=== PATIENT | female | born 1980 | race Caucasian/White ===

== ENCOUNTER 2016-02-28 21:41 | Emergency (ER) | payer OTHER ==
--- NOTE | 2016-02-28 22:07 | UC ---
Dizzy HPI HPI Summary: The patient comes in today for: 1. Dizziness (vertigo and near syncope): Onset:2 hours ago. Palliative/provocative: Head movements makes it worse. Quality: Vertigo and near-syncope (x 3). 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 Severity: Present at this time 5/10 Time: Comes and goes. Associated symptoms: Chest pain: None. Dyspnea: None. Nausea: Present. Numbness: She had this run down her left arm for about 10 seconds. Fevers: None. CAD risk: Just out of ICU due to infection in her heart and lungs. 2 cardiac arrests and 3 blocked arteries. HTN: (+), DM: (+), smoker: (+). 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 Malignant melanoma. Endocrine History Of: Reports: Diabetes - TYPE 2 WITH INSULIN CONTROL, Thyroid Disease - THYROID NODULE, Dyslipidemia Denies: Hyperthyroidism, Hypothyroidism Cardiovascular History Of: Reports: Cardiac Disorders - 3 BLOCKED ARTERIES, Cardiac arrest x 2., Hypertension - CONTROL WITH MED, Myocardial Infarction Denies: Pacemaker/ICD, Congestive Heart Failure, Atrial Fibrillation, Deep Vein Thrombosis, Bleeding Disorders Respiratory History Of: Reports: COPD - smoker, Asthma - NO INHALER BUT HAS A NEBULIZER Denies: Bronchitis, Pneumonia, Pulmonary Embolism GI/ History Of: Reports: Gastroesophageal Reflux, Renal Disease - ESRD on home peritoneal dialysis Denies: Ulcer, Gastrointestinal Bleed Neurological History Of: Denies: TIA Psychological History Of: Reports: Anxiety - ON MEDICATION FOR, Depression - ON MEDICATION FOR, Bipolar Disorder Cancer History Of: Denies: Lung Cancer, Colorectal Cancer, Breast Cancer, Prostate Cancer, Cervical Cancer Other History Of: Anticoagulant Therapy - Aspirin. Negative For: HIV, Hepatitis B, Hepatitis C - Surgical History Surgical History: Yes Surgery Procedure, Year, and Place: LT EYE REMOVED 2011-HAS PROSTHETIC EYE( ORBITS DONE 06/[address] STRONG);. CARDIAC CATH 2013-NO STENTS; [facility]. 2013 LT WRIST FISTULA PLACEMENT; [facility]. 2013 HEMODIALYSIS CATH RT CHEST WALL;. PERITONEAL DIALYSIS CATH 03/2014; REMOVED 08/2015 AT [facility] [place]. 2012 MELANOMA REMOVED FROM VULVA, X4, 2 AT [facility] AND 2 AT [facility]. 05/2015 RT GREAT TOE AMPUTATION, [facility] [place] 10/22/2015 PLACEMENT RIGHT JUGULAR TESIO HEMODIALYSIS CATHETER, [facility] [place] - Family History Known Family History: Positive: Cardiac Disease - father [place] at 42 y/o, Hypertension - Social History Occupation: Unemployed Alcohol Use: None Substance Use Type: None Substance Use Comment - Amount & Last Used: prescriptions Smoking Status (MU): Current Every Day Smoker Type: Cigarettes Amount Used/How Often: 1/2 PPD Length of Time of Smoking/Using Tobacco: 17 YEARS Have You Smoked in the Last Year: Yes Household Exposure Type: Cigarettes - Immunization History Most Recent Influenza Vaccination: Fall 2015 Most Recent Tetanus Shot: 2013 Most Recent Pneumonia Vaccination: Fall 2015 Review of Systems Constitutional: Negative Skin: Negative Eyes: Negative ENT: Negative Respiratory: Negative Cardiovascular: Negative Gastrointestinal: Negative Genitourinary: Negative Motor: Negative All Other Systems Reviewed And Are Negative: Yes Physical Exam Triage Information Reviewed: Yes Appearance: Well-Appearing, No Pain Distress, Obese Vital Signs: Initial Vital Signs Temp 97.9 F 02/28/16 21:49 Pulse 106 02/28/16 21:49 Resp 16 02/28/16 21:49 BP 90/59 02/28/16 21:49 Pulse Ox 93 02/28/16 21:49 Vital Signs Reviewed: Yes Eyes: Positive: Conjunctiva Clear. Negative: Discharge ENT: Positive: Hearing grossly normal. Negative: Pharyngeal erythema, Nasal congestion, Nasal drainage, TM bulging, TM dull, TM red, Tonsillar swelling, Tonsillar exudate Dental: Negative: Gross Decay/Caries @, Dental Fracture @ Neck: Positive: Supple, Nontender, No Lymphadenopathy. Negative: Nuchal Rigidity Respiratory: Positive: Lungs clear, No respiratory distress, No accessory muscle use. Negative: Rhonchi, Wheezing Cardiovascular: Positive: RRR, No Murmur Abdomen Description: Positive: Nontender, No Organomegaly, Soft. Negative: Distended, Guarding Musculoskeletal: Negative: Strength Intact, ROM Intact Neurological: Positive: Alert. Negative: Muscle Tone Normal Psychological: Negative: Normal Response To Family, Age Appropriate Behavior Skin: Negative: rashes, breakdown Dizzy Course/Dx - Course Course Of Treatment: The patient was told that with her medical history and her having three near-syncopal episodes, that my recommendation was for her to go to the ER. She agreed, but would not take an ambulance. - Differential Dx/Diagnosis Provider Diagnoses: Near syncope. Vertigo. Hx of DM, smoker, CAD (2 cardiac arrests), Discharge - Discharge Plan Condition: Stable Disposition: AGAINST MEDICAL ADVICE Additional Instructions: Go directly to the ER. Patient was advised to go to ER via ambulance, but declined.
[2016-02-28 22:23] VITALS: BP 88/59
== END 2016-02-28 22:25 | disposition left against medical advice (07) ==
LOC: UCEAST 21:41
DX: R55 Syncope and collapse (principal); R42 Dizziness and giddiness; E11.9 Type 2 diabetes mellitus without complications; F17.210 Nicotine dependence, cigarettes, uncomplicated; E78.5 Hyperlipidemia, unspecified; I25.2 Old myocardial infarction; Z79.4 Long term (current) use of insulin; J44.9 Chronic obstructive pulmonary disease, unspecified; J45.909 Unspecified asthma, uncomplicated
CPT/HCPCS: 93005

== ENCOUNTER 2016-02-28 22:41 | Emergency (ER) | payer OTHER ==
--- NOTE | 2016-02-29 00:58 | ED ---
Danny Palacio Erika, scribed for Leonard Sanchez MD on 02/29/16 at 0040 . Dizziness - HPI Summary HPI Summary: Patient is a 35-year-old female presenting to the ED with a CC of dizziness. Pt reports that at 20:00 tonight, she became dizzy and lightheaded, and "went cross -eyed." At 21:00, pt became nauseated, and reports multiple near-syncopal episodes. Pt checked her blood sugar, which she found to be 204. She ate food, which did not alleviate her symptoms. Pt was seen at [facility], and states her BP was 80/50 there. Now, pt denies dizziness and nausea, but states she has a frontal headache. - History Of Current Complaint Chief Complaint: EDChestPainROMI Stated Complaint: DIZZY,LOW BLOOD PRESSURE,NAUSEA/CONV CARE Time Seen by Provider: 02/29/16 00:27 Hx Obtained From: Patient Timing: Minutes Severity Initially: Moderate Severity Currently: Mild Character: Lightheaded, Dizzy Associated Signs And Symptoms: Positive: Nausea - Allergies/Home Medications Allergies/Adverse Reactions: Allergies Allergy/AdvReac Type Severity Reaction Status Date / Time Adhesive Tape Allergy Blisters Verified 01/26/16 20:41 Codeine Allergy Hives Verified 01/26/16 20:41 Ropinirole [From Requip] Allergy Hives Verified 01/26/16 20:41 Erythromycin AdvReac "DOESN'T Verified 01/26/16 20:41 WORK" Niacin AdvReac Flushing Verified 01/26/16 20:41 PMH/Surg Hx/FS Hx/Imm Hx Endocrine/Hematology History: Reports: Hx Anticoagulant Therapy - Aspirin., Hx Blood Transfusions, Hx Diabetes - TYPE 2 WITH INSULIN CONTROL, Hx Thyroid Disease - THYROID NODULE, Hx Anemia - HISTORY OF -NO PROBLEMS CURRENTLY- BLOOD TRANSFUSION IN 2013 Cardiovascular History: Reports: Hx Angina, Hx Cardiac Arrest - in 2013 with CPR, Hx Coronary Artery Disease - STATES HAS 3 BLOCKED ARTERIES, Hx Hypercholesterolemia, Hx Hypertension - CONTROL WITH MED, Hx Myocardial Infarction, Other Cardiovascular Problems/Disorders - [facility]- CARDIOLOGY AT [place]/CARDIAC ARREST 2013-DURING HEMODIALYSIS Denies: Hx Congestive Heart Failure, Hx Deep Vein Thrombosis, Hx Pacemaker/ ICD, Hx Valvular Heart Disease Respiratory History: Reports: Hx Asthma - NO INHALER BUT HAS A NEBULIZER, Hx Chronic Obstructive Pulmonary Disease (COPD) - smoker Denies: Hx Lung Cancer, Hx Pneumonia, Hx Pulmonary Embolism, Hx Sleep Apnea - NOT TESTED GI History: Reports: Hx Gastroesophageal Reflux Disease, Other GI Disorders - GASTROPARESIS - TAKING OMEPRAZOLE Denies: Hx Gastrointestinal Bleed, Hx Ulcer History: Reports: Hx Chronic Renal Failure, Hx Dialysis - PERITONEAL BUT DOES HAVE FISTULA ON LEFT ARM, Hx Renal Disease - ESRD on home peritoneal dialysis , Other Problems/Disorders - ESRD- URINATES A SMALL AMOUNT Musculoskeletal History: Reports: Hx Arthritis - BACK, HIPS, Hx Back Problems - Sciatica and Herniated L3 disk Sensory History: Reports: Hx Eye Prosthesis - Left eye, Hx Legally Blind - Left eye; 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, Hx Vision Problem Denies: Hx Contacts or Glasses, Hx Hearing Aid Opthamlomology History: Reports: Hx Eye Prosthesis - Left eye, Hx Legally Blind - Left eye; 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 CARDIAC CATH 2013-NO STENTS; [facility]. 2013 LT WRIST FISTULA PLACEMENT; [facility]. 2013 HEMODIALYSIS CATH RT CHEST WALL;. PERITONEAL DIALYSIS CATH 03/2014; REMOVED 08/2015 AT [facility] [place]. 2013 MELANOMA REMOVED FROM VULVA, X4, 2 AT [facility] AND 2 AT [facility]. 05/2015 RT GREAT TOE AMPUTATION, [facility] [place]. 10/22/2015 PLACEMENT RIGHT JUGULAR TESIO HEMODIALYSIS CATHETER, [facility] Anesthesia Reactions: Yes - Nausea, WAKES UP VOMITING - Immunization History Date of Tetanus Vaccine: UTD Date of Influenza Vaccine: 10/10/15 Infectious Disease History: Yes Infectious Disease History: Denies: Hx Hepatitis, Hx Human Immunodeficiency Virus (HIV), Hx Shingles, Hx Tuberculosis, History Other Infectious Disease, Traveled Outside the [place] in Last 30 Days - Family History Known Family History: Positive: Cardiac Disease - father [place] at 42 y/o, Hypertension - Social History Alcohol Use: None Hx Substance Use: No Substance Use Type: Reports: None Substance Use Comment - Amount & Last Used: prescriptions Hx Tobacco Use: Yes Smoking Status (MU): Current Every Day Smoker Type: Cigarettes Amount Used/How Often: 1/2 PPD Length of Time of Smoking/Using Tobacco: 17 YEARS Have You Smoked in the Last Year: Yes Review of Systems Constitutional: Other - Low BP Positive: Nausea Neurological: Other - Dizzy, lightheaded, near-syncope Positive: Headache All Other Systems Reviewed And Are Negative: Yes Physical Exam Triage Information Reviewed: Yes Vital Signs On Initial Exam: Initial Vitals Temp Pulse Resp BP Pulse Ox 97.9 F 96 20 97/53 92 02/28/16 22:55 02/28/16 22:55 02/28/16 22:55 02/28/16 22:55 02/28/16 22:55 Vital Signs Reviewed: Yes Appearance: Positive: Well-Appearing, No Pain Distress, Obese Skin: Positive: Warm Eyes: Positive: EOMI, HILLARY ENT: Positive: Hearing grossly normal Neck: Positive: Supple Respiratory/Lung Sounds: Positive: Clear to Auscultation, Breath Sounds Present Cardiovascular: Positive: Normal Abdomen Description: Positive: Nontender, Soft Bowel Sounds: Positive: Present Neurological: Positive: Sensory/Motor Intact, Alert, Oriented to Person Place, Time, Normal Gait Psychiatric: Positive: Normal Diagnostics - Vital Signs Vital Signs Temp Pulse Resp BP Pulse Ox 02/28/16 22:55 97.9 F 96 20 97/53 92 - Laboratory Lab Statement: Any lab studies that have been ordered have been reviewed, and results considered in the medical decision making process. - EKG 23:00 Cardiac Rate: NL - at 99 bpm EKG Rhythm: Sinus Rhythm ST Segment: Normal, Non-Specific EKG Interpretation: Non-specific T abnormalities Re-Evaluation - Re-Evaluation First Eval Re-Evaluation Time: 01:05 Change: Improved Comment: Pt requests discharge, declines bloodwork symptoms resolved Dizzy Course/Dx - Course Assessment/Plan: A 35 y/o F presents to the ED with a CC of dizziness. EKG shows NSR with non-specific T changes. Pt declines bloodwork in the ED. Pt reports she feels improved and requests discharge, so will be discharged with follow up from her PCP. - Diagnoses Provider Diagnoses: dizziness, resolved Discharge - Discharge Plan Condition: Improved Disposition: HOME Patient Education Materials: Dizziness (ED) Referrals: Aishwarya Solis MD [Primary Care Provider] - The documentation as recorded by the Danny sexton Erika accurately reflects the service I personally performed and the decisions made by me, Leonard Sanchez MD.
[2016-02-29] MEDS ORDERED: NS 0.9% 500 ML* 500 ML IV SCH (01:00)
[2016-02-29 01:01] VITALS: BP 103/69
== END 2016-02-29 01:09 | disposition home or self-care (01) ==
LOC: ED 22:41
DX: R42 Dizziness and giddiness (principal); F17.210 Nicotine dependence, cigarettes, uncomplicated; R11.0 Nausea; R51 Headache; R55 Syncope and collapse; E11.9 Type 2 diabetes mellitus without complications; E78.5 Hyperlipidemia, unspecified; I25.2 Old myocardial infarction; Z79.4 Long term (current) use of insulin; J44.9 Chronic obstructive pulmonary disease, unspecified; J45.909 Unspecified asthma, uncomplicated
CPT/HCPCS: 93005; 99282

== ENCOUNTER 2016-05-17 16:11 | Inpatient (IN) | payer OTHER ==
[2016-05-17 17:09] LABS: Hematocrit 43 % (35-47); Hemoglobin 13.9 g/dl (12.0-16.0); Mean Corpuscular HGB Conc 33 g/dl (31-36); Mean Corpuscular Hemoglobin 30 pg (27-31); Mean Corpuscular Volume 92 fL (80-97); Mean Platelet Volume 10 um3 (7.4-10.4); Red Blood Count 4.64 10^6/ul (4.0-5.4); Red Cell Distribution Width 15 % (10.5-15); White Blood Count 14.9 10^3/ul (3.5-10.8)
[2016-05-17 17:22] LABS: BUN/Creatinine Ratio 7.8 (8-20); C Reactive Protein 36.53 mg/L (< 5.00); Calcium 9.4 mg/dL (8.6-10.3); EGFR African American 16.3 (>60); EGFR Non-African American 12.7 (>60); Potassium 3.6 mmol/L (3.5-5.0)
[2016-05-17] MEDS ORDERED: Ondansetron INJ* 2 MG/ML VIAL IV ONE (17:28)
[2016-05-17] MEDS ORDERED: Vancomycin(*) 2,000 MG in NS 0.9% 250 ML* 250 ML IVPB ONE (17:28)
[2016-05-17] MEDS ORDERED: Piperac/Tazob 3.375 gm in NS* 3.375 GM/100 ML BAG IVPB ONE (17:28)
[2016-05-17] MEDS ORDERED: Morphine INJ* 4 MG/ML 1 ML CARPUJECT IV ONE (17:28)
[2016-05-17] MEDS ORDERED: Insulin REGULAR(*) 1 UNITS UNIT IV PUSH ONE (17:29)
[2016-05-17] MEDS ORDERED: Insulin GLARGINE(*) 1 UNITS UNIT SUBCUT ONE (17:29)
--- NOTE | 2016-05-17 17:41 | ED ---
Lower Extremity - HPI Summary HPI Summary: The patient is a 35 year old female presenting to the ED for complaint of right 2nd toe pain x1 mo worse in past 3 days. Started as black spot on toe increasing in size. Admits to redness of right foot. Describes constant burning with intermittent sharp pain worse with touch, movement, or weight bearing. Admits to associated chills, nausea, vomiting, cough with intermittent clear sputum, wheezing. Denies fever, nasal symptoms, sore throat, shortness of breath , chest pain, abdominal pain. 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 FH father HTN, DM, CAD; mother and all siblings with DM. PCP Will. Rn Cardiology Dr. Marrufo. Ortho Dr. Garcia. Gen Surg Dr. Salinas. SH: Current smoker. No recreational drug use. - History of Current Complaint Chief Complaint: EDExtremityLower Stated Complaint: BLACK TOE/FOOT PAIN Time Seen by Provider: 05/17/16 16:37 Hx Last Menstrual Period: 01/25/16 Pain Intensity: 8 - Allergies/Home Medications Allergies/Adverse Reactions: Allergies Allergy/AdvReac Type Severity Reaction Status Date / Time Adhesive Tape Allergy Blisters Verified 01/26/16 20:41 Codeine Allergy Hives Verified 01/26/16 20:41 Ropinirole [From Requip] Allergy Hives Verified 01/26/16 20:41 Erythromycin AdvReac "DOESN'T Verified 01/26/16 20:41 WORK" Niacin AdvReac Flushing Verified 01/26/16 20:41 PMH/Surg Hx/FS Hx/Imm Hx Endocrine/Hematology History: Reports: Hx Anticoagulant Therapy - Aspirin., Hx Blood Transfusions, Hx Diabetes - TYPE 2 WITH INSULIN CONTROL, Hx Thyroid Disease - THYROID NODULE, Hx Anemia - HISTORY OF -NO PROBLEMS CURRENTLY- BLOOD TRANSFUSION IN 2013 Cardiovascular History: Reports: Hx Angina, Hx Cardiac Arrest - in 2013 with CPR, Hx Coronary Artery Disease - STATES HAS 3 BLOCKED ARTERIES, Hx Hypercholesterolemia, Hx Hypertension - CONTROL WITH MED, Hx Myocardial Infarction, Other Cardiovascular Problems/Disorders - [facility]- CARDIOLOGY AT [place]/CARDIAC ARREST 2013-DURING HEMODIALYSIS Denies: Hx Congestive Heart Failure, Hx Deep Vein Thrombosis, Hx Pacemaker/ ICD, Hx Valvular Heart Disease Respiratory History: Reports: Hx Asthma - NO INHALER BUT HAS A NEBULIZER, Hx Chronic Obstructive Pulmonary Disease (COPD) - smoker Denies: Hx Lung Cancer, Hx Pneumonia, Hx Pulmonary Embolism, Hx Sleep Apnea - NOT TESTED GI History: Reports: Hx Gastroesophageal Reflux Disease, Other GI Disorders - GASTROPARESIS - TAKING OMEPRAZOLE Denies: Hx Gastrointestinal Bleed, Hx Ulcer History: Reports: Hx Chronic Renal Failure, Hx Dialysis - PERITONEAL BUT DOES HAVE FISTULA ON LEFT ARM, Hx Renal Disease - ESRD on home peritoneal dialysis , Other Problems/Disorders - ESRD- URINATES A SMALL AMOUNT Musculoskeletal History: Reports: Hx Arthritis - BACK, HIPS, Hx Back Problems - Sciatica and Herniated L3 disk Sensory History: Reports: Hx Eye Prosthesis - Left eye, Hx Legally Blind - Left eye; 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, Hx Vision Problem Denies: Hx Contacts or Glasses Opthamlomology History: Reports: Hx Eye Prosthesis - Left eye, Hx Legally Blind - Left eye; 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 CARDIAC CATH 2013-NO STENTS; [facility]. 2013 LT WRIST FISTULA PLACEMENT; [facility]. 2013 HEMODIALYSIS CATH RT CHEST WALL;. PERITONEAL DIALYSIS CATH 03/2014; REMOVED 08/2015 AT [facility] [place]. 2013 MELANOMA REMOVED FROM VULVA, X4, 2 AT [facility] AND 2 AT [place]. 05/2015 RT GREAT TOE AMPUTATION, [facility] [place]. 10/22/2015 PLACEMENT RIGHT JUGULAR TESIO HEMODIALYSIS CATHETER, [facility] [place] Hx Anesthesia Reactions: Yes - Nausea, WAKES UP VOMITING - Immunization History Date of Tetanus Vaccine: UTD Date of Influenza Vaccine: 10/10/15 Infectious Disease History: Yes Infectious Disease History: Denies: Hx Hepatitis, Hx Human Immunodeficiency Virus (HIV), Hx Shingles, Hx Tuberculosis, History Other Infectious Disease, Traveled Outside the [place] in Last 30 Days - Family History Known Family History: Positive: Cardiac Disease - father [place] at 42 y/o, Hypertension - Social History Alcohol Use: None Hx Substance Use: No Substance Use Type: Reports: None Substance Use Comment - Amount & Last Used: prescriptions Hx Tobacco Use: Yes Smoking Status (MU): Current Every Day Smoker Type: Cigarettes Amount Used/How Often: 1/2 PPD Length of Time of Smoking/Using Tobacco: 17 YEARS Have You Smoked in the Last Year: Yes Review of Systems Positive: Chills. Negative: Fever Cardiovascular: Negative Negative: Palpitations, Chest Pain Positive: Cough. Negative: Shortness Of Breath Positive: Vomiting, Nausea. Negative: Abdominal Pain Positive: Arthralgia, Edema Positive: Rash Positive: Paresthesia, Numbness Psychological: Normal All Other Systems Reviewed And Are Negative: Yes Physical Exam Triage Information Reviewed: Yes Vital Signs On Initial Exam: Initial Vitals Temp Pulse Resp BP Pulse Ox 97.3 F 97 20 131/92 99 05/17/16 16:21 05/17/16 16:21 05/17/16 16:21 05/17/16 16:21 05/17/16 16:21 Vital Signs Reviewed: Yes Appearance: Positive: Well-Appearing, Pain Distress - moderate pain, Obese Skin: Positive: Warm, Skin Color Reflects Adequate Perfusion, Dry, Lymphangitis - right foot, Other - right great toe necrotic ulceration without purulence Head/Face: Positive: Normal Head/Face Inspection ENT: Positive: Hearing grossly normal, Other - oral mucosa moist Neck: Positive: Supple, Nontender, No Lymphadenopathy Respiratory/Lung Sounds: Positive: Breath Sounds Present, Wheezes - mild expiratory bilaterally. Negative: Rales, Rhonchi Cardiovascular: Positive: Normal, RRR, S1, S2. Negative: Murmur, Rub, Tachycardia, Leg Edema Left, Leg Edema Right Abdomen Description: Positive: Nontender, No Organomegaly, Soft. Negative: Distended, Guarding, Peritoneal Signs Bowel Sounds: Positive: Present Musculoskeletal: Positive: Pain @ - right 2nd toe and 1-3rd MT Neurological: Positive: Alert, Oriented to Person Place, Time, Reflexes Intact - achilles 2+, Facial Symmetry, Speech Normal, Other - diminished sensation bilateral toes and feet Psychiatric: Positive: Normal AVPU Assessment: Alert - [place] Coma Scale Coma Scale Total: 15 Diagnostics - Vital Signs Vital Signs Temp Pulse Resp BP Pulse Ox 05/17/16 17:00 90 148/94 94 05/17/16 16:38 95 98 05/17/16 16:35 142/98 05/17/16 16:21 97.3 F 97 20 131/92 99 - Laboratory Lab Results: Lab Results 05/17/16 05/17/16 Range/Units 16:50 16:50 WBC 14.9 H (3.5-10.8) 10^3/ul RBC 4.64 (4.0-5.4) 10^6/ul Hgb 13.9 (12.0-16.0) g/dl Hct 43 (35-47) % MCV 92 (80-97) fL MCH 30 (27-31) pg MCHC 33 (31-36) g/dl RDW 15 (10.5-15) % Plt Count 266 (150-450) 10^3/ul MPV 10 (7.4-10.4) um3 Neut % (Auto) 84.4 H (38-83) % Lymph % (Auto) 9.1 L (25-47) % [place] % (Auto) 3.9 (1-9) % Eos % (Auto) 2.0 (0-6) % Baso % (Auto) 0.6 (0-2) % Absolute Neuts (auto) 12.6 H (1.5-7.7) 10^3/ul Absolute Lymphs (auto) 1.4 (1.0-4.8) 10^3/ul Absolute Monos (auto) 0.6 (0-0.8) 10^3/ul Absolute Eos (auto) 0.3 (0-0.6) 10^3/ul Absolute Basos (auto) 0.1 (0-0.2) 10^3/ul Absolute Nucleated RBC 0.01 10^3/ul Nucleated RBC % 0.1 ESR Pending Sodium 129 L (133-145) mmol/L Potassium 3.6 (3.5-5.0) mmol/L Chloride 92 L (101-111) mmol/L Carbon Dioxide 25 (22-32) mmol/L Anion Gap 12 H (2-11) mmol/L BUN 31 H (6-24) mg/dL Creatinine 3.99 H (0.51-0.95) mg/dL Est GFR ( Amer) 16.3 (>60) Est GFR (Non-Af Amer) 12.7 (>60) BUN/Creatinine Ratio 7.8 L (8-20) Glucose 613 H* (70-100) mg/dL Calcium 9.4 (8.6-10.3) mg/dL C-Reactive Protein 36.53 H (< 5.00) mg/L Result Diagrams: 05/17/16 16:50 05/17/16 16:50 Lab Statement: Any lab studies that have been ordered have been reviewed, and results considered in the medical decision making process. Lower Extremity Course/Dx - Course Assessment/Plan: Patient 35 female presenting for right 2nd toe pain. Afebrile not meeting septic critera therefore no blood cultures obtained. Labs demonstrate WBC 14.9, CRP 36.53, NA 129 (likey due to elevated BG), CL 92, BUN 31, Cr 3.99, glucose 613 AG 12. Compared with prior labs, renal function appears improved. X-ray of right foot pending. Suspicion of right 2nd toe osteomyelitis with lymphangitis, uncontrolled DM II, ESRF on PD. Initiated Vancomycin, Zosyn, Lantus, Regular Insulin. Admission accepted by Dr. Dorsey. - Diagnoses Provider Diagnoses: Lymphangitis, Osteomyelitis of toe of right foot, Hyperglycemia due to type 2 diabetes mellitus, Acidosis, ESRD (end stage renal disease) on dialysis Discharge - Discharge Plan Condition: Fair Disposition: ADMITTED TO [facility]
[2016-05-17 18:02] LABS: Erythrocyte Sed Rate 72 mm/Hr (0-14)
--- NOTE | 2016-05-17 18:40 | RAD ---
Indication: Second toe osteomyelitis. 3 views of the right foot demonstrates amputation of the great toe. No fracture is noted. No evidence of lucency is noted to suggest osteomyelitis. IMPRESSION: Amputation of the first digit. No evidence of endosteal lysis is noted to suggest osteomyelitis.
[2016-05-17] MEDS ORDERED: NS 0.9% 250 ML* 250 ML ONE (18:53)
[2016-05-17] MEDS ORDERED: Vancomycin(*) 2,000 MG in NS 0.9% 500 ML* 500 ML IVPB ONE (18:57)
[2016-05-17] MEDS ORDERED: Dextrose 50% Syringe 50 ML* 25 GM/50 ML SYRINGE IV PUSH PRN (19:08)
[2016-05-17] MEDS ORDERED: Acetaminophen TAB* 325 MG PO PRN (19:08)
[2016-05-17] MEDS ORDERED: Vancomycin(*) 1,000 MG in NS 0.9% 250 ML* 250 ML IVPB SCH (19:09)
[2016-05-17] MEDS ORDERED: Albuterol 2.5 MG/3 ML NEB.SOL* (0.083%) INH PRN (19:13)
[2016-05-17] MEDS ORDERED: Vancomycin per Pharmacy* NOTE FOLLOW UP PRN (19:25)
[2016-05-17] MEDS: HYDROmorphone INJ* 1 MG/ML CARPUJECT SYRINGE IV SLOW PU PRN ×2 (20:10→20:20)
--- NOTE | 2016-05-17 20:22 | RAD ---
Indication: Cough. Single frontal view of the chest performed at 1946 hours was reviewed. Comparison is made with previous exam dated February 09, 2016. No mediastinal shift is noted. Heart is of normal size and configuration. Lung hernandez appear clear. This is improved since previous exam of February 09, 2016. IMPRESSION: NO ACTIVE CARDIOPULMONARY DISEASE IS NOTED.
[2016-05-17] MEDS ORDERED: Cefepime(*) 2 GM in NS 0.9% 50 ML* 50 ML IVPB SCH (21:30)
--- NOTE | 2016-05-17 21:48 | RAD ---
Indication: Gangrenous second toe. Ankle-brachial index on the right is 0.56. Ankle-brachial index of the right dorsalis pedis is 0.27. Ankle-brachial index on the left is 0.56. This is from the dorsalis pedis artery on the left. Waveforms on the right lower extremity in the posterior tibial and dorsalis pedis artery are monophasic. Waveforms in the left posterior tibial and dorsalis pedis are biphasic. IMPRESSION: Bilateral ankle brachial indexes 0.56 although waveforms of the right posterior tibial and dorsalis pedis arteries is monophasic.
--- NOTE | 2016-05-17 22:23 | RAD ---
Indication: Second toe osteomyelitis. Image sequences: Coronal T1, STIR, axial T1, STIR, sagittal T1, STIR images of the foot were obtained. Special attention was paid to the second digit. There is no evidence of bone marrow edema to suggest osteomyelitis. The patient is status post amputation of the first digit. No other bone or joint abnormality is noted. IMPRESSION: No evidence of bone marrow edema is noted to suggest osteomyelitis.
[2016-05-17] MEDS: Insulin GLARGINE(*) 1 UNITS UNIT SUBCUT SCH (22:24)
[2016-05-17] MEDS: Gabapentin CAP(*) 300 MG PO SCH (22:25)
[2016-05-17] MEDS: Heparin VIAL(*) 5000 UNITS/ML VIAL (FIVE THOUSAND) SUBCUT SCH (22:29)
[2016-05-17 22:33] LABS: BUN/Creatinine Ratio 7.5 (8-20); Calcium 9.1 mg/dL (8.6-10.3); EGFR African American 15.7 (>60); EGFR Non-African American 12.2 (>60); Potassium 3.3 mmol/L (3.5-5.0)
[2016-05-17] MEDS: NS 0.9% 1000 ML* 1,000 ML IV SCH (22:35)
[2016-05-17] MEDS ORDERED: Omeprazole CAP* 20 MG ONE (22:46)
[2016-05-17] MEDS: oxyCODONE/Acetamin 5/325 MG* TAB PO PRN (22:48)
[2016-05-17] MEDS: Omeprazole CAP* 20 MG PO SCH (22:49)
--- NOTE | 2016-05-17 23:00 | HP ---
HISTORY AND PHYSICAL: DATE OF ADMISSION: 05/17/16 PRIMARY CARE PROVIDER: Dr. Solis. ATTENDING PHYSICIAN WHILE IN THE HOSPITAL: Dr. Sebastien Garza* (report dictated by Luis Antonio Bell NP). CONSULTING [employer]IO TECHNICIAN: Dr. Marrufo. CONSULTING ORTHOPEDIST: Dr. Driver. CONSULTING ID SPECIALIST: Dr. Benavidez. CHIEF COMPLAINT: Right foot pain. HISTORY OF PRESENT ILLNESS: Ms. Wright is a 35-year-old female patient with multiple medical problems who comes in to the ER today stating that really for the last 4 weeks, she has had progressive worsening pain in her right second toe , much worse over the last 3 days. She has been having chills as well. In addition to this, she noted that the tip of her toe was becoming black and she was worried because the pain was not getting any better. So, she came in to the ED. She states that the toe had a chronic wound since around February; but over the last 4 weeks, has gotten progressively worse and in the last 3 days, it was much worse and then she was having chills and she has noticed that tip of the toe was becoming black and there was some redness streaking up the foot. She was concerned and came in to the hospital and she has noticed that she has been having some bloody discharge off and on from this toe as well. She also states that she has had a cough off and on since January, but it is no worse, but she denies having any shortness of breath. She denies any chest pain. She says actually she had a recent cardiac catheterization a couple of weeks ago over at [place] as well. She tried to get in with her medicaid specialist , Dr. Salinas, today, but unfortunately, this was unable to happen. So, she came to the ER, was evaluated, ultimately found to have a high white count, found to have a high ESR. There was concern for an infection in this toe. Hospitalist service was asked to evaluate for admission. PAST MEDICAL HISTORY: Significant for: 1. Melanoma. 2. End-stage renal disease, on peritoneal dialysis. 3. Diabetes. 4. Neuropathy. 5. CAD. 6. Hypertension. 7. Hyperlipidemia. 8. Peripheral vascular disease. 9. Asthma. 10. GERD. 11. Depression. 12. Anxiety. PAST SURGICAL HISTORY: 1. She had a heart catheterization on the . No intervention according to the patient. 2. She has had a PD catheter placement and removal. 3. She has had skin excisions. 4. She has had a right great toe amputation. 5. She had a left eye prosthesis. HOME MEDICATIONS: 1. Aspirin 81 mg daily. 2. Lantus 80 units subcu b.i.d. 3. Insulin aspart sliding scale. 4. Zebeta 10 mg p.o. daily. 5. Amlodipine 10 mg daily. 6. Ventolin 1 to 2 puffs inhaled every 6 hours as needed. 7. Prilosec 20 mg daily. 8. Imdur 60 mg daily. 9. Ventolin 2.5 mg inhaled every 6 hours as needed. 10. Lipitor 80 mg daily. 11. Cozaar 100 mg p.o. daily. 12. Neurontin 300 mg p.o. b.i.d. ALLERGIES TO MEDICATIONS: Include TAPE, CODEINE, REQUIP, ERYTHROMYCIN, and NIACIN. FAMILY HISTORY: Her mother and father are both diabetics. SOCIAL HISTORY: She is a pack a day smoker for about 20 years. She does not drink alcohol. She has a fiance, who is also surrogate decision maker. REVIEW OF SYSTEMS: There is no documented fever. She denied any significant weight change. There was no double vision. There is no ear discharge. She denies having any rhinorrhea or sore throat. She denied any shortness of breath or any orthopnea. No weight change. She denies having any abdominal pain or any nausea or vomiting. She did have some dry heaves at times over the last couple weeks, but those are now subsided and she denies any abdominal pain and denies having any loss of consciousness, skin ulcerations, or any pruritus. Review of 14 systems completed, all others negative. PHYSICAL EXAMINATION GENERAL: At this time, Ms. Wright is a 35-year-old female patient. She is sitting in the ER stretcher. She does not appear to be in any acute distress. VITAL SIGNS: Blood pressure 151/87, pulse 84, respirations 18, O2 sat 98%, temperature 97.3. HEENT: Head is atraumatic and normocephalic. Eyes: EOMs are intact. Sclerae anicteric and not pale. Throat: Oral mucosa appeared to be dry. No oropharyngeal erythema. NECK: Supple. LUNGS: Clear to auscultation bilaterally. No wheezes, rales, or rhonchi. They were diminished. HEART: Sounds S1, S2. Regular rate and rhythm. No murmurs, rubs, or gallops. ABDOMEN: Soft, flat, and nontender. She did have a peritoneal dialysis catheter which the site appeared to be clean, dry, and intact. No erythema. EXTREMITIES: Pulses were diminished in the lower extremities. She did have sensation intact, but it was decreased. She does have a slight footdrop to the left lower extremity, which is not new for her. Upper extremities, she has 5/5 strength. NEUROLOGIC: She is awake, alert, and oriented x3. Tongue midline. Neuro Ophthalmologist were equal. She had no gross focal deficits. SKIN: Intact with the exception she has got an area on the second right toe that does have what appears to be necrotic tissue just to the tip of it. I do not see any obvious ulcer or discharge from this. LABORATORY DATA AND DIAGNOSTIC STUDIES: Today revealed a WBC of 14.9, RBC of 4.64, hemoglobin 13.9, hematocrit of 43, platelet count of 266. Sodium 129, potassium 3.6, chloride of 92, bicarb of 25, BUN 31, creatinine of 3.99, glucose 613, CRP of 36. She had a foot x-ray, which showed amputation of the first digit, no evidence of osteolysis is noted to suggest osteomyelitis. Old medical records were reviewed. ASSESSMENT AND PLAN: Ms. Wright is a 35-year-old female patient with multiple medical problems coming in to the ER today with complaints of right foot pain and worsening right second toe ulcer. She was evaluated here in the ER. We were asked to evaluate for admission. She will be admitted under inpatient status for: 1. Right second toe wound with necrosis: I suspect this is probably osteomyelitis here. Her last A1c was 17.6. She is a very poorly controlled diabetic and she has multiple complications related to her diabetes. I do think though she deserves an MRI, blood cultures. We will go ahead and put her on vanco and cefepime. I am going to get an EKG and a chest x-ray as she may require amputation of this digit or I and D's and we will hydrate her overnight with normal saline at 100 an hour and we will continue to follow her closely. 2. Diabetes: Multiple complications and hyperglycemia. Her sugar was 613. She received her Lantus today and IV insulin. We will go ahead and check her sugars a.c. and h.s. and we will continue her Lantus and we will titrate the Lantus to effect and her sliding scale to effect. She does not appear to be in diabetic ketoacidosis. I will repeat her BNP later tonight. 3. Hyponatremia: This is probably pseudohyponatremia related to the blood sugar. We will follow. 4. Melanoma: Follow with her primary. 5. End-stage renal disease: I did touch base with Dr. Marrufo, who will be evaluating the patient. We will skip dialysis tonight as she does appear to be on the dry side. 6. Neuropathy: We will continue her current medical regimen. 7. Coronary artery disease: She is on aspirin, statin, and a beta-josse. We will continue. I am going to try to get the cath report from [place]. 8. Hypertension: Continue meds as prescribed. 9. Hyperlipidemia: Continue meds as prescribed. 10. History of peripheral vascular disease: I will go ahead and get WILLIAM and we will continue the aspirin, statin therapy. 11. Asthma: We will continue p.r.n. albuterol. 12. Gastroesophageal reflux disease: Continue PPI therapy. 13. Depression and anxiety: Continue meds as prescribed. 14. DVT prophylaxis: She is high risk. She will be placed on heparin subcu. 15. Code status: Full code. 16. Fluids, electrolytes, and nutrition: She can have a consistent carbohydrate diet. TIME SPENT: Time spent on the admission was approximately 80 minutes; greater than half the time was spent [id number] with the patient obtaining my history and physical, other half the time spent going over the plan of care with the patient and implementing plan of care. I did discuss the plan of care with my attending, Dr. Garza; he is in agreement. LUIS ANTONIO BELL NP CC: Dr. Solis; Dr. Marrufo; Dr. Driver; Dr. Benavidez * [id number]/[facility] #: [id number] [facility]
[2016-05-18] MEDS: HYDROmorphone INJ* 1 MG/ML CARPUJECT SYRINGE IV SLOW PU PRN ×3 (00:32→18:38)
[2016-05-18] MEDS ORDERED: Vancomycin Random Level* NOTE FOLLOW UP ONE (06:00)
[2016-05-18] MEDS: Heparin VIAL(*) 5000 UNITS/ML VIAL (FIVE THOUSAND) SUBCUT SCH ×3 (06:03→20:51)
[2016-05-18 07:00] LABS: Hematocrit 44 % (35-47); Hemoglobin 14.4 g/dl (12.0-16.0); Mean Corpuscular HGB Conc 33 g/dl (31-36); Mean Corpuscular Hemoglobin 31 pg (27-31); Mean Corpuscular Volume 93 fL (80-97); Mean Platelet Volume 9 um3 (7.4-10.4); Red Cell Distribution Width 16 % (10.5-15); White Blood Count 14.2 10^3/ul (3.5-10.8)
[2016-05-18 07:16] LABS: BUN/Creatinine Ratio 7.2 (8-20); Calcium 8.9 mg/dL (8.6-10.3); EGFR Non-African American 11.7 (>60); Potassium 3.7 mmol/L (3.5-5.0)
[2016-05-18 07:18] LABS: Vancomycin Random 28.9 mcg/mL
[2016-05-18] MEDS ORDERED: Dextrose 50% Syringe 50 ML* 25 GM/50 ML SYRINGE IV PUSH PRN (09:22)
[2016-05-18] MEDS: Ondansetron INJ* 2 MG/ML VIAL IV PRN (09:33)
[2016-05-18] MEDS: Insulin GLARGINE(*) 1 UNITS UNIT SUBCUT SCH ×2 (10:42→20:51)
[2016-05-18] MEDS: Insulin LISPRO* 1 UNITS UNIT SUBCUT SCH ×7 (10:43→20:52)
[2016-05-18] MEDS: Gabapentin CAP(*) 300 MG PO SCH ×2 (10:45→20:52)
[2016-05-18] MEDS: amLODIPine TAB* 5 MG PO SCH (10:46)
[2016-05-18] MEDS: Isosorbide Mononitrate ER TAB* 60 MG PO SCH (10:46)
[2016-05-18] MEDS: BISOPROLOL 5 MG PO SCH (10:46)
[2016-05-18] MEDS: Losartan TAB* 25 MG PO SCH (10:46)
[2016-05-18] MEDS: Aspirin Low Dose CHEW TAB* 81 MG PO SCH (10:46)
[2016-05-18] MEDS: NS 0.9% 1000 ML* 1,000 ML IV SCH (11:02)
--- NOTE | 2016-05-18 12:31 | PN ---
Progress Note - Progress Note SOAP: Subjective: [35 y/o female admitted with possible osetomyelitis R 2nd toe, uncontrolled DM II, ESRD 05/17/2016. Patient denies pain, resting comfortably, VSS overnight. ] Objective: [General- Well appearing, NAD, sitting comfortably. MSK- R foot with 1st toe surgically absent, no LAD, lymphatic streaking, erythema noted on foot. + black DIP R 2nd toe with full ROM, minimal erythema surrounding eschar with no spread, no tenderness to touch throughout foot, PT 2+ , DP 1+ R foot, + DF/PF. Vital Signs Temp 98.2 F 05/18/16 12:27 Pulse 91 05/18/16 07:25 Resp 16 05/18/16 10:45 BP 135/69 05/18/16 07:25 Pulse Ox 92 05/18/16 09:37 Intake & Output 05/17/16 05/18/16 05/18/16 18:59 06:59 18:59 Intake Total 100 555 432 Balance 100 555 432 Weight 238 lb 216 lb 12.8 oz Intake: IV Fluids 100 505 432 NS (0.9%) 505 432 IVPB 50 ABX - CEFEPIME 50 Oral 0 Other: # Bowel Movements 0 # Voids 0 Laboratory Results - last 24 hr 05/17/16 05/17/16 05/17/16 16:50 16:50 16:50 WBC 14.9 H RBC 4.64 Hgb 13.9 Hct 43 MCV 92 MCH 30 MCHC 33 RDW 15 Plt Count 266 MPV 10 Neut % (Auto) 84.4 H Lymph % (Auto) 9.1 L Yancey % (Auto) 3.9 Eos % (Auto) 2.0 Baso % (Auto) 0.6 Absolute Neuts (auto) 12.6 H Absolute Lymphs (auto) 1.4 Absolute Monos (auto) 0.6 Absolute Eos (auto) 0.3 Absolute Basos (auto) 0.1 Absolute Nucleated RBC 0.01 Nucleated RBC % 0.1 ESR 72 H INR (Anticoag Therapy) Sodium 129 L Potassium 3.6 Chloride 92 L Carbon Dioxide 25 Anion Gap 12 H BUN 31 H Creatinine 3.99 H Est GFR ( Amer) 16.3 Est GFR (Non-Af Amer) 12.7 BUN/Creatinine Ratio 7.8 L Glucose 613 H* POC Glucose (mg/dL) Hemoglobin A1c 15.5 H Calcium 9.4 C-Reactive Protein 36.53 H Random Vancomycin 05/17/16 05/18/16 05/18/16 22:08 04:07 06:30 WBC 14.2 H RBC 4.70 Hgb 14.4 Hct 44 MCV 93 MCH 31 MCHC 33 RDW 16 H Plt Count 278 MPV 9 Neut % (Auto) 84.8 H Lymph % (Auto) 8.0 L Yancey % (Auto) 3.9 Eos % (Auto) 2.3 Baso % (Auto) 1.0 Absolute Neuts (auto) 12.0 H Absolute Lymphs (auto) 1.1 Absolute Monos (auto) 0.6 Absolute Eos (auto) 0.3 Absolute Basos (auto) 0.1 Absolute Nucleated RBC 0 Nucleated RBC % 0 ESR INR (Anticoag Therapy) Sodium 131 L Potassium 3.3 L Chloride 93 L Carbon Dioxide 26 Anion Gap 12 H BUN 31 H Creatinine 4.14 H Est GFR ( Amer) 15.7 Est GFR (Non-Af Amer) 12.2 BUN/Creatinine Ratio 7.5 L Glucose 522 H* POC Glucose (mg/dL) 292 H Hemoglobin A1c Calcium 9.1 C-Reactive Protein Random Vancomycin 05/18/16 05/18/16 05/18/16 06:30 06:30 08:03 WBC RBC Hgb Hct MCV MCH MCHC RDW Plt Count MPV Neut % (Auto) Lymph % (Auto) Yancey % (Auto) Eos % (Auto) Baso % (Auto) Absolute Neuts (auto) Absolute Lymphs (auto) Absolute Monos (auto) Absolute Eos (auto) Absolute Basos (auto) Absolute Nucleated RBC Nucleated RBC % ESR INR (Anticoag Therapy) 0.90 Sodium 135 Potassium 3.7 Chloride 97 L Carbon Dioxide 28 Anion Gap 10 BUN 31 H Creatinine 4.30 H Est GFR ( Amer) 15.0 Est GFR (Non-Af Amer) 11.7 BUN/Creatinine Ratio 7.2 L Glucose 267 H POC Glucose (mg/dL) 263 H Hemoglobin A1c Calcium 8.9 C-Reactive Protein Random Vancomycin 28.9 ] MRI- negative for osteo Assessment: [- RIGHT 2nd toe chronic wound - Poorly control DM - ESRD ] Plan: [- ID consult- likely non-operative, continue to follow with ABX - cefepime - Follow up with Dr. Garcia as outpatient - DM management - Ortho to contine to follow Active Medications Generic Name Dose Route Start Last Admin Trade Name Freq PRN Reason Stop Dose Admin Acetaminophen 650 mg 05/17/16 19:08 Tylenol Tab* PO Q4H PRN FEVER/PAIN Albuterol 2.5 mg 05/17/16 19:13 Ventolin 2.5 Mg/3 Ml Neb.Kaylynn* INH Q6H PRN SHORTNESS OF BREATH Amlodipine Besylate 10 mg 05/18/16 09:00 05/18/16 10:46 Norvasc Tab* PO 10 mg DAILY NICOLASA Administration Aspirin 81 mg 05/18/16 09:00 05/18/16 10:46 Aspirin Low Dose Tab* PO 81 mg QAM NICOLASA Administration Atorvastatin Calcium 80 mg 05/18/16 17:00 Lipitor* PO 1700 NICOLASA Bisoprolol Fumarate 10 mg 05/18/16 09:00 05/18/16 10:46 Zebeta Tab* PO 10 mg DAILY NICOLASA Administration Dextrose 12.5 gm 05/18/16 09:22 D50w Syringe 50 Ml* IV PUSH .FOR FS < 60 - SS PRN FS < 60 Gabapentin 300 mg 05/17/16 21:00 05/18/16 10:45 Neurontin Cap(*) PO 300 mg BID NICOLASA Administration Heparin Sodium (Porcine) 5,000 units 05/17/16 22:00 05/18/16 06:03 Heparin Vial(*) SUBCUT 5,000 units Q8HR NICOLASA Administration Hydromorphone HCl 1 mg 05/17/16 19:08 05/18/16 00:32 Dilaudid Iv* IV SLOW PU 1 mg Q4H PRN Administration PAIN Cefepime HCl 2 gm/ Sodium 50 mls @ 100 mls/hr 05/17/16 21:30 05/18/16 00:30 Chloride IVPB 100 mls/hr Q48H NICOLASA Administration Sodium Chloride 1,000 mls @ 100 mls/hr 05/17/16 19:15 05/18/16 11:02 Ns 0.9% 1000 Ml* IV 100 mls/hr PER RATE NICOLASA Administration Insulin Glargine 80 units 05/17/16 21:00 05/18/16 10:42 Lantus(*) SUBCUT 80 unit BID NICOLASA Administration Insulin Human Lispro 0 units 05/18/16 07:30 05/18/16 10:43 Humalog* SUBCUT 9 units AC NICOLASA Administration Protocol Insulin Human Lispro 0 units 05/18/16 11:30 05/18/16 10:44 Humalog* SUBCUT 1 units ACHS NICOLASA Administration Protocol Isosorbide Mononitrate 60 mg 05/18/16 09:00 05/18/16 10:46 Imdur Er Tab* PO 60 mg DAILY NICOLASA Administration Losartan Potassium 100 mg 05/18/16 09:00 05/18/16 10:46 Cozaar Tab* PO 100 mg DAILY NICOLASA Administration Mupirocin 1 applic 05/18/16 12:30 Bactroban 2 % Oint* TOPICAL DAILY NICOLASA Omeprazole 20 mg 05/17/16 23:00 05/17/16 22:49 Prilosec Cap* PO 20 mg QPM NICOLASA Administration Ondansetron HCl 4 mg 05/17/16 19:08 05/18/16 09:33 Zofran Inj* IV 4 mg Q6H PRN Administration NAUSEA Oxycodone/Acetaminophen 2 tab 05/17/16 19:36 05/17/16 22:48 Percocet 5/325 Tab* PO 2 tab Q4H PRN Administration PAIN Pharmacy Consult 1 note 05/17/16 19:25 Vancomycin Per Pharmacy* FOLLOW UP . PRN PER PROTOCOL Pharmacy Consult 1 note 05/19/16 06:00 Vancomycin Random Level* FOLLOW UP 05/19/16 06:01 ONCE ONE ] <Leticia Ambrose - Last Filed: 05/18/16 12:25> - Progress Note SOAP: Subjective: No fevers, sweats, chills. Patient denies having noticed any erythema that ED staff and [facility]List noted. Objective: R 2nd toe: necrotic tip distal to DIP joint. No surrounding skin erythema, no discharge No lymphangitic streaking, no tender RLE lymph nodes Imaging- X-ray no bony changes, MRI no bony edema Assessment: 1. Necrotic R 2nd toe. 2. Multiple med probs including poorly controlled DM with neuropathy 3. No current symptom/sign of infection Plan: 1. No current indication of infection, so I am okay with the stoppage of antibiotics. Though I did not examine prior to abx start. 2. ID consult as inpatient or outpatient if [facility]List desires 3. Follow up as outpt with Drs. Garcia and/or Brad regarding necrotic toe. Or patient could be added to schedule next week for partial toe amputation by Dr. Garcia if patient interested and is seen by Dr. Garcia. <Rei Driver - Last Filed: 05/18/16 14:44>
--- NOTE | 2016-05-18 14:47 | PN ---
Subjective Date of Service: 05/18/16 Interval History: Seen and examined. Reports pain in right foot but no so much her toe. Appetite good. Requesting dilaudid Objective Active Medications: Acetaminophen (Tylenol Tab*) 650 mg PO Q4H PRN PRN Reason: FEVER/PAIN Albuterol (Ventolin 2.5 Mg/3 Ml Neb.Kaylynn*) 2.5 mg INH Q6H PRN PRN Reason: SHORTNESS OF BREATH Amlodipine Besylate (Norvasc Tab*) 10 mg PO DAILY [facility] Last Admin: 05/18/16 10:46 Dose: 10 mg Aspirin (Aspirin Low Dose Tab*) 81 mg PO QAM [facility] Last Admin: 05/18/16 10:46 Dose: 81 mg Atorvastatin Calcium (Lipitor*) 80 mg PO 1700 [facility] Bisoprolol Fumarate (Zebeta Tab*) 10 mg PO DAILY [facility] Last Admin: 05/18/16 10:46 Dose: 10 mg Dextrose (D50w Syringe 50 Ml*) 12.5 gm IV PUSH .FOR FS < 60 - SS PRN PRN Reason: FS < 60 Gabapentin (Neurontin Cap(*)) 300 mg PO BID [facility] Last Admin: 05/18/16 10:45 Dose: 300 mg Heparin Sodium (Porcine) (Heparin Vial(*)) 5,000 units SUBCUT Q8HR [facility] Last Admin: 05/18/16 14:07 Dose: 5,000 units Hydromorphone HCl (Dilaudid Iv*) 1 mg IV SLOW PU Q4H PRN PRN Reason: PAIN Last Admin: 05/18/16 14:07 Dose: 1 mg Cefepime HCl 2 gm/ Sodium (Chloride) 50 mls @ 100 mls/hr IVPB Q48H [facility] Last Admin: 05/18/16 00:30 Dose: 100 mls/hr Sodium Chloride (Ns 0.9% 1000 Ml*) 1,000 mls @ 100 mls/hr IV PER RATE [facility] Last Admin: 05/18/16 11:02 Dose: 100 mls/hr Insulin Glargine (Lantus(*)) 80 units SUBCUT BID [facility] Last Admin: 05/18/16 10:42 Dose: 80 unit Insulin Human Lispro (Humalog*) 0 units SUBCUT 0730,1130,1630 [facility] PRN Reason: Protocol Insulin Human Lispro (Humalog*) 0 units SUBCUT 0730,1130,1630,2100 [facility] PRN Reason: Protocol Isosorbide Mononitrate (Imdur Er Tab*) 60 mg PO DAILY [facility] Last Admin: 05/18/16 10:46 Dose: 60 mg Losartan Potassium (Cozaar Tab*) 100 mg PO DAILY [facility] Last Admin: 05/18/16 10:46 Dose: 100 mg Mupirocin (Bactroban 2 % Oint*) 1 applic TOPICAL DAILY [facility] Omeprazole (Prilosec Cap*) 20 mg PO QPM [facility] Last Admin: 05/17/16 22:49 Dose: 20 mg Ondansetron HCl (Zofran Inj*) 4 mg IV Q6H PRN PRN Reason: NAUSEA Last Admin: 05/18/16 09:33 Dose: 4 mg Oxycodone/Acetaminophen (Percocet 5/325 Tab*) 2 tab PO Q4H PRN PRN Reason: PAIN Last Admin: 05/17/16 22:48 Dose: 2 tab Pharmacy Consult (Vancomycin Per Pharmacy*) 1 note FOLLOW UP . PRN PRN Reason: PER PROTOCOL Pharmacy Consult (Vancomycin Random Level*) 1 note FOLLOW UP ONCE ONE Stop: 05/19/16 06:01 Vital Signs 05/17/16 05/17/16 05/17/16 19:48 20:00 20:10 Temperature 97.5 F Pulse Rate 78 Respiratory 16 14 16 Rate Blood Pressure 134/90 (mmHg) O2 Sat by Pulse 98 Oximetry 05/17/16 05/17/16 05/17/16 20:20 21:10 21:20 Temperature Pulse Rate Respiratory 14 16 16 Rate Blood Pressure (mmHg) O2 Sat by Pulse Oximetry 05/17/16 05/17/16 05/17/16 22:02 22:10 22:25 Temperature 97.5 F Pulse Rate 78 Respiratory 16 16 16 Rate Blood Pressure 134/90 (mmHg) O2 Sat by Pulse 98 Oximetry 05/17/16 05/18/16 05/18/16 22:48 00:25 00:32 Temperature Pulse Rate Respiratory 16 16 16 Rate Blood Pressure (mmHg) O2 Sat by Pulse Oximetry 05/18/16 05/18/16 05/18/16 00:48 01:32 03:14 Temperature 97.5 F Pulse Rate 85 Respiratory 16 16 14 Rate Blood Pressure 128/50 (mmHg) O2 Sat by Pulse 88 Oximetry 05/18/16 05/18/16 05/18/16 03:16 07:25 09:37 Temperature 97.4 F Pulse Rate 91 Respiratory 18 Rate Blood Pressure 135/69 (mmHg) O2 Sat by Pulse 96 97 92 Oximetry 05/18/16 05/18/16 05/18/16 10:45 11:15 12:27 Temperature 97.6 F 98.2 F Pulse Rate Respiratory 16 Rate Blood Pressure (mmHg) O2 Sat by Pulse Oximetry 05/18/16 05/18/16 12:45 14:07 Temperature Pulse Rate Respiratory 16 16 Rate Blood Pressure (mmHg) O2 Sat by Pulse Oximetry Oxygen Devices in Use Now: None Appearance: obese, NAD Eyes: No Scleral Icterus, PERRLA Ears/Nose/Mouth/Throat: - - poor dentition Respiratory: Symmetrical Chest Expansion and Respiratory Effort, Clear to Auscultation Cardiovascular: NL Sounds; No Murmurs; No JVD, RRR Abdominal: NL Sounds; No Tenderness; No Distention, No Hepatosplenomegaly, - - PD cath c/d/i Lymphatic: No Cervical Adenopathy Extremities: No Edema Skin: - - end of right second toe with dry ulcer, small area of erythema extending proximal on dorsal surface of foot Neurological: Alert and Oriented x 3 Result Diagrams: 05/18/16 06:30 05/18/16 06:30 Additional Lab and Data: Lab Results 05/17/16 05/17/16 Range/Units 16:50 16:50 WBC 14.9 H (3.5-10.8) 10^3/ul RBC 4.64 (4.0-5.4) 10^6/ul Hgb 13.9 (12.0-16.0) g/dl Hct 43 (35-47) % MCV 92 (80-97) fL MCH 30 (27-31) pg MCHC 33 (31-36) g/dl RDW 15 (10.5-15) % Plt Count 266 (150-450) 10^3/ul MPV 10 (7.4-10.4) um3 Neut % (Auto) 84.4 H (38-83) % Lymph % (Auto) 9.1 L (25-47) % Gonzales % (Auto) 3.9 (1-9) % Eos % (Auto) 2.0 (0-6) % Baso % (Auto) 0.6 (0-2) % Absolute Neuts (auto) 12.6 H (1.5-7.7) 10^3/ul Absolute Lymphs (auto) 1.4 (1.0-4.8) 10^3/ul Absolute Monos (auto) 0.6 (0-0.8) 10^3/ul Absolute Eos (auto) 0.3 (0-0.6) 10^3/ul Absolute Basos (auto) 0.1 (0-0.2) 10^3/ul Absolute Nucleated RBC 0.01 10^3/ul Nucleated RBC % 0.1 ESR Pending Sodium 129 L (133-145) mmol/L Potassium 3.6 (3.5-5.0) mmol/L Chloride 92 L (101-111) mmol/L Carbon Dioxide 25 (22-32) mmol/L Anion Gap 12 H (2-11) mmol/L BUN 31 H (6-24) mg/dL Creatinine 3.99 H (0.51-0.95) mg/dL Est GFR ( Amer) 16.3 (>60) Est GFR (Non-Af Amer) 12.7 (>60) BUN/Creatinine Ratio 7.8 L (8-20) Glucose 613 H* (70-100) mg/dL Calcium 9.4 (8.6-10.3) mg/dL C-Reactive Protein 36.53 H (< 5.00) mg/L Microbiology and Other Data: Microbiology 05/17/16 22:37 Nasal Screen MRSA (PCR)([facility]) - Final Nasal Mrsa Negative Assess/Plan/Problems-Billing Assessment: 35 yo F h/o ESRD on PD, PVD, uncontrolled DM2, HTN p/w right foot pain found with second toe infection - Patient Problems (1) Dry gangrene Comment: Vanco, cefepime although this is more for area of erythema extending up foot May benefit from CTA runoff to eval for interventions in setting of suspected critical ischemia Appreciate surgery consultation in this case (2) Diabetes Comment: HbA1c 15.5% Lantus 80 BID Lispro high dose SS and 1:12 carb counting coverage Pt with large [employer] soda in room Cites budget as contributing to difficulty controlling DM2 with inadequate access to healthy food (3) HTN (hypertension) Comment: norvasc 10 losartan 100 (4) ESRD (end stage renal disease) Comment: peritoneal dialysis (5) DVT prophylaxis Comment: [facility]
[2016-05-18] MEDS: Mupirocin 2% OINT* TUBE TOPICAL SCH (16:17)
[2016-05-18] MEDS ORDERED: Atorvastatin* 80 MG TAB PO SCH (17:00)
[2016-05-18] MEDS ORDERED: Omeprazole CAP* 20 MG PO SCH (18:00)
[2016-05-18] MEDS: Omeprazole CAP* 20 MG PO SCH (18:35)
--- NOTE | 2016-05-18 21:41 | CONS ---
CONSULTATION REPORT: DATE OF CONSULTATION: 05/18/16 REQUESTING PROVIDER: Luis Antonio Bell NP CONSULTING SERVICE: Infectious Disease. REASON FOR CONSULTATION: 1. Right second toe infection and necrosis with dry gangrene. 2. Peripheral vascular disease, WILLIAM here. Monophasic waveform to the right lower extremity arterie s and WILLIAM 0.5. 3. End-stage renal disease, on peritoneal dialysis. 4. Diabetes, uncontrolled. RECOMMENDATIONS: 1. Continue vancomycin. Goal trough 10 to 15. We will stop the gram-negative coverage and if she continues to improve, we will change to doxycycline 100 mg by mouth twice daily. 2. Ongoing vascular evaluation, see about reperfusion of the foot. HISTORY OF PRESENT ILLNESS: A 35-year-old woman with end-stage renal disease and peripheral vascula r disease admitted with right foot infection and pain. The pain has been there about 3 or 4 days th at is worsening, worse with weightbearing. Then, she noticed over the second toe, there is some area of swelling and eschar in the tip with some red streaks. She came to the hospital yesterday. MRI was done, showed no osteomyelitis. White count was 15,000. She was afebrile. She was on vancomyci n and cefepime. The redness has resolved. Pain is a little bit better. She has had no fevers, chil ls, or sweats. PAST MEDICAL HISTORY: 1. End-stage renal disease, on peritoneal dialysis. 2. Peripheral vascular disease. 3. Melanoma. 4. Diabetes. 5. Neuropathy. 6. Coronary artery disease. 7. Hypertension. 8. Hyperlipidemia. 9. Asthma. 10. Gastroesophageal reflux disease. 11. Depression. 12. Anxiety. 13. Status post right great toe amputation. 14. Status post left eye enucleation. ALLERGIES: TAPE, CODEINE, REQUIP, ERYTHROMYCIN, NIACIN. MEDICATIONS: 1. Tylenol. 2. Albuterol. 3. Lipitor. 4. Aspirin. 5. Bisoprolol. 6. Dilaudid. 7. Heparin subcutaneous injection. 8. Insulin glargine. 9. Insulin lispro. 10. Imdur. 11. Losartan. 12. Omeprazole. 13. Vancomycin. SOCIAL HISTORY: Lives outside [place]. No travel. No sick contacts. FAMILY HISTORY: Diabetes. No recurrent infections. REVIEW OF SYSTEMS: All negative to 12-point review of systems except as noted above. PHYSICAL EXAM: Vital Signs: Temperature 37, heart rate is 90, respiratory rate 16, blood pressure 135/69, O2 sat 92% on room air. In general, she is awake not in distress. Neurologically, oriented x3. Follows all commands. HEENT: There is no conjunctival hemorrhage. Oropharynx without lesion s. Neck is supple without nuchal rigidity. Lymph Nodes: There is no cervical, supraclavicular, in guinal, axillary, or epitrochlear lymphadenopathy. Heart has regular rate and rhythm without murmur s, rubs, or gallops. Lungs are clear to auscultation bilaterally. Abdomen: Soft, nontender, nondis tended with bowel sounds present. Skin: There is no rash or splinter hemorrhages. Musculoskeletal : Right second toe, the tip, there is no erythema. There is a scar and a small area of dry gangren e. LABORATORY DATA: White blood cell count 14, hemoglobin 14, platelets 278, creatinine 4, potassium 3 .7. CRP 35. Please see impressions and recommendations as outlined above, which I have discussed wi th Dr. Garza. Thanks for asking me to see Ms. Wright in consultation. [id number]/CPS #: [id number]
[2016-05-19] MEDS: Ondansetron INJ* 2 MG/ML VIAL IV PRN (02:46)
[2016-05-19] MEDS: HYDROmorphone INJ* 1 MG/ML CARPUJECT SYRINGE IV SLOW PU PRN (02:53)
[2016-05-19] MEDS: Heparin VIAL(*) 5000 UNITS/ML VIAL (FIVE THOUSAND) SUBCUT SCH ×2 (05:34→13:25)
[2016-05-19] MEDS ORDERED: Vancomycin Random Level* NOTE FOLLOW UP ONE (06:00)
[2016-05-19] MEDS: Insulin LISPRO* 1 UNITS UNIT SUBCUT SCH ×4 (09:35→13:26)
[2016-05-19 09:59] VITALS: BP 136/60
[2016-05-19] MEDS: Losartan TAB* 25 MG PO SCH (10:03)
[2016-05-19] MEDS: Mupirocin 2% OINT* TUBE TOPICAL SCH (10:03)
[2016-05-19] MEDS: amLODIPine TAB* 5 MG PO SCH (10:04)
[2016-05-19] MEDS: Isosorbide Mononitrate ER TAB* 60 MG PO SCH (10:04)
[2016-05-19] MEDS: BISOPROLOL 5 MG PO SCH (10:04)
[2016-05-19] MEDS: Insulin GLARGINE(*) 1 UNITS UNIT SUBCUT SCH (10:04)
[2016-05-19] MEDS: Gabapentin CAP(*) 300 MG PO SCH (10:04)
[2016-05-19] MEDS: Aspirin Low Dose CHEW TAB* 81 MG PO SCH (10:05)
[2016-05-19] MEDS ORDERED: Iodixanol* (CONTRAST) 320 MG/ML 100 ML SDV IV ONE (12:26)
[2016-05-19] MEDS: oxyCODONE/Acetamin 5/325 MG* TAB PO PRN (13:26)
--- NOTE | 2016-05-19 21:35 | RAD ---
INDICATION: Gangrenous right second toe ulcer on a patient with end-stage renal disease receiving peritoneal dialysis. COMPARISON: WILLIAM dated May 17, 2016 that demonstrates values consistent with rest pain bilaterally and grossly deranged arterial waveforms measured in the right worse than left ankles. TECHNIQUE: A CT angiogram of the abdomen, pelvis and lower extremities was performed before and following arterial phase intravenous contrast enhancement with 125 mL Visipaque 320. Delayed images of the lower legs were acquired as well. Contiguous axial sections were obtained and reconstructed in the sagittal, coronal planes and a maximum intensity projection 3-D was created. FINDINGS: Non-arterial findings: The lung bases appear clear without significant infiltrate. There is mild groundglass opacification at the bilateral lung bases. There are no large pleural effusions. The liver, spleen, pancreas and adrenal glands appear to be within normal limits. The gallbladder is normal. The kidneys are atrophic bilaterally and exhibit little to no arterial phase cortical enhancement. A peritoneal dialysis catheter is noted in the midline lower abdomen. Trace ascites is noted. There are diverticula seen throughout the length of the entire colon but none exhibit acute inflammatory change. Multilevel degenerative changes of the lower thoracic and lumbar spine includes loss of intervertebral disc height.There are no sinister appearing bone lesions. Arterial findings: Abdomen \\T\\ Pelvis: The abdominal aorta exhibits increasingly severe mixed attenuation atherosclerosis inferiorly. The origins of the celiac trunk, superior mesenteric artery and inferior mesenteric artery appear adequately patent. Bilaterally the renal arteries appear to be adequately patent. There is a "beaded" appearance to the bilateral renal arteries that can be seen in the setting of fibromuscular dysplasia. Bilaterally the iliac arteries are patent. Right leg: There is mostly noncalcified eccentric atherosclerosis of the right common femoral artery providing in-line flow into the proximal femoral profundus and superficial femoral artery. The right superficial femoral artery exhibits increasingly severe mixed attenuation atherosclerosis up to its entry point into Bj's canal where there is likely occlusion (image 246) that extends approximately 6-7 cm. The distal SFA fills by reconstituted flow, exhibits another focus of high-grade stenosis before transitioning into the popliteal artery. There appears to be in-line flow into the tibioperoneal trunk and infrapopliteal arteries with diminutive 2 vessel runoff provided by the right POLO and ROD TAPE OPERATOR. Left leg: The left common femoral artery is patent providing in-line flow into the superficial femoral artery. There is a short segment of high-grade stenosis versus out right occlusion of the left femoral profundus before the intramuscular branches fill by reconstituted flow more distally. The left superficial femoral artery exhibits increasingly severe mixed attenuation atherosclerosis. At Bj's canal there is a short segment of high-grade stenosis versus occlusion (image 281). The distal SFA fills by reconstituted flow, narrows briefly in its distal portion providing narrowed but in-line flow into the popliteal artery. The popliteal artery appears patent, but there is coarse calcification the left tibioperoneal trunk causing high-grade stenosis (image 363). Beyond this the proximal portions of the infrapopliteal arteries appear to be adequately patent proximally. There is coarse calcification becoming more severe in the inferior portions of the posterior tibial artery that may occlude the lumen. Only the anterior tibial artery appears to provide arterial flow beyond the level of the left ankle. IMPRESSION: 1. Mixed attenuation atherosclerosis advanced for the patient's age. The more severe and/or clinically relevant findings are as follows: * Bilaterally the renal arteries exhibit a "beaded" appearance that can be seen with fibromuscular dysplasia. * Medium length occlusion of the distal right superficial femoral artery measuring approximately 6 - 7 cm in length. * There appears to be diminutive 2 vessel runoff in the right lower extremity provided by the POLO and ROD TAPE OPERATOR. * Focal occlusion versus high-grade stenosis in the proximal left femoral profundus. * Focal occlusion versus short segment high-grade stenosis in the left superficial femoral artery at its entry point into Bj's canal * Likely calcified occlusion of the distal left posterior tibial artery with only the left POLO providing single-vessel runoff to the left foot. 2. Additional chronic, degenerative and iatrogenic findings described in the body of the report. Vascular findings were discussed with Dr. Garza over the telephone on May 19, 2016.
--- NOTE | 2016-05-20 00:09 | DS ---
LEAVING AGAINST MEDICAL ADVICE DISCHARGE SUMMARY: DATE OF ADMISSION: 05/17/16 DATE OF LEAVING AGAINST MEDICAL ADVICE: 05/19/16 PRIMARY CARE PROVIDER: Dr. Aishwarya Solis. PRIMARY DIAGNOSIS: Dry gangrene of right second toe. SECONDARY DIAGNOSES: Include: 1. Uncontrolled insulin-dependent diabetes; hemoglobin A1c of 15.5. 2. End-stage renal disease, on peritoneal dialysis. 3. Persistent leukocytosis. 4. Severe peripheral vascular disease. 5. Neuropathy. 6. Coronary artery disease. 7. Hypertension. 8. Hyperlipidemia. 9. Depression. 10. Anxiety. HISTORY OF PRESENT ILLNESS AND HOSPITAL COURSE: This is a 35-year-old female, complicated past medical history, last hospital stay left against medical advice , returning with increased pain in her right foot, found with suspected infection in her right second toe, possibly dry gangrene with areas of erythema extending up her foot. She was placed on vancomycin and did not indicate any complaints with her care at [facility]; however, abruptly, this afternoon announced she will be leaving the hospital shortly. I discussed the patient's decision with her and her boyfriend. She indicated she had received vancomycin in the past and did not see the reason for staying any longer. I did indicate that revascularization may help in the healing of her foot and she was losing her toe, possibly foot, potentially her leg without proper therapy to which she responded she had been requesting her entire leg be amputated previously. I believe she is making these reports in responses to the chronic pain she has in her lower extremities from her severe neuropathy. I indicated that further risks in detail with the patient including worsening infection, loss of limb, loss of life, chest pain, myocardial infarction, seizure, loss of consciousness, and . She acknowledges understanding and wishes to __accept ___ the risk. Of note, the patient's CTA with runoff is not formally dictated yet; however, I did discuss with Dr. Serrano that she would benefit from revascularization. However, this conversation occurred after the patient has already left the building as she returned from imaging and left the hospital. The manner which the patient left the hospital including an abrupt change in her demeanor and acceptance of plan of care would indicate some underlying mental illness and/or concern for alcohol and/or drug abuse. Prescriptions for doxycycline were sent to pharmacy of her choosing; otherwise, all home medications have been continued. However, the patient did not receive completed medication reconciliation on discharge. I did inform her that I would be sending doxycycline to the pharmacy of her choosing. TIME SPENT: Greater than 60 minutes was spent on the discharge of the patient, greater than half was spent [id number] with the patient and her boyfriend. CC: Dr. Aishwarya Solis* [id number]/CPS #: [id number]
[2016-05-20] MEDS ORDERED: Vancomycin Random Level* NOTE FOLLOW UP ONE (06:00)
== END 2016-05-19 15:25 | disposition left against medical advice (07) | DRG 197 ==
LOC: ED 16:11 → MED 19:02
PROVIDERS: ADMIT Internal Medicine; ATTEND Internal Medicine
PROC: 3E1M39Z Irrigation of Peritoneal Cavity using Dialysate, Percutaneous Approach (ICD-10-PCS; principal; 2016-05-18)
DX: E11.52 Type 2 diabetes mellitus with diabetic peripheral angiopathy with gangrene (principal); N18.6 End stage renal disease; E11.22 Type 2 diabetes mellitus with diabetic chronic kidney disease; I12.0 Hypertensive chronic kidney disease with stage 5 chronic kidney disease or end stage renal disease; G89.29 Other chronic pain; F10.10 Alcohol abuse, uncomplicated; Y90.9 Presence of alcohol in blood, level not specified; F19.10 Other psychoactive substance abuse, uncomplicated; E11.65 Type 2 diabetes mellitus with hyperglycemia; I25.10 Atherosclerotic heart disease of native coronary artery without angina pectoris; E78.5 Hyperlipidemia, unspecified; F41.9 Anxiety disorder, unspecified; D72.829 Elevated white blood cell count, unspecified; E11.43 Type 2 diabetes mellitus with diabetic autonomic (poly)neuropathy; F17.210 Nicotine dependence, cigarettes, uncomplicated; J44.9 Chronic obstructive pulmonary disease, unspecified; K21.9 Gastro-esophageal reflux disease without esophagitis; M47.9 Spondylosis, unspecified; M16.0 Bilateral primary osteoarthritis of hip; H54.8 Legal blindness, as defined in USA; F31.9 Bipolar disorder, unspecified; L08.9 Local infection of the skin and subcutaneous tissue, unspecified; E66.9 Obesity, unspecified; K31.84 Gastroparesis; Z53.21 Procedure and treatment not carried out due to patient leaving prior to being seen by health care provider; Z89.411 Acquired absence of right great toe; Z83.3 Family history of diabetes mellitus; Z82.49 Family history of ischemic heart disease and other diseases of the circulatory system; Z88.5 Allergy status to narcotic agent; Z88.1 Allergy status to other antibiotic agents; Z88.8 Allergy status to other drugs, medicaments and biological substances; I25.2 Old myocardial infarction; Z99.2 Dependence on renal dialysis; Z85.820 Personal history of malignant melanoma of skin; Z68.35 Body mass index [BMI] 35.0-35.9, adult
CPT/HCPCS: 36415; 71010; 75635; 80048; 80202; 83036; 85025; 85610; 85652; 86140; 87040; 87641; 90945; 93005; 93922; 94760; 99406; A9270-GY; G0257; J0692; J1170; J1644; J2270; J2405; J2543; J3370; Q9967

== ENCOUNTER 2016-06-24 13:40 | Emergency (ER) | payer OTHER ==
[2016-06-24 14:46] VITALS: BP 143/73
[2016-06-24] MEDS ORDERED: HYDROmorphone* 1 MG/ML 1 ML SYR IV SLOW PU ONE (15:28)
[2016-06-24] MEDS ORDERED: NS 0.9% 1000 ML* 1,000 ML IV ONE (17:24)
[2016-06-24 17:39] LABS: Hematocrit 40 % (35-47); Hemoglobin 12.7 g/dl (12.0-16.0); Mean Corpuscular HGB Conc 32 g/dl (31-36); Mean Corpuscular Hemoglobin 30 pg (27-31); Mean Corpuscular Volume 95 fL (80-97); Mean Platelet Volume 9 um3 (7.4-10.4); Red Blood Count 4.26 10^6/ul (4.0-5.4); Red Cell Distribution Width 15 % (10.5-15); White Blood Count 15.9 10^3/ul (3.5-10.8)
[2016-06-24] MEDS: HYDROmorphone* 2 MG/ML 1 ML SYR IV SLOW PU ONE ×2 (17:47→19:36)
[2016-06-24 17:50] LABS: BUN/Creatinine Ratio 8.8 (8-20); Blood Urea Nitrogen 48 mg/dL (6-24); CO2 Carbon Dioxide 21 mmol/L (22-32); Calcium 9.3 mg/dL (8.6-10.3); Chloride 91 mmol/L (101-111); EGFR African American 11.4 (>60); EGFR Non-African American 8.9 (>60); Sodium 127 mmol/L (133-145)
[2016-06-24 17:54] LABS: Glucose 530 mg/dL (70-100)
[2016-06-24] MEDS ORDERED: Insulin REGULAR(*) 1 UNITS UNIT SUBCUT ONE (18:06)
[2016-06-24] MEDS ORDERED: HYDROmorphone* 1 MG/ML 1 ML SYR IV ONE (19:29)
[2016-06-24] MEDS ORDERED: HYDROmorphone* 2 MG/ML 1 ML SYR ONE (19:30)
--- NOTE | 2016-06-27 18:26 | ED ---
Isaias Palacio Claudia, scribed for Nigel Zayas MD on 06/24/16 at 1431 . Lower Extremity - HPI Summary HPI Summary: 35 year old female presents to the ED with right leg pain(from the thigh to the foot). Pt notes PMHx of DM and a stent was placed due to poor circulation on Saturday. Pt notes constant sever pain since the surgery. The pt notes that the pain is 10/10 and she is unable to ambulate due to the significant pain. She states no associated Sx of fever or chills and not alleviating or aggravating factors. Pt describes the pain as an ahce/numbness. - History of Current Complaint Chief Complaint: EDExtremityLower Stated Complaint: PAIN IN RIGHT LEG Time Seen by Provider: 06/24/16 14:23 Hx Obtained From: Patient Hx Last Menstrual Period: 01/25/16 Pain Intensity: 10 Pain Scale Used: 0-10 Numeric Timing: Constant Character Of Pain: Aching Aggravating Factor(s): Standing, Ambulation, Movement Able to Bear Weight: Yes - Allergies/Home Medications Allergies/Adverse Reactions: Allergies Allergy/AdvReac Type Severity Reaction Status Date / Time Adhesive Tape Allergy Blisters Verified 01/26/16 20:41 Codeine Allergy Hives Verified 01/26/16 20:41 Ropinirole [From Requip] Allergy Hives Verified 01/26/16 20:41 Erythromycin AdvReac "DOESN'T Verified 01/26/16 20:41 WORK" Niacin AdvReac Flushing Verified 01/26/16 20:41 PMH/Surg Hx/FS Hx/Imm Hx Previously Healthy: Yes Endocrine/Hematology History: Reports: Hx Anticoagulant Therapy - Aspirin., Hx Blood Transfusions, Hx Diabetes - TYPE 2 WITH INSULIN CONTROL, Hx Thyroid Disease - THYROID NODULE, Hx Anemia - HISTORY OF -NO PROBLEMS CURRENTLY- BLOOD TRANSFUSION IN 2013 Cardiovascular History: Reports: Hx Angina, Hx Cardiac Arrest - in 2013 with CPR, Hx Coronary Artery Disease - STATES HAS 3 BLOCKED ARTERIES, Hx Hypercholesterolemia, Hx Hypertension - CONTROL WITH MED, Hx Myocardial Infarction, Other Cardiovascular Problems/Disorders - [facility]- CARDIOLOGY [facility] [place]/CARDIAC ARREST 2013-DURING HEMODIALYSIS Denies: Hx Congestive Heart Failure, Hx Deep Vein Thrombosis, Hx Pacemaker/ ICD, Hx Valvular Heart Disease Respiratory History: Reports: Hx Asthma - NO INHALER BUT HAS A NEBULIZER, Hx Chronic Obstructive Pulmonary Disease (COPD) - smoker Denies: Hx Lung Cancer, Hx Pneumonia, Hx Pulmonary Embolism, Hx Sleep Apnea - NOT TESTED GI History: Reports: Hx Gastroesophageal Reflux Disease, Other GI Disorders - GASTROPARESIS - TAKING OMEPRAZOLE Denies: Hx Gastrointestinal Bleed, Hx Ulcer History: Reports: Hx Chronic Renal Failure, Hx Dialysis - PERITONEAL BUT DOES HAVE FISTULA ON LEFT ARM, Hx Renal Disease - ESRD on home peritoneal dialysis , Other Problems/Disorders - ESRD- URINATES A SMALL AMOUNT Musculoskeletal History: Reports: Hx Arthritis - BACK, HIPS, Hx Back Problems - Sciatica and Herniated L3 disk Sensory History: Reports: Hx Eye Prosthesis - left, Hx Legally Blind, Hx Vision Problem Denies: Hx Contacts or Glasses, Hx Hearing Aid Opthamlomology History: Reports: Hx Eye Prosthesis - left, Hx Legally Blind, Hx Vision Problem Denies: Hx Contacts or Glasses Neurological History: Reports: Other Neuro Impairments/Disorders - Neuropathy BOTH LEGS Denies: Hx Transient Ischemic Attacks (TIA) Psychiatric History: Reports: Hx Anxiety - ON MEDICATION FOR, Hx Depression - ON MEDICATION FOR, Hx Bipolar Disorder Denies: Hx Panic Disorder - Cancer History Cancer Type, Location and Year: MALIGNANT MELANOMA- [facility] Hx Chemotherapy: No Hx Radiation Therapy: No - Surgical History Surgery Procedure, Year, and Place: LEFT EYE REMOVED 2011 - HAS PROSTETHETIC EYE (ORBITS DONE 06/[address] LIGIA COY TO SCAN IN MRI) ;. MELANOMA REMOVED FROM [facility] 2012 (PROCEDURE DONE 4X);. CARDIAC CATH 2013 - NO STENTS;. KEFT WRIST FISTULA PALCEMENT ([facility]) 2013;. HEMODIALYSIS CATH RIGHT CHEST WALL 2013;. PERITONEAL DIALYSIS CATH 03/2014;. CATH REMOVAL 08/[address] [facility];. RIGHT GREAT TOE AMPUTATION, [facility] 05/2015;. PLACEMENT RIGHT JUGULAR TESIO HEMODIALYSIS CATHETER [facility] 10/22/2015;. CARDIAC CATH - NO STENTS- 2016 ; Hx Anesthesia Reactions: Yes - Nausea, WAKES UP VOMITING - Immunization History Date of Tetanus Vaccine: UTD Date of Influenza Vaccine: 10/10/15 Infectious Disease History: No Infectious Disease History: Reports: Hx of Known/Suspected MRSA - MRSA R 1st toe Denies: Hx Hepatitis, Hx Human Immunodeficiency Virus (HIV), Hx Shingles, Hx Tuberculosis, History Other Infectious Disease, Traveled Outside the [place] in Last 30 Days - Family History Known Family History: Positive: Cardiac Disease - father [place] at 42 y/o, Hypertension - Social History Alcohol Use: None Hx Substance Use: No Substance Use Type: Reports: None Substance Use Comment - Amount & Last Used: prescriptions Hx Tobacco Use: Yes Smoking Status (MU): Current Every Day Smoker Type: Cigarettes Amount Used/How Often: 1/2 PPD Length of Time of Smoking/Using Tobacco: 17 YEARS Have You Smoked in the Last Year: Yes Review of Systems Constitutional: Negative Negative: Fever, Chills Eyes: Negative Negative: Erythema ENT: Negative Negative: Sore Throat Cardiovascular: Negative Negative: Chest Pain Respiratory: Negative Negative: Shortness Of Breath, Cough Gastrointestinal: Negative Negative: Abdominal Pain, Vomiting, Nausea Genitourinary: Negative Negative: dysuria, hematuria Musculoskeletal: Other - RIGHT LEG PAIN (FROM THIGH TO FOOT) Negative: Myalgia Skin: Negative Negative: Rash Neurological: Negative Psychological: Normal All Other Systems Reviewed And Are Negative: Yes Physical Exam - Summary Physical Exam Summary: Constitutional: Well-developed, Well-nourished, Alert. (-) Distressed Skin: Warm, Dry HENT: Normocephalic; Atraumatic Eyes: Conjunctiva normal Neck: Musculoskeletal ROM normal neck. (-) JVD, (-) Stridor, (-) Tracheal deviation Cardio: Rhythm regular, rate normal, Heart sounds normal; Intact distal pulses; The pedal pulses are 2+ and symmetric. Radial pulses are 2+ and symmetric. (-) Murmur Pulmonary/Chest wall: Effort normal. (-) Respiratory distress, (-) Wheezes, (-) Rales Abd: Soft, (-) Tenderness, (-) Distension, (-) Guarding, (-) Rebound Musculoskeletal: (-) Edema RIGHT SECOND TOE IS NECROTIC TIP, NML COLORING AND TEMPERATURE OF THE FOOT, DORSAL PEDAL PULSE AND POSTERIOR TIBIALIS PULSE NOT OBTAINABLE- DOPPLER PULSES PENDING Lymph: (-) Cervical adenopathy Neuro: Alert, Oriented x3 Psych: Mood and affect Normal Triage Information Reviewed: Yes Vital Signs On Initial Exam: Initial Vitals Temp Pulse Resp BP Pulse Ox 97.0 F 130 20 113/68 94 06/24/16 13:50 06/24/16 13:50 06/24/16 13:50 06/24/16 13:50 06/24/16 13:50 Vital Signs Reviewed: Yes Diagnostics - Vital Signs Vital Signs Temp Pulse Resp BP Pulse Ox 06/24/16 13:54 97.4 F 130 20 113/68 94 06/24/16 13:53 97.4 F 130 20 113/68 94 06/24/16 13:50 97.0 F 130 20 113/68 94 - Laboratory Lab Results: Lab Results 06/24/16 06/24/16 06/24/16 Range/Units 14:35 14:35 14:35 WBC 15.9 H (3.5-10.8) 10^3/ul RBC 4.26 (4.0-5.4) 10^6/ul Hgb 12.7 (12.0-16.0) g/dl Hct 40 (35-47) % MCV 95 (80-97) fL MCH 30 (27-31) pg MCHC 32 (31-36) g/dl RDW 15 (10.5-15) % Plt Count 373 (150-450) 10^3/ul MPV 9 (7.4-10.4) um3 INR (Anticoag Therapy) 1.07 (0.89-1.11) Sodium 127 L (133-145) mmol/L Potassium TNP Chloride 91 L (101-111) mmol/L Carbon Dioxide 21 L (22-32) mmol/L Anion Gap TNP BUN 48 H (6-24) mg/dL Creatinine 5.44 H (0.51-0.95) mg/dL Est GFR ( Amer) 11.4 (>60) Est GFR (Non-Af Amer) 8.9 (>60) BUN/Creatinine Ratio 8.8 (8-20) Glucose 530 H* (70-100) mg/dL Calcium 9.3 (8.6-10.3) mg/dL Result Diagrams: 06/24/16 14:35 06/24/16 14:35 Lab Statement: Any lab studies that have been ordered have been reviewed, and results considered in the medical decision making process. - EKG 1401 Cardiac Rate: NL EKG Rhythm: Sinus Tachycardia - 130 beats/min Lower Extremity Course/Dx - Course Assessment/Plan: The pt will be transfered to [facility] to Dr. Aguilar whom will admit her to the floor. I discussed care of pt with Dr. Aguilar at [facility] whom stated that the pt left AMA from the hopsital on saturday after they expressed their plan to hospitalize the pt longer due to heparin induced thrombocytopenia. Pt is transferred stable with no urgent Rx. - Diagnoses Provider Diagnoses: Peripheral vascular disease, Lower extremity pain, Post-operative pain - Physician Notifications Discussed Care of Patient With: Discussed care of pt with Dr. Aguilar at [facility] whom stated that the pt left AMA from the hopsital on saturday after they expressed their plan to hospitalize the pt longer due to heparin induced thrombocytopenia. They recommend tranfer to [facility] where she will be amditted to the floor for further care. Discharge - Discharge Plan Condition: Fair Disposition: TRANS HIGHER LVL OF CARE FAC Referrals: Aishwarya Solis MD [Primary Care Provider] - The documentation as recorded by the Isaias sexton Claudia accurately reflects the service I personally performed and the decisions made by me, Nigel Zayas MD.
== END 2016-06-24 19:38 | disposition short-term general hospital (02) ==
LOC: ED 13:40
DX: I73.9 Peripheral vascular disease, unspecified (principal); M79.604 Pain in right leg; F17.210 Nicotine dependence, cigarettes, uncomplicated; Z98.890 Other specified postprocedural states
CPT/HCPCS: 36415; 80048; 85027; 85610; 93005; 96374; 96376; 99284; J1170

== ENCOUNTER 2016-07-11 14:58 | Emergency (ER) | payer OTHER ==
[2016-07-11 15:19] VITALS: BP 110/55
--- NOTE | 2016-07-11 15:41 | UC ---
Cardiac HPI - HPI Summary HPI Summary: The patient comes in today for: 1. Hypotension, near-syncope, chest tightness: Onset: 3 weeks. Palliative/provocative: Nothing helps her symptoms. Quality: Tightness Region: Chest Severity: 03/06 Time: Comes and goes. Associated symptoms: Event: The patient states that she was seeing Dr. Garcia (orthopedics), today who states that she needed to come here for a work up. Blood sugars: running in the 500's--my blood sugars are all over the place. Kidney failure: She does peritoneal solution. CAD: She had cardiac arrest 3 years ago. She states that she has 3 blocked arteries. Cath done 3 months ago which showed the blocked arteries. No stents were done. * - History of Current Complaint Chief Complaint: UCDizziness Stated Complaint: DIZZY/LIGHT HEADED/LOW BLOOD PRESSURE Time Seen by Provider: 07/11/16 15:35 Hx Obtained From: Patient - Allergy/Home Medications Allergies/Adverse Reactions: Allergies Allergy/AdvReac Type Severity Reaction Status Date / Time Adhesive Tape Allergy Blisters Verified 07/11/16 15:08 Heparin Allergy See Comment Verified 07/11/16 15:08 Ropinirole [From Requip] Allergy Hives Verified 07/11/16 15:08 Erythromycin AdvReac "DOESN'T Verified 07/11/16 15:08 WORK" Niacin AdvReac Flushing Verified 07/11/16 15:08 Home Medications: Home Medications Apixaban* [Eliquis*] 5 mg PO BID 07/11/16 [History Confirmed 07/11/16] Varenicline 0.5 mg Tab(Nf) [Chantix 0.5 MG TAB(NF)] 0.5 mg PO DAILY 07/11/16 [ History Confirmed 07/11/16] PMH/Surg Hx/FS Hx/Imm Hx Previously Healthy: No - PVD--2 stents in legs, Hx "blood clots" all through body--no hx pe, christi ne Endocrine History Of: Reports: Diabetes - TYPE 2 WITH INSULIN CONTROL, Thyroid Disease - THYROID NODULE--biopsy "fine.", Dyslipidemia Denies: Hyperthyroidism, Hypothyroidism Cardiovascular History Of: Reports: Cardiac Disorders - 3 BLOCKED ARTERIES, Cardiac arrest x 1. Cath done 3 months ago--no stents, Hypertension - CONTROL WITH MED, Myocardial Infarction Denies: Pacemaker/ICD, Congestive Heart Failure, Atrial Fibrillation, Deep Vein Thrombosis, Bleeding Disorders Respiratory History Of: Reports: COPD - smoker, Asthma - NO INHALER BUT HAS A NEBULIZER Denies: Bronchitis, Pneumonia, Pulmonary Embolism GI/ History Of: Reports: Gastroesophageal Reflux, Renal Disease - ESRD on home peritoneal dialysis Denies: Ulcer, Gastrointestinal Bleed, Gall Bladder Disease, Kidney Stones, Diverticulitis, Urosepsis Neurological History Of: Denies: TIA Psychological History Of: Reports: Anxiety - ON MEDICATION FOR, Depression - ON MEDICATION FOR, Bipolar Disorder Denies: Schizophrenia, Post Traumatic Stress Disorder Cancer History Of: Denies: Lung Cancer, Colorectal Cancer, Breast Cancer, Prostate Cancer, Cervical Cancer Other History Of: Anticoagulant Therapy - Aspirin. Negative For: HIV, Hepatitis B, Hepatitis C - Surgical History Surgical History: Yes Surgery Procedure, Year, and Place: LEFT EYE REMOVED 2011 - HAS PROSTETHETIC EYE (ORBITS DONE 06/[address] LIGIA COY TO SCAN IN MRI) ;. MELANOMA REMOVED FROM [facility] 2012 (PROCEDURE DONE 4X);. CARDIAC CATH 2013 - NO STENTS;. LEFT WRIST FISTULA PALCEMENT ([facility]) 2013;. HEMODIALYSIS CATH RIGHT CHEST WALL 2013;. PERITONEAL DIALYSIS CATH 03/2014;. [place] [facility] [place]AT [place] [facility] [place]. PLACEMENT RIGHT JUGULAR TESIO HEMODIALYSIS CATHETER [facility] [place]. CARDIAC CATH - stentsx2 right leg - Family History Known Family History: Positive: Cardiac Disease - father [place] at 42 y/o, Hypertension - Social History Occupation: Unemployed Alcohol Use: None Substance Use Type: None Substance Use Comment - Amount & Last Used: prescriptions Smoking Status (MU): Current Every Day Smoker Type: Cigarettes Amount Used/How Often: 5 ciagrettes Length of Time of Smoking/Using Tobacco: 17 YEARS Have You Smoked in the Last Year: Yes Household Exposure Type: Cigarettes - Immunization History Most Recent Influenza Vaccination: Fall 2015 Most Recent Tetanus Shot: 2013 Most Recent Pneumonia Vaccination: per pt: sometime in 2013 Review of Systems Constitutional: Negative Skin: Negative Eyes: Negative ENT: Negative Respiratory: Negative, Cough Cardiovascular: Chest Pain Gastrointestinal: Negative Genitourinary: Negative All Other Systems Reviewed And Are Negative: Yes Physical Exam Triage Information Reviewed: Yes Appearance: Well-Appearing, No Pain Distress, Well-Nourished Vital Signs: Initial Vital Signs Temp 97.4 F 07/11/16 15:11 Pulse 114 07/11/16 15:11 Resp 16 07/11/16 15:11 BP 110/55 07/11/16 15:11 Pulse Ox 99 07/11/16 15:11 Vital Signs Reviewed: Yes Eyes: Positive: Conjunctiva Clear. Negative: Discharge ENT: Positive: Hearing grossly normal. Negative: Pharyngeal erythema, Nasal congestion, Nasal drainage, TM bulging, TM dull, Tonsillar swelling, Tonsillar exudate Dental: Negative: Gross Decay/Caries @, Dental Fracture @ Neck: Positive: Supple, Nontender, No Lymphadenopathy. Negative: Nuchal Rigidity Respiratory: Positive: Lungs clear, No respiratory distress, No accessory muscle use. Negative: Rhonchi, Wheezing Cardiovascular: Positive: RRR, No Murmur Abdomen Description: Positive: Nontender, No Organomegaly, Soft. Negative: Distended, Guarding Musculoskeletal: Positive: Strength Intact, ROM Intact Psychological: Positive: Normal Response To Family, Age Appropriate Behavior, Consolable Skin: Negative: rashes, breakdown Diagnostics - Laboratory Diagnostic Studies Completed/Ordered: EKG: Rate: 107. Rhythm: Sinus tachycardia. Ectopy: None. Acute changes: No ST elevations. - Assessment/Plan Course Of Treatment: Patient was told that I recommend that she go to the hospital ER for further evaluation and treatment. However, she declines going by ambulance. - Clinical Impression Provider Diagnoses: Chest pain. CAD (hx cardiac arrest). Renal failure on peritoneal dialysis. DM. Smoker. HTN - Physician Notifications Discussed Patient Care With: Discussed case with Anuradha Erazo (charge nurse) since no provider was available. Left my cell phone number for them to call me when free. Discharge - Discharge Plan Condition: Stable Disposition: AGAINST MEDICAL ADVICE Additional Instructions: Patient going [place] private [place] [facility] [place] request. She did not take any aspirin today.
[2016-07-11] MEDS ORDERED: Aspirin Low Dose CHEW TAB* 81 MG PO ONE (15:58)
== END 2016-07-11 16:17 | disposition left against medical advice (07) ==
LOC: UCCORT 14:58
DX: I25.10 Atherosclerotic heart disease of native coronary artery without angina pectoris (principal); I12.0 Hypertensive chronic kidney disease with stage 5 chronic kidney disease or end stage renal disease; N18.6 End stage renal disease; Z99.2 Dependence on renal dialysis; E11.8 Type 2 diabetes mellitus with unspecified complications; Z79.4 Long term (current) use of insulin; Z86.718 Personal history of other venous thrombosis and embolism; Z91.048 Other nonmedicinal substance allergy status; Z79.01 Long term (current) use of anticoagulants; F41.8 Other specified anxiety disorders; Z88.8 Allergy status to other drugs, medicaments and biological substances; Z88.1 Allergy status to other antibiotic agents; F17.210 Nicotine dependence, cigarettes, uncomplicated
CPT/HCPCS: 93005; 99212; A9270-GY; G0463

== ENCOUNTER 2016-07-13 14:40 | Inpatient (IN) | payer OTHER ==
[2016-07-13] MEDS ORDERED: traZODone TAB* 50 MG TAB PO PRN (14:58)
[2016-07-13] MEDS ORDERED: oxyCODONE TAB* 5 MG TAB PO PRN (14:58)
[2016-07-13] MEDS ORDERED: diPHENhydraMINE IV* 50 MG/ML 1 ml VIAL (BENADRYL) IV PRN (14:58)
[2016-07-13] MEDS ORDERED: Acetaminophen TAB* 325 MG PO PRN (14:58)
[2016-07-13] MEDS ORDERED: ZOSYN 3.375 GM ONE TIME DOSE-OVER 30 MINUTES IVPB (20:30)
[2016-07-13] MEDS: oxyCODONE TAB* 5 MG TAB PO PRN (22:24)
[2016-07-13] MEDS: Docusate CAP* 100 MG PO SCH (22:25)
--- NOTE | 2016-07-13 22:30 | HP ---
ADMISSION HISTORY AND PHYSICAL: DATE OF ADMISSION: 07/13/16 ADMISSION DIAGNOSES: Right forefoot osteomyelitis, diabetes. REASON FOR ADMISSION: The patient with increasing osteomyelitis, right foot and multisystem disease. Margaux now, age 36, has insulin-dependent diabetes and obesity. She also has peripheral and central vascular disease. She also is on peritoneal dialysis. She previously had a cardiac arrest during dialysis in 2013 and then a year ago , she underwent cardiac catheterization for some chest pain and was noted to have some a constriction of the LAD, no stent was placed. She is currently on Eliquis. A year ago, we amputated her right great toe and this healed well; however, now over the last couple of months, she has been having gangrene and wet cellulitis around the base of her second and partial third toe. She has been seen in the wound clinic and recently in the [facility] by Dr. Garcia. The surgical plan for her at this point is transmetatarsal amputation, but she will need medical clearance prior to the surgery. She is on peritoneal dialysis, which is every 6 hours, home dialysis unit. PAST MEDICAL HISTORY: Margaux has multisystem disease. She has poor dentition. She has some shortness of breath with exertion. She has history of cardiac ischemic disease. She is obese. She has chronic renal failure. She has diabetes and peripheral neuropathy now with some right forefoot osteomyelitis. CURRENT MEDICATIONS: Include: 1. NovoLog. 2. Sertraline 50 mg per day. 3. Omeprazole 20 mg per day. 4. Promethazine 6.25 mg as needed. 5. Lantus 100 units at night. 6. Amlodipine 10 mg per day. 7. Bisoprolol 10 mg per day. 8. Torsemide 20 mg per day. 9. Atorvastatin 80 mg per day. 10. Losartan 100 mg per day. 11. Ciprofloxacin and clindamycin orally. She also takes gabapentin and Percocet as needed for pain. She is also on Eliquis 5 mg twice a day. ALLERGIES: She claims an allergy to MORPHINE, CODEINE, AUGMENTIN, TAPE, and BACTRIM. PHYSICAL EXAMINATION GENERAL: She is 36 years of age, but appears older than her stated age. She has appropriate mood and affect and is in no acute distress. She has poor dentition, missing multiple teeth. VITAL SIGNS: Show her to be afebrile, 97.8, and blood pressure 114/80. NECK: Supple. CHEST: Exam shows clear lung hernandez to auscultation. I do not hear any wheezing or rales. CARDIAC: Exam shows a rapid regular rate. No extra sounds noted. ABDOMEN: Soft, quite doughy, distended, and nontender. EXTREMITY: Exam shows her to have thready dorsal pulse and warm right hindfoot with gross ischemic changes in the forefoot with a necrotic second toe and partial base third toe. Previous first MTP joint disarticulation site well healed. She has full range of motion of the hindfoot. IMPRESSION: The patient with multisystemic diabetes, peripheral vascular disease, and right foot osteomyelitis, also chronic renal failure. PLAN: Plan is to admit to the hospital for some IV antibiotics to control the osteomyelitis, cellulitis of the right forefoot. I have spoken to her renal nurse and the admitting hospitalist for medical optimization over the weekend prior to the surgery. [id number]/CPS #: [id number] VALENTINAD
[2016-07-13] MEDS: NS 0.9% 1000 ML* 1,000 ML IV SCH (22:43)
[2016-07-13] MEDS: Morphine INJ* 2 MG/ML 1 ML SYRINGE IV PRN (22:46)
[2016-07-13 22:53] LABS: Hematocrit 36 % (35-47); Hemoglobin 11.8 g/dl (12.0-16.0); Mean Corpuscular HGB Conc 33 g/dl (31-36); Mean Corpuscular Hemoglobin 30 pg (27-31); Mean Corpuscular Volume 91 fL (80-97); Mean Platelet Volume 9 um3 (7.4-10.4); Red Blood Count 3.99 10^6/ul (4.0-5.4); Red Cell Distribution Width 15 % (10.5-15); White Blood Count 11.9 10^3/ul (3.5-10.8)
[2016-07-13 23:33] LABS: Erythrocyte Sed Rate 92 mm/Hr (0-14)
[2016-07-13] MEDS: Insulin LISPRO* 1 UNITS UNIT SUBCUT SCH (23:44)
[2016-07-13] MEDS: Insulin GLARGINE(*) 1 UNITS UNIT SUBCUT SCH (23:45)
[2016-07-14] MEDS ORDERED: Piperac/Tazob 3.375 gm in NS* 3.375 GM/100 ML BAG IVPB SCH (00:30)
[2016-07-14] MEDS: Morphine INJ* 2 MG/ML 1 ML SYRINGE IV PRN ×10 (00:51→21:27)
[2016-07-14] MEDS: Ondansetron INJ* 2 MG/ML VIAL IV PRN ×3 (00:54→16:59)
[2016-07-14] MEDS: Piperac/Tazob 3.375 gm in NS* 3.375 GM/100 ML BAG IVPB SCH ×2 (03:05→14:32)
[2016-07-14 05:52] LABS: BUN/Creatinine Ratio 6.4 (8-20); Calcium 8.3 mg/dL (8.6-10.3); EGFR African American 11.6 (>60)
[2016-07-14] MEDS ORDERED: PERCOCET PO PRN (09:24)
[2016-07-14] MEDS ORDERED: Metoclopramide TAB* 10 MG PO PRN ×2 (09:24→12:08)
[2016-07-14] MEDS ORDERED: Albuterol 2.5 MG/3 ML NEB.SOL* (0.083%) INH PRN (09:24)
[2016-07-14] MEDS ORDERED: Albuterol HFA INHALER* 8 gm MDI INH PRN (09:24)
--- NOTE | 2016-07-14 09:32 | CONSULT ---
Subjective Date of Service: 07/14/16 Interval History: 36 yo F with hx of HTN, HLD, PVD s/p recent RLE stenting, CAD, ESRD on PD, neuropathy presents as direct admit from Dr. Garcia for amputation due to worsening R foot wound. Patient reports the wound has been increasing and there has been increasing malodorous discharge. She saw Dr. Garcia on 07/12 and came to the hospital on 07/13 as direct admit. She states she had recent RLE stents placed at [place] (R popliteal and R SFA) within the past month, also reports having a cardiac cath done in the past 2-3 months at [place] that showed no significant disease, no stents placed. She denies recent fever, chills. Family History: Findings - F - DM, M - DM Social History: Findings - PPD smoker x 20 years, no EtOH Past Medical History: Findings - HTN, HLD, CAD, ESRD on PD, neuropathy Review of Systems - Measurements Intake and Output: Intake and Output Last 24 Hours 07/12/16 07/13/16 07/14/16 07/15/16 06:59 06:59 06:59 06:59 Intake Total 864 Output Total 0 Balance 864 Weight 94.347 kg Intake: IV Fluids 504 NS (0.9%) 504 Oral 360 Output: Urine 0 - Review of Systems Constitutional Symptoms: Negative: Fever Dermatology: Positive: Normal HEENT: Positive: Normal Eyes: Positive: Normal Thyroid: Positive: Normal Pulmonary: Negative: Normal, Shortness of Breath Cardiology: Negative: Chest Pain, Shortness of Breath Gastroenterology: Positive: Nausea, Vomiting Genital - Urinary: Positive: Normal Endocrinology: Positive: Normal Neurology: Positive: Normal Objective Active Medications: Acetaminophen (Tylenol Tab*) 650 mg PO Q4H PRN Albuterol (Ventolin 2.5 Mg/3 Ml Neb.Kaylynn*) 2.5 mg INH Q6H PRN Albuterol (Ventolin Hfa Inhaler*) 2 puff INH Q6H PRN Amlodipine Besylate (Norvasc Tab*) 10 mg PO QPM [facility] Apixaban (Eliquis*) 5 mg PO BID [facility] Aspirin (Aspirin Low Dose Tab*) 81 mg PO QAM [facility] Atorvastatin Calcium (Lipitor*) 80 mg PO QPM [facility] Diphenhydramine HCl (Benadryl Iv*) 25 mg IV Q6H PRN Docusate Sodium (Colace Cap*) 100 mg PO BID [facility] Gabapentin (Neurontin Cap(*)) 300 mg PO TID [facility] Sodium Chloride (Ns 0.9% 1000 Ml*) 1,000 mls @ 75 mls/hr IV PER RATE [facility] Piperacillin Sod/Tazobactam Sod (Zosyn 3.375 Gm In Ns Premix*) 3.375 gm in 100 mls @ 25 mls/hr IVPB 0300,1500 [facility] Insulin Glargine (Lantus(*)) 40 units SUBCUT Q12H [facility] Insulin Human Lispro (Humalog*) 0 units SUBCUT ACHS [facility] Isosorbide Mononitrate (Imdur Er Tab*) 60 mg PO QPM [facility] Losartan Potassium (Cozaar Tab*) 100 mg PO QPM [facility] Metoclopramide HCl (Reglan Tab*) 10 mg PO Q6H PRN Morphine Sulfate (Morphine Inj (Syringe)*) 2 mg IV Q2H PRN Non-Formulary Medication (Bisoprolol 10(Nf)) 10 mg PO QPM [facility] Omeprazole (Prilosec Cap*) 20 mg PO QPM [facility] Ondansetron HCl (Zofran Inj*) 4 mg IV Q6H PRN Oxycodone HCl (Roxycodone Tab*) 5 mg PO Q4H PRN Oxycodone HCl (Roxycodone Tab*) 10 mg PO Q4H PRN Trazodone HCl (Desyrel Tab*) 25 mg PO BEDTIME PRN Vital Signs 07/13/16 07/13/16 07/13/16 19:40 19:56 22:24 Temperature 98.0 F 98.0 F Pulse Rate 103 103 Respiratory 17 17 18 Rate Blood Pressure 138/81 138/81 (mmHg) O2 Sat by Pulse 97 97 Oximetry 07/14/16 07/14/16 07/14/16 04:13 04:15 05:59 Temperature 97.6 F Pulse Rate 107 Respiratory 18 16 18 Rate Blood Pressure 122/67 (mmHg) O2 Sat by Pulse 97 Oximetry 07/14/16 07/14/16 07/14/16 06:59 07:37 07:48 Temperature 97.7 F Pulse Rate 115 Respiratory 18 18 18 Rate Blood Pressure 148/75 (mmHg) O2 Sat by Pulse 100 Oximetry Oxygen Devices in Use Now: None Appearance: Young, F, laying in bed in NAD Eyes: No Scleral Icterus Ears/Nose/Mouth/Throat: Mucous Membranes Moist Neck: NL Appearance and Movements; NL JVP Respiratory: Symmetrical Chest Expansion and Respiratory Effort, - - Some mild scattered wheezes diffusely, good air movement Cardiovascular: NL Sounds; No Murmurs; No JVD, RRR Abdominal: - - Soft, NTND, RLQ PD cath, c/d/i Lymphatic: No Cervical Adenopathy Extremities: No Edema Skin: - - R foot with dressing in place, did not unwrap Neurological: Alert and Oriented x 3 Result Diagrams: 07/13/16 22:41 07/14/16 04:56 Assessment/Plan - Billing Worsening RLE wound, cellulitis, osteomyelitis admitted for planned TMA by Dr. Garcia in a 36 yo F with hx of HTN, HLD, CAD, PVD s/p recent LE stenting on Eliquis, neuropathy 1) RLE cellulitis, osteomyelitis - continue IV Abx as per Ortho - plan for TMA on 07/16 - get EKG - will obtain recent records from [place] for RLE stenting and cardiac cath, if cath results are as she says she shouldn't need any additional testing prior to surgery - analgesia as per Ortho 2) CAD, HTN - continue ASA, Norvasc, Bisoprolol, Imdur, Losartan, Atorvastatin 3) DM - started on Lantus 40 units BID with HISS, will continue for now, may need additional Lantus - BGs qACHS 4) PVD s/p recent RLE stenting - continue ASA and Eliquis for now, obtaining records 5) ESRD on PD - continue PD while inpatient, monitor lytes 6) Asthma - continue albuterol 7) DVT ppx - Eliquis Thank for you this consult, will continue to follow
--- NOTE | 2016-07-14 09:50 | PN ---
Progress Note - Progress Note SOAP: Subjective: [Pt was seen today laying in bed. Pt states that her right foot is in pain. She states that the pain has been ongoing since she arrived. She states she was able to sleep last night though. ] Objective: [General: Pt is awake, alert and oriented. NAD with appropriate mood and affect RLE: Pts right forefoot is wrapped. Pt is able to df and pf. Pulse is 2+ ] Vital Signs Temp 97.7 F 07/14/16 07:37 Pulse 115 07/14/16 07:37 Resp 18 07/14/16 07:48 BP 148/75 07/14/16 07:37 Pulse Ox 100 07/14/16 07:37 Intake & Output 07/13/16 07/14/16 07/14/16 18:59 06:59 18:59 Intake Total 864 Output Total 0 Balance 864 Weight 208 lb Intake: IV Fluids 504 NS (0.9%) 504 Oral 360 Output: Urine 0 Assessment: [Right forefoot osteomylitis ] Plan: [Continue current care, Pt will have amputation with Dr. Garcia on Saturday. ]
[2016-07-14] MEDS ORDERED: Aspirin EC Low Dose* 81 MG TAB.EC PO SCH (10:00)
[2016-07-14] MEDS: Insulin LISPRO* 1 UNITS UNIT SUBCUT SCH ×4 (10:00→21:40)
[2016-07-14] MEDS: Mupirocin 2% OINT* TUBE TOPICAL SCH (12:46)
[2016-07-14] MEDS: NS 0.9% 1000 ML* 1,000 ML IV SCH (12:49)
[2016-07-14] MEDS: Docusate CAP* 100 MG PO SCH ×2 (12:53→21:27)
[2016-07-14] MEDS: Aspirin Low Dose CHEW TAB* 81 MG PO SCH (12:54)
[2016-07-14] MEDS: Apixaban* 5 MG TAB PO SCH ×2 (12:54→21:27)
[2016-07-14] MEDS: Insulin GLARGINE(*) 1 UNITS UNIT SUBCUT SCH ×2 (14:28→23:50)
[2016-07-14] MEDS: Gabapentin CAP(*) 300 MG PO SCH ×2 (14:30→21:26)
[2016-07-14] MEDS: Omeprazole CAP* 20 MG PO SCH (16:48)
[2016-07-14] MEDS: Losartan TAB* 25 MG PO SCH (17:03)
[2016-07-14] MEDS: Atorvastatin* 80 MG TAB PO SCH (17:03)
[2016-07-14] MEDS: amLODIPine TAB* 5 MG PO SCH (17:04)
[2016-07-14] MEDS: Isosorbide Mononitrate ER TAB* 60 MG PO SCH (17:04)
[2016-07-14] MEDS ORDERED: Bisoprolol TAB* 5 MG PO SCH (18:00)
[2016-07-15] MEDS: NS 0.9% 1000 ML* 1,000 ML IV SCH ×2 (02:39→15:29)
[2016-07-15] MEDS: Piperac/Tazob 3.375 gm in NS* 3.375 GM/100 ML BAG IVPB SCH ×2 (03:12→15:27)
[2016-07-15] MEDS: Morphine INJ* 2 MG/ML 1 ML SYRINGE IV PRN ×10 (03:33→23:53)
[2016-07-15 05:26] LABS: Hematocrit 33 % (35-47); Hemoglobin 10.7 g/dl (12.0-16.0); Mean Corpuscular HGB Conc 32 g/dl (31-36); Mean Corpuscular Hemoglobin 30 pg (27-31); Mean Corpuscular Volume 92 fL (80-97); Mean Platelet Volume 9 um3 (7.4-10.4); Red Blood Count 3.61 10^6/ul (4.0-5.4); Red Cell Distribution Width 14 % (10.5-15); White Blood Count 8.5 10^3/ul (3.5-10.8)
[2016-07-15 05:36] LABS: BUN/Creatinine Ratio 7.3 (8-20); Calcium 7.9 mg/dL (8.6-10.3); EGFR African American 13.1 (>60); EGFR Non-African American 10.2 (>60); Potassium 3.1 mmol/L (3.5-5.0)
[2016-07-15] MEDS: Insulin LISPRO* 1 UNITS UNIT SUBCUT SCH ×6 (07:59→21:26)
[2016-07-15] MEDS: Aspirin Low Dose CHEW TAB* 81 MG PO SCH (09:29)
[2016-07-15] MEDS: Docusate CAP* 100 MG PO SCH ×2 (09:30→21:34)
[2016-07-15] MEDS: Apixaban* 5 MG TAB PO SCH (09:30)
[2016-07-15] MEDS: Bisoprolol TAB* 5 MG PO SCH (09:30)
[2016-07-15] MEDS: Gabapentin CAP(*) 300 MG PO SCH ×3 (09:30→21:34)
[2016-07-15] MEDS: Mupirocin 2% OINT* TUBE TOPICAL SCH (10:42)
[2016-07-15] MEDS ORDERED: Dextrose 50% Syringe 50 ML* 25 GM/50 ML SYRINGE IV PUSH PRN (11:00)
--- NOTE | 2016-07-15 11:02 | PN ---
Subjective Date of Service: 07/15/16 Interval History: Patient seen and examined at bedside. Denies fever/chills, CP, SOB, abd pain, n/ v. Reports persistent pain and some moderate drainage to right foot. Family History: Findings - F - DM, M - DM Social History: Findings - PPD smoker x 20 years, no EtOH Past Medical History: Findings - HTN, HLD, CAD, ESRD on PD, neuropathy Objective Active Medications: Acetaminophen (Tylenol Tab*) 650 mg PO Q4H PRN PRN Reason: PAIN OR TEMPERATURE Albuterol (Ventolin 2.5 Mg/3 Ml Neb.Kaylynn*) 2.5 mg INH Q6H PRN PRN Reason: SHORTNESS OF BREATH Albuterol (Ventolin Hfa Inhaler*) 2 puff INH Q6H PRN PRN Reason: WHEEZING Amlodipine Besylate (Norvasc Tab*) 10 mg PO QPM [facility] Last Admin: 07/14/16 17:04 Dose: 10 mg Apixaban (Eliquis*) 5 mg PO BID [facility] Last Admin: 07/15/16 09:30 Dose: 5 mg Aspirin (Aspirin Low Dose Tab*) 81 mg PO QAM [facility] Last Admin: 07/15/16 09:29 Dose: 81 mg Atorvastatin Calcium (Lipitor*) 80 mg PO QPM [facility] Last Admin: 07/14/16 17:03 Dose: 80 mg Bisoprolol Fumarate (Zebeta Tab*) 10 mg PO QAM [facility] Last Admin: 07/15/16 09:30 Dose: 10 mg Dextrose (D50w Syringe 50 Ml*) 12.5 gm IV PUSH .FOR FS < 60 - SS PRN PRN Reason: FS < 60 Diphenhydramine HCl (Benadryl Iv*) 25 mg IV Q6H PRN PRN Reason: itching Docusate Sodium (Colace Cap*) 100 mg PO BID [facility] Last Admin: 07/15/16 09:30 Dose: 100 mg Gabapentin (Neurontin Cap(*)) 300 mg PO TID [facility] Last Admin: 07/15/16 09:30 Dose: 300 mg Sodium Chloride (Ns 0.9% 1000 Ml*) 1,000 mls @ 75 mls/hr IV PER RATE [facility] Last Admin: 07/15/16 02:39 Dose: 75 mls/hr Piperacillin Sod/Tazobactam Sod (Zosyn 3.375 Gm In Ns Premix*) 3.375 gm in 100 mls @ 25 mls/hr IVPB 0300,1500 [facility] Last Admin: 07/15/16 03:12 Dose: 25 mls/hr Insulin Glargine (Lantus(*)) 60 units SUBCUT Q12H [facility] Insulin Human Lispro (Humalog*) 0 units SUBCUT ACHS [facility] PRN Reason: Protocol Last Admin: 07/15/16 07:59 Dose: 12 units Insulin Human Lispro (Humalog*) 0 units SUBCUT AC [facility] PRN Reason: Protocol Isosorbide Mononitrate (Imdur Er Tab*) 60 mg PO QPM [facility] Last Admin: 07/14/16 17:04 Dose: 60 mg Losartan Potassium (Cozaar Tab*) 100 mg PO QPM [facility] Last Admin: 07/14/16 17:03 Dose: 100 mg Metoclopramide HCl (Reglan Tab*) 5 mg PO Q6H PRN PRN Reason: NAUSEA Last Admin: 07/14/16 18:59 Dose: 5 mg Morphine Sulfate (Morphine Inj (Syringe)*) 2 mg IV Q2H PRN PRN Reason: PAIN Last Admin: 07/15/16 09:58 Dose: 2 mg Mupirocin (Bactroban 2 % Oint*) 1 applic TOPICAL DAILY [facility] Last Admin: 07/15/16 10:42 Dose: Not Given Omeprazole (Prilosec Cap*) 20 mg PO 1630 [facility] Last Admin: 07/14/16 16:48 Dose: 20 mg Ondansetron HCl (Zofran Inj*) 4 mg IV Q6H PRN PRN Reason: nausea Last Admin: 07/14/16 16:59 Dose: 4 mg Oxycodone HCl (Roxycodone Tab*) 5 mg PO Q4H PRN PRN Reason: PAIN Oxycodone HCl (Roxycodone Tab*) 10 mg PO Q4H PRN PRN Reason: PAIN Last Admin: 07/13/16 22:24 Dose: 10 mg Trazodone HCl (Desyrel Tab*) 25 mg PO BEDTIME PRN PRN Reason: insomnia Vital Signs 07/14/16 07/14/16 07/14/16 11:55 12:50 13:50 Temperature 97.8 F Pulse Rate 100 Respiratory 18 16 16 Rate Blood Pressure 150/80 (mmHg) O2 Sat by Pulse 98 Oximetry 07/14/16 07/14/16 07/14/16 14:30 14:35 15:35 Temperature Pulse Rate Respiratory 16 16 16 Rate Blood Pressure (mmHg) O2 Sat by Pulse Oximetry 07/14/16 07/14/16 07/14/16 16:00 16:10 16:20 Temperature 98.6 F Pulse Rate 101 Respiratory 16 Rate Blood Pressure 141/89 (mmHg) O2 Sat by Pulse 98 99 98 Oximetry 07/14/16 07/14/16 07/14/16 16:30 16:49 17:49 Temperature Pulse Rate Respiratory 16 16 16 Rate Blood Pressure (mmHg) O2 Sat by Pulse Oximetry 07/14/16 07/14/16 07/14/16 18:54 19:21 19:53 Temperature 98.1 F Pulse Rate 88 Respiratory 16 18 Rate Blood Pressure 120/70 (mmHg) O2 Sat by Pulse 94 Oximetry 07/14/16 07/14/16 07/14/16 19:54 20:00 21:26 Temperature Pulse Rate Respiratory 18 20 20 Rate Blood Pressure (mmHg) O2 Sat by Pulse Oximetry 07/14/16 07/14/16 07/14/16 21:27 22:27 23:26 Temperature Pulse Rate Respiratory 20 18 18 Rate Blood Pressure (mmHg) O2 Sat by Pulse Oximetry 07/15/16 07/15/16 07/15/16 03:26 03:33 04:33 Temperature 98.0 F Pulse Rate 81 Respiratory 16 20 20 Rate Blood Pressure 114/52 (mmHg) O2 Sat by Pulse 95 Oximetry 07/15/16 07/15/16 07/15/16 05:34 06:34 07:27 Temperature 98.2 F Pulse Rate 83 Respiratory 20 20 11 Rate Blood Pressure 117/56 (mmHg) O2 Sat by Pulse Oximetry 07/15/16 07/15/16 07/15/16 07:41 07:59 08:00 Temperature Pulse Rate Respiratory 18 18 Rate Blood Pressure (mmHg) O2 Sat by Pulse 95 95 Oximetry 07/15/16 07/15/16 07/15/16 08:41 09:30 09:58 Temperature Pulse Rate Respiratory 18 18 18 Rate Blood Pressure (mmHg) O2 Sat by Pulse Oximetry Oxygen Devices in Use Now: None Appearance: Young female, lying in bed, NAD Eyes: PERRLA Ears/Nose/Mouth/Throat: Mucous Membranes Moist Neck: NL Appearance and Movements; NL JVP Respiratory: Symmetrical Chest Expansion and Respiratory Effort, Clear to Auscultation - scattered wheezes Cardiovascular: NL Sounds; No Murmurs; No JVD, RRR Abdominal: NL Sounds; No Tenderness; No Distention, - - RLQ peritoneal dialysis catheter - c/d/i Extremities: - - right foot dressing c/d/i Neurological: Alert and Oriented x 3 Lines/Tubes/Other Access: Clean, Dry and Intact Peripheral IV Nutrition: Taking PO's Result Diagrams: 07/15/16 05:03 07/15/16 05:03 Assess/Plan/Problems-Billing Worsening RLE wound, cellulitis, osteomyelitis admitted for planned TMA by Dr. Garcia in a 36 yo F with hx of HTN, HLD, CAD, PVD s/p recent LE stenting on Eliquis, neuropathy - Patient Problems (1) Cellulitis of right lower extremity Code(s): L03.115 - CELLULITIS OF RIGHT LOWER LIMB Comment: With osteomyelitis Continue Zosyn per Ortho. Plan for transmetatarsal amputation on 07/16 Continue analgesia per Ortho Cardiac catheterization report from [facility] shows small caliber vessel disease of the distal LCA and RCA and no significant LAD disease; no indication for bypass surgery. Continue medical management. EKG shows NSR with no ischemic changes. Ms. Wright has an RCRI score of 2, carrying a 6.6% risk of major cardiac event during surgery. No further cardiac testing is indicated at this time. (2) Diabetes Code(s): E11.9 - TYPE 2 DIABETES MELLITUS WITHOUT COMPLICATIONS Comment: HgbA1c 14.3 Continue Lantus, increase to 60 BID Continue Lispro high dose SS and 1:10 carb counting coverage Consistent carbohydrate diet (3) HTN (hypertension) Code(s): I10 - ESSENTIAL (PRIMARY) HYPERTENSION Comment: Mostly normotensive Continue amlodipine, bisoprolol, losartan. (4) CAD (coronary artery disease) Code(s): I25.10 - ATHSCL HEART DISEASE OF [place] CORONARY ARTERY W/O ANG PCTRS Comment: Continue ASA, isosorbide, atorvastatin. (5) PVD (peripheral vascular disease) Code(s): I73.9 - PERIPHERAL VASCULAR DISEASE, UNSPECIFIED Comment: S/p recent RLE stenting Continue ASA and Eliquis but will hold in anticipation of surgery. Records requested and pending. (6) ESRD (end stage renal disease) Code(s): N18.6 - END STAGE RENAL DISEASE Comment: Continue peritoneal dialysis Monitor electrolytes (7) History of asthma Code(s): Z87.09 - PERSONAL HISTORY OF OTHER DISEASES OF THE RESPIRATORY SYSTEM Comment: Continue albuterol. (8) DVT prophylaxis Code(s): LJP8907 - Comment: Continue Eliquis Hold tonight's dose in anticipation of surgery. Status and Disposition: Inpatient. Dispo per ortho. [facility] medicine following for co-medical management.
[2016-07-15] MEDS: Insulin GLARGINE(*) 1 UNITS UNIT SUBCUT SCH ×2 (11:53→23:55)
[2016-07-15] MEDS: Omeprazole CAP* 20 MG PO SCH (16:24)
[2016-07-15] MEDS: Ondansetron INJ* 2 MG/ML VIAL IV PRN (17:34)
[2016-07-15] MEDS: amLODIPine TAB* 5 MG PO SCH (18:47)
[2016-07-15] MEDS: Isosorbide Mononitrate ER TAB* 60 MG PO SCH (18:47)
[2016-07-15] MEDS: Losartan TAB* 25 MG PO SCH (18:47)
[2016-07-15] MEDS: Atorvastatin* 80 MG TAB PO SCH (18:47)
[2016-07-16] MEDS: Ondansetron INJ* 2 MG/ML VIAL IV PRN (00:19)
[2016-07-16] MEDS: Piperac/Tazob 3.375 gm in NS* 3.375 GM/100 ML BAG IVPB SCH ×3 (03:30→17:53)
[2016-07-16] MEDS: Morphine INJ* 2 MG/ML 1 ML SYRINGE IV PRN ×8 (03:32→22:42)
[2016-07-16] MEDS: NS 0.9% 1000 ML* 1,000 ML IV SCH ×2 (04:51→22:56)
[2016-07-16 06:18] LABS: BUN/Creatinine Ratio 7.6 (8-20); EGFR African American 16.3 (>60); EGFR Non-African American 12.7 (>60); Potassium 3.3 mmol/L (3.5-5.0)
[2016-07-16] MEDS: Docusate CAP* 100 MG PO SCH ×2 (07:16→21:20)
[2016-07-16] MEDS: Gabapentin CAP(*) 300 MG PO SCH ×3 (07:41→21:14)
[2016-07-16] MEDS: Bisoprolol TAB* 5 MG PO SCH (07:41)
[2016-07-16] MEDS: Insulin LISPRO* 1 UNITS UNIT SUBCUT SCH ×7 (07:44→21:39)
[2016-07-16] MEDS: Mupirocin 2% OINT* TUBE TOPICAL SCH (09:21)
[2016-07-16] MEDS: Insulin GLARGINE(*) 1 UNITS UNIT SUBCUT SCH ×2 (11:51→23:25)
--- NOTE | 2016-07-16 12:03 | PN ---
Subjective Date of Service: 07/16/16 Interval History: Patient seen and examined at bedside. No new complaints. Patient continues to endorse right foot pain with drainage. Denies fever/chills, CP, SOB. Family History: Findings - F - DM, M - DM Social History: Findings - PPD smoker x 20 years, no EtOH Past Medical History: Findings - HTN, HLD, CAD, ESRD on PD, neuropathy Objective Active Medications: Acetaminophen (Tylenol Tab*) 650 mg PO Q4H PRN PRN Reason: PAIN OR TEMPERATURE Albuterol (Ventolin 2.5 Mg/3 Ml Neb.Kaylynn*) 2.5 mg INH Q6H PRN PRN Reason: SHORTNESS OF BREATH Albuterol (Ventolin Hfa Inhaler*) 2 puff INH Q6H PRN PRN Reason: WHEEZING Amlodipine Besylate (Norvasc Tab*) 10 mg PO QPM [facility] Last Admin: 07/15/16 18:47 Dose: 10 mg Atorvastatin Calcium (Lipitor*) 80 mg PO QPM [facility] Last Admin: 07/15/16 18:47 Dose: 80 mg Bisoprolol Fumarate (Zebeta Tab*) 10 mg PO QAM [facility] Last Admin: 07/16/16 07:41 Dose: Not Given Dextrose (D50w Syringe 50 Ml*) 12.5 gm IV PUSH .FOR FS < 60 - SS PRN PRN Reason: FS < 60 Diphenhydramine HCl (Benadryl Iv*) 25 mg IV Q6H PRN PRN Reason: itching Docusate Sodium (Colace Cap*) 100 mg PO BID [facility] Last Admin: 07/16/16 07:16 Dose: Not Given Gabapentin (Neurontin Cap(*)) 300 mg PO TID [facility] Last Admin: 07/16/16 07:41 Dose: 300 mg Sodium Chloride (Ns 0.9% 1000 Ml*) 1,000 mls @ 75 mls/hr IV PER RATE [facility] Last Admin: 07/16/16 04:51 Dose: 75 mls/hr Piperacillin Sod/Tazobactam Sod (Zosyn 3.375 Gm In Ns Premix*) 3.375 gm in 100 mls @ 25 mls/hr IVPB 0300,1500 [facility] Last Admin: 07/16/16 03:30 Dose: 25 mls/hr Insulin Glargine (Lantus(*)) 60 units SUBCUT Q12H [facility] Last Admin: 07/16/16 11:51 Dose: 60 units Insulin Human Lispro (Humalog*) 0 units SUBCUT ACHS [facility] PRN Reason: Protocol Last Admin: 07/16/16 09:21 Dose: 3 units Insulin Human Lispro (Humalog*) 0 units SUBCUT AC [facility] PRN Reason: Protocol Last Admin: 07/16/16 11:51 Dose: Not Given Isosorbide Mononitrate (Imdur Er Tab*) 60 mg PO QPM [facility] Last Admin: 07/15/16 18:47 Dose: 60 mg Losartan Potassium (Cozaar Tab*) 100 mg PO QPM [facility] Last Admin: 07/15/16 18:47 Dose: 100 mg Metoclopramide HCl (Reglan Tab*) 5 mg PO Q6H PRN PRN Reason: NAUSEA Last Admin: 07/14/16 18:59 Dose: 5 mg Morphine Sulfate (Morphine Inj (Syringe)*) 2 mg IV Q2H PRN PRN Reason: PAIN Last Admin: 07/16/16 11:46 Dose: 2 mg Mupirocin (Bactroban 2 % Oint*) 1 applic TOPICAL DAILY [facility] Last Admin: 07/16/16 09:21 Dose: 1 applic Omeprazole (Prilosec Cap*) 20 mg PO 1630 [facility] Last Admin: 07/15/16 16:24 Dose: 20 mg Ondansetron HCl (Zofran Inj*) 4 mg IV Q6H PRN PRN Reason: nausea Last Admin: 07/16/16 00:19 Dose: 4 mg Oxycodone HCl (Roxycodone Tab*) 5 mg PO Q4H PRN PRN Reason: PAIN Oxycodone HCl (Roxycodone Tab*) 10 mg PO Q4H PRN PRN Reason: PAIN Last Admin: 07/13/16 22:24 Dose: 10 mg Trazodone HCl (Desyrel Tab*) 25 mg PO BEDTIME PRN PRN Reason: insomnia Vital Signs 07/15/16 07/15/16 07/15/16 12:06 13:06 14:18 Temperature Pulse Rate Respiratory 18 18 18 Rate Blood Pressure (mmHg) O2 Sat by Pulse Oximetry 07/15/16 07/15/16 07/15/16 14:20 15:16 15:20 Temperature 99.1 F Pulse Rate 89 Respiratory 18 16 20 Rate Blood Pressure 131/68 (mmHg) O2 Sat by Pulse 100 Oximetry 07/15/16 07/15/16 07/15/16 16:00 16:18 16:24 Temperature Pulse Rate Respiratory 20 18 Rate Blood Pressure (mmHg) O2 Sat by Pulse 100 Oximetry 07/15/16 07/15/16 07/15/16 16:31 17:24 19:15 Temperature Pulse Rate Respiratory 18 18 Rate Blood Pressure (mmHg) O2 Sat by Pulse 100 Oximetry 07/15/16 07/15/16 07/15/16 19:57 20:15 21:31 Temperature 98.7 F Pulse Rate 85 Respiratory 20 18 18 Rate Blood Pressure 110/53 (mmHg) O2 Sat by Pulse 99 Oximetry 07/15/16 07/15/16 07/15/16 21:34 21:35 22:31 Temperature Pulse Rate Respiratory 18 20 20 Rate Blood Pressure (mmHg) O2 Sat by Pulse Oximetry 07/15/16 07/15/16 07/16/16 23:34 23:53 00:21 Temperature 98.2 F Pulse Rate 89 Respiratory 18 18 16 Rate Blood Pressure 105/57 (mmHg) O2 Sat by Pulse 93 Oximetry 07/16/16 07/16/16 07/16/16 00:53 03:32 03:51 Temperature 98.1 F Pulse Rate 86 Respiratory 18 18 18 Rate Blood Pressure 113/52 (mmHg) O2 Sat by Pulse 99 Oximetry 07/16/16 07/16/16 07/16/16 04:32 05:32 06:32 Temperature Pulse Rate Respiratory 18 18 18 Rate Blood Pressure (mmHg) O2 Sat by Pulse Oximetry 07/16/16 07/16/16 07/16/16 07:30 07:41 08:41 Temperature 98.1 F Pulse Rate 88 Respiratory 16 18 18 Rate Blood Pressure 103/65 (mmHg) O2 Sat by Pulse 98 Oximetry 07/16/16 07/16/16 07/16/16 09:41 09:48 10:37 Temperature Pulse Rate Respiratory 18 18 18 Rate Blood Pressure (mmHg) O2 Sat by Pulse Oximetry 07/16/16 07/16/16 11:38 11:46 Temperature 98.1 F Pulse Rate 84 Respiratory 20 16 Rate Blood Pressure 102/40 (mmHg) O2 Sat by Pulse 96 Oximetry Oxygen Devices in Use Now: None Appearance: Young female, lying in bed, NAD Eyes: PERRLA Ears/Nose/Mouth/Throat: Mucous Membranes Moist Neck: NL Appearance and Movements; NL JVP Respiratory: Symmetrical Chest Expansion and Respiratory Effort, Clear to Auscultation - occasional wheezes Cardiovascular: NL Sounds; No Murmurs; No JVD, RRR Abdominal: NL Sounds; No Tenderness; No Distention, - - RLQ peritoneal dialysis cath c/d/i Extremities: No Edema, - - right foot dressing c/d/i - did not unwrap Neurological: Alert and Oriented x 3 Lines/Tubes/Other Access: Clean, Dry and Intact Peripheral IV Result Diagrams: 07/15/16 05:03 07/16/16 05:31 Assess/Plan/Problems-Billing Worsening RLE wound, cellulitis, osteomyelitis admitted for planned TMA by Dr. Garcia in a 36 yo F with hx of HTN, HLD, CAD, PVD s/p recent LE stenting on Eliquis, neuropathy - Patient Problems (1) Cellulitis of right lower extremity Code(s): L03.115 - CELLULITIS OF RIGHT LOWER LIMB Comment: With osteomyelitis Continue Zosyn per Ortho. Plan for transmetatarsal amputation today Continue analgesia per Ortho Cardiac catheterization report from [facility] shows small caliber vessel disease of the distal LCA and RCA and no significant LAD disease; no indication for bypass surgery. Continue medical management. EKG shows NSR with no ischemic changes. Ms. Wright has an RCRI score of 2, carrying a 6.6% risk of major cardiac event during surgery. No further cardiac testing is indicated at this time. (2) Diabetes Code(s): E11.9 - TYPE 2 DIABETES MELLITUS WITHOUT COMPLICATIONS Comment: HgbA1c 14.3 Patient uncontrolled diabetic, as evidenced by BG values here and persistently high A1c values. Continue Lantus, increase to 80 BID (which is home dosing) Continue Lispro high dose SS and 1:10 carb counting coverage Consistent carbohydrate diet (3) HTN (hypertension) Code(s): I10 - ESSENTIAL (PRIMARY) HYPERTENSION Comment: Normotensive Continue amlodipine, bisoprolol, losartan. (4) CAD (coronary artery disease) Code(s): I25.10 - ATHSCL HEART DISEASE OF [place] CORONARY ARTERY W/O ANG PCTRS Comment: Continue isosorbide, atorvastatin. Resume ASA when okay with ortho. (5) PVD (peripheral vascular disease) Code(s): I73.9 - PERIPHERAL VASCULAR DISEASE, UNSPECIFIED Comment: S/p recent RLE stenting Resume ASA and Eliquis when okay with ortho. Records requested and pending. (6) ESRD (end stage renal disease) Code(s): N18.6 - END STAGE RENAL DISEASE Comment: Continue peritoneal dialysis Monitor electrolytes (7) History of asthma Code(s): Z87.09 - PERSONAL HISTORY OF OTHER DISEASES OF THE RESPIRATORY SYSTEM Comment: Continue albuterol. (8) DVT prophylaxis Code(s): [id number] - Comment: Eliquis on hold. Resume per ortho. Status and Disposition: Inpatient. Dispo per ortho. Hospital medicine following for co-medical management.
[2016-07-16] MEDS ORDERED: PROCHLORPERAZINE INJ 5 MG/ML 2 ML VIAL IV PRN (12:27)
[2016-07-16] MEDS ORDERED: Piperac/Tazob 3.375 gm in NS* 3.375 GM/100 ML BAG IVPB ONE (13:00)
[2016-07-16] MEDS ORDERED: NS 0.45% 1000 ML BAG* 1,000 ML IV SCH (13:00)
[2016-07-16] MEDS ORDERED: fentaNYL* 50 MCG/ML 2 ML VIAL (100 MCG VIAL) ONE (15:13)
[2016-07-16] MEDS: fentaNYL* 50 MCG/ML 2 ML VIAL (100 MCG VIAL) IV PRN ×4 (15:14→15:37)
[2016-07-16] MEDS: Atorvastatin* 80 MG TAB PO SCH (17:51)
[2016-07-16] MEDS: amLODIPine TAB* 5 MG PO SCH (17:51)
[2016-07-16] MEDS: Omeprazole CAP* 20 MG PO SCH (17:51)
[2016-07-16] MEDS: Isosorbide Mononitrate ER TAB* 60 MG PO SCH (17:52)
[2016-07-16] MEDS: Losartan TAB* 25 MG PO SCH (17:52)
[2016-07-16] MEDS: oxyCODONE TAB* 5 MG TAB PO PRN (21:14)
[2016-07-16] MEDS ORDERED: oxyCODONE TAB* 5 MG TAB PO PRN ×2 (23:06)
[2016-07-16] MEDS ORDERED: Acetaminophen TAB* 325 MG PO PRN (23:06)
[2016-07-16] MEDS: HYDROmorphone* 1 MG/ML 1 ML SYR IV PRN (23:19)
[2016-07-17] MEDS: oxyCODONE TAB* 5 MG TAB PO PRN ×3 (00:21→17:08)
[2016-07-17] MEDS: HYDROmorphone* 1 MG/ML 1 ML SYR IV PRN ×9 (01:45→21:31)
[2016-07-17] MEDS: Piperac/Tazob 3.375 gm in NS* 3.375 GM/100 ML BAG IVPB SCH (05:12)
[2016-07-17] MEDS: Docusate CAP* 100 MG PO SCH ×2 (09:19→21:42)
[2016-07-17] MEDS: Gabapentin CAP(*) 300 MG PO SCH ×3 (09:21→21:26)
--- NOTE | 2016-07-17 09:23 | PN ---
Progress Note - Progress Note SOAP: Subjective: []Patient seen sitting up in bed with eyes closed this am. Initially would not answer my questions, reportedly being "difficult" with staff and non-compliant with her weight bearing status with PT. Pain appears to be in adequate control. Objective: [] Vital Signs Temp 98.0 F 07/17/16 07:45 Pulse 104 07/17/16 07:45 Resp 16 07/17/16 09:14 BP 117/73 07/17/16 07:45 Pulse Ox 98 07/17/16 09:14 Intake & Output 07/16/16 07/17/16 07/17/16 18:59 06:59 18:59 Intake Total 1235 2769 Output Total 150 0 Balance 1085 2769 Weight 224 lb 9.6 oz Intake: IV Fluids 350 1029 0.45 NS 150 D5W 200 NS (0.9%) 909 Zosyn 120 IVPB 645 NS (0.9%) 512 Zosyn 133 Oral 240 1740 Output: Urine 150 0 Other: Estimated Void Small Small Date of Last Bowel 07/16/16 Movement # Bowel Movements 1 1 Estimated Stool Amount Small Small # Voids 1 2 Laboratory Results - last 24 hr 07/16/16 07/16/16 07/16/16 05:31 12:20 12:21 POC Glucose (mg/dL) 80 79 Beta HCG, Quant 0.76 07/16/16 07/16/16 07/16/16 15:03 15:38 17:30 POC Glucose (mg/dL) 56 L 78 119 H Beta HCG, Quant 07/16/16 21:18 POC Glucose (mg/dL) 138 H Beta HCG, Quant Microbiology 07/16/16 14:30 Gram Stain - Preliminary Foot Right Right foot splint is dry and intact Assessment: []s/p transmetatarsal amputation for osteo/ cellulitis right foot POD #1 multiple medical co morbildities Plan: []PT/OT NWB right LE- I stressed the importance of remaining NWB to avoid breakdown of splint and the possibility of causing wound dehiscence. Continue IV Zosyn and current pain medications
[2016-07-17] MEDS: Bisoprolol TAB* 5 MG PO SCH (09:30)
[2016-07-17] MEDS: Insulin LISPRO* 1 UNITS UNIT SUBCUT SCH ×7 (09:34→21:30)
[2016-07-17 10:07] LABS: Hematocrit 32 % (35-47)
[2016-07-17 10:23] LABS: BUN/Creatinine Ratio 6.8 (8-20); Calcium 7.8 mg/dL (8.6-10.3); EGFR African American 16.3 (>60); EGFR Non-African American 12.7 (>60); Potassium 3.6 mmol/L (3.5-5.0)
--- NOTE | 2016-07-17 11:48 | OP ---
OPERATIVE REPORT: DATE OF OPERATION: 07/16/16 - SDS DATE OF : 78 SURGEON: Sebastien Garcia MD. VOCAL MUSIC INSTRUCTOR: Gerda Goss PA-C. ANESTHESIOLOGIST: Dr. Leonard Berg. ANESTHESIA: Local MAC. PRE-OP DIAGNOSIS: Necrotic ulcerated and infected right forefoot. POST-OP DIAGNOSIS: Necrotic ulcerated and infected right forefoot. OPERATIVE PROCEDURE: Right transmetatarsal amputation and tendo-Achilles release. DESCRIPTION OF PROCEDURE: The patient was taken to the operating room where an ankle Esmarch was applied. We made a fish-mouth incision over the distal metatarsal arch reflecting proximally to the midmetatarsal dorsally, which were divided one through five metatarsals with a microsagittal saw. We took care to prevent any spurring on the plantar aspect. We then divided the plantar flap and sent the forefoot to pathology. We dropped the tourniquet, took local cultures and irrigated this area thoroughly. We then closed dorsal to plantar with 0 Vicryl sutures, 2-0 subcutaneous and 2-0 Surgipro. At the end of the case, we also through 0.5 cm incision, did a percutaneous release of the Achilles at the distal portion, closing this with a Surgipro as well. Compression dressing and plaster splint applied. [id number]/[facility] #: [id number] MTDD
[2016-07-17] MEDS: Insulin GLARGINE(*) 1 UNITS UNIT SUBCUT SCH ×2 (11:52→22:48)
[2016-07-17] MEDS: Ondansetron INJ* 2 MG/ML VIAL IV PRN (12:24)
--- NOTE | 2016-07-17 12:52 | PN ---
Subjective Date of Service: 07/17/16 Interval History: Patient seen and examined at bedside. She denies any chest pain, SOB, fever/ chills but does endorse right foot pain. She is very agitated over being in the hospital and feels like no one is telling her anything. We discussed her concerns. Patient verbalized understanding and stated thank you. No other acute concerns. Family History: Findings - F - DM, M - DM Social History: Findings - PPD smoker x 20 years, no EtOH Past Medical History: Findings - HTN, HLD, CAD, ESRD on PD, neuropathy Objective Active Medications: Acetaminophen (Tylenol Tab*) 975 mg PO Q8H PRN PRN Reason: PAIN Albuterol (Ventolin 2.5 Mg/3 Ml Neb.Kaylynn*) 2.5 mg INH Q6H PRN PRN Reason: SHORTNESS OF BREATH Albuterol (Ventolin Hfa Inhaler*) 2 puff INH Q6H PRN PRN Reason: WHEEZING Amlodipine Besylate (Norvasc Tab*) 10 mg PO QPM [facility] Last Admin: 07/16/16 17:51 Dose: Not Given Atorvastatin Calcium (Lipitor*) 80 mg PO QPM [facility] Last Admin: 07/16/16 17:51 Dose: 80 mg Bisoprolol Fumarate (Zebeta Tab*) 10 mg PO QAM [facility] Last Admin: 07/17/16 09:30 Dose: 10 mg Dextrose (D50w Syringe 50 Ml*) 12.5 gm IV PUSH .FOR FS < 60 - SS PRN PRN Reason: FS < 60 Diphenhydramine HCl (Benadryl Iv*) 25 mg IV Q6H PRN PRN Reason: itching Docusate Sodium (Colace Cap*) 100 mg PO BID [facility] Last Admin: 07/17/16 09:19 Dose: Not Given Gabapentin (Neurontin Cap(*)) 300 mg PO TID [facility] Last Admin: 07/17/16 09:21 Dose: 300 mg Hydromorphone HCl (Dilaudid Iv*) 0.5 mg IV Q2H PRN PRN Reason: PAIN Last Admin: 07/17/16 11:51 Dose: 0.5 mg Sodium Chloride (Ns 0.9% 1000 Ml*) 1,000 mls @ 75 mls/hr IV PER RATE [facility] Last Admin: 07/16/16 22:56 Dose: 75 mls/hr Piperacillin Sod/Tazobactam Sod (Zosyn 3.375 Gm In Ns Premix*) 3.375 gm in 100 mls @ 25 mls/hr IVPB 0500,1700 [facility] Last Admin: 07/17/16 05:12 Dose: 25 mls/hr Insulin Glargine (Lantus(*)) 60 units SUBCUT Q12H [facility] Last Admin: 07/17/16 11:52 Dose: 60 units Insulin Human Lispro (Humalog*) 0 units SUBCUT ACHS [facility] PRN Reason: Protocol Last Admin: 07/17/16 11:57 Dose: Not Given Insulin Human Lispro (Humalog*) 0 units SUBCUT AC [facility] PRN Reason: Protocol Last Admin: 07/17/16 09:34 Dose: 2 units Isosorbide Mononitrate (Imdur Er Tab*) 60 mg PO QPM [facility] Last Admin: 07/16/16 17:52 Dose: 60 mg Losartan Potassium (Cozaar Tab*) 100 mg PO QPM [facility] Last Admin: 07/16/16 17:52 Dose: Not Given Metoclopramide HCl (Reglan Tab*) 5 mg PO Q6H PRN PRN Reason: NAUSEA Last Admin: 07/14/16 18:59 Dose: 5 mg Mupirocin (Bactroban 2 % Oint*) 1 applic TOPICAL DAILY [facility] Last Admin: 07/16/16 09:21 Dose: 1 applic Omeprazole (Prilosec Cap*) 20 mg PO 1630 [facility] Last Admin: 07/16/16 17:51 Dose: 20 mg Ondansetron HCl (Zofran Inj*) 4 mg IV Q6H PRN PRN Reason: nausea Last Admin: 07/17/16 12:24 Dose: 4 mg Oxycodone HCl (Roxycodone Tab*) 5 mg PO Q3H PRN PRN Reason: PAIN - MILD Oxycodone HCl (Roxycodone Tab*) 10 mg PO Q3H PRN PRN Reason: PAIN - MODERATE Oxycodone HCl (Roxycodone Tab*) 15 mg PO Q3H PRN PRN Reason: PAIN - SEVERE Last Admin: 07/17/16 00:21 Dose: 15 mg Trazodone HCl (Desyrel Tab*) 25 mg PO BEDTIME PRN PRN Reason: insomnia Last Admin: 07/16/16 23:24 Dose: 25 mg Vital Signs 07/16/16 07/16/16 07/16/16 15:02 15:14 15:15 Temperature 98.1 F Pulse Rate 88 79 Respiratory 16 16 16 Rate Blood Pressure 172/98 164/88 (mmHg) O2 Sat by Pulse 99 98 Oximetry 07/16/16 07/16/16 07/16/16 15:23 15:30 15:37 Temperature Pulse Rate 79 Respiratory 16 16 14 Rate Blood Pressure 132/85 (mmHg) O2 Sat by Pulse 96 Oximetry 07/16/16 07/16/16 07/16/16 15:45 16:00 16:05 Temperature 97.9 F Pulse Rate 74 83 Respiratory 16 18 Rate Blood Pressure 126/93 132/63 (mmHg) O2 Sat by Pulse 97 100 99 Oximetry 07/16/16 07/16/16 07/16/16 16:14 16:21 16:22 Temperature 97.9 F Pulse Rate 83 Respiratory 16 16 18 Rate Blood Pressure 132/63 (mmHg) O2 Sat by Pulse 99 Oximetry 07/16/16 07/16/16 07/16/16 16:30 16:37 16:59 Temperature Pulse Rate Respiratory 16 18 18 Rate Blood Pressure (mmHg) O2 Sat by Pulse Oximetry 07/16/16 07/16/16 07/16/16 17:05 17:59 18:20 Temperature 97.9 F 98.0 F Pulse Rate 81 88 Respiratory 16 18 16 Rate Blood Pressure 112/63 133/102 (mmHg) O2 Sat by Pulse 100 100 Oximetry 07/16/16 07/16/16 07/16/16 19:45 19:55 20:31 Temperature 98.1 F Pulse Rate 89 Respiratory 16 16 16 Rate Blood Pressure 109/72 (mmHg) O2 Sat by Pulse 100 Oximetry 07/16/16 07/16/16 07/16/16 21:14 21:31 22:03 Temperature 97.8 F Pulse Rate 87 Respiratory 16 16 16 Rate Blood Pressure 116/43 (mmHg) O2 Sat by Pulse 99 Oximetry 07/16/16 07/16/16 07/16/16 22:42 23:14 23:19 Temperature Pulse Rate Respiratory 20 16 16 Rate Blood Pressure (mmHg) O2 Sat by Pulse Oximetry 07/16/16 07/16/16 07/17/16 23:26 23:42 00:19 Temperature 98.0 F Pulse Rate 91 Respiratory 16 16 16 Rate Blood Pressure 118/61 (mmHg) O2 Sat by Pulse 95 Oximetry 07/17/16 07/17/16 07/17/16 00:21 01:45 02:21 Temperature Pulse Rate Respiratory 16 16 16 Rate Blood Pressure (mmHg) O2 Sat by Pulse Oximetry 07/17/16 07/17/16 07/17/16 02:45 03:51 04:05 Temperature 98.1 F Pulse Rate 92 Respiratory 16 16 16 Rate Blood Pressure 110/51 (mmHg) O2 Sat by Pulse 92 Oximetry 07/17/16 07/17/16 07/17/16 05:05 06:21 07:21 Temperature Pulse Rate Respiratory 16 16 15 Rate Blood Pressure (mmHg) O2 Sat by Pulse Oximetry 07/17/16 07/17/16 07/17/16 07:45 09:14 09:21 Temperature 98.0 F Pulse Rate 104 Respiratory 16 16 16 Rate Blood Pressure 117/73 (mmHg) O2 Sat by Pulse 98 98 Oximetry 07/17/16 07/17/16 07/17/16 09:30 10:30 11:21 Temperature 99.7 F Pulse Rate 96 Respiratory 16 18 16 Rate Blood Pressure 138/31 (mmHg) O2 Sat by Pulse 98 Oximetry 07/17/16 11:51 Temperature Pulse Rate Respiratory 16 Rate Blood Pressure (mmHg) O2 Sat by Pulse Oximetry Oxygen Devices in Use Now: None Appearance: Female patient, lying in bed, in NAD Eyes: PERRLA Ears/Nose/Mouth/Throat: Mucous Membranes Moist Neck: NL Appearance and Movements; NL JVP Respiratory: Symmetrical Chest Expansion and Respiratory Effort, Clear to Auscultation - scattered wheezes Cardiovascular: NL Sounds; No Murmurs; No JVD, RRR Abdominal: NL Sounds; No Tenderness; No Distention, - - RLQ PD cath, c/d/i Extremities: - - right foot cast/dressing - did not take down, is c/d/i Neurological: Alert and Oriented x 3 Lines/Tubes/Other Access: Clean, Dry and Intact Peripheral IV Nutrition: Taking PO's Result Diagrams: 07/17/16 10:00 07/17/16 10:00 Microbiology and Other Data: Microbiology 07/16/16 14:30 Anaerobic Culture - Preliminary Wound - Right No Growth Day 1 07/16/16 14:30 Gram Stain - Final Foot Right Wound Culture - Preliminary No Growth Day 1 Assess/Plan/Problems-Billing Worsening RLE wound, cellulitis, osteomyelitis admitted for planned TMA by Dr. Garcia in a 36 yo F with hx of HTN, HLD, CAD, PVD s/p recent LE stenting on Eliquis, neuropathy - Patient Problems (1) Cellulitis of right lower extremity Code(s): L03.115 - CELLULITIS OF RIGHT LOWER LIMB Comment: With osteomyelitis POD #1 s/p right TMA Continue Zosyn per Ortho. Appreciate ID consult. Continue analgesia per Ortho Cardiac catheterization report from [facility] shows small caliber vessel disease of the distal LCA and RCA and no significant LAD disease; no indication for bypass surgery. Continue medical management. EKG shows NSR with no ischemic changes. Ms. Wright has an RCRI score of 2, carrying a 6.6% risk of major cardiac event during surgery. No further cardiac testing is indicated at this time. (2) Diabetes Code(s): E11.9 - TYPE 2 DIABETES MELLITUS WITHOUT COMPLICATIONS Comment: HgbA1c 14.3 Patient uncontrolled diabetic, as evidenced by BG values here and persistently high A1c values. Continue Lantus. Continue Lispro high dose SS and 1:10 carb counting coverage Consistent carbohydrate diet (3) HTN (hypertension) Code(s): I10 - ESSENTIAL (PRIMARY) HYPERTENSION Comment: Normotensive Continue amlodipine, bisoprolol, losartan. (4) CAD (coronary artery disease) Code(s): I25.10 - ATHSCL HEART DISEASE OF [place] CORONARY ARTERY W/O ANG PCTRS Comment: Continue isosorbide, atorvastatin. Resume ASA when okay with ortho. (5) PVD (peripheral vascular disease) Code(s): I73.9 - PERIPHERAL VASCULAR DISEASE, UNSPECIFIED Comment: S/p recent RLE stenting Resume ASA and Eliquis when okay with ortho. Records requested and pending. (6) ESRD (end stage renal disease) Code(s): N18.6 - END STAGE RENAL DISEASE Comment: Continue peritoneal dialysis Monitor electrolytes (7) History of asthma Code(s): Z87.09 - PERSONAL HISTORY OF OTHER DISEASES OF THE RESPIRATORY SYSTEM Comment: Continue albuterol. (8) DVT prophylaxis Code(s): [id number] - Comment: Eliquis on hold. Resume per ortho. Status and Disposition: Inpatient. Dispo per ortho. Hospital medicine following for co-medical management.
[2016-07-17] MEDS: metroNIDAZOLE TAB* 250 MG PO SCH ×2 (14:58→21:25)
[2016-07-17] MEDS ORDERED: Aspirin Low Dose CHEW TAB* 81 MG PO ONE (16:29)
[2016-07-17] MEDS: Losartan TAB* 25 MG PO SCH (17:07)
[2016-07-17] MEDS: amLODIPine TAB* 5 MG PO SCH (17:07)
[2016-07-17] MEDS: Isosorbide Mononitrate ER TAB* 60 MG PO SCH (17:08)
[2016-07-17] MEDS: Atorvastatin* 80 MG TAB PO SCH (17:08)
[2016-07-17] MEDS: Omeprazole CAP* 20 MG PO SCH (17:14)
[2016-07-17] MEDS: Mupirocin 2% OINT* TUBE TOPICAL SCH (18:45)
[2016-07-17] MEDS ORDERED: Apixaban* 5 MG TAB PO SCH (21:00)
[2016-07-17] MEDS: Apixaban* 2.5 MG TAB PO SCH (21:25)
--- NOTE | 2016-07-17 21:55 | CONS ---
CONSULTATION REPORT: DATE OF CONSULT: 07/17/16 REQUESTING PROVIDER: Melly Grahma NP. CONSULTING SERVICE: Infectious Disease. REASON FOR CONSULTATION: Right foot infection. IMPRESSION: 1. Right foot chronic osteomyelitis complicated by cellulitis and gangrene, now status post transme tatarsal amputation. Surgical margins are pending. A year ago, culture of the right foot grew grou p B strep and staph aureus; however, recent cultures have been negative. I suspect this is polymicr obial including strep, staph, gram negative. She has not grown MRSA before. PCR's have been negati ve. Anaerobes are a consideration as well. 2. Diarrhea since starting Zosyn. I think most likely antibiotic associated. 3. End-stage renal disease, on peritoneal dialysis. 4. Peripheral vascular disease. 5. Peripheral neuropathy. RECOMMENDATION: Stop Zosyn. We will follow her diarrhea symptoms after stopping that. We will shari nge it to cefepime 1 g every 48 hours dose for peritoneal dialysis, as well as Flagyl 500 mg by mout h 3 times a day. We should plan on probably 2 weeks more of IV antibiotics to sterilize remaining b one. She can have a PICC line but because cefepime can be given every other day, maybe we can come up with an outpatient infusion scenario for her. HISTORY OF PRESENT ILLNESS: This is a 36-year-old woman with end-stage renal disease, peritoneal di alysis, and chronic right foot infection including admission in April for gangrene of the right dist al foot and toes, treated with antibiotics, is admitted now with return of cellulitis and had plan f or transmetatarsal amputation which was done yesterday. Gram stain from that procedure showed no or ganisms, no polys. Cultures negative at 24 hours as is an anaerobic culture. She has been on Zosyn since the . Yesterday, she started to have 2 or 3 loose stools a day without abdominal pain, oc casional cramps. No fevers, chills, or sweats. Her appetite has been okay. She does not have sign ificant urgency with the bowel movement. PAST MEDICAL HISTORY: 1. End-stage renal disease, on peritoneal dialysis. 2. Peripheral vascular disease. 3. Obesity. 4. Peripheral neuropathy. 5. History of right great toe amputation. 6. Status post right lower extremity angioplasty and stent. 7. Coronary artery disease. MEDICATIONS: 1. Tylenol. 2. Albuterol. 3. Bisoprolol. 4. Gabapentin. 5. Insulin glargine. 6. Insulin lispro. 7. Losartan. 8. Reglan. 9. Amlodipine. 10. Oxycodone. 11. Trazodone. 12. Zosyn. ALLERGIES: HEPARIN, ROPINIROLE, ERYTHROMYCIN, NIACIN. FAMILY HISTORY: Diabetes, no recurrent infections. SOCIAL HISTORY: She lives with her boyfriend outside of [place]. She is a smoker. No travel or sick contacts. REVIEW OF SYSTEMS: All negative except as noted above. PHYSICAL EXAM: Vital Signs: Temperature is 37, heart rate is 96, respiratory rate 16, blood pressu re 130/31, and O2 sat 98% on room air. General: She is awake, not in distress, appears comfortable . Neurologic: She is oriented x3. Follows all commands. She has no sensation to light touch in t he bilateral lower extremities. HEENT: There is no conjunctival hemorrhage. Oropharynx without les ions. Poor dentition. Neck is supple without nuchal rigidity. Lymph Nodes: There is no cervical, supraclavicular, inguinal, axillary or epitrochlear lymphadenopathy. Heart is regular and tachycard ic without murmurs. Lungs are clear to auscultation bilaterally. Abdomen: Soft, nontender, nondis tended. There is a peritoneal dialysis catheter without surrounding tenderness or erythema. Skin: There is no rash or splinter hemorrhages. Musculoskeletal: The right foot is casted. DIAGNOSTIC STUDIES/LAB DATA: White blood cell count 8 down from 11, hemoglobin 10, platelets 235. Creatinine 4, potassium 3.6, CRP was 26 on admission. Please see impressions and recommendations outlined above. Thank you for asking me to see Ms. Wright in consultation. [id number]/[facility] #: [id number]
[2016-07-18] MEDS: HYDROmorphone* 1 MG/ML 1 ML SYR IV PRN ×2 (00:20→11:08)
[2016-07-18] MEDS: Ondansetron INJ* 2 MG/ML VIAL IV PRN (00:58)
[2016-07-18] MEDS: NS 0.9% 1000 ML* 1,000 ML IV SCH (01:56)
[2016-07-18] MEDS ORDERED: PROCHLORPERAZINE INJ 5 MG/ML 2 ML VIAL IV PRN (03:05)
[2016-07-18] MEDS: Insulin LISPRO* 1 UNITS UNIT SUBCUT SCH ×4 (07:46→11:52)
[2016-07-18] MEDS ORDERED: Aspirin Low Dose CHEW TAB* 81 MG PO SCH (09:00)
[2016-07-18] MEDS: Mupirocin 2% OINT* TUBE TOPICAL SCH (10:05)
[2016-07-18] MEDS: Docusate CAP* 100 MG PO SCH (10:05)
[2016-07-18] MEDS: Apixaban* 2.5 MG TAB PO SCH (10:09)
[2016-07-18] MEDS: Gabapentin CAP(*) 300 MG PO SCH (10:09)
[2016-07-18] MEDS: metroNIDAZOLE TAB* 250 MG PO SCH (10:09)
[2016-07-18] MEDS: Bisoprolol TAB* 5 MG PO SCH (10:10)
--- NOTE | 2016-07-18 11:24 | PN ---
Progress Note - Progress Note SOAP: Subjective: DOS: 07/18/16 CC: osteomyelitis HPI: 36 year old diabetic with right forefoot gangrene and cellulitis s/p TMA. No pain, fever, rash, diarrhea. She is sick of being in hospital and notes she is leaving today. Objective: [] Vital Signs Temp 37.3 C 07/18/16 07:15 Pulse 99 07/18/16 07:15 Resp 18 07/18/16 11:08 BP 145/51 07/18/16 07:15 Pulse Ox 100 07/18/16 07:48 Intake & Output 07/17/16 07/18/16 07/18/16 18:59 06:59 18:59 Intake Total 860 2359 740 Output Total 500 0 Balance 860 1859 740 Intake: IV Fluids 1519 NS (0.9%) 1464 zofran 55 Oral 860 840 740 Output: Urine 0 0 Emesis 500 Other: Estimated Void Medium # Bowel Movements 1 Estimated Stool Amount Medium # Voids 2 Gen:awake, no distress HEENT:PERRL, MMM Neck:Supple Heart:RRR no murmur Abd:non tender non distended Skin: no rash MSK: R foot casted Laboratory Results - last 24 hr 07/17/16 07/17/16 07/17/16 11:54 17:19 21:16 POC Glucose (mg/dL) 111 H 71 L 150 H 07/18/16 07:42 POC Glucose (mg/dL) 119 H Microbiology 07/16/16 14:30 Anaerobic Culture - Preliminary Wound - Right No Growth Day 2 07/16/16 14:30 Gram Stain - Final Foot Right Wound Culture - Final No Growth Day 2 Assessment: 1. right forefoot chronic osteomyelitis, likely polymicrobial s/p TMA 2. diabetes with neuropathy 3. ESRD/PD 4. PAD Plan: 1. I recommended she stay for longer course of IV antibiotics to prevent further loss of limb or life, she understands that concern but is adamant that she will leave today as she is sick of being here. No good outpatient IV options for her as she can't have a PICC due to ESRD, she declines every other day peripheral IV placement at infusion center. I do not feel a central catheter in IJ or SC is safe for outpatient treatment. Will use levaquin 500 mg po every other day and flagyl 500 mg po tid x21 days.
--- NOTE | 2016-07-18 11:40 | PN ---
Progress Note - Progress Note SOAP: Subjective: []Patient seen at bedside, refusing further IV antibiotic therapy today and states she will be going home regardless. She has been non compliant with her non weight bearing status and continues to place full weight on the hindfoot section of her splint despite repeated cues and reminders. Dr. Benavidez has instituted a PO antibiotic regimen as she is refusing every other day IV antibiotic infusion as she is unable to have PICC line placement due to possible need for dialysis fistula in the arm in the future. Failed fistula is noted X1. Objective: [] Vital Signs Temp 99.1 F 07/18/16 07:15 Pulse 99 07/18/16 07:15 Resp 18 07/18/16 11:08 BP 145/51 07/18/16 07:15 Pulse Ox 100 07/18/16 07:48 Intake & Output 07/17/16 07/18/16 07/18/16 18:59 06:59 18:59 Intake Total 860 2359 740 Output Total 500 0 Balance 860 1859 740 Intake: IV Fluids 1519 NS (0.9%) 1464 zofran 55 Oral 860 840 740 Output: Urine 0 0 Emesis 500 Other: Estimated Void Medium # Bowel Movements 1 Estimated Stool Amount Medium # Voids 2 Laboratory Results - last 24 hr 07/17/16 07/17/16 07/17/16 11:54 17:19 21:16 POC Glucose (mg/dL) 111 H 71 L 150 H 07/18/16 07:42 POC Glucose (mg/dL) 119 H Microbiology 07/16/16 14:30 Anaerobic Culture - Preliminary Wound - Right No Growth Day 2 07/16/16 14:30 Gram Stain - Final Foot Right Wound Culture - Final No Growth Day 2 splint remains intact at this point despite her non compliance in weight bearing Assessment: []s/p TMA Right foot for gangrene/osteo POD #2 Plan: []Levaquin 500mg every other day and Flagyl TID for 21 days Follow up with Dr. Garcia next week in office
[2016-07-18] MEDS: Insulin GLARGINE(*) 1 UNITS UNIT SUBCUT SCH (11:55)
[2016-07-18] MEDS ORDERED: Levofloxacin TAB* 500 MG PO SCH (12:00)
[2016-07-18 12:17] VITALS: BP 142/40
--- NOTE | 2016-07-18 12:51 | PN ---
Subjective Date of Service: 07/18/16 Interval History: Patient states she is leaving today. Does not want anyone else examining her but states "I'm fine." Seen earlier by ortho and ID. Patient reportedly non-compliant with weight bearing status. Family History: Findings - F - DM, M - DM Social History: Findings - PPD smoker x 20 years, no EtOH Past Medical History: Findings - HTN, HLD, CAD, ESRD on PD, neuropathy Objective Active Medications: Acetaminophen (Tylenol Tab*) 975 mg PO Q8H PRN PRN Reason: PAIN Albuterol (Ventolin 2.5 Mg/3 Ml Neb.Kaylynn*) 2.5 mg INH Q6H PRN PRN Reason: SHORTNESS OF BREATH Albuterol (Ventolin Hfa Inhaler*) 2 puff INH Q6H PRN PRN Reason: WHEEZING Amlodipine Besylate (Norvasc Tab*) 10 mg PO QPM [facility] Last Admin: 07/17/16 17:07 Dose: Not Given Apixaban (Eliquis) 2.5 mg PO BID [facility] Last Admin: 07/18/16 10:09 Dose: 2.5 mg Aspirin (Aspirin Low Dose Tab*) 81 mg PO DAILY [facility] Last Admin: 07/18/16 10:10 Dose: 81 mg Atorvastatin Calcium (Lipitor*) 80 mg PO QPM [facility] Last Admin: 07/17/16 17:08 Dose: 80 mg Bisoprolol Fumarate (Zebeta Tab*) 10 mg PO QAM [facility] Last Admin: 07/18/16 10:10 Dose: 10 mg Dextrose (D50w Syringe 50 Ml*) 12.5 gm IV PUSH .FOR FS < 60 - SS PRN PRN Reason: FS < 60 Diphenhydramine HCl (Benadryl Iv*) 25 mg IV Q6H PRN PRN Reason: itching Docusate Sodium (Colace Cap*) 100 mg PO BID [facility] Last Admin: 07/18/16 10:05 Dose: Not Given Gabapentin (Neurontin Cap(*)) 300 mg PO TID [facility] Last Admin: 07/18/16 10:09 Dose: 300 mg Hydromorphone HCl (Dilaudid Iv*) 0.5 mg IV Q2H PRN PRN Reason: PAIN Last Admin: 07/18/16 11:08 Dose: 0.5 mg Sodium Chloride (Ns 0.9% 1000 Ml*) 1,000 mls @ 75 mls/hr IV PER RATE [facility] Last Admin: 07/18/16 01:56 Dose: 75 mls/hr Insulin Glargine (Lantus(*)) 60 units SUBCUT Q12H [facility] Last Admin: 07/18/16 11:55 Dose: Not Given Insulin Human Lispro (Humalog*) 0 units SUBCUT ACHS [facility] PRN Reason: Protocol Last Admin: 07/18/16 11:52 Dose: Not Given Insulin Human Lispro (Humalog*) 0 units SUBCUT AC NICOLASA PRN Reason: Protocol Last Admin: 07/18/16 11:52 Dose: Not Given Isosorbide Mononitrate (Imdur Er Tab*) 60 mg PO QPM [facility] Last Admin: 07/17/16 17:08 Dose: 60 mg Levofloxacin (Levaquin Tab*) 500 mg PO Q48H [facility] Last Admin: 07/18/16 11:47 Dose: 500 mg Losartan Potassium (Cozaar Tab*) 100 mg PO QPM [facility] Last Admin: 07/17/16 17:07 Dose: Not Given Metoclopramide HCl (Reglan Tab*) 5 mg PO Q6H PRN PRN Reason: NAUSEA Last Admin: 07/14/16 18:59 Dose: 5 mg Metronidazole (Flagyl Tab*) 500 mg PO TID [facility] Last Admin: 07/18/16 10:09 Dose: 500 mg Mupirocin (Bactroban 2 % Oint*) 1 applic TOPICAL DAILY [facility] Last Admin: 07/18/16 10:05 Dose: Not Given Omeprazole (Prilosec Cap*) 20 mg PO 1630 [facility] Last Admin: 07/17/16 17:14 Dose: 20 mg Ondansetron HCl (Zofran Inj*) 4 mg IV Q6H PRN PRN Reason: nausea Last Admin: 07/18/16 00:58 Dose: 4 mg Oxycodone HCl (Roxycodone Tab*) 5 mg PO Q3H PRN PRN Reason: PAIN - MILD Oxycodone HCl (Roxycodone Tab*) 10 mg PO Q3H PRN PRN Reason: PAIN - MODERATE Oxycodone HCl (Roxycodone Tab*) 15 mg PO Q3H PRN PRN Reason: PAIN - SEVERE Last Admin: 07/17/16 17:08 Dose: 15 mg Prochlorperazine Edisylate (Compazine Inj*) 10 mg IV Q6H PRN PRN Reason: NAUSEA Last Admin: 07/18/16 03:27 Dose: 10 mg Vital Signs 07/17/16 07/17/16 07/17/16 12:51 13:02 14:01 Temperature Pulse Rate Respiratory 16 16 16 Rate Blood Pressure (mmHg) O2 Sat by Pulse Oximetry 07/17/16 07/17/16 07/17/16 15:00 15:01 15:33 Temperature Pulse Rate Respiratory 16 16 Rate Blood Pressure (mmHg) O2 Sat by Pulse 98 Oximetry 07/17/16 07/17/16 07/17/16 15:59 16:01 16:21 Temperature 98.7 F Pulse Rate 103 Respiratory 16 16 16 Rate Blood Pressure 133/64 (mmHg) O2 Sat by Pulse 94 Oximetry 07/17/16 07/17/16 07/17/16 17:08 17:21 18:37 Temperature Pulse Rate Respiratory 18 16 16 Rate Blood Pressure (mmHg) O2 Sat by Pulse Oximetry 07/17/16 07/17/16 07/17/16 19:08 19:34 19:37 Temperature 98.2 F Pulse Rate 97 Respiratory 16 16 16 Rate Blood Pressure 98/42 (mmHg) O2 Sat by Pulse 94 Oximetry 07/17/16 07/17/16 07/17/16 19:40 21:26 21:31 Temperature Pulse Rate Respiratory 16 16 16 Rate Blood Pressure (mmHg) O2 Sat by Pulse Oximetry 07/17/16 07/17/16 07/18/16 22:31 23:26 00:00 Temperature Pulse Rate Respiratory 16 16 Rate Blood Pressure (mmHg) O2 Sat by Pulse 100 Oximetry 07/18/16 07/18/16 07/18/16 00:11 00:20 01:20 Temperature 98.2 F Pulse Rate 110 Respiratory 16 16 16 Rate Blood Pressure 128/83 (mmHg) O2 Sat by Pulse 100 Oximetry 07/18/16 07/18/16 07/18/16 07:15 07:48 10:09 Temperature 99.1 F Pulse Rate 99 Respiratory 17 16 16 Rate Blood Pressure 145/51 (mmHg) O2 Sat by Pulse 94 100 Oximetry 07/18/16 07/18/16 07/18/16 11:08 11:15 12:04 Temperature 98.3 F Pulse Rate 94 Respiratory 18 16 16 Rate Blood Pressure 142/40 (mmHg) O2 Sat by Pulse 94 Oximetry Oxygen Devices in Use Now: None Appearance: Limited assessment, patient ready for discharge, declines full examination Ears/Nose/Mouth/Throat: Mucous Membranes Moist Respiratory: Symmetrical Chest Expansion and Respiratory Effort Extremities: - - RLE splint c/d/i Neurological: Alert and Oriented x 3 Nutrition: Taking PO's Result Diagrams: 07/17/16 10:00 07/17/16 10:00 Microbiology and Other Data: Microbiology 07/16/16 14:30 Anaerobic Culture - Preliminary Wound - Right No Growth Day 1 07/16/16 14:30 Gram Stain - Final Foot Right Wound Culture - Preliminary No Growth Day 1 Assess/Plan/Problems-Billing Worsening RLE wound, cellulitis, osteomyelitis admitted for planned TMA by Dr. Garcia in a 36 yo F with hx of HTN, HLD, CAD, PVD s/p recent LE stenting on Eliquis, neuropathy - Patient Problems (1) Cellulitis of right lower extremity Code(s): L03.115 - CELLULITIS OF RIGHT LOWER LIMB Comment: With osteomyelitis POD #2 s/p right TMA Patient declines any further IV antibiotics and refuses to come as outpatient. Continue Levaquin and Flagyl PO per ID. Appreciate ID consult. Continue analgesia per Ortho Cardiac catheterization report from [facility] shows small caliber vessel disease of the distal LCA and RCA and no significant LAD disease; no indication for bypass surgery. Continue medical management. EKG shows NSR with no ischemic changes. Ms. Wright has an RCRI score of 2, carrying a 6.6% risk of major cardiac event during surgery. No further cardiac testing is indicated at this time. (2) Diabetes Code(s): E11.9 - TYPE 2 DIABETES MELLITUS WITHOUT COMPLICATIONS Comment: HgbA1c 14.3 Patient uncontrolled diabetic, as evidenced by BG values here and persistently high A1c values. Resume home Lantus and Novolog. Referral to [facility] for diabetes and nutritonal counseling. (3) HTN (hypertension) Code(s): I10 - ESSENTIAL (PRIMARY) HYPERTENSION Comment: Normotensive Continue amlodipine, bisoprolol, losartan. (4) CAD (coronary artery disease) Code(s): I25.10 - ATHSCL HEART DISEASE OF [place] CORONARY ARTERY W/O ANG PCTRS Comment: Continue ASA, isosorbide, atorvastatin. (5) PVD (peripheral vascular disease) Code(s): I73.9 - PERIPHERAL VASCULAR DISEASE, UNSPECIFIED Comment: S/p recent RLE stenting Continue ASA and Eliquis Eliquis renally dosed per pharmacy. Continue reduced dose, given ESRD. (6) ESRD (end stage renal disease) Code(s): N18.6 - END STAGE RENAL DISEASE Comment: Continue peritoneal dialysis Monitor electrolytes (7) History of asthma Code(s): Z87.09 - PERSONAL HISTORY OF OTHER DISEASES OF THE RESPIRATORY SYSTEM Comment: Continue albuterol. (8) DVT prophylaxis Code(s): CLH2661 - Comment: Eliquis Status and Disposition: Inpatient. Dispo per ortho. Hospital medicine following for co-medical management.
--- NOTE | 2016-07-19 03:14 | DS ---
DISCHARGE SUMMARY: DATE OF ADMISSION: 07/13/16 DATE OF DISCHARGE: 07/18/16 ATTENDING PHYSICIAN: Dr. Sebastien Garcia. ADMISSION DIAGNOSIS: Right forefoot osteomyelitis. DISCHARGE DIAGNOSIS: Right forefoot osteomyelitis. SURGERY PERFORMED: Transmetatarsal amputation of the right foot. HOSPITAL COURSE: The patient is a 36-year-old female known to Dr. Garcia with a complicated past medical history of hypertension, uncontrolled diabetes mellitus, peripheral vascular disease, end-stage renal disease, asthma, hypertension with previous first MTP joint disarticulation due to infection. The patient was seen by Dr. Garcia in the office on the 11 of July, it was felt that she would need direct admit to the hospital with planning of further amputation at the transmetatarsal level once she was medically optimized for surgery. She was admitted on the 13 of July, and started on Zosyn IV. She was unable to tolerate this medication secondary to diarrhea. She was seen and evaluated by Dr. Benavidez, who changed her IV regimen to cefepime and Flagyl. The patient was fairly non-compliant during her hospital stay with her weightbearing status despite a non-weightbearing order by Dr. Garcia. The patient continued to ambulate on the plantar aspect of her right lower extremity splint despite cues and reminders of the non-weightbearing status. The patient was told that she could jeopardize the operative incision site by breaking down the splint and possibly causing a wound dehiscence. The patient did not heed this warning. She also stated that she would sign out AMA, on , regardless of having antibiotic regimen in place. She was seen by Dr. Benavidez again today, and due to the fact that she is refusing every other day cefepime IV antibiotic therapy and cannot have a PICC line due to her end-stage renal disease and possibility of needing peripheral access on the other arm, IV antibiotics were not an option. Dr. Benavidez felt that p.o. Levaquin 500 mg every other day for 3 weeks and Flagyl 500 mg 3 times daily for 3 weeks could be sufficient, although IV antibiotic therapy is the first recommendation. The patient wants to be discharged on p.o. antibiotic regimen. CONDITION ON DISCHARGE: Her white count came down to 8.5 on . H and H stable. Her vital signs are stable. She is afebrile. Her splint remains in good repair despite her bearing weight through the plantar aspect. There is no noted drainage on her right lower extremity splint. Her pain is satisfactorily controlled. PLAN: Discharge to home, 07/18/16. Recommend to follow up with Dr. Garcia in 7 to 10 days. Again, I reiterated the importance of remaining non- weightbearing on the right lower extremity. Prescriptions of Flagyl 500 mg t.i.d. x21 days, Levaquin 500 mg p.o. every other day x21 days, and Dilaudid 2 mg p.o. q.4 hours p.r.n. 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 GIOVANNI MADRID [id number]/[facility] #: [id number] MTDD
--- NOTE | 2016-07-19 04:05 | DS ---
DISCHARGE SUMMARY: DATE OF ADMISSION: 07/13/16 DATE OF DISCHARGE: 07/18/16 ADMISSION DIAGNOSIS: Right forefoot osteomyelitis. DISCHARGE DIAGNOSIS: Right forefoot osteomyelitis. SURGERY PERFORMED: Right transmetatarsal amputation. HISTORY OF PRESENT ILLNESS: The patient is a 36-year-old female, who has been followed by Dr. Magen marquez. She is an insulin-dependent obese diabetic with significant peripheral and central vascular dise ase, peritoneal dialysis, hypertension, recent right lower extremity stenting, and neuropathy that s aw Dr. Garcia in followup on 07/12/16 and was found to have full-thickness ulceration of the central toes of the right forefoot with mummification and wet gangrene close to the MTP joint. It was felt that she would benefit from a transmetatarsal amputation and was admitted directly to [facility] on . DICTATION ENDS ABRUPTLY HERE GIOVANNI MADRID [id number]/[facility] #: [id number]
[2016-07-19] MEDS ORDERED: Cefepime(*) 1 GM in NS 0.9% 50 ML* 50 ML IVPB SCH (09:00)
== END 2016-07-18 13:30 | disposition home or self-care (01) | DRG 305 ==
LOC: SSU 14:58
PROVIDERS: ADMIT Orthopaedic Surgery; ATTEND Orthopaedic Surgery
PROC: 3E1M39Z Irrigation of Peritoneal Cavity using Dialysate, Percutaneous Approach (ICD-10-PCS; 2016-07-14)
PROC: 0Y6M0Z0 Detachment at Right Foot, Complete, Open Approach (ICD-10-PCS; principal; 2016-07-16 12:15)
DX: E11.69 Type 2 diabetes mellitus with other specified complication (principal); M86.171 Other acute osteomyelitis, right ankle and foot; K52.1 Toxic gastroenteritis and colitis; E11.52 Type 2 diabetes mellitus with diabetic peripheral angiopathy with gangrene; N18.6 End stage renal disease; I13.11 Hypertensive heart and chronic kidney disease without heart failure, with stage 5 chronic kidney disease, or end stage renal disease; L03.115 Cellulitis of right lower limb; E11.65 Type 2 diabetes mellitus with hyperglycemia; E11.22 Type 2 diabetes mellitus with diabetic chronic kidney disease; I25.10 Atherosclerotic heart disease of native coronary artery without angina pectoris; J45.909 Unspecified asthma, uncomplicated; E78.5 Hyperlipidemia, unspecified; E66.9 Obesity, unspecified; Z68.37 Body mass index [BMI] 37.0-37.9, adult; Z99.2 Dependence on renal dialysis; Z79.01 Long term (current) use of anticoagulants; Z79.4 Long term (current) use of insulin; Z79.899 Other long term (current) drug therapy; Z88.5 Allergy status to narcotic agent; Z88.1 Allergy status to other antibiotic agents; Z88.8 Allergy status to other drugs, medicaments and biological substances; Z91.048 Other nonmedicinal substance allergy status; Z91.19 Patient's noncompliance with other medical treatment and regimen; F17.210 Nicotine dependence, cigarettes, uncomplicated; Z83.3 Family history of diabetes mellitus; T36.0X5A Adverse effect of penicillins, initial encounter; Y92.230 Patient room in hospital as the place of occurrence of the external cause; E11.621 Type 2 diabetes mellitus with foot ulcer; L97.514 Non-pressure chronic ulcer of other part of right foot with necrosis of bone
CPT/HCPCS: 36415; 80048; 83036; 84702; 85014; 85018; 85025; 85652; 86140; 87070; 87073; 87205; 90945; 93005; 94760; A9270-GY; G0257; J0692; J0780; J1170; J2270; J2405; J2543; J3010

== ENCOUNTER 2016-07-19 22:51 | Emergency (ER) | payer OTHER ==
[2016-07-20 00:29] LABS: Albumin 2.6 g/dL (3.2-5.2); C Reactive Protein 85.75 mg/L (< 5.00); Calcium 8.6 mg/dL (8.6-10.3); EGFR African American 21.4 (>60); EGFR Non-African American 16.7 (>60); Globulin 3.3 g/dL (2-4); Total Bilirubin 0.2 mg/dL (0.2-1.0); Total Protein 5.9 g/dL (6.4-8.9)
[2016-07-20 00:39] LABS: Hematocrit 34 % (35-47); Mean Corpuscular HGB Conc 32 g/dl (31-36); Mean Corpuscular Hemoglobin 30 pg (27-31); Mean Corpuscular Volume 92 fL (80-97); Mean Platelet Volume 8 um3 (7.4-10.4); Red Blood Count 3.71 10^6/ul (4.0-5.4); Red Cell Distribution Width 15 % (10.5-15); White Blood Count 10.7 10^3/ul (3.5-10.8)
[2016-07-20 02:39] VITALS: BP 144/73
[2016-07-20] MEDS ORDERED: HYDROmorphone TAB* 4 MG PO ONE (02:47)
--- NOTE | 2016-07-20 02:57 | ED ---
Camilo Palacio Benjamin, scribed for Wilfrid Beal MD on 07/19/16 at 2357 . HPI Febrile Illness - HPI Summary HPI Summary: 36yo female with s/p right foot amputation on Saturday. Pt states having fever, chills, cold sweats, increasing swelling and pain in right ankle. Pt also reports cough and congestion. - History of Current Complaint Chief Complaint: EDFever Time Seen by Provider: 07/19/16 23:48 Hx Obtained From: Patient Onset/Duration: Started Days Ago, Still Present Timing: Constant Initial Severity: Mild Current Severity: Moderate Pain Intensity: 7 Pain Scale Used: 0-10 Numeric Aggravating Factors: Nothing Alleviating Factors: Nothing Associated Signs and Symptoms: Chills, Cough, Leg Swelling - right, Night Sweats - Additional Pertinent History Primary Care Physician: FELIX - Allergy/Home Medications Allergies/Adverse Reactions: Allergies Allergy/AdvReac Type Severity Reaction Status Date / Time Heparin Allergy See Comment Verified 07/11/16 15:08 Ropinirole [From Requip] Allergy Hives Verified 07/11/16 15:08 Erythromycin AdvReac "DOESN'T Verified 07/11/16 15:08 WORK" Niacin AdvReac Hives Verified 07/13/16 09:34 plastic tape Allergy Blisters Uncoded 07/13/16 09:34 PMH/Surg Hx/FS Hx/Imm Hx Endocrine/Hematology History: Reports: Hx Anticoagulant Therapy - Aspirin., Hx Blood Transfusions, Hx Diabetes - insulin control, Hx Thyroid Disease - nodule biopsied, normal, Hx Anemia - hx of - reports had tranfusion in 2013 after mi Cardiovascular History: Reports: Hx Angina, Hx Cardiac Arrest - in 2013 with CPR, Hx Coronary Artery Disease, Hx Hypercholesterolemia, Hx Hypertension - on med, Hx Myocardial Infarction, Other Cardiovascular Problems/Disorders - hyperlipidemia Denies: Hx Congestive Heart Failure, Hx Deep Vein Thrombosis, Hx Pacemaker/ ICD, Hx Valvular Heart Disease Respiratory History: Reports: Hx Asthma - inhaler, Hx Chronic Obstructive Pulmonary Disease (COPD) - smoker, Hx Sleep Apnea - pt reports thinks, but no official testing done yet, Other Respiratory Problems/Disorders - acute respipatory failure with hypoxia - jan 2016 Denies: Hx Lung Cancer, Hx Pneumonia, Hx Pulmonary Embolism GI History: Reports: Hx Gastroesophageal Reflux Disease - on med, Other GI Disorders - GASTROPARESIS - TAKING OMEPRAZOLE Denies: Hx Gall Bladder Disease, Hx Gastrointestinal Bleed, Hx Ulcer, Hx Urosepsis History: Reports: Hx Chronic Renal Failure, Hx Dialysis - PERITONEAL BUT DOES HAVE FISTULA ON LEFT ARM, Hx Kidney Stones - in past, Hx Renal Disease - ESRD on home peritoneal dialysis , Other Problems/Disorders - ESRD- URINATES A SMALL AMOUNT Musculoskeletal History: Reports: Hx Arthritis - back, hips, Hx Back Problems - Sciatica and Herniated L3 disk Sensory History: Reports: Hx Eye Prosthesis - left, Hx Legally Blind, Hx Vision Problem Denies: Hx Contacts or Glasses, Hx Hearing Aid Opthamlomology History: Reports: Hx Eye Prosthesis - left, Hx Legally Blind, Hx Vision Problem Denies: Hx Contacts or Glasses Neurological History: Reports: Other Neuro Impairments/Disorders - neuropathy Denies: Hx Transient Ischemic Attacks (TIA) Psychiatric History: Reports: Hx Anxiety - on med, Hx Depression - on med, Hx Bipolar Disorder Denies: Hx Panic Disorder, Hx Schizophrenia - Cancer History Cancer Type, 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 MELANOMA REMOVED FROM [facility] 2012 (PROCEDURE DONE 4X);. CARDIAC CATH 2013 - NO STENTS;. LEFT WRIST FISTULA PLACEMENT ([facility]) 2013;. HEMODIALYSIS CATH RIGHT CHEST WALL 2013;. PERITONEAL DIALYSIS CATH 03/2014;. [place] [facility] [place] [facility] [place]. [place]AC[place] RIGHT JUGULAR [place]IO [place] [facility] [place]. REMOVAL OF JUGULAR CATH - OCT 2015. CARDIAC CATH - stentsx2 right leg Hx Anesthesia Reactions: No - Immunization History Date of Tetanus Vaccine: UTD Date of Influenza Vaccine: 10/10/15 Infectious Disease History: Reports: Hx of Known/Suspected MRSA - MRSA R 1st toe Denies: Hx Hepatitis, Hx Human Immunodeficiency Virus (HIV), Hx Shingles, Hx Tuberculosis, History Other Infectious Disease, Traveled Outside the [place] in Last 30 Days - Family History Known Family History: Positive: Cardiac Disease - father [place] at 42 y/o, Hypertension - Social History Lives: With Family Alcohol Use: None Hx Substance Use: No Substance Use Type: Reports: None Substance Use Comment - Amount & Last Used: using chantix to quit smoking Hx Tobacco Use: Yes Smoking Status (MU): Current Every Day Smoker Type: Cigarettes Amount Used/How Often: 5 ciagrettes/day Length of Time of Smoking/Using Tobacco: 17 YEARS Have You Smoked in the Last Year: Yes Review of Systems Positive: Fever, Chills, Skin Diaphoresis Eyes: Negative ENT: Negative Cardiovascular: Negative Positive: Cough Gastrointestinal: Negative Genitourinary: Negative Positive: Edema - RLE Skin: Negative Neurological: Negative Psychological: Normal All Other Systems Reviewed And Are Negative: Yes Physical Exam Triage Information Reviewed: Yes Vital Signs On Initial Exam: Initial Vitals Temp Pulse Resp BP Pulse Ox 98.1 F 99 16 167/84 99 07/19/16 22:55 07/19/16 22:55 07/19/16 22:55 07/19/16 22:55 07/19/16 22:55 Vital Signs Reviewed: Yes Appearance: Positive: Well-Appearing, Pain Distress - mild Skin: Positive: Warm, Skin Color Reflects Adequate Perfusion, Dry Head/Face: Positive: Normal Head/Face Inspection Eyes: Positive: EOMI, HILL[place] ENT: Positive: Normal ENT inspection Neck: Positive: Supple, Nontender Respiratory/Lung Sounds: Positive: Clear to Auscultation, Breath Sounds Present Cardiovascular: Positive: RRR Abdomen Description: Positive: Nontender, No Organomegaly, Soft Bowel Sounds: Positive: Present Musculoskeletal: Positive: Normal, Strength/ROM Intact, Other - RLE in cast; No tenderness in the popliteal area. Neurological: Positive: Normal, Sensory/Motor Intact, Alert, Oriented to Person Place, Time Psychiatric: Positive: Affect/Mood Appropriate Diagnostics - Vital Signs Vital Signs Temp Pulse Resp BP Pulse Ox 07/19/16 22:55 98.1 F 99 16 167/84 99 - Laboratory Lab Results: Lab Results 07/20/16 07/20/16 07/20/16 Range/Units 00:06 00:06 00:06 WBC 10.7 (3.5-10.8) 10^3/ul RBC 3.71 L (4.0-5.4) 10^6/ul Hgb 11.0 L (12.0-16.0) g/dl Hct 34 L (35-47) % MCV 92 (80-97) fL MCH 30 (27-31) pg MCHC 32 (31-36) g/dl RDW 15 (10.5-15) % Plt Count 342 (150-450) 10^3/ul MPV 8 (7.4-10.4) um3 Neut % (Auto) 77.1 (38-83) % Lymph % (Auto) 13.5 L (25-47) % [place] % (Auto) 6.0 (1-9) % Eos % (Auto) 2.8 (0-6) % Baso % (Auto) 0.6 (0-2) % Absolute Neuts (auto) 8.3 H (1.5-7.7) 10^3/ul Absolute Lymphs (auto) 1.4 (1.0-4.8) 10^3/ul Absolute Monos (auto) 0.6 (0-0.8) 10^3/ul Absolute Eos (auto) 0.3 (0-0.6) 10^3/ul Absolute Basos (auto) 0.1 (0-0.2) 10^3/ul Absolute Nucleated RBC 0.01 10^3/ul Nucleated RBC % 0.1 INR (Anticoag Therapy) 1.21 H (0.89-1.11) APTT 30.5 (26.0-36.3) seconds Sodium 138 (133-145) mmol/L Potassium 3.0 L (3.5-5.0) mmol/L Chloride 104 (101-111) mmol/L Carbon Dioxide 22 (22-32) mmol/L Anion Gap 12 H (2-11) mmol/L BUN 22 (6-24) mg/dL Creatinine 3.14 H (0.51-0.95) mg/dL Est GFR ( Amer) 21.4 (>60) Est GFR (Non-Af Amer) 16.7 (>60) BUN/Creatinine Ratio 7.0 L (8-20) Glucose 311 H (70-100) mg/dL Lactic Acid (0.5-2.0) mmol/L Calcium 8.6 (8.6-10.3) mg/dL Total Bilirubin 0.20 (0.2-1.0) mg/dL AST 7 L (13-39) U/L ALT 5 L (7-52) U/L Alkaline Phosphatase 68 (34-104) U/L C-Reactive Protein 85.75 H (< 5.00) mg/L Total Protein 5.9 L (6.4-8.9) g/dL Albumin 2.6 L (3.2-5.2) g/dL Globulin 3.3 (2-4) g/dL Albumin/Globulin Ratio 0.8 L (1-3) Lipase 24 (11.0-82.0) U/L / Range/Units 00:06 WBC (3.5-10.8) 10^3/ul RBC (4.0-5.4) 10^6/ul Hgb (12.0-16.0) g/dl Hct (35-47) % MCV (80-97) fL MCH (27-31) pg MCHC (31-36) g/dl RDW (10.5-15) % Plt Count (150-450) 10^3/ul MPV (7.4-10.4) um3 Neut % (Auto) (38-83) % Lymph % (Auto) (25-47) % [place] % (Auto) (1-9) % Eos % (Auto) (0-6) % Baso % (Auto) (0-2) % Absolute Neuts (auto) (1.5-7.7) 10^3/ul Absolute Lymphs (auto) (1.0-4.8) 10^3/ul Absolute Monos (auto) (0-0.8) 10^3/ul Absolute Eos (auto) (0-0.6) 10^3/ul Absolute Basos (auto) (0-0.2) 10^3/ul Absolute Nucleated RBC 10^3/ul Nucleated RBC % INR (Anticoag Therapy) (0.89-1.11) APTT (26.0-36.3) seconds Sodium (133-145) mmol/L Potassium (3.5-5.0) mmol/L Chloride (101-111) mmol/L Carbon Dioxide (22-32) mmol/L Anion Gap (2-11) mmol/L BUN (6-24) mg/dL Creatinine (0.51-0.95) mg/dL Est GFR ( Amer) (>60) Est GFR (Non-Af Amer) (>60) BUN/Creatinine Ratio (8-20) Glucose (70-100) mg/dL Lactic Acid 2.1 H* (0.5-2.0) mmol/L Calcium (8.6-10.3) mg/dL Total Bilirubin (0.2-1.0) mg/dL AST (13-39) U/L ALT (7-52) U/L Alkaline Phosphatase (34-104) U/L C-Reactive Protein (< 5.00) mg/L Total Protein (6.4-8.9) g/dL Albumin (3.2-5.2) g/dL Globulin (2-4) g/dL Albumin/Globulin Ratio (1-3) Lipase (11.0-82.0) U/L Result Diagrams: 07/20/16 00:06 07/20/16 00:06 Lab Statement: Any lab studies that have been ordered have been reviewed, and results considered in the medical decision making process. - Radiology CXR Xray Interpretation: No Acute Changes Radiology Interpretation Completed By: ED Physician Foot XR Xray Interpretation: No Acute Changes Radiology Interpretation Completed By: ED Physician Course/Dx - Course Course Of Treatment: NO CRITICAL CARE TIME Assessment/Plan: DISCUSSED RESULTS WITH PATIENT/FAMILY. AT THIS TIME, NO FEVER DOCUMENTED IN ED. WBC WNL. THE PLAN IS TO HAVE PATIENT F/U WITH ORTHOPEDICS TODAY. WE DISCUSSED RETURNING TO THE ED FOR A FEVER, IF SHE FEELS ILL, PAIN OR ANY CONCERNS. DISCHARGE HOME STABLE. - Diagnoses Provider Diagnoses: Foot pain - Provider Notifications Discussed Care Of Patient With: Dr. Gonsalves (Hospitalist) @[id number]. Discharge - Discharge Plan Condition: Stable Disposition: HOME Referrals: Aishwarya Solis MD [Primary Care Provider] - Additional Instructions: FOLLOW UP WITH ORTHOPEDICS TODAY FOR YOUR FOOT PAIN. RETURN TO THE EMERGENCY DEPARTMENT FOR ANY WORSENING OF YOUR CONDITION; FEVER, YOU FEEL ILL, PAIN OR QUESTIONS OR CONCERNS. The documentation as recorded by the Camilo sexton Benjamin accurately reflects the service I personally performed and the decisions made by me, Wilfrid Beal MD.
--- NOTE | 2016-07-20 07:42 | RAD ---
HISTORY: Fever COMPARISONS: February 09, 2016 VIEWS:1: Single frontal portable view of the chest at 12:35 AM FINDINGS: LINES AND TUBES: None. CARDIOMEDIASTINAL SILHOUETTE: The cardiomediastinal silhouette is normal for portable technique. PLEURA: The costophrenic angles are sharp. No pleural abnormalities are noted. LUNG PARENCHYMA: There is minimal patchy alveolar opacification of the right lower lung near the costophrenic angle. ABDOMEN: The upper abdomen is clear. There is no subphrenic gas. BONES AND SOFT TISSUES: No bone or soft tissue abnormalities are noted. IMPRESSION: MINIMAL RIGHT BASILAR ATELECTASIS VERSUS CONSOLIDATION. RECOMMEND FOLLOW-UP UNTIL RESOLUTION TO EXCLUDE UNDERLYING PULMONARY PARENCHYMAL PATHOLOGY
--- NOTE | 2016-07-20 07:43 | RAD ---
HISTORY: Postop fever, pain after foot amputation COMPARISONS: July 13, 2016 VIEWS: 3, Frontal, lateral, and oblique views of the right foot. Evaluation is limited by the presence of a cast sutures fine bone detail. FINDINGS: BONE DENSITY: Normal. BONES: There is been interval amputation of the forefoot at the level of the metatarsal diaphyses. JOINTS: There is no arthropathy. ALIGNMENT: There is no dislocation. SOFT TISSUES: Unremarkable. OTHER FINDINGS: None. IMPRESSION: STATUS POST AMPUTATION OF THE FOREFOOT
== END 2016-07-20 03:15 | disposition home or self-care (01) ==
LOC: ED 22:51
DX: M79.671 Pain in right foot (principal); Z89.431 Acquired absence of right foot; F17.210 Nicotine dependence, cigarettes, uncomplicated; Z79.82 Long term (current) use of aspirin; Z79.4 Long term (current) use of insulin; I25.2 Old myocardial infarction; J44.9 Chronic obstructive pulmonary disease, unspecified; I12.0 Hypertensive chronic kidney disease with stage 5 chronic kidney disease or end stage renal disease; E11.22 Type 2 diabetes mellitus with diabetic chronic kidney disease; N18.6 End stage renal disease; Z99.2 Dependence on renal dialysis; H54.0 Blindness, both eyes
CPT/HCPCS: 36415; 71010; 80053; 83605; 83690; 85025; 85610; 85730; 86140; 87040; 99283; A9270-GY

== ENCOUNTER 2016-07-20 18:34 | Emergency (ER) | payer OTHER ==
[2016-07-20] MEDS ORDERED: Ondansetron ODT TAB* 4 MG PO ONE (21:49)
--- NOTE | 2016-07-20 22:29 | ED ---
Lower Extremity - HPI Summary HPI Summary: 36 female presents with complaints of her cast on her right lower leg being too tight and painful. Patient had a partial amputation of her right toes/foot due to gangrene from uncontrolled diabetes on Saturday07/16/16 [place] [facility] [place]. She was seen here yesterday 07/19/16 for similar complaints of burning, pain, swelling and thought it was infected. She had a full work up, imaging and labs obtained with everything coming back in normal limits. Patient was d/c. Returns today with complaints that the swelling and pain has increased and worsened and she would like the cast off. Denies any fever/chills. Admits to some nausea however relates that to the dilaudid that she is taking for pain. Last dose was at 6pm [employer]. No other complaints at this time. Does have some numbness of her right lower extremity that is her norm. - History of Current Complaint Chief Complaint: EDExtremityLower Stated Complaint: RT FOOT SWOLLEN Time Seen by Provider: 07/20/16 20:20 Hx Obtained From: Patient Hx Last Menstrual Period: 07/06/16 Onset of Pain: Days Onset/Duration: Days Severity Initially: Mild Severity Currently: Moderate Pain Intensity: 7 Pain Scale Used: 0-10 Numeric Timing: Constant Location: Is Discrete @ - lower right leg Character Of Pain: Aching, Throbbing, Burning Associated Signs And Symptoms: Positive: Swelling Aggravating Factor(s): Movement Alleviating Factor(s): Rest, Nothing Able to Bear Weight: No - is restricted to due recent surgery - Allergies/Home Medications Allergies/Adverse Reactions: Allergies Allergy/AdvReac Type Severity Reaction Status Date / Time Heparin Allergy See Comment Verified 07/11/16 15:08 Ropinirole [From Requip] Allergy Hives Verified 07/11/16 15:08 Erythromycin AdvReac "DOESN'T Verified 07/11/16 15:08 WORK" Niacin AdvReac Hives Verified 07/13/16 09:34 plastic tape Allergy Blisters Uncoded 07/13/16 09:34 PMH/Surg Hx/FS Hx/Imm Hx Endocrine/Hematology History: Reports: Hx Anticoagulant Therapy - Aspirin., Hx Blood Transfusions, Hx Diabetes - insulin control, Hx Thyroid Disease - nodule biopsied, normal, Hx Anemia - hx of - reports had tranfusion in 2013 after mi Cardiovascular History: Reports: Hx Angina, Hx Cardiac Arrest - in 2013 with CPR, Hx Coronary Artery Disease, Hx Hypercholesterolemia, Hx Hypertension - on med, Hx Myocardial Infarction, Other Cardiovascular Problems/Disorders - hyperlipidemia Denies: Hx Congestive Heart Failure, Hx Deep Vein Thrombosis, Hx Pacemaker/ ICD, Hx Valvular Heart Disease Respiratory History: Reports: Hx Asthma - inhaler, Hx Chronic Obstructive Pulmonary Disease (COPD) - smoker, Hx Sleep Apnea - pt reports md thinks, but no official testing done yet, Other Respiratory Problems/Disorders - acute respipatory failure with hypoxia - jan 2016 Denies: Hx Lung Cancer, Hx Pneumonia, Hx Pulmonary Embolism GI History: Reports: Hx Gastroesophageal Reflux Disease - on med, Other GI Disorders - GASTROPARESIS - TAKING OMEPRAZOLE Denies: Hx Gall Bladder Disease, Hx Gastrointestinal Bleed, Hx Ulcer, Hx Urosepsis History: Reports: Hx Chronic Renal Failure, Hx Dialysis - PERITONEAL BUT DOES HAVE FISTULA ON LEFT ARM, Hx Kidney Stones - in past, Hx Renal Disease - ESRD on home peritoneal dialysis , Other Problems/Disorders - ESRD- URINATES A SMALL AMOUNT Musculoskeletal History: Reports: Hx Arthritis - back, hips, Hx Back Problems - Sciatica and Herniated L3 disk Sensory History: Reports: Hx Eye Prosthesis - left, Hx Legally Blind, Hx Vision Problem Denies: Hx Contacts or Glasses, Hx Hearing Aid Opthamlomology History: Reports: Hx Eye Prosthesis - left, Hx Legally Blind, Hx Vision Problem Denies: Hx Contacts or Glasses Neurological History: Reports: Other Neuro Impairments/Disorders - neuropathy Denies: Hx Transient Ischemic Attacks (TIA) Psychiatric History: Reports: Hx Anxiety - on med, Hx Depression - on med, Hx Bipolar Disorder Denies: Hx Panic Disorder, Hx Schizophrenia - Cancer History Cancer Type, 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 MELANOMA REMOVED FROM [facility]VA 2012 (PROCEDURE DONE 4X);. CARDIAC CATH 2013 - NO STENTS;. LEFT WRIST FISTULA PLACEMENT ([facility]) 2013;. HEMODIALYSIS CATH RIGHT CHEST WALL 2013;. PERITONEAL DIALYSIS CATH 03/2014;. [place] C[place] [facility] [place]. [place]AT [place] [facility] [place]. PLACEMENT RIGHT JUGULAR TESIO HEMODIALYSIS CATHETER [facility] [place];. REMOVAL OF JUGULAR CATH - OCT 2015. CARDIAC CATH - stentsx2 right leg Hx Anesthesia Reactions: No - Immunization History Date of Tetanus Vaccine: UTD Date of Influenza Vaccine: 10/10/15 Infectious Disease History: No Infectious Disease History: Reports: Hx of Known/Suspected MRSA - MRSA R 1st toe Denies: Hx Hepatitis, Hx Human Immunodeficiency Virus (HIV), Hx Shingles, Hx Tuberculosis, History Other Infectious Disease, Traveled Outside the [place] in Last 30 Days - Family History Known Family History: Positive: Cardiac Disease - father [place] at 42 y/o, Hypertension - Social History Alcohol Use: None Hx Substance Use: No Substance Use Type: Reports: None Substance Use Comment - Amount & Last Used: using chantix to quit smoking Hx Tobacco Use: Yes Smoking Status (MU): Current Every Day Smoker Type: Cigarettes Amount Used/How Often: 5 ciagrettes/day Length of Time of Smoking/Using Tobacco: 17 YEARS Have You Smoked in the Last Year: Yes Review of Systems Constitutional: Negative Cardiovascular: Negative Respiratory: Negative Positive: Arthralgia, Myalgia - right lower extremity Neurological: Negative All Other Systems Reviewed And Are Negative: Yes Physical Exam Triage Information Reviewed: Yes Vital Signs On Initial Exam: Initial Vitals Temp Pulse Resp BP Pulse Ox 97.8 F 98 20 109/95 97 07/20/16 18:41 07/20/16 18:41 07/20/16 18:41 07/20/16 18:41 07/20/16 18:41 afebrile Vital Signs Reviewed: Yes Appearance: Positive: Well-Appearing, Pain Distress - mild tossing and turning in bed, trying to remove post op cast Skin: Positive: Warm, Skin Color Reflects Adequate Perfusion, Dry, Other - unable to view right lower extremity due to cast Head/Face: Positive: Normal Head/Face Inspection Eyes: Positive: Normal, Conjunctiva Clear ENT: Positive: Normal ENT inspection, Hearing grossly normal Neck: Positive: Supple, Nontender Respiratory/Lung Sounds: Positive: Clear to Auscultation. Negative: Rales, Rhonchi, Wheezes Cardiovascular: Positive: Normal, RRR, Pulses are Symmetrical in both Upper and Lower Extremities - 2+ unable to palpate right lower pedal due to cast placement Musculoskeletal: Positive: Normal, Limited @ - right lower extremity, foot, Pain @ - right lower ankle and distal, entire foot, Edema Right Neurological: Positive: Normal, Sensory/Motor Intact - her norm, Alert, Oriented to Person Place, Time, Reflexes Intact Psychiatric: Positive: Normal Procedures - Splinting Location: right lower extremity/foot Hand-Made Type: plaster Splint: posterior walking Pre-Proc Neuro Vasc Exam: normal Post-Proc Neuro Vasc Exam: normal, unchanged from pre-exam Diagnostics - Vital Signs Vital Signs Temp Pulse Resp BP Pulse Ox 07/20/16 18:45 97.8 F 96 20 109/95 97 07/20/16 18:41 97.8 F 98 20 109/95 97 - Laboratory Lab Statement: Any lab studies that have been ordered have been reviewed, and results considered in the medical decision making process. Lower Extremity Course/Dx - Course Course Of Treatment: Given zofran for nausea. Spoke with Dr Garcia who also spoke with Dr Garcia at 9:54pm states no further imaging or work up needed. Remove cast and apply posterior walking splint with lots of padding. New splint was applied. Patient's pain reduced some. No concern of any post-op infection or compartment syndrome at this time. Appears to be experiencing post-op phantom limb and pain due to surgery. Continue pain medication at home. Aware of worsening signs and symptoms. Follow up with Dr Garcia Monday 07/24. - Diagnoses Differential Diagnosis/HQI/PQRI: Positive: Cellulitis, Compartment Syndrome, Infection, Osteomyelitis, Other - post-op complication, infection Provider Diagnoses: Lower extremity pain, right, Post-operative complication - Physician Notifications Discussed Care of Patient With: Dr Garcia Time Discussed With Above Provider: 21:45 Instructed by Provider To: Have Pt Call For Appt. - remove post-op cast and apply posterior walking splint, do not bear weight Discharge - Discharge Plan Condition: Stable Disposition: HOME Patient Education Materials: Leg Pain (ED) Referrals: Sebastien Garcia MD [Medical Doctor] - Aishwarya Solis MD [Primary Care Provider] - Additional Instructions: Follow up with Dr Garcia on Saturday07/24/16. Continue taking pain mediation. Rest and elevate leg. Do not get splint wet. If symptoms worsen or do not improve such as increasing pain or fever/chills please return.
[2016-07-20 22:47] VITALS: BP 163/92
[2016-07-20] MEDS ORDERED: oxyCODONE/Acetamin 5/325 MG* TAB PO ONE (23:00)
== END 2016-07-20 22:45 | disposition home or self-care (01) ==
LOC: ED 18:34
DX: M79.661 Pain in right lower leg (principal); G89.18 Other acute postprocedural pain
CPT/HCPCS: 99282; A9270-GY

== ENCOUNTER 2016-07-30 20:23 | Emergency (ER) | payer OTHER ==
[2016-07-30 20:31] VITALS: BP 146/77
--- NOTE | 2016-07-30 21:31 | UC ---
Lower Extremity/Ankle HPI - HPI Summary HPI Summary: The patient comes in today for: 1. Right leg pain and swelling: Onset: Swelling started today. The pain has been constant since the but it is worse today. Palliative/provocative: Nothing makes her symptoms better or worse. Quality: Ache Region: Right ankle pressure Severity: 7/10 at ankle but 5/10 back of the leg Time: Constant. Associated symptoms: Fevers: None Nausea and vomiting: Present. Dyspnea: None. Blood clotting problems: None. * - History of Current Complaint Chief Complaint: UCLowerExtremity Stated Complaint: LEG PAIN,SWELLING,VOMITING Time Seen by Provider: 07/30/16 21:25 Hx Obtained From: Patient Hx Last Menstrual Period: 07/06/16 - Allergies/Home Medications Allergies/Adverse Reactions: Allergies Allergy/AdvReac Type Severity Reaction Status Date / Time Heparin Allergy See Comment Verified 07/30/16 20:30 Ropinirole [From Requip] Allergy Hives Verified 07/30/16 20:30 Erythromycin AdvReac "DOESN'T Verified 07/30/16 20:30 WORK" Niacin AdvReac Hives Verified 07/30/16 20:30 plastic tape Allergy Blisters Uncoded 07/13/16 09:34 PMH/Surg Hx/FS Hx/Imm Hx Previously Healthy: No - Peripheral vascular disease, peripheral neuropathy. Endocrine History: Diabetes, Dyslipidemia Cardiovascular History: Cardiac Disease, Hypertension, Congestive Heart Failure Respiratory History: Asthma GI/ History: Gastroesophageal Reflux, Renal Disease - She is on peritoneal diaylsis. Other History Of: Anticoagulant Therapy - Aspirin. Negative For: HIV, Hepatitis B, Hepatitis C - Surgical History Surgical History: Yes Surgery Procedure, Year, and Place: LEFT EYE REMOVED 2011 - HAS PROSTHETIC EYE ( ORBITS DONE 06/[address] LIGIA COY TO SCAN IN MRI) ;. MELANOMA REMOVED FROM [facility] 2012 (PROCEDURE DONE 4X);. CARDIAC CATH 2013 - NO STENTS;. LEFT WRIST FISTULA PLACEMENT ([facility]) 2013;. HEMODIALYSIS CATH RIGHT CHEST WALL 2013;. PERITONEAL DIALYSIS CATH 03/2014;. CHEST WALL CATH REMOVAL 08/2015 [facility];. RIGHT GREAT TOE AMPUTATION, [facility] 05/2015;. PLACEMENT RIGHT JUGULAR TESIO HEMODIALYSIS CATHETER [facility] 10/22/2015;. REMOVAL OF JUGULAR CATH - OCT 2015. CARDIAC CATH - stentsx2 right leg - Family History Known Family History: Positive: Cardiac Disease - father ID at 42 y/o, Hypertension - Social History Occupation: Unemployed Alcohol Use: None Substance Use Type: None Substance Use Comment - Amount & Last Used: using chantix to quit smoking Smoking Status (MU): Current Every Day Smoker Type: Cigarettes Amount Used/How Often: 5 ciagrettes/day Length of Time of Smoking/Using Tobacco: 17 YEARS Have You Smoked in the Last Year: Yes Household Exposure Type: Cigarettes - Immunization History Most Recent Influenza Vaccination: Fall 2015 Most Recent Tetanus Shot: 2013 Most Recent Pneumonia Vaccination: per pt: sometime in 2013 Review of Systems Constitutional: Negative Skin: Negative Eyes: Negative ENT: Negative Respiratory: Negative, Cough Cardiovascular: Negative Gastrointestinal: Vomiting Genitourinary: Negative All Other Systems Reviewed And Are Negative: Yes Physical Exam Triage Information Reviewed: Yes Appearance: No Pain Distress, Obese Vital Signs: Initial Vital Signs Temp 98.3 F 07/30/16 20:29 Pulse 119 07/30/16 20:29 Resp 20 07/30/16 20:29 BP 146/77 07/30/16 20:29 Pulse Ox 93 07/30/16 20:29 Vital Signs Reviewed: Yes Eyes: Positive: Conjunctiva Clear. Negative: Discharge ENT: Negative: Pharyngeal erythema, Nasal congestion, Nasal drainage, TM bulging , TM dull, TM red, Tonsillar swelling, Tonsillar exudate Dental: Negative: Gross Decay/Caries @, Dental Fracture @ Neck: Positive: Supple, Nontender, No Lymphadenopathy. Negative: Nuchal Rigidity Respiratory: Positive: Chest non-tender, Lungs clear, No respiratory distress, No accessory muscle use. Negative: Crackles, Wheezing Cardiovascular: Positive: RRR, No Murmur Abdomen Description: Positive: Nontender, No Organomegaly, Soft. Negative: Distended, Guarding Musculoskeletal: Positive: Edema @, Other: - Right lower leg: from below the knee to the distal end of the foot, there is a cast. There is some overhand of the soft Neurological: Positive: Alert Psychological: Positive: Normal Response To Family, Age Appropriate Behavior, Consolable Skin: Positive: Other - The patient's case was cut off. The patient stated that her ankle and forefoot was swollen. There was some discomfort of the calf area. She stated that the case coming off helped the pain, but no ulcers were seen. Color appeared good with no marked erythema or discharge. The incision site was dry. Lower Extremity Course/Dx - Course Course Of Treatment: Dr. Cises was called about the patient who told me that it was OK to cut off the cast. She said to put on a splint, but the patient refused stating that the splint was more painful than the cast. She only agreed to a dressing and AROLDO wrapping. The patient was told to go to the ER to rule out DVT, but she refused. She was told that I want to put on the splint, but she refused. - Differential Dx/Diagnosis Provider Diagnoses: Right lower leg pain (rule out DVT) Discharge - Discharge Plan Condition: Stable Disposition: AGAINST MEDICAL ADVICE Additional Instructions: If you are not going to the ER now, please at least reconsider if you get worse. If you don't go to the ER later tonight, please call DR. Garcia's office in the AM tomorrow for an appointment.
== END 2016-07-30 22:36 | disposition left against medical advice (07) ==
LOC: UCEAST 20:23
DX: M79.661 Pain in right lower leg (principal); F17.210 Nicotine dependence, cigarettes, uncomplicated
CPT/HCPCS: 99213; G0463

== ENCOUNTER 2016-08-01 20:08 | Observation (INO) | payer OTHER ==
[2016-08-01] MEDS ORDERED: HYDROmorphone* 1 MG/ML 1 ML SYR IV ONE (21:11)
[2016-08-01] MEDS ORDERED: Ondansetron INJ* 2 MG/ML VIAL IV ONE (21:11)
[2016-08-01] MEDS ORDERED: NS 0.9% 1000 ML* 2,000 ML IV ONE (21:11)
[2016-08-01] MEDS ORDERED: Azithromycin IV(*) 500 MG in NS 0.9% 250 ML* 250 ML IVPB ONE (21:16)
[2016-08-01] MEDS ORDERED: cefTRIAXone(*) 1 GM in NS 0.9% 50 ML* 50 ML IVPB ONE (21:16)
--- NOTE | 2016-08-01 21:37 | RAD ---
INDICATION: Cough and congestion. COMPARISON: Comparison is made with a prior chest x-ray study from May 17, 2016. TECHNIQUE: A portable view of the chest was obtained. FINDINGS: Cardiac and mediastinal contours appear to be within normal limits. The lungs are clear. No pleural effusion is seen. IMPRESSION: NO EVIDENCE FOR ACUTE DISEASE.
[2016-08-01 22:08] LABS: Hematocrit 37 % (35-47); Mean Corpuscular HGB Conc 32 g/dl (31-36); Mean Corpuscular Hemoglobin 29 pg (27-31); Mean Corpuscular Volume 89 fL (80-97); Mean Platelet Volume 9 um3 (7.4-10.4); Red Blood Count 4.18 10^6/ul (4.0-5.4); Red Cell Distribution Width 15 % (10.5-15); White Blood Count 11.6 10^3/ul (3.5-10.8)
[2016-08-01 22:24] LABS: Albumin 3.3 g/dL (3.2-5.2); BUN/Creatinine Ratio 5.6 (8-20); C Reactive Protein 27.88 mg/L (< 5.00); Calcium 9.5 mg/dL (8.6-10.3); EGFR African American 13.6 (>60); EGFR Non-African American 10.6 (>60); Globulin 3.4 g/dL (2-4); Magnesium 1.4 mg/dL (1.9-2.7); Potassium 3.6 mmol/L (3.5-5.0); Total Bilirubin 0.3 mg/dL (0.2-1.0); Total Protein 6.7 g/dL (6.4-8.9)
[2016-08-01 22:26] LABS: Troponin I 0.03 ng/mL (<0.04)
[2016-08-01 23:01] LABS: TSH (Thyroid Stimulating Horm) 0.68 mcIU/mL (0.34-5.60)
[2016-08-01] MEDS ORDERED: Albuterol/Ipratropium NEB.SOL* Albuterol 2.5 MG/Ipratropium 0.5 MG 3 ML INH ONE (23:07)
[2016-08-02] MEDS ORDERED: Metoclopramide TAB* 10 MG PO PRN (00:50)
[2016-08-02] MEDS ORDERED: Albuterol HFA INHALER* 8 gm MDI INH PRN (00:50)
[2016-08-02] MEDS ORDERED: Dextrose 50% Syringe 50 ML* 25 GM/50 ML SYRINGE IV PUSH PRN (00:54)
[2016-08-02] MEDS ORDERED: NS 0.9% 1000 ML* 1,000 ML IV SCH ×2 (01:00→01:09)
[2016-08-02] MEDS: Ondansetron INJ* 2 MG/ML VIAL IV PRN ×3 (02:28→12:06)
[2016-08-02] MEDS: HYDROmorphone* 1 MG/ML 1 ML SYR IV SLOW PU PRN ×3 (02:29→12:06)
[2016-08-02 03:10] LABS: Budding Yeast Present (Absent); Urine Bacteria 1+ (Absent); Urine Bilirubin Negative (Negative); Urine Glucose 3+(>=500 mg/dL) (Negative); Urine Nitrite Negative (Negative)
--- NOTE | 2016-08-02 03:19 | HP ---
CC: Dr. Solis * HISTORY AND PHYSICAL: DATE OF ADMISSION: 08/02/16 PRIMARY CARE PHYSICIAN: Aishwarya Solis MD CHIEF COMPLAINT: Intractable nausea and vomiting. HISTORY OF PRESENT ILLNESS: The patient is a 36-year-old woman who says for the last couple of days she started having nausea. It came out of nowhere. She started vomiting as well. She could not keep anything down. She then decided to hold her pain meds recently because we thought it might be related to that, but it did not get any better. She notes that a couple of weeks ago, she just had part of right foot amputated and was placed on 2 antibiotics and is almost finished with them. Yesterday she had her foot checked and some sutures removed and there was no evidence of infection at that time. She has had abdominal pain, but she says this is related to the nausea and vomiting. The abdominal pain is diffuse and is a 6/10 in severity. She has had no diarrhea. She had chills, but no fever. PAST MEDICAL HISTORY: Significant for end-stage renal disease requiring peritoneal dialysis, melanoma, diabetes, neuropathy, coronary artery disease, hypertension, hyperlipidemia, peripheral vascular disease, asthma, GERD, depression, and anxiety. PAST SURGICAL HISTORY: Significant for heart catheterization, peritoneal dialysis catheter placement, skin excisions, right great toe amputation, right partial foot amputation, and left eye prosthesis. CURRENT MEDICATIONS: Are as follows: 1. Levaquin 500 mg every other day. 2. mg every 6 hours as needed. 3. Gabapentin 300 mg 3 times a day. 4. Bisoprolol 10 mg in the evening. 5. Lipitor 80 mg in the evening. 6. Aspirin 81 mg daily. 7. Eliquis 5 mg twice daily. 8. Albuterol inhaler 2 puffs every 6 hours as needed. 9. Omeprazole 20 mg in the evening. 10. Metoclopramide 10 mg every 6 hours as needed. 11. Losartan 100 mg in the evening. 12. Levaquin 500 mg every 48 hours. 13. Imdur 60 mg in the evening. 14. Lantus insulin 80 units subcu twice daily. 15. Aspartate insulin as directed. 16. Metronidazole 500 mg 3 times a day. 17. Amlodipine 10 mg in the evening. ALLERGIES: Allergies to medications include TAPE, CODEINE, REQUIP, ERYTHROMYCIN , and NIACIN. FAMILY HISTORY: Mother and father both diabetic. SOCIAL HISTORY: One pack a day smoker for 20 years. No alcohol. She has a fiance, who is also her surrogate decision maker. REVIEW OF SYSTEMS: A 14-point review of systems was completed with the patient. All pertinent positives and negatives are in the history of present illness, otherwise it is negative. PHYSICAL EXAMINATION GENERAL: A pleasant woman lying in bed, in no acute distress. VITAL SIGNS: Temperature 98.1 degrees, heart rate 107 beats per minute, respiratory rate 16 breaths per minute, pulse ox 92%, and blood pressure 168/92. HEENT: Normocephalic and atraumatic. Pupils are equal, round and reactive to light. Dry mucous membranes. NECK: Supple. No JVD, bruits, palpable thyroid, or lymphadenopathy. CHEST: Clear to auscultation and percussion. CARDIOVASCULAR: S1, S2 appreciated. ABDOMEN: Positive bowel sounds in all 4 quadrants. Soft. EXTREMITIES: No cyanosis, clubbing, or edema; +2 peripheral pulses bilaterally. She has got a dressing on her right foot that looks clean. NEUROLOGIC: Alert and oriented x3. Moves all extremities. SKIN: No distinct rashes or abnormalities. DIAGNOSTIC STUDIES/LAB DATA: White count 11.6, hemoglobin 12.0, hematocrit 37 , and platelets 340. Sodium 129, potassium 3.6, chloride 91, CO2 of 26, BUN 26 , creatinine 4.6, and glucose is 566. Lactic acid is 2.6. INR is 1.11. Chest x-ray, no evidence for acute disease. EKG shows sinus tachycardia 106 beats per minute, normal axis, LVH, and no acute ST- T wave changes. ASSESSMENT AND PLAN: 1. Intractable nausea and vomiting: I will carefully rehydrate the patient with 75 cc of normal saline an hour, especially she is on peritoneal dialysis. I will give her Zofran p.r.n. for nausea. I will give her Dilaudid for her pain. I am not quite clear why she has nausea and vomiting, but I suspect it could be from her antibiotics. I held them for now, she has almost finished with her treatment and the wound appears clean, dry, and intact. 2. Diabetes mellitus: Continue Lantus, placed on fingersticks with sliding scale insulin. 3. Deep vein thrombosis: Continue Eliquis. 4. Hypertension. I will hold her losartan with her acute kidney injury and rehydrating her as above. Check basic metabolic profile in the morning. 5. Gastroesophageal reflux disease: Continue PPI. 6. Hyperlipidemia: Stable. Continue Lipitor. 7. FEN: Consistent carb diet. 8. DVT prophylaxis: She is on Eliquis. 9. Code status: The patient is a full code. TIME SPENT: Over 80 minutes was spent on this H and P; more than 45 minutes of which was spent in direct [id number] contact with the patient, evaluation, physical exam, counseling, and coordination of care. [id number]/[facility] #: [id number] MTDD
--- NOTE | 2016-08-02 05:21 | ED ---
Reinier Palacio [place], scribed for Wilfrid Beal MD on 08/01/16 at 2124 . Complex/Multi-Sys Presentation - HPI Summary HPI Summary: Patient is a 36 y/o F who presents to the ED with nausea and vomiting for the last few days. Pt has a hx of DM and states that her blood sugar level has been elevated for the last 2 days (above what her meter can read). She c/o CP, abd pain, chest congestion, cough, and shaking, but denies diarrhea or dysuria. PMHx of asthma. - History Of Current Complaint Chief Complaint: EDNauseaVomitDiarrh Time Seen by Provider: 08/01/16 21:01 Hx Obtained From: Patient Onset/Duration: Gradual Onset, Lasting Days, Still Present Timing: Constant Severity Currently: Moderate Severity Initially: Moderate Location: Pain At: - Abd, chest, and foot. Aggravating Factor(s): Nothing. Alleviating Factor(s): Nothing. Associated Signs And Symptoms: Positive: Nausea, Vomiting, Abdominal Pain. Negative: Diarrhea, Dysuria - Allergies/Home Medications Allergies/Adverse Reactions: Allergies Allergy/AdvReac Type Severity Reaction Status Date / Time Heparin Allergy See Comment Verified 07/30/16 20:30 Ropinirole [From Requip] Allergy Hives Verified 07/30/16 20:30 Erythromycin AdvReac "DOESN'T Verified 07/30/16 20:30 WORK" Niacin AdvReac Hives Verified 07/30/16 20:30 plastic tape Allergy Blisters Uncoded 07/13/16 09:34 PMH/Surg Hx/FS Hx/Imm Hx Endocrine/Hematology History: Reports: Hx Anticoagulant Therapy - Aspirin., Hx Blood Transfusions, Hx Diabetes - insulin control, Hx Thyroid Disease - nodule biopsied, normal, Hx Anemia - hx of - reports had tranfusion in 2013 after mi Cardiovascular History: Reports: Hx Angina, Hx Cardiac Arrest - in 2013 with CPR, Hx Coronary Artery Disease, Hx Hypercholesterolemia, Hx Hypertension - on med, Hx Myocardial Infarction, Other Cardiovascular Problems/Disorders - hyperlipidemia Denies: Hx Congestive Heart Failure, Hx Deep Vein Thrombosis, Hx Pacemaker/ ICD, Hx Valvular Heart Disease Respiratory History: Reports: Hx Asthma - inhaler, Hx Chronic Obstructive Pulmonary Disease (COPD) - smoker, Hx Sleep Apnea - pt reports thinks, but no official testing done yet, Other Respiratory Problems/Disorders - acute respipatory failure with hypoxia - jan 2016 Denies: Hx Lung Cancer, Hx Pneumonia, Hx Pulmonary Embolism GI History: Reports: Hx Gastroesophageal Reflux Disease - on med, Other GI Disorders - GASTROPARESIS - TAKING OMEPRAZOLE Denies: Hx Gall Bladder Disease, Hx Gastrointestinal Bleed, Hx Ulcer, Hx Urosepsis History: Reports: Hx Chronic Renal Failure, Hx Dialysis - PERITONEAL BUT DOES HAVE FISTULA ON LEFT ARM, Hx Kidney Stones - in past, Hx Renal Disease - ESRD on home peritoneal dialysis , Other Problems/Disorders - ESRD- URINATES A SMALL AMOUNT Musculoskeletal History: Reports: Hx Arthritis - back, hips, Hx Back Problems - Sciatica and Herniated L3 disk Sensory History: Reports: Hx Eye Prosthesis - left, Hx Legally Blind, Hx Vision Problem Denies: Hx Contacts or Glasses, Hx Hearing Aid Opthamlomology History: Reports: Hx Eye Prosthesis - left, Hx Legally Blind, Hx Vision Problem Denies: Hx Contacts or Glasses Neurological History: Reports: Other Neuro Impairments/Disorders - neuropathy Denies: Hx Transient Ischemic Attacks (TIA) Psychiatric History: Reports: Hx Anxiety - on med, Hx Depression - on med, Hx Bipolar Disorder Denies: Hx Panic Disorder, Hx Schizophrenia - Cancer History Cancer Type, 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 MELANOMA REMOVED FROM [facility] 2012 (PROCEDURE DONE 4X);. CARDIAC CATH 2013 - NO STENTS;. LEFT WRIST FISTULA PLACEMENT ([facility]) 2013;. HEMODIALYSIS CATH RIGHT CHEST WALL 2013;. PERITONEAL DIALYSIS CATH 03/2014;. [place] [facility] [place] [facility] [place]. [place]ACEMENT RIGHT JUGULAR TESIO HEMODIALYSIS CATHE[place] [facility] [place];. REMOVAL OF JUGULAR CATH - OCT 2015. CARDIAC CATH - stentsx2 right leg Hx Anesthesia Reactions: No - Immunization History Date of Tetanus Vaccine: UTD Date of Influenza Vaccine: 10/10/15 Infectious Disease History: No Infectious Disease History: Reports: Hx of Known/Suspected MRSA - MRSA R 1st toe Denies: Hx Clostridium Difficile, Hx Hepatitis, Hx Human Immunodeficiency Virus (HIV), Hx Shingles, Hx Tuberculosis, History Other Infectious Disease, Traveled Outside the [place] in Last 30 Days - Family History Known Family History: Positive: Cardiac Disease - father [place] at 42 y/o, Hypertension - Social History Alcohol Use: None Hx Substance Use: No Substance Use Type: Reports: None Substance Use Comment - Amount & Last Used: using chantix to quit smoking Hx Tobacco Use: Yes Smoking Status (MU): Current Every Day Smoker Type: Cigarettes Amount Used/How Often: 5 ciagrettes/day Length of Time of Smoking/Using Tobacco: 17 YEARS Have You Smoked in the Last Year: Yes Review of Systems Positive: Other - Shaking. Positive: Chest Pain, Other - Elevated blood sugar. Positive: Cough, Other - Chest congestion. Positive: Abdominal Pain, Vomiting, Nausea. Negative: Diarrhea Negative: dysuria Positive: Other - Foot pain, right - s/p partial amputation. All Other Systems Reviewed And Are Negative: Yes Physical Exam Triage Information Reviewed: Yes Vital Signs On Initial Exam: Initial Vitals Temp Pulse Resp BP Pulse Ox 98.4 F 115 20 149/82 97 08/01/16 20:22 08/01/16 20:22 08/01/16 20:22 08/01/16 20:22 08/01/16 20:22 Vital Signs Reviewed: Yes Appearance: Positive: No Pain Distress, Ill-Appearing - Mild., Obese Skin: Positive: Warm, Skin Color Reflects Adequate Perfusion, Dry Head/Face: Positive: Normal Head/Face Inspection Eyes: Positive: EOMI, HILLARY ENT: Positive: Other - DMM. Neck: Positive: Supple, Nontender Respiratory/Lung Sounds: Positive: Breath Sounds Present, Rhonchi - Bilat., Wheezes - Bilat. Cardiovascular: Positive: RRR Abdomen Description: Positive: Nontender, Soft Bowel Sounds: Positive: Present Musculoskeletal: Positive: Strength/ROM Intact, Other - Partial right foot amputation in dressing. Neurological: Positive: Normal, Sensory/Motor Intact, Alert, Oriented to Person Place, Time Psychiatric: Positive: Affect/Mood Appropriate - Proctor Coma Scale Coma Scale Total: 15 Diagnostics - Vital Signs Vital Signs Temp Pulse Resp BP Pulse Ox 08/01/16 20:51 98.1 F 107 16 168/92 92 08/01/16 20:22 98.4 F 115 20 149/82 97 - Laboratory Lab Results: Lab Results 08/01/16 08/01/16 08/01/16 Range/Units 22:00 22:00 22:00 WBC 11.6 H (3.5-10.8) 10^3/ul RBC 4.18 (4.0-5.4) 10^6/ul Hgb 12.0 (12.0-16.0) g/dl Hct 37 (35-47) % MCV 89 (80-97) fL MCH 29 (27-31) pg MCHC 32 (31-36) g/dl RDW 15 (10.5-15) % Plt Count 340 (150-450) 10^3/ul MPV 9 (7.4-10.4) um3 Neut % (Auto) 80.4 (38-83) % Lymph % (Auto) 12.4 L (25-47) % [place] % (Auto) 4.7 (1-9) % Eos % (Auto) 1.8 (0-6) % Baso % (Auto) 0.7 (0-2) % Absolute Neuts (auto) 9.4 H (1.5-7.7) 10^3/ul Absolute Lymphs (auto) 1.4 (1.0-4.8) 10^3/ul Absolute Monos (auto) 0.5 (0-0.8) 10^3/ul Absolute Eos (auto) 0.2 (0-0.6) 10^3/ul Absolute Basos (auto) 0.1 (0-0.2) 10^3/ul Absolute Nucleated RBC 0 10^3/ul Nucleated RBC % 0 INR (Anticoag Therapy) 1.11 (0.89-1.11) APTT 36.5 H (26.0-36.3) seconds Sodium 129 L (133-145) mmol/L Potassium 3.6 (3.5-5.0) mmol/L Chloride 91 L (101-111) mmol/L Carbon Dioxide 26 (22-32) mmol/L Anion Gap 12 H (2-11) mmol/L BUN 26 H (6-24) mg/dL Creatinine 4.66 H (0.51-0.95) mg/dL Est GFR ( Amer) 13.6 (>60) Est GFR (Non-Af Amer) 10.6 (>60) BUN/Creatinine Ratio 5.6 L (8-20) Glucose 566 H* (70-100) mg/dL Lactic Acid (0.5-2.0) mmol/L Calcium 9.5 (8.6-10.3) mg/dL Magnesium 1.4 L (1.9-2.7) mg/dL Total Bilirubin 0.30 (0.2-1.0) mg/dL AST 7 L (13-39) U/L ALT 9 (7-52) U/L Alkaline Phosphatase 90 (34-104) U/L Total Creatine Kinase 148 (10-223) U/L CK-MB (CK-2) 7.7 H (0.6-6.3) ng/mL Troponin I 0.03 (<0.04) ng/mL C-Reactive Protein 27.88 H (< 5.00) mg/L Total Protein 6.7 (6.4-8.9) g/dL Albumin 3.3 (3.2-5.2) g/dL Globulin 3.4 (2-4) g/dL Albumin/Globulin Ratio 1.0 (1-3) Lipase 38 (11.0-82.0) U/L TSH 0.68 (0.34-5.60) mcIU/mL Beta HCG, Quant 0.77 mIU/mL 08/01/16 Range/Units 22:00 WBC (3.5-10.8) 10^3/ul RBC (4.0-5.4) 10^6/ul Hgb (12.0-16.0) g/dl Hct (35-47) % MCV (80-97) fL MCH (27-31) pg MCHC (31-36) g/dl RDW (10.5-15) % Plt Count (150-450) 10^3/ul MPV (7.4-10.4) um3 Neut % (Auto) (38-83) % Lymph % (Auto) (25-47) % [place] % (Auto) (1-9) % Eos % (Auto) (0-6) % Baso % (Auto) (0-2) % Absolute Neuts (auto) (1.5-7.7) 10^3/ul Absolute Lymphs (auto) (1.0-4.8) 10^3/ul Absolute Monos (auto) (0-0.8) 10^3/ul Absolute Eos (auto) (0-0.6) 10^3/ul Absolute Basos (auto) (0-0.2) 10^3/ul Absolute Nucleated RBC 10^3/ul Nucleated RBC % INR (Anticoag Therapy) (0.89-1.11) APTT (26.0-36.3) seconds Sodium (133-145) mmol/L Potassium (3.5-5.0) mmol/L Chloride (101-111) mmol/L Carbon Dioxide (22-32) mmol/L Anion Gap (2-11) mmol/L BUN (6-24) mg/dL Creatinine (0.51-0.95) mg/dL Est GFR ( Amer) (>60) Est GFR (Non-Af Amer) (>60) BUN/Creatinine Ratio (8-20) Glucose (70-100) mg/dL Lactic Acid 2.6 H* (0.5-2.0) mmol/L Calcium (8.6-10.3) mg/dL Magnesium (1.9-2.7) mg/dL Total Bilirubin (0.2-1.0) mg/dL AST (13-39) U/L ALT (7-52) U/L Alkaline Phosphatase (34-104) U/L Total Creatine Kinase (10-223) U/L CK-MB (CK-2) (0.6-6.3) ng/mL Troponin I (<0.04) ng/mL C-Reactive Protein (< 5.00) mg/L Total Protein (6.4-8.9) g/dL Albumin (3.2-5.2) g/dL Globulin (2-4) g/dL Albumin/Globulin Ratio (1-3) Lipase (11.0-82.0) U/L TSH (0.34-5.60) mcIU/mL Beta HCG, Quant mIU/mL Result Diagrams: 08/01/16 22:00 08/01/16 22:00 Lab Statement: Any lab studies that have been ordered have been reviewed, and results considered in the medical decision making process. - Radiology CXR Radiology Interpretation Completed By: Radiologist - IMPRESSION: NO EVIDENCE FOR ACUTE DISEASE. - EKG 2150 EKG Rhythm: Sinus Tachycardia - @ 106bpm Ectopy: None EKG Interpretation: Early repolarization. No significant changes from EKG on 02/10. - Additional Comments Diagnostic Additional Comments: Glucose: 566 Lactic acid: 2.6 Complex Multi-Symp Course/Dx Course Of Treatment: NO CRITICAL CARE TIME. ADMIT HOSPITALIST STABLE. - Diagnoses Provider Diagnoses: Intractable nausea and vomiting - Physician Notifications Discussed Care Of Patient With: Garrick Sanford Time Discussed With Above Provider: 23:07 Instructed by Provider To: Admit As Inpatient Admit/Transition Orders Completed By ED Provider: Yes Discharge - Discharge Plan Condition: Stable Disposition: ADMITTED TO [facility] documentation as recorded by the Reinier sexton [place] accurately reflects the service I personally performed and the decisions made by me, Wilfrid Beal MD.
[2016-08-02 07:56] LABS: BUN/Creatinine Ratio 5.6 (8-20); Calcium 8.6 mg/dL (8.6-10.3); EGFR African American 15.7 (>60); EGFR Non-African American 12.2 (>60); Potassium 3.3 mmol/L (3.5-5.0)
[2016-08-02] MEDS: Insulin LISPRO* 1 UNITS UNIT SUBCUT SCH ×2 (08:17→12:14)
[2016-08-02] MEDS ORDERED: Insulin GLARGINE(*) 1 UNITS UNIT SUBCUT SCH (09:00)
[2016-08-02] MEDS ORDERED: Aspirin Low Dose CHEW TAB* 81 MG PO SCH (09:00)
[2016-08-02] MEDS ORDERED: Gabapentin CAP(*) 300 MG PO SCH (09:00)
[2016-08-02] MEDS ORDERED: Apixaban* 5 MG TAB PO SCH (09:00)
[2016-08-02] MEDS ORDERED: Levofloxacin TAB* 500 MG PO SCH (09:00)
[2016-08-02] MEDS ORDERED: metroNIDAZOLE TAB* 250 MG PO SCH (09:00)
[2016-08-02] MEDS ORDERED: Potassium Chlor TAB* 20 MEQ TAB.ER PO ONE (11:18)
[2016-08-02 12:59] VITALS: BP 167/99
[2016-08-02] MEDS ORDERED: Atorvastatin* 80 MG TAB PO SCH (18:00)
[2016-08-02] MEDS ORDERED: Isosorbide Mononitrate ER TAB* 60 MG PO SCH (18:00)
[2016-08-02] MEDS ORDERED: Omeprazole CAP* 20 MG PO SCH (18:00)
[2016-08-02] MEDS ORDERED: Losartan TAB* 25 MG PO SCH (18:00)
[2016-08-02] MEDS ORDERED: amLODIPine TAB* 5 MG PO SCH (18:00)
[2016-08-02] MEDS ORDERED: BISOPROLOL 5 MG PO SCH (18:00)
--- NOTE | 2016-08-03 04:09 | DS ---
CC: Aishwarya Solis MD; Dr. Garcia * DISCHARGE SUMMARY: DATE OF ADMISSION: 08/01/16 DATE OF DISCHARGE: 08/02/16 PRIMARY CARE PROVIDER: Aishwarya Solis MD ORTHOPEDIC SURGEON: Dr. Garcia. CONSULTING INFECTIOUS DISEASE SPECIALIST: Dr. Benavidez. DISCHARGING PROVIDER: GIOVANNI Rodriguez SUPERVISING PHYSICIAN: Amari Singh MD * (DICTATED BY GIOVANNI RODRIGUEZ) PRIMARY DISCHARGE DIAGNOSES: 1. Intractable nausea and vomiting likely secondary to Flagyl use. 2. Hyperglycemia in an insulin-dependent diabetic with a hyperosmolar and hypovolemic state, but without acidosis. SECONDARY DISCHARGE DIAGNOSES: 1. Poorly controlled insulin-dependent diabetes. 2. History of deep vein thrombosis, anticoagulated with Eliquis. 3. End-stage renal disease, on peritoneal dialysis. 4. Peripheral neuropathy. 5. Coronary artery disease. 6. Hypertension. 7. Hyperlipidemia. 8. Peripheral vascular disease. 9. Asthma. 10. Gastroesophageal reflux disease. 11. Depression and anxiety. DISCHARGE MEDICATIONS: 1. Dilaudid 2 mg p.o. q.6 hours as needed for pain. 2. Levaquin 500 mg p.o. q.48 hours for 1 additional week with instructions to continue through August 08 as previously prescribed. 3. Eliquis 5 mg p.o. twice daily. 4. Albuterol inhaler 2 puffs inhaled q.6 hours as needed for shortness of breath. 5. Aspirin 81 mg p.o. daily. 6. Atorvastatin 80 mg p.o. at bedtime. 7. Bisoprolol 10 mg p.o. at bedtime. 8. Gabapentin 300 mg p.o. t.i.d. 9. NovoLog on a sliding scale at meal time. 10. Lantus 80 units twice daily. 11. Isosorbide 60 mg p.o. daily. 12. Losartan 100 mg p.o. daily. 13. Reglan 10 mg p.o. q.6 hours before meals. 14. Omeprazole 20 mg p.o. daily. 15. Zofran 4 mg p.o. q.6 hours as needed. 16. Amlodipine 10 mg p.o. at bedtime. MEDICATION CHANGES: 1. Stop Flagyl. 2. Start p.r.n. Zofran. HOSPITAL IMAGIN. Chest x-ray shows no acute process. 2. EKG shows normal sinus rhythm. HOSPITAL COURSE: This is a 36-year-old female with poorly controlled insulin- dependent diabetes and multiple complications as a result of this including end - stage renal disease requiring peritoneal dialysis and recent transmetatarsal amputation by Dr. Garcia. The patient was discharged from the hospital just about 2 weeks ago on the 18 of July following her amputation with instructions to take 21 days of Flagyl and Levaquin. The patient was initially casted and seen by Dr. Garcia on Saturday of this week who took off the cast and thought that the incision sites looked well and applied a dry dressing at that time. The patient is now using a boot for pressure release. The patient has been intermittently nauseated since leaving the hospital, but symptoms have been manageable up until yesterday when she had intractable nausea and vomiting, which required her to be seen in the emergency department and was subsequently admitted for this. When she reached the emergency department, glucose was 566, sodium of 129, lactic acid of 2.6. CRP was moderately elevated at 27. She had a white blood cell count of 11,600. The patient states that she has been weary of taking her NovoLog as she has been feeling too nauseated to eat a significant amount and because of this she has been seeing frequent high glucose numbers. The patient was not acidotic; however, serum bicarb at the time of admission was 26. The patient was subsequently hydrated with normal saline and supportive measures given for her GI complaints. She had no tenderness to palpation on abdominal exam and no associated diarrhea. Her antibiotics were initially held. Discussed the antibiotic use with orthopaedic surgeon, Dr. Garcia as well as infectious disease specialist, Dr. Benavidez. The incision site was examined, which looks clean and free of infection. Dr. Benavidez agreed to discontinue the Flagyl and recommended continuing the Levaquin for an additional week as previously prescribed. The patient was agreeable with this plan. At the time of discharge, she was having some occasional abdominal cramping, but tolerating a full diet well and her nausea and vomiting had subsided. DISPOSITION AND FOLLOWUP PLAN: The patient has been discharged to home. RECOMMENDATIONS: Recommendations from Dr. Garcia are to apply a clean dry dressing on a daily basis. She is to keep her next follow up appointment with Dr. Garcia as previously scheduled. Her diabetes continues to be poorly controlled, recommend that continue to use her NovoLog at meal times and her full dose of Lantus as prescribed and follow up closely with her primary care provider. As mentioned above, Flagyl has been discontinued and Levaquin continued for an additional week. GIOVANNI RODRIGUEZ [id number]/[facility] #: [id number] VIRI
== END 2016-08-02 13:15 | disposition home or self-care (01) ==
LOC: ED 20:08 → INTOOBSV 08-02 00:54 → MED 08-02 00:54
PROVIDERS: ADMIT Internal Medicine; ATTEND Internal Medicine
DX: R11.2 Nausea with vomiting, unspecified (principal); E11.65 Type 2 diabetes mellitus with hyperglycemia; Z79.4 Long term (current) use of insulin; E87.1 Hypo-osmolality and hyponatremia; E86.1 Hypovolemia; I12.0 Hypertensive chronic kidney disease with stage 5 chronic kidney disease or end stage renal disease; N18.6 End stage renal disease; Z99.2 Dependence on renal dialysis; Z86.718 Personal history of other venous thrombosis and embolism; Z79.01 Long term (current) use of anticoagulants; G62.9 Polyneuropathy, unspecified; I25.119 Atherosclerotic heart disease of native coronary artery with unspecified angina pectoris; E78.5 Hyperlipidemia, unspecified; I73.9 Peripheral vascular disease, unspecified; K21.9 Gastro-esophageal reflux disease without esophagitis; J45.909 Unspecified asthma, uncomplicated; F32.9 Major depressive disorder, single episode, unspecified; F41.9 Anxiety disorder, unspecified; Z79.82 Long term (current) use of aspirin; Z79.899 Other long term (current) drug therapy; Z88.1 Allergy status to other antibiotic agents; Z88.8 Allergy status to other drugs, medicaments and biological substances; Z95.5 Presence of coronary angioplasty implant and graft; F17.210 Nicotine dependence, cigarettes, uncomplicated; R00.0 Tachycardia, unspecified
CPT/HCPCS: 36415; 71010; 80048; 80053; 81003; 81015; 82550; 82553; 83605; 83690; 83735; 84443; 84484; 84702; 85025; 85610; 85730; 86140; 87040; 87086; 93005; 96365; 96366; 96375; 96376; 99283; A9270-GY; G0378; J0456; J0696; J1170; J2405

== ENCOUNTER 2016-08-08 21:39 | Emergency (ER) | payer OTHER ==
[2016-08-08 21:43] VITALS: BP 126/84
== END 2016-08-09 00:17 | disposition left against medical advice (07) ==
LOC: ED 21:39
DX: T25.021A Burn of unspecified degree of right foot, initial encounter (principal); X08.8XXA Exposure to other specified smoke, fire and flames, initial encounter; Y93.9 Activity, unspecified; Y92.9 Unspecified place or not applicable; Y99.9 Unspecified external cause status; Z53.21 Procedure and treatment not carried out due to patient leaving prior to being seen by health care provider

== ENCOUNTER 2016-08-30 20:26 | Emergency (ER) | payer OTHER ==
[2016-08-30 20:33] VITALS: BP 162/106
[2016-08-30] MEDS ORDERED: Ketorolac INJ* 60 MG/2 ML VIAL IM ONE (21:59)
[2016-08-30 22:18] LABS: Hematocrit 44 % (35-47); Hemoglobin 14.4 g/dl (12.0-16.0); Mean Corpuscular HGB Conc 33 g/dl (31-36); Mean Corpuscular Hemoglobin 31 pg (27-31); Mean Corpuscular Volume 94 fL (80-97); Mean Platelet Volume 9 um3 (7.4-10.4); Red Cell Distribution Width 16 % (10.5-15); White Blood Count 10.3 10^3/ul (3.5-10.8)
[2016-08-30 22:43] LABS: Albumin 3.2 g/dL (3.2-5.2); BUN/Creatinine Ratio 6.5 (8-20); Calcium 8.9 mg/dL (8.6-10.3); EGFR African American 19.8 (>60); EGFR Non-African American 15.4 (>60); Globulin 3.2 g/dL (2-4); Total Bilirubin 0.3 mg/dL (0.2-1.0); Total Protein 6.4 g/dL (6.4-8.9)
[2016-08-30 22:45] LABS: Potassium 4.8 mmol/L (3.5-5.0)
[2016-08-30] MEDS ORDERED: NS 0.9% 1000 ML* 1,000 ML IV ONE (22:48)
[2016-08-30] MEDS ORDERED: Insulin REGULAR(*) 1 UNITS UNIT SUBCUT ONE (22:48)
--- NOTE | 2016-08-30 23:15 | ED ---
Omid Palacio Rebecca, scribed for Leonard Sanchez MD on 08/30/16 at 2200 . Lower Extremity - HPI Summary HPI Summary: Pt is a 36 y/o F who presents to ED c/o R foot pain. Pain began yesterday s/p Dr. Garcia cleaning wound from partial amputation on 07/16 and has been constant since onset. Pain is currently severe, ranked 9/10 and characterized as burning and stabbing. Sx unchanged by Tramadol and Percocet. PMHx DM. - History of Current Complaint Chief Complaint: EDGeneral Stated Complaint: RIGHT FOOT PAIN/ CHEST CONGESTION Time Seen by Provider: 08/30/16 21:54 Hx Obtained From: Patient Hx Last Menstrual Period: 07/06/16 Onset of Pain: Days - Yesterday Onset/Duration: Still Present Severity Currently: Severe Pain Intensity: 9 Pain Scale Used: 0-10 Numeric Timing: Constant Location: Is Discrete @ - R foot Character Of Pain: Sharp, Burning Associated Signs And Symptoms: Positive: Negative - Allergies/Home Medications Allergies/Adverse Reactions: Allergies Allergy/AdvReac Type Severity Reaction Status Date / Time Heparin Allergy See Comment Verified 08/30/16 20:28 Ropinirole [From Requip] Allergy Hives Verified 08/30/16 20:28 Erythromycin AdvReac "DOESN'T Verified 08/30/16 20:28 WORK" Niacin AdvReac Hives Verified 08/30/16 20:28 plastic tape Allergy Blisters Uncoded 08/30/16 20:28 PMH/Surg Hx/FS Hx/Imm Hx Endocrine/Hematology History: Reports: Hx Anticoagulant Therapy - Aspirin., Hx Blood Transfusions, Hx Diabetes - insulin control, Hx Thyroid Disease - nodule biopsied, normal, Hx Anemia - hx of - reports had tranfusion in 2014 after mi Cardiovascular History: Reports: Hx Angina, Hx Cardiac Arrest - in 2013 with CPR, Hx Cardiomegaly, Hx Coronary Artery Disease, Hx Hypercholesterolemia, Hx Hypertension - on med, Hx Myocardial Infarction, Other Cardiovascular Problems/Disorders - hyperlipidemia Denies: Hx Congestive Heart Failure, Hx Deep Vein Thrombosis, Hx Pacemaker/ ICD, Hx Valvular Heart Disease Respiratory History: Reports: Hx Asthma - inhaler, Hx Chronic Obstructive Pulmonary Disease (COPD) - smoker, Hx Sleep Apnea - pt reports md thinks, but no official testing done yet, Other Respiratory Problems/Disorders - acute respipatory failure with hypoxia - jan 2016 Denies: Hx Lung Cancer, Hx Pneumonia, Hx Pulmonary Embolism GI History: Reports: Hx Gastroesophageal Reflux Disease - on med, Other GI Disorders - GASTROPARESIS - TAKING OMEPRAZOLE Denies: Hx Gall Bladder Disease, Hx Gastrointestinal Bleed, Hx Ulcer, Hx Urosepsis History: Reports: Hx Acute Renal Failure, Hx Chronic Renal Failure, Hx Dialysis - PERITONEAL BUT DOES HAVE FISTULA ON LEFT ARM, Hx Kidney Stones - in past, Hx Renal Disease - ESRD on home peritoneal dialysis , Other Problems/ Disorders - ESRD- URINATES A SMALL AMOUNT Musculoskeletal History: Reports: Hx Arthritis - back, hips, Hx Back Problems - Sciatica and Herniated L3 disk Sensory History: Reports: Hx Eye Prosthesis - left, Hx Legally Blind, Hx Vision Problem Denies: Hx Contacts or Glasses, Hx Hearing Aid Opthamlomology History: Reports: Hx Eye Prosthesis - left, Hx Legally Blind, Hx Vision Problem Denies: Hx Contacts or Glasses Neurological History: Reports: Other Neuro Impairments/Disorders - neuropathy Denies: Hx Transient Ischemic Attacks (TIA) Psychiatric History: Reports: Hx Anxiety - on med, Hx Depression - on med, Hx Bipolar Disorder Denies: Hx Panic Disorder, Hx Schizophrenia - Cancer History Cancer Type, 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 MELANOMA REMOVED FROM [facility] 2012 (PROCEDURE DONE 4X);. CARDIAC CATH 2013 - NO STENTS;. LEFT WRIST FISTULA PLACEMENT ([facility]) 2013;. HEMODIALYSIS CATH RIGHT CHEST WALL 2013;. PERITONEAL DIALYSIS CATH 03/2014;. [place] [facility] [place] [facility] [place] PLACEMENT RIGHT JUGULAR TESIO HEMODIALYSIS [place] [facility] [place];. REMOVAL OF JUGULAR CATH - OCT 2015. CARDIAC CATH - stentsx2 right leg Hx Anesthesia Reactions: No - Immunization History Date of Tetanus Vaccine: UTD Date of Influenza Vaccine: 10/10/15 Infectious Disease History: No Infectious Disease History: Reports: Hx of Known/Suspected MRSA - MRSA R 1st toe Denies: Hx Clostridium Difficile, Hx Hepatitis, Hx Human Immunodeficiency Virus (HIV), Hx Shingles, Hx Tuberculosis, History Other Infectious Disease, Traveled Outside the [place] in Last 30 Days - Family History Known Family History: Positive: Cardiac Disease - father [place] at 42 y/o, Hypertension - Social History Alcohol Use: None Hx Substance Use: No Substance Use Type: Reports: None Substance Use Comment - Amount & Last Used: using chantix to quit smoking Hx Tobacco Use: Yes Smoking Status (MU): Current Every Day Smoker Type: Cigarettes Amount Used/How Often: 5 ciagrettes/day Length of Time of Smoking/Using Tobacco: 17 YEARS Have You Smoked in the Last Year: Yes Review of Systems Negative: Fever Positive: Arthralgia - R foot pain All Other Systems Reviewed And Are Negative: Yes Physical Exam Triage Information Reviewed: Yes Vital Signs On Initial Exam: Initial Vitals Temp Pulse Resp BP Pulse Ox 97.5 F 104 20 162/106 98 08/30/16 20:28 08/30/16 20:28 08/30/16 20:28 08/30/16 20:28 08/30/16 20:28 Vital Signs Reviewed: Yes Appearance: Positive: Well-Appearing, Pain Distress - mild discomfort Skin: Positive: Warm Head/Face: Positive: Normal Head/Face Inspection Eyes: Positive: HILLARY ENT: Positive: Hearing grossly normal Neck: Positive: Supple Respiratory/Lung Sounds: Positive: Breath Sounds Present Cardiovascular: Positive: RRR Psychiatric: Positive: Anxious - Ronald Coma Scale Coma Scale Total: 15 Diagnostics - Vital Signs Vital Signs Temp Pulse Resp BP Pulse Ox 08/30/16 20:28 97.5 F 104 20 162/106 98 - Laboratory Lab Results: Lab Results 08/30/16 08/30/16 Range/Units 22:12 22:12 WBC 10.3 (3.5-10.8) 10^3/ul RBC 4.70 (4.0-5.4) 10^6/ul Hgb 14.4 (12.0-16.0) g/dl Hct 44 (35-47) % MCV 94 (80-97) fL MCH 31 (27-31) pg MCHC 33 (31-36) g/dl RDW 16 H (10.5-15) % Plt Count 282 (150-450) 10^3/ul MPV 9 (7.4-10.4) um3 Neut % (Auto) 79.2 (38-83) % Lymph % (Auto) 13.3 L (25-47) % Swain % (Auto) 4.6 (1-9) % Eos % (Auto) 2.2 (0-6) % Baso % (Auto) 0.7 (0-2) % Absolute Neuts (auto) 8.2 H (1.5-7.7) 10^3/ul Absolute Lymphs (auto) 1.4 (1.0-4.8) 10^3/ul Absolute Monos (auto) 0.5 (0-0.8) 10^3/ul Absolute Eos (auto) 0.2 (0-0.6) 10^3/ul Absolute Basos (auto) 0.1 (0-0.2) 10^3/ul Absolute Nucleated RBC 0.01 10^3/ul Nucleated RBC % 0.1 Sodium 126 L (133-145) mmol/L Potassium 4.8 (3.5-5.0) mmol/L Chloride 92 L (101-111) mmol/L Carbon Dioxide 26 (22-32) mmol/L Anion Gap 8 (2-11) mmol/L BUN 22 (6-24) mg/dL Creatinine 3.36 H (0.51-0.95) mg/dL Est GFR ( Amer) 19.8 (>60) Est GFR (Non-Af Amer) 15.4 (>60) BUN/Creatinine Ratio 6.5 L (8-20) Glucose 631 H* (70-100) mg/dL Calcium 8.9 (8.6-10.3) mg/dL Total Bilirubin 0.30 (0.2-1.0) mg/dL AST 13 (13-39) U/L ALT 7 (7-52) U/L Alkaline Phosphatase 192 H (34-104) U/L Total Protein 6.4 (6.4-8.9) g/dL Albumin 3.2 (3.2-5.2) g/dL Globulin 3.2 (2-4) g/dL Albumin/Globulin Ratio 1.0 (1-3) Result Diagrams: 08/30/16 22:12 08/30/16 22:12 Lab Statement: Any lab studies that have been ordered have been reviewed, and results considered in the medical decision making process. - Radiology R Foot XR Xray Interpretation: No Acute Changes - Status post amputation. No obvious acute abnormalities. Radiology Interpretation Completed By: ED Physician Re-Evaluation - Re-Evaluation First Eval Comment: gown found on bed, pt presumerd to have walked out of ed prior to completion of evaluation Lower Extremity Course/Dx - Course Assessment/Plan: Pt is a 36 y/o F who presents to ED c/o severe burning, stabbing R foot pain since yesterday. Pain began yesterday s/p Dr. Garcia cleaning wound from partial amputation on 07/16. Sx unchanged by Tramadol and Percocet. R foot XR reveals s/p amputation with no acute abnormalities. Pt left AMA. - Diagnoses Provider Diagnoses: Diabetes Discharge - Discharge Plan Condition: Fair Disposition: AGAINST MEDICAL ADVICE Referrals: Aishwarya Solis MD [Primary Care Provider] - The documentation as recorded by the Omid sexton Rebecca accurately reflects the service I personally performed and the decisions made by me, Leonard Sanchez MD.
--- NOTE | 2016-08-31 07:05 | RAD ---
INDICATION: Right foot pain. COMPARISON: Comparison is made with a prior x-ray study of the right foot from July 19, 2016. TECHNIQUE: 2 views of the right foot were obtained. FINDINGS: The patient is status post transmetatarsal amputation at the level of the mid metatarsals. There is diffuse soft tissue swelling which is most prominent adjacent to the amputation site. There is a soft tissue defect also in that region. No erosive change or periosteal reaction is seen. Note is made of vascular calcifications. IMPRESSION: POSTSURGICAL CHANGES, SOFT TISSUE ULCER AND SWELLING, NO SPECIFIC EVIDENCE FOR OSTEOMYELITIS.
== END 2016-08-30 23:13 | disposition left against medical advice (07) ==
LOC: ED 20:26
DX: E11.8 Type 2 diabetes mellitus with unspecified complications (principal); F17.210 Nicotine dependence, cigarettes, uncomplicated
CPT/HCPCS: 36415; 80053; 85025; 96372; 99282; J1885

== ENCOUNTER → 2016-09-03 22:42 | Emergency (ER) | payer OTHER ==
[2016-09-03 22:59] VITALS: BP 139/75
== END | disposition left against medical advice (07) ==
LOC: ED 22:42
DX: M79.671 Pain in right foot (principal); Z53.21 Procedure and treatment not carried out due to patient leaving prior to being seen by health care provider

== ENCOUNTER 2016-09-05 03:07 | Emergency (ER) | payer OTHER ==
[2016-09-05 03:21] VITALS: BP 140/80
[2016-09-05] MEDS ORDERED: Ketorolac INJ* 60 MG/2 ML VIAL IM ONE (03:32)
[2016-09-05 03:53] LABS: Hematocrit 44 % (35-47); Mean Corpuscular HGB Conc 32 g/dl (31-36); Mean Corpuscular Hemoglobin 31 pg (27-31); Mean Corpuscular Volume 96 fL (80-97); Mean Platelet Volume 9 um3 (7.4-10.4); Red Blood Count 4.59 10^6/ul (4.0-5.4); Red Cell Distribution Width 17 % (10.5-15); White Blood Count 10.1 10^3/ul (3.5-10.8)
[2016-09-05 04:06] LABS: BUN/Creatinine Ratio 7.6 (8-20); Calcium 8.6 mg/dL (8.6-10.3); EGFR African American 18.5 (>60); EGFR Non-African American 14.4 (>60)
--- NOTE | 2016-09-05 04:12 | ED ---
amish Palacio Timothy, scribed for Leonard Sanchez MD on 09/05/16 at 0328 . Lower Extremity - HPI Summary HPI Summary: Margaux Wright is a 36 yo female presenting to [facility] with 10/10 RLE foot pain for the past 2 days. She has an appointment with ortho later today which she plans on attending, but is presenting now due to the pain. Her MHx includes left eye prosthesis, CAD, [place], CABG, HLD, HTN, neuropathy, COPD, asthma, cough, sleep apnea, acute respiratoryy failure, anorexia nervosa, GERD, obesity, renal disease and failure, kidney stones, ESRD, arthritis, DM, anemia, bipolar disorder, depression, anxiety, tobacco use. - History of Current Complaint Stated Complaint: RT FOOT PAIN Time Seen by Provider: 09/05/16 03:28 Hx Obtained From: Patient Hx Last Menstrual Period: 07/06/16 Mechanism Of Injury: Unknown Onset/Duration: Hours Severity Initially: Moderate Severity Currently: Moderate Pain Intensity: 10 Pain Scale Used: 0-10 Numeric Timing: Constant Location: Is Discrete @ - RLE foot - Allergies/Home Medications Allergies/Adverse Reactions: Allergies Allergy/AdvReac Type Severity Reaction Status Date / Time Heparin Allergy See Comment Verified 09/03/16 22:56 Ropinirole [From Requip] Allergy Hives Verified 09/03/16 22:56 Erythromycin AdvReac "DOESN'T Verified 09/03/16 22:56 WORK" Niacin AdvReac Hives Verified 09/03/16 22:56 plastic tape Allergy Blisters Uncoded 09/03/16 22:56 PMH/Surg Hx/FS Hx/Imm Hx Endocrine/Hematology History: Reports: Hx Anticoagulant Therapy - Aspirin., Hx Blood Transfusions, Hx Diabetes - insulin control, Hx Thyroid Disease - nodule biopsied, normal, Hx Anemia - hx of - reports had tranfusion in 2013 after mi Cardiovascular History: Reports: Hx Angina, Hx Cardiac Arrest - in 2013 with CPR, Hx Cardiomegaly, Hx Coronary Artery Disease, Hx Hypercholesterolemia, Hx Hypertension - on med, Hx Myocardial Infarction, Other Cardiovascular Problems/Disorders - hyperlipidemia Denies: Hx Congestive Heart Failure, Hx Deep Vein Thrombosis, Hx Pacemaker/ ICD, Hx Valvular Heart Disease Respiratory History: Reports: Hx Asthma - inhaler, Hx Chronic Obstructive Pulmonary Disease (COPD) - smoker, Hx Sleep Apnea - pt reports md thinks, but no official testing done yet, Other Respiratory Problems/Disorders - acute respipatory failure with hypoxia - jan 2016 Denies: Hx Lung Cancer, Hx Pneumonia, Hx Pulmonary Embolism GI History: Reports: Hx Gastroesophageal Reflux Disease - on med, Other GI Disorders - GASTROPARESIS - TAKING OMEPRAZOLE Denies: Hx Gall Bladder Disease, Hx Gastrointestinal Bleed, Hx Ulcer, Hx Urosepsis History: Reports: Hx Acute Renal Failure, Hx Chronic Renal Failure, Hx Dialysis - PERITONEAL BUT DOES HAVE FISTULA ON LEFT ARM, Hx Kidney Stones - in past, Hx Renal Disease - ESRD on home peritoneal dialysis , Other Problems/ Disorders - ESRD- URINATES A SMALL AMOUNT Musculoskeletal History: Reports: Hx Arthritis - back, hips, Hx Back Problems - Sciatica and Herniated L3 disk Sensory History: Reports: Hx Eye Prosthesis - left, Hx Legally Blind, Hx Vision Problem Denies: Hx Contacts or Glasses, Hx Hearing Aid Opthamlomology History: Reports: Hx Eye Prosthesis - left, Hx Legally Blind, Hx Vision Problem Denies: Hx Contacts or Glasses Neurological History: Reports: Other Neuro Impairments/Disorders - neuropathy Denies: Hx Transient Ischemic Attacks (TIA) Psychiatric History: Reports: Hx Anxiety - on med, Hx Depression - on med, Hx Bipolar Disorder Denies: Hx Panic Disorder, Hx Schizophrenia - Cancer History Cancer Type, 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 MELANOMA REMOVED FROM [facility] 2012 (PROCEDURE DONE 4X);. CARDIAC CATH 2013 - NO STENTS;. LEFT WRIST FISTULA PLACEMENT ([facility]) 2013;. HEMODIALYSIS CATH RIGHT CHEST WALL 2013;. PERITONEAL DIALYSIS CATH 03/2014;. [place] [facility] [place]. [place] [facility] [place]. [place]ACEMENT RIGHT JUGULAR [place]ESIO H[place]ODIALYSIS [place] [facility] [place];. REMOVAL OF JUGULAR CATH - OCT 2015. CARDIAC CATH - stentsx2 right leg Hx Anesthesia Reactions: No - Immunization History Date of Tetanus Vaccine: UTD Date of Influenza Vaccine: 10/10/15 Infectious Disease History: Reports: Hx of Known/Suspected MRSA - MRSA R 1st toe Denies: Hx Clostridium Difficile, Hx Hepatitis, Hx Human Immunodeficiency Virus (HIV), Hx Shingles, Hx Tuberculosis, History Other Infectious Disease, Traveled Outside the [place] in Last 30 Days - Family History Known Family History: Positive: Cardiac Disease - father [place] at 42 y/o, Hypertension - Social History Alcohol Use: None Hx Substance Use: No Substance Use Type: Reports: None Substance Use Comment - Amount & Last Used: using chantix to quit smoking Hx Tobacco Use: Yes Smoking Status (MU): Current Every Day Smoker Type: Cigarettes Amount Used/How Often: 5 ciagrettes/day Length of Time of Smoking/Using Tobacco: 17 YEARS Have You Smoked in the Last Year: Yes Review of Systems Constitutional: Negative Eyes: Negative ENT: Negative Cardiovascular: Negative Respiratory: Negative Gastrointestinal: Negative Genitourinary: Negative Musculoskeletal: Other - RLE foot pain Skin: Negative Neurological: Negative Psychological: Normal All Other Systems Reviewed And Are Negative: Yes Physical Exam Triage Information Reviewed: Yes Vital Signs On Initial Exam: Initial Vitals Temp Pulse Resp BP Pulse Ox 97.3 F 110 18 140/80 97 09/05/16 03:20 09/05/16 03:20 09/05/16 03:20 09/05/16 03:20 09/05/16 03:20 Vital Signs Reviewed: Yes Appearance: Positive: Well-Appearing, Pain Distress - mild discomfort Skin: Positive: Warm Head/Face: Positive: Normal Head/Face Inspection Eyes: Positive: HILLARY ENT: Positive: Hearing grossly normal Neck: Positive: Supple Respiratory/Lung Sounds: Positive: Breath Sounds Present Cardiovascular: Positive: RRR Abdomen Description: Positive: Nontender, Soft Bowel Sounds: Positive: Present Musculoskeletal: Positive: Other - s/p transmetatarsal amputation, no purulence noted Diagnostics - Vital Signs Vital Signs Temp Pulse Resp BP Pulse Ox 09/05/16 03:20 97.3 F 110 18 140/80 97 - Laboratory Lab Results: Lab Results 09/05/16 09/05/16 Range/Units 03:40 03:40 WBC 10.1 (3.5-10.8) 10^3/ul RBC 4.59 (4.0-5.4) 10^6/ul Hgb 14.0 (12.0-16.0) g/dl Hct 44 (35-47) % MCV 96 (80-97) fL MCH 31 (27-31) pg MCHC 32 (31-36) g/dl RDW 17 H (10.5-15) % Plt Count 274 (150-450) 10^3/ul MPV 9 (7.4-10.4) um3 Neut % (Auto) 84.0 H (38-83) % Lymph % (Auto) 8.5 L (25-47) % Edmunds % (Auto) 3.1 (1-9) % Eos % (Auto) 2.6 (0-6) % Baso % (Auto) 1.8 (0-2) % Absolute Neuts (auto) 8.5 H (1.5-7.7) 10^3/ul Absolute Lymphs (auto) 0.9 L (1.0-4.8) 10^3/ul Absolute Monos (auto) 0.3 (0-0.8) 10^3/ul Absolute Eos (auto) 0.3 (0-0.6) 10^3/ul Absolute Basos (auto) 0.2 (0-0.2) 10^3/ul Absolute Nucleated RBC 0.02 10^3/ul Nucleated RBC % 0.1 Sodium 128 L (133-145) mmol/L Potassium 4.0 (3.5-5.0) mmol/L Chloride 98 L (101-111) mmol/L Carbon Dioxide 23 (22-32) mmol/L Anion Gap 7 (2-11) mmol/L BUN 27 H (6-24) mg/dL Creatinine 3.56 H (0.51-0.95) mg/dL Est GFR ( Amer) 18.5 (>60) Est GFR (Non-Af Amer) 14.4 (>60) BUN/Creatinine Ratio 7.6 L (8-20) Glucose 612 H* (70-100) mg/dL Calcium 8.6 (8.6-10.3) mg/dL Result Diagrams: 09/05/16 03:40 09/05/16 03:40 Lab Statement: Any lab studies that have been ordered have been reviewed, and results considered in the medical decision making process. Re-Evaluation - Re-Evaluation First Eval Comment: pt not found in room, pt seen walking out of ed prior to completion of evaluation Lower Extremity Course/Dx - Course Assessment/Plan: Margaux Wright is a 36 yo female presenting to [facility] with 10/ 10 pain in her RLE for the past 2 days. Pt medication list reviewed this visit. In the ED course she received toradol for pain management. Pt declined offered toradol. Pt left [facility] without completion of evaluation, lab tests, or signing AMA paperwork. - Diagnoses Provider Diagnoses: Diabetes Discharge - Discharge Plan Condition: Stable Disposition: OTHER Discharge Disposition Comment: Pt left [facility] without signing AMA paperwork Referrals: Aishwarya Solis MD [Primary Care Provider] - The documentation as recorded by the amish sexton Timothy accurately reflects the service I personally performed and the decisions made by me, Leonard Sanchez MD.
== END 2016-09-05 04:00 ==
LOC: ED 03:07
DX: E11.9 Type 2 diabetes mellitus without complications (principal); Z79.01 Long term (current) use of anticoagulants; M79.671 Pain in right foot; F17.210 Nicotine dependence, cigarettes, uncomplicated
CPT/HCPCS: 36415; 80048; 85025; 96372; 99282; J1885

== ENCOUNTER 2016-09-05 22:30 | Emergency (ER) | payer OTHER ==
[2016-09-05 23:07] VITALS: BP 150/85
[2016-09-05] MEDS ORDERED: traMADol TAB* 50 MG PO ONE (23:10)
--- NOTE | 2016-09-05 23:34 | ED ---
Lower Extremity - HPI Summary HPI Summary: Patient presents with request for pain medication. She is s/p surgery to her right foot for osteomyelitis, surgery by Dr. Garcia. This is one of many visits to the ED with requests for pain medication. She is requesting IV dilaudid and wants to be admitted for pain control. She is combative and upset on arrival during triage and stating she wants to "slit their throats" when talking about the providers. She was dispensed lyrica last week and dilauded 3 weeks ago. She has been encouraged many times to return to Dr. Ward office for further evaluation and/or pain control if needed. She stated last evening she had an appt today, and today stated she forgot her appt which is why she is seen in the ED. Family states she is not attempting to go see her doctor and instead will continue to come back to ED in attempt to receive pain control through IV. It was explained to patient she would not be staying in the ED as she seems comfortable and the foot is without erythema, swelling or other signs of complications from the surgery. There is gauze wrapped around the foot and scant amount of white discharge from the area. She states she will see Dr. Garcia tomorrow. Provider has given her 1 dose of Tramadol during this visit. She is upset upon discharge. Denies other complaints but it not cooperative on examination. - History of Current Complaint Chief Complaint: EDExtremityLower Stated Complaint: RIGHT FOOT PAIN Time Seen by Provider: 09/05/16 22:40 Hx Last Menstrual Period: 07/06/16 Pain Intensity: 9 - Risk Factors Gout Risk Factors: Age Over 40, Diabetes, Hypertension, Renal Disease, Hyperlipidemia, Obesity, Peripherial Vascular Disease DVT Risk Factors: Smoking, Recent Surgery Septic Arthritis Risk Factor: Negative - Allergies/Home Medications Allergies/Adverse Reactions: Allergies Allergy/AdvReac Type Severity Reaction Status Date / Time Heparin Allergy See Comment Verified 09/03/16 22:56 Ropinirole [From Requip] Allergy Hives Verified 09/03/16 22:56 Erythromycin AdvReac "DOESN'T Verified 09/03/16 22:56 WORK" Niacin AdvReac Hives Verified 09/03/16 22:56 plastic tape Allergy Blisters Uncoded 09/03/16 22:56 PMH/Surg Hx/FS Hx/Imm Hx Previously Healthy: No - see below Endocrine/Hematology History: Reports: Hx Anticoagulant Therapy - Aspirin., Hx Blood Transfusions, Hx Diabetes - insulin control, Hx Thyroid Disease - nodule biopsied, normal, Hx Anemia - hx of - reports had tranfusion in 2013 after mi Cardiovascular History: Reports: Hx Angina, Hx Cardiac Arrest - in 2013 with CPR, Hx Cardiomegaly, Hx Coronary Artery Disease, Hx Hypercholesterolemia, Hx Hypertension - on med, Hx Myocardial Infarction, Other Cardiovascular Problems/Disorders - hyperlipidemia Denies: Hx Congestive Heart Failure, Hx Deep Vein Thrombosis, Hx Pacemaker/ ICD, Hx Valvular Heart Disease Respiratory History: Reports: Hx Asthma - inhaler, Hx Chronic Obstructive Pulmonary Disease (COPD) - smoker, Hx Sleep Apnea - pt reports md thinks, but no official testing done yet, Other Respiratory Problems/Disorders - acute respipatory failure with hypoxia - jan 2016 Denies: Hx Lung Cancer, Hx Pneumonia, Hx Pulmonary Embolism GI History: Reports: Hx Gastroesophageal Reflux Disease - on med, Other GI Disorders - GASTROPARESIS - TAKING OMEPRAZOLE Denies: Hx Gall Bladder Disease, Hx Gastrointestinal Bleed, Hx Ulcer, Hx Urosepsis History: Reports: Hx Acute Renal Failure, Hx Chronic Renal Failure, Hx Dialysis - PERITONEAL BUT DOES HAVE FISTULA ON LEFT ARM, Hx Kidney Stones - in past, Hx Renal Disease - ESRD on home peritoneal dialysis , Other Problems/ Disorders - ESRD- URINATES A SMALL AMOUNT Musculoskeletal History: Reports: Hx Arthritis - back, hips, Hx Back Problems - Sciatica and Herniated L3 disk Sensory History: Reports: Hx Eye Prosthesis - left, Hx Legally Blind, Hx Vision Problem Denies: Hx Contacts or Glasses, Hx Hearing Aid Opthamlomology History: Reports: Hx Eye Prosthesis - left, Hx Legally Blind, Hx Vision Problem Denies: Hx Contacts or Glasses Neurological History: Reports: Other Neuro Impairments/Disorders - neuropathy Denies: Hx Transient Ischemic Attacks (TIA) Psychiatric History: Reports: Hx Anxiety - on med, Hx Depression - on med, Hx Bipolar Disorder Denies: Hx Panic Disorder, Hx Schizophrenia - Cancer History Cancer Type, 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 MELANOMA REMOVED FROM [facility] 2012 (PROCEDURE DONE 4X);. CARDIAC CATH 2014 - NO STENTS;. LEFT WRIST FISTULA PLACEMENT ([facility]) 2013;. HEMODIALYSIS CATH RIGHT CHEST WALL 2013;. PERITONEAL DIALYSIS CATH 03/2014;. CHEST WALL C[place] REMOV[place] 08/2015 [facility] [place]. RIGHT GREAT TOE AMPUTATION, [facility] [place];. PLACEMENT RIGHT JUGULAR TESIO HEMODIALYSIS CATHETER [facility] [place];. REMOVAL OF JUGULAR CATH - OCT 2015. CARDIAC CATH - stentsx2 right leg Hx Anesthesia Reactions: No - Immunization History Date of Tetanus Vaccine: UTD Date of Influenza Vaccine: 10/10/15 Hx Pertussis Vaccination: No Immunizations Up to Date: Unable to Obtain/Confirm Infectious Disease History: No Infectious Disease History: Reports: Hx of Known/Suspected MRSA - MRSA R 1st toe Denies: Hx Clostridium Difficile, Hx Hepatitis, Hx Human Immunodeficiency Virus (HIV), Hx Shingles, Hx Tuberculosis, History Other Infectious Disease, Traveled Outside the in Last 30 Days - Family History Known Family History: Positive: Cardiac Disease - father [place] at 42 y/o, Hypertension - Social History Occupation: Disabled Lives: With Family Alcohol Use: None Hx Substance Use: No Substance Use Type: Reports: None Substance Use Comment - Amount & Last Used: using chantix to quit smoking Hx Tobacco Use: Yes Smoking Status (MU): Current Every Day Smoker Type: Cigarettes Amount Used/How Often: 5 ciagrettes/day Length of Time of Smoking/Using Tobacco: 17 YEARS Have You Smoked in the Last Year: Yes Review of Systems Constitutional: Negative Positive: Fatigue Eyes: Negative Cardiovascular: Negative Positive: Shortness Of Breath Positive: no symptoms reported, see HPI Positive: Arthralgia, Myalgia Positive: Other Neurological: Negative Psychological: Normal All Other Systems Reviewed And Are Negative: Yes Physical Exam Triage Information Reviewed: Yes Vital Signs On Initial Exam: Initial Vitals Temp Pulse Resp BP Pulse Ox 98.0 F 108 20 128/72 95 09/05/16 22:30 09/05/16 22:30 09/05/16 22:30 09/05/16 22:30 09/05/16 22:30 Vital Signs Reviewed: Yes Appearance: Positive: Well-Appearing, Well-Nourished Skin: Positive: Warm, Skin Color Reflects Adequate Perfusion, Other - open wound with scant amount of white discharge from the area, packed with gauze - without erythema, warmth Head/Face: Positive: Normal Head/Face Inspection Eyes: Positive: HILLARY Neck: Positive: Supple, No Lymphadenopathy Respiratory/Lung Sounds: Positive: Clear to Auscultation, Breath Sounds Present Cardiovascular: Positive: Normal, RRR, Pulses are Symmetrical in both Upper and Lower Extremities Musculoskeletal: Positive: Strength/ROM Intact, Pain @ - right foot Neurological: Positive: Speech Normal Psychiatric: Positive: Normal AVPU Assessment: Alert - [place] Coma Scale Best Eye Response: 4 - Spontaneous Best Motor Response: 6 - Obeys Commands Best Verbal Response: 5 - Oriented Coma Scale Total: 15 Diagnostics - Vital Signs Vital Signs Temp Pulse Resp BP Pulse Ox 09/05/16 23:01 98.2 F 102 18 150/85 94 09/05/16 22:30 98.0 F 108 20 128/72 95 - Laboratory Lab Statement: Any lab studies that have been ordered have been reviewed, and results considered in the medical decision making process. Lower Extremity Course/Dx - Course Course Of Treatment: see HPI. Patient discharged home with Tramadol. Rx cancelled after patient stated the medication did not work for her. This was communicated to her upon discharge. She is to follow up with Dr. Garcia tomorrow. - Diagnoses Differential Diagnosis/HQI/PQRI: Positive: Infection, Osteomyelitis, Septic Arthritis Provider Diagnoses: Post-op pain Discharge - Discharge Plan Condition: Stable Disposition: HOME Prescriptions: traMADol TAB* [Ultram*] 50 mg PO Q12H PRN #6 tab MDD 2 PRN Reason: Pain Referrals: Aishwarya Solis MD [Primary Care Provider] - Additional Instructions: Follow up with Dr. Garcia Call tomorrow for appt Ibuprofen 600mg three times daily for inflammation
== END 2016-09-05 23:30 | disposition home or self-care (01) ==
LOC: ED 22:30
DX: G89.18 Other acute postprocedural pain (principal); R53.83 Other fatigue; R06.02 Shortness of breath; M79.1 Myalgia; F17.210 Nicotine dependence, cigarettes, uncomplicated
CPT/HCPCS: 99282; A9270-GY

== ENCOUNTER 2016-09-06 10:43 | Inpatient (IN) | payer OTHER ==
[2016-09-06] MEDS ORDERED: HYDROmorphone* 2 MG/ML 1 ML SYR IV PRN ×2 (10:46)
[2016-09-06] MEDS ORDERED: Zosyn per Pharmacy* NOTE FOLLOW UP PRN (12:03)
[2016-09-06] MEDS: oxyCODONE TAB* 5 MG TAB PO PRN (12:23)
[2016-09-06] MEDS ORDERED: Zosyn 3.375 gm X 1 dose, then dose per Pharmacy IVPB ONE ×2 (12:30)
[2016-09-06] MEDS ORDERED: Vancomycin 1500 MG IV - x ONCE IVPB ONE ×2 (13:00)
[2016-09-06] MEDS ORDERED: Acetaminophen TAB* 325 MG PO PRN (14:58)
[2016-09-06] MEDS ORDERED: Vancomycin(*) 1,500 MG in NS 0.9% 250 ML* 250 ML IVPB ONE (15:00)
[2016-09-06] MEDS ORDERED: Zosyn per Pharmacy* NOTE FOLLOW UP SCH (15:00)
[2016-09-06] MEDS ORDERED: Albuterol 2.5 MG/3 ML NEB.SOL* (0.083%) INH PRN (15:03)
[2016-09-06] MEDS ORDERED: Dextrose 50% Syringe 50 ML* 25 GM/50 ML SYRINGE IV PUSH PRN ×3 (15:03→23:30)
--- NOTE | 2016-09-06 15:05 | HP ---
HISTORY AND PHYSICAL: DATE OF ADMISSION: 09/06/16 HISTORY OF PRESENT ILLNESS: Margaux is a 36-year-old obese female with diabetes , some peripheral vascular disease who is 7 weeks out from transmetatarsal amputation, right foot, this was performed for chronic osteomyelitis. She has had poor wound healing laterally, failure to stop smoking and with some wound dehiscence currently and increasing pain pattern. She is admitted for IV antibiotics, wound care, possible revision of amputation. CURRENT MEDICATIONS: Include: 1. Gabapentin 300 mg 3 times a day. 2. Albuterol 2.5 mg/3 mL 0.83% 4 times a day as needed. 3. NovoLog 70/30 at 100 units/mL sliding scale. 4. Omeprazole 20 mg per day. 5. Lantus 100 units at night. 6. Amlodipine 10 mg every day. 7. Bisoprolol fumarate 10 mg per day. 8. Torsemide 20 mg twice a day. 9. Atorvastatin 80 mg per day. 10. Losartan 100 mg per day. 11. Baby aspirin per day. 12. Occasional Percocet for pain. ALLERGIES: 1. MORPHINE. 2. CODEINE. 3. AUGMENTIN. 4. BACTRIM. 5. HEPARIN. 6. FLAGYL. PROBLEM LIST: Includes morbid obesity, chronic tobacco abuse, some sleep apnea , some asthma symptoms, insulin dependent diabetes with polyneuropathy and lumbosacral spondylosis. PHYSICAL EXAMINATION GENERAL: Margaux is obese, no acute distress. Appropriate mood and affect. The right foot shows, warm foot with a thready dorsal pulse. She has a transverse fishmouth incision at the transmetatarsal level, lateral 50% of the wound dehisced, tracking deep down to bone, mild serious drainage. No foul smelling. HEENT: Her oropharynx shows poor dentition, edentulous. NECK: Supple. CHEST EXAM: Shows some wheezing in all lung hernandez. CARDIAC EXAM: Shows prominent heart sounds, regular rate. No extra sounds noted. ABDOMEN: Large, distended, soft and nontender. ADMISSION RADIOGRAPHS: Three views of the right foot shows transmetatarsal amputation. No evidence of osteomyelitis. ASSESSMENT AND PLAN: The patient with obesity, chronic smoking, and diabetes with poor wound healing, right transmetatarsal amputation. The patient will be admitted for IV antibiotic, pain control, local wound care, and perfusion evaluation as well. She will need medical consultation. [id number]/CPS #: [id number] VIRI
[2016-09-06] MEDS ORDERED: Vancomycin per Pharmacy* NOTE FOLLOW UP PRN (15:15)
[2016-09-06] MEDS: Ondansetron INJ* 2 MG/ML VIAL IV SCH ×2 (15:43→19:38)
[2016-09-06] MEDS: Nicotine PATCH 21 MG/24 HR* PATCH TRANSDERM SCH (15:43)
[2016-09-06] MEDS ORDERED: Albuterol/Ipratropium NEB.SOL* Albuterol 2.5 MG/Ipratropium 0.5 MG 3 ML INH SCH (16:00)
--- NOTE | 2016-09-06 16:03 | RAD ---
HISTORY: Wheezing COMPARISONS: August 01, 2016 VIEWS:1: Single frontal portable view of the chest at 3:10 PM FINDINGS: LINES AND TUBES: None. CARDIOMEDIASTINAL SILHOUETTE: The cardiomediastinal silhouette is normal for portable technique. PLEURA: The costophrenic angles are sharp. No pleural abnormalities are noted. LUNG PARENCHYMA: The lungs are clear. ABDOMEN: The upper abdomen is clear. There is no subphrenic gas. BONES AND SOFT TISSUES: No bone or soft tissue abnormalities are noted. IMPRESSION: NO ACTIVE CARDIOPULMONARY DISEASE.
[2016-09-06] MEDS ORDERED: Insulin LISPRO* 1 UNITS UNIT SUBCUT SCH (16:30)
[2016-09-06] MEDS ORDERED: Insulin LISPRO* 1 UNITS UNIT SUBCUT ONE ×3 (17:41→23:38)
[2016-09-06] MEDS: amLODIPine TAB* 5 MG PO SCH (17:57)
[2016-09-06] MEDS: Bisoprolol TAB* 5 MG PO SCH (17:58)
[2016-09-06] MEDS: Losartan TAB* 25 MG PO SCH (17:58)
[2016-09-06] MEDS: Atorvastatin* 80 MG TAB PO SCH (17:58)
[2016-09-06] MEDS: Isosorbide Mononitrate ER TAB* 60 MG PO SCH (17:58)
[2016-09-06] MEDS: Omeprazole CAP* 20 MG PO SCH (17:58)
[2016-09-06] MEDS: HYDROmorphone* 2 MG/ML 1 ML SYR IV PRN ×2 (18:08→21:36)
[2016-09-06] MEDS ORDERED: Insulin GLARGINE(*) 1 UNITS UNIT SUBCUT ONE ×2 (18:15→23:30)
[2016-09-06 18:33] LABS: Hematocrit 41 % (35-47); Hemoglobin 12.9 g/dl (12.0-16.0); Mean Corpuscular HGB Conc 32 g/dl (31-36); Mean Corpuscular Hemoglobin 30 pg (27-31); Mean Corpuscular Volume 96 fL (80-97); Mean Platelet Volume 9 um3 (7.4-10.4); Red Blood Count 4.26 10^6/ul (4.0-5.4); Red Cell Distribution Width 16 % (10.5-15); White Blood Count 10.3 10^3/ul (3.5-10.8)
[2016-09-06] MEDS: ZOSYN 3.375 GM Q12H per EXTENDED INFUSION IVPB SCH ×2 (18:33)
[2016-09-06 18:39] LABS: BUN/Creatinine Ratio 8.9 (8-20); C Reactive Protein 8.61 mg/L (< 5.00); Calcium 8.3 mg/dL (8.6-10.3); EGFR African American 17.1 (>60); EGFR Non-African American 13.3 (>60); Potassium 4.9 mmol/L (3.5-5.0)
[2016-09-06] MEDS ORDERED: Insulin REGULAR(*) 1 UNITS UNIT IV PUSH ONE ×2 (19:25→20:43)
[2016-09-06] MEDS ORDERED: Insulin REGULAR(*) 1 UNITS UNIT ONE (19:34)
[2016-09-06] MEDS: Mometasone/Formoter 200/5 MDI INH SCH (19:45)
[2016-09-06] MEDS: Albuterol/Ipratropium NEB.SOL* Albuterol 2.5 MG/Ipratropium 0.5 MG 3 ML INH SCH (19:45)
[2016-09-06 20:17] LABS: Erythrocyte Sed Rate 48 mm/Hr (0-14)
[2016-09-06] MEDS: Gabapentin CAP(*) 300 MG PO SCH (21:00)
--- NOTE | 2016-09-06 21:40 | HP ---
CC: Dr. Solis; Dr. Benavidez; Dr. Garcia * HISTORY AND PHYSICAL: DATE OF ADMISSION: 09/06/16 PRIMARY CARE PROVIDER: Dr. Solis. CONSULTING ID SPECIALIST: Dr. Benavidez. CONSULTING ORTHOPEDIST: Dr. Garcia. ATTENDING PHYSICIAN: Garrick Sanford MD * (DICTATED BY GWENDOLYN CUELLAR NP) CHIEF COMPLAINT: 1. Right lower extremity wound at transmetatarsal site. 2. Not feeling well. HISTORY OF PRESENT ILLNESS: Ms. Wright is a 36-year-old female patient with multiple medical problems. She has a history of melanoma; end-stage renal disease, on peritoneal dialysis; she has diabetic neuropathy; CAD; she has peripheral vascular disease; she is asthmatic; she has history of GERD; hypertension; hyperlipidemia; depression; anxiety, in addition to this, is also still smoking. She comes in today after she was in the ER last night. She says last few she just has not been feeling well. She has been aching all over. She has been feeling chills. She thinks she may have had a fever, she is not sure. She states she has been coughing, not feeling short of breath, and she has noticed that she has been wheezing. She also stated that she noticed that at her transmetatarsal amputation site, she started having a small wound a couple of weeks ago, then in the last few days, it has gotten bigger. There has been some purulent discharge and she said that there is some redness surrounding it. She was concerned, she went to the ER last night. She was then discharged last night from the emergency department and today she had followup already scheduled with Dr. Garcia, who evaluated the wound. There was concern for an underlying infection that might require IV antibiotics, so he sent her to the hospital to be evaluated for IV antibiotics. The patient now says that she is not having any chest pain, no shortness of breath. She denies abdominal pain. She states she has been feeling nauseated at times and she did have an episode of diarrhea, but her biggest complaint is that the wound on her foot is very painful, red. She has also been having significant discharge and some chills off and on. She was evaluated by Dr. Garcia, who has felt she needs IV antibiotics, and because of her medical complexity, we were asked to evaluate for the admission. PAST MEDICAL HISTORY: Significant for: 1. Melanoma. 2. End-stage renal disease, on peritoneal dialysis. 3. Diabetes. 4. Neuropathy. 5. Coronary artery disease. 6. Hypertension. 7. Hyperlipidemia. 8. Peripheral vascular disease. 9. Asthma. 10. GERD. 11. Depression. 12. Anxiety. PAST SURGICAL HISTORY: She has had: 1. Heart catheterization. 2. PD catheter insertion and removal. 3. Skin excision. 4. Right great toe amputation. 5. Right transmetatarsal amputation which was done in June. 6. Right lower extremity stent. 7. Left eye prosthesis. MEDICATIONS: Home meds according to her recall include: 1. Zebeta 10 mg p.o. q.p.m. 2. Aspirin 81 mg daily. 3. Albuterol 2 puffs inhaled every 6 hours as needed. 4. Lantus 80 units subcu b.i.d. 5. Insulin sliding scale. 6. Neurontin 300 mg p.o. t.i.d. 7. Lipitor 80 mg daily. 8. Amlodipine 10 mg daily. 9. Zofran 4 mg every 6 hours as needed. 10. Prilosec 20 mg daily. 11. Reglan 10 mg every 6 hours as needed. 12. Losartan 100 p.o. q.p.m. 13. Levaquin 500 mg p.o. every other day. 14. Imdur 60 mg p.o. q.p.m. ALLERGIES TO MEDICATIONS: Include AUGMENTIN, CODEINE, HEPARIN, FLAGYL, MORPHINE , REQUIP, BACTRIM, ERYTHROMYCIN, NIACIN, and PLASTIC TAPE. FAMILY HISTORY: Both her parents were diabetics. SOCIAL HISTORY: She is a pack-a-day smoker. She has been smoking for about 20 years. She does not drink alcohol. Surrogate decision maker is her fiance. REVIEW OF SYSTEMS: There is no documented fever here, but she does admit to having chills. She denied having any significant weight change. There was no ear discharge. There was no rhinorrhea. No sore throat. No thyroid enlargement. She denied having any chest pain. There was no orthopnea, no nocturnal dyspnea. There was no abdominal pain. There was episode of nausea, but no dysuria, no frequency. No seizure and no loss of consciousness. No pruritus and there is skin ulceration from my HPI. Review of 14 systems completed, all others negative. PHYSICAL EXAMINATION GENERAL: At this time, Ms. Wright is a 36-year-old female patient. She is chronically ill appearing. She is sitting in the hospital bed. She does not appear to be in any acute distress. VITAL SIGNS: Reveal blood pressure 152/84 with a pulse of 105, respirations 18 , O2 sat 95%, temperature 97.7. HEENT: Head atraumatic. Eyes: EOMs are intact. Sclerae anicteric and not pale. Throat: Oral mucosa appears to be dry. No oropharyngeal erythema. NECK: Supple. LUNGS: She had wheezing throughout. No rhonchi or rales. HEART: Sounds S1 and S2. She is tachycardic. Regular rate and rhythm. No murmurs, rubs, or gallops. ABDOMEN: Soft, flat, nontender. Bowel sounds present. EXTREMITIES: She is able to move her extremities with 5/5 strength and pulses were diminished in the lower extremities. They are 2+ in the upper extremities. She has 5/5 strength. NEUROLOGIC: She is awake, alert, and oriented x3. Speech clear. Tongue midline. No gross focal deficits. SKIN: Intact with the exception she does have a wound noted in the right lower extremity to the transmetatarsal amputation site. She is covered with a dressing currently. DIAGNOSTIC STUDIES/LAB DATA: Pending for today. I do have the labs from yesterday which revealed, WBC 10.1, RBC of 4.59, hemoglobin 14.0, hematocrit of 44. Her sodium was 128, potassium of 4.0, chloride 98, bicarb 23, BUN 27, creatinine of 3.56, her glucose was 612, a repeat glucose is pending. She had a foot x-ray done today. She is status post transmetatarsal amputation in position without erosion or periosteal reaction suggestive of osteomyelitis. Old medical records were reviewed. ASSESSMENT AND PLAN: Ms. Wright is a 36-year-old female patient coming from Dr. Garcia's office today for concern of transmetatarsal wound infection. We are asked to evaluate for admission. She will be admitted under inpatient status for: 1. Right transmetatarsal wound infection. At this point, we will go ahead and put her on vanco and Zosyn. I will touch base with Dr. Benavidez and Dr. Garcia. I am going to try to get a culture of that wound base. In addition to this, I am going to ESR and CRP. If those are elevated, we probably will have a low threshold of doing an MRI of her foot to make sure she does not have an osteo and we will again continue to follow and will do localize wound care. 2. Melanoma. Follow with primary. 3. End-stage renal disease, on peritoneal dialysis. I did touch base with the dialysis nurse and we will go ahead and continue with this. 4. Diabetes. Continue lispro sliding scale and Lantus. 5. Neuropathy. Continue gabapentin. 6. Coronary artery disease. She is on aspirin, statin, beta josse. We will continue. 7. Hypertension. Continue meds as prescribed. She is a little tachycardic over 105, but she did tell the nurse that she has not been taking her Zebeta, which I suspect the tachycardia is probably from rebound tachycardia, not because she was not taking the Zebeta. So, we will monitor this. 8. Hyperlipidemia. Continue statin therapy. 9. Peripheral vascular disease. She is on aspirin and statin. We will continue. 10. Asthma. She is wheezing pretty significantly on exam. I am going to put her on standing nebs and Dulera and put her on incentive spirometry and check a chest x- ray and also incentive spirometry as well. 11. Depression and anxiety. Continue supportive care. 12. Gastroesophageal reflux disease. Continue PPI therapy. 13. DVT prophylaxis. She is allergic to HEPARIN and Lovenox is not an option because of her kidney disease. So, we will put her on SCDs. 14. Code status. Full code. 15. Fluids, electrolytes, nutrition. She can have a consistent carb diet. TIME SPENT: On the admission was approximately 60 minutes, greater than half the time was spent [id number] with the patient obtaining my history and physical, other half of the time was spent going over the plan of care with the patient and implementing the plan of care. I did discuss the plan of care with my attending, Dr. Sanford; he is in agreement. GWENDOLYN CUELLAR, VIOLET [id number]/[facility] #: [id number] VIRI
[2016-09-06] MEDS: Nicotine Patch Removal NOTE FOLLOW UP SCH (22:53)
[2016-09-06] MEDS ORDERED: Insulin GLARGINE(*) 1 UNITS UNIT ONE (23:37)
[2016-09-07] MEDS: Ondansetron INJ* 2 MG/ML VIAL IV SCH ×6 (00:05→20:55)
[2016-09-07] MEDS ORDERED: Dextrose 50% Syringe 50 ML* 25 GM/50 ML SYRINGE IV PUSH PRN (01:24)
[2016-09-07] MEDS ORDERED: Insulin GLARGINE(*) 1 UNITS UNIT SUBCUT ONE (01:24)
[2016-09-07] MEDS ORDERED: Insulin LISPRO* 1 UNITS UNIT SUBCUT ONE ×2 (01:24→01:35)
[2016-09-07] MEDS ORDERED: Insulin GLARGINE(*) 1 UNITS UNIT ONE (01:34)
[2016-09-07] MEDS: Albuterol/Ipratropium NEB.SOL* Albuterol 2.5 MG/Ipratropium 0.5 MG 3 ML INH SCH ×5 (02:10→19:32)
[2016-09-07] MEDS: Insulin LISPRO* 1 UNITS UNIT SUBCUT SCH ×8 (03:33→20:54)
[2016-09-07] MEDS: HYDROmorphone* 2 MG/ML 1 ML SYR IV PRN ×5 (05:52→22:36)
[2016-09-07] MEDS: ZOSYN 3.375 GM Q12H per EXTENDED INFUSION IVPB SCH ×4 (05:54→17:22)
[2016-09-07] MEDS ORDERED: Vancomycin Random Level* NOTE FOLLOW UP ONE (06:00)
[2016-09-07 06:18] LABS: Hematocrit 41 % (35-47); Hemoglobin 12.9 g/dl (12.0-16.0); Mean Corpuscular HGB Conc 32 g/dl (31-36); Mean Corpuscular Hemoglobin 30 pg (27-31); Mean Corpuscular Volume 95 fL (80-97); Mean Platelet Volume 9 um3 (7.4-10.4); Red Blood Count 4.28 10^6/ul (4.0-5.4); Red Cell Distribution Width 16 % (10.5-15); White Blood Count 12.3 10^3/ul (3.5-10.8)
[2016-09-07 06:32] LABS: Calcium 8.8 mg/dL (8.6-10.3); EGFR African American 17.2 (>60); EGFR Non-African American 13.4 (>60); Potassium 3.8 mmol/L (3.5-5.0)
[2016-09-07 06:55] LABS: Vancomycin Random 24.2 mcg/mL
[2016-09-07] MEDS: Mometasone/Formoter 200/5 MDI INH SCH ×2 (07:36→19:33)
[2016-09-07] MEDS: Mupirocin 2% OINT* TUBE TOPICAL SCH (08:05)
--- NOTE | 2016-09-07 08:36 | PN ---
Subjective Date of Service: 09/07/16 Interval History: This is a 36 yo female with poorly controlled IDDM, ESRD on PD and h/o multiple amputations due to osteomyelitis who was referred to the hospital for treatment of a wound infection at the site of her rather recent transmetarsal amputation. Hospitalist group was consulted for management of her glucose as she was severely hyperglycemic upon arrival. She was transferred to the ICU for closer monitoring and more frequent glucose checks. Overnight, glucose remained significantly elevated without evidence of acidosis. She received her usual 80U Lantus in the evening, plus an additional 30U given throughout the night. She received 80U of SQ Lispro and an additional 20U IV regular insulin. Despite these large doses there was no improvement in glucose until this am. This timing of glucose improvement corresponds with her completing her PD treatment. Patient has noted a significant decline in her glycemic control since initiating PD. Additionally, patient had at least one episode of liquid stool overnight. No c/ o abd pain, n/v. Her foot feels slightly better, but still sore. Afebrile overnight. She has been started on Zosyn. Objective Active Medications: Acetaminophen (Tylenol Tab*) 650 mg PO Q4H PRN PRN Reason: FEVER/PAIN Albuterol (Ventolin 2.5 Mg/3 Ml Neb.Kaylynn*) 2.5 mg INH Q2H PRN PRN Reason: SOB/WHEEZING Albuterol/Ipratropium (Duoneb (Albuterol 2.5 Mg/Ipratropium 0.5 Mg)) 1 neb INH [id number] AWAKE [facility] Last Admin: 09/07/16 07:36 Dose: 1 neb Amlodipine Besylate (Norvasc Tab*) 10 mg PO QPM [facility] Last Admin: 09/06/16 17:57 Dose: 10 mg Aspirin (Aspirin Low Dose Tab*) 81 mg PO DAILY [facility] Atorvastatin Calcium (Lipitor*) 80 mg PO QPM [facility] Last Admin: 09/06/16 17:58 Dose: 80 mg Bisoprolol Fumarate (Zebeta Tab*) 10 mg PO QPM [facility] Last Admin: 09/06/16 17:58 Dose: 10 mg Dextrose (D50w Syringe 50 Ml*) 12.5 gm IV PUSH .FOR FS < 60 - SS PRN PRN Reason: FS < 60 Gabapentin (Neurontin Cap(*)) 300 mg PO TID [facility] Last Admin: 09/06/16 21:00 Dose: Not Given Hydromorphone HCl (Dilaudid Iv*) 2 mg IV Q4H PRN PRN Reason: PAIN MODERATE Last Admin: 09/07/16 05:52 Dose: 2 mg Piperacillin Sod/Tazobactam (Sod 3.375 gm/ Sodium Chloride) 100 mls @ 25 mls/ hr IVPB Q12H [facility] Last Admin: 09/07/16 05:54 Dose: 25 mls/hr Insulin Glargine (Lantus(*)) 80 units SUBCUT BID [facility] Insulin Human Lispro (Humalog*) 0 units SUBCUT FS Q2 ICU [facility] PRN Reason: Protocol Last Admin: 09/07/16 08:03 Dose: Not Given Isosorbide Mononitrate (Imdur Er Tab*) 60 mg PO QPM [facility] Last Admin: 09/06/16 17:58 Dose: 60 mg Losartan Potassium (Cozaar Tab*) 100 mg PO QPM [facility] Last Admin: 09/06/16 17:58 Dose: 100 mg Mometasone Furoate/Formoterol Fumar (Dulera 200/5 Mdi*) 2 puff INH BID [facility] Last Admin: 09/07/16 07:36 Dose: 2 puff Mupirocin (Bactroban 2 % Oint*) 1 applic TOPICAL DAILY [facility] Last Admin: 09/07/16 08:05 Dose: 1 apply Nicotine (Nicotine Patch 21 Mg/24 Hr*) 1 patch TRANSDERM DAILY [facility] Last Admin: 09/06/16 15:43 Dose: 1 patch Omeprazole (Prilosec Cap*) 20 mg PO QPM [facility] Last Admin: 09/06/16 17:58 Dose: 20 mg Ondansetron HCl (Zofran Inj*) 4 mg IV Q4H [facility] Last Admin: 09/07/16 06:42 Dose: 4 mg Oxycodone HCl (Roxycodone Tab*) 5 mg PO Q4H PRN PRN Reason: PAIN MILD Last Admin: 09/06/16 12:23 Dose: 5 mg Pharmacy Consult (Zosyn Per Pharmacy*) 1 note FOLLOW UP .ZOSYN PER PHARMACY [facility] Pharmacy Consult (Vancomycin Per Pharmacy*) 1 note FOLLOW UP . PRN PRN Reason: PER PROTOCOL Pharmacy Profile Note (Nicotine Patch Removal Note*) 1 note FOLLOW UP 2100 [facility] Last Admin: 09/06/16 22:53 Dose: 1 note Vital Signs: Temp Pulse Resp BP Pulse Ox 98.8 F 86 11 122/54 90 09/07/16 07:32 09/07/16 08:00 09/07/16 08:00 09/07/16 08:00 09/07/16 08:00 Appearance: Obese female who appears younger than stated age in NAD Respiratory: Symmetrical Chest Expansion and Respiratory Effort, Clear to Auscultation Cardiovascular: NL Sounds; No Murmurs; No JVD, RRR Abdominal: NL Sounds; No Tenderness; No Distention Extremities: No Edema, - - limited exam of her R foot shows no erythema or significant edema, wound was not examined. Neurological: Alert and Oriented x 3 Result Diagrams: 09/07/16 06:07 09/07/16 06:07 Additional Lab and Data: Laboratory Tests 09/06/16 09/06/16 18:15 18:15 ESR 48 H C-Reactive Protein 8.61 H Microbiology and Other Data: Microbiology 09/06/16 15:34 Skin and Soft Tissue MRSA/MSSA (PCR - Final Foot Right Mrsa Negative S.aureus Negative Gram Stain - Final Assess/Plan/Problems-Billing Assessment: This is a 36 yo female with poorly controlled IDDM, ESRD on PD followed by Dr Marrufo, CAD, PVD, asthma, GERD, HTN, HLD, depression and anxiety and prior amputations related to osteomyelitis who was admitted for treatment of a wound infection on her R foot by Dr Garcia. Hospitalist group has been asked to consult for glucose management. - Patient Problems (1) Wound infection Comment: Cont Zosyn Improved foot edema and erythema CRP and ESR only minimally elevated Requested wound care consultation Further management per Dr Garcia (2) IDDM (insulin dependent diabetes mellitus) Comment: Poorly controlled, last HgbA1c 14.3% Patient reports compliance with insulin administration and dietary recommendations Glucose monitoring overnight demonstrated severe hyperglycemia, resistant to the nearly ~130 units of additional insulin given until PD was completed, drawing in to question whether her PD solution is contributing to her poor glucose control Contacted her senior network security engineer, Dr Marrufo, to discuss further Will continue close monitoring with home Lantus doses and SS Humalog meal time boluses (3) Diarrhea Comment: Liquid stool overnight No additional GI complaints Screen for Cdiff colitis (4) ESRD (end stage renal disease) Comment: Continue peritoneal dialysis Followed by Dr Marrufo Will follow electrolytes (5) HTN (hypertension) Comment: Normotensive Continue amlodipine, bisoprolol, losartan (6) PVD (peripheral vascular disease) Comment: Relatively recent RLE stenting Cont ASA Consider repeat vascular studies if there is trouble with wound healing (7) Hx of coronary artery disease Comment: Asx Cont med management (8) DVT prophylaxis Comment: SCDs Status and Disposition: Inpatient. Dispo per ortho. Hospitalists will continue to follow along
[2016-09-07] MEDS: Gabapentin CAP(*) 300 MG PO SCH ×3 (09:01→20:54)
[2016-09-07] MEDS: oxyCODONE TAB* 5 MG TAB PO PRN ×2 (09:01→22:20)
[2016-09-07] MEDS: Nicotine PATCH 21 MG/24 HR* PATCH TRANSDERM SCH (09:01)
[2016-09-07] MEDS: Insulin GLARGINE(*) 1 UNITS UNIT SUBCUT SCH ×2 (09:01→20:54)
[2016-09-07] MEDS: Aspirin Low Dose CHEW TAB* 81 MG PO SCH (09:01)
--- NOTE | 2016-09-07 10:50 | PN ---
Progress Note - Progress Note Date of Service: 09/07/16 SOAP: Subjective: 36 y/o female s/p transmeta amuptation 07/18/[address] Garcia, admitted 09/06 for wound dehiscence, poor healing; was found to have increase glucose to >500 , transferred to ICU for tight management. Patient BG levels improving. Patient Objective: General- resting in bed comfortably, NAD MSK- dressing removed, area of dehiscence at lateral aspect of incision, approximately 2cm, bone visible, no drainage noted, + eschar. minimal erythema at incision, no lymphangtic spread. redressed with xeroform gauze, kerlex, luis fernando. PT 1+, foot warm. Vital Signs Temp 98.8 F 09/07/16 07:32 Pulse 83 09/07/16 11:00 Resp 16 09/07/16 11:00 BP 100/45 09/07/16 10:49 Pulse Ox 90 09/07/16 11:00 Intake & Output 09/06/16 09/07/16 09/07/16 18:59 06:59 18:59 Intake Total 720 250 240 Output Total 600 100 Balance 120 150 240 Weight 213 lb 213 lb 13.574 oz Intake: IVPB 100 NS to Maintain IV Patency 100 Oral 720 150 240 Output: Urine 600 100 Other: Date of Last Bowel 09/07/2016 Movement # Bowel Movements 1 Estimated Stool Amount Medium Assessment: Stable 36 y/o female s/p transmeta amuptation 07/18/[address] Garcia, admitted 09/06 for wound dehiscence, poor healing Plan: - vascular consult placed - Ric Fox currently for IV ABX consult placed for lashay C&S pending - Dressing changed- wound care consulted - Current plan to evaluate vasc prior to any surgical intervention Active Medications Generic Name Dose Route Start Last Admin Trade Name Freq PRN Reason Stop Dose Admin Acetaminophen 650 mg 09/06/16 14:58 Tylenol Tab* PO Q4H PRN FEVER/PAIN Albuterol 2.5 mg 09/06/16 15:03 Ventolin 2.5 Mg/3 Ml Neb.Kaylynn* INH Q2H PRN SOB/WHEEZING Albuterol/Ipratropium 1 neb 09/06/16 19:00 09/07/16 07:36 Duoneb (Albuterol 2.5 Mg/Ipratropium 0.5 Mg) INH 1 neb [id number] AWAKE [facility] Administration Amlodipine Besylate 10 mg 09/06/16 18:00 09/06/16 17:57 Norvasc Tab* PO 10 mg QPM [facility] Administration Aspirin 81 mg 09/07/16 09:00 09/07/16 09:01 Aspirin Low Dose Tab* PO 81 mg DAILY [facility] Administration Atorvastatin Calcium 80 mg 09/06/16 18:00 09/06/16 17:58 Lipitor* PO 80 mg QPM [facility] Administration Bisoprolol Fumarate 10 mg 09/06/16 18:00 09/06/16 17:58 Zebeta Tab* PO 10 mg QPM [facility] Administration Dextrose 12.5 gm 09/07/16 01:24 D50w Syringe 50 Ml* IV PUSH .FOR FS < 60 - SS PRN FS < 60 Gabapentin 300 mg 09/06/16 21:00 09/07/16 09:01 Neurontin Cap(*) PO 300 mg TID [facility] Administration Hydromorphone HCl 2 mg 09/06/16 15:13 09/07/16 10:27 Dilaudid Iv* IV 2 mg Q4H PRN Administration PAIN MODERATE Piperacillin Sod/Tazobactam 100 mls @ 25 mls/hr 09/06/16 17:30 09/07/16 05:54 Sod 3.375 gm/ Sodium Chloride IVPB 25 mls/hr Q12H [facility] Administration Insulin Glargine 80 units 09/07/16 09:00 09/07/16 09:01 Lantus(*) SUBCUT 80 units BID [facility] Administration Insulin Human Lispro 0 units 09/07/16 02:00 09/07/16 10:43 Humalog* SUBCUT 3 units FS Q2 ICU [facility] Administration Protocol Isosorbide Mononitrate 60 mg 09/06/16 18:00 09/06/16 17:58 Imdur Er Tab* PO 60 mg QPM [facility] Administration Losartan Potassium 100 mg 09/06/16 18:00 09/06/16 17:58 Cozaar Tab* PO 100 mg QPM [facility] Administration Mometasone Furoate/Formoterol Fumar 2 puff 09/06/16 21:00 09/07/16 07:36 Dulera 200/5 Mdi* INH 2 puff BID [facility] Administration Mupirocin 1 applic 07/14/17 09:00 09/07/16 08:05 Bactroban 2 % Oint* TOPICAL 1 apply DAILY [facility] Administration Nicotine 1 patch 09/06/16 16:00 09/07/16 09:01 Nicotine Patch 21 Mg/24 Hr* TRANSDERM 1 patch DAILY [facility] Administration Omeprazole 20 mg 09/06/16 18:00 09/06/16 17:58 Prilosec Cap* PO 20 mg QPM [facility] Administration Ondansetron HCl 4 mg 09/06/16 15:00 09/07/16 10:27 Zofran Inj* IV 4 mg Q4H [facility] Administration Oxycodone HCl 5 mg 09/06/16 10:46 09/07/16 09:01 Roxycodone Tab* PO 5 mg Q4H PRN Administration PAIN MILD Pharmacy Consult 1 note 09/06/16 15:00 Zosyn Per Pharmacy* FOLLOW UP .ZOSYN PER PHARMACY [facility] Pharmacy Consult 1 note 09/06/16 15:15 Vancomycin Per Pharmacy* FOLLOW UP . PRN PER PROTOCOL Pharmacy Profile Note 1 note 09/06/16 21:00 09/06/16 22:53 Nicotine Patch Removal Note* FOLLOW UP 1 note 2100 [facility] Administration
--- NOTE | 2016-09-07 10:54 | PN ---
Progress Note - Progress Note Date of Service: 09/07/16 SOAP: Subjective: [] Objective: [] Assessment: [] Plan: []
[2016-09-07] MEDS: Diphenoxylat/Atrop 2.5-0.025M* 1 TAB PO ONE ×2 (12:03→13:58)
[2016-09-07] MEDS ORDERED: Insulin LISPRO* 1 UNITS UNIT SUBCUT SCH (13:00)
[2016-09-07] MEDS ORDERED: Heparin VIAL(*) 5000 UNITS/ML VIAL (FIVE THOUSAND) SUBCUT SCH (14:00)
--- NOTE | 2016-09-07 14:10 | PN ---
Hospitalist Progress Note Questioned patient regarding her listed heparin allergy and status of anticoagulation. She states that when she underwent revascularization at [place] in June she was told that heparin was causing her to clot and she was placed on Eliquis after the stenting procedure. ?Etiology, maybe HIT or arterial clot discovered? She states she should still be on Eliquis but her insurance stopped covering it, so she was started Coumadin 3 days ago. She states that she was started on a dose of 2.5 mg. INR was 0.8 at admission. Will plan to restart Coumadin at 5mg daily and monitor Coumadin daily.
[2016-09-07] MEDS: Warfarin TAB(*) 5 MG PO SCH (17:26)
[2016-09-07] MEDS: amLODIPine TAB* 5 MG PO SCH (17:26)
[2016-09-07] MEDS: Omeprazole CAP* 20 MG PO SCH (17:26)
[2016-09-07] MEDS: Atorvastatin* 80 MG TAB PO SCH (17:26)
[2016-09-07] MEDS: Bisoprolol TAB* 5 MG PO SCH (17:26)
[2016-09-07] MEDS: Losartan TAB* 25 MG PO SCH (17:26)
[2016-09-07] MEDS: Isosorbide Mononitrate ER TAB* 60 MG PO SCH (17:30)
--- NOTE | 2016-09-07 20:23 | CONS ---
CONSULTATION REPORT: DATE OF CONSULT: 09/07/16 REQUESTING PROVIDER: Luis Antonio Bell NP CONSULTING SERVICE: Infectious Disease. REASON FOR CONSULT: Right foot transmetatarsal amputation, slight dehiscence, and wound infection. IMPRESSION: 1. Status post right foot transmetatarsal amputation on 07/16/16. Culture at that time grew Propionibacterium acnes, had been on antibiotics proceeding the surgery, has had dehiscence particularly in the lateral part of the wound with increasing foot pain, no cellulitis. There is wound infection, potentially small abscess. A Gram stain was taken that shows 2+ neutrophils, 3+ gram positive bacilli, 1+ gram positive cocci. She does not have a history of methicillin-resistant Staphylococcus aureus infection. 2. Diabetes with peripheral neuropathy. 3. Peripheral vascular disease. 4. End-stage renal disease, on peritoneal dialysis. RECOMMENDATIONS: Agree with broad-spectrum antibiotics. I would start the vancomycin for now, should be therapeutic in another 2 or 3 days with the dose that she has had while awaiting the culture. She will have close attention to glucose control, keeping the leg elevated here. If she is not making progress, a revision would be a consideration which Dr. Garcia is following her for. HISTORY OF PRESENT ILLNESS: This is a 36-year-old diabetic woman, who in June had a right foot transmetatarsal amputation for chronic osteomyelitis, had been doing fairly well, but recently has had increasing pain in the right lateral foot and dehiscence of the wound, was seen by Dr. Garcia and recommended she come to the hospital. A culture was taken and the results are above. She had a white count of 10,000 on admission, a C-reactive protein of 9, started on vanco and Zosyn. Her pain is about the same today, maybe a little bit better. She has no pain elsewhere. PAST MEDICAL HISTORY: 1. Insulin-dependent diabetes complicated by neuropathy and end-stage renal disease, on peritoneal dialysis. 2. Melanoma. 3. Neuropathy. 4. Coronary artery disease. 5. Hypertension. 6. Hyperlipidemia. 7. Peripheral vascular disease. 8. Asthma. 9. Gastroesophageal reflux disease. 10. Depression. 11. Anxiety. 12. Status post PD catheter placement. 13. Status post right great toe amputation and right transmetatarsal amputation. 14. Right lower extremity stent. 15. Left eye prosthesis. MEDICATIONS: 1. Tylenol. 2. Aspirin. 3. Lipitor. 4. Bisoprolol. 5. Gabapentin. 6. Insulin glargine. 7. Imdur. 8. Losartan. 9. Nicotine patch. 10. Omeprazole. 11. Zosyn 3.375 mg every 12 hours by extended infusion. ALLERGIES: AUGMENTIN, CODEINE, HEPARIN, FLAGYL, MORPHINE, REQUIP, BACTRIM, ERYTHROMYCIN, NIACIN, and PLASTIC TAPE. FAMILY HISTORY: Diabetes. No tuberculosis. SOCIAL HISTORY: She lives outside of [place]. No travel. No injection drugs. REVIEW OF SYSTEMS: All negative to full review of systems except as noted above. PHYSICAL EXAM: Vital Signs: Temperature is 37, heart rate 70, respiratory rate 15, blood pressure 103/42, O2 sat 96% on room air. General: She is awake, not in distress. Neurological: She is oriented x3. Follows all commands. Moves all extremities. Sensation is decreased to light touch in the feet bilaterally. HEENT: There is no conjunctival hemorrhage. Oropharynx without lesions. Neck is supple without nuchal rigidity. Lymph Nodes: There are no palpable inguinal lymph nodes. Heart: Regular rate and rhythm without rubs, murmurs, or gallops. Lungs: Clear to auscultation bilaterally. Abdomen: Soft , nontender, nondistended. There is a peritoneal dialysis catheter. Skin: There is no rash or splinter hemorrhages. Musculoskeletal: There is no spine tenderness to palpation. In the right foot transmetatarsal amputation site, there is scant erythema. There is no fluctuance or crepitus. Lateral aspect of the wound open about 1 cm with underlying dry eschar. LABORATORY DATA: Potassium 3.8, creatinine 3.7. White blood cell count 12, hemoglobin 12, and platelets 300. Please see impressions and recommendations as outlined above, which I have discussed with . Thank you for asking me to see Ms. Wright in consultation. [id number]/[facility] #: [id number] VIRI
[2016-09-07] MEDS: Nicotine Patch Removal NOTE FOLLOW UP SCH (22:53)
[2016-09-08] MEDS ORDERED: Insulin LISPRO* 1 UNITS UNIT SUBCUT ONE (00:19)
[2016-09-08] MEDS: Albuterol/Ipratropium NEB.SOL* Albuterol 2.5 MG/Ipratropium 0.5 MG 3 ML INH SCH ×4 (01:21→19:56)
[2016-09-08] MEDS: Insulin LISPRO* 1 UNITS UNIT SUBCUT SCH ×6 (01:37→21:09)
[2016-09-08] MEDS: Ondansetron INJ* 2 MG/ML VIAL IV SCH ×7 (01:40→23:27)
[2016-09-08] MEDS: oxyCODONE TAB* 5 MG TAB PO PRN ×3 (03:59→13:22)
[2016-09-08] MEDS: HYDROmorphone* 2 MG/ML 1 ML SYR IV PRN ×5 (04:11→23:27)
[2016-09-08] MEDS: ZOSYN 3.375 GM Q12H per EXTENDED INFUSION IVPB SCH ×4 (05:16→17:18)
[2016-09-08] MEDS ORDERED: Vancomycin Random Level* NOTE FOLLOW UP SCH (06:00)
[2016-09-08] MEDS: Mometasone/Formoter 200/5 MDI INH SCH ×2 (07:50→19:58)
[2016-09-08] MEDS: Gabapentin CAP(*) 300 MG PO SCH ×3 (08:13→21:10)
[2016-09-08] MEDS: Aspirin Low Dose CHEW TAB* 81 MG PO SCH (08:13)
[2016-09-08] MEDS: Nicotine PATCH 21 MG/24 HR* PATCH TRANSDERM SCH (08:26)
[2016-09-08] MEDS: Insulin GLARGINE(*) 1 UNITS UNIT SUBCUT SCH (09:56)
[2016-09-08] MEDS: Mupirocin 2% OINT* TUBE TOPICAL SCH (10:00)
--- NOTE | 2016-09-08 10:59 | PN ---
Progress Note - Progress Note Date of Service: 09/08/16 SOAP: Subjective: Pt states she is doing well. Has some pain in her foot. controlled with medications. Denies CP, SOB, F/C. Objective: WDWN F, NAD, A&Ox3 RLE- dressing c/d/i, able f/e toes, able PF/DF ankle, calf soft NT, NVI Vital Signs Temp Pulse Resp BP Pulse Ox 97.7 F 84 16 115/53 90 09/08/16 07:50 09/08/16 07:50 09/08/16 09:55 09/08/16 07:50 09/08/16 07:50 Laboratory Results - last 24 hr 09/07/16 09/07/16 09/07/16 12:02 15:59 20:32 INR (Anticoag Therapy) POC Glucose (mg/dL) 128 H 204 H 431 H* Random Vancomycin 09/08/16 09/08/16 09/08/16 00:13 04:04 07:02 INR (Anticoag Therapy) 0.87 L POC Glucose (mg/dL) > 444 H* 249 H Random Vancomycin 09/08/16 09/08/16 07:03 08:21 INR (Anticoag Therapy) POC Glucose (mg/dL) 131 H Random Vancomycin 19.9 Assessment: Stable 36 y/o female s/p right transmeta amuptation 07/18/[address] Garcia, admitted 09/06 for wound dehiscence, poor healing Plan: - vascular consult placed - IV Vanco per Dr. Tan, C&S pending - cont wet to dry betadine dressings bid - awaiting vascular evaluation prior to considering revision - Pt is on coumadin, if revision is required medicine will be contacted in advance to manage anticoagulation
--- NOTE | 2016-09-08 11:52 | PN ---
Subjective Date of Service: 09/08/16 Interval History: Patient was quite hyperglycemic overnight again last night during her PD infusion. She is anxious to get home. Reports that her pain is not adequately managed and requesting more frequent Dilaudid. She denies cough, SOB, abd pain , n/v. Objective Active Medications: Acetaminophen (Tylenol Tab*) 650 mg PO Q4H PRN PRN Reason: FEVER/PAIN Albuterol (Ventolin 2.5 Mg/3 Ml Neb.Kaylynn*) 2.5 mg INH Q2H PRN PRN Reason: SOB/WHEEZING Albuterol/Ipratropium (Duoneb (Albuterol 2.5 Mg/Ipratropium 0.5 Mg)) 1 neb INH [id number] AWAKE [facility] Last Admin: 09/08/16 07:50 Dose: Not Given Amlodipine Besylate (Norvasc Tab*) 10 mg PO QPM [facility] Last Admin: 09/07/16 17:26 Dose: 10 mg Aspirin (Aspirin Low Dose Tab*) 81 mg PO DAILY [facility] Last Admin: 09/08/16 08:13 Dose: 81 mg Atorvastatin Calcium (Lipitor*) 80 mg PO QPM [facility] Last Admin: 09/07/16 17:26 Dose: 80 mg Bisoprolol Fumarate (Zebeta Tab*) 10 mg PO QPM [facility] Last Admin: 09/07/16 17:26 Dose: 10 mg Dextrose (D50w Syringe 50 Ml*) 12.5 gm IV PUSH .FOR FS < 60 - SS PRN PRN Reason: FS < 60 Gabapentin (Neurontin Cap(*)) 300 mg PO TID [facility] Last Admin: 09/08/16 08:13 Dose: 300 mg Hydromorphone HCl (Dilaudid Iv*) 1 mg IV Q4H PRN PRN Reason: PAIN MODERATE Last Admin: 09/08/16 09:55 Dose: 1 mg Piperacillin Sod/Tazobactam (Sod 3.375 gm/ Sodium Chloride) 100 mls @ 25 mls/ hr IVPB Q12H [facility] Last Admin: 09/08/16 05:16 Dose: 25 mls/hr Insulin Glargine (Lantus(*)) 80 units SUBCUT DAILY [facility] Last Admin: 09/08/16 09:56 Dose: 80 unit Insulin Glargine (Lantus(*)) 100 units SUBCUT 2100 [facility] Insulin Human Lispro (Humalog*) 0 units SUBCUT Q4H [facility] PRN Reason: Protocol Last Admin: 09/08/16 09:56 Dose: 2 units Isosorbide Mononitrate (Imdur Er Tab*) 60 mg PO QPM [facility] Last Admin: 09/07/16 17:30 Dose: 60 mg Losartan Potassium (Cozaar Tab*) 100 mg PO QPM [facility] Last Admin: 09/07/16 17:26 Dose: 100 mg Mometasone Furoate/Formoterol Fumar (Dulera 200/5 Mdi*) 2 puff INH BID [facility] Last Admin: 09/08/16 07:50 Dose: Not Given Mupirocin (Bactroban 2 % Oint*) 1 applic TOPICAL DAILY [facility] Last Admin: 09/08/16 10:00 Dose: 1 apply Nicotine (Nicotine Patch 21 Mg/24 Hr*) 1 patch TRANSDERM DAILY [facility] Last Admin: 09/08/16 08:26 Dose: 1 patch Omeprazole (Prilosec Cap*) 20 mg PO QPM [facility] Last Admin: 09/07/16 17:26 Dose: 20 mg Ondansetron HCl (Zofran Inj*) 4 mg IV Q4H [facility] Last Admin: 09/08/16 08:17 Dose: 4 mg Oxycodone HCl (Roxycodone Tab*) 10 mg PO Q4H PRN PRN Reason: PAIN Pharmacy Consult (Zosyn Per Pharmacy*) 1 note FOLLOW UP .ZOSYN PER PHARMACY [facility] Pharmacy Profile Note (Nicotine Patch Removal Note*) 1 note FOLLOW UP 2100 [facility] Last Admin: 09/07/16 22:53 Dose: Not Given Pharmacy Profile Note (Coumadin Daily Reminder*) 0 note FOLLOW UP 1700 [facility] Last Admin: 09/07/16 17:06 Dose: 1 note Warfarin Sodium (Coumadin Tab(*)) 5 mg PO DAILY@1700 [facility] PRN Reason: Protocol Last Admin: 09/07/16 17:26 Dose: 5 mg Vital Signs: Temp Pulse Resp BP Pulse Ox 97.7 F 84 16 115/53 90 09/08/16 07:50 09/08/16 07:50 09/08/16 09:55 09/08/16 07:50 09/08/16 07:50 Appearance: Middle aged female who appears older than stated age in NAD Respiratory: Symmetrical Chest Expansion and Respiratory Effort, - - few wheezes appreciated on lung exam Cardiovascular: NL Sounds; No Murmurs; No JVD, RRR Extremities: No Edema, - - R foot in clean dressing, wound not examined Neurological: Alert and Oriented x 3 Result Diagrams: 09/07/16 06:07 09/07/16 06:07 Additional Lab and Data: Laboratory Tests 09/06/16 09/06/16 18:15 18:15 ESR 48 H C-Reactive Protein 8.61 H Microbiology and Other Data: Microbiology 09/06/16 15:34 Skin and Soft Tissue MRSA/MSSA (PCR - Final Foot Right Mrsa Negative S.aureus Negative Gram Stain - Final Assess/Plan/Problems-Billing Assessment: This is a 36 yo female with poorly controlled IDDM, ESRD on PD followed by Dr Marrufo, CAD, PVD, asthma, GERD, HTN, HLD, depression and anxiety and prior amputations related to osteomyelitis who was admitted for treatment of a wound infection on her R foot by Dr Garcia. Hospitalist group has been asked to consult for glucose management. - Patient Problems (1) Wound infection Comment: Cont Zosyn, Vanco d/c'd by ID Improved foot edema and erythema CRP and ESR only minimally elevated Vascular consultation requested by ortho to help plan surgical revision if necessary Further management per Dr Garcia (2) IDDM (insulin dependent diabetes mellitus) Comment: Poorly controlled, last HgbA1c 14.3% Patient reports compliance with insulin administration and dietary recommendations Patient demonstrates a pattern of severe hyperglycemia overnight, during PD infusion and good control during daytime hours. Lower dextrose solution will be trialed this evening Will also increase evening Lantus to 100U and continue mealtime boluses and q4h glucose checks Patient would likely benefit from outpatient endocrinology support and consider a pump that could accomodate higher nighttime insulin needs (3) Diarrhea Comment: Liquid stools No additional GI complaints Cdiff neg Likely antibiotic related Start probiotic (4) ESRD (end stage renal disease) Comment: Continue peritoneal dialysis Followed by Dr Marrufo Will follow electrolytes (5) HTN (hypertension) Comment: Normotensive Continue amlodipine, bisoprolol, losartan (6) PVD (peripheral vascular disease) Comment: Relatively recent RLE stenting and [place] Cont ASA and Coumadin Patient reports heparin allergy per interventionalist at [facility] per patient report and anticoagulation was recommended after vascular intervention in June 2016 Vascular consult pending (7) Hx of coronary artery disease Comment: Asx Cont med management (8) DVT prophylaxis Comment: SCDs Coumadin, currently subtherapeutic. Reported heparin allergy Status and Disposition: Inpatient. Dispo per ortho. Hospitalists will continue to follow along
[2016-09-08] MEDS: Bisoprolol TAB* 5 MG PO SCH (17:17)
[2016-09-08] MEDS: Isosorbide Mononitrate ER TAB* 60 MG PO SCH (17:17)
[2016-09-08] MEDS: Omeprazole CAP* 20 MG PO SCH (17:17)
[2016-09-08] MEDS: Atorvastatin* 80 MG TAB PO SCH (17:17)
[2016-09-08] MEDS: amLODIPine TAB* 5 MG PO SCH (17:18)
[2016-09-08] MEDS: Warfarin TAB(*) 5 MG PO SCH (17:18)
[2016-09-08] MEDS: Losartan TAB* 25 MG PO SCH (17:18)
[2016-09-08] MEDS ORDERED: Metoclopramide TAB* 10 MG PO PRN (17:35)
[2016-09-08] MEDS ORDERED: Insulin GLARGINE(*) 1 UNITS UNIT SUBCUT SCH (21:00)
[2016-09-08] MEDS: Lactobacillus Acidophilu (GG)* 1 CAP CAP PO SCH (21:10)
[2016-09-08] MEDS: Nicotine Patch Removal NOTE FOLLOW UP SCH (21:42)
[2016-09-09] MEDS ORDERED: Insulin LISPRO* 1 UNITS UNIT SUBCUT ONE ×2 (01:07→05:19)
[2016-09-09] MEDS: Albuterol/Ipratropium NEB.SOL* Albuterol 2.5 MG/Ipratropium 0.5 MG 3 ML INH SCH ×4 (01:31→19:54)
[2016-09-09] MEDS: Insulin LISPRO* 1 UNITS UNIT SUBCUT SCH ×4 (01:57→12:13)
[2016-09-09] MEDS: Ondansetron INJ* 2 MG/ML VIAL IV SCH ×3 (03:27→12:05)
[2016-09-09] MEDS: HYDROmorphone* 2 MG/ML 1 ML SYR IV PRN ×2 (05:06→09:49)
[2016-09-09] MEDS: ZOSYN 3.375 GM Q12H per EXTENDED INFUSION IVPB SCH ×2 (05:07)
[2016-09-09 08:05] LABS: Hematocrit 38 % (35-47); Hemoglobin 11.9 g/dl (12.0-16.0); Mean Corpuscular HGB Conc 31 g/dl (31-36); Mean Corpuscular Hemoglobin 30 pg (27-31); Mean Corpuscular Volume 96 fL (80-97); Mean Platelet Volume 9 um3 (7.4-10.4); Red Blood Count 3.96 10^6/ul (4.0-5.4); Red Cell Distribution Width 17 % (10.5-15); White Blood Count 10.3 10^3/ul (3.5-10.8)
[2016-09-09 08:18] LABS: Vancomycin Random 16.5 mcg/mL
[2016-09-09 08:19] LABS: BUN/Creatinine Ratio 8.5 (8-20); C Reactive Protein 20.06 mg/L (< 5.00); Calcium 8.2 mg/dL (8.6-10.3); EGFR Non-African American 9.3 (>60); Potassium 4.3 mmol/L (3.5-5.0)
[2016-09-09] MEDS: Aspirin Low Dose CHEW TAB* 81 MG PO SCH (09:04)
[2016-09-09] MEDS: Gabapentin CAP(*) 300 MG PO SCH ×2 (09:04→13:22)
[2016-09-09] MEDS: Insulin GLARGINE(*) 1 UNITS UNIT SUBCUT SCH (09:04)
[2016-09-09] MEDS: Mometasone/Formoter 200/5 MDI INH SCH ×2 (09:07→20:11)
[2016-09-09] MEDS: Lactobacillus Acidophilu (GG)* 1 CAP CAP PO SCH (09:07)
[2016-09-09] MEDS: Mupirocin 2% OINT* TUBE TOPICAL SCH (09:55)
[2016-09-09] MEDS ORDERED: HYDROmorphone* 1 MG/ML 1 ML SYR IV PRN (10:07)
--- NOTE | 2016-09-09 11:17 | PN ---
Progress Note - Progress Note Date of Service: 09/09/16 SOAP: Subjective: Pt states that she has pain in her foot. Dilaudid helps the pain. She denies CP, SOB, F/C or calf pain. Objective: 36 y/o WDWN F NAD A&O x 3 RLE- dressing changed, wound dehiscence over lateral aspect of incision, minimal erythema, +DF/PF, calf soft NT, +1 DP pulse, sensation intact Vital Signs Temp Pulse Resp BP Pulse Ox 100.0 F 93 18 121/49 93 09/09/16 08:10 09/09/16 08:10 09/09/16 09:49 09/09/16 08:10 09/09/16 08:10 Laboratory Results - last 24 hr 09/08/16 09/08/16 09/08/16 11:52 17:23 20:58 WBC RBC Hgb Hct MCV MCH MCHC RDW Plt Count MPV Neut % (Auto) Lymph % (Auto) [place] % (Auto) Eos % (Auto) Baso % (Auto) Absolute Neuts (auto) Absolute Lymphs (auto) Absolute Monos (auto) Absolute Eos (auto) Absolute Basos (auto) Absolute Nucleated RBC Nucleated RBC % INR (Anticoag Therapy) Sodium Potassium Chloride Carbon Dioxide Anion Gap BUN Creatinine Est GFR ( Amer) Est GFR (Non-Af Amer) BUN/Creatinine Ratio Glucose POC Glucose (mg/dL) 143 H 205 H 321 H Calcium C-Reactive Protein Random Vancomycin 09/09/16 09/09/16 09/09/16 00:56 04:55 07:22 WBC RBC Hgb Hct MCV MCH MCHC RDW Plt Count MPV Neut % (Auto) Lymph % (Auto) [place] % (Auto) Eos % (Auto) Baso % (Auto) Absolute Neuts (auto) Absolute Lymphs (auto) Absolute Monos (auto) Absolute Eos (auto) Absolute Basos (auto) Absolute Nucleated RBC Nucleated RBC % INR (Anticoag Therapy) 0.91 Sodium Potassium Chloride Carbon Dioxide Anion Gap BUN Creatinine Est GFR ( Amer) Est GFR (Non-Af Amer) BUN/Creatinine Ratio Glucose POC Glucose (mg/dL) 404 H* 438 H* Calcium C-Reactive Protein Random Vancomycin 09/09/16 09/09/16 07:22 07:22 WBC 10.3 RBC 3.96 L Hgb 11.9 L Hct 38 MCV 96 MCH 30 MCHC 31 RDW 17 H Plt Count 272 MPV 9 Neut % (Auto) 80.4 Lymph % (Auto) 12.0 L [place] % (Auto) 4.2 Eos % (Auto) 2.4 Baso % (Auto) 1.0 Absolute Neuts (auto) 8.3 H Absolute Lymphs (auto) 1.2 Absolute Monos (auto) 0.4 Absolute Eos (auto) 0.2 Absolute Basos (auto) 0.1 Absolute Nucleated RBC 0.03 Nucleated RBC % 0.3 INR (Anticoag Therapy) Sodium 136 Potassium 4.3 Chloride 103 Carbon Dioxide 25 Anion Gap 8 BUN 44 H Creatinine 5.18 H Est GFR ( Amer) 12.0 Est GFR (Non-Af Amer) 9.3 BUN/Creatinine Ratio 8.5 Glucose 412 H POC Glucose (mg/dL) Calcium 8.2 L C-Reactive Protein 20.06 H Random Vancomycin 16.5 Assessment: 36 y/o female s/p right transmetatarsal amuptation 07/18/[address] Garcia, admitted 09/06 for wound dehiscence, poor healing Plan: - NWB RLE - IV Zosyn per ID, C&S pending - cont wet to dry betadine dressings bid - Dr. Baker saw patient and [facility] and NPO after midnight for possible TMA revision on 09/[address] Garcia
[2016-09-09] MEDS: Nicotine PATCH 21 MG/24 HR* PATCH TRANSDERM SCH (12:02)
[2016-09-09] MEDS ORDERED: HYDROmorphone TAB* 4 MG PO PRN (13:07)
[2016-09-09] MEDS: oxyCODONE TAB* 5 MG TAB PO PRN (13:22)
[2016-09-09 13:24] VITALS: BP 135/74
[2016-09-09] MEDS ORDERED: fentaNYL PATCH 50 MCG/HR TRANSDERM SCH (14:00)
--- NOTE | 2016-09-09 15:54 | PN ---
Hospitalist Progress Note Glycemic control somewhat improved overnight last night. Reviewed overnight vitals and labs, no significant changes noted. IV access was lost earlier today and despite multiple attempts to gain access, none were successful. This prevented the patient from receiving IV opiates. Despite strategies to utilize oral equivalents, patient was became quite inflamed and eventually left the unit AMA. Vital Signs: Temp Pulse Resp BP Pulse Ox 98.0 F 95 16 135/74 95 09/09/16 11:43 09/09/16 11:43 09/09/16 13:22 09/09/16 11:43 09/09/16 11:43 Laboratory Results - last 24 hr 09/08/16 09/08/16 09/09/16 17:23 20:58 00:56 WBC RBC Hgb Hct MCV MCH MCHC RDW Plt Count MPV Neut % (Auto) Lymph % (Auto) [place] % (Auto) Eos % (Auto) Baso % (Auto) Absolute Neuts (auto) Absolute Lymphs (auto) Absolute Monos (auto) Absolute Eos (auto) Absolute Basos (auto) Absolute Nucleated RBC Nucleated RBC % INR (Anticoag Therapy) Sodium Potassium Chloride Carbon Dioxide Anion Gap BUN Creatinine Est GFR ( Amer) Est GFR (Non-Af Amer) BUN/Creatinine Ratio Glucose POC Glucose (mg/dL) 205 H 321 H 404 H* Calcium C-Reactive Protein Random Vancomycin 09/09/16 09/09/16 09/09/16 04:55 07:22 07:22 WBC RBC Hgb Hct MCV MCH MCHC RDW Plt Count MPV Neut % (Auto) Lymph % (Auto) [place] % (Auto) Eos % (Auto) Baso % (Auto) Absolute Neuts (auto) Absolute Lymphs (auto) Absolute Monos (auto) Absolute Eos (auto) Absolute Basos (auto) Absolute Nucleated RBC Nucleated RBC % INR (Anticoag Therapy) 0.91 Sodium 136 Potassium 4.3 Chloride 103 Carbon Dioxide 25 Anion Gap 8 BUN 44 H Creatinine 5.18 H Est GFR ( Amer) 12.0 Est GFR (Non-Af Amer) 9.3 BUN/Creatinine Ratio 8.5 Glucose 412 H POC Glucose (mg/dL) 438 H* Calcium 8.2 L C-Reactive Protein 20.06 H Random Vancomycin 16.5 09/09/16 09/09/16 07:22 11:56 WBC 10.3 RBC 3.96 L Hgb 11.9 L Hct 38 MCV 96 MCH 30 MCHC 31 RDW 17 H Plt Count 272 MPV 9 Neut % (Auto) 80.4 Lymph % (Auto) 12.0 L [place] % (Auto) 4.2 Eos % (Auto) 2.4 Baso % (Auto) 1.0 Absolute Neuts (auto) 8.3 H Absolute Lymphs (auto) 1.2 Absolute Monos (auto) 0.4 Absolute Eos (auto) 0.2 Absolute Basos (auto) 0.1 Absolute Nucleated RBC 0.03 Nucleated RBC % 0.3 INR (Anticoag Therapy) Sodium Potassium Chloride Carbon Dioxide Anion Gap BUN Creatinine Est GFR ( Amer) Est GFR (Non-Af Amer) BUN/Creatinine Ratio Glucose POC Glucose (mg/dL) 275 H Calcium C-Reactive Protein Random Vancomycin
[2016-09-09] MEDS ORDERED: fentaNYL Patch Check Q Shift 1 NOTE SCH (19:00)
[2016-09-09] MEDS ORDERED: Insulin REGULAR(*) 1 UNITS UNIT SUBCUT SCH (21:00)
[2016-09-10] MEDS ORDERED: NS 0.9% 1000 ML* 1,000 ML IV SCH (09:00)
[2016-09-10] MEDS ORDERED: Famotidine IV* 10 MG/ML 2 ML (20 mg) IV ONE (09:00)
[2016-09-10] MEDS ORDERED: Insulin GLARGINE(*) 1 UNITS UNIT SUBCUT ONE (09:00)
[2016-09-10] MEDS ORDERED: Warfarin TAB(*) 5 MG PO SCH (17:00)
== END 2016-09-09 14:10 | disposition left against medical advice (07) | DRG 349 ==
LOC: SSU 11:27 → ICU 21:21 → SSU 09-07 12:23
PROVIDERS: ADMIT Orthopaedic Surgery; ATTEND Orthopaedic Surgery Hand Surgery
PROC: 3E1M39Z Irrigation of Peritoneal Cavity using Dialysate, Percutaneous Approach (ICD-10-PCS; principal; 2016-09-06)
DX: T87.81 Dehiscence of amputation stump (principal); N18.6 End stage renal disease; E11.22 Type 2 diabetes mellitus with diabetic chronic kidney disease; C43.9 Malignant melanoma of skin, unspecified; I12.0 Hypertensive chronic kidney disease with stage 5 chronic kidney disease or end stage renal disease; E11.40 Type 2 diabetes mellitus with diabetic neuropathy, unspecified; B99.9 Unspecified infectious disease; T81.4XXA Infection following a procedure, initial encounter; E11.51 Type 2 diabetes mellitus with diabetic peripheral angiopathy without gangrene; K21.9 Gastro-esophageal reflux disease without esophagitis; E78.5 Hyperlipidemia, unspecified; F32.9 Major depressive disorder, single episode, unspecified; F41.9 Anxiety disorder, unspecified; F17.210 Nicotine dependence, cigarettes, uncomplicated; Z79.82 Long term (current) use of aspirin; Z99.2 Dependence on renal dialysis; Z79.4 Long term (current) use of insulin; Z79.899 Other long term (current) drug therapy; Z88.1 Allergy status to other antibiotic agents; Z88.5 Allergy status to narcotic agent; Z88.8 Allergy status to other drugs, medicaments and biological substances; Z91.048 Other nonmedicinal substance allergy status; Z83.3 Family history of diabetes mellitus; Z89.431 Acquired absence of right foot; E66.9 Obesity, unspecified; Z68.34 Body mass index [BMI] 34.0-34.9, adult; Z79.01 Long term (current) use of anticoagulants; X58.XXXA Exposure to other specified factors, initial encounter
CPT/HCPCS: 36415; 71010; 80048; 80202; 82947; 85025; 85610; 85652; 86140; 87040; 87070; 87205; 87493; 87640; 87641; 94640; 94760; 99406; A9270-GY; J1170; J2405; J2543; J3370

== ENCOUNTER 2016-09-09 17:00 | Observation (INO) | payer OTHER ==
--- NOTE | 2016-09-09 20:00 | CONS ---
CC: Wound Clinic in [place] * INTERVENTIONAL CARDIOLOGY CONSULT: DATE OF CONSULT: 09/09/16 PRIMARY CARE PHYSICIAN: Dr. Solis. FOOT SURGEON: Dr. Garcia. HISTORY OF PRESENT ILLNESS: A 36-year-old type 1 diabetic with 2 vessel coronary disease by prior cath being treated medically, and PAD. She had vascular studies in April with a right WILLIAM of 0.56 with monophasic signals at the ankle, left of 0.56. She had a remote right big toe amputation, 2015. She has had CLI of the right forefoot. In April of this year, she had a CTA, which reported possible fibromuscular dysplasia of both renal arteries, a right SFA 6 to 7 cm GRANTS ANALYST followed by a stenosis and 2-vessel runoff, a left profunda occlusion and distal SFA stenosis, and occlusion of the posterior tibial. She developed gangrene of the second right and third toes, on 07/16/16, underwent transmetatarsal amputation by Dr. Garcia for right forefoot osteomyelitis. She is now readmitted because of failure to heal of the incision site. She reports nighttime pain as well as neuropathic pain. Vascular risk factors include diabetes type 1, continued smoking, hypertension and hyperlipidemia. By history, she had an angiogram at [facility] in June, and had a left common femoral retrograde access crossover procedure with stent placement in the right lower extremity, by description one stent in the popliteal, one in the SFA. We do not have records of that procedure. PAST MEDICAL HISTORY: 1. CKD stage 5, on peritoneal dialysis. 2. Diabetes type 2 with gastroparesis. 3. Morbid obesity. 4. Hypertension. 5. Hyperlipidemia. 6. Coronary artery disease. She had a catheterization in [place], 05/03/16, by report in system revealed codominant RCA, which was occluded and collateralized , and distal circumflex, which was diseased, but too small for intervention. Coronary artery disease is being treated medically. SOCIAL HISTORY: She is a smoker. FAMILY HISTORY: Positive for diabetes. MEDICATIONS: Home meds: 1. Zebeta. 2. Aspirin 81 daily. 3. Bronchodilators. 4. Insulin. 5. Neurontin. 6. Lipitor 80 daily. 7. Norvasc 10 daily. 8. Zofran. 9. Prilosec. 10. Reglan. 11. Losartan. 12. Levaquin. 13. Imdur. ALLERGIES: AUGMENTIN, CODEINE, HEPARIN, FLAGYL, MORPHINE, REQUIP, BACTRIM, ERYTHROMYCIN, NIACIN, and PLASTIC TAPE. PHYSICAL EXAM: She is morbidly obese, currently having peritoneal dialysis. Her most recent BP 121/49, heart rate in the 90s, she is obese. She has no abdominal bruit, her femoral pulses are palpable, but very faint. I cannot feel popliteal or pedal pulses. Her right foot is dressed, I did not unwrap it. She does not have edema. DIAGNOSTIC STUDIES/LAB DATA: Her white count yesterday was normal, hemoglobin was 11.9. Sed rate is high at 48. Chemistry panel on the included creatinine of 5.18, BUN 44, blood sugar of 412. Her CRP is 20. Her Accu-Cheks have ranged from 100 to 400. IMPRESSION: 1. Critical limb ischemia, right transmetatarsal amputation site. She is failing to heal. Per history, she has had revascularization of the right SFA and popliteal, which were described occluded on the CTA in in April. That CTA suggested 2-vessel runoff. I will request CD of her angiogram from [facility] and reports to sort out what her below knee anatomy is and whether there is any need for further below-knee revascularization to facilitate healing of the transmetatarsal amputation site. She is already on high dose statin, aspirin, antibiotics. I note she is also on Coumadin. 2. "Heparin allergy", is a potential complicating issue if true, evaluation by Hematology would be help[ful. I will follow with you as needed. Thank you for the consultation. [id number]/[facility] #: [id number] VIRI
[2016-09-09 20:08] LABS: Hematocrit 38 % (35-47); Hemoglobin 12.2 g/dl (12.0-16.0); Mean Corpuscular HGB Conc 32 g/dl (31-36); Mean Corpuscular Hemoglobin 30 pg (27-31); Mean Corpuscular Volume 95 fL (80-97); Mean Platelet Volume 9 um3 (7.4-10.4); Red Blood Count 4.04 10^6/ul (4.0-5.4); Red Cell Distribution Width 17 % (10.5-15); White Blood Count 11.4 10^3/ul (3.5-10.8)
--- NOTE | 2016-09-09 20:16 | ED ---
Omid Palacio Rebecca, scribed for Leonard Sanchez MD on 09/09/16 at 1916 . Lower Extremity - HPI Summary HPI Summary: Pt is a 36 y/o F who presents to ED c/o worsening R foot pain. She presents s/p surgical treatment of osteomyelitis to the R foot in late June and has an additional surgery scheduled tomorrow to clean out the wound. Earlier today, at 1400, she left the hospital AMA after the 3rd floor nurses were unable to insert an IV. States that Dilaudid and IV Abx are the only treatments that ease the pain, she was unable to get them without an IV, which is why she left. Pain began after initial surgery and has been constant since onset. States that pain is worse tonight, which is why she returned. Currently, pain is severe, ranked 9 /10 and discrete to the R foot. Sx aggravated by nothing, alleviated by Dilaudid and IV Abx. Denies any other complaints at this time, including fever. - History of Current Complaint Chief Complaint: EDExtreKelli Stated Complaint: RIGHT FOOT PAIN Time Seen by Provider: 09/09/16 19:13 Hx Obtained From: Patient Hx Last Menstrual Period: 07/06/16 Onset of Pain: Prior to Arrival - Late June s/p surgery Onset/Duration: Worse Since - Tonight Severity Currently: Severe Pain Intensity: 9 Pain Scale Used: 0-10 Numeric Timing: Constant Location: Is Discrete @ - R foot Associated Signs And Symptoms: Positive: Negative. Negative: Fever Aggravating Factor(s): Nothing Alleviating Factor(s): Other - Dilaudid and IV Abx - Allergies/Home Medications Allergies/Adverse Reactions: Allergies Allergy/AdvReac Type Severity Reaction Status Date / Time Amoxicillin [From Augmentin] Allergy See Comment Verified 09/09/16 17:10 Clavulanic Acid Allergy See Comment Verified 09/09/16 17:10 [From Augmentin] Heparin Allergy See Comment Verified 09/09/16 17:10 Metronidazole [From Flagyl] Allergy Nausea And Verified 09/09/16 17:10 Vomiting Morphine Allergy See Comment Verified 09/09/16 17:10 Ropinirole [From Requip] Allergy Hives Verified 09/09/16 17:10 Sulfamethoxazole Allergy Nausea And Verified 09/09/16 17:10 w/Trimethoprim Vomiting [From Bactrim] Codeine AdvReac Nausea And Verified 09/09/16 17:10 Vomiting Erythromycin AdvReac "DOESN'T Verified 09/09/16 17:10 WORK" Niacin AdvReac Hives Verified 09/09/16 17:10 plastic tape Allergy Blisters Uncoded 09/09/16 17:10 PMH/Surg Hx/FS Hx/Imm Hx Endocrine/Hematology History: Reports: Hx Anticoagulant Therapy - Aspirin., Hx Blood Transfusions, Hx Diabetes, Hx Thyroid Disease - nodule biopsied, normal, Hx Anemia - hx of - reports had tranfusion in 2013 after mi Cardiovascular History: Reports: Hx Angina, Hx Cardiac Arrest - in 2013 with CPR, Hx Cardiomegaly, Hx Coronary Artery Disease, Hx Hypercholesterolemia, Hx Hypertension - on med, Hx Myocardial Infarction, Other Cardiovascular Problems/Disorders - hyperlipidemia, CAD Denies: Hx Congestive Heart Failure, Hx Deep Vein Thrombosis, Hx Pacemaker/ ICD, Hx Valvular Heart Disease Respiratory History: Reports: Hx Asthma - inhaler, Hx Chronic Obstructive Pulmonary Disease (COPD) - smoker, Hx Sleep Apnea - pt reports thinks, but no official testing done yet, Other Respiratory Problems/Disorders - acute respipatory failure with hypoxia - jan 2016 Denies: Hx Lung Cancer, Hx Pneumonia, Hx Pulmonary Embolism GI History: Reports: Hx Gastroesophageal Reflux Disease - on med, Other GI Disorders - GASTROPARESIS - TAKING OMEPRAZOLE Denies: Hx Gall Bladder Disease, Hx Gastrointestinal Bleed, Hx Ulcer, Hx Urosepsis History: Reports: Hx Acute Renal Failure, Hx Chronic Renal Failure, Hx Dialysis - PERITONEAL BUT DOES HAVE FISTULA ON LEFT ARM, Hx Kidney Stones - in past, Hx Renal Disease - ESRD on home peritoneal dialysis , Other Problems/ Disorders - ESRD- URINATES A SMALL AMOUNT Musculoskeletal History: Reports: Hx Arthritis - back, hips, Hx Back Problems - Sciatica and Herniated L3 disk Sensory History: Reports: Hx Eye Prosthesis - left, 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, Hx Vision Problem Denies: Hx Contacts or Glasses, Hx Hearing Aid Opthamlomology History: Reports: Hx Eye Prosthesis - left, 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 MELANOMA REMOVED FROM [facility] 2012 (PROCEDURE DONE 4X);. CARDIAC CATH 2013 - NO STENTS;. LEFT WRIST FISTULA PLACEMENT ([facility]) 2013;. HEMODIALYSIS CATH RIGHT CHEST WALL 2013;. PERITONEAL DIALYSIS CATH 03/2014;. CHEST WALL CATH REMOVAL 08/2015 [facility] [place];. RIGHT GREAT TOE AMPUTATION, [facility] 05/2015;. PLACEMENT RIGHT JUGULAR TESIO HEMODIALYSIS CATHETER [facility] [place] 10/22/2015;. REMOVAL OF JUGULAR CATH - OCT 2015. CARDIAC CATH - stentsx2 right leg Hx Anesthesia Reactions: No - Immunization History Date of Tetanus Vaccine: UTD Date of Influenza Vaccine: 10/10/15 Infectious Disease History: Reports: Hx of Known/Suspected MRSA - MRSA R 1st toe Denies: Hx Clostridium Difficile, Hx Hepatitis, Hx Human Immunodeficiency Virus (HIV), Hx Shingles, Hx Tuberculosis, History Other Infectious Disease, Traveled Outside the [place] in Last 30 Days - Family History Known Family History: Positive: Cardiac Disease - father [place] at 42 y/o, Hypertension - Social History Alcohol Use: None Hx Substance Use: No Substance Use Type: Reports: None Substance Use Comment - Amount & Last Used: using chantix to quit smoking Hx Tobacco Use: Yes Smoking Status (MU): Current Every Day Smoker Type: Cigarettes Amount Used/How Often: 5 ciagrettes/day Length of Time of Smoking/Using Tobacco: 20 YEARS Have You Smoked in the Last Year: Yes Review of Systems Negative: Fever Positive: Arthralgia - R foot pain s/p surgery in June All Other Systems Reviewed And Are Negative: Yes Physical Exam Triage Information Reviewed: Yes Vital Signs On Initial Exam: Initial Vitals Temp Pulse Resp BP Pulse Ox 97.8 F 94 16 131/86 94 09/09/16 17:11 09/09/16 17:11 09/09/16 17:11 09/09/16 17:11 09/09/16 17:11 Vital Signs Reviewed: Yes Appearance: Positive: Pain Distress - mild discomfort, Obese Skin: Positive: Warm Head/Face: Positive: Normal Head/Face Inspection Eyes: Positive: HILLARY ENT: Positive: Hearing grossly normal Neck: Positive: Supple Respiratory/Lung Sounds: Positive: Breath Sounds Present Musculoskeletal: Positive: Other - s/p transmetaytarsal amp with mild purulent oozing from foot Neurological: Positive: Alert, Oriented to Person Place, Time - [place] Coma Scale Coma Scale Total: 15 Diagnostics - Vital Signs Vital Signs Temp Pulse Resp BP Pulse Ox 09/09/16 18:59 97.9 F 93 18 144/76 94 09/09/16 17:11 97.8 F 94 16 131/86 94 - Laboratory Lab Results: Lab Results 09/09/16 09/09/16 Range/Units 19:59 19:59 WBC 11.4 H (3.5-10.8) 10^3/ul RBC 4.04 (4.0-5.4) 10^6/ul Hgb 12.2 (12.0-16.0) g/dl Hct 38 (35-47) % MCV 95 (80-97) fL MCH 30 (27-31) pg MCHC 32 (31-36) g/dl RDW 17 H (10.5-15) % Plt Count 261 (150-450) 10^3/ul MPV 9 (7.4-10.4) um3 Neut % (Auto) 77.8 (38-83) % Lymph % (Auto) 13.2 L (25-47) % [place] % (Auto) 5.1 (1-9) % Eos % (Auto) 2.3 (0-6) % Baso % (Auto) 1.6 (0-2) % Absolute Neuts (auto) 8.9 H (1.5-7.7) 10^3/ul Absolute Lymphs (auto) 1.5 (1.0-4.8) 10^3/ul Absolute Monos (auto) 0.6 (0-0.8) 10^3/ul Absolute Eos (auto) 0.3 (0-0.6) 10^3/ul Absolute Basos (auto) 0.2 (0-0.2) 10^3/ul Absolute Nucleated RBC 0.02 10^3/ul Nucleated RBC % 0.1 INR (Anticoag Therapy) 0.98 (0.89-1.11) Result Diagrams: 09/09/16 19:59 07/16/17 19:59 Lab Statement: Any lab studies that have been ordered have been reviewed, and results considered in the medical decision making process. Lower Extremity Course/Dx - Course Assessment/Plan: Pt is a 36 y/o F who presents to ED c/o worsening R foot pain. She presents s/p surgical treatment of osteomyelitis to the R foot in late June and has an additional surgery scheduled tomorrow to clean out the wound. Earlier today, at 1400, she left the hospital AMA after the 3rd floor nurses were unable to insert an IV. Pain began after initial surgery and has been constant since onset, worse tonight. Currently, pain is severe, ranked 9/10 and discrete to the R foot. Sx aggravated by nothing, alleviated by Dilaudid and IV Abx. Denies any other complaints at this time, including fever. WBC of 11.4. Discussed care of pt with Dr. Sebastien Garcia, who reports he will readmit her. Discussed care of pt with Dr. Garcia again who reported that his PA will be entering admisison orders. Pt will be admitted with Dx of osteomyelitis. She understands and agrees. Patient's medications reviewed this visit. - Diagnoses Provider Diagnoses: Osteomyelitis - Physician Notifications Discussed Care Of Patient With: Sebastien Garcia Time Discussed With Above Provider: 19:22 Instructed by Provider To: Admit As Observation - Discussed the case with the doctor who reports he will readmit her. Discussed care of pt with Dr. Garcia again at 1940 who reported that his PA will be entering admisison orders. Discharge - Discharge Plan Condition: Fair Disposition: ADMITTED TO [facility] The documentation as recorded by the Omid sexton Rebecca accurately reflects the service I personally performed and the decisions made by me, Leonard Sanchez MD.
[2016-09-09] MEDS ORDERED: Acetaminophen TAB* 325 MG PO PRN (20:22)
[2016-09-09 20:23] LABS: BUN/Creatinine Ratio 8.3 (8-20); Calcium 8.6 mg/dL (8.6-10.3); EGFR African American 11.1 (>60); EGFR Non-African American 8.7 (>60); Potassium 4.7 mmol/L (3.5-5.0)
[2016-09-09] MEDS ORDERED: Albuterol 2.5 MG/3 ML NEB.SOL* (0.083%) INH PRN (20:23)
[2016-09-09] MEDS ORDERED: Dextrose 50% Syringe 50 ML* 25 GM/50 ML SYRINGE IV PUSH PRN (20:24)
[2016-09-09] MEDS ORDERED: HYDROmorphone* 1 MG/ML 1 ML SYR IV SLOW PU PRN (20:25)
[2016-09-09] MEDS ORDERED: Metoclopramide TAB* 10 MG PO PRN (20:31)
[2016-09-09] MEDS ORDERED: Ondansetron INJ* 2 MG/ML VIAL IV PRN (20:35)
[2016-09-09] MEDS ORDERED: Lactobacillus Acidophilu (GG)* 1 CAP CAP PO SCH (21:00)
[2016-09-09] MEDS ORDERED: Albuterol/Ipratropium NEB.SOL* Albuterol 2.5 MG/Ipratropium 0.5 MG 3 ML INH SCH (21:00)
[2016-09-09] MEDS ORDERED: Zosyn per Pharmacy* NOTE FOLLOW UP SCH ×2 (21:00→23:00)
[2016-09-09] MEDS ORDERED: Insulin GLARGINE(*) 1 UNITS UNIT SUBCUT SCH (21:00)
[2016-09-09] MEDS ORDERED: Mometasone/Formoter 200/5 MDI INH SCH (21:00)
[2016-09-09] MEDS ORDERED: Gabapentin CAP(*) 300 MG PO SCH (21:00)
[2016-09-09] MEDS ORDERED: oxyCODONE TAB* 5 MG TAB PO SCH (22:00)
[2016-09-09] MEDS ORDERED: ZOSYN 3.375 GM x ONE DOSE over 30 miuntes IVPB ×2 (22:00)
[2016-09-09 23:43] VITALS: BP 162/100
[2016-09-10] MEDS ORDERED: Omeprazole CAP* 20 MG PO SCH ×2 (07:30→18:00)
[2016-09-10] MEDS ORDERED: Nicotine PATCH 21 MG/24 HR* PATCH TRANSDERM SCH (09:00)
[2016-09-10] MEDS ORDERED: NS 0.9% 1000 ML* 1,000 ML IV SCH (09:00)
[2016-09-10] MEDS ORDERED: Famotidine IV* 10 MG/ML 2 ML (20 mg) IV SLOW PU ONE (09:00)
[2016-09-10] MEDS ORDERED: Aspirin Low Dose CHEW TAB* 81 MG PO SCH (09:00)
[2016-09-10] MEDS ORDERED: Mupirocin 2% OINT* TUBE TOPICAL SCH (09:00)
[2016-09-10] MEDS ORDERED: Insulin GLARGINE(*) 1 UNITS UNIT SUBCUT ONE (09:00)
[2016-09-10] MEDS ORDERED: Bisoprolol TAB* 5 MG PO SCH (18:00)
[2016-09-10] MEDS ORDERED: Atorvastatin* 80 MG TAB PO SCH (18:00)
[2016-09-10] MEDS ORDERED: Losartan TAB* 25 MG PO SCH (18:00)
[2016-09-10] MEDS ORDERED: Isosorbide Mononitrate ER TAB* 60 MG PO SCH (18:00)
[2016-09-10] MEDS ORDERED: amLODIPine TAB* 5 MG PO SCH (18:00)
[2016-09-10] MEDS ORDERED: Nicotine Patch Removal NOTE PATCH OFF SCH (21:00)
--- NOTE | 2016-09-11 10:13 | HP ---
Amended report to enter co-signer on report. HISTORY AND PHYSICAL: DATE OF ADMISSION: 09/09/16 ATTENDING SURGEON: Dr. Sebastien Garcia* (dictated by GIOVANNI Obregon). Date the patient left AMA was 09/09/16. HISTORY OF PRESENT ILLNESS: Ms. Wright is a 36-year-old female who presented to the ER for right foot transmetatarsal amputation wound dehiscence. She was admitted to the floor on 09/06/16. On 09/09/16, she left AMA due to lack of IV access. She was readmitted on 09/09/16 and then 2 hours later after readmission she left AMA. Again, there are no changes from the prior history and physical performed on . Medications, allergies, past medical history, review of systems and physical exam remained the same. ASSESSMENT AND PLAN: Ms. Damico is a 36-year-old female who presents to the clinical for a right transmetatarsal amputation wound dehiscence. She left AMA. Therefore no further care was able to be provided. GIOVANNI OBREGON [id number]/[facility] #: [id number]
== END 2016-09-09 23:40 | disposition left against medical advice (07) ==
LOC: ED 17:00 → SSU 20:29 → INTOOBSV 20:29 → UNDODISOB 23:40
PROVIDERS: ADMIT Orthopaedic Surgery; ATTEND Orthopaedic Surgery
DX: T87.81 Dehiscence of amputation stump (principal); Y83.5 Amputation of limb(s) as the cause of abnormal reaction of the patient, or of later complication, without mention of misadventure at the time of the procedure; Y92.9 Unspecified place or not applicable; M86.9 Osteomyelitis, unspecified; I99.8 Other disorder of circulatory system; I25.119 Atherosclerotic heart disease of native coronary artery with unspecified angina pectoris; I12.9 Hypertensive chronic kidney disease with stage 1 through stage 4 chronic kidney disease, or unspecified chronic kidney disease; N18.9 Chronic kidney disease, unspecified; Z99.2 Dependence on renal dialysis; I25.2 Old myocardial infarction; I51.7 Cardiomegaly; E78.00 Pure hypercholesterolemia, unspecified; E78.5 Hyperlipidemia, unspecified; J44.9 Chronic obstructive pulmonary disease, unspecified; K21.9 Gastro-esophageal reflux disease without esophagitis; E11.43 Type 2 diabetes mellitus with diabetic autonomic (poly)neuropathy; K31.84 Gastroparesis; F17.210 Nicotine dependence, cigarettes, uncomplicated; Z88.5 Allergy status to narcotic agent; Z88.1 Allergy status to other antibiotic agents; Z88.8 Allergy status to other drugs, medicaments and biological substances; Z88.0 Allergy status to penicillin; E66.01 Morbid (severe) obesity due to excess calories; Z79.4 Long term (current) use of insulin
CPT/HCPCS: 36415; 80048; 85025; 85610; 99282; 99406; A9270-GY; G0378; J1170; J2405; J2543

== ENCOUNTER 2016-09-16 16:04 | Emergency (ER) | payer OTHER ==
[2016-09-16 16:12] VITALS: BP 154/100
--- NOTE | 2016-09-16 16:48 | UC ---
Lower Extremity/Ankle HPI - HPI Summary HPI Summary: OVER 6 MONTHS OF RIGHT FOOT PAIN. HAS H/O DIABETES AND HAD TOES AMPUTATED 2016. SHE REPORTS INTRACTABLE PAIN. HAS HAD DILAUDID, PERCOCET WITH NO RELIEF. TOOK 6 OTC ALEVE TODAY AROUND NOON WITHOUT RELIEF. PAIN HAS WORSENED OVER LAST 3 DAYS. NO NEW INJURY. STATES THAT LAST NIGHT HER BF HAD TO WRESTLE A KNIFE OUT OF HER HANDS BECAUSE SHE WAS EITHER GOING TO SLIT HER WRISTS OR CUT HER FOOT OFF. SHE STATES THE PAIN IS SO SEVERE SHE IS AT THE POINT OF WANTING TO KILL HERSELF BECAUSE SHE CAN'T TAKE IT ANYMORE. - History of Current Complaint Chief Complaint: UCLowerExtremity Stated Complaint: FOOT PAIN Time Seen by Provider: 09/16/16 16:13 Hx Obtained From: Patient, Family/Manager [employer] - BOYFRIEND Hx Last Menstrual Period: NOW Onset/Duration: Gradual Onset, Lasting Weeks, Still Present Severity Initially: Moderate Severity Currently: Severe Pain Intensity: 9 Pain Scale Used: 0-10 Numeric Aggravating Factor(s): Nothing Alleviating Factor(s): Nothing Able to Bear Weight: Yes - Allergies/Home Medications Allergies/Adverse Reactions: Allergies Allergy/AdvReac Type Severity Reaction Status Date / Time Amoxicillin [From Augmentin] Allergy See Comment Verified 09/16/16 16:13 Clavulanic Acid Allergy See Comment Verified 09/16/16 16:13 [From Augmentin] Heparin Allergy See Comment Verified 09/16/16 16:13 Metronidazole [From Flagyl] Allergy Nausea And Verified 09/16/16 16:13 Vomiting Morphine Allergy See Comment Verified 09/16/16 16:13 Ropinirole [From Requip] Allergy Hives Verified 09/16/16 16:13 Sulfamethoxazole Allergy Nausea And Verified 09/16/16 16:13 w/Trimethoprim Vomiting [From Bactrim] Codeine AdvReac Nausea And Verified 09/16/16 16:13 Vomiting Erythromycin AdvReac "DOESN'T Verified 09/16/16 16:13 WORK" Niacin AdvReac Hives Verified 09/16/16 16:13 plastic tape Allergy Blisters Uncoded 09/09/16 17:10 Home Medications: Home Medications Aleve* 6 tab PO PRN 09/16/16 [History] Warfarin TAB(*) [Coumadin TAB(*)] 2.5 mg PO DAILY 09/16/16 [History Confirmed ] PMH/Surg Hx/FS Hx/Imm Hx Endocrine History: Diabetes - KIDNEY FAILURE ON DIALYSIS Respiratory History: Asthma Psychological History: Anxiety, Depression Other History Of: Anticoagulant Therapy - Aspirin. Negative For: HIV, Hepatitis B, Hepatitis C - Surgical History Surgical History: Yes Surgery Procedure, Year, and Place: LEFT EYE REMOVED 2011 - HAS PROSTHETIC EYE ( ORBITS DONE 06/[address] LIGIA COY TO SCAN IN MRI) ;. MELANOMA REMOVED FROM [facility] 2012 (PROCEDURE DONE 4X);. CARDIAC CATH 2013 - NO STENTS;. LEFT WRIST FISTULA PLACEMENT ([facility]) 2013;. HEMODIALYSIS CATH RIGHT CHEST WALL 2013;. PERITONEAL DIALYSIS CATH 03/2014;. [place] [facility] [place] [facility] [place]. [place]AC[place] RIGHT JUGULAR TESIO HEMODIALYSIS CATHE[place] [facility] [place];. REMOVAL OF JUGULAR CATH - OCT 2015. CARDIAC CATH - stentsx2 right leg. PARTIAL AMPUTATION RIGHT TOES 06/2016 - Family History Known Family History: Positive: Cardiac Disease - father MD at 42 y/o, Hypertension - Social History Alcohol Use: None Substance Use Type: None Substance Use Comment - Amount & Last Used: using chantix to quit smoking Smoking Status (MU): Current Every Day Smoker Type: Cigarettes Amount Used/How Often: 1 PPD Length of Time of Smoking/Using Tobacco: 20 YEARS Have You Smoked in the Last Year: Yes Household Exposure Type: Cigarettes - Immunization History Most Recent Influenza Vaccination: Fall 2015 Most Recent Tetanus Shot: 2013 Most Recent Pneumonia Vaccination: per pt: sometime in 2013 Review of Systems Constitutional: Negative Respiratory: Negative Cardiovascular: Negative Gastrointestinal: Negative Musculoskeletal: Other: - RIGHT FOOT PAIN All Other Systems Reviewed And Are Negative: Yes Physical Exam Triage Information Reviewed: Yes Appearance: Well-Appearing, No Pain Distress, Well-Nourished Vital Signs: Initial Vital Signs Temp 96.9 F 09/16/16 16:07 Pulse 95 09/16/16 16:07 Resp 20 09/16/16 16:07 BP 154/100 09/16/16 16:07 Pulse Ox 96 09/16/16 16:07 Vital Signs Reviewed: Yes Eyes: Positive: Conjunctiva Clear ENT: Positive: Hearing grossly normal Neck: Positive: Supple Respiratory: Positive: No respiratory distress, No accessory muscle use Cardiovascular: Positive: Pulses Normal Abdomen Description: Positive: Soft Neurological: Positive: Alert Psychological: Positive: Other: - PT SEEMS ANGRY AND STATES SHE IS AT THE POINT OF HURTING HERSELF DUE TO HER PAIN. Lower Extremity Course/Dx - Course Course Of Treatment: PT WITH INTRACTABLE PAIN AND SUICIDAL IDEATION - [place] [facility] [place] - Differential Dx/Diagnosis Provider Diagnoses: 1. INTRACTABLE RIGHT FOOT PAIN. 2. SUICIDAL IDEATION - Physician Notifications Discussed Patient Care With: ROZINA BETH NURSE - [place] [facility] [place] - MENTAL HEALTH TRANSFER Time Discussed With Above Provider: 16:58 Instructed by Provider To: MD Will See In ED Discharge - Discharge Plan Condition: Stable Disposition: TRANS HIGHER LVL OF CARE FAC Referrals: Aishwarya Solis MD [Primary Care Provider] -
== END 2016-09-16 17:00 | disposition short-term general hospital (02) ==
LOC: UCEAST 16:04
DX: M25.571 Pain in right ankle and joints of right foot (principal); R45.851 Suicidal ideations; E11.22 Type 2 diabetes mellitus with diabetic chronic kidney disease; N18.6 End stage renal disease; J45.909 Unspecified asthma, uncomplicated; F41.9 Anxiety disorder, unspecified; F17.210 Nicotine dependence, cigarettes, uncomplicated; F32.9 Major depressive disorder, single episode, unspecified; Z99.2 Dependence on renal dialysis; Z88.3 Allergy status to other anti-infective agents; Z79.82 Long term (current) use of aspirin; Z88.5 Allergy status to narcotic agent; Z79.01 Long term (current) use of anticoagulants
CPT/HCPCS: 99213; G0463

== ENCOUNTER 2016-09-16 17:16 | Emergency (ER) | payer OTHER ==
[2016-09-16 18:41] LABS: Hematocrit 42 % (35-47); Hemoglobin 13.7 g/dl (12.0-16.0); Mean Corpuscular HGB Conc 33 g/dl (31-36); Mean Corpuscular Hemoglobin 30 pg (27-31); Mean Corpuscular Volume 93 fL (80-97); Mean Platelet Volume 9 um3 (7.4-10.4); Red Blood Count 4.51 10^6/ul (4.0-5.4); Red Cell Distribution Width 17 % (10.5-15); White Blood Count 8.6 10^3/ul (3.5-10.8)
[2016-09-16 18:55] LABS: ALT 8 U/L (7-52); AST 7 U/L (13-39); Albumin 3.2 g/dL (3.2-5.2); Alkaline Phosphatase 95 U/L (34-104); Anion Gap 11 mmol/L (2-11); BUN/Creatinine Ratio 9.6 (8-20); Blood Urea Nitrogen 46 mg/dL (6-24); CO2 Carbon Dioxide 24 mmol/L (22-32); Chloride 95 mmol/L (101-111); Creatine Kinase 168 U/L (10-223); EGFR African American 13.1 (>60); EGFR Non-African American 10.2 (>60); Globulin 3.3 g/dL (2-4); Glucose 433 mg/dL (70-100); Potassium 5.3 mmol/L (3.5-5.0); Sodium 130 mmol/L (133-145); Total Protein 6.5 g/dL (6.4-8.9)
[2016-09-16 19:00] LABS: Acetaminophen < 15 mcg/mL; Alcohol < 10 mg/dL (<10); Salicylate < 2.50 mg/dL (<30)
[2016-09-16 19:10] LABS: TSH (Thyroid Stimulating Horm) 1.25 mcIU/mL (0.34-5.60)
[2016-09-16] MEDS ORDERED: Insulin REGULAR(*) 1 UNITS UNIT IV PUSH ONE (19:25)
[2016-09-16] MEDS: NS 0.9% 1000 ML* 2,000 ML IV ONE ×2 (19:35→19:40)
[2016-09-16] MEDS ORDERED: HYDROmorphone* 1 MG/ML 1 ML SYR IV SLOW PU ONE (19:48)
[2016-09-16] MEDS ORDERED: Ondansetron INJ* 2 MG/ML VIAL IV ONE (19:48)
[2016-09-16 20:46] LABS: Urine Bacteria Absent (Absent); Urine Bilirubin Negative (Negative); Urine Glucose 3+(>=500 mg/dL) (Negative); Urine Nitrite Negative (Negative)
[2016-09-16 20:59] LABS: Benzodiazepine Urine Screen None Detected (None Detect)
[2016-09-16] MEDS ORDERED: amLODIPine TAB* 5 MG PO ONE (21:52)
[2016-09-16] MEDS ORDERED: Metoclopramide TAB* 10 MG PO PRN (21:55)
[2016-09-16] MEDS ORDERED: Losartan TAB* 25 MG PO ONE (21:56)
[2016-09-16] MEDS ORDERED: Isosorbide Mononitrate ER TAB* 60 MG PO ONE (21:57)
[2016-09-16] MEDS ORDERED: Atorvastatin* 80 MG TAB PO ONE (21:59)
[2016-09-16] MEDS ORDERED: Insulin GLARGINE(*) 1 UNITS UNIT SUBCUT SCH (22:00)
[2016-09-16 22:01] VITALS: BP 152/109
--- NOTE | 2016-09-16 22:22 | ED ---
I, Oh,Soohwaiun, scribed for John Paul Rogers MD on 09/16/16 at 1754 . Psychiatric Complaint - HPI Summary HPI Summary: This 36 y/o female presents to ED for acute on chronic depression and SI since today. Pt is also reported to have requested IV Dilaudid and threatened to kill ED staffs when refused. Pt does not report any plan. PMHx includes known DM and depression that is not controlled with any medication or counseling. Positive sleep disturbance and decreased appetite. Negative auditory hallucination. FHx is positive for bipolar and depression. Completed suicide to sister. - History Of Current Complaint Chief Complaint: EDMentalHealth Time Seen by Provider: 09/16/16 17:42 Hx Obtained From: Patient, Medical Records Hx Last Menstrual Period: NOW Onset/Duration: Still Present Timing: Constant Character: Depressed Aggravating Factor(s): Nothing Alleviating Factor(s): Nothing Associated Signs And Symptoms: Positive: Hostile, Sleep Disturbance, Appetite Change. Negative: Hallucinating Related History: Positive For: Prior Psychiatric Issues Has Suicidal: Reports: Thoughts - Allergies/Home Medications Allergies/Adverse Reactions: Allergies Allergy/AdvReac Type Severity Reaction Status Date / Time Amoxicillin [From Augmentin] Allergy See Comment Verified 09/16/16 16:13 Clavulanic Acid Allergy See Comment Verified 09/16/16 16:13 [From Augmentin] Heparin Allergy See Comment Verified 09/16/16 16:13 Metronidazole [From Flagyl] Allergy Nausea And Verified 09/16/16 16:13 Vomiting Morphine Allergy See Comment Verified 09/16/16 16:13 Ropinirole [From Requip] Allergy Hives Verified 09/16/16 16:13 Sulfamethoxazole Allergy Nausea And Verified 09/16/16 16:13 w/Trimethoprim Vomiting [From Bactrim] Codeine AdvReac Nausea And Verified 09/16/16 16:13 Vomiting Erythromycin AdvReac "DOESN'T Verified 09/16/16 16:13 WORK" Niacin AdvReac Hives Verified 09/16/16 16:13 plastic tape Allergy Blisters Uncoded 09/09/16 17:10 PMH/Surg Hx/FS Hx/Imm Hx Endocrine/Hematology History: Reports: Hx Anticoagulant Therapy - Aspirin., Hx Blood Transfusions, Hx Diabetes, Hx Thyroid Disease - nodule biopsied, normal, Hx Anemia - hx of - reports had tranfusion in 2014 after mi Cardiovascular History: Reports: Hx Angina, Hx Cardiac Arrest - in 2013 with CPR, Hx Cardiomegaly, Hx Coronary Artery Disease, Hx Hypercholesterolemia, Hx Hypertension, Hx Myocardial Infarction, Other Cardiovascular Problems/ Disorders - hyperlipidemia, CAD Denies: Hx Congestive Heart Failure, Hx Deep Vein Thrombosis, Hx Pacemaker/ ICD, Hx Valvular Heart Disease Respiratory History: Reports: Hx Asthma, Hx Chronic Obstructive Pulmonary Disease (COPD) - smoker, Hx Sleep Apnea - pt reports md thinks, but no official testing done yet, Other Respiratory Problems/Disorders - acute respipatory failure with hypoxia - jan 2016 Denies: Hx Lung Cancer, Hx Pneumonia, Hx Pulmonary Embolism GI History: Reports: Hx Gastroesophageal Reflux Disease, Other GI Disorders - GASTROPARESIS - TAKING OMEPRAZOLE Denies: Hx Gall Bladder Disease, Hx Gastrointestinal Bleed, Hx Ulcer, Hx Urosepsis History: Reports: Hx Acute Renal Failure, Hx Chronic Renal Failure, Hx Dialysis - PERITONEAL, Hx Kidney Stones - in past, Hx Renal Disease - ESRD on home peritoneal dialysis , Other Problems/Disorders - ESRD- URINATES A SMALL AMOUNT Musculoskeletal History: Reports: Hx Arthritis - back, hips, Hx Back Problems - Sciatica and Herniated L3 disk Sensory History: Reports: Hx Eye Prosthesis - left, 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, Hx Vision Problem Denies: Hx Contacts or Glasses, Hx Hearing Aid Opthamlomology History: Reports: Hx Eye Prosthesis - left, 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 MELANOMA REMOVED FROM [facility] 2012 (PROCEDURE DONE 4X);. CARDIAC CATH 2013 - NO STENTS;. LEFT WRIST FISTULA PLACEMENT ([facility]) 2013;. HEMODIALYSIS CATH RIGHT CHEST WALL 2013;. PERITONEAL DIALYSIS CATH 03/2014;. [place] [facility] [place] [facility] [place]. [place]ACEMENT RIGHT JUGULAR TESIO [place]ODIALYSIS CATHE[place] [facility] [place];. REMOVAL OF JUGULAR CATH - OCT 2015. CARDIAC CATH - stentsx2 right leg. PARTIAL AMPUTATION RIGHT TOES 06/2016 Hx Anesthesia Reactions: No - Immunization History Date of Tetanus Vaccine: UTD Date of Influenza Vaccine: 10/10/15 Infectious Disease History: No Infectious Disease History: Reports: Hx of Known/Suspected MRSA - MRSA R 1st toe Denies: Hx Clostridium Difficile, Hx Hepatitis, Hx Human Immunodeficiency Virus (HIV), Hx Shingles, Hx Tuberculosis, History Other Infectious Disease, Traveled Outside the [place] in Last 30 Days - Family History Known Family History: Positive: Cardiac Disease - father [place] at 42 y/o, Hypertension, Other - Positive for bipolar and depression. Completed suicide to sister. - Social History Alcohol Use: None Hx Substance Use: No Substance Use Type: Reports: None Substance Use Comment - Amount & Last Used: using chantix to quit smoking Hx Tobacco Use: Yes Smoking Status (MU): Current Every Day Smoker Type: Cigarettes Amount Used/How Often: 1 PPD Length of Time of Smoking/Using Tobacco: 20 YEARS Have You Smoked in the Last Year: Yes Review of Systems Negative: Fever Positive: Depressed, Other - Positive for SI All Other Systems Reviewed And Are Negative: Yes Physical Exam - Summary Physical Exam Summary: The patient is well-nourished in no acute distress and in no acute pain. The skin is warm and dry and skin color reflects adequate perfusion. HEENT: The head is normocephalic and atraumatic. Right pupil reactive. Left eye is artificial and not reactive to light. The conjunctivae are clear and without drainage. Nares are patent and without drainage. Mouth reveals moist mucous membranes and the throat is without erythema and exudate. The external ears are intact. The ear canals are patent and without drainage. The tympanic membranes are intact. Neck is supple with full range of motion and non-tender. There are no carotid bruits. There is no neck vein distension. Respiratory: Chest is non-tender. Lungs are clear to auscultation and breath sounds are symmetrical and equal. Cardiovascular: Hear is regular rate and rhythm. There is no murmur or rub auscultated. There is no peripheral edema and pulses are symmetrical and equal. Abdomen: The abdomen is soft and non-tender. There are normal bowel sounds heard in all four quadrants and there is no organomegaly palpated. Musculoskeletal: There is no back pain noted. Extremities are non-tender with full range of motion. There is good capillary refill. There is no peripheral edema or calf tenderness elicited. Neurological: Patient is alert and oriented to person, place and time. The patient has symmetrical motor strength in all four extremities. Cranial nerves are grossly intact. Deep tendon reflexes are symmetrical and equal in all four extremities. Psychiatric: The patient is tearful Triage Information Reviewed: Yes Vital Signs On Initial Exam: Initial Vitals Temp Pulse Resp BP Pulse Ox 98.1 F 95 16 176/106 96 09/16/16 17:39 09/16/16 17:39 09/16/16 17:39 09/16/16 17:39 09/16/16 17:39 Vital Signs Reviewed: Yes Diagnostics - Vital Signs Vital Signs Temp Pulse Resp BP Pulse Ox 09/16/16 17:39 98.1 F 95 16 176/106 96 - Laboratory Lab Results: Lab Results 09/16/16 09/16/16 09/16/16 Range/Units 18:30 18:30 18:30 WBC 8.6 (3.5-10.8) 10^3/ul RBC 4.51 (4.0-5.4) 10^6/ul Hgb 13.7 (12.0-16.0) g/dl Hct 42 (35-47) % MCV 93 (80-97) fL MCH 30 (27-31) pg MCHC 33 (31-36) g/dl RDW 17 H (10.5-15) % Plt Count 280 (150-450) 10^3/ul MPV 9 (7.4-10.4) um3 Neut % (Auto) 79.0 (38-83) % Lymph % (Auto) 12.2 L (25-47) % Rusk % (Auto) 4.9 (1-9) % Eos % (Auto) 2.6 (0-6) % Baso % (Auto) 1.3 (0-2) % Absolute Neuts (auto) 6.8 (1.5-7.7) 10^3/ul Absolute Lymphs (auto) 1.0 (1.0-4.8) 10^3/ul Absolute Monos (auto) 0.4 (0-0.8) 10^3/ul Absolute Eos (auto) 0.2 (0-0.6) 10^3/ul Absolute Basos (auto) 0.1 (0-0.2) 10^3/ul Absolute Nucleated RBC 0.01 10^3/ul Nucleated RBC % 0.1 INR (Anticoag Therapy) 0.97 (0.89-1.11) Sodium 130 L (133-145) mmol/L Potassium 5.3 H (3.5-5.0) mmol/L Chloride 95 L (101-111) mmol/L Carbon Dioxide 24 (22-32) mmol/L Anion Gap 11 (2-11) mmol/L BUN 46 H (6-24) mg/dL Creatinine 4.80 H (0.51-0.95) mg/dL Est GFR ( Amer) 13.1 (>60) Est GFR (Non-Af Amer) 10.2 (>60) BUN/Creatinine Ratio 9.6 (8-20) Glucose 433 H (70-100) mg/dL POC Glucose (mg/dL) (74-106) mg/dL Calcium 9.0 (8.6-10.3) mg/dL Total Bilirubin 0.30 (0.2-1.0) mg/dL AST 7 L (13-39) U/L ALT 8 (7-52) U/L Alkaline Phosphatase 95 (34-104) U/L Total Creatine Kinase 168 (10-223) U/L Total Protein 6.5 (6.4-8.9) g/dL Albumin 3.2 (3.2-5.2) g/dL Globulin 3.3 (2-4) g/dL Albumin/Globulin Ratio 1.0 (1-3) TSH 1.25 (0.34-5.60) mcIU/mL Beta HCG, Quant 1.07 mIU/mL Urine Color Urine Appearance Urine pH (5-9) Ur Specific Sherman (1.010-1.030) Urine Protein (Negative) Urine Ketones (Negative) Urine Blood (Negative) Urine Nitrate (Negative) Urine Bilirubin (Negative) Urine Urobilinogen (Negative) Ur Leukocyte Esterase (Negative) Urine WBC (Auto) (Absent) Urine RBC (Auto) (Absent) Ur Squamous Epith Cells (Absent) Urine Bacteria (Absent) Urine Glucose (Negative) Salicylates < 2.50 (<30) mg/dL Urine Opiates Screen (None Detect) Acetaminophen < 15 mcg/mL Ur Barbiturates Screen (None Detect) Ur Phencyclidine Scrn (None Detect) Ur Amphetamines Screen (None Detect) U Benzodiazepines Scrn (None Detect) Urine Cocaine Screen (None Detect) U Cannabinoids Screen (None Detect) Serum Alcohol < 10 (<10) mg/dL 09/16/16 09/16/16 09/16/16 Range/Units 20:34 20:34 21:19 WBC (3.5-10.8) 10^3/ul RBC (4.0-5.4) 10^6/ul Hgb (12.0-16.0) g/dl Hct (35-47) % MCV (80-97) fL MCH (27-31) pg MCHC (31-36) g/dl RDW (10.5-15) % Plt Count (150-450) 10^3/ul MPV (7.4-10.4) um3 Neut % (Auto) (38-83) % Lymph % (Auto) (25-47) % Rusk % (Auto) (1-9) % Eos % (Auto) (0-6) % Baso % (Auto) (0-2) % Absolute Neuts (auto) (1.5-7.7) 10^3/ul Absolute Lymphs (auto) (1.0-4.8) 10^3/ul Absolute Monos (auto) (0-0.8) 10^3/ul Absolute Eos (auto) (0-0.6) 10^3/ul Absolute Basos (auto) (0-0.2) 10^3/ul Absolute Nucleated RBC 10^3/ul Nucleated RBC % INR (Anticoag Therapy) (0.89-1.11) Sodium (133-145) mmol/L Potassium (3.5-5.0) mmol/L Chloride (101-111) mmol/L Carbon Dioxide (22-32) mmol/L Anion Gap (2-11) mmol/L BUN (6-24) mg/dL Creatinine (0.51-0.95) mg/dL Est GFR ( Amer) (>60) Est GFR (Non-Af Amer) (>60) BUN/Creatinine Ratio (8-20) Glucose (70-100) mg/dL POC Glucose (mg/dL) 245 H (74-106) mg/dL Calcium (8.6-10.3) mg/dL Total Bilirubin (0.2-1.0) mg/dL AST (13-39) U/L ALT (7-52) U/L Alkaline Phosphatase (34-104) U/L Total Creatine Kinase (10-223) U/L Total Protein (6.4-8.9) g/dL Albumin (3.2-5.2) g/dL Globulin (2-4) g/dL Albumin/Globulin Ratio (1-3) TSH (0.34-5.60) mcIU/mL Beta HCG, Quant mIU/mL Urine Color Yellow Urine Appearance Cloudy Urine pH 6.0 (5-9) Ur Specific Sherman 1.018 (1.010-1.030) Urine Protein 2+(100 mg/dl) H (Negative) Urine Ketones Negative (Negative) Urine Blood 1+ H (Negative) Urine Nitrate Negative (Negative) Urine Bilirubin Negative (Negative) Urine Urobilinogen Negative (Negative) Ur Leukocyte Esterase Negative (Negative) Urine WBC (Auto) Trace(0-5/hpf) (Absent) Urine RBC (Auto) 2+(6-10/hpf) H (Absent) Ur Squamous Epith Cells Present H (Absent) Urine Bacteria Absent (Absent) Urine Glucose 3+(>=500 mg/dl) H (Negative) Salicylates (<30) mg/dL Urine Opiates Screen Presumptive positive H (None Detect) Acetaminophen mcg/mL Ur Barbiturates Screen None detected (None Detect) Ur Phencyclidine Scrn None detected (None Detect) Ur Amphetamines Screen None detected (None Detect) U Benzodiazepines Scrn None detected (None Detect) Urine Cocaine Screen None detected (None Detect) U Cannabinoids Screen None detected (None Detect) Serum Alcohol (<10) mg/dL Result Diagrams: 09/16/16 18:30 09/16/16 18:30 Lab Statement: Any lab studies that have been ordered have been reviewed, and results considered in the medical decision making process. Re-Evaluation - Re-Evaluation First Eval Re-Evaluation Time: 19:42 Comment: in room to re-evaluate pt. Her right foot is re-checked. Whole toes have been amputated. Wound with 3 cm length and 1 cm deep open wound over #2-4 metatarsal is noted without any sign of infection. Another wound with black edge is noted over #4-5, without any purulent discharge or malodorous smell. Course/Dx - Course Assessment/Plan: This 36 y/o female presents to ED for depression and SI. Pt denies any plan. PMHx includes depression, HLD, DM, and renal failure. She is reported to have threatened to kill ED staffs when she requested IV Dilaudid and got refused. Tearful at time of initial evaluation. Pt refused EKG. Blood work indicates elevated blood glucose of 433, creatinine of 4.8, and BUN of 46. However, with known history of renal failure, hyperglycemia, and previous lab results, these lab results are deemed at her baseline. Pt is medically cleared and was given 10 units of insulin to symptomatically treated elevated blood glucose. Currently pending MHE. - Differential Dx/Clinical Impression Differential Diagnosis/HQI/PQRI: Positive: Depression, Suicidal Ideation, Other - infected right foot, renal failure, hyperglycemia Provider Diagnosis: Diabetes mellitus, Chronic renal failure, chronic wound of right foot, Depression, Suicidal ideation - Physician Notifications Patient Is Medically Stable For: Psych Evaluation - 1923 PM Discharge - Discharge Plan Condition: Stable Disposition: OTHER Discharge Disposition Comment: Pending MHE at this moment. Signed out at shift change. Referrals: Aishwarya Solis MD [Primary Care Provider] - The documentation as recorded by the Po sexton Soohyun accurately reflects the service I personally performed and the decisions made by me, John Paul Rogers MD.
[2016-09-17] MEDS ORDERED: Omeprazole CAP* 20 MG PO SCH (06:00)
[2016-09-17] MEDS ORDERED: Aspirin Low Dose CHEW TAB* 81 MG PO SCH (09:00)
[2016-09-17] MEDS ORDERED: Gabapentin CAP(*) 300 MG PO SCH (09:00)
[2016-09-17] MEDS ORDERED: Warfarin TAB(*) 2.5 MG PO SCH (17:00)
== END 2016-09-16 23:40 ==
LOC: ED 17:16
DX: F32.9 Major depressive disorder, single episode, unspecified (principal); N19 Unspecified kidney failure; E11.8 Type 2 diabetes mellitus with unspecified complications; R45.851 Suicidal ideations; F17.210 Nicotine dependence, cigarettes, uncomplicated
CPT/HCPCS: 36415; 80053; 80307; 80320; 80329; 81003; 81015; 82550; 84443; 84702; 85025; 85610; 96374; 96375; 99283; A9270-GY; G0480; J1170; J2405

== ENCOUNTER → 2016-09-18 10:26 | Emergency (ER) | payer OTHER ==
--- NOTE | 2016-09-18 10:58 | ED ---
Lower Extremity - HPI Summary HPI Summary: Patient presents to ED with CC of right foot pain which has been present x 6 months and is not improving. She is sent here by Dr. Pedraza's office for admit to Dr. Garcia's service. She has had surgery by DR. garcia and now complains of 10/10 pain is c/o nobody giving her pain medicine. Denies other pain or symptoms. She has had pain medications at home and states they are not helping her sxs improve. - History of Current Complaint Chief Complaint: EDExtremityLower Stated Complaint: RT FOOT PAIN Time Seen by Provider: 09/18/16 10:44 Hx Obtained From: Patient Hx Last Menstrual Period: NOW Onset of Pain: Immediate Onset/Duration: Still Present Severity Initially: Severe Severity Currently: Severe Pain Intensity: 10 Pain Scale Used: 0-10 Numeric Timing: Constant Location: Is Discrete @ - right foot Character Of Pain: Aching, Throbbing Aggravating Factor(s): Standing, Ambulation Alleviating Factor(s): Nothing Able to Bear Weight: No - Risk Factors Gout Risk Factors: Negative DVT Risk Factors: Smoking - Allergies/Home Medications Allergies/Adverse Reactions: Allergies Allergy/AdvReac Type Severity Reaction Status Date / Time Amoxicillin [From Augmentin] Allergy See Comment Verified 09/16/16 16:13 Clavulanic Acid Allergy See Comment Verified 09/16/16 16:13 [From Augmentin] Heparin Allergy See Comment Verified 09/16/16 16:13 Metronidazole [From Flagyl] Allergy Nausea And Verified 09/16/16 16:13 Vomiting Morphine Allergy See Comment Verified 09/16/16 16:13 Ropinirole [From Requip] Allergy Hives Verified 09/16/16 16:13 Sulfamethoxazole Allergy Nausea And Verified 09/16/16 16:13 w/Trimethoprim Vomiting [From Bactrim] Codeine AdvReac Nausea And Verified 09/16/16 16:13 Vomiting Erythromycin AdvReac "DOESN'T Verified 09/16/16 16:13 WORK" Niacin AdvReac Hives Verified 09/16/16 16:13 plastic tape Allergy Blisters Uncoded 09/09/16 17:10 PMH/Surg Hx/FS Hx/Imm Hx Previously Healthy: No Endocrine/Hematology History: Reports: Hx Anticoagulant Therapy - Aspirin., Hx Blood Transfusions, Hx Diabetes, Hx Thyroid Disease - nodule biopsied, normal, Hx Anemia - hx of - reports had tranfusion in 2013 after mi Cardiovascular History: Reports: Hx Angina, Hx Cardiac Arrest - in 2013 with CPR, Hx Cardiomegaly, Hx Coronary Artery Disease, Hx Hypercholesterolemia, Hx Hypertension, Hx Myocardial Infarction, Other Cardiovascular Problems/ Disorders - hyperlipidemia, CAD Denies: Hx Congestive Heart Failure, Hx Deep Vein Thrombosis, Hx Pacemaker/ ICD, Hx Valvular Heart Disease Respiratory History: Reports: Hx Asthma, Hx Chronic Obstructive Pulmonary Disease (COPD) - smoker, Hx Sleep Apnea - pt reports thinks, but no official testing done yet, Other Respiratory Problems/Disorders - acute respipatory failure with hypoxia - jan 2016 Denies: Hx Lung Cancer, Hx Pneumonia, Hx Pulmonary Embolism GI History: Reports: Hx Gastroesophageal Reflux Disease, Other GI Disorders - GASTROPARESIS - TAKING OMEPRAZOLE Denies: Hx Gall Bladder Disease, Hx Gastrointestinal Bleed, Hx Ulcer, Hx Urosepsis History: Reports: Hx Acute Renal Failure, Hx Chronic Renal Failure, Hx Dialysis - PERITONEAL, Hx Kidney Stones - in past, Hx Renal Disease - ESRD on home peritoneal dialysis , Other Problems/Disorders - ESRD- URINATES A SMALL AMOUNT Musculoskeletal History: Reports: Hx Arthritis - back, hips, Hx Back Problems - Sciatica and Herniated L3 disk Sensory History: Reports: Hx Eye Prosthesis - left, 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, Hx Vision Problem Denies: Hx Contacts or Glasses, Hx Hearing Aid Opthamlomology History: Reports: Hx Eye Prosthesis - left, 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, Hx Vision Problem Denies: Hx Contacts or Glasses Neurological History: Reports: Other Neuro Impairments/Disorders - neuropathy Denies: Hx Transient Ischemic Attacks (TIA) Psychiatric History: Reports: Hx Anxiety, Hx Depression, Hx Bipolar Disorder Denies: Hx Eating Disorder, Hx Panic Disorder, Hx Schizophrenia, Hx of Violent Episodes Against Others - Cancer History Cancer Type, 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 MELANOMA REMOVED FROM [facility] 2012 (PROCEDURE DONE 4X);. CARDIAC CATH 2013 - NO STENTS;. LEFT WRIST FISTULA PLACEMENT ([facility]) 2013;. HEMODIALYSIS CATH RIGHT CHEST WALL 2013;. PERITONEAL DIALYSIS CATH 03/2014;. CHEST WALL CATH REMOVAL 08/2015 [facility] [place];. RIGHT GREAT TOE AMPUTATION, [facility] [place] 05/2015;. PLACEMENT RIGHT JUGULAR TESIO HEMODIALYSIS CATHETER [facility] [place] 10/22/2015;. REMOVAL OF JUGULAR CATH - OCT 2015. CARDIAC CATH - stentsx2 right leg. PARTIAL AMPUTATION RIGHT TOES 06/2016 Hx Anesthesia Reactions: No - Immunization History Date of Tetanus Vaccine: UTD Date of Influenza Vaccine: 10/10/15 Hx Pertussis Vaccination: No Immunizations Up to Date: Unable to Obtain/Confirm Infectious Disease History: Reports: Hx of Known/Suspected MRSA - MRSA R 1st toe Denies: Hx Clostridium Difficile, Hx Hepatitis, Hx Human Immunodeficiency Virus (HIV), Hx Shingles, Hx Tuberculosis, History Other Infectious Disease, Traveled Outside the [place] in Last 30 Days - Family History Known Family History: Positive: Cardiac Disease - father [place] at 42 y/o, Hypertension, Other - Positive for bipolar and depression. Completed suicide to sister. - Social History Occupation: Employed Full-time Alcohol Use: None Hx Substance Use: No Substance Use Type: Reports: None Substance Use Comment - Amount & Last Used: using chantix to quit smoking Hx Tobacco Use: Yes Smoking Status (MU): Current Every Day Smoker Type: Cigarettes Amount Used/How Often: 1 PPD Length of Time of Smoking/Using Tobacco: 20 YEARS Have You Smoked in the Last Year: Yes Review of Systems Constitutional: Negative Eyes: Negative Cardiovascular: Negative Positive: Shortness Of Breath, Cough Gastrointestinal: Negative Positive: no symptoms reported, see HPI Positive: Arthralgia, Myalgia Skin: Negative Neurological: Negative All Other Systems Reviewed And Are Negative: Yes Physical Exam Triage Information Reviewed: Yes Vital Signs On Initial Exam: Initial Vitals Temp Pulse Resp BP Pulse Ox 97.9 F 110 18 162/104 93 09/18/16 10:35 09/18/16 10:35 09/18/16 10:35 09/18/16 10:35 09/18/16 10:35 Vital Signs Reviewed: Yes Appearance: Positive: Well-Appearing, Well-Nourished Skin: Positive: Warm, Skin Color Reflects Adequate Perfusion Neck: Positive: Supple, No Lymphadenopathy Respiratory/Lung Sounds: Positive: Clear to Auscultation, Breath Sounds Present Cardiovascular: Positive: Normal Musculoskeletal: Positive: Pain @ - right foot Psychiatric: Positive: Normal AVPU Assessment: Alert Diagnostics - Vital Signs Vital Signs Temp Pulse Resp BP Pulse Ox 09/18/16 10:35 97.9 F 110 18 162/104 93 - Laboratory Lab Statement: Any lab studies that have been ordered have been reviewed, and results considered in the medical decision making process. Lower Extremity Course/Dx - Course Course Of Treatment: Patient sent to ED by Dr. Pedraza for admit to Dr. Garcia's service. Called Dr. Garcia. Will not admit for pain control or angiogram d/t many AMA. Will schedule as an out patient. She is to call Dr. Garcia's office to schedule follow up ppt. Dr. Garcia will call Dr. Pedraza. Patient has continuing pain despite pain medicine. Will give Dilaudid PO per Dr. Garcia's orders. Patient upset upon dicharge. It was explained to her that she will not be admitted d/t her AMA and non-compliance, but she denies every doing those. - Diagnoses Differential Diagnosis/HQI/PQRI: Positive: Other - pain, neuropathy, vascular compromise Provider Diagnoses: Neuropathy Discharge - Discharge Plan Condition: Stable Disposition: HOME Prescriptions: HYDROmorphone TAB* [Dilaudid TAB*] 4 mg PO Q6H PRN #20 tab MDD 4 PRN Reason: Pain Referrals: Aishwarya Solis MD [Primary Care Provider] - Additional Instructions: Follow up with DR. Garcia Take ibuprofen for pain control For breakthrough pain, you may take the dilaudid Call Dr. Garcia's office today.
[2016-09-18 11:13] VITALS: BP 171/106
== END | disposition home or self-care (01) ==
LOC: ED 10:26
DX: G62.9 Polyneuropathy, unspecified (principal); M79.671 Pain in right foot; E11.22 Type 2 diabetes mellitus with diabetic chronic kidney disease; N18.6 End stage renal disease; Z99.2 Dependence on renal dialysis; J45.909 Unspecified asthma, uncomplicated; Z79.82 Long term (current) use of aspirin; F32.9 Major depressive disorder, single episode, unspecified; Z88.3 Allergy status to other anti-infective agents; Z88.5 Allergy status to narcotic agent; F17.210 Nicotine dependence, cigarettes, uncomplicated
CPT/HCPCS: 99282

== ENCOUNTER 2016-09-18 12:04 | Inpatient (IN) | payer OTHER ==
[2016-09-18] MEDS ORDERED: Acetaminophen TAB* 325 MG PO PRN (12:25)
[2016-09-18] MEDS ORDERED: Dextrose 50% Syringe 50 ML* 25 GM/50 ML SYRINGE IV PUSH PRN (12:34)
[2016-09-18] MEDS ORDERED: Mouth Piece, Nicotine* 1 EACH CARTRIDGE INH PRN (12:36)
[2016-09-18] MEDS ORDERED: Methadone TAB* 5 MG PO ONE (12:41)
[2016-09-18] MEDS ORDERED: Naproxen TAB* 250 MG PO PRN (13:33)
[2016-09-18] MEDS ORDERED: Albuterol HFA INHALER* 8 gm MDI INH PRN (13:33)
[2016-09-18] MEDS ORDERED: Metoclopramide TAB* 10 MG PO PRN (13:33)
[2016-09-18 13:36] LABS: Hematocrit 41 % (35-47); Hemoglobin 13.3 g/dl (12.0-16.0); Mean Corpuscular HGB Conc 32 g/dl (31-36); Mean Corpuscular Hemoglobin 30 pg (27-31); Mean Corpuscular Volume 92 fL (80-97); Mean Platelet Volume 9 um3 (7.4-10.4); Red Blood Count 4.44 10^6/ul (4.0-5.4); Red Cell Distribution Width 17 % (10.5-15)
[2016-09-18] MEDS: Nicotine PATCH 21 MG/24 HR* PATCH TRANSDERM SCH (13:40)
[2016-09-18] MEDS ORDERED: Piperacillin/Tazobac (*) 3.375 GM ADDV.VIAL ONE (13:50)
[2016-09-18 13:58] LABS: Albumin 3.2 g/dL (3.2-5.2); C Reactive Protein 6.19 mg/L (< 5.00); Calcium 8.8 mg/dL (8.6-10.3); EGFR African American 13.5 (>60); EGFR Non-African American 10.5 (>60); Globulin 3.2 g/dL (2-4); Potassium 5.1 mmol/L (3.5-5.0); Total Bilirubin 0.4 mg/dL (0.2-1.0); Total Protein 6.4 g/dL (6.4-8.9)
[2016-09-18] MEDS ORDERED: Zosyn per Pharmacy* NOTE FOLLOW UP SCH (14:00)
[2016-09-18] MEDS ORDERED: Methadone TAB* 5 MG PO SCH (14:00)
--- NOTE | 2016-09-18 15:17 | RAD ---
Indication: Post amputation RIGHT great toe. Poor RIGHT lower extremity wound healing. Post stent placement in June 2016. Comparison: May 17, 2016 Technique: Ankle and brachial blood pressure measurement. Calculated ankle-brachial indices. REPORT: The right ankle brachial index could not be calculated due to noncompressible vessels. Low echo to biphasic posterior tibial and dorsalis pedis waveforms documented. Ankle pulse volume recordings are are mostly devoid of reflected waves. The left ankle brachial index is 0.58 consistent with multisegment disease or long segment occlusion without significant interval change. Biphasic posterior tibial and dorsalis pedis waveforms. Arterial flow documented at the LEFT great toe. Grossly unremarkable LEFT ankle pulse volume recording. IMPRESSION: 1. The RIGHT ankle brachial index could not be calculated due to noncompressible vessels. Interval improvement in dorsalis pedis and posterior tibial waveforms compared with the May 17, 2016 exam. 2. Claudication range LEFT ankle brachial index without significant interval change.
[2016-09-18] MEDS: Gabapentin CAP(*) 100 MG PO SCH ×2 (15:19→21:28)
[2016-09-18] MEDS ORDERED: Insulin LISPRO* 1 UNITS UNIT SUBCUT SCH (16:30)
--- NOTE | 2016-09-18 16:44 | CONS ---
CONSULTATION NOTE: DATE OF CONSULT: 09/18/16 HISTORY OF PRESENT ILLNESS: Margaux Ramirez is seen in the emergency room. She is referred in by Dr. Marrufo, her cop examiner. She is a 36-year-old diabetic lady who has had chronic wound problems of the right mid foot. She had a transmetatarsal amputation previously with poor wound healing. The wound healing problem has become chronic. Recent radiographs in my office have displayed clean transmetatarsal amputation level without osteomyelitis, but her wounds in the lateral 4th metatarsal area does probe down to bone. Margaux has continued to smoke heavily throughout this recovery process. Two weeks ago, I admitted her to my service for medical consultation and vascular consultation and infectious disease consultation with the hope of possibly revising the amputation. During that hospital stay in a course of the 72-hour, she went AMA twice and so we were unable to accomplish any of the above. Today, Dr. Marrufo saw her in his office with an overwhelming request and complaint of ongoing pain and poor pain management. He has referred her to the hospitalist service today for medical evaluation, pain management evaluation, and Orthopedics consultation. Margaux appears to be in no acute distress, although she still complains of her baseline high level pain. She did see a vascular doctor at [facility] last week and we do not have records from that doctor, but evidently that doctor was interested in scheduling her for angiography or CT angiography of the limb. This was scheduled a month out. Margaux's wound at this time is chronically stable and probably 3 to 4 cm wide and a couple of cm deep down to bone with some clear serous drainage, not particularly foul smelling. Overall wound margin is somewhat ischemic. She does have a warm foot, but I am not able to palpate pulses. The patient with multi-system problems: 1. Pain management will be an issue. I think the methadone may be a good idea. 2. She has a nonhealing wound in the phase of smoking and poor compliance with medical regimen including 2 AMA departures from her recent hospitalization. She may have poor vascular supply of the area and it would be helpful if this could be evaluated by her vascular team, although the patient may or may not stay in the hospital to allow this to occur. Also, the patient has poor progression to healing and may be at risk for osteomyelitis and spread of infection. At this point, I would recommend Betadine packing to the right forefoot, not iodoform gauze, nonweightbearing status, ID consult, and vascular consult. [id number]/[facility] #: [id number] [facility]
[2016-09-18] MEDS: Insulin LISPRO* 1 UNITS UNIT SUBCUT SCH ×2 (17:10→19:52)
[2016-09-18] MEDS: ZOSYN 3.375 GM Q12H per EXTENDED INFUSION IVPB SCH ×2 (17:10)
[2016-09-18] MEDS: Losartan TAB* 25 MG PO SCH (17:11)
[2016-09-18] MEDS: Omeprazole CAP* 20 MG PO SCH (17:12)
[2016-09-18] MEDS: Isosorbide Mononitrate ER TAB* 60 MG PO SCH (17:12)
[2016-09-18] MEDS: Atorvastatin* 80 MG TAB PO SCH (17:12)
[2016-09-18] MEDS: amLODIPine TAB* 5 MG PO SCH (17:12)
--- NOTE | 2016-09-18 17:27 | HP ---
CC: Aishwarya Solis MD; Dr. Marrufo; Dr. Serrano; Dr. Benavidez; Dr. Garcia * ADMISSION HISTORY AND PHYSICAL: DATE OF ADMISSION: 09/18/16 PRIMARY CARE PROVIDER: Aishwarya Solis MD PULL OUT OPERATOR: Dr. Marrufo. ORTHOPEDIC SURGEON: Dr. Garcia. CONSULTING INFECTIOUS DISEASE SPECIALIST: Dr. Benavidez. CONSULTING INTERVENTIONAL RADIOLOGIST: Dr. Serrano. ADMITTING PROVIDER: GIOVANNI Rodriguez SUPERVISING PHYSICIAN: Samuel Cm MD * (DICTATED BY GIOVANNI RODRIGUEZ) CHIEF COMPLAINT: Right foot pain. HISTORY OF PRESENT ILLNESS: This is a 36-year-old female with multiple medical problems including poorly controlled insulin-dependent diabetes as well as end- stage renal disease, managed by Dr. Marrufo with peritoneal dialysis as well as peripheral vascular disease, status post arterial stenting procedure completed at [facility] in June of 2016 as well as a relatively recent transmetatarsal right foot amputation completed by Dr. Garcia. The patient was admitted to our hospital on 09/06/16 through 09/09/16, which resulted in her leaving against medical advice actually on 2 occasions within a 24-hour period due to her frustration with pain control and smoking policies. The patient reports that she is continuing to have severe right foot pain and presented to her train engineer, Dr. Mrarufo's office earlier today with these complaints. Dr. Marrufo recommended that she return to the emergency department for readmission. The patient states that she has been afebrile at home. She has been using mostly naproxen for pain control. She has not been on any recent antibiotic therapy. She denies any other recent illness including cough , shortness of breath, abdominal pain, and nausea or vomiting. Her only complaint at this time is right foot pain. She describes the pain is a sharp, needle prick sensation even to light touch. During the patient's last hospital stay, she had been started on broad-spectrum antibiotic therapy and focus was on improving glycemic control and vascular consultation and considering revision of the prior amputation site. The patient did undergo a vascular stenting procedure at [facility] in June, which proceeded the transmetatarsal amputation that Dr. Garcia performed. Following her hospital stay at [facility], she was instructed not to continue to use any heparin products including heparin flushes for her peritoneal dialysis catheter and was told that she was allergic to this product. She was also started on anticoagulation in the form of Eliquis at that time. She was unable to afford her Eliquis co-pays and had subsequently been switched to Coumadin just prior to her last admission, but was subtherapeutic at that time. Records were requested from her [facility] stay but not received prior to her leaving the hospital. The patient has been largely noncompliant with recommendations for nonweightbearing or limited weightbearing on her right foot and continues to smoke quite heavily. Her glucose was extremely difficult to control and complicated by her peritoneal dialysis therapy, which requires a dextrose based solution. The patient has been referred back to the hospital with the goals of achieving improved glycemic control and obtaining vascular consultation with plans to likely revise her prior amputation site. Dr. Marrufo would like to trial methadone for pain control rather than alternate shorter-acting opioid. PAST MEDICAL HISTORY: 1. Poorly controlled insulin-dependent diabetes. 2. End-stage renal disease, managed on peritoneal dialysis with Dr. Marrufo. 3. Peripheral neuropathy. 4. Coronary artery disease. 5. Hypertension. 6. Hyperlipidemia. 7. Peripheral vascular disease, status post vascular stenting procedure at [facility] in June of 2016. 8. Asthma. 9. GERD. 10. Depression. 11. Anxiety. PAST SURGICAL HISTORY: 1. Coronary catheterization. 2. PD catheter insertion. 3. Great toe amputation. 4. Right transmetatarsal amputation. 5. Right lower extremity arterial stent. 6. Left eye prosthesis. HOME MEDICATIONS: 1. Albuterol inhaler 2 puffs inhaled q.6 hours p.r.n. shortness of breath. 2. Aspirin 81 mg p.o. daily. 3. Atorvastatin 80 mg p.o. daily. 4. Neurontin 100 mg p.o. t.i.d. 5. NovoLog on a sliding scale with mealtime. 6. Lantus 80 units b.i.d. 7. Isosorbide mononitrate 60 mg p.o. each evening. 8. Losartan 100 mg p.o. each evening. 9. Reglan 10 mg p.o. q.6 hours as needed for nausea. 10. Naproxen 220 mg p.o. q.6 hours as needed for pain. 11. Omeprazole 20 mg p.o. daily. 12. Coumadin 2.5 mg p.o. daily. 13. Amlodipine 10 mg p.o. daily. SOCIAL HISTORY: The patient lives at home with her fiance. She has about a 20 - pack year smoking history and continues to smoke approximately a pack of cigarettes daily. She does not consume alcohol on a regular basis. REVIEW OF SYSTEMS: As noted above in the HPI. All other systems reviewed and considered negative. PHYSICAL EXAMINATION GENERAL: This is a 36-year-old female, who appears much older than stated age and is quite lethargic. She opens her eyes for interaction and states that she is tired because she has not been sleeping well at night due to her right foot pain. VITAL SIGNS: Initial vitals, temperature 98.9 degrees Fahrenheit, pulse 100 beats per minute, respiratory rate 17 per minute, oxygen saturation 94% on room air, and blood pressure 168/97 mmHg. HEENT: Head is normocephalic, atraumatic. The patient is blind and has multiple dental caries. NECK: Supple and free of lymphadenopathy. RESPIRATORY: Lungs are clear to auscultation without wheezes, crackles, or rhonchi. CARDIOVASCULAR: Heart has a regular rate and rhythm without murmurs, rubs, or gallops. ABDOMEN: Soft and nontender to palpation. The patient is currently hooked to a catheter via her peritoneal dialysis port. EXTREMITIES: Right lower extremity demonstrates a transmetatarsal amputation site. There are 2 open areas. Both open areas are along prior incision site. The more medial is fairly shallow without surrounding erythema. The more lateral site is approximately 1.5 x 1 cm and approximately 7 to 10 mm in depth. There is no active drainage or significant odor associated with it. No significant surrounding erythema. The patient is extremely tender to palpation around her entire foot reporting a pins and needle sensation and sharp stabbing pain with any palpation. PSYCH: The patient is alert and appropriately oriented. LABORATORY EVALUATION: CBC shows a white blood cell count of 12,000, hemoglobin of 13.3 g/dL, and a platelet count of 267,000. INR of 0.9. PTT of 30. Comprehensive metabolic panel shows a sodium of 128, potassium 5.1, carbon dioxide 22, BUN 42, creatinine 4.69, random glucose of 432. Transaminases and total bilirubin within normal limits. CRP of 6.1. IMAGING: Most recent x-ray of her right foot completed 09/06/16 demonstrates transmetatarsal amputation without evidence of erosion or periosteal reaction to suggest osteomyelitis. ASSESSMENT AND PLAN: This is a 36-year-old female with multiple medical problems including poorly controlled insulin-dependent diabetes and end-stage renal disease as well as peripheral vascular disease and continued tobacco dependence who presents with a nonhealing right foot ulcer for further management. 1. Nonhealing right foot ulcer - there are multiple factors contributing to poor wound healing including her poorly controlled diabetes, her smoking status , and likely microvascular compromise. Dr. Garcia has been involved in her care. We will plan at this time to consult Dr. Benavidez from an infectious disease standpoint in regards to advice for antibiotics and empirically start Zosyn at this time. We will also request services of Dr. Serrano to assess vascular status in that right lower leg to properly assess probability for wound healing to aid in further surgical planning. Dr. Serrano has requested that we obtain records from her prior vascular procedure at [facility] as well as ABIs. She had an WILLIAM completed prior to her stent completed in June that would be helpful to compare now that she has had vascular stenting procedure. In terms of dressing changes, Dr. Garcia has recommended wet-to-dry dressings with Betadine changed daily. 2. Right foot pain. The patient reports that her pain has been worse since the time of her transmetatarsal amputation. She describes the pain as a sharp stabbing needle prick sensation even with light palpation. She is currently managed with gabapentin and has been using naproxen at home. Dilaudid has been used in the past for more acute pain management. Dr. Marrufo has suggested the use of methadone, which will be initiated at a dose of 5 to 10 mg p.o. q.6 hours as needed for pain. Dr. Marrufo reports that she can continue p.r.n. naproxen despite her renal status. 3. Insulin-dependent diabetes - her glucose control is extremely poor. Last hemoglobin A1c from June of this year was 14.1%. She is currently managed with Lantus 80 units twice daily at home with additional NovoLog at mealtime per sliding scale. She has clear spikes in glucose with her peritoneal infusion, which is dextrose based. Discussed this with Dr. Marrufo who stated that there is not an alternative for her dialysate and compensatory measures with her insulin will be necessary. At this time, we will plan to increase her Lantus from 80 b.i.d. to 80 in the morning and 100 in the evening and give an additional bolus of regular insulin in the evenings at the time of her dialysate infusion. We would continue with q.4 fingersticks to assess glycemic control especially in the overnight hours. 4. End-stage renal disease - managed by Dr. Marrufo and we will continue with peritoneal dialysis. 5. Tobacco dependence - the patient is unable or unwilling to consider cessation of tobacco products. She will be prescribed a nicotine patch while she is here and use of a nicotine inhaler on an as needed basis. 6. Peripheral vascular disease - please see discussion above. She has undergone vascular stenting procedure at [facility] in June of this year. Records from this are pending at this time. She does give a history of being told that she was allergic to heparin products at that time and we will start her on the anticoagulation. She is currently on Coumadin but with an INR of 0.9, which begs to question her compliance with anticoagulation. Requested consultation from Dr. Alex Serrano, interventional radiologist to help assess vascular status of the right lower extremity. 7. Asthma - this is more likely COPD. No evidence of acute exacerbation at this time, but we will plan to continue her p.r.n. albuterol during her hospital stay. 8. Code status: The patient is full code. 9. DVT prophylaxis: The patient will be continued on Coumadin. 10. Healthcare proxy is her fiance. DISPOSITION: The patient is being admitted to inpatient status with anticipated length of stay to be greater than 2 midnights. GIOVANNI RODRIGUEZ [id number]/[facility] #: [id number] [facility]
[2016-09-18] MEDS: Methadone TAB* 10 MG PO PRN (19:25)
[2016-09-18] MEDS: Nicotine Inhaler* 10 MG AMP INH PRN (19:26)
[2016-09-18] MEDS ORDERED: Insulin REGULAR(*) 1 UNITS UNIT SUBCUT SCH (19:30)
[2016-09-18] MEDS ORDERED: Insulin GLARGINE(*) 1 UNITS UNIT SUBCUT SCH ×2 (21:00)
[2016-09-18] MEDS: Nicotine Patch Removal NOTE FOLLOW UP SCH (21:40)
--- NOTE | 2016-09-18 21:48 | PN ---
Hospitalist Progress Note Records from [facility] arrived and were reviewed. It appears that patient underwent RLE angiogram 06/18/16 and stenting to the SFA, AK-popliteal and balloon angioplasty of the SFA, popliteal and peroneal with tPA thrombolysis to the R peroneal artery. Shortly after the procedure patient lost her pulse in the RLE, she had occluded her SFA stent and another was deployed. HIT was suspected due to rapid occlusion. Initial screening was positive for HIT, but confirmatory testing was negative. These test results were not available until after discharge. Based on this information, it appears that HIT was not an accurate diagnosis and there is no reason to continue to avoid heparin products, but test results should be reviewed with hematology before decision is made to use heparin based products. Also of note it appears that patient has been admitted on multiple occasions to [facility] with the same complaint of R foot pain which have resulted in patient leaving A and specifically requesting Dilaudid.
[2016-09-19] MEDS: Insulin LISPRO* 1 UNITS UNIT SUBCUT SCH ×6 (01:13→20:48)
[2016-09-19] MEDS: Methadone TAB* 10 MG PO PRN ×3 (01:13→15:32)
[2016-09-19 06:02] LABS: Hematocrit 39 % (35-47); Hemoglobin 12.7 g/dl (12.0-16.0); Mean Corpuscular HGB Conc 33 g/dl (31-36); Mean Corpuscular Hemoglobin 30 pg (27-31); Mean Corpuscular Volume 93 fL (80-97); Mean Platelet Volume 9 um3 (7.4-10.4); Red Blood Count 4.17 10^6/ul (4.0-5.4); Red Cell Distribution Width 17 % (10.5-15); White Blood Count 9.3 10^3/ul (3.5-10.8)
[2016-09-19] MEDS: ZOSYN 3.375 GM Q12H per EXTENDED INFUSION IVPB SCH ×4 (06:04→18:15)
[2016-09-19 06:18] LABS: BUN/Creatinine Ratio 9.3 (8-20); Calcium 8.6 mg/dL (8.6-10.3); EGFR African American 12.4 (>60); EGFR Non-African American 9.7 (>60); Potassium 4.9 mmol/L (3.5-5.0)
[2016-09-19] MEDS: Pregabalin CAP(*) 25 MG PO SCH (07:46)
[2016-09-19] MEDS: Gabapentin CAP(*) 100 MG PO SCH ×3 (07:46→20:47)
[2016-09-19] MEDS: Aspirin Low Dose CHEW TAB* 81 MG PO SCH (07:46)
[2016-09-19] MEDS: Nicotine PATCH 21 MG/24 HR* PATCH TRANSDERM SCH (07:47)
[2016-09-19] MEDS: Nicotine Inhaler* 10 MG AMP INH PRN (08:02)
--- NOTE | 2016-09-19 08:28 | CONSULT ---
Consult Consult: Date of Service: 09/19/16 Reason for Consultation: Evaluation for potential endovascular revascularization of the RLE HPI: 36 YOF with advanced vasculopathy in the presence of chronic renal failure due to diabetes. The patient underwent stenting of the right SFA/pop at [facility] in May 2016. 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 Since then the patient has undergone TMA of the right foot and is showing signs of poor wound healing. PE: Selected Entries 09/19/16 09/19/16 03:46 07:46 Temperature 97.6 F Temperature Oral Source Pulse Rate 77 Respiratory 17 Rate Blood Pressure 114/52 (mmHg) Blood Pressure 62 Mean O2 Sat by Pulse 92 Oximetry Patient on Room Yes Air NAD, AAO x 3 RRR, S1/S2 CTAB Abdomen soft and nontender. 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 Questionably palpable left MOLD PULLER pulse Cannot palpate either pop or left DPA Dressing to distal right foot intact with small amount of dried blood (dressing was not removed to examine wound) Objective Data: Laboratory Tests 09/18/16 09/19/16 09/19/16 13:30 05:30 05:30 WBC 9.3 RBC 4.17 Hgb 12.7 Hct 39 INR (Anticoag Therapy) 0.90 APTT 30.6 Potassium 4.9 BUN 47 H Creatinine 5.03 H Est GFR (Non-Af Amer) 9.7 POC Glucose (mg/dL) 09/19/16 07:51 WBC RBC Hgb Hct INR (Anticoag Therapy) APTT Potassium BUN Creatinine Est GFR (Non-Af Amer) POC Glucose (mg/dL) 233 H WILLIAM, 09/18/16: Improved waveforms from the pre-endovascular surgery procedure in April 2016, but persistently attenuated with noncompressibility of the IP arteries. Patient Name: JULI PERRY Medical Record#: [id number] Ordering Physician: Morris DAVILA Acct.#: [id number] : 1980 Age: 36 Sex: F Location: [address] [place] [address] MEDICAL Exam Date: 09/18/16 1348 ADM Status: ADM IN Order Information: VL ANK/ BRACHIAL INDICES Accession Number: [id number] CPT: 86690 Indication: Post amputation RIGHT great toe. Poor RIGHT lower extremity wound healing. Post stent placement in June 2016. Comparison: May 17, 2016 Technique: Ankle and brachial blood pressure measurement. Calculated ankle- brachial indices. REPORT: The right ankle brachial index could not be calculated due to noncompressible vessels. Low echo to biphasic posterior tibial and dorsalis pedis waveforms documented. Ankle pulse volume recordings are are mostly devoid of reflected waves. The left ankle brachial index is 0.58 consistent with multisegment disease or long segment occlusion without significant interval change. Biphasic posterior tibial and dorsalis pedis waveforms. Arterial flow documented at the LEFT great toe. Grossly unremarkable LEFT ankle pulse volume recording. IMPRESSION: 1. The RIGHT ankle brachial index could not be calculated due to noncompressible vessels. Interval improvement in dorsalis pedis and posterior tibial waveforms compared with the May 17, 2016 exam. 2. Claudication range LEFT ankle brachial index without significant interval change. <Electronically signed by Jeffery Quan MD in [facility]> 09/18/16 1514 Dictated By: Jeffery Quan MD Dictated Date/Time: 09/18/16 1514 Transcribed Date/Time: 09/18/16 1501 Summary: 36 YOF, poorly controlled diabetic with vasculopathy advanced for her age, presenting with persistent RLE arterial insufficiency and subsequent poor TMA wound healing. I suspect either her right SFA stents have occluded or she has persistent/ worsening infrapopliteal arterial stenosis/occlusion which would render SFA stenting of minimal benefit to the foot. Plan & Recommendations: 1. Concur with plan to consult hematology to determine for certain if the patient has an allergy to Heparin as Heparin is a crucial component of safe endovascular technique. 2. RLE arterial ultrasound specifically to determine patency and exact location of stents. 3. TBD if patient will benefit from further endovascular therapy or will require vascular surgical consultation.
[2016-09-19] MEDS ORDERED: Insulin GLARGINE(*) 1 UNITS UNIT SUBCUT SCH (09:00)
[2016-09-19] MEDS: Mupirocin 2% OINT* TUBE TOPICAL SCH (09:53)
--- NOTE | 2016-09-19 11:25 | PN ---
Progress Note - Progress Note Date of Service: 09/19/16 SOAP: Subjective: []Patient seen at bedside, sleeping upon entering room. She had consultation with Dr. Serrano who is scheduling her for a CTA later today. She states her pain is better managed with the methadone. She had her betadine wet -dry dressing change done this am. She is hoping she may be able to go home tomorrow. Objective: [] Vital Signs Temp 97.6 F 09/19/16 07:33 Pulse 93 09/19/16 07:33 Resp 17 09/19/16 07:46 BP 131/92 09/19/16 07:33 Pulse Ox 95 09/19/16 07:33 Intake & Output 09/18/16 09/19/16 09/19/16 18:59 06:59 18:59 Intake Total 560 420 Balance 560 420 Weight 225 lb 220 lb Intake: IV Fluids 20 NS (0.9%) 20 IVPB 100 ABX - ZOSYN 100 Oral 440 420 Other: # Voids 1 Laboratory Results - last 24 hr 09/18/16 09/18/16 09/18/16 13:30 13:30 13:30 WBC 12.0 H RBC 4.44 Hgb 13.3 Hct 41 MCV 92 MCH 30 MCHC 32 RDW 17 H Plt Count 267 MPV 9 Neut % (Auto) 80.4 Lymph % (Auto) 10.0 L York % (Auto) 5.3 Eos % (Auto) 3.1 Baso % (Auto) 1.2 Absolute Neuts (auto) 9.7 H Absolute Lymphs (auto) 1.2 Absolute Monos (auto) 0.6 Absolute Eos (auto) 0.4 Absolute Basos (auto) 0.1 Absolute Nucleated RBC 0 Nucleated RBC % 0 INR (Anticoag Therapy) 0.90 APTT 30.6 Sodium 128 L Potassium 5.1 H Chloride 97 L Carbon Dioxide 22 Anion Gap 9 BUN 42 H Creatinine 4.69 H Est GFR ( Amer) 13.5 Est GFR (Non-Af Amer) 10.5 BUN/Creatinine Ratio 9.0 Glucose 432 H POC Glucose (mg/dL) Lactic Acid Calcium 8.8 Total Bilirubin 0.40 AST 9 L ALT 9 Alkaline Phosphatase 102 C-Reactive Protein 6.19 H Total Protein 6.4 Albumin 3.2 Globulin 3.2 Albumin/Globulin Ratio 1.0 09/18/16 09/18/16 09/18/16 15:15 15:58 16:12 WBC RBC Hgb Hct MCV MCH MCHC RDW Plt Count MPV Neut % (Auto) Lymph % (Auto) York % (Auto) Eos % (Auto) Baso % (Auto) Absolute Neuts (auto) Absolute Lymphs (auto) Absolute Monos (auto) Absolute Eos (auto) Absolute Basos (auto) Absolute Nucleated RBC Nucleated RBC % INR (Anticoag Therapy) APTT Sodium Potassium Chloride Carbon Dioxide Anion Gap BUN Creatinine Est GFR ( Amer) Est GFR (Non-Af Amer) BUN/Creatinine Ratio Glucose 399 H POC Glucose (mg/dL) 404 H* Lactic Acid 1.5 Calcium Total Bilirubin AST ALT Alkaline Phosphatase C-Reactive Protein Total Protein Albumin Globulin Albumin/Globulin Ratio 09/18/16 09/19/16 09/19/16 19:50 00:23 04:43 WBC RBC Hgb Hct MCV MCH MCHC RDW Plt Count MPV Neut % (Auto) Lymph % (Auto) York % (Auto) Eos % (Auto) Baso % (Auto) Absolute Neuts (auto) Absolute Lymphs (auto) Absolute Monos (auto) Absolute Eos (auto) Absolute Basos (auto) Absolute Nucleated RBC Nucleated RBC % INR (Anticoag Therapy) APTT Sodium Potassium Chloride Carbon Dioxide Anion Gap BUN Creatinine Est GFR ( Amer) Est GFR (Non-Af Amer) BUN/Creatinine Ratio Glucose POC Glucose (mg/dL) 75 181 H 157 H Lactic Acid Calcium Total Bilirubin AST ALT Alkaline Phosphatase C-Reactive Protein Total Protein Albumin Globulin Albumin/Globulin Ratio 09/19/16 09/19/16 09/19/16 05:30 05:30 07:51 WBC 9.3 RBC 4.17 Hgb 12.7 Hct 39 MCV 93 MCH 30 MCHC 33 RDW 17 H Plt Count 270 MPV 9 Neut % (Auto) 69.7 Lymph % (Auto) 17.6 L York % (Auto) 8.0 Eos % (Auto) 3.6 Baso % (Auto) 1.1 Absolute Neuts (auto) 6.5 Absolute Lymphs (auto) 1.6 Absolute Monos (auto) 0.7 Absolute Eos (auto) 0.3 Absolute Basos (auto) 0.1 Absolute Nucleated RBC 0.01 Nucleated RBC % 0.1 INR (Anticoag Therapy) APTT Sodium 134 Potassium 4.9 Chloride 100 L Carbon Dioxide 23 Anion Gap 11 BUN 47 H Creatinine 5.03 H Est GFR ( Amer) 12.4 Est GFR (Non-Af Amer) 9.7 BUN/Creatinine Ratio 9.3 Glucose 155 H POC Glucose (mg/dL) 233 H Lactic Acid Calcium 8.6 Total Bilirubin AST ALT Alkaline Phosphatase C-Reactive Protein Total Protein Albumin Globulin Albumin/Globulin Ratio Left foot dressings were not taken down as just changed Assessment: []Poorly healing TMA incision left foot Pain management Plan: []Currently on Zosyn and Doxycycline per Dr. Benavidez Continue BID betadine dressing changes Await Dr. Serrano's final recommendations with upcoming vascular study
[2016-09-19] MEDS ORDERED: Albuterol 2.5 MG/3 ML NEB.SOL* (0.083%) INH PRN (12:04)
--- NOTE | 2016-09-19 13:36 | PN ---
Subjective Date of Service: 09/19/16 Interval History: HOSPITALIST PROGRESS NOTE Patient seen and examined at bedside. She feels better today. Her pain is better controlled with Methadone. Denies CP , palpitations, or dyspnea. Family History: Unchanged from Admission Social History: Unchanged from Admission Past Medical History: Unchanged from Admission Objective Active Medications: Acetaminophen (Tylenol Tab*) 650 mg PO Q4H PRN PRN Reason: FEVER/PAIN Albuterol (Ventolin Hfa Inhaler*) 2 puff INH Q6H PRN PRN Reason: WHEEZING Albuterol (Ventolin 2.5 Mg/3 Ml Neb.Kaylynn*) 2.5 mg INH Q6H PRN PRN Reason: SOB/WHEEZING Amlodipine Besylate (Norvasc Tab*) 10 mg PO QPM [facility] Last Admin: 09/18/16 17:12 Dose: 10 mg Aspirin (Aspirin Low Dose Tab*) 81 mg PO DAILY [facility] Last Admin: 09/19/16 07:46 Dose: 81 mg Atorvastatin Calcium (Lipitor*) 80 mg PO QPM [facility] Last Admin: 09/18/16 17:12 Dose: 80 mg Device (Nicotine Mouth Piece*) 1 each INH .USE WITH NICOTROL PRN PRN Reason: CRAVING Last Admin: 09/18/16 19:26 Dose: 1 each Dextrose (D50w Syringe 50 Ml*) 12.5 gm IV PUSH .FOR FS < 60 - SS PRN PRN Reason: FS < 60 Doxycycline Hyclate (Vibramycin Cap(*)) 100 mg PO BID NICOLASA Gabapentin (Neurontin Cap(*)) 100 mg PO TID [facility] Last Admin: 09/19/16 07:46 Dose: 100 mg Piperacillin Sod/Tazobactam (Sod 3.375 gm/ Sodium Chloride) 100 mls @ 25 mls/ hr IVPB Q12H [facility] Last Admin: 09/19/16 06:04 Dose: 25 mls/hr Insulin Glargine (Lantus(*)) 80 units SUBCUT DAILY [facility] Last Admin: 09/19/16 08:03 Dose: 80 units Insulin Glargine (Lantus(*)) 100 units SUBCUT 2100 [facility] Last Admin: 09/18/16 21:29 Dose: 100 units Insulin Human Lispro (Humalog*) 0 - 15 units SUBCUT Q4H N[facility]AS[facility] PRN Reason: Protocol Last Admin: 09/19/16 12:33 Dose: Not Given Insulin Human Regular (Insulin Regular(*)) 20 units SUBCUT 1930 [facility] Last Admin: 09/19/16 09:03 Dose: 20 units Isosorbide Mononitrate (Imdur Er Tab*) 60 mg PO QPM [facility] Last Admin: 09/18/16 17:12 Dose: 60 mg Losartan Potassium (Cozaar Tab*) 100 mg PO QPM [facility] Last Admin: 09/18/16 17:11 Dose: 100 mg Methadone HCl (Dolophine Tab*) 5 mg PO Q6H PRN PRN Reason: PAIN Methadone HCl (Dolophine Tab*) 10 mg PO Q6H PRN PRN Reason: PAIN Last Admin: 09/19/16 07:46 Dose: 10 mg Metoclopramide HCl (Reglan Tab*) 10 mg PO Q6H PRN PRN Reason: NAUSEA Last Admin: 09/19/16 06:09 Dose: 10 mg Mupirocin (Bactroban 2 % Oint*) 1 applic TOPICAL DAILY [facility] Last Admin: 09/19/16 09:53 Dose: Not Given Naproxen (Naprosyn Tab*) 250 mg PO Q6H PRN PRN Reason: PAIN Nicotine (Nicotine Inhaler*) 10 mg INH Q2H PRN PRN Reason: CRAVING Last Admin: 09/19/16 08:02 Dose: 10 mg Nicotine (Nicotine Patch 21 Mg/24 Hr*) 1 patch TRANSDERM DAILY@0800 [facility] Last Admin: 09/19/16 07:47 Dose: Not Given Omeprazole (Prilosec Cap*) 20 mg PO QPM [facility] Last Admin: 09/18/16 17:12 Dose: 20 mg Pharmacy Consult (Zosyn Per Pharmacy*) 1 note FOLLOW UP .ZOSYN PER PHARMACY [facility] Pharmacy Profile Note (Nicotine Patch Removal Note*) 1 note FOLLOW UP 2100 [facility] Last Admin: 09/18/16 21:40 Dose: 1 note Pharmacy Profile Note (Coumadin Daily Reminder*) 1 note FOLLOW UP 1700 [facility] Last Admin: 09/18/16 17:10 Dose: 1 note Pregabalin (Lyrica Cap(*)) 75 mg PO DAILY [facility] Last Admin: 09/19/16 07:46 Dose: 75 mg Warfarin Sodium (Coumadin Tab(*)) 2.5 mg PO DAILY@1700 [facility] PRN Reason: Protocol Vital Signs 09/19/16 09/19/16 09/19/16 03:46 07:33 07:46 Temperature 97.6 F 97.6 F Pulse Rate 77 93 Respiratory 16 16 17 Rate Blood Pressure 114/52 131/92 (mmHg) O2 Sat by Pulse 92 95 Oximetry Oxygen Devices in Use Now: None Appearance: Overweight lady, appears older than stated age, lying in bed in NAD. Has an open back of potato chips at her bedside. Eyes: No Scleral Icterus Ears/Nose/Mouth/Throat: Mucous Membranes Moist Neck: Trachea Midline Respiratory: Symmetrical Chest Expansion and Respiratory Effort, Clear to Auscultation Cardiovascular: RRR - Normal S1 and S2 Extremities: - - CDI to right foot Neurological: Alert and Oriented x 3, NL Muscle Strength and Tone Lines/Tubes/Other Access: Clean, Dry and Intact Peripheral IV Nutrition: Taking PO's Result Diagrams: 09/19/16 05:30 09/19/16 05:30 Assess/Plan/Problems-Billing Assessment: Mrs. Wright is a 36yo F with PMH of poorly controlled insulin dependent DM, ESRD on PD, diabetic neuropathy, CAD, HTN, HLD, PVD s/p, asthma, GERD, depression, anxiety, non compliance, who presented to ED with c/o right foot pain, admitted for pain control and further wound management. - Patient Problems (1) Diabetic foot ulcer Comment: - Multiple factors precluding healing at this time, but non compliance is the most important one. - Ortho input appreciated - recommended vascular team evaluation. - Seen by Dr. Serrano - recommended RLE arterial US to determine patency and exact location of stents. - Will consult Hematology re: heparin use. - ID input appreciated - continue Zosyn and doxycycline. (2) Foot pain, right Comment: - Reports significant pain relief with Methadone. - Will request Pain Management consult. (3) Diabetes Comment: - Last HgbA1c was 14.3 in June. - Despite repeated education patient remains non compliant - as per RN, patient had mac and cheese last night. Today she has a large bag of potato chips by her bed. - Continue Lantus and lispro SS. (4) ESRD (end stage renal disease) Comment: - Continue peritoneal dialysis. (5) PVD (peripheral vascular disease) Comment: - S/p right SFA/pop stenting and [place]jas. - Not compliant with Warfarin as evidenced by her INR. - Continue ASA and Warfarin. - Question of HIT on her last procedure at [place] - Hematology consult requested. (6) Tobacco abuse Comment: - Advised to quit smoking. - Continue Nicotine supplementation. (7) DVT prophylaxis Comment: - Heparin contraindicated until h/o possible HIT is clarified. Fondaparinux contraindicated due to ESRD. - SCDs. - Continue Warfarin, but not yet therapeutic. (8) Full code status Status and Disposition: Inpatient.
--- NOTE | 2016-09-19 14:52 | CONS ---
CONSULTATION REPORT: DATE OF CONSULT: 09/19/16 PROVIDER: GIOVANNI Manrique. CONSULTING SERVICE: Infectious Disease. REASON FOR CONSULT: Right foot pain. IMPRESSION: 1. Status post right transmetatarsal amputation with recent wound breakdown but significant improvement in healing since last admission and without soft tissue evidence of infection and no systemic symptoms of infection. 2. Right foot mild edema and pain. The pain is worse at night as the edema of the foot is worse. I wonder if edema is at least a component of her symptoms. 3. Endstage renal disease, on peritoneal dialysis. 4. Diabetes, insulin dependent. 5. Peripheral vascular disease, history of right lower extremity intervention. RECOMMENDATION: 1. We will stop the Zosyn and we will change her over to doxycycline to cover these gram-positives and some gram-negatives associated, if there is a component of soft tissue infection still. 2. Talha wrap or mild compression device to prevent fluid accumulation of right foot. HISTORY OF PRESENT ILLNESS: A 36-year-old with end-stage renal disease admitted with right foot pain. She has had a right transmetatarsal amputation for osteomyelitis and ischemic digits with gangrene in June 2016, that had been healing okay, she had developed some pain and breakdown of the wound and was admitted to the hospital in mid August, she left AMA, came back, left again. She was on Zosyn while she was here. A culture was taken. No organisms detected. An x-ray done September 06 showed no changes related to osteomyelitis. Pathology from the surgical procedure showed an ulcer in ulcer bed, soft tissue margins are viable, chronic osteomyelitis. She has had off and on severe right foot pain, it got much worse the last couple days, she does note that it swells throughout the day and is worse at night as is the pain. In the morning, it is a little bit improved. She has not tried any compression devices. She has had no trouble with peritoneal dialysis recently. PAST MEDICAL HISTORY: 1. Endstage renal disease, on peritoneal dialysis. 2. Diabetes, complicated by neuropathy and nephropathy. 3. Coronary artery disease. 4. Hypertension. 5. Hyperlipidemia. 6. Peripheral vascular disease, status post right lower extremity stent, June 2016. 7. Asthma. 8. GERD. 9. Depression. 10. Anxiety. 11. Diabetic retinopathy. 12. Cardiac catheterization. 13. Status post right great toe amputation and right transmetatarsal amputation. 14. Status post left eye enucleation and prosthesis placement. ALLERGIES: AMOXICILLIN/CLAVULANIC ACID, HEPARIN, FLAGYL, MORPHINE. MEDICATIONS: 1. Tylenol. 2. Albuterol. 3. Lipitor. 4. Insulin glargine. 5. Losartan. 6. Methadone. 7. Nicotine inhaler. 8. Nicotine patch. 9. Zosyn 3.375 g every 12 hours. 10. Warfarin 2.5 mg a day. 11. Amlodipine. SOCIAL HISTORY: She is a smoker. She lives outside [place] with her fiancee. No injection drugs. FAMILY HISTORY: No tuberculosis. REVIEW OF SYSTEMS: All negative to full review of systems except as noted above. PHYSICAL EXAM: Vital Signs: Temperature is 36, heart rate 70, respiratory rate 16, blood pressure 114/52, O2 sat 92% on room air. General: She is awake , not in distress. HEENT: There is no conjunctival hemorrhage. Oropharynx without lesions. Neck: Neck is supple. Lymph Nodes: There is no palpable or visible regional lymphadenopathy. Heart has regular rate and rhythm without murmurs, rubs, or gallops. Lungs are clear to auscultation bilaterally. Abdomen: Soft, obese, nontender. There is a peritoneal dialysis catheter in the right lower quadrant which is without surrounding erythema. She is hooked up to the PD bag. Skin: There is no rashes or splinter hemorrhage. Musculoskeletal: Right transmetatarsal amputation site is about half intact. There are a couple of other areas of 2 or 3 mm opening along the incision without fluctuance or erythema or serous drainage. LABORATORY DATA: Creatinine 5, potassium 4.9, white blood cell 9, hemoglobin 12 , platelets 270. Please see impressions and recommendations outlined above, which I have discussed with Dr. Ojeda. Thanks for asking me to see Ms. Wright in consultation. [id number]/[facility] #: [id number] VIRI
[2016-09-19] MEDS ORDERED: Warfarin TAB(*) 2.5 MG PO SCH (17:00)
[2016-09-19] MEDS: Losartan TAB* 25 MG PO SCH (18:12)
[2016-09-19] MEDS: amLODIPine TAB* 5 MG PO SCH (18:13)
[2016-09-19] MEDS: Atorvastatin* 80 MG TAB PO SCH (18:13)
[2016-09-19] MEDS: Omeprazole CAP* 20 MG PO SCH (18:13)
[2016-09-19] MEDS: Isosorbide Mononitrate ER TAB* 60 MG PO SCH (18:13)
[2016-09-19] MEDS: Insulin GLARGINE(*) 1 UNITS UNIT SUBCUT SCH (20:47)
[2016-09-19] MEDS: DOXYcycline CAP(*) 100 MG PO SCH (20:47)
[2016-09-19] MEDS: Nicotine Patch Removal NOTE FOLLOW UP SCH (20:52)
[2016-09-19] MEDS: Methadone TAB* 5 MG PO PRN (22:00)
--- NOTE | 2016-09-19 23:34 | CONS ---
MEDICAL ONCOLOGY/HEMATOLOGY CONSULTATION NOTE: DATE OF CONSULTATION: 09/19/16 REASON FOR CONSULTATION: Question of heparin-induced thrombocytopenia syndrome , earlier this year at [facility]. HISTORY OF PRESENT ILLNESS: This is a focused consult and history related to her previous vascular issues and question of prior HIT. Margaux Wright is a 36- year- old female with a longstanding history of poorly controlled insulin- dependent diabetes mellitus along with end-stage renal disease. She is on peritoneal dialysis for approximately last 3 to 4 years. She is status post arterial stenting procedure at [facility] in May 2016. She is also status post recent transmetatarsal right foot amputation by Dr. Garcia. She has had multiple hospitalizations both here and at [facility] with multiple times of signing out AMA due to concern about pain control. She is admitted at this time with right foot pain. She had previously been receiving broad spectrum antibiotics and there is a question of revision of the prior amputation site. On June 18, 2016, the patient was taken to operating room for right lower extremity angiogram and received a right superficial femoral artery bare metal stent and right AK popliteal bare metal stent. Right superficial femoral artery and right popliteal and right peroneal balloon angioplasty with TPA thrombolysis into the right peroneal artery. The patient returned to the operating room after she was in the recovery unit when she lost the pulse in her leg, which was confirmed with ultrasound studies. Another stent was placed in the right superior femoral superficial femoral artery followed by balloon angioplasty of the right superficial femoral artery and right peroneal artery. She was found to have an occluded right superficial femoral artery stent. She received clopidogrel 300 mg between the two operations and heparin during the operation. 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 The screening test was positive, but confirmatory serotonin test came back negative after the patient left the hospital AMA. The patient had received bivalirudin and had been started on apixaban for suspected HIT. The patient was not approved for apixaban due to insurance issues and subsequently approved for rivaroxaban and Coumadin. She did take Eliquis for a period of time , but then had insurance not approve this medication. She reports being off any of these anticoagulants for a period of several weeks and she reports being only started by Dr. Solis on Coumadin approximately 2 to 3 days ago. She has continued to use peritoneal dialysis since the time of this episode in May, but has not used any heparin or any other anticoagulants with her peritoneal dialysis and reports having had significant problems with fibrin clogging the peritoneal dialysis on multiple occasions. Laboratory studies on arrival here had included an INR of 0.9 on 09/18/16, but she reports this was only 2 or 3 days after starting Coumadin at a dose of 2.5 mg daily. At the present time, we do not have the records from the prior hospitalization in terms of labs to know if she truly had HIT or not. This will be extremely important as, if the patient is going to have any further stenting procedures, a decision will need to be made on what anticoagulants could be used at that time. If it truly looks as though she did have HIT, then recommendation would be to use argatroban assuming we have the proper laboratory studies available to monitor in that situation. As opposed to the typical use of activated PTT to monitor dose of argatroban in the setting of acute stenting, recommendations are to use activated clotting times. We will have to check with our lab here to see if this lab is available or if we need to find out a more definitive way of deciding on the proper dose of argatroban for her if this were to be a decision going forward. It is unclear to me whether she truly did have HIT or not, she had received heparin intravenously for several days approximately 1 month prior to the episode of reported HIT per her recollection in an attempt to save vascular supply to the leg. In addition, she has been using heparin on a daily basis with her peritoneal dialysis for several years. It is reported that she had an initial positive test for HIT and then a negative confirmatory test with serotonin. While serotonin has often been considered to be the gold standard test, it in and of itself is also not 100% accurate. It reportedly has a sensitivity and specificity of over 95% when used in an experienced lab, but in other labs has much less accuracy than that. Given this , it may be necessary to consider any positive test to be a true positive if we actually get those reports back. At the present time, we will need to await laboratory results arriving from [facility] before making any further recommendations. The patient's understanding of the above and further recommendations will follow once this laboratory test is available. [id number]/[facility] #: [id number] [facility]
[2016-09-20] MEDS: Insulin LISPRO* 1 UNITS UNIT SUBCUT SCH ×4 (00:52→12:22)
[2016-09-20] MEDS: Methadone TAB* 5 MG PO PRN ×3 (04:25→12:01)
[2016-09-20] MEDS: ZOSYN 3.375 GM Q12H per EXTENDED INFUSION IVPB SCH ×2 (05:27)
--- NOTE | 2016-09-20 08:26 | RAD ---
INDICATION: Poorly healing right foot transmetatarsal amputation site. COMPARISON: WILLIAM dated September 18, 2016 TECHNIQUE: Dillard scale, color Doppler, and spectral analysis utilized to image the right lower extremity arteries. Flow velocities were determined at each visualized artery. REPORT: The right common femoral artery, proximal femoral profundus, superficial femoral artery and popliteal artery exhibited patency. There are stents in the proximal SFA and more distally in the distal SFA extending into the superior portion of the popliteal artery that exhibit patency. There is patency in the distal popliteal artery and tibioperoneal trunk. The proximal infrapopliteal arteries exhibit adequate patency with increased velocity measured at the proximal peroneal artery of 149 cm/s. There is increasingly diminutive and low velocity flow at the mid-level and more inferior infrapopliteal arteries. IMPRESSION: 1. There are 2 right lower extremity stents, one in the proximal SFA and a second stent in the distal SFA extending into the popliteal artery that appear to be patent. 2. There is increasingly diminutive and low velocity flow in the mid-level and distal infrapopliteal arteries consistent with infrapopliteal/small vessel arterial insufficiency.
[2016-09-20] MEDS: Nicotine PATCH 21 MG/24 HR* PATCH TRANSDERM SCH (08:44)
[2016-09-20] MEDS: Mupirocin 2% OINT* TUBE TOPICAL SCH (08:44)
[2016-09-20] MEDS: Aspirin Low Dose CHEW TAB* 81 MG PO SCH (08:58)
[2016-09-20] MEDS: Pregabalin CAP(*) 25 MG PO SCH (08:58)
[2016-09-20] MEDS: DOXYcycline CAP(*) 100 MG PO SCH (08:58)
[2016-09-20] MEDS: Gabapentin CAP(*) 100 MG PO SCH (08:58)
[2016-09-20] MEDS: Insulin GLARGINE(*) 1 UNITS UNIT SUBCUT SCH (08:59)
[2016-09-20] MEDS: Nicotine Inhaler* 10 MG AMP INH PRN ×2 (09:01→12:07)
--- NOTE | 2016-09-20 09:09 | PN ---
Progress Note - Progress Note Date of Service: 09/20/16 SOAP: Subjective: Patient seen at bedside, she is sitting up eating breakfast. She states her pain is gone today and is better managed with the methadone. Dressing was changed today. She states that she is feeling "antsy" today and is thinking of going home AMA. Objective: Left foot dressing changed today. 2 wound are apparent. Lateral wound appears dry and crusted, No discharge is apparent from lateral wound. Medial wound has packing removed. Edges of lateral wound appear slightly necrotic. Yellowish discharge is apparent within the wound. Assessment: []Poorly healing TMA incision left foot Pain management Plan: []Currently on Zosyn and Doxycycline per Dr. Benavidez Continue BID betadine dressing changes Awaiting for vascular consultation results.
--- NOTE | 2016-09-20 10:47 | PN ---
Progress Note - Progress Note Date of Service: 09/20/16 SOAP: Subjective: CC: foot pain HPI: 36 yo woman with R foot pain after TMA; pain now resolved with methadone and elevation. No drainage from incision. No fever, rash, or diarrhea. Objective: [] Vital Signs Temp 36.7 C 09/20/16 07:23 Pulse 104 09/20/16 07:23 Resp 18 09/20/16 08:58 BP 130/111 09/20/16 07:23 Pulse Ox 94 09/20/16 07:23 Intake & Output 09/19/16 09/20/16 09/20/16 18:59 06:59 18:59 Intake Total 760 690 700 Output Total 200 Balance 760 490 700 Weight 222 lb Intake: IV Fluids 20 30 NS (0.9%) 20 30 IVPB 110 100 ABX - ZOSYN 110 100 Oral 630 560 700 Output: Urine 200 Other: Estimated Void Small # Bowel Movements 3 2 Estimated Stool Amount Small Medium # Voids 0 1 1 Gen:awake, no distress HEENT:PERRL, MMM Neck:Supple Heart:RRR no murmur Lungs:CTA BL Abd:+BS NTND soft Skin: no rash MSK: R TMA site intact no erythema or drainage; trace edema Laboratory Results - last 24 hr 09/19/16 09/19/16 09/19/16 12:11 16:00 20:28 INR (Anticoag Therapy) POC Glucose (mg/dL) 98 70 L 408 H* 09/19/16 09/20/16 09/20/16 23:58 04:20 05:22 INR (Anticoag Therapy) 0.89 POC Glucose (mg/dL) 141 H 134 H 09/20/16 07:42 INR (Anticoag Therapy) POC Glucose (mg/dL) 142 H Assessment: 1. R foot pain; due to recent infection, suspect partially due to edema as well 2. R foot osteomyelitis s/p TMA 3. ESRD/PD 4. DM with neuropathy Plan: 1. continue doxycycline 100 mg po bid for [address] Daigle
[2016-09-20 11:57] VITALS: BP 115/40
[2016-09-20] MEDS ORDERED: Warfarin TAB(*) 4 MG PO SCH (17:00)
--- NOTE | 2016-09-21 11:37 | DS ---
DISCHARGE SUMMARY: DATE OF ADMISSION: 09/18/16 DATE OF DISCHARGE: 09/20/16 NOTE: Please note the patient was not officially discharged. She left against medical advice. CONSULTANTS INVOLVED IN PATIENT'S CARE: Included: 1. Dr. Benavidez, Infectious Diseases. 2. Dr. Garcia, Orthopedic Surgery. 3. Dr. Johnston, Oncology. 4. Dr. Serrano, Interventional Radiology. Consults pending at the time of the patient leaving against medical advice included Pain Management consult from Dr. Lion. MEDICATIONS AT DISCHARGE: Unchanged from admission. The patient refused to have doxycycline prescribed at discharge as recommended by Dr. Benavidez. She is planning to continue her previous medications as prescribed at home previously. HOSPITALIZATION COURSE: Ms. Wright is a 36-year-old female with history of peripheral vascular disease with PTCA and stenting performed at [facility] earlier this year on her right lower extremity. Subsequently, the patient had right transmetatarsal full amputation by Dr. Garcia. She has poor wound healing and she came in to the hospital complaining of right foot pain. Dr. Garcia saw the patient in surgical consultation and noted that the patient has a non-healing right foot ulcer with multiple factors contributing, including uncontrolled diabetes with hemoglobin A1c of 14 as well as vascular insufficiency. Dr. Serrano was consulted from Interventional Radiology. It was noted by Dr. Serrano that the patient has history of peripheral vascular disease that was intervened on the right foot by vascular specialist at [facility]. 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 It was recommended for the patient to follow up with her vascular surgeons in [facility] for further management of her vascular insufficiency, it was deemed not to be emergent by Dr. Serrano. In regards to a possibility of foot infection, Dr. Benavidez saw the patient from Infectious Diseases and noted chronic wound infection and recommended 2 weeks of outpatient doxycycline treatment, which the patient refused to have prescribed at discharge. In regards to the patient's possibility of heparin-induced thrombocytopenia, we are still in the process of obtaining the values from [facility], which included antiplatelet antibodies and a serotonin assay. At this point, Dr. Johnston saw the patient in consultation and I discussed the case with Dr. Rivero today. The recommendation is to continue Coumadin and consideration for other anticoagulants may be necessary once the patient undergoes another revascularization. At this point, the patient is signing out against medical advice and she is going to be continuing Coumadin and plans to see Dr. Solis tomorrow in the office. In regards to pain management, the patient was placed on methadone as per recommendation of Dr. Marrufo and did very well. She stated that the pain was controlled. The patient was awaiting Dr. Lion's consult today, but she got too impatient and she cannot wait anymore. I discussed with the patient that as per my discussion with Dr. Lion, the patient will need to wait for 3 months to be evaluated as outpatient in the pain clinic. The patient is aware of that, but she is not willing to wait another couple of hours for Dr. Lion 's consult and she is leaving against medical advice. The patient stated that she is planning to follow up with Dr. Solis tomorrow for a followup. Please note that this is a short summary of the patient's hospital stay. The patient is leaving against medical advice right now. TIME SPENT: Approximately 32 minutes was spent on discharge of this patient. [id number]/[facility] #: [id number] [facility]
== END 2016-09-20 14:10 | disposition left against medical advice (07) | DRG 813 ==
LOC: ED 12:04 → MED 14:24
PROVIDERS: ADMIT Hospitalist; ATTEND Internal Medicine
PROC: 3E1M39Z Irrigation of Peritoneal Cavity using Dialysate, Percutaneous Approach (ICD-10-PCS; principal; 2016-09-18)
DX: T81.89XA Other complications of procedures, not elsewhere classified, initial encounter (principal); N18.6 End stage renal disease; I12.0 Hypertensive chronic kidney disease with stage 5 chronic kidney disease or end stage renal disease; T87.43 Infection of amputation stump, right lower extremity; D75.82 Heparin induced thrombocytopenia (HIT); E11.22 Type 2 diabetes mellitus with diabetic chronic kidney disease; E11.621 Type 2 diabetes mellitus with foot ulcer; E11.65 Type 2 diabetes mellitus with hyperglycemia; E11.51 Type 2 diabetes mellitus with diabetic peripheral angiopathy without gangrene; L97.519 Non-pressure chronic ulcer of other part of right foot with unspecified severity; T45.515A Adverse effect of anticoagulants, initial encounter; E11.42 Type 2 diabetes mellitus with diabetic polyneuropathy; E78.5 Hyperlipidemia, unspecified; K21.9 Gastro-esophageal reflux disease without esophagitis; J45.909 Unspecified asthma, uncomplicated; F32.9 Major depressive disorder, single episode, unspecified; F41.9 Anxiety disorder, unspecified; I25.10 Atherosclerotic heart disease of native coronary artery without angina pectoris; F17.210 Nicotine dependence, cigarettes, uncomplicated; Y65.8 Other specified misadventures during surgical and medical care; Z99.2 Dependence on renal dialysis; Z79.4 Long term (current) use of insulin; Z89.431 Acquired absence of right foot; Y92.9 Unspecified place or not applicable
CPT/HCPCS: 36415; 80048; 80053; 82947; 83605; 85025; 85610; 85730; 86140; 90945; 93922; 99406; A9270-GY; G0257; J2543

== ENCOUNTER 2016-10-02 15:26 | Emergency (ER) | payer OTHER ==
[2016-10-02 16:15] VITALS: BP 108/58
[2016-10-02] MEDS ORDERED: NS 0.9% 1000 ML*IV.FLUID IV ONE (16:35)
[2016-10-02] MEDS ORDERED: Cefepime(*) 1 GM in NS 0.9% 50 ML* 50 ML IVPB ONE (17:00)
[2016-10-02 17:06] LABS: Hematocrit 43 % (35-47); Hemoglobin 14.2 g/dl (12.0-16.0); Mean Corpuscular HGB Conc 33 g/dl (31-36); Mean Corpuscular Hemoglobin 31 pg (27-31); Mean Corpuscular Volume 93 fL (80-97); Mean Platelet Volume 9 um3 (7.4-10.4); Red Blood Count 4.56 10^6/ul (4.0-5.4); Red Cell Distribution Width 17 % (10.5-15)
[2016-10-02 17:21] LABS: Albumin 3.3 g/dL (3.2-5.2); BUN/Creatinine Ratio 5.9 (8-20); C Reactive Protein 22.07 mg/L (< 5.00); Calcium 8.8 mg/dL (8.6-10.3); EGFR African American 9.9 (>60); EGFR Non-African American 7.7 (>60); Globulin 3.1 g/dL (2-4); Potassium 3.9 mmol/L (3.5-5.0); Total Bilirubin 0.4 mg/dL (0.2-1.0); Total Protein 6.4 g/dL (6.4-8.9)
[2016-10-02 17:24] LABS: Troponin I 0.08 ng/mL (<0.04)
[2016-10-02] MEDS ORDERED: NS 0.9% 50 ML* 50 ML ONE (18:00)
[2016-10-02] MEDS ORDERED: Insulin REGULAR(*) 1 UNITS UNIT SUBCUT ONE (18:03)
[2016-10-02 18:24] LABS: Erythrocyte Sed Rate 35 mm/Hr (0-14)
--- NOTE | 2016-10-02 18:36 | RAD ---
INDICATION: Cough and hypotension COMPARISON: Most recent comparison chest x-rays September 06, 2016 TECHNIQUE: Single AP portable view of the chest was obtained. FINDINGS: Image quality is compromised due to the relative inferiority of a portable chest x-ray. The heart and mediastinum exhibit normal size and contour. The lungs are grossly clear. There is no evidence of a large pleural effusion. Visualized bones are normal for the patient's age. IMPRESSION: No radiographic evidence for acute cardiopulmonary abnormality on this portable chest x-ray.
--- NOTE | 2016-10-02 20:29 | RAD ---
INDICATION: Hypotension and poor wound healing status post right transmetatarsal amputation COMPARISON: Similar radiograph dated August 30, 2016 TECHNIQUE: 2 views of the right foot were obtained. FINDINGS: The patient is status post right foot transmetatarsal amputation. The visualized bones are otherwise intact and appropriately aligned. Advanced calcified atherosclerosis is seen of the distal infrapopliteal and pedal arteries. IMPRESSION: POSTOPERATIVE FINDINGS AND ADVANCED CALCIFIED VASCULOPATHY HAS DESCRIBED ABOVE.
--- NOTE | 2016-10-03 08:07 | ED ---
Yolette Palacio Alfonso, scribed for Jeffery Christine MD on 10/02/16 at 1628 . Complex/Multi-Sys Presentation - HPI Summary HPI Summary: This patient is a 36 year old F presenting to [facility] accompanied by boyfriend with a chief complaint of weakness since earlier today. She states while at rest my blood pressure was really low and I passed out. The patient rates the aching pain 2/10 in severity. Symptoms aggravated and alleviated by nothing. Patient reports CP (for a few minutes when her blood pressure was low), syncope , headache, tiredness, dizziness, lightheadedness, nausea, diarrhea (soft stools ), and low blood pressure (60/33 per what her boyfriend checked at home). Patient denies fever, chills, vomiting, and SOB. She reports blood pressure medication noncompliance for two months. She had a partial foot amputation in June. PSHx of partial amputation of right toes in 06/2016. PMHx DM, CAD, HLD, HTN , COPD, GERD, sleep apnea, renal failure, arthritis, vision loss, and anxiety. - History Of Current Complaint Chief Complaint: EDWeakness Time Seen by Provider: 10/02/16 16:21 Hx Obtained From: Patient, Family/Sr Vice President - Boyfriend Onset/Duration: Sudden Onset, Lasting Hours - Earlier today, Still Present Timing: Constant Severity Currently: Moderate Severity Initially: Mild Character: Dull - Aching Aggravating Factor(s): Nothing. Alleviating Factor(s): Nothing. Associated Signs And Symptoms: Positive: Other - Patient reports CP (for a few minutes when her blood pressure was low), syncope, headache, tiredness, dizziness, lightheadedness, nausea, diarrhea (soft stools), and low blood pressure (60/33 per what her boyfriend checked at home). Patient denies fever, chills, vomiting, and SOB. - Allergies/Home Medications Allergies/Adverse Reactions: Allergies Allergy/AdvReac Type Severity Reaction Status Date / Time Amoxicillin [From Augmentin] Allergy See Comment Verified 10/02/16 15:39 Clavulanic Acid Allergy See Comment Verified 10/02/16 15:39 [From Augmentin] Heparin Allergy See Comment Verified 10/02/16 15:39 Metronidazole [From Flagyl] Allergy Nausea And Verified 10/02/16 15:39 Vomiting Morphine Allergy See Comment Verified 10/02/16 15:39 Ropinirole [From Requip] Allergy Hives Verified 10/02/16 15:39 Sulfamethoxazole Allergy Nausea And Verified 10/02/16 15:39 w/Trimethoprim Vomiting [From Bactrim] Codeine AdvReac Nausea And Verified 10/02/16 15:39 Vomiting Erythromycin AdvReac "DOESN'T Verified 10/02/16 15:39 WORK" Niacin AdvReac Hives Verified 10/02/16 15:39 plastic tape Allergy Blisters Uncoded 10/02/16 15:39 Home Medications: Home Medications Methadone TAB* [Dolophine TAB*] 10 mg PO Q6H PRN 10/02/16 [History Confirmed 10/11] PMH/Surg Hx/FS Hx/Imm Hx Endocrine/Hematology History: Reports: Hx Anticoagulant Therapy - Aspirin., Hx Blood Transfusions, Hx Diabetes, Hx Thyroid Disease - nodule biopsied, normal, Hx Anemia - hx of - reports had tranfusion in 2013 after mi Cardiovascular History: Reports: Hx Angina, Hx Cardiac Arrest - in 2013 with CPR, Hx Cardiomegaly, Hx Coronary Artery Disease, Hx Hypercholesterolemia, Hx Hypertension, Hx Myocardial Infarction, Other Cardiovascular Problems/ Disorders - hyperlipidemia, CAD Denies: Hx Congestive Heart Failure, Hx Deep Vein Thrombosis, Hx Pacemaker/ ICD, Hx Valvular Heart Disease Respiratory History: Reports: Hx Asthma, Hx Chronic Obstructive Pulmonary Disease (COPD) - smoker, Hx Sleep Apnea - pt reports md thinks, but no official testing done yet, Other Respiratory Problems/Disorders - acute respipatory failure with hypoxia - jan 2016 Denies: Hx Lung Cancer, Hx Pneumonia, Hx Pulmonary Embolism GI History: Reports: Hx Gastroesophageal Reflux Disease, Other GI Disorders - GASTROPARESIS - TAKING OMEPRAZOLE Denies: Hx Gall Bladder Disease, Hx Gastrointestinal Bleed, Hx Ulcer, Hx Urosepsis History: Reports: Hx Acute Renal Failure, Hx Chronic Renal Failure, Hx Dialysis - PERITONEAL, Hx Kidney Stones - in past, Hx Renal Disease - ESRD on home peritoneal dialysis , Other Problems/Disorders - ESRD- URINATES A SMALL AMOUNT Musculoskeletal History: Reports: Hx Arthritis - back, hips, Hx Back Problems - Sciatica and Herniated L3 disk Sensory History: Reports: Hx Eye Prosthesis - left, 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, Hx Vision Problem Denies: Hx Contacts or Glasses, Hx Hearing Aid Opthamlomology History: Reports: Hx Eye Prosthesis - left, 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, Hx Vision Problem Denies: Hx Contacts or Glasses Neurological History: Reports: Other Neuro Impairments/Disorders - neuropathy Denies: Hx Transient Ischemic Attacks (TIA) Psychiatric History: Reports: Hx Anxiety, Hx Depression, Hx Bipolar Disorder Denies: Hx Eating Disorder, Hx Panic Disorder, Hx Schizophrenia, Hx of Violent Episodes Against Others - Cancer History Cancer Type, 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 MELANOMA REMOVED FROM [facility] 2012 (PROCEDURE DONE 4X);. CARDIAC CATH 2013 - NO STENTS;. LEFT WRIST FISTULA PLACEMENT ([facility]) 2013;. HEMODIALYSIS CATH RIGHT CHEST WALL 2013;. PERITONEAL DIALYSIS CATH 03/2014;. CHEST WALL CATH REMOVAL 08/2015 [facility] [place];. RIGHT GREAT TOE AMPUTATION, [facility] 05/2015;. PLACEMENT RIGHT JUGULAR TESIO HEMODIALYSIS CATHETER [facility] 10/22/2015;. REMOVAL OF JUGULAR CATH - OCT 2015. CARDIAC CATH - stentsx2 right leg. PARTIAL AMPUTATION RIGHT TOES 06/2016 Hx Anesthesia Reactions: No - Immunization History Date of Tetanus Vaccine: UTD Date of Influenza Vaccine: 10/10/15 Infectious Disease History: No Infectious Disease History: Reports: Hx of Known/Suspected MRSA - MRSA R 1st toe Denies: Hx Clostridium Difficile, Hx Hepatitis, Hx Human Immunodeficiency Virus (HIV), Hx Shingles, Hx Tuberculosis, History Other Infectious Disease, Traveled Outside the [place] in Last 30 Days - Family History Known Family History: Positive: Cardiac Disease - father DC at 42 y/o, Hypertension, Other - Positive for bipolar and depression. Completed suicide to sister. - Social History Alcohol Use: None Hx Substance Use: No Substance Use Type: Reports: None Substance Use Comment - Amount & Last Used: using chantix to quit smoking Hx Tobacco Use: Yes Smoking Status (MU): Current Every Day Smoker Type: Cigarettes Amount Used/How Often: 1 PPD Length of Time of Smoking/Using Tobacco: 20 YEARS Have You Smoked in the Last Year: Yes Review of Systems Positive: Other - Positive low blood pressure (60/33 per what her boyfriend checked at home). Negative: Fever, Chills Positive: Chest Pain - for a few minutes when her blood pressure was low Negative: Shortness Of Breath Positive: Diarrhea - Soft stools, Nausea. Negative: Vomiting Neurological: Other - Positive weakness, syncope, headache, tiredness, dizziness , lightheadedness. All Other Systems Reviewed And Are Negative: Yes Physical Exam - Summary Physical Exam Summary: VITAL SIGNS: Reviewed. GENERAL: Patient is an obese female who is lying comfortable in the stretcher. Patient is not in any acute respiratory distress. HEAD AND FACE: No signs of trauma. No ecchymosis, hematomas or skull depressions. No sinus tenderness. EYES: PERRLA, EOMI x 2, No injected conjunctiva, no nystagmus. EARS: Hearing grossly intact. Ear canals and tympanic membranes are within normal limits. MOUTH: Oropharynx within normal limits. NECK: Supple, trachea is midline, no adenopathy, no JVD, no carotid bruit, no c- spine tenderness, neck with full ROM. CHEST: Symmetric, no tenderness at palpation LUNGS: Clear to auscultation bilaterally. No wheezing or crackles. CVS: Regular rate and rhythm, S1 and S2 present, no murmurs or gallops appreciated. ABDOMEN: Soft, non-tender. No signs of distention. No rebound no guarding, and no masses palpated. Bowel sounds are normal. EXTREMITIES: Right foot toe amputations with packing in the wound. There is no discharge. However, there is increase warmth in the right foot. NEURO: Alert and oriented x 3. No acute neurological deficits. Speech is normal and follows commands. SKIN: Dry and warm Triage Information Reviewed: Yes Vital Signs On Initial Exam: Initial Vitals Temp Pulse Resp BP Pulse Ox 97.8 F 102 20 106/55 92 10/02/16 15:39 10/02/16 15:39 10/02/16 15:39 10/02/16 15:39 10/02/16 15:39 Vital Signs Reviewed: Yes - [facility] Coma Scale Coma Scale Total: 15 Diagnostics - Vital Signs Vital Signs Temp Pulse Resp BP Pulse Ox 10/02/16 16:02 97.4 F 94 14 108/58 91 10/02/16 15:39 97.8 F 102 20 106/55 92 - Laboratory Lab Results: Lab Results 10/02/16 10/02/16 10/02/16 Range/Units 16:55 16:55 16:55 WBC 11.0 H (3.5-10.8) 10^3/ul RBC 4.56 (4.0-5.4) 10^6/ul Hgb 14.2 (12.0-16.0) g/dl Hct 43 (35-47) % MCV 93 (80-97) fL MCH 31 (27-31) pg MCHC 33 (31-36) g/dl RDW 17 H (10.5-15) % Plt Count 277 (150-450) 10^3/ul MPV 9 (7.4-10.4) um3 Neut % (Auto) 79.2 (38-83) % Lymph % (Auto) 12.9 L (25-47) % [place] % (Auto) 4.9 (1-9) % Eos % (Auto) 2.1 (0-6) % Baso % (Auto) 0.9 (0-2) % Absolute Neuts (auto) 8.7 H (1.5-7.7) 10^3/ul Absolute Lymphs (auto) 1.4 (1.0-4.8) 10^3/ul Absolute Monos (auto) 0.5 (0-0.8) 10^3/ul Absolute Eos (auto) 0.2 (0-0.6) 10^3/ul Absolute Basos (auto) 0.1 (0-0.2) 10^3/ul Absolute Nucleated RBC 0.01 10^3/ul Nucleated RBC % 0 ESR 35 H (0-14) mm/Hr INR (Anticoag Therapy) 0.90 (0.89-1.11) APTT 31.6 (26.0-36.3) seconds Sodium 129 L (133-145) mmol/L Potassium 3.9 (3.5-5.0) mmol/L Chloride 91 L (101-111) mmol/L Carbon Dioxide 28 (22-32) mmol/L Anion Gap 10 (2-11) mmol/L BUN 36 H (6-24) mg/dL Creatinine 6.12 H (0.51-0.95) mg/dL Est GFR ( Amer) 9.9 (>60) Est GFR (Non-Af Amer) 7.7 (>60) BUN/Creatinine Ratio 5.9 L (8-20) Glucose 433 H (70-100) mg/dL Lactic Acid (0.5-2.0) mmol/L Calcium 8.8 (8.6-10.3) mg/dL Total Bilirubin 0.40 (0.2-1.0) mg/dL AST 5 L (13-39) U/L ALT 6 L (7-52) U/L Alkaline Phosphatase 107 H (34-104) U/L Total Creatine Kinase 77 (10-223) U/L Troponin I 0.08 H* (<0.04) ng/mL C-Reactive Protein 22.07 H (< 5.00) mg/L B-Natriuretic Peptide ( - 100) pg/mL Total Protein 6.4 (6.4-8.9) g/dL Albumin 3.3 (3.2-5.2) g/dL Globulin 3.1 (2-4) g/dL Albumin/Globulin Ratio 1.1 (1-3) 10/02/16 10/02/16 Range/Units 16:55 16:55 WBC (3.5-10.8) 10^3/ul RBC (4.0-5.4) 10^6/ul Hgb (12.0-16.0) g/dl Hct (35-47) % MCV (80-97) fL MCH (27-31) pg MCHC (31-36) g/dl RDW (10.5-15) % Plt Count (150-450) 10^3/ul MPV (7.4-10.4) um3 Neut % (Auto) (38-83) % Lymph % (Auto) (25-47) % [place] % (Auto) (1-9) % Eos % (Auto) (0-6) % Baso % (Auto) (0-2) % Absolute Neuts (auto) (1.5-7.7) 10^3/ul Absolute Lymphs (auto) (1.0-4.8) 10^3/ul Absolute Monos (auto) (0-0.8) 10^3/ul Absolute Eos (auto) (0-0.6) 10^3/ul Absolute Basos (auto) (0-0.2) 10^3/ul Absolute Nucleated RBC 10^3/ul Nucleated RBC % ESR (0-14) mm/Hr INR (Anticoag Therapy) (0.89-1.11) APTT (26.0-36.3) seconds Sodium (133-145) mmol/L Potassium (3.5-5.0) mmol/L Chloride (101-111) mmol/L Carbon Dioxide (22-32) mmol/L Anion Gap (2-11) mmol/L BUN (6-24) mg/dL Creatinine (0.51-0.95) mg/dL Est GFR ( Amer) (>60) Est GFR (Non-Af Amer) (>60) BUN/Creatinine Ratio (8-20) Glucose (70-100) mg/dL Lactic Acid 2.1 H* (0.5-2.0) mmol/L Calcium (8.6-10.3) mg/dL Total Bilirubin (0.2-1.0) mg/dL AST (13-39) U/L ALT (7-52) U/L Alkaline Phosphatase (34-104) U/L Total Creatine Kinase (10-223) U/L Troponin I (<0.04) ng/mL C-Reactive Protein (< 5.00) mg/L B-Natriuretic Peptide 153 H ( - 100) pg/mL Total Protein (6.4-8.9) g/dL Albumin (3.2-5.2) g/dL Globulin (2-4) g/dL Albumin/Globulin Ratio (1-3) Result Diagrams: 10/02/16 16:55 10/02/16 16:55 Lab Statement: Any lab studies that have been ordered have been reviewed, and results considered in the medical decision making process. - Radiology CXR Radiology Interpretation Completed By: Radiologist - No radiographic evidence for acute cardiopulmonary abnormality on this portable chest x-ray. Foot X-Ray Radiology Interpretation Completed By: Radiologist - Pending offical interpretation at this time. - EKG 1550 Cardiac Rate: NL - BPM 95 EKG Rhythm: Sinus Rhythm ST Segment: Normal Re-Evaluation - Re-Evaluation First Eval Re-Evaluation Time: 17:40 Comment: Patient is refusing IV access. Complex Multi-Symp Course/Dx Course Of Treatment: This patient is a 36 year old F presenting to [facility] accompanied by boyfriend with a chief complaint of weakness since earlier today. She states while at rest my blood pressure was really low and I passed out. The patient rates the aching pain 2/10 in severity. Symptoms aggravated and alleviated by nothing. Patient reports CP (for a few minutes when her blood pressure was low), syncope, headache, tiredness, dizziness, lightheadedness, nausea, diarrhea (soft stools), and low blood pressure (60/33 per what her boyfriend checked at home). Patient denies fever, chills, vomiting, and SOB. She reports blood pressure medication noncompliance for two months. She had a partial foot amputation in June. PSHx of partial amputation of right toes in 2016. PMHx DM, CAD, HLD, HTN, COPD, GERD, sleep apnea, renal failure, arthritis , vision loss, and anxiety. In the ED course an IV access was obtained. Patient was placed in a power generation technician. Patient was started with IV fluids since patient is hypotensive and slightly tachycardic. She seems to be dehydrated and since she reports fevers at home she was started in broad spectrum antibiotics. She was started in Cefepime. Labs within normal limits except for WBC 11, Na 129, BUN 36, creatinine 6.12, glucose 433, lactic acid 2.1 troponin 0.8 and CRP 22. Troponin #1: and Troponin # 2 (4 hours later) : EKG shows a NSR at w/o ST elevations. CXR IMPRESSION: No radiographic evidence for acute cardiopulmonary abnormality on this portable chest x-ray. Foot x-ray IMPRESSION: POSTOPERATIVE FINDINGS AND ADVANCED CALCIFIC VASCULOPATHY HAS DESCRIBED ABOVE. She was also given Insulin for her hyperglycemia. I discussed the case with Dr. Carpio who accepted the patient for admission. Patient is A+OX 3. - Diagnoses Provider Diagnoses: Hypotension, Hyperglycemia, Dehydration, Increase troponin r/o ACS, Acute on chronic renal failure - Physician Notifications Discussed Care Of Patient With: Luis Marrufo Time Discussed With Above Provider: 17:48 Instructed by Provider To: Other - Consulted Dr. Marrufo (swaging machine adjuster) who recommends that since the patient refuses IV acess, she should follow up with a peritoneal nurse tomorrow and drink chicken broth. Consulted Dr. Dorsey ( hospitalist) who agrees to admit. Discharge - Discharge Plan Condition: Stable Disposition: ADMITTED TO [facility] Referrals: Aishwarya Solis MD [Primary Care Provider] - 3 Days The documentation as recorded by the Yolette sexton Alfonso accurately reflects the service I personally performed and the decisions made by me, Jeffery Christine MD.
== END 2016-10-02 19:02 | disposition short-term general hospital (02) ==
LOC: ED 15:26
DX: I95.9 Hypotension, unspecified (principal); R73.9 Hyperglycemia, unspecified; R07.9 Chest pain, unspecified; N18.9 Chronic kidney disease, unspecified; R19.7 Diarrhea, unspecified; E86.0 Dehydration
CPT/HCPCS: 36415; 71010; 80053; 82550; 83605; 83880; 84484; 85025; 85610; 85652; 85730; 86140; 87040; 93005; 96360; 99283; J0692

== ENCOUNTER 2016-10-19 15:00 | Emergency (ER) | payer OTHER ==
[2016-10-19 15:15] VITALS: BP 126/90
== END 2016-10-19 18:00 | disposition left against medical advice (07) ==
LOC: UCEAST 15:00
DX: M79.606 Pain in leg, unspecified (principal); R22.40 Localized swelling, mass and lump, unspecified lower limb; Z53.21 Procedure and treatment not carried out due to patient leaving prior to being seen by health care provider

== ENCOUNTER 2016-10-20 10:30 | Emergency (ER) | payer OTHER ==
[2016-10-20] MEDS ORDERED: Morphine INJ* 4 MG/ML 1 ML SYRINGE IV ONE (12:32)
[2016-10-20] MEDS ORDERED: NS 0.9% 1000 ML* 1,000 ML IV ONE (12:32)
[2016-10-20] MEDS ORDERED: Ondansetron INJ* 2 MG/ML VIAL IV ONE (12:32)
--- NOTE | 2016-10-20 13:19 | RAD ---
HISTORY: Peripheral vascular disease, atrial fibrillation COMPARISONS: October 02, 2016 VIEWS:1: Single frontal portable view of the chest at 1:10 PM FINDINGS: LINES AND TUBES: None. CARDIOMEDIASTINAL SILHOUETTE: The cardiomediastinal silhouette is normal for portable technique. PLEURA: The costophrenic angles are sharp. No pleural abnormalities are noted. LUNG PARENCHYMA: The lungs are clear. ABDOMEN: The upper abdomen is clear. There is no subphrenic gas. BONES AND SOFT TISSUES: No bone or soft tissue abnormalities are noted. IMPRESSION: NO ACTIVE CARDIOPULMONARY DISEASE.
[2016-10-20 13:49] LABS: Hematocrit 49 % (35-47); Hemoglobin 16.4 g/dl (12.0-16.0); Mean Corpuscular HGB Conc 33 g/dl (31-36); Mean Corpuscular Hemoglobin 30 pg (27-31); Mean Corpuscular Volume 91 fL (80-97); Mean Platelet Volume 9 um3 (7.4-10.4); Red Blood Count 5.42 10^6/ul (4.0-5.4); Red Cell Distribution Width 16 % (10.5-15); White Blood Count 11.5 10^3/ul (3.5-10.8)
[2016-10-20 14:00] LABS: Albumin 3.4 g/dL (3.2-5.2); BUN/Creatinine Ratio 4.8 (8-20); Calcium 9.5 mg/dL (8.6-10.3); EGFR African American 14.7 (>60); EGFR Non-African American 11.5 (>60); Globulin 3.2 g/dL (2-4); Potassium 3.5 mmol/L (3.5-5.0); Total Bilirubin 0.4 mg/dL (0.2-1.0); Total Protein 6.6 g/dL (6.4-8.9)
[2016-10-20 14:02] LABS: Troponin I 0.03 ng/mL (<0.04)
[2016-10-20] MEDS ORDERED: Insulin REGULAR(*) 1 UNITS UNIT IV PUSH ONE (14:10)
[2016-10-20] MEDS ORDERED: HYDROmorphone* 1 MG/ML 1 ML SYR IV SLOW PU ONE (14:10)
--- NOTE | 2016-10-20 14:44 | RAD ---
HISTORY: Arterial occlusion, left foot pain COMPARISONS: None relevant TECHNIQUE: Multiple transverse and longitudinal ultrasound images were obtained of the arterial system of the left lower extremity using grayscale, color Doppler, and spectral Doppler imaging. FINDINGS: COMMON FEMORAL ARTERY: There is monophasic flow of the left common femoral artery. The peak systolic velocity ranges from 52 to 120 cm/s. Atheromatous plaque is noted SUPERFICIAL FEMORAL ARTERY: The proximal portion of the superficial femoral artery is occluded. The peak systolic velocities of the distal and mid portions ranges from 23-28 cm/s. There is monophasic flow. POPLITEAL ARTERY: There is monophasic flow. There is atheromatous plaque. The peak systolic velocity ranges from 22-28 cm/s. POSTERIOR TIBIAL ARTERY: The flow is monophasic. The peak systolic velocity is 14 cm/s. PERONEAL ARTERY: No flow is noted within the peroneal artery. ANTERIOR TIBIAL ARTERY: The flow is nonphasic. The peak systolic velocity is 4 cm/s. IMPRESSION: PERIPHERAL ARTERIAL DISEASE WITH OCCLUSION OF THE SUPERFICIAL FEMORAL ARTERY. THERE IS DAMPENING OF THE DISTAL WAVEFORMS WITH DECREASED PEAK SYSTOLIC VELOCITIES DISTALLY.
[2016-10-20 15:40] VITALS: BP 146/75
--- NOTE | 2016-10-20 15:49 | ED ---
Payal Palacio Edward, scribed for Britton Toussaint on 10/20/16 at 1212 . Lower Extremity - HPI Summary HPI Summary: 36 y/o female presents to the ED c/o a pain in the back of the L calf radiating to her toes and an ulcer at the base of her big toe. The pain started 4-5 days ago. Pt states the pain is a "freezing, aching" pain. PMHx DM, blood clots. Associated sx: chills, N/V. - History of Current Complaint Chief Complaint: EDExtremityLower Stated Complaint: LT LEG/FOOT PAIN Time Seen by Provider: 10/20/16 12:11 Hx Obtained From: Patient Hx Last Menstrual Period: June 2016 Onset of Pain: Days Onset/Duration: Still Present Severity Currently: Severe Pain Intensity: 8 Pain Scale Used: 0-10 Numeric Associated Signs And Symptoms: Positive: Other - N/V, chills - Allergies/Home Medications Allergies/Adverse Reactions: Allergies Allergy/AdvReac Type Severity Reaction Status Date / Time Amoxicillin [From Augmentin] Allergy See Comment Verified 10/19/16 15:16 Clavulanic Acid Allergy See Comment Verified 10/19/16 15:16 [From Augmentin] Heparin Allergy See Comment Verified 10/19/16 15:16 Metronidazole [From Flagyl] Allergy Nausea And Verified 10/19/16 15:16 Vomiting Morphine Allergy See Comment Verified 10/19/16 15:16 Ropinirole [From Requip] Allergy Hives Verified 10/19/16 15:16 Sulfamethoxazole Allergy Nausea And Verified 10/19/16 15:16 w/Trimethoprim Vomiting [From Bactrim] Codeine AdvReac Nausea And Verified 10/19/16 15:16 Vomiting Erythromycin AdvReac "DOESN'T Verified 10/19/16 15:16 WORK" Niacin AdvReac Hives Verified 10/19/16 15:16 plastic tape Allergy Blisters Uncoded 10/19/16 15:16 PMH/Surg Hx/FS Hx/Imm Hx Previously Healthy: No Endocrine/Hematology History: Reports: Hx Anticoagulant Therapy - Aspirin., Hx Blood Transfusions, Hx Diabetes, Hx Thyroid Disease - nodule biopsied, normal, Hx Anemia - hx of - reports had tranfusion in 2013 after mi Cardiovascular History: Reports: Hx Angina, Hx Cardiac Arrest - in Dec. 2014 with CPR, Hx Cardiomegaly, Hx Coronary Artery Disease, Hx Hypercholesterolemia, Hx Hypertension, Hx Myocardial Infarction, Other Cardiovascular Problems/ Disorders - hyperlipidemia, CAD Denies: Hx Congestive Heart Failure, Hx Deep Vein Thrombosis, Hx Pacemaker/ ICD, Hx Valvular Heart Disease Respiratory History: Reports: Hx Asthma, Hx Chronic Obstructive Pulmonary Disease (COPD) - smoker, Hx Sleep Apnea - pt reports md thinks, but no official testing done yet, Other Respiratory Problems/Disorders - acute respipatory failure with hypoxia - jan 2016 Denies: Hx Lung Cancer, Hx Pneumonia, Hx Pulmonary Embolism GI History: Reports: Hx Gastroesophageal Reflux Disease, Other GI Disorders - GASTROPARESIS - TAKING OMEPRAZOLE Denies: Hx Gall Bladder Disease, Hx Gastrointestinal Bleed, Hx Ulcer, Hx Urosepsis History: Reports: Hx Acute Renal Failure, Hx Chronic Renal Failure, Hx Dialysis - PERITONEAL, Hx Kidney Stones - in past, Hx Renal Disease - ESRD on home peritoneal dialysis , Other Problems/Disorders - ESRD- URINATES A SMALL AMOUNT Musculoskeletal History: Reports: Hx Arthritis - back, hips, Hx Back Problems - Sciatica and Herniated L3 disk Sensory History: Reports: Hx Eye Prosthesis - left, 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 Stage 5 Renal failure/dialysis Hx Chemotherapy: No Hx Radiation Therapy: No - Surgical History Surgery Procedure, Year, and Place: LEFT EYE REMOVED 2011 - HAS PROSTHETIC EYE ( ORBITS DONE 06/[address] LIGIA COY TO SCAN IN MRI) ;. MELANOMA REMOVED FROM [facility] 2012 (PROCEDURE DONE 4X);. CARDIAC CATH 2013 - NO STENTS;. LEFT WRIST FISTULA PLACEMENT ([facility]) 2013;. HEMODIALYSIS CATH RIGHT CHEST WALL 2013;. PERITONEAL DIALYSIS CATH 03/2014;. [place] [facility] [place] [facility] [place] [facility] [place] [facility] [place]. [place]AC[place] RIGHT JUGULAR TESIO HEMODIALYSIS [place]HE[place] [facility] [place] [facility] [place]. REMOVAL OF JUGULAR CATH - OCT 2015. CARDIAC CATH - stentsx2 right leg. PARTIAL AMPUTATION RIGHT TOES 06/2016 Hx Anesthesia Reactions: No - Immunization History Date of Tetanus Vaccine: UTD Date of Influenza Vaccine: 10/10/15 Infectious Disease History: No Infectious Disease History: Reports: Hx of Known/Suspected MRSA - MRSA R 1st toe Denies: Hx Clostridium Difficile, Hx Hepatitis, Hx Human Immunodeficiency Virus (HIV), Hx Shingles, Hx Tuberculosis, History Other Infectious Disease, Traveled Outside the [place] in Last 30 Days - Family History Known Family History: Positive: Cardiac Disease - father [place] at 42 y/o, Hypertension, Other - Positive for bipolar and depression. Completed suicide to sister. - Social History Alcohol Use: None Hx Substance Use: No Substance Use Type: Reports: Prescribed Substance Use Comment - Amount & Last Used: METHADONE Hx Tobacco Use: Yes Smoking Status (MU): Current Every Day Smoker Type: Cigarettes Amount Used/How Often: 1 PPD Length of Time of Smoking/Using Tobacco: 20 YEARS Have You Smoked in the Last Year: Yes Review of Systems Positive: Chills Eyes: Negative ENT: Negative Cardiovascular: Negative Respiratory: Negative Positive: Vomiting, Nausea Genitourinary: Negative Positive: Myalgia - Pain @ back of L calf Skin: Negative Neurological: Negative Psychological: Normal All Other Systems Reviewed And Are Negative: Yes Physical Exam Triage Information Reviewed: Yes Vital Signs On Initial Exam: Initial Vitals Temp Pulse Resp BP Pulse Ox 98.7 F 130 16 137/79 95 10/20/16 10:40 10/20/16 10:40 10/20/16 10:40 10/20/16 10:40 10/20/16 10:40 Vital Signs Reviewed: Yes Appearance: Positive: Well-Appearing, No Pain Distress Skin: Positive: Warm, Skin Color Reflects Adequate Perfusion, Dry Head/Face: Positive: Normal Head/Face Inspection Eyes: Positive: EOMI, HILLARY ENT: Positive: Normal ENT inspection Neck: Positive: Supple, Nontender Respiratory/Lung Sounds: Positive: Clear to Auscultation, Breath Sounds Present Cardiovascular: Positive: Pulses are Symmetrical in both Upper and Lower Extremities, IRR Abdomen Description: Positive: Nontender, Soft, Other: - Healing scar wounds over the ABD Bowel Sounds: Positive: Present Musculoskeletal: Positive: Normal, Strength/ROM Intact, Other - Dressing @ R foot. L foot - ulcers, cold to touch. no pulse present,Tenderness over calf muscles. Neurological: Positive: Normal, Sensory/Motor Intact, Alert, Oriented to Person Place, Time Diagnostics - Vital Signs Vital Signs Temp Pulse Resp BP Pulse Ox 10/20/16 12:00 109 134/72 93 10/20/16 11:49 111 90 10/20/16 11:48 98.8 F 106 18 146/76 90 10/20/16 11:47 146/76 10/20/16 10:40 98.7 F 130 16 137/79 95 - Laboratory Lab Results: Lab Results 10/20/16 10/20/16 10/20/16 Range/Units 13:15 13:15 13:15 WBC 11.5 H (3.5-10.8) 10^3/ul RBC 5.42 H (4.0-5.4) 10^6/ul Hgb 16.4 H (12.0-16.0) g/dl Hct 49 H (35-47) % MCV 91 (80-97) fL MCH 30 (27-31) pg MCHC 33 (31-36) g/dl RDW 16 H (10.5-15) % Plt Count 256 (150-450) 10^3/ul MPV 9 (7.4-10.4) um3 Neut % (Auto) 80.5 (38-83) % Lymph % (Auto) 10.9 L (25-47) % [place] % (Auto) 5.2 (1-9) % Eos % (Auto) 2.6 (0-6) % Baso % (Auto) 0.8 (0-2) % Absolute Neuts (auto) 9.3 H (1.5-7.7) 10^3/ul Absolute Lymphs (auto) 1.3 (1.0-4.8) 10^3/ul Absolute Monos (auto) 0.6 (0-0.8) 10^3/ul Absolute Eos (auto) 0.3 (0-0.6) 10^3/ul Absolute Basos (auto) 0.1 (0-0.2) 10^3/ul Absolute Nucleated RBC 0.01 10^3/ul Nucleated RBC % 0.1 INR (Anticoag Therapy) 0.91 (0.89-1.11) APTT 30.4 (26.0-36.3) seconds Sodium 128 L (133-145) mmol/L Potassium 3.5 (3.5-5.0) mmol/L Chloride 90 L (101-111) mmol/L Carbon Dioxide 29 (22-32) mmol/L Anion Gap 9 (2-11) mmol/L BUN 21 (6-24) mg/dL Creatinine 4.34 H (0.51-0.95) mg/dL Est GFR ( Amer) 14.7 (>60) Est GFR (Non-Af Amer) 11.5 (>60) BUN/Creatinine Ratio 4.8 L (8-20) Glucose 527 H* (70-100) mg/dL Lactic Acid (0.5-2.0) mmol/L Calcium 9.5 (8.6-10.3) mg/dL Total Bilirubin 0.40 (0.2-1.0) mg/dL AST 5 L (13-39) U/L ALT 6 L (7-52) U/L Alkaline Phosphatase 121 H (34-104) U/L Troponin I 0.03 (<0.04) ng/mL Total Protein 6.6 (6.4-8.9) g/dL Albumin 3.4 (3.2-5.2) g/dL Globulin 3.2 (2-4) g/dL Albumin/Globulin Ratio 1.1 (1-3) 08/26/17 Range/Units 13:15 WBC (3.5-10.8) 10^3/ul RBC (4.0-5.4) 10^6/ul Hgb (12.0-16.0) g/dl Hct (35-47) % MCV (80-97) fL MCH (27-31) pg MCHC (31-36) g/dl RDW (10.5-15) % Plt Count (150-450) 10^3/ul MPV (7.4-10.4) um3 Neut % (Auto) (38-83) % Lymph % (Auto) (25-47) % Bristol % (Auto) (1-9) % Eos % (Auto) (0-6) % Baso % (Auto) (0-2) % Absolute Neuts (auto) (1.5-7.7) 10^3/ul Absolute Lymphs (auto) (1.0-4.8) 10^3/ul Absolute Monos (auto) (0-0.8) 10^3/ul Absolute Eos (auto) (0-0.6) 10^3/ul Absolute Basos (auto) (0-0.2) 10^3/ul Absolute Nucleated RBC 10^3/ul Nucleated RBC % INR (Anticoag Therapy) (0.89-1.11) APTT (26.0-36.3) seconds Sodium (133-145) mmol/L Potassium (3.5-5.0) mmol/L Chloride (101-111) mmol/L Carbon Dioxide (22-32) mmol/L Anion Gap (2-11) mmol/L BUN (6-24) mg/dL Creatinine (0.51-0.95) mg/dL Est GFR ( Amer) (>60) Est GFR (Non-Af Amer) (>60) BUN/Creatinine Ratio (8-20) Glucose (70-100) mg/dL Lactic Acid 2.1 H* (0.5-2.0) mmol/L Calcium (8.6-10.3) mg/dL Total Bilirubin (0.2-1.0) mg/dL AST (13-39) U/L ALT (7-52) U/L Alkaline Phosphatase (34-104) U/L Troponin I (<0.04) ng/mL Total Protein (6.4-8.9) g/dL Albumin (3.2-5.2) g/dL Globulin (2-4) g/dL Albumin/Globulin Ratio (1-3) Result Diagrams: 10/20/16 13:15 10/20/16 13:15 Lab Statement: Any lab studies that have been ordered have been reviewed, and results considered in the medical decision making process. - Radiology CXR Xray Interpretation: No Acute Changes - NO ACTIVE CARDIOPULMONARY DISEASE Radiology Interpretation Completed By: Radiologist - Ultrasound No standard instances Ultrasound Interpretation: Positive (See Comments) - DUPLEX SCAN LOWER EXTREMITY ARTERY - PERIPHERAL ARTERIAL DISEASE WITH OCCLUSION OF THE SUPERFICIAL FEMORAL ARTERY. THERE IS DAMPENING OF THE DISTAL WAVEFORMS WITH DECREASED PEAK SYSTOLIC VELOCITIES DISTALLY. Ultrasound Interpretation Completed By: Radiologist - EKG 1 EKG Interpretation: 12:56 - SINUS TACHYCARDIA @ 106 BPM. Re-Evaluation - Re-Evaluation 1 Re-Evaluation Time: 15:34 Change: Unchanged Lower Extremity Course/Dx - Course Assessment/Plan: 36 y/o female presents to the ED c/o a pain in the back of the L calf radiating to her toes and an ulcer at the base of her big toe. The pain started 4-5 days ago. Pt states the pain is a "freezing, aching" pain. PMHx DM, blood clots. Associated sx: chills, N/V. EKG 12:56 - SINUS TACHYCARDIA @ 106 BPM. CXR SHOWS NO ACTIVE CARDIOPULMONARY DISEASE. LOWER EXTREMITY DUPLEX SCAN SHOWS DUPLEX SCAN LOWER EXTREMITY ARTERY - PERIPHERAL ARTERIAL DISEASE WITH OCCLUSION OF THE SUPERFICIAL FEMORAL ARTERY. THERE IS DAMPENING OF THE DISTAL WAVEFORMS WITH DECREASED PEAK SYSTOLIC VELOCITIES DISTALLY. Pt has an arterial occlusion of the L leg. Recommended transfer to [facility], but the pt refused to go by ambulance. Pt will sign out AMA. Pt is advised to got [facility] immediately to the ER for further workup and management. - Diagnoses Provider Diagnoses: Arterial occlusion of the left leg Discharge - Discharge Plan Condition: Stable Disposition: AGAINST MEDICAL ADVICE Referrals: Aishwarya Solis MD [Primary Care Provider] - The documentation as recorded by the Payal sexton Edward accurately reflects the service I personally performed and the decisions made by Breana branch Emmanuel.
== END 2016-10-20 15:52 | disposition left against medical advice (07) ==
LOC: ED 10:30
DX: I74.9 Embolism and thrombosis of unspecified artery (principal); R11.2 Nausea with vomiting, unspecified
CPT/HCPCS: 36415; 71010; 80053; 83605; 84484; 85025; 85610; 85730; 87040; 93005; 96374; 96375; 99283; J1170; J2270; J2405

== ENCOUNTER 2016-10-30 01:02 | Emergency (ER) | payer OTHER ==
[2016-10-30] MEDS ORDERED: NS 0.9% 1000 ML* 1,000 ML IV ONE (01:16)
[2016-10-30] MEDS ORDERED: Metoclopramide IV* 5 MG/ML 2 ML VIAL IV ONE (01:16)
[2016-10-30 01:45] LABS: Hematocrit 41 % (35-47); Hemoglobin 13.6 g/dl (12.0-16.0); Mean Corpuscular HGB Conc 33 g/dl (31-36); Mean Corpuscular Hemoglobin 29 pg (27-31); Mean Corpuscular Volume 88 fL (80-97); Mean Platelet Volume 8 um3 (7.4-10.4); Red Blood Count 4.69 10^6/ul (4.0-5.4); Red Cell Distribution Width 16 % (10.5-15); White Blood Count 11.6 10^3/ul (3.5-10.8)
[2016-10-30 01:58] LABS: Alcohol < 10 mg/dL (<10)
[2016-10-30 02:00] LABS: ALT < 3 U/L (7-52); Albumin 2.8 g/dL (3.2-5.2); Alkaline Phosphatase 106 U/L (34-104); BUN/Creatinine Ratio 7.1 (8-20); Blood Urea Nitrogen 26 mg/dL (6-24); CO2 Carbon Dioxide 27 mmol/L (22-32); Chloride 100 mmol/L (101-111); Globulin 3.3 g/dL (2-4); Glucose 181 mg/dL (70-100); Magnesium 1.4 mg/dL (1.9-2.7); Sodium 134 mmol/L (133-145); Total Protein 6.1 g/dL (6.4-8.9)
[2016-10-30 02:01] LABS: Troponin I 0.03 ng/mL (<0.04)
[2016-10-30 02:18] LABS: Anion Gap 7 mmol/L (2-11)
[2016-10-30] MEDS ORDERED: Potassium Chlor TAB* 20 MEQ TAB.ER PO ONE (03:28)
[2016-10-30 03:50] VITALS: BP 194/123
--- NOTE | 2016-10-30 06:49 | ED ---
Omid Palacio Rebecca, scribed for Leonard Sanchez MD on 10/30/16 at 0121 . Complex/Multi-Sys Presentation - HPI Summary HPI Summary: Pt is a 36 y/o F who presents to ED c/o abd pain, N/V, decreased PO intake and chills. Sx have been present for the last 3 days, worsening today. Pt reports she has an "unsettling feeling" in her abdomen. She tried eating tonight and reports she was unable to. Additionally c/o insomnia. Reports she was seen in [place] for the same sx 3 days ago, but they are now worse. - History Of Current Complaint Chief Complaint: EDGeneral Time Seen by Provider: 10/30/16 01:13 Hx Obtained From: Patient Onset/Duration: Lasting Days - 3 days, Still Present, Worse Since - Today Severity Currently: Severe Location: Pain At: - Abdomen Aggravating Factor(s): Nothing Alleviating Factor(s): Nothing Associated Signs And Symptoms: Positive: Nausea, Vomiting, Abdominal Pain, Decreased Oral Intake, Other - Chills, insomnia Related History: Similar Episode/Diagnosed As: - Was seen in [place] for similar sx 3 days ago - Allergies/Home Medications Allergies/Adverse Reactions: Allergies Allergy/AdvReac Type Severity Reaction Status Date / Time Amoxicillin [From Augmentin] Allergy See Comment Verified 10/30/16 01:05 Clavulanic Acid Allergy See Comment Verified 10/30/16 01:05 [From Augmentin] Heparin Allergy See Comment Verified 10/30/16 01:05 Metronidazole [From Flagyl] Allergy Nausea And Verified 10/30/16 01:05 Vomiting Morphine Allergy See Comment Verified 10/30/16 01:05 Ropinirole [From Requip] Allergy Hives Verified 10/30/16 01:05 Sulfamethoxazole Allergy Nausea And Verified 10/30/16 01:05 w/Trimethoprim Vomiting [From Bactrim] Codeine AdvReac Nausea And Verified 10/30/16 01:05 Vomiting Erythromycin AdvReac "DOESN'T Verified 10/30/16 01:05 WORK" Niacin AdvReac Hives Verified 10/30/16 01:05 plastic tape Allergy Blisters Uncoded 10/30/16 01:05 PMH/Surg Hx/FS Hx/Imm Hx Endocrine/Hematology History: Reports: Hx Anticoagulant Therapy - Aspirin., Hx Blood Transfusions, Hx Diabetes, Hx Thyroid Disease - nodule biopsied, normal, Hx Anemia - hx of - reports had tranfusion in 2013 after mi Cardiovascular History: Reports: Hx Angina, Hx Cardiac Arrest - in 2013 with CPR, Hx Cardiomegaly, Hx Coronary Artery Disease, Hx Hypercholesterolemia, Hx Hypertension, Hx Myocardial Infarction, Other Cardiovascular Problems/ Disorders - hyperlipidemia, CAD Denies: Hx Congestive Heart Failure, Hx Deep Vein Thrombosis, Hx Pacemaker/ ICD, Hx Valvular Heart Disease Respiratory History: Reports: Hx Asthma, Hx Chronic Obstructive Pulmonary Disease (COPD) - smoker, Hx Sleep Apnea - pt reports thinks, but no official testing done yet, Other Respiratory Problems/Disorders - acute respipatory failure with hypoxia - jan 2016 Denies: Hx Lung Cancer, Hx Pneumonia, Hx Pulmonary Embolism GI History: Reports: Hx Gastroesophageal Reflux Disease, Other GI Disorders - GASTROPARESIS - TAKING OMEPRAZOLE Denies: Hx Gall Bladder Disease, Hx Gastrointestinal Bleed, Hx Ulcer, Hx Urosepsis History: Reports: Hx Acute Renal Failure, Hx Chronic Renal Failure, Hx Dialysis - PERITONEAL, Hx Kidney Stones - in past, Hx Renal Disease - ESRD on home peritoneal dialysis , Other Problems/Disorders - ESRD- URINATES A SMALL AMOUNT Musculoskeletal History: Reports: Hx Arthritis - back, hips, Hx Back Problems - Sciatica and Herniated L3 disk Sensory History: Reports: Hx Eye Prosthesis - left, 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 Stage 5 Renal failure/dialysis Hx Chemotherapy: No Hx Radiation Therapy: No - Surgical History Surgery Procedure, Year, and Place: LEFT EYE REMOVED 2011 - HAS PROSTHETIC EYE ( ORBITS DONE 06/[address] LIGIA COY TO SCAN IN MRI) ;. MELANOMA REMOVED FROM [facility] 2012 (PROCEDURE DONE 4X);. CARDIAC CATH 2014 - NO STENTS;. LEFT WRIST FISTULA PLACEMENT ([facility]) 2013;. HEMODIALYSIS CATH RIGHT CHEST WALL 2013;. PERITONEAL DIALYSIS CATH 03/2014;. CHEST WALL CATH REMOVAL 08/2015 [facility] [place]. RIGHT GREAT [place]E AMPUTATION, [facility] [place];. PLACEMENT RIGHT JUGULAR TESIO HEMODIALYSIS CATHETER [facility] [place];. REMOVAL OF JUGULAR CATH - OCT 2015. CARDIAC CATH - stentsx2 right leg. PARTIAL AMPUTATION RIGHT TOES 06/2016 Hx Anesthesia Reactions: No - Immunization History Date of Tetanus Vaccine: UTD Date of Influenza Vaccine: 10/10/15 Infectious Disease History: No Infectious Disease History: Reports: Hx of Known/Suspected MRSA - MRSA R 1st toe Denies: Hx Clostridium Difficile, Hx Hepatitis, Hx Human Immunodeficiency Virus (HIV), Hx Shingles, Hx Tuberculosis, History Other Infectious Disease, Traveled Outside the in Last 30 Days - Family History Known Family History: Positive: Cardiac Disease - father [place] at 42 y/o, Hypertension, Other - Positive for bipolar and depression. Completed suicide to sister. - Social History Alcohol Use: None Hx Substance Use: No Substance Use Type: Reports: Prescribed Substance Use Comment - Amount & Last Used: METHADONE Hx Tobacco Use: Yes Smoking Status (MU): Current Every Day Smoker Type: Cigarettes Amount Used/How Often: 1 PPD Length of Time of Smoking/Using Tobacco: 20 YEARS Have You Smoked in the Last Year: Yes Review of Systems Positive: Chills Positive: Abdominal Pain, Vomiting, Nausea, Other - Decreased PO intake Neurological: Other - Insomnia All Other Systems Reviewed And Are Negative: Yes Physical Exam Triage Information Reviewed: Yes Vital Signs On Initial Exam: Initial Vitals Temp Pulse Resp BP Pulse Ox 97.6 F 112 18 177/105 95 10/30/16 01:08 10/30/16 01:08 10/30/16 01:08 10/30/16 01:08 10/30/16 01:08 Vital Signs Reviewed: Yes Appearance: Positive: Well-Appearing, No Pain Distress Skin: Positive: Warm Head/Face: Positive: Normal Head/Face Inspection Eyes: Positive: HILLARY ENT: Positive: Hearing grossly normal Neck: Positive: Supple Respiratory/Lung Sounds: Positive: Clear to Auscultation, Breath Sounds Present Cardiovascular: Positive: RRR Abdomen Description: Positive: Nontender, Soft Bowel Sounds: Positive: Present Musculoskeletal: Positive: Strength/ROM Intact Neurological: Positive: Alert, Oriented to Person Place, Time Psychiatric: Positive: Affect/Mood Appropriate Diagnostics - Vital Signs Vital Signs Temp Pulse Resp BP Pulse Ox 10/30/16 01:08 97.6 F 112 18 177/105 95 - Laboratory Result Diagrams: 10/30/16 01:35 10/30/16 02:50 Lab Statement: Any lab studies that have been ordered have been reviewed, and results considered in the medical decision making process. - EKG 0120 Cardiac Rate: Tachycardia - 102 bpm EKG Rhythm: Sinus Tachycardia Complex Multi-Symp Course/Dx Assessment/Plan: Pt is a 36 y/o F who presents to ED c/o abd pain, N/V, decreased PO intake and chills. Sx have been present for the last 3 days, worsening today. Pt reports she has an "unsettling feeling" in her abdomen. She tried eating tonight and reports she was unable to. Additionally c/o insomnia. Reports she was seen in [place], [place] for the same sx 3 days ago, but they are now worse. EKG is sinus tachy with LVH. In the ED course, pt was given potassium chloride, reglan and fluids. She will be D/C to home with Dx of abodminal pain. She understands and agrees. Elevated BP noted and advised to f/u with PCP. - Diagnoses Provider Diagnoses: Abdominal pain Discharge - Discharge Plan Condition: Stable Disposition: HOME Patient Education Materials: Acute Abdominal Pain (ED) Referrals: Aishwarya Solis MD [Primary Care Provider] - 3 Days The documentation as recorded by the Omid sexton Rebecca accurately reflects the service I personally performed and the decisions made by , Leonard Sanchez MD.
== END 2016-10-30 03:49 | disposition home or self-care (01) ==
LOC: ED 01:02
DX: R10.9 Unspecified abdominal pain (principal); R11.2 Nausea with vomiting, unspecified; F17.210 Nicotine dependence, cigarettes, uncomplicated
CPT/HCPCS: 36415; 80053; 80320; 83605; 83735; 84484; 85025; 93005; 96374; 96375; 99282; A9270-GY; G0480; J2765

== ENCOUNTER 2016-10-31 00:55 | Emergency (ER) | payer OTHER ==
[2016-10-31 00:59] VITALS: BP 145/99
== END 2016-10-31 01:03 | disposition left against medical advice (07) ==
LOC: ED 00:55
DX: K92.0 Hematemesis (principal); Z53.21 Procedure and treatment not carried out due to patient leaving prior to being seen by health care provider

== ENCOUNTER 2016-11-01 23:22 | Observation (INO) | payer OTHER ==
[2016-11-02] MEDS ORDERED: Metoclopramide IV* 5 MG/ML 2 ML VIAL IV ONE (01:42)
[2016-11-02] MEDS ORDERED: NS 0.9% 1000 ML* 2,000 ML IV ONE (01:42)
[2016-11-02] MEDS ORDERED: HYDROmorphone* 1 MG/ML 1 ML CARPUJECT IV ONE (01:42)
[2016-11-02 03:32] LABS: Hematocrit 41 % (35-47); Hemoglobin 13.2 g/dl (12.0-16.0); Mean Corpuscular HGB Conc 33 g/dl (31-36); Mean Corpuscular Hemoglobin 29 pg (27-31); Mean Corpuscular Volume 88 fL (80-97); Mean Platelet Volume 9 um3 (7.4-10.4); Red Blood Count 4.61 10^6/ul (4.0-5.4); Red Cell Distribution Width 16 % (10.5-15); White Blood Count 12.2 10^3/ul (3.5-10.8)
[2016-11-02 03:44] LABS: ALT 3 U/L (7-52); AST 8 U/L (13-39); Albumin 2.9 g/dL (3.2-5.2); Alkaline Phosphatase 99 U/L (34-104); Amylase < 10 U/L (29-103); Anion Gap 7 mmol/L (2-11); BUN/Creatinine Ratio 6.3 (8-20); Blood Urea Nitrogen 24 mg/dL (6-24); C Reactive Protein 12.37 mg/L (< 5.00); CO2 Carbon Dioxide 28 mmol/L (22-32); Calcium 8.8 mg/dL (8.6-10.3); Chloride 100 mmol/L (101-111); EGFR African American 17.1 (>60); EGFR Non-African American 13.3 (>60); Globulin 3.2 g/dL (2-4); Glucose 174 mg/dL (70-100); Lipase 26 U/L (11.0-82.0); Potassium 3.2 mmol/L (3.5-5.0); Sodium 135 mmol/L (133-145); Total Protein 6.1 g/dL (6.4-8.9)
--- NOTE | 2016-11-02 06:40 | ED ---
Omid Palacio Rebecca, scribed for John Paul Rogers MD on 11/02/16 at 0141 . Abdominal Pain/Female - HPI Summary HPI Summary: Pt is a 36 y/o F BIBA who presents to ED c/o diffuse abdominal pain characterized as cramping. Pain has been present for the last 6 days and is currently moderate, ranked 7/10, particularly worse on the left side. Additionally c/o N/V, chills, dizziness and "tacky"/"sticky" BM. Sx aggravated by PO intake, alleviated by nothing. Reports that she is unable to tolerate any PO intake. Has Zofran Rx which she cannot keep down. Is not currently on any blood thinners. Pt was seen in [place] in the ED and by Dr. Solis [address] Pedraza yesterday. - History of Current Complaint Chief Complaint: EDAbdPain Stated Complaint: CHEST PAIN Time Seen by Provider: 11/02/16 01:18 Hx Obtained From: Patient Hx Last Menstrual Period: June 2016 Onset/Duration: Lasting Days - 6 days, Still Present Severity Currently: Moderate Pain Intensity: 7 Pain Scale Used: 0-10 Numeric Location: Diffuse Character: Cramping Aggravating Factor(s): Other: - PO intake Alleviating Factor(s): Nothing Associated Signs and Symptoms: Positive: Dizzy, Nausea, Vomiting Allergies/Adverse Reactions: Allergies Allergy/AdvReac Type Severity Reaction Status Date / Time Amoxicillin [From Augmentin] Allergy See Comment Verified 10/31/16 00:59 Clavulanic Acid Allergy See Comment Verified 10/31/16 00:59 [From Augmentin] Heparin Allergy See Comment Verified 10/31/16 00:59 Metronidazole [From Flagyl] Allergy Nausea And Verified 10/31/16 00:59 Vomiting Morphine Allergy See Comment Verified 10/31/16 00:59 Ropinirole [From Requip] Allergy Hives Verified 10/31/16 00:59 Sulfamethoxazole Allergy Nausea And Verified 10/31/16 00:59 w/Trimethoprim Vomiting [From Bactrim] Codeine AdvReac Nausea And Verified 10/31/16 00:59 Vomiting Erythromycin AdvReac "DOESN'T Verified 10/31/16 00:59 WORK" Niacin AdvReac Hives Verified 10/31/16 00:59 plastic tape Allergy Blisters Uncoded 10/31/16 00:59 PMH/Surg Hx/FS Hx/Imm Hx Endocrine/Hematology History: Reports: Hx Anticoagulant Therapy - Aspirin., Hx Blood Transfusions, Hx Diabetes, Hx Thyroid Disease - nodule biopsied, normal, Hx Anemia - hx of - reports had tranfusion in 2013 after mi Cardiovascular History: Reports: Hx Angina, Hx Cardiac Arrest - in 2013 with CPR, Hx Cardiomegaly, Hx Coronary Artery Disease, Hx Hypercholesterolemia, Hx Hypertension, Hx Myocardial Infarction, Other Cardiovascular Problems/ Disorders - hyperlipidemia, CAD Denies: Hx Congestive Heart Failure, Hx Deep Vein Thrombosis, Hx Pacemaker/ ICD, Hx Valvular Heart Disease Respiratory History: Reports: Hx Asthma, Hx Chronic Obstructive Pulmonary Disease (COPD) - smoker, Hx Sleep Apnea - pt reports thinks, but no official testing done yet, Other Respiratory Problems/Disorders - acute respipatory failure with hypoxia - jan 2016 Denies: Hx Lung Cancer, Hx Pneumonia, Hx Pulmonary Embolism GI History: Reports: Hx Gastroesophageal Reflux Disease, Other GI Disorders - GASTROPARESIS - TAKING OMEPRAZOLE Denies: Hx Gall Bladder Disease, Hx Gastrointestinal Bleed, Hx Ulcer, Hx Urosepsis History: Reports: Hx Acute Renal Failure, Hx Chronic Renal Failure, Hx Dialysis - PERITONEAL, Hx Kidney Stones - in past, Hx Renal Disease - ESRD on home peritoneal dialysis , Other Problems/Disorders - ESRD- URINATES A SMALL AMOUNT Musculoskeletal History: Reports: Hx Arthritis - back, hips, Hx Back Problems - Sciatica and Herniated L3 disk Sensory History: Reports: Hx Eye Prosthesis - left, 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 Stage 5 Renal failure/dialysis Hx Chemotherapy: No Hx Radiation Therapy: No - Surgical History Surgery Procedure, Year, and Place: LEFT EYE REMOVED 2011 - HAS PROSTHETIC EYE ( ORBITS DONE 06/[address] LIGIA COY TO SCAN IN MRI) ;. MELANOMA REMOVED FROM [facility] 2012 (PROCEDURE DONE 4X);. CARDIAC CATH 2013 - NO STENTS;. LEFT WRIST FISTULA PLACEMENT ([facility]) 2013;. HEMODIALYSIS CATH RIGHT CHEST WALL 2013;. PERITONEAL DIALYSIS CATH 03/2014;. CHEST WALL C[place] REMOVAL 08/2015 [facility] [place]. RIGHT GREAT TOE AMPUTATION, [facility] [place];. PLACEMENT RIGHT JUGULAR TESIO HEMODIALYSIS CATHETER [facility] [place];. REMOVAL OF JUGULAR CATH - OCT 2015. CARDIAC CATH - stentsx2 right leg. PARTIAL AMPUTATION RIGHT TOES 06/2016 Hx Anesthesia Reactions: No - Immunization History Date of Tetanus Vaccine: UTD Date of Influenza Vaccine: 10/10/15 Infectious Disease History: No Infectious Disease History: Reports: Hx of Known/Suspected MRSA - MRSA R 1st toe Denies: Hx Clostridium Difficile, Hx Hepatitis, Hx Human Immunodeficiency Virus (HIV), Hx Shingles, Hx Tuberculosis, History Other Infectious Disease, Traveled Outside the [place] in Last 30 Days - Family History Known Family History: Positive: Cardiac Disease - father [place] at 42 y/o, Hypertension, Other - Positive for bipolar and depression. Completed suicide to sister. - Social History Alcohol Use: None Hx Substance Use: No Substance Use Type: Reports: Prescribed Substance Use Comment - Amount & Last Used: METHADONE Hx Tobacco Use: Yes Smoking Status (MU): Current Every Day Smoker Type: Cigarettes Amount Used/How Often: 1 PPD Length of Time of Smoking/Using Tobacco: 20 YEARS Have You Smoked in the Last Year: Yes Review of Systems Positive: Chills Positive: Abdominal Pain - Diffuse cramping, Vomiting, Nausea Positive: other - "tacky"/"sticky" BM Neurological: Other - Dizziness All Other Systems Reviewed And Are Negative: Yes Physical Exam - Summary Physical Exam Summary: The patient is disheveled. The skin is warm and dry and skin color reflects adequate perfusion. Decreased skin turgor. HEENT: The head is normocephalic and atraumatic. The pupils are equal and reactive. The conjunctivae are clear and without drainage. Nares are patent and without drainage. Mouth reveals dry mucous membranes and the throat is without erythema and exudate. The external ears are intact. The ear canals are patent and without drainage. The tympanic membranes are intact. Neck is supple with full range of motion and non-tender. Respiratory: Chest is non-tender. Breath sounds are symmetrical and equal with wheezing diffusely throughout. She moore snot appear to be short of breath. Cardiovascular: Hear is regular rate and rhythm. There is no murmur or rub auscultated. There is no peripheral edema and pulses are symmetrical and equal. Abdomen: The abdomen is soft with epigastric, RUQ and LLQ pain. Dialysis catheter is in place in the RLQ. There is no guarding and no rebound. There are normal bowel sounds heard in all four quadrants and there is no organomegaly palpated. Musculoskeletal: There is no back pain noted. Extremities are non-tender with full range of motion. There is good capillary refill. Dorsal pedis pulses intact Neurological: Patient is alert and oriented to person, place and time. The patient has symmetrical motor strength in all four extremities. Psychiatric: The patient has an appropriate affect and does not exhibit any anxiety or depression. Triage Information Reviewed: Yes Vital Signs On Initial Exam: Initial Vitals Temp Pulse Resp BP Pulse Ox 97.5 F 88 18 150/83 96 11/02/16 00:02 11/02/16 00:02 11/02/16 00:02 11/02/16 00:02 11/02/16 00:02 Vital Signs Reviewed: Yes - Ronald Coma Scale Coma Scale Total: 15 Diagnostics - Vital Signs Vital Signs Temp Pulse Resp BP Pulse Ox 11/02/16 00:02 97.5 F 88 18 150/83 96 - Laboratory Lab Results: Lab Results 11/02/16 11/02/16 11/02/16 Range/Units 03:10 03:10 03:10 WBC 12.2 H (3.5-10.8) 10^3/ul RBC 4.61 (4.0-5.4) 10^6/ul Hgb 13.2 (12.0-16.0) g/dl Hct 41 (35-47) % MCV 88 (80-97) fL MCH 29 (27-31) pg MCHC 33 (31-36) g/dl RDW 16 H (10.5-15) % Plt Count 487 H D (150-450) 10^3/ul MPV 9 (7.4-10.4) um3 Neut % (Auto) 72.4 (38-83) % Lymph % (Auto) 18.7 L (25-47) % Stoddard % (Auto) 5.5 (1-9) % Eos % (Auto) 2.9 (0-6) % Baso % (Auto) 0.5 (0-2) % Absolute Neuts (auto) 8.9 H (1.5-7.7) 10^3/ul Absolute Lymphs (auto) 2.3 (1.0-4.8) 10^3/ul Absolute Monos (auto) 0.7 (0-0.8) 10^3/ul Absolute Eos (auto) 0.3 (0-0.6) 10^3/ul Absolute Basos (auto) 0.1 (0-0.2) 10^3/ul Absolute Nucleated RBC 0.01 10^3/ul Nucleated RBC % 0.1 INR (Anticoag Therapy) 0.92 (0.89-1.11) Sodium 135 (133-145) mmol/L Potassium 3.2 L (3.5-5.0) mmol/L Chloride 100 L (101-111) mmol/L Carbon Dioxide 28 (22-32) mmol/L Anion Gap 7 (2-11) mmol/L BUN 24 (6-24) mg/dL Creatinine 3.82 H (0.51-0.95) mg/dL Est GFR ( Amer) 17.1 (>60) Est GFR (Non-Af Amer) 13.3 (>60) BUN/Creatinine Ratio 6.3 L (8-20) Glucose 174 H (70-100) mg/dL Lactic Acid (0.5-2.0) mmol/L Calcium 8.8 (8.6-10.3) mg/dL Total Bilirubin 0.30 (0.2-1.0) mg/dL AST 8 L (13-39) U/L ALT 3 L (7-52) U/L Alkaline Phosphatase 99 (34-104) U/L C-Reactive Protein 12.37 H (< 5.00) mg/L Total Protein 6.1 L (6.4-8.9) g/dL Albumin 2.9 L (3.2-5.2) g/dL Globulin 3.2 (2-4) g/dL Albumin/Globulin Ratio 0.9 L (1-3) Amylase < 10 L (29-103) U/L Lipase 26 (11.0-82.0) U/L 11/02/16 Range/Units 03:10 WBC (3.5-10.8) 10^3/ul RBC (4.0-5.4) 10^6/ul Hgb (12.0-16.0) g/dl Hct (35-47) % MCV (80-97) fL MCH (27-31) pg MCHC (31-36) g/dl RDW (10.5-15) % Plt Count (150-450) 10^3/ul MPV (7.4-10.4) um3 Neut % (Auto) (38-83) % Lymph % (Auto) (25-47) % Stoddard % (Auto) (1-9) % Eos % (Auto) (0-6) % Baso % (Auto) (0-2) % Absolute Neuts (auto) (1.5-7.7) 10^3/ul Absolute Lymphs (auto) (1.0-4.8) 10^3/ul Absolute Monos (auto) (0-0.8) 10^3/ul Absolute Eos (auto) (0-0.6) 10^3/ul Absolute Basos (auto) (0-0.2) 10^3/ul Absolute Nucleated RBC 10^3/ul Nucleated RBC % INR (Anticoag Therapy) (0.89-1.11) Sodium (133-145) mmol/L Potassium (3.5-5.0) mmol/L Chloride (101-111) mmol/L Carbon Dioxide (22-32) mmol/L Anion Gap (2-11) mmol/L BUN (6-24) mg/dL Creatinine (0.51-0.95) mg/dL Est GFR ( Amer) (>60) Est GFR (Non-Af Amer) (>60) BUN/Creatinine Ratio (8-20) Glucose (70-100) mg/dL Lactic Acid 1.2 (0.5-2.0) mmol/L Calcium (8.6-10.3) mg/dL Total Bilirubin (0.2-1.0) mg/dL AST (13-39) U/L ALT (7-52) U/L Alkaline Phosphatase (34-104) U/L C-Reactive Protein (< 5.00) mg/L Total Protein (6.4-8.9) g/dL Albumin (3.2-5.2) g/dL Globulin (2-4) g/dL Albumin/Globulin Ratio (1-3) Amylase (29-103) U/L Lipase (11.0-82.0) U/L Result Diagrams: 11/02/16 03:10 11/02/16 03:10 Lab Statement: Any lab studies that have been ordered have been reviewed, and results considered in the medical decision making process. - CT CT Abd/Pel CT Interpretation Completed By: Radiologist - No nephrolithiasis, ureterolithiasis or obstructive uropathy. No bladder calculi. Unremarkable pancreas and gallbladder. Borderline hepatomegaly, similar to 09/11/2015. No bowel obstruction, colitis or free air. Diverticulosis without acute diverticulitis. Appendix not seen. Right lower quadrant dialysis catheter and small to moderate amount of dialysate fluid. Small amount of fluid in abdominal wall near catheter entry site, seroma more likely than abscess. ED physician reviewed radiology report. Re-Evaluation - Re-Evaluation First Eval Re-Evaluation Time: 06:04 Change: Unchanged Comment: Discussed CT reuslts with the pt. She continues to be unable to tolerate PO intake. Abdominal Pain Fem Course/Dx - Course Course Of Treatment: Pt is a 36 y/o F BIBA who presents to ED c/o diffuse abdominal pain characterized as cramping. Pain has been present for the last 6 days and is currently moderate, ranked 7/10, particularly worse on the left side. Additionally c/o N/V, chills, dizziness and "tacky"/"sticky" BM. Sx aggravated by PO intake, alleviated by nothing. Reports that she is unable to tolerate any PO intake. Has Zofran Rx which she cannot keep down. Is not currently on any blood thinners. Pt was seen in [place] in the ED and by Dr. Solis [address] Pedraza yesterday. CT Abd/pel radiologist interpretation above. WBC of 12.2, amylase is <10, CRP of 12.37, creatinine of 3.82. In the ED course, pt was given Dilaudid, Reglan and fluids. Discussed care of pt with Dr. Gonsalves who will give a hospitalist consult in the ED. Pt will be signed out, pending dispoition, awaiting consultation. She understands and agrees. Elevated BP noted. - Diagnoses Differential Diagnosis: Positive: Bowel Obstruction, Diverticulitis, Pancreatitis, Other - peritonitis, chronic renal failure, colitis, dehydration Provider Diagnoses: Abdominal pain, Vomiting, Chronic renal failure - Provider Notifications Discussed Care Of Patient With: Torito Gonsalevs Time Discussed With Above Provider: 06:21 Instructed by Provider To: Other - Will give a hospitalist consult in the ED. Discharge - Discharge Plan Condition: Stable Disposition: OTHER Discharge Disposition Comment: Pt will be signed out, pending disposition, awaiting hospitalist consult Referrals: Aishwarya Solis MD [Primary Care Provider] - The documentation as recorded by the Omid sexton Rebecca accurately reflects the service I personally performed and the decisions made by me, John Paul Rogers MD.
[2016-11-02] MEDS ORDERED: HYDROmorphone* 1 MG/ML 1 ML CARPUJECT IV SLOW PU ONE (06:51)
[2016-11-02] MEDS ORDERED: Ondansetron INJ* 2 MG/ML VIAL IV ONE (06:52)
[2016-11-02] MEDS ORDERED: PROCHLORPERAZINE INJ 5 MG/ML 2 ML VIAL IV PRN (07:56)
[2016-11-02] MEDS ORDERED: Metoclopramide IV* 5 MG/ML 2 ML VIAL IV PRN ×2 (07:56→08:12)
[2016-11-02] MEDS ORDERED: Ondansetron INJ* 2 MG/ML VIAL IV PRN (07:56)
--- NOTE | 2016-11-02 07:59 | RAD ---
INDICATION: Abdominal pain. COMPARISON: CTA aortogram and runoff May 19, 2016 TECHNIQUE: Noncontrast axial source images were obtained from the hemidiaphragms to the symphysis pubis. This examination was ordered using a renal stone protocol which is performed without oral or intravenous contrast and therefore has inherent limitations when used to evaluate other intra-abdominal or intrapelvic pathology. Consider conventional contrast enhanced imaging if clinically . Lung bases: The lung bases are clear. Liver: The liver is top normal in size. Noncontrast imaging shows no evidence of a hepatic mass or ductal dilatation. Gallbladder: The gallbladder is contracted and consequently not well evaluated. Spleen: The spleen is normal in size. The noncontrast CT appearance is normal. Pancreas: Noncontrast imaging shows no pancreatic mass or ductal dilitation. Adrenal glands: No masses are identified. Kidneys/Bladder: There is no evidence of nephrolithiasis or CT evidence of hydronephrosis. Noncontrast imaging shows no evidence of a renal mass. The bladder is unremarkable.. Adenopathy: There is no evidence of intraperitoneal or retroperitoneal adenopathy. Evaluation is limited without oral contrast. Fluid collections: Moderate free fluid in this patient who is undergoing peritoneal dialysis. The dialysis catheter is positioned in the right lower quadrant. Vessels: There are atherosclerotic changes of the aorta and iliac vessels. There is no focal aneurysm. The IVC appears normal Pelvic organs: The uterus and adnexa appear normal GI tract: Evaluation of the bowel is limited without oral contrast. The stomach, small bowel, and lower GI tract appear grossly normal. There are no obstructive findings. The appendix is visualized and appears normal. Soft tissues: No soft tissue abnormalities of the extraperitoneal abdomen or pelvis are identified. Osseous structures: There are no acute osseous findings. IMPRESSION: NO CT EVIDENCE OF UROLITHIASIS. PERONEAL DIALYSIS FLUID/DIALYSIS CATHETER. NO ACUTE CT FINDINGS.
[2016-11-02] MEDS ORDERED: Methadone TAB* 10 MG PO PRN (08:01)
[2016-11-02] MEDS ORDERED: Albuterol HFA INHALER* 8 gm MDI INH PRN (08:01)
[2016-11-02] MEDS ORDERED: Dextrose 50% Syringe 50 ML* 25 GM/50 ML SYRINGE IV PUSH PRN (08:06)
[2016-11-02 08:24] LABS: Troponin I 0.03 ng/mL (<0.04)
[2016-11-02] MEDS ORDERED: Aspirin Low Dose CHEW TAB* 81 MG PO SCH (09:00)
[2016-11-02] MEDS ORDERED: Gabapentin CAP(*) 300 MG PO SCH (09:00)
[2016-11-02] MEDS ORDERED: Insulin GLARGINE(*) 1 UNITS UNIT SUBCUT SCH (09:00)
[2016-11-02] MEDS ORDERED: Gabapentin CAP(*) 100 MG PO SCH (09:29)
[2016-11-02 09:45] VITALS: BP 186/95
[2016-11-02] MEDS ORDERED: Insulin LISPRO* 1 UNITS UNIT SUBCUT SCH (11:30)
[2016-11-02 11:36] LABS: Body Fluid WBC 7 /mcL
--- NOTE | 2016-11-02 13:09 | HP ---
CC: Dr. Solis; Dr. Marrufo * HISTORY AND PHYSICAL: DATE OF ADMISSION: 11/02/16 PRIMARY CARE PROVIDER: Dr. Solis. TRANSFER OPERATOR: Dr. Marrufo. CHIEF COMPLAINT: Abdominal pain, nausea, and vomiting. HISTORY OF PRESENT ILLNESS: Ms. Wright is a 36-year-old female, well known to the hospitalist service from multiple previous hospitalizations, who has a history of poorly controlled insulin dependent diabetes, end-stage renal disease on peritoneal dialysis, peripheral neuropathy, peripheral vascular disease, coronary artery disease, hypertension, hyperlipidemia, depression and anxiety, who presents to the emergency room with complaints of abdominal pain, nausea, and vomiting. The patient was recently hospitalized at [facility] [place] from through 09/20/16. At that time, she ended up leaving the hospital against medical advice. There were concerns for foot infection at that point. The patient ultimately ended up presenting to the emergency room several more times since then. She states, however, that she was admitted to [facility] [address] 2 to 3 weeks ago and left just this past after having stents placed in her left leg. The patient states that during that hospitalization in addition to having stenting procedure done to her left leg, she had fairly persistent nausea and vomiting as well as abdominal discomfort. The patient does not really recall what happened during the hospitalization. She states that since she got home; however, she has had chills. She has had pressure in her abdomen, vomiting, constant nausea, as well as numerous other complaints. The patient states that in terms of her peritoneal dialysis, it has been going okay. She denies seeing any cloudiness or fibrin in her dialysate. The patient denies any recent sick contacts. PAST MEDICAL HISTORY: 1. Poorly controlled insulin dependent diabetes. 2. End-stage renal disease, on peritoneal dialysis. 3. Peripheral neuropathy. 4. Coronary artery disease. 5. Hypertension. 6. Hyperlipidemia. 7. Peripheral vascular disease. 8. Asthma. 9. GERD. 10. Depression. 11. Anxiety. PAST SURGICAL HISTORY: 1. Peritoneal dialysis catheter insertion. 2. Right transmetatarsal amputation. 3. Right lower extremity arterial stenting. 4. Left lower extremity arterial stenting. 5. Left eye prosthesis. MEDICATIONS: The patient does not know her medications. This is from prior hospitalization: 1. Aspirin 81 mg p.o. daily. 2. Albuterol 2 puffs inhaled q.6 hours p.r.n. shortness of breath. 3. Amlodipine 10 mg p.o. daily. 4. Omeprazole 20 mg p.o. q.h.s. 5. Reglan 10 mg p.o. q.6 hours p.r.n. nausea. 6. Methadone 10 mg p.o. q.6 hours p.r.n. pain. 7. Cozaar 100 mg p.o. q.h.s. 8. Imdur 60 mg p.o. q.h.s. 9. Lantus 80 units subcutaneous twice daily. 10. NovoLog sliding scale subcutaneous a.c. 11. Gabapentin 100 mg p.o. t.i.d. 12. Lipitor 80 mg p.o. q.h.s. ALLERGIES: AUGMENTIN, HEPARIN, FLAGYL, MORPHINE, REQUIP, BACTRIM, CODEINE, ERYTHROMYCIN, NIACIN, and PLASTIC TAPE. FAMILY HISTORY: The patient's parents are both diabetic. SOCIAL HISTORY: The patient is a pack per day smoker for at least 18 years. She does not drink alcohol. She denies any recreational drug use. She is disabled. She has a boyfriend. She has no children. The patient indicates that her boyfriend would be her healthcare proxy. REVIEW OF SYSTEMS: The patient admits to fevers as high as 100, chills, anorexia, chest pressure, this has been going on for the last couple of days that comes and goes. Lower extremity edema that developed a couple of weeks ago , she states this is now getting a little bit better. She admits to cough, which is chronic, but shortness of breath, it has been associated with the chest pain. She admits to nausea, vomiting, diarrhea that started on the day of presentation to the emergency room. She thinks she has gone 6 times today. She admits to abdominal pain. She does make urine. She denies any dysuria. She complains of left-sided weakness that has been chronic for the last 6 months. No sudden changes in his visio. No dysphagia. No joint pains or muscle pains out of ordinary. No rashes. She does admit to anxiety and depression. PHYSICAL EXAMINATION GENERAL: The patient is a well-developed, young, chronically ill appearing female, who also appears much older than her stated age, lying in a stretcher in no acute distress. VITAL SIGNS: Blood pressure 144/68, pulse 81, respirations 15, temp 97.5, O2 sat 82% on room air. HEENT: The right pupil is round and reactive to light. The right extraocular muscles are intact. Left eye has a prosthesis. The oropharynx is clear. There is no submandibular, cervical, or supraclavicular adenopathy. Thyroid is not enlarged. No thyroid nodules are noted. PULMONARY: Lungs are clear to auscultation bilaterally, though breath sounds are diminished in all lung hernandez. CARDIAC: Normal S1 and S2. Regular rate and rhythm. I do not appreciate any murmurs. There is trace left lower extremity edema. ABDOMEN: Bowel sounds are present, but hypoactive. There are number of scars on the patient's abdomen. She does not complain of any tenderness upon palpation of the abdomen. MUSCULOSKELETAL: The patient is status post right transmetatarsal amputation. There is otherwise no clubbing or cyanosis of the digits. There is full active range of motion. SKIN: Warm, it is dry. I do not appreciate any rashes. The patient does have almost quarter-sized wound to the incision of the right transmetatarsal amputation on the lateral aspect of the incision. There is no surrounding erythema. There is a mild amount of slough within the wound base. NEURO: Cranial nerves II through XII are grossly intact. Sensation is intact to light touch. Strength is 5/5 and symmetric in both upper and lower extremities bilaterally. PSYCH: The patient is alert. She is oriented x3. Affect appears appropriate. LABORATORY DATA/DIAGNOSTIC STUDIES: WBC 12.2, hemoglobin 13.2, hematocrit 41, and platelets 487. INR 0.92. Sodium 135, potassium 4.2, chloride 100, CO2 28, BUN 24, creatinine 3.82, glucose 174, lactic acid 1.2, calcium 8.8, bilirubin 0.3, AST 8, ALT 3, alk phos 99. Troponin 0.03, repeated 0.02. CRP 12.37. Albumin 2.9, amylase less than 10, lipase is 26. EKG reveals normal sinus rhythm without any acute ST-T wave abnormalities. CT abdomen and pelvis reveals no urolithiasis or acute findings. Peritoneal dialysis fluid and catheter are noted. ASSESSMENT AND PLAN: Ms. Wright is a 36-year-old chronically ill female, who presents to the emergency room with complaints of abdominal pain, nausea, vomiting, chest pain and shortness of breath. 1. Abdominal pain, nausea, and vomiting. The etiology of this is not completely clear. I am suspicious that she likely has gastroparesis with all of her other diabetic complications. A gastric emptying study has been ordered. The patient claims that she is unable to keep anything down; however, she does not look volume deplete on exam nor is her lactic acid level elevated. The patient will be given a clear liquid diet once her gastric emptying study is complete. She does have Reglan already at home, but perhaps another agent may be necessary. 2. Chest pain. The patient states that this has been going on for the last couple of days. Her first 2 troponins are negative. The third is pending. Her EKG does not reveal any acute findings. I do not feel that any further workup for this is needed at this point. The patient did undergo stress testing in August of 2015, which revealed a small fixed defect of the distal septum and lateral wall. 3. Shortness of breath. The patient is requiring supplemental oxygen. It is unclear if this has been necessary in her previous hospitalizations as well. Her lungs were clear. I will go ahead and get a portal chest x-ray to evaluate for infiltrate or pulmonary edema. 4. Peripheral vascular disease. The patient states that she recently underwent stenting to the left lower extremity. She previously had the right lower extremity stented. I will try to get these records from [facility] [address]. 5. End-stage renal disease. The dialysis unit has been notified of the patient 's admission. In addition to continuing on her peritoneal dialysis, I have asked that a sample of the peritoneal dialysis fluid be sent to the lab for testing for cell count, Gram stain and culture. 6. Hypertension. The patient's blood pressure at this point is moderately elevated. She will be maintained on her usual home medication regimen. 7. Insulin-dependent diabetes. The patient states that she does not know if she is a type 1 or type 2 diabetic. She states that she was at one point on pills for her diabetes. She is essentially going to be n.p.o. or on clear liquid diet for now; therefore, I will cut her Lantus to 40 units subcutaneous twice daily for now and if her sugars become markedly elevated, this will be increased back up to her home dose. Additionally, she will be placed on a lispro sliding scale. The patient's last hemoglobin A1c in our system was obtained in June 2016 and is markedly elevated at 14.3%. I will check a new hemoglobin A1c to see if she has had any improved control in her blood sugars. 8. Hyperlipidemia. The patient will be maintained on her usual dose of Lipitor. 9. DVT prophylaxis. According to the Adult Thrombosis Prophylaxis Risk Factor Assessment Guide, the patient has a total risk factor score of 1 making her low risk. She states that she is allergic to HEPARIN and she is no longer on any anticoagulants. SCDs will be utilized as DVT prophylaxis. 10. Code status is full. TIME SPENT: 65 minutes was spent admitting this patient. [id number]/[facility] #: [id number] VIRI
[2016-11-02 14:16] LABS: Body Fluid Total Cells Counted 100
[2016-11-02 14:25] LABS: Body Fluid Appearance Clear
[2016-11-02] MEDS ORDERED: Omeprazole CAP* 20 MG PO SCH (18:00)
[2016-11-02] MEDS ORDERED: Isosorbide Mononitrate ER TAB* 60 MG PO SCH (18:00)
[2016-11-02] MEDS ORDERED: Atorvastatin* 80 MG TAB PO SCH (18:00)
[2016-11-02] MEDS ORDERED: Losartan TAB* 25 MG PO SCH (18:00)
[2016-11-02] MEDS ORDERED: amLODIPine TAB* 5 MG PO SCH (18:00)
--- NOTE | 2016-11-03 07:52 | DS ---
CC: Dr. Solis; Dr. Marrufo * DISCHARGE SUMMARY: DATE OF ADMISSION: 11/02/16 DATE OF DISCHARGE: 11/02/16 PRIMARY CARE PROVIDER: Dr. Solis. ENVIRONMENTAL HEALTH SAFETY MANAGER: Dr. Marrufo. PRINCIPAL DIAGNOSES: 1. Abdominal pain. 2. Nausea. 3. Vomiting. DISCHARGE MEDICATIONS: The patient is to resume home medication list, which was not clear on admission, but currently appears to be: 1. Aspirin 81 mg p.o. daily. 2. Albuterol 2 puffs inhaled q.6 hours p.r.n. shortness of breath. 3. Amlodipine 10 mg p.o. q.h.s. 4. Omeprazole 20 mg p.o. q.h.s. 5. Reglan 10 mg p.o. q.6 hours p.r.n. nausea. 6. Methadone 10 mg p.o. q.6 hours p.r.n. nausea. 7. Losartan 100 mg p.o. q.h.s. 8. Imdur 60 mg p.o. q.h.s. 9. Lantus 80 units subcutaneous b.i.d. 10. NovoLog sliding scale q.a.c. 11. Gabapentin 100 mg p.o. t.i.d. 12. Lipitor 80 mg p.o. q.h.s. HOSPITAL COURSE: Ms. Wright was admitted on the morning of 11/02/16 and approximately 30 minutes after she arrived to the floor, she decided that she wanted to leave against medical advice. The patient states that she was able to take methadone with water and keep that down and, therefore, she wished to leave the hospital. The patient left the hospital with uncontrolled blood pressure. She would not wait to try to get this under control. She did not wait for me to reevaluate her and to discuss leaving against medical advice and the issues that this may cause. The patient refused a chest x-ray and was noncompliant with all care. Again, the patient left without being seen by myself. FOLLOWUP CONCERNS: The patient should follow up with her primary care provider , though again this was unable to be relayed to her. ACTIVITY LEVEL: As tolerated. DIET: As tolerated. CONDITION ON DISCHARGE: Stable, but essentially unevaluated for her complaints that she presented to the emergency room with earlier on the morning of admission. TIME SPENT: Ten minutes was spent on this discharge. [id number]/[facility] #: [id number] VIRI
== END 2016-11-02 10:39 | disposition left against medical advice (07) ==
LOC: ED 23:22 → MEDTELE 11-02 07:56
PROVIDERS: ADMIT Hospitalist; ATTEND Hospitalist
DX: R10.84 Generalized abdominal pain (principal); R11.2 Nausea with vomiting, unspecified; R68.83 Chills (without fever); R06.02 Shortness of breath; R42 Dizziness and giddiness; F17.210 Nicotine dependence, cigarettes, uncomplicated; Z79.899 Other long term (current) drug therapy; N18.6 End stage renal disease; I12.0 Hypertensive chronic kidney disease with stage 5 chronic kidney disease or end stage renal disease; E11.9 Type 2 diabetes mellitus without complications; Z79.4 Long term (current) use of insulin; E78.5 Hyperlipidemia, unspecified
CPT/HCPCS: 36415; 74176; 80053; 82150; 83036; 83605; 83690; 84484; 85025; 85610; 86140; 87040; 87070; 87205; 89051; 90945; 93005; 96361; 96374; 96375; 96376; 99283; A9270-GY; G0257; G0378; J0780; J1170; J2405; J2765

== ENCOUNTER 2016-11-03 15:22 | Emergency (ER) | payer OTHER ==
[2016-11-03 16:59] LABS: Hematocrit 40 % (35-47); Hemoglobin 13.3 g/dl (12.0-16.0); Mean Corpuscular HGB Conc 34 g/dl (31-36); Mean Corpuscular Hemoglobin 30 pg (27-31); Mean Corpuscular Volume 88 fL (80-97); Mean Platelet Volume 9 um3 (7.4-10.4); Red Blood Count 4.51 10^6/ul (4.0-5.4); Red Cell Distribution Width 16 % (10.5-15); White Blood Count 12.1 10^3/ul (3.5-10.8)
[2016-11-03] MEDS ORDERED: Ondansetron INJ* 2 MG/ML VIAL IV ONE (17:01)
[2016-11-03] MEDS ORDERED: Pantoprazole IV* 40 MG IV ONE (17:01)
[2016-11-03 17:13] LABS: ALT 3 U/L (7-52); Albumin 2.7 g/dL (3.2-5.2); Alkaline Phosphatase 95 U/L (34-104); BUN/Creatinine Ratio 5.4 (8-20); Blood Urea Nitrogen 19 mg/dL (6-24); C Reactive Protein 14.61 mg/L (< 5.00); CO2 Carbon Dioxide 29 mmol/L (22-32); Calcium 8.8 mg/dL (8.6-10.3); Chloride 102 mmol/L (101-111); EGFR African American 18.7 (>60); EGFR Non-African American 14.5 (>60); Globulin 3.3 g/dL (2-4); Glucose 144 mg/dL (70-100); Lipase 14 U/L (11.0-82.0); Sodium 137 mmol/L (133-145)
[2016-11-03 17:36] LABS: Anion Gap 6 mmol/L (2-11)
--- NOTE | 2016-11-03 18:42 | ED ---
Cirilo Palacio Nikita, scribed for Km Harper MD on 11/03/16 at 1629 . Complex/Multi-Sys Presentation - HPI Summary HPI Summary: This patient is a 36 year old F BIBA to ED with a chief complaint of N/V/D since 1 week ago. Pt was in the hospital yesterday where CT scans were done. Pt left AMA. The CC is described as constant and aching. The patient rates the pain 8/10 in severity. Symptoms aggravated by nothing. Symptoms alleviated by nothing. Patient reports intermittent fever, abdominal pain, and appetite changes (vomits all intake). PMHx of HTN, malignant melanoma, vulva CA, asthma, Type 2 DM, renal insufficiency, bipolar, anxiety, Hemodialysis started Nov 2013 , cardiac arrest Jan 2014 from complications of hemodialysis, depression, HLD, gastroparesis (takes Reglan, Zofran, Triptyline), neuropathy, and CAD ( unstentable). - History Of Current Complaint Chief Complaint: EDNauseaVomitDiarrh Time Seen by Provider: 11/03/16 16:03 Hx Obtained From: Patient Onset/Duration: Sudden Onset, Lasting Weeks - 1 week ago, Still Present Timing: Constant Severity Initially: Severe - 8/10 Location: Pain At: - Abdominal area Character: Unable To Describe - aching Aggravating Factor(s): nothing Alleviating Factor(s): nothing Associated Signs And Symptoms: Positive: Other - Patient reports intermittent fever, abdominal pain, and appetite changes (vomits all intake). - Allergies/Home Medications Allergies/Adverse Reactions: Allergies Allergy/AdvReac Type Severity Reaction Status Date / Time Amoxicillin [From Augmentin] Allergy See Comment Verified 10/31/16 00:59 Clavulanic Acid Allergy See Comment Verified 10/31/16 00:59 [From Augmentin] Heparin Allergy See Comment Verified 10/31/16 00:59 Metronidazole [From Flagyl] Allergy Nausea And Verified 10/31/16 00:59 Vomiting Morphine Allergy See Comment Verified 10/31/16 00:59 Ropinirole [From Requip] Allergy Hives Verified 10/31/16 00:59 Sulfamethoxazole Allergy Nausea And Verified 10/31/16 00:59 w/Trimethoprim Vomiting [From Bactrim] Codeine AdvReac Nausea And Verified 10/31/16 00:59 Vomiting Erythromycin AdvReac "DOESN'T Verified 10/31/16 00:59 WORK" Niacin AdvReac Hives Verified 10/31/16 00:59 plastic tape Allergy Blisters Uncoded 10/31/16 00:59 PMH/Surg Hx/FS Hx/Imm Hx Endocrine/Hematology History: Reports: Hx Anticoagulant Therapy - Aspirin., Hx Blood Transfusions, Hx Diabetes, Hx Thyroid Disease - nodule biopsied, normal, Hx Anemia - hx of - reports had tranfusion in 2013 after mi Cardiovascular History: Reports: Hx Angina, Hx Cardiac Arrest - in 2013 with CPR, Hx Cardiomegaly, Hx Coronary Artery Disease, Hx Hypercholesterolemia, Hx Hypertension, Hx Myocardial Infarction, Other Cardiovascular Problems/ Disorders - hyperlipidemia, CAD Denies: Hx Congestive Heart Failure, Hx Deep Vein Thrombosis, Hx Pacemaker/ ICD, Hx Valvular Heart Disease Respiratory History: Reports: Hx Asthma, Hx Chronic Obstructive Pulmonary Disease (COPD) - smoker, Hx Sleep Apnea - pt reports thinks, but no official testing done yet, Other Respiratory Problems/Disorders - acute respipatory failure with hypoxia - jan 2016 Denies: Hx Lung Cancer, Hx Pneumonia, Hx Pulmonary Embolism GI History: Reports: Hx Gastroesophageal Reflux Disease, Other GI Disorders - GASTROPARESIS - TAKING OMEPRAZOLE Denies: Hx Gall Bladder Disease, Hx Gastrointestinal Bleed, Hx Ulcer, Hx Urosepsis History: Reports: Hx Acute Renal Failure, Hx Chronic Renal Failure, Hx Dialysis - PERITONEAL, Hx Kidney Stones - in past, Hx Renal Disease - ESRD on home peritoneal dialysis , Other Problems/Disorders - ESRD- URINATES A SMALL AMOUNT Musculoskeletal History: Reports: Hx Arthritis - back, hips, Hx Back Problems - Sciatica and Herniated L3 disk Sensory History: Reports: Hx Eye Prosthesis - left, 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 Stage 5 Renal failure/dialysis Hx Chemotherapy: No Hx Radiation Therapy: No - Surgical History Surgery Procedure, Year, and Place: LEFT EYE REMOVED 2011 - HAS PROSTHETIC EYE ( ORBITS DONE 06/[address] LIGIA COY TO SCAN IN MRI) ;. MELANOMA REMOVED FROM [facility] 2012 (PROCEDURE DONE 4X);. CARDIAC CATH 2013 - NO STENTS;. LEFT WRIST FISTULA PLACEMENT ([facility]) 2013;. HEMODIALYSIS CATH RIGHT CHEST WALL 2013;. PERITONEAL DIALYSIS CATH 03/2014;. CHEST WALL CATH REMOVAL 08/2015 [facility] [place];. RIGHT GREAT TOE AMPUTATION, [facility] 05/2015;. PLACEMENT RIGHT JUGULAR TESIO HEMODIALYSIS CATHETER [facility] [place] 10/22/2015;. REMOVAL OF JUGULAR CATH - OCT 2015. CARDIAC CATH - stentsx2 right leg. PARTIAL AMPUTATION RIGHT TOES 06/2016 Hx Anesthesia Reactions: No - Immunization History Date of Tetanus Vaccine: UTD Date of Influenza Vaccine: 10/10/15 Infectious Disease History: No Infectious Disease History: Reports: Hx of Known/Suspected MRSA - MRSA R 1st toe Denies: Hx Clostridium Difficile, Hx Hepatitis, Hx Human Immunodeficiency Virus (HIV), Hx Shingles, Hx Tuberculosis, History Other Infectious Disease, Traveled Outside the in Last 30 Days - Family History Known Family History: Positive: Cardiac Disease - father [facility] at 42 y/o, Hypertension, Other - Positive for bipolar and depression. Completed suicide to sister. - Social History Alcohol Use: None Hx Substance Use: No Substance Use Type: Reports: Prescribed Substance Use Comment - Amount & Last Used: METHADONE Hx Tobacco Use: Yes Smoking Status (MU): Heavy Every Day Tobacco Smoker Type: Cigarettes Amount Used/How Often: 1 PPD Length of Time of Smoking/Using Tobacco: 20 YEARS Have You Smoked in the Last Year: Yes Review of Systems Positive: Fever Positive: Abdominal Pain - constant and aching, Vomiting, Diarrhea, Nausea, Other - appetite changes (vomits all intake) All Other Systems Reviewed And Are Negative: Yes Physical Exam Triage Information Reviewed: Yes Vital Signs On Initial Exam: Initial Vitals Temp Pulse Resp BP Pulse Ox 97.9 F 102 18 170/100 97 11/03/16 15:31 11/03/16 15:31 11/03/16 15:31 11/03/16 15:31 11/03/16 15:31 Vital Signs Reviewed: Yes Appearance: Positive: Well-Appearing, No Pain Distress Skin: Positive: Warm, Skin Color Reflects Adequate Perfusion, Dry Head/Face: Positive: Normal Head/Face Inspection Eyes: Positive: Normal ENT: Positive: Normal ENT inspection Neck: Positive: Supple, Nontender Respiratory/Lung Sounds: Positive: Clear to Auscultation, Breath Sounds Present Cardiovascular: Positive: RRR Abdomen Description: Positive: Soft, Other: - Tender to palpation Bowel Sounds: Positive: Present Musculoskeletal: Positive: Normal Neurological: Positive: Normal, Sensory/Motor Intact, Alert, Oriented to Person Place, Time, CN Intact II-III Psychiatric: Positive: Affect/Mood Appropriate - Hepler Coma Scale Coma Scale Total: 15 Diagnostics - Vital Signs Vital Signs Temp Pulse Resp BP Pulse Ox 11/03/16 15:32 23 170/100 11/03/16 15:31 97.9 F 104 17 170/100 96 - Laboratory Lab Results: Lab Results 11/03/16 11/03/16 11/03/16 Range/Units 16:35 16:35 16:35 WBC 12.1 H (3.5-10.8) 10^3/ul RBC 4.51 (4.0-5.4) 10^6/ul Hgb 13.3 (12.0-16.0) g/dl Hct 40 (35-47) % MCV 88 (80-97) fL MCH 30 (27-31) pg MCHC 34 (31-36) g/dl RDW 16 H (10.5-15) % Plt Count 466 H (150-450) 10^3/ul MPV 9 (7.4-10.4) um3 Neut % (Auto) 81.9 (38-83) % Lymph % (Auto) 10.9 L (25-47) % Harvey % (Auto) 4.6 (1-9) % Eos % (Auto) 1.5 (0-6) % Baso % (Auto) 1.1 (0-2) % Absolute Neuts (auto) 9.9 H (1.5-7.7) 10^3/ul Absolute Lymphs (auto) 1.3 (1.0-4.8) 10^3/ul Absolute Monos (auto) 0.6 (0-0.8) 10^3/ul Absolute Eos (auto) 0.2 (0-0.6) 10^3/ul Absolute Basos (auto) 0.1 (0-0.2) 10^3/ul Absolute Nucleated RBC 0 10^3/ul Nucleated RBC % 0 Sodium 137 (133-145) mmol/L Potassium TNP Chloride 102 (101-111) mmol/L Carbon Dioxide 29 (22-32) mmol/L Anion Gap 6 (2-11) mmol/L BUN 19 (6-24) mg/dL Creatinine 3.54 H (0.51-0.95) mg/dL Est GFR ( Amer) 18.7 (>60) Est GFR (Non-Af Amer) 14.5 (>60) BUN/Creatinine Ratio 5.4 L (8-20) Glucose 144 H (70-100) mg/dL Lactic Acid 0.8 (0.5-2.0) mmol/L Calcium 8.8 (8.6-10.3) mg/dL Total Bilirubin 0.40 (0.2-1.0) mg/dL AST TNP ALT 3 L (7-52) U/L Alkaline Phosphatase 95 (34-104) U/L C-Reactive Protein 14.61 H (< 5.00) mg/L Total Protein 6.0 L (6.4-8.9) g/dL Albumin 2.7 L (3.2-5.2) g/dL Globulin 3.3 (2-4) g/dL Albumin/Globulin Ratio 0.8 L (1-3) Lipase 14 (11.0-82.0) U/L Beta HCG, Quant < 0.60 mIU/mL 11/03/16 Range/Units 17:50 WBC (3.5-10.8) 10^3/ul RBC (4.0-5.4) 10^6/ul Hgb (12.0-16.0) g/dl Hct (35-47) % MCV (80-97) fL MCH (27-31) pg MCHC (31-36) g/dl RDW (10.5-15) % Plt Count (150-450) 10^3/ul MPV (7.4-10.4) um3 Neut % (Auto) (38-83) % Lymph % (Auto) (25-47) % Harvey % (Auto) (1-9) % Eos % (Auto) (0-6) % Baso % (Auto) (0-2) % Absolute Neuts (auto) (1.5-7.7) 10^3/ul Absolute Lymphs (auto) (1.0-4.8) 10^3/ul Absolute Monos (auto) (0-0.8) 10^3/ul Absolute Eos (auto) (0-0.6) 10^3/ul Absolute Basos (auto) (0-0.2) 10^3/ul Absolute Nucleated RBC 10^3/ul Nucleated RBC % Sodium (133-145) mmol/L Potassium TNP Chloride (101-111) mmol/L Carbon Dioxide (22-32) mmol/L Anion Gap (2-11) mmol/L BUN (6-24) mg/dL Creatinine (0.51-0.95) mg/dL Est GFR ( Amer) (>60) Est GFR (Non-Af Amer) (>60) BUN/Creatinine Ratio (8-20) Glucose (70-100) mg/dL Lactic Acid (0.5-2.0) mmol/L Calcium (8.6-10.3) mg/dL Total Bilirubin (0.2-1.0) mg/dL AST TNP ALT (7-52) U/L Alkaline Phosphatase (34-104) U/L C-Reactive Protein (< 5.00) mg/L Total Protein (6.4-8.9) g/dL Albumin (3.2-5.2) g/dL Globulin (2-4) g/dL Albumin/Globulin Ratio (1-3) Lipase (11.0-82.0) U/L Beta HCG, Quant mIU/mL Result Diagrams: 11/03/16 16:35 11/03/16 17:50 Lab Statement: Any lab studies that have been ordered have been reviewed, and results considered in the medical decision making process. Complex Multi-Symp Course/Dx Course Of Treatment: Ms. Wright returned today after signing out of the hospital 30 minutes after admission yesterday. She C/O'd the same epigastric pain and vomiting. Her labs were unchanged and she was D/C'd to F/U with her PMD. This seems like gastroparesis to me. - Diagnoses Provider Diagnoses: Abdominal pain - Physician Notifications Discussed Care Of Patient With: Lore Rothman Time Discussed With Above Provider: 16:23 Instructed by Provider To: Other - Consulted Dr. Rothman about the pt who recommends to recheck the labs. Discharge - Discharge Plan Condition: Stable Disposition: HOME Patient Education Materials: Abdominal Pain (ED) Referrals: Aishwarya Solis MD [Primary Care Provider] - 3 Days The documentation as recorded by the Cirilo sexton Nikita accurately reflects the service I personally performed and the decisions made by me, Km Harper MD.
[2016-11-03 18:45] VITALS: BP 150/77
== END 2016-11-03 18:46 | disposition home or self-care (01) ==
LOC: ED 15:22
DX: R10.9 Unspecified abdominal pain (principal); I12.0 Hypertensive chronic kidney disease with stage 5 chronic kidney disease or end stage renal disease; N18.6 End stage renal disease; Z99.2 Dependence on renal dialysis; E11.22 Type 2 diabetes mellitus with diabetic chronic kidney disease; F31.9 Bipolar disorder, unspecified; E78.5 Hyperlipidemia, unspecified; K31.84 Gastroparesis; I25.10 Atherosclerotic heart disease of native coronary artery without angina pectoris; F32.9 Major depressive disorder, single episode, unspecified; F41.9 Anxiety disorder, unspecified; Z79.82 Long term (current) use of aspirin; Z86.74 Personal history of sudden cardiac arrest; I25.2 Old myocardial infarction; C51.9 Malignant neoplasm of vulva, unspecified
CPT/HCPCS: 36415; 80053; 83605; 83690; 84702; 85025; 86140; 96374; 96375; 99283; J2405

== ENCOUNTER 2016-11-05 19:26 | Emergency (ER) | payer OTHER ==
--- NOTE | 2016-11-05 21:22 | ED ---
Abdominal Pain/Female - HPI Summary HPI Summary: Pt here w/ ab pain x 1 week - "all over". She's been seen multiple times w/o known cause of her pain, N/V other than gastroparesis. Her labs have been comparable each time and CT w/o acute findings. She has h/o yeast infection and has had d/c w/o itching. Would like pelvic exam to see if this is cause of pain/ discharge. She has known gastroparesis and takes reglan and zofran at home - hsa not been helping lately but does not want any through an IV here tonight either as she reports it doesn't help. Has not been using diabetic insulin medications as she reports N/V and no appetite from ab pain - hs not checked glucose level at home. Her previous visits do not indicate dehydration as a result of these complaints nor DKA. Glucose has been mildly elevated in 140's which is good for her as she lives on the 200's. She has ESRD and is on dialysis via peritoneal catheter - no new sx to report at this time since past few visit - feels same as she has all week. Reports PCP suggested endoscope. H/ o HPV on pap - following w/ PCP to see if it clears. H/o vulvar melanoma - routine f/u for this as well w/o concerns. Does still have her gallbladder. - History of Current Complaint Chief Complaint: Li Stated Complaint: ABD PAIN Time Seen by Provider: 11/05/16 19:42 Hx Obtained From: Patient Hx Last Menstrual Period: June 2016 Pain Intensity: 8 Allergies/Adverse Reactions: Allergies Allergy/AdvReac Type Severity Reaction Status Date / Time Heparin Allergy Intermediate pt states Verified 11/06/16 20:58 it gave her a blood clot Niacin Allergy Mild Hives Verified 11/06/16 20:58 Ropinirole [From Requip] Allergy Mild Hives Verified 11/06/16 20:58 Amoxicillin [From Augmentin] AdvReac Mild "Doesn't Verified 11/06/16 20:58 work" Clavulanic Acid AdvReac Mild "Doesn't Verified 11/06/16 20:58 [From Augmentin] work" Codeine AdvReac Mild Nausea And Verified 11/06/16 20:58 Vomiting Erythromycin AdvReac Mild "DOESN'T Verified 11/06/16 20:58 WORK" Metronidazole [From Flagyl] AdvReac Mild Nausea And Verified 11/06/16 20:58 Vomiting Morphine AdvReac Mild "Doesn't Verified 11/06/16 20:58 work" Sulfamethoxazole AdvReac Mild Nausea And Verified 11/06/16 20:58 w/Trimethoprim Vomiting [From Bactrim] plastic tape Allergy Mild Blisters Uncoded 11/06/16 20:59 PMH/Surg Hx/FS Hx/Imm Hx Previously Healthy: No - ESRD, chronic vomiting Endocrine/Hematology History: Reports: Hx Anticoagulant Therapy - Aspirin., Hx Blood Transfusions, Hx Diabetes - insulin dependent, Hx Thyroid Disease - nodule biopsied, normal, Hx Anemia - hx of - reports had tranfusion in 2013 after mi Cardiovascular History: Reports: Hx Angina, Hx Cardiac Arrest - in 2013 with CPR, Hx Cardiomegaly, Hx Coronary Artery Disease, Hx Hypercholesterolemia, Hx Hypertension, Hx Myocardial Infarction, Other Cardiovascular Problems/ Disorders - hyperlipidemia, CAD Denies: Hx Congestive Heart Failure, Hx Deep Vein Thrombosis, Hx Pacemaker/ ICD, Hx Valvular Heart Disease Respiratory History: Reports: Hx Asthma, Hx Chronic Obstructive Pulmonary Disease (COPD) - smoker, Hx Sleep Apnea - pt reports thinks, but no official testing done yet, Other Respiratory Problems/Disorders - acute respipatory failure with hypoxia - jan 2016 Denies: Hx Lung Cancer, Hx Pneumonia, Hx Pulmonary Embolism GI History: Reports: Hx Gastroesophageal Reflux Disease, Other GI Disorders - GASTROPARESIS - TAKING OMEPRAZOLE, reglan and zofran Denies: Hx Gall Bladder Disease, Hx Gastrointestinal Bleed, Hx Ulcer, Hx Urosepsis History: Reports: Hx Acute Renal Failure, Hx Chronic Renal Failure, Hx Dialysis - PERITONEAL, Hx Kidney Stones - in past, Hx Renal Disease - ESRD on home peritoneal dialysis , Other Problems/Disorders - ESRD- URINATES A SMALL AMOUNT Musculoskeletal History: Reports: Hx Arthritis - back, hips, Hx Back Problems - Sciatica and Herniated L3 disk, Other Musculoskeletal History - partial amputation of toes/foot Sensory History: Reports: Hx Eye Prosthesis - left, 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 Stage 5 Renal failure/dialysis Hx Chemotherapy: No Hx Radiation Therapy: No - Surgical History Surgery Procedure, Year, and Place: LEFT EYE REMOVED 2011 - HAS PROSTHETIC EYE ( ORBITS DONE 06/[address] LIGIA COY TO SCAN IN MRI) ;. MELANOMA REMOVED FROM [facility] 2012 (PROCEDURE DONE 4X);. CARDIAC CATH 2013 - NO STENTS;. LEFT WRIST FISTULA PLACEMENT ([facility]) 2013;. HEMODIALYSIS CATH RIGHT CHEST WALL 2013;. PERITONEAL DIALYSIS CATH 03/2014;. [place]ST W[place] C[place] [facility] [place]. [place] GREAT [place]E AMPUT[place] [facility] [place];. PLACEMENT RIGHT JUGULAR TESIO HEMODIALYSIS CATHETER [facility] [place];. REMOVAL OF JUGULAR CATH - OCT 2015. CARDIAC CATH - stentsx2 right leg. PARTIAL AMPUTATION RIGHT TOES 06/2016 Hx Anesthesia Reactions: No - Immunization History Date of Tetanus Vaccine: UTD Date of Influenza Vaccine: 10/10/15 Infectious Disease History: No Infectious Disease History: Reports: Hx of Known/Suspected MRSA - MRSA R 1st toe Denies: Hx Clostridium Difficile, Hx Hepatitis, Hx Human Immunodeficiency Virus (HIV), Hx Shingles, Hx Tuberculosis, History Other Infectious Disease, Traveled Outside the [place] in Last 30 Days - Family History Known Family History: Positive: Cardiac Disease - father [place] at 42 y/o, Hypertension, Other - Positive for bipolar and depression. Completed suicide to sister. - Social History Lives: With Family - boyfriend Alcohol Use: None Hx Substance Use: No Substance Use Type: Reports: Prescribed Substance Use Comment - Amount & Last Used: METHADONE Hx Tobacco Use: Yes Smoking Status (MU): Heavy Every Day Tobacco Smoker Type: Cigarettes Amount Used/How Often: 1 PPD Length of Time of Smoking/Using Tobacco: 20 YEARS Have You Smoked in the Last Year: Yes Review of Systems Constitutional: Negative Negative: Fever, Chills Negative: Sore Throat Cardiovascular: Negative Negative: Chest Pain Respiratory: Negative Negative: Shortness Of Breath Gastrointestinal: Other - see HPI Positive: no symptoms reported Musculoskeletal: Negative Skin: Negative Neurological: Negative Psychological: Other - frustrated All Other Systems Reviewed And Are Negative: Yes Physical Exam Triage Information Reviewed: Yes Vital Signs On Initial Exam: Initial Vitals Temp Pulse Resp BP Pulse Ox 98 F 93 16 177/91 96 11/05/16 19:55 11/05/16 19:55 11/05/16 19:55 11/05/16 19:55 11/05/16 19:55 Vital Signs Reviewed: Yes Appearance: Positive: Obese - lying on side most of visit, does become tearful at end of vist Skin: Positive: Warm, Dry Eyes: Positive: Conjunctiva Clear - anicteric sclera, Other: - amblyopia ENT: Positive: Hearing grossly normal Dental: Positive: Other - edentulous Respiratory/Lung Sounds: Positive: Breath Sounds Present Cardiovascular: Positive: Normal, RRR Abdomen Description: Positive: Nontender, No Organomegaly, Soft Bowel Sounds: Positive: Present Pelvic Exam: Positive: speculum exam normal - milky white d/c -no joe curdy d/ c, no lesions, no blood - cervix not identified as pt in poor position and reports pain w/ speculum exam. Negative: external exam normal - missing pigmentation along inner mucosal border external labia - no joe lesions Musculoskeletal: Positive: Normal, Strength/ROM Intact Neurological: Positive: Alert, Oriented to Person Place, Time Psychiatric: Positive: Other - upset, tearful but calm and coopertative - Ronald Coma Scale Coma Scale Total: 15 Diagnostics - Vital Signs Vital Signs Temp Pulse Resp BP Pulse Ox 11/05/16 19:55 98 F 93 16 177/91 96 - Laboratory Lab Statement: Any lab studies that have been ordered have been reviewed, and results considered in the medical decision making process. Abdominal Pain Fem Course/Dx - Diagnoses Provider Diagnoses: Abdominal pain, Nausea and/or vomiting Discharge - Discharge Plan Condition: Stable Disposition: HOME Patient Education Materials: Chronic Abdominal Pain (ED), Acute Nausea and Vomiting (ED) Referrals: Aishwarya Solis MD [Primary Care Provider] - Additional Instructions: You have declined ED testing for abdominal symptoms tonight to recheck labs. We discussed possible need for an endoscope. A rectal exam was performed and will be resulted to your PCP if there is a possible bleed in your gastrointestinal tract. Your labs and vital signs are not indicating acute blood loss at this time. You were offered protonix however you reported this does not work well - you may continue your omeprazole at home as well as your nausea medication - again, you declined further nausea medications here tonight. It is suggested that you have your gallbladder and its function assessed as you do have diabetes which can place you at risk for pathology of this organ. Due to lack of active gallbladder symptoms here tonight and normal liver labs past few days , this may be assessed through your PCP. Also, if you vaginal cultures return with infection, we will call you to start medication which we can send to your pharmacy of choice. Please follow-up with your PCP tomorrow to schedule tests discussed. *If you have persistent vomiting, diarrhea, fever, chills, chest pain, shortness of breath, bloody cough, syncope, return to ED
[2016-11-05 22:07] VITALS: BP 142/91
== END 2016-11-05 22:06 | disposition home or self-care (01) ==
LOC: ED 19:26
DX: R10.9 Unspecified abdominal pain (principal); R11.2 Nausea with vomiting, unspecified; R06.02 Shortness of breath; F17.210 Nicotine dependence, cigarettes, uncomplicated
CPT/HCPCS: 82272; 87480; 87510; 87660; 87661; 99282

== ENCOUNTER 2016-11-06 19:01 | Observation (INO) | payer OTHER ==
[2016-11-06] MEDS ORDERED: NS 0.9% 1000 ML* 2,000 ML IV ONE (19:22)
[2016-11-06] MEDS ORDERED: Ondansetron INJ* 2 MG/ML VIAL IV ONE (19:22)
[2016-11-06 20:00] LABS: Hematocrit 43 % (35-47); Hemoglobin 14.1 g/dl (12.0-16.0); Mean Corpuscular HGB Conc 33 g/dl (31-36); Mean Corpuscular Hemoglobin 29 pg (27-31); Mean Corpuscular Volume 89 fL (80-97); Mean Platelet Volume 9 um3 (7.4-10.4); Red Cell Distribution Width 16 % (10.5-15); White Blood Count 10.8 10^3/ul (3.5-10.8)
[2016-11-06 20:30] LABS: ALT 4 U/L (7-52); Albumin 2.7 g/dL (3.2-5.2); Alkaline Phosphatase 89 U/L (34-104); BUN/Creatinine Ratio 4.2 (8-20); Blood Urea Nitrogen 21 mg/dL (6-24); C Reactive Protein 7.79 mg/L (< 5.00); CO2 Carbon Dioxide 31 mmol/L (22-32); Calcium 8.7 mg/dL (8.6-10.3); Chloride 99 mmol/L (101-111); EGFR African American 12.4 (>60); EGFR Non-African American 9.6 (>60); Globulin 3.1 g/dL (2-4); Glucose 151 mg/dL (70-100); Lipase < 10 U/L (11.0-82.0); Magnesium 1.5 mg/dL (1.9-2.7); Sodium 138 mmol/L (133-145); Total Protein 5.8 g/dL (6.4-8.9)
[2016-11-06 20:35] LABS: Anion Gap 8 mmol/L (2-11)
--- NOTE | 2016-11-06 20:57 | ED ---
Omid Palacio Rebecca, scribed for Wilfrid Beal MD on 11/06/16 at 1949 . Abdominal Pain/Female - HPI Summary HPI Summary: Pt is a 36 y/o F BIBA who presents to ED c/o diffuse abdominal pain with N/V. Sx began 3 weeks ago after abdominal surgery during which a stent was placed in her LLE. Reports that she has been experiencing symptoms since waking up from anesthesia. Pain is currently moderate, ranked 5/10. Sx aggravated by PO intake , alleviated by nothing. Surgery was done at [facility]. She is on dialysis. - History of Current Complaint Chief Complaint: EDAbdPain Stated Complaint: ABD PAIN/V/N/D Time Seen by Provider: 11/06/16 19:35 Hx Obtained From: Patient Hx Last Menstrual Period: June 2016 Onset/Duration: Lasting Days, Still Present Severity Currently: Moderate Pain Intensity: 5 Pain Scale Used: 0-10 Numeric Location: Diffuse Aggravating Factor(s): Food, Other: - Water Alleviating Factor(s): Nothing Associated Signs and Symptoms: Positive: Nausea, Vomiting Allergies/Adverse Reactions: Allergies Allergy/AdvReac Type Severity Reaction Status Date / Time Amoxicillin [From Augmentin] Allergy See Comment Verified 11/05/16 19:45 Clavulanic Acid Allergy See Comment Verified 11/05/16 19:45 [From Augmentin] Heparin Allergy See Comment Verified 11/05/16 19:45 Metronidazole [From Flagyl] Allergy Nausea And Verified 11/05/16 19:45 Vomiting Morphine Allergy See Comment Verified 11/05/16 19:45 Ropinirole [From Requip] Allergy Hives Verified 11/05/16 19:45 Sulfamethoxazole Allergy Nausea And Verified 11/05/16 19:45 w/Trimethoprim Vomiting [From Bactrim] Codeine AdvReac Nausea And Verified 11/05/16 19:45 Vomiting Erythromycin AdvReac "DOESN'T Verified 11/05/16 19:45 WORK" Niacin AdvReac Hives Verified 11/05/16 19:45 plastic tape Allergy Blisters Uncoded 11/05/16 19:45 PMH/Surg Hx/FS Hx/Imm Hx Endocrine/Hematology History: Reports: Hx Anticoagulant Therapy - Aspirin., Hx Blood Transfusions, Hx Diabetes - insulin dependent, Hx Thyroid Disease - nodule biopsied, normal, Hx Anemia - hx of - reports had tranfusion in 2013 after mi Cardiovascular History: Reports: Hx Angina, Hx Cardiac Arrest - in 2013 with CPR, Hx Cardiomegaly, Hx Coronary Artery Disease, Hx Hypercholesterolemia, Hx Hypertension, Hx Myocardial Infarction, Other Cardiovascular Problems/ Disorders - hyperlipidemia, CAD Denies: Hx Congestive Heart Failure, Hx Deep Vein Thrombosis, Hx Pacemaker/ ICD, Hx Valvular Heart Disease Respiratory History: Reports: Hx Asthma, Hx Chronic Obstructive Pulmonary Disease (COPD) - smoker, Hx Sleep Apnea - pt reports thinks, but no official testing done yet, Other Respiratory Problems/Disorders - acute respipatory failure with hypoxia - jan 2016 Denies: Hx Lung Cancer, Hx Pneumonia, Hx Pulmonary Embolism GI History: Reports: Hx Gastroesophageal Reflux Disease, Other GI Disorders - GASTROPARESIS - TAKING OMEPRAZOLE, reglan and zofran Denies: Hx Gall Bladder Disease, Hx Gastrointestinal Bleed, Hx Ulcer, Hx Urosepsis History: Reports: Hx Acute Renal Failure, Hx Chronic Renal Failure, Hx Dialysis - PERITONEAL, Hx Kidney Stones - in past, Hx Renal Disease - ESRD on home peritoneal dialysis , Other Problems/Disorders - ESRD- URINATES A SMALL AMOUNT Musculoskeletal History: Reports: Hx Arthritis - back, hips, Hx Back Problems - Sciatica and Herniated L3 disk, Other Musculoskeletal History - partial amputation of toes/foot Sensory History: Reports: Hx Eye Prosthesis - left, 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 Stage 5 Renal failure/dialysis Hx Chemotherapy: No Hx Radiation Therapy: No - Surgical History Surgery Procedure, Year, and Place: LEFT EYE REMOVED 2011 - HAS PROSTHETIC EYE ( ORBITS DONE 06/[address] LIGIA COY TO SCAN IN MRI) ;. MELANOMA REMOVED FROM [facility]VA 2012 (PROCEDURE DONE 4X);. CARDIAC CATH 2013 - NO STENTS;. LEFT WRIST FISTULA PLACEMENT ([facility]) 2013;. HEMODIALYSIS CATH RIGHT CHEST WALL 2013;. PERITONEAL DIALYSIS CATH 03/2014;. [place] [facility] [place] [facility] [place]. [place]AC[place] RIGHT JUGULAR [place]ESIO HEMODIALYSIS [place] [facility] [place]. REMOVAL OF JUGULAR CATH - OCT 2015. CARDIAC CATH - stentsx2 right leg. PARTIAL AMPUTATION RIGHT TOES 06/2016 Hx Anesthesia Reactions: No - Immunization History Date of Tetanus Vaccine: UTD Date of Influenza Vaccine: 10/10/15 Infectious Disease History: Reports: Hx of Known/Suspected MRSA - MRSA R 1st toe Denies: Hx Clostridium Difficile, Hx Hepatitis, Hx Human Immunodeficiency Virus (HIV), Hx Shingles, Hx Tuberculosis, History Other Infectious Disease, Traveled Outside the [place] in Last 30 Days - Family History Known Family History: Positive: Cardiac Disease - father [place] at 42 y/o, Hypertension, Other - Positive for bipolar and depression. Completed suicide to sister. - Social History Alcohol Use: None Hx Substance Use: No Substance Use Type: Reports: Prescribed Substance Use Comment - Amount & Last Used: METHADONE Hx Tobacco Use: Yes Smoking Status (MU): Heavy Every Day Tobacco Smoker Type: Cigarettes Amount Used/How Often: 1 PPD Length of Time of Smoking/Using Tobacco: 20 YEARS Have You Smoked in the Last Year: Yes Review of Systems Negative: Fever Positive: Abdominal Pain, Vomiting, Nausea All Other Systems Reviewed And Are Negative: Yes Physical Exam - Summary Physical Exam Summary: General: the pt is tearful Skin: warm, dry Head: normal Eyes: EOMI, HILLARY ENT: normal Neck: supple, nontender Respiratory: CTA, breath sounds present Cardiovascular: RRR Abdomen: soft, nontender Bowel: present Musculoskeletal:strength/ROM intact, she is missing the distal portion of her right foot and the left fifth toe has necrosis. Neurological: normal, sensory/motor intact, A&O x3 Psychological: affect/mood appropriate Triage Information Reviewed: Yes Vital Signs On Initial Exam: Initial Vitals Temp Pulse Resp BP Pulse Ox 97.9 F 96 18 169/109 94 11/06/16 19:10 11/06/16 19:10 11/06/16 19:10 11/06/16 19:10 11/06/16 19:10 Vital Signs Reviewed: Yes - Ronald Coma Scale Coma Scale Total: 15 Diagnostics - Vital Signs Vital Signs Temp Pulse Resp BP Pulse Ox 11/06/16 19:15 97.9 F 96 18 169/109 94 11/06/16 19:10 97.9 F 96 18 169/109 94 - Laboratory Lab Results: Lab Results 11/06/16 11/06/16 11/06/16 Range/Units 19:40 19:40 19:40 WBC 10.8 (3.5-10.8) 10^3/ul RBC 4.80 (4.0-5.4) 10^6/ul Hgb 14.1 (12.0-16.0) g/dl Hct 43 (35-47) % MCV 89 (80-97) fL MCH 29 (27-31) pg MCHC 33 (31-36) g/dl RDW 16 H (10.5-15) % Plt Count 418 (150-450) 10^3/ul MPV 9 (7.4-10.4) um3 Neut % (Auto) 76.6 (38-83) % Lymph % (Auto) 12.7 L (25-47) % Teton % (Auto) 6.0 (1-9) % Eos % (Auto) 3.7 (0-6) % Baso % (Auto) 1.0 (0-2) % Absolute Neuts (auto) 8.2 H (1.5-7.7) 10^3/ul Absolute Lymphs (auto) 1.4 (1.0-4.8) 10^3/ul Absolute Monos (auto) 0.7 (0-0.8) 10^3/ul Absolute Eos (auto) 0.4 (0-0.6) 10^3/ul Absolute Basos (auto) 0.1 (0-0.2) 10^3/ul Absolute Nucleated RBC 0 10^3/ul Nucleated RBC % 0 INR (Anticoag Therapy) 0.95 (0.89-1.11) APTT 31.0 (26.0-36.3) seconds Sodium 138 (133-145) mmol/L Potassium TNP Chloride 99 L (101-111) mmol/L Carbon Dioxide 31 (22-32) mmol/L Anion Gap 8 (2-11) mmol/L BUN 21 (6-24) mg/dL Creatinine 5.04 H (0.51-0.95) mg/dL Est GFR ( Amer) 12.4 (>60) Est GFR (Non-Af Amer) 9.6 (>60) BUN/Creatinine Ratio 4.2 L (8-20) Glucose 151 H (70-100) mg/dL Lactic Acid (0.5-2.0) mmol/L Calcium 8.7 (8.6-10.3) mg/dL Magnesium 1.5 L (1.9-2.7) mg/dL Total Bilirubin 0.40 (0.2-1.0) mg/dL AST TNP ALT 4 L (7-52) U/L Alkaline Phosphatase 89 (34-104) U/L C-Reactive Protein 7.79 H (< 5.00) mg/L Total Protein 5.8 L (6.4-8.9) g/dL Albumin 2.7 L (3.2-5.2) g/dL Globulin 3.1 (2-4) g/dL Albumin/Globulin Ratio 0.9 L (1-3) Lipase < 10 L (11.0-82.0) U/L Beta HCG, Quant < 0.60 mIU/mL 11/06/16 Range/Units 19:40 WBC (3.5-10.8) 10^3/ul RBC (4.0-5.4) 10^6/ul Hgb (12.0-16.0) g/dl Hct (35-47) % MCV (80-97) fL MCH (27-31) pg MCHC (31-36) g/dl RDW (10.5-15) % Plt Count (150-450) 10^3/ul MPV (7.4-10.4) um3 Neut % (Auto) (38-83) % Lymph % (Auto) (25-47) % Teton % (Auto) (1-9) % Eos % (Auto) (0-6) % Baso % (Auto) (0-2) % Absolute Neuts (auto) (1.5-7.7) 10^3/ul Absolute Lymphs (auto) (1.0-4.8) 10^3/ul Absolute Monos (auto) (0-0.8) 10^3/ul Absolute Eos (auto) (0-0.6) 10^3/ul Absolute Basos (auto) (0-0.2) 10^3/ul Absolute Nucleated RBC 10^3/ul Nucleated RBC % INR (Anticoag Therapy) (0.89-1.11) APTT (26.0-36.3) seconds Sodium (133-145) mmol/L Potassium Chloride (101-111) mmol/L Carbon Dioxide (22-32) mmol/L Anion Gap (2-11) mmol/L BUN (6-24) mg/dL Creatinine (0.51-0.95) mg/dL Est GFR ( Amer) (>60) Est GFR (Non-Af Amer) (>60) BUN/Creatinine Ratio (8-20) Glucose (70-100) mg/dL Lactic Acid 1.0 (0.5-2.0) mmol/L Calcium (8.6-10.3) mg/dL Magnesium (1.9-2.7) mg/dL Total Bilirubin (0.2-1.0) mg/dL AST ALT (7-52) U/L Alkaline Phosphatase (34-104) U/L C-Reactive Protein (< 5.00) mg/L Total Protein (6.4-8.9) g/dL Albumin (3.2-5.2) g/dL Globulin (2-4) g/dL Albumin/Globulin Ratio (1-3) Lipase (11.0-82.0) U/L Beta HCG, Quant mIU/mL Result Diagrams: 11/06/16 19:40 11/06/16 19:40 Lab Statement: Any lab studies that have been ordered have been reviewed, and results considered in the medical decision making process. Abdominal Pain Fem Course/Dx - Course Course Of Treatment: BP noted and advised to follow up with PCP. Medications reviewed this visit. ADMIT HOSPITALIST. NO CRITICAL CARE TIME. - Diagnoses Provider Diagnoses: Intractable abdominal pain - Provider Notifications Discussed Care Of Patient With: Torito Gonsalves Time Discussed With Above Provider: 20:22 Instructed by Provider To: Other - Accepts pt for admission Discharge - Discharge Plan Condition: Stable Disposition: ADMITTED TO [facility] Referrals: Aishwarya Solis MD [Primary Care Provider] - The documentation as recorded by the Omid sexton Rebecca accurately reflects the service I personally performed and the decisions made by me, Wilfrid Beal MD.
--- NOTE | 2016-11-06 21:02 | HP ---
H&P (Free Text) History and Physical: PCP: Yaneth Solis MD Date/Time of Evaluation: 11/06/20162039 CC: N/V, abdominal cramps Note: This is an interval H&P as Mrs Wright was admitted 11/02 and signed out AMA 30 minutes after arrival to the floor from ED. Brayden Rothman DO's H&P of that date was reviewed, accurate, & is copied at the end. HPI: Mrs Wright is a 36YO insulin requiring DM with extensive complications including gastroparesis, ESRD-PD, R transmetatarsal amputation, PAOD s/p LLE stent, peripheral polyneuropathy, & CAD who relates developing intractable N/V associated with abdominal cramping after the stenting of her LLE at [facility] 3 weeks ago. She reports subjective F/C 1 week ago, but none since. She claims to have had "dry heaves" ~10 times today as well as several episodes of diarrhea. She denies black or bloody content to the emesis or diarrhea. Additionally, she reports her L 5th toe has turned black and smells bad, but is not painful. She states she does not known when this happened. She has been seen at [facility] a total of 7 times over the past 9 days. She was admitted 11/02 only to sign out AMA 30 minutes after arriving to the floor. She states this is not true, that she was discharged. However, documentation clearly contradicts. She states that she hasn't taken any of her medications for 2 days due to her N/V. Ambulatory Orders Nursing to reconcile. Gabapentin CAP(*) [Neurontin 300 CAP(*)] 100 mg PO TID 10/20/15 Insulin Aspart [Novolog] 0 - 100 units SUBCUT AC PRN 10/20/15 Omeprazole CAP* [Prilosec CAP* 20 MG] 20 mg PO QPM 10/20/15 Albuterol HFA INHALER* [Ventolin HFA Inhaler*] 2 puff INH Q6H PRN 05/17/16 Insulin GLARGINE(*) [Lantus(*)] 80 units SUBCUT BID 05/17/16 Isosorbide Mononitrate ER TAB* [Imdur ER TAB*] 60 mg PO QPM 05/17/16 Losartan TAB* [Cozaar TAB*] 100 mg PO QPM 05/17/16 amLODIPine TAB* [Norvasc 5 mg TAB*] 10 mg PO QPM 05/17/16 Metoclopramide TAB* [Reglan TAB*] 10 mg PO Q6H PRN 07/13/16 Aspirin Low Dose CHEW TAB* [Aspirin Low Dose TAB*] 81 mg PO DAILY tab.chew Atorvastatin* [Lipitor 80 MG*] 80 mg PO QPM tab 07/18/16 Methadone TAB* [Dolophine TAB*] 10 mg PO Q6H PRN 10/02/16 Allergies Heparin Allergy (Intermediate, Verified 11/06/16 20:58) pt states it gave her a blood clot Niacin Allergy (Mild, Verified 11/06/16 20:58) Hives Ropinirole [From Requip] Allergy (Mild, Verified 11/06/16 20:58) Hives Amoxicillin [From Augmentin] Adverse Reaction (Mild, Verified 11/06/16 20:58) "Doesn't work" Clavulanic Acid [From Augmentin] Adverse Reaction (Mild, Verified 11/06/16 20:58 ) "Doesn't work" Codeine Adverse Reaction (Mild, Verified 11/06/16 20:58) Nausea And Vomiting Erythromycin Adverse Reaction (Mild, Verified 11/06/16 20:58) "DOESN'T WORK" Metronidazole [From Flagyl] Adverse Reaction (Mild, Verified 11/06/16 20:58) Nausea And Vomiting Morphine Adverse Reaction (Mild, Verified 11/06/16 20:58) "Doesn't work" Sulfamethoxazole w/Trimethoprim [From Bactrim] Adverse Reaction (Mild, Verified 11/06/16 20:58) Nausea And Vomiting plastic tape Allergy (Mild, Uncoded 11/06/16 20:59) Blisters ROS: as above, otherwise reviewed and all were negative vitals: Vital Signs Temp 36.6 C 11/06/16 19:15 Pulse 96 11/06/16 19:15 Resp 18 11/06/16 19:15 BP 169/109 11/06/16 19:15 Pulse Ox 94 11/06/16 19:15 Intake & Output 11/05/16 11/06/16 11/06/16 23:59 11:59 23:59 Weight 92.986 kg Constitutional: NAD, normally developed, obese white female HEENM: atraumatic; hearing: clinically intact; oropharynx: clear, mucosa moist Neck: soft tissue: non-tender; thyroid: normal Pulmonary: clear to auscultation bilaterally, good aeration, no accessory muscle use CV: RR/RR, normal S1S2, no carotid bruit, no jugular venous distention, 2+ B DP/ PT, no edema Abdominal: soft, non-distended, non-tender, no rebound/guarding/rigidity, normoactive bowel sounds, no hepatosplenomegaly or masses, no costovertebral angle tenderness Lymph: neck: ; axilla: ; groin: Musculoskeletal: general: R transmetatarsal amputation Integumental: L 5th distal phalanx black/necrotic, remainder of the foot is warm /pink Psychiatric orientation: AA&O to PPS affect: anxious/tearful mood: cooperative eye contact: poor content: unreliable responses: reflect poor understanding of her serious medical issues insight: poor Testing: Lab Results 11/06/16 11/06/16 11/06/16 Range/Units 19:40 19:40 19:40 WBC 10.8 (3.5-10.8) 10^3/ul RBC 4.80 (4.0-5.4) 10^6/ul Hgb 14.1 (12.0-16.0) g/dl Hct 43 (35-47) % MCV 89 (80-97) fL MCH 29 (27-31) pg MCHC 33 (31-36) g/dl RDW 16 H (10.5-15) % Plt Count 418 (150-450) 10^3/ul MPV 9 (7.4-10.4) um3 Neut % (Auto) 76.6 (38-83) % Lymph % (Auto) 12.7 L (25-47) % Mccone % (Auto) 6.0 (1-9) % Eos % (Auto) 3.7 (0-6) % Baso % (Auto) 1.0 (0-2) % Absolute Neuts (auto) 8.2 H (1.5-7.7) 10^3/ul Absolute Lymphs (auto) 1.4 (1.0-4.8) 10^3/ul Absolute Monos (auto) 0.7 (0-0.8) 10^3/ul Absolute Eos (auto) 0.4 (0-0.6) 10^3/ul Absolute Basos (auto) 0.1 (0-0.2) 10^3/ul Absolute Nucleated RBC 0 10^3/ul Nucleated RBC % 0 INR (Anticoag Therapy) 0.95 (0.89-1.11) APTT 31.0 (26.0-36.3) seconds Sodium 138 (133-145) mmol/L Potassium TNP Chloride 99 L (101-111) mmol/L Carbon Dioxide 31 (22-32) mmol/L Anion Gap 8 (2-11) mmol/L BUN 21 (6-24) mg/dL Creatinine 5.04 H (0.51-0.95) mg/dL Est GFR ( Amer) 12.4 (>60) Est GFR (Non-Af Amer) 9.6 (>60) BUN/Creatinine Ratio 4.2 L (8-20) Glucose 151 H (70-100) mg/dL Lactic Acid (0.5-2.0) mmol/L Calcium 8.7 (8.6-10.3) mg/dL Magnesium 1.5 L (1.9-2.7) mg/dL Total Bilirubin 0.40 (0.2-1.0) mg/dL AST TNP ALT 4 L (7-52) U/L Alkaline Phosphatase 89 (34-104) U/L C-Reactive Protein 7.79 H (< 5.00) mg/L Total Protein 5.8 L (6.4-8.9) g/dL Albumin 2.7 L (3.2-5.2) g/dL Globulin 3.1 (2-4) g/dL Albumin/Globulin Ratio 0.9 L (1-3) Lipase < 10 L (11.0-82.0) U/L Beta HCG, Quant < 0.60 mIU/mL 11/06/16 11/06/16 Range/Units 19:40 20:38 WBC (3.5-10.8) 10^3/ul RBC (4.0-5.4) 10^6/ul Hgb (12.0-16.0) g/dl Hct (35-47) % MCV (80-97) fL MCH (27-31) pg MCHC (31-36) g/dl RDW (10.5-15) % Plt Count (150-450) 10^3/ul MPV (7.4-10.4) um3 Neut % (Auto) (38-83) % Lymph % (Auto) (25-47) % Mccone % (Auto) (1-9) % Eos % (Auto) (0-6) % Baso % (Auto) (0-2) % Absolute Neuts (auto) (1.5-7.7) 10^3/ul Absolute Lymphs (auto) (1.0-4.8) 10^3/ul Absolute Monos (auto) (0-0.8) 10^3/ul Absolute Eos (auto) (0-0.6) 10^3/ul Absolute Basos (auto) (0-0.2) 10^3/ul Absolute Nucleated RBC 10^3/ul Nucleated RBC % INR (Anticoag Therapy) (0.89-1.11) APTT (26.0-36.3) seconds Sodium (133-145) mmol/L Potassium 3.1 L Chloride (101-111) mmol/L Carbon Dioxide (22-32) mmol/L Anion Gap (2-11) mmol/L BUN (6-24) mg/dL Creatinine (0.51-0.95) mg/dL Est GFR ( Amer) (>60) Est GFR (Non-Af Amer) (>60) BUN/Creatinine Ratio (8-20) Glucose (70-100) mg/dL Lactic Acid 1.0 (0.5-2.0) mmol/L Calcium (8.6-10.3) mg/dL Magnesium (1.9-2.7) mg/dL Total Bilirubin (0.2-1.0) mg/dL AST 8 L ALT (7-52) U/L Alkaline Phosphatase (34-104) U/L C-Reactive Protein (< 5.00) mg/L Total Protein (6.4-8.9) g/dL Albumin (3.2-5.2) g/dL Globulin (2-4) g/dL Albumin/Globulin Ratio (1-3) Lipase (11.0-82.0) U/L Beta HCG, Quant mIU/mL CT abd/pel (11/02/2016): IMPRESSION: NO CT EVIDENCE OF UROLITHIASIS. PERONEAL DIALYSIS FLUID/DIALYSIS CATHETER. NO ACUTE CT FINDINGS. Impression: 36F presenting with a necrotic L 5th toe & exacerbation of her diabetic gastroparesis DIAGNOSIS & PLAN Primary necrotic L 5th toe, limb threatening : HX PAOD s/p LLE stenting at [facility] ~3 weeks ago, records requested : LLE arterial US : IV meropenem & vancomycin : IVFs : wound care consult : consider ID consult in AM : supportive care diabetic gastroparesis, exacerbation : clinically euvolemic: baseline labs, HTN-rafael vitals, moist mucous membranes, normal lactic, & no tachycardia : gastric emptying study in AM, NPO until completed : doubt SBP, but will send dialysate sample for gram stain & CX : PO dicyclomine Q8H : IV metoclopramide Q6H : consider GI consult in AM pending above result : A1c 10/2016 is 12.4 : basal/correctional insulin while NPO, will need bolus added when returning to PO : diabetic education consult Secondary diabetic nephropathy ESRD-PD : continue Q6H peritoneal dialysis : consider nephrology consult in AM CAD : review meds once reconciled HTN : review meds once reconciled HLD : review meds once reconciled asthma : albuterol nebs PRN GERD : omeprazole depression/anxiety : review meds once reconciled Admission Rational: observation for exacerbation of diabetic gastroparesis & initiation of ABX for diabetic foot infection DVTp: would avoid compressive devices 2nd PAOD w/ recent stenting, no heparin 2nd HX adverse event Code Status: full History & Physical Patient: JULI WRIGHT /Age: 05 1980 36 Medical Record#: [id number] Admission Date: 11/02/16 Provider: Lore Rothman DO CC: Dr. Solis; Dr. Marrufo * HISTORY AND PHYSICAL: DATE OF ADMISSION: 11/02/16 PRIMARY CARE PROVIDER: Dr. Solis. PAYMENT POSTER: Dr. Marrufo. CHIEF COMPLAINT: Abdominal pain, nausea, and vomiting. HISTORY OF PRESENT ILLNESS: Ms. Wright is a 36-year-old female, well known to the hospitalist service from multiple previous hospitalizations, who has a history of poorly controlled insulin dependent diabetes, end-stage renal disease on peritoneal dialysis, peripheral neuropathy, peripheral vascular disease, coronary artery disease, hypertension, hyperlipidemia, depression and anxiety, who presents to the emergency room with complaints of abdominal pain, nausea, and vomiting. The patient was recently hospitalized [place] [facility] [place] through . At that time, she ended up leaving the hospital against medical advice. There were concerns for foot infection at that point. The patient ultimately ended up presenting to the emergency room several more times since then. She states, however, that she was admitted to [facility] 2 to 3 weeks ago and left just this past after having stents placed in her left leg. The patient states that during that hospitalization in addition to having stenting procedure done to her left leg, she had fairly persistent nausea and vomiting as well as abdominal discomfort. The patient does not really recall what happened during the hospitalization. She states that since she got home; however, she has had chills. She has had pressure in her abdomen, vomiting , constant nausea, as well as numerous other complaints. The patient states that in terms of her peritoneal dialysis, it has been going okay. She denies seeing any cloudiness or fibrin in her dialysate. The patient denies any recent sick contacts. PAST MEDICAL HISTORY: 1. Poorly controlled insulin dependent diabetes. 2. End-stage renal disease, on peritoneal dialysis. 3. Peripheral neuropathy. 4. Coronary artery disease. 5. Hypertension. 6. Hyperlipidemia. 7. Peripheral vascular disease. 8. Asthma. 9. GERD. 10. Depression. 11. Anxiety. PAST SURGICAL HISTORY: 1. Peritoneal dialysis catheter insertion. 2. Right transmetatarsal amputation. 3. Right lower extremity arterial stenting.History & Physical 4. Left lower extremity arterial stenting. 5. Left eye prosthesis. MEDICATIONS: The patient does not know her medications. This is from prior hospitalization: 1. Aspirin 81 mg p.o. daily. 2. Albuterol 2 puffs inhaled q.6 hours p.r.n. shortness of breath. 3. Amlodipine 10 mg p.o. daily. 4. Omeprazole 20 mg p.o. q.h.s. 5. Reglan 10 mg p.o. q.6 hours p.r.n. nausea. 6. Methadone 10 mg p.o. q.6 hours p.r.n. pain. 7. Cozaar 100 mg p.o. q.h.s. 8. Imdur 60 mg p.o. q.h.s. 9. Lantus 80 units subcutaneous twice daily. 10. NovoLog sliding scale subcutaneous a.c. 11. Gabapentin 100 mg p.o. t.i.d. 12. Lipitor 80 mg p.o. q.h.s. ALLERGIES: AUGMENTIN, HEPARIN, FLAGYL, MORPHINE, REQUIP, BACTRIM, CODEINE, ERYTHROMYCIN, NIACIN, and PLASTIC TAPE. FAMILY HISTORY: The patient's parents are both diabetic. SOCIAL HISTORY: The patient is a pack per day smoker for at least 18 years. She does not drink alcohol. She denies any recreational drug use. She is disabled. She has a boyfriend. She has no children. The patient indicates that her boyfriend would be her healthcare proxy. REVIEW OF SYSTEMS: The patient admits to fevers as high as 100, chills, anorexia, chest pressure, this has been going on for the last couple of days that comes and goes. Lower extremity edema that developed a couple of weeks ago, she states this is now getting a little bit better. She admits to cough, which is chronic, but shortness of breath, it has been associated with the chest pain. She admits to nausea, vomiting, diarrhea that started on the day of presentation to the emergency room. She thinks she has gone 6 times today. She admits to abdominal pain. She does make urine. She denies any dysuria. She complains of left-sided weakness that has been chronic for the last 6 months. No sudden changes in his visio. No dysphagia. No joint pains or muscle pains out of ordinary. No rashes. She does admit to anxiety and depression. PHYSICAL EXAMINATION GENERAL: The patient is a well-developed, young, chronically ill appearing female, who also appears much older than her stated age, lying in a stretcher in no acute distress. VITAL SIGNS: Blood pressure 144/68, pulse 81, respirations 15, temp 97.5, O2 sat 82% on room air. HEENT: The right pupil is round and reactive to light. The right extraocular muscles are intact. Left eye has a prosthesis. The oropharynx is clear. There is no submandibular, cervical, or supraclavicular adenopathy. Thyroid is not enlarged. No thyroid nodules are noted. PULMONARY: Lungs are clear to auscultation bilaterally, though breath sounds are diminished in all lung hernandez. CARDIAC: Normal S1 and S2. Regular rate and rhythm. I do not appreciate any murmurs. There is trace left lower extremity edema. ABDOMEN: Bowel sounds are present, but hypoactive. There are number of scars on the patient's abdomen. She does not complain of any tenderness upon palpation of the abdomen. MUSCULOSKELETAL: The patient is status post right transmetatarsal amputation. There is otherwise no clubbing or cyanosis of the digits. There is full active range of motion.History & Physical SKIN: Warm, it is dry. I do not appreciate any rashes. The patient does have almost quarter-sized wound to the incision of the right transmetatarsal amputation on the lateral aspect of the incision. There is no surrounding erythema. There is a mild amount of slough within the wound base. NEURO: Cranial nerves II through XII are grossly intact. Sensation is intact to light touch. Strength is 5/5 and symmetric in both upper and lower extremities bilaterally. PSYCH: The patient is alert. She is oriented x3. Affect appears appropriate. LABORATORY DATA/DIAGNOSTIC STUDIES: WBC 12.2, hemoglobin 13.2, hematocrit 41, and platelets 487. INR 0.92. Sodium 135, potassium 4.2, chloride 100, CO2 28, BUN 24, creatinine 3.82, glucose 174, lactic acid 1.2, calcium 8.8, bilirubin 0.3, AST 8, ALT 3, alk phos 99. Troponin 0.03, repeated 0.02. CRP 12.37. Albumin 2.9, amylase less than 10, lipase is 26. EKG reveals normal sinus rhythm without any acute ST-T wave abnormalities. CT abdomen and pelvis reveals no urolithiasis or acute findings. Peritoneal dialysis fluid and catheter are noted. ASSESSMENT AND PLAN: Ms. Wright is a 36-year-old chronically ill female, who presents to the emergency room with complaints of abdominal pain, nausea, vomiting, chest pain and shortness of breath. 1. Abdominal pain, nausea, and vomiting. The etiology of this is not completely clear. I am suspicious that she likely has gastroparesis with all of her other diabetic complications. A gastric emptying study has been ordered. The patient claims that she is unable to keep anything down; however, she does not look volume deplete on exam nor is her lactic acid level elevated. The patient will be given a clear liquid diet once her gastric emptying study is complete. She does have Reglan already at home, but perhaps another agent may be necessary. 2. Chest pain. The patient states that this has been going on for the last couple of days. Her first 2 troponins are negative. The third is pending. Her EKG does not reveal any acute findings. I do not feel that any further workup for this is needed at this point. The patient did undergo stress testing in August of 2015, which revealed a small fixed defect of the distal septum and lateral wall. 3. Shortness of breath. The patient is requiring supplemental oxygen. It is unclear if this has been necessary in her previous hospitalizations as well. Her lungs were clear. I will go ahead and get a portal chest x-ray to evaluate for infiltrate or pulmonary edema. 4. Peripheral vascular disease. The patient states that she recently underwent stenting to the left lower extremity. She previously had the right lower extremity stented. I will try to get these records from [facility]. 5. End-stage renal disease. The dialysis unit has been notified of the patient 's admission. In addition to continuing on her peritoneal dialysis, I have asked that a sample of the peritoneal dialysis fluid be sent to the lab for testing for cell count, Gram stain and culture. 6. Hypertension. The patient's blood pressure at this point is moderately elevated. She will be maintained on her usual home medication regimen. 7. Insulin-dependent diabetes. The patient states that she does not know if she is a type 1 or type 2 diabetic. She states that she was at one point on pills for her diabetes. She is essentially going to be n.p.o. or on clear liquid diet for now; therefore, I will cut her Lantus to 40 units subcutaneous twice daily for now and if her sugars become markedly elevated, this will be increased back up to her home dose. Additionally, she will be placed on a lispro sliding scale. The patient's last hemoglobin A1c in our system was obtained in June 2016 and is markedly elevated at 14.3%. I will check a new hemoglobin A1c to see if she has had any improved control in her blood sugars. 8. Hyperlipidemia. The patient will be maintained on her usual dose of Lipitor. 9. DVT prophylaxis. According to the Adult Thrombosis Prophylaxis Risk Factor Assessment Guide, the patient has a total risk factor score of 1 making her low risk. She states that she is allergic to HEPARIN and she is no longer on any anticoagulants. SCDs will be utilized as DVT prophylaxis. 10. Code status is full. TIME SPENT: 65 minutes was spent admitting this patient.History & Physical Lore Rothman DO Dictated Date/Time: 11/02/16 0957 Transcribed Date/Time 11/02/16 [id number] Copy to: CC: Lore Rothman DO
[2016-11-06] MEDS ORDERED: Vancomycin per Pharmacy* NOTE FOLLOW UP PRN (21:38)
[2016-11-06] MEDS ORDERED: Metoclopramide IV* 5 MG/ML 2 ML VIAL IV SCH (22:00)
[2016-11-06] MEDS ORDERED: NS 0.9% 1000 ML* 1,000 ML IV SCH (22:15)
[2016-11-06] MEDS ORDERED: Vancomycin(*) 1,500 MG in NS 0.9% 250 ML* 250 ML IVPB ONE (22:30)
[2016-11-06] MEDS ORDERED: Albuterol 2.5 MG/3 ML NEB.SOL* (0.083%) INH PRN (22:36)
[2016-11-06] MEDS ORDERED: Acetaminophen TAB* 325 MG PO PRN (22:36)
[2016-11-06] MEDS ORDERED: PROCHLORPERAZINE INJ 5 MG/ML 2 ML VIAL IV PRN (22:36)
[2016-11-06] MEDS ORDERED: CMCS: Melatonin (NF) 3 MG TAB PO PRN (22:36)
[2016-11-06] MEDS ORDERED: Ondansetron INJ* 2 MG/ML VIAL IV PRN (22:36)
[2016-11-07] MEDS: Metoclopramide IV* 5 MG/ML 2 ML VIAL IV SCH ×2 (00:05→04:58)
[2016-11-07] MEDS ORDERED: Meropenem 1 GM PREMIX(*) 1 GM/50 ML BAG IV SCH (00:30)
[2016-11-07] MEDS: Insulin LISPRO* 1 UNITS UNIT SUBCUT SCH ×3 (00:49→07:46)
[2016-11-07] MEDS: Dicyclomine CAP* 10 MG PO SCH ×2 (00:51→07:48)
[2016-11-07] MEDS: Methadone TAB* 10 MG PO PRN ×2 (00:52→07:49)
[2016-11-07] MEDS ORDERED: Mouth Piece, Nicotine* 1 EACH CARTRIDGE ONE (01:37)
[2016-11-07] MEDS: Nicotine Inhaler* 10 MG AMP INH PRN ×2 (01:38→08:58)
[2016-11-07] MEDS ORDERED: Vancomycin Random Level* NOTE FOLLOW UP PRN (03:50)
[2016-11-07] MEDS ORDERED: Heparin VIAL(*) 5000 UNITS/ML VIAL (FIVE THOUSAND) SUBCUT SCH (06:00)
[2016-11-07] MEDS ORDERED: Dicyclomine CAP* 10 MG PO SCH (07:30)
--- NOTE | 2016-11-07 07:55 | RAD ---
INDICATION: Status post left common femoral artery popliteal artery bypass graft, left fifth toe necrosis. COMPARISON: Comparison is made with a prior study from October 20, 2016. TECHNIQUE: Multiple real-time, color flow and Doppler tracings of left lower extremity were obtained. FINDINGS: There appears to be a left common femoral to popliteal artery bypass graft present. The peak systolic velocity in the common femoral artery was 134 cm/s and profunda femoral artery 42 cm/s. The peak systolic velocity in the graft at the level of the proximal superficial femoral artery was 153 cm/s, graft at the mid superficial femoral artery 380 cm/s, graft at the distal superficial femoral artery 132 cm/s, graft at the knee 79 cm/s. Popliteal artery 80 cm/s, posterior tibial artery 99 cm/s distal posterior tibial artery 139 cm/s, peroneal artery 32 cm/s, distal peroneal artery 22 cm/s, anterior tibial artery 47 cm/s. IMPRESSION: FOCAL ELEVATED VELOCITY IN THE GRAFT AT THE LEVEL OF THE MID SUPERFICIAL FEMORAL ARTERY SUGGESTIVE OF A STENOSIS. CONSIDER FURTHER EVALUATED WITH A CT ANGIOGRAM OF THE AORTA AND LOWER EXTREMITIES.
[2016-11-07] MEDS ORDERED: Gabapentin CAP(*) 300 MG PO SCH (09:00)
[2016-11-07] MEDS ORDERED: Aspirin Low Dose CHEW TAB* 81 MG PO SCH (09:00)
[2016-11-07] MEDS ORDERED: Gabapentin CAP(*) 100 MG PO SCH (09:00)
[2016-11-07] MEDS ORDERED: Losartan TAB* 25 MG PO SCH ×2 (10:00→18:00)
[2016-11-07 10:01] LABS: Budding Yeast Present (Absent); Urine Bacteria 2+ (Absent); Urine Bilirubin Negative (Negative); Urine Glucose 3+(>=500 mg/dL) (Negative); Urine Nitrite Negative (Negative)
[2016-11-07 10:32] VITALS: BP 175/93
[2016-11-07 12:56] LABS: Body Fluid Appearance Clear
[2016-11-07 12:59] LABS: Body Fluid WBC 64 /mcL
[2016-11-07 13:15] LABS: Body Fluid Total Cells Counted 100
[2016-11-07] MEDS ORDERED: Atorvastatin* 80 MG TAB PO SCH (18:00)
[2016-11-07] MEDS ORDERED: amLODIPine TAB* 5 MG PO SCH (18:00)
[2016-11-07] MEDS ORDERED: Isosorbide Mononitrate ER TAB* 60 MG PO SCH (18:00)
[2016-11-07] MEDS ORDERED: Omeprazole CAP* 20 MG PO SCH (18:00)
--- NOTE | 2016-11-07 20:13 | PN ---
Progress Note - Progress Note Date of Service: 11/07/16 Note: Upon start of shift this evening, review of last night's admissions shows Ms Wetzel signing out against medical advice this AM prior to evaluation by the day physician. As such, she was not able to be informed of the abnormal arterial US finding suggestive of LLE in-stent stenosis. She was noted to have a necrotic L 5th toe, but could not say whether this occurred prior to or after placement of the LLE stent ~3-4 weeks ago. I contacted her PCP, Yaneth Solis MD, informing her of the finding and need for follow up. Additionally, I contacted her vascular surgeon at [facility], Dr Escobar (sp?) who was able to inform me that her L 5th toe necrosis was present prior to stenting. He was made aware of her ongoing diabetic non-adherence, tobacco use, and abnormal arterial US finding. Fortunately, she is not yet complaining of LLE pain, but she is at high risk of progression to a limb threatening total occlusion which is of great concern to all.
[2016-11-07] MEDS ORDERED: Insulin GLARGINE(*) 1 UNITS UNIT SUBCUT SCH (21:00)
--- NOTE | 2016-11-08 02:33 | DS ---
CC: Primary Care Provider, Aishwarya Solis MD * SHORT DISCHARGE NOTE: DATE OF ADMISSION: 11/06/16 DATE OF DISCHARGE: The patient signing against medical advice, 11/07/16. Please note that Ms. Wright signed out against medical advice on 11/07/16 prior to being able to be seen by a physician. She refused to wait to see a physician to explain against medical advice. Those were explained to her by a registered nurse. She was informed about uncontrolled hypertension, a toe infection, and ongoing problems with gastroparesis and dehydration that could all cause severe medical problems and possibly if advanced illness or sepsis develops. The patient wished to go against medical advice and she left. This is consistent with the patient's pattern of admissions within the past couple of months. [id number]/[facility] #: [id number] MTDD
[2016-11-08] MEDS ORDERED: amLODIPine TAB* 5 MG PO SCH (09:00)
== END 2016-11-07 10:25 | disposition left against medical advice (07) ==
LOC: ED 19:01 → MED 20:49
PROVIDERS: ADMIT Hospitalist; ATTEND Internal Medicine
DX: E11.52 Type 2 diabetes mellitus with diabetic peripheral angiopathy with gangrene (principal); E11.21 Type 2 diabetes mellitus with diabetic nephropathy; E11.43 Type 2 diabetes mellitus with diabetic autonomic (poly)neuropathy; K31.84 Gastroparesis; E11.22 Type 2 diabetes mellitus with diabetic chronic kidney disease; I12.0 Hypertensive chronic kidney disease with stage 5 chronic kidney disease or end stage renal disease; N18.6 End stage renal disease; Z79.4 Long term (current) use of insulin; T82.856A Stenosis of peripheral vascular stent, initial encounter; Y83.8 Other surgical procedures as the cause of abnormal reaction of the patient, or of later complication, without mention of misadventure at the time of the procedure; E78.5 Hyperlipidemia, unspecified; J44.9 Chronic obstructive pulmonary disease, unspecified; K21.9 Gastro-esophageal reflux disease without esophagitis; F41.9 Anxiety disorder, unspecified; F32.9 Major depressive disorder, single episode, unspecified; Z88.1 Allergy status to other antibiotic agents; Z88.2 Allergy status to sulfonamides; Z88.5 Allergy status to narcotic agent; Z88.8 Allergy status to other drugs, medicaments and biological substances; Z79.82 Long term (current) use of aspirin; F17.210 Nicotine dependence, cigarettes, uncomplicated
CPT/HCPCS: 36415; 80053; 80202; 81003; 81015; 83605; 83690; 83735; 84702; 85025; 85610; 85730; 86140; 87040; 87077; 87086; 87186; 89051; 96365; 96366; 96375; 96376; 99285; 99406; A9270-GY; G0378; J0780; J2185; J2405; J2765; J3370

== ENCOUNTER 2016-12-03 18:38 | Emergency (ER) | payer MEDICARE, OTHER ==
[2016-12-03 19:33] VITALS: BP 164/104
--- NOTE | 2016-12-04 02:14 | ED ---
Payal Palacio Edward, scribed for Rosita Harrell MD on 12/03/16 at 1921 . Abdominal Pain/Female - HPI Summary HPI Summary: 36 y/o female presents to the ED c/o severe, diffuse ABD pain starting around 1 month ago that became worse yesterday. The pain is rated 9/10. Pt states the pain feels like her "stomach is bruised inside". The pain radiates to the sides of the ABD. Associated sx: chills, diaphoresis, N/V - pt states "everything comes up" when she eats and drinks, constipation for the past 3 days. Vomit described as "phlegmy". Denies blood in vomit, blood in stool, SOB and CP. Pt's senior procurement specialist is Dr. Pedraza. Pt is on dialysis and states her exchanges are clear. Two weeks ago her exchanges were tested and showed no infection. No FHx kidney disease. PMHx kidney failure. - History of Current Complaint Chief Complaint: EDAbdPain Stated Complaint: ABD PAIN/N/V Time Seen by Provider: 12/03/16 19:17 Hx Obtained From: Patient Hx Last Menstrual Period: June 2016 Onset/Duration: Lasting Weeks, Still Present, Worse Since - yesterday Severity Currently: Severe Pain Intensity: 9 Pain Scale Used: 0-10 Numeric Location: Diffuse Radiates: Yes Radiates to: Other - sides of the ABD Character: Other: - "stomach feels like it is bruised inside" Aggravating Factor(s): Nothing Alleviating Factor(s): Nothing Associated Signs and Symptoms: Positive: Diaphoresis, Constipation, Nausea, Vomiting, Other: - chills Allergies/Adverse Reactions: Allergies Allergy/AdvReac Type Severity Reaction Status Date / Time Heparin Allergy Intermediate pt states Verified 12/03/16 18:48 it gave her a blood clot Niacin Allergy Mild Hives Verified 12/03/16 18:48 Ropinirole [From Requip] Allergy Mild Hives Verified 12/03/16 18:48 Amoxicillin [From Augmentin] AdvReac Mild "Doesn't Verified 12/03/16 18:48 work" Clavulanic Acid AdvReac Mild "Doesn't Verified 12/03/16 18:48 [From Augmentin] work" Codeine AdvReac Mild Nausea And Verified 12/03/16 18:48 Vomiting Erythromycin AdvReac Mild "DOESN'T Verified 12/03/16 18:48 WORK" Metronidazole [From Flagyl] AdvReac Mild Nausea And Verified 12/03/16 18:48 Vomiting Morphine AdvReac Mild "Doesn't Verified 12/03/16 18:48 work" Sulfamethoxazole AdvReac Mild Nausea And Verified 12/03/16 18:48 w/Trimethoprim Vomiting [From Bactrim] plastic tape Allergy Mild Blisters Uncoded 12/03/16 18:48 PMH/Surg Hx/FS Hx/Imm Hx Previously Healthy: No Endocrine/Hematology History: Reports: Hx Anticoagulant Therapy - Aspirin., Hx Blood Transfusions, Hx Diabetes - insulin dependent, Hx Thyroid Disease - nodule biopsied, normal, Hx Anemia - hx of - reports had tranfusion in 2013 after mi Cardiovascular History: Reports: Hx Angina, Hx Cardiac Arrest - in 2013 with CPR, Hx Cardiomegaly, Hx Coronary Artery Disease, Hx Hypercholesterolemia, Hx Hypertension, Hx Myocardial Infarction, Other Cardiovascular Problems/ Disorders - hyperlipidemia, CAD Denies: Hx Congestive Heart Failure, Hx Deep Vein Thrombosis, Hx Pacemaker/ ICD, Hx Valvular Heart Disease Respiratory History: Reports: Hx Asthma, Hx Chronic Obstructive Pulmonary Disease (COPD) - smoker, Hx Sleep Apnea - pt reports md thinks, but no official testing done yet, Other Respiratory Problems/Disorders - acute respipatory failure with hypoxia - jan 2016 Denies: Hx Lung Cancer, Hx Pneumonia, Hx Pulmonary Embolism GI History: Reports: Hx Gastroesophageal Reflux Disease, Other GI Disorders - GASTROPARESIS - TAKING OMEPRAZOLE, reglan and zofran Denies: Hx Gall Bladder Disease, Hx Gastrointestinal Bleed, Hx Ulcer, Hx Urosepsis History: Reports: Hx Acute Renal Failure, Hx Chronic Renal Failure, Hx Dialysis - PERITONEAL, Hx Kidney Stones - in past, Hx Renal Disease - ESRD on home peritoneal dialysis , Other Problems/Disorders - ESRD- URINATES A SMALL AMOUNT Musculoskeletal History: Reports: Hx Arthritis - back, hips, Hx Back Problems - Sciatica and Herniated L3 disk, Other Musculoskeletal History - partial amputation of toes/foot Sensory History: Reports: Hx Eye Prosthesis - left, 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 Stage 5 Renal failure/dialysis Hx Chemotherapy: No Hx Radiation Therapy: No - Surgical History Surgery Procedure, Year, and Place: LEFT EYE REMOVED 2011 - HAS PROSTHETIC EYE ( ORBITS DONE 06/[address] LIGIA COY TO SCAN IN MRI) ;. MELANOMA REMOVED FROM [facility] 2012 (PROCEDURE DONE 4X);. CARDIAC CATH 2013 - NO STENTS;. LEFT WRIST FISTULA PLACEMENT ([facility]) 2013;. HEMODIALYSIS CATH RIGHT CHEST WALL 2013;. PERITONEAL DIALYSIS CATH 03/2014;. CHEST WALL CATH REMOVAL 08/2015 [facility] [place];. RIGHT GREAT TOE AMPUTATION, [facility] [place] 05/2015;. PLACEMENT RIGHT JUGULAR TESIO HEMODIALYSIS CATHETER [facility] [place] 10/22/2015;. REMOVAL OF JUGULAR CATH - OCT 2015. CARDIAC CATH - stentsx2 right leg. PARTIAL AMPUTATION RIGHT TOES 06/2016 Hx Anesthesia Reactions: No - Immunization History Date of Tetanus Vaccine: UTD Date of Influenza Vaccine: 11/2016 Infectious Disease History: No Infectious Disease History: Reports: Hx of Known/Suspected MRSA - MRSA R 1st toe Denies: Hx Clostridium Difficile, Hx Hepatitis, Hx Human Immunodeficiency Virus (HIV), Hx Shingles, Hx Tuberculosis, History Other Infectious Disease, Traveled Outside the [place] in Last 30 Days - Family History Known Family History: Positive: Cardiac Disease - father [place] at 42 y/o, Hypertension, Other - Positive for bipolar and depression. Completed suicide to sister. - Social History Alcohol Use: None Hx Substance Use: No Substance Use Type: Reports: None Substance Use Comment - Amount & Last Used: METHADONE Hx Tobacco Use: Yes Smoking Status (MU): Heavy Every Day Tobacco Smoker Type: Cigarettes Amount Used/How Often: 1 PPD Length of Time of Smoking/Using Tobacco: 20 YEARS Have You Smoked in the Last Year: Yes Review of Systems Positive: Chills, Skin Diaphoresis Eyes: Negative ENT: Negative Cardiovascular: Negative Respiratory: Negative Positive: Abdominal Pain, Vomiting, Nausea, Other - constipation Genitourinary: Negative Musculoskeletal: Negative Skin: Negative Neurological: Negative Psychological: Normal All Other Systems Reviewed And Are Negative: Yes Physical Exam - Summary Physical Exam Summary: Appearance: Tearful, Well-nourished Skin: Warm, color reflects adequate perfusion Head: Normal Head/Face Eyes: Conjunctiva clear ENT: Normal Neck: Supple Respiratory: Lungs clear, Normal breath sounds, no respiratory distress Cardio: RRR, No murmur, pulses normal, brisk capillary refill Abdomen: soft and tender. Catheter insertion site at the RLQ is clean and dry with no drainage. Dressing changed at the time of the exam. Bowel sounds: present Musculoskeletal: Strength Intact/ ROM intact Neuro: Alert, muscle tone normal, facial symmetry, speech normal, sensory/motor intact Triage Information Reviewed: Yes Vital Signs On Initial Exam: Initial Vitals Temp Pulse Resp BP Pulse Ox 97.4 F 106 18 134/84 89 12/03/16 18:46 12/03/16 18:46 12/03/16 18:46 12/03/16 18:46 12/03/16 18:46 Vital Signs Reviewed: Yes - Ronald Coma Scale Coma Scale Total: 15 Diagnostics - Vital Signs Vital Signs Temp Pulse Resp BP Pulse Ox 12/03/16 19:00 110 147/83 93 12/03/16 18:52 106 90 12/03/16 18:51 137/91 12/03/16 18:46 97.4 F 106 18 134/84 89 - Laboratory Lab Statement: Any lab studies that have been ordered have been reviewed, and results considered in the medical decision making process. Re-Evaluation - Re-Evaluation 1 Re-Evaluation Time: 19:45 Comment: Discuss plan of care. Pt will sign out AMA. Pt states "they're not gonna find anything". Abdominal Pain Fem Course/Dx - Course Course Of Treatment: 36 y/o female presents to the ED c/o severe, diffuse ABD pain starting around 1 month ago that became worse yesterday. The pain is rated 9/10. Pt states the pain feels like her "stomach is bruised inside". The pain radiates to the sides of the ABD. Associated sx: chills, diaphoresis, N/V - pt states "everything comes up" when she eats and drinks, constipation for the past 3 days. Vomit described as "phlegmy". Denies blood in vomit, blood in stool , SOB and CP. Pt's senior procurement specialist is Dr. Pedraza. Pt is on dialysis and states her exchanges are clear. Two weeks ago her exchanges were tested and showed no infection. No FHx kidney disease. PMHx kidney failure. - Diagnoses Provider Diagnoses: Left against medical advice Discharge - Discharge Plan Condition: Stable Disposition: AGAINST MEDICAL ADVICE Forms: *Work Release Referrals: Aishwarya Solis MD [Primary Care Provider] - The documentation as recorded by the Payal sexton Edward accurately reflects the service I personally performed and the decisions made by Julio Cesar branch Barbara J, MD.
== END 2016-12-03 19:54 | disposition left against medical advice (07) ==
LOC: ED 18:38
DX: K59.00 Constipation, unspecified (principal); R11.2 Nausea with vomiting, unspecified; F17.210 Nicotine dependence, cigarettes, uncomplicated; Z53.21 Procedure and treatment not carried out due to patient leaving prior to being seen by health care provider
CPT/HCPCS: 99283

== ENCOUNTER 2016-12-03 21:00 | Emergency (ER) | payer OTHER ==
[2016-12-03 21:03] VITALS: BP 151/99
== END 2016-12-03 23:06 | disposition left against medical advice (07) ==
LOC: ED 21:00
DX: R10.9 Unspecified abdominal pain (principal); Z53.21 Procedure and treatment not carried out due to patient leaving prior to being seen by health care provider

== ENCOUNTER 2016-12-04 05:44 | Emergency (ER) | payer OTHER ==
[2016-12-04] MEDS ORDERED: NS 0.9% 1000 ML* 500 ML IV ONE (07:45)
[2016-12-04] MEDS ORDERED: Pantoprazole IV* 40 MG IV ONE (07:45)
[2016-12-04] MEDS ORDERED: Ondansetron INJ* 2 MG/ML VIAL IV ONE (07:45)
[2016-12-04 08:03] VITALS: BP 144/86
[2016-12-04 08:31] LABS: Hematocrit 46 % (35-47); Hemoglobin 15.5 g/dl (12.0-16.0); Mean Corpuscular HGB Conc 33 g/dl (31-36); Mean Corpuscular Hemoglobin 29 pg (27-31); Mean Corpuscular Volume 86 fL (80-97); Mean Platelet Volume 8 um3 (7.4-10.4); Red Blood Count 5.38 10^6/ul (4.0-5.4); Red Cell Distribution Width 17 % (10.5-15)
[2016-12-04 08:49] LABS: Troponin I 0.03 ng/mL (<0.04)
[2016-12-04 08:53] LABS: ALT 5 U/L (7-52); AST 6 U/L (13-39); Albumin 2.9 g/dL (3.2-5.2); Alkaline Phosphatase 104 U/L (34-104); Amylase < 10 U/L (29-103); Anion Gap 8 mmol/L (2-11); BUN/Creatinine Ratio 5.4 (8-20); Blood Urea Nitrogen 25 mg/dL (6-24); C Reactive Protein 6.88 mg/L (< 5.00); CO2 Carbon Dioxide 28 mmol/L (22-32); Chloride 98 mmol/L (101-111); EGFR African American 13.6 (>60); EGFR Non-African American 10.5 (>60); Globulin 3.1 g/dL (2-4); Glucose 258 mg/dL (70-100); Lipase 20 U/L (11.0-82.0); Magnesium 1.7 mg/dL (1.9-2.7); Potassium 3.8 mmol/L (3.5-5.0); Sodium 134 mmol/L (133-145)
--- NOTE | 2016-12-04 16:50 | ED ---
Di Palacio SooYoung, scribed for Jeffery Christine MD on 12/04/16 at 0739 . Abdominal Pain/Female - HPI Summary HPI Summary: A 36 y/o F presents to ED with c/o acute on chronic abd pain for past month. Radiates to R flank. Associated sx: n/v; constipation onset 3 days ago; chills; tremors. Denies fever, diarrhea. Pt saw a GI specialist at [place], [facility] , and is scheduled for endoscopy in Jan; she states they have not found anything. PMHx: controlled DM; gastroparesis. She's had bloodwork and CT scan done a month ago, and last visit to [facility] was yesterday. - History of Current Complaint Chief Complaint: EDAbdPain Stated Complaint: N & V Time Seen by Provider: 12/04/16 07:27 Hx Obtained From: Patient, Medical Records Hx Last Menstrual Period: June 2016 Onset/Duration: Lasting Weeks, Still Present Timing: Constant Severity Currently: Severe Pain Intensity: 9 Pain Scale Used: 0-10 Numeric Associated Signs and Symptoms: Positive: Constipation - onset 3 days ago, Nausea , Vomiting. Negative: Fever, Diarrhea Allergies/Adverse Reactions: Allergies Allergy/AdvReac Type Severity Reaction Status Date / Time Heparin Allergy Intermediate pt states Verified 12/04/16 06:16 it gave her a blood clot Niacin Allergy Mild Hives Verified 12/04/16 06:16 Ropinirole [From Requip] Allergy Mild Hives Verified 12/04/16 06:16 Amoxicillin [From Augmentin] AdvReac Mild "Doesn't Verified 12/04/16 06:16 work" Clavulanic Acid AdvReac Mild "Doesn't Verified 12/04/16 06:16 [From Augmentin] work" Codeine AdvReac Mild Nausea And Verified 12/04/16 06:16 Vomiting Erythromycin AdvReac Mild "DOESN'T Verified 12/04/16 06:16 WORK" Metronidazole [From Flagyl] AdvReac Mild Nausea And Verified 12/04/16 06:16 Vomiting Morphine AdvReac Mild "Doesn't Verified 12/04/16 06:16 work" Sulfamethoxazole AdvReac Mild Nausea And Verified 12/04/16 06:16 w/Trimethoprim Vomiting [From Bactrim] plastic tape Allergy Mild Blisters Uncoded 12/04/16 06:16 PMH/Surg Hx/FS Hx/Imm Hx Previously Healthy: No Endocrine/Hematology History: Reports: Hx Anticoagulant Therapy - Aspirin., Hx Blood Transfusions, Hx Diabetes - insulin dependent, Hx Thyroid Disease - nodule biopsied, normal, Hx Anemia - hx of - reports had tranfusion in 2013 after mi Cardiovascular History: Reports: Hx Angina, Hx Cardiac Arrest - in 2013 with CPR, Hx Cardiomegaly, Hx Coronary Artery Disease, Hx Hypercholesterolemia, Hx Hypertension, Hx Myocardial Infarction, Other Cardiovascular Problems/ Disorders - hyperlipidemia, CAD Denies: Hx Congestive Heart Failure, Hx Deep Vein Thrombosis, Hx Pacemaker/ ICD, Hx Valvular Heart Disease Respiratory History: Reports: Hx Asthma, Hx Chronic Obstructive Pulmonary Disease (COPD) - smoker, Hx Sleep Apnea - pt reports thinks, but no official testing done yet, Other Respiratory Problems/Disorders - acute respipatory failure with hypoxia - jan 2016 Denies: Hx Lung Cancer, Hx Pneumonia, Hx Pulmonary Embolism GI History: Reports: Hx Gastroesophageal Reflux Disease, Other GI Disorders - GASTROPARESIS - TAKING OMEPRAZOLE, reglan and zofran Denies: Hx Gall Bladder Disease, Hx Gastrointestinal Bleed, Hx Ulcer, Hx Urosepsis History: Reports: Hx Acute Renal Failure, Hx Chronic Renal Failure, Hx Dialysis - PERITONEAL, Hx Kidney Stones - in past, Hx Renal Disease - ESRD on home peritoneal dialysis , Other Problems/Disorders - ESRD- URINATES A SMALL AMOUNT Musculoskeletal History: Reports: Hx Arthritis - back, hips, Hx Back Problems - Sciatica and Herniated L3 disk, Other Musculoskeletal History - partial amputation of toes/foot Sensory History: Reports: Hx Eye Prosthesis - left, 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 Stage 5 Renal failure/dialysis Hx Chemotherapy: No Hx Radiation Therapy: No - Surgical History Surgery Procedure, Year, and Place: LEFT EYE REMOVED 2011 - HAS PROSTHETIC EYE ( ORBITS DONE 06/[address] LIGIA COY TO SCAN IN MRI) ;. MELANOMA REMOVED FROM [facility] 2012 (PROCEDURE DONE 4X);. CARDIAC CATH 2013 - NO STENTS;. LEFT WRIST FISTULA PLACEMENT ([facility]) 2013;. HEMODIALYSIS CATH RIGHT CHEST WALL 2013;. PERITONEAL DIALYSIS CATH 03/2014;. CHEST WALL CATH REMOVAL 08/2015 [facility] [place];. RIGHT GREAT TOE AMPUTATION, [facility] [place] 05/2015;. PLACEMENT RIGHT JUGULAR TESIO HEMODIALYSIS CATHETER [facility] [place] 10/22/2015;. REMOVAL OF JUGULAR CATH - OCT 2015. CARDIAC CATH - stentsx2 right leg. PARTIAL AMPUTATION RIGHT TOES 06/2016 Hx Anesthesia Reactions: No - Immunization History Date of Tetanus Vaccine: UTD Date of Influenza Vaccine: 11/2016 Infectious Disease History: No Infectious Disease History: Reports: Hx of Known/Suspected MRSA - MRSA R 1st toe Denies: Hx Clostridium Difficile, Hx Hepatitis, Hx Human Immunodeficiency Virus (HIV), Hx Shingles, Hx Tuberculosis, History Other Infectious Disease, Traveled Outside the [place] in Last 30 Days - Family History Known Family History: Positive: Cardiac Disease - father [place] at 42 y/o, Hypertension, Other - Positive for bipolar and depression. Completed suicide to sister. - Social History Occupation: Unemployed Lives: Alone Alcohol Use: None Hx Substance Use: No Substance Use Type: Reports: None Substance Use Comment - Amount & Last Used: METHADONE Hx Tobacco Use: Yes Smoking Status (MU): Heavy Every Day Tobacco Smoker Type: Cigarettes Amount Used/How Often: 1 PPD Length of Time of Smoking/Using Tobacco: 20 YEARS Have You Smoked in the Last Year: Yes Review of Systems Negative: Fever Positive: Abdominal Pain, Vomiting, Nausea, Other - pos: constipation. Negative : Diarrhea All Other Systems Reviewed And Are Negative: Yes Physical Exam - Summary Physical Exam Summary: VITAL SIGNS: Reviewed. GENERAL: Patient is a well-developed and nourished female who is lying comfortable in the stretcher. Patient is not in any acute respiratory distress. HEAD AND FACE: Normocephalic and atraumatic. EYES: PERRLA, EOMI x 2, No injected conjunctiva. EARS: Hearing grossly intact. Ear canals and tympanic membranes are WNL. MOUTH: Oropharynx within normal limits. NECK: Supple, trachea is midline, no adenopathy, no JVD. CHEST: Symmetric, no tenderness at palpation LUNGS: Slight wheezing. CVS: RRR, S1 and S2 present, no murmurs or gallops appreciated. ABDOMEN: Soft, tender in LLQ. Peritoneal access on RLQ. No signs of distention. Positive bowel sounds. No rebound, no guarding, and no masses palpated. No abdominal bruit or pulsations. EXTREMITIES: FROM in all major joints, no edema, no cyanosis or clubbing. RLE has toe ampuations. NEURO: Alert and oriented x 3. No acute neurological deficits. Speech is normal. SKIN: Dry and warm Triage Information Reviewed: Yes Vital Signs On Initial Exam: Initial Vitals Temp Pulse Resp BP Pulse Ox 97.7 F 115 20 137/82 92 12/04/16 05:46 12/04/16 05:46 12/04/16 05:46 12/04/16 05:46 12/04/16 05:46 Vital Signs Reviewed: Yes Diagnostics - Vital Signs Vital Signs Temp Pulse Resp BP Pulse Ox 12/04/16 06:30 102 117/66 89 12/04/16 06:13 114/63 12/04/16 06:12 103 12 112/73 90 12/04/16 05:46 97.7 F 115 20 137/82 92 - Laboratory Lab Results: Lab Results 12/04/16 12/04/16 12/04/16 Range/Units 08:14 08:14 08:14 WBC 12.0 H (3.5-10.8) 10^3/ul RBC 5.38 (4.0-5.4) 10^6/ul Hgb 15.5 (12.0-16.0) g/dl Hct 46 (35-47) % MCV 86 (80-97) fL MCH 29 (27-31) pg MCHC 33 (31-36) g/dl RDW 17 H (10.5-15) % Plt Count 344 (150-450) 10^3/ul MPV 8 (7.4-10.4) um3 Neut % (Auto) 80.3 (38-83) % Lymph % (Auto) 12.0 L (25-47) % Taliaferro % (Auto) 4.8 (1-9) % Eos % (Auto) 1.2 (0-6) % Baso % (Auto) 1.7 (0-2) % Absolute Neuts (auto) 9.6 H (1.5-7.7) 10^3/ul Absolute Lymphs (auto) 1.4 (1.0-4.8) 10^3/ul Absolute Monos (auto) 0.6 (0-0.8) 10^3/ul Absolute Eos (auto) 0.1 (0-0.6) 10^3/ul Absolute Basos (auto) 0.2 (0-0.2) 10^3/ul Absolute Nucleated RBC 0 10^3/ul Nucleated RBC % 0 Sodium 134 (133-145) mmol/L Potassium 3.8 (3.5-5.0) mmol/L Chloride 98 L (101-111) mmol/L Carbon Dioxide 28 (22-32) mmol/L Anion Gap 8 (2-11) mmol/L BUN 25 H (6-24) mg/dL Creatinine 4.67 H (0.51-0.95) mg/dL Est GFR ( Amer) 13.6 (>60) Est GFR (Non-Af Amer) 10.5 (>60) BUN/Creatinine Ratio 5.4 L (8-20) Glucose 258 H (70-100) mg/dL Lactic Acid 1.2 (0.5-2.0) mmol/L Calcium 9.0 (8.6-10.3) mg/dL Magnesium 1.7 L (1.9-2.7) mg/dL Total Bilirubin 0.40 (0.2-1.0) mg/dL AST 6 L (13-39) U/L ALT 5 L (7-52) U/L Alkaline Phosphatase 104 (34-104) U/L Troponin I 0.03 (<0.04) ng/mL C-Reactive Protein 6.88 H (< 5.00) mg/L Total Protein 6.0 L (6.4-8.9) g/dL Albumin 2.9 L (3.2-5.2) g/dL Globulin 3.1 (2-4) g/dL Albumin/Globulin Ratio 0.9 L (1-3) Amylase < 10 L (29-103) U/L Lipase 20 (11.0-82.0) U/L Beta HCG, Quant 0.62 mIU/mL Result Diagrams: 12/04/16 08:14 12/04/16 08:14 Lab Statement: Any lab studies that have been ordered have been reviewed, and results considered in the medical decision making process. Abdominal Pain Fem Course/Dx - Course Course Of Treatment: A 36 y/o F presents to ED with c/o acute on chronic abd pain for past month. Radiates to R flank. Associated sx: n/v; constipation onset 3 days ago; chills; tremors. Denies fever, diarrhea. Pt saw a GI specialist at [facility], and is scheduled for endoscopy in Jan; she states they have not found anything. PMHx: controlled DM; gastroparesis. She's had bloodwork and CT scan done a month ago, and last visit to [facility] was yesterday. Pt has a BUN/C ratio 5.4 and creatinine 4.67 consistent with end stage renal dz. Glucose of 258. I ordered IV fluids, Zofran and Protonix, for which I think pt has gastroparesis. I also ordered A/P CT because pt is c/o LLQ pain. A/P CT without contrast from 11/02/16 shows "IMPRESSION: NO CT EVIDENCE OF UROLITHIASIS. PERONEAL DIALYSIS FLUID/DIALYSIS CATHETER. NO ACUTE CT FINDINGS.". I was informed by nurse at approx 0850, pt walked out without our knowledge. Nurse called pt's cell phone and left a message to return to ED. - Diagnoses Differential Diagnosis: Positive: Bowel Obstruction, Constipation, Diverticulitis, Irritable Bowel Syndrome, Pancreatitis, Renal Colic, Urinary Tract Infection Provider Diagnoses: Abdominal pain Discharge - Discharge Plan Condition: Stable Disposition: AGAINST MEDICAL ADVICE Referrals: Aishwarya Solis MD [Primary Care Provider] - The documentation as recorded by the Di sexton SooYoung accurately reflects the service I personally performed and the decisions made by me, Jeffery Christine MD.
== END 2016-12-04 08:45 | disposition left against medical advice (07) ==
LOC: ED 05:44
DX: R10.9 Unspecified abdominal pain (principal); R11.2 Nausea with vomiting, unspecified; K59.00 Constipation, unspecified
CPT/HCPCS: 36415; 80053; 82150; 83605; 83690; 83735; 84484; 84702; 85025; 86140; 93005; 96374; 96375; 99283; J2405

== ENCOUNTER 2016-12-20 21:37 | Emergency (ER) | payer OTHER ==
[2016-12-20 22:43] VITALS: BP 202/119
[2016-12-20] MEDS ORDERED: Ondansetron INJ* 2 MG/ML VIAL IV ONE (23:02)
[2016-12-20] MEDS ORDERED: HYDROmorphone INJ* 2 MG/ML CARPUJECT SYRINGE IV SLOW PU ONE (23:02)
[2016-12-20 23:32] LABS: Hematocrit 44 % (35-47); Hemoglobin 14.4 g/dl (12.0-16.0); Mean Corpuscular HGB Conc 33 g/dl (31-36); Mean Corpuscular Hemoglobin 28 pg (27-31); Mean Corpuscular Volume 85 fL (80-97); Mean Platelet Volume 8 um3 (7.4-10.4); Red Blood Count 5.17 10^6/ul (4.0-5.4); Red Cell Distribution Width 16 % (10.5-15); White Blood Count 11.2 10^3/ul (3.5-10.8)
[2016-12-20 23:47] LABS: ALT 6 U/L (7-52); AST 5 U/L (13-39); Albumin 2.9 g/dL (3.2-5.2); Alkaline Phosphatase 103 U/L (34-104); Amylase < 10 U/L (29-103); Anion Gap 8 mmol/L (2-11); BUN/Creatinine Ratio 7.9 (8-20); Blood Urea Nitrogen 25 mg/dL (6-24); C Reactive Protein 18.07 mg/L (< 5.00); CO2 Carbon Dioxide 28 mmol/L (22-32); Chloride 97 mmol/L (101-111); EGFR African American 21.3 (>60); EGFR Non-African American 16.6 (>60); Globulin 3.2 g/dL (2-4); Glucose 345 mg/dL (70-100); Lipase 27 U/L (11.0-82.0); Potassium 3.4 mmol/L (3.5-5.0); Sodium 133 mmol/L (133-145); Total Protein 6.1 g/dL (6.4-8.9)
[2016-12-21] MEDS ORDERED: Haloperidol INJ IV/IM* 5 MG/ML AMP IM ONE (00:35)
--- NOTE | 2016-12-21 01:44 | ED ---
Omid Palacio Rebecca, scribed for Alan Lowery MD on 12/20/16 at 2229 . Complex/Multi-Sys Presentation - HPI Summary HPI Summary: Pt is a 36 y/o F BIBA who presents to ED c/o diffuse abdominal pain with N/V. Pt has been experiencing similar episodes intermittently since the beginning of last month that typically last about 1 to 1.5 weeks. The most recent bout began yesterday and is currently severe, ranked 10/10. Additionally c/o myalgias, productive cough. Denies dysuria and diarrhea. Last BM yesterday. Is on Warfarin , which she is compliant with. No PMHx DKA. Pt reports that prior doctors have suspected gastroparesis and was put on a new medication in October which does not seem to be improving symptoms. Last saw her GI 2 weeks ago who scheduled a scope for Jan.25. - History Of Current Complaint Chief Complaint: EDGeneral Hx Obtained From: Patient Onset/Duration: Lasting Days - Started yesterday, Still Present Severity Currently: Severe - 1010 Location: Pain At: - Diffuse abdominal pain Aggravating Factor(s): Nothing Alleviating Factor(s): Nothing Associated Signs And Symptoms: Positive: Cough, Nausea, Vomiting - Allergies/Home Medications Allergies/Adverse Reactions: Allergies Allergy/AdvReac Type Severity Reaction Status Date / Time Heparin Allergy Intermediate pt states Verified 12/04/16 06:16 it gave her a blood clot Niacin Allergy Mild Hives Verified 12/04/16 06:16 Ropinirole [From Requip] Allergy Mild Hives Verified 12/04/16 06:16 Amoxicillin [From Augmentin] AdvReac Mild "Doesn't Verified 12/04/16 06:16 work" Clavulanic Acid AdvReac Mild "Doesn't Verified 12/04/16 06:16 [From Augmentin] work" Codeine AdvReac Mild Nausea And Verified 12/04/16 06:16 Vomiting Erythromycin AdvReac Mild "DOESN'T Verified 12/04/16 06:16 WORK" Metronidazole [From Flagyl] AdvReac Mild Nausea And Verified 12/04/16 06:16 Vomiting Morphine AdvReac Mild "Doesn't Verified 12/04/16 06:16 work" Sulfamethoxazole AdvReac Mild Nausea And Verified 12/04/16 06:16 w/Trimethoprim Vomiting [From Bactrim] plastic tape Allergy Mild Blisters Uncoded 12/04/16 06:16 PMH/Surg Hx/FS Hx/Imm Hx Endocrine/Hematology History: Reports: Hx Anticoagulant Therapy - Aspirin., Hx Blood Transfusions, Hx Diabetes - insulin dependent, Hx Thyroid Disease - nodule biopsied, normal, Hx Anemia - hx of - reports had tranfusion in 2013 after mi Cardiovascular History: Reports: Hx Angina, Hx Cardiac Arrest - in 2013 with CPR, Hx Cardiomegaly, Hx Coronary Artery Disease, Hx Hypercholesterolemia, Hx Hypertension, Hx Myocardial Infarction, Other Cardiovascular Problems/ Disorders - hyperlipidemia, CAD Denies: Hx Congestive Heart Failure, Hx Deep Vein Thrombosis, Hx Pacemaker/ ICD, Hx Valvular Heart Disease Respiratory History: Reports: Hx Asthma, Hx Chronic Obstructive Pulmonary Disease (COPD) - smoker, Hx Sleep Apnea - pt reports thinks, but no official testing done yet, Other Respiratory Problems/Disorders - acute respipatory failure with hypoxia - jan 2016 Denies: Hx Lung Cancer, Hx Pneumonia, Hx Pulmonary Embolism GI History: Reports: Hx Gastroesophageal Reflux Disease, Other GI Disorders - GASTROPARESIS - TAKING OMEPRAZOLE, reglan and zofran Denies: Hx Gall Bladder Disease, Hx Gastrointestinal Bleed, Hx Ulcer, Hx Urosepsis History: Reports: Hx Acute Renal Failure, Hx Chronic Renal Failure, Hx Dialysis - PERITONEAL, Hx Kidney Stones - in past, Hx Renal Disease - ESRD on home peritoneal dialysis , Other Problems/Disorders - ESRD- URINATES A SMALL AMOUNT Musculoskeletal History: Reports: Hx Arthritis - back, hips, Hx Back Problems - Sciatica and Herniated L3 disk, Other Musculoskeletal History - partial amputation of toes/foot Sensory History: Reports: Hx Eye Prosthesis - left, 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 Stage 5 Renal failure/dialysis Hx Chemotherapy: No Hx Radiation Therapy: No - Surgical History Surgery Procedure, Year, and Place: LEFT EYE REMOVED 2011 - HAS PROSTHETIC EYE ( ORBITS DONE 06/[address] LIGIA COY TO SCAN IN MRI) ;. MELANOMA REMOVED FROM [facility] 2012 (PROCEDURE DONE 4X);. CARDIAC CATH 2013 - NO STENTS;. LEFT WRIST FISTULA PLACEMENT ([facility]) 2013;. HEMODIALYSIS CATH RIGHT CHEST WALL 2013;. PERITONEAL DIALYSIS CATH 03/2014;. CHEST WALL CATH REMOVAL 08/2015 [facility] [place];. RIGHT GREAT TOE AMPUTATION, [facility] [place] 05/2015;. PLACEMENT RIGHT JUGULAR TESIO HEMODIALYSIS CATHETER [facility] [place] 10/22/2015;. REMOVAL OF JUGULAR CATH - OCT 2015. CARDIAC CATH - stentsx2 right leg. PARTIAL AMPUTATION RIGHT TOES 06/2016 Hx Anesthesia Reactions: No - Immunization History Date of Tetanus Vaccine: UTD Date of Influenza Vaccine: 11/2016 Infectious Disease History: No Infectious Disease History: Reports: Hx of Known/Suspected MRSA - MRSA R 1st toe Denies: Hx Clostridium Difficile, Hx Hepatitis, Hx Human Immunodeficiency Virus (HIV), Hx Shingles, Hx Tuberculosis, History Other Infectious Disease, Traveled Outside the in Last 30 Days - Family History Known Family History: Positive: Cardiac Disease - father [place] at 42 y/o, Hypertension, Other - Positive for bipolar and depression. Completed suicide to sister. - Social History Alcohol Use: None Hx Substance Use: No Substance Use Type: Reports: None Substance Use Comment - Amount & Last Used: METHADONE Hx Tobacco Use: Yes Smoking Status (MU): Heavy Every Day Tobacco Smoker Type: Cigarettes Amount Used/How Often: 1 PPD Length of Time of Smoking/Using Tobacco: 20 YEARS Have You Smoked in the Last Year: Yes Review of Systems Positive: Cough Positive: Abdominal Pain, Vomiting, Nausea. Negative: Diarrhea Negative: dysuria Positive: Myalgia All Other Systems Reviewed And Are Negative: Yes Physical Exam - Summary Physical Exam Summary: Appearance: Well-appearing, Well-nourished Skin: Warm, dry Eyes: Normal ENT: Dry mucous membranes Neck: Supple, nontender Respiratory: Clear to auscultation Cardiovascular: Normal Abdomen: Soft, tenderness in the RUQ and RLQ without rebound or guarding Bowel: Present Musculoskeletal: Strength/ROM Intact, toes amputated on the left side which is bandaged Neurological: Normal, A&Ox3 Psychiatric: Normal Triage Information Reviewed: Yes Vital Signs On Initial Exam: Initial Vitals Temp Pulse Resp BP Pulse Ox 97.8 F 103 16 180/96 100 12/20/16 21:52 12/20/16 21:52 12/20/16 21:52 12/20/16 21:52 12/20/16 21:52 Vital Signs Reviewed: Yes - [place] Coma Scale Coma Scale Total: 15 Diagnostics - Vital Signs Vital Signs Temp Pulse Resp BP Pulse Ox 12/20/16 21:52 97.8 F 103 16 180/96 100 - Laboratory Lab Results: Lab Results 12/20/16 12/20/16 12/20/16 Range/Units 23:15 23:15 23:15 WBC 11.2 H (3.5-10.8) 10^3/ul RBC 5.17 (4.0-5.4) 10^6/ul Hgb 14.4 (12.0-16.0) g/dl Hct 44 (35-47) % MCV 85 (80-97) fL MCH 28 (27-31) pg MCHC 33 (31-36) g/dl RDW 16 H (10.5-15) % Plt Count 295 (150-450) 10^3/ul MPV 8 (7.4-10.4) um3 Neut % (Auto) 80.8 (38-83) % Lymph % (Auto) 13.0 L (25-47) % [place] % (Auto) 3.8 (1-9) % Eos % (Auto) 1.5 (0-6) % Baso % (Auto) 0.9 (0-2) % Absolute Neuts (auto) 9.0 H (1.5-7.7) 10^3/ul Absolute Lymphs (auto) 1.5 (1.0-4.8) 10^3/ul Absolute Monos (auto) 0.4 (0-0.8) 10^3/ul Absolute Eos (auto) 0.2 (0-0.6) 10^3/ul Absolute Basos (auto) 0.1 (0-0.2) 10^3/ul Absolute Nucleated RBC 0.01 10^3/ul Nucleated RBC % 0.1 INR (Anticoag Therapy) 2.61 H (0.89-1.11) APTT 45.7 H (26.0-36.3) seconds Sodium 133 (133-145) mmol/L Potassium 3.4 L (3.5-5.0) mmol/L Chloride 97 L (101-111) mmol/L Carbon Dioxide 28 (22-32) mmol/L Anion Gap 8 (2-11) mmol/L BUN 25 H (6-24) mg/dL Creatinine 3.15 H (0.51-0.95) mg/dL Est GFR ( Amer) 21.3 (>60) Est GFR (Non-Af Amer) 16.6 (>60) BUN/Creatinine Ratio 7.9 L (8-20) Glucose 345 H (70-100) mg/dL Calcium 9.0 (8.6-10.3) mg/dL Total Bilirubin 0.30 (0.2-1.0) mg/dL AST 5 L (13-39) U/L ALT 6 L (7-52) U/L Alkaline Phosphatase 103 (34-104) U/L C-Reactive Protein 18.07 H (< 5.00) mg/L Total Protein 6.1 L (6.4-8.9) g/dL Albumin 2.9 L (3.2-5.2) g/dL Globulin 3.2 (2-4) g/dL Albumin/Globulin Ratio 0.9 L (1-3) Amylase < 10 L (29-103) U/L Lipase 27 (11.0-82.0) U/L Blood Type Antibody Screen 12/20/16 Range/Units 23:15 WBC (3.5-10.8) 10^3/ul RBC (4.0-5.4) 10^6/ul Hgb (12.0-16.0) g/dl Hct (35-47) % MCV (80-97) fL MCH (27-31) pg MCHC (31-36) g/dl RDW (10.5-15) % Plt Count (150-450) 10^3/ul MPV (7.4-10.4) um3 Neut % (Auto) (38-83) % Lymph % (Auto) (25-47) % [place] % (Auto) (1-9) % Eos % (Auto) (0-6) % Baso % (Auto) (0-2) % Absolute Neuts (auto) (1.5-7.7) 10^3/ul Absolute Lymphs (auto) (1.0-4.8) 10^3/ul Absolute Monos (auto) (0-0.8) 10^3/ul Absolute Eos (auto) (0-0.6) 10^3/ul Absolute Basos (auto) (0-0.2) 10^3/ul Absolute Nucleated RBC 10^3/ul Nucleated RBC % INR (Anticoag Therapy) (0.89-1.11) APTT (26.0-36.3) seconds Sodium (133-145) mmol/L Potassium (3.5-5.0) mmol/L Chloride (101-111) mmol/L Carbon Dioxide (22-32) mmol/L Anion Gap (2-11) mmol/L BUN (6-24) mg/dL Creatinine (0.51-0.95) mg/dL Est GFR ( Amer) (>60) Est GFR (Non-Af Amer) (>60) BUN/Creatinine Ratio (8-20) Glucose (70-100) mg/dL Calcium (8.6-10.3) mg/dL Total Bilirubin (0.2-1.0) mg/dL AST (13-39) U/L ALT (7-52) U/L Alkaline Phosphatase (34-104) U/L C-Reactive Protein (< 5.00) mg/L Total Protein (6.4-8.9) g/dL Albumin (3.2-5.2) g/dL Globulin (2-4) g/dL Albumin/Globulin Ratio (1-3) Amylase (29-103) U/L Lipase (11.0-82.0) U/L Blood Type O Positive Antibody Screen Negative Result Diagrams: 12/20/16 23:15 12/20/16 23:15 Lab Statement: Any lab studies that have been ordered have been reviewed, and results considered in the medical decision making process. Complex Multi-Symp Course/Dx Course Of Treatment: pt eloped without notifying staff and before i was able to reevaluate - Diagnoses Provider Diagnoses: Abdominal pain Discharge - Discharge Plan Condition: Stable Disposition: OTHER Discharge Disposition Comment: pt eloped from ED Referrals: Aishwarya Solis MD [Primary Care Provider] - The documentation as recorded by the Omid sexton Rebecca accurately reflects the service I personally performed and the decisions made by me, Alan Lowery MD.
--- NOTE | 2016-12-21 07:48 | RAD ---
INDICATION: Hypertension and abdominal pain COMPARISON: None. TECHNIQUE: Single AP portable view of the chest and 3 views of the abdomen was obtained. FINDINGS: Image quality is compromised due to the relative inferiority of a portable chest x-ray. The heart and mediastinum exhibit normal size and contour. The lungs are grossly clear. There is no evidence of a large pleural effusion. Visualized bones are normal for the patient's age. The gas and stool pattern is unremarkable. A peritoneal dialysis catheter is noted overlying the right lower quadrant. There is no evidence of free air. IMPRESSION: There is no radiographic evidence of acute cardiopulmonary or abdominal abnormality.
== END 2016-12-21 01:43 ==
LOC: ED 21:37
DX: R10.9 Unspecified abdominal pain (principal); R05 Cough; R11.10 Vomiting, unspecified; R11.2 Nausea with vomiting, unspecified; Z79.82 Long term (current) use of aspirin; Z79.01 Long term (current) use of anticoagulants; Z86.79 Personal history of other diseases of the circulatory system; Z87.09 Personal history of other diseases of the respiratory system; C51.9 Malignant neoplasm of vulva, unspecified
CPT/HCPCS: 36415; 71010; 74000; 80053; 82150; 83690; 85025; 85610; 85730; 86140; 86850; 86900; 86901; 87040; 96374; 96375; 99283; J1170; J1630; J2405

== ENCOUNTER 2016-12-21 19:47 | Emergency (ER) | payer OTHER ==
[2016-12-21 20:03] VITALS: BP 173/119
--- NOTE | 2016-12-21 21:28 | RAD ---
INDICATION: Abdominal pain COMPARISON: CTA aortogram and runoff May 19, 2016 TECHNIQUE: Noncontrast axial source images were obtained from the hemidiaphragms to the symphysis pubis. This examination was ordered using a renal stone protocol which is performed without oral or intravenous contrast and therefore has inherent limitations when used to evaluate other intra-abdominal or intrapelvic pathology. Consider conventional contrast enhanced imaging if clinically . Lung bases: There are mild chronic interstitial changes in the lung bases. Liver: The liver is normal in size. Noncontrast imaging shows no evidence of a hepatic mass or ductal dilatation. Gallbladder: There are no calcified gallstones. There is no evidence of wall thickening or pericholecystic fluid.. Spleen: The spleen is normal in size. The noncontrast CT appearance is normal. Pancreas: Noncontrast imaging shows no pancreatic mass or ductal dilitation. Adrenal glands: No masses are identified. Kidneys/Bladder: There is no evidence of nephrolithiasis or CT evidence of hydronephrosis. There are renal vascular calcifications. Noncontrast imaging shows no evidence of a renal mass. The bladder is unremarkable.. Adenopathy: There is no evidence of intraperitoneal or retroperitoneal adenopathy. Evaluation is limited without oral contrast. Fluid collections: Moderate free fluid consistent with peritoneal dialysis.. Vessels: There are atherosclerotic changes of the aorta and iliac vessels. There is no focal aneurysm. The IVC appears normal Pelvic organs: The uterus and adnexa appear normal GI tract: Evaluation of the bowel is limited without oral contrast. The noncontrast CT appearance the upper GI tract is unremarkable. There are scattered diverticula throughout the colon. There is no obstruction. Soft tissues: No soft tissue abnormalities of the extraperitoneal abdomen or pelvis are identified. Osseous structures: There are no acute osseous findings. IMPRESSION: NONCONTRAST IMAGING WAS SHOWN NO ACUTE CT FINDINGS. THERE IS NO MASS OR INFLAMMATORY CHANGE. THERE ARE SCATTERED DIVERTICULA THROUGHOUT THE COLON. THERE IS FREE FLUID CONSISTENT WITH PERITONEAL DIALYSIS.
[2016-12-21] MEDS ORDERED: Ondansetron INJ* 2 MG/ML VIAL IV ONE (21:42)
[2016-12-21] MEDS ORDERED: HYDROmorphone INJ* 1 MG/ML CARPUJECT SYRINGE IV ONE (21:42)
--- NOTE | 2016-12-21 22:10 | ED ---
Yuki Palacio Abhishek, scribed for Wilfrid Beal MD on 12/21/16 at 2124 . Abdominal Pain/Female - HPI Summary HPI Summary: This patient is a 36 year old F presenting [place] [facility] accompanied by male with a chief complaint of abd pain since 2 months ago. The CC is described as worse since yesterday and diffusive. The patient rates the pain 8/10 in severity. Symptoms aggravated by nothing. Symptoms alleviated by nothing. Patient reports N/V, decreased appetite, intermittent confusion, and generalized body aches, SOB , HTN and productive cough (described as foamy). Patient denies diarrhea. PMHx includes kidney disease and neuropathy. 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 Negative: Diarrhea Allergies/Adverse Reactions: Allergies Allergy/AdvReac Type Severity Reaction Status Date / Time Heparin Allergy Intermediate pt states Verified 12/04/16 06:16 it gave her a blood clot Niacin Allergy Mild Hives Verified 12/04/16 06:16 Ropinirole [From Requip] Allergy Mild Hives Verified 12/04/16 06:16 Amoxicillin [From Augmentin] AdvReac Mild "Doesn't Verified 12/04/16 06:16 work" Clavulanic Acid AdvReac Mild "Doesn't Verified 12/04/16 06:16 [From Augmentin] work" Codeine AdvReac Mild Nausea And Verified 12/04/16 06:16 Vomiting Erythromycin AdvReac Mild "DOESN'T Verified 12/04/16 06:16 WORK" Metronidazole [From Flagyl] AdvReac Mild Nausea And Verified 12/04/16 06:16 Vomiting Morphine AdvReac Mild "Doesn't Verified 12/04/16 06:16 work" Sulfamethoxazole AdvReac Mild Nausea And Verified 12/04/16 06:16 w/Trimethoprim Vomiting [From Bactrim] plastic tape Allergy Mild Blisters Uncoded 12/04/16 06:16 PMH/Surg Hx/FS Hx/Imm Hx Endocrine/Hematology History: Reports: Hx Anticoagulant Therapy - Aspirin., Hx Blood Transfusions, Hx Diabetes - insulin dependent, Hx Thyroid Disease - nodule biopsied, normal, Hx Anemia - hx of - reports had tranfusion in 2013 after mi Cardiovascular History: Reports: Hx Angina, Hx Cardiac Arrest - in 2013 with CPR, Hx Cardiomegaly, Hx Coronary Artery Disease, Hx Hypercholesterolemia, Hx Hypertension, Hx Myocardial Infarction, Other Cardiovascular Problems/ Disorders - hyperlipidemia, CAD Denies: Hx Congestive Heart Failure, Hx Deep Vein Thrombosis, Hx Pacemaker/ ICD, Hx Valvular Heart Disease Respiratory History: Reports: Hx Asthma, Hx Chronic Obstructive Pulmonary Disease (COPD) - smoker, Hx Sleep Apnea - pt reports md thinks, but no official testing done yet, Other Respiratory Problems/Disorders - acute respipatory failure with hypoxia - jan 2016 Denies: Hx Lung Cancer, Hx Pneumonia, Hx Pulmonary Embolism GI History: Reports: Hx Gastroesophageal Reflux Disease, Other GI Disorders - GASTROPARESIS - TAKING OMEPRAZOLE, reglan and zofran Denies: Hx Gall Bladder Disease, Hx Gastrointestinal Bleed, Hx Ulcer, Hx Urosepsis History: Reports: Hx Acute Renal Failure, Hx Chronic Renal Failure, Hx Dialysis - PERITONEAL, Hx Kidney Stones - in past, Hx Renal Disease - ESRD on home peritoneal dialysis , Other Problems/Disorders - ESRD- URINATES A SMALL AMOUNT Musculoskeletal History: Reports: Hx Arthritis - back, hips, Hx Back Problems - Sciatica and Herniated L3 disk, Other Musculoskeletal History - partial amputation of toes/foot Sensory History: Reports: Hx Eye Prosthesis - left, 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 Stage 5 Renal failure/dialysis Hx Chemotherapy: No Hx Radiation Therapy: No - Surgical History Surgery Procedure, Year, and Place: LEFT EYE REMOVED 2011 - HAS PROSTHETIC EYE ( ORBITS DONE 06/[address] LIGIA COY TO SCAN IN MRI) ;. MELANOMA REMOVED FROM [facility]VA 2012 (PROCEDURE DONE 4X);. CARDIAC CATH 2013 - NO STENTS;. LEFT WRIST FISTULA PLACEMENT ([facility]) 2013;. HEMODIALYSIS CATH RIGHT CHEST WALL 2013;. PERITONEAL DIALYSIS CATH 03/2014;. [place]ST WALL C[place] [facility] [place]. [place] GREAT [place]E [place]UT[place], [facility] [place];. PLACEMENT RIGHT JUGULAR TESIO HEMODIALYSIS CATHETER [facility]/2015;. REMOVAL OF JUGULAR CATH - OCT 2015. CARDIAC CATH - stentsx2 right leg. PARTIAL AMPUTATION RIGHT TOES 06/2016 Hx Anesthesia Reactions: No - Immunization History Date of Tetanus Vaccine: UTD Date of Influenza Vaccine: 11/2016 Infectious Disease History: No Infectious Disease History: Reports: Hx of Known/Suspected MRSA - MRSA R 1st toe Denies: Hx Clostridium Difficile, Hx Hepatitis, Hx Human Immunodeficiency Virus (HIV), Hx Shingles, Hx Tuberculosis, History Other Infectious Disease, Traveled Outside the [place] in Last 30 Days - Family History Known Family History: Positive: Cardiac Disease - father [place] at 42 y/o, Hypertension, Other - Positive for bipolar and depression. Completed suicide to sister. - Social History Alcohol Use: None Hx Substance Use: No Substance Use Type: Reports: None Substance Use Comment - Amount & Last Used: METHADONE Hx Tobacco Use: Yes Smoking Status (MU): Heavy Every Day Tobacco Smoker Type: Cigarettes Amount Used/How Often: 1 PPD Length of Time of Smoking/Using Tobacco: 20 YEARS Have You Smoked in the Last Year: Yes Review of Systems Constitutional: Negative Eyes: Negative ENT: Negative Positive: Other - HTN Positive: Shortness Of Breath, Cough - productive ("foamy") Positive: Abdominal Pain, Vomiting, Nausea - decreased appetite. Negative: Diarrhea Genitourinary: Negative Positive: Other - generalized body aches Skin: Negative Neurological: Other - intermittent confusion Psychological: Normal All Other Systems Reviewed And Are Negative: Yes Physical Exam - Summary Physical Exam Summary: General: well-appearing, no pain distress Skin: warm, color reflects adequate perfusion, dry Head: normal Eyes: EOMI, [place] ENT: normal Neck: supple, nontender Respiratory: CTA, breath sounds present, Lungs clear Cardiovascular: RRR, regular heart sounds Abdomen: soft, non-tender to palpation, Bowel: hypoactive bowel sounds Musculoskeletal: normal, strength/ROM intact, missing distal part of right foot Neurological: generalized weakness Psychological: affect/mood appropriate Triage Information Reviewed: Yes Vital Signs On Initial Exam: Initial Vitals Temp Pulse Resp BP Pulse Ox 97.5 F 93 18 173/119 93 12/21/16 19:59 12/21/16 19:59 12/21/16 19:59 12/21/16 19:59 12/21/16 19:59 Vital Signs Reviewed: Yes - [place] Coma Scale Coma Scale Total: 15 Diagnostics - Vital Signs Vital Signs Temp Pulse Resp BP Pulse Ox 12/21/16 19:59 97.5 F 93 18 173/119 93 - Laboratory Lab Statement: Any lab studies that have been ordered have been reviewed, and results considered in the medical decision making process. - CT CT A/P CT Interpretation Completed By: Radiologist - CT A/P reveals NONCONTRAST IMAGING WAS SHOWN NO ACUTE CT FINDINGS. THERE IS NO MASS OR INFLAMMATORY CHANGE. THERE ARE SCATTERED DIVERTICULA THROUGHOUT THE COLON. THERE IS FREE FLUID CONSISTENT WITH PERITONEAL DIALYSIS. ED physician has reviewed this radiology report and agrees. Abdominal Pain Fem Course/Dx - Course Course Of Treatment: PATIENT LEFT AMA - Diagnoses Provider Diagnoses: Left against medical advice Discharge - Discharge Plan Condition: Stable Disposition: AGAINST MEDICAL ADVICE Referrals: Aishwarya Solis MD [Primary Care Provider] - The documentation as recorded by the Yuki sexton Abhishek accurately reflects the service I personally performed and the decisions made by me, Wilfrid Beal MD.
== END 2016-12-21 21:55 | disposition left against medical advice (07) ==
LOC: ED 19:47
DX: Z53.21 Procedure and treatment not carried out due to patient leaving prior to being seen by health care provider (principal); R05 Cough; I10 Essential (primary) hypertension; R06.02 Shortness of breath; R11.2 Nausea with vomiting, unspecified; Z79.82 Long term (current) use of aspirin; Z79.01 Long term (current) use of anticoagulants; F17.210 Nicotine dependence, cigarettes, uncomplicated
CPT/HCPCS: 74176; 99285

== ENCOUNTER → 2016-12-25 22:06 | Emergency (ER) | payer OTHER ==
[2016-12-25 22:13] VITALS: BP 142/94
[2016-12-26 00:13] LABS: Hematocrit 44 % (35-47); Hemoglobin 14.5 g/dl (12.0-16.0); Mean Corpuscular HGB Conc 33 g/dl (31-36); Mean Corpuscular Hemoglobin 28 pg (27-31); Mean Corpuscular Volume 85 fL (80-97); Mean Platelet Volume 8 um3 (7.4-10.4); Red Blood Count 5.12 10^6/ul (4.0-5.4); Red Cell Distribution Width 17 % (10.5-15); White Blood Count 17.7 10^3/ul (3.5-10.8)
--- NOTE | 2016-12-26 01:12 | ED ---
Camilo Palacio Benjamin, scribed for Rosita Harrell MD on 12/25/16 at 2317 . Abdominal Pain/Female - HPI Summary HPI Summary: 36yo female peritoneal dialysis pt c/o diffuse sharp abdominal pain that is also burning at times. Pt was seen at [facility] at 12/21/16 where she had upper endoscopy done. Pt had a biopsy done because her stomach lining looked red per pt. Pt was d/c from [facility] ED. Pt states they did not test her peritoneal fluid. Pt was also seen at [facility] 12/24 and states she had a CT abd/ pelvis that showed an ovarian cyst. Per pt she had an US of the cyst was unremarkable. Pt also reports N/V and temp of 100F last pm. Pt states the [facility] tested her peritoneal fluid last pm and told her she had peritonitis, but per pt "they weren't sure if they trusted it". Pt arrives by ambulance and is accompanied by her male SO. States she did not bring fluid or supplies to do a dialysis exchange in the ED. Pt states that she still makes some urine and has been having decreased urine frequency and is unable to void on demand. Pt states she has not had peritonitis before. Pt has a chronic wound on right foot that is bandaged. In addition to pt's ED visit to [facility] on 12/21/16 and [facility] on 11/3016, pt has been seen at [facility] ED in just Nov 2016 on the following dates and left AMA each [facility] visit. 12/03/16 Julio Cesar AMA 12/04/[address] abd/pelvis done 12/20/16 Beverley AMA 12/21/[address] abd/pelvis done. Pt's donor support technician for the PD per pt is Dr. Marrufo. - History of Current Complaint Chief Complaint: EDAbdPain Stated Complaint: ABD PAIN Time Seen by Provider: 12/25/16 22:41 Hx Obtained From: Patient, Family/Customer Contact Specialist - male SO ?: No Onset/Duration: Gradual Onset, Lasting Days, Still Present Timing: Constant Severity Initially: Moderate Severity Currently: Moderate Pain Intensity: 8 Pain Scale Used: 0-10 Numeric Location: Diffuse Radiates: No Character: Sharp, Burning Aggravating Factor(s): Nothing Alleviating Factor(s): Nothing Associated Signs and Symptoms: Positive: Fever, Urinary Symptoms - decreased urination, Nausea, Vomiting, Other: - states peritoneal dialysis exchanges are clear, that "you could read the newspaper through the fluid". Denies drainage at the PD catheter site.. Negative: Vaginal Bleeding Allergies/Adverse Reactions: Allergies Allergy/AdvReac Type Severity Reaction Status Date / Time Heparin Allergy Intermediate pt states Verified 12/04/16 06:16 it gave her a blood clot Niacin Allergy Mild Hives Verified 12/04/16 06:16 Ropinirole [From Requip] Allergy Mild Hives Verified 12/04/16 06:16 Amoxicillin [From Augmentin] AdvReac Mild "Doesn't Verified 12/04/16 06:16 work" Clavulanic Acid AdvReac Mild "Doesn't Verified 12/04/16 06:16 [From Augmentin] work" Codeine AdvReac Mild Nausea And Verified 12/04/16 06:16 Vomiting Erythromycin AdvReac Mild "DOESN'T Verified 12/04/16 06:16 WORK" Metronidazole [From Flagyl] AdvReac Mild Nausea And Verified 12/04/16 06:16 Vomiting Morphine AdvReac Mild "Doesn't Verified 12/04/16 06:16 work" Sulfamethoxazole AdvReac Mild Nausea And Verified 12/04/16 06:16 w/Trimethoprim Vomiting [From Bactrim] plastic tape Allergy Mild Blisters Uncoded 12/04/16 06:16 PMH/Surg Hx/FS Hx/Imm Hx Previously Healthy: No - CKD on PD Endocrine/Hematology History: Reports: Hx Anticoagulant Therapy - Aspirin., Hx Blood Transfusions, Hx Diabetes - insulin dependent, Hx Thyroid Disease - nodule biopsied, normal, Hx Anemia - hx of - reports had tranfusion in 2013 after mi Cardiovascular History: Reports: Hx Angina, Hx Cardiac Arrest - in 2013 with CPR, Hx Cardiomegaly, Hx Coronary Artery Disease, Hx Hypercholesterolemia, Hx Hypertension, Hx Myocardial Infarction Denies: Hx Congestive Heart Failure, Hx Deep Vein Thrombosis, Hx Pacemaker/ ICD, Hx Valvular Heart Disease Respiratory History: Reports: Hx Asthma, Hx Chronic Obstructive Pulmonary Disease (COPD) - smoker, Hx Sleep Apnea - pt reports thinks, but no official testing done yet, Other Respiratory Problems/Disorders - acute respipatory failure with hypoxia - jan 2016 Denies: Hx Lung Cancer, Hx Pneumonia, Hx Pulmonary Embolism GI History: Reports: Hx Gastroesophageal Reflux Disease, Other GI Disorders - GASTROPARESIS - TAKING OMEPRAZOLE, reglan and zofran Denies: Hx Gall Bladder Disease, Hx Gastrointestinal Bleed, Hx Ulcer, Hx Urosepsis History: Reports: Hx Chronic Renal Failure - ESRD on PD, Hx Dialysis - PERITONEAL, Hx Kidney Stones, Other Problems/Disorders Musculoskeletal History: Reports: Hx Arthritis - back, hips, Hx Back Problems - Sciatica and Herniated L3 disk, Other Musculoskeletal History - partial amputation of toes/foot Sensory History: Reports: Hx Eye Prosthesis - left, 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, Hx Vision Problem Denies: Hx Contacts or Glasses, Hx Hearing Aid Opthamlomology History: Reports: Hx Eye Prosthesis - left, 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, Hx Vision Problem Denies: Hx Contacts or Glasses Neurological History: Reports: Other Neuro Impairments/Disorders - neuropathy Denies: Hx Transient Ischemic Attacks (TIA) Psychiatric History: Reports: Hx Anxiety, Hx Depression, Hx Bipolar Disorder Denies: Hx Eating Disorder, Hx Panic Disorder, Hx Schizophrenia, Hx of Violent Episodes Against Others - Cancer History Cancer Type, 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 MELANOMA REMOVED FROM [facility] 2012 (PROCEDURE DONE 4X);. CARDIAC CATH 2013 - NO STENTS;. LEFT WRIST FISTULA PLACEMENT (RPH) 2013;. HEMODIALYSIS CATH RIGHT CHEST WALL 2013;. PERITONEAL DIALYSIS CATH 03/2014;. CHEST WALL CATH REMOVAL 08/2015 [facility];. RIGHT GREAT TOE AMPUTATION, [facility] 05/2015;. PLACEMENT RIGHT JUGULAR TESIO HEMODIALYSIS CATHETER [facility] 10/22/2015;. REMOVAL OF JUGULAR CATH - OCT 2015. CARDIAC CATH - stentsx2 right leg. PARTIAL AMPUTATION RIGHT TOES 06/2016 Hx Anesthesia Reactions: No - Immunization History Date of Tetanus Vaccine: UTD Date of Influenza Vaccine: 11/2016 Infectious Disease History: Yes Infectious Disease History: Reports: Hx of Known/Suspected MRSA - MRSA R 1st toe Denies: Hx Clostridium Difficile, Hx Hepatitis, Hx Human Immunodeficiency Virus (HIV), Hx Shingles, Hx Tuberculosis, History Other Infectious Disease, Traveled Outside the [place] in Last 30 Days - Family History Known Family History: Positive: Cardiac Disease - father [place] at 42 y/o, Hypertension, Other - Positive for bipolar and depression. Completed suicide to sister. - Social History Occupation: Disabled Lives: With Family Alcohol Use: None Hx Substance Use: No Substance Use Type: Reports: Other Substance Use Comment - Amount & Last Used: METHADONE (noted in chart, not confirmed still prescribed in 11/2016) Hx Tobacco Use: Yes Smoking Status (MU): Heavy Every Day Tobacco Smoker Type: Cigarettes Amount Used/How Often: 1 PPD Length of Time of Smoking/Using Tobacco: 20 YEARS Have You Smoked in the Last Year: Yes Review of Systems Positive: Fever Eyes: Negative ENT: Negative Cardiovascular: Negative Respiratory: Negative Positive: Abdominal Pain, Vomiting, Nausea. Negative: Diarrhea Positive: frequency - decreased Musculoskeletal: Negative Skin: Negative Neurological: Negative Psychological: Normal All Other Systems Reviewed And Are Negative: Yes Physical Exam Triage Information Reviewed: Yes Vital Signs On Initial Exam: Initial Vitals Temp Pulse Resp BP Pulse Ox 97.2 F 103 18 142/94 93 12/25/16 22:10 12/25/16 22:10 12/25/16 22:10 12/25/16 22:10 12/25/16 22:10 Vital Signs Reviewed: Yes Appearance: Positive: Well-Nourished, Ill-Appearing - chronically, Pain Distress Skin: Positive: Warm, Skin Color Reflects Adequate Perfusion, Dry Head/Face: Positive: Normal Head/Face Inspection Eyes: Positive: Other: - prosthetic eye ENT: Positive: Normal ENT inspection Neck: Positive: Supple Respiratory/Lung Sounds: Positive: Clear to Auscultation, Breath Sounds Present Cardiovascular: Positive: RRR, Pulses are Symmetrical in both Upper and Lower Extremities. Negative: Murmur Abdomen Description: Positive: Nontender, Soft, Other: - PD catheter in RLQ. PD catheter site is not tender. Site is bandaged. Bandage is dry and intact. No peritoneal signs, no guarding, no rebound, no CVA tenderness, no masses. Abd distended with PD fluid. Pt unable to do a dialysis exchange to test fluid, since she did not bring supplies to perform an exchange. Bowel Sounds: Positive: Present Musculoskeletal: Positive: Strength/ROM Intact, Other - chronic wound on right foot with bandage. Bandage is dry and intact. Neurological: Positive: Sensory/Motor Intact, Alert, Oriented to Person Place, Time, Facial Symmetry, Speech Normal Psychiatric: Positive: Affect/Mood Appropriate - Ronald Coma Scale Coma Scale Total: 15 Diagnostics - Vital Signs Vital Signs Temp Pulse Resp BP Pulse Ox 12/25/16 22:10 97.2 F 103 18 142/94 93 - Laboratory Lab Results: Lab Results 12/25/16 12/25/16 12/25/16 Range/Units 23:20 23:40 23:40 WBC 17.7 H (3.5-10.8) 10^3/ul RBC 5.12 (4.0-5.4) 10^6/ul Hgb 14.5 (12.0-16.0) g/dl Hct 44 (35-47) % MCV 85 (80-97) fL MCH 28 (27-31) pg MCHC 33 (31-36) g/dl RDW 17 H (10.5-15) % Plt Count 340 (150-450) 10^3/ul MPV 8 (7.4-10.4) um3 Neut % (Auto) 85.4 H (38-83) % Lymph % (Auto) 8.4 L (25-47) % Coleman % (Auto) 4.0 (1-9) % Eos % (Auto) 1.5 (0-6) % Baso % (Auto) 0.7 (0-2) % Absolute Neuts (auto) 15.1 H (1.5-7.7) 10^3/ul Absolute Lymphs (auto) 1.5 (1.0-4.8) 10^3/ul Absolute Monos (auto) 0.7 (0-0.8) 10^3/ul Absolute Eos (auto) 0.3 (0-0.6) 10^3/ul Absolute Basos (auto) 0.1 (0-0.2) 10^3/ul Absolute Nucleated RBC 0.03 10^3/ul Nucleated RBC % 0.2 INR (Anticoag Therapy) 1.02 (0.89-1.11) Sodium Cancelled Potassium Cancelled Chloride Cancelled Carbon Dioxide Cancelled Anion Gap Cancelled BUN Cancelled Creatinine Cancelled Est GFR ( Amer) Cancelled Est GFR (Non-Af Amer) Cancelled BUN/Creatinine Ratio Cancelled Glucose Cancelled Lactic Acid (0.5-2.0) mmol/L Calcium Cancelled Magnesium Cancelled Total Bilirubin Cancelled AST Cancelled ALT Cancelled Alkaline Phosphatase Cancelled Total Creatine Kinase Cancelled Troponin I 0.03 (<0.04) ng/mL C-Reactive Protein Cancelled Total Protein Cancelled Albumin Cancelled Globulin Cancelled Albumin/Globulin Ratio Cancelled Amylase Cancelled Lipase Cancelled 12/25/16 Range/Units 23:40 WBC (3.5-10.8) 10^3/ul RBC (4.0-5.4) 10^6/ul Hgb (12.0-16.0) g/dl Hct (35-47) % MCV (80-97) fL MCH (27-31) pg MCHC (31-36) g/dl RDW (10.5-15) % Plt Count (150-450) 10^3/ul MPV (7.4-10.4) um3 Neut % (Auto) (38-83) % Lymph % (Auto) (25-47) % Coleman % (Auto) (1-9) % Eos % (Auto) (0-6) % Baso % (Auto) (0-2) % Absolute Neuts (auto) (1.5-7.7) 10^3/ul Absolute Lymphs (auto) (1.0-4.8) 10^3/ul Absolute Monos (auto) (0-0.8) 10^3/ul Absolute Eos (auto) (0-0.6) 10^3/ul Absolute Basos (auto) (0-0.2) 10^3/ul Absolute Nucleated RBC 10^3/ul Nucleated RBC % INR (Anticoag Therapy) (0.89-1.11) Sodium Potassium Chloride Carbon Dioxide Anion Gap BUN Creatinine Est GFR ( Amer) Est GFR (Non-Af Amer) BUN/Creatinine Ratio Glucose Lactic Acid 0.8 (0.5-2.0) mmol/L Calcium Magnesium Total Bilirubin AST ALT Alkaline Phosphatase Total Creatine Kinase Troponin I (<0.04) ng/mL C-Reactive Protein Total Protein Albumin Globulin Albumin/Globulin Ratio Amylase Lipase Result Diagrams: 12/25/16 23:40 12/25/16 23:20 Lab Statement: Any lab studies that have been ordered have been reviewed, and results considered in the medical decision making process. Abdominal Pain Fem Course/Dx - Course Course Of Treatment: Reviewed pts medication and allergy lists. High Blood pressure noted. Pt left AMA, eloped without notifyig staff. - Diagnoses Provider Diagnoses: Left against medical advice Discharge - Discharge Plan Condition: Stable Disposition: AGAINST MEDICAL ADVICE The documentation as recorded by the Camilo sexton Benjamin accurately reflects the service I personally performed and the decisions made by Julio Cesar branch Barbara J, MD.
== END | disposition left against medical advice (07) ==
LOC: ED 22:06
DX: R10.9 Unspecified abdominal pain (principal); R11.2 Nausea with vomiting, unspecified; F17.210 Nicotine dependence, cigarettes, uncomplicated
CPT/HCPCS: 36415; 80053; 82140; 82150; 82550; 83605; 83690; 83735; 84484; 85025; 85610; 86140; 87040; 99282

== ENCOUNTER 2017-01-11 09:57 | Emergency (ER) | payer OTHER ==
[2017-01-11] MEDS ORDERED: Aspirin Low Dose CHEW TAB* 81 MG PO ONE (11:22)
[2017-01-11 11:56] LABS: Hematocrit 46 % (35-47); Hemoglobin 15.4 g/dl (12.0-16.0); Mean Corpuscular HGB Conc 33 g/dl (31-36); Mean Corpuscular Hemoglobin 28 pg (27-31); Mean Corpuscular Volume 84 fL (80-97); Mean Platelet Volume 8 um3 (7.4-10.4); Red Blood Count 5.54 10^6/ul (4.0-5.4); Red Cell Distribution Width 17 % (10.5-15); White Blood Count 14.4 10^3/ul (3.5-10.8)
[2017-01-11] MEDS ORDERED: HYDROmorphone INJ* 2 MG/ML CARPUJECT SYRINGE IV SLOW PU ONE ×2 (11:56→15:25)
[2017-01-11] MEDS ORDERED: Ondansetron INJ* 2 MG/ML VIAL IV ONE (11:56)
[2017-01-11 12:09] LABS: Body Fluid Appearance Clear
--- NOTE | 2017-01-11 12:13 | RAD ---
HISTORY: Chest pain COMPARISONS: December 20, 2016 VIEWS: 1: frontal portable view of the chest at 11:50 AM FINDINGS: LINES AND TUBES: None. CARDIOMEDIASTINAL SILHOUETTE: The cardiomediastinal silhouette is normal for portable technique. PLEURA: The costophrenic angles are sharp. No pleural abnormalities are noted. LUNG PARENCHYMA: The lungs are clear. ABDOMEN: The upper abdomen is clear. There is no subphrenic gas. BONES AND SOFT TISSUES: No bone or soft tissue abnormalities are noted. IMPRESSION: NO ACTIVE CARDIOPULMONARY DISEASE.
[2017-01-11 12:16] LABS: Albumin 3.3 g/dL (3.2-5.2); BUN/Creatinine Ratio 5.4 (8-20); Calcium 8.9 mg/dL (8.6-10.3); EGFR African American 16.7 (>60); Globulin 3.2 g/dL (2-4); Total Bilirubin 0.4 mg/dL (0.2-1.0); Total Protein 6.5 g/dL (6.4-8.9)
[2017-01-11 12:17] LABS: Troponin I 0.03 ng/mL (<0.04)
[2017-01-11] MEDS ORDERED: Nitroglycerin TAB 0.4 MG* 0.4 MG TAB SL ONE (12:26)
[2017-01-11 12:29] LABS: Body Fluid WBC 10 /mcL
[2017-01-11 12:43] LABS: Body Fluid Total Cells Counted 2
[2017-01-11] MEDS ORDERED: Iodixanol* (CONTRAST) 320 MG/ML 100 ML SDV IV ONE (12:51)
[2017-01-11 13:05] LABS: Potassium 2.5 mmol/L (3.5-5.0)
[2017-01-11] MEDS ORDERED: Potassium Chlor TAB* 20 MEQ TAB.ER PO ONE (13:16)
--- NOTE | 2017-01-11 14:19 | RAD ---
INDICATION: Chest pain radiating to the back. Lower abdominal pain. Peritoneal dialysis. COMPARISON: Chest radiograph of the same date and December 21, 2016 CT abdomen pelvis. February 08, 2016 CT chest. TECHNIQUE: Multidetector CT images were obtained from the lung apices to the acetabular level with 100 mL Visipaque 320 IV contrast. No oral contrast administered. Multiplanar reformation including with maximum intensity projection and 3-D arterial volume rendering. CHEST REPORT: Patchy regions of relative lucency within both lungs suspicious for air trapping. Mild pleural parenchymal scarring at the LEFT apex. Mild subsegmental atelectasis at the anteromedial basal segment of the LEFT lower lobe and inferior lingula. No suspicious focal pulmonary lesions. Negative for pleural effusion or pneumothorax. Negative for thoracic lymphadenopathy by short axis size criteria. Negative for cardiomegaly or pericardial effusion. Coronary artery calcifications. The thoracic aorta is normal in diameter without appreciable atherosclerotic plaque or dissection. Small accessory ossicle at the tip of the RIGHT transverse process of T8 noted without concern. No thoracic fracture or suspicious focal osseous lesion evident. CHEST IMPRESSION: 1. Suggestion of bilateral regions of air trapping; correlate for obstructive lung disease. 2. Coronary artery calcifications. 3. Negative for aneurysm or dissection of the thoracic aorta. 4. Resolution of mediastinal lymphadenopathy compared with the February 08, 2016 CT chest exam. ABDOMEN PELVIS REPORT: Assessment of the abdominal and pelvic visceral limited due to arterial phase only series. Unremarkable liver, gallbladder, pancreas, spleen. No CT abnormality of the unopacified upper GI, small bowel, medially extending appendix, or incompletely visualized colon. The peritoneal dialysis catheter is coiled at the RIGHT iliac fossa/RIGHT paracolic gutter. No suggestion of a loculated peritoneal fluid collection. Negative for free air or hernias. Normal adrenal glands. No focal renal lesions, conspicuous stones, or hydronephrosis. Unremarkable partially visualized ureters. Unremarkable partially visualized anteverted uterus and adnexal regions. Negative for lymphadenopathy. Mild atherosclerotic plaque of normal diameter abdominal aorta and iliac arteries. Negative for aneurysm or arterial dissection. No hemodynamic significant aortoiliac stenosis evident. No evidence for stenosis of the celiac axis, superior mesenteric artery, or solitary LEFT renal artery. Reference the coronal reformatted series there is suggestion of approximate 60% short segment stenosis at the proximal segment of the solitary RIGHT renal artery. The RIGHT greater than LEFT renal artery demonstrates a mildly beaded appearance suspicious for potential fibromuscular dysplasia. Normal opacification of the inferior mesenteric artery. Negative for suspicious osseous lesions. ABDOMEN PELVIS IMPRESSION: 1. Negative for aneurysm or dissection of the abdominal aorta. 2. Suggestion of approximate 60% short segment stenosis at the proximal segment of the solitary RIGHT renal artery. Additionally the RIGHT greater than LEFT renal artery demonstrates a mildly beaded appearance suspicious for potential fibromuscular dysplasia.
[2017-01-11] MEDS ORDERED: Methadone TAB* 5 MG PO PRN (15:32)
[2017-01-11 16:18] VITALS: BP 156/82
--- NOTE | 2017-01-11 19:00 | ED ---
Joes D Palacio Angela, scribed for Nigel Zayas MD on 01/11/17 at 1239 . Abdominal Pain/Female - HPI Summary HPI Summary: This pt is a 36 y/o female presenting to [facility] c/o intermittent left sided abdominal pain that began since the end of September. Pt states associated symptoms of nausea, vomiting, dizziness, and light-headedness. She describes vomiting as "bright white." She denies any diarrhea. Additionally pt reports she has chest pain and SOB that began today at about 0800. Pt notes her pain goes across her chest from left to right. Her chest pain radiates to between her shoulder blades, which has been constant today. Pt denies back pain, arm pain. She notes she makes urine but denies any history of urine infection. Pt states she actually has a yeast infection now. Pt does the PD catheter every day. PCP is Dr. Solis. Pt has had stents in her legs. PMHx includes diabetes and 2 cardiac catheterizations. The most recent cardiac cath was in March and notes she had 3 blocked arteries. She also reports she had an infection in her lungs and heart in January and was in the ICU for 1 week. - History of Current Complaint Chief Complaint: EDChestPainROMI Stated Complaint: VOMITING, NAUSEA Time Seen by Provider: 01/11/17 11:21 Hx Obtained From: Patient Hx Last Menstrual Period: June 2016 Onset/Duration: Lasting Weeks, Still Present Timing: Weeks Severity Currently: Severe Pain Intensity: 8 Pain Scale Used: 0-10 Numeric Location: Other - left sided abd Associated Signs and Symptoms: Positive: Chest Pain, Nausea, Vomiting, Other: - pain between shoulder blades, SOB.. Negative: Diarrhea Allergies/Adverse Reactions: Allergies Allergy/AdvReac Type Severity Reaction Status Date / Time Heparin Allergy Intermediate pt states Verified 12/04/16 06:16 it gave her a blood clot Niacin Allergy Mild Hives Verified 12/04/16 06:16 Ropinirole [From Requip] Allergy Mild Hives Verified 12/04/16 06:16 Amoxicillin [From Augmentin] AdvReac Mild "Doesn't Verified 12/04/16 06:16 work" Clavulanic Acid AdvReac Mild "Doesn't Verified 12/04/16 06:16 [From Augmentin] work" Codeine AdvReac Mild Nausea And Verified 12/04/16 06:16 Vomiting Erythromycin AdvReac Mild "DOESN'T Verified 12/04/16 06:16 WORK" Metronidazole [From Flagyl] AdvReac Mild Nausea And Verified 12/04/16 06:16 Vomiting Morphine AdvReac Mild "Doesn't Verified 12/04/16 06:16 work" Sulfamethoxazole AdvReac Mild Nausea And Verified 12/04/16 06:16 w/Trimethoprim Vomiting [From Bactrim] plastic tape Allergy Mild Blisters Uncoded 12/04/16 06:16 Home Medications: Home Medications Gabapentin CAP(*) [Neurontin 100 mg CAP(*)] 200 mg PO TID 01/11/17 [History Confirmed 01/11/17] Eagle-3 Fatty Acids (Nf) [Fish Oil (NF)] 4,000 mg PO DAILY 01/11/17 [History Confirmed 01/11/17] Ondansetron ODT TAB* [Zofran 4 MG Odt TAB*] 4 mg PO ONCE PRN 01/11/17 [History Confirmed 01/11/17] Promethazine TAB* [Phenergan TAB*] 25 mg PO Q8H PRN 01/11/17 [History Confirmed 01/11/17] Sertraline* [Zoloft*] 25 mg PO DAILY 01/11/17 [History Confirmed 01/11/17] Warfarin TAB(*) [Coumadin TAB(*)] 7.5 mg PO .[id number] 01/11/17 [History Confirmed 01/11/17] Warfarin TAB(*) [Coumadin TAB(*)] 10 mg PO .MOFR 01/11/17 [History Confirmed ] traZODone TAB* [Desyrel TAB*] 50 mg PO BEDTIME 01/11/17 [History Confirmed 01/11] PMH/Surg Hx/FS Hx/Imm Hx Endocrine/Hematology History: Reports: Hx Anticoagulant Therapy - Aspirin., Hx Blood Transfusions, Hx Diabetes - insulin dependent, Hx Thyroid Disease - nodule biopsied, normal, Hx Anemia - hx of - reports had tranfusion in 2013 after mi Cardiovascular History: Reports: Hx Angina, Hx Cardiac Arrest - in 2013 with CPR, Hx Cardiomegaly, Hx Coronary Artery Disease, Hx Hypercholesterolemia, Hx Hypertension, Hx Myocardial Infarction, Other Cardiovascular Problems/ Disorders - hyperlipidemia, CAD Denies: Hx Congestive Heart Failure, Hx Deep Vein Thrombosis, Hx Pacemaker/ ICD, Hx Valvular Heart Disease Respiratory History: Reports: Hx Asthma, Hx Chronic Obstructive Pulmonary Disease (COPD) - smoker, Hx Sleep Apnea - pt reports thinks, but no official testing done yet, Other Respiratory Problems/Disorders - acute respipatory failure with hypoxia - jan 2016 Denies: Hx Lung Cancer, Hx Pneumonia, Hx Pulmonary Embolism GI History: Reports: Hx Gastroesophageal Reflux Disease, Other GI Disorders - GASTROPARESIS - TAKING OMEPRAZOLE, reglan and zofran Denies: Hx Gall Bladder Disease, Hx Gastrointestinal Bleed, Hx Ulcer, Hx Urosepsis History: Reports: Hx Acute Renal Failure, Hx Chronic Renal Failure - ESRD on PD, Hx Dialysis - PERITONEAL, Hx Kidney Stones, Hx Renal Disease - ESRD on home peritoneal dialysis , Other Problems/Disorders Musculoskeletal History: Reports: Hx Arthritis - back, hips, Hx Back Problems - Sciatica and Herniated L3 disk, Other Musculoskeletal History - partial amputation of toes/foot Sensory History: Reports: Hx Eye Prosthesis - left, 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, Hx Vision Problem Denies: Hx Contacts or Glasses, Hx Hearing Aid Opthamlomology History: Reports: Hx Eye Prosthesis - left, 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, Hx Vision Problem Denies: Hx Contacts or Glasses Neurological History: Reports: Other Neuro Impairments/Disorders - neuropathy Denies: Hx Transient Ischemic Attacks (TIA) Psychiatric History: Reports: Hx Anxiety, Hx Depression, Hx Bipolar Disorder Denies: Hx Eating Disorder, Hx Panic Disorder, Hx Schizophrenia, Hx of Violent Episodes Against Others - Cancer History Cancer Type, 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 MELANOMA REMOVED FROM VULVA 2012 (PROCEDURE DONE 4X);. CARDIAC CATH 2013 - NO STENTS;. LEFT WRIST FISTULA PLACEMENT ([facility]) 2013;. HEMODIALYSIS CATH RIGHT CHEST WALL 2013;. PERITONEAL DIALYSIS CATH 03/2014;. CHEST WALL CATH REMOVAL 08/2015 [facility];. RIGHT GREAT TOE AMPUTATION, [facility] 05/2015;. PLACEMENT RIGHT JUGULAR TESIO HEMODIALYSIS CATHETER [facility] 10/22/2015;. REMOVAL OF JUGULAR CATH - OCT 2015. CARDIAC CATH - stentsx2 right leg. PARTIAL AMPUTATION RIGHT TOES 06/2016 Hx Anesthesia Reactions: No - Immunization History Date of Tetanus Vaccine: UTD Date of Influenza Vaccine: 11/2016 Infectious Disease History: No Infectious Disease History: Reports: Hx of Known/Suspected MRSA - MRSA R 1st toe Denies: Hx Clostridium Difficile, Hx Hepatitis, Hx Human Immunodeficiency Virus (HIV), Hx Shingles, Hx Tuberculosis, History Other Infectious Disease, Traveled Outside the [place] in Last 30 Days - Family History Known Family History: Positive: Cardiac Disease - father [place] at 42 y/o, Hypertension, Other - Positive for bipolar and depression. Completed suicide to sister. - Social History Alcohol Use: None Hx Substance Use: No Substance Use Type: Reports: Other Substance Use Comment - Amount & Last Used: METHADONE (noted in chart, not confirmed still prescribed in 11/2016) Hx Tobacco Use: Yes Smoking Status (MU): Heavy Every Day Tobacco Smoker Type: Cigarettes Amount Used/How Often: 1 PPD Length of Time of Smoking/Using Tobacco: 20 YEARS Have You Smoked in the Last Year: Yes Review of Systems Negative: Fever, Chills Negative: Erythema Negative: Sore Throat Positive: Chest Pain Positive: Shortness Of Breath. Negative: Cough Positive: Abdominal Pain, Vomiting, Nausea. Negative: Diarrhea Genitourinary: Other - yeast infection Negative: dysuria, hematuria, other - urinary infection Musculoskeletal: Other - pain between shoulder blades Negative: Myalgia, Edema - leg swelling Negative: Rash Neurological: Other - dizziness, light-headedness All Other Systems Reviewed And Are Negative: Yes Physical Exam - Summary Physical Exam Summary: Constitutional: Well-developed, Well-nourished, Alert. (-) Distressed Skin: Warm, Dry HENT: Normocephalic; Atraumatic Eyes: Conjunctiva normal Neck: Musculoskeletal ROM normal neck. (-) JVD, (-) Stridor, (-) Tracheal deviation Cardio: Rhythm regular, rate normal, Heart sounds normal; Intact distal pulses; The pedal pulses are 2+ and symmetric. Radial pulses are 2+ and symmetric. (-) Murmur Pulmonary/Chest wall: Effort normal. (-) Respiratory distress, (-) Wheezes, (-) Rales Abd: Soft, (-) Distension, (-) Guarding, (-) Rebound. There is tenderness on the left side of the umbilicus. No palpable hernia. Obese abdomen. Musculoskeletal: (-) Edema Lymph: (-) Cervical adenopathy Neuro: Alert, Oriented x3 Psych: Mood and affect Normal Triage Information Reviewed: Yes Vital Signs On Initial Exam: Initial Vitals Temp Pulse Resp BP Pulse Ox 97 F 112 17 150/112 94 01/11/17 10:17 01/11/17 10:17 01/11/17 10:17 01/11/17 10:17 01/11/17 10:17 Vital Signs Reviewed: Yes - Dickson Coma Scale Coma Scale Total: 15 Diagnostics - Vital Signs Vital Signs Temp Pulse Resp BP Pulse Ox 01/11/17 12:27 20 01/11/17 12:00 103 93 01/11/17 11:40 103 91 01/11/17 11:39 195/112 01/11/17 10:17 97 F 112 17 150/112 94 - Laboratory Lab Results: Lab Results 01/11/17 01/11/17 01/11/17 Range/Units 11:25 11:44 11:44 WBC 14.4 H (3.5-10.8) 10^3/ul RBC 5.54 H (4.0-5.4) 10^6/ul Hgb 15.4 (12.0-16.0) g/dl Hct 46 (35-47) % MCV 84 (80-97) fL MCH 28 (27-31) pg MCHC 33 (31-36) g/dl RDW 17 H (10.5-15) % Plt Count 316 (150-450) 10^3/ul MPV 8 (7.4-10.4) um3 Neut % (Auto) 86.2 H (38-83) % Lymph % (Auto) 7.5 L (25-47) % Davi[place] % (Auto) 4.2 (1-9) % Eos % (Auto) 1.5 (0-6) % Baso % (Auto) 0.6 (0-2) % Absolute Neuts (auto) 12.4 H (1.5-7.7) 10^3/ul Absolute Lymphs (auto) 1.1 (1.0-4.8) 10^3/ul Absolute Monos (auto) 0.6 (0-0.8) 10^3/ul Absolute Eos (auto) 0.2 (0-0.6) 10^3/ul Absolute Basos (auto) 0.1 (0-0.2) 10^3/ul Absolute Nucleated RBC 0.04 10^3/ul Nucleated RBC % 0.3 D-Dimer, Quantitative (Less Than 230) ng/mL Sodium 130 L (133-145) mmol/L Potassium Pending Chloride 93 L (101-111) mmol/L Carbon Dioxide 28 (22-32) mmol/L Anion Gap Pending BUN 21 (6-24) mg/dL Creatinine 3.90 H (0.51-0.95) mg/dL Est GFR ( Amer) 16.7 (>60) Est GFR (Non-Af Amer) 13.0 (>60) BUN/Creatinine Ratio 5.4 L (8-20) Glucose 383 H (70-100) mg/dL Lactic Acid (0.5-2.0) mmol/L Calcium 8.9 (8.6-10.3) mg/dL Total Bilirubin 0.40 (0.2-1.0) mg/dL AST 8 L (13-39) U/L ALT 7 (7-52) U/L Alkaline Phosphatase 106 H (34-104) U/L Troponin I 0.03 (<0.04) ng/mL Total Protein 6.5 (6.4-8.9) g/dL Albumin 3.3 (3.2-5.2) g/dL Globulin 3.2 (2-4) g/dL Albumin/Globulin Ratio 1.0 (1-3) Fluid Source Peritonial fluid Fluid Volume Pending Fluid Color Pending Fluid Appearance Pending Fluid WBC Pending Fluid RBC Pending Fluid Tot Cell Count Pending Fluid Neutrophils Pending Fluid Cell Count Rvw By Pending 01/11/17 01/11/17 Range/Units 11:44 11:44 WBC (3.5-10.8) 10^3/ul RBC (4.0-5.4) 10^6/ul Hgb (12.0-16.0) g/dl Hct (35-47) % MCV (80-97) fL MCH (27-31) pg MCHC (31-36) g/dl RDW (10.5-15) % Plt Count (150-450) 10^3/ul MPV (7.4-10.4) um3 Neut % (Auto) (38-83) % Lymph % (Auto) (25-47) % [place] % (Auto) (1-9) % Eos % (Auto) (0-6) % Baso % (Auto) (0-2) % Absolute Neuts (auto) (1.5-7.7) 10^3/ul Absolute Lymphs (auto) (1.0-4.8) 10^3/ul Absolute Monos (auto) (0-0.8) 10^3/ul Absolute Eos (auto) (0-0.6) 10^3/ul Absolute Basos (auto) (0-0.2) 10^3/ul Absolute Nucleated RBC 10^3/ul Nucleated RBC % D-Dimer, Quantitative < 200 (Less Than 230) ng/mL Sodium (133-145) mmol/L Potassium Chloride (101-111) mmol/L Carbon Dioxide (22-32) mmol/L Anion Gap BUN (6-24) mg/dL Creatinine (0.51-0.95) mg/dL Est GFR ( Amer) (>60) Est GFR (Non-Af Amer) (>60) BUN/Creatinine Ratio (8-20) Glucose (70-100) mg/dL Lactic Acid 1.1 (0.5-2.0) mmol/L Calcium (8.6-10.3) mg/dL Total Bilirubin (0.2-1.0) mg/dL AST (13-39) U/L ALT (7-52) U/L Alkaline Phosphatase (34-104) U/L Troponin I (<0.04) ng/mL Total Protein (6.4-8.9) g/dL Albumin (3.2-5.2) g/dL Globulin (2-4) g/dL Albumin/Globulin Ratio (1-3) Fluid Source Fluid Volume Fluid Color Fluid Appearance Fluid WBC Fluid RBC Fluid Tot Cell Count Fluid Neutrophils Fluid Cell Count Rvw By Result Diagrams: 01/11/17 11:44 01/11/17 11:44 Lab Statement: Any lab studies that have been ordered have been reviewed, and results considered in the medical decision making process. - Radiology Chest XR Xray Interpretation: No Acute Changes - IMPRESSION: No active cardiopulmonary disease. ED physician has reviewed this radiology report and agrees. Radiology Interpretation Completed By: Radiologist - CT CTA chest/abdomen/pelvis CT Interpretation: Positive (See Comments) - IMPRESSION: 1. Negative for aneurysm or dissection of the abdominal aorta. 2. Suggestion of approximate 60% short segment stenosis at the proximal segment of the solitary RIGHT renal artery. Additionally the RIGHT greater than LEFT renal artery demonstrates a mildly beaded appearance suspicious for potential fibromuscular dysplasia. ED physician has reviewed this radiology report and agrees. CT Interpretation Completed By: Radiologist - EKG 1202 Cardiac Rate: NL EKG Rhythm: Sinus Rhythm - at 96 bpm EKG Interpretation: No STEMI. 1353 Cardiac Rate: NL EKG Rhythm: Sinus Rhythm - at 91 bpm EKG Interpretation: No STEMI. Improved from prior EKG done today at 12:02 Re-Evaluation - Re-Evaluation First Eval Re-Evaluation Time: 15:36 Comment: Pt agrees with the plan, Dr. Cm will consult with the pt. Abdominal Pain Fem Course/Dx - Course Course Of Treatment: This pt is a 36 y/o female presenting to [facility] c/o intermittent left sided abdominal pain that began since the end of September. Pt states associated symptoms of nausea, vomiting, dizziness, and light- headedness. She describes vomiting as "bright white." She denies any diarrhea. Additionally pt reports she has chest pain and SOB that began today at about 0800. Pt notes her pain goes across her chest from left to right. Her chest pain radiates to between her shoulder blades, which has been constant today. Pt denies back pain, arm pain. She notes she makes urine but denies any history of urine infection. Pt states she actually has a yeast infection now. Pt does the PD catheter every day. PMHx includes diabetes. Lab work, EKG, and CTA chest/ abdomen/pelvis were obtained. Labs show WBC of 14.4, sodium of 130, potassium of 2.5, creatinine of 3.90, glucose of 383, AST of 8. First troponin is 0.03 and second troponin is 0.03. Chest XR is negative. First EKG shows NSR at 96 bpm. Second EKG reveals an improved EKG from prior. CTA chest/abd/pelvis shows 1. Negative for aneurysm or dissection of the abdominal aorta. 2. Suggestion of approximate 60% short segment stenosis at the proximal segment of the solitary RIGHT renal artery. Additionally the RIGHT greater than LEFT renal artery demonstrates a mildly beaded appearance suspicious for potential fibromuscular dysplasia. In the ED course, the pt was given Aspirin, Dilaudid, nitroglycerin , Zofran. I spoke with Dr. Marrufo about the pts hypokalemia. He recommends to replace with oral potassium. Pt was given potassium chloride. I discussed the pt 's case with Dr. Cm, who will consult with the pt regarding her chest pain in the setting of coronary artery disease, diabetes, renal failure, dialysis. Per nurse's note, pt was requesting pain medication. Pt was offered methadone per orders. Pt stated she wants dilaudid and that she "can take methadone at home." Pt was made aware that this is the chosen pain medication by Dr Cm. Pt then stated "I'm signing out." Pt signed out AMA. - Diagnoses Provider Diagnoses: Chest pain, unspecified, Left against medical advice - Provider Notifications Discussed Care Of Patient With: Luis Marrufo Time Discussed With Above Provider: 13:14 Instructed by Provider To: Other - I discussed pt care and pt's hypokalemia with Dr. Marrufo. He recommends replacing with oral potassium. [15:25] I discussed pt care with Dr. Cm, who will see the pt in the ED. Discharge - Discharge Plan Condition: Stable Disposition: AGAINST MEDICAL ADVICE Referrals: Aishwarya Solis MD [Primary Care Provider] - The documentation as recorded by the Jose D sexton Angela accurately reflects the service I personally performed and the decisions made by me, Nigel Zayas MD.
== END 2017-01-11 16:26 | disposition left against medical advice (07) ==
LOC: ED 09:57
DX: R07.9 Chest pain, unspecified (principal); F17.210 Nicotine dependence, cigarettes, uncomplicated; F32.9 Major depressive disorder, single episode, unspecified; F41.9 Anxiety disorder, unspecified; Z53.21 Procedure and treatment not carried out due to patient leaving prior to being seen by health care provider; Z85.820 Personal history of malignant melanoma of skin; H54.8 Legal blindness, as defined in USA; Z79.82 Long term (current) use of aspirin; K21.9 Gastro-esophageal reflux disease without esophagitis; Z86.74 Personal history of sudden cardiac arrest; I25.10 Atherosclerotic heart disease of native coronary artery without angina pectoris; E78.00 Pure hypercholesterolemia, unspecified; I10 Essential (primary) hypertension; I25.2 Old myocardial infarction; E78.5 Hyperlipidemia, unspecified; J44.9 Chronic obstructive pulmonary disease, unspecified; Z79.01 Long term (current) use of anticoagulants
CPT/HCPCS: 36415; 71010; 71275; 74174; 80053; 83605; 84484; 85025; 85379; 85610; 85730; 87040; 87205; 89051; 93005; 96374; 96375; 99283; A9270-GY; J1170; J2405; Q9967

== ENCOUNTER 2017-01-31 19:06 | Emergency (ER) | payer OTHER ==
[2017-01-31 19:56] VITALS: BP 174/93
[2017-01-31] MEDS ORDERED: Albuterol/Ipratropium NEB.SOL* Albuterol 2.5 MG/Ipratropium 0.5 MG 3 ML INH ONE (20:12)
--- NOTE | 2017-01-31 20:46 | RAD ---
Indication: Cough, hypoxia. 2 views of the chest including dual energy PA views demonstrates no mediastinal shift. Atelectasis in the right midlung field. There may BE early infiltrate in the left base. When compared to previous exam of January 11, 2017 the findings are new. IMPRESSION: Atelectasis right midlung field. Early pneumonia in the left lung base.
--- NOTE | 2017-01-31 21:01 | UC ---
Respiratory Complaint HPI - HPI Summary HPI Summary: PRESENTS WITH TWO DAYS OF FEVER, WHEEZING, COUGH, CONGESTION. PAST MEDICAL HISTORY SIGNIFICANT FOR: ESRD, DM, DC, OBESITY. PRESENTS TO URGENT CARE WITH TACHYPNEA, HYPOXIA (87 ON ROOM AIR), FEVER (99.6F) TACYCARDIA (116). 1PPD SMOKER. NO PULMONOGIST OR KNOWN RESPIRATORY DISEASE. - History of Current Complaint Chief Complaint: UCRespiratory Stated Complaint: RESP Time Seen by Provider: 01/31/17 20:02 Hx Obtained From: Patient, Family/Psychological Assistant Hx Last Menstrual Period: NOW Onset/Duration: Gradual Onset, Lasting Days, Still Present, Worse Since - TODAY Timing: Intermittent Episodes Severity Initially: Moderate Severity Currently: Moderate Character: Cough: Productive Aggravating Factors: Exertion, Deep Breaths Alleviating Factors: Bronchodilator Associated Signs And Symptoms: Positive: Dyspnea, Fever, Wheezing, Nasal Congestion, Hoarseness, Sinus Discomfort - Risk Factors Pulmonary Embolism Risk Factors: Negative Cardiac Risk Factors: Negative Pseudomonas Risk Factors: Negative Tuberculosis Risk Factors: Negative - Allergies/Home Medications Allergies/Adverse Reactions: Allergies Allergy/AdvReac Type Severity Reaction Status Date / Time Heparin Allergy Intermediate pt states Verified 01/31/17 19:56 it gave her a blood clot Niacin Allergy Mild Hives Verified 01/31/17 19:56 Ropinirole [From Requip] Allergy Mild Hives Verified 01/31/17 19:56 Amoxicillin [From Augmentin] AdvReac Mild "Doesn't Verified 01/31/17 19:56 work" Clavulanic Acid AdvReac Mild "Doesn't Verified 01/31/17 19:56 [From Augmentin] work" Codeine AdvReac Mild Nausea And Verified 01/31/17 19:56 Vomiting Erythromycin AdvReac Mild "DOESN'T Verified 01/31/17 19:56 WORK" Metronidazole [From Flagyl] AdvReac Mild Nausea And Verified 01/31/17 19:56 Vomiting Morphine AdvReac Mild "Doesn't Verified 01/31/17 19:56 work" Sulfamethoxazole AdvReac Mild Nausea And Verified 01/31/17 19:56 w/Trimethoprim Vomiting [From Bactrim] plastic tape Allergy Mild Blisters Uncoded 12/04/16 06:16 Home Medications: Home Medications Acetaminophen [Tylenol] 650 mg PO PRN 01/31/17 [History] Albuterol 2.5MG/3ML (0.083%)* [Ventolin 2.5 MG/3 ML NEB.GRETEL*] PRN 01/31/17 [ History Confirmed 01/31/17] guaiFENesin ER TAB [Mucinex*] 600 mg PO BID 01/31/17 [History Confirmed 01/31/17 ] PMH/Surg Hx/FS Hx/Imm Hx Previously Healthy: No - DM, ESRD, DC WITH CARDIAC CATH Cardiovascular History: Cardiac Disease Respiratory History: Asthma Cancer History: Other - MELANOMA VULVA Other Cancer History: VULVA MELANOMA Other History Of: Anticoagulant Therapy - Aspirin. Negative For: HIV, Hepatitis B, Hepatitis C - Surgical History Surgical History: Yes Surgery Procedure, Year, and Place: LEFT EYE REMOVED 2011 - HAS PROSTHETIC EYE ( ORBITS DONE 06/[address] LIGIA COY TO SCAN IN MRI) ;. MELANOMA REMOVED FROM VULVA 2012 (PROCEDURE DONE 4X);. CARDIAC CATH 2013 - NO STENTS;. LEFT WRIST FISTULA PLACEMENT ([facility]) 2013;. HEMODIALYSIS CATH RIGHT CHEST WALL 2013;. PERITONEAL DIALYSIS CATH 03/2014;. CHEST WALL CATH REMOVAL 08/2015 [facility];. RIGHT GREAT TOE AMPUTATION, [facility] [place] [facility] 05/2015;. PLACEMENT RIGHT JUGULAR TESIO HEMODIALYSIS CATHETER [facility] [place] 10/22/2015;. REMOVAL OF JUGULAR CATH - OCT 2015. CARDIAC CATH - stentsx2 right leg. PARTIAL AMPUTATION RIGHT TOES 06/2016. RIGHT TOES ALL REMOVED - Family History Known Family History: Positive: Cardiac Disease - father [place] at 42 y/o, Hypertension, Other - Positive for bipolar and depression. Completed suicide to sister. - Social History Occupation: Disabled Lives: With Family Alcohol Use: None Substance Use Type: None, Other Substance Use Comment - Amount & Last Used: METHADONE (noted in chart, not confirmed still prescribed in 11/2016) Smoking Status (MU): Current Every Day Smoker Type: Cigarettes Amount Used/How Often: 1 PPD Length of Time of Smoking/Using Tobacco: 20 YEARS Have You Smoked in the Last Year: Yes Household Exposure Type: Cigarettes Cessation Counseling: Patient Advised to Stop - Immunization History Most Recent Influenza Vaccination: Fall 2015 Most Recent Tetanus Shot: 2013 Most Recent Pneumonia Vaccination: per pt: sometime in 2013 Review of Systems Constitutional: Fever, Chills, Fatigue Skin: Negative Eyes: Negative ENT: Sinus Congestion Respiratory: Cough Cardiovascular: Negative Gastrointestinal: Negative Genitourinary: Negative Motor: Negative Neurovascular: Negative Musculoskeletal: Negative Neurological: Negative Psychological: Negative Is Patient Immunocompromised?: No All Other Systems Reviewed And Are Negative: Yes Physical Exam Triage Information Reviewed: Yes Appearance: No Pain Distress, Well-Nourished, Ill-Appearing, Obese Vital Signs: Initial Vital Signs Temp 99.6 F 01/31/17 19:50 Pulse 116 01/31/17 19:50 Resp 18 01/31/17 19:50 BP 174/93 01/31/17 19:50 Pulse Ox 89 01/31/17 19:50 Vital Signs Reviewed: Yes Eye Exam: Normal ENT: Positive: Normal ENT inspection, Hearing grossly normal, Pharynx normal, Hoarse voice Dental Exam: Normal Neck exam: Normal Neck: Positive: Supple, Nontender, No Lymphadenopathy Respiratory Exam: Other - COUGH Respiratory: Positive: Chest non-tender, Lungs clear, Normal breath sounds, No respiratory distress, No accessory muscle use, Rhonchi, Wheezing Cardiovascular Exam: Normal Cardiovascular: Positive: RRR, No Murmur, Pulses Normal, Brisk Capillary Refill Abdominal Exam: Normal Abdomen Description: Positive: Nontender, No Organomegaly Musculoskeletal Exam: Normal Musculoskeletal: Positive: Strength Intact, ROM Intact Neurological Exam: Normal Psychological Exam: Normal Skin Exam: Normal UC Diagnostic Evaluation - Laboratory O2 Sat by Pulse Oximetry: 87 - Radiology Xray Interpretation: Positive (See Comments) - Interpreted by radiologist, reviewed by MARY. Interpretation : atelectasis right midlung; early left lower lobe pneumonia Radiology Interpretation Completed By: Radiologist Respiratory Course/Dx - Course Course Of Treatment: PATIENT ADVISED TO SEEK HIGHER LEVEL OF CARE AT EMERGENCY DEPARTMENT. PATIENT REFUSED THE OFFER OF AMBULANCE TRANSPORT AND ELECTED TO GO TO THE EMERGENCY DEPARTMENT BY PRIVATE CAR. - Differential Dx/Diagnosis Differential Diagnosis/HQI/PQRI: Exacerbation Of COPD Provider Diagnoses: LEFT LOWER LOBE PNEUMONIA; HYPOXIA; TACHYPNEA; TACHYCARDIA; FEVER; RIGHT MID LUNG ATALECTASIS; ESRD; DIABETES; HISTORY OF DC; TOBACCO ABUSE ; ASTHMA; OBESITY Discharge - Discharge Plan Condition: Stable Disposition: OTHER Discharge Disposition Comment: ADVISED TO GO TO ED, REFUSED AMBULANCE Patient Education Materials: Type 2 Diabetes in Adults (ED), Bacterial Pneumonia (ED), Hypoxia (ED), Tachycardia (ED) Referrals: Aishwarya Solis MD [Primary Care Provider] - Additional Instructions: YOU HAVE REFUSED THE OFFER OF AMBULANCE TRANSPORT AND HAVE ELECTED TO GO TO THE EMERGENCY DEPARTMENT BY PRIVATE CAR. YOU ARE ADVISED TO PROCEED SAFELY, BUT DIRECTLY TO THE EMERGENCY DEPARTMENT FOR CONTINUED EVALUATION.
== END 2017-01-31 21:02 ==
LOC: UCEAST 19:06
DX: J18.9 Pneumonia, unspecified organism (principal); R09.02 Hypoxemia; R06.82 Tachypnea, not elsewhere classified; R00.0 Tachycardia, unspecified; R50.9 Fever, unspecified; J98.11 Atelectasis; E11.22 Type 2 diabetes mellitus with diabetic chronic kidney disease; N18.6 End stage renal disease; I25.2 Old myocardial infarction; Z95.5 Presence of coronary angioplasty implant and graft; Z79.82 Long term (current) use of aspirin; J45.909 Unspecified asthma, uncomplicated; F17.210 Nicotine dependence, cigarettes, uncomplicated
CPT/HCPCS: 71020; 87502; 99213; A9270-GY; G0463

== ENCOUNTER 2017-01-31 22:12 | Inpatient (IN) | payer OTHER ==
[2017-01-31] MEDS ORDERED: Albuterol 2.5 MG/3 ML NEB.SOL* (0.083%) INH ONE (22:52)
[2017-01-31] MEDS ORDERED: Levofloxacin 750 MG IVPREMIX(* 750 MG/150 ML BAG IVPB ONE (22:53)
[2017-01-31] MEDS ORDERED: Cefepime(*) 2 GM in NS 0.9% 50 ML* 50 ML IVPB ONE (22:53)
[2017-01-31 23:19] LABS: Hematocrit 40 % (35-47); Hemoglobin 12.4 g/dl (12.0-16.0); Mean Corpuscular HGB Conc 31 g/dl (31-36); Mean Corpuscular Hemoglobin 28 pg (27-31); Mean Corpuscular Volume 90 fL (80-97); Mean Platelet Volume 9 um3 (7.4-10.4); Red Blood Count 4.41 10^6/ul (4.0-5.4); Red Cell Distribution Width 20 % (10.5-15); White Blood Count 16.9 10^3/ul (3.5-10.8)
[2017-01-31 23:35] LABS: Albumin 2.9 g/dL (3.2-5.2); BUN/Creatinine Ratio 8.3 (8-20); EGFR African American 15.7 (>60); EGFR Non-African American 12.2 (>60); Globulin 3.3 g/dL (2-4); Potassium 4.2 mmol/L (3.5-5.0); Total Bilirubin 0.2 mg/dL (0.2-1.0); Total Protein 6.2 g/dL (6.4-8.9)
[2017-02-01] MEDS ORDERED: Insulin REGULAR(*) 1 UNITS UNIT IV PUSH ONE (00:05)
[2017-02-01] MEDS ORDERED: NS 0.9% 50 ML* 50 ML ONE (00:09)
[2017-02-01] MEDS ORDERED: Levofloxacin 750 MG IVPREMIX(* 750 MG/150 ML BAG ONE (00:22)
[2017-02-01] MEDS ORDERED: Acetaminophen TAB* 325 MG PO PRN (00:56)
[2017-02-01] MEDS ORDERED: CMCS: Melatonin (NF) 3 MG TAB PO PRN (00:57)
[2017-02-01] MEDS ORDERED: Insulin REGULAR(*) 100 UNITS in NS 0.9% 100 ML* 100 ML IVPB SCH (01:00)
[2017-02-01] MEDS ORDERED: NS 0.9% 1000 ML* 1,000 ML IV SCH ×2 (01:15→02:38)
[2017-02-01 01:19] LABS: Direct Bilirubin 0.1 mg/dL (0.03-0.18); Indirect Bilirubin 0.1 mg/dL (0.3-1.0)
--- NOTE | 2017-02-01 01:20 | HP ---
H&P (Free Text) History and Physical: PCP: Yaneth Solis MD Date/Time of Evaluation: 02/01/2017 0100 CC: SOB HPI: Mrs Wright is a 36YO insulin requiring diabetic with gastroparesis, PAOD, CKD stg 4 well known to the Hospitalist service who is highly aggressive and hostile during this H&P likely 2nd AMS 2nd hyperglycemia/HONK and early septic encephalopathy. She reports 1 week of progressive SOB, cough, chest pain with cough, subjective F/C, and malaise. She presented to urgent care today where a CXR revealed an early LLL pneumonia and referral to [facility] was made. After admission while getting settled into the ICU as she requires an insulin GTT, she becomes agitated at the H&P questioning, starts yelling that I am calling her a liar as I have to rephrase questions due to her answers being incongruent. She then insists on leaving AMA and was informed that given her sepsis, pneumonia, and severe co-morbidities that without urgent treatment she could rapidly decompensate and . With this information, she calms down to a degree, agrees to stay, and acquiesces to an exam. She has a male friend present who despite Margaux's claim of taking her insulin as prescribed states that this is not true. He states the last time she had any insulin was Saturday evening. PMedHx DM2, insulin requiring, poorly controlled 2nd non-adherence with: : gastroparesis : peripheral microvasculopathy & R transmetatarsal amputation : diabetic ESRD-PD : peripheral neuropathy CAD PAOD s/p stent RLE HTN HLD asthma tobacco use disorder GERD depression anxiety Ambulatory Orders Nursing to reconcile. Insulin Aspart [Novolog] 0 - 100 units SUBCUT AC PRN 10/20/15 Omeprazole CAP* [Prilosec CAP* 20 MG] 40 mg PO QPM 10/20/15 Albuterol HFA INHALER* [Ventolin HFA Inhaler*] 2 puff INH Q6H PRN 05/17/16 Insulin GLARGINE(*) [Lantus(*)] 60 units SUBCUT BEDTIME 05/17/16 amLODIPine TAB* [Norvasc 5 mg TAB*] 10 mg PO QPM 05/17/16 Aspirin Low Dose CHEW TAB* [Aspirin Low Dose TAB*] 81 mg PO DAILY tab.chew Methadone TAB* [Dolophine TAB*] 5 mg PO Q6H PRN MDD 20mg 10/02/16 Gabapentin CAP(*) [Neurontin 100 mg CAP(*)] 200 mg PO QPM 01/11/17 Promethazine TAB* [Phenergan TAB*] 25 mg PO Q8H PRN 01/11/17 Sertraline* [Zoloft*] 25 mg PO DAILY 01/11/17 Warfarin TAB(*) [Coumadin TAB(*)] 7.5 mg PO .TUWETHSASU 01/11/17 Warfarin TAB(*) [Coumadin TAB(*)] 10 mg PO .MOFR 01/11/17 Acetaminophen [Tylenol] 650 mg PO Q6HR PRN 01/31/17 guaiFENesin ER TAB [Mucinex*] 600 mg PO BID 01/31/17 Allergies Heparin Allergy (Intermediate, Verified 01/31/17 19:56) pt states it gave her a blood clot Niacin Allergy (Mild, Verified 01/31/17 19:56) Hives Ropinirole [From Requip] Allergy (Mild, Verified 01/31/17 19:56) Hives Amoxicillin [From Augmentin] Adverse Reaction (Mild, Verified 01/31/17 19:56) "Doesn't work" Clavulanic Acid [From Augmentin] Adverse Reaction (Mild, Verified 01/31/17 19:56 ) "Doesn't work" Codeine Adverse Reaction (Mild, Verified 01/31/17 19:56) Nausea And Vomiting Erythromycin Adverse Reaction (Mild, Verified 01/31/17 19:56) "DOESN'T WORK" Metronidazole [From Flagyl] Adverse Reaction (Mild, Verified 01/31/17 19:56) Nausea And Vomiting Morphine Adverse Reaction (Mild, Verified 01/31/17 19:56) "Doesn't work" Sulfamethoxazole w/Trimethoprim [From Bactrim] Adverse Reaction (Mild, Verified 01/31/17 19:56) Nausea And Vomiting plastic tape Allergy (Mild, Uncoded 12/04/16 06:16) Blisters PSurgHx peritoneal dialysis catheter insertion R transmetatarsal amputation BLE arterial stent OS prosthesis SocHx: 1PPD cigarettes w/ ~20PYHX, denies alcohol & recreational drugs; single, no children, lives with her boyfriend; disabled; full code status FamHx: strongly positive for DM ROS: as above, otherwise reviewed and all were negative vitals: Vital Signs Temp 37.2 C 02/01/17 01:10 Pulse 115 02/01/17 01:50 Resp 22 02/01/17 01:50 BP 170/87 02/01/17 01:10 Pulse Ox 90 02/01/17 01:50 Intake & Output 01/31/17 01/31/17 02/01/17 11:59 23:59 11:59 Intake Total 100 Balance 100 Weight 86.183 kg Intake: IV Fluids 100 Constitutional: NAD, normally developed, obese white female HEENM: atraumatic; hearing: clinically intact; oropharynx: clear, mucosa moist Neck: soft tissue: non-tender; thyroid: normal Pulmonary: scant L paraspinal end-expiratory wheeze, otherwise diminished but clear, fair aeration, no accessory muscle use CV: TR/RR, normal S1S2, no carotid bruit, no jugular venous distention, 1+ B DP/ PT, no edema Abdominal: soft, non-distended, non-tender, no rebound/guarding/rigidity, normoactive bowel sounds, no hepatosplenomegaly or masses, no costovertebral angle tenderness Musculoskeletal: general: R transmetatarsal amputation, no palpable tenderness Integumental: normal appearance and texture of exposed skin Psychiatric orientation: AA&O to PPS affect: hostile/abusive mood: angry eye contact: absent content: unreliable responses: reflect poor understanding of her serious medical issues insight: poor Testing: Lab Results 01/31/17 01/31/17 01/31/17 Range/Units 23:05 23:09 23:09 WBC 16.9 H (3.5-10.8) 10^3/ul RBC 4.41 (4.0-5.4) 10^6/ul Hgb 12.4 (12.0-16.0) g/dl Hct 40 (35-47) % MCV 90 (80-97) fL MCH 28 (27-31) pg MCHC 31 (31-36) g/dl RDW 20 H (10.5-15) % Plt Count 305 (150-450) 10^3/ul MPV 9 (7.4-10.4) um3 Neut % (Auto) 94.4 H (38-83) % Lymph % (Auto) 3.2 L (25-47) % [place] % (Auto) 2.3 (1-9) % Eos % (Auto) 0 (0-6) % Baso % (Auto) 0.1 (0-2) % Absolute Neuts (auto) 16.0 H (1.5-7.7) 10^3/ul Absolute Lymphs (auto) 0.5 L (1.0-4.8) 10^3/ul Absolute Monos (auto) 0.4 (0-0.8) 10^3/ul Absolute Eos (auto) 0 (0-0.6) 10^3/ul Absolute Basos (auto) 0 (0-0.2) 10^3/ul Absolute Nucleated RBC 0.01 10^3/ul Nucleated RBC % 0.1 INR (Anticoag Therapy) 2.19 H (0.77-1.02) APTT 41.8 H (26.0-36.3) seconds Sodium 120 L (133-145) mmol/L Potassium 4.2 (3.5-5.0) mmol/L Chloride 88 L (101-111) mmol/L Carbon Dioxide 19 L (22-32) mmol/L Anion Gap 13 H (2-11) mmol/L BUN 34 H (6-24) mg/dL Creatinine 4.11 H (0.51-0.95) mg/dL Est GFR ( Amer) 15.7 (>60) Est GFR (Non-Af Amer) 12.2 (>60) BUN/Creatinine Ratio 8.3 (8-20) Glucose 937 H* (70-100) mg/dL Calcium 8.0 L (8.6-10.3) mg/dL Total Bilirubin 0.20 (0.2-1.0) mg/dL Direct Bilirubin 0.10 (0.03-0.18) mg/dL Indirect Bilirubin 0.1 L (0.3-1.0) mg/dL AST 9 L (13-39) U/L ALT 9 (7-52) U/L Alkaline Phosphatase 124 H (34-104) U/L Troponin I 0.19 H* (<0.04) ng/mL Total Protein 6.2 L (6.4-8.9) g/dL Albumin 2.9 L (3.2-5.2) g/dL Globulin 3.3 (2-4) g/dL Albumin/Globulin Ratio 0.9 L (1-3) ECG, personally reviewed: sinus tachycardia rate 108, no ischemia 2vCXR, personally reviewed: IMPRESSION: Atelectasis right midlung field. Early pneumonia in the left lung base. Impression: 36F presenting with sepsis 2nd LLL pneumonia and severe hyperglycemia/HONK DIAGNOSIS & PLAN Primary sepsis 2nd LLL pneumonia : IVFs : IV levofloxacin : blood & sputum CXs : check urine S pneumo antigen : check rapid influenza : supplemental oxygen : supportive care severe hyperglycemia/HONK : NPO x/ meds w/ sips H2O : ICU monitoring : insulin drip, ICU titration : close monitoring of BNP : check osmolality : pseudo-hypoNatremia of 120 corrects to 140 elevated troponin : suspect demand ischemia : telemetry : trend : aspirin : no beta josse in setting of sepsis Secondary diabetic nephropathy ESRD-PD : continue Q6H peritoneal dialysis : consider nephrology consult in AM CAD : review meds once reconciled HTN : review meds once reconciled HLD : review meds once reconciled asthma : albuterol nebs PRN GERD : omeprazole depression/anxiety : review meds once reconciled Admission Rational: inpatient for sepsis 2nd LLL pneumonia and HONK requiring ICU admission for insulin GTT; inappropriate for outpatient setting DVTp: continue warfarin Code Status: full
[2017-02-01 01:37] LABS: Troponin I 0.19 ng/mL (<0.04)
[2017-02-01] MEDS ORDERED: Promethazine TAB* 25 MG PO PRN (02:15)
[2017-02-01 02:37] LABS: BUN/Creatinine Ratio 8.5 (8-20); Calcium 8.3 mg/dL (8.6-10.3); EGFR African American 15.1 (>60); EGFR Non-African American 11.8 (>60); Potassium 3.8 mmol/L (3.5-5.0)
[2017-02-01 02:38] LABS: Urine Bacteria Absent (Absent); Urine Bilirubin Negative (Negative); Urine Glucose 3+(>=500 mg/dL) (Negative); Urine Nitrite Negative (Negative)
[2017-02-01] MEDS ORDERED: Methadone TAB* 5 MG ONE (02:41)
[2017-02-01] MEDS ORDERED: amLODIPine TAB* 5 MG ONE (02:41)
[2017-02-01] MEDS ORDERED: Gabapentin CAP(*) 100 MG ONE (02:41)
[2017-02-01] MEDS ORDERED: Aspirin Low Dose CHEW TAB* 81 MG PO ONE (02:43)
[2017-02-01] MEDS: amLODIPine TAB* 5 MG PO SCH ×2 (02:43→16:41)
[2017-02-01] MEDS: Gabapentin CAP(*) 100 MG PO SCH ×2 (02:43→16:41)
[2017-02-01] MEDS: Methadone TAB* 5 MG PO PRN (02:43)
[2017-02-01] MEDS ORDERED: NS 0.9% 1000 ML* 1,000 ML IV ONE (03:00)
[2017-02-01] MEDS ORDERED: Mouth Piece, Nicotine* 1 EACH CARTRIDGE INH ONE (03:00)
[2017-02-01] MEDS ORDERED: fentaNYL* 50 MCG/ML 2 ML VIAL (100 MCG VIAL) ONE (03:15)
[2017-02-01] MEDS ORDERED: Mouth Piece, Nicotine* 1 EACH CARTRIDGE ONE (03:16)
[2017-02-01] MEDS ORDERED: Nicotine Inhaler* 10 MG AMP ONE (03:16)
[2017-02-01] MEDS: fentaNYL* 50 MCG/ML 2 ML VIAL (100 MCG VIAL) IV SLOW PU PRN ×2 (03:22→08:01)
[2017-02-01] MEDS: NS 0.9% 1000 ML* 1,000 ML IV SCH ×3 (03:25→20:11)
[2017-02-01 06:28] LABS: Troponin I 0.16 ng/mL (<0.04)
[2017-02-01 07:37] LABS: Hematocrit 36 % (35-47); Hemoglobin 11.6 g/dl (12.0-16.0); Mean Corpuscular HGB Conc 32 g/dl (31-36); Mean Corpuscular Hemoglobin 27 pg (27-31); Mean Corpuscular Volume 86 fL (80-97); Mean Platelet Volume 9 um3 (7.4-10.4); Red Blood Count 4.23 10^6/ul (4.0-5.4); Red Cell Distribution Width 19 % (10.5-15); White Blood Count 14.7 10^3/ul (3.5-10.8)
[2017-02-01 07:40] LABS: Add Diff/Slide Review? Slide Review Added; Comments Flag Yes
[2017-02-01 08:00] LABS: BUN/Creatinine Ratio 8.7 (8-20); Calcium 8.1 mg/dL (8.6-10.3); EGFR African American 16.1 (>60); EGFR Non-African American 12.5 (>60); Potassium 3.7 mmol/L (3.5-5.0)
[2017-02-01 08:03] LABS: Troponin I 0.19 ng/mL (<0.04)
[2017-02-01] MEDS ORDERED: Docusate CAP* 100 MG PO PRN (08:39)
--- NOTE | 2017-02-01 08:45 | PN ---
Subjective Date of Service: 02/01/17 Interval History: Pt is feeling poorly. She c/o pain in her chest and back and states the fentanyl does not help her pain much. She states the pain is when she is coughing. She is brining up a scant amount of sputum that is brownish in color. She has not had a BM since Saturday. Objective Active Medications: Acetaminophen (Tylenol Tab*) 650 mg PO Q6H PRN PRN Reason: FEVER/PAIN Albuterol (Ventolin 2.5 Mg/3 Ml Neb.Kaylynn*) 2.5 mg INH Q2H PRN PRN Reason: SOB/WHEEZING Amlodipine Besylate (Norvasc Tab*) 10 mg PO QPM [facility] Last Admin: 02/01/17 02:43 Dose: 10 mg Aspirin (Aspirin Low Dose Tab*) 81 mg PO DAILY [facility] Docusate Sodium (Colace Cap*) 200 mg PO BID PRN PRN Reason: CONSTIPATION Gabapentin (Neurontin Cap(*)) 200 mg PO QPM [facility] Last Admin: 02/01/17 02:43 Dose: 200 mg Guaifenesin (Mucinex*) 1,200 mg PO BID [facility] Insulin Human Regular 100 (units/ Sodium Chloride) 100 mls @ 6 mls/hr IVPB .PER RATE [facility] PRN Reason: 6 UNITS/HR Last Admin: 02/01/17 00:43 Dose: 6 mls/hr Levofloxacin/Dextrose (Levaquin 750 Mg Ivpremix(*)) 750 mg in 150 mls @ 100 mls /hr IVPB Q48H [facility] Sodium Chloride (Ns 0.9% 1000 Ml*) 1,000 mls @ 125 mls/hr IV PER RATE [facility] Last Admin: 02/01/17 03:25 Dose: 125 mls/hr Insulin Glargine (Lantus(*)) 60 units SUBCUT BEDTIME [facility] Melatonin (Melatonin (Nf)) 3 mg PO BEDTIME PRN; Protocol PRN Reason: Sleep Methadone HCl (Dolophine Tab*) 5 mg PO Q6H PRN PRN Reason: PAIN Last Admin: 02/01/17 02:43 Dose: 5 mg Morphine Sulfate (Morphine Inj (Syringe)*) 4 mg IV Q4H PRN PRN Reason: PAIN Nicotine (Nicotine Inhaler*) 10 mg INH Q2H PRN PRN Reason: CRAVING Omeprazole (Prilosec Cap*) 40 mg PO QPM [facility] Promethazine HCl (Phenergan Tab*) 25 mg PO Q8H PRN PRN Reason: NAUSEA Last Admin: 02/01/17 08:10 Dose: 25 mg Sertraline HCl (Zoloft*) 25 mg PO DAILY [facility] Warfarin Sodium (Coumadin Tab(*)) 7.5 mg PO SuTuWeThSa@1700 [facility] PRN Reason: Protocol Warfarin Sodium (Coumadin Tab(*)) 10 mg PO MoFr@1700 [place] PRN Reason: Protocol Vital Signs - 8 hr 02/01/17 02/01/17 02/01/17 01:00 01:01 01:10 Temperature 99.0 F Pulse Rate 118 115 Respiratory 16 Rate Blood Pressure 170/87 170/87 (mmHg) O2 Sat by Pulse 90 95 Oximetry 02/01/17 02/01/17 02/01/17 01:15 01:32 01:42 Temperature 98.9 F Pulse Rate 115 122 114 Respiratory 28 14 6 Rate Blood Pressure 174/94 174/94 (mmHg) O2 Sat by Pulse 87 88 89 Oximetry 02/01/17 02/01/17 02/01/17 01:45 01:49 01:50 Temperature Pulse Rate 115 115 Respiratory 29 22 Rate Blood Pressure 188/93 (mmHg) O2 Sat by Pulse 90 90 90 Oximetry 02/01/17 02/01/17 02/01/17 02:00 02:01 02:16 Temperature Pulse Rate 111 112 114 Respiratory 30 30 29 Rate Blood Pressure 180/89 195/126 (mmHg) O2 Sat by Pulse 89 89 92 Oximetry 02/01/17 02/01/17 02/01/17 02:17 02:43 02:48 Temperature Pulse Rate 113 111 Respiratory 31 29 27 Rate Blood Pressure 195/112 (mmHg) O2 Sat by Pulse 93 91 Oximetry 02/01/17 02/01/17 02/01/17 03:00 03:01 03:02 Temperature Pulse Rate 108 107 108 Respiratory 29 31 32 Rate Blood Pressure 177/106 (mmHg) O2 Sat by Pulse 90 91 90 Oximetry 02/01/17 02/01/17 02/01/17 03:03 03:04 03:22 Temperature Pulse Rate Respiratory 30 30 28 Rate Blood Pressure (mmHg) O2 Sat by Pulse Oximetry 02/01/17 02/01/17 02/01/17 03:29 03:30 04:00 Temperature 97.5 F Pulse Rate 109 Respiratory 28 30 24 Rate Blood Pressure 150/88 (mmHg) O2 Sat by Pulse 90 Oximetry 02/01/17 02/01/17 02/01/17 04:01 04:35 05:00 Temperature Pulse Rate 109 109 109 Respiratory 24 21 22 Rate Blood Pressure 160/99 (mmHg) O2 Sat by Pulse 90 96 93 Oximetry 02/01/17 02/01/17 02/01/17 05:01 05:19 06:00 Temperature Pulse Rate 109 107 103 Respiratory 23 21 22 Rate Blood Pressure 139/82 (mmHg) O2 Sat by Pulse 91 90 93 Oximetry 02/01/17 02/01/17 02/01/17 06:01 06:39 06:40 Temperature Pulse Rate 103 107 Respiratory 21 29 29 Rate Blood Pressure (mmHg) O2 Sat by Pulse 93 96 Oximetry 02/01/17 02/01/17 02/01/17 07:00 07:01 08:00 Temperature 97.5 F Pulse Rate 104 103 111 Respiratory 20 26 17 Rate Blood Pressure 145/93 (mmHg) O2 Sat by Pulse 95 95 93 Oximetry 02/01/17 02/01/17 08:01 08:37 Temperature Pulse Rate 113 104 Respiratory 13 28 Rate Blood Pressure 182/104 (mmHg) O2 Sat by Pulse 94 95 Oximetry Oxygen Devices in Use Now: High Flow Nasal Cannula - 10L Appearance: Young female lying in bed, NAD Eyes: No Scleral Icterus Ears/Nose/Mouth/Throat: Mucous Membranes Moist Respiratory: - - L lung clear, no crackles or other abnormal sounds heard, R lung markedly diminished in all lung hernandez Cardiovascular: NL Sounds; No Murmurs; No JVD, No Edema, - - tachycardic but regular Abdominal: NL Sounds; No Tenderness; No Distention Extremities: No Clubbing, Cyanosis, - - s/p L transmetatarsal amputation, no drainage or surrounding erythema, wound looks dry Skin: No Nodules or Sclerosis Neurological: Alert and Oriented x 3 Result Diagrams: 02/01/17 06:38 02/01/17 06:38 Microbiology and Other Data: Microbiology 02/01/17 02:00 Nasal Screen MRSA (PCR)([facility]) - Final Nasal Mrsa Negative 02/01/17 02:15 Streptococcus pneumoniae Ag Screen - Final Urine Negative S. pneumo Antigen 02/01/17 02:00 Influenza Types A,B Antigen ([facility]) - Final Nasal Specimen received for Influenza A/B Molecular testing Assess/Plan/Problems-Billing Ms Wright is a 36 yo F who has a h/o poorly controlled type II DM (insulin dependent) with diabetic neuropathy, nephropathy and retinopathy, ESRD on PD, CAD, HTN and HLD who presented to the ER with c/o SOB and was admitted for severe sepsis by sepsis 2 criteria. - Patient Problems (1) Severe sepsis Current Visit: Yes Status: Acute Code(s): A41.9 - SEPSIS, UNSPECIFIED ORGANISM; R65.20 - SEVERE SEPSIS WITHOUT SEPTIC SHOCK SNOMED Code(s): 79950693 Comment: The patient by sepsis 2 criteria is severely septic with tachycardia , leukocytosis, pneumonia and end organ dysfunction (elevated troponin and acute hypoxic respiratory failure). By sepsis 3 criteria the patient's SOFA score is at most 1. The patient has received about 1.5L NS since admission which falls below the 30ml/kg bolus however given her ESRD the IVF needed to be given cautiously so as not to fluid overload the patient. She has been started on levaquin for a presumed LLL pneumonia. Will continue to give IVF hydration as she remains tachycardic. Check sputum culture, legionella and s.pneumoniae urinary antigens. (2) Acute respiratory failure with hypoxia Current Visit: Yes Status: Acute Code(s): J96.01 - ACUTE RESPIRATORY FAILURE WITH HYPOXIA SNOMED Code(s): 28978140 Comment: The patient is in acute hypoxic respiratory failure secondary to LLL pneumonia. Will check repeat CXR as now her R lung sounds are markedly diminished. Titrate O2 as able. (3) Type II diabetes mellitus with complication, uncontrolled Current Visit: Yes Status: Acute Code(s): E11.8 - TYPE 2 DIABETES MELLITUS WITH UNSPECIFIED COMPLICATIONS; E11.65 - TYPE 2 DIABETES MELLITUS WITH HYPERGLYCEMIA SNOMED Code(s): 393070880 Comment: The patient has uncontrolled type II DM. She is insulin dependent. Her most recent A1c in 10/2016 was 12.4%. Will recheck now. The patient presented with severe hyperglycemia and possibly HHS. She has been started on an insulin drip which is being titrated per protocol. Will check next glucose level and make further adjustments on the drip. THe patient has associated retinopathy, neuropathy and nephropathy (ESRD). (4) CAD (coronary artery disease) Current Visit: Yes Status: Chronic Code(s): I25.10 - ATHSCL HEART DISEASE OF [place] CORONARY ARTERY W/O ANG PCTRS SNOMED Code(s): 66619841 Comment: The patient's troponin is more elevated now than it has been previously. Likely demand ischemia secondary to severe sepsis and hypoxic respiratory failure. She would likely benefit from a stress test in the near future however she states last time it was tried she could not tolerate the stress test. Continue ASA. (5) ESRD (end stage renal disease) Current Visit: Yes Status: Chronic Code(s): N18.6 - END STAGE RENAL DISEASE SNOMED Code(s): 87884315 Comment: Continue peritoneal dialysis. (6) HTN (hypertension) Current Visit: Yes Status: Chronic Code(s): I10 - ESSENTIAL (PRIMARY) HYPERTENSION SNOMED Code(s): 13783656 Comment: BP is markedly elevated at this time. She received her amlodipine early today. Will start losartan. She has been on this in the past. Monitor BP. (7) PAD (peripheral artery disease) Current Visit: Yes Status: Acute Code(s): I73.9 - PERIPHERAL VASCULAR DISEASE, UNSPECIFIED SNOMED Code(s): 575969925 Comment: No acute issues at this time. Continue coumadin. (8) Gastroparesis Current Visit: Yes Status: Chronic Code(s): K31.84 - GASTROPARESIS SNOMED Code(s): 868314099 Comment: Continue phenergan prn nausea. (9) DVT prophylaxis Current Visit: Yes Status: Acute Onset Date: 06/27/14 Code(s): LBB8705 - SNOMED Code(s): 678862851 Comment: Therapeutic INR (10) Full code status Current Visit: Yes Status: Acute Onset Date: 06/27/14 Code(s): Z78.9 - OTHER SPECIFIED HEALTH STATUS SNOMED Code(s): 513294021
[2017-02-01] MEDS ORDERED: Docusate CAP* 100 MG PO SCH (09:00)
[2017-02-01] MEDS: guaiFENesin ER TAB 600 MG PO SCH ×2 (09:21→21:03)
[2017-02-01] MEDS: Aspirin Low Dose CHEW TAB* 81 MG PO SCH (09:21)
[2017-02-01] MEDS: Morphine INJ* 4 MG/ML 1 ML CARPUJECT IV PRN ×4 (09:21→21:36)
[2017-02-01] MEDS: Sertraline* 25 MG TAB PO SCH (09:21)
--- NOTE | 2017-02-01 09:39 | RAD ---
HISTORY: Sepsis, left lower lobe pneumonia COMPARISONS: January 31, 2017 VIEWS: 1: frontal portable view of the chest at 9:18 AM FINDINGS: LINES AND TUBES: None. CARDIOMEDIASTINAL SILHOUETTE: The cardiomediastinal silhouette is normal for portable technique. PLEURA: The costophrenic angles are sharp. No pleural abnormalities are noted. LUNG PARENCHYMA: There is persistent linear opacification of the right midlung. There has been improved aeration of left lung base ABDOMEN: The upper abdomen is clear. There is no subphrenic gas. BONES AND SOFT TISSUES: No bone or soft tissue abnormalities are noted. IMPRESSION: PERSISTENT LINEAR ATELECTASIS VERSUS PLEUROPARENCHYMAL SCARRING OF THE RIGHT MIDLUNG
[2017-02-01 10:02] LABS: Troponin I 0.23 ng/mL (<0.04)
[2017-02-01] MEDS: Losartan TAB* 25 MG PO SCH (11:11)
[2017-02-01] MEDS: Nicotine Inhaler* 10 MG AMP INH PRN (12:07)
[2017-02-01] MEDS ORDERED: Dextrose 50% Syringe 50 ML* 25 GM/50 ML SYRINGE IV PUSH PRN (12:34)
[2017-02-01] MEDS ORDERED: Insulin GLARGINE(*) 1 UNITS UNIT ONE (12:43)
[2017-02-01] MEDS ORDERED: Insulin LISPRO* 1 UNITS UNIT SUBCUT ONE (12:44)
[2017-02-01] MEDS: Insulin LISPRO* 1 UNITS UNIT SUBCUT SCH ×3 (12:49→21:03)
[2017-02-01] MEDS: Insulin GLARGINE(*) 1 UNITS UNIT SUBCUT SCH (12:49)
[2017-02-01] MEDS: Omeprazole CAP* 20 MG PO SCH (16:41)
[2017-02-01] MEDS ORDERED: Warfarin TAB(*) 10 MG PO SCH (17:00)
[2017-02-01] MEDS ORDERED: amLODIPine TAB* 5 MG PO SCH (18:00)
[2017-02-01] MEDS ORDERED: Gabapentin CAP(*) 100 MG PO SCH (18:00)
[2017-02-01] MEDS: Albuterol 2.5 MG/3 ML NEB.SOL* (0.083%) INH PRN ×2 (18:38→22:13)
[2017-02-01] MEDS ORDERED: Insulin GLARGINE(*) 1 UNITS UNIT SUBCUT SCH (21:00)
[2017-02-01] MEDS ORDERED: Acetaminophen SUPP* 650 MG SUPP PR PRN (22:18)
--- NOTE | 2017-02-01 22:27 | PN ---
Progress Note - Progress Note Date of Service: 02/01/17 Note: Nursing called reporting tachypnea in the 30s w/ desaturation into the mid-80s. Increasing her O2 to 15L [place], repositioning, & albuterol neb seems to have stablilized her as she is able to speak in complete sentences and saO2 is up to the low 90s. Given her tenuous state, will make her NPO in case of further deterioration requiring intubation. Change glucometry to Q4H, check lactic. CXR appears improved from previous. Lung sounds are rhonchorous on expiration L>R w / mild accessory muscle use.
[2017-02-02] MEDS: Insulin LISPRO* 1 UNITS UNIT SUBCUT SCH ×5 (04:24→22:03)
[2017-02-02] MEDS: NS 0.9% 1000 ML* 1,000 ML IV SCH (04:25)
[2017-02-02] MEDS: Morphine INJ* 4 MG/ML 1 ML CARPUJECT IV PRN ×5 (05:40→22:03)
[2017-02-02 08:01] LABS: Hematocrit 35 % (35-47); Hemoglobin 11.5 g/dl (12.0-16.0); Mean Corpuscular HGB Conc 33 g/dl (31-36); Mean Corpuscular Hemoglobin 28 pg (27-31); Mean Corpuscular Volume 86 fL (80-97); Mean Platelet Volume 8 um3 (7.4-10.4); Red Blood Count 4.11 10^6/ul (4.0-5.4); Red Cell Distribution Width 19 % (10.5-15); White Blood Count 10.3 10^3/ul (3.5-10.8)
--- NOTE | 2017-02-02 08:29 | RAD ---
Indication: Respiratory distress. Cardiac disease. Former tobacco use. Comparison: February 01, 2017 Technique: Upright AP 2206 hours Report: Obese body habitus limits image quality. Mild bilateral linear subsegmental atelectasis at the mid to upper lung zones. No alveolar consolidation, suspicious focal pulmonary lesion, pleural effusion, or pneumothorax evident. The heart, pulmonary vasculature, and mediastinal contours are unremarkable. IMPRESSION: Mild bilateral subsegmental atelectasis.
[2017-02-02 09:10] LABS: Anion Gap 3 mmol/L (2-11); BUN/Creatinine Ratio 8.2 (8-20); Blood Urea Nitrogen 28 mg/dL (6-24); CO2 Carbon Dioxide 25 mmol/L (22-32); Calcium 7.6 mg/dL (8.6-10.3); Chloride 103 mmol/L (101-111); EGFR African American 19.3 (>60); Glucose 130 mg/dL (70-100); Sodium 131 mmol/L (133-145)
[2017-02-02] MEDS: Albuterol 2.5 MG/3 ML NEB.SOL* (0.083%) INH PRN ×2 (09:20→21:11)
[2017-02-02] MEDS: guaiFENesin ER TAB 600 MG PO SCH ×2 (09:53→22:03)
[2017-02-02] MEDS: Sertraline* 25 MG TAB PO SCH (09:53)
[2017-02-02] MEDS: Aspirin Low Dose CHEW TAB* 81 MG PO SCH (09:53)
[2017-02-02] MEDS: Losartan TAB* 25 MG PO SCH (09:53)
[2017-02-02 10:49] LABS: Calcium 8.2 mg/dL (8.6-10.3); EGFR African American 19.8 (>60); EGFR Non-African American 15.4 (>60); Potassium 3.2 mmol/L (3.5-5.0)
[2017-02-02] MEDS ORDERED: Acetaminophen TAB* 325 MG PO PRN (11:37)
[2017-02-02] MEDS ORDERED: Furosemide IV* 10 MG/ML 10 ML VIAL (100 MG) IV ONE (11:38)
--- NOTE | 2017-02-02 12:15 | PN ---
Subjective Date of Service: 02/02/17 Interval History: Pt states she feels she is breathing faster today but overall she states she feels a little bit better. She denies any pain at this time. She is coughing some but she is not able to get up any sputum. Objective Active Medications: Acetaminophen (Tylenol Tab*) 650 mg PO Q4H PRN PRN Reason: PAIN Albuterol (Ventolin 2.5 Mg/3 Ml Neb.Kaylynn*) 2.5 mg INH Q2H PRN PRN Reason: SOB/WHEEZING Last Admin: 02/02/17 09:20 Dose: 2.5 mg Amlodipine Besylate (Norvasc Tab*) 10 mg PO QPM [facility] Last Admin: 02/01/17 16:41 Dose: 10 mg Aspirin (Aspirin Low Dose Tab*) 81 mg PO DAILY [facility] Last Admin: 02/02/17 09:53 Dose: 81 mg Dextrose (D50w Syringe 50 Ml*) 12.5 gm IV PUSH .FOR FS < 60 - SS PRN PRN Reason: FS < 60 Docusate Sodium (Colace Cap*) 200 mg PO BID PRN PRN Reason: CONSTIPATION Gabapentin (Neurontin Cap(*)) 200 mg PO QPM [facility] Last Admin: 02/01/17 16:41 Dose: 200 mg Guaifenesin (Mucinex*) 1,200 mg PO BID [facility] Last Admin: 02/02/17 09:53 Dose: 1,200 mg Levofloxacin/Dextrose (Levaquin 750 Mg Ivpremix(*)) 750 mg in 150 mls @ 100 mls /hr IVPB Q48H [facility] Insulin Glargine (Lantus(*)) 40 units SUBCUT Q24H [facility] Last Admin: 02/01/17 12:49 Dose: 40 unit Insulin Human Lispro (Humalog*) 0 units SUBCUT ACHS [facility] PRN Reason: Protocol Losartan Potassium (Cozaar Tab*) 50 mg PO DAILY [facility] Last Admin: 02/02/17 09:53 Dose: 50 mg Melatonin (Melatonin (Nf)) 3 mg PO BEDTIME PRN; Protocol PRN Reason: Sleep Methadone HCl (Dolophine Tab*) 5 mg PO Q6H PRN PRN Reason: PAIN Last Admin: 02/01/17 02:43 Dose: 5 mg Morphine Sulfate (Morphine Inj (Syringe)*) 4 mg IV Q4H PRN PRN Reason: PAIN Last Admin: 02/02/17 09:52 Dose: 4 mg Mupirocin (Bactroban 2 % Oint*) 1 applic TOPICAL DAILY@1300 [facility] Nicotine (Nicotine Inhaler*) 10 mg INH Q2H PRN PRN Reason: CRAVING Last Admin: 02/01/17 12:07 Dose: 10 mg Omeprazole (Prilosec Cap*) 40 mg PO QPM [facility] Last Admin: 02/01/17 16:41 Dose: 40 mg Promethazine HCl (Phenergan Tab*) 25 mg PO Q8H PRN PRN Reason: NAUSEA Last Admin: 02/01/17 08:10 Dose: 25 mg Sertraline HCl (Zoloft*) 25 mg PO DAILY [facility] Last Admin: 02/02/17 09:53 Dose: 25 mg Warfarin Sodium (Coumadin Tab(*)) 7.5 mg PO SuTuWeThSa@1700 [facility] PRN Reason: Protocol Warfarin Sodium (Coumadin Tab(*)) 10 mg PO MoFr@1700 [facility] PRN Reason: Protocol Last Admin: 02/01/17 16:41 Dose: 10 mg Vital Signs - 8 hr 02/02/17 02/02/17 02/02/17 05:00 05:01 05:40 Temperature Pulse Rate 105 103 Respiratory 19 18 24 Rate Blood Pressure 126/96 (mmHg) O2 Sat by Pulse 88 89 Oximetry 02/02/17 02/02/17 02/02/17 06:00 06:01 06:25 Temperature Pulse Rate 105 104 Respiratory 13 31 Rate Blood Pressure 148/92 (mmHg) O2 Sat by Pulse 96 97 92 Oximetry 02/02/17 02/02/17 02/02/17 07:00 07:01 07:31 Temperature 98 F Pulse Rate 101 100 Respiratory 17 19 Rate Blood Pressure 123/94 (mmHg) O2 Sat by Pulse 96 97 Oximetry 02/02/17 02/02/17 02/02/17 08:00 08:01 09:00 Temperature Pulse Rate 105 105 118 Respiratory 42 20 22 Rate Blood Pressure 176/104 142/101 (mmHg) O2 Sat by Pulse 92 92 94 Oximetry 02/02/17 02/02/17 02/02/17 09:01 09:15 09:23 Temperature Pulse Rate 117 112 Respiratory 26 23 Rate Blood Pressure (mmHg) O2 Sat by Pulse 92 96 96 Oximetry 02/02/17 02/02/17 02/02/17 09:52 10:00 10:01 Temperature Pulse Rate 112 113 Respiratory 23 20 26 Rate Blood Pressure 149/95 (mmHg) O2 Sat by Pulse 98 98 Oximetry 02/02/17 02/02/17 02/02/17 11:00 11:07 11:28 Temperature 98.3 F Pulse Rate 124 109 Respiratory 25 24 Rate Blood Pressure 155/83 (mmHg) O2 Sat by Pulse 96 98 Oximetry Oxygen Devices in Use Now: High Flow Heated Nasal Cannula - 30L 70% FiO2 Appearance: Middle aged female sleeping in bed, easily awakened to voice, NAD Eyes: No Scleral Icterus Ears/Nose/Mouth/Throat: Mucous Membranes Moist Respiratory: Symmetrical Chest Expansion and Respiratory Effort, - - coarse breath sounds in all lung hernandez with few scattered wheezes Cardiovascular: NL Sounds; No Murmurs; No JVD, - - tachycardic but regular, 1+ LE edema Abdominal: NL Sounds; No Tenderness; No Distention Extremities: No Clubbing, Cyanosis, - - s/p R TMA Skin: No Rash or Ulcers, No Nodules or Sclerosis Neurological: Alert and Oriented x 3 Result Diagrams: 02/02/17 07:45 02/02/17 10:15 Microbiology and Other Data: Microbiology 02/01/17 02:00 Nasal Screen MRSA (PCR)([facility]) - Final Nasal Mrsa Negative 02/01/17 02:15 Streptococcus pneumoniae Ag Screen - Final Urine Negative S. pneumo Antigen 02/01/17 02:00 Influenza Types A,B Antigen ([facility]) - Final Nasal Specimen received for Influenza A/B Molecular testing Assess/Plan/Problems-Billing Ms Wright is a 36 yo F who has a h/o poorly controlled type II DM (insulin dependent) with diabetic neuropathy, nephropathy and retinopathy, ESRD on PD, CAD, HTN and HLD who presented to the ER with c/o SOB and was admitted for severe sepsis by sepsis 2 criteria. - Patient Problems (1) Severe sepsis Current Visit: Yes Status: Acute Code(s): A41.9 - SEPSIS, UNSPECIFIED ORGANISM; R65.20 - SEVERE SEPSIS WITHOUT SEPTIC SHOCK SNOMED Code(s): 77230505 Comment: The patient's WBC count has normalized. She remains tachycardic and with acute hypoxic respiratory failure. Will continue levaquin 750mg IV q48hr. Sputum culture is pending. Legionella and S.pneumoniae urinary antigens are negative. Continue to monitor VS and volume status. (2) Acute respiratory failure with hypoxia Current Visit: Yes Status: Acute Code(s): J96.01 - ACUTE RESPIRATORY FAILURE WITH HYPOXIA SNOMED Code(s): 28071157 Comment: The patient is in acute hypoxic respiratory failure secondary to possible LLL pneumonia. I question if the increased O2 requirements may be secondary to fluid overload. Will give lasix 60mg IV x1 now. Titrate O2 as able. (3) Type II diabetes mellitus with complication, uncontrolled Current Visit: Yes Status: Acute Code(s): E11.8 - TYPE 2 DIABETES MELLITUS WITH UNSPECIFIED COMPLICATIONS; E11.65 - TYPE 2 DIABETES MELLITUS WITH HYPERGLYCEMIA SNOMED Code(s): 519060050 Comment: The patient has uncontrolled type II DM. She is insulin dependent. A1c is elevated at 12.6%. Her sugars since yesterday afternoon have been under good control. Will continue lantus 40units SQ daily and lispro sliding scale. (4) CAD (coronary artery disease) Current Visit: Yes Status: Chronic Code(s): I25.10 - ATHSCL HEART DISEASE OF [place] CORONARY ARTERY W/O ANG PCTRS SNOMED Code(s): 72092273 Comment: The patient's troponin is more elevated now than it has been previously. Likely demand ischemia secondary to severe sepsis and hypoxic respiratory failure. She would likely benefit from a stress test in the near future however she states last time it was tried she could not tolerate the stress test. Continue ASA. (5) ESRD (end stage renal disease) Current Visit: Yes Status: Chronic Code(s): N18.6 - END STAGE RENAL DISEASE SNOMED Code(s): 41844048 Comment: Continue peritoneal dialysis. (6) HTN (hypertension) Current Visit: Yes Status: Chronic Code(s): I10 - ESSENTIAL (PRIMARY) HYPERTENSION SNOMED Code(s): 22642979 Comment: BP is improved with addition of losartan to amlodipine. Will monitor and if BP still high will increase losartan. (7) PAD (peripheral artery disease) Current Visit: Yes Status: Acute Code(s): I73.9 - PERIPHERAL VASCULAR DISEASE, UNSPECIFIED SNOMED Code(s): 538060015 Comment: No acute issues at this time. Continue coumadin. (8) Gastroparesis Current Visit: Yes Status: Chronic Code(s): K31.84 - GASTROPARESIS SNOMED Code(s): 472505637 Comment: Continue phenergan prn nausea. (9) DVT prophylaxis Current Visit: Yes Status: Acute Onset Date: 06/27/14 Code(s): QDP0604 - SNOMED Code(s): 629896087 Comment: Therapeutic INR (10) Full code status Current Visit: Yes Status: Acute Onset Date: 06/27/14 Code(s): Z78.9 - OTHER SPECIFIED HEALTH STATUS SNOMED Code(s): 319334509
[2017-02-02] MEDS: Nicotine Inhaler* 10 MG AMP INH PRN (12:19)
[2017-02-02] MEDS: Insulin GLARGINE(*) 1 UNITS UNIT SUBCUT SCH (13:42)
[2017-02-02] MEDS: Mupirocin 2% OINT* TUBE TOPICAL SCH (13:50)
[2017-02-02] MEDS ORDERED: LORazepam TAB(*) 1 MG PO PRN (14:59)
[2017-02-02] MEDS ORDERED: LORazepam TAB(*) 1 MG ONE (15:03)
[2017-02-02] MEDS ORDERED: Warfarin TAB(*) 7.5 MG PO SCH (17:00)
[2017-02-02] MEDS ORDERED: LORazepam TAB(*) 0.5 MG ONE (17:14)
[2017-02-02] MEDS: ALPRAZolam TAB* 0.5 MG PO ONE ×2 (17:25→17:31)
[2017-02-02] MEDS: Gabapentin CAP(*) 100 MG PO SCH (18:36)
[2017-02-02] MEDS: Omeprazole CAP* 20 MG PO SCH (18:37)
[2017-02-02] MEDS: amLODIPine TAB* 5 MG PO SCH (18:37)
[2017-02-02] MEDS: LORazepam TAB(*) 1 MG PO PRN (19:45)
[2017-02-03] MEDS ORDERED: Levofloxacin 750 MG IVPREMIX(* 750 MG/150 ML BAG IVPB SCH
[2017-02-03] MEDS: Albuterol 2.5 MG/3 ML NEB.SOL* (0.083%) INH PRN ×2 (00:22→19:48)
[2017-02-03] MEDS: Morphine INJ* 4 MG/ML 1 ML CARPUJECT IV PRN ×6 (01:56→23:10)
[2017-02-03 06:45] LABS: Hematocrit 33 % (35-47); Hemoglobin 10.8 g/dl (12.0-16.0); Mean Corpuscular HGB Conc 32 g/dl (31-36); Mean Corpuscular Hemoglobin 28 pg (27-31); Mean Corpuscular Volume 85 fL (80-97); Mean Platelet Volume 8 um3 (7.4-10.4); Red Blood Count 3.89 10^6/ul (4.0-5.4); Red Cell Distribution Width 19 % (10.5-15); White Blood Count 11.4 10^3/ul (3.5-10.8)
[2017-02-03 07:57] LABS: Calcium 7.7 mg/dL (8.6-10.3); EGFR African American 20.9 (>60); EGFR Non-African American 16.2 (>60)
[2017-02-03 08:10] LABS: Potassium 3.5 mmol/L (3.5-5.0)
[2017-02-03] MEDS: Insulin LISPRO* 1 UNITS UNIT SUBCUT SCH ×6 (08:14→22:04)
[2017-02-03] MEDS: Sertraline* 25 MG TAB PO SCH (09:59)
[2017-02-03] MEDS: guaiFENesin ER TAB 600 MG PO SCH ×2 (09:59→22:03)
[2017-02-03] MEDS: Aspirin Low Dose CHEW TAB* 81 MG PO SCH (09:59)
[2017-02-03] MEDS: Losartan TAB* 25 MG PO SCH (09:59)
--- NOTE | 2017-02-03 11:03 | PN ---
Subjective Date of Service: 02/03/17 Interval History: Pt is feeling ok but very anxious to leave. She now states for the last 2 days she has been coughing up a significant amount of sputum. Objective Active Medications: Acetaminophen (Tylenol Tab*) 650 mg PO Q4H PRN PRN Reason: PAIN Albuterol (Ventolin 2.5 Mg/3 Ml Neb.Kaylynn*) 2.5 mg INH Q2H PRN PRN Reason: SOB/WHEEZING Last Admin: 02/03/17 00:22 Dose: 2.5 mg Amlodipine Besylate (Norvasc Tab*) 10 mg PO QPM [facility] Last Admin: 02/02/17 18:37 Dose: 10 mg Aspirin (Aspirin Low Dose Tab*) 81 mg PO DAILY [facility] Last Admin: 02/03/17 09:59 Dose: 81 mg Dextrose (D50w Syringe 50 Ml*) 12.5 gm IV PUSH .FOR FS < 60 - SS PRN PRN Reason: FS < 60 Docusate Sodium (Colace Cap*) 200 mg PO BID PRN PRN Reason: CONSTIPATION Gabapentin (Neurontin Cap(*)) 200 mg PO QPM [facility] Last Admin: 02/02/17 18:36 Dose: 200 mg Guaifenesin (Mucinex*) 1,200 mg PO BID [facility] Last Admin: 02/03/17 09:59 Dose: 1,200 mg Levofloxacin/Dextrose (Levaquin 750 Mg Ivpremix(*)) 750 mg in 150 mls @ 100 mls /hr IVPB Q48H [facility] Last Admin: 02/03/17 00:01 Dose: 100 mls/hr Insulin Glargine (Lantus(*)) 40 units SUBCUT Q24H [facility] Last Admin: 02/02/17 13:42 Dose: 40 unit Insulin Human Lispro (Humalog*) 0 units SUBCUT ACHS [facility] PRN Reason: Protocol Last Admin: 02/03/17 08:14 Dose: Not Given Lorazepam (Ativan Tab(*)) 1 mg PO Q4H PRN PRN Reason: ANXIETY Last Admin: 02/02/17 19:45 Dose: 1 mg Losartan Potassium (Cozaar Tab*) 50 mg PO DAILY [facility] Last Admin: 02/03/17 09:59 Dose: 50 mg Melatonin (Melatonin (Nf)) 3 mg PO BEDTIME PRN; Protocol PRN Reason: Sleep Methadone HCl (Dolophine Tab*) 5 mg PO Q6H PRN PRN Reason: PAIN Last Admin: 02/01/17 02:43 Dose: 5 mg Morphine Sulfate (Morphine Inj (Syringe)*) 4 mg IV Q4H PRN PRN Reason: PAIN Last Admin: 02/03/17 09:59 Dose: 4 mg Mupirocin (Bactroban 2 % Oint*) 1 applic TOPICAL DAILY@1300 [facility] Last Admin: 02/02/17 13:50 Dose: Not Given Nicotine (Nicotine Inhaler*) 10 mg INH Q2H PRN PRN Reason: CRAVING Last Admin: 02/02/17 12:19 Dose: 10 mg Omeprazole (Prilosec Cap*) 40 mg PO QPM [facility] Last Admin: 02/02/17 18:37 Dose: 40 mg Promethazine HCl (Phenergan Tab*) 25 mg PO Q8H PRN PRN Reason: NAUSEA Last Admin: 02/01/17 08:10 Dose: 25 mg Sertraline HCl (Zoloft*) 25 mg PO DAILY [facility] Last Admin: 02/03/17 09:59 Dose: 25 mg Warfarin Sodium (Coumadin Tab(*)) 6 mg PO ONCE@1700 [facility] PRN Reason: Protocol Stop: 02/03/17 17:01 Vital Signs - 8 hr 02/03/17 02/03/17 02/03/17 03:00 03:01 03:06 Temperature Pulse Rate 109 111 108 Respiratory 26 24 22 Rate Blood Pressure 130/86 140/81 (mmHg) O2 Sat by Pulse 90 91 90 Oximetry 02/03/17 02/03/17 02/03/17 03:14 04:00 04:01 Temperature Pulse Rate 109 108 Respiratory 25 21 22 Rate Blood Pressure 134/86 (mmHg) O2 Sat by Pulse 91 94 Oximetry 02/03/17 02/03/17 02/03/17 04:49 04:51 05:00 Temperature 98.5 F Pulse Rate 105 Respiratory 27 22 Rate Blood Pressure (mmHg) O2 Sat by Pulse 93 Oximetry 02/03/17 02/03/17 02/03/17 05:01 05:04 05:55 Temperature Pulse Rate 104 Respiratory 24 25 25 Rate Blood Pressure 127/80 (mmHg) O2 Sat by Pulse 95 Oximetry 02/03/17 02/03/17 02/03/17 06:00 06:01 07:00 Temperature Pulse Rate 117 123 112 Respiratory 20 16 43 Rate Blood Pressure 148/107 127/102 (mmHg) O2 Sat by Pulse 95 98 91 Oximetry 02/03/17 02/03/17 02/03/17 07:01 07:32 08:00 Temperature 99.2 F Pulse Rate 112 109 Respiratory 36 23 Rate Blood Pressure (mmHg) O2 Sat by Pulse 92 91 Oximetry 02/03/17 02/03/17 02/03/17 08:01 08:08 09:00 Temperature Pulse Rate 109 108 107 Respiratory 22 21 19 Rate Blood Pressure 131/81 (mmHg) O2 Sat by Pulse 92 92 90 Oximetry 02/03/17 02/03/17 02/03/17 09:01 09:59 10:00 Temperature Pulse Rate 108 114 Respiratory 22 19 28 Rate Blood Pressure 129/89 (mmHg) O2 Sat by Pulse 91 94 Oximetry 02/03/17 10:08 Temperature Pulse Rate 116 Respiratory 29 Rate Blood Pressure 130/86 (mmHg) O2 Sat by Pulse 93 Oximetry Oxygen Devices in Use Now: High Flow Heated Nasal Cannula Appearance: Young female sitting up in bed, NAD Eyes: No Scleral Icterus Ears/Nose/Mouth/Throat: Mucous Membranes Moist Respiratory: - - improved breath sounds but crackles heard at the bases bilaterally, few expiratory wheezes Cardiovascular: NL Sounds; No Murmurs; No JVD, - - tachycardic but regular, trace LE edema Abdominal: NL Sounds; No Tenderness; No Distention Extremities: No Clubbing, Cyanosis, - - s/p R TMA Skin: No Rash or Ulcers, No Nodules or Sclerosis Neurological: Alert and Oriented x 3 Result Diagrams: 02/03/17 06:24 02/03/17 06:24 Microbiology and Other Data: Microbiology 02/01/17 02:00 Nasal Screen MRSA (PCR)([facility]) - Final Nasal Mrsa Negative 02/01/17 02:15 Streptococcus pneumoniae Ag Screen - Final Urine Negative S. pneumo Antigen 02/01/17 02:00 Influenza Types A,B Antigen ([facility]) - Final Nasal Specimen received for Influenza A/B Molecular testing Assess/Plan/Problems-Billing Ms Wright is a 36 yo F who has a h/o poorly controlled type II DM (insulin dependent) with diabetic neuropathy, nephropathy and retinopathy, ESRD on PD, CAD, HTN and HLD who presented to the ER with c/o SOB and was admitted for severe sepsis by sepsis 2 criteria. - Patient Problems (1) Severe sepsis Current Visit: Yes Status: Acute Code(s): A41.9 - SEPSIS, UNSPECIFIED ORGANISM; R65.20 - SEVERE SEPSIS WITHOUT SEPTIC SHOCK SNOMED Code(s): 87391623 Comment: The patient's WBC count has increased but no new symptoms, no fever. Continue levaquin 750mg IV q48hr. Sputum culture still pending. Dr. Vail will see the patient today to evaluate the cause of her hypoxic respiratory failure. (2) Acute respiratory failure with hypoxia Current Visit: Yes Status: Acute Code(s): J96.01 - ACUTE RESPIRATORY FAILURE WITH HYPOXIA SNOMED Code(s): 94623734 Comment: The patient is in acute hypoxic respiratory failure secondary to possible LLL pneumonia and likely fluid overload. Yesterday her weight was 202, today she is down to 199.5lb. Her dry weight is around 193lb. Will have Dr. Vail see the patient to evaluate her fluid status. ? another dose of IV lasix today in addition to her PD. Titrate vapotherm agressively. (3) Type II diabetes mellitus with complication, uncontrolled Current Visit: Yes Status: Acute Code(s): E11.8 - TYPE 2 DIABETES MELLITUS WITH UNSPECIFIED COMPLICATIONS; E11.65 - TYPE 2 DIABETES MELLITUS WITH HYPERGLYCEMIA SNOMED Code(s): 913939309 Comment: The patient has uncontrolled type II DM. She is insulin dependent. A1c is elevated at 12.6%. Her am sugars are under good control but she increases throughout the day. Will add lispro 5 units with meals standing in addition to sliding scale. (4) CAD (coronary artery disease) Current Visit: Yes Status: Chronic Code(s): I25.10 - ATHSCL HEART DISEASE OF [place] CORONARY ARTERY W/O ANG PCTRS SNOMED Code(s): 65357759 Comment: Elevated troponin on admission is likely secondary to demand ischemia. She would benefit from a stress test once she recovers from this acute illness. (5) ESRD (end stage renal disease) Current Visit: Yes Status: Chronic Code(s): N18.6 - END STAGE RENAL DISEASE SNOMED Code(s): 43991976 Comment: Continue peritoneal dialysis. (6) HTN (hypertension) Current Visit: Yes Status: Chronic Code(s): I10 - ESSENTIAL (PRIMARY) HYPERTENSION SNOMED Code(s): 09053928 Comment: Increase losartan to 75mg daily to achieve better BP control. (7) PAD (peripheral artery disease) Current Visit: Yes Status: Acute Code(s): I73.9 - PERIPHERAL VASCULAR DISEASE, UNSPECIFIED SNOMED Code(s): 600025097 Comment: No acute issues at this time. INR has climbed significantly. Will decrease coumadin to 6mg tonight and follow up the INR tomorrow. (8) Gastroparesis Current Visit: Yes Status: Chronic Code(s): K31.84 - GASTROPARESIS SNOMED Code(s): 879930456 Comment: Continue phenergan prn nausea. (9) DVT prophylaxis Current Visit: Yes Status: Acute Onset Date: 06/27/14 Code(s): YSF1204 - SNOMED Code(s): 150140909 Comment: supratherapeutic INR (10) Full code status Current Visit: Yes Status: Acute Onset Date: 06/27/14 Code(s): Z78.9 - OTHER SPECIFIED HEALTH STATUS SNOMED Code(s): 560339304
[2017-02-03] MEDS ORDERED: Furosemide IV* 10 MG/ML 10 ML VIAL (100 MG) IV ONE (12:12)
--- NOTE | 2017-02-03 13:02 | CONSULT ---
Consult Consult: CRITICAL CARE MEDICINE DATE: 02/03/17 TIME: 1215 REFERRING PROVIDER: Stephan REASON/CHIEF COMPLAINT: sob HISTORY OF PRESENT ILLNESS: 36 F with uncontrolled DM & petad on PD presenting with DKA and h/o poor adherence. Had sob prior to presentation and concern for pna. Wbc up but not dramatic on admission and has improved some. 1 isolated fever during stay. Has been on levaquin. pt states she coughs occasionally with some sputum expelled. She is otherwise relatively non forthcoming and not cooperative. REVIEW OF SYSTEMS: As per HPI. PAST MEDICAL HISTORY: As per HPI & CAD, htn, gerd MEDICATIONS: Reviewed. ALLERGIES: Reviewed. multiple SOCIAL HISTORY: Reviewed. + tob FAMILY HISTORY: Noncontributory at present. PHYSICAL EXAM: Vital Signs: Reviewed. Neurologic: awake, communicates fine; nonfocal HEENT: anicteric, non injected, mmm Cardiovascular: tachy, S1 S2 Respiratory: fine rales bl and dec bases, no wheeze. tachypnea Abdomen: obese, soft Extremities: warm LABS: Reviewed. IMAGING: Reviewed. MEDICATIONS: Reviewed. ASSESSMENT/PLAN: 36 F with multiple medical ailments na dacute hypoxic resp failure- multiple factors. No overt infiltrate on cxr and on levaquin nonetheless with neg cx. Has interstial fluid and atelectasis prevalent as well, progressed post fluid here and she is unable to mobilize well given PD needs but can push that route as able; trial another dose lasix today. check phos as she may actually be deplete post dka and need replace. Already on anticoag. Not acting like an active viral ailment but could have started there. Hopefully can wean off O2. If not repeat CXR as she may be hiding an infiltrate retrocardiac and we may need to convince her to use some positive pressure with metaneb to alleviate basilar atelectasis and lingering ailment vs compliance with using flutter valve and is. small effusions will remain. Needs to help her own health. Supportive and preventative care reviewed. Care per primary Disposition: Needs ICU today Code Status: Full Critical Care Time: 30min Nolan Vail DO
[2017-02-03] MEDS: Insulin GLARGINE(*) 1 UNITS UNIT SUBCUT SCH (13:29)
[2017-02-03 13:55] LABS: Magnesium 1.1 mg/dL (1.9-2.7); Phosphorus 3.1 mg/dL (2.5-5.0)
[2017-02-03] MEDS: Mupirocin 2% OINT* TUBE TOPICAL SCH (14:02)
[2017-02-03] MEDS ORDERED: Magnesium Sulfate 2 GM IV* 2 GM/50 ML BAG IVPB ONE (14:30)
[2017-02-03] MEDS: LORazepam TAB(*) 1 MG PO PRN ×2 (16:17→22:04)
[2017-02-03] MEDS ORDERED: Warfarin TAB(*) 6 MG PO SCH (17:00)
[2017-02-03] MEDS: amLODIPine TAB* 5 MG PO SCH (18:05)
[2017-02-03] MEDS: Gabapentin CAP(*) 100 MG PO SCH (18:06)
[2017-02-03] MEDS: Omeprazole CAP* 20 MG PO SCH (18:07)
[2017-02-03] MEDS: Methadone TAB* 5 MG PO PRN (22:04)
[2017-02-04] MEDS: Morphine INJ* 4 MG/ML 1 ML CARPUJECT IV PRN ×2 (03:24→07:33)
[2017-02-04 08:43] LABS: Hematocrit 33 % (35-47); Hemoglobin 10.5 g/dl (12.0-16.0); Mean Corpuscular HGB Conc 32 g/dl (31-36); Mean Corpuscular Hemoglobin 28 pg (27-31); Mean Corpuscular Volume 86 fL (80-97); Mean Platelet Volume 8 um3 (7.4-10.4); Red Blood Count 3.82 10^6/ul (4.0-5.4); Red Cell Distribution Width 20 % (10.5-15); White Blood Count 14.1 10^3/ul (3.5-10.8)
[2017-02-04] MEDS: Insulin LISPRO* 1 UNITS UNIT SUBCUT SCH ×2 (08:43→09:10)
[2017-02-04 08:54] LABS: BUN/Creatinine Ratio 9.7 (8-20); Calcium 8.4 mg/dL (8.6-10.3); EGFR Non-African American 16.4 (>60); Potassium 3.5 mmol/L (3.5-5.0)
[2017-02-04] MEDS ORDERED: Losartan TAB* 25 MG PO SCH (09:00)
[2017-02-04] MEDS: Aspirin Low Dose CHEW TAB* 81 MG PO SCH (09:09)
[2017-02-04] MEDS: guaiFENesin ER TAB 600 MG PO SCH (09:09)
[2017-02-04] MEDS: Sertraline* 25 MG TAB PO SCH (09:09)
--- NOTE | 2017-02-04 10:49 | PN ---
Progress Note - Progress Note Date of Service: 02/04/17 Note: Time spent on discharge 50 minutes.
[2017-02-04] MEDS: Nicotine Inhaler* 10 MG AMP INH PRN (10:52)
[2017-02-04 11:08] VITALS: BP 137/88
--- NOTE | 2017-02-04 16:46 | DS ---
CC: Dr. Solis DISCHARGE SUMMARY: DATE OF ADMISSION: 02/01/17 DATE OF DISCHARGE: 02/04/17 HISTORY OF PRESENT ILLNESS: This 36-year-old woman presented with shortness of breath. She was found to have diabetic ketoacidosis on admission. She only had mild acidosis. She may have had a combination of DKA and hyperosmolar nonketotic hypoglycemia. In any event, she was treated with an insulin drip and did well. She was felt to have sepsis. She was given antibiotics. She had a febrile illness. Chest x-ray was negative and cultures were negative. She may have had bronchitis. She had respiratory failure. She was on Vapotherm for a while. On the day of discharge, her O2 saturation on 4 L was about 89% to 90% and she was quite comfortable. She has agreed to stop smoking, seemed to be motivated. At this time, she did ask to have the nicotine inhaler prescribed for her at home, which I did. I note that on admission, although she said she had taken insulin as prescribed , her boyfriend said she had not taken it for a day or so before admission. The patient's blood sugar was 85 on the day of discharge even on the lower dose of Lantus; however, I am fairly certain that her diet is not as strict at home. I have told her to go back to her old regimen of insulin and she will monitor her blood sugar. She last got Lantus at 1 p.m. the day before discharge and will not get any before discharge. She was maintained on her PD during her hospital stay. She had a mild elevation in troponin, highest being 0.23. She did not have any chest pain or signs of active cardiac ischemia through her hospital stay. Losartan was added for control of her hypertension. Budesonide and DuoNeb were prescribed for her home use nebulizer. FINAL DIAGNOSES: 1. Sepsis, possible pneumonia or other respiratory infection. 2. Respiratory failure. 3. Diabetic ketoacidosis and severe hypoglycemia. 4. Demand ischemia. 5. ESRD due to diabetic nephropathy, on peritoneal dialysis. 6. Coronary artery disease, stable. 7. Hypertension. 8. Asthma. DISCHARGE MEDICATIONS: 1. Losartan 75 mg daily. 2. Nicotine inhaler every 2 hours p.r.n. 3. Levofloxacin 750 mg once on 02/05/17. 4. Budesonide 1 mg b.i.d. 5. DuoNeb 1 neb every 4 hours p.r.n. 6. Omeprazole 40 mg h.s. 7. NovoLog insulin as prescribed. 8. Amlodipine 10 mg daily. 9. Albuterol inhaler 2 puffs every 6 hours p.r.n. 10. Glargine insulin 60 units at bedtime. 11. Aspirin 81 mg daily. 12. Methadone 5 mg every 6 hours p.r.n. 13. Promethazine 25 mg every 8 hours p.r.n. 14. Gabapentin 200 mg h.s. 15. Sertraline 25 mg daily. 16. Guaifenesin ER 600 mg b.i.d. 17. Acetaminophen 650 mg every 6 hours p.r.n. 18. Warfarin 7.5 mg daily. The patient will have an INR in 3 days. I note her INR on the day of discharge was 2.73. [id number]/[facility] #: [id number] MTDVika
== END 2017-02-04 11:45 | disposition home or self-care (01) | DRG 720 ==
LOC: ED 22:12 → ICU 02-01 00:37
PROVIDERS: ADMIT Hospitalist; ATTEND Internal Medicine
PROC: 3E1M39Z Irrigation of Peritoneal Cavity using Dialysate, Percutaneous Approach (ICD-10-PCS; principal; 2017-02-01)
DX: A41.9 Sepsis, unspecified organism (principal); J18.9 Pneumonia, unspecified organism; J96.01 Acute respiratory failure with hypoxia; E11.00 Type 2 diabetes mellitus with hyperosmolarity without nonketotic hyperglycemic-hyperosmolar coma (NKHHC); G93.41 Metabolic encephalopathy; E11.10 Type 2 diabetes mellitus with ketoacidosis without coma; E11.21 Type 2 diabetes mellitus with diabetic nephropathy; E11.42 Type 2 diabetes mellitus with diabetic polyneuropathy; I12.0 Hypertensive chronic kidney disease with stage 5 chronic kidney disease or end stage renal disease; N18.6 End stage renal disease; I24.8 Other forms of acute ischemic heart disease; I13.11 Hypertensive heart and chronic kidney disease without heart failure, with stage 5 chronic kidney disease, or end stage renal disease; F33.9 Major depressive disorder, recurrent, unspecified; R65.20 Severe sepsis without septic shock; E11.22 Type 2 diabetes mellitus with diabetic chronic kidney disease; E11.319 Type 2 diabetes mellitus with unspecified diabetic retinopathy without macular edema; E11.43 Type 2 diabetes mellitus with diabetic autonomic (poly)neuropathy; K31.84 Gastroparesis; I25.10 Atherosclerotic heart disease of native coronary artery without angina pectoris; F17.210 Nicotine dependence, cigarettes, uncomplicated; J40 Bronchitis, not specified as acute or chronic; E78.5 Hyperlipidemia, unspecified; K21.9 Gastro-esophageal reflux disease without esophagitis; R74.8 Abnormal levels of other serum enzymes; F41.9 Anxiety disorder, unspecified; Z99.2 Dependence on renal dialysis; Z79.01 Long term (current) use of anticoagulants; Z79.4 Long term (current) use of insulin; Z79.1 Long term (current) use of non-steroidal anti-inflammatories (NSAID); Z79.82 Long term (current) use of aspirin; Z79.899 Other long term (current) drug therapy; Z88.1 Allergy status to other antibiotic agents; Z88.5 Allergy status to narcotic agent; Z88.2 Allergy status to sulfonamides; Z88.8 Allergy status to other drugs, medicaments and biological substances; Z91.048 Other nonmedicinal substance allergy status; Z83.3 Family history of diabetes mellitus
CPT/HCPCS: 36415; 71010; 80048; 80053; 81003; 81015; 82248; 82947; 83036; 83605; 83735; 83930; 84100; 84484; 85025; 85027; 85610; 85730; 87040; 87070; 87086; 87205; 87502; 87641; 87899; 90945; 93005; 94640; 94760; 99406; A9270-GY; G0257; J0692; J1815; J1940; J2270; J3010; J3475

== ENCOUNTER 2017-02-07 16:48 | Emergency (ER) | payer OTHER ==
[2017-02-07 17:59] LABS: Hematocrit 35 % (35-47); Hemoglobin 11.4 g/dl (12.0-16.0); Mean Corpuscular HGB Conc 33 g/dl (31-36); Mean Corpuscular Hemoglobin 28 pg (27-31); Mean Corpuscular Volume 84 fL (80-97); Mean Platelet Volume 8 um3 (7.4-10.4); Red Blood Count 4.14 10^6/ul (4.0-5.4); Red Cell Distribution Width 19 % (10.5-15); White Blood Count 10.4 10^3/ul (3.5-10.8)
[2017-02-07 18:16] LABS: Albumin 2.7 g/dL (3.2-5.2); Calcium 8.7 mg/dL (8.6-10.3); EGFR African American 20.9 (>60); EGFR Non-African American 16.2 (>60); Globulin 3.8 g/dL (2-4); Potassium 3.4 mmol/L (3.5-5.0); Total Bilirubin 0.2 mg/dL (0.2-1.0); Total Protein 6.5 g/dL (6.4-8.9)
[2017-02-07] MEDS ORDERED: Albuterol/Ipratropium NEB.SOL* Albuterol 2.5 MG/Ipratropium 0.5 MG 3 ML INH ONE (19:53)
[2017-02-07] MEDS ORDERED: methylPREDNISolone 125 MG* 2 ML VIAL IV ONE (19:53)
[2017-02-07 20:24] LABS: PCO2 Arterial 46 mmHg (35-45)
--- NOTE | 2017-02-07 21:05 | RAD ---
HISTORY: Shortness of breath COMPARISONS: February 01, 2017 VIEWS: 1: frontal portable view of the chest at 8:26 PM FINDINGS: LINES AND TUBES: None. CARDIOMEDIASTINAL SILHOUETTE: The cardiomediastinal silhouette is normal for portable technique. PLEURA: The costophrenic angles are sharp. No pleural abnormalities are noted. LUNG PARENCHYMA: There is a mild diffuse reticular pattern with indistinct pulmonary vessels. ABDOMEN: The upper abdomen is clear. There is no subphrenic gas. BONES AND SOFT TISSUES: No bone or soft tissue abnormalities are noted. IMPRESSION: MILD PULMONARY INTERSTITIAL EDEMA
[2017-02-07 21:44] VITALS: BP 176/82
--- NOTE | 2017-02-08 01:03 | ED ---
Jose D Palacio Angela, scribed for Britton Toussaint on 02/07/17 at 1940 . Shortness of Breath - HPI Summary HPI Summary: This pt is a 36 y/o female presenting to [facility] c/o increased SOB and chest pain. Pt reports she was admitted to [facility] 1 week ago (01/31/17) for pneumonia. She was discharged home on Saturday (02/04/17). Pt states that since her discharge , she has felt increased chest pain and SOB. She notes taking one dose of Levofloxacin 750 mg on 02/05/17. Pt is currently using oxygen at home now (since 02/04/17). She is a current every day smoker (a couple of cigarettes a day). PMHx includes diabetes, kidney failure, peritoneal dialysis (everyday). - History of Current Complaint Chief Complaint: EDShortnessOfBreath Time Seen by Provider: 02/07/17 19:22 Hx Obtained From: Patient Onset/Duration: Lasting Days, Still Present Timing: Constant Associated Signs & Symptoms: Chest Pain Unrelated to Cough - and SOB - Allergy/Home Medications Allergies/Adverse Reactions: Allergies Allergy/AdvReac Type Severity Reaction Status Date / Time Heparin Allergy Intermediate pt states Verified 01/31/17 19:56 it gave her a blood clot Niacin Allergy Mild Hives Verified 01/31/17 19:56 Ropinirole [From Requip] Allergy Mild Hives Verified 01/31/17 19:56 Amoxicillin [From Augmentin] AdvReac Mild "Doesn't Verified 01/31/17 19:56 work" Clavulanic Acid AdvReac Mild "Doesn't Verified 01/31/17 19:56 [From Augmentin] work" Codeine AdvReac Mild Nausea And Verified 01/31/17 19:56 Vomiting Erythromycin AdvReac Mild "DOESN'T Verified 01/31/17 19:56 WORK" Metronidazole [From Flagyl] AdvReac Mild Nausea And Verified 01/31/17 19:56 Vomiting Morphine AdvReac Mild "Doesn't Verified 01/31/17 19:56 work" Sulfamethoxazole AdvReac Mild Nausea And Verified 01/31/17 19:56 w/Trimethoprim Vomiting [From Bactrim] plastic tape Allergy Mild Blisters Uncoded 12/04/16 06:16 PMH/Surg Hx/FS Hx/Imm Hx Endocrine/Hematology History: Reports: Hx Anticoagulant Therapy - Aspirin., Hx Blood Transfusions, Hx Diabetes, Hx Anemia - hx of - reports had tranfusion in 2013 after mi Comment Only: Hx Thyroid Disease - nodule biopsied, normal Cardiovascular History: Reports: Hx Angina, Hx Cardiac Arrest - in 2013 with CPR, Hx Cardiomegaly, Hx Coronary Artery Disease, Hx Deep Vein Thrombosis, Hx Hypercholesterolemia, Hx Hypertension, Hx Myocardial Infarction, Other Cardiovascular Problems/Disorders - hyperlipidemia, CAD Denies: Hx Congestive Heart Failure, Hx Pacemaker/ICD, Hx Valvular Heart Disease Respiratory History: Reports: Hx Asthma, Hx Chronic Obstructive Pulmonary Disease (COPD) - smoker, Hx Sleep Apnea - pt reports md thinks, but no official testing done yet, Other Respiratory Problems/Disorders - acute respipatory failure with hypoxia - jan 2016 Denies: Hx Lung Cancer, Hx Pneumonia, Hx Pulmonary Embolism GI History: Reports: Hx Gastroesophageal Reflux Disease, Other GI Disorders - GASTROPARESIS - TAKING OMEPRAZOLE, reglan and zofran Denies: Hx Gall Bladder Disease, Hx Gastrointestinal Bleed, Hx Ulcer, Hx Urosepsis History: Reports: Hx Acute Renal Failure, Hx Chronic Renal Failure - ESRD on PD, Hx Dialysis - PERITONEAL, Hx Kidney Stones, Hx Renal Disease - ESRD on home peritoneal dialysis , Other Problems/Disorders Musculoskeletal History: Reports: Hx Arthritis - back, hips, Hx Back Problems - Sciatica and Herniated L3 disk, Other Musculoskeletal History - partial amputation of toes/foot Sensory History: Reports: Hx Eye Prosthesis - left, 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, Hx Vision Problem Denies: Hx Contacts or Glasses, Hx Hearing Aid Opthamlomology History: Reports: Hx Eye Prosthesis - left, 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, Hx Vision Problem Denies: Hx Contacts or Glasses Neurological History: Reports: Other Neuro Impairments/Disorders - neuropathy Denies: Hx Transient Ischemic Attacks (TIA) Psychiatric History: Reports: Hx Anxiety, Hx Depression, Hx Bipolar Disorder Denies: Hx Eating Disorder, Hx Panic Disorder, Hx Schizophrenia, Hx of Violent Episodes Against Others - Cancer History Cancer Type, 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 MELANOMA REMOVED FROM [facility] 2012 (PROCEDURE DONE 4X);. CARDIAC CATH 2013 - NO STENTS;. LEFT WRIST FISTULA PLACEMENT ([facility]) 2013;. HEMODIALYSIS CATH RIGHT CHEST WALL 2013;. PERITONEAL DIALYSIS CATH 03/2014;. CHEST WALL CATH REMOVAL 08/2015 [facility];. RIGHT GREAT TOE AMPUTATION, [facility] 05/2015;. PLACEMENT RIGHT JUGULAR TESIO HEMODIALYSIS CATHETER [facility] 10/22/2015;. REMOVAL OF JUGULAR CATH - OCT 2015. CARDIAC CATH - stentsx2 right leg. PARTIAL AMPUTATION RIGHT TOES 06/2016. 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 Completed suicide to sister. - Social History Alcohol Use: unknown Hx Substance Use: No Substance Use Type: Reports: None, Other Substance Use Comment - Amount & Last Used: METHADONE (noted in chart, not confirmed still prescribed in 11/2016) Hx Tobacco Use: Yes Smoking Status (MU): Heavy Every Day Tobacco Smoker Type: Cigarettes Amount Used/How Often: 1 PPD Length of Time of Smoking/Using Tobacco: 20 YEARS Have You Smoked in the Last Year: Yes Review of Systems Negative: Fever, Chills Positive: Chest Pain Positive: Shortness Of Breath Musculoskeletal: Negative Skin: Negative Neurological: Negative All Other Systems Reviewed And Are Negative: Yes Physical Exam - Summary Physical Exam Summary: Appearance: Well appearing, no pain distress Skin: warm, dry, reflects adequate perfusion Head/face: normal Eyes: EOMI, HILLARY ENT: normal Neck: supple, nontender Respiratory: Bilateral wheezes, breath sounds present Cardiovascular: RRR, pulses symmetrical Abdomen: nontender, soft Bowel: present Musculoskeletal: strength/ROM intact. Right foot amputation. Neuro: normal, sensory motor intact, A&Ox3 Triage Information Reviewed: Yes Vital Signs On Initial Exam: Initial Vitals Temp Pulse Resp BP Pulse Ox 98.2 F 116 24 145/110 91 02/07/17 16:51 02/07/17 16:51 02/07/17 16:51 02/07/17 16:51 02/07/17 16:51 Vital Signs Reviewed: Yes Diagnostics - Vital Signs Vital Signs Temp Pulse Resp BP Pulse Ox 02/07/17 18:43 107 88 02/07/17 18:42 170/93 02/07/17 16:51 98.2 F 116 24 145/110 91 - Laboratory Lab Results: Lab Results 02/07/17 02/07/17 02/07/17 Range/Units 17:28 17:28 17:28 WBC 10.4 (3.5-10.8) 10^3/ul RBC 4.14 (4.0-5.4) 10^6/ul Hgb 11.4 L (12.0-16.0) g/dl Hct 35 (35-47) % MCV 84 (80-97) fL MCH 28 (27-31) pg MCHC 33 (31-36) g/dl RDW 19 H (10.5-15) % Plt Count 492 H D (150-450) 10^3/ul MPV 8 (7.4-10.4) um3 Neut % (Auto) 78.8 (38-83) % Lymph % (Auto) 11.2 L (25-47) % [place] % (Auto) 4.9 (1-9) % Eos % (Auto) 4.4 (0-6) % Baso % (Auto) 0.7 (0-2) % Absolute Neuts (auto) 8.2 H (1.5-7.7) 10^3/ul Absolute Lymphs (auto) 1.2 (1.0-4.8) 10^3/ul Absolute Monos (auto) 0.5 (0-0.8) 10^3/ul Absolute Eos (auto) 0.5 (0-0.6) 10^3/ul Absolute Basos (auto) 0.1 (0-0.2) 10^3/ul Absolute Nucleated RBC 0 10^3/ul Nucleated RBC % 0 Sodium 135 (133-145) mmol/L Potassium 3.4 L (3.5-5.0) mmol/L Chloride 99 L (101-111) mmol/L Carbon Dioxide 29 (22-32) mmol/L Anion Gap 7 (2-11) mmol/L BUN 29 H (6-24) mg/dL Creatinine 3.21 H (0.51-0.95) mg/dL Est GFR ( Amer) 20.9 (>60) Est GFR (Non-Af Amer) 16.2 (>60) BUN/Creatinine Ratio 9.0 (8-20) Glucose 314 H (70-100) mg/dL Lactic Acid 1.5 (0.5-2.0) mmol/L Calcium 8.7 (8.6-10.3) mg/dL Total Bilirubin 0.20 (0.2-1.0) mg/dL AST 7 L (13-39) U/L ALT 7 (7-52) U/L Alkaline Phosphatase 80 (34-104) U/L Total Protein 6.5 (6.4-8.9) g/dL Albumin 2.7 L (3.2-5.2) g/dL Globulin 3.8 (2-4) g/dL Albumin/Globulin Ratio 0.7 L (1-3) Lipase 29 (11.0-82.0) U/L Result Diagrams: 02/07/17 17:28 02/07/17 17:28 Lab Statement: Any lab studies that have been ordered have been reviewed, and results considered in the medical decision making process. - Radiology Chest XR Xray Interpretation: Positive (See Comments) - IMPRESSION: Mild pulmonary interstitial edema. Dr. Toussaint has reviewed this radiology report. Radiology Interpretation Completed By: Radiologist - EKG 2003 Cardiac Rate: Tachycardia EKG Rhythm: Sinus Tachycardia - at 102 bpm EKG Interpretation: No acute changes. Re-Evaluation - Re-Evaluation First Eval Re-Evaluation Time: 21:18 Comment: I reviewed the lab and XR results with the pt. Second Eval Re-Evaluation Time: 21:29 Comment: The pt is declining admission. She would like to leave A. Course/Dx - Course Course Of Treatment: Pt is a 36 y/o female, with recent discharge from [facility] (01/11) for pneumonia, presents with increased SOB and chest pain for the last 3 days. Bloodwork, EKG, and chest XR were obtained. Chest XR shows mild pulmonary interstitial edema. I discussed the pt's case with Dr. Daigle, hospitalist, who has agreed to admit the pt. The pt does not want to be admitted and is requesting to leave AMA. Pt understands the risks of leaving AMA. - Diagnoses Provider Diagnoses: Exacerbation of asthma, Renal failure, Hypoxia, History of pneumonia - Physician Notifications Discussed Care of Patient With: Tash Daigle Time Discussed With Above Provider: 21:11 Instructed by Provider To: Other - I discussed the pt's case with Dr. Daigle, who has agreed to accept the pt. Discharge - Discharge Plan Condition: Stable Disposition: AGAINST MEDICAL ADVICE Referrals: Aishwarya Solis MD [Primary Care Provider] - The documentation as recorded by the Jose D sexton Angela accurately reflects the service I personally performed and the decisions made by , Britton Toussaint.
== END 2017-02-07 21:45 | disposition left against medical advice (07) ==
LOC: ED 16:48
DX: J45.901 Unspecified asthma with (acute) exacerbation (principal); N19 Unspecified kidney failure; F17.210 Nicotine dependence, cigarettes, uncomplicated; Z87.01 Personal history of pneumonia (recurrent); R07.9 Chest pain, unspecified; R06.02 Shortness of breath; R05 Cough; R09.02 Hypoxemia
CPT/HCPCS: 36415; 36600; 71010; 80053; 82803; 83605; 83690; 83880; 85025; 93005; 94640; 99283; A9270-GY; J2930

== ENCOUNTER 2017-02-18 12:19 | Inpatient (IN) | payer OTHER ==
[2017-02-18] MEDS ORDERED: HYDROmorphone INJ* 2 MG/ML CARPUJECT SYRINGE IV SLOW PU ONE ×2 (12:30→13:51)
[2017-02-18] MEDS ORDERED: Ondansetron INJ* 2 MG/ML VIAL IV ONE ×2 (12:30→13:52)
[2017-02-18] MEDS ORDERED: Albuterol 2.5 MG/3 ML NEB.SOL* (0.083%) INH ONE (12:52)
[2017-02-18 12:53] LABS: ABS Basophils 0.1 10^3/ul (0-0.2); ABS Eosinophils 0.1 10^3/ul (0-0.6); ABS Monocytes 0.3 10^3/ul (0-0.8); ABS Neutrophils 18.8 10^3/ul (1.5-7.7); ABS Nucleated RBC 0.01 10^3/ul; Eosinophil % 0.5 % (0-6); Hematocrit 34 % (35-47); Hemoglobin 11.1 g/dl (12.0-16.0); Lymphocyte % 4.7 % (25-47); Mean Corpuscular HGB Conc 33 g/dl (31-36); Mean Corpuscular Hemoglobin 27 pg (27-31); Mean Corpuscular Volume 82 fL (80-97); Mean Platelet Volume 8 um3 (7.4-10.4); Nucleated Red Blood Cells % 0; Platelet Count 551 10^3/ul (150-450); Red Blood Count 4.11 10^6/ul (4.0-5.4); Red Cell Distribution Width 18 % (10.5-15); White Blood Count 20.3 10^3/ul (3.5-10.8)
[2017-02-18 13:00] LABS: INR 1.95 (0.77-1.02)
[2017-02-18 13:11] LABS: EGFR Non-African American 16.6 (>60)
--- NOTE | 2017-02-18 13:55 | RAD ---
INDICATION: Abdominal and chest pain and wheezing, recent pneumonia. COMPARISON: Comparison is made with a prior chest x-ray study from February 07, 2017. TECHNIQUE: A portable view of the chest was obtained. FINDINGS: Cardiac and mediastinal contours appear to be within normal limits. There are small infiltrates in the left upper lobe and at both lung bases which appear unchanged. No pleural effusion is seen. IMPRESSION: SMALL BILATERAL INFILTRATES, UNCHANGED.
--- NOTE | 2017-02-18 13:58 | ED ---
Yuki Palacio Abhishek, scribed for Rosita Harrell MD on 02/18/17 at 1257 . HPI Chest Pain - HPI Summary HPI Summary: This patient is a 36 year old F BIBA with a chief complaint of CP and abdominal pain since last night (02/17/17). Pt was given 324 mg aspirin in ambulance as well as NTG sublingual 2x. Pain was alleviated from an initial 10 to 2. Pt did not receive respiratory treatment enroute. [place] [facility] [place] dx of pneumonia with sepsis, DKA with ICU admission. Pt was discharged [place] [facility] [place]11 with dx pneumonia and continued on Levaquin. Pt state she did all of her exchanges last night and this morning, she is able to make a small amount of urine, and she has clear dialysis fluids. Pt was reports prior dx of gastritis at [facility] as well as she is due for "an MRI take of her stomach". At home, pt is on 5L of oxygen, ambulates only with a walker and wheelchair. According to the patient, her boyfriend will bring the rest of her exchanges. The patient rates the abd pain 8/10 in severity, states some of her ducts are dilated, but she does not know which. Symptoms aggravated by coughing and movement. Symptoms alleviated by aspirin and NTG. Patient reports irregular menstrual cycle, SOB, abd pain (onset 02/17/17 and constant through 02/18/17 morning), nausea, vomiting (foamy, clear), and leg pain (aching). Patient denies fever. Pt requires peritoneal dialysis and does exchanges 3 times a day. - History of Current Complaint Chief Complaint: EDAbdPain Time Seen by Provider: 02/18/17 12:30 Hx Obtained From: Patient, Medical Records Hx Last Menstrual Period: irregular Onset/Duration: Started Days Ago - last pm, Atraumatic, Still Present Time of Onset: 19:00 Timing: Constant, Lasting Hours Initial Severity: Severe Current Severity: Severe Pain Intensity: 8 Pain Scale Used: 0-10 Numeric Chest Pain Location: Mid Sternal Chest Pain Radiates: No Character: Pressure/Squeezing Aggravating Factor(s): Movement, Other: - coughing Alleviating Factor(s): Medication - aspirin, NTG 123 - x 2 given by EMS Associated Signs and Symptoms: Positive: Chest Pain, Shortness of Breath, Nausea , Cough, Abdominal Pain, Vomiting - foamy and clear, Other: - leg pain. Negative: Fever Related History: Similar Episode/Dx as: - sepsis, pneumonia, DKA, Obesity - Additional Pertinent History Primary Care Physician: [id number] - Allergy/Home Medications Allergies/Adverse Reactions: Allergies Allergy/AdvReac Type Severity Reaction Status Date / Time Heparin Allergy Intermediate pt states Verified 01/31/17 19:56 it gave her a blood clot Niacin Allergy Mild Hives Verified 01/31/17 19:56 Ropinirole [From Requip] Allergy Mild Hives Verified 01/31/17 19:56 Amoxicillin [From Augmentin] AdvReac Mild "Doesn't Verified 01/31/17 19:56 work" Clavulanic Acid AdvReac Mild "Doesn't Verified 01/31/17 19:56 [From Augmentin] work" Codeine AdvReac Mild Nausea And Verified 01/31/17 19:56 Vomiting Erythromycin AdvReac Mild "DOESN'T Verified 01/31/17 19:56 WORK" Metronidazole [From Flagyl] AdvReac Mild Nausea And Verified 01/31/17 19:56 Vomiting Morphine AdvReac Mild "Doesn't Verified 01/31/17 19:56 work" Sulfamethoxazole AdvReac Mild Nausea And Verified 01/31/17 19:56 w/Trimethoprim Vomiting [From Bactrim] plastic tape Allergy Mild Blisters Uncoded 12/04/16 06:16 PMH/Surg Hx/FS Hx/Imm Hx Previously Healthy: No Endocrine/Hematology History: Reports: Hx Anticoagulant Therapy - Aspirin., Hx Blood Transfusions, Hx Diabetes, Hx Anemia - hx of - reports had tranfusion in 2013 after mi Comment Only: Hx Thyroid Disease - nodule biopsied, normal Cardiovascular History: Reports: Hx Angina, Hx Cardiac Arrest - in 2013 with CPR, Hx Cardiomegaly, Hx Coronary Artery Disease, Hx Deep Vein Thrombosis, Hx Hypercholesterolemia, Hx Hypertension, Hx Myocardial Infarction, Other Cardiovascular Problems/Disorders Denies: Hx Congestive Heart Failure, Hx Pacemaker/ICD, Hx Valvular Heart Disease Respiratory History: Reports: Hx Asthma, Hx Chronic Obstructive Pulmonary Disease (COPD) - smoker, Hx Sleep Apnea - pt reports md thinks, but no official testing done yet, Other Respiratory Problems/Disorders - acute respipatory failure with hypoxia - jan 2016 Denies: Hx Lung Cancer, Hx Pneumonia, Hx Pulmonary Embolism GI History: Reports: Hx Gastroesophageal Reflux Disease, Other GI Disorders - GASTROPARESIS - TAKING OMEPRAZOLE, reglan and zofran Denies: Hx Gall Bladder Disease, Hx Gastrointestinal Bleed, Hx Ulcer, Hx Urosepsis History: Reports: Hx Chronic Renal Failure - ESRD on PD, Hx Dialysis - PERITONEAL, Hx Kidney Stones Musculoskeletal History: Reports: Hx Arthritis - back, hips, Hx Back Problems - Sciatica and Herniated L3 disk, Other Musculoskeletal History - partial amputation of toes/foot Sensory History: Reports: Hx Eye Prosthesis - left, 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, Hx Vision Problem Denies: Hx Contacts or Glasses, Hx Hearing Aid Opthamlomology History: Reports: Hx Eye Prosthesis - left, 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, Hx Vision Problem Denies: Hx Contacts or Glasses Neurological History: Reports: Other Neuro Impairments/Disorders - neuropathy Denies: Hx Transient Ischemic Attacks (TIA) Psychiatric History: Reports: Hx Anxiety, Hx Depression, Hx Bipolar Disorder Denies: Hx Eating Disorder, Hx Panic Disorder, Hx Schizophrenia, Hx of Violent Episodes Against Others - Cancer History Cancer Type, 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 MELANOMA REMOVED FROM [facility] 2012 (PROCEDURE DONE 4X);. CARDIAC CATH 2014 - NO STENTS;. LEFT WRIST FISTULA PLACEMENT ([facility]) 2013;. HEMODIALYSIS CATH RIGHT CHEST WALL 2013;. PERITONEAL DIALYSIS CATH 03/2014;. [place]ST W[place] C[place] [facility]. RIGHT GREAT TOE [place]UT[place], [facility] 05/2015;. PLACEMENT RIGHT JUGULAR TESIO HEMODIALYSIS CATHETER [facility] 10/22/2015;. REMOVAL OF JUGULAR CATH - OCT 2015. CARDIAC CATH - stentsx2 right leg. PARTIAL AMPUTATION RIGHT TOES 06/2016. 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 Completed suicide to sister. - Social History Occupation: Disabled Lives: With Family Alcohol Use: None Hx Substance Use: No Substance Use Type: Reports: None, Other Substance Use Comment - Amount & Last Used: METHADONE (noted in chart, not confirmed still prescribed in 11/2016) Hx Tobacco Use: Yes Smoking Status (MU): Former Smoker - quit 02/13/17 Type: Cigarettes Amount Used/How Often: 1 PPD Length of Time of Smoking/Using Tobacco: 20 YEARS Have You Smoked in the Last Year: Yes Review of Systems Negative: Fever Eyes: Negative ENT: Negative Positive: Chest Pain Positive: Shortness Of Breath, Cough Positive: Abdominal Pain, Vomiting - foamy and clear, Nausea Genitourinary: Other - irregular menstrual period Positive: other - peritoneal dialysis fluid clear, still makes some urine Positive: Other - leg pain Skin: Negative Neurological: Negative Psychological: Normal All Other Systems Reviewed And Are Negative: Yes Physical Exam - Summary Physical Exam Summary: Appearance: Chronically ill appearing, Obese, mild pain distress Skin: keller color, sallow, warm, dry. Head: Normal Head/Face inspection Eyes: prosthetic eye on left ENT: Normal Neck: Supple, no nodes, no JVD Respiratory: expiratory wheezes throughout Cardio: RRR, No murmur, tachycardia, brisk capillary refill Abdomen: Tenckhoff catheter in the right lower quadrant, bandaged , nontender, bandage is dry and intact Diffuse upper abd pain, no guarding, no rebound, no masses Bowel sounds: present Musculoskeletal: Strength Intact/ ROM intact; Amputation of the right forefoot and toes. No edema, no calf tenderness Neuro: Alert, muscle tone normal, facial symmetry, speech normal, sensory/motor intact, prosthetic eye on left Psychological: Normal Triage Information Reviewed: Yes Vital Signs On Initial Exam: Initial Vitals Temp Pulse Resp BP Pulse Ox 97.9 F 107 14 155/98 98 02/18/17 12:31 02/18/17 12:31 02/18/17 12:31 02/18/17 12:31 02/18/17 12:31 Vital Signs Reviewed: Yes - Ronald Coma Scale Coma Scale Total: 15 Diagnostics - Vital Signs Vital Signs Temp Pulse Resp BP Pulse Ox 02/18/17 12:40 104 14 95 02/18/17 12:38 95 02/18/17 12:31 97.9 F 107 14 155/98 98 - Laboratory Lab Results: Lab Results 02/18/17 02/18/17 02/18/17 Range/Units 12:42 12:42 12:42 WBC 20.3 H (3.5-10.8) 10^3/ul RBC 4.11 (4.0-5.4) 10^6/ul Hgb 11.1 L (12.0-16.0) g/dl Hct 34 L (35-47) % MCV 82 (80-97) fL MCH 27 (27-31) pg MCHC 33 (31-36) g/dl RDW 18 H (10.5-15) % Plt Count 551 H D (150-450) 10^3/ul MPV 8 (7.4-10.4) um3 Neut % (Auto) 92.6 H (38-83) % Lymph % (Auto) 4.7 L (25-47) % Morrill % (Auto) 1.6 (1-9) % Eos % (Auto) 0.5 (0-6) % Baso % (Auto) 0.6 (0-2) % Absolute Neuts (auto) 18.8 H (1.5-7.7) 10^3/ul Absolute Lymphs (auto) 1.0 (1.0-4.8) 10^3/ul Absolute Monos (auto) 0.3 (0-0.8) 10^3/ul Absolute Eos (auto) 0.1 (0-0.6) 10^3/ul Absolute Basos (auto) 0.1 (0-0.2) 10^3/ul Absolute Nucleated RBC 0.01 10^3/ul Nucleated RBC % 0 INR (Anticoag Therapy) (0.77-1.02) APTT (26.0-36.3) seconds Sodium 135 (133-145) mmol/L Potassium 3.9 (3.5-5.0) mmol/L Chloride 100 L (101-111) mmol/L Carbon Dioxide 28 (22-32) mmol/L Anion Gap 7 (2-11) mmol/L BUN 28 H (6-24) mg/dL Creatinine 3.15 H (0.51-0.95) mg/dL Est GFR ( Amer) 21.3 (>60) Est GFR (Non-Af Amer) 16.6 (>60) BUN/Creatinine Ratio 8.9 (8-20) Glucose 253 H (70-100) mg/dL Lactic Acid 1.2 (0.5-2.0) mmol/L Calcium 8.8 (8.6-10.3) mg/dL Magnesium 1.3 L (1.9-2.7) mg/dL Total Bilirubin 0.30 (0.2-1.0) mg/dL AST 7 L (13-39) U/L ALT 6 L (7-52) U/L Alkaline Phosphatase 87 (34-104) U/L Ammonia (16-53) mol/L Total Creatine Kinase 109 (10-223) U/L Troponin I 0.04 H* (<0.04) ng/mL C-Reactive Protein 33.42 H (< 5.00) mg/L B-Natriuretic Peptide ( - 100) pg/mL Total Protein 6.4 (6.4-8.9) g/dL Albumin 2.8 L (3.2-5.2) g/dL Globulin 3.6 (2-4) g/dL Albumin/Globulin Ratio 0.8 L (1-3) Amylase < 10 L (29-103) U/L Lipase 23 (11.0-82.0) U/L Beta HCG, Quant 1.41 mIU/mL 02/18/17 02/18/17 Range/Units 12:42 12:42 WBC (3.5-10.8) 10^3/ul RBC (4.0-5.4) 10^6/ul Hgb (12.0-16.0) g/dl Hct (35-47) % MCV (80-97) fL MCH (27-31) pg MCHC (31-36) g/dl RDW (10.5-15) % Plt Count (150-450) 10^3/ul MPV (7.4-10.4) um3 Neut % (Auto) (38-83) % Lymph % (Auto) (25-47) % Morrill % (Auto) (1-9) % Eos % (Auto) (0-6) % Baso % (Auto) (0-2) % Absolute Neuts (auto) (1.5-7.7) 10^3/ul Absolute Lymphs (auto) (1.0-4.8) 10^3/ul Absolute Monos (auto) (0-0.8) 10^3/ul Absolute Eos (auto) (0-0.6) 10^3/ul Absolute Basos (auto) (0-0.2) 10^3/ul Absolute Nucleated RBC 10^3/ul Nucleated RBC % INR (Anticoag Therapy) 1.95 H (0.77-1.02) APTT 41.8 H (26.0-36.3) seconds Sodium (133-145) mmol/L Potassium (3.5-5.0) mmol/L Chloride (101-111) mmol/L Carbon Dioxide (22-32) mmol/L Anion Gap (2-11) mmol/L BUN (6-24) mg/dL Creatinine (0.51-0.95) mg/dL Est GFR ( Amer) (>60) Est GFR (Non-Af Amer) (>60) BUN/Creatinine Ratio (8-20) Glucose (70-100) mg/dL Lactic Acid (0.5-2.0) mmol/L Calcium (8.6-10.3) mg/dL Magnesium (1.9-2.7) mg/dL Total Bilirubin (0.2-1.0) mg/dL AST (13-39) U/L ALT (7-52) U/L Alkaline Phosphatase (34-104) U/L Ammonia 46 (16-53) mol/L Total Creatine Kinase (10-223) U/L Troponin I (<0.04) ng/mL C-Reactive Protein (< 5.00) mg/L B-Natriuretic Peptide 244 H ( - 100) pg/mL Total Protein (6.4-8.9) g/dL Albumin (3.2-5.2) g/dL Globulin (2-4) g/dL Albumin/Globulin Ratio (1-3) Amylase (29-103) U/L Lipase (11.0-82.0) U/L Beta HCG, Quant mIU/mL Result Diagrams: 02/18/17 12:42 02/18/17 12:42 Lab Statement: Any lab studies that have been ordered have been reviewed, and results considered in the medical decision making process. - Radiology Chest X-ray Radiology Interpretation Completed By: Radiologist - Chest X-ray reveals SMALL BILATERAL INFILTRATES, UNCHANGED. ED physician has reviewed this radiology report. - EKG 1239 EKG Rhythm: Sinus Tachycardia - [address] Segment: Non-Specific EKG Interpretation: Time 12:39, normal AV IV CT, normal axis, normal PVC, normal QTc EKG Comparison: No Significant Change - A prior EKG on 02/07/17 reveals no significant changes Re-Evaluation - Re-Evaluation 1335 Re-Evaluation Time: 13:35 Change: Unchanged Comment: a ReEval at 1330 reveals tachycardia of 112 bpm and a 155/92 blood pressure reading. O2 stat is 93% on 5L. Respirations are 15 and have not wavered. Pt's boyfriend has not arrived with dialysis equipment and at this moment we can not examine peritoneal dialysis fluid for infection. CP is currently rated at 0 and pt denies cholecystectomy in the past . Second Eval Re-Evaluation Time: 13:50 - Pt requests more for pain. Realizing with ESRD, these doses of dilaudid will last a very long time. Change: Unchanged Chest Pain Course/Dx - Course Course Of Treatment: We are aware of the troponin levels at 1313, 0.04, higher than recent. Can be related to CAD, can be marker for inflammation, can be associated with her ESRD. Will treat it seriously since it is higher than in the past. Consult Dr. Mcdowell, hospitalist. Agrees to admit. Of note wbc count is also increased to 20, from 10 noted on 02/07/17, suggesting infection somewhere. With pt's recent sepsis and pneumonia, the elevated wbc count is concerning for serious infection, another indication for admission. Dr. Mcdowell agrees. Regarding rima, hospitalist and I will review what best imaging would benefit pt's evaluation. Pt is not febrile at this time. Is requiring high oxygen concentration. Official xray shows small bilateral infiltrates, unchanged. Discussed with Hortencia Jimenez NP, hold antibiotics at this time. Pt is NOT septic at this time. - Chest Pain Differential Diagnosis/HQI/PQRI: ACS, Angina, Chest Wall, GI Disease, Lower Respiratory Infection, Pulmonary Embolism - Diagnoses Provider Diagnoses: Abdominal pain, Chest pain, Elevated troponin, Leukocytosis - Provider Notifications Discussed Care Of Patient With: Quinton Mcdowell Time Discussed With Above Provider: 13:40 Instructed by Provider To: Admit As Inpatient Discharge - Discharge Plan Condition: Stable Disposition: ADMITTED TO [facility] Referrals: Aishwarya Solis MD [Primary Care Provider] - The documentation as recorded by the Yuki sexton Abhishek accurately reflects the service I personally performed and the decisions made by , Rosita Harrell MD.
[2017-02-18] MEDS ORDERED: Nicotine Inhaler* 10 MG AMP INH PRN (14:26)
[2017-02-18] MEDS ORDERED: Acetaminophen TAB* 325 MG PO PRN (14:26)
[2017-02-18] MEDS ORDERED: Albuterol/Ipratropium NEB.SOL* Albuterol 2.5 MG/Ipratropium 0.5 MG 3 ML INH PRN (14:26)
[2017-02-18] MEDS ORDERED: Promethazine TAB* 25 MG PO PRN (14:26)
[2017-02-18] MEDS ORDERED: Albuterol HFA INHALER* 8 gm MDI INH PRN (14:26)
[2017-02-18] MEDS ORDERED: Dextrose 50% Syringe 50 ML* 25 GM/50 ML SYRINGE IV PUSH PRN (14:29)
[2017-02-18] MEDS ORDERED: Fluconazole 100 MG TAB* TAB PO SCH (15:00)
[2017-02-18] MEDS: Gabapentin CAP(*) 100 MG PO SCH (17:08)
[2017-02-18] MEDS: Methadone TAB* 5 MG PO PRN (17:09)
[2017-02-18] MEDS: amLODIPine TAB* 5 MG PO SCH (17:11)
[2017-02-18] MEDS: Omeprazole CAP* 20 MG PO SCH (17:11)
[2017-02-18] MEDS: HYDROmorphone INJ* 2 MG/ML CARPUJECT SYRINGE IV SLOW PU PRN ×3 (18:04→21:55)
[2017-02-18] MEDS: Ondansetron INJ* 2 MG/ML VIAL IV PRN ×2 (18:16→21:53)
[2017-02-18] MEDS: Insulin LISPRO* 1 UNITS UNIT SUBCUT SCH (18:16)
--- NOTE | 2017-02-18 19:59 | HP ---
CC: Dr. Solis * [facility] MEDICINE HISTORY AND PHYSICAL: DATE OF ADMISSION: 02/18/17 PRIMARY CARE PHYSICIAN: Dr. Solis. ATTENDING PHYSICIAN: Dr. Delonte Mcdowell * (dictation provided by Orlando Jimenez NP). CHIEF COMPLAINT: Upper abdominal pain with nausea and vomiting. HISTORY OF PRESENT ILLNESS: Ms. Wright is a 36-year-old female with past medical history of insulin-dependent type 2 diabetes associated with gastroparesis; diabetic end-stage renal disease, on peritoneal dialysis; peripheral microvasculopathy; right transmetatarsal amputation. She also has a history of coronary artery disease with peripheral arterial disease, status post stent to the right lower extremity. She has hypertension, hyperlipidemia, asthma, tobacco abuse, and currently is on 5 L nasal cannula routinely at home. She has had multiple admissions to our hospital and workup outpatient for ongoing episodes of upper abdominal pain. She presents today to the hospital again complaining of upper abdominal pain associated with nausea and vomiting. Ms. Wright states that these symptoms are exactly as they have been over the past several months. She reports they happen intermittently but that there is no clear inciting cause. They are associated with feeling tired, having chills , having hot flashes, feeling sweaty, and having upper abdominal pain associated with nausea and vomiting. These symptoms returned again last night at 10 p.m. that persisted through the evening. Therefore, she presented to the emergency room today because she could not tolerate oral intake and the pain was very severe. Her workup for this has included an upper endoscopy, which she reports showed gastritis only for which she is on omeprazole. She has also had chest, abdomen, and pelvis CTA in December 2016 and abdomen and pelvis CT, 12/21/16. She reports that the only positive finding has been a possible dilated duct for which she was planned to have an outpatient MRI at [facility]. Her last admission to our hospital was with discharge on 02/04/17 after being treated for pneumonia. She denies cough. She states she is on her baseline 5 L nasal cannula. She denies shortness of breath. She denies chest pain. On further questioning, Ms. Wright notes that she has had "suspicion for a yeast infection" with copious white discharge. She denies itching to the vagina or vulva. She reports not being sexually active since developing these symptoms. She reports continued menstruation, which is erratic. She has been continuing her PD dialysis per routine. In the emergency room, Ms. Wright had white blood cell count that was elevated to 20.3, though she has had elevations of her white count, this is the highest we have seen from her since last year, at which time, she had had shortness of breath of unclear etiology. Her CRP is 33.42. Her amylase is less than 10. Her LFTs are low. Her chest x-ray shows persistent small bilateral infiltrates , which are unchanged. Her vital signs are stable. She is afebrile. PAST MEDICAL HISTORY: 1. Type 2 diabetes, which is insulin dependent. 2. Gastroparesis. 3. End-stage renal disease, on peritoneal dialysis. 4. Coronary artery disease. 5. Peripheral arterial dialysis with right lower extremity stenting. 6. History of pneumonia discharge from our hospital on 02/04/17. 7. Chronic hypoxic respiratory failure with 5 L nasal cannula usage at home. 8. Right transmetatarsal amputation. 9. Hypertension. 10. Hyperlipidemia. 11. Asthma. 12. History of tobacco abuse. 13. History of vulvar malignant melanoma. 14. GERD. 15. Depression. 16. Anxiety. MEDICATIONS: 1. Budesonide 1 mg inhaled b.i.d. 2. NovoLog insulin with meals p.r.n. 3. Lantus insulin 6 units subcutaneously at bedtime. 4. Losartan 75 mg p.o. daily. 5. Acetaminophen 650 mg p.o. q.6 hours p.r.n. 6. Albuterol inhaler 2 puffs inhaled q.6 hours p.r.n. 7. Albuterol with ipratropium nebulizer, 1 nebulizer q.4 hours p.r.n. 8. Amlodipine 10 mg p.o. q.p.m. 9. Aspirin 81 mg p.o. daily. 10. Gabapentin 200 mg p.o. q.p.m. 11. Methadone 5 mg p.o. q.6 hours p.r.n. 12. Nicotine inhaler 10 mg inhaled q.2 hours p.r.n. 13. Omeprazole 40 mg p.o. q.p.m. 14. Promethazine 25 mg p.o. q.8 hours p.r.n. 15. Sertraline 25 mg p.o. daily. 16. Warfarin 7.5 mg p.o. daily. ALLERGIES: HEPARIN, NIACIN, ROPINIROLE, AMOXICILLIN, CLAVULANIC ACID, CODEINE, ERYTHROMYCIN, METRONIDAZOLE, MORPHINE, BACTRIM, PLASTIC TAPE. FAMILY HISTORY: Strongly positive for diabetes. SOCIAL HISTORY: The patient states she has cut down to less than [id number]- day smoking and has strong intention to quit smoking in the New Year. She denies any alcohol or drug use. She lives with her boyfriend, who is the healthcare proxy. REVIEW OF SYSTEMS: A 14-point review of systems was completed with Ms. Wright and all those not mentioned above were negative. PHYSICAL EXAMINATION GENERAL: Ms. Wright is lying in the bed. She is in no acute distress. Her boyfriend is at the bedside. VITAL SIGNS: Temperature 97.9, heart rate 98, respiratory rate 13, O2 saturation 94% on 5 L nasal cannula, blood pressure 141/77. LUNGS: Clear to auscultation bilaterally with no accessory muscle use and good aeration. HEART: S1, S2. No murmur, rub, or gallop, and regular. ABDOMEN: Soft. There is mild tenderness to palpation in the upper abdomen, but there is no rebound, no guarding. : Pelvic exam showed the patient has copious white curd-like discharge from the vagina. She is not able to visualize the cervix, but she had no tenderness with palpation of the cervix. No other lesions were noted. EXTREMITIES: No cyanosis or edema. NEURO: She is alert. She is oriented x3. She moves all extremities equally. There is no facial asymmetry or focal weakness. Extraocular movements are intact. SKIN: The patient has a well-healed scar to her right foot at the site of her transmetatarsal amputation. No erythema. No drainage. No other skin breakdown is noted. DIAGNOSTIC STUDIES/LAB DATA: Sodium 135, potassium 3.9, chloride 100, serum bicarbonate 28, BUN 28, creatinine 3.15, glucose 253, lactic acid 1.2, magnesium 1.3. AST 7, ALT 6, total bilirubin is 0.3, alk phos 87. Ammonia 46. Troponin 0.04. CRP 33.42. BNP 244. Amylase less than 10. WBC 20.3, hemoglobin 11.1, hematocrit 34, platelet count 551. INR 1.95. Chest x-ray was read per above. The EKG shows sinus tachycardia with a heart rate about 100. There is no evidence of ischemia. ASSESSMENT: Ms. Wright is a 36-year-old female with a past medical history of insulin-dependent diabetes associated with end-stage renal disease, on peritoneal dialysis; gastroparesis; peripheral arterial disease, who furthermore has a history of coronary artery disease, hypertension, hyperlipidemia, chronic smoking with chronic hypoxic respiratory failure, on 5 L nasal cannula. She has also had multiple admissions to our hospital for upper abdominal pain of unclear etiology despite workup, both inpatient and outpatient, with CT scans, endoscopies, etc. She returns today with report of similar episode of abdominal pain associated with nausea and dry heaves. Of note, the patient does have a leukocytosis and mild elevation in her troponin to 0.04. Our plans will be for observation in the hospital for the followin. Abdominal pain with nausea and vomiting: The patient confirms that this episode is exactly the same as all previous episodes. She states these episodes can last from 2 days to 3 weeks. Her request today is for intravenous Dilaudid and Zofran for symptomatic management. Plan to treat symptomatically overnight. I do not see any indication for further workup of the abdominal pain , other than to send peritoneal dialysate fluid for analysis, given her repeat negative workups in the past. 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 2. Vaginal discharge: The patient denies any itching with the discharge. I note that back in October, she had a positive yeast. I did perform a pelvic exam and send the culture today, but will start empric treatment with fluconazole now. I see that she has a reported allergy to METRONIDAZOLE with nausea and vomiting. I think this is less an allergy than more of anticipated adverse effect. She will only need the fluconazole once every 3 days, so likely this will not be a significant problem. At this point, she is not vomiting in the ED. If she is not able to tolerate the fluconazole, we can switch to an intravenous medication. Given her lack of sexual activity and lack of any other clinical findings, I do suspect this is yeast, but we will wait for culture as well. 3. Type 2 diabetes: Plan to continue her lower dose insulin, as I suspect her dietary intake to be less while she is feeling nauseous intermittently. She will have lispro sliding scale with meals as well as consistent carbohydrate diet. 4. Chronic hypoxic respiratory failure: The patient is at baseline 5 L nasal cannula. 5. Leukocytosis: The patient has leukocytosis today. Her CRP is not dramatically elevated. I note that her chest x-ray shows persistent infiltrate which are unchanged. I think this infiltrate is reflective of her recent pneumonia rather than any new infection particularly given the lack of cough, chest pain, or shortness of breath. I have sent blood cultures, peritoneal dialysate cultures, and urinalysis is pending. 6. Elevated troponin: Plan to trend the troponin, I have low suspicion that there is any acute coronary syndrome. I suspect that the elevated troponin is secondary to her chronic kidney disease. 7. Hypertension: Continue amlodipine and losartan. 8. History of tobacco abuse: Continue nicotine inhaler. 9. Depression: Continue sertraline. 10. History of deep venous thrombosis with history of stent to the lower extremity. Continue warfarin. INR is 1.95. We will recheck in the a.m. 11. Code status: Full code. 12. Disposition: To medical floor. 13. DVT prophylaxis: With warfarin and SCDs. TIME SPENT: Approximately 60 minutes was spent on the admission of this patient , more than half the time spent with the patient at the bedside reviewing the events leading up to this hospitalization, performing the physical examination, and reviewing my plan of care. ORLANDO JIMENEZ NP [id number]/CPS #: [id number] VIRI
[2017-02-18] MEDS: Insulin GLARGINE(*) 1 UNITS UNIT SUBCUT SCH (21:52)
[2017-02-19] MEDS: Ondansetron INJ* 2 MG/ML VIAL IV PRN ×5 (03:23→20:16)
[2017-02-19] MEDS: HYDROmorphone INJ* 2 MG/ML CARPUJECT SYRINGE IV SLOW PU PRN ×5 (03:23→20:16)
[2017-02-19 05:27] LABS: Urine Appearance Cloudy; Urine Blood Negative (Negative); Urine Color Yellow; Urine Ketones Negative (Negative); Urine Protein 3+(>=500 mg/dL) (Negative); Urine Specific Gravity 1.023 (1.010-1.030); Urine Urobilinogen Negative (Negative)
[2017-02-19] MEDS: Insulin LISPRO* 1 UNITS UNIT SUBCUT SCH ×4 (07:44→21:15)
[2017-02-19] MEDS ORDERED: Magnesium Sulfate 1 GM IV* 1 GM/100 ML BAG IV ONE (08:06)
[2017-02-19] MEDS: Sertraline* 25 MG TAB PO SCH (08:37)
[2017-02-19] MEDS: Aspirin Low Dose CHEW TAB* 81 MG PO SCH (08:37)
[2017-02-19] MEDS: Warfarin TAB(*) 7.5 MG PO SCH (08:39)
[2017-02-19 08:59] LABS: ABS Basophils 0.1 10^3/ul (0-0.2); ABS Eosinophils 0.4 10^3/ul (0-0.6); ABS Lymphocytes 2.2 10^3/ul (1.0-4.8); ABS Monocytes 0.6 10^3/ul (0-0.8); ABS Neutrophils 11.5 10^3/ul (1.5-7.7); ABS Nucleated RBC 0 10^3/ul; Eosinophil % 2.5 % (0-6); Hematocrit 32 % (35-47); Hemoglobin 10.4 g/dl (12.0-16.0); Lymphocyte % 14.7 % (25-47); Mean Corpuscular HGB Conc 32 g/dl (31-36); Mean Corpuscular Hemoglobin 27 pg (27-31); Mean Corpuscular Volume 83 fL (80-97); Mean Platelet Volume 8 um3 (7.4-10.4); Nucleated Red Blood Cells % 0; Platelet Count 470 10^3/ul (150-450); Red Blood Count 3.89 10^6/ul (4.0-5.4); Red Cell Distribution Width 18 % (10.5-15); White Blood Count 14.9 10^3/ul (3.5-10.8)
[2017-02-19] MEDS ORDERED: Losartan TAB* 25 MG PO SCH (09:00)
[2017-02-19 09:08] LABS: INR 2.05 (0.77-1.02)
[2017-02-19 09:14] LABS: EGFR Non-African American 15.2 (>60)
[2017-02-19] MEDS ORDERED: Iron Sucrose* 200 MG in NS 0.9% 100 ML* 100 ML IVPB ONE (12:30)
[2017-02-19] MEDS ORDERED: Losartan TAB* 25 MG PO ONE (12:39)
[2017-02-19] MEDS: Mupirocin 2% OINT* TUBE TOPICAL SCH (13:15)
--- NOTE | 2017-02-19 18:47 | PN ---
Subjective Date of Service: 02/19/17 Interval History: Patient complains of ongoing nausea and severe upper abdominal pain. Patient states these are present but better controlled with IV Dilaudid and Zofran and that nothing PO works at this point and that she is nauseated with any oral intake. Patient denies any vomiting. Patient has occasional chills. Patient on 3L O2 but denies SOB, CP, Fevers, dysuria, Patient had a dilated CBD on a CT scan done at [facility] and was scheduled for a MRCP several weeks ago and has had ongoing intractable N/V. Family History: Unchanged from Admission Social History: Unchanged from Admission Past Medical History: Unchanged from Admission Objective Active Medications: Acetaminophen (Tylenol Tab*) 650 mg PO Q6HR PRN PRN Reason: pain/fever Albuterol (Ventolin Hfa Inhaler*) 2 puff INH Q6H PRN PRN Reason: WHEEZING Last Admin: 02/19/17 03:24 Dose: 2 puff Albuterol/Ipratropium (Duoneb (Albuterol 2.5 Mg/Ipratropium 0.5 Mg)) 1 neb INH Q4H PRN PRN Reason: DYSPNEA Last Admin: 02/19/17 08:23 Dose: 1 neb Amlodipine Besylate (Norvasc Tab*) 10 mg PO QPM NICOLASA Last Admin: 02/18/17 17:11 Dose: 10 mg Aspirin (Aspirin Low Dose Tab*) 81 mg PO DAILY NICOLASA Last Admin: 02/19/17 08:37 Dose: 81 mg Dextrose (D50w Syringe 50 Ml*) 12.5 gm IV PUSH .FOR FS < 60 - SS PRN PRN Reason: FS < 60 Fluconazole (Diflucan 100 Mg Tab*) 150 mg PO Q72H [facility] Stop: 02/24/17 15:01 Last Admin: 02/18/17 17:10 Dose: 150 mg Gabapentin (Neurontin Cap(*)) 200 mg PO QPM NICOLASA Last Admin: 02/18/17 17:08 Dose: 200 mg Hydromorphone HCl (Dilaudid Inj*) 1 mg IV SLOW PU Q4H PRN PRN Reason: PAIN Last Admin: 02/19/17 15:58 Dose: 1 mg Insulin Glargine (Lantus(*)) 40 units SUBCUT BEDTIME NICOLASA Last Admin: 02/18/17 21:52 Dose: 40 units Insulin Human Lispro (Humalog*) 0 units SUBCUT ACHS NICOLASA PRN Reason: Protocol Losartan Potassium (Cozaar Tab*) 100 mg PO DAILY [facility] Methadone HCl (Dolophine Tab*) 5 mg PO Q6H PRN PRN Reason: PAIN Last Admin: 02/18/17 17:09 Dose: 5 mg Mupirocin (Bactroban 2 % Oint*) 1 applic TOPICAL DAILY NICOLASA Last Admin: 02/19/17 13:15 Dose: 1 applic Nicotine (Nicotine Inhaler*) 10 mg INH Q2H PRN PRN Reason: CRAVING Omeprazole (Prilosec Cap*) 40 mg PO QPM NICOLASA Last Admin: 02/18/17 17:11 Dose: 40 mg Ondansetron HCl (Zofran Inj*) 4 mg IV Q4H PRN PRN Reason: nausea Last Admin: 02/19/17 15:58 Dose: 4 mg Promethazine HCl (Phenergan Tab*) 25 mg PO Q8H PRN PRN Reason: NAUSEA Last Admin: 02/18/17 17:11 Dose: 25 mg Sertraline HCl (Zoloft*) 25 mg PO DAILY [facility] Last Admin: 02/19/17 08:37 Dose: 25 mg Warfarin Sodium (Coumadin Tab(*)) 7.5 mg PO DAILY NICOLASA PRN Reason: Protocol Last Admin: 02/19/17 08:39 Dose: 7.5 mg Vital Signs - 8 hr 02/19/17 02/19/17 15:58 17:24 Respiratory 18 18 Rate Oxygen Devices in Use Now: Nasal Cannula - 3L Appearance: Patient is a 36yo female who appears older than stated age and is sitting in the bed in [facility]. Eyes: No Scleral Icterus, PERRLA Ears/Nose/Mouth/Throat: NL Teeth, Lips, Gums, Clear Oropharnyx, Mucous Membranes Moist Neck: NL Appearance and Movements; NL JVP, Trachea Midline Respiratory: Symmetrical Chest Expansion and Respiratory Effort, Clear to Auscultation Cardiovascular: NL Sounds; No Murmurs; No JVD, RRR, No Edema Abdominal: No Hepatosplenomegaly, - - Tenderness diffusely in abdomen without voluntary or involuntary guarding. Negative Nolasco's sign. BS present and normoactive in all 4 quadrants. Lymphatic: No Cervical Adenopathy Extremities: No Edema, No Clubbing, Cyanosis Skin: No Rash or Ulcers, No Nodules or Sclerosis Neurological: Alert and Oriented x 3, NL Sensation, NL Muscle Strength and Tone Result Diagrams: 02/19/17 08:39 02/19/17 08:39 Additional Lab and Data: Lab Results Assess/Plan/Problems-Billing Assessment: Patient is a 36yo female with a PMH significant for ESRD on peritoneal dialysis , DMII, Diabetic gastroparesis, CAD, Chronic Respiratory Failure, RTMA, Asthma, HTN and HLD who presents with intractable vomiting and upper abdominal pain which is responding to IV medication. - Patient Problems (1) Abdominal pain Current Visit: No Status: Acute Priority: High Onset Date: 06/27/14 Code (s): R10.9 - UNSPECIFIED ABDOMINAL PAIN SNOMED Code(s): 82273923 Comment: Unknown cause, in the middle [facility] Unable to discharge due to need for IV pain medication. MRCP ordered with MRI of abdomen, will consider GI consult based on results. Previous CBD dilation on CT scan, Possible Cholecystitis, Not likely Cholangitis or Choledocholithiasis. (2) GERD (gastroesophageal reflux disease) Current Visit: No Status: Acute Code(s): K21.9 - GASTRO-ESOPHAGEAL REFLUX DISEASE WITHOUT ESOPHAGITIS SNOMED Code(s): 185497987 Comment: Continue PPI. (3) IDDM (insulin dependent diabetes mellitus) Current Visit: No Status: Acute Code(s): E11.9 - TYPE 2 DIABETES MELLITUS WITHOUT COMPLICATIONS; Z79.4 - [facility] (CURRENT) USE OF INSULIN SNOMED Code( s): 03174746 Comment: Poorly controlled, last HgbA1c 14.3% Patient reports compliance with insulin administration and dietary recommendations Patient demonstrates a pattern of severe hyperglycemia overnight, during PD infusion and good control during daytime hours. Lower dextrose solution will be trialed this evening Will also increase evening Lantus to 100U and continue mealtime boluses and q4h glucose checks Patient would likely benefit from outpatient endocrinology support and consider a pump that could accomodate higher nighttime insulin needs (4) Leukocytosis Current Visit: No Status: Acute Code(s): D72.829 - ELEVATED WHITE BLOOD CELL COUNT, UNSPECIFIED SNOMED Code(s): 812380643 Comment: Levofloxacin started 02/[address] Vail, WBC stable with elevated ESR and Procalcitonin (ESR has been as high as 80s in past). PD fluid appears unremarkable. BCx NGTD. UA not obtained as patient does not make much urine. (5) PAD (peripheral artery disease) Current Visit: No Status: Acute Code(s): I73.9 - PERIPHERAL VASCULAR DISEASE , UNSPECIFIED SNOMED Code(s): 564879923 Comment: No acute issues at this time. INR has climbed significantly. Will decrease coumadin to 6mg tonight and follow up the INR tomorrow. (6) Type II diabetes mellitus with complication, uncontrolled Current Visit: No Status: Acute Code(s): E11.8 - TYPE 2 DIABETES MELLITUS WITH UNSPECIFIED COMPLICATIONS; E11.65 - TYPE 2 DIABETES MELLITUS WITH HYPERGLYCEMIA SNOMED Code(s): 003257145 Comment: The patient has uncontrolled type II DM. She is insulin dependent. Continue Glargine 40u and SSI insulin. (7) CAD (coronary artery disease) Current Visit: No Status: Chronic Code(s): I25.10 - ATHSCL HEART DISEASE OF [place] CORONARY ARTERY W/O ANG PCTRS SNOMED Code(s): 58137573 Comment: No signs of ACS at this time. (8) ESRD (end stage renal disease) Current Visit: No Status: Chronic Code(s): N18.6 - END STAGE RENAL DISEASE SNOMED Code(s): 31270079 Comment: Continue peritoneal dialysis. Followed by Dr. Marrufo. Dialysilate gram stain negative. (9) Gastroparesis Current Visit: No Status: Chronic Code(s): K31.84 - GASTROPARESIS SNOMED Code(s): 988313247 Comment: Related to Diabetes. Continue IV Zofran for nausea and Phenergan. Pateint reports to response to Reglan at home. (10) History of asthma Current Visit: No Status: Chronic Priority: Medium Code(s): Z87.09 - PERSONAL HISTORY OF OTHER DISEASES OF THE RESPIRATORY SYSTEM SNOMED Code(s): 797805661 Comment: Continue albuterol and Duonebs PRN. (11) Anemia Current Visit: Yes Status: Acute Code(s): D64.9 - ANEMIA, UNSPECIFIED SNOMED Code(s): 392227930 Comment: Related to ESRD and YOBANI. Appreciate Nephrology input, Will give IV iron while in hospital up to 5 doses. (12) Full code status Current Visit: No Status: Acute Onset Date: 06/27/14 Code(s): Z78.9 - OTHER SPECIFIED HEALTH STATUS SNOMED Code(s): 625519874 (13) DVT prophylaxis Current Visit: No Status: Acute Onset Date: 06/27/14 Code(s): RUL9943 - SNOMED Code(s): 267993161 Comment: Therapeutic INR Status and Disposition: Patient is admitted inpatient for IV pain medication and IV antiemetics, will discharge when medically able.
[2017-02-19] MEDS: Gabapentin CAP(*) 100 MG PO SCH (20:26)
[2017-02-19] MEDS: amLODIPine TAB* 5 MG PO SCH (20:28)
[2017-02-19] MEDS: Omeprazole CAP* 20 MG PO SCH (20:33)
[2017-02-19] MEDS: Insulin GLARGINE(*) 1 UNITS UNIT SUBCUT SCH (21:16)
[2017-02-19] MEDS: Methadone TAB* 5 MG PO PRN (21:32)
[2017-02-20] MEDS: Ondansetron INJ* 2 MG/ML VIAL IV PRN ×3 (00:07→08:55)
[2017-02-20] MEDS: HYDROmorphone INJ* 2 MG/ML CARPUJECT SYRINGE IV SLOW PU PRN ×3 (00:07→08:55)
[2017-02-20 06:42] LABS: ABS Basophils 0.1 10^3/ul (0-0.2); ABS Eosinophils 0.4 10^3/ul (0-0.6); ABS Lymphocytes 1.7 10^3/ul (1.0-4.8); ABS Monocytes 0.5 10^3/ul (0-0.8); ABS Nucleated RBC 0.01 10^3/ul; Eosinophil % 3.7 % (0-6); Hematocrit 33 % (35-47); Hemoglobin 10.5 g/dl (12.0-16.0); Lymphocyte % 14.5 % (25-47); Mean Corpuscular HGB Conc 32 g/dl (31-36); Mean Corpuscular Hemoglobin 27 pg (27-31); Mean Corpuscular Volume 84 fL (80-97); Mean Platelet Volume 8 um3 (7.4-10.4); Nucleated Red Blood Cells % 0.1; Platelet Count 464 10^3/ul (150-450); Red Blood Count 3.92 10^6/ul (4.0-5.4); Red Cell Distribution Width 18 % (10.5-15); White Blood Count 11.7 10^3/ul (3.5-10.8)
[2017-02-20 06:50] LABS: EGFR Non-African American 15.8 (>60)
[2017-02-20 07:48] VITALS: BP 135/72
[2017-02-20] MEDS: Insulin LISPRO* 1 UNITS UNIT SUBCUT SCH ×2 (08:55→12:36)
[2017-02-20] MEDS: Aspirin Low Dose CHEW TAB* 81 MG PO SCH (09:00)
[2017-02-20] MEDS: Mupirocin 2% OINT* TUBE TOPICAL SCH (09:00)
[2017-02-20] MEDS: Sertraline* 25 MG TAB PO SCH (09:00)
[2017-02-20] MEDS: Warfarin TAB(*) 7.5 MG PO SCH (09:00)
[2017-02-20] MEDS ORDERED: Losartan TAB* 25 MG PO SCH (09:00)
[2017-02-20] MEDS ORDERED: Magnesium Sulfate 2 GM IV* 2 GM/50 ML BAG IVPB ONE (09:03)
[2017-02-20] MEDS ORDERED: Ondansetron ODT TAB* 4 MG SL PRN (11:15)
--- NOTE | 2017-02-20 12:19 | RAD ---
Indication: Abdominal pain. CT of the abdomen and pelvis was performed without IV contrast demonstration. The lung bases demonstrate no pleural fluid nodules or masses. Heart demonstrates no pericardial effusion. Right middle lobe atelectasis Liver is normal in size. No focal lesions are noted. No intrahepatic duct dilatation is noted. Spleen is normal in size.. Arterial calcifications are noted. There is fluid in the abdomen likely due to dialysate. Peritoneal dialysis catheter is in place. No dilated loops of bowel. The colon is filled with stool. The common duct is not dilated. The gallbladder is partially contracted. Pancreas demonstrates no mass or pancreatic ductal dilatation. No adrenal masses are noted. The kidneys demonstrate no hydronephrosis. The retroperitoneal lymphadenopathy is noted. CT of the pelvis demonstrates no retroperitoneal or pelvic lymphadenopathy. Urinary bladder is otherwise unremarkable. The bony structures are grossly unremarkable. IMPRESSION: Peritoneal dialysis catheter in place. Fluid in the abdomen is likely due to peritoneal dialysate. Findings right middle lobe atelectasis noted. Overall no changes noted since December 21, 2016..
--- NOTE | 2017-02-21 04:26 | DS ---
CC: Aishwarya Solis MD; GIOVANNI Gutierrez of [place] * DISCHARGE SUMMARY: DATE OF ADMISSION: 02/18/17 DATE OF DISCHARGE: 02/20/17 PRIMARY CARE PROVIDER: Aishwarya Solis MD MY ATTENDING WHILE IN THE HOSPITAL: Lore Rothman DO * (DICTATED BY GIOVANNI SHEPPARD) PATIENT'S OUTPATIENT REFRIGERATION ENGINEERING TEACHER: GIOVANNI Gutierrez of [place]. PRIMARY DISCHARGE DIAGNOSES: 1. Intractable nausea and vomiting. 2. Upper abdominal pain. 3. Diabetes mellitus type 2, uncontrolled. 4. Chronic kidney disease. SECONDARY DISCHARGE DIAGNOSES: 1. Type 2 diabetes. 2. Diabetic gastroparesis. 3. End-stage renal disease, on peritoneal dialysis. 4. Coronary artery disease. 5. Peripheral arterial disease, status post stenting. 6. Pneumonia from 02/04/17. 7. Chronic hypoxic respiratory failure with 5 L. 8. Transmetatarsal amputation. 9. Hypertension. 10. Hyperlipidemia. 11. Asthma. 12. Tobacco abuse. 13. Gastroesophageal reflux disease. 14. Depression. 15. Anxiety. STUDIES DONE WHILE IN THE HOSPITAL: 1. Electrocardiogram from 02/18/17 read as sinus tachycardia, early repolarization abnormality V2 to V3, no other ST segment abnormalities, normal axis, no enlargement or hypertrophy, QTC of 43. 2. Chest x-ray on 02/18/17 read as small bilateral infiltrates, unchanged. 3. Abdomen and pelvis CT from 02/20/17 read as peritoneal dialysis catheter in place, fluid in the abdomen is likely due to peritoneal dialysate, findings middle lobe atelectasis noted, no overall changes since 02/20/17. MEDICATIONS AT DISCHARGE: 1. Omeprazole 40 mg p.o. q.a.m. 2. NovoLog 0 to 100 units subcutaneous a.c. p.r.n., sliding scale. 3. Morphine 10 mg p.o. q.p.m. 4. Albuterol 2 puffs inhalation q.6 hours as needed. 5. Insulin glargine 4 units subcutaneous at bedtime. 6. Aspirin 81 mg p.o. daily. 7. Methadone 5 mg p.o. q.6 hours as needed. 8. Promethazine 25 mg p.o. q.8 hours. 9. Gabapentin 200 mg p.o. q.p.m. 10. Sertraline 25 mg p.o. daily. 11. Tylenol 650 mg p.o. q.6 hours. 12. Nicotine inhaler 10 mg p.o. inhalation q.2 hours. 13. Budesonide 1 mg inhalation b.i.d. 14. DuoNeb 1 inhalation q.4 hours as needed. 15. Warfarin 7.5 mg p.o. daily. 16. Zofran 4 mg sublingually q.4 hours as needed. 17. Losartan 100 mg p.o. daily. 18. Metoclopramide 5 mg p.o. q.6 hours. Medication discontinued at discharge: 1. Insulin glargine 6 units subcutaneous at bedtime. 2. Losartan 75 mg p.o. daily. HOSPITAL COURSE: This is a brief summary to the patient's presentation. For more details, please see the history and physical from Hortencia Jimenez from . In brief, the patient is a 36-year-old female who has been admitted to this institution 10 times this year with a complex past medical history significant for the above. Patient came into the emergency department with upper abdominal pain and intractable nausea and vomiting. Patient has been having an extensive workup as an outpatient with her quality systems engineer through [facility]. Patient's only positive finding thus far has been a dilated common bile duct on a CT scan. Patient was admitted to the hospital for IV pain medication and IV antiemetics. Patient had a white blood cell count of 20.3 with a CRP of 33.42 with no clear cause of infection. Patient had a yeast infection, which was treated and no other changes from previous admissions. Patient remained within the same state on 02/19/17 stating her only relief came from IV Dilaudid and IV Zofran. Patient's blood sugars were relatively well controlled at one point going down to the 87 and at the highest being 189. Patient continued peritoneal dialysis while in the hospital. Patient was on 40 units of lispro sliding scale which she only received 6 units. Patient continued having Dilaudid as soon as possible every time it was due. Patient was scheduled for an MRCP, which was initially scheduled for outpatient with her quality systems engineer. However, patient was deemed to be ineligible for an MRI due to stents in her legs while inpatient. Patient also received Venofer 200 mg IV for iron deficiency anemia that was covered by her outpatient labor economics professor and previous lab work. Patient was supposed to receive a second dose while in the hospital, but refused. Patient was hypomagnesemic and that was replaced, but was unable to rechecked. Patient has no other abnormalities on her except for a slight moderate hypertension. Patient had no fever. Patient's white count decreased while she was in the hospital. Patient's pulse rate also decreased. While she was in the hospital, patient was tachycardic. On admission, patient had no increase in her oxygen demand. Patient was scheduled for a CT scan of the abdomen and gallbladder ultrasound on 02/20/17 after it was discovered that the MRI was not possible in patient stay. She was feeling better and was not willing to stay inpatient for these testings. Patient was discharged to continue her workup for the cause of her upper abdominal pain with her outpatient quality systems engineer, Dr. Marrufo of Nephrology , who recommended a Surgery consult for possibility of omental infarction, which would require laparoscopy. This was deferred until pathology of patient' s gallbladder is more definitively ruled out with the possibility of ERCP and HIDA scan, which were discussed with her outpatient provider. Patient had an EGD, which showed gastritis for which she is on omeprazole for, but this would not adequately explain her symptoms. Patient's losartan was increased from 75 mg to 100 mg daily to good effect. PHYSICAL EXAM: General: The patient is a 36-year-old female who appears much older than her stated age. She is sitting comfortably in bed, in no acute distress. Vital signs at the time of discharge, temperature 98.1, pulse rate 87 , respiratory rate 17, oxygen saturation 94% on 4 L of oxygen, blood pressure 135/72. HEENT: Head normocephalic, atraumatic. Sclerae anicteric. The patient has a prosthetic left eye. Nasal mucosa moist. Oral mucosa moist. No pharyngeal erythema, exudate or postnasal drainage. Neck: Supple, nontender, no lymphadenopathy, no carotid bruits auscultated. Cardiac: Regular rate and rhythm. No clicks, murmurs, gallops or rubs. Pulses are 2+ in bilateral dorsalis pedis, posterior tibialis and radial areas. Respiratory: Patient had severe wheezes inspiratory and expiratory throughout all lung hernandez. This is unchanged from previous exam. Patient has no accessory muscle use or increased respiratory effort. Abdomen: Soft, nondistended. No hepatosplenomegaly. Patient has severe pain with severe tenderness to palpation over the upper abdomen. No abdominal bruits auscultated. Bowel sounds present normoactive in all 4 quadrants. Negative Nolasco sign. Genitourinary: No suprapubic tenderness or CVA tenderness. Skin: Clean, dry, intact. Neurologic: Cranial nerves II through XII grossly intact. Unable to test movement or pupillary reaction in the prosthetic eye. No other focal deficits. Psychiatric: Patient is anxious and at times hostile. LABORATORY DATA ON DAY OF DISCHARGE: White blood cell count 11.7, hemoglobin 10.5, platelet count 464. INR 2.05 on 02/19/17. Sodium 135, potassium 3.7, chloride 99, carbon dioxide 32, anion gap 4, BUN 25, creatinine 3.29. hemoglobin A1c 11.9, calcium 8.5, magnesium 1.5, bilirubin 0.2, AST 17, ALT 6, alkaline phosphatase 90, total protein 57, albumin 2.5, globulin 3.2, albumin globulin ratio 0.8. DISCHARGE PLAN: The patient will be discharged to home to continue to workup for her abdominal pain. Patient will be prescribed Zofran, Phenergan, Reglan as needed. Patient should start pain control with her methadone, which she has been previously successful. Patient should follow up with her quality systems engineer and consider a HIDA scan and ERCP and possible surgical consultation for exploratory laparoscopy. Patient should also follow up with her primary care provider for better control of her diabetes, which was well controlled while in the hospital. However, her hemoglobin A1c is 11.9. So, this is probably not the case for her home situation. Patient should return to the hospital for any alarming symptoms such as chest pain or inability to take required medications. ACTIVITIES: The patient should engage in activity as tolerated. DIET: The patient should have a consistent carbohydrate diet avoiding foods that are upsetting to her stomach preferring small meals due to gastroparesis. TIME SPENT: Approximately 60 minutes were spent on this discharge, 30 of which was spent [id number] with patient and her family obtaining history and physical and discussing treatment plan. GIOVANNI SHEPPARD [id number]/[facility] #: [id number] VIRI
== END 2017-02-20 13:40 | disposition home or self-care (01) | DRG 251 ==
LOC: ED 12:19 → MED 14:30 → OBSVTOIN 02-19 15:30 → INTOOBSV 02-19 15:32
PROVIDERS: ADMIT Internal Medicine; ATTEND Hospitalist
PROC: 3E1M39Z Irrigation of Peritoneal Cavity using Dialysate, Percutaneous Approach (ICD-10-PCS; principal; 2017-02-19)
DX: R10.9 Unspecified abdominal pain (principal); N18.6 End stage renal disease; J96.11 Chronic respiratory failure with hypoxia; E11.22 Type 2 diabetes mellitus with diabetic chronic kidney disease; K31.84 Gastroparesis; E11.51 Type 2 diabetes mellitus with diabetic peripheral angiopathy without gangrene; E11.40 Type 2 diabetes mellitus with diabetic neuropathy, unspecified; E83.42 Hypomagnesemia; I12.0 Hypertensive chronic kidney disease with stage 5 chronic kidney disease or end stage renal disease; J98.11 Atelectasis; E11.43 Type 2 diabetes mellitus with diabetic autonomic (poly)neuropathy; I25.10 Atherosclerotic heart disease of native coronary artery without angina pectoris; E78.5 Hyperlipidemia, unspecified; K21.9 Gastro-esophageal reflux disease without esophagitis; F41.9 Anxiety disorder, unspecified; F17.210 Nicotine dependence, cigarettes, uncomplicated; R74.8 Abnormal levels of other serum enzymes; D72.829 Elevated white blood cell count, unspecified; N89.8 Other specified noninflammatory disorders of vagina; J44.9 Chronic obstructive pulmonary disease, unspecified; M16.0 Bilateral primary osteoarthritis of hip; M47.9 Spondylosis, unspecified; M51.26 Other intervertebral disc displacement, lumbar region; M54.30 Sciatica, unspecified side; H54.8 Legal blindness, as defined in USA; F31.9 Bipolar disorder, unspecified; E66.9 Obesity, unspecified; R40.2412 Glasgow coma scale score 13-15, at arrival to emergency department; R11.2 Nausea with vomiting, unspecified; K29.70 Gastritis, unspecified, without bleeding; D50.9 Iron deficiency anemia, unspecified; R00.0 Tachycardia, unspecified; Z99.2 Dependence on renal dialysis; Z89.431 Acquired absence of right foot; Z95.820 Peripheral vascular angioplasty status with implants and grafts; Z99.81 Dependence on supplemental oxygen; Z87.01 Personal history of pneumonia (recurrent); Z85.820 Personal history of malignant melanoma of skin; Z88.8 Allergy status to other drugs, medicaments and biological substances; Z88.1 Allergy status to other antibiotic agents; Z88.5 Allergy status to narcotic agent; Z83.3 Family history of diabetes mellitus; Z91.048 Other nonmedicinal substance allergy status; Z86.718 Personal history of other venous thrombosis and embolism; Z88.2 Allergy status to sulfonamides; I25.2 Old myocardial infarction; Z87.442 Personal history of urinary calculi; Z97.0 Presence of artificial eye; Z82.49 Family history of ischemic heart disease and other diseases of the circulatory system; Z81.8 Family history of other mental and behavioral disorders; Z68.32 Body mass index [BMI] 32.0-32.9, adult; Z79.4 Long term (current) use of insulin; Z79.82 Long term (current) use of aspirin; Z79.01 Long term (current) use of anticoagulants
CPT/HCPCS: 36415; 71010; 74176; 80048; 80053; 81003; 81015; 82140; 82150; 82550; 83036; 83605; 83690; 83735; 83880; 84484; 84702; 85025; 85610; 85730; 86140; 87040; 87086; 87205; 87480; 87510; 87641; 87661; 93005; 94640; 94760; A9270-GY; G0378; J1170; J1756; J2405; J3475

== ENCOUNTER 2017-03-10 22:13 | Observation (INO) | payer OTHER ==
[2017-03-10] MEDS ORDERED: Metoclopramide IV* 5 MG/ML 2 ML VIAL IV ONE (23:10)
[2017-03-10] MEDS ORDERED: Pantoprazole IV* 40 MG IV ONE (23:10)
[2017-03-10] MEDS ORDERED: Morphine INJ* 4 MG/ML 1 ML CARPUJECT IV ONE (23:10)
[2017-03-10] MEDS ORDERED: HYDROmorphone INJ* 1 MG/ML CARPUJECT SYRINGE ONE (23:30)
[2017-03-10] MEDS ORDERED: HYDROmorphone INJ* 2 MG/ML CARPUJECT SYRINGE IV SLOW PU ONE (23:55)
[2017-03-10] MEDS ORDERED: HYDROmorphone INJ* 1 MG/ML CARPUJECT SYRINGE IV SLOW PU ONE (23:56)
[2017-03-11] MEDS ORDERED: Ondansetron INJ* 2 MG/ML VIAL IV ONE ×2 (00:01→02:40)
[2017-03-11] MEDS ORDERED: NS 0.9% 1000 ML* 1,000 ML IV ONE (00:01)
[2017-03-11 00:11] LABS: ABS Basophils 0.2 10^3/ul (0-0.2); ABS Eosinophils 0.4 10^3/ul (0-0.6); ABS Lymphocytes 1.3 10^3/ul (1.0-4.8); ABS Monocytes 0.6 10^3/ul (0-0.8); ABS Neutrophils 14.4 10^3/ul (1.5-7.7); ABS Nucleated RBC 0 10^3/ul; Eosinophil % 2.2 % (0-6); Hematocrit 34 % (35-47); Lymphocyte % 7.9 % (25-47); Mean Corpuscular HGB Conc 33 g/dl (31-36); Mean Corpuscular Hemoglobin 27 pg (27-31); Mean Corpuscular Volume 84 fL (80-97); Mean Platelet Volume 8 um3 (7.4-10.4); Nucleated Red Blood Cells % 0.1; Platelet Count 383 10^3/ul (150-450); Red Blood Count 4.02 10^6/ul (4.0-5.4); Red Cell Distribution Width 20 % (10.5-15); White Blood Count 16.9 10^3/ul (3.5-10.8)
[2017-03-11 00:21] LABS: EGFR Non-African American 12.3 (>60)
[2017-03-11] MEDS ORDERED: Morphine INJ* 4 MG/ML 1 ML CARPUJECT IV ONE ×2 (01:03→02:39)
[2017-03-11] MEDS ORDERED: Ondansetron INJ* 2 MG/ML VIAL IV PRN (03:43)
[2017-03-11] MEDS ORDERED: PROCHLORPERAZINE INJ 5 MG/ML 2 ML VIAL IV PRN (03:43)
[2017-03-11] MEDS ORDERED: Trimethobenzamide IM* 100 MG/ML 2 ml VIAL IM PRN (03:43)
[2017-03-11] MEDS ORDERED: Nicotine Inhaler* 10 MG AMP INH PRN (03:46)
[2017-03-11] MEDS ORDERED: Albuterol HFA INHALER* 8 gm MDI INH PRN (03:46)
[2017-03-11] MEDS ORDERED: Albuterol/Ipratropium NEB.SOL* Albuterol 2.5 MG/Ipratropium 0.5 MG 3 ML INH PRN (03:46)
[2017-03-11] MEDS ORDERED: Methadone TAB* 5 MG PO PRN (03:46)
[2017-03-11] MEDS ORDERED: Acetaminophen TAB* 325 MG PO PRN (03:46)
[2017-03-11] MEDS ORDERED: Mouth Piece, Nicotine* 1 EACH CARTRIDGE INH ONE (04:00)
[2017-03-11 04:02] LABS: INR 2.33 (0.77-1.02)
--- NOTE | 2017-03-11 04:02 | ED ---
Ana Palacio Nilda, scribed for Daria Tan MD on 03/11/17 at 0126 . Abdominal Pain/Female - HPI Summary HPI Summary: This patient is a 36 year old F presenting to [facility] with a chief complaint of constant worsening abd pain with N/V for about one week. The patient rates the pain 9/10 in severity. Symptoms aggravated and alleviated by nothing. Patient reports swelling in RUQ (past 2 weeks), CP secondary to dry heaving, dizziness, and lightheadedness. Pt states shes had similar chronic abd symptoms for about 6 months and has had workup by GI specialist. She has had CT, XR, and US Abd. GI physician would also like MRI on pt but pt states no one would do it because of the stents in my leg. PMHx IDDM (usually uncontrolled). Pt states blood glucose normally between 200-400. - History of Current Complaint Chief Complaint: EDNauseaVomitDiarrh Stated Complaint: NAUSEA,DIZZY,CP Time Seen by Provider: 03/10/17 22:43 Hx Obtained From: Patient Hx Last Menstrual Period: irregular Onset/Duration: Gradual Onset, Lasting Weeks, Still Present Timing: Constant Severity Currently: Severe Pain Intensity: 9 Pain Scale Used: 0-10 Numeric Location: Diffuse Radiates: No Aggravating Factor(s): Nothing Alleviating Factor(s): Nothing Associated Signs and Symptoms: Positive: Other: - swelling in RUQ (past 2 weeks) , CP secondary to dry heaving, dizziness, and lightheadedness Allergies/Adverse Reactions: Allergies Allergy/AdvReac Type Severity Reaction Status Date / Time Heparin Allergy Intermediate pt states Verified 03/10/17 22:18 it gave her a blood clot Niacin Allergy Mild Hives Verified 03/10/17 22:18 Ropinirole [From Requip] Allergy Mild Hives Verified 03/10/17 22:18 Amoxicillin [From Augmentin] AdvReac Mild "Doesn't Verified 03/10/17 22:18 work" Clavulanic Acid AdvReac Mild "Doesn't Verified 03/10/17 22:18 [From Augmentin] work" Codeine AdvReac Mild Nausea And Verified 03/10/17 22:18 Vomiting Erythromycin AdvReac Mild "DOESN'T Verified 03/10/17 22:18 WORK" Metronidazole [From Flagyl] AdvReac Mild Nausea And Verified 03/10/17 22:18 Vomiting Sulfamethoxazole AdvReac Mild Nausea And Verified 03/10/17 22:18 w/Trimethoprim Vomiting [From Bactrim] plastic tape Allergy Mild Blisters Uncoded 03/10/17 22:18 PMH/Surg Hx/FS Hx/Imm Hx Endocrine/Hematology History: Reports: Hx Anticoagulant Therapy - Aspirin., Hx Blood Transfusions, Hx Diabetes, Hx Anemia - hx of - reports had tranfusion in 2013 after mi Comment Only: Hx Thyroid Disease - nodule biopsied, normal Cardiovascular History: Reports: Hx Angina, Hx Cardiac Arrest - in 2013 with CPR, Hx Cardiomegaly, Hx Coronary Artery Disease, Hx Deep Vein Thrombosis, Hx Hypercholesterolemia, Hx Hypertension, Hx Myocardial Infarction, Other Cardiovascular Problems/Disorders Denies: Hx Congestive Heart Failure, Hx Pacemaker/ICD, Hx Valvular Heart Disease Respiratory History: Reports: Hx Asthma, Hx Chronic Obstructive Pulmonary Disease (COPD) - smoker, Hx Sleep Apnea - pt reports md thinks, but no official testing done yet, Other Respiratory Problems/Disorders - acute respipatory failure with hypoxia - jan 2016 Denies: Hx Lung Cancer, Hx Pneumonia, Hx Pulmonary Embolism GI History: Reports: Hx Gastroesophageal Reflux Disease, Other GI Disorders - GASTROPARESIS - TAKING OMEPRAZOLE, reglan and zofran Denies: Hx Gall Bladder Disease, Hx Gastrointestinal Bleed, Hx Ulcer, Hx Urosepsis History: Reports: Hx Acute Renal Failure, Hx Chronic Renal Failure - ESRD on PD, Hx Dialysis - PERITONEAL, Hx Kidney Stones, Hx Renal Disease - ESRD on home peritoneal dialysis , Other Problems/Disorders Musculoskeletal History: Reports: Hx Arthritis - back, hips, Hx Back Problems - Sciatica and Herniated L3 disk, Other Musculoskeletal History - partial amputation of toes/foot Sensory History: Reports: Hx Eye Prosthesis - left, 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, Hx Vision Problem Denies: Hx Contacts or Glasses, Hx Hearing Aid Opthamlomology History: Reports: Hx Eye Prosthesis - left, 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, Hx Vision Problem Denies: Hx Contacts or Glasses Neurological History: Reports: Other Neuro Impairments/Disorders - neuropathy Denies: Hx Transient Ischemic Attacks (TIA) Psychiatric History: Reports: Hx Anxiety, Hx Depression, Hx Bipolar Disorder Denies: Hx Eating Disorder, Hx Panic Disorder, Hx Schizophrenia, Hx of Violent Episodes Against Others - Cancer History Cancer Type, 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 MELANOMA REMOVED FROM [facility] 2012 (PROCEDURE DONE 4X);. CARDIAC CATH 2013 - NO STENTS;. LEFT WRIST FISTULA PLACEMENT ([facility]) 2013;. HEMODIALYSIS CATH RIGHT CHEST WALL 2013;. PERITONEAL DIALYSIS CATH 03/2014;. CHEST WALL CATH REMOVAL 08/2015 [facility] [place];. RIGHT GREAT TOE AMPUTATION, [facility] 05/2015;. PLACEMENT RIGHT JUGULAR TESIO HEMODIALYSIS CATHETER [facility] [place] 10/22/2015;. REMOVAL OF JUGULAR CATH - OCT 2015. CARDIAC CATH - stentsx2 right leg. PARTIAL AMPUTATION RIGHT TOES 06/2016. RIGHT TOES ALL REMOVED Hx Anesthesia Reactions: No - Immunization History Date of Tetanus Vaccine: UTD Date of Influenza Vaccine: 11/2016 Infectious Disease History: No Infectious Disease History: Reports: Hx of Known/Suspected MRSA - MRSA R 1st toe , History Other Infectious Disease - GANGRENE Denies: Hx Clostridium Difficile, Hx Hepatitis, Hx Human Immunodeficiency Virus (HIV), Hx Shingles, Hx Tuberculosis, Traveled Outside the [place] in Last 30 Days - Family History Known Family History: Positive: Cardiac Disease - father [place] at 42 y/o, Hypertension, Other - Positive for bipolar and depression. Completed suicide to sister. - Social History Alcohol Use: unknown Hx Substance Use: No Substance Use Type: Reports: None, Other Substance Use Comment - Amount & Last Used: METHADONE (noted in chart, not confirmed still prescribed in 11/2016) Hx Tobacco Use: Yes Smoking Status (MU): Heavy Every Day Tobacco Smoker Type: Cigarettes Amount Used/How Often: 1 PPD Length of Time of Smoking/Using Tobacco: 20 YEARS Have You Smoked in the Last Year: Yes Review of Systems Positive: Chest Pain - secondary to dry heaving Positive: Abdominal Pain, Vomiting, Nausea, Other - swelling in RUQ Neurological: Other - dizziness and lightheadedness All Other Systems Reviewed And Are Negative: Yes Physical Exam - Summary Physical Exam Summary: VITAL SIGNS: Reviewed. GENERAL: Patient is a well-developed and nourished female who is lying comfortable in the stretcher. Patient is not in any acute respiratory distress. HEAD AND FACE: No signs of trauma. No ecchymosis, hematomas or skull depressions. No sinus tenderness. EYES: PERRLA, EOMI x 2, No injected conjunctiva, no nystagmus. EARS: Hearing grossly intact. Ear canals and tympanic membranes are within normal limits. MOUTH: Oropharynx within normal limits. NECK: Supple, trachea is midline, no adenopathy, no JVD, no carotid bruit, no c- spine tenderness, neck with full ROM. CHEST: Symmetric, no tenderness at palpation LUNGS: Clear to auscultation bilaterally. No wheezing or crackles. CVS: Regular rate and rhythm, S1 and S2 present, no murmurs or gallops appreciated. ABDOMEN: Soft, Mild diffuse abd tenderness more on epigastrium, Peritoneal dialysis catheter in lower abdomen. No signs of distention. No rebound no guarding, and no masses palpated. Bowel sounds are normal. EXTREMITIES: FROM in all major joints, no edema, no cyanosis or clubbing. Right fore-foot amputation. NEURO: Alert and oriented x 3. No acute neurological deficits. Speech is normal and follows commands. SKIN: Dry and warm Triage Information Reviewed: Yes Vital Signs On Initial Exam: Initial Vitals Temp Pulse Resp BP Pulse Ox 97.1 F 102 16 161/98 98 03/10/17 22:14 03/10/17 22:14 03/10/17 22:14 03/10/17 22:14 03/10/17 22:14 Vital Signs Reviewed: Yes - Eek Coma Scale Coma Scale Total: 15 Diagnostics - Vital Signs Vital Signs Temp Pulse Resp BP Pulse Ox 03/10/17 23:58 16 03/10/17 23:57 16 03/10/17 23:24 16 03/10/17 22:14 97.1 F 102 16 161/98 98 - Laboratory Lab Results: Lab Results 03/10/17 03/10/17 Range/Units 00:00 00:00 WBC 16.9 H (3.5-10.8) 10^3/ul RBC 4.02 (4.0-5.4) 10^6/ul Hgb 11.0 L (12.0-16.0) g/dl Hct 34 L (35-47) % MCV 84 (80-97) fL MCH 27 (27-31) pg MCHC 33 (31-36) g/dl RDW 20 H (10.5-15) % Plt Count 383 (150-450) 10^3/ul MPV 8 (7.4-10.4) um3 Neut % (Auto) 85.6 H (38-83) % Lymph % (Auto) 7.9 L (25-47) % Reagan % (Auto) 3.4 (1-9) % Eos % (Auto) 2.2 (0-6) % Baso % (Auto) 0.9 (0-2) % Absolute Neuts (auto) 14.4 H (1.5-7.7) 10^3/ul Absolute Lymphs (auto) 1.3 (1.0-4.8) 10^3/ul Absolute Monos (auto) 0.6 (0-0.8) 10^3/ul Absolute Eos (auto) 0.4 (0-0.6) 10^3/ul Absolute Basos (auto) 0.2 (0-0.2) 10^3/ul Absolute Nucleated RBC 0 10^3/ul Nucleated RBC % 0.1 Sodium 132 L (133-145) mmol/L Potassium TNP Chloride 97 L (101-111) mmol/L Carbon Dioxide 27 (22-32) mmol/L Anion Gap 8 (2-11) mmol/L BUN 26 H (6-24) mg/dL Creatinine 4.08 H (0.51-0.95) mg/dL Est GFR ( Amer) 15.8 (>60) Est GFR (Non-Af Amer) 12.3 (>60) BUN/Creatinine Ratio 6.4 L (8-20) Glucose 162 H (70-100) mg/dL Calcium 8.7 (8.6-10.3) mg/dL Magnesium 1.6 L (1.9-2.7) mg/dL Total Bilirubin 0.30 (0.2-1.0) mg/dL AST TNP ALT 6 L (7-52) U/L Alkaline Phosphatase 119 H (34-104) U/L C-Reactive Protein 51.22 H (< 5.00) mg/L Total Protein 6.1 L (6.4-8.9) g/dL Albumin 2.8 L (3.2-5.2) g/dL Globulin 3.3 (2-4) g/dL Albumin/Globulin Ratio 0.8 L (1-3) Amylase < 10 L (29-103) U/L Lipase 21 (11.0-82.0) U/L Result Diagrams: 03/10/17 00:00 03/11/17 01:00 Lab Statement: Any lab studies that have been ordered have been reviewed, and results considered in the medical decision making process. - EKG 2219 EKG Interpretation: Sinus arrhythmia , LVH, 101 bpm Re-Evaluation - Re-Evaluation First Eval Re-Evaluation Time: 00:40 Comment: Reviewed labs and EKG with pt. Abdominal Pain Fem Course/Dx - Course Course Of Treatment: This pt is a 36 y/o F with Hx of longstanding DM, uncontrolled most of the time. Pt having N/V, chronic abd pain. Pt has had full work up by GI specialist. On 02/20/17 pt was admitted for similar symptoms and CT Abd returned negative. Sx most likely secondary to gastroparesis as complication of long standing DM. Pt received 2 rounds antinausea and 2 rounds pain medication. Pt still symptomatic. An EKG reveals sinus arrhythmia, 101 bpm , LVH. [id number] Dr. Rothman (hospitalist) agrees to admit pt. Pt will be admitted with Dx gastroparesis and Abd pain. - Diagnoses Provider Diagnoses: Gastroparesis, Abdominal pain - Provider Notifications Discussed Care Of Patient With: Lore Rothman - Hospitalist Time Discussed With Above Provider: 02:41 Instructed by Provider To: Admit As Inpatient Discharge - Discharge Plan Condition: Stable Disposition: ADMITTED TO [facility] Referrals: Aishwarya Solis MD [Primary Care Provider] - The documentation as recorded by the Ana sexton Nilda accurately reflects the service I personally performed and the decisions made by , Daria Tan MD.
[2017-03-11] MEDS ORDERED: Dextrose 50% Syringe 50 ML* 25 GM/50 ML SYRINGE IV PUSH PRN (04:06)
[2017-03-11] MEDS ORDERED: Magnesium Sulfate 2 GM IV* 2 GM/50 ML BAG IVPB ONE (04:06)
--- NOTE | 2017-03-11 06:47 | HP ---
CC: Dr. Solis * HISTORY AND PHYSICAL: DATE OF ADMISSION: 03/11/17 PRIMARY CARE PROVIDER: Dr. Solis. SHAFT HEADMAN: Dr. Marrufo. CHIEF COMPLAINT: Upper abdominal pain and intractable nausea and vomiting. HISTORY OF PRESENT ILLNESS: Ms. Wright is a 36-year-old male well known to the hospitalist service from multiple previous hospitalizations who presents to the emergency room again with complaints of upper abdominal pain, nausea and vomiting. The patient has a history of insulin-dependent type 2 diabetes with associated gastroparesis, end-stage renal disease on peritoneal dialysis, coronary artery disease, peripheral arterial disease, and depression and anxiety who presents for the second time with the identical complaint of upper abdominal pain, nausea and vomiting. The patient was hospitalized from through 02/20/17 with complaints of the same. At that time, she was treated with IV Dilaudid and Zofran. It was recommended during that hospitalization that the patient undergo ultrasound and possible ERCP as there was concern at some point in the past of a dilated common bile duct. Ultimately, the patient refused to do that as an inpatient and was discharged home as she was feeling slightly better. The patient previously had an EGD that showed gastritis and it was felt this was unlikely to be the etiology of her complaints. The patient states that when she gets flares of this, she notes that she sleeps very poorly and will only sleep for an hour to an hour and a half and then she will wake up with tremors, then she will develop nausea, severe pain in her epigastrium radiating to the right and then she will begin to vomit. She also complains of chest pain that will come and go. She thinks it may be related to dry heaving. Additionally, she is concerned that perhaps her constipation is causing her symptoms as she has not had a bowel movement in several days. PAST MEDICAL HISTORY: 1. Type 2 diabetes. 2. Gastroparesis. 3. End-stage renal disease, on peritoneal dialysis. 4. Coronary artery disease. 5. Peripheral arterial disease. 6. Chronic hypoxic respiratory failure, requiring 5 L O2 continuously. 7. Status post right transmetatarsal amputation. 8. Hypertension. 9. Hyperlipidemia. 10. Asthma. 11. History of tobacco abuse. 12. GERD. 13. Depression and anxiety. MEDICATIONS: This list is from discharge on 02/20/17: 1. Amlodipine 10 mg p.o. q.h.s. 2. Coumadin 7.5 mg p.o. daily. 3. Sertraline 25 mg p.o. daily. 4. Phenergan 25 mg p.o. q.8 hours p.r.n. nausea. 5. Zofran ODT 4 mg SL q.6 hours p.r.n. nausea. 6. Omeprazole 40 mg p.o. q.h.s. 7. Nicotine inhaler 10 mg inhaled q.2 hours p.r.n. craving. 8. Metoclopramide 5 mg p.o. q.6 hours. 9. Methadone 5 mg p.o. q.6 hours p.r.n. pain. 10. Losartan 100 mg p.o. daily. 11. Lantus 40 units subcutaneous q.h.s. 12. NovoLog via sliding scale. 13. Gabapentin. 14. Budesonide 1 mg inhaled twice daily. 15. Aspirin 81 mg p.o. daily. 16. DuoNeb 1 neb inhaled q.4 hours p.r.n. shortness of breath. 17. Albuterol 2 puffs inhaled q.6 hours p.r.n. shortness of breath. 18. Tylenol 650 mg p.o. q.6 hours p.r.n. pain. ALLERGIES: HEPARIN, NIACIN, REQUIP, AUGMENTIN, CODEINE, ERYTHROMYCIN, FLAGYL, MORPHINE, BACTRIM, PLASTIC TAPE. FAMILY HISTORY: Positive for diabetes. SOCIAL HISTORY: The patient is smoking less than half pack per day. She denies any alcohol use. She lives with her boyfriend who is her healthcare proxy. REVIEW OF SYSTEMS: A complete 11-system review of systems was obtained. Pertinent positives and negatives are as per HPI and otherwise negative. PHYSICAL EXAMINATION GENERAL: The patient is a well-developed young female who appears much older than her stated age, lying in bed, in no acute distress. VITAL SIGNS: Blood pressure 152/83, pulse 84, respirations 16, temp 99.0, O2 sat 94% on 4 L. HEENT: Pupils are equal. They are round. Extraocular muscles are intact. Oropharynx is clear. Oral mucosa is slightly dry. There is no submandibular, cervical or supraclavicular adenopathy. Thyroid is not enlarged. No thyroid nodules noted. PULMONARY: Lungs are clear to auscultation bilaterally. CARDIAC: Normal S1 and S2. Regular rate and rhythm. I do not appreciate any murmurs. There is no lower extremity edema. ABDOMEN: Bowel sounds present. Abdomen is soft, nondistended. She is mildly tender in the epigastrium and right upper quadrant. MUSCULOSKELETAL: There is no cyanosis or clubbing of the digits. The patient is status post a right transmetatarsal amputation. NEURO: Cranial nerves II through XII are grossly intact. Sensation is intact to light touch throughout. Strength is 5/5 and symmetrical in both the upper and lower extremities bilaterally. PSYCH: The patient is alert. She is oriented x3. Affect appears appropriate. LABORATORY DATA/DIAGNOSTIC STUDIES: WBC 16.9, hemoglobin 11.0, hematocrit 34, platelets 383,000. Sodium 132, potassium 4.2, chloride 97, CO2 is 27, BUN 26, creatinine 4.08, glucose 162, calcium 8.7, magnesium 1.6. AST 6, ALT 6, alk phos 119. Troponin pending. CRP 51.22. Albumin 2.8. Amylase less than 10. Lipase 21. EKG reveals sinus tachycardia without any acute ST T-wave abnormalities. ASSESSMENT AND PLAN: Ms. Wright is a 36-year-old female with multiple chronic medical conditions and multiple previous hospitalizations who presents to the emergency room with complaints of upper abdominal pain with intractable nausea and vomiting. 1. Upper abdominal pain with intractable nausea and vomiting. This is a frequent complaint for the patient. She states that she was here with identical symptoms just at the end of January. At that time, she was going to be worked up for gallbladder disease. However, she refused to stay in the hospital at that point. I will start with a gallbladder ultrasound as she has not had this performed ever. If the gallbladder ultrasound is at all concerning , we can consider moving to a HIDA scan or surgery evaluation which was previously recommended by Dr. Marrufo. The patient will have numerous antiemetics including Zofran, Compazine and Tigan available for her nausea and morphine available for pain. Additionally, the patient is very constipated. She states her last bowel movement was on 03/06/17. I will order lactulose to see if this will help with her constipation. She states that she has tried Metamucil and castor oil at home and this has not helped. 2. Type 2 diabetes. We will continue Lantus 40 units subcutaneous q.h.s. and lispro sliding scale. 3. Chronic hypoxic respiratory failure. The patient will continue on nasal cannula oxygen. In the emergency room, she was off O2 for a short of period of time and dropped her saturations to 85%. 4. Leukocytosis. The patient presented last time with leukocytosis, this is very similar. There are no clear signs of infection. Her CRP is mildly elevated. I will go ahead and order a portable chest x-ray, especially given the fact that her O2 saturations are still poor. 5. Chest pain. The patient will have a troponin sent now. I do not believe she is having an acute coronary syndrome. Her troponin is frequently elevated and likely related to demand; however, we will await the results of this and she will be monitored on telemetry. 6. Hypertension. The patient's blood pressure is mildly elevated at this time. We will continue amlodipine and losartan for now and monitor her pressure. If her pressures remain elevated, adjustment will need to be made to her antihypertensive regimen. 7. Tobacco abuse. Continue nicotine inhaler. 8. Depression. Continue sertraline. 9. History of deep venous thrombosis and stent to the lower extremity. We will continue warfarin 7.5 mg daily. Her INR is currently pending. 10. DVT prophylaxis. According to the Adult Thrombosis Prophylaxis Risk Factor Assessment Guide, the patient has a total risk factor score of 2 making her moderate risk. Coumadin will be used as DVT prophylaxis. 11. Code status is full. TIME SPENT: Sixty five minutes was spent admitting this patient. [id number]/[facility] #: [id number] VIRI
[2017-03-11] MEDS: Metoclopramide TAB* 10 MG PO SCH ×2 (07:34→12:54)
[2017-03-11] MEDS: Morphine INJ* 4 MG/ML 1 ML CARPUJECT IV PRN ×2 (07:35→11:00)
[2017-03-11] MEDS: Insulin LISPRO* 1 UNITS UNIT SUBCUT SCH ×2 (07:50→13:06)
--- NOTE | 2017-03-11 08:10 | RAD ---
HISTORY: Nausea and vomiting, evaluate for infiltrates COMPARISONS: February 18, 2017 VIEWS: 1: frontal portable view of the chest at 4:35 AM FINDINGS: LINES AND TUBES: None. CARDIOMEDIASTINAL SILHOUETTE: The cardiomediastinal silhouette is normal for portable technique. PLEURA: The costophrenic angles are sharp. No pleural abnormalities are noted. LUNG PARENCHYMA: There is linear opacification of the left upper lung stable from previous examinations consistent with minimal linear pleuroparenchymal scarring. ABDOMEN: The upper abdomen is clear. There is no subphrenic gas. BONES AND SOFT TISSUES: No bone or soft tissue abnormalities are noted. IMPRESSION: NO ACTIVE CARDIOPULMONARY DISEASE.
[2017-03-11] MEDS ORDERED: Aspirin Low Dose CHEW TAB* 81 MG PO SCH (09:00)
[2017-03-11] MEDS ORDERED: Budesonide NEB* 0.5 MG/2 ML NEB.SOLN INH SCH (09:00)
[2017-03-11] MEDS ORDERED: Losartan TAB* 25 MG PO SCH (09:00)
[2017-03-11] MEDS ORDERED: Sertraline* 25 MG TAB PO SCH (09:00)
--- NOTE | 2017-03-11 09:07 | RAD ---
INDICATION: Abdominal pain COMPARISON: CT February 20, 2017 TECHNIQUE: Longitudinal and transverse scans of the right upper quadrant were obtained. Doppler interrogation of the hepatic and portal venous system was performed. FINDINGS: Liver: There is hepatomegaly with hepatic steatosis. There are no masses . The liver measures 22 cm in cephalocaudal dimension. Vessels: There is normal hepatic and portal venous flow. Bile ducts: There is no evidence of intrahepatic or extrahepatic ductal dilatation. The common duct measures 0.5 cm. Gallbladder: There is no evidence of cholelithiasis. The gallbladder wall appears mildly thickened measuring 0.4 cm. The patient was tender over the gallbladder while scanning. Pancreas: The visualized pancreas appears normal Right kidney: The right kidney is normal in size and echogenicity. There are no masses or calculi. There is no evidence of hydronephrosis. The right kidney measures 12.9 x 4.7 x 4.3 cm. IVC and aorta: The aorta and superior vena cava appear normal. Fluid: There is moderate free fluid. The patient is a peritoneal dialysis patient. Other: None. IMPRESSION: 1. Hepatomegaly with hepatic steatosis. 2. Mild gallbladder wall thickening and tenderness. 3. There is free fluid consistent with perineal dialysis.
[2017-03-11 13:06] VITALS: BP 114/72
--- NOTE | 2017-03-11 14:40 | RAD ---
Indication: Nausea and vomiting. Assess for acute cholecystitis. End-stage renal disease. Comparison: March 11, 2017 RIGHT upper quadrant ultrasound. February 20, [address] Technique: 6.600 mCi of Tc-99m Choletec was injected IV. Serial anterior images of the abdomen were obtained immediately following radiopharmaceutical administration to 40 minutes. Additional anterior spot images obtained at 60 and 120 minutes. Report: There is normal hepatic uptake and excretion of the radiopharmaceutical with the gallbladder being visualized at approximately 20 minutes following injection. Bowel activity visualized at approximately 120 minutes. IMPRESSION: 1. Patent cystic duct. No evidence for acute cholecystitis. 2. Delayed transit of radiopharmaceutical to the small bowel consistent with cholestasis.
[2017-03-11] MEDS ORDERED: Warfarin TAB(*) 7.5 MG PO SCH (17:00)
[2017-03-11] MEDS ORDERED: Omeprazole CAP* 20 MG PO SCH (18:00)
[2017-03-11] MEDS ORDERED: amLODIPine TAB* 5 MG PO SCH (18:00)
[2017-03-11] MEDS ORDERED: Gabapentin CAP(*) 100 MG PO SCH (18:00)
--- NOTE | 2017-03-11 19:29 | PN ---
Subjective Date of Service: 03/11/17 Interval History: Patient seen and examined this AM. Appeared tired, wanted increase in frequency of pain meds. Explained US of gallbladder findings. Explained we would send her for HIDA scan today. She is agreeable. States she is still nauseous and wants pain meds every 2 hours, no vomiting. Explained she could have pain meds every 4 hours, not every 2 hours. No vomiting, BG is stable. Objective Vital Signs - 8 hr 03/11/17 12:57 Temperature 98.1 F Pulse Rate 93 Respiratory 16 Rate Blood Pressure 114/72 (mmHg) O2 Sat by Pulse 98 Oximetry Oxygen Devices in Use Now: None Appearance: Alert, NAD Eyes: No Scleral Icterus Ears/Nose/Mouth/Throat: - - poor dentition Neck: Trachea Midline Respiratory: Symmetrical Chest Expansion and Respiratory Effort, Clear to Auscultation Cardiovascular: NL Sounds; No Murmurs; No JVD, RRR Abdominal: - - tender epigastric region Extremities: No Edema, No Clubbing, Cyanosis Skin: No Rash or Ulcers Neurological: Alert and Oriented x 3 Nutrition: - - NPO Result Diagrams: 03/10/17 23:48 03/11/17 01:00 Additional Lab and Data: Lab Results 03/10/17 03/10/17 Range/Units 00:00 00:00 WBC 16.9 H (3.5-10.8) 10^3/ul RBC 4.02 (4.0-5.4) 10^6/ul Hgb 11.0 L (12.0-16.0) g/dl Hct 34 L (35-47) % MCV 84 (80-97) fL MCH 27 (27-31) pg MCHC 33 (31-36) g/dl RDW 20 H (10.5-15) % Plt Count 383 (150-450) 10^3/ul MPV 8 (7.4-10.4) um3 Neut % (Auto) 85.6 H (38-83) % Lymph % (Auto) 7.9 L (25-47) % [place] % (Auto) 3.4 (1-9) % Eos % (Auto) 2.2 (0-6) % Baso % (Auto) 0.9 (0-2) % Absolute Neuts (auto) 14.4 H (1.5-7.7) 10^3/ul Absolute Lymphs (auto) 1.3 (1.0-4.8) 10^3/ul Absolute Monos (auto) 0.6 (0-0.8) 10^3/ul Absolute Eos (auto) 0.4 (0-0.6) 10^3/ul Absolute Basos (auto) 0.2 (0-0.2) 10^3/ul Absolute Nucleated RBC 0 10^3/ul Nucleated RBC % 0.1 Sodium 132 L (133-145) mmol/L Potassium TNP Chloride 97 L (101-111) mmol/L Carbon Dioxide 27 (22-32) mmol/L Anion Gap 8 (2-11) mmol/L BUN 26 H (6-24) mg/dL Creatinine 4.08 H (0.51-0.95) mg/dL Est GFR ( Amer) 15.8 (>60) Est GFR (Non-Af Amer) 12.3 (>60) BUN/Creatinine Ratio 6.4 L (8-20) Glucose 162 H (70-100) mg/dL Calcium 8.7 (8.6-10.3) mg/dL Magnesium 1.6 L (1.9-2.7) mg/dL Total Bilirubin 0.30 (0.2-1.0) mg/dL AST TNP ALT 6 L (7-52) U/L Alkaline Phosphatase 119 H (34-104) U/L C-Reactive Protein 51.22 H (< 5.00) mg/L Total Protein 6.1 L (6.4-8.9) g/dL Albumin 2.8 L (3.2-5.2) g/dL Globulin 3.3 (2-4) g/dL Albumin/Globulin Ratio 0.8 L (1-3) Amylase < 10 L (29-103) U/L Lipase 21 (11.0-82.0) U/L Assess/Plan/Problems-Billing Assessment: - Patient Problems (1) Abdominal pain Code(s): R10.9 - UNSPECIFIED ABDOMINAL PAIN SNOMED Code(s): 87992334 Comment: - Etiology likely diabetic gastroparesis - Gallbladder wall thickening noted - Per patient, has GI at [facility] and is getting outpatient workup - HIDA scan without acute cholycystitis (2) Diabetic neuropathy Code(s): E11.40 - TYPE 2 DIABETES MELLITUS WITH DIABETIC NEUROPATHY, UNSP SNOMED Code(s): 475864519 Comment: - Continue neurontin. (3) Leukocytosis Code(s): D72.829 - ELEVATED WHITE BLOOD CELL COUNT, UNSPECIFIED SNOMED Code(s) : 672814577 Comment: - Afebrile - CRP elevated - Continue to monitor (4) Tobacco abuse Status: Acute Code(s): Z72.0 - TOBACCO USE SNOMED Code(s): 661993420 Comment: - counseled (5) CAD (coronary artery disease) Code(s): I25.10 - ATHSCL HEART DISEASE OF [place] CORONARY ARTERY W/O ANG PCTRS SNOMED Code(s): 31973762 Comment: - Stable (6) ESRD (end stage renal disease) Code(s): N18.6 - END STAGE RENAL DISEASE SNOMED Code(s): 21504591 Comment: - continue PD (7) Gastroparesis Code(s): K31.84 - GASTROPARESIS SNOMED Code(s): 510940422 Comment: - Continue antiemetics and pain meds (8) Hx of insulin dependent diabetes mellitus Code(s): Z86.39 - PERSONAL HISTORY OF ENDO, NUTRITIONAL AND METABOLIC DISEASE SNOMED Code(s): 552018832 Comment: - Labile sugars r/t non-compliance - Monitor AC HS - Lantus with lispro SS (9) COPD (chronic obstructive pulmonary disease) Code(s): J44.9 - CHRONIC OBSTRUCTIVE PULMONARY DISEASE, UNSPECIFIED SNOMED Code(s): 17369610 Comment: - Continue inhalers and nebs Status and Disposition: Patient was unwilling to stay for results of HIDA scan and signed out AMA as per RN. Patient refused to wait to discuss with me. Per RN, patient stated she will se her own GI doctor at [facility] and left. Of note, patient has history of leaving AMA for same complaints and usually does not complete work up and does not abide by recommendations. DC summary will be dictated. Counseling and/or Coordination of Care Minutes: coordinated with RN.
[2017-03-11] MEDS ORDERED: Insulin GLARGINE(*) 1 UNITS UNIT SUBCUT SCH (21:00)
== END 2017-03-11 15:01 | disposition left against medical advice (07) ==
LOC: ED 22:13 → MEDTELE 03-11 03:43
PROVIDERS: ADMIT Hospitalist; ATTEND Internal Medicine
DX: K31.84 Gastroparesis (principal); N18.6 End stage renal disease; E11.40 Type 2 diabetes mellitus with diabetic neuropathy, unspecified; D72.829 Elevated white blood cell count, unspecified; R10.9 Unspecified abdominal pain; R11.2 Nausea with vomiting, unspecified; I25.10 Atherosclerotic heart disease of native coronary artery without angina pectoris; J44.9 Chronic obstructive pulmonary disease, unspecified; R10.11 Right upper quadrant pain; F17.210 Nicotine dependence, cigarettes, uncomplicated; Z79.01 Long term (current) use of anticoagulants; Z79.82 Long term (current) use of aspirin; Z86.39 Personal history of other endocrine, nutritional and metabolic disease; Z99.2 Dependence on renal dialysis
CPT/HCPCS: 36415; 71045; 76705; 78226; 80053; 82150; 83690; 83735; 84484; 85025; 85610; 86140; 93005; 94640; 94760; 96374; 96375; 99283; A9270-GY; A9537; G0378; J0780; J1170; J2270; J2405; J2765; J3250; J3475

== ENCOUNTER 2017-03-15 19:56 | Emergency (ER) | payer OTHER ==
[2017-03-15] MEDS ORDERED: Metoclopramide IV* 5 MG/ML 2 ML VIAL IV ONE (21:04)
[2017-03-15] MEDS ORDERED: HYDROmorphone INJ* 2 MG/ML CARPUJECT SYRINGE IV SLOW PU PRN (21:04)
[2017-03-15] MEDS ORDERED: Famotidine IV* 10 MG/ML 2 ML (20 mg) IV SLOW PU ONE (21:07)
[2017-03-15 22:27] LABS: ABS Basophils 0.1 10^3/ul (0-0.2); ABS Eosinophils 0.3 10^3/ul (0-0.6); ABS Lymphocytes 1.6 10^3/ul (1.0-4.8); ABS Monocytes 0.5 10^3/ul (0-0.8); ABS Neutrophils 12.8 10^3/ul (1.5-7.7); ABS Nucleated RBC 0 10^3/ul; Eosinophil % 1.8 % (0-6); Hematocrit 31 % (35-47); Hemoglobin 10.2 g/dl (12.0-16.0); Lymphocyte % 10.4 % (25-47); Mean Corpuscular HGB Conc 33 g/dl (31-36); Mean Corpuscular Hemoglobin 27 pg (27-31); Mean Corpuscular Volume 84 fL (80-97); Mean Platelet Volume 8 um3 (7.4-10.4); Nucleated Red Blood Cells % 0; Platelet Count 383 10^3/ul (150-450); Red Blood Count 3.73 10^6/ul (4.0-5.4); Red Cell Distribution Width 20 % (10.5-15); White Blood Count 15.3 10^3/ul (3.5-10.8)
[2017-03-15 22:36] LABS: EGFR Non-African American 13.6 (>60)
[2017-03-15 22:53] LABS: INR 1.93 (0.77-1.02)
[2017-03-15 23:09] LABS: Urine Appearance Cloudy; Urine Blood 3+ (Negative); Urine Color Yellow; Urine Ketones Negative (Negative); Urine Protein 3+(>=500 mg/dL) (Negative); Urine Specific Gravity 1.026 (1.010-1.030); Urine Urobilinogen Negative (Negative)
[2017-03-15 23:31] VITALS: BP 177/94
--- NOTE | 2017-03-15 23:32 | ED ---
Jeremiah Palacio Stephanie, scribed for Daria Tan MD on 03/15/17 at 2115 . GI/ HPI - HPI Summary HPI Summary: The pt is a 36 y/o F presenting to the ED with c/o vomiting that began today at 12:00. Symptoms include abd pain, shakes, and muscle spasms. The pt was in the ED on 03/11/17 for abd pain and had a negative HIDA scan. The pt is diabetic and has a history of gastroporesis. She currently takes Methadone prescribed by PCP. - History of Current Complaint Chief Complaint: EDAbdPain Time Seen by Provider: 03/15/17 20:49 Stated Complaint: NAUSE/VOMITING/ABD PAIN Hx Obtained From: Patient Hx Last Menstrual Period: irregular Onset/Duration: Started Hours Ago - 9, Still Present Timing: Intermittent Severity: Moderate Current Severity: Moderate Pain Intensity: 8 Location of Pain: Diffuse Associated Signs and Symptoms: Positive: Vomiting, Abdominal Pain Additional Signs & Symptoms: Positive: Other: - shakes, muscle spasms Aggravating Factor(s): Nothing Alleviating Factor(s): Nothing - Additional Pertinent History Primary Care Physician: [id number] - Allergy/Home Medications Allergies/Adverse Reactions: Allergies Allergy/AdvReac Type Severity Reaction Status Date / Time Heparin Allergy Intermediate pt states Verified 03/15/17 20:47 it gave her a blood clot Niacin Allergy Mild Hives Verified 03/15/17 20:47 Ropinirole [From Requip] Allergy Mild Hives Verified 03/15/17 20:47 Amoxicillin [From Augmentin] AdvReac Mild "Doesn't Verified 03/15/17 20:47 work" Clavulanic Acid AdvReac Mild "Doesn't Verified 03/15/17 20:47 [From Augmentin] work" Codeine AdvReac Mild Nausea And Verified 03/15/17 20:47 Vomiting Erythromycin AdvReac Mild "DOESN'T Verified 03/15/17 20:47 WORK" Metronidazole [From Flagyl] AdvReac Mild Nausea And Verified 03/15/17 20:47 Vomiting Sulfamethoxazole AdvReac Mild Nausea And Verified 03/10/17 22:18 w/Trimethoprim Vomiting [From Bactrim] plastic tape Allergy Mild Blisters Uncoded 03/15/17 20:47 PMH/Surg Hx/FS Hx/Imm Hx Endocrine/Hematology History: Reports: Hx Anticoagulant Therapy - Aspirin., Hx Blood Transfusions, Hx Diabetes, Hx Anemia - hx of - reports had tranfusion in 2013 after mi Comment Only: Hx Thyroid Disease - nodule biopsied, normal Cardiovascular History: Reports: Hx Angina, Hx Cardiac Arrest - in 2013 with CPR, Hx Cardiomegaly, Hx Coronary Artery Disease, Hx Deep Vein Thrombosis, Hx Hypercholesterolemia, Hx Hypertension, Hx Myocardial Infarction, Other Cardiovascular Problems/Disorders Denies: Hx Congestive Heart Failure, Hx Pacemaker/ICD, Hx Valvular Heart Disease Respiratory History: Reports: Hx Asthma, Hx Chronic Obstructive Pulmonary Disease (COPD) - smoker, Hx Sleep Apnea - pt reports thinks, but no official testing done yet, Other Respiratory Problems/Disorders - acute respipatory failure with hypoxia - jan 2016 Denies: Hx Lung Cancer, Hx Pneumonia, Hx Pulmonary Embolism GI History: Reports: Hx Gastroesophageal Reflux Disease, Other GI Disorders - GASTROPARESIS - TAKING OMEPRAZOLE, reglan and zofran Denies: Hx Gall Bladder Disease, Hx Gastrointestinal Bleed, Hx Ulcer, Hx Urosepsis History: Reports: Hx Acute Renal Failure, Hx Chronic Renal Failure - ESRD on PD, Hx Dialysis - PERITONEAL, Hx Kidney Stones, Hx Renal Disease - ESRD on home peritoneal dialysis , Other Problems/Disorders Musculoskeletal History: Reports: Hx Arthritis - back, hips, Hx Back Problems - Sciatica and Herniated L3 disk, Other Musculoskeletal History - partial amputation of toes/foot Sensory History: Reports: Hx Eye Prosthesis - left, 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, Hx Vision Problem Denies: Hx Contacts or Glasses, Hx Hearing Aid Opthamlomology History: Reports: Hx Eye Prosthesis - left, 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, Hx Vision Problem Denies: Hx Contacts or Glasses Neurological History: Reports: Other Neuro Impairments/Disorders - neuropathy Denies: Hx Transient Ischemic Attacks (TIA) Psychiatric History: Reports: Hx Anxiety, Hx Depression, Hx Bipolar Disorder Denies: Hx Eating Disorder, Hx Panic Disorder, Hx Schizophrenia, Hx of Violent Episodes Against Others - Cancer History Cancer Type, 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 MELANOMA REMOVED FROM [facility] 2012 (PROCEDURE DONE 4X);. CARDIAC CATH 2013 - NO STENTS;. LEFT WRIST FISTULA PLACEMENT ([facility]) 2013;. HEMODIALYSIS CATH RIGHT CHEST WALL 2013;. PERITONEAL DIALYSIS CATH 03/2014;. CHEST WALL CATH REMOVAL 08/2015 [facility] [place];. RIGHT GREAT TOE AMPUTATION, [facility] 05/2015;. PLACEMENT RIGHT JUGULAR TESIO HEMODIALYSIS CATHETER [facility] 10/22/2015;. REMOVAL OF JUGULAR CATH - OCT 2015. CARDIAC CATH - stentsx2 right leg. PARTIAL AMPUTATION RIGHT TOES 06/2016. RIGHT TOES ALL REMOVED Hx Anesthesia Reactions: No - Immunization History Date of Tetanus Vaccine: utd Date of Influenza Vaccine: 11/2016 Infectious Disease History: No Infectious Disease History: Reports: Hx of Known/Suspected MRSA - MRSA R 1st toe , History Other Infectious Disease - GANGRENE Denies: Hx Clostridium Difficile, Hx Hepatitis, Hx Human Immunodeficiency Virus (HIV), Hx Shingles, Hx Tuberculosis, Traveled Outside the in Last 30 Days - Family History Known Family History: Positive: Cardiac Disease - father [place] at 42 y/o, Hypertension, Other - Positive for bipolar and depression. Completed suicide to sister. - Social History Occupation: Unemployed Lives: Alone Alcohol Use: None Hx Substance Use: No Substance Use Type: Reports: None, Other Substance Use Comment - Amount & Last Used: METHADONE (noted in chart, not confirmed still prescribed in 11/2016) Hx Tobacco Use: Yes Smoking Status (MU): Heavy Every Day Tobacco Smoker Type: Cigarettes Amount Used/How Often: 1 PPD Length of Time of Smoking/Using Tobacco: 20 YEARS Have You Smoked in the Last Year: Yes Review of Systems Positive: Abdominal Pain Positive: Other - shakes, muscle spasms All Other Systems Reviewed And Are Negative: Yes Physical Exam - Summary Physical Exam Summary: VITAL SIGNS: Reviewed. GENERAL: Pt is chronically ill. She looks older than her age. HEAD AND FACE: No signs of trauma. No ecchymosis, hematomas or skull depressions. No sinus tenderness. EYES: PERRLA, EOMI x 2, No injected conjunctiva, no nystagmus. EARS: Hearing grossly intact. Ear canals and tympanic membranes are within normal limits. MOUTH: Oropharynx within normal limits. NECK: Supple, trachea is midline, no adenopathy, no JVD, no carotid bruit, no c- spine tenderness, neck with full ROM. CHEST: Symmetric, no tenderness at palpation LUNGS: Clear to auscultation bilaterally. No wheezing or crackles. CVS: Regular rate and rhythm, S1 and S2 present, no murmurs or gallops appreciated. ABDOMEN: tenderness over RUQ and epigastric region. Pt has PD catheter in RUQ. No signs of distention. No rebound no guarding, and no masses palpated. Bowel sounds are normal. EXTREMITIES: FROM in all major joints, no edema, no cyanosis or clubbing. NEURO: Alert and oriented x 3. No acute neurological deficits. Speech is normal and follows commands. SKIN: Dry and warm Triage Information Reviewed: Yes Vital Signs On Initial Exam: Initial Vitals Temp Pulse Resp BP Pulse Ox 97.8 F 110 22 163/99 100 03/15/17 19:59 03/15/17 19:59 03/15/17 19:59 03/15/17 19:59 03/15/17 19:59 Vital Signs Reviewed: Yes - Ronald Coma Scale Coma Scale Total: 15 Diagnostics - Vital Signs Vital Signs Temp Pulse Resp BP Pulse Ox 03/15/17 19:59 97.8 F 110 22 163/99 100 - Laboratory Result Diagrams: 03/15/17 22:00 03/15/17 22:00 Lab Statement: Any lab studies that have been ordered have been reviewed, and results considered in the medical decision making process. - EKG 20:03 EKG Rhythm: Sinus Rhythm - 108 BPM EKG Interpretation: Normal axis. Normal interval. No ischemic changes GIGU Course/Dx - Course Course Of Treatment: The pt is feeling better. She is a longstanding diabetic that is poorly controlled. Her symptoms of abd pain and vomiting are most- likely the result of possible gastroporesis. 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 - Diagnoses Provider Diagnoses: Abdominal pain, Gastroparesis Discharge - Discharge Plan Condition: Stable Disposition: HOME Patient Education Materials: Diabetic Gastroparesis (DC) Referrals: Aishwarya Solis MD [Primary Care Provider] - Additional Instructions: RETURN TO EMERGENCY DEPARTMENT FOR ANY NEW OR WORSENING SYMPTOMS The documentation as recorded by the Jeremiah sexton Stephanie accurately reflects the service I personally performed and the decisions made by , Daria Tan MD.
[2017-03-16] MEDS ORDERED: Metoclopramide IV* 5 MG/ML 2 ML VIAL IV ONE (21:30)
== END 2017-03-15 23:42 | disposition home or self-care (01) ==
LOC: ED 19:56
DX: R10.9 Unspecified abdominal pain (principal); K31.84 Gastroparesis; F17.210 Nicotine dependence, cigarettes, uncomplicated; Z79.01 Long term (current) use of anticoagulants; Z79.82 Long term (current) use of aspirin
CPT/HCPCS: 36415; 80053; 81003; 81015; 82150; 83690; 85025; 85610; 85730; 86140; 93005; 96374; 96375; 99283; J1170

== ENCOUNTER 2017-06-04 18:55 | Emergency (ER) | payer OTHER ==
[2017-06-04 19:13] VITALS: BP 182/100
== END 2017-06-04 20:26 | disposition left against medical advice (07) ==
LOC: ED 18:55
DX: R10.9 Unspecified abdominal pain (principal); R11.2 Nausea with vomiting, unspecified; Z53.21 Procedure and treatment not carried out due to patient leaving prior to being seen by health care provider

== ENCOUNTER 2017-06-10 16:10 | Emergency (ER) | payer OTHER ==
[2017-06-10 16:21] VITALS: BP 168/95
== END 2017-06-10 16:55 | disposition left against medical advice (07) ==
LOC: ED 16:10
DX: M79.605 Pain in left leg (principal); M79.604 Pain in right leg; Z53.21 Procedure and treatment not carried out due to patient leaving prior to being seen by health care provider
CPT/HCPCS: 93005; 99281

== ENCOUNTER 2017-06-24 07:35 | Inpatient (IN) | payer OTHER ==
--- OUTSIDE RECORDS SUMMARY | 2017-06-24 08:30 | XMS REPORT | Continuity of Care Document ---
:1980 Author Organization [facility] Care Team Providers Name Role Phone LAINA BURCIAGA Admitting Physician LAINA BURCIAGA Attending Physician YULIYA JOSE Primary Care Physician Allergies and Intolerances Code Code Allergy Type Reaction Severity Start End Status System Substance Date Date 4053 RXNorm Erythromycin Drug Unknown Active Base allergy (disorder) 5224 RXNorm heparin Drug Unknown Active allergy (disorder) 588016 RXNorm Flagyl Drug Unknown Active allergy (disorder) Medications RxNorm Medication Dose Route Instructions Start End Status Date Date 4376511 3 ML Insulin, Subcutaneous subcutaneously 3 Active Aspart, Human 100 times per day UNT/ML Pen (sliding scale) Injector 269882 Acetaminophen 325 1 tab oral orally every 6 /20 Active MG / Hydrocodone hours as needed. 18 Bitartrate 5 MG Oral Tablet 8070616 Acetaminophen 325 1 tab oral orally every 6 /1620 Active MG / Oxycodone hours as needed. 18 Hydrochloride 5 (as needed for MG Oral Tablet severe pain; MDD=4 tablets) Albuterol HFA 2 puff Inhalation inhaled 4 times Active Inhaler 90 per day as mcg/actuation needed. Albuterol 2.5 mg Inhalation inhaled every 4 Active Nebulized hours as needed. (until response) 117579 Amlodipine 10 MG 10 mg oral orally every day Active Oral Tablet 1191 Aspirin 81 mg oral orally every day Active 1894 Calcitriol 0.25 mcg oral orally 2 times Active per day 19740225 Ciprofloxacin 250 250 mg oral orally 2 times Active MG Oral Tablet per day (7 days) 46814 gabapentin 100 mg oral orally 3 times Active per day 747939 Insulin Glargine 40 to 60 Subcutaneous subcutaneously Active 100 UNT/ML unit every day at Injectable bedtime Solution 090183 Losartan 100 mg oral orally every day Active Potassium 100 MG Oral Tablet 20020405 Omeprazole 40 MG 40 mg oral orally every day Active Delayed Release (swallow whole; Oral Capsule do not crush, chew, dissolve, or cut/break) 097045 Promethazine 25 mg oral orally every 6 Active Hydrochloride 25 hours as needed. MG Oral Tablet 345997 Sertraline 100 MG 100 mg oral orally every day Active Oral Tablet Warfarin Oral 7.5 mg oral orally every day Active Problems Code Code System Problem Name Start Date End Date Status 98317302 SNswiftQueue-CT Diabetes mellitus U Active 97250292 SNswiftQueue-CT Kidney disease U Active 69695013 AgenTec-CT Peritoneal dialysis U Active 70741379 RemCareOMED-CT Hypertensive disorder U Active Procedures No data in the system Results Laboratory Results Order: BASIC METABOLIC PANEL Specimen Source: Body Site: Legend: (G,H)=High, (GG,HH,CH,#H)=Above High Threshold, (#,L) =Low, (##,CL,#L,LL)=Below Low Threshold, (C,CC,CA,#A,A)=Abnormal LOINC Test Result Flag Range Units Date 2950-03 1Sodium SerPl-sCnc 130 L 136-145 mmol/L 06/10/2017 20:26 2823-3 1Potassium SerPl-sCnc 3.9 3.5-5.2 mmol/L 06/10/2017 20:26 5-0 1Chloride SerPl-sCnc 97 L 100-108 mmol/L 06/10/2017 20:26 8-9 1CO2 SerPl-sCnc 25 21-32 mmol/L 06/10/2017 20:26 2345-7 1Glucose SerPl-mCnc 469 CH 70-100 mg/dL 06/10/2017 20:26 3094-0 1BUN SerPl-mCnc 23 H 7-21 mg/dL 06/10/2017 20:26 2160-0 1Creat SerPl-mCnc 4.0 H 0.6-1.3 mg/dL 06/10/2017 20:26 Interpretive Homa: 1Normal Kidney Function or Mild Disease - GFR >OR=60 Chronic Kidney Disease - GFR 15-59 Renal Failure - GFR < 15 GFR not calculated on patients under 18 years of age. Calculated (estimated) GFR is based on the MDRD Study equation, which assumes a steady state for creatinine. Estimated GFR may not be appropriate for medication dosing. 26469-9 1Ca-I SerPl-mCnc 8.4 L 8.5-10.8 mg/dL 06/10/2017 20:26 44451-6 1GFR/BSA.pred SerPl-ArVRat 13 06/10/2017 20:26 Performing Lab Footnotes:[facility] - [id number] - [address] [place] [address] BERTA Perry [id number] Order: CBC DIFF Specimen Source: Body Site: Legend: (G,H)=High, (GG,HH, CH,#H)=Above High Threshold, (#,L)=Low, (##,CL,#L,LL)=Below Low Threshold, (C,CC ,CA,#A,A)=Abnormal LOINC Test Result Flag Range Units Date 6690-2 1WBC # Bld Auto 11.6 H 4.8-10.8 K/uL 06/10/2017 20:26 06692-7 1RBC # Bld 3.41 L 4.20-5.40 M/uL 06/10/2017 20:26 718-7 1Hgb Bld-mCnc 10.4 L 12.0-16.0 gm/dL 06/10/2017 20:26 4544-3 1Hct VFr Bld Auto 29.0 L 36.0-48.0 % 06/10/2017 20:26 787-2 1MCV RBC Auto 85.0 80.0-100.0 fL 06/10/2017 20:26 01997-9 1MCHC RBC-mCnc 36.0 30.0-36.5 % 06/10/2017 20:26 71651-9 1MCH RBC Qn 30.6 27.0-34.0 pg 06/10/2017 20:26 72447-3 1RDW RBC 14.2 11.0-15.0 % 06/10/2017 20:26 777-3 1Platelet # Bld Auto 325 130-450 K/uL 06/10/2017 20:26 60020-9 1PMV Bld Auto 7.3 6.0-12.0 fL 06/10/2017 20:26 751-8 1Neutrophils # Bld Auto 79 37-80 % 06/10/2017 20:26 33930-9 1Lymphocytes NFr Bld 15 10-50 % 06/10/2017 20:26 5905-5 1Monocytes NFr Bld Auto 3 0-12 % 06/10/2017 20:26 84320-0 1Eosinophil # Bld 2 <=8 % 06/10/2017 20:26 704-7 1Basophils # Bld Auto 1 <=3 % 06/10/2017 20:26 51236-7 1Neutrophils # Bld 9.1 H 1.8-8.6 K/uL 06/10/2017 20:26 731-0 1Lymphocytes # Bld Auto 1.8 0.5-5.0 K/uL 06/10/2017 20:26 742-7 1Monocytes # Bld Auto 0.3 0.0-1.3 K/uL 06/10/2017 20:26 41370-8 1Eosinophil # Bld 0.3 0.0-0.9 K/uL 06/10/2017 20:26 704-7 1Basophils # Bld Auto 0.1 0.0-0.3 K/ul 06/10/2017 20:26 Performing Lab Footnotes:[facility] - [id number] - [address] [place] [address] BERTA NEAL Order: PT/INR Specimen Source: Body Site: Legend: (G,H)=High, (GG,HH,CH ,#H)=Above High Threshold, (#,L)=Low, (##,CL,#L,LL)=Below Low Threshold, (C,CC, CA,#A,A)=Abnormal LOINC Test Result Flag Range Units Date 5902-2 1PT Time PPP 22.4 H 9.4-12.4 sec 06/10/2017 20:26 6301-6 1INR PPP 1.9 06/10/2017 20:26 Interpretive Homa: 1 INR INTERPERTATION 2.0-3.0 THERAPEUTIC MONITORING 2.5-3.5 HEART VALVE REPLACEMENT Performing Lab Footnotes:[facility] - [id number] - [address] [place] [address] BERTA Perry [id number] Social History Code Code System Social History Description Dates Observed Observation 554594549110205 SNOMED CT Current Smoking Current some day Status smoker UNK AdministrativeGender Sex Assigned At Unknown Vital Signs Code Code System Vitals Value Date 8310-5 LOINC Body Temperature 97.5 [degF] 06/10/2017 8865-8 LOINC Pulse Rate 106 {beats}/min 06/10/2017 9279-1 LOINC Respiratory Rate 18 /min 06/10/2017 86163-6 LOINC O2% BldC Oximetry 97 % 06/10/2017 8480-6 LOINC BP Systolic 154 mm[Hg] 06/10/2017 8462-4 LOINC BP Diastolic 97 mm[Hg] 06/10/2017 8302-2 LOINC Height 65 [in_i] 06/10/2017 83764-5 LOINC Weight 90.72 kg 06/10/2017 3140-1 LOINC Body surface area Derived from formula 1.98 m2 06/10/2017 91195-0 LOINC BMI (Body Mass Index) 33.3 kg/m2 06/10/2017 Goals Section No data in the system Health Concerns No data in the systemEncounter Diagnosis Date Code Code System Diagnosis Status E11.65 ICD10 TYPE 2 DM W/HYPERGLYCEMIA Active Advance Directives *RHIO - CONSENT IS YES Directive Type Effective Date 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 Supporting Document Name Address Phone No Directive Type 12/26/2016 1:26:39 Not Specified Not Specified Not Specified None No specified PM Family History No data in the system Functional Status Code Functional Condition Code System Date Status Independent adls SNOMED CT 06/10/2017 Active Appears well nourished/hydrated SNOMED CT 06/10/2017 Active Immunizations No data in the system Medical Equipment No data in the system Mental Status Code Cognitive Condition Code System Date Status Oriented x [address] 06/10/2017 Active No acute distress SNOMED CT 06/10/[address] 06/10/2017 Active Assessment and Plan Assessments No data in the systemPlan Of Treatment No data in the systemPending Tests No data in the system Hospital Discharge Instructions No data in the system Reason for Visit Reason for Visit Leg Pain
--- OUTSIDE RECORDS SUMMARY | 2017-06-24 08:31 | XMS REPORT | Continuity of Care Document ---
:1980 Author Organization [facility] Care Team Providers Name Role Phone YULIYA JOSE Primary Care Physician Allergies and Intolerances Code Code Allergy Type Reaction Severity Start End Status System Substance Date Date 4053 RXNorm Erythromycin Drug Unknown Active Base allergy (disorder) 5224 RXNorm heparin Drug Unknown Active allergy (disorder) 994830 RXNorm Flagyl Drug Unknown Active allergy (disorder) Medications RxNorm Medication Dose Route Instructions Start End Status Date Date 9536664 3 ML Insulin, Subcutaneous subcutaneously 3 Active Aspart, Human times per day 100 UNT/ML Pen (sliding scale) Injector 524206 Acetaminophen 1 tab oral orally every 6 06/06/19 Active 325 MG / hours as needed. 18 Hydrocodone Bitartrate 5 MG Oral Tablet 0729607 Acetaminophen 1 tab oral orally every 6 06/11/19 Active 325 MG / hours as needed. 18 Oxycodone (as needed for Hydrochloride 5 severe pain; MG Oral Tablet MDD=4 tablets) Albuterol HFA 2 puff Inhalation inhaled 4 times Active Inhaler 90 per day as mcg/actuation needed. Albuterol 2.5 mg Inhalation inhaled every 4 Active Nebulized hours as needed. (until response) 922338 Amlodipine 10 MG 10 mg oral orally every day Active Oral Tablet 1191 Aspirin 81 mg oral orally every day Active 1893 Calcitriol 0.25 oral orally 2 times Active mcg per day 19740225 Ciprofloxacin 250 mg oral orally 2 times Active 250 MG Oral per day (7 days) Tablet 07462 gabapentin 100 mg oral orally 3 times Active per day 160689 Insulin Glargine 40 to Subcutaneous subcutaneously Active 100 UNT/ML 60 unit every day at Injectable bedtime Solution 663965 Losartan 100 mg oral orally every day Active Potassium 100 MG Oral Tablet 420685 Omeprazole 40 MG 40 mg oral orally every day Active Delayed Release (swallow whole; Oral Capsule do not crush, chew, dissolve, or cut/break) 824318 Promethazine 25 mg oral orally every 6 Active Hydrochloride 25 hours as needed. MG Oral Tablet 464966 Sertraline 100 100 mg oral orally every day Active MG Oral Tablet 530659 Warfarin Sodium 7.5 mg oral orally every day Active 5 MG Oral Tablet 1897 Calcium 2500 mg oral orally every day Completed Carbonate (Ordered Dose: of calcium carbonate) Warfarin Oral 10 mg oral orally 2 times Completed per week (Saturday and Saturday) Problems Code Code System Problem Name Start Date End Date Status 84189427 SNOMED-CT Diabetes mellitus U Active 93492445 SNOMED-CT Kidney disease U Active 22134969 SNOMED-CT Peritoneal dialysis U Active 34409934 SNOMED-CT Hypertensive disorder U Active Procedures No data in the system Results Laboratory Results Order: AMYLASE Specimen Source: Body Site : Legend: (G,H)=High, (GG,HH,CH,#H)=Above High Threshold, (#,L)=Low, (##,CL,#L, LL)=Below Low Threshold, (C,CC,CA,#A,A)=Abnormal LOINC Test Result Flag Range Units Date 1798-07 1Amylase Ur-cCnc 10 L 25-125 U/L 06/05/2017 07:55 Performing Lab Footnotes:[facility] - [id number] - [address] [place] [address] BERTA Perry [id number] Order: CBC DIFF Man Diff Specimen Source: Body Site:Order Result Comment:Unable to report platelet count due to the presence of platelet clumps on smear. Legend: (G,H)=High, (GG,HH,CH,#H)=Above High Threshold, (#,L)=Low, (## ,CL,#L,LL)=Below Low Threshold, (C,CC,CA,#A,A)=Abnormal LOINC Test Result Flag Range Units Date 6690-2 1WBC # Bld Auto 13.8 H 4.8-10.8 K/uL 06/05/2017 07:55 03567-1 1RBC # Bld 3.61 L 4.20-5.40 M/uL 06/05/2017 07:55 718-7 1Hgb Bld-mCnc 10.5 L 12.0-16.0 gm/dL 06/05/2017 07:55 4544-3 1Hct VFr Bld Auto 30.7 L 36.0-48.0 % 06/05/2017 07:55 787-2 1MCV RBC Auto 84.9 80.0-100.0 fL 06/05/2017 07:55 56544-5 1MCH RBC Qn 29.2 27.0-34.0 pg 06/05/2017 07:55 37408-3 1MCHC RBC-mCnc 34.3 30.0-36.5 % 06/05/2017 07:55 45421-1 1RDW RBC 14.2 11.0-15.0 % 06/05/2017 07:55 1MANUAL DIFFERENTIAL 70517-9 1Neuts Seg NFr Bld 84 H 37-80 % 06/05/2017 07:55 714-6 1Eosinophil NFr Bld Manual 4 <=8 % 06/05/2017 07:55 09588-8 1Lymphocytes NFr Bld 10 10-50 % 06/05/2017 07:55 743-5 1Monocytes # Bld Manual 2 <=12 % 06/05/2017 07:55 Performing Lab Footnotes:[facility] - [id number] - [address] [place] [address] BERTA NEAL Order: COMPREHENSIVE PANEL Specimen Source: Body Site: Legend: (G,H)= High, (GG,HH,CH,#H)=Above High Threshold, (#,L)=Low, (##,CL,#L,LL)=Below Low Threshold, (C,CC,CA,#A,A)=Abnormal LOINC Test Result Flag Range Units Date 2951-2 1Sodium SerPl-sCnc 130 L 136-145 mmol/L 06/05/2017 07:55 2823-3 1Potassium SerPl-sCnc 4.3 3.5-5.2 mmol/L 06/05/2017 07:55 2075-0 1Chloride SerPl-sCnc 97 L 100-108 mmol/L 06/05/2017 07:55 8-9 1CO2 SerPl-sCnc 20 L 21-32 mmol/L 06/05/2017 07:55 2345-7 1Glucose SerPl-mCnc 411 H 70-100 mg/dL 06/05/2017 07:55 3094-0 1BUN SerPl-mCnc 26 H 7-21 mg/dL 06/05/2017 07:55 2160-0 1Creat SerPl-mCnc 3.7 H 0.6-1.3 mg/dL 06/05/2017 07:55 Interpretive Homa: 1Normal Kidney Function or Mild Disease - GFR >OR=60 Chronic Kidney Disease - GFR 15-59 Renal Failure - GFR < 15 GFR not calculated on patients under 18 years of age. Calculated (estimated) GFR is based on the MDRD Study equation, which assumes a steady state for creatinine. Estimated GFR may not be appropriate for medication dosing. 74665-9 1Ca-I SerPl-mCnc 9.0 8.5-10.8 mg/dL 06/05/2017 07:55 22613-9 1GFR/BSA.pred SerPl-ArVRat 14 06/05/2017 07:55 13427-5 1Bilirub Bld-mCnc 0.2 0.0-1.2 mg/dL 06/05/2017 07:55 2885-2 1Prot SerPl-mCnc 6.2 L 6.4-8.2 gm/dL 06/05/2017 07:55 1751-7 1Albumin SerPl-mCnc 3.1 L 3.4-4.8 gm/dL 06/05/2017 07:55 6768-6 1ALP SerPl-cCnc 117 40-150 U/L 06/05/2017 07:55 1742-6 1ALT SerPl-cCnc 10 0-55 U/L 06/05/2017 07:55 1920-8 1AST SerPl-cCnc 8 5-37 U/L 06/05/2017 07:55 Performing Lab Footnotes:[facility] - [id number] - [address] [place] [address] BERTA NEAL Order: Influenza A&B PCR Specimen Source: Swab Body Site: Legend: (G,H)=High, (GG,HH,CH,#H)=Above High Threshold, (#,L)=Low, (##,CL,#L,LL)=Below Low Threshold, (C,CC,CA,#A,A)=Abnormal LOINC Test Result Flag Range Units Date 78677-3 1FLUAV RNA XXX Ql Not Detected Not Detected 06/05/2017 07:55 PCR 65070-0 1FLUBV RNA XXX Ql Not Detected Not Detected 06/05/2017 07:55 PCR Performing Lab Footnotes:[facility] - [id number] - [address] [place] [address] BERTA NEAL Order: LIPASE Specimen Source: Body Site: Legend: (G,H)=High, (GG,HH,CH ,#H)=Above High Threshold, (#,L)=Low, (##,CL,#L,LL)=Below Low Threshold, (C,CC, CA,#A,A)=Abnormal LOINC Test Result Flag Range Units Date 3040-3 1Lipase SerPl-cCnc 49 8-78 U/L 06/05/2017 07:55 Performing Lab Footnotes:[facility] - [id number] - [address] [place] [address] BERTA SANDOVALD1 Order: Point of Care Glucose ACCUCHECK Specimen Source: Blood Body Site: Legend: (G,H)=High, (GG,HH,CH,#H)=Above High Threshold, (#,L)=Low, (##,CL, #L,LL)=Below Low Threshold, (C,CC,CA,#A,A)=Abnormal LOINC Test Result Flag Range Units Date 1GLUCOSE BedSide 420 CH 70-100 mg/dL 06/05/2017 07:35 Test Comment: [id number] ROBERT MONSALVE Test Comment: 1Cleaned Meter Test Comment: 1RN Notified Performing Lab Footnotes:[facility] - [id number] - [address] [place] [address] BERTA SANDOVALD1 Radiology Results Order: CT-ABD PELVIS NO CONTRAST (DRY )Exam Completion Date:06/05/2017 07: 9:[address]-ABD PELVIS NO CONTRAST (DRY) ORDERING CLINICAL INFORMATION: UNSPECIFIED ABDOMINAL PAIN ADDITIONAL CLINICAL INFORMATION: None. COMPARISON: 01/08/2017 PROCEDURE: CT scan of abdomen and pelvis was performed without oral and IV contrast. Coronal and sagittal reformats were created. CONCURRENT EXAM: Emphysematous changes Chest Base findings: Visualized portion of the lung bases are unremarkable. ABDOMEN FINDINGS: Liver: No focal liver lesions. Biliary Tract: No gallbladder wall thickening. No biliary ductal dilation. No gallstones. Pancreas: Normal Spleen: Normal Adrenals: Normal Kidneys and Collecting Systems: No renal calculi. No hydronephrosis. Stomach and esophagus: Stomach is unremarkable. No hiatal hernia. Abdominal GI Tract: Small bowel is unremarkable. Mesentery and Peritoneal Cavity: No free air. No free fluid. Vessels: Diffuse atherosclerotic disease noted. Lymph Nodes: No lymphadenopathy. Soft Tissues/ Musculoskeletal: No acute bone abnormality. No hernias. PELVIC FINDINGS: Visualized Reproductive Organs: Normal Bladder: Normal Lymph Nodes: No lymphadenopathy. Vessels: Normal Pelvic GI Tract: Mild to moderate ascites. Large bowel is unremarkable. Appendix is not visualized There is catheter seen in the pelvis could be due to peritoneal dialysis. IMPRESSION: Moderate ascites Peritoneal dialysis visualized. END REPORT Electronically signed By: Andrea Paredes Read By: ANDREA MILAN Date: 06/05/2017 09:06 Social History Code Code System Social History Description Dates Observed Observation 37412161 SNOMED CT Current Smoking Smoker, current Status status unknown UNK AdministrativeGender Sex Assigned At Unknown Vital Signs Code Code System Vitals Value Date 8865-8 LOINC Pulse Rate 91 {beats}/min 06/05/2017 8480-6 LOINC BP Systolic 233 mm[Hg] 06/05/2017 8462-4 LOINC BP Diastolic 121 mm[Hg] 06/05/2017 9279-1 LOINC Respiratory Rate 16 /min 06/05/2017 02325-0 LOINC O2% BldC Oximetry 98 % 06/05/2017 8310-5 LOINC Body Temperature 98.2 [degF] 06/05/2017 8302-2 LOINC Height 65 [in_i] 06/05/2017 99414-1 LOINC Weight 90 kg 06/05/2017 3140-1 LOINC Body surface area Derived from formula 1.97 m2 06/05/2017 31012-0 LOINC BMI (Body Mass Index) 33 kg/m2 06/05/2017 Goals Section No data in the system Health Concerns No data in the systemEncounter Diagnosis Date Code Code System Diagnosis Status K52.9 ICD10 NONINFECTIVE GE & COLITIS UNS Active Advance Directives *RHIO - CONSENT IS YES Directive Type Effective Date Spectrographic Analyst Notes Supporting Document Name Address Phone No Directive Type 12/26/2016 1:26:39 Not Specified Not Specified Not Specified None No specified PM Family History No data in the system Functional Status Code Functional Condition Code System Date Status Independent adls SNOMED CT 06/05/2017 Active Appears well nourished/hydrated SNOMED CT 06/05/[address] 06/05/2017 Active Immunizations No data in the system Medical Equipment No data in the system Mental Status Code Cognitive Condition Code System Date Status Weakness SNOMED CT 06/05/2017 Active Moderate distress SNOMED CT 06/05/2017 Active 035720552 Orientated SNOMED CT 06/05/2017 Active 723087301 Mentally alert SNOMED CT 06/05/2017 Active Assessment and Plan Assessments No data in the systemPlan Of Treatment No data in the systemPending Tests No data in the system Hospital Discharge Instructions No data in the system Reason for Visit Reason for Visit Abdominal Pain
--- OUTSIDE RECORDS SUMMARY | 2017-06-24 08:31 | XMS REPORT | Continuity of Care Document ---
:1980 Author Organization [facility] Care Team Providers Name Role Phone BARRY SALDAÑA Admitting Physician BARRY SALDAÑA Attending Physician YULIYA JOSE Primary Care Physician Allergies and Intolerances Code Code Allergy Type Reaction Severity Start End Status System Substance Date Date 4053 RXNorm Erythromycin Drug Unknown Active Base allergy (disorder) 5224 RXNorm heparin Drug Unknown Active allergy (disorder) 477197 RXNorm Flagyl Drug Unknown Active allergy (disorder) Medications RxNorm Medication Dose Route Instructions Start End Status Date Date 5394545 3 ML Insulin, Subcutaneous subcutaneously 3 Active Aspart, Human times per day 100 UNT/ML Pen (sliding scale) Injector 894937 Acetaminophen 1 tab oral orally every 6 06/06/19 Active 325 MG / hours as needed. 18 Hydrocodone Bitartrate 5 MG Oral Tablet 8761163 Acetaminophen 1 tab oral orally every 6 06/11/19 Active 325 MG / hours as needed. 18 Oxycodone (as needed for Hydrochloride 5 severe pain; MG Oral Tablet MDD=4 tablets) Albuterol HFA 2 puff Inhalation inhaled 4 times Active Inhaler 90 per day as mcg/actuation needed. Albuterol 2.5 mg Inhalation inhaled every 4 Active Nebulized hours as needed. (until response) 014859 Amlodipine 10 MG 10 mg oral orally every day Active Oral Tablet 1191 Aspirin 81 mg oral orally every day Active 1894 Calcitriol 0.25 oral orally 2 times Active mcg per day 19740225 Ciprofloxacin 250 mg oral orally 2 times Active 250 MG Oral per day (7 days) Tablet 59603 gabapentin 100 mg oral orally 3 times Active per day 865510 Insulin Glargine 40 to Subcutaneous subcutaneously Active 100 UNT/ML 60 unit every day at Injectable bedtime Solution 227056 Losartan 100 mg oral orally every day Active Potassium 100 MG Oral Tablet 20020405 Omeprazole 40 MG 40 mg oral orally every day Active Delayed Release (swallow whole; Oral Capsule do not crush, chew, dissolve, or cut/break) 600694 Promethazine 25 mg oral orally every 6 Active Hydrochloride 25 hours as needed. MG Oral Tablet 913814 Sertraline 100 100 mg oral orally every day Active MG Oral Tablet Warfarin Oral 7.5 mg oral orally every day Active 195193 Methadone 5 mg oral orally every 6 Completed Hydrochloride 5 hours as needed. MG Oral Tablet Problems Code Code System Problem Name Start Date End Date Status 44521586 SNOMED-CT Diabetes mellitus U Active 33013519 SNOMED-CT Kidney disease U Active 37193429 SNOMED-CT Peritoneal dialysis U Active 62809462 SNOMED-CT Hypertensive disorder U Active Procedures No data in the system Results Laboratory Results Order: Point of Care Glucose ACCUCHECK Specimen Source: Blood Body Site: Legend: (G,H)=High, (GG,HH,CH,#H)=Above High Threshold, (#,L)=Low, (##,CL,#L,LL)=Below Low Threshold, (C,CC,CA,#A,A)=Abnormal LOINC Test Result Flag Range Units Date 1GLUCOSE BedSide 304 CH 70-100 mg/dL 06/08/2017 03:18 Test Comment: [id number] ITZEL SOSA Test Comment: 1No Action Performing Lab Footnotes:[facility] - [id number] - [address] [place] [address] BERTA SANDOVALD1 Order: PT/INR Specimen Source: Body Site: Legend: (G,H)=High, (GG,HH,CH ,#H)=Above High Threshold, (#,L)=Low, (##,CL,#L,LL)=Below Low Threshold, (C,CC, CA,#A,A)=Abnormal LOINC Test Result Flag Range Units Date 5902 1PT Time PPP 15.4 H 9.4-12.4 sec 06/08/2017 01:15 6301-6 1INR PPP 1.3 06/08/2017 01:15 Interpretive Homa: 1 INR INTERPERTATION 2.0-3.0 THERAPEUTIC MONITORING 2.5-3.5 HEART VALVE REPLACEMENT Performing Lab Footnotes:[facility] - [id number] - [address] [place] [address] BERTA NEAL Order: PTT Specimen Source: Body Site: Legend: (G,H)=High, (GG,HH,CH,#H )=Above High Threshold, (#,L)=Low, (##,CL,#L,LL)=Below Low Threshold, (C,CC,CA,# A,A)=Abnormal LOINC Test Result Flag Range Units Date 31732 1aPTT Time Bld 35.6 25.6-36.4 sec 06/08/2017 01:15 Performing Lab Footnotes:[facility] - [id number] - [address] [place] [address] BERTA NEAL Order: B-TYPE NATRIURETIC PEPTID Specimen Source: Body Site: Legend: (G ,H)=High, (GG,HH,CH,#H)=Above High Threshold, (#,L)=Low, (##,CL,#L,LL)=Below Low Threshold, (C,CC,CA,#A,A)=Abnormal LOINC Test Result Flag Range Units Date 87663-1 1BNP SerPl-mCnc 350 H 0-100 pg/mL 06/08/2017 01:00 Performing Lab Footnotes:[facility] - [id number] - [address] [place] [address] BERTA Perry JAIMED1 Order: CBC DIFF Specimen Source: Body Site: Legend: (G,H)=High, (GG,HH, CH,#H)=Above High Threshold, (#,L)=Low, (##,CL,#L,LL)=Below Low Threshold, (C,CC ,CA,#A,A)=Abnormal LOINC Test Result Flag Range Units Date 6690-2 1WBC # Bld Auto 8.7 4.8-10.8 K/uL 06/08/2017 01:00 83302-5 1RBC # Bld 3.33 L 4.20-5.40 M/uL 06/08/2017 01:00 718-7 1Hgb Bld-mCnc 10.4 L 12.0-16.0 gm/dL 06/08/2017 01:00 4544-3 1Hct VFr Bld Auto 28.1 L 36.0-48.0 % 06/08/2017 01:00 787-2 1MCV RBC Auto 84.3 80.0-100.0 fL 06/08/2017 01:00 74893-2 1MCHC RBC-mCnc 37.1 H 30.0-36.5 % 06/08/2017 01:00 49807-2 1MCH RBC Qn 31.3 27.0-34.0 pg 06/08/2017 01:00 45164-3 1RDW RBC 14.1 11.0-15.0 % 06/08/2017 01:00 777-3 1Platelet # Bld Auto 373 130-450 K/uL 06/08/2017 01:00 56278-3 1PMV Bld Auto 7.3 6.0-12.0 fL 06/08/2017 01:00 751-8 1Neutrophils # Bld Auto 69 37-80 % 06/08/2017 01:00 41834-8 1Lymphocytes NFr Bld 22 10-50 % 06/08/2017 01:00 5905-5 1Monocytes NFr Bld Auto 5 0-12 % 06/08/2017 01:00 10141-2 1Eosinophil # Bld 3 <=8 % 06/08/2017 01:00 704-7 1Basophils # Bld Auto 1 <=3 % 06/08/2017 01:00 21890-8 1Neutrophils # Bld 6.0 1.8-8.6 K/uL 06/08/2017 01:00 731-0 1Lymphocytes # Bld Auto 1.9 0.5-5.0 K/uL 06/08/2017 01:00 742-7 1Monocytes # Bld Auto 0.4 0.0-1.3 K/uL 06/08/2017 01:00 25144-5 1Eosinophil # Bld 0.3 0.0-0.9 K/uL 06/08/2017 01:00 704-7 1Basophils # Bld Auto 0.1 0.0-0.3 K/ul 06/08/2017 01:00 Performing Lab Footnotes:[facility] - [id number] - [address] [place] [address] BERTA NEAL Order: CK Specimen Source: Body Site: Legend: (G,H)=High, (GG,HH,CH,#H) =Above High Threshold, (#,L)=Low, (##,CL,#L,LL)=Below Low Threshold, (C,CC,CA,#A ,A)=Abnormal LOINC Test Result Flag Range Units Date 2157-6 1CK SerPl-cCnc 173 21-215 U/L 06/08/2017 01:00 Performing Lab Footnotes:[facility] - [id number] - [address] [place] [address] BERTA CHOWDHURYMAGNUS Order: COMPREHENSIVE PANEL Specimen Source: Body Site: Legend: (G,H)= High, (GG,HH,CH,#H)=Above High Threshold, (#,L)=Low, (##,CL,#L,LL)=Below Low Threshold, (C,CC,CA,#A,A)=Abnormal LOINC Test Result Flag Range Units Date 2951-2 1Sodium SerPl-sCnc 130 L 136-145 mmol/L 06/08/2017 01:00 2823-3 1Potassium SerPl-sCnc 4.8 3.5-5.2 mmol/L 06/08/2017 01:00 2075-0 1Chloride SerPl-sCnc 100 100-108 mmol/L 06/08/2017 01:00 2028-9 1CO2 SerPl-sCnc 19 L 21-32 mmol/L 06/08/2017 01:00 2345-7 1Glucose SerPl-mCnc 568 CH 70-100 mg/dL 06/08/2017 01:00 3094-0 1BUN SerPl-mCnc 23 H 7-21 mg/dL 06/08/2017 01:00 2160-0 1Creat SerPl-mCnc 3.9 H 0.6-1.3 mg/dL 06/08/2017 01:00 Interpretive Homa: 1Normal Kidney Function or Mild Disease - GFR >OR=60 Chronic Kidney Disease - GFR 15-59 Renal Failure - GFR < 15 GFR not calculated on patients under 18 years of age. Calculated (estimated) GFR is based on the MDRD Study equation, which assumes a steady state for creatinine. Estimated GFR may not be appropriate for medication dosing. 87476-2 1Ca-I SerPl-mCnc 8.6 8.5-10.8 mg/dL 06/08/2017 01:00 52628-6 1GFR/BSA.pred SerPl-ArVRat 13 06/08/2017 01:00 78403-5 1Bilirub Bld-mCnc 0.1 0.0-1.2 mg/dL 06/08/2017 01:00 2885-2 1Prot SerPl-mCnc 6.1 L 6.4-8.2 gm/dL 06/08/2017 01:00 1751-7 1Albumin SerPl-mCnc 2.9 L 3.4-4.8 gm/dL 06/08/2017 01:00 6768-6 1ALP SerPl-cCnc 134 40-150 U/L 06/08/2017 01:00 1742-6 1ALT SerPl-cCnc <10 0-55 U/L 06/08/2017 01:00 1920-8 1AST SerPl-cCnc 10 5-37 U/L 06/08/2017 01:00 Performing Lab Footnotes:[facility] - [id number] - [address] [place] [address] BERTA NEAL Order: MAGNESIUM Specimen Source: Body Site: Legend: (G,H)=High, (GG,HH ,CH,#H)=Above High Threshold, (#,L)=Low, (##,CL,#L,LL)=Below Low Threshold, (C, CC,CA,#A,A)=Abnormal LOINC Test Result Flag Range Units Date 33245-3 1Magnesium SerPl-mCnc 1.7 1.7-2.6 mg/dL 06/08/2017 01:00 Performing Lab Footnotes:[facility] - [id number] - [address] [place] [address] BERTA Perry ÁNGEL Order: TROPONIN I Specimen Source: Body Site: Legend: (G,H)=High, (GG, HH,CH,#H)=Above High Threshold, (#,L)=Low, (##,CL,#L,LL)=Below Low Threshold, (C ,CC,CA,#A,A)=Abnormal LOINC Test Result Flag Range Units Date 97377-4 1Troponin I SerPl-mCnc 0.03 0.00-0.04 ng/mL 06/08/2017 01:00 Interpretive Homa: 1 TROPONIN INTERPRETATION 0.00 - 0.04 ng/ml Normal 0.05 - 0.29 ng/ml Dillard Zone, Uncertain for AMI Greater than 0.30 ng/ml Suggestive of AMI Performing Lab Footnotes:[facility] - [id number] - [address] [place] [address] BERTA Perry ÁNGEL Radiology Results Order: CHEST TWO VIEWSExam Completion Date:06/08/2017 00:384 1:26 AM CHEST TWO VIEWS ORDERING CLINICAL INFORMATION: CHEST XRAY-2VIEWS -- CHESTPAIN, UNSPECIFIED ADDITIONAL CLINICAL INFORMATION: None. PROCEDURE: PA and lateral views of the chest. COMPARISON: 01/31/2017 FINDINGS: The cardiomediastinal silhouette is within normal limits. The lungs are clear without airspace consolidation. Pulmonary vascularity is within normal limits. There is no pneumothorax or pleural effusion. Bony thorax is intact. IMPRESSION: Noacute cardiopulmonary disease. Electronically signed By: Yessy Hurst M.D. Read By: YESSY HURST Date: 06/08/2017 01:44Order: US-DOPPLER EXT VEIN BILATERALExam Completion Date:06/08/2017 01:214 2:09 AM US-DOPPLER EXT VEIN BILATERAL ORDERING CLINICAL INFORMATION: Bilat leg PainDiabetic - - Deep venous thrombosis of lower extremity (disorder) ADDITIONAL CLINICAL INFORMATION: None. PROCEDURE: Real-time ultrasound of the deep venous system of both the right and left lower extremities was performed, including color and spectral Doppler analysis. COMPARISON: None. FINDINGS: The deep venous system in both right and left lower extremities from the common femoral vein through the popliteal vein is normally compressible. No echogenic thrombus is seen. There isnormal color flow throughout the visualized deep venous system in both legs. There is normal response to augmentation. The visualized calf veins are patent. IMPRESSION: No evidence of deep venous thrombosis in either the right or left lower extremity. Electronically signed By: Yessy Hurst M.D. Read By: YESSY HURST Date: 06/08/2017 02:13 Social History Code Code System Social History Description Dates Observed Observation 312752147 SNOMED CT Current Smoking Current every day Status smoker UNK AdministrativeGender Sex Assigned At Unknown Vital Signs Code Code System Vitals Value Date 8480-6 LOINC BP Systolic 168 mm[Hg] 06/08/2017 8462-4 LOINC BP Diastolic 97 mm[Hg] 06/08/2017 8310-5 LOINC Body Temperature 98.6 [degF] 06/08/2017 8865-8 LOINC Pulse Rate 102 {beats}/min 06/08/2017 9279-1 [facility] Respiratory Rate 20 /min 06/08/2017 89921-2 [facility] O2% BldC Oximetry 100 % 06/08/2017 3150-0 [facility] Inhaled Oxygen Concentration 3 liters per minute 06/08/2017 8302-2 [facility] Height 65 [in_i] 06/08/2017 80051-7 [facility] Weight 88.45 kg 06/08/2017 3140-1 [facility] Body surface area Derived from 1.96 m2 06/08/2017 formula 52016-5 [facility] BMI (Body Mass Index) 32.4 kg/m2 06/08/2017 Goals Section No data in the system Health Concerns No data in the systemEncounter Diagnosis Date Code Code System Diagnosis Status I24.9 ICD10 ACUTE ISCHEMIC HEART DISEASE UNS Active Advance Directives *RHIO - CONSENT IS YES Directive Type Effective Date Haulage Engine Operator 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 Supporting Document Name Address Phone No Directive Type 12/26/2016 1:26:39 Not Specified Not Specified Not Specified None No specified PM Family History No data in the system Functional Status Code Functional Condition Code System Date Status Independent adls SNOMED CT 06/08/2017 Active Appears well nourished/hydrated SNOMED CT 06/08/2017 Active Immunizations No data in the system Medical Equipment No data in the system Mental Status Code Cognitive Condition Code System Date Status Oriented x [address] 06/08/2017 Active No acute distress SNOMED CT 06/08/[address] 06/08/2017 Active Assessment and Plan Assessments No data in the systemPlan Of Treatment No data in the systemPending Tests No data in the system Hospital Discharge Instructions No data in the system Reason for Visit Reason for Visit Chest Pain
[2017-06-24] MEDS ORDERED: Ketorolac INJ* 30 MG/ML 1 ML VIAL IV ONE (09:05)
[2017-06-24 09:08] LABS: EGFR Non-African American 7.7 (>60)
[2017-06-24 09:10] LABS: ABS Basophils 0.1 10^3/ul (0-0.2); ABS Eosinophils 0.3 10^3/ul (0-0.6); ABS Lymphocytes 1.1 10^3/ul (1.0-4.8); ABS Monocytes 0.9 10^3/ul (0-0.8); ABS Neutrophils 17.3 10^3/ul (1.5-7.7); ABS Nucleated RBC 0 10^3/ul; Eosinophil % 1.4 % (0-6); Hematocrit 28 % (35-47); Hemoglobin 9.5 g/dl (12.0-16.0); Lymphocyte % 5.4 % (25-47); Mean Corpuscular HGB Conc 34 g/dl (31-36); Mean Corpuscular Hemoglobin 29 pg (27-31); Mean Corpuscular Volume 84 fL (80-97); Mean Platelet Volume 8.7 um3 (7.4-10.4); Nucleated Red Blood Cells % 0; Platelet Count 354 10^3/ul (150-450); Red Blood Count 3.32 10^6/ul (4.0-5.4); Red Cell Distribution Width 16 % (10.5-15); White Blood Count 19.6 10^3/ul (3.5-10.8)
[2017-06-24] MEDS ORDERED: Ondansetron INJ* 2 MG/ML VIAL IV ONE (09:10)
--- NOTE | 2017-06-24 09:31 | RAD ---
INDICATION: Shortness of breath. Acute respiratory failure with hypoxia in January 2016. History of tobacco use. COMPARISON: March 11, 2017 TECHNIQUE: Dual energy PA and routine lateral views of the chest were obtained. REPORT: Mildly elevated lung volumes with increased AP thoracic diameter. Mild bilateral perihilar and lower lung zone linear subsegmental atelectasis or scarring similar to the prior exam. Diffuse mild prominence of interstitial markings. No suspicious focal pulmonary lesion, pleural effusion, pneumothorax. The heart, pulmonary vasculature, and mediastinal contours are unremarkable. IMPRESSION: Stigmata of chronic obstructive pulmonary disease. No significant change in bilateral linear subsegmental atelectasis or scarring compared with the March 11, 2017 exam. No superimposed acute cardiopulmonary process evident.
[2017-06-24] MEDS ORDERED: NS 0.9% 1000 ML* 1,000 ML IV ONE (10:31)
[2017-06-24 10:52] LABS: INR 3.18 (0.77-1.02)
[2017-06-24] MEDS ORDERED: Morphine INJ* 4 MG/ML 1 ML CARPUJECT IV ONE (11:30)
[2017-06-24 11:37] LABS: Urine Appearance Cloudy; Urine Blood 1+ (Negative); Urine Color Yellow; Urine Ketones Negative (Negative); Urine Protein 3+(>=500 mg/dL) (Negative); Urine Specific Gravity 1.023 (1.010-1.030); Urine Urobilinogen Negative (Negative)
[2017-06-24] MEDS ORDERED: Morphine VIAL* 4 MG/ML VIAL (1 ml vial) IV ONE (11:55)
[2017-06-24] MEDS ORDERED: Levofloxacin 750 MG IVPREMIX(* 750 MG/150 ML BAG IVPB ONE (12:32)
--- NOTE | 2017-06-24 12:32 | ED ---
Ana Palacio Nilda, scribed for Km Harper MD on 06/24/17 at 0833 . HPI Chest Pain - HPI Summary HPI Summary: This patient is a 36 year old F presenting to [facility] accompanied by family with a chief complaint of constant diffuse CP radiating to bilat shoulders since last night. The patient rates the pain 8/10 in severity. Symptoms aggravated by deep inspiration and recumbent position. Symptoms alleviated by nothing including NTG and Methadone last taken at 0100. Patient reports tremors and nausea. She states she had a similar episode in January 2016 in which she found she had PE. - History of Current Complaint Chief Complaint: EDChestPainROMI Hx Obtained From: Patient Hx Last Menstrual Period: irregular Onset/Duration: Started Minutes Ago, Started Hours Ago, Still Present Timing: Constant Current Severity: Severe Pain Intensity: 8 Pain Scale Used: 0-10 Numeric Chest Pain Location: Diffuse Chest Pain Radiates: Yes Chest Pain Radiates To:: Shoulder - bilat Aggravating Factor(s): Deep Breaths, Recumbent Position Alleviating Factor(s): NTG 123, Other: - methadone Associated Signs and Symptoms: Positive: Other: - tremors and nausea Related History: Similar Episode/Dx as: - January 2016 Dx of PE. - Additional Pertinent History Primary Care Physician: [id number] - Allergy/Home Medications Allergies/Adverse Reactions: Allergies Allergy/AdvReac Type Severity Reaction Status Date / Time amoxicillin [From Augmentin] Allergy See Comment Verified 06/24/17 08:23 clavulanic acid Allergy See Comment Verified 06/24/17 08:23 [From Augmentin] erythromycin base Allergy See Comment Verified 06/24/17 08:23 heparin Allergy See Comment Verified 06/24/17 08:23 metronidazole [From Flagyl] Allergy Nausea And Verified 06/24/17 08:23 Vomiting niacin Allergy Rash Verified 06/24/17 08:23 ropinirole [From Requip] Allergy Hives Verified 06/24/17 08:23 Sulfa (Sulfonamide Allergy Vomiting Verified 06/24/17 08:23 Antibiotics) plastic tape Allergy Mild Blisters Uncoded 06/24/17 08:23 Home Medications: Home Medications Albuterol 2.5MG/3ML (0.083%)* [Ventolin 2.5 MG/3 ML NEB.GRETEL*] 2.5 mg INH Q6H PRN 06/24/17 [History Confirmed 06/24/17] Bethanechol TAB* [Urecholine TAB*] 10 mg PO QID 06/24/17 [History Confirmed ] Insulin ASPART (NF) [Novolog (NF)] 0 - 100 units SUBCUT AC PRN 06/24/17 [ History Confirmed 06/24/17] Insulin GLARGINE(*) [Lantus(*)] 60 units SUBCUT BEDTIME 06/24/17 [History Confirmed 06/24/17] Losartan TAB* [Cozaar TAB*] 75 mg PO DAILY 06/24/17 [History Confirmed 06/24/17] Promethazine TAB* [Phenergan TAB*] 25 mg PO Q8H PRN 06/24/17 [History Confirmed 06/24/17] PMH/Surg Hx/FS Hx/Imm Hx Endocrine/Hematology History: Reports: Hx Anticoagulant Therapy - Aspirin., Hx Blood Transfusions, Hx Diabetes, Hx Anemia - hx of - reports had tranfusion in 2013 after mi Comment Only: Hx Thyroid Disease - nodule biopsied, normal Cardiovascular History: Reports: Hx Angina, Hx Cardiac Arrest - in 2013 with CPR, Hx Cardiomegaly, Hx Coronary Artery Disease, Hx Deep Vein Thrombosis, Hx Hypercholesterolemia, Hx Hypertension, Hx Myocardial Infarction, Other Cardiovascular Problems/Disorders Denies: Hx Congestive Heart Failure, Hx Pacemaker/ICD, Hx Valvular Heart Disease Respiratory History: Reports: Hx Asthma, Hx Chronic Obstructive Pulmonary Disease (COPD) - smoker, Hx Pulmonary Embolism, Hx Sleep Apnea - pt reports thinks, but no official testing done yet, Other Respiratory Problems/Disorders - acute respipatory failure with hypoxia - jan 2016 Denies: Hx Lung Cancer, Hx Pneumonia GI History: Reports: Hx Gastroesophageal Reflux Disease, Other GI Disorders - GASTROPARESIS - TAKING OMEPRAZOLE, reglan and zofran Denies: Hx Gall Bladder Disease, Hx Gastrointestinal Bleed, Hx Ulcer, Hx Urosepsis History: Reports: Hx Acute Renal Failure, Hx Chronic Renal Failure - ESRD on PD, Hx Dialysis - PERITONEAL, Hx Kidney Stones, Hx Renal Disease - ESRD on home peritoneal dialysis , Other Problems/Disorders Musculoskeletal History: Reports: Hx Arthritis - back, hips, Hx Back Problems - Sciatica and Herniated L3 disk, Other Musculoskeletal History - partial amputation of toes/foot Sensory History: Reports: Hx Eye Prosthesis - left, 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, Hx Vision Problem Denies: Hx Contacts or Glasses, Hx Hearing Aid Opthamlomology History: Reports: Hx Eye Prosthesis - left, 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, Hx Vision Problem Denies: Hx Contacts or Glasses Neurological History: Reports: Other Neuro Impairments/Disorders - neuropathy Denies: Hx Transient Ischemic Attacks (TIA) Psychiatric History: Reports: Hx Anxiety, Hx Depression, Hx Bipolar Disorder Denies: Hx Eating Disorder, Hx Panic Disorder, Hx Schizophrenia, Hx of Violent Episodes Against Others - Cancer History Cancer Type, 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 MELANOMA REMOVED FROM [facility] 2012 (PROCEDURE DONE 4X);. CARDIAC CATH 2013 - NO STENTS;. LEFT WRIST FISTULA PLACEMENT ([facility]) 2013;. HEMODIALYSIS CATH RIGHT CHEST WALL 2013;. PERITONEAL DIALYSIS CATH 03/2014;. CHEST WALL CATH REMOVAL 08/[address] [facility] [place];. RIGHT GREAT TOE AMPUTATION, [facility] 05/2015;. PLACEMENT RIGHT JUGULAR TESIO HEMODIALYSIS CATHETER [facility] [place] 10/22/2015;. REMOVAL OF JUGULAR CATH - OCT 2015. CARDIAC CATH - stentsx2 right leg. PARTIAL AMPUTATION RIGHT TOES 06/2016. 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 Completed suicide to sister. - Social History Alcohol Use: None Hx Substance Use: No Substance Use Type: Reports: None, Other Substance Use Comment - Amount & Last Used: METHADONE (noted in chart, not confirmed still prescribed in 11/2016) Hx Tobacco Use: Yes Smoking Status (MU): Heavy Every Day Tobacco Smoker Type: Cigarettes Amount Used/How Often: 1 PPD Length of Time of Smoking/Using Tobacco: 20 YEARS Have You Smoked in the Last Year: Yes Review of Systems Positive: Chest Pain - radiates to bilat shoulders Positive: Nausea Neurological: Other - tremors All Other Systems Reviewed And Are Negative: Yes Physical Exam - Summary Physical Exam Summary: Appearance: The patient is well-nourished in acute distress and in acute pain. Pt has strong odor of tobacco. Skin: The skin is warm and dry and skin color reflects adequate perfusion. HEENT: The head is normocephalic and atraumatic. The pupils are equal and reactive. The conjunctivae are clear and without drainage. Nares are patent and without drainage. Mouth reveals moist mucous membranes and the throat is without erythema and exudate. The external ears are intact. The ear canals are patent and without drainage. The tympanic membranes are intact. Neck: the neck is supple with full range of motion and non-tender. There are no carotid bruits. There is no neck vein distension. Respiratory: Chest is non-tender. Rhonchi in all lung hernandez. Cardiovascular: Heart is tachycardic. There is no murmur or rub auscultated. There is no peripheral edema and pulses are symmetrical and equal. Abdomen: The abdomen is soft and non-tender. There are normal bowel sounds heard in all four quadrants and there is no organomegaly palpated. Musculoskeletal: There is no back tenderness noted. Extremities are non-tender with full range of motion. There is good capillary refill. There is no peripheral edema or calf tenderness elicited. Neurological: Patient is alert and oriented to person, place and time. The patient has symmetrical motor strength in all four extremities. Cranial nerves are grossly intact. Deep tendon reflexes are symmetrical and equal in all four extremities. Psychiatric: The patient has an appropriate affect and does not exhibit any anxiety or depression. Triage Information Reviewed: Yes Vital Signs On Initial Exam: Initial Vitals Temp Pulse Resp BP Pulse Ox 98.6 F 123 16 173/87 93 06/24/17 07:54 06/24/17 07:54 06/24/17 07:54 06/24/17 07:54 06/24/17 07:54 Vital Signs Reviewed: Yes Diagnostics - Vital Signs Vital Signs Temp Pulse Resp BP Pulse Ox 06/24/17 07:54 98.6 F 123 16 173/87 93 - Laboratory Lab Results: Lab Results 06/24/17 06/24/17 06/24/17 Range/Units 08:35 08:35 08:35 WBC 19.6 H (3.5-10.8) 10^3/ul RBC 3.32 L (4.0-5.4) 10^6/ul Hgb 9.5 L (12.0-16.0) g/dl Hct 28 L (35-47) % MCV 84 (80-97) fL MCH 29 (27-31) pg MCHC 34 (31-36) g/dl RDW 16 H (10.5-15) % Plt Count 354 (150-450) 10^3/ul MPV 8.7 (7.4-10.4) um3 Neut % (Auto) 88.4 H (38-83) % Lymph % (Auto) 5.4 L (25-47) % [place] % (Auto) 4.5 (0-7) % Eos % (Auto) 1.4 (0-6) % Baso % (Auto) 0.3 (0-2) % Absolute Neuts (auto) 17.3 H (1.5-7.7) 10^3/ul Absolute Lymphs (auto) 1.1 (1.0-4.8) 10^3/ul Absolute Monos (auto) 0.9 H (0-0.8) 10^3/ul Absolute Eos (auto) 0.3 (0-0.6) 10^3/ul Absolute Basos (auto) 0.1 (0-0.2) 10^3/ul Absolute Nucleated RBC 0 10^3/ul Nucleated RBC % 0 INR (Anticoag Therapy) (0.77-1.02) Sodium 131 L (139-145) mmol/L Potassium 4.0 (3.5-5.0) mmol/L Chloride 94 L (101-111) mmol/L Carbon Dioxide 28 (22-32) mmol/L Anion Gap 9 (2-11) mmol/L BUN 39 H (6-24) mg/dL Creatinine 6.14 H (0.51-0.95) mg/dL Est GFR ( Amer) 9.9 (>60) Est GFR (Non-Af Amer) 7.7 (>60) BUN/Creatinine Ratio 6.4 L (8-20) Glucose 308 H (70-100) mg/dL Lactic Acid 1.2 (0.5-2.0) mmol/L Calcium 8.4 L (8.6-10.3) mg/dL Total Bilirubin 0.30 (0.2-1.0) mg/dL AST 6 L (13-39) U/L ALT 6 L (7-52) U/L Alkaline Phosphatase 141 H (34-104) U/L Troponin I 0.06 H* (<0.04) ng/mL C-Reactive Protein 112.55 H (< 5.00) mg/L Total Protein 6.3 L (6.4-8.9) g/dL Albumin 3.0 L (3.2-5.2) g/dL Globulin 3.3 (2-4) g/dL Albumin/Globulin Ratio 0.9 L (1-3) Urine Color Urine Appearance Urine pH (5-9) Ur Specific [place] (1.010-1.030) Urine Protein (Negative) Urine Ketones (Negative) Urine Blood (Negative) Urine Nitrate (Negative) Urine Bilirubin (Negative) Urine Urobilinogen (Negative) Ur Leukocyte Esterase (Negative) Urine WBC (Auto) (Absent) Urine RBC (Auto) (Absent) Ur Squamous Epith Cells (Absent) Urine Bacteria (Absent) Hyaline Casts (Absent) Urine Glucose (Negative) 06/24/17 06/24/17 Range/Units 08:35 11:15 WBC (3.5-10.8) 10^3/ul RBC (4.0-5.4) 10^6/ul Hgb (12.0-16.0) g/dl Hct (35-47) % MCV (80-97) fL MCH (27-31) pg MCHC (31-36) g/dl RDW (10.5-15) % Plt Count (150-450) 10^3/ul MPV (7.4-10.4) um3 Neut % (Auto) (38-83) % Lymph % (Auto) (25-47) % [place] % (Auto) (0-7) % Eos % (Auto) (0-6) % Baso % (Auto) (0-2) % Absolute Neuts (auto) (1.5-7.7) 10^3/ul Absolute Lymphs (auto) (1.0-4.8) 10^3/ul Absolute Monos (auto) (0-0.8) 10^3/ul Absolute Eos (auto) (0-0.6) 10^3/ul Absolute Basos (auto) (0-0.2) 10^3/ul Absolute Nucleated RBC 10^3/ul Nucleated RBC % INR (Anticoag Therapy) 3.18 H (0.77-1.02) Sodium (139-145) mmol/L Potassium (3.5-5.0) mmol/L Chloride (101-111) mmol/L Carbon Dioxide (22-32) mmol/L Anion Gap (2-11) mmol/L BUN (6-24) mg/dL Creatinine (0.51-0.95) mg/dL Est GFR ( Amer) (>60) Est GFR (Non-Af Amer) (>60) BUN/Creatinine Ratio (8-20) Glucose (70-100) mg/dL Lactic Acid (0.5-2.0) mmol/L Calcium (8.6-10.3) mg/dL Total Bilirubin (0.2-1.0) mg/dL AST (13-39) U/L ALT (7-52) U/L Alkaline Phosphatase (34-104) U/L Troponin I (<0.04) ng/mL C-Reactive Protein (< 5.00) mg/L Total Protein (6.4-8.9) g/dL Albumin (3.2-5.2) g/dL Globulin (2-4) g/dL Albumin/Globulin Ratio (1-3) Urine Color Yellow Urine Appearance Cloudy Urine pH 5.0 (5-9) Ur Specific [place] 1.023 (1.010-1.030) Urine Protein 3+(>=500 mg/dl) A (Negative) Urine Ketones Negative (Negative) Urine Blood 1+ A (Negative) Urine Nitrate Negative (Negative) Urine Bilirubin Negative (Negative) Urine Urobilinogen Negative (Negative) Ur Leukocyte Esterase Negative (Negative) Urine WBC (Auto) Trace(0-5/hpf) (Absent) Urine RBC (Auto) 2+(6-10/hpf) A (Absent) Ur Squamous Epith Cells Present A (Absent) Urine Bacteria 1+ A (Absent) Hyaline Casts Present A (Absent) Urine Glucose 3+(>=500 mg/dl) A (Negative) Result Diagrams: 06/24/17 08:35 06/24/17 08:35 Lab Statement: Any lab studies that have been ordered have been reviewed, and results considered in the medical decision making process. - Radiology CXR Radiology Interpretation Completed By: Radiologist - CXR reveals stigmata of chronic obstructive pulmonary disease. No significant change in bilateral linear subsegmental atelectasis or scarring compared with the March 11, 2017 exam. No superimposed acute cardiopulmonary process evident. Dr. Harper has reviewed this radiology report. - EKG 0742 Cardiac Rate: Tachycardia - 123 bpm EKG Rhythm: Sinus Tachycardia Re-Evaluation - Re-Evaluation First Eval Re-Evaluation Time: 10:22 Comment: Pt states she's feeling a little better. Second Eval Re-Evaluation Time: 11:34 Comment: Reviewed labs, imaging, and admission plan with pt. Chest Pain Course/Dx - Course Course Of Treatment: [1025] Discussed case with Dr. Marrufo (Nephrology). Assessment/Plan: Ms. Wright presented with pleuritic chest pain since last night. Her ECG and Trop were unchanged from her normal. Her CXR was negative however both her BUN and creatinine were about double what they usually run and it is possible that a pneumonia would be missed. She is getting fluids slowly and antibiotics. Dr. Marrufo recommended OBV. - Diagnoses Provider Diagnoses: Chest pain, Bronchitis - Provider Notifications Discussed Care Of Patient With: Fuentes Hardy - Hospitalist Time Discussed With Above Provider: 11:48 Instructed by Provider To: Admit As Inpatient Discharge - Sign-Out/Discharge Documenting (check all that apply): Discharge/Admit/Transfer - Discharge Plan Condition: Stable Disposition: ADMITTED TO [facility] Referrals: Aishwarya Solis MD [Primary Care Provider] - - Billing Disposition and Condition Condition: STABLE Disposition: HOSP-[facility] The documentation as recorded by the Ana sexton Nilda accurately reflects the service I personally performed and the decisions made by me, mK Harper MD.
[2017-06-24] MEDS ORDERED: Al Hydrox/Mg Hydrox/Simet LIQ* 30 ML UDC PO ONE (12:45)
[2017-06-24] MEDS ORDERED: Lidocaine 2% VISCOUS* 15 ML UDC PO ONE (12:45)
[2017-06-24] MEDS ORDERED: Acetaminophen TAB* 325 MG PO PRN (12:46)
[2017-06-24] MEDS ORDERED: Al Hydrox/Mg Hydrox/Simet LIQ* 30 ML UDC PO PRN (12:46)
[2017-06-24] MEDS ORDERED: Ondansetron INJ* 2 MG/ML VIAL IV PRN (12:46)
[2017-06-24] MEDS ORDERED: Albuterol 2.5 MG/3 ML NEB.SOL* (0.083%) INH PRN (12:54)
[2017-06-24] MEDS ORDERED: Albuterol HFA INHALER* 8 gm MDI INH PRN (13:07)
[2017-06-24] MEDS ORDERED: Dextrose 50% Syringe 50 ML* 25 GM/50 ML SYRINGE IV PUSH PRN (13:12)
[2017-06-24] MEDS ORDERED: Gabapentin CAP(*) 100 MG PO SCH (14:00)
[2017-06-24] MEDS ORDERED: Mouth Piece, Nicotine* 1 EACH CARTRIDGE INH PRN (14:05)
[2017-06-24] MEDS ORDERED: Nicotine Inhaler* 10 MG AMP INH PRN (14:05)
[2017-06-24] MEDS: HYDROmorphone INJ* 2 MG/ML CARPUJECT SYRINGE IV SLOW PU PRN ×2 (14:28→19:09)
--- NOTE | 2017-06-24 16:13 | ECHO ---
Patient: JULI PERRY [facility] Rec#: [id number] : 1980 Date: 06/24/2017 Age: 36y Height: 165.1 cm / 65.0 in Weight: 88.45 kg / 194.9 lbs Sex: F BSA: 1.96 Room#: -17 Admit Date#: 06/24/2017 Type: Inpatient Referring: Cheryl Marquez Reading: Michelet Montano MD Tabber: Kati Evans MARCUS CC: Luis Marrufo MD CC: Aishwarya Solis MD Transthoracic Echocardiogram Indication: CP BP: 120/72 HR: 104 Rhythm: Tachycardia Findings History: ESRD with partioneal dialysis,MD,CAD,prior PE,HTN,HLD,smoker. Technical Comments: The study is technically limited due to patient body habitus. Completed at 1445. The study is technically limited due to the patient's smoking history. Left Ventricle: Moderate concentric left ventricular hypertrophy is observed. Global left ventricular wall motion and contractility are within normal limits. There is normal left ventricular systolic function. The estimated ejection fraction is 50-55%. Abnormal left ventricular diastolic function is observed. Left Atrium: The left atrium is mildly dilated. Right Ventricle: The right ventricular cavity size is normal. The right ventricular global systolic function is normal. Right Atrium: The right atrium is mildly dilated. Aortic Valve: The aortic valve is trileaflet. There is no evidence of aortic valve thickening. There is no evidence of aortic regurgitation. There is no evidence of aortic stenosis. Mitral Valve: The mitral valve leaflets are mildly thickened. There is a trace of mitral regurgitation. There is no evidence of mitral stenosis. Tricuspid Valve: The tricuspid valve leaflets are normal. There is trace tricuspid regurgitation. Unable to estimate the right ventricular systolic pressure. There is no tricuspid stenosis. Pulmonic Valve: The pulmonic valve appears normal. There is no evidence of pulmonic regurgitation. There is no pulmonic stenosis. Pericardium: A pericardial fat pad is visualized. Aorta: There is no dilatation of the ascending aorta. There is no dilatation of the aortic arch. There is no dilation of the aortic root. Pulmonary Artery: The main pulmonary artery appears normal. Venous: The venous system is not well visualized. Summary: There are no significant changes when compared to the previous study done on 02/08/16 Conclusions Global left ventricular wall motion and contractility are within normal limits. Moderate concentric left ventricular hypertrophy is observed. There is normal left ventricular systolic function. The estimated ejection fraction is 50-55%. The right ventricular global systolic function is normal. There is no evidence of aortic stenosis. There is a trace of mitral regurgitation. There is trace tricuspid regurgitation. Unable to estimate the right ventricular systolic pressure. A pericardial fat pad is visualized. There are no significant changes when compared to the previous study done on 02/08/16 Measurements Name Value Normal Range RVIDd (AP) 2D 2.8 cm (0.9 - 2.6) RVDdMajor (2D) 2.9 cm (2.2 - 4.4) RAd ISD 4CH 5.1 cm (3.4 - 4.9) RA (A4C)W 4 cm (2.9 - 4.6) IVSd (2D) 1.3 cm (0.6 - 1) LVPWd (2D) 1.6 cm (0.6 - 1) LVIDd (2D) 3.9 cm (3.6 - 5.4) LVIDs (2D) 2.8 cm - LV FS (2D) 28 % (25 - 45) Aortic Annulus 1.7 cm (1.4 - 2.6) Ao root diameter (2D) 2.2 cm (2.1 - 3.5) Ascending Ao 2.3 cm (2.1 - 3.4) Aortic arch 2.2 cm (1.8 - 3.4) Descending Ao 1 cm - LA dimension (AP) 2D 4 cm (2.3 - 3.8) LAd ISD 4CH 5.7 cm (2.9 - 5.3) LA ISD 4CH W 4.2 cm (2.5 - 4.5) Name Value Normal Range LA ESV SP 4CH (A/L) 62 ml - LA ESV SP 2CH (A/L) 44 ml - LA ESV BP (A/L) 56 ml - LA ESV BP (A/L) index 28.41 ml/m2 - LA ESV SP 4CH (MOD) 58 ml - LA ESV SP 2CH (MOD) 39 ml - Name Value Normal Range MV E-wave Vmax 1.1 m/sec - MV deceleration time 89 msec - MV A-wave Vmax 0.9 m/sec - MV E:A ratio 1.16 ratio - LV septal e' Vmax 0.06 m/sec - LV lateral e' Vmax 0.07 m/sec - LV E:e' septal ratio 18.33 ratio - LV E:e' lateral ratio 15.74 ratio - Name Value Normal Range AV Vmax 1.8 m/sec - AV VTI 30.4 cm - AV peak gradient 13.12 mmHg - AV mean gradient 5.15 mmHg - LVOT Vmax 1.1 m/sec - LVOT VTI 19.9 cm - LVOT peak gradient 5.06 mmHg - LVOT mean gradient 2.14 mmHg - Name Value Normal Range TR Vmax 2.7 m/sec - TR peak gradient 30 mmHg - Name Value Normal Range PV Vmax 0.7 m/sec - PV peak gradient 1.9 mmHg -
[2017-06-24] MEDS ORDERED: Insulin LISPRO* 1 UNITS UNIT SUBCUT SCH (16:30)
[2017-06-24] MEDS ORDERED: Warfarin TAB(*) 5 MG PO SCH (17:00)
[2017-06-24] MEDS ORDERED: BETHANECHOL 10 MG PO SCH (17:00)
[2017-06-24] MEDS ORDERED: Omeprazole CAP* 20 MG PO SCH (18:00)
[2017-06-24] MEDS ORDERED: amLODIPine TAB* 5 MG PO SCH (18:00)
[2017-06-24 20:41] VITALS: BP 138/73
[2017-06-24] MEDS ORDERED: Insulin GLARGINE(*) 1 UNITS UNIT SUBCUT SCH (21:00)
--- NOTE | 2017-06-25 02:03 | HP ---
CC: Dr. Aishwarya Solis * HISTORY AND PHYSICAL: DATE OF ADMISSION: 06/24/17 PRIMARY CARE PROVIDER: Dr. Aishwarya Solis. ATTENDING PHYSICIAN WHILE IN THE HOSPITAL: Dr. Fuentes Hardy * (dictated by Cheryl Marquez NP) CHIEF COMPLAINT: 1. Shortness of breath. 2. Chest pain. HISTORY OF PRESENT ILLNESS: Ms. Wright is a 36-year-old female who carries a past medical history significant for end-stage renal disease with ambulatory peritoneal dialysis, acid reflux, coronary artery disease and melanoma who presented to the emergency room with complaints of chest pain that started last p.m. The patient reports that she was lying in bed, watching TV and developed chest pain. She reports that she propped herself up on a pillow to ease the chest pain. She reports that she took 1 nitro at home with no relief. She does report she did have some nausea. She reports that the pain is worse with deep breath. The pain is also worse with coughing and talking. She does report that the pain on evaluation does not ache. She reports it as a squeezing pain that is in her upper chest and radiates under her left breast into her back between her shoulder blades. She does report that she had the same episode approximately 2 years ago and at that time, she went into respiratory failure and cardiac arrested. She was placed in ICU and was in a coma for approximately 1 week and was hospitalized for 2 weeks. She does report a history of her previous cardiac catheterization last being in March 2016 showed 3 blocked arteries. The patient does report that she is chronically on 3 L of oxygen at home, but has recently had to increase her oxygen to 6 L for the past 2 days due to her increased shortness of breath. The patient denies any fever or chills. She does report chest pain x3 days. She does report an occasional cough that is productive with white sputum. She also reports some shortness of breath that started yesterday. She does report she has had occasional chills on and off x3 weeks. She denies any vomiting or diarrhea. Denies any abdominal pain. Denies any hematuria or dysuria. No focal weakness or sensory loss. No visual complaints. No dysphagia. No rashes or lesions. She does report some depression, but denies suicidal or homicidal ideations. Given her symptoms of chest pain and increased shortness of breath, we were asked by the emergency room to evaluate her for admission. PAST MEDICAL HISTORY: Significant for GERD, coronary artery disease, melanoma, end- stage renal disease, type 2 diabetes, gastroparesis, peripheral artery disease, chronic hypoxic respiratory failure requiring O2 continuously, hypertension, hyperlipidemia, asthma, history of tobacco abuse, depression and anxiety. PAST SURGICAL HISTORY: Right transmetatarsal amputation. HOME MEDICATIONS: Include: 1. Phenergan 25 mg p.o. q.8 hours as needed. 2. Bethanechol 10 mg p.o. 4 times a day. 3. Albuterol 2.5/3 mL nebs q.6 hours as needed for shortness of breath. 4. Norvasc 10 mg p.o. q.p.m. 5. Warfarin 7.5 mg p.o. daily. 6. Zofran 4 mg sublingual q.6 hours as needed for nausea. 7. Omeprazole 40 mg p.o. q.p.m. 8. Methadone 10 mg q.6 hours as needed for pain. 9. Cozaar 75 mg p.o. daily. 10. Lantus insulin 60 mg subcu at bedtime. 11. NovoLog sliding scale. 12. Gabapentin 200 mg p.o. t.i.d. 13. Aspirin 81 mg p.o. daily. 14. Albuterol HFA inhaler 2 puffs q.6 hours as needed for shortness of breath. ALLERGIES TO MEDICATIONS: 1. AMOXICILLIN. 2. AUGMENTIN. 3. ERYTHROMYCIN BASE. 4. HEPARIN. 5. FLAGYL. 6. NIACIN. 7. REQUIP. 8. SULFA. 9. PLASTIC TAPE. FAMILY HISTORY: Father with an [place] at age 49. Diabetes: Mom, dad and siblings all have diabetes. Cancer: Grandfather with lung cancer and grandmother with ovarian cancer. SOCIAL HISTORY: The patient reports she smokes a half a pack per day. Denies any alcohol or drug use. She is disabled. She currently lives with her boyfriend. In the event, she is unable to make her own decisions, her boyfriend is to make those decisions. His number is [phone]. REVIEW OF SYSTEMS: There was no documented fever. There has been no significant weight change. There was no double vision. No ear drainage. No rhinorrhea. Denies any sore throat. She does report chest pain. She also reports some shortness of breath. She denies any abdominal pain. She does report some nausea. Denies vomiting. Denies any dysuria or urinary frequency. Denies any hematuria. There has been no dysphagia. No visual complaints. No focal weakness. No rashes or lesions. She does report some depression, but denies any suicidal or homicidal ideation. A review of 14 systems was completed and all others are negative. PHYSICAL EXAMINATION GENERAL: At this time, Ms. Wright is a 36-year-old female who appears fatigue , resting on the stretcher in the emergency room. She does appear to have mild respiratory distress. VITAL SIGNS: As follows: Blood pressure 127/95, heart rate was 100, respirations are 14, O2 saturation is 88% to 91% on 8 L in the emergency room via nasal cannula. HEENT: Head is atraumatic, normocephalic. Eyes: EOMs are intact. Sclerae anicteric and not pale. Oral mucosa appears to be moist. NECK: Supple. LUNGS: Clear to auscultation bilaterally with diminished lung sounds in the bases. There were no wheezes, rales or rhonchi. HEART: Sounds S1, S2. Regular rate and rhythm. There were no murmurs, rubs or gallops. ABDOMEN: Soft, obese, nontender. Bowel sounds are present x4. EXTREMITIES: Pulses are +2 throughout. There is no lower extremity edema. She is able to move all 4 extremities. NEUROLOGIC: She is alert and oriented x3. Her speech is clear. There are no focal deficits. SKIN: Intact. DIAGNOSTIC STUDIES/LAB DATA: WBCs are 19.6, RBCs are 3.32, hemoglobin was 9.5 , hematocrit was 28, platelet count was 354, INR was 3.18. Chemistry: Sodium was 131, potassium 4.0, chloride was 94, carbon dioxide was 28, anion gap was 9 , BUN was 39, creatinine 6.14, which appears to be above her baseline. Glucose was 308, lactic acid was 1.2, calcium 8.4, ASTs were 6, ALTs were 6, troponin was 0.06 x3. C-reactive protein was 112.55, total protein was 6.3, albumin was 3.0, procalcitonin was 1.4. Her urine; pH was 5, specific gravity was 1.023. Urine protein was +3, ketones were negative. Urine blood was +1, urine nitrites were negative, bilirubin was negative. Urobilinogen was negative. Urine leukocyte esterase was negative. Urine wbc's were trace, rbc's 2.0. Urine squamous epithelial cells were present. Bacteria is +1. Hyaline cast was present. Urine glucose was +3. She did have a chest x-ray, radiologist's impression: Stigmata of chronic obstructive pulmonary disease. No significant change in bibasilar linear subsegmental atelectasis or scarring compared with the 03/11/17 exam. No superimposed acute cardiopulmonary process is evident. There were no pleural effusions. No pulmonary lesions. No pneumothorax. She did have electrocardiogram completed, which showed sinus cardiac at a rate of 101. ASSESSMENT AND PLAN: Ms. Wright is a 36-year-old female who presented to the emergency room today with complaints of shortness of breath and chest pain. We were asked to evaluate her for her shortness of breath and chest pain. She will be admitted to the ICU for: 1. Acute on chronic hypoxemic respiratory failure. We will continue her on oxygen via facemask at 6 L to keep her saturations above 92%. We will give her albuterol nebulizer as needed for shortness of breath and wheezing. She was also started on Levaquin in the emergency room. We will continue her Levaquin during her hospitalization. This will be renal dosed at 500 mg q.48 hours. We will continue to support her oxygen needs and titrate her oxygen as needed. I do suspect that she may have some underlying pneumonia as her procalcitonin is mildly elevated. 2. Chest pain. We will do an echo and serial troponins. We will also repeat an EKG. I requested her last cardiac catheterization report from Dr. Shelton as well as her last Cardiology followup. I will also order a nuclear stress for the morning. She was given Dilaudid for pain management. She refused nitroglycerin sublingual. The patient has requested that she not be given morphine and that she be given Dilaudid and stronger medications to help with her pain control. 3. End-stage renal disease. She should continue peritoneal dialysis every 6 hours as she does at home. Her urinalysis does show some bacteria and blood in the urine. Her urine culture is pending. 4. Diabetes. We will continue her on fingersticks a.c. and h.s. with Lantus 60 units coverage and lispro sliding scale. 5. Hypertension and coronary artery disease. We will continue her on Norvasc and aspirin as well as Cozaar. 6. Acid reflux. We will continue her on omeprazole 40 mg p.o. q.p.m. She has a history of deep vein thrombosis and stenting to the lower extremity. We will continue her Coumadin today given her INR is 3.18 and we will resume when able. 7. DVT prophylaxis. We will continue to use her Coumadin as DVT prophylaxis when able supratherapeutic INR. We will hold her Coumadin today and resume tomorrow after a repeat INR. 8. Tobacco abuse. We will continue nicotine inhaler. 9. Leukocytosis. The patient has presented several times with leukocytosis. There is no clear sign of infection. She has no fevers. Her procalcitonin was mildly elevated at 1.4 and her chest x-ray was completed in the emergency room that was negative. Given her poor O2 saturation and requiring additional oxygen to maintain saturations above 92%, I suspect this may be related to underlying possible pneumonia. 10. Code status. She is a full code. 11. Fluids, electrolytes, and nutrition. She can be placed on a heart healthy diet. TIME SPENT: Time spent on this admission was approximately 60 minutes, greater than half the time was spent [id number] with the patient obtaining my history and physical. The other half time was spent going over my plan of care with the patient and implementing my plan of care. I discussed this with my attending, Dr. Fuentes Hardy, and he is in agreement with my plan. CHERYL MARQUEZ, BRA[employer]ING F[employer]NACE OPERATOR [id number]/[facility] #: [id number] VIRI
--- NOTE | 2017-06-25 02:11 | DS ---
CC: Dr. Solis; Dr. Marrufo * DISCHARGE SUMMARY: DATE OF ADMISSION: 06/24/17 DATE OF DISCHARGE: 06/24/17 PROVIDER: Vandana Marquez NP ATTENDING PROVIDER: Fuentes Hardy MD * (DICTATED BY VANDANA MARQUEZ NP) CHIEF COMPLAINT: Shortness of breath and chest pain. HISTORY AND HOSPITAL COURSE: The patient presented to the emergency room on for evaluation of shortness of breath and chest pain. The patient received serial troponins, EKGs and echocardiogram. The patient also had a chest x- ray for her shortness of breath, a D-dimer, which was negative. Throughout the afternoon and early evening, the patient continued to request to leave against medical advice. The patient was spoke to several times by myself and Dr. Hardy and encouraged to stay for further treatment in the hospital. The patient continued to refuse to stay for further treatment. I did discuss with the patient the risk of leaving the hospital including , serious disability and serious infection. The patient is competent. She is alert and oriented and understands these risks. The patient does report she is not suicidal or homicidal. The patient reports that she just like to return home. The patient was strongly advised to remain in the hospital to receive IV antibiotics and oxygen support in that she has a risk of hypoxic respiratory failure requiring increased oxygen support. The patient continues to decline wanting to stay in the hospital. The patient did sign out AMA and did verbalize understanding of the risks of leaving including , severe disability and severe illness. Given her increased shortness of breath, I will discharge this patient with antibiotic therapy for possible underlying pneumonia. She was given Levaquin. She is to take 500 mg p.o. q.48 hours x3 doses. I am recommending that she hold her Coumadin today and tomorrow as Levaquin can increase her INR. I recommended and gave her a prescription for repeat INR in 2 days. I recommend that she follow up with her primary care provider in 1 to 3 days. I also instructed her to return to the emergency room if she has any increased shortness of breath or chest pain or any worsening of her symptoms. Again, this patient did sign out AMA and was advised of all the risks of leaving. VANDANA MARQUEZ, FOUNTAIN PEN TURNER [id number]/[facility] #: [id number] [facility] HOSPITALVika
[2017-06-25] MEDS ORDERED: Losartan TAB* 25 MG PO SCH (09:00)
[2017-06-25] MEDS ORDERED: Aspirin 81 mg CHEW TAB* 81 MG TAB.CHEW PO SCH (09:00)
[2017-06-25] MEDS ORDERED: Warfarin TAB(*) 5 MG PO SCH (17:00)
== END 2017-06-24 20:30 | disposition left against medical advice (07) | DRG 133 ==
LOC: ED 07:35 → ICU 13:03
PROVIDERS: ADMIT Internal Medicine; ATTEND Internal Medicine
PROC: 3E1M39Z Irrigation of Peritoneal Cavity using Dialysate, Percutaneous Approach (ICD-10-PCS; principal; 2017-06-24)
DX: J96.21 Acute and chronic respiratory failure with hypoxia (principal); N18.6 End stage renal disease; J18.9 Pneumonia, unspecified organism; I12.0 Hypertensive chronic kidney disease with stage 5 chronic kidney disease or end stage renal disease; J44.0 Chronic obstructive pulmonary disease with (acute) lower respiratory infection; K21.9 Gastro-esophageal reflux disease without esophagitis; I25.10 Atherosclerotic heart disease of native coronary artery without angina pectoris; E11.22 Type 2 diabetes mellitus with diabetic chronic kidney disease; E11.43 Type 2 diabetes mellitus with diabetic autonomic (poly)neuropathy; K31.84 Gastroparesis; E11.51 Type 2 diabetes mellitus with diabetic peripheral angiopathy without gangrene; E78.5 Hyperlipidemia, unspecified; F41.9 Anxiety disorder, unspecified; J96.11 Chronic respiratory failure with hypoxia; F17.210 Nicotine dependence, cigarettes, uncomplicated; D72.829 Elevated white blood cell count, unspecified; M16.0 Bilateral primary osteoarthritis of hip; M47.9 Spondylosis, unspecified; H54.8 Legal blindness, as defined in USA; E11.40 Type 2 diabetes mellitus with diabetic neuropathy, unspecified; F31.9 Bipolar disorder, unspecified; Z99.2 Dependence on renal dialysis; Z85.820 Personal history of malignant melanoma of skin; Z81.8 Family history of other mental and behavioral disorders; Z99.81 Dependence on supplemental oxygen; Z89.431 Acquired absence of right foot; Z88.0 Allergy status to penicillin; Z88.2 Allergy status to sulfonamides; Z88.8 Allergy status to other drugs, medicaments and biological substances; Z82.49 Family history of ischemic heart disease and other diseases of the circulatory system; Z83.3 Family history of diabetes mellitus; Z80.1 Family history of malignant neoplasm of trachea, bronchus and lung; Z80.41 Family history of malignant neoplasm of ovary; I25.2 Old myocardial infarction; Z86.718 Personal history of other venous thrombosis and embolism; Z87.442 Personal history of urinary calculi; Z97.0 Presence of artificial eye
CPT/HCPCS: 36415; 71046; 80053; 81003; 81015; 83605; 84145; 84484; 85025; 85379; 85610; 86140; 87086; 87641; 90945; 93005; 93306; 99284; A9270-GY; G0257; J1170; J1885; J2270; J2405

== ENCOUNTER 2017-09-22 16:34 | Emergency (ER) | payer OTHER ==
[2017-09-22 16:44] VITALS: BP 178/105
--- NOTE | 2017-09-22 16:58 | ED ---
Throat Pain/Nasal Congestion - HPI Summary HPI Summary: 37 yr old female with the complaint of sore throat. Onset of symptoms a couple of days ago with sore throat, and some tonsil swelling. No fever, chills. She has felt like she has had to clear her throat, and coughs to clear throat. no drooling, no stridor, no productive cough, no SOB. She is a Diabetic on dialysis. - History of Current Complaint Chief Complaint: UCGeneralIllness Time Seen by Provider: 09/22/17 16:42 - Allergies/Home Medications Allergies/Adverse Reactions: Allergies Allergy/AdvReac Type Severity Reaction Status Date / Time amoxicillin [From Augmentin] Allergy See Comment Verified 09/22/17 16:45 clavulanic acid Allergy See Comment Verified 09/22/17 16:45 [From Augmentin] erythromycin base Allergy See Comment Verified 09/22/17 16:45 heparin Allergy See Comment Verified 09/22/17 16:45 metronidazole [From Flagyl] Allergy Nausea And Verified 09/22/17 16:45 Vomiting niacin Allergy Rash Verified 09/22/17 16:45 ropinirole [From Requip] Allergy Hives Verified 09/22/17 16:45 Sulfa (Sulfonamide Allergy Vomiting Verified 09/22/17 16:45 Antibiotics) plastic tape Allergy Mild Blisters Uncoded 09/22/17 16:45 Home Medications: Home Medications Aspirin 81 mg CHEW TAB* 81 mg PO BEDTIME 09/22/17 [History Confirmed 09/22/17] Warfarin TAB(*) [Coumadin TAB(*)] 7.5 mg PO BEDTIME 09/22/17 [History Confirmed 09/22/17] PMH/Surg Hx/FS Hx/Imm Hx Endocrine/Hematology History: Reports: Hx Anticoagulant Therapy - Aspirin., Hx Blood Transfusions, Hx Diabetes, Hx Thyroid Disease, Hx Anemia - hx of - reports had tranfusion in 2013 after mi Cardiovascular History: Reports: Hx Angina, Hx Cardiac Arrest - in 2013 with CPR, Hx Cardiomegaly, Hx Coronary Artery Disease, Hx Deep Vein Thrombosis, Hx Hypercholesterolemia, Hx Hypertension, Hx Myocardial Infarction, Other Cardiovascular Problems/Disorders Denies: Hx Congestive Heart Failure, Hx Pacemaker/ICD, Hx Valvular Heart Disease Respiratory History: Reports: Hx Asthma, Hx Chronic Obstructive Pulmonary Disease (COPD) - smoker, Hx Pneumonia, Hx Sleep Apnea, Other Respiratory Problems/Disorders - acute respipatory failure with hypoxia - jan 2016 Denies: Hx Lung Cancer, Hx Pulmonary Embolism - pt says no, although documented in char GI History: Reports: Hx Gall Bladder Disease, Hx Gastroesophageal Reflux Disease , Other GI Disorders - GASTROPARESIS - TAKING OMEPRAZOLE, reglan and zofran Denies: Hx Gastrointestinal Bleed, Hx Ulcer, Hx Urosepsis History: Reports: Hx Acute Renal Failure, Hx Chronic Renal Failure - ESRD on PD, Hx Dialysis - PERITONEAL, Hx Kidney Stones, Hx Renal Disease - ESRD on home peritoneal dialysis , Other Problems/Disorders Musculoskeletal History: Reports: Hx Arthritis - back, hips, Hx Back Problems - Sciatica and Herniated L3 disk, Other Musculoskeletal History - partial amputation of toes/foot Sensory History: Reports: Hx Eye Prosthesis - left, 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 no vision in left, Hx Vision Problem Denies: Hx Contacts or Glasses Neurological History: Reports: Other Neuro Impairments/Disorders - neuropathy Denies: Hx Transient Ischemic Attacks (TIA) Psychiatric History: Reports: Hx Anxiety, Hx Depression, Hx Bipolar Disorder Denies: Hx Eating Disorder, Hx Panic Disorder, Hx Schizophrenia, Hx of Violent Episodes Against Others - Cancer History Cancer Type, 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 MELANOMA REMOVED FROM [facility] 2012 (PROCEDURE DONE 4X);. CARDIAC CATH 2014 - NO STENTS;. LEFT WRIST FISTULA PLACEMENT ([facility]) 2013;. HEMODIALYSIS CATH RIGHT CHEST WALL 2013;. PERITONEAL DIALYSIS CATH 03/2014;. CHEST WALL CATH REMOVAL 08/2015 [facility] [place];. RIGHT GREAT TOE AMPUTATION, [facility] [place] 05/2015;. PLACEMENT RIGHT JUGULAR TESIO HEMODIALYSIS CATHETER [facility] [place] 10/22/2015;. REMOVAL OF JUGULAR CATH - OCT 2015. CARDIAC CATH - stentsx2 right leg. PARTIAL AMPUTATION RIGHT TOES 06/2016. RIGHT TOES ALL REMOVED Hx Anesthesia Reactions: No - Immunization History Date of Tetanus Vaccine: utd Date of Influenza Vaccine: 11/2016 Infectious Disease History: No Infectious Disease History: Reports: Hx of Known/Suspected MRSA - MRSA R 1st toe , History Other Infectious Disease - GANGRENE Denies: Hx Clostridium Difficile, Hx Hepatitis, Hx Human Immunodeficiency Virus (HIV), Hx Shingles, Hx Tuberculosis, Traveled Outside the [place] in Last 30 Days - Family History Known Family History: Positive: Cardiac Disease - father [place] at 42 y/o, Hypertension, Other - Positive for bipolar and depression. Completed suicide to sister. - Social History Alcohol Use: None Hx Substance Use: No Substance Use Type: Reports: None Substance Use Comment - Amount & Last Used: METHADONE (noted in chart, not confirmed still prescribed in 11/2016) Hx Tobacco Use: Yes Smoking Status (MU): Heavy Every Day Tobacco Smoker Type: Cigarettes Amount Used/How Often: 1 PPD Length of Time of Smoking/Using Tobacco: 20 YEARS Have You Smoked in the Last Year: Yes Review of Systems Constitutional: Negative Positive: Sore Throat All Other Systems Reviewed And Are Negative: Yes Physical Exam Triage Information Reviewed: Yes Vital Signs On Initial Exam: Initial Vitals Temp Pulse Resp BP Pulse Ox 98 F 106 16 178/105 98 09/22/17 16:40 09/22/17 16:40 09/22/17 16:40 09/22/17 16:40 09/22/17 16:40 Vital Signs Reviewed: Yes Appearance: Positive: Well-Appearing, No Pain Distress Skin: Positive: Warm, Skin Color Reflects Adequate Perfusion Head/Face: Positive: Normal Head/Face Inspection Eyes: Positive: EOMI ENT: Positive: Pharyngeal erythema, TMs normal, Tonsillar swelling, Uvula midline. Negative: Nasal congestion, Nasal drainage, Tonsillar exudate, Muffled voice, Hoarse voice Neck: Positive: Nontender Respiratory/Lung Sounds: Positive: Clear to Auscultation, Breath Sounds Present Cardiovascular: Positive: RRR. Negative: Murmur Abdomen Description: Positive: Nontender Musculoskeletal: Positive: Strength/ROM Intact Neurological: Positive: Sensory/Motor Intact, Alert, Oriented to Person Place, Time, CN Intact II-III Psychiatric: Positive: Normal - Ronald Coma Scale Best Eye Response: 4 - Spontaneous Best Motor Response: 6 - Obeys Commands Best Verbal Response: 5 - Oriented Coma Scale Total: 15 Diagnostics - Vital Signs Vital Signs Temp Pulse Resp BP Pulse Ox 09/22/17 16:40 98 F 106 16 178/105 98 - Laboratory Lab Statement: Any lab studies that have been ordered have been reviewed, and results considered in the medical decision making process. EENT Course/Dx - Course Course Of Treatment: 37 yr old female with sore throat. - Diagnoses Provider Diagnoses: Sore throat, Hypertension Discharge - Sign-Out/Discharge Documenting (check all that apply): Patient Departure - Discharge Plan Condition: Good Disposition: HOME Patient Education Materials: Hypertension (ED), Strep Throat (ED) Referrals: Aishwarya Solis MD [Primary Care Provider] - 2 Days - Billing Disposition and Condition Condition: GOOD Disposition: Home
== END 2017-09-22 17:17 | disposition home or self-care (01) ==
LOC: UCCORT 16:34
DX: J02.9 Acute pharyngitis, unspecified (principal); I10 Essential (primary) hypertension; E11.9 Type 2 diabetes mellitus without complications; I25.2 Old myocardial infarction; I25.10 Atherosclerotic heart disease of native coronary artery without angina pectoris; K21.9 Gastro-esophageal reflux disease without esophagitis; F17.210 Nicotine dependence, cigarettes, uncomplicated; Z88.0 Allergy status to penicillin; Z88.1 Allergy status to other antibiotic agents; Z88.2 Allergy status to sulfonamides; Z88.8 Allergy status to other drugs, medicaments and biological substances; Z91.048 Other nonmedicinal substance allergy status; Z79.01 Long term (current) use of anticoagulants; Z79.82 Long term (current) use of aspirin
CPT/HCPCS: 87651; 99212; G0463

== ENCOUNTER 2017-10-28 13:27 | Emergency (ER) | payer OTHER ==
[2017-10-28 14:43] LABS: ABS Basophils 0.1 10^3/ul (0-0.2); ABS Eosinophils 0.2 10^3/ul (0-0.6); ABS Lymphocytes 1.1 10^3/ul (1.0-4.8); ABS Monocytes 0.5 10^3/ul (0-0.8); ABS Neutrophils 8.7 10^3/ul (1.5-7.7); ABS Nucleated RBC 0 10^3/ul; Eosinophil % 1.4 % (0-6); Hematocrit 45 % (35-47); Hemoglobin 14.9 g/dl (12.0-16.0); Lymphocyte % 10.8 % (25-47); Mean Corpuscular HGB Conc 33 g/dl (31-36); Mean Corpuscular Hemoglobin 29 pg (27-31); Mean Corpuscular Volume 86 fL (80-97); Nucleated Red Blood Cells % 0.2; Platelet Count 359 10^3/ul (150-450); Red Blood Count 5.18 10^6/ul (4.00-5.40); Red Cell Distribution Width 16 % (10.5-15); White Blood Count 10.5 10^3/ul (3.5-10.8)
--- NOTE | 2017-10-28 15:16 | ED ---
Abdominal Pain/Female - HPI Summary HPI Summary: The pt is a 37 y/o female presenting to [facility] c/o acute on chronic epigastric pain since one week ago worsened today. The pain rated 6/10 in intensity radiates to the back. She notes nausea, vomiting, diarrhea, back pain, abdominal bloating and tenderness, fever, chills, and dysuria. - History of Current Complaint Chief Complaint: EDAbdPain Stated Complaint: ABD PAIN/VOMITING Time Seen by Provider: 10/28/17 15:10 Hx Obtained From: Patient Hx Last Menstrual Period: 09/01/17 Onset/Duration: Other - Acute on chronic Timing: Constant Severity Currently: Moderate Pain Intensity: 6 Pain Scale Used: 0-10 Numeric Location: Epigastric Radiates: Yes Radiates to: Back Associated Signs and Symptoms: Positive: Fever, Back Pain, Urinary Symptoms - Dysuria, Nausea, Vomiting, Diarrhea, Other: - Positive: bloating Allergies/Adverse Reactions: Allergies Allergy/AdvReac Type Severity Reaction Status Date / Time amoxicillin [From Augmentin] Allergy See Comment Verified 10/28/17 14:03 clavulanic acid Allergy See Comment Verified 10/28/17 14:03 [From Augmentin] erythromycin base Allergy See Comment Verified 10/28/17 14:03 heparin Allergy See Comment Verified 10/28/17 14:03 metronidazole [From Flagyl] Allergy Nausea And Verified 10/28/17 14:03 Vomiting niacin Allergy Rash Verified 10/28/17 14:03 ropinirole [From Requip] Allergy Hives Verified 10/28/17 14:03 Sulfa (Sulfonamide Allergy Vomiting Verified 10/28/17 14:03 Antibiotics) plastic tape Allergy Mild Blisters Uncoded 10/28/17 14:03 PMH/Surg Hx/FS Hx/Imm Hx Previously Healthy: No Endocrine/Hematology History: Reports: Hx Anticoagulant Therapy - Aspirin., Hx Blood Transfusions, Hx Diabetes, Hx Thyroid Disease, Hx Anemia - hx of - reports had tranfusion in 2013 after mi Cardiovascular History: Reports: Hx Angina, Hx Cardiac Arrest - in 2013 with CPR, Hx Cardiomegaly, Hx Coronary Artery Disease, Hx Deep Vein Thrombosis, Hx Hypercholesterolemia, Hx Hypertension, Hx Myocardial Infarction, Other Cardiovascular Problems/Disorders Denies: Hx Congestive Heart Failure, Hx Pacemaker/ICD, Hx Valvular Heart Disease Respiratory History: Reports: Hx Asthma, Hx Chronic Obstructive Pulmonary Disease (COPD) - smoker, Hx Pneumonia, Hx Sleep Apnea, Other Respiratory Problems/Disorders - acute respipatory failure with hypoxia - jan 2016 Denies: Hx Lung Cancer, Hx Pulmonary Embolism - pt says no, although documented in char GI History: Reports: Hx Gall Bladder Disease, Hx Gastroesophageal Reflux Disease , Other GI Disorders - GASTROPARESIS - TAKING OMEPRAZOLE, reglan and zofran Denies: Hx Gastrointestinal Bleed, Hx Ulcer, Hx Urosepsis History: Reports: Hx Acute Renal Failure, Hx Chronic Renal Failure - ESRD on PD, Hx Dialysis - PERITONEAL, Hx Kidney Stones, Hx Renal Disease - ESRD on home peritoneal dialysis , Other Problems/Disorders Musculoskeletal History: Reports: Hx Arthritis - back, hips, Hx Back Problems - Sciatica and Herniated L3 disk, Other Musculoskeletal History - partial amputation of toes/foot Sensory History: Reports: Hx Eye Prosthesis - left, 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 no vision in left, Hx Vision Problem Denies: Hx Contacts or Glasses Neurological History: Reports: Other Neuro Impairments/Disorders - neuropathy Denies: Hx Transient Ischemic Attacks (TIA) Psychiatric History: Reports: Hx Anxiety, Hx Depression, Hx Bipolar Disorder Denies: Hx Eating Disorder, Hx Panic Disorder, Hx Schizophrenia, Hx of Violent Episodes Against Others - Cancer History Cancer Type, 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 MELANOMA REMOVED FROM [facility] 2012 (PROCEDURE DONE 4X);. CARDIAC CATH 2013 - NO STENTS;. LEFT WRIST FISTULA PLACEMENT ([facility]) 2013;. HEMODIALYSIS CATH RIGHT CHEST WALL 2013;. PERITONEAL DIALYSIS CATH 03/2014;. [place]ST WALL C[place] [facility] [place] RIGHT GREAT TOE AMPUTATION, [facility] [place];. PLACEMENT RIGHT JUGULAR TESIO HEMODIALYSIS CATHETER [facility] [place];. REMOVAL OF JUGULAR CATH - OCT 2015. CARDIAC CATH - stentsx2 right leg. PARTIAL AMPUTATION RIGHT TOES 06/2016. RIGHT TOES ALL REMOVED Hx Anesthesia Reactions: No - Immunization History Date of Tetanus Vaccine: utd Date of Influenza Vaccine: 11/2016 Infectious Disease History: No Infectious Disease History: Reports: Hx of Known/Suspected MRSA - MRSA R 1st toe , History Other Infectious Disease - GANGRENE Denies: Hx Clostridium Difficile, Hx Hepatitis, Hx Human Immunodeficiency Virus (HIV), Hx Shingles, Hx Tuberculosis, Traveled Outside the [place] in Last 30 Days - Family History Known Family History: Positive: Cardiac Disease - father [place] at 42 y/o, Hypertension, Other - Positive for bipolar and depression. Completed suicide to sister. - Social History Occupation: Unemployed Lives: Alone Alcohol Use: None Hx Substance Use: No Substance Use Type: Reports: None Substance Use Comment - Amount & Last Used: METHADONE (noted in chart, not confirmed still prescribed in 11/2016) Hx Tobacco Use: Yes Smoking Status (MU): Heavy Every Day Tobacco Smoker Type: Cigarettes Amount Used/How Often: 1 PPD Length of Time of Smoking/Using Tobacco: 20 YEARS Have You Smoked in the Last Year: Yes Review of Systems Positive: Fever, Chills Positive: Abdominal Pain, Vomiting, Diarrhea, Nausea, Other - Positve: Abdominal bloating and tenderness Positive: dysuria Positive: Other - Positive: back pain All Other Systems Reviewed And Are Negative: Yes Physical Exam - Summary Physical Exam Summary: Appearance: The patient is well-nourished in no acute distress and in no acute pain. Skin: The skin is warm and dry and skin color reflects adequate perfusion. HEENT: The head is normocephalic and atraumatic. The pupils are equal and reactive. The conjunctivae are clear and without drainage. Nares are patent and without drainage. Mouth reveals moist mucous membranes and the throat is without erythema and exudate. The external ears are intact. The ear canals are patent and without drainage. The tympanic membranes are intact. Neck: The neck is supple with full range of motion and non-tender. There are no carotid bruits. There is no neck vein distension. Respiratory: Chest is non-tender. Lungs are clear to auscultation and breath sounds are symmetrical and equal. Cardiovascular: Heart is regular rate and rhythm. There is no murmur or rub auscultated. There is no peripheral edema and pulses are symmetrical and equal. Abdomen: The abdomen is soft and diffusely tender. There are normal bowel sounds heard in all four quadrants and there is no organomegaly palpated. Musculoskeletal: There is no back tenderness noted. Extremities are non-tender with full range of motion. There is good capillary refill. There is no peripheral edema or calf tenderness elicited. Neurological: Patient is alert and oriented to person, place and time. The patient has symmetrical motor strength in all four extremities. Cranial nerves are grossly intact. Deep tendon reflexes are symmetrical and equal in all four extremities. Psychiatric: The patient has an appropriate affect and does not exhibit any anxiety or depression. Triage Information Reviewed: Yes Vital Signs On Initial Exam: Initial Vitals Temp Pulse Resp BP Pulse Ox 98.3 F 101 17 166/83 95 10/28/17 14:00 10/28/17 14:00 10/28/17 14:00 10/28/17 14:00 10/28/17 14:00 Vital Signs Reviewed: Yes Diagnostics - Vital Signs Vital Signs Temp Pulse Resp BP Pulse Ox 10/28/17 14:00 98.3 F 101 17 166/83 95 - Laboratory Lab Results: Lab Results 10/28/17 10/28/17 10/28/17 Range/Units 14:18 14:18 14:18 WBC 10.5 (3.5-10.8) 10^3/ul RBC 5.18 (4.00-5.40) 10^6/ul Hgb 14.9 (12.0-16.0) g/dl Hct 45 (35-47) % MCV 86 (80-97) fL MCH 29 (27-31) pg MCHC 33 (31-36) g/dl RDW 16 H (10.5-15) % Plt Count 359 (150-450) 10^3/ul MPV 9.0 (7.4-10.4) um3 Neut % (Auto) 82.6 (38-83) % Lymph % (Auto) 10.8 L (25-47) % [place] % (Auto) 4.4 (0-7) % Eos % (Auto) 1.4 (0-6) % Baso % (Auto) 0.8 (0-2) % Absolute Neuts (auto) 8.7 H (1.5-7.7) 10^3/ul Absolute Lymphs (auto) 1.1 (1.0-4.8) 10^3/ul Absolute Monos (auto) 0.5 (0-0.8) 10^3/ul Absolute Eos (auto) 0.2 (0-0.6) 10^3/ul Absolute Basos (auto) 0.1 (0-0.2) 10^3/ul Absolute Nucleated RBC 0 10^3/ul Nucleated RBC % 0.2 Sodium 132 L (135-145) mmol/L Potassium 3.4 L (3.5-5.0) mmol/L Chloride 93 L (101-111) mmol/L Carbon Dioxide 28 (22-32) mmol/L Anion Gap 11 (2-11) mmol/L BUN 36 H (6-24) mg/dL Creatinine 5.90 H (0.51-0.95) mg/dL Est GFR ( Amer) 9.7 (>60) Est GFR (Non-Af Amer) 8.0 (>60) BUN/Creatinine Ratio 6.1 L (8-20) Glucose 454 H (70-100) mg/dL Lactic Acid 1.7 (0.5-2.0) mmol/L Calcium 8.4 L (8.6-10.3) mg/dL Total Bilirubin 0.20 (0.2-1.0) mg/dL AST 7 L (13-39) U/L ALT 5 L (7-52) U/L Alkaline Phosphatase 146 H (34-104) U/L C-Reactive Protein 24.29 H (<8.01) mg/L Total Protein 6.3 L (6.4-8.9) g/dL Albumin 3.1 L (3.2-5.2) g/dL Globulin 3.2 (2-4) g/dL Albumin/Globulin Ratio 1.0 (1-3) Lipase 41 (11.0-82.0) U/L Result Diagrams: 10/28/17 14:18 10/28/17 14:18 Lab Statement: Any lab studies that have been ordered have been reviewed, and results considered in the medical decision making process. Re-Evaluation - Re-Evaluation First Eval Re-Evaluation Time: 18:47 Change: Improved - The pt feels better but is not completely pain free. She is ready to go home. Abdominal Pain Fem Course/Dx - Course Course Of Treatment: Ms. Wright presented to the emergency department complaining of about a week of abdominal pain across her upper abdomen. She can 't really describe any exacerbating or relieving factors or associated symptoms. She use to have quite a bit of problem with similar symptoms and states many times that "they could never find anything wrong". She has not had a problem for about 6 months. Her workup was consistent with her past concerning her laboratory values. She improved some with a shot of Dilaudid and Zofran and IV fluids. The differential for her pain includes her history of gastroparesis, as well as possible gastritis/duodenitis, scarring from previous surgeries, common bile duct or pancreatic pathology as well as multiple other etiologies. Her lab work would indicate that she's not in any acute danger. I did offer a CT scan. She has had many CT scans in the past and would prefer not to which is a decision I agree with. She was discharged home to follow up with her PCP. - Diagnoses Provider Diagnoses: Epigastric abdominal pain Discharge - Sign-Out/Discharge Documenting (check all that apply): Patient Departure - DC - Discharge Plan Condition: Stable Disposition: HOME Patient Education Materials: Abdominal Pain (ED) Referrals: Aishwarya Solis MD [Primary Care Provider] - 3 Days Additional Instructions: Return to ED for any new or worsening symptoms Follow up with your PCP in 3 days - Billing Disposition and Condition Condition: STABLE Disposition: Home - Attestation Statements Document Initiated by Leslie: Yes Documenting Scribe: Rupal Brito Provider For Whom Leslie is Documenting (Include Credential): Dr. Km Harper MD Scribe Attestation: Rupal Palacio scribed for Dr. Km Harper MD on 10/28/17 at 2053. Scribe Documentation Reviewed: Yes Provider Attestation: The documentation as recorded by the Rupal sexton accurately reflects the service I personally performed and the decisions made by me, Dr. Km Harper MD
[2017-10-28] MEDS ORDERED: NS 0.9% 1000 ML* 1,000 ML IV ONE (15:44)
[2017-10-28] MEDS ORDERED: Ondansetron INJ* 2 MG/ML VIAL IV ONE (15:44)
[2017-10-28] MEDS ORDERED: HYDROmorphone INJ* 1 MG/ML CARPUJECT SYRINGE IV ONE ×2 (15:44→18:48)
[2017-10-28] MEDS ORDERED: HYDROmorphone INJ1* 1 MG/ML SYRINGE IV ONE ×2 (16:30→19:00)
[2017-10-28 18:03] VITALS: BP 164/92
== END 2017-10-28 19:24 | disposition home or self-care (01) ==
LOC: ED 13:27
DX: R10.13 Epigastric pain (principal); Z87.19 Personal history of other diseases of the digestive system; Z79.899 Other long term (current) drug therapy; F17.210 Nicotine dependence, cigarettes, uncomplicated; Z88.3 Allergy status to other anti-infective agents; Z88.8 Allergy status to other drugs, medicaments and biological substances
CPT/HCPCS: 36415; 80053; 83605; 83690; 85025; 86140; 96361; 96374; 96375; 96376; 99283; J1170; J2405

== ENCOUNTER 2017-11-29 13:31 | Emergency (ER) | payer OTHER ==
[2017-11-29 14:46] LABS: ABS Basophils 0.1 10^3/ul (0-0.2); ABS Eosinophils 0.2 10^3/ul (0-0.6); ABS Lymphocytes 1.2 10^3/ul (1.0-4.8); ABS Monocytes 0.4 10^3/ul (0-0.8); ABS Neutrophils 7.4 10^3/ul (1.5-7.7); ABS Nucleated RBC 0 10^3/ul; Eosinophil % 2.1 % (0-6); Hematocrit 44 % (35-47); Hemoglobin 14.5 g/dl (12.0-16.0); Lymphocyte % 12.5 % (25-47); Mean Corpuscular HGB Conc 33 g/dl (31-36); Mean Corpuscular Hemoglobin 29 pg (27-31); Mean Corpuscular Volume 87 fL (80-97); Mean Platelet Volume 8.3 um3 (7.4-10.4); Nucleated Red Blood Cells % 0.1; Platelet Count 299 10^3/ul (150-450); Red Blood Count 4.99 10^6/ul (4.00-5.40); Red Cell Distribution Width 15 % (10.5-15); White Blood Count 9.3 10^3/ul (3.5-10.8)
[2017-11-29 14:57] LABS: INR 1.48 (0.77-1.02)
[2017-11-29 15:02] LABS: EGFR Non-African American 14.4 (>60)
[2017-11-29] MEDS ORDERED: NS 0.9% 1000 ML* 1,000 ML IV ONE (18:33)
[2017-11-29] MEDS ORDERED: Insulin REGULAR(*) 1 UNITS UNIT IV PUSH ONE (19:06)
--- NOTE | 2017-11-29 19:09 | ED ---
Back Pain - HPI Summary HPI Summary: Patient is a 37-year-old female presenting to the emergency department for right -sided low back pain and right leg pain Times several days. Patient denies any injuries, falls or heavy lifting. Patient states she has a history of clots in her legs and states the pain in her right leg feels similar. She admits to mild bilateral leg edema. She denies chest pain, shortness of breath, abdominal pain, vomiting, urinary symptoms. She does not mild diarrhea. Patient is a history of insulin-dependent diabetes, renal failure and is on peritoneal dialysis. Pt. states pain feels similar to previous DVTs. Pt. currently on coumadin and states her levels have been off reently. Movement makes symptoms worse. Nothing makes symptoms better. Pt. states she did not take any of her mediations today. Symptoms are moderate in severity. - History of Current Complaint Chief Complaint: EDBackInjuryPain Stated Complaint: RT SIDE LOWER BACK PAIN Time Seen by Provider: 11/29/17 18:24 Hx Obtained From: Patient Hx Last Menstrual Period: 09/01/17 Pain Intensity: 9 - Allergies/Home Medications Allergies/Adverse Reactions: Allergies Allergy/AdvReac Type Severity Reaction Status Date / Time amoxicillin [From Augmentin] Allergy See Comment Verified 11/29/17 13:38 clavulanic acid Allergy See Comment Verified 11/29/17 13:38 [From Augmentin] erythromycin base Allergy See Comment Verified 11/29/17 13:38 heparin Allergy See Comment Verified 11/29/17 13:38 metronidazole [From Flagyl] Allergy Nausea And Verified 11/29/17 13:38 Vomiting niacin Allergy Rash Verified 11/29/17 13:38 ropinirole [From Requip] Allergy Hives Verified 11/29/17 13:38 Sulfa (Sulfonamide Allergy Vomiting Verified 11/29/17 13:38 Antibiotics) plastic tape Allergy Mild Blisters Uncoded 11/29/17 13:38 PMH/Surg Hx/FS Hx/Imm Hx Previously Healthy: No Endocrine/Hematology History: Reports: Hx Anticoagulant Therapy - Aspirin., Hx Blood Transfusions, Hx Diabetes, Hx Thyroid Disease, Hx Anemia - hx of - reports had tranfusion in 2013 after mi Cardiovascular History: Reports: Hx Angina, Hx Cardiac Arrest - in 2013 with CPR, Hx Cardiomegaly, Hx Coronary Artery Disease, Hx Deep Vein Thrombosis, Hx Hypercholesterolemia, Hx Hypertension, Hx Myocardial Infarction, Other Cardiovascular Problems/Disorders Denies: Hx Congestive Heart Failure, Hx Pacemaker/ICD, Hx Valvular Heart Disease Respiratory History: Reports: Hx Asthma, Hx Chronic Obstructive Pulmonary Disease (COPD) - smoker, Hx Pneumonia, Hx Sleep Apnea, Other Respiratory Problems/Disorders - acute respipatory failure with hypoxia - jan 2016 Denies: Hx Lung Cancer, Hx Pulmonary Embolism - pt says no, although documented in char GI History: Reports: Hx Gall Bladder Disease, Hx Gastroesophageal Reflux Disease , Other GI Disorders - GASTROPARESIS - TAKING OMEPRAZOLE, reglan and zofran Denies: Hx Gastrointestinal Bleed, Hx Ulcer, Hx Urosepsis History: Reports: Hx Acute Renal Failure, Hx Chronic Renal Failure - ESRD on PD, Hx Dialysis - PERITONEAL, Hx Kidney Stones, Hx Renal Disease - ESRD on home peritoneal dialysis , Other Problems/Disorders Musculoskeletal History: Reports: Hx Arthritis - back, hips, Hx Back Problems - Sciatica and Herniated L3 disk, Other Musculoskeletal History - partial amputation of toes/foot Sensory History: Reports: Hx Eye Prosthesis - left, 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 no vision in left, Hx Vision Problem Denies: Hx Contacts or Glasses Neurological History: Reports: Other Neuro Impairments/Disorders - neuropathy Denies: Hx Transient Ischemic Attacks (TIA) Psychiatric History: Reports: Hx Anxiety, Hx Depression, Hx Bipolar Disorder Denies: Hx Eating Disorder, Hx Panic Disorder, Hx Schizophrenia, Hx of Violent Episodes Against Others - Cancer History Cancer Type, 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 MELANOMA REMOVED FROM [facility] 2012 (PROCEDURE DONE 4X);. CARDIAC CATH 2013 - NO STENTS;. LEFT WRIST FISTULA PLACEMENT ([facility]) 2013;. HEMODIALYSIS CATH RIGHT CHEST WALL 2013;. PERITONEAL DIALYSIS CATH 03/2014;. CHEST WALL CATH REMOVAL 08/2015 [facility] [place];. RIGHT GREAT TOE AMPUTATION, [facility] [place] 05/2015;. PLACEMENT RIGHT JUGULAR TESIO HEMODIALYSIS CATHETER [facility] [place] 10/22/2015;. REMOVAL OF JUGULAR CATH - OCT 2015. CARDIAC CATH - stentsx2 right leg. PARTIAL AMPUTATION RIGHT TOES 06/2016. RIGHT TOES ALL REMOVED Hx Anesthesia Reactions: No - Immunization History Date of Tetanus Vaccine: utd Date of Influenza Vaccine: 11/2016 Infectious Disease History: No Infectious Disease History: Reports: Hx of Known/Suspected MRSA - MRSA R 1st toe , History Other Infectious Disease - GANGRENE Denies: Hx Clostridium Difficile, Hx Hepatitis, Hx Human Immunodeficiency Virus (HIV), Hx Shingles, Hx Tuberculosis, Traveled Outside the [place] in Last 30 Days - Family History Known Family History: Positive: Cardiac Disease - father [place] at 42 y/o, Hypertension, Other - Positive for bipolar and depression. Completed suicide to sister. - Social History Occupation: Unemployed Lives: With Family Alcohol Use: None Hx Substance Use: No Substance Use Type: Reports: None Substance Use Comment - Amount & Last Used: METHADONE (noted in chart, not confirmed still prescribed in 11/2016) Hx Tobacco Use: Yes Smoking Status (MU): Heavy Every Day Tobacco Smoker Type: Cigarettes Amount Used/How Often: 1 PPD Length of Time of Smoking/Using Tobacco: 20 YEARS Have You Smoked in the Last Year: Yes Review of Systems Constitutional: Negative Negative: Fever, Chills Cardiovascular: Negative Respiratory: Negative Positive: Diarrhea. Negative: Abdominal Pain, Vomiting, Nausea Genitourinary: Negative, Other - Does not make urine Positive: Other - Right low back pain and right leg pain. Negative: Weakness, Paresthesia, Numbness All Other Systems Reviewed And Are Negative: Yes Physical Exam Triage Information Reviewed: Yes Vital Signs On Initial Exam: Initial Vitals Temp Pulse Resp BP Pulse Ox 98.5 F 109 15 159/100 95 11/29/17 13:34 11/29/17 13:34 11/29/17 13:34 11/29/17 13:34 11/29/17 13:34 Vital Signs Reviewed: Yes Appearance: Positive: Well-Appearing - Pt. lying in bed in NAD. Morbidly obese. Family present. Skin: Positive: Warm, Dry Head/Face: Positive: Normal Head/Face Inspection Eyes: Positive: Normal, EOMI Neck: Positive: Supple Respiratory/Lung Sounds: Positive: Clear to Auscultation, Breath Sounds Present Cardiovascular: Positive: Normal, RRR Abdomen Description: Positive: Nontender, Soft Musculoskeletal: Positive: Normal, Strength/ROM Intact, Other - Partial amputation of right foot. Good palpable pedal pulses bilaterally. Pain to right upper inner thigh. Neurological: Positive: Normal, CN Intact II-III Psychiatric: Positive: Affect/Mood Appropriate Diagnostics - Vital Signs Vital Signs Temp Pulse Resp BP Pulse Ox 11/29/17 17:11 97.9 F 101 17 163/94 94 11/29/17 13:34 98.5 F 109 15 159/100 95 - Laboratory Lab Results: Lab Results 11/29/17 11/29/17 11/29/17 Range/Units 14:33 14:33 14:33 WBC 9.3 (3.5-10.8) 10^3/ul RBC 4.99 (4.00-5.40) 10^6/ul Hgb 14.5 (12.0-16.0) g/dl Hct 44 (35-47) % MCV 87 (80-97) fL MCH 29 (27-31) pg MCHC 33 (31-36) g/dl RDW 15 (10.5-15) % Plt Count 299 (150-450) 10^3/ul MPV 8.3 (7.4-10.4) um3 Neut % (Auto) 80.1 (38-83) % Lymph % (Auto) 12.5 L (25-47) % [place] % (Auto) 4.4 (0-7) % Eos % (Auto) 2.1 (0-6) % Baso % (Auto) 0.9 (0-2) % Absolute Neuts (auto) 7.4 (1.5-7.7) 10^3/ul Absolute Lymphs (auto) 1.2 (1.0-4.8) 10^3/ul Absolute Monos (auto) 0.4 (0-0.8) 10^3/ul Absolute Eos (auto) 0.2 (0-0.6) 10^3/ul Absolute Basos (auto) 0.1 (0-0.2) 10^3/ul Absolute Nucleated RBC 0 10^3/ul Nucleated RBC % 0.1 INR (Anticoag Therapy) 1.48 H (0.77-1.02) APTT 36.7 H (26.0-36.3) seconds Sodium 131 L (135-145) mmol/L Potassium 3.6 (3.5-5.0) mmol/L Chloride 95 L (101-111) mmol/L Carbon Dioxide 29 (22-32) mmol/L Anion Gap 7 (2-11) mmol/L BUN 23 (6-24) mg/dL Creatinine 3.55 H (0.51-0.95) mg/dL Est GFR ( Amer) 17.4 (>60) Est GFR (Non-Af Amer) 14.4 (>60) BUN/Creatinine Ratio 6.5 L (8-20) Glucose 571 H* (70-100) mg/dL Calcium 8.4 L (8.6-10.3) mg/dL Total Bilirubin 0.20 (0.2-1.0) mg/dL AST 5 L (13-39) U/L ALT 5 L (7-52) U/L Alkaline Phosphatase 126 H (34-104) U/L Total Protein 5.9 L (6.4-8.9) g/dL Albumin 2.8 L (3.2-5.2) g/dL Globulin 3.1 (2-4) g/dL Albumin/Globulin Ratio 0.9 L (1-3) Result Diagrams: 11/29/17 14:33 11/29/17 14:33 Lab Statement: Any lab studies that have been ordered have been reviewed, and results considered in the medical decision making process. Back Pain Course/Dx - Course Course Of Treatment: Pt. presenting for low back pain and leg pain. HTN. Afebrile. Pt. waited in waiting room for 4-5 hours before being able to be brought back into ER for evaluation. Pt. states she did not take any of her meds today. She had blood work done in the [facility] and glucose noted to be 517, normal anion gap, INR 1.48, chronic renal failure. U/S of right leg ordered. Pt. requesting pain medication but she is currently on methadone which she did not take today, offered a dose of methadone which she refused. IV fluids and insulin ordered. Pt. refused iv fluids and insulin. Pt. is now requesting to be dc home bc her pain is not controlled. U/S is negative for acute findings, per radiology. Will sign pt. out AMA since workup and treatment is not complete. Pt. has decision making compacity. She is aware of risk of leaving such as . Left with her family. - Diagnoses Provider Diagnoses: Back pain, Hyperglycemia Discharge - Sign-Out/Discharge Documenting (check all that apply): Patient Departure - Discharge Plan Condition: Stable Disposition: AGAINST MEDICAL ADVICE Referrals: Aishwarya Solis MD [Primary Care Provider] - - Billing Disposition and Condition Condition: STABLE Disposition: Against Medical Advice
--- NOTE | 2017-11-29 19:29 | RAD ---
EXAM: US Duplex Right Lower Extremity Veins CLINICAL HISTORY: 37 years old, female; Pain; Leg, upper; Right; Prior surgery; Surgery date: 6+ months; Surgery type: Patient states a stent was placed , but it looks like a graft from biomedical service engineer totpt. ; Patient HX: Right leg pain in area of stent medial thigh TECHNIQUE: Real-time duplex ultrasound scan of the right lower extremity veins integrating B-mode two-dimensional vascular structure, Doppler spectral analysis, color flow Doppler imaging and compression. COMPARISON: No relevant prior studies available. FINDINGS: Deep veins: Unremarkable. No DVT in the visualized common femoral, femoral, proximal deep femoral or popliteal veins. The veins demonstrate normal color flow, are normally compressible, with normal phasic flow and/or augmentation response. Superficial veins: Unremarkable. No thrombus in the visualized great saphenous vein. Soft tissues: No acute findings. No popliteal cyst. IMPRESSION: Normal right lower extremity duplex venous ultrasound. No DVT seen in the right leg. To contact [facility] with a general question: [facility] - [phone] For direct physician to physician contact: Physician Hotline - [phone] [facility] ([facility] Facility ID #[id number])
[2017-11-29 19:35] VITALS: BP 179/104
== END 2017-11-29 19:47 | disposition left against medical advice (07) ==
LOC: ED 13:31
DX: M54.5 Low back pain (principal); Z88.0 Allergy status to penicillin; Z79.01 Long term (current) use of anticoagulants; Z79.82 Long term (current) use of aspirin; F17.210 Nicotine dependence, cigarettes, uncomplicated; R19.7 Diarrhea, unspecified; R73.9 Hyperglycemia, unspecified
CPT/HCPCS: 36415; 80053; 85025; 85610; 85730; 99283

== ENCOUNTER 2017-12-19 14:33 | Emergency (ER) | payer OTHER ==
[2017-12-19 15:22] VITALS: BP 180/113
[2017-12-19 15:35] LABS: ABS Basophils 0.2 10^3/ul (0-0.2); ABS Eosinophils 0.2 10^3/ul (0-0.6); ABS Lymphocytes 1.1 10^3/ul (1.0-4.8); ABS Monocytes 0.5 10^3/ul (0-0.8); ABS Neutrophils 13.6 10^3/ul (1.5-7.7); ABS Nucleated RBC 0 10^3/ul; Eosinophil % 1.1 % (0-6); Hematocrit 42 % (35-47); Hemoglobin 13.8 g/dl (12.0-16.0); Lymphocyte % 7.1 % (25-47); Mean Corpuscular HGB Conc 33 g/dl (31-36); Mean Corpuscular Hemoglobin 29 pg (27-31); Mean Corpuscular Volume 87 fL (80-97); Mean Platelet Volume 7.8 um3 (7.4-10.4); Nucleated Red Blood Cells % 0; Platelet Count 322 10^3/ul (150-450); Red Cell Distribution Width 16 % (10.5-15); White Blood Count 15.5 10^3/ul (3.5-10.8)
--- NOTE | 2017-12-19 15:35 | ED ---
Abdominal Pain/Female - HPI Summary HPI Summary: A 37 y/o female presents to the ED c/o intermittent episodes of abd pain ongoing for a year. She also c/o nausea, vomiting, night sweats and chills that she has been feeling for a year now. She says that her abd pain radiates to her back. She states that she cannot keep water down. She has IDDM and since 2013 shes been on peritoneal dialysis. Her last dialysis was at 1200 today. She denies HLD or HTN.She sees Dr. Marrufo, neprhology. - History of Current Complaint Chief Complaint: EDAbdPain Stated Complaint: STOMACH PAIN,FEVER, VOMITING Time Seen by Provider: 12/19/17 15:05 Hx Obtained From: Patient Hx Last Menstrual Period: 09/01/17 Onset/Duration: Gradual Onset, Lasting Weeks, Still Present Timing: Constant Severity Initially: Moderate Severity Currently: Moderate Pain Intensity: 8 Location: Diffuse Radiates: Yes Radiates to: Back Associated Signs and Symptoms: Positive: Nausea, Vomiting, Other: - Positive: chills Allergies/Adverse Reactions: Allergies Allergy/AdvReac Type Severity Reaction Status Date / Time amoxicillin [From Augmentin] Allergy See Comment Verified 12/19/17 14:50 clavulanic acid Allergy See Comment Verified 12/19/17 14:50 [From Augmentin] erythromycin base Allergy See Comment Verified 12/19/17 14:50 heparin Allergy See Comment Verified 12/19/17 14:50 metronidazole [From Flagyl] Allergy Nausea And Verified 12/19/17 14:50 Vomiting niacin Allergy Rash Verified 12/19/17 14:50 ropinirole [From Requip] Allergy Hives Verified 12/19/17 14:50 Sulfa (Sulfonamide Allergy Vomiting Verified 12/19/17 14:50 Antibiotics) plastic tape Allergy Mild Blisters Uncoded 11/29/17 13:38 PMH/Surg Hx/FS Hx/Imm Hx Previously Healthy: No Endocrine/Hematology History: Reports: Hx Anticoagulant Therapy - Aspirin., Hx Blood Transfusions, Hx Diabetes, Hx Thyroid Disease, Hx Anemia - hx of - reports had tranfusion in 2013 after mi Cardiovascular History: Reports: Hx Angina, Hx Cardiac Arrest - in 2013 with CPR, Hx Cardiomegaly, Hx Coronary Artery Disease, Hx Deep Vein Thrombosis, Hx Hypercholesterolemia, Hx Hypertension, Hx Myocardial Infarction, Other Cardiovascular Problems/Disorders Denies: Hx Congestive Heart Failure, Hx Pacemaker/ICD, Hx Valvular Heart Disease Respiratory History: Reports: Hx Asthma, Hx Chronic Obstructive Pulmonary Disease (COPD) - smoker, Hx Pneumonia, Hx Sleep Apnea, Other Respiratory Problems/Disorders - acute respipatory failure with hypoxia - jan 2016 Denies: Hx Lung Cancer, Hx Pulmonary Embolism - pt says no, although documented in [facility] GI History: Reports: Hx Gall Bladder Disease, Hx Gastroesophageal Reflux Disease , Other GI Disorders - GASTROPARESIS - TAKING OMEPRAZOLE, reglan and zofran Denies: Hx Gastrointestinal Bleed, Hx Ulcer, Hx Urosepsis History: Reports: Hx Acute Renal Failure, Hx Chronic Renal Failure - ESRD on PD, Hx Dialysis - PERITONEAL, Hx Kidney Stones, Hx Renal Disease - ESRD on home peritoneal dialysis , Other Problems/Disorders Musculoskeletal History: Reports: Hx Arthritis - back, hips, Hx Back Problems - Sciatica and Herniated L3 disk, Other Musculoskeletal History - partial amputation of toes/foot Sensory History: Reports: Hx Eye Prosthesis - left, 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 no vision in left, Hx Vision Problem Denies: Hx Contacts or Glasses Neurological History: Reports: Other Neuro Impairments/Disorders - neuropathy Denies: Hx Transient Ischemic Attacks (TIA) Psychiatric History: Reports: Hx Anxiety, Hx Depression, Hx Bipolar Disorder Denies: Hx Eating Disorder, Hx Panic Disorder, Hx Schizophrenia, Hx of Violent Episodes Against Others - Cancer History Cancer Type, 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 MELANOMA REMOVED FROM [facility] 2012 (PROCEDURE DONE 4X);. CARDIAC CATH 2013 - NO STENTS;. LEFT WRIST FISTULA PLACEMENT ([facility]) 2013;. HEMODIALYSIS CATH RIGHT CHEST WALL 2013;. PERITONEAL DIALYSIS CATH 03/2014;. CHEST WALL CATH REMOVAL 08/2015 [facility] [place];. RIGHT GREAT TOE AMPUTATION, [facility] [place] 05/2015;. PLACEMENT RIGHT JUGULAR TESIO HEMODIALYSIS CATHETER [facility] [place] 10/22/2015;. REMOVAL OF JUGULAR CATH - OCT 2015. CARDIAC CATH - stentsx2 right leg. PARTIAL AMPUTATION RIGHT TOES 06/2016. RIGHT TOES ALL REMOVED Hx Anesthesia Reactions: No - Immunization History Date of Tetanus Vaccine: utd Date of Influenza Vaccine: 11/2016 Infectious Disease History: No Infectious Disease History: Reports: Hx of Known/Suspected MRSA - MRSA R 1st toe , History Other Infectious Disease - GANGRENE Denies: Hx Clostridium Difficile, Hx Hepatitis, Hx Human Immunodeficiency Virus (HIV), Hx Shingles, Hx Tuberculosis, Traveled Outside the [place] in Last 30 Days - Family History Known Family History: Positive: Cardiac Disease - father [place] at 42 y/o, Hypertension, Other - Positive for bipolar and depression. Completed suicide to sister. - Social History Alcohol Use: None Hx Substance Use: No Substance Use Type: Reports: None Substance Use Comment - Amount & Last Used: methadone Hx Tobacco Use: Yes Smoking Status (MU): Heavy Every Day Tobacco Smoker Type: Cigarettes Amount Used/How Often: 1 PPD Length of Time of Smoking/Using Tobacco: 20 YEARS Have You Smoked in the Last Year: Yes Review of Systems Positive: Fever, Chills, Skin Diaphoresis Positive: Abdominal Pain, Vomiting, Nausea All Other Systems Reviewed And Are Negative: Yes Physical Exam - Summary Physical Exam Summary: GENERAL: Patient is a well-developed and nourished Female who is lying comfortable in the stretcher. Patient is not in any acute respiratory distress. HEAD AND FACE: Normocephalic EYES: PERRLA, EOMI x 2. EARS: Hearing grossly intact. MOUTH: Oropharynx within normal limits. NECK: Supple, trachea is midline, no adenopathy, no JVD, no carotid bruit. CHEST: Symmetric, no tenderness at palpation LUNGS: Clear to auscultation bilaterally. No wheezing or crackles. CVS: Regular rate and rhythm, S1 and S2 present, no murmurs or gallops appreciated. ABDOMEN: Peritoneal Dialysis catheter in RLQ, Diffuse TTP and no rebound or guarding EXTREMITIES: Full ROM in all major joints, Left mid-foot amputation NEURO: Alert and oriented x 3. No acute neurological deficits. Speech is normal and follows commands. SKIN: Dry and warm Triage Information Reviewed: Yes Vital Signs On Initial Exam: Initial Vitals Temp Pulse Resp BP Pulse Ox 99.6 F 106 16 181/104 94 12/19/17 14:47 12/19/17 14:47 12/19/17 14:47 12/19/17 14:47 12/19/17 14:47 Vital Signs Reviewed: Yes Diagnostics - Vital Signs Vital Signs Temp Pulse Resp BP Pulse Ox 12/19/17 15:04 105 180/113 93 12/19/17 15:02 109 85 12/19/17 14:47 99.6 F 106 16 181/104 94 - Laboratory Result Diagrams: 12/19/17 15:24 12/19/17 15:24 Lab Statement: Any lab studies that have been ordered have been reviewed, and results considered in the medical decision making process. - EKG 1527 Cardiac Rate: NL - 97 bpm EKG Rhythm: Sinus Rhythm Summary of EKG Findings: LVH, ST elevation most likely secondary to early repolarization. Borderline prolonged QT. Similar to EKG on June 24, 2017 Abdominal Pain Fem Course/Dx - Course Course Of Treatment: A 37 y/o female presents to the ED c/o intermittent episodes of abd pain ongoing for a year. Patient eloped in middle of assessment. - Diagnoses Provider Diagnoses: Abdominal pain Discharge - Sign-Out/Discharge Documenting (check all that apply): Patient Departure - eloped - Discharge Plan Condition: Stable Disposition: ELOPEMENT Referrals: Aishwarya Solis MD [Primary Care Provider] - - Billing Disposition and Condition Condition: STABLE Disposition: Elopement - Attestation Statements Document Initiated by Scribe: Yes Documenting Scribe: Jori Alonzo Provider For Whom Scribe is Documenting (Include Credential): Rosalva Gaines MD Scribe Attestation: I, Jroi Alonzo, scribed for Rosalva Gaines MD on 12/20/17 at 1619. Scribe Documentation Reviewed: Yes Provider Attestation: The documentation as recorded by the Jori sexton accurately reflects the service I personally performed and the decisions made by me, Sandy Gaines MD
[2017-12-19] MEDS ORDERED: Metoclopramide IV* 5 MG/ML 2 ML VIAL IV ONE (15:41)
[2017-12-19] MEDS ORDERED: NS 0.9% 1000 ML* 1,000 ML IV ONE (15:41)
[2017-12-19] MEDS ORDERED: cefTRIAXone(*) 2 GM in NS 0.9% 100 ML* 100 ML IVPB ONE (15:41)
[2017-12-19 15:50] LABS: Urine Appearance Cloudy; Urine Blood 1+ (Negative); Urine Color Yellow; Urine Ketones Negative (Negative); Urine Protein 3+(>=500 mg/dL) (Negative); Urine Red Blood Cell 2+(6-10/hpf) (Absent); Urine Specific Gravity 1.022 (1.010-1.030); Urine Urobilinogen Negative (Negative); Urine White Blood Cell Trace(0-5/hpf) (Absent)
[2017-12-19 15:58] LABS: EGFR Non-African American 15.4 (>60)
[2017-12-19 16:00] LABS: INR 1.21 (0.77-1.02)
== END 2017-12-19 16:44 | disposition home or self-care (01) ==
LOC: ED 14:33
DX: R10.9 Unspecified abdominal pain (principal); F17.210 Nicotine dependence, cigarettes, uncomplicated; Z79.82 Long term (current) use of aspirin; I20.9 Angina pectoris, unspecified; Z86.74 Personal history of sudden cardiac arrest; I25.10 Atherosclerotic heart disease of native coronary artery without angina pectoris; Z86.718 Personal history of other venous thrombosis and embolism; E78.00 Pure hypercholesterolemia, unspecified; I10 Essential (primary) hypertension; I25.2 Old myocardial infarction; J44.9 Chronic obstructive pulmonary disease, unspecified; Z85.89 Personal history of malignant neoplasm of other organs and systems; K31.84 Gastroparesis; Z53.21 Procedure and treatment not carried out due to patient leaving prior to being seen by health care provider
CPT/HCPCS: 36415; 80053; 81003; 81015; 83605; 83690; 83735; 84484; 84702; 85025; 85610; 85730; 86140; 87086; 93005; 96374; 96375; 99282; J0696; J2765

== ENCOUNTER 2017-12-28 09:02 | Emergency (ER) | payer OTHER ==
[2017-12-28] MEDS ORDERED: Haloperidol INJ IV/IM* 5 MG/ML AMP IV SLOW PU ONE (09:25)
[2017-12-28] MEDS ORDERED: DiMENhydriNATE IV* 50 MG/ML VIAL IV PUSH ONE (09:25)
[2017-12-28] MEDS ORDERED: Labetalol IV* 5 MG/ML 20 ML VIAL IV PUSH ONE (09:25)
--- NOTE | 2017-12-28 09:25 | ED ---
Abdominal Pain/Female - HPI Summary HPI Summary: This patient is a 37 year old F presenting to [facility] accompanied by family with a chief complaint of diffuse abd pain that began yesterday night. The patient rates the pain 8/10 in severity. Symptoms aggravated by nothing. Symptoms alleviated by nothing. Patient reports nausea, vomiting, and burning CP. Patient states she has been dealing with chronic diffuse abdominal pain for a year, and frequently goes to the hospital for symptomatic treatment. Patient states she has a history of chronic renal failure with dialysis treatment. Her diasolate fluid has been clear of late. - History of Current Complaint Chief Complaint: EDChestPainROMI Stated Complaint: CHEST PAIN, N,V ABD PAIN Time Seen by Provider: 12/28/17 09:15 Hx Obtained From: Patient Hx Last Menstrual Period: 09/01/17 ?: No Onset/Duration: Sudden Onset, Lasting Days, Still Present Timing: Constant Severity Initially: Severe Severity Currently: Severe Pain Intensity: 8 Pain Scale Used: 0-10 Numeric Location: Diffuse Radiates: No Aggravating Factor(s): Nothing Alleviating Factor(s): Nothing Associated Signs and Symptoms: Positive: Nausea, Vomiting, Other: - Positive CP Allergies/Adverse Reactions: Allergies Allergy/AdvReac Type Severity Reaction Status Date / Time amoxicillin [From Augmentin] Allergy See Comment Verified 12/28/17 09:05 clavulanic acid Allergy See Comment Verified 12/28/17 09:05 [From Augmentin] erythromycin base Allergy See Comment Verified 12/28/17 09:05 heparin Allergy See Comment Verified 12/28/17 09:05 metronidazole [From Flagyl] Allergy Nausea And Verified 12/28/17 09:05 Vomiting niacin Allergy Rash Verified 12/28/17 09:05 ropinirole [From Requip] Allergy Hives Verified 12/28/17 09:05 Sulfa (Sulfonamide Allergy Vomiting Verified 12/28/17 09:05 Antibiotics) plastic tape Allergy Mild Blisters Uncoded 12/28/17 09:05 PMH/Surg Hx/FS Hx/Imm Hx Previously Healthy: No Endocrine/Hematology History: Reports: Hx Anticoagulant Therapy - Aspirin., Hx Blood Transfusions, Hx Diabetes, Hx Thyroid Disease, Hx Anemia - hx of - reports had tranfusion in 2013 after mi Cardiovascular History: Reports: Hx Angina, Hx Cardiac Arrest - in 2013 with CPR, Hx Cardiomegaly, Hx Coronary Artery Disease, Hx Deep Vein Thrombosis, Hx Hypercholesterolemia, Hx Hypertension, Hx Myocardial Infarction, Other Cardiovascular Problems/Disorders Denies: Hx Congestive Heart Failure, Hx Pacemaker/ICD, Hx Valvular Heart Disease Respiratory History: Reports: Hx Asthma, Hx Chronic Obstructive Pulmonary Disease (COPD) - smoker, Hx Pneumonia, Hx Sleep Apnea, Other Respiratory Problems/Disorders - acute respipatory failure with hypoxia - jan 2016 Denies: Hx Lung Cancer, Hx Pulmonary Embolism - pt says no, although documented in [facility] GI History: Reports: Hx Gall Bladder Disease, Hx Gastroesophageal Reflux Disease , Other GI Disorders - GASTROPARESIS - TAKING OMEPRAZOLE, reglan and zofran Denies: Hx Gastrointestinal Bleed, Hx Ulcer, Hx Urosepsis History: Reports: Hx Acute Renal Failure, Hx Chronic Renal Failure - ESRD on PD, Hx Dialysis - PERITONEAL, Hx Kidney Stones, Hx Renal Disease - ESRD on home peritoneal dialysis , Other Problems/Disorders Musculoskeletal History: Reports: Hx Arthritis - back, hips, Hx Back Problems - Sciatica and Herniated L3 disk, Other Musculoskeletal History - partial amputation of toes/foot Sensory History: Reports: Hx Eye Prosthesis - left, 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 no vision in left, Hx Vision Problem Denies: Hx Contacts or Glasses Neurological History: Reports: Other Neuro Impairments/Disorders - neuropathy Denies: Hx Transient Ischemic Attacks (TIA) Psychiatric History: Reports: Hx Anxiety, Hx Depression, Hx Bipolar Disorder Denies: Hx Eating Disorder, Hx Panic Disorder, Hx Schizophrenia, Hx of Violent Episodes Against Others - Cancer History Cancer Type, 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 MELANOMA REMOVED FROM [facility] 2012 (PROCEDURE DONE 4X);. CARDIAC CATH 2013 - NO STENTS;. LEFT WRIST FISTULA PLACEMENT ([facility]) 2013;. HEMODIALYSIS CATH RIGHT CHEST WALL 2013;. PERITONEAL DIALYSIS CATH 03/2014;. CHEST WALL CATH REMOVAL 08/2015 [facility] [place];. RIGHT GREAT TOE AMPUTATION, [facility] [place] 05/2015;. PLACEMENT RIGHT JUGULAR TESIO HEMODIALYSIS CATHETER [facility] [place] 10/22/2015;. REMOVAL OF JUGULAR CATH - OCT 2015. CARDIAC CATH - stentsx2 right leg. PARTIAL AMPUTATION RIGHT TOES 06/2016. 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 Completed suicide to sister. - Social History Occupation: Unemployed Lives: Alone Alcohol Use: None Hx Substance Use: No Substance Use Type: Reports: None Substance Use Comment - Amount & Last Used: methadone Hx Tobacco Use: Yes Smoking Status (MU): Heavy Every Day Tobacco Smoker Type: Cigarettes Amount Used/How Often: 1 PPD Length of Time of Smoking/Using Tobacco: 20 YEARS Have You Smoked in the Last Year: Yes Review of Systems Positive: Chest Pain Positive: Abdominal Pain, Vomiting, Nausea All Other Systems Reviewed And Are Negative: Yes Physical Exam - Summary Physical Exam Summary: Appearance: Well appearing, minimal pain distress, appears older than stated age Skin: warm, dry, reflects adequate perfusion Head/face: normal Eyes: EOMI, [place]ILL[place] ENT: mucous membranes moist Neck: supple, non-tender Respiratory: breath sounds present, Mild wheeze both bases, no rales or rhonchi Cardiovascular: tachycardic but regular rhythm, pulses symmetrical Abdomen: Peritoneal dialysis catheter in RLQ, scar in LLQ, mild diffuse tenderness without focality, no rebound or guarding Bowel Sounds: decreased Musculoskeletal: normal, strength/ROM intact Neuro: normal, sensory motor intact, A&Ox3 Triage Information Reviewed: Yes Vital Signs On Initial Exam: Initial Vitals Temp Pulse Resp BP Pulse Ox 99.8 F 101 18 170/133 97 12/28/17 09:06 12/28/17 09:06 12/28/17 09:06 12/28/17 09:06 12/28/17 09:06 Vital Signs Reviewed: Yes Diagnostics - Vital Signs Vital Signs Temp Pulse Resp BP Pulse Ox 11/03/18 09:06 99.8 F 101 18 170/133 97 - Laboratory Result Diagrams: 12/28/17 10:15 12/28/17 10:15 Lab Statement: Any lab studies that have been ordered have been reviewed, and results considered in the medical decision making process. - Radiology Abdomen XR Radiology Interpretation Completed By: ED Physician Summary of Radiographic Findings: Abdomen XR reveals, per ED physician, no obstructive pattern Re-Evaluation - Re-Evaluation First Eval Re-Evaluation Time: 11:05 Change: Unchanged Comment: Patient requests to go home. I offered her treatment of pain. Patient reports not taking her methadone this morning, and I offered her that. Patient still requests to go home. Abdominal Pain Fem Course/Dx - Course Course Of Treatment: Patient is a well-known, frequent visitor to the emergency department with recurring abdominal pain and history of end-stage renal disease on peritoneal dialysis. She has diffuse tenderness but no focality. She is given medication for nausea, prokinesis. Patient was having ongoing discomfort however she wanted to leave. She had not taken her methadone which was offered to her as was IV pain medication. However, the patient wishes to department. She has no fever and is alert, oriented and normally conversant. X-rays do show positive bowel gas. There is no obstruction. Patient was offered continued evaluation/treatment however she wishes to leave AGAINST MEDICAL ADVICE. - Diagnoses Differential Diagnosis: Positive: Bowel Obstruction, Constipation, Gall Bladder Disease, Irritable Bowel Syndrome, Other - Subacute bacterial peritonitis Provider Diagnoses: Chronic abdominal pain, End stage renal disease on dialysis, Uncontrolled hypertension Discharge - Sign-Out/Discharge Documenting (check all that apply): Patient Departure - Left AMA - Discharge Plan Condition: Fair Disposition: AGAINST MEDICAL ADVICE Patient Education Materials: Chronic Abdominal Pain (ED) Referrals: Aishwarya Solis MD [Primary Care Provider] - Additional Instructions: Call your doctor first thing Saturday morning to be seen promptly. Return to the ER with any concerns but to include chest pain, shortness of breath, increased abdominal pain, persistent nausea or vomiting, uncontrolled pain, new symptoms or other concerns as discussed. Your blood pressure was uncontrolled today. Make sure you take your methadone today - Billing Disposition and Condition Condition: FAIR Disposition: Against Medical Advice - Attestation Statements Document Initiated by Scribe: Yes Documenting Scribe: Chichi Parson Provider For Whom Scribe is Documenting (Include Credential): Dr. Yamil Garcia MD Scribe Attestation: I, Chichi Parson, scribed for Dr. Yamil Garcia MD on 12/28/17 at 1451. Scribe Documentation Reviewed: Yes Provider Attestation: The documentation as recorded by the nitaibChichi campbell accurately reflects the service I personally performed and the decisions made by me, Dr. Yamil Garcia MD
[2017-12-28 10:34] LABS: ABS Basophils 0.2 10^3/ul (0-0.2); ABS Eosinophils 0.2 10^3/ul (0-0.6); ABS Lymphocytes 0.9 10^3/ul (1.0-4.8); ABS Monocytes 0.5 10^3/ul (0-0.8); ABS Neutrophils 16.6 10^3/ul (1.5-7.7); ABS Nucleated RBC 0 10^3/ul; Eosinophil % 1.1 % (0-6); Hematocrit 43 % (35-47); Hemoglobin 13.8 g/dl (12.0-16.0); Lymphocyte % 4.9 % (25-47); Mean Corpuscular HGB Conc 32 g/dl (31-36); Mean Corpuscular Hemoglobin 28 pg (27-31); Mean Corpuscular Volume 86 fL (80-97); Mean Platelet Volume 8.2 fL (7.4-10.4); Nucleated Red Blood Cells % 0.1; Platelet Count 302 10^3/ul (150-450); Red Blood Count 4.93 10^6/ul (4.00-5.40); Red Cell Distribution Width 15 % (10.5-15); White Blood Count 18.4 10^3/ul (3.5-10.8)
[2017-12-28 10:50] LABS: INR 1.62 (0.77-1.02)
--- NOTE | 2017-12-28 10:51 | RAD ---
INDICATION: Diffuse abdominal pain COMPARISON: None TECHNIQUE: Supine and upright views of the abdomen were obtained. FINDINGS: The right lower quadrant peritoneal dialysis catheter appears similar to the previous CT of the abdomen and pelvis. The small bowel and colon appear nondistended. No free intraperitoneal air is seen. No grossly abnormal or pathologic appearing calcifications are noted. Visualized bones are within normal limits for the patient's age. Incidentally noted are bilateral superficial femoral artery stents. IMPRESSION: No radiographically apparent acute abnormality of the abdomen.
[2017-12-28 10:53] LABS: EGFR Non-African American 14.7 (>60)
[2017-12-28 11:11] VITALS: BP 226/130
== END 2017-12-28 11:10 | disposition left against medical advice (07) ==
LOC: ED 09:02
DX: R10.9 Unspecified abdominal pain (principal); N18.6 End stage renal disease; R07.9 Chest pain, unspecified; Z99.2 Dependence on renal dialysis; I10 Essential (primary) hypertension; R11.2 Nausea with vomiting, unspecified; Z88.0 Allergy status to penicillin; Z79.01 Long term (current) use of anticoagulants; F17.210 Nicotine dependence, cigarettes, uncomplicated; N28.89 Other specified disorders of kidney and ureter
CPT/HCPCS: 36415; 74019; 80053; 82140; 83605; 83690; 85025; 85610; 86140; 96374; 96375; 99282; J1240; J1630

== ENCOUNTER 2018-02-19 09:32 | Observation (INO) | payer OTHER ==
[2018-02-19] MEDS ORDERED: Morphine VIAL* 4 MG/ML VIAL (1 ml vial) IV ONE (11:02)
[2018-02-19] MEDS ORDERED: Ondansetron INJ* 2 MG/ML VIAL IV ONE ×2 (11:02→12:59)
[2018-02-19] MEDS ORDERED: NS 0.9% 1000 ML* 1,000 ML IV ONE ×2 (11:02→11:12)
[2018-02-19] MEDS ORDERED: Insulin IVPB 100 units/100 ml 100 UNITS/100 ML UNIT IVPB ONE (11:12)
[2018-02-19] MEDS ORDERED: Insulin REGULAR(*) 1 UNITS UNIT IV ONE (11:12)
--- NOTE | 2018-02-19 11:19 | ED ---
Abdominal Pain/Female - HPI Summary HPI Summary: This patient is a 37 year old female presenting to [facility] with a chief complaint of abd pain since 2 weeks ago. Patient states these symptoms have been present for nearly a year, but have worsened these past 2 weeks. Patient states that she is scheduled for a colonoscopy next month and is waiting on urine culture results. Today at 0300, patient states she experienced right flank pain that was new to her. The pain is rated 10/10 in severity. Symptoms aggravated by nothing. Symptoms alleviated by nothing. Patient additionally reports nausea, vomiting, fever, chills. Patient denies cough. - History of Current Complaint Chief Complaint: EDAbdPain Stated Complaint: ABD PAIN/VOMITING Time Seen by Provider: 02/19/18 11:03 Hx Obtained From: Patient Hx Last Menstrual Period: 09/01/17 Onset/Duration: Lasting Weeks, Still Present Timing: Constant Severity Currently: Severe Pain Intensity: 10 Pain Scale Used: 0-10 Numeric Location: Diffuse, Flank - right Aggravating Factor(s): Nothing Alleviating Factor(s): Nothing Associated Signs and Symptoms: Positive: Negative - cough, Other: - nausea, vomiting, fever, chills Allergies/Adverse Reactions: Allergies Allergy/AdvReac Type Severity Reaction Status Date / Time amoxicillin [From Augmentin] Allergy See Comment Verified 02/19/18 10:02 clavulanic acid Allergy See Comment Verified 02/19/18 10:02 [From Augmentin] erythromycin base Allergy See Comment Verified 02/19/18 10:02 heparin Allergy See Comment Verified 02/19/18 10:02 metoclopramide [From Reglan] Allergy Hives Verified 02/19/18 10:03 metronidazole [From Flagyl] Allergy Nausea And Verified 02/19/18 10:02 Vomiting niacin Allergy Rash Verified 02/19/18 10:02 ropinirole [From Requip] Allergy Hives Verified 02/19/18 10:02 Sulfa (Sulfonamide Allergy Vomiting Verified 02/19/18 10:02 Antibiotics) plastic tape Allergy Mild Blisters Uncoded 02/19/18 10:02 PMH/Surg Hx/FS Hx/Imm Hx Previously Healthy: No Endocrine/Hematology History: Reports: Hx Anticoagulant Therapy - Aspirin., Hx Blood Transfusions, Hx Diabetes, Hx Thyroid Disease, Hx Anemia - hx of - reports had tranfusion in 2013 after mi Cardiovascular History: Reports: Hx Angina, Hx Cardiac Arrest - in 2013 with CPR, Hx Cardiomegaly, Hx Coronary Artery Disease, Hx Deep Vein Thrombosis, Hx Hypercholesterolemia, Hx Hypertension, Hx Myocardial Infarction, Other Cardiovascular Problems/Disorders Denies: Hx Congestive Heart Failure, Hx Pacemaker/ICD, Hx Valvular Heart Disease Respiratory History: Reports: Hx Asthma, Hx Chronic Obstructive Pulmonary Disease (COPD) - smoker, Hx Pneumonia, Hx Sleep Apnea, Other Respiratory Problems/Disorders - acute respipatory failure with hypoxia - jan 2016 Denies: Hx Lung Cancer, Hx Pulmonary Embolism - pt says no, although documented in char GI History: Reports: Hx Gall Bladder Disease, Hx Gastroesophageal Reflux Disease , Other GI Disorders - GASTROPARESIS - TAKING OMEPRAZOLE, reglan and zofran Denies: Hx Gastrointestinal Bleed, Hx Ulcer, Hx Urosepsis History: Reports: Hx Acute Renal Failure, Hx Chronic Renal Failure - ESRD on PD, Hx Dialysis - PERITONEAL, Hx Kidney Stones, Hx Renal Disease - ESRD on home peritoneal dialysis , Other Problems/Disorders Musculoskeletal History: Reports: Hx Arthritis - back, hips, Hx Back Problems - Sciatica and Herniated L3 disk, Other Musculoskeletal History - partial amputation of toes/foot Sensory History: Reports: Hx Eye Prosthesis - left, 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 no vision in left, Hx Vision Problem Denies: Hx Contacts or Glasses Neurological History: Reports: Other Neuro Impairments/Disorders - neuropathy Denies: Hx Transient Ischemic Attacks (TIA) Psychiatric History: Reports: Hx Anxiety, Hx Depression, Hx Bipolar Disorder Denies: Hx Eating Disorder, Hx Panic Disorder, Hx Schizophrenia, Hx of Violent Episodes Against Others - Cancer History Cancer Type, 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 MELANOMA REMOVED FROM [facility] 2012 (PROCEDURE DONE 4X);. CARDIAC CATH 2013 - NO STENTS;. LEFT WRIST FISTULA PLACEMENT ([facility]) 2013;. HEMODIALYSIS CATH RIGHT CHEST WALL 2013;. PERITONEAL DIALYSIS CATH 03/2014;. CHEST WALL CATH REMOVAL 08/2015 [facility] [place];. RIGHT GREAT TOE AMPUTATION, [facility] [place] 05/2015;. PLACEMENT RIGHT JUGULAR TESIO HEMODIALYSIS CATHETER [facility] [place] 10/22/2015;. REMOVAL OF JUGULAR CATH - OCT 2015. CARDIAC CATH - stentsx2 right leg. PARTIAL AMPUTATION RIGHT TOES 06/2016. RIGHT TOES ALL REMOVED Hx Anesthesia Reactions: No - Immunization History Date of Tetanus Vaccine: utd Date of Influenza Vaccine: 11/2016 Infectious Disease History: No Infectious Disease History: Reports: Hx of Known/Suspected MRSA - MRSA R 1st toe , History Other Infectious Disease - GANGRENE Denies: Hx Clostridium Difficile, Hx Hepatitis, Hx Human Immunodeficiency Virus (HIV), Hx Shingles, Hx Tuberculosis, Traveled Outside the [place] in Last 30 Days - Family History Known Family History: Positive: Cardiac Disease - father [place] at 42 y/o, Hypertension, Other - Positive for bipolar and depression. Completed suicide to sister. - Social History Lives: With Family Alcohol Use: None Hx Substance Use: No Substance Use Type: Reports: None Substance Use Comment - Amount & Last Used: methadone Hx Tobacco Use: Yes Smoking Status (MU): Heavy Every Day Tobacco Smoker Type: Cigarettes Amount Used/How Often: 1 PPD Length of Time of Smoking/Using Tobacco: 20 YEARS Have You Smoked in the Last Year: Yes Review of Systems Positive: Fever, Chills Negative: Cough Positive: Abdominal Pain, Vomiting, Nausea All Other Systems Reviewed And Are Negative: Yes Physical Exam - Summary Physical Exam Summary: Appearance: Well appearing, no pain distress Skin: warm, dry, reflects adequate perfusion Head/face: normal Eyes: EOMI, HILLARY ENT: mucous membranes moist Neck: supple, non-tender Respiratory: diffuse wheezing, no rales or rhonchi Cardiovascular: tachycardic, but regular, pulses symmetrical Abdomen: non-tender, soft Bowel Sounds: present Musculoskeletal: strength/ROM intact, Amputation of metatarsals on right Neuro: normal, sensory motor intact, A&Ox3. however, loss of sensation in feet Triage Information Reviewed: Yes Vital Signs On Initial Exam: Initial Vitals Temp Pulse Resp BP Pulse Ox 99.4 F 118 24 175/104 98 02/19/18 09:58 02/19/18 09:58 02/19/18 09:58 02/19/18 09:58 02/19/18 09:58 Vital Signs Reviewed: Yes Diagnostics - Vital Signs Vital Signs Temp Pulse Resp BP Pulse Ox 02/19/18 11:07 16 02/19/18 09:58 99.4 F 118 24 175/104 98 - Laboratory Result Diagrams: 02/19/18 11:30 02/19/18 11:30 Lab Statement: Any lab studies that have been ordered have been reviewed, and results considered in the medical decision making process. - CT CT Abd/Pel CT Interpretation Completed By: Radiologist Summary of CT Findings: CT Abd/Pel reveals, per radiologist, IMPRESSION: #. Interstitial edema and small dependent pleural effusions noted at the visualized inferior thorax. Mild cardiomegaly. #. Hepatomegaly. #. Small hiatal hernia. #. Normal appendix documented. #. Mild colonic diverticulosis without findings of acute diverticulitis. #. Tip of the peritoneal dialysis catheter is coiled at the RIGHT lower quadrant. Moderate diffuse peritoneal fluid. No loculated peritoneal fluid collection evident. ED physician has reviewed this radiology report. - EKG 1135 Cardiac Rate: Tachycardia EKG Rhythm: Sinus Tachycardia - 115 BPM Summary of EKG Findings: An EKG, taken 1135, reveals Sinus Tachycardia (115 BPM) , Normal axis, normal intervals, nonspecific ST. Abdominal Pain Fem Course/Dx - Course Course Of Treatment: Nurse's notes reviewed. Patient is comorbid and chronically ill-appearing. She has grossly elevated blood sugars out of range on bedside testing. Chronic worsening abdominal discomfort with history of peritoneal dialysis. Possibility of SBP. IV antibiotics given. Patient hydrated and given insulin. She is non-acidemic. Insulin drip not initiated. Discussed with hospitalist who will evaluate in the ER and admit. - Diagnoses Differential Diagnosis: Positive: Gall Bladder Disease, Irritable Bowel Syndrome , Pancreatitis, Pneumonia, Urinary Tract Infection Provider Diagnoses: End stage renal disease on dialysis, Spontaneous bacterial peritonitis, Hyperglycemia - Provider Notifications Discussed Care Of Patient With: Fuentes Hardy - Hospitalist Time Discussed With Above Provider: 12:45 - We discussed patient care with Dr. Hardy (Hospitalist) at 1245 and they agreed to admit the patient. - Critical Care Time Critical Care Time: 30-74 min Discharge - Sign-Out/Discharge Documenting (check all that apply): Patient Departure - Discharge Plan Condition: Guarded Disposition: ADMITTED TO [facility] - Billing Disposition and Condition Condition: GUARDED Disposition: Admitted to [facility] - Attestation Statements Document Initiated by Leslie: Yes Documenting Scribe: Noemi Kerr Provider For Whom Scribe is Documenting (Include Credential): Yamil Garcia MD Scribe Attestation: INoemi, scribed for Yamil Garcia MD on 02/19/18 at 2000. Scribe Documentation Reviewed: Yes Provider Attestation: The documentation as recorded by the Noemi sexton accurately reflects the service I personally performed and the decisions made by , Yamil Garcia MD Status of Scribe Document: Viewed
[2018-02-19 11:41] LABS: ABS Basophils 0.1 10^3/ul (0-0.2); ABS Eosinophils 0.2 10^3/ul (0-0.6); ABS Lymphocytes 0.9 10^3/ul (1.0-4.8); ABS Monocytes 0.6 10^3/ul (0-0.8); ABS Neutrophils 18.6 10^3/ul (1.5-7.7); ABS Nucleated RBC 0 10^3/ul; Hematocrit 30 % (35-47); Hemoglobin 9.9 g/dl (12.0-16.0); Lymphocyte % 4.6 %; Mean Corpuscular HGB Conc 33 g/dl (31-36); Mean Corpuscular Hemoglobin 29 pg (27-31); Mean Corpuscular Volume 88 fL (80-97); Mean Platelet Volume 8.5 fL (7.4-10.4); Nucleated Red Blood Cells % 0; Platelet Count 284 10^3/ul (150-450); Red Blood Count 3.46 10^6/ul (4.00-5.40); Red Cell Distribution Width 16 % (10.5-15); White Blood Count 20.4 10^3/ul (3.5-10.8)
[2018-02-19 11:52] LABS: INR 1.71 (0.77-1.02)
[2018-02-19 12:03] LABS: BUN/Creatinine Ratio 7.5 (8-20); C Reactive Protein 64.32 mg/L (<8.01); Calcium 8.4 mg/dL (8.6-10.3); EGFR Non-African American 12.5 (>60); Globulin 3.1 g/dL (2-4); Potassium 3.9 mmol/L (3.5-5.0); Total Bilirubin 0.4 mg/dL (0.2-1.0); Total Protein 6.1 g/dL (6.4-8.9)
[2018-02-19 12:08] LABS: HCG Pregnancy 7.3 mIU/mL
[2018-02-19] MEDS ORDERED: Levofloxacin 750 MG IVPREMIX(* 750 MG/150 ML BAG IVPB ONE (12:43)
[2018-02-19] MEDS ORDERED: metroNIDAZOLE IV 500 MG/100ML* 500 MG/100 ML BAG IVPB ONE (12:44)
[2018-02-19] MEDS ORDERED: HYDROmorphone INJ* 2 MG/ML CARPUJECT SYRINGE IV SLOW PU ONE (12:59)
[2018-02-19] MEDS ORDERED: HYDROmorphone INJ1* 1 MG/ML SYRINGE ONE (13:16)
[2018-02-19] MEDS ORDERED: Dextrose 50% Syringe 50 ML* 25 GM/50 ML SYRINGE IV PUSH PRN (14:56)
[2018-02-19] MEDS ORDERED: Acetaminophen TAB* 325 MG PO PRN (14:56)
[2018-02-19] MEDS ORDERED: Albuterol 2.5 MG/3 ML NEB.SOL* (0.083%) INH PRN (15:18)
[2018-02-19] MEDS ORDERED: Albuterol HFA INHALER* 8 gm MDI INH PRN (15:18)
[2018-02-19] MEDS ORDERED: hydrALAZINE IV* 20 MG/ML VIAL IV SLOW PU PRN (15:21)
[2018-02-19] MEDS ORDERED: hydrALAZINE IV* 20 MG/ML VIAL IV SLOW PU ONE (15:26)
[2018-02-19] MEDS ORDERED: Nicotine GUM* 2 MG PO PRN (15:41)
[2018-02-19] MEDS ORDERED: Nicotine Inhaler* 10 MG AMP INH PRN (15:41)
[2018-02-19] MEDS ORDERED: cefTRIAXone(*) 1 GM in NS 0.9% 50 ML* 50 ML IVPB SCH (16:00)
[2018-02-19] MEDS: HYDROmorphone INJ1* 1 MG/ML SYRINGE IV SLOW PU PRN ×2 (16:07→21:20)
[2018-02-19] MEDS ORDERED: Warfarin TAB(*) 10 MG PO SCH (17:00)
[2018-02-19 17:19] LABS: Folate 4.63 ng/mL (>3.99)
[2018-02-19] MEDS: Insulin LISPRO* 1 UNITS UNIT SUBCUT SCH (17:33)
[2018-02-19] MEDS: Promethazine TAB* 25 MG PO PRN (17:39)
[2018-02-19] MEDS: BETHANECHOL 10 MG PO SCH ×2 (17:39→20:08)
[2018-02-19 17:56] LABS: Body Fluid Source Peritonial Fluid
[2018-02-19] MEDS ORDERED: Omeprazole CAP* 20 MG PO SCH (18:00)
[2018-02-19 18:29] LABS: Urine Appearance Cloudy; Urine Bacteria Absent (Absent); Urine Bilirubin Negative (Negative); Urine Blood 3+ (Negative); Urine Color Yellow; Urine Glucose 3+(>=500 mg/dL) (Negative); Urine Ketones Negative (Negative); Urine Nitrite Negative (Negative); Urine Protein 2+(100 mg/dL) (Negative); Urine Red Blood Cell 2+(6-10/hpf) (Absent); Urine Specific Gravity 1.023 (1.010-1.030); Urine Urobilinogen Negative (Negative); Urine White Blood Cell Trace(0-5/hpf) (Absent)
[2018-02-19] MEDS: Methadone TAB* 5 MG PO PRN (20:07)
[2018-02-19] MEDS: Gabapentin CAP(*) 100 MG PO SCH (20:08)
--- NOTE | 2018-02-19 20:20 | HP ---
CC: Dr. Solis* [facility] MEDICINE HISTORY AND PHYSICAL: DATE OF ADMISSION: 02/19/18 ATTENDING PHYSICIAN: Dr. Fuentes Hardy* (dictation provided by Hortencia Jimenez NP) CHIEF COMPLAINT: Abdominal pain, headache, fever, chest pain, nausea, dizziness. HISTORY OF PRESENT ILLNESS: Ms. Wright is a 37-year-old female with a past medical history of end-stage renal disease, on peritoneal dialysis; as well as GERD; coronary artery disease; melanoma; insulin-dependent type 2 diabetes; gastroparesis; peripheral arterial disease; chronic hypoxic respiratory failure , on 2 L nasal cannula; tobacco abuse; depression; and anxiety; who presents to the hospital today with multiple complaints. Ms. Wright believes that her symptoms all trace back to a procedure that she had done on her leg approximately an year and a half ago. She believes that there were complications after that procedure, and now, she will have episodes with severe intense abdominal pain associated with headache, nausea, vomiting, dizziness, fevers. She states she has been treated with antibiotics, IV narcotics, and IV antiemetics for these episodes but that nothing clearly was ever found to be causing them. She states that this episode began 2 weeks ago. She states that they often begin with her "sleeping a lot." Ultimately today, she had severe pain along the left side of her abdomen, which she thought was stabbing in nature and unusual despite her history of chronic abdominal pain. She also reports nausea, vomiting, chest pain. She reports fevers and chills with a temperature up to 101. She has a headache. She feels dizzy. She states that the most prominent symptom for her is the abdominal pain. She denies any dysuria or frequency. She reports normal formed bowel movements. In the emergency room, Ms. Wright had labs which showed a white blood cell count of 20.4; hemoglobin 9.9, this is down from her baseline which was last found to be 13.9. Her INR is 1.71. Her BUN and creatinine are 30 and 4.00 respectively consistent with her history of end-stage renal disease. Her glucose was dramatically elevated at 513, but is now down to 218. Her CRP is 64.32. She has had an abdomen and pelvis CT, which showed no acute abdominal process, but did show interstitial edema and small dependent pleural effusions noted at the visualized inferior thorax with mild cardiomegaly. On review of the record from our hospital, I note the patient has had numerous admissions with similar complaints of upper abdominal pain, intractable nausea, and vomiting thought to be related to her peritoneal dialysis and gastroparesis in the past. For this, recently in February of last year, she did have a HIDA scan, gallbladder ultrasound which only showed cholestasis. On at least the past three admissions, the patient has left against medical advice. PAST MEDICAL HISTORY: 1. End-stage renal disease, on peritoneal dialysis. 2. GERD. 3. Coronary artery disease. 4. Melanoma. 5. Insulin-dependent type 2 diabetes. 6. Gastroparesis. 7. Peripheral arterial disease. 8. Chronic hypoxic respiratory failure, on 2 L nasal cannula constantly. 9. Anxiety. 10. Depression. 11. Asthma. 12. History of tobacco abuse. MEDICATIONS: 1. Losartan 100 mg p.o. daily. 2. Lantus insulin 8 units subcutaneously at bedtime. 3. NovoLog insulin with meals via sliding scale. 4. Aspirin 81 mg p.o. daily. 5. Methadone 5 mg p.o. q.8 hours p.r.n. 6. Warfarin 7.5 to 10 mg alternating dose. The patient is unsure of which day she takes each dose. 7. Sertraline 25 mg p.o. daily. 8. Urecholine 10 mg p.o. 4 times a day. 9. Albuterol inhaler 2 puffs inhaled q.6 hours p.r.n. 10. Albuterol nebulizer 2.5 mg inhaled q.4 hours p.r.n. 11. Promethazine 25 mg p.o. q.8 hours p.r.n. 12. Omeprazole 40 mg p.o. q.p.m. 13. Gabapentin 200 mg p.o. t.i.d. ALLERGIES: AMOXICILLIN, CLAVULANIC ACID, ERYTHROMYCIN BASE, HEPARIN, METOCLOPRAMIDE, METRONIDAZOLE, NIACIN, ROPINIROLE, SULFA, and PLASTIC TAPE. FAMILY HISTORY: Father had an NE at 49. Mom, dad, and all her siblings have diabetes. Her grandfather had lung cancer and her mother had ovarian cancer. SOCIAL HISTORY: The patient is a half a pack a day smoker. She denies alcohol use. She is disabled. She lives with her boyfriend. He is her healthcare proxy. His number is [phone]. REVIEW OF SYSTEMS: A 14-point review of systems was completed and all those not mentioned above were negative. PHYSICAL EXAMINATION GENERAL: Ms. Wright is sitting up in the bed. She is in no acute distress. VITAL SIGNS: Temperature 99.5, pulse rate 113, respiratory rate 14, O2 saturation 94% on 2 L nasal cannula, blood pressure 181/93. LUNGS: Have crackles at the bases bilaterally. There is no accessory muscle use. There is good aeration. HEART: S1, S2. No murmur, rub, or gallop, and regular. ABDOMEN: Soft. It is nontender. Bowel sounds positive x4. EXTREMITIES: No cyanosis. Positive for 1+ edema. NEURO: She is alert, she is oriented x3. She moves all extremities equally. There is no facial asymmetry or focal weakness. Extraocular movements are intact. SKIN: Intact. DIAGNOSTIC STUDIES/LAB DATA: WBC 20.4, hemoglobin 9.9, hematocrit 30, platelet count 284. INR 1.71. A pH 7.40, pCO2 of 41, pO2 of 116, bicarbonate 25.2. Sodium 132, potassium 3.9, chloride 96, serum bicarbonate 28, BUN 30, creatinine 4.00, glucose was 513. CRP 64.32. CT abdomen and pelvis is read as follows: Interstitial edema and small dependent pleural effusions noted at the visualized inferior thorax with mild cardiomegaly, hepatomegaly, small hiatal hernia, normal appendix documented, mild colonic diverticulosis without findings of acute diverticulitis, tip of the peritoneal dialysis catheter is coiled at the right lower quadrant, moderate diffuse peritoneal fluid, no loculated peritoneal fluid collection evident. ASSESSMENT: Ms. Wright is a 37-year-old female who presents today to the hospital with concern for multiple complaints including abdominal pain, headache , nausea, fever. Our plans are for inpatient admission as I expect length of stay will be greater than 2 days for the followin. Abdominal pain. The patient has had chronic abdominal pain at least going back 1 year with multiple hospitalizations, after which she has left against medical advice from the hospital. Her abdomen and pelvis CT shows no acute abnormality. She did have a HIDA scan last year for similar complaint as well as gallbladder ultrasound. Her pain seems to be more generalized. I questioned whether or not this is related to her gastroparesis and peritoneal dialysis history. Regardless, do plan to check peritoneal dialysis fluid, start pain meds p.r.n. Plan to follow up and check further imaging if needed based on clinical course. 2. Hypervolemia. The patient appears to have fluid overload based on the low hemoglobin and her reported weight gain (she states her baseline weight is 191, she weighs 211 today0. Her blood pressure is also elevated and she is tachycardic which all could go along with hypervolemia related to ESRD. I plan to review this again with the team at dialysis. Her last echocardiogram was in May, at which time she had a normal ejection fraction, no significant valvular abnormalities. I do not see any indication at this time to repeat that , but that could be considered. 3. Leukocytosis. Plan to treat with ceftriaxone for now, can de-escalate in 24 hours if no etiology determined. 4. Headache. I suspect this is related to elevated blood pressure. We will treat her blood pressure aggressively and provide pain medications for her other generalized pain. She has no neurologic deficits. 5. Anemia. Plan to check her stool occult blood. She likely has a component of anemia of chronic disease. I do question whether or not this could be related to fluid overload and is simply a dilutional effect. We will add on iron, vitamin B12, and folate. 6. Peritoneal dialysis. I have alerted the team and they will be providing materials for her to continue with her peritoneal dialysis. 7. Gastroesophageal reflux disease, continue omeprazole. 8. Type 2 diabetes. Plan to continue her home Lantus, and she will have lispro sliding scale with each meal. 9. Tobacco abuse. She will have nicotine replacement available. 10. Code status is full code. TIME SPENT: Approximately 60 minutes were spent in the admission of this patient, more than half the time spent with the patient at bedside reviewing the events leading up to this hospitalization, performing the physical examination, and reviewing my plan of care. HORTENCIA JIMENEZ NP [id number]/CPS #: [id number] VIRI
[2018-02-19] MEDS ORDERED: Insulin GLARGINE(*) 1 UNITS UNIT SUBCUT SCH (21:00)
[2018-02-19 22:44] LABS: Body Fluid Band 4 %
[2018-02-20] MEDS: HYDROmorphone INJ1* 1 MG/ML SYRINGE IV SLOW PU PRN ×3 (01:22→09:04)
[2018-02-20] MEDS: Promethazine TAB* 25 MG PO PRN (05:28)
[2018-02-20 05:39] LABS: ABS Basophils 0.1 10^3/ul (0-0.2); ABS Eosinophils 0.3 10^3/ul (0-0.6); ABS Lymphocytes 1.5 10^3/ul (1.0-4.8); ABS Monocytes 0.4 10^3/ul (0-0.8); ABS Neutrophils 11.1 10^3/ul (1.5-7.7); ABS Nucleated RBC 0 10^3/ul; Eosinophil % 2.5 %; Hematocrit 29 % (35-47); Hemoglobin 9.4 g/dl (12.0-16.0); Lymphocyte % 11.3 %; Mean Corpuscular HGB Conc 33 g/dl (31-36); Mean Corpuscular Hemoglobin 29 pg (27-31); Mean Corpuscular Volume 89 fL (80-97); Mean Platelet Volume 8.3 fL (7.4-10.4); Nucleated Red Blood Cells % 0.1; Platelet Count 279 10^3/ul (150-450); Red Cell Distribution Width 16 % (10.5-15); White Blood Count 13.4 10^3/ul (3.5-10.8)
[2018-02-20 05:43] LABS: INR 2.14 (0.77-1.02)
[2018-02-20 05:58] LABS: BUN/Creatinine Ratio 7.4 (8-20); Calcium 8.1 mg/dL (8.6-10.3); EGFR Non-African American 11.9 (>60)
[2018-02-20] MEDS: BETHANECHOL 10 MG PO SCH (07:59)
[2018-02-20] MEDS: Gabapentin CAP(*) 100 MG PO SCH ×2 (08:01→13:49)
[2018-02-20] MEDS: Methadone TAB* 5 MG PO PRN (08:02)
[2018-02-20] MEDS ORDERED: Losartan TAB* 25 MG PO SCH (09:00)
[2018-02-20] MEDS ORDERED: Sertraline* 25 MG TAB PO SCH (09:00)
[2018-02-20] MEDS ORDERED: Mupirocin 2% OINT* TUBE TOPICAL SCH (09:00)
[2018-02-20] MEDS ORDERED: Aspirin 81 mg CHEW TAB* 81 MG TAB.CHEW PO SCH (09:00)
[2018-02-20] MEDS ORDERED: Nicotine PATCH 14 MG/24 HR* PATCH TRANSDERM SCH (09:00)
[2018-02-20] MEDS: Insulin LISPRO* 1 UNITS UNIT SUBCUT SCH ×2 (09:09→13:48)
[2018-02-20 14:15] VITALS: BP 157/65
[2018-02-20] MEDS ORDERED: Nicotine Patch Removal NOTE PATCH OFF SCH (21:00)
--- NOTE | 2018-02-20 21:20 | DS ---
CC: Dr. Solis* DISCHARGE SUMMARY: DATE OF ADMISSION: 02/19/18 DATE OF DISCHARGE: 02/20/18 PRIMARY CARE PROVIDER: Dr. Solis. ATTENDING PHYSICIAN: Dr. Fuentes Hardy* (dictated by Jillian Vigil NP). PRIMARY DIAGNOSES: 1. Abdominal pain. 2. Headache. 3. Fever. 4. Chest pain. 5. Nausea. 6. Dizziness. SECONDARY DIAGNOSES: 1. End-stage renal disease, on peritoneal dialysis. 2. Gastroesophageal reflux disease. 3. Coronary artery disease. 4. Melanoma. 5. Insulin-dependent type 2 diabetes. 6. Gastroparesis. 7. Peripheral artery disease. 8. Chronic hypoxic respiratory failure, on 2 L nasal cannula. 9. Anxiety. 10. Depression. 11. Asthma. 12. Tobacco abuse. CONSULTATIONS WHILE IN THE HOSPITAL: No consultations. PROCEDURES WHILE IN THE HOSPITAL: No procedures. STUDIES WHILE IN THE HOSPITAL: 1. CT abdomen/pelvis, impression: Interstitial edema with small dependent pleural effusions noted at the visualized inferior thorax. Mild cardiomegaly. Hepatomegaly. Small hiatal hernia. Normal appendix. Mild colonic diverticulosis without findings of acute diverticulitis. Tip of peritoneal dialysis catheter is coiled in the right lower quadrant. Moderate diffuse peritoneal fluid. No loculated peritoneal fluid collection is evident. 2. EKG, impression: Sinus tachycardia. DISCHARGE MEDICATIONS: New home medications: No new home medications. Continued home medications: 1. Urecholine 25 mg p.o. four times a day. 2. Losartan 100 mg p.o. daily. 3. Lantus 80 mg subcu at bedtime. 4. NovoLog subcu a.c. p.r.n. 5. Aspirin 81 mg p.o. daily. 6. Methadone 5 mg p.o. q.8 hours p.r.n., max daily dose 15 mg. 7. Coumadin 7.5 to 10 mg p.o. at bedtime. 8. Zoloft 25 mg p.o. daily. 9. Ventolin HFA 2 puffs inhalation q.6 hours p.r.n. 10. Ventolin nebulizer 2.5 mg inhalation q.4 hours p.r.n. 11. Phenergan 25 mg p.o. q.8 hours p.r.n. 12. Omeprazole 40 mg p.o. q.p.m. 13. Neurontin 200 mg p.o. t.i.d. Changed home medications: No home medications changed. Discontinued home medications: No home meds discontinued. HISTORY OF PRESENT ILLNESS/HOSPITAL COURSE: Ms. Wright is a 37-year-old female with a past medical history significant for end-stage renal disease, which she is on peritoneal dialysis; GERD; CAD; melanoma; insulin-dependent type 2 diabetes; gastroparesis; PAD; chronic hypoxic respiratory failure; tobacco abuse; depression and anxiety, who presented to the emergency department on 02/19/18 with complaints of abdominal pain that has been present for greater than 1 year and had worsened over the past 2 weeks. In addition, the patient complained of headache, fever, chest pain, nausea, dizziness. Please see history and physical dictated by Hortencia Jimenez NP, for complete summary of events leading up to hospitalization, but in short, the patient presented with above-mentioned complaints and states she has been treated with antibiotics, IV narcotics, antiemetics for these episodes and nothing has ever been found. In addition, the patient presented herself to the ER as the pain became more severe over the past 2 weeks and included severe pain along the left side of her abdomen, which was stabbing in nature. While in the emergency room, Ms. Wright was found to have an elevated white count at 12.4 and hemoglobin of 9.9, which is down from her baseline of 13.9. Her glucose was dramatically elevated at 513, but responded well to insulin and came down to 218. Finally, abdominal CT showed no acute abdominal process. The patient was admitted to telemetry and during this hospital stay, the patient's medical records reviewed by her admitting provider, who noted that she has had numerous admissions with similar complaints of upper abdominal pain, intractable nausea and vomiting, most recently being in February of last year which she had a HIDA scan, gallbladder ultrasound which showed cholestasis. It should be mentioned that in the last 3 admissions, the patient had left against medical advice. During her admission, the patient has remained in sinus rhythm to sinus tachycardia with an average BPM of 100. The patient's pain has been more generalized and not localized to one specific area. In order to further evaluate the patient's abdominal pain, her peritoneal fluid was evaluated and within normal limits. I did prefer a Gram stain of her peritoneal fluid, but this was not possible. In addition, as previously mentioned, the patient was found to have a low hemoglobin and it was suspected that the patient was in a hypervolemic state as she has had a recent weight gain, blood pressure was elevated, and she was tachycardic. The patient completed her peritoneal dialysis while in the hospital and weight has decreased by 1 kg. Leukocytosis was initially treated with ceftriaxone x1, but has now decreased from 20.4 to 13.4. In addition, the patient's anemia was further worked up and it was noted that her anemia is most likely multifactorial related to hemodilution and iron deficiency as the patient's iron is 37. Ms. Wright is stable for discharge to home. Vital signs as follows: Temp 97.9 , heart rate 97, respiratory rate 16, O2 saturation 100% on 2 L, BP 170/77. The patient reports her BP is always elevated during one of these "events." In addition, the patient reports anxiety. I would prefer the patient's blood pressure to be low at discharge, but due to her report of this being baseline during these type of episodes and her anxiety, I have encouraged the patient to monitor her blood pressure at home and bring readings to her primary care provider for further adjustment of medications as needed. In addition, the patient has been educated on when to return to the emergency department. FOLLOWUP/DISCHARGE PLAN: 1. Abdominal pain: On assessment this morning, the patient reports her abdominal pain has greatly improved. She reports she would like to be discharged. She reports she has a followup with her GI in mid February with a planned colonoscopy at the end of February. The patient's last BM was 2 days ago. Reports this is normal for her as she has a BM every 2 to 3 days. The patient denies nausea, vomiting, flank pain, urinary symptoms. 2. Anemia: As previously mentioned, I suspect this anemia is multifactorial due to hemodilution, iron deficiency, chronic disease. I would encourage the patient to follow up with her primary care provider to discuss further evaluation and treatment. 3. Leukocytosis: As previously mentioned, the patient's WBC was 20.4 on admission and is currently 13.4. The patient has been afebrile during her hospital stay. In addition, there has been no clear source or suggestion of infection. Therefore, I suspect that this leukocytosis was due to viral/ inflammatory process. The patient should follow up with her primary care provider for a repeat BMP in 1 week. 4. Headache: The patient reported headache on her admission, which admitting provider suspected was related to elevated blood pressure. The patient reports her headache is now resolved. The patient has no neurological deficits. 5. Peritoneal dialysis: The patient's peritoneal fluid was evaluated and within normal limits. The patient should continue her peritoneal dialysis as same. 6. GERD: The patient should continue her omeprazole and follow up with her GI as scheduled. 7. Type 2 diabetes: The patient should continue her home diabetic regimen as same. 8. Tobacco abuse: The patient was educated on smoking and its relation to heart diseases. The patient was encouraged to quit. 9. Chest pain: The patient has been chest pain-free while hospitalized. The patient has been on tele and has been sinus to sinus tachycardic. The patient' s EKG was unremarkable. 10. Fever: The patient reported fever and chills on admission, but was found to be afebrile. The patient has remained afebrile during her hospital stay. 11. Nausea: The patient reports nausea has improved and she is tolerating a regular diet. 12. Dizziness: The patient reports dizziness has improved. Reports that this is a normal occurrence for her when she has abdominal pain. This is a summarized report of a complex medical history and hospital stay. For further details, please see the entire medical record. My plan was discussed with Dr. Fuentes Hardy, who agrees with my plan. TIME SPENT: Approximately 45 minutes was spent on this discharge, greater than half that time was spent [id number] with the patient discussing discharge plans and instructions. JILLIAN VIGIL, VIOLET [id number]/[facility] #: [id number] VIRI
== END 2018-02-20 13:57 | disposition home or self-care (01) ==
LOC: ED 09:32 → INTOOBSV 13:09 → MEDTELE 13:09
PROVIDERS: ADMIT Internal Medicine; ATTEND Internal Medicine
DX: R10.9 Unspecified abdominal pain (principal); R51 Headache; R50.9 Fever, unspecified; R07.9 Chest pain, unspecified; R11.0 Nausea; R42 Dizziness and giddiness; N18.6 End stage renal disease; Z99.2 Dependence on renal dialysis; K21.9 Gastro-esophageal reflux disease without esophagitis; I25.10 Atherosclerotic heart disease of native coronary artery without angina pectoris; C43.9 Malignant melanoma of skin, unspecified; E11.9 Type 2 diabetes mellitus without complications; Z79.4 Long term (current) use of insulin; K31.84 Gastroparesis; I73.9 Peripheral vascular disease, unspecified; J96.11 Chronic respiratory failure with hypoxia; F41.9 Anxiety disorder, unspecified; F32.9 Major depressive disorder, single episode, unspecified; F17.210 Nicotine dependence, cigarettes, uncomplicated; J45.909 Unspecified asthma, uncomplicated; Z88.0 Allergy status to penicillin; Z79.82 Long term (current) use of aspirin; Z85.820 Personal history of malignant melanoma of skin
CPT/HCPCS: 36415; 74176; 80048; 80053; 81003; 81015; 82607; 82746; 82803; 83540; 83605; 83690; 84702; 85025; 85610; 86140; 87040; 87086; 89051; 93005; 96372; 96374; 96375; 96376; 99284; A9270-GY; G0378; J0360; J0696; J1170; J1815; J2270; J2405; J3490

== ENCOUNTER 2018-03-01 15:56 | Emergency (ER) | payer OTHER ==
[2018-03-01] MEDS ORDERED: DOXYcycline CAP(*) 100 MG PO ONE (18:47)
--- NOTE | 2018-03-01 18:51 | UC ---
Respiratory Complaint HPI - HPI Summary HPI Summary: Patient is a 37-year-old female with diabetes as well as end-stage renal disease who presents here with cough and wheezing 2-3 weeks. She states that she has bilateral chest pain from coughing so much. She has felt feverish and had chills. She also has an abscess on her left lower labia that drained spontaneously today. She states that this is in the region that she had a melanoma removed about 8 or 9 years ago. - History of Current Complaint Chief Complaint: UCGeneralIllness Stated Complaint: COLD SYMPTOMS, FEMALE PERSONAL Time Seen by Provider: 03/01/18 17:35 Hx Obtained From: Patient Hx Last Menstrual Period: just finished Onset/Duration: Gradual Onset, Lasting Weeks Timing: Constant Severity Initially: Mild Severity Currently: Moderate Pain Intensity: 6 Pain Scale Used: 0-10 Numeric Character: Cough: Productive Aggravating Factors: Exertion, Deep Breaths Alleviating Factors: Nothing Associated Signs And Symptoms: Positive: Fever, Chills, Wheezing - Allergies/Home Medications Allergies/Adverse Reactions: Allergies Allergy/AdvReac Type Severity Reaction Status Date / Time amoxicillin [From Augmentin] Allergy See Comment Verified 03/01/18 16:17 clavulanic acid Allergy See Comment Verified 03/01/18 16:17 [From Augmentin] erythromycin base Allergy See Comment Verified 03/01/18 16:17 heparin Allergy See Comment Verified 03/01/18 16:17 metoclopramide [From Reglan] Allergy Hives Verified 03/01/18 16:17 metronidazole [From Flagyl] Allergy Nausea And Verified 03/01/18 16:17 Vomiting niacin Allergy Rash Verified 03/01/18 16:17 ropinirole [From Requip] Allergy Hives Verified 03/01/18 16:17 Sulfa (Sulfonamide Allergy Vomiting Verified 03/01/18 16:17 Antibiotics) plastic tape Allergy Mild Blisters Uncoded 03/01/18 16:17 Home Medications: Home Medications Calcitriol CAP* [Rocaltrol CAP*] 0.25 mcg PO TID 03/01/18 [History Confirmed ] PMH/Surg Hx/FS Hx/Imm Hx Endocrine History: Diabetes Cardiovascular History: Cardiac Disease, Hypertension, Deep Vein Thrombosis Respiratory History: Asthma, Bronchitis GI/ History: Renal Disease Other History Of: Anticoagulant Therapy - Aspirin. Negative For: HIV, Hepatitis B, Hepatitis C - Surgical History Surgical History: Yes Surgery Procedure, Year, and Place: LEFT EYE REMOVED 2011 - HAS PROSTHETIC EYE ( ORBITS DONE 06/[address] LIGIA COY TO SCAN IN MRI) ;. MELANOMA REMOVED FROM [facility] 2012 (PROCEDURE DONE 4X);. CARDIAC CATH 2013 - NO STENTS;. LEFT WRIST FISTULA PLACEMENT ([facility]) 2013;. HEMODIALYSIS CATH RIGHT CHEST WALL 2013;. PERITONEAL DIALYSIS CATH 03/2014;. CHEST WALL CATH REMOVAL 08/2015 [facility] [place]. RIGHT GREAT TOE AMPUTATION, [facility] [place] 05/2015;. PLACEMENT RIGHT JUGULAR TESIO HEMODIALYSIS CATHETER [facility] [place] 10/22/2015;. REMOVAL OF JUGULAR CATH - OCT 2015. CARDIAC CATH - stentsx2 right leg. PARTIAL AMPUTATION RIGHT TOES 06/2016. RIGHT TOES ALL REMOVED - Family History Known Family History: Positive: Cardiac Disease - father [place] at 42 y/o, Hypertension, Other - Positive for bipolar and depression. Completed suicide to sister. - Social History Alcohol Use: None Substance Use Type: None Substance Use Comment - Amount & Last Used: methadone Smoking Status (MU): Heavy Every Day Tobacco Smoker Type: Cigarettes Amount Used/How Often: 1 PPD Length of Time of Smoking/Using Tobacco: 20 YEARS Have You Smoked in the Last Year: Yes Household Exposure Type: Cigarettes - Immunization History Most Recent Influenza Vaccination: 2016 Most Recent Tetanus Shot: 2013 Most Recent Pneumonia Vaccination: per pt: sometime in 2013 Review of Systems All Other Systems Reviewed And Are Negative: Yes Constitutional: Positive: Negative Skin: Positive: Negative Eyes: Positive: Negative ENT: Positive: Negative Respiratory: Positive: Cough Cardiovascular: Positive: Chest Pain Gastrointestinal: Positive: Negative Genitourinary: Positive: Negative Motor: Positive: Negative Neurovascular: Positive: Negative Musculoskeletal: Positive: Negative Neurological: Positive: Negative Psychological: Positive: Negative Physical Exam Triage Information Reviewed: Yes Appearance: Well-Appearing, No Pain Distress, Well-Nourished Vital Signs: Initial Vital Signs Temp 97.8 F 03/01/18 16:08 Pulse 103 03/01/18 16:08 Resp 18 03/01/18 16:08 BP 179/90 03/01/18 16:08 Pulse Ox 100 03/01/18 16:08 Vital Signs Reviewed: Yes Eyes: Positive: Conjunctiva Clear - R, Other: - absent left eye ENT: Positive: Hearing grossly normal. Negative: Pharyngeal erythema, Nasal drainage, Tonsillar swelling, Tonsillar exudate Neck: Positive: Supple, Nontender, No Lymphadenopathy Respiratory: Positive: No respiratory distress, No accessory muscle use, Wheezing Cardiovascular: Positive: RRR, No Murmur Abdomen Description: Positive: Nontender Bowel Sounds: Positive: Present Musculoskeletal: Positive: Other: - partial amp right foot Neurological: Positive: Alert, Other: - peripheral neuropathy Skin: Positive: Other - tender small non flutuant abscess right perineum UC Diagnostic Evaluation - Laboratory O2 Sat by Pulse Oximetry: 100 - normal/not hypoxic - Radiology Radiology Interpretation Completed By: Radiologist Summary of Radiographic Findings: CXR neg - EKG Cardiac Rate: Tachycardia Cardiac Rhythm: Sinus: Normal Ectopy: None ST Segment: Non-Specific Respiratory Course/Dx - Differential Dx/Diagnosis Provider Diagnosis: Bronchospasm with bronchitis, acute, Abscess, perineum Discharge - Sign-Out/Discharge Documenting (check all that apply): Patient Departure All imaging exams completed and their final reports reviewed: Yes - Discharge Plan Condition: Stable Disposition: HOME Prescriptions: DOXYcycline CAP(*) [DOXYcycline 100MG CAP(*)] 100 mg PO BID #12 cap Patient Education Materials: Acute Bronchitis (ED), Abscess (ED) Referrals: Aishwarya Solis MD [Primary Care Provider] - 2 Days Additional Instructions: take doxy with food warm compresses to abscess - Billing Disposition and Condition Condition: STABLE Disposition: Home
[2018-03-01 19:03] VITALS: BP 180/90
== END 2018-03-01 19:07 | disposition home or self-care (01) ==
LOC: UCEAST 15:56
DX: J20.9 Acute bronchitis, unspecified (principal); L02.215 Cutaneous abscess of perineum; E11.22 Type 2 diabetes mellitus with diabetic chronic kidney disease; I12.0 Hypertensive chronic kidney disease with stage 5 chronic kidney disease or end stage renal disease; N18.6 End stage renal disease; J45.909 Unspecified asthma, uncomplicated; F17.210 Nicotine dependence, cigarettes, uncomplicated; Z88.0 Allergy status to penicillin; Z88.1 Allergy status to other antibiotic agents; Z88.8 Allergy status to other drugs, medicaments and biological substances; Z88.2 Allergy status to sulfonamides; Z91.048 Other nonmedicinal substance allergy status
CPT/HCPCS: 71046; 93005; 99213; A9270-GY; G0463

== ENCOUNTER 2018-03-04 15:09 | Inpatient (IN) | payer OTHER ==
--- NOTE | 2018-03-04 16:19 | ED ---
Shortness of Breath - HPI Summary HPI Summary: A 37 y/o female brought in by [facility] presents to [facility] with a chief complaint of SOB for a month which worsened on 03/03/18. She rates her pain as 8 /10. She also c/o chest pain, which she describes as a tightness, along with a cough. She states that a nebulizer and O2 alleviate her pain. The patient also reports being on dialysis every 6 hours at home. The patient also claims that she has not been taking her doxycycline which [facility] because she did not fill it up. She had a CXR which showed bronchitis. The patient was supposed to see her PCP today, but came to the ED due to her pain. - History of Current Complaint Chief Complaint: EDShortnessOfBreath Time Seen by Provider: 03/04/18 15:21 Hx Obtained From: Patient Onset/Duration: Sudden Onset, Lasting Weeks, Still Present Timing: Constant Current Severity: Severe Dyspnea At: Rest Aggrevating Factors: Nothing Alleviating Factors: Oxygen, Other - Nebulizer - Allergy/Home Medications Allergies/Adverse Reactions: Allergies Allergy/AdvReac Type Severity Reaction Status Date / Time amoxicillin [From Augmentin] Allergy See Comment Verified 03/04/18 15:18 clavulanic acid Allergy See Comment Verified 03/04/18 15:18 [From Augmentin] erythromycin base Allergy See Comment Verified 03/04/18 15:18 heparin Allergy See Comment Verified 03/04/18 15:18 metoclopramide [From Reglan] Allergy Hives Verified 03/04/18 15:18 metronidazole [From Flagyl] Allergy Nausea And Verified 03/04/18 15:18 Vomiting niacin Allergy Rash Verified 03/04/18 15:18 ropinirole [From Requip] Allergy Hives Verified 03/04/18 15:18 Sulfa (Sulfonamide Allergy Vomiting Verified 03/04/18 15:18 Antibiotics) plastic tape Allergy Mild Blisters Uncoded 03/04/18 15:18 PMH/Surg Hx/FS Hx/Imm Hx Endocrine/Hematology History: Reports: Hx Anticoagulant Therapy - Aspirin., Hx Blood Transfusions, Hx Diabetes - uses insulin, Hx Thyroid Disease - nodule, Hx Anemia - hx of - reports had tranfusion in 2013 after mi Cardiovascular History: Reports: Hx Angina, Hx Cardiac Arrest - in 2013 with CPR, Hx Cardiomegaly, Hx Coronary Artery Disease, Hx Deep Vein Thrombosis, Hx Hypercholesterolemia, Hx Hypertension, Hx Myocardial Infarction, Other Cardiovascular Problems/Disorders Denies: Hx Congestive Heart Failure, Hx Pacemaker/ICD, Hx Valvular Heart Disease Respiratory History: Reports: Hx Asthma, Hx Chronic Obstructive Pulmonary Disease (COPD) - smoker, Hx Pneumonia, Hx Sleep Apnea, Other Respiratory Problems/Disorders - acute respipatory failure with hypoxia - jan 2016 Denies: Hx Lung Cancer, Hx Pulmonary Embolism - pt says no, although documented in char GI History: Reports: Hx Gall Bladder Disease, Hx Gastroesophageal Reflux Disease , Other GI Disorders - GASTROPARESIS - TAKING OMEPRAZOLE, reglan and zofran Denies: Hx Gastrointestinal Bleed, Hx Ulcer, Hx Urosepsis History: Reports: Hx Acute Renal Failure, Hx Chronic Renal Failure - ESRD on PD, Hx Dialysis - PERITONEAL, Hx Kidney Stones, Hx Renal Disease - ESRD on home peritoneal dialysis , Other Problems/Disorders Musculoskeletal History: Reports: Hx Arthritis - back, hips, Hx Back Problems - Sciatica and Herniated L3 disk, Other Musculoskeletal History - partial amputation of toes/foot Sensory History: Reports: Hx Eye Prosthesis - left, 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 no vision in left, Hx Vision Problem Denies: Hx Contacts or Glasses Neurological History: Reports: Other Neuro Impairments/Disorders - neuropathy Denies: Hx Transient Ischemic Attacks (TIA) Psychiatric History: Reports: Hx Anxiety, Hx Depression, Hx Bipolar Disorder Denies: Hx Eating Disorder, Hx Panic Disorder, Hx Schizophrenia, Hx of Violent Episodes Against Others - Cancer History Cancer Type, 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 MELANOMA REMOVED FROM [facility] 2012 (PROCEDURE DONE 4X);. CARDIAC CATH 2013 - NO STENTS;. LEFT WRIST FISTULA PLACEMENT ([facility]) 2013;. HEMODIALYSIS CATH RIGHT CHEST WALL 2013;. PERITONEAL DIALYSIS CATH 03/2014;. CHEST WALL CATH REMOVAL 08/2015 [facility] [place];. RIGHT GREAT TOE AMPUTATION, [facility] [place] 05/2015;. PLACEMENT RIGHT JUGULAR TESIO HEMODIALYSIS CATHETER [facility] [place] 10/22/2015;. REMOVAL OF JUGULAR CATH - OCT 2015. CARDIAC CATH - stentsx2 right leg. PARTIAL AMPUTATION RIGHT TOES 06/2016. RIGHT TOES ALL REMOVED Hx Anesthesia Reactions: No - Immunization History Date of Tetanus Vaccine: utd Date of Influenza Vaccine: 11/2016 Infectious Disease History: No Infectious Disease History: Reports: Hx of Known/Suspected MRSA - MRSA R 1st toe , History Other Infectious Disease - GANGRENE Denies: Hx Clostridium Difficile, Hx Hepatitis, Hx Human Immunodeficiency Virus (HIV), Hx Shingles, Hx Tuberculosis, Traveled Outside the [place] in Last 30 Days - Family History Known Family History: Positive: Cardiac Disease - father [place] at 42 y/o, Hypertension, Other - Positive for bipolar and depression. Completed suicide to sister. - Social History Alcohol Use: None Hx Substance Use: No Substance Use Type: Reports: None Substance Use Comment - Amount & Last Used: methadone Hx Tobacco Use: Yes Smoking Status (MU): Heavy Every Day Tobacco Smoker Type: Cigarettes Amount Used/How Often: 1 PPD Length of Time of Smoking/Using Tobacco: 20 YEARS Have You Smoked in the Last Year: Yes Review of Systems Negative: Fever Positive: Chest Pain Positive: Shortness Of Breath, Cough All Other Systems Reviewed And Are Negative: Yes Physical Exam - Summary Physical Exam Summary: Appearance: The patient is well-nourished in no acute distress and in no acute pain. Skin: The skin is warm and dry and skin color reflects adequate perfusion. HEENT: The head is normocephalic and atraumatic. The pupils are equal and reactive. The conjunctivae are clear and without drainage. Nares are patent and without drainage. Mouth reveals moist mucous membranes and the throat is without erythema and exudate. The external ears are intact. The ear canals are patent and without drainage. The tympanic membranes are intact. Neck: The neck is supple with full range of motion and non-tender. There are no carotid bruits. There is no neck vein distension. Respiratory: Chest is non-tender. Expiratory wheezing with coughing. Cardiovascular: Heart is regular rate and rhythm. There is no murmur or rub auscultated. There is no peripheral edema and pulses are symmetrical and equal. Abdomen: The abdomen is soft and non-tender. There are normal bowel sounds heard in all four quadrants and there is no organomegaly palpated. Musculoskeletal: There is no back tenderness noted. Extremities are non-tender with full range of motion. There is good capillary refill. There is no peripheral edema or calf tenderness elicited. Neurological: Patient is alert and oriented to person, place and time. The patient has symmetrical motor strength in all four extremities. Cranial nerves are grossly intact. Deep tendon reflexes are symmetrical and equal in all four extremities. Psychiatric: The patient has an appropriate affect and does not exhibit any anxiety or depression. Triage Information Reviewed: Yes Vital Signs On Initial Exam: Initial Vitals Temp Pulse Resp BP Pulse Ox 98.2 F 118 12 186/94 90 03/04/18 15:15 03/04/18 15:15 03/04/18 15:15 03/04/18 15:15 03/04/18 15:15 Vital Signs Reviewed: Yes Diagnostics - Vital Signs Vital Signs Temp Pulse Resp BP Pulse Ox 03/04/18 16:09 82 03/04/18 16:01 109 21 161/82 89 03/04/18 16:00 109 17 90 03/04/18 15:53 110 16 94 03/04/18 15:44 88 03/04/18 15:39 90 03/04/18 15:38 111 160/99 88 03/04/18 15:31 111 16 160/99 95 03/04/18 15:17 87 03/04/18 15:15 98.2 F 118 12 186/94 90 - Laboratory Result Diagrams: 03/04/18 16:49 03/04/18 16:49 Lab Statement: Any lab studies that have been ordered have been reviewed, and results considered in the medical decision making process. - Radiology CXR Radiology Interpretation Completed By: Radiologist Summary of Radiographic Findings: Cardiomegaly with interstitial edema consistent with vascular congestion. This. is slightly more progressive than on previous exam of 1.19. ED provider has reviewed this imaging report. - EKG 15:16 Cardiac Rate: Tachycardia - 115 bpm EKG Rhythm: Sinus Tachycardia Summary of EKG Findings: EKG at 15:16 shows sinus tachycardia at 115 bpm with LVH. Course/Dx - Course Course Of Treatment: Ms. Wright presented complaining of shortness of breath. She improved a lot in the ambulance ride in after a DuoNeb. She was diagnosed with bronchitis a few days ago in the [facility] and prescribed doxycycline which she did not fill it. She also complains of some abdominal pain and some thigh pain. She has expiratory wheezing with coughing but her breath sounds are clear otherwise. She was found to have a leukocytosis here as well as anemia. The hospitalists were asked to evaluate her for admission. - Diagnoses Provider Diagnoses: Abdominal pain, Leukocytosis, Pulmonary edema - Physician Notifications Discussed Care of Patient With: Lore Rothman Time Discussed With Above Provider: 17:30 Instructed by Provider To: Admit As Inpatient Discharge - Sign-Out/Discharge Documenting (check all that apply): Patient Departure - admit - Discharge Plan Condition: Fair Disposition: ADMITTED TO [facility] Referrals: Aishwarya Solis MD [Primary Care Provider] - - Billing Disposition and Condition Condition: FAIR Disposition: Admitted to [facility] - Attestation Statements Document Initiated by Leslie: Yes Documenting Scribe: Jori Alonzo Provider For Whom Leslie is Documenting (Include Credential): Km Harper MD Scribe Attestation: IJori scribed for Km Harper MD on 03/04/18 at 1836. Scribe Documentation Reviewed: Yes Provider Attestation: The documentation as recorded by the Jori sexton accurately reflects the service I personally performed and the decisions made by me, Km Harper MD Status of Scribe Document: Viewed
[2018-03-04 17:02] LABS: ABS Basophils 0.1 10^3/ul (0-0.2); ABS Eosinophils 0.1 10^3/ul (0-0.6); ABS Lymphocytes 0.7 10^3/ul (1.0-4.8); ABS Monocytes 0.4 10^3/ul (0-0.8); ABS Neutrophils 16.2 10^3/ul (1.5-7.7); ABS Nucleated RBC 0 10^3/ul; Eosinophil % 0.8 %; Hematocrit 28 % (35-47); Hemoglobin 8.9 g/dl (12.0-16.0); Lymphocyte % 4.1 %; Mean Corpuscular HGB Conc 32 g/dl (31-36); Mean Corpuscular Hemoglobin 29 pg (27-31); Mean Corpuscular Volume 91 fL (80-97); Nucleated Red Blood Cells % 0; Platelet Count 369 10^3/ul (150-450); Red Blood Count 3.07 10^6/ul (4.00-5.40); Red Cell Distribution Width 17 % (10.5-15); White Blood Count 17.6 10^3/ul (3.5-10.8)
[2018-03-04 17:16] LABS: Influenza A Molecular NEGATIVE (Negative); Influenza B Molecular NEGATIVE (Negative)
[2018-03-04 17:17] LABS: Albumin 3.2 g/dL (3.2-5.2); BUN/Creatinine Ratio 7.1 (8-20); C Reactive Protein 73.29 mg/L (<8.01); Calcium 8.6 mg/dL (8.6-10.3); EGFR African American 12.7 (>60); EGFR Non-African American 10.5 (>60); Globulin 3.2 g/dL (2-4); Potassium 3.6 mmol/L (3.5-5.0); Total Bilirubin 0.3 mg/dL (0.2-1.0); Total Protein 6.4 g/dL (6.4-8.9)
[2018-03-04 17:23] LABS: INR 2.37 (0.77-1.02)
[2018-03-04] MEDS ORDERED: Promethazine TAB* 25 MG PO PRN (18:07)
[2018-03-04] MEDS ORDERED: Insulin ASPART (NF) 1 UNIT SUBCUT PRN (18:07)
[2018-03-04] MEDS ORDERED: Albuterol HFA INHALER* 8 gm MDI INH PRN (18:07)
[2018-03-04] MEDS ORDERED: Methadone TAB* 10 MG PO PRN (18:07)
[2018-03-04] MEDS ORDERED: Ondansetron INJ* 2 MG/ML VIAL IV PRN (18:16)
[2018-03-04] MEDS ORDERED: Cyclobenzaprine TAB* 10 MG PO ONE ×2 (19:14→21:00)
[2018-03-04] MEDS ORDERED: Furosemide IV* 10 MG/ML VIAL (40 MG) IV ONE (19:22)
--- NOTE | 2018-03-04 20:00 | HP ---
CC: Dr. Aishwarya Solis; Dr. Luis Marrufo * HISTORY AND PHYSICAL: DATE OF ADMISSION: 03/04/18 PRIMARY CARE PROVIDER: Dr. Aishwarya Solis. MANAGER DISH: Dr. Luis Marrufo. CHIEF COMPLAINT: Abdominal pain, headaches, fever, nausea, vomiting. HISTORY OF PRESENT ILLNESS: Ms. Wright is a 37-year-old female with past medical history of ESRD, on peritoneal dialysis; GERD; CAD; melanoma; type 2 insulin- dependent diabetes; peripheral arterial disease with stent; chronic hypoxic respiratory failure, on home O2 at 2 L, who now presents to the emergency room with numerous complaints. She reports that she is having some leg pain as well as having abdominal pain which is characterized as dull pain associated with nausea and vomiting. She is also having chest pain and shortness of breath. She reports chronic cough with no recent changes. She reports that her chest pain is dull, present at all times with no relation to activity or coughing. She reports that she is having fever at home, states that the fever at home is 99 degrees Fahrenheit associated with chills. She has generalized throbbing headache which is chronic for her with no recent changes. She is also having nausea and vomiting. It should be noted that the patient did not have any vomiting in the emergency room. In the emergency room , the patient had workup done in the form of blood work, which showed her white cell count was 17.6, her troponin was 0.06, INR was 2.37. Subsequently, the hospitalist service was called for admission. PAST MEDICAL HISTORY: 1. End-stage renal disease, on peritoneal dialysis. 2. GERD. 3. Coronary artery disease. 4. Melanoma. 5. Insulin-dependent type 2 diabetes. 6. Peripheral arterial disease. 7. Gastroparesis. 8. Chronic hypoxic respiratory failure, on 2 L nasal cannula. 9. Anxiety. 10. Depression. 11. Asthma. 12. Tobacco abuse. HOME MEDICATIONS: Include: 1. Omeprazole 40 mg at bedtime. 2. Albuterol 2 puffs inhaler. 3. Methadone 5 mg every 8 hours as needed. 4. Gabapentin 200 mg 3 times a day. 5. Insulin a.c. aspart sliding scale. 6. Promethazine 25 mg as needed every 8 hours. 7. Albuterol inhaler as needed. 8. Insulin glargine 80 units at bedtime. 9. Warfarin 7.5 mg at bedtime. 10. Aspirin 81 mg daily. 11. Losartan 100 mg daily. 12. Sertraline 25 mg daily. 13. Bethanechol 25 mg 4 times a day. 14. Calcitriol 0.25 mcg 3 times a day. 15. Doxycycline 100 mg, which she finished. ALLERGIES: Allergic to AMOXICILLIN, AUGMENTIN, ERYTHROMYCIN, HEPARIN, REGLAN, METRONIDAZOLE, NIACIN, ROPINIROLE, SULFA, PLASTIC TAPE. It should be noted that she tolerated Rocephin during the last admission. FAMILY HISTORY: Father had an ME at 49, all siblings and parents have diabetes , grandfather had lung cancer, and mother with ovarian cancer. SOCIAL HISTORY: She smokes half-a-pack per day. Lives at home. No alcohol use. She says she lives with her boyfriend, who is her healthcare proxy, phone number is [phone]. REVIEW OF SYSTEMS: A 14-point review of systems was done, otherwise mentioned as above. Otherwise is negative. PHYSICAL EXAMINATION GENERAL: She is a young female, who appears older than her age, lying in an ER stretcher, in no acute distress, nasal cannula is on. VITAL SIGNS: Blood pressure is 170/89, heart rate of 111, temperature of 98.7, respiratory rate of 16 with saturation of 94% on nasal cannula. HEENT: Pupils equal, round, reactive to light. Atraumatic, normocephalic. LUNGS: There is no tachypnea, no use of accessory muscles. There are bibasilar crackles heard. There are no rhonchi, no wheezing. CARDIAC: Regular rate and rhythm. No murmurs appreciated. ABDOMEN: Obese, nondistended. Bowel sounds are normoactive in all 4 quadrants. There is no tenderness. No rigidity or guarding. MUSCULOSKELETAL: No lower extremity edema. No calf tenderness. EXTREMITIES: There is no lower extremity edema. NEUROLOGICAL: Alert and oriented x3, with no focal neurological deficits. DIAGNOSTIC STUDIES/LAB DATA: Labs show white count of 17.6, hemoglobin 8.9, hematocrit of 28, platelets of 369. Sodium of 135, potassium of 3.6, chloride of 97, bicarb 29, BUN 33, creatinine of 4.66. Alk phos of 104. CRP of 73. Troponin of 0.06. Chest x-ray was done, which shows cardiomegaly with interstitial edema with vascular congestion. This is slightly more progressive than exam done previously. EKG shows sinus tachycardia with left ventricular hypertrophy with no acute ST- T changes as prior to the previous EKG. IMPRESSION AND PLAN: 1. Chest pain. Seems nonspecific; however, we will check a second and third troponin as well as a repeat EKG in the morning. 2. Shortness of breath. This could be secondary to end-stage renal disease, currently not requiring more oxygen than her baseline. We will monitor this, continue nebulizers. 3. Elevated blood pressure. Could be secondary to episodic blood pressure. Was given hydralazine in the emergency room. We will monitor this. 4. End-stage renal disease, on peritoneal dialysis. We discussed the case with Dr. Marrufo, educational administration teacher, they will evaluate the patient in the morning, and we will start peritoneal dialysis in the morning as well. 5. Smoker. Discussed smoking cessation. We will start the patient on nicotine patch. 6. Peripheral vascular disease. Resume Coumadin with monitoring the daily INRs. INR goal of 2 to 3. 7. Type 2 diabetes. Continue home insulin regimen, diabetic diet. 8. Leukocytosis. This could be secondary to spontaneous bacterial peritonitis ; however, abdomen exam is benign. For the meantime, we will start the patient on Rocephin and reevaluate the situation in the morning. We will get repeat WBC count and monitor her vitals throughout the hospital course. [id number]/[facility] #: [id number] VIRI
[2018-03-04] MEDS ORDERED: Insulin GLARGINE(*) 1 UNITS UNIT SUBCUT SCH (21:00)
[2018-03-04] MEDS ORDERED: cefTRIAXone(*) 1 GM in NS 0.9% 50 ML* 50 ML IVPB SCH (21:00)
[2018-03-04] MEDS ORDERED: Warfarin TAB(*) 7.5 MG PO SCH (21:00)
[2018-03-04] MEDS: Calcitriol CAP* 0.25 MCG PO SCH (21:11)
[2018-03-04] MEDS: Bethanechol TAB* 25 MG PO SCH (21:12)
[2018-03-04 21:54] LABS: Troponin I 0.06 ng/mL (<0.04)
[2018-03-04] MEDS ORDERED: Dextrose 50% Syringe 50 ML* 25 GM/50 ML SYRINGE IV PUSH PRN (22:08)
[2018-03-04] MEDS ORDERED: Insulin LISPRO* 1 UNITS UNIT SUBCUT PRN (22:08)
[2018-03-04] MEDS: Gabapentin CAP(*) 300 MG PO SCH (22:19)
[2018-03-04] MEDS ORDERED: hydrALAZINE IV* 20 MG/ML VIAL IV SLOW PU PRN (22:46)
[2018-03-05 06:19] LABS: ABS Basophils 0.1 10^3/ul (0-0.2); ABS Eosinophils 0.3 10^3/ul (0-0.6); ABS Lymphocytes 1.1 10^3/ul (1.0-4.8); ABS Monocytes 0.6 10^3/ul (0-0.8); ABS Neutrophils 12.1 10^3/ul (1.5-7.7); ABS Nucleated RBC 0 10^3/ul; Eosinophil % 2.3 %; Hematocrit 25 % (35-47); Hemoglobin 8.1 g/dl (12.0-16.0); Lymphocyte % 7.6 %; Mean Corpuscular HGB Conc 32 g/dl (31-36); Mean Corpuscular Hemoglobin 29 pg (27-31); Mean Corpuscular Volume 91 fL (80-97); Mean Platelet Volume 7.7 fL (7.4-10.4); Nucleated Red Blood Cells % 0; Platelet Count 323 10^3/ul (150-450); Red Blood Count 2.75 10^6/ul (4.00-5.40); Red Cell Distribution Width 18 % (10.5-15); White Blood Count 14.1 10^3/ul (3.5-10.8)
[2018-03-05 06:23] LABS: INR 2.47 (0.77-1.02)
[2018-03-05 06:38] LABS: BUN/Creatinine Ratio 7.9 (8-20); Calcium 7.9 mg/dL (8.6-10.3); EGFR African American 12.6 (>60); EGFR Non-African American 10.4 (>60); Potassium 3.8 mmol/L (3.5-5.0)
[2018-03-05 06:44] LABS: Troponin I 0.07 ng/mL (<0.04)
[2018-03-05] MEDS: Albuterol 2.5 MG/3 ML NEB.SOL* (0.083%) INH PRN ×2 (08:58→13:39)
[2018-03-05] MEDS ORDERED: Nicotine PATCH 14 MG/24 HR* PATCH TRANSDERM SCH (09:00)
[2018-03-05] MEDS ORDERED: Losartan TAB* 25 MG PO SCH (09:00)
[2018-03-05] MEDS ORDERED: Aspirin 81 mg CHEW TAB* 81 MG TAB.CHEW PO SCH (09:00)
[2018-03-05] MEDS: Gabapentin CAP(*) 300 MG PO SCH ×2 (09:39→15:44)
[2018-03-05] MEDS: Bethanechol TAB* 25 MG PO SCH ×2 (09:40→12:57)
[2018-03-05] MEDS ORDERED: Morphine VIAL* 4 MG/ML VIAL (1 ml vial) IV PRN (10:04)
--- NOTE | 2018-03-05 10:19 | PN ---
Subjective Date of Service: 03/05/18 Interval History: Patient complaining of buttock pain. No fever. No chills. Had dialysis earlier this morning. Objective Active Medications: Albuterol (Ventolin 2.5 Mg/3 Ml Neb.Kaylynn*) 2.5 mg INH Q4HR PRN PRN Reason: SOB/WHEEZING Last Admin: 03/05/18 08:58 Dose: 2.5 mg Albuterol (Ventolin Hfa Inhaler*) 2 puff INH Q6H PRN PRN Reason: WHEEZING Aspirin (Aspirin 81 Mg Chew Tab*) 81 mg PO DAILY [facility] Last Admin: 03/05/18 09:42 Dose: 81 mg Bethanechol Chloride (Urecholine Tab*) 25 mg PO QID [facility] Last Admin: 03/05/18 09:40 Dose: 25 mg Calcitriol (Rocaltrol Cap*) 0.25 mcg PO TID [facility] Last Admin: 03/04/18 21:11 Dose: 0.25 mcg Carvedilol (Coreg Tab*) 3.125 mg PO BID [facility] Dextrose (D50w Syringe 50 Ml*) 12.5 gm IV PUSH .FOR FS < 60 - SS PRN PRN Reason: FS < 60 Gabapentin (Neurontin Cap(*)) 300 mg PO TID [facility] Last Admin: 03/05/18 09:39 Dose: 300 mg Hydralazine HCl (Apresoline Iv*) 10 mg IV SLOW PU Q2H PRN PRN Reason: BLOOD PRESSURE Ceftriaxone Sodium 1 gm/ (Sodium Chloride) 50 mls @ 200 mls/hr IVPB Q24H [facility] Last Admin: 03/04/18 21:12 Dose: 200 mls/hr Metronidazole/Sodium Chloride (Flagyl 500 Mg Ivpb*) 500 mg in 100 mls @ 100 mls /hr IVPB Q8H [facility] Insulin Glargine (Lantus(*)) 80 units SUBCUT BEDTIME [facility] Last Admin: 03/04/18 22:19 Dose: 80 unit Insulin Human Lispro (Humalog*) 0 units SUBCUT AC PRN; Protocol PRN Reason: BLOOD GLUCOSE Losartan Potassium (Cozaar Tab*) 100 mg PO DAILY [facility] Last Admin: 03/05/18 09:41 Dose: 100 mg Methadone HCl (Dolophine Tab*) 5 mg PO Q8HR PRN PRN Reason: PAIN Last Admin: 03/04/18 18:46 Dose: 5 mg Morphine Sulfate (Morphine Vial*) 1 mg IV Q12HR PRN PRN Reason: PAIN Nicotine (Nicotine Patch 14 Mg/24 Hr*) 1 patch TRANSDERM DAILY [facility] Last Admin: 03/05/18 09:42 Dose: 1 patch Ondansetron HCl (Zofran Inj*) 4 mg IV Q6H PRN PRN Reason: NAUSEA Last Admin: 03/04/18 18:46 Dose: 4 mg Pantoprazole Sodium (Protonix Tab *) 80 mg PO QPM [facility] Pharmacy Profile Note (Nicotine Patch Removal Note*) 1 note PATCH OFF 2100 [facility] Promethazine HCl (Phenergan Tab*) 25 mg PO Q8H PRN PRN Reason: NAUSEA Warfarin Sodium (Coumadin Tab(*)) 7.5 mg PO BEDTIME [facility]; Protocol Last Admin: 03/04/18 22:19 Dose: 7.5 mg Vital Signs - 8 hr 03/05/18 03/05/18 03/05/18 02:25 03:26 07:46 Temperature 97.4 F 98.2 F Pulse Rate 104 105 Respiratory 20 16 Rate Blood Pressure 150/55 167/85 (mmHg) O2 Sat by Pulse 92 91 100 Oximetry 03/05/18 03/05/18 09:01 09:39 Temperature Pulse Rate Respiratory 14 16 Rate Blood Pressure (mmHg) O2 Sat by Pulse Oximetry Oxygen Devices in Use Now: Nasal Cannula Appearance: Obese female lying in an ER stretcher in no distress. Respiratory: Clear to Auscultation Cardiovascular: NL Sounds; No Murmurs; No JVD, RRR Abdominal: NL Sounds; No Tenderness; No Distention Skin: - - At the right buttock region about 4 cm X 4cm area of induration, warmth, tenderness with fluctuance Result Diagrams: 03/05/18 06:06 03/05/18 06:06 Microbiology and Other Data: Microbiology 03/04/18 16:25 Influenza Types A,B Antigen - Final Nasopharyngeal Specimen received for Influenza A/B Molecular testing Assess/Plan/Problems-Billing Assessment: - Patient Problems (1) Abscess of buttock, right Current Visit: Yes Status: Acute Code(s): L02.31 - CUTANEOUS ABSCESS OF BUTTOCK SNOMED Code(s): 92872912 Comment: Will continue rocephin, add flagyl. consulted Dr. Salinas, surgery will get CT pelvis for further assessment. (2) COPD (chronic obstructive pulmonary disease) Current Visit: No Status: Acute Code(s): J44.9 - CHRONIC OBSTRUCTIVE PULMONARY DISEASE, UNSPECIFIED SNOMED Code(s): 71513199 Comment: Stable continue home regimen (3) DVT prophylaxis Current Visit: No Status: Acute Onset Date: 06/27/14 Code(s): GPD0167 - SNOMED Code(s): 336913625 Comment: Therapeutic INR (4) IDDM (insulin dependent diabetes mellitus) Current Visit: No Status: Acute Code(s): E11.9 - TYPE 2 DIABETES MELLITUS WITHOUT COMPLICATIONS; Z79.4 - DETENTION (CURRENT) USE OF INSULIN SNOMED Code( s): 07526166 Comment: Poorly controlled, resumed home regimen, will monitor fingersticks and adjust if needed. (5) ESRD (end stage renal disease) Current Visit: No Status: Chronic Code(s): N18.6 - END STAGE RENAL DISEASE SNOMED Code(s): 05115261 Comment: On peritoneal dialysis, Dr. Marrufo (nephro) consulted. (6) Hx of coronary artery disease Current Visit: No Status: Chronic Priority: Medium Code(s): Z86.79 - PERSONAL HISTORY OF OTHER DISEASES OF THE CIRCULATORY SYSTEM SNOMED Code(s): 788055861 Comment: Continue aspirin (7) Essential hypertension Current Visit: Yes Status: Acute Code(s): I10 - ESSENTIAL (PRIMARY) HYPERTENSION SNOMED Code(s): 07855317 Comment: uncontrolled. continue losartan 100mg from home added coreg 3.125mg BID (8) PAD (peripheral artery disease) Current Visit: No Status: Acute Code(s): I73.9 - PERIPHERAL VASCULAR DISEASE , UNSPECIFIED SNOMED Code(s): 924052365 Comment: Continue coumadin. Status and Disposition: Home when medically stable.
[2018-03-05] MEDS ORDERED: metroNIDAZOLE IV 500 MG/100ML* 500 MG/100 ML BAG IVPB SCH (10:30)
[2018-03-05] MEDS ORDERED: Insulin LISPRO* 1 UNITS UNIT SUBCUT SCH (11:30)
[2018-03-05] MEDS: Calcitriol CAP* 0.25 MCG PO SCH ×2 (12:42→15:43)
--- NOTE | 2018-03-05 15:13 | PN ---
Progress Note - Progress Note Date of Service: 03/05/18 Note: Brief Surgery Note: I&D performed of Right buttock abscess after review of hx, PE, CT scan of the pelvis, verbal explanation, written consent and time-out. Instructions reviewed w/ patient. C&S sent. Office f/u Saturday. Antibiotics per hospitalist .
[2018-03-05 15:46] VITALS: BP 169/83
[2018-03-05] MEDS ORDERED: Pantoprazole TAB * 40 MG TAB PO SCH (18:00)
[2018-03-05] MEDS ORDERED: Carvedilol TAB* 3.125 MG PO SCH (21:00)
[2018-03-05] MEDS ORDERED: Nicotine Patch Removal NOTE PATCH OFF SCH (21:00)
--- NOTE | 2018-03-05 21:34 | CONS ---
CC: Dr. Aishwarya Solis; Dr. Luis Marrufo * CONSULT AND PROCEDURE NOTE: DATE OF CONSULT: 03/05/18 ATTENDING SURGEON: Dr. Tommie Salinas CHIEF COMPLAINT: Right buttock abscess. HISTORY OF PRESENT ILLNESS: This is a 37-year-old female with multiple medical problems including end-stage renal disease, on peritoneal dialysis, type 2 diabetes, obesity, coronary artery disease, GERD, peripheral arterial disease, chronic hypoxic respiratory failure, anxiety, depression, asthma, and tobacco abuse, who was admitted to [facility] on 03/04/18, for variety of complaints including lower extremity pain, abdominal pain, nausea, vomiting, chest pain without shortness of breath (see full admission history and physical). Beginning about 1-1/2 to 2 weeks the patient had noticed a small area of tenderness in the right buttock, which gradually progressed to a larger area of tenderness and swelling. She was seen at [facility] 3 days ago, at which time the provider attempted to express pus. Since that time, the patient states that the area has been more tender and more swollen, and without any spontaneous drainage though, patient states she was able to express some pus from the wound this morning. Her vital signs show normal temperature, blood pressure moderately elevated; pulse rate also somewhat elevated, ranging between 102 and 112. Exam is limited to the aforementioned area of the right buttock. There is a palpable and visible area of tenderness, induration, and mild erythema with a central area of fluctuance consistent with a limited subcutaneous right buttock abscess. The CT scan was reviewed by myself, showing a subcutaneous collection measuring up to 1.8 cm in dimension (the subsequent report of the CT was reviewed describing a 1.9 x 1.9 x 1.3-cm abscess collection at the right margin of the cleft, though this is well away from both the kaylie cleft and the anus. There is no tenderness at the anus. 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 This will be clarified with Dr. Salinas). Of note, the patient is fully anticoagulated on warfarin with an INR of 2.47. After verbal explanation to the patient and recommendation of incision and drainage, consent was obtained and time-out performed at the bedside with the nurse. The area of the right buttock was infiltrated with 1% plain lidocaine (a total of 15 cc) and then a cruciate incision was made in the area of fluctuance with returning of copious thin cloudy fluid. This was submitted for culture and sensitivity. The wound was explored for loculations, irrigated with normal saline and then a short wick of 1/2-inch iodoform packing was placed. The patient tolerated the procedure well, direct pressure was maintained along with a pressure dressing subsequently to limit bleeding or oozing. Instructions were given to the patient, and it sounded as though she will be discharged by the hospitalist later today. She has a followup appointment with our office on Saturday, . I will defer antibiotic treatment to the hospitalist. ADDENDUM: I spoke with Dr. Salinas about the case, and he reviewed the CT and report. He advised that there would be no change in treatment plan (I&D as performed with close followup) and the patient was contacted by phone 03/06/18 to explain these findings and recommendation. She expressed understanding. GIOVANNI PRAKASH [id number]/[facility] #: [id number] VIRI
--- NOTE | 2018-03-05 21:52 | DS ---
CC: Dr. Aishwarya Solis; Petty Arriaza NP * DISCHARGE SUMMARY: DATE OF ADMISSION: 03/04/18 DATE OF DISCHARGE: 03/05/18 ATTENDING PHYSICIAN: Dr. Caterina Trujillo. PRIMARY CARE PROVIDER: Dr. Aishwarya Solis. REASON FOR ADMISSION: Abdominal pain, headaches, fever, nausea, vomiting. HOSPITAL COURSE: This is a 37-year-old female with a past medical history of end- stage renal disease, on peritoneal dialysis; GERD; coronary artery disease ; melanoma; type 2 diabetes; peripheral artery disease, with stent; chronic hypoxic respiratory failure, on home O2 at 2 L, who was brought into the emergency room with numerous complaints including abdominal pain, headaches, fevers, nausea, and vomiting. On admission, the patient was found to have a slightly elevated troponin. Additionally, she was found to have chest x-ray, which showed mild pulmonary edema. The patient was given 1 dose of IV Lasix and her home peritoneal dialysis was resumed the following day with consultation from Dr. Marrufo, master barber. Regarding the elevated troponin, we attributed that to chronic kidney disease. Second and third troponin did not show any significant changes. EKG did not have any acute changes as compared to the prior EKG. We, however , did find an abscess at the right buttock region. Subsequently a CAT scan of the pelvis was done as well as a surgical consultation was obtained. The CAT scan of the pelvis showed small right perianal fistula and abscess collection. The patient underwent I and D at bedside. During the day of the admission, the patient was started on antibiotic, Rocephin, and coverage was broadened to continue Rocephin and Flagyl. The patient's home medications were continued as well. The patient wanted to leave against medical advice. We explained to the patient the risks of leaving against medical advice which included start of infection, having blood infection/sepsis/endocarditis, and ultimately . The patient accepted and understood the risk that she was taking of leaving against medical advice. CONDITION OF THE PATIENT ON DISCHARGE: Fair and stable. DISCHARGE MEDICATIONS: Include: 1. Omeprazole 40 mg at bedtime. 2. Albuterol 2 mg inhaler every 6 hours as needed. 3. Methadone 5 mg every 8 hours as needed. 4. Gabapentin 200 mg 3 times a day. 5. Insulin sliding scale, Aspart. 6. Promethazine 25 mg every 8 hours as needed. 7. Albuterol inhaler nebulizer treatment as needed. 8. Glargine/Lantus 80 units subcu at bedtime. 9. Coumadin 2.5 mg tablet 7.5 to 10 mg tablets at bedtime per discussion with primary care doctor. 10. Aspirin 81 mg daily. 11. Losartan 100 mg daily. 12. Sertraline 25 mg daily. 13. Bethanechol 25 mg 4 times a day. 14. Calcitriol 0.25 mcg 3 times a day. 15. Coumadin 7.5 mg at bedtime. 16. Doxycycline 100 mg twice a day, 10 tablets, the prescription was sent to the pharmacy for her. That was only new medication. DISCHARGE INSTRUCTIONS: To follow a diabetic diet. Regarding the right buttock wound, the patient may shower or use sponge bath or usual. Change outer dressing as needed except some bloody and/or cloudy drainage, but should not have anything excessive. Should there be anything excessive, the patient to return to emergency room. To resume activity as tolerated, to return to the emergency room for fevers, chills, worsening redness, pain at the right buttock region or if any new symptoms occur. The patient to follow up with PCP in 1 week and to check INR on Saturday. LEFT AGAINST MEDICAL ADVICE DISCHARGE DIAGNOSIS: Right buttock abscess/incision and drainage of the right buttock abscess. ADDITIONAL DIAGNOSES: Include: 1. Type 2 diabetes. 2. Chronic respiratory failure, on home oxygen at 2 L. 3. Coronary artery disease. 4. Peripheral vascular disease. [id number]/[facility] #: [id number] MTDD
== END 2018-03-05 16:15 | disposition left against medical advice (07) | DRG 951 ==
LOC: ED 15:09 → MEDTELE 17:58 → OBSVTOIN 03-05 10:12
PROVIDERS: ADMIT Internal Medicine; ATTEND Internal Medicine
PROC: 0H98XZZ Drainage of Buttock Skin, External Approach (ICD-10-PCS; principal; 2018-03-05)
PROC: 0J990ZZ Drainage of Buttock Subcutaneous Tissue and Fascia, Open Approach (ICD-10-PCS; 2018-03-05)
DX: K61.0 Anal abscess (principal); N18.6 End stage renal disease; J81.1 Chronic pulmonary edema; I12.0 Hypertensive chronic kidney disease with stage 5 chronic kidney disease or end stage renal disease; I47.1 Supraventricular tachycardia; J96.11 Chronic respiratory failure with hypoxia; E11.43 Type 2 diabetes mellitus with diabetic autonomic (poly)neuropathy; E11.9 Type 2 diabetes mellitus without complications; I25.10 Atherosclerotic heart disease of native coronary artery without angina pectoris; Z86.718 Personal history of other venous thrombosis and embolism; E78.00 Pure hypercholesterolemia, unspecified; J44.9 Chronic obstructive pulmonary disease, unspecified; G47.30 Sleep apnea, unspecified; K21.9 Gastro-esophageal reflux disease without esophagitis; K31.84 Gastroparesis; E11.22 Type 2 diabetes mellitus with diabetic chronic kidney disease; M15.9 Polyosteoarthritis, unspecified; M51.26 Other intervertebral disc displacement, lumbar region; Z96.89 Presence of other specified functional implants; H54.8 Legal blindness, as defined in USA; E11.40 Type 2 diabetes mellitus with diabetic neuropathy, unspecified; F41.9 Anxiety disorder, unspecified; F31.9 Bipolar disorder, unspecified; Z53.21 Procedure and treatment not carried out due to patient leaving prior to being seen by health care provider; F17.210 Nicotine dependence, cigarettes, uncomplicated; D63.1 Anemia in chronic kidney disease; E66.9 Obesity, unspecified; E11.51 Type 2 diabetes mellitus with diabetic peripheral angiopathy without gangrene; Z95.820 Peripheral vascular angioplasty status with implants and grafts; Z80.1 Family history of malignant neoplasm of trachea, bronchus and lung; Z80.41 Family history of malignant neoplasm of ovary; Z68.34 Body mass index [BMI] 34.0-34.9, adult; I25.2 Old myocardial infarction; Z99.2 Dependence on renal dialysis; Z86.74 Personal history of sudden cardiac arrest; Z87.01 Personal history of pneumonia (recurrent); Z87.442 Personal history of urinary calculi; Z85.44 Personal history of malignant neoplasm of other female genital organs; Z88.1 Allergy status to other antibiotic agents; Z88.0 Allergy status to penicillin; Z88.2 Allergy status to sulfonamides; Z88.8 Allergy status to other drugs, medicaments and biological substances; Z91.048 Other nonmedicinal substance allergy status; Z79.4 Long term (current) use of insulin; Z99.81 Dependence on supplemental oxygen; Z95.5 Presence of coronary angioplasty implant and graft; Z89.411 Acquired absence of right great toe; Z89.421 Acquired absence of other right toe(s); Z86.14 Personal history of Methicillin resistant Staphylococcus aureus infection; Z82.49 Family history of ischemic heart disease and other diseases of the circulatory system; Z81.8 Family history of other mental and behavioral disorders; Z79.82 Long term (current) use of aspirin; Z79.01 Long term (current) use of anticoagulants
CPT/HCPCS: 36415; 71046; 72192; 80048; 80053; 83605; 84484; 85025; 85610; 86140; 87040; 87070; 87077; 87205; 87640; 87641; 93005; 94640; 99284; 99406; A9270-GY; G0378; J0696; J1940; J2270; J2405; J3490

== ENCOUNTER 2018-03-17 11:42 | Emergency (ER) | payer OTHER ==
--- NOTE | 2018-03-17 12:08 | ED ---
Influenza-Like Illness - HPI Summary HPI Summary: A 37 y/o F with multiple co-morbidities presents to ED with fever (102 F) onset 3 days ago. Associated sx: severe chills and diaphoresis onset five days ago, tremors, unproductive cough, decreased appetite, vomiting 4x since last night, constipation (her last BM 3 days ago), difficulty ambulating worse than baseline where her legs "just give out." Pt uses a walker. She has chest congestion and CP which she feels is caused from her lungs, not her heart. She saw her PCP 3 days ago who changed her ABX to Augmentin, gave her a new inhaler with steroids, and thought she might be septic. Pt is on home dialysis. Peritoneal catheter fluids have been clear. Her sugars are in the 300s which is her baseline. Aggravating: deep breaths, supine position. 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 She did get her flu shot. No ETOH. Smoker. - History of Current Complaint Chief Complaint: EDFluSymptoms Time Seen by Provider: 03/17/18 11:52 Hx Obtained From: Patient Onset/Duration: Lasting Days, Still Present Severity: Moderate Associated Signs & Symptoms: Fever, Cough, Vomiting - Allergy/Home Medications Allergies/Adverse Reactions: Allergies Allergy/AdvReac Type Severity Reaction Status Date / Time Adhesive Tape [Plastic Tape] Allergy Mild Blisters Verified 03/17/18 11:52 erythromycin base Allergy See Comment Verified 03/17/18 11:52 heparin Allergy See Comment Verified 03/17/18 11:52 metoclopramide [From Reglan] Allergy Hives Verified 03/17/18 11:52 metronidazole [From Flagyl] Allergy Nausea And Verified 03/17/18 11:52 Vomiting niacin Allergy Rash Verified 03/17/18 11:52 ropinirole [From Requip] Allergy Hives Verified 03/17/18 11:52 Sulfa (Sulfonamide Allergy Vomiting Verified 03/17/18 11:52 Antibiotics) Home Medications: Home Medications Amoxicillin/Clavulanate TAB* [Augmentin TAB 875*] 875 mg PO BID 03/17/18 [ History Confirmed 03/17/18] Aspirin EC TAB* [Ecotrin EC Low Dose 81 MG*] 81 mg PO DAILY 03/17/18 [History Confirmed 03/17/18] Budesonide/Formote 160/4.5(NF) [Symbicort 160/4.5 (NF)] 2 puff INH BID 03/17/18 [History Confirmed 03/17/18] Cholecalciferol TAB* [Vitamin D TAB*] 1,000 unit PO DAILY 03/17/18 [History Confirmed 03/17/18] Insulin LISPRO* [HumaLOG*] 10 units SUBCUT DIRECTED 03/17/18 [History Confirmed 03/17/18] Methadone TAB* [Dolophine TAB*] 5 mg PO Q8HR PRN 03/17/18 [History Confirmed ] [place]-3 Fatty Acids (Nf) [Fish Oil (NF)] 4,000 mg PO DAILY 03/17/18 [History Confirmed 03/17/18] Sertraline* [Zoloft*] 25 mg PO DAILY 03/17/18 [History Confirmed 03/17/18] PMH/Surg Hx/FS Hx/Imm Hx Previously Healthy: No Endocrine/Hematology History: Reports: Hx Anticoagulant Therapy - Aspirin., Hx Blood Transfusions, Hx Diabetes - uses insulin, Hx Thyroid Disease - nodule, Hx Anemia - hx of - reports had tranfusion in 2013 after mi Cardiovascular History: Reports: Hx Angina, Hx Cardiac Arrest - in 2013 with CPR, Hx Cardiomegaly, Hx Coronary Artery Disease, Hx Deep Vein Thrombosis, Hx Hypercholesterolemia, Hx Hypertension, Hx Myocardial Infarction, Other Cardiovascular Problems/Disorders Denies: Hx Congestive Heart Failure, Hx Pacemaker/ICD, Hx Valvular Heart Disease Respiratory History: Reports: Hx Asthma, Hx Chronic Obstructive Pulmonary Disease (COPD) - smoker, Hx Pneumonia, Hx Sleep Apnea, Other Respiratory Problems/Disorders - acute respipatory failure with hypoxia - jan 2016 Denies: Hx Lung Cancer, Hx Pulmonary Embolism - pt says no, although documented in char GI History: Reports: Hx Gall Bladder Disease, Hx Gastroesophageal Reflux Disease , Other GI Disorders - GASTROPARESIS - TAKING OMEPRAZOLE, reglan and zofran Denies: Hx Gastrointestinal Bleed, Hx Ulcer, Hx Urosepsis History: Reports: Hx Acute Renal Failure, Hx Chronic Renal Failure - ESRD on PD, Hx Dialysis - PERITONEAL, Hx Kidney Stones, Hx Renal Disease - ESRD on home peritoneal dialysis , Other Problems/Disorders Musculoskeletal History: Reports: Hx Arthritis - back, hips, Hx Back Problems - Sciatica and Herniated L3 disk, Other Musculoskeletal History - partial amputation of toes/foot Sensory History: Reports: Hx Eye Prosthesis - left, 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 no vision in left, Hx Vision Problem Denies: Hx Contacts or Glasses Neurological History: Reports: Other Neuro Impairments/Disorders - neuropathy Denies: Hx Transient Ischemic Attacks (TIA) Psychiatric History: Reports: Hx Anxiety, Hx Depression, Hx Bipolar Disorder Denies: Hx Eating Disorder, Hx Panic Disorder, Hx Schizophrenia, Hx of Violent Episodes Against Others - Cancer History Cancer Type, 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 MELANOMA REMOVED FROM [facility] 2012 (PROCEDURE DONE 4X);. CARDIAC CATH 2013 - NO STENTS;. LEFT WRIST FISTULA PLACEMENT ([facility]) 2013;. HEMODIALYSIS CATH RIGHT CHEST WALL 2013;. PERITONEAL DIALYSIS CATH 03/2014;. CHEST WALL CATH REMOVAL 08/2015 [facility] [place];. RIGHT GREAT TOE AMPUTATION, [facility] [place] 05/2015;. PLACEMENT RIGHT JUGULAR TESIO HEMODIALYSIS CATHETER [facility] [place] 10/22/2015;. REMOVAL OF JUGULAR CATH - OCT 2015. CARDIAC CATH - stentsx2 right leg. PARTIAL AMPUTATION RIGHT TOES 06/2016. RIGHT TOES ALL REMOVED Hx Anesthesia Reactions: No - Immunization History Date of Tetanus Vaccine: utd Date of Influenza Vaccine: 11/2016 Infectious Disease History: No Infectious Disease History: Reports: Hx of Known/Suspected MRSA - MRSA R 1st toe , History Other Infectious Disease - GANGRENE Denies: Hx Clostridium Difficile, Hx Hepatitis, Hx Human Immunodeficiency Virus (HIV), Hx Shingles, Hx Tuberculosis, Traveled Outside the [place] in Last 30 Days - Family History Known Family History: Positive: Cardiac Disease - father [place] at 42 y/o, Hypertension, Other - Positive for bipolar and depression. Completed suicide to sister. - Social History Occupation: Unemployed - OTHER Lives: Alone Alcohol Use: None Hx Substance Use: No Substance Use Type: Reports: None Substance Use Comment - Amount & Last Used: methadone Hx Tobacco Use: Yes Smoking Status (MU): Heavy Every Day Tobacco Smoker Type: Cigarettes Amount Used/How Often: 1 PPD Length of Time of Smoking/Using Tobacco: 20 YEARS Have You Smoked in the Last Year: Yes Review of Systems Positive: Fever, Chills, Skin Diaphoresis, Other - pos: decreased appetite Positive: Chest Pain - and chest congestion Positive: Cough Positive: Vomiting, Other - pos: constipation. Negative: Diarrhea Neurological: Other - pos: difficulty ambulating, tremors All Other Systems Reviewed And Are Negative: Yes Physical Exam - Summary Physical Exam Summary: Appearance: Chronically ill appearing, no pain distress Skin: warm, dry, reflects adequate perfusion Head/face: normal Eyes: EOMI, HILLARY ENT: mucous membranes moist, no nasal congestion Neck: supple, non-tender Respiratory: Mild expiratory wheezes, breath sounds present Cardiovascular: Tachy, pulses symmetrical Abdomen: non-tender, soft Bowel Sounds: present Musculoskeletal: normal, strength/ROM intact Neuro: normal, sensory motor intact, A&Ox3 Triage Information Reviewed: Yes Vital Signs On Initial Exam: Initial Vitals Temp Pulse Resp BP Pulse Ox 97.5 F 108 16 177/93 100 03/17/18 11:48 03/17/18 11:48 03/17/18 11:48 03/17/18 11:48 03/17/18 11:48 Vital Signs Reviewed: Yes Diagnostics - Vital Signs Vital Signs Temp Pulse Resp BP Pulse Ox 03/17/18 11:48 97.5 F 108 16 177/93 100 - Laboratory Result Diagrams: 03/17/18 12:58 03/17/18 12:58 Lab Statement: Any lab studies that have been ordered have been reviewed, and results considered in the medical decision making process. - Radiology CXR Radiology Interpretation Completed By: Radiologist Summary of Radiographic Findings: IMPRESSION: No active cardiopulmonary disease is noted. Cardiomegaly is noted. ED provider has reviewed this report. Re-Evaluation - Re-Evaluation 1 Re-Evaluation Time: 14:03 Change: Improved Comment: Discussing results and plan to D/C. Pt voiced understanding. Flu Symptom Course/Dx - Course Course Of Treatment: Nurse's notes reviewed. Patient with a history of end- stage renal disease on peritoneal dialysis at home presents with flulike symptoms. No fever here and laboratories are fairly benign-appearing aside from her chronic anemia. There is no infiltrate on x-ray and she is negative for flu. She is treated with small volume IV fluids given her renal dysfunction with improvement. She was discharged in good condition and continues on outpatient antibiotics. She'll follow closely with her primary care physician. - Diagnoses Differential Diagnosis/HQI/PQRI: Positive: Bronchitis, Influenza, Pneumonia, Upper Respiratory Infection, Other - CHF Provider Diagnoses: Hypoglycemia, Viral syndrome, End stage renal disease on dialysis Discharge - Sign-Out/Discharge Documenting (check all that apply): Patient Departure - D/C - Discharge Plan Condition: Improved Disposition: HOME Patient Education Materials: Viral Syndrome (ED) Referrals: Aishwarya Solis MD [Primary Care Provider] - Additional Instructions: Continue antibiotic. Go to to your Coumadin clinic appointment later today. Return with fevers over 100.4, difficulty breathing, abdominal pain, worse, new symptoms or other concerns as discussed. Follow-up promptly with your family doctor. Call today for an appointment. - Billing Disposition and Condition Condition: IMPROVED Disposition: Home - Attestation Statements Document Initiated by Scribe: Yes Documenting Scribe: Martha Sevilla Provider For Whom Leslie is Documenting (Include Credential): Dr. Yamil Garcia MD Scribe Attestation: I, Martha Sevilla scribed for Dr. Yamil Garcia MD on 03/17/18 at 1635. Scribe Documentation Reviewed: Yes Provider Attestation: The documentation as recorded by the Martha sexton accurately reflects the service I personally performed and the decisions made by , Dr. Yamil Garcia MD Status of Scribe Document: Viewed
--- OUTSIDE RECORDS SUMMARY | 2018-03-17 12:08 | XMS REPORT | Continuity of Care Document ---
:1980 External Reference #:[id number] Author Name Alexandrea Moreno Care Team Providers Name Role Phone Aishwarya Solis MD Primary Care Physician Unavailable Payers Type Date Identification Numbers Payment Provider Subscriber Effective: Policy Number: [id number] Stone Perry 2013 Group Number: [id number] [address] PayID: [id number] [place] [address] Expires: 2017 Policy Number: [id number] Medicaid Misa Perry Group Name: 1 [address] PayID: [id number] [place] [address] Advance Directives Description No Information Available Problems Date Description Provider Status Onset: 08/04/2014 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 Active Onset: 03/05/2016 Disorder of lung Clarice Oseguera MD Active Onset: 03/05/2016 Lymphadenopathy Clarice Oseguera MD Active Onset: 03/05/2016 Disturbance in sleep behavior Clarice Oseguera MD Active Onset: 03/05/2016 Tobacco user Clarice Oseguera MD Active Onset: 03/05/2016 Morbid obesity Clarice Oseguera MD Active Family History Date Family Member(s) Problem(s) Comments General Crohn's Disease General Diabetes General Heart Disease Father Coronary Artery Disease (CAD) Mother Diabetes Mother Crohn's Disease Social History Type Date Description Comments Sex Unknown Occupation Disabled ETOH Use Denies alcohol use Recreational Drug Use Denies Drug Use Tobacco Use Start: Unknown Patient is a current smoker, smokes every day Tobacco Use Start: Unknown Heavy tobacco smoker (more than 10 cigarettes/day) Smoking Status Reviewed: 12/19/16 Heavy tobacco smoker (more than 10 cigarettes/day) Allergies, Adverse Reactions, Alerts Date Description Reaction Status Severity Comments 08/04/2014 Morphine does not work Active 08/04/2014 Codeine Nausea and Vomiting Active 08/04/2014 Augmentin Urticaria Active 03/29/2015 Tape Active 04/12/2015 Bactrim Active 06/28/2016 Heparin Active excessive clotting 08/08/2016 Flagyl Active stomach upset,vomiting, and abd pain. Medications Medication Date Status Form Strength Qnty SIG Indications Ordering Provider Gabapentin 03/04 Active Capsules 300mg 1 by mouth three times a day Zofran 03/04 Active Tablets 4mg 1 tab by mouth every 6 hours as needed nausea Albuterol 03/04 Active Nebulizer (2.5mg/3M 1 vial via Unknown L) 0.083% nebulizer 4 times daily as needed Novolog Mix 08/04 Active Supn (70-30)10 1unit sliding Derek Izquierdo 70/30 Prefilled /2014 0Unit/ML s scale Cristopher Simental M.D. Omeprazole Active Capsules 20mg 1 by mouth Unknown /0000 DR every day Lantus Solostar Active Solution 100Unit/M 80 u hs Unknown / Pen-Inject L Amlodipine Active Tablets 10mg 1 by mouth Unknown Besylate / every day Calcitriol Active Capsules 0.25mcg 1 by mouth Unknown /0000 every day Bisoprolol 00 Active Tablets 10mg 1 by mouth Unknown Fumarate /0000 every day Atorvastatin Active Tablets 80mg 1 by mouth Unknown Calcium / every day Losartan Active Tablets 100mg 1 by mouth Unknown Potassium / every day Aspir-Low Active Tablets DR 81mg 1 by mouth Unknown /0000 every day Coumadin Active Tablets 2.5 4 po daily Unknown /0000 2 days a week and 3 tabs po on thee other days Doxycycline Active Tablets 100mg Take One Unknown Hyclate /0000 Tablet By Mouth Twice A Day Methadone HCL Active Tablets 5mg Take One To Unknown /0000 Two Tablets By Mouth Every 6 Hours as Needed For Pain Max Levofloxacin 11/09 Hx Tablets 500mg 14tab 1 by mouth I73.9 s every day Billy Garcia M.D. 12/18 Hydromorphone 09/21 Hx Tablets 2mg 60tab take Sebastien s one-two Jose, - every four M.D. 09/25 hours needed for breakthough pain Dilaudid 08/08 Hx Tablets 2mg 30tab 1 tabs by M86.171 s mouth every Jose, - 6 hours as M.DChris 08/28 needed pain Levofloxacin 07/18 Hx Tablets 500mg 11tab 1 tab by s mouth q 48 Jose, - hrs M.D. 08/28 Metronidazole 07/18 Hx Tablets 500mg 63tab 1 tab po s tid x21 Jose, - days M.D. 08/07 Hydromorphone 07/18 Hx Tablets 2mg 60tab 1 tab po s q6h prn Jose, - pain M.D. 08/07 Cyclobenzaprine 03/04 Hx Tablets 10mg one by Unknown mouth three times a day as needed spasm Fish Oil 03/04 Hx Capsules 1000mg 1 by mouth Unknown Concentrate twice a day - 12/18 Percocet 12/11 Hx Tablets 5-325mg 15tab 1-2 tabs by Freda Kerr s mouth every MD Osmar - 4 hours as 08/07 needed for pain Cephalexin 11/27 Hx Tablets 250mg 20tab 1 Tablet L03.313 Tommie P. /2015 s Every 6 HRS MD Brad, For 5 Days FACS Oxycodone HCL 06/12 Hx Tablets 5mg 30tab 1 tab by Gaye s mouth every Gregory, - 4-6hrs as GLUE MIXER 06/29 needed pain Bactrim DS 06/12 Hx Tablets 800-160mg 30tab 1 by mouth Sebastien s twice a day Billy Garcia M.D. 07/20 Bactrim DS 03/29 Hx Tablets 800-160mg 40tab 1 by mouth E10.621 Sebastien s twice a day Billy Garcia M.D. 04/12 Sertraline HCL 08/04 Hx Tablets 50mg 90tab 1 02/26 by Derek Izquierdo s mouth every Felicia angella Hussein Valacyclovir HCL 05/13 Hx Tablets 500mg 90tab Take 1 s Tablet Courtney, GLUE MIXER - Daily 08/04 Gabapentin Hx Capsules 300mg take 1 capsule by - mouth twice 08/04 Mupirocin Hx Ointment 2% - 08/04 Promethazine HCL Hx Syrup 6.25mg/5M prn L Torsemide Hx Tablets 20mg 1 by mouth Unknown / bid - 12/18 Ciprofloxacin Hx Tablets 500mg 1 by mouth Unknown twice a day Magnesium Hx Capsules 400mg 1 by mouth Unknown bid Clindamycin HCL Hx Capsules Unknown Eliquis Hx Tablets 5mg 1 by mouth Unknown / twice a day - 08/28 Bactrim DS Hx Tablets 800-160mg 1 by mouth Unknown /0000 twice a day - 08/28 Chantix Hx Tablets 0.5mg as directed - 12/18 Immunizations Description No Information Available Vital Signs Date Vital Result Comment 12/19/2016 2:58pm Heart Rate 96 /min BP Systolic Sitting 118 mmHg BP Diastolic Sitting 88 mmHg Respiratory Rate 20 /min Pain Level 0 11/09/2016 9:42am Heart Rate 96 /min BP Systolic 108 mmHg BP Diastolic 70 mmHg Body Temperature 96.9 F 09/26/2016 2:47pm Height 65 inches 5'5" Heart Rate 106 /min BP Systolic Sitting 104 mmHg BP Diastolic Sitting 68 mmHg Respiratory Rate 12 /min no respiratory distress Body Temperature 99.8 F Pain Level 5 O2 % BldC Oximetry 95 % 09/12/2016 11:51am Height 65 inches 5'5" Heart Rate 93 /min BP Systolic 110 mmHg BP Diastolic 88 mmHg Respiratory Rate 20 /min Pain Level 7 O2 % BldC Oximetry 90 % no difficulties breathing. 09/06/2016 9:22am Height 65 inches 5'5" Weight 202.00 lb Heart Rate 106 /min BP Systolic 160 mmHg BP Diastolic 100 mmHg Body Temperature 97.6 F BMI (Body Mass Index) 33.6 kg/m2 08/29/2016 3:09pm Height 65 inches 5'5" Weight 202.00 lb Heart Rate 68 /min BP Systolic Sitting 120 mmHg BP Diastolic Sitting 68 mmHg Respiratory Rate 18 /min Pain Level 2 BMI (Body Mass Index) 33.6 kg/m2 08/22/2016 3:43pm Height 65 inches 5'5" Weight 203.00 lb Heart Rate 78 /min BP Systolic 116 mmHg BP Diastolic 62 mmHg Respiratory Rate 16 /min Pain Level 1 BMI (Body Mass Index) 33.8 kg/m2 08/08/2016 3:15pm Height 65 inches 5'5" Heart Rate 116 /min has appt to see strategy execution consultant soon BP Systolic 102 mmHg BP Diastolic 82 mmHg Respiratory Rate 20 /min Pain Level 6 07/31/2016 10:54am Height 65 inches 5'5" Heart Rate 76 /min BP Systolic 134 mmHg BP Diastolic 82 mmHg Respiratory Rate 16 /min Body Temperature 97.9 F Pain Level 7 07/25/2016 1:58pm Height 65 inches 5'5" Weight 200.00 lb patient stated Heart Rate 120 /min BP Systolic Sitting 114 mmHg BP Diastolic Sitting 66 mmHg Respiratory Rate 16 /min Pain Level 5 BMI (Body Mass Index) 33.3 kg/m2 07/13/2016 2:05pm Height 65 inches 5'5" Weight 240.00 lb BP Systolic 114 mmHg BP Diastolic 80 mmHg Body Temperature 97.8 F BMI (Body Mass Index) 39.9 kg/m2 07/11/2016 2:31pm Height 65 inches 5'5" Weight 240.00 lb Heart Rate 110 /min BP Systolic Sitting 80 mmHg BP Diastolic Sitting 48 mmHg Respiratory Rate 19 /min Pain Level 3 O2 % BldC Oximetry 95 % Ra BMI (Body Mass Index) 39.9 kg/m2 06/28/2016 1:32pm Heart Rate 66 /min BP Systolic 108 mmHg BP Diastolic 68 mmHg Respiratory Rate 18 /min Body Temperature 97.4 F 03/05/2016 2:52pm Height 65 inches 5'5" Weight 240.00 lb Heart Rate 91 /min BP Systolic 132 mmHg BP Diastolic 88 mmHg Respiratory Rate 14 /min O2 % BldC Oximetry 96 % BMI (Body Mass Index) 39.9 kg/m2 01/05/2016 2:01pm Height 65 inches 5'5" Weight 240.00 lb Heart Rate 80 /min Respiratory Rate 18 /min Body Temperature 98.7 F BMI (Body Mass Index) 39.9 kg/m2 12/22/2015 12:27pm Heart Rate 84 /min Respiratory Rate 18 /min Body Temperature 98.9 F 12/12/2015 2:04pm Height 65 inches 5'5" Weight 240.00 lb Heart Rate 96 /min BP Systolic Sitting 128 mmHg BP Diastolic Sitting 78 mmHg Respiratory Rate 18 /min Body Temperature 97.9 F BMI (Body Mass Index) 39.9 kg/m2 11/28/2015 11:52am Heart Rate 90 /min BP Systolic 140 mmHg BP Diastolic 90 mmHg Respiratory Rate 16 /min Body Temperature 97.7 F 07/22/2015 11:10am Height 65 inches 5'5" Weight 245.00 lb BMI (Body Mass Index) 40.8 kg/m2 07/08/2015 3:09pm Height 65 inches 5'5" Weight 245.00 lb Heart Rate 83 /min BP Systolic 144 mmHg BP Diastolic 87 mmHg BMI (Body Mass Index) 40.8 kg/m2 07/01/2015 1:02pm Height 65 inches 5'5" Weight 245.00 lb Pain Level 0 BMI (Body Mass Index) 40.8 kg/m2 06/24/2015 4:19pm Height 65 inches 5'5" Weight 245.00 lb Body Temperature 97.9 F Pain Level 0 BMI (Body Mass Index) 40.8 kg/m2 05/27/2015 4:00pm Height 65 inches 5'5" Weight 245.00 lb Body Temperature 98.6 F Pain Level 0 BMI (Body Mass Index) 40.8 kg/m2 04/12/2015 11:03am Weight 245.00 lb 03/29/2015 9:38am Height 65 inches 5'5" Weight 245.00 lb Heart Rate 78 /min BP Systolic Sitting 130 mmHg BP Diastolic Sitting 90 mmHg BMI (Body Mass Index) 40.8 kg/m2 08/04/2014 9:24am Height 65 inches 5'5" Weight 234.00 lb Heart Rate 82 /min BP Systolic Sitting 140 mmHg BP Diastolic Sitting 90 mmHg Pain Level 5 back/reina leg BMI (Body Mass Index) 38.9 kg/m2 Results Test Date Facility Test Result H/L Range Note CBC Auto Diff 09/18/2016 [facility] White Blood 12.0 10^3/uL High 3.5-10.[address] [place] [address] [phone] Red Blood Count 4.44 10^6/uL N 4.0-5.4 Hemoglobin 13.3 g/dL N 12.0-16.0 Hematocrit 41 % N 35-47 Mean Corpuscular Volume 92 fL N 80-97 Mean Corpuscular Hemoglobin 30 pg N 27-31 Mean Corpuscular HGB Conc 32 g/dL N 31-36 Red Cell Distribution Width 17 % High 10.5-15 Platelet Count 267 10^3/uL N 150-450 Mean Platelet Volume 9 um3 N 7.4-10.4 Abs Neutrophils 9.7 10^3/uL High 1.5-7.7 Abs Lymphocytes 1.2 10^3/uL N 1.0-4.8 Abs Monocytes 0.6 10^3/uL N 0-0.8 Abs Eosinophils 0.4 10^3/uL N 0-0.6 Abs Basophils 0.1 10^3/uL N 0-0.2 Abs Nucleated RBC 0 10^3/uL N Granulocyte % 80.4 % N 38-83 Lymphocyte % 10.0 % Low 25-47 Monocyte % 5.3 % N 1-9 Eosinophil % 3.1 % N 0-6 Basophil % 1.2 % N 0-2 Nucleated Red Blood Cells % 0 N Inr/Protime 09/18/2016 [facility] Inr 0.90 N 0.89-1.[address] [place] [address] [phone] Laboratory test 09/18/2016 [facility] Partial 30.6 N 26.0- 36.[address] [place] [address] PTT [phone] Comp Metabolic 09/18/2016 [facility] Sodium 128 mmol/L Low 133 -[address] [place] [address] [phone] Potassium 5.1 mmol/L High 3.5-5.0 Chloride 97 mmol/L Low 101-111 Co2 Carbon Dioxide 22 mmol/L N 22-32 Anion Gap 9 mmol/L N 2-11 Glucose 432 mg/dL High 70-100 Blood Urea Nitrogen 42 mg/dL High 6-24 Creatinine 4.69 mg/dL High 0.51-0.95 BUN/Creatinine Ratio 9.0 N 8-20 Calcium 8.8 mg/dL N 8.6-10.3 Total Protein 6.4 g/dL N 6.4-8.9 Albumin 3.2 g/dL N 3.2-5.2 Globulin 3.2 g/dL N 2-4 Albumin/Globulin Ratio 1.0 N 1-3 Total Bilirubin 0.40 mg/dL N 0.2-1.0 Alkaline Phosphatase 102 U/L N 34-104 Alt 9 U/L N 7-52 Ast 9 U/L Low 13-39 Egfr Non- 10.5 N >60 Egfr 13.5 N >60 1 Laboratory test 09/18/2016 [facility] C Reactive 6.19 mg/L High < 5.00 [address] [place] [address] [phone] Lactic Acid 1.5 mmol/L N 0.5-2.0 3 Basic Metabolic Panel 12/07/2015 [facility] Sodium 136 mmol/L N 133-[address] [place] [address] [phone] Potassium 4.7 mmol/L N 3.5-5.0 Chloride 105 mmol/L N 101-111 Co2 Carbon Dioxide 25 mmol/L N 22-32 Anion Gap 6 mmol/L N 2-11 Glucose 231 mg/dL High 70-100 Blood Urea Nitrogen 36 mg/dL High 6-24 Creatinine 3.87 mg/dL High 0.51-0.95 BUN/Creatinine Ratio 9.3 N 8-20 Calcium 9.0 mg/dL N 8.6-10.3 Egfr Non- 13.2 N >60 Egfr 16.9 N >60 4 Laboratory test 12/07/2015 [facility] Point of Care 245 mg/dL High 74-106 [address] [place] [address] [phone] Laboratory test 12/07/2015 [facility] Point of Care 178 mg/dL High 74-106 [address] [place] [address] [phone] Laboratory test 12/07/2015 [facility] Point of Care 190 mg/dL High 74-106 [address] [place] [address] [phone] Laboratory test 11/30/2015 [facility] Point of Care 220 mg/dL High 74-106 [address] [address] [phone] Laboratory test 11/30/2015 [facility] Potassium 5.9 High 3.5- 5.0 9, [address] mmol/[place] [address] [phone] HCG 0.88 mIU/mL N 11 Wound 06/13/2015 [facility] Wound/Misc SEE RESULT 12 Culture/Sensi [address] [place] [address] Stain [phone] Laboratory test 06/13/2015 [facility] Anaerobic SEE RESULT [address] [place] [address] [phone] Laboratory test 06/13/2015 [facility] Surgical SEE RESULT [address] [place] [address] [phone] Laboratory test 06/13/2015 [facility] Point of Care 280 mg/dL High 74-1 [address] Glucose 06 [place] [address] [phone] Laboratory test 06/13/2015 [facility] HCG 0.66 N [address] mIU/[place] [address] [phone] Laboratory test 06/13/2015 [facility] Point of Care 242 mg/dL High 74-1 [address] Glucose 06 [place] [address] [phone] 1 Because ethnic data is not always readily available, this report includes an eGFR for both -Americans and non- Americans. The National Kidney Disease Education Program (NKDEP) does not endorse the use of the MDRD equation for patients that are not between the ages of 18 and 70, are , have extremes of body size, muscle mass, or nutritional status, or are non- or non-. According to the National Kidney Foundation, irrespective of diagnosis, the stage of the disease is based on the level of kidney function: Stage Description GFR(mL/min/1.73 m(2)) 1 Kidney damage with normal or decreased GFR 90 2 Kidney damage with mild decrease in GFR 60-89 3 Moderate decrease in GFR 30-59 4 Severe decrease in GFR 15-29 5 Kidney failure <15 (or dialysis) 2 Acute inflammation: >10.00 3 [facility] Severe Sepsis and Septic Shock Management Bundle Measure requires all lactic acids initially measuring >2.0 mmol/L be repeated. 4 Because ethnic data is not always readily available, this report includes an eGFR for both -Americans and non- Americans. The National Kidney Disease Education Program (NKDEP) does not endorse the use of the MDRD equation for patients that are not between the ages of 18 and 70, are , have extremes of body size, muscle mass, or nutritional status, or are non- or non-. According to the National Kidney Foundation, irrespective of diagnosis, the stage of the disease is based on the level of kidney function: Stage Description GFR(mL/min/1.73 m(2)) 1 Kidney damage with normal or decreased GFR 90 2 Kidney damage with mild decrease in GFR 60-89 3 Moderate decrease in GFR 30-59 4 Severe decrease in GFR 15-29 5 Kidney failure <15 (or dialysis) 5 Certified Pharmacy Technician: [id number] AMY MCGUIRE 6 Certified Pharmacy Technician: [id number] SKYLA LYNN 7 Certified Pharmacy Technician: [id number] JAROD ANTONIO 8 Certified Pharmacy Technician: [id number] Danyel Huizar 9 Comment: on arrival preop 10 Comment: on arrival preop 11 <5.0 Negative 5.0 - 25.0 Indeterminate (Repeat testing recommended after 72 hours) >25.0 Positive Perimenopausal women can display HCG levels of up to 20 mIU/mL 12 SEE RESULT BELOW Name: MARGAUX PERRY : [address]: Sebastien Garcia MD Acct: [id number] Unit: [id number] AGE: 34 Location: OR Re06/13/15 SEX: F Status: REG SDC SPEC: [id number] KARL: 06/13/15-[address]: Sebastien Garcia MD REQ: [id number] RECD: 06/13/15 STATUS: RES OTHR DR: Non Staff,Doctor Luis Marrufo MD _ SOURCE: WOUND SPDESC: ORDERED: Anaerobic Cult, Culture Stain Procedure Result Reported Site Anaerobic Culture PENDING Wound/Misc Gram Stain Final 06/13/15- 1350 ML No Neutrophils Observed No Organisms Seen Wound/Misc Culture PENDING * ML - MAIN LAB (PSC1) . END OF REPORT * ML=Testing performed at Main Lab DEPARTMENT OF PATHOLOGY, [address] [place] [address] Byron Morel M.D. Director [facility] # [id number] 13 SEE RESULT BELOW Name: MARGAUX PERRY : [address]: Sebastien Garcia MD Acct: [id number] Unit: [id number] AGE: 34 Location: OR Re06/13/15 SEX: F Status: REG SDC SPEC: [id number] KARL: 06/13/15-[address] [facility] [address]: Sebastien Garcia MD REQ: [id number] RECD: 06/13/15-1220 STATUS: CARRILLO MEEKS DR: Non Staff,Doctor Luis Marrufo MD _ SOURCE: WOUND SPDESC: ORDERED: Anaerobic Cult, Culture Stain Procedure Result Reported Site Anaerobic Culture Final 06/17/15- 24 ML No Growth Day 4 Wound/Misc Gram Stain Final 06/13/15- 1350 ML No Neutrophils Observed No Organisms Seen Wound/Misc Culture Final 06/17/15- 24 ML No Growth Day 4 * ML - MAIN LAB (PSC1) . END OF REPORT * ML=Testing performed at Main Lab DEPARTMENT OF PATHOLOGY, [address] [place] [address] Byron Morel M.D. Director [facility] # [id number] 14 SEE RESULT BELOW Name: MARGAUX PERRY : [address]: Sebastien Garcia MD Acct: [id number] Unit: [id number] AGE: 34 Location: OR Re06/13/15 SEX: F Status: REG SDC SPEC: [id number] KARL: 06/13/15-[address] [facility] [address]: Sebastien Garcia MD REQ: [id number] RECD: 06/13/15 STATUS: SOUT _ ORDERED: Decal, LEVEL IV FINAL DIAGNOSIS Right great toe, amputation: -- Acral skin and subcutaneous tissue with chronic ischemic changes and focal ulceration. -- Chronic osteomyelitis -- Skin, subcutaneous tissue and bone at surgical margin viable. PRE-OPERATIVE DIAGNOSIS Type 2 diabetes mellitus with foot ulcer. GROSS DESCRIPTION The specimen is received in formalin labeled, Right Great Toe, and consists of a 4.6 x 3.5 x 3.3 cm disarticulated digit. The margin of resection displays glistening smooth irving-white articular surface and riving-pink soft tissue. The skin margin appears viable. There is a 1.8 x 0.1 cm irving-red linear defect on the plantar surface, 0.9 cm from the skin margin. The surrounding skin is irregular and mottled irving-red. The remaining skin is smooth to wrinkled irving-white. Received separately in the same container is a 2.0 x 1.4 x 1.4 cm irving-pink irregular bone fragment with attached soft tissue. The fragment is partially surfaced by glistening smooth articular surface. Leadite Man sections are submitted in cassettes A and B to include lesion and inked skin margin in cassette A and bone following decalcification in cassette B. MICROSCOPIC DESCRIPTION Signed (signature on file) Byron Morel MD 1152 END OF REPORT * ML=Testing performed at Main Lab DEPARTMENT OF PATHOLOGY, [address] [place] [address] Byron Morel M.D. Director [facility] # [id number] 15 Certified Pharmacy Technician: [id number] Danyel Huizar 16 <5.0 Negative 5.0 - 25.0 Indeterminate (Repeat testing recommended after 72 hours) >25.0 Positive Perimenopausal women can display HCG levels of up to 20 mIU/mL 17 Certified Pharmacy Technician: [id number] MARIO ALBERTO LOAN Procedures Date Code Description Status 06/24/2017 36152 ECHO Transthorasic Realtime 2D W Doppler & Color Flow Hosp Completed 02/01/2017 80727 EKG, Interpretation Only Completed 07/25/2016 87402 Walking Cast Completed 07/16/2016 82197 Amputation Foot Transmetatarsal Completed 07/16/2016 72982 Amputation Foot Transmetatarsal Completed 07/15/2016 91689 EKG, Interpretation Only Completed 05/18/2016 71841 EKG, Interpretation Only Completed 04/24/2016 61213 Nerve Conduction 05-06 Studies Completed 02/08/2016 54411 ECHO Transthorasic Realtime 2D W Doppler & Color Flow Hosp Completed 01/05/2016 11756 Removal Of Tunneled Central Venous Cath W/O Subcutaneous Completed Port/BED RUBBER 12/07/2015 97456 Lap W/Insert Intraperitoneal Cannula Or Catheter Permanent Completed 11/13/2015 32394 EKG, Interpretation Only Completed 09/12/2015 38021 Treadmill Interp/Report Only Completed 09/12/2015 94781 Stress Test Supervsn W/Out I/R Completed 09/02/2015 32046 EKG, Interpretation Only Completed 06/13/2015 32723 Amputation Toe MP JT Completed 06/13/2015 41794 Amputation Toe MP JT Completed 05/16/2015 86787 EKG, Interpretation Only Completed 03/23/2014 71528 EKG, Interpretation Only Completed Encounters Type Date Location Provider Dx Diagnosis Office Visit 02/20/2018 [facility] R10.9 Unspecified 10:37a Assoc,pc Shortle, GLUE MIXER abdominal pain Hospitalists R50.9 Fever, unspecified N18.6 End stage renal disease Z99.2 Dependence on renal dialysis E11.43 Type 2 diabetes w diabetic autonomic (poly)neuropathy K31.84 Gastroparesis E11.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 abdominal pain Hospitalists R50.9 Fever, unspecified D72.829 Elevated white blood cell count, unspecified E87.79 Other fluid overload E11.9 Type 2 diabetes mellitus without complications Z99.2 Dependence on renal dialysis Z79.4 access analyst (current) use of insulin N18.6 End stage renal disease Office Visit 06/24/2017 [facility] Cheryl J96.21 Acute and chronic 9:16a Assoc,gianna Marquez NP respiratory Hospitalists failure with hypoxia R07.9 Chest pain, unspecified N18.6 End stage renal disease Z99.2 Dependence on renal dialysis Office Visit 03/11/2017 6:52a [facility] Lore R11.2 Nausea with Assoc,pc Wendi Rothman vomiting, Hospitalists unspecified E11.22 Type 2 diabetes mellitus w diabetic chronic kidney disease N18.6 End stage renal disease I10 Essential (primary) hypertension Office Visit 02/20/2017 10:18a [facility] Wilfrid R10.13 Epigastric pain Assoc,pc GIOVANNI Muhammad Hospitalists D72.829 Elevated white blood cell count, unspecified E11.9 Type 2 diabetes mellitus without complications Z79.4 access analyst (current) use of insulin Office Visit 02/19/2017 10:18a [facility] Wilfrid R10.13 Epigastric pain Assoc,GIOVANNI Duff Hospitalists D72.829 Elevated white blood cell count, unspecified E11.9 Type 2 diabetes mellitus without complications Z79.4 halfway (current) use of insulin Office Visit 02/18/2017 10:17a [facility] Hortencia Jimenez, R10.13 Epigastric pain Assoc,pc N.P. Hospitalists D72.829 Elevated white blood cell count, unspecified E11.9 Type 2 diabetes mellitus without complications Z79.4 access analyst (current) use of insulin [facility] Acute respiratory Assoc,gianna Mcdowell M.D. failure with Hospitalists hypoxia J18.1 Lobar pneumonia, unspecified organism E11.21 Type 2 diabetes mellitus with diabetic nephropathy Z99.2 Dependence on renal dialysis Office Visit 02/03/2017 [facility] Alfonso Moore J96.01 Acute respiratory 8:01a Assoc,gianna Vail D.O. failure with Hospitalists hypoxia J18.1 Lobar pneumonia, unspecified organism E11.21 Type 2 diabetes mellitus with diabetic nephropathy Z99.2 Dependence on renal dialysis Office Visit 02/02/2017 8:01a [facility] Lore J96.01 Acute respiratory Assoc,gianna Rothman D.O. failure with Hospitalists hypoxia J18.1 Lobar pneumonia, unspecified organism E11.21 Type 2 diabetes mellitus with diabetic nephropathy Z99.2 Dependence on renal dialysis Office Visit 02/01/2017 8:00a [facility] Lore J18.1 Lobar pneumonia, Assoc,gianna Rothman D.O. unspecified Hospitalists organism J96.01 Acute respiratory failure with hypoxia E11.21 Type 2 diabetes mellitus with diabetic nephropathy Z99.2 Dependence on renal dialysis Office Visit 01/31/2017 [facility] Torito Gonsalves J18.1 Lobar pneumonia, 7:59a Assgianna carrillo II, M.D. unspecified Hospitalists organism E11.21 Type 2 diabetes mellitus with diabetic nephropathy N18.6 End stage renal disease A41.9 Sepsis, unspecified organism Office Visit 12/19/2016 2:45p Orthopedic Sebastien M79.671 Pain in right Services Of Mitchell Garcia M.D. foot AT [place] Office Visit 11/09/2016 9:00a Orthopedic Sebastien I73.9 Peripheral Services Of Keenan Garcia vascular disease, C.M.A. 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 w diabetic Hospitalists peripheral angiopathy w gangrene E11.69 Type 2 diabetes mellitus with other specified complication K31.84 Gastroparesis L08.9 Local infection of the skin and subcutaneous tissue, unsp Office Visit 11/02/2016 3:03p [facility] Lore R10.84 Generalized Assoc,gianna Rothman D.O. abdominal pain Hospitalists R11.2 Nausea with vomiting, unspecified E11.9 Type 2 diabetes mellitus without complications Z79.4 access analyst (current) use of insulin Office Visit 09/20/2016 3:14p [facility] Ana Wray M79.671 Pain in Infectious Abdiel Tan. right foot Diseases Z89.421 Acquired absence of other right toe(s) E11.40 Type 2 diabetes mellitus with diabetic neuropathy, unsp Office Visit 09/20/2016 1:59p [facility] Tash Daigle L97.512 Non- prs Assoc,gianna Hussein chronic ulcer Hospitalists oth prt right foot w fat layer exposed E11.9 Type 2 diabetes mellitus without complications N18.6 End stage renal disease Z79.4 halfway (current) use of insulin Office Visit 09/19/2016 3:30p Tom Moon I73.9 Peripheral Medicine Of Mitchell Serrano M.D. vascular disease, unspecified E11.9 Type 2 diabetes mellitus without complications Office Visit 09/19/2016 1:59p [facility] Ann L97.512 Non-prs Assoc,gianna Dorsey M.D. 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 Office Visit 09/18/2016 [facility] Morris L97.512 Non-prs 1:58p Assoc,GIOVANNI Pate chronic Hospitalists ulcer oth prt right foot w fat layer exposed E11.9 Type 2 diabetes mellitus without complications N18.6 End stage renal disease Z79.4 halfway (current) use of insulin Office Visit 09/09/2016 4:17p Sonia Dunn I70.201 Unsp [facility]cl [place] [facility] [place] Jen, arteries of Disassembler AT [facility] FACC, FSCAI extremities, right leg I25.10 Athscl heart disease of [place] coronary artery w/o ang pctrs [facility] Local infection Visit 9:44a gianna Gutierrez PA of the skin and Hospitalists subcutaneous tissue, unsp I73.9 Peripheral vascular disease, unspecified E11.8 Type 2 diabetes mellitus with unspecified complications I10 Essential (primary) hypertension Office 09/08/2016 [facility] L08.9 Local infection Visit 9:44a gianna Gutierrez PA of the skin and Hospitalists subcutaneous tissue, unsp I73.9 Peripheral vascular disease, unspecified E11.8 Type 2 diabetes mellitus with unspecified complications I10 Essential (primary) hypertension Office Visit 09/07/2016 [facility] Yordy Wray T81.31xA Disruption of 10:16a For Infectious Keenan Tan external Diseases operation (surgical) wound, NEC, init T81.4xxA Infection following a procedure, initial encounter Z89.421 Acquired absence of other right toe(s) E11.40 Type 2 diabetes mellitus with diabetic neuropathy, unsp E11.51 Type 2 diabetes w diabetic peripheral angiopath w/o gangrene Office [facility]07[facility] Local infection Visit 9:43a gianna Gutierrez PA of the skin and Hospitalists subcutaneous tissue, unsp I73.9 Peripheral vascular disease, unspecified E11.8 Type 2 diabetes mellitus with unspecified complications I10 Essential (primary) hypertension Office Visit 09/06/2016 [facility] [place] L08.9 Local infection of 9:42a gianna Gutierrez, N.P. the skin and Hospitalists subcutaneous tissue, unsp I73.9 Peripheral vascular disease, unspecified E11.8 Type 2 diabetes mellitus with unspecified complications I10 Essential (primary) hypertension Office Visit 08/02/2016 3:38p [facility] Garrick Sanford, R11.2 Nausea with gianna Gutierrez M.D. vomiting, Hospitalists unspecified E11.9 Type 2 diabetes mellitus without complications Z79.4 access analyst (current) use of insulin N18.6 End stage renal disease [facility] M86.671 Other chronic 9:40a For Infectious Abdiel Tan. osteomyelitis, Diseases right ankle and foot Z89.421 Acquired absence of other right toe(s) E11.69 Type 2 diabetes mellitus with other specified complication E11.40 Type 2 diabetes mellitus with diabetic neuropathy, unsp Office Visit 07/18/2016 [facility] M86.171 Other acute 10:38a gianna Gutierrez NP osteomyelitis, Hospitalists right ankle and foot N18.6 End stage renal disease I73.9 Peripheral vascular disease, unspecified Z99.2 Dependence on renal dialysis Office Visit 07/17/2016 [facility] M86.171 Other acute 10:37a gianna Gutierrez NP osteomyelitis, Hospitalists right ankle and foot N18.6 End stage renal disease I73.9 Peripheral vascular disease, unspecified Z99.2 Dependence on renal dialysis Office Visit 07/17/2016 [facility] M86.671 Other chronic 9:35a For Infectious Keenan Tan osteomyelitis, Diseases right ankle and foot I96 Gangrene, not elsewhere classified Z89.421 Acquired absence of other right toe(s) R19.7 Diarrhea, unspecified N18.5 Chronic kidney disease, stage 5 Office Visit 07/16/2016 [facility] M86.171 Other acute 10:37a gianna Gutierrez NP osteomyelitis, Hospitalists right ankle and foot N18.6 End stage renal disease I73.9 Peripheral vascular disease, unspecified Z99.2 Dependence on renal dialysis Office Visit 07/15/2016 [facility] M86.171 Other acute 10:36a gianna Gutierrez NP osteomyelitis, Hospitalists right ankle and foot N18.6 End stage renal disease I73.9 Peripheral vascular disease, unspecified Z99.2 Dependence on renal dialysis Office Visit 07/14/2016 [facility] M86.171 Other acute 10:35a Assocgianna MD osteomyelitis, Hospitalists right ankle and foot N18.6 End stage renal disease I73.9 Peripheral vascular disease, unspecified Z99.2 Dependence on renal dialysis Office Visit 07/13/2016 [facility] Sebastien M86.671 Other chronic 2:15p Services Of Keenan Garcia osteomyelitis, right C.M.A. ankle and foot Office Visit 07/11/2016 Orthopedic Sebastien M86.671 Other chronic 2:30p Services Of Mitchell Garcia M.D. osteomyelitis, right AT [place] ankle and foot Office Visit 06/28/2016 Surgical Tommie Lomas L03.031 Cellulitis of right 1:30p Associates Of MD Brad, toe Disassembler FACS E11.8 Type 2 diabetes mellitus with unspecified complications E11.52 Type 2 diabetes w diabetic peripheral angiopathy w gangrene E11.40 Type 2 diabetes mellitus with diabetic neuropathy, unsp Office Visit 06/11/2016 2:15p Wound Care Raven Bravo, E11.52 Type 2 diabetes w Center AT [facility] PREETHI RN, CLERICAL OFFICE- diabetic peripheral angiopathy w gangrene L97.514 Non-prs chronic ulcer oth prt right foot w necrosis of bone L97.419 Non-prs chr ulcer of right heel and midfoot w unsp severt M86.371 Chronic multifocal osteomyelitis, right ankle and foot E11.22 Type 2 diabetes mellitus w diabetic chronic kidney disease N18.6 End stage renal disease E11.42 Type 2 diabetes mellitus with diabetic polyneuropathy Office Visit 05/19/2016 [place] Kyle Crowe M86.9 Osteomyelitis, 12:39p gianna Gutierrez M.D. unspecified Hospitalists E11.8 Type 2 diabetes mellitus with unspecified complications E78.5 Hyperlipidemia, unspecified Office Visit 05/18/2016 [facility] Sebastien Zuñiga86.9 Osteomyelitis, 12:39p gianna Gutierrez M.D. unspecified Hospitalists E11.8 Type 2 diabetes mellitus with unspecified complications E78.5 Hyperlipidemia, unspecified I10 Essential (primary) hypertension Office Visit 05/18/2016 7:54a Orthopedic Leticia Ambrose, E11.22 Type 2 diabetes Services Of PA mellitus w C.M.A. diabetic chronic kidney disease N18.6 End stage renal disease S91.104A Unsp opn wnd right lesser toe(s) w/o damage to nail, init Office Visit 05/18/2016 9:55a [facility] Ana Wray E11.52 Type 2 diabetes Infectious Macqueen, M.D. w diabetic Diseases peripheral angiopathy w gangrene L03.031 Cellulitis of right toe E11.22 Type 2 diabetes mellitus w diabetic chronic kidney disease N18.6 End stage renal disease Office Visit 05/17/2016 [facility] [place] M86.9 Osteomyelitis, 12:37p Assoc,pc Cathy Bell unspecified Hospitalists E11.8 Type 2 diabetes mellitus with unspecified complications E78.5 Hyperlipidemia, unspecified I10 Essential (primary) hypertension Office Visit 03/05/2016 2:45p Pulmonology And Clarice R59.0 Localized Sleep Services Of MD Oumar enlarged lymph Disassembler nodes G47.9 Sleep disorder, unspecified F17.210 Nicotine dependence, cigarettes, uncomplicated E66.01 Morbid (severe) obesity due to excess calories J98.11 Atelectasis Office Visit 02/11/2016 [facility] Virgilio M21.372 Foot drop, left 2:16p Clinic Keenan Toth foot Office Visit 02/11/2016 [facility] Sebastien J96.01 Acute 2:55p Assoc,pc Aliciaists Keenan Garza respiratory failure with hypoxia N18.6 End stage renal disease 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 Z79.4 access analyst (current) use of insulin Office Visit 02/10/2016 [facility] Samuel J96.01 Acute respiratory 2:54p Assoc,pc MD Toi failure with Hospitalists hypoxia N18.6 End stage renal disease 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 Z79.4 halfway (current) use of insulin Office Visit 02/10/2016 [facility] Alfonso Moore J96.01 Acute respiratory 2:55p Assoc,pc Wendi Vail failure with Hospitalists hypoxia 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 N18.6 End stage renal disease Z79.4 halfway (current) use of insulin Office Visit 02/08/2016 [facility]hospital[facility] Virgilio Meza1.372 Foot drop, 2:15p Clinic Keenan Toth left foot Office Visit 02/08/2016 [facility] Elena Estrada, R53.1 Weakness 2:52p Assoc,pc Hospitalists DO 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 N18.6 End stage renal disease Z79.4 halfway (current) use of insulin Office 02/07/2016 [facility] Virgilio M21.372 Foot drop, left Visit 2:14p Clinic Keenan Toth foot Office 01/27/2016 [facility] Torito R73.9 Hyperglycemia, Visit 9:45a Assoc,pc Hospitalists Frankenberg II, unspecified MKylah R07.89 Other chest pain N18.6 End stage renal disease I10 Essential (primary) hypertension Office Visit 11/28/2015 11:45a [facility] Tommie Lomas N18.6 End stage renal Of Mitchell Salinas MD, disease FACS L03.311 Cellulitis of abdominal wall L03.313 Cellulitis of chest wall Office Visit 11/13/2015 1:00p [facility] Quinton J20.9 Acute bronchitis, Assoc,gianna Mcdowell M.D. unspecified Hospitalists E11.22 Type 2 diabetes mellitus w diabetic chronic kidney disease N18.6 End stage renal disease I10 Essential (primary) hypertension Office Visit 10/21/2015 [facility] Samuel L03.311 Cellulitis of 3:29p Assoc,gianna Cm MD abdominal wall Hospitalists T85.71xA Infect/inflm reaction due to periton dialysis catheter, init E11.22 Type 2 diabetes mellitus w diabetic chronic kidney disease Z79.4 access analyst (current) use of insulin [facility]311 Cellulitis of 3:28p Assgianna carrillo II, M.D. abdominal wall Hospitalists T85.71xA Infect/inflm reaction due to periton dialysis catheter, init E11.22 Type 2 diabetes mellitus w diabetic chronic kidney disease Z79.4 access analyst (current) use of insulin Office Visit 09/12/2015 [facility] R07.9 Chest pain, 9:34a Assoc,gianna Ramesh NP unspecified Hospitalists N18.6 End stage renal disease E11.8 Type 2 diabetes mellitus with unspecified complications Z79.4 halfway (current) use of insulin Office Visit 09/11/2015 [facility] Inés Harris R07.9 Chest pain, 9:28a Assgianna carrillo NP unspecified Hospitalists N18.6 End stage renal disease E11.8 Type 2 diabetes mellitus with unspecified complications Office Visit 09/02/2015 1:57p [facility] R07.89 Other chest Assocgianna II, M.D. pain Hospitalists E11.22 Type 2 diabetes mellitus w diabetic chronic kidney disease N18.6 End stage renal disease Z79.4 access analyst (current) use of insulin Office Visit 05/27/2015 Orthopedic Sebastien E11.621 Type 2 diabetes 3:30p Services Of Iraida Garcia M.D. mellitus with foot ulcer Office Visit 05/17/2015 [facility] [place] E11.8 Type 2 diabetes 2:49p Assgianna carrillo, mellitus with Hospitalists N.P. unspecified complications T14.8 Other injury of unspecified body region N18.6 End stage renal disease I10 Essential (primary) hypertension Office Visit 05/16/2015 2:12p [facility] Ana Wray L97.519 Non- prs Infectious Keenan Tan chronic ulcer Diseases oth prt right foot w unsp severity G62.9 Polyneuropathy, unspecified N18.6 End stage renal disease Z99.2 Dependence on renal dialysis I25.10 Athscl heart disease of [place] coronary artery w/o ang pctrs Office Visit 05/16/2015 [facility] T14.8 Other injury of 2:48p Assoc,gianna Ramesh, GLUE MIXER unspecified body Hospitalists region N18.6 End stage renal disease E11.8 Type 2 diabetes mellitus with unspecified complications I10 Essential (primary) hypertension Office Visit 05/16/2015 10:37a [facility] Alexandrea T14.8 Other injury of Asslorena,GIOVANNI Clinton unspecified body Hospitalists region N18.6 End stage renal disease E11.8 Type 2 diabetes mellitus with unspecified complications I10 Essential (primary) hypertension Office Visit 05/15/2015 2:48p [facility] Liliana Sandra T14.8 Other injury of Assoc,gianna Prasad, N.P. unspecified body Hospitalists region N18.6 End stage renal disease E11.8 Type 2 diabetes mellitus with unspecified complications I10 Essential (primary) hypertension Office Visit 05/14/2015 [facility] [place] T14.8 Other injury of 2:47p Asslorena,gianna Bell, N.P. unspecified body Hospitalists region N18.6 End stage renal disease E11.8 Type 2 diabetes mellitus with unspecified complications I10 Essential (primary) hypertension Office Visit 04/12/2015 11:00a Orthopedic Sebastien E10.621 Type 1 diabetes Services Of Mitchell Garcia M.D. mellitus with AT [place] foot ulcer L97.513 Non-prs chronic ulcer oth prt right foot w necros muscle Office Visit 03/29/2015 Orthopedic Sebastien Garcia, E10.621 Type 1 9:10a Services Of Mitchell TRIVEDI M.D. diabetes [place] mellitus with foot ulcer Office Visit 12/10/2014 [facility] Torito Sigifredotatiana R53.81 Other malaise 3:34p gianna Gutierrez II, M.D. 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 Renal Disease Hospitalists 414.00 Coronary Atherosclerosis Unspec Type Vessel Quechan/Graft 362.10 Retinopathy Background Unspec 250.00 Diabetes Mellitus W/O Compl Type II Or Unspec Controlled Office Visit 06/27/2014 7:45a [facility] Ann 789.00 Pain Abdominal Assoc,gianna Dorsey M.D. Unspec Site Hospitalists 585.6 End Stage Renal Disease 250.00 Diabetes Mellitus W/O Compl Type II Or Unspec Controlled Office Visit 04/06/2014 8:26a [facility] Amari Españayuly, 786.50 Pain Chest Assoc,gianna Hussein Unspec Hospitalists 585.6 End Stage Renal Disease 250.00 Diabetes Mellitus W/O Compl Type II Or Unspec Controlled 401.9 Hypertension Unspec Office Visit 04/05/2014 8:25a [facility] Liliana Flores 786.50 Pain Chest Assoc,gianna Prasad, N.P. Unspec Hospitalists 585.6 End Stage Renal Disease 250.00 Diabetes Mellitus W/O Compl Type II Or Unspec Controlled 401.9 Hypertension Unspec Plan of Treatment Future Appointment(s):03/07/2018 2:15 pm - Petty Arriaza NP at [facility]12/19/2016 - Sebastien Garcia M.D.M79.671 Pain in right foot
[2018-03-17] MEDS ORDERED: NS 0.9% 250 ML* 250 ML IV ONE (12:15)
[2018-03-17 13:12] LABS: Urine Appearance Cloudy; Urine Bacteria Absent (Absent); Urine Bilirubin Negative (Negative); Urine Blood Negative (Negative); Urine Color Yellow; Urine Glucose 3+(>=500 mg/dL) (Negative); Urine Ketones Negative (Negative); Urine Nitrite Negative (Negative); Urine Protein 3+(>=500 mg/dL) (Negative); Urine Red Blood Cell Absent (Absent); Urine Specific Gravity 1.029 (1.010-1.030); Urine Urobilinogen Negative (Negative); Urine White Blood Cell Trace(0-5/hpf) (Absent)
[2018-03-17 13:30] LABS: Albumin 2.9 g/dL (3.2-5.2); Albumin/Globulin Ratio 0.8 (1-3); BUN/Creatinine Ratio 6.7 (8-20); Calcium 8.8 mg/dL (8.6-10.3); EGFR Non-African American 10.3 (>60); Globulin 3.6 g/dL (2-4); Total Bilirubin 0.2 mg/dL (0.2-1.0); Total Protein 6.5 g/dL (6.4-8.9)
[2018-03-17 13:55] LABS: ABS Basophils 0.1 10^3/ul (0-0.2); ABS Eosinophils 0.2 10^3/ul (0-0.6); ABS Lymphocytes 0.9 10^3/ul (1.0-4.8); ABS Monocytes 0.4 10^3/ul (0-0.8); ABS Neutrophils 9.4 10^3/ul (1.5-7.7); ABS Nucleated RBC 0 10^3/ul; Eosinophil % 2.1 %; Hematocrit 27 % (35-47); Hemoglobin 8.7 g/dl (12.0-16.0); Lymphocyte % 8.1 %; Mean Corpuscular HGB Conc 33 g/dl (31-36); Mean Corpuscular Hemoglobin 30 pg (27-31); Mean Corpuscular Volume 93 fL (80-97); Mean Platelet Volume 8.6 fL (7.4-10.4); Nucleated Red Blood Cells % 0; Platelet Count 373 10^3/ul (150-450); Red Blood Count 2.88 10^6/ul (4.00-5.40); Red Cell Distribution Width 17 % (10.5-15)
[2018-03-17] MEDS ORDERED: Insulin REGULAR(*) 1 UNITS UNIT IV PUSH ONE (14:10)
[2018-03-17 14:41] VITALS: BP 157/85
== END 2018-03-17 14:40 | disposition home or self-care (01) ==
LOC: ED 11:42
DX: E11.22 Type 2 diabetes mellitus with diabetic chronic kidney disease (principal); I13.11 Hypertensive heart and chronic kidney disease without heart failure, with stage 5 chronic kidney disease, or end stage renal disease; N18.6 End stage renal disease; Z99.2 Dependence on renal dialysis; Z79.4 Long term (current) use of insulin; B34.9 Viral infection, unspecified; K31.84 Gastroparesis; Z79.82 Long term (current) use of aspirin; Z95.5 Presence of coronary angioplasty implant and graft; Z89.411 Acquired absence of right great toe; Z89.421 Acquired absence of other right toe(s); Z88.1 Allergy status to other antibiotic agents; Z88.2 Allergy status to sulfonamides; Z88.8 Allergy status to other drugs, medicaments and biological substances; Z91.048 Other nonmedicinal substance allergy status; Z82.49 Family history of ischemic heart disease and other diseases of the circulatory system; F17.210 Nicotine dependence, cigarettes, uncomplicated
CPT/HCPCS: 36415; 71046; 80053; 81003; 81015; 85025; 87040; 87070; 87086; 87205; 96374; 99283

== ENCOUNTER 2018-03-18 00:19 | Inpatient (IN) | payer OTHER ==
--- NOTE | 2018-03-18 01:00 | ED ---
Complex/Multi-Sys Presentation - HPI Summary HPI Summary: Patient is a 37 y/o F presenting to ED with complaints of chills and diaphoresis. Patient reports that Sx onset five days ago. She states that she went to PCP three days ago, was noted to have a fever and was prescribed amoxicillin. Patient claims that she was told to go to hospital if Sx did not improve within the next two days. She reports fever has persisted, she measured temp to be 101 F today and took Tylenol at 1600 today. N/V/D, abdominal pain are reported to have onset today as well. Patient is on home o2. Patient had been seen at [facility] [place] [place] earlier today, she was discharge to home. On triage, pain is rated 7/10. Home medications and allergies are reviewed. - History Of Current Complaint Chief Complaint: EDGeneral Time Seen by Provider: 03/18/18 00:31 Hx Obtained From: Patient Onset/Duration: Lasting Days - 5, Still Present, Worse Since Timing: Constant, Days - 5 Severity Initially: Severe - 7/10 Location: Pain At: - abd Aggravating Factor(s): nothing Alleviating Factor(s): nothing Associated Signs And Symptoms: Positive: Nausea, Vomiting, Diarrhea, Abdominal Pain, Fever, Diaphoresis, Other - POSITIVE - CHILLS - Allergies/Home Medications Allergies/Adverse Reactions: Allergies Allergy/AdvReac Type Severity Reaction Status Date / Time Adhesive Tape [Plastic Tape] Allergy Mild Blisters Verified 03/17/18 11:52 erythromycin base Allergy See Comment Verified 03/17/18 11:52 heparin Allergy See Comment Verified 03/17/18 11:52 metoclopramide [From Reglan] Allergy Hives Verified 03/17/18 11:52 metronidazole [From Flagyl] Allergy Nausea And Verified 03/17/18 11:52 Vomiting niacin Allergy Rash Verified 03/17/18 11:52 ropinirole [From Requip] Allergy Hives Verified 03/17/18 11:52 Sulfa (Sulfonamide Allergy Vomiting Verified 03/17/18 11:52 Antibiotics) PMH/Surg Hx/FS Hx/Imm Hx Endocrine/Hematology History: Reports: Hx Anticoagulant Therapy - Aspirin., Hx Blood Transfusions, Hx Diabetes - uses insulin, Hx Thyroid Disease - nodule, Hx Anemia - hx of - reports had tranfusion in 2013 after mi Cardiovascular History: Reports: Hx Angina, Hx Cardiac Arrest - in 2013 with CPR, Hx Cardiomegaly, Hx Coronary Artery Disease, Hx Deep Vein Thrombosis, Hx Hypercholesterolemia, Hx Hypertension, Hx Myocardial Infarction, Other Cardiovascular Problems/Disorders Denies: Hx Congestive Heart Failure, Hx Pacemaker/ICD, Hx Valvular Heart Disease Respiratory History: Reports: Hx Asthma, Hx Chronic Obstructive Pulmonary Disease (COPD) - smoker, Hx Pneumonia, Hx Sleep Apnea, Other Respiratory Problems/Disorders - acute respipatory failure with hypoxia - jan 2016 Denies: Hx Lung Cancer, Hx Pulmonary Embolism - pt says no, although documented in char GI History: Reports: Hx Gall Bladder Disease, Hx Gastroesophageal Reflux Disease , Other GI Disorders - GASTROPARESIS - TAKING OMEPRAZOLE, reglan and zofran Denies: Hx Gastrointestinal Bleed, Hx Ulcer, Hx Urosepsis History: Reports: Hx Acute Renal Failure, Hx Chronic Renal Failure - ESRD on PD, Hx Dialysis - PERITONEAL, Hx Kidney Stones, Hx Renal Disease - ESRD on home peritoneal dialysis , Other Problems/Disorders Musculoskeletal History: Reports: Hx Arthritis - back, hips, Hx Back Problems - Sciatica and Herniated L3 disk, Other Musculoskeletal History - partial amputation of toes/foot Sensory History: Reports: Hx Eye Prosthesis - left, 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 no vision in left, Hx Vision Problem Denies: Hx Contacts or Glasses Neurological History: Reports: Other Neuro Impairments/Disorders - neuropathy Denies: Hx Transient Ischemic Attacks (TIA) Psychiatric History: Reports: Hx Anxiety, Hx Depression, Hx Bipolar Disorder Denies: Hx Eating Disorder, Hx Panic Disorder, Hx Schizophrenia, Hx of Violent Episodes Against Others - Cancer History Cancer Type, 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 MELANOMA REMOVED FROM [facility]VA 2012 (PROCEDURE DONE 4X);. CARDIAC CATH 2013 - NO STENTS;. LEFT WRIST FISTULA PLACEMENT ([facility]) 2013;. HEMODIALYSIS CATH RIGHT CHEST WALL 2013;. PERITONEAL DIALYSIS CATH 03/2014;. CHEST WALL CATH REMOVAL 08/2015 [facility] [place] [place];. RIGHT GREAT TOE AMPUTATION, [facility] [place] [place] 05/2015;. PLACEMENT RIGHT JUGULAR TESIO HEMODIALYSIS CATHETER [facility] [place] [place] 10/22/2015;. REMOVAL OF JUGULAR CATH - OCT 2015. CARDIAC CATH - stentsx2 right leg. PARTIAL AMPUTATION RIGHT TOES 06/2016. RIGHT TOES ALL REMOVED Hx Anesthesia Reactions: No - Immunization History Date of Tetanus Vaccine: utd Date of Influenza Vaccine: 11/2016 Infectious Disease History: No Infectious Disease History: Reports: Hx of Known/Suspected MRSA - MRSA R 1st toe , History Other Infectious Disease - GANGRENE Denies: Hx Clostridium Difficile, Hx Hepatitis, Hx Human Immunodeficiency Virus (HIV), Hx Shingles, Hx Tuberculosis, Traveled Outside the [place] in Last 30 Days - Family History Known Family History: Positive: Cardiac Disease - father [place] at 42 y/o, Hypertension, Other - Positive for bipolar and depression. Completed suicide to sister. - Social History Alcohol Use: None Hx Substance Use: No Substance Use Type: Reports: None Substance Use Comment - Amount & Last Used: methadone Hx Tobacco Use: Yes Smoking Status (MU): Heavy Every Day Tobacco Smoker Type: Cigarettes Amount Used/How Often: 1 PPD Length of Time of Smoking/Using Tobacco: 20 YEARS Have You Smoked in the Last Year: Yes Review of Systems Positive: Fever, Chills, Skin Diaphoresis Positive: Abdominal Pain, Vomiting, Diarrhea, Nausea All Other Systems Reviewed And Are Negative: Yes Physical Exam - Summary Physical Exam Summary: VITAL SIGNS: Reviewed. GENERAL: Patient is a well-developed and nourished female who is lying comfortable in the stretcher. Patient is not in any acute respiratory distress. HEAD AND FACE: No signs of trauma. No ecchymosis, hematomas or skull depressions. No sinus tenderness. EYES: PERRLA, EOMI x 2, No injected conjunctiva, no nystagmus. EARS: Hearing grossly intact. Ear canals and tympanic membranes are within normal limits. MOUTH: Oropharynx within normal limits. NECK: Supple, trachea is midline, no adenopathy, no JVD, no carotid bruit, no c- spine tenderness, neck with full ROM. CHEST: Symmetric, no tenderness at palpation LUNGS: Clear to auscultation bilaterally. No wheezing or crackles. CVS: Regular rate and rhythm, S1 and S2 present, no murmurs or gallops appreciated. ABDOMEN: Soft, diffuse abdominal tenderness with distension. No rebound no guarding, and no masses palpated. Bowel sounds are normal. She has a peritoneal dialysis catheter at [facility]. EXTREMITIES: FROM in all major joints, no edema, no cyanosis or clubbing. NEURO: Alert and oriented x 3. No acute neurological deficits. Speech is normal and follows commands. SKIN: Dry and warm Triage Information Reviewed: Yes Vital Signs On Initial Exam: Initial Vitals Temp Pulse Resp BP Pulse Ox 98.3 F 102 20 196/118 96 03/18/18 00:26 03/18/18 00:26 03/18/18 00:26 03/18/18 00:26 03/18/18 00:26 Vital Signs Reviewed: Yes Diagnostics - Vital Signs Vital Signs Temp Pulse Resp BP Pulse Ox 03/18/18 00: 98.3 F 102 20 196/118 96 - Laboratory Result Diagrams: 03/18/18 02:08 03/18/18 02:08 Lab Statement: Any lab studies that have been ordered have been reviewed, and results considered in the medical decision making process. - CT chest/abdomen/pelvis CT CT Interpretation Completed By: Radiologist Summary of CT Findings: CT CHEST/ABD/PEL IMPRESSION: 1. Minimal scattered fibro -atelectatic change, greatest in the lingula and. right middle lobe and minimal patchy ground glass infiltrates, greatest in the. lower lobes. 2. Otherwise negative CT chest. This report was reviewed by ED physician Re-Evaluation - Re-Evaluation First Eval Re-Evaluation Time: 02:53 Comment: Results of labs and tests were discussed with patient. She claims that she is too weak to go home. Patient to be admitted to hospitalist. Complex Multi-Symp Course/Dx Course Of Treatment: Patient is a 37 y/o F presenting to ED with complaints of chills and diaphoresis. Patient reports that Sx onset five days ago. She states that she went to PCP three days ago, was noted to have a fever and was prescribed amoxicillin. Patient claims that she was told to go to hospital if Sx did not improve within the next two days. She reports fever has persisted, she measured temp to be 101 F today and took Tylenol at 1600 today. N/V/D, abdominal pain are reported to have onset today as well. Patient is on home o2. Patient had been seen at [facility] [place] [place] earlier today, she was discharge to home. On physical exam, diffuse abdominal tenderness and distension is noted. She has a peritoneal dialysis catheter at [facility]. CT CHEST/ABD/PEL IMPRESSION: 1. Minimal scattered fibro-atelectatic change, greatest in the lingula and. right middle lobe and minimal patchy ground glass infiltrates, greatest in the. lower lobes. 2. Otherwise negative CT chest. During ED course, patient was given Zofran 8 mg IV, Morphine 4 mg IV, Trandate 20 mg IV. Labs showed lipase 29, amylase < 10, CRP 52.95, total protein 6.2, albumin 3, albumin/globulin ratio 0.9, ALT 6, AST 6, magnesium 1.8, lactic acid 0.8, glucose 240, BUN/creatinine ratio 6.8, creatinine 5.17, BUN 35, chloride 99, INR 1.97, absolute neuts 9.7, RDW 18, Hct 26, Hgb 8.3, RBC 2.83, WBC 11.8. Results of labs and tests were discussed with patient. She claims that she is too weak to go home. Patient to be admitted to hospitalist. Patient' case was discussed with Dr. Trujillo, Dr. Trujillo accepts for admission. - Diagnoses Provider Diagnoses: PNA (pneumonia), Fever, Weakness - Physician Notifications Discussed Care Of Patient With: Caterina Trujillo Time Discussed With Above Provider: 02:55 Instructed by Provider To: Other - Patient' case was discussed with Dr. Trujillo, Dr. Trujillo accepts for admission. Discharge - Sign-Out/Discharge Documenting (check all that apply): Patient Departure - admit - Discharge Plan Condition: Stable Disposition: ADMITTED TO [facility] Referrals: Aishwarya Solis MD [Primary Care Provider] - - Attestation Statements Document Initiated by Scribe: Yes Documenting Scribe: OLLIE CARDONA Provider For Whom Florencioibshannan is Documenting (Include Credential): ANGLE VICENTE MD Scribe Attestation: OLLIE Palacio, scribed for ANGLE VICENTE MD on 03/18/18 at 0303. Status of Scribe Document: Ready
[2018-03-18] MEDS ORDERED: Labetalol IV* 5 MG/ML 20 ML VIAL IV PUSH ONE (01:12)
[2018-03-18] MEDS ORDERED: Morphine VIAL* 4 MG/ML VIAL (1 ml vial) IV ONE ×2 (01:13→03:00)
[2018-03-18] MEDS ORDERED: Ondansetron INJ* 2 MG/ML VIAL IV ONE ×2 (01:13→03:00)
[2018-03-18 02:23] LABS: ABS Basophils 0.1 10^3/ul (0-0.2); ABS Eosinophils 0.3 10^3/ul (0-0.6); ABS Lymphocytes 1.2 10^3/ul (1.0-4.8); ABS Monocytes 0.6 10^3/ul (0-0.8); ABS Neutrophils 9.7 10^3/ul (1.5-7.7); ABS Nucleated RBC 0 10^3/ul; Eosinophil % 2.6 %; Hematocrit 26 % (35-47); Hemoglobin 8.3 g/dl (12.0-16.0); Lymphocyte % 9.9 %; Mean Corpuscular HGB Conc 32 g/dl (31-36); Mean Corpuscular Hemoglobin 29 pg (27-31); Mean Corpuscular Volume 93 fL (80-97); Mean Platelet Volume 8.2 fL (7.4-10.4); Nucleated Red Blood Cells % 0; Platelet Count 362 10^3/ul (150-450); Red Blood Count 2.83 10^6/ul (4.00-5.40); Red Cell Distribution Width 18 % (10.5-15); White Blood Count 11.8 10^3/ul (3.5-10.8)
[2018-03-18 02:31] LABS: Activated Partial Thrombo Time 34.3 seconds (26.0-36.3); INR 1.97 (0.77-1.02)
[2018-03-18 02:40] LABS: ALT 6 U/L (7-52); AST 6 U/L (13-39); Albumin/Globulin Ratio 0.9 (1-3); Alkaline Phosphatase 79 U/L (34-104); Amylase < 10 U/L (29-103); Anion Gap 6 mmol/L (2-11); BUN/Creatinine Ratio 6.8 (8-20); Blood Urea Nitrogen 35 mg/dL (6-24); C Reactive Protein 52.95 mg/L (<8.01); CO2 Carbon Dioxide 31 mmol/L (22-32); Calcium 8.8 mg/dL (8.6-10.3); Chloride 99 mmol/L (101-111); EGFR Non-African American 9.3 (>60); Globulin 3.2 g/dL (2-4); Glucose 240 mg/dL (70-100); Magnesium 1.8 mg/dL (1.9-2.7); Potassium 4.2 mmol/L (3.5-5.0); Sodium 136 mmol/L (135-145); Total Protein 6.2 g/dL (6.4-8.9)
[2018-03-18] MEDS ORDERED: Levofloxacin 500 MG IVPREMIX(* 500 MG/100 ML BAG IVPB ONE (02:56)
[2018-03-18] MEDS ORDERED: Methadone TAB* 5 MG PO PRN (03:06)
[2018-03-18] MEDS ORDERED: Albuterol HFA INHALER* 8 gm MDI INH PRN (03:06)
[2018-03-18] MEDS ORDERED: Albuterol 2.5 MG/3 ML NEB.SOL* (0.083%) INH PRN (03:06)
[2018-03-18] MEDS ORDERED: Dextrose 50% Syringe 50 ML* 25 GM/50 ML SYRINGE IV PUSH PRN (03:09)
[2018-03-18] MEDS ORDERED: Ondansetron INJ* 2 MG/ML VIAL IV PRN (03:13)
[2018-03-18] MEDS ORDERED: Acetaminophen TAB* 325 MG PO PRN (03:13)
[2018-03-18 03:16] LABS: Urine Appearance Cloudy; Urine Bacteria Absent (Absent); Urine Bilirubin Negative (Negative); Urine Blood Negative (Negative); Urine Color Yellow; Urine Glucose 3+(>=500 mg/dL) (Negative); Urine Ketones Negative (Negative); Urine Nitrite Negative (Negative); Urine Protein 3+(>=500 mg/dL) (Negative); Urine Red Blood Cell Absent (Absent); Urine Urobilinogen Negative (Negative); Urine White Blood Cell Trace(0-5/hpf) (Absent)
--- NOTE | 2018-03-18 03:22 | ADMNOTE ---
Subjective Date of Service: 03/18/18 Interval History: 37 year old Female with history of ESRD on Peritoneal dialysis, diabetes, Coronary artery disease, COPD, chronic hypoxic respiratory failure on 2 Liters nasal canula, who now comes to the emergency room because of shortness of breath and fever. About 5 days ago she developed cough, of yellow colored sputum production, sinus congestion and then yesterday started to develop chills and fever. She was seen in the emergency room earlier yesterday, and subsequently discharged. She now presents with fever, aches, shortness of breath. No chest pain. Family History: Findings - Father: [place] at age 49, grandfather: lung cancer, parents/siblings with diabetes, mother: ovarian cancer Social History: Findings - She lives at home, does not drink alcohol, smokes 1/ 2 pack per day Past Medical History: Findings - End stage renal disease on peritoneal dialysis , coronary artery diseas, melanoma, diabetes on insulin, peripheral arterial disease, chornic hypoxic respiratory failure on home oxygen 2 Liters, Anxiety, depression, COPD, Review of Systems - Measurements Intake and Output: Intake and Output Last 24 Hours 03/15/18 03/16/18 03/17/18 03/18/18 06:59 06:59 06:59 06:59 Weight 210 lb - Review of Systems Constitutional Symptoms: Positive: Weakness, Fever, Other - chills Negative: Weight Loss Dermatology: Positive: Normal HEENT: Negative: Change in Hearing, Vertigo Eyes: Negative: Change in Vision, Eye Pain Thyroid: Negative: Constipation, Palpitations Pulmonary: Positive: Cough, Shortness of Breath, Asthma, Home Oxygen Cardiology: Positive: Shortness of Breath Negative: Chest Pain, Faintness Gastroenterology: Positive: Nausea Negative: Abdominal Pain, Difficulty Swallowing, Heartburn, Constipation Genital - Urinary: Negative: Polyuria, Nocturia Musculoskeletal: Positive: Other - chornic generalized body pain Negative: Joint Pain Endocrinology: Positive: Obesity, Diabetes Mellitus Hematologic/Lymphatic: Positive: Use of Anticoagulant Psychiatry: Negative: Depression, Anxiety Objective Active Medications: Acetaminophen (Tylenol Tab*) 650 mg PO Q6H PRN PRN Reason: FEVER/PAIN Albuterol (Ventolin 2.5 Mg/3 Ml Neb.Gretel*) 2.5 mg INH Q4HR PRN PRN Reason: SOB/WHEEZING Albuterol (Ventolin Hfa Inhaler*) 2 puff INH Q6H PRN PRN Reason: COUGH Aspirin (Aspirin Ec Tab*) 81 mg PO DAILY [facility] Bethanechol Chloride (Urecholine Tab*) 25 mg PO QID [facility] Budesonide/Formoterol Fumarate (Symbicort 160/4.5 (Nf)) 2 puff INH BID NICOLASA; Protocol Calcitriol (Rocaltrol Cap*) 0.25 mcg PO TID [facility] Dextrose (D50w Syringe 50 Ml*) 12.5 gm IV PUSH .FOR FS < 60 - SS PRN PRN Reason: FS < 60 Gabapentin (Neurontin Cap(*)) 200 mg PO TID [facility] Levofloxacin/Dextrose (Levaquin 500 Mg Ivpremix(*)) 500 mg in 100 mls @ 100 mls /hr IVPB ED ONCE ONE Stop: 03/18/18 03:55 Last Admin: 03/18/18 03:06 Dose: 100 mls/hr Insulin Glargine (Lantus(*)) 80 units SUBCUT BEDTIME [facility] Insulin Human Lispro (Humalog*) 0 units SUBCUT ACHS [facility]; Protocol Losartan Potassium (Cozaar Tab*) 100 mg PO DAILY [facility] Methadone HCl (Dolophine Tab*) 5 mg PO Q8HR PRN PRN Reason: PAIN Omeprazole (Prilosec Cap*) 40 mg PO QPM NICOLASA Ondansetron HCl (Zofran Inj*) 4 mg IV Q6H PRN PRN Reason: NAUSEA Sertraline HCl (Zoloft*) 25 mg PO DAILY [facility] Warfarin Sodium (Coumadin Tab(*)) 7.5 mg PO BEDTIME NICOLASA; Protocol Vital Signs - 8 hr 03/18/18 03/18/18 03/18/18 00:26 01:24 01:26 Temperature 98.3 F Pulse Rate 102 102 Respiratory 20 18 Rate Blood Pressure 196/118 (mmHg) O2 Sat by Pulse 96 99 Oximetry 03/18/18 03/18/18 03/18/18 01:28 01:57 02:00 Temperature Pulse Rate 99 82 83 Respiratory Rate Blood Pressure 202/115 156/84 (mmHg) O2 Sat by Pulse 98 99 96 Oximetry 03/18/18 03/18/18 03/18/18 02:27 02:58 03:06 Temperature Pulse Rate 87 Respiratory 18 Rate Blood Pressure 147/75 173/105 (mmHg) O2 Sat by Pulse 98 Oximetry Oxygen Devices in Use Now: Nasal Cannula Appearance: Obese female sitting on ER stretcher in no distress Eyes: PERRLA Ears/Nose/Mouth/Throat: Mucous Membranes Moist Respiratory: - - No tachypnea, no use of accessory muscles, mild rhonchi at the Right lower lobe Cardiovascular: NL Sounds; No Murmurs; No JVD, RRR Abdominal: NL Sounds; No Tenderness; No Distention, No Hepatosplenomegaly Extremities: - - Trace lower extremity edema, Neurological: Alert and Oriented x 3 Result Diagrams: 03/18/18 02:08 03/18/18 02:08 Diagnostic Imaging: CT Chest Without Contrast FINDINGS: Lungs: Minimal patchy ground glass infiltrates bilaterally. Minimal scattered fibro-atelectatic change, greatest in the right middle lobe and lingula. Pleural space: Normal. No pneumothorax. No pleural effusion. Heart: Coronary artery calcifications are present. Aorta: Normal. No aortic aneurysm. Lymph nodes: Small scattered mediastinal lymph nodes which are upper normal. Bones/joints: Unremarkable. No acute fracture. Soft tissues: Unremarkable. IMPRESSION: 1. Minimal scattered fibro-atelectatic change, greatest in the lingula and right middle lobe and minimal patchy ground glass infiltrates, greatest in the lower lobes. 2. Otherwise negative CT chest. CT Abdomen and Pelvis Without Contrast [facility] Patient Name:JULI PERRY MR:[id number] : 1980 size (includes targeted exams where dose is matched to clinical indication); or iterative reconstruction. Coronal and sagittal reformatted images were created and reviewed. COMPARISON: PELV WO CT PELVIS W/O 03/05/2018 10:39 AM FINDINGS: Lower thorax: No acute findings. ABDOMEN: Liver: Normal. No mass. Gallbladder and bile ducts: Normal. No calcified stones. No ductal dilation. Pancreas: Normal. No ductal dilation. Spleen: Normal. No splenomegaly. Adrenals: Normal. No mass. Kidneys and ureters: Normal. No hydronephrosis. Stomach and bowel: There is colonic diverticulosis without evidence of diverticulitis. Appendix: A normal appendix is seen. PELVIS: Bladder: Unremarkable as visualized. Reproductive: Unremarkable as visualized. ABDOMEN and PELVIS: Intraperitoneal space: Mild peritoneal ascites with intraperitoneal dialysis catheter in the pelvis. Bones/joints: No acute fracture. No dislocation. Soft tissues: Unremarkable. Vasculature: There is mild calcification of the abdominal aorta with extension into the iliac arteries. Lymph nodes: Normal. No enlarged lymph nodes. IMPRESSION: 1. Peritoneal dialysis catheter in position with mild free fluid in the abdomen. 2. Colonic diverticulosis without diverticulitis. 3. Otherwise negative CT abdomen/pelvis. There is decreased dermal confluence in the medial right buttocks since 03/05/2018. Assess/Plan/Problems-Billing Assessment: 37 year old Female with ESRD on PD, COPD with home oxygen use, diabetes, peripheral arterial disease here with subjective fever, chills, and cough - Patient Problems (1) Pneumonia Current Visit: Yes Status: Acute Code(s): J18.9 - PNEUMONIA, UNSPECIFIED ORGANISM SNOMED Code(s): 470788491 Comment: CT shows inflitrate, will start on zosyn, ordered sputum culture. Blood culture ordered by ED. frequent hospital visits, so opting to give zosyn. (2) COPD (chronic obstructive pulmonary disease) Current Visit: No Status: Chronic Code(s): J44.9 - CHRONIC OBSTRUCTIVE PULMONARY DISEASE, UNSPECIFIED SNOMED Code(s): 71452179 Comment: Stable. continue home regimen (3) Essential hypertension Current Visit: No Status: Acute Code(s): I10 - ESSENTIAL (PRIMARY) HYPERTENSION SNOMED Code(s): 16742072 Comment: uncontrolled. continue losartan 100mg from home added coreg 3.125mg BID. 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 (5) PAD (peripheral artery disease) Current Visit: No Status: Chronic Code(s): I73.9 - PERIPHERAL VASCULAR DISEASE, UNSPECIFIED SNOMED Code(s): 594242586 Comment: Continue coumadin. (6) ESRD on peritoneal dialysis Current Visit: Yes Status: Chronic Code(s): N18.6 - END STAGE RENAL DISEASE ; Z99.2 - DEPENDENCE ON RENAL DIALYSIS SNOMED Code(s): 79870963 Comment: on peritoneal dialysis will need to have nephrology consult. Medications/Allergies Medications: Home Medications Medication Instructions Recorded Confirmed Type Omeprazole CAP (NF) [Prilosec CAP* 40 mg PO QPM 10/20/15 03/18/18 History 20 MG] Albuterol HFA INHALER* [Ventolin 2 puff INH Q6H PRN 05/17/16 03/18/18 History HFA Inhaler*] Gabapentin CAP(*) [Neurontin 100 200 mg PO TID 01/11/17 03/18/18 History mg CAP(*)] Albuterol 2.5MG/3ML (0.083%)* 2.5 mg INH Q4HR PRN 06/24/17 03/18/18 History [Ventolin 2.5 MG/3 ML NEB.GRETEL*] Insulin ASPART (NF) [Novolog (NF)] 0 - 10 units SUBCUT AC PRN 06/24/17 03/18/18 History Insulin GLARGINE(*) [Lantus(*)] 80 units SUBCUT BEDTIME 06/24/17 03/18/18 History Promethazine TAB* [Phenergan Tab*] 25 mg PO Q8H PRN 06/24/17 03/18/18 History Losartan TAB* [Cozaar TAB*] 100 mg PO DAILY 01/08/18 03/18/18 History Bethanechol TAB* [Urecholine TAB*] 25 mg PO QID 02/20/18 03/18/18 History Calcitriol CAP* [Rocaltrol CAP*] 0.25 mcg PO TID 03/01/18 03/18/18 History Warfarin TAB(*) [Coumadin TAB(*)] 7.5 mg PO BEDTIME tab 03/05/18 03/18/18 Rx Amoxicillin/Clavulanate TAB* 875 mg PO BID 03/17/18 03/18/18 History [Augmentin TAB 875*] Aspirin EC TAB* [Ecotrin EC Low 81 mg PO DAILY 03/17/18 03/18/18 History Dose 81 MG*] Budesonide/Formote 160/4.5(NF) 2 puff INH BID 03/17/18 03/18/18 History [Symbicort 160/4.5 (NF)] Methadone TAB* [Dolophine TAB*] 5 mg PO Q8HR PRN 03/17/18 03/18/18 History [place]-3 Fatty Acids (Nf) [Fish Oil 4,000 mg PO DAILY 03/17/18 03/18/18 History (NF)] Sertraline* [Zoloft*] 25 mg PO DAILY 03/17/18 03/18/18 History Allergies/Adverse Reactions: Allergies Allergy/AdvReac Type Severity Reaction Status Date / Time Adhesive Tape [Plastic Tape] Allergy Mild Blisters Verified 03/17/18 11:52 erythromycin base Allergy See Comment Verified 03/17/18 11:52 heparin Allergy See Comment Verified 03/17/18 11:52 metoclopramide [From Reglan] Allergy Hives Verified 03/17/18 11:52 metronidazole [From Flagyl] Allergy Nausea And Verified 03/17/18 11:52 Vomiting niacin Allergy Rash Verified 03/17/18 11:52 ropinirole [From Requip] Allergy Hives Verified 03/17/18 11:52 Sulfa (Sulfonamide Allergy Vomiting Verified 03/17/18 11:52 Antibiotics)
[2018-03-18] MEDS ORDERED: Morphine INJ* 2 MG/ML 1 ML SYRINGE (TWO MG - NEW SYRINGE VERSION) IV ONE (06:10)
[2018-03-18] MEDS ORDERED: Insulin LISPRO* 1 UNITS UNIT SUBCUT SCH (07:30)
[2018-03-18 08:13] VITALS: BP 137/47
[2018-03-18] MEDS ORDERED: Bethanechol TAB* 25 MG PO SCH (09:00)
[2018-03-18] MEDS ORDERED: Aspirin EC TAB* 81 MG TAB.EC PO SCH (09:00)
[2018-03-18] MEDS ORDERED: Gabapentin CAP(*) 100 MG PO SCH (09:00)
[2018-03-18] MEDS ORDERED: Calcitriol CAP* 0.25 MCG PO SCH (09:00)
[2018-03-18] MEDS ORDERED: Sertraline* 25 MG TAB PO SCH (09:00)
[2018-03-18] MEDS ORDERED: Losartan TAB* 25 MG PO SCH (09:00)
[2018-03-18] MEDS ORDERED: Mometasone/Formoter 200/5 MDI INH SCH (09:00)
[2018-03-18] MEDS ORDERED: Carvedilol TAB* 3.125 MG PO SCH (09:00)
[2018-03-18] MEDS ORDERED: Piperacillin/Tazobac ADVAN(*) 2.25 GM in NS 0.9% 100 ML* 100 ML IVPB SCH (09:00)
[2018-03-18] MEDS ORDERED: predniSONE TAB* 20 MG PO ONE (11:30)
--- NOTE | 2018-03-18 12:47 | DS ---
CC: Aishwarya Solis MD; Calrice Oseguera MD * DISCHARGE SUMMARY: DATE OF ADMISSION: 03/18/18 DATE OF DISCHARGE: 03/18/18 PRIMARY CARE PHYSICIAN: Aishwarya Solis MD. LENS SILVERER: Clarice Oseguera MD. PRINCIPAL DIAGNOSIS: Community acquired pneumonia. SECONDARY DIAGNOSES: 1. Chronic obstructive pulmonary disease exacerbation. 2. Endstage renal disease, on peritoneal dialysis. 3. Diabetes, on insulin. 4. Coronary artery disease. 5. Chronic obstructive pulmonary disease with chronic hypoxic respiratory failure on 2 L chronically. MEDICATIONS: New medication prescribed on discharge: 1. Levaquin 500 mg every 48 hours (First dose on 03/18) - duration 7 days - to start on 03/20 2. Prednisone 40 mg p.o. daily x4 days and 20 mg p.o. daily x3 days. Remaining medications are unchanged as follows: 1. Bethanechol 25 mg p.o. q.i.d. 2. Aspirin 81 mg daily. 3. Albuterol inhaler 2 puffs every 6 hours as needed. 4. Albuterol nebulizer every 4 hours as needed. 5. Gabapentin 200 mg p.o. t.i.d. 6. Calcitriol 0.25 mcg p.o. t.i.d. 7. Symbicort 2 puffs inhaled b.i.d. 8. Phenergan 25 mg every hour as needed. 9. Omeprazole 40 mg daily. 10. [place]-3 fatty acid 4000 mg daily. 11. Methadone 5 mg p.o. every 8 hours as needed. 12. Losartan 100 mg p.o. daily. 13. Lantus 80 units at bedtime. 14. NovoLog sliding scale. 15. Warfarin 7.5 mg p.o. at bedtime. 16. Zoloft 25 mg p.o. daily. HOSPITAL COURSE: This is a 37-year-old female with multiple comorbidities with frequent admissions and emergency room visits who presents to the emergency room with fevers, chills, shortness of breath, and cough. The patient was found to have minimal scattered fibroatelectatic change, greatest in the lingula and right middle lobe and minimal patchy ground-glass infiltrates greatest in the lower lobe on her CAT of her chest. She also had an abdominal and pelvis CAT scan that showed peritoneal dialysis catheter in position with mild fluid in the abdomen, colonic diverticulosis without diverticulitis. The patient on admission had a mildly elevated white count of 11.8, H and H appeared at baseline, chronic anemia, INR is 1.97, electrolytes unremarkable and mildly elevated CRP of 53. The patient states she went to her primary care doctor for a similar presentation of upper respiratory tract infection and was started on Augmentin on the 18 and she states she was not getting better with that. On admission, the patient was started on Zosyn. On day of discharge, this morning, the patient wants to leave against medical advice. She states she feels better. She wants to go home. Her breathing feels back at baseline. She is still coughing somewhat but significantly improved. She is ambulating with the walker and she is tolerating p.o. No nausea, vomiting, or chest pain. Her boyfriend is sleeping in the bed with her, but did not wake up during our entire encounter. Her exam shows some rhonchi in the left with expiratory wheezing bilaterally. Her vitals, temp 98, pulse rate 82, respiratory rate 18, oxygen saturation 95% on 2 L, blood pressure 137/47. I discussed, she will benefit from staying, but she is insisting that she has help at home; her boyfriend, her mother, and she feels back at her baseline regarding respiratory status. She has seen Dr. Oseguera in the past, but has not seen her in the long time. I recommended that she plug back into her care. The patient is going to be discharged to home under the care of her boyfriend and her mother. I suspect that she is having an underlying COPD exacerbation as well, I am going to give her 40 mg of prednisone now and as mentioned, the taper as well as transitioning over to levaquin, renally dosed. The patient is aware and agreeable to the discharge recommendations. She is agreeable to returning if her respiratory status worsens and to follow up with Dr. Oseguera and her primary care doctor. PATIENT TIME: Greater than 30 minutes was spent doing discharge summary, more than half the time was spent in direct patient contact. [id number]/[facility] #: [id number] [facility]
[2018-03-18] MEDS ORDERED: Warfarin TAB(*) 7.5 MG PO SCH (17:00)
[2018-03-18] MEDS ORDERED: Pantoprazole TAB * 40 MG TAB PO SCH (18:00)
[2018-03-18] MEDS ORDERED: Insulin GLARGINE(*) 1 UNITS UNIT SUBCUT SCH (21:00)
== END 2018-03-18 12:55 | disposition home or self-care (01) | DRG 139 ==
LOC: ED 00:19 → MED 03:11
PROVIDERS: ADMIT Internal Medicine; ATTEND Pediatrics
DX: J18.9 Pneumonia, unspecified organism (principal); N18.6 End stage renal disease; J96.11 Chronic respiratory failure with hypoxia; I13.11 Hypertensive heart and chronic kidney disease without heart failure, with stage 5 chronic kidney disease, or end stage renal disease; J44.1 Chronic obstructive pulmonary disease with (acute) exacerbation; Z99.81 Dependence on supplemental oxygen; E11.22 Type 2 diabetes mellitus with diabetic chronic kidney disease; E11.51 Type 2 diabetes mellitus with diabetic peripheral angiopathy without gangrene; I25.10 Atherosclerotic heart disease of native coronary artery without angina pectoris; F17.210 Nicotine dependence, cigarettes, uncomplicated; F41.9 Anxiety disorder, unspecified; F32.9 Major depressive disorder, single episode, unspecified; K57.30 Diverticulosis of large intestine without perforation or abscess without bleeding; Z99.2 Dependence on renal dialysis; Z79.4 Long term (current) use of insulin; Z82.49 Family history of ischemic heart disease and other diseases of the circulatory system; Z83.3 Family history of diabetes mellitus; Z80.1 Family history of malignant neoplasm of trachea, bronchus and lung; Z80.41 Family history of malignant neoplasm of ovary; Z79.01 Long term (current) use of anticoagulants; Z79.1 Long term (current) use of non-steroidal anti-inflammatories (NSAID); Z79.82 Long term (current) use of aspirin; Z79.51 Long term (current) use of inhaled steroids; Z79.899 Other long term (current) drug therapy; Z88.1 Allergy status to other antibiotic agents; Z88.2 Allergy status to sulfonamides; Z88.8 Allergy status to other drugs, medicaments and biological substances; Z91.048 Other nonmedicinal substance allergy status; Z85.820 Personal history of malignant melanoma of skin; Z85.89 Personal history of malignant neoplasm of other organs and systems
CPT/HCPCS: 36415; 71250; 74176; 80053; 81003; 82150; 83605; 83690; 83735; 85025; 85610; 85730; 86140; 87040; 94640; 99284; 99406; A9270-GY; J1956; J2270; J2405; J2543; J7512

== ENCOUNTER 2018-03-20 01:45 | Inpatient (IN) | payer OTHER ==
[2018-03-20] MEDS ORDERED: Ibuprofen TAB* 200 MG PO ONE (02:21)
[2018-03-20] MEDS ORDERED: Acetaminophen TAB* 325 MG PO ONE (02:21)
[2018-03-20] MEDS ORDERED: NS 0.9% 250 ML* 250 ML IV ONE (02:22)
--- NOTE | 2018-03-20 02:26 | ED ---
Influenza-Like Illness - HPI Summary HPI Summary: Pt is a 37 y/o F presenting to the ED with a chief complaint of nausea. The pt reports diaphoresis, shaking, nausea, abd pain, and fever, and requests further evaluation. Patient was admitted 122 and left shortly after from the hospital. She had a CT scan which showed groundglass infiltrates and she has been maintained on outpatient Levaquin. She has only received 1 dose. Her blood cultures have been negative. She has a history of end-stage renal disease on dialysis receiving peritoneal dialysis every 6 hours at home. She reports MAXIMUM TEMPERATURE of 100.4. There is mild cough, congestion and runny nose with mild chronic abdominal pain. Her dialysis fluid has been clear. Previous cultures from 03/18/2018 and 03/17/2018 were negative. - History of Current Complaint Chief Complaint: EDGeneral Time Seen by Provider: 03/20/18 02:08 Hx Obtained From: Patient Onset/Duration: Sudden Onset, Lasting Weeks, Still Present Severity: Mild Associated Signs & Symptoms: Fever, T Max - 100.4, F/C - F, Vomiting - Allergy/Home Medications Allergies/Adverse Reactions: Allergies Allergy/AdvReac Type Severity Reaction Status Date / Time Adhesive Tape [Plastic Tape] Allergy Mild Blisters Verified 03/20/18 01:51 doxycycline Allergy Unknown Verified 03/20/18 04:22 Reaction Details erythromycin base Allergy See Comment Verified 03/20/18 01:51 heparin Allergy See Comment Verified 03/20/18 01:51 metoclopramide [From Reglan] Allergy Hives Verified 03/20/18 01:51 metronidazole [From Flagyl] Allergy Nausea And Verified 03/20/18 01:51 Vomiting niacin Allergy Rash Verified 03/20/18 01:51 ropinirole [From Requip] Allergy Hives Verified 03/20/18 01:51 Sulfa (Sulfonamide Allergy Vomiting Verified 03/20/18 01:51 Antibiotics) PMH/Surg Hx/FS Hx/Imm Hx Previously Healthy: No Endocrine/Hematology History: Reports: Hx Anticoagulant Therapy - Aspirin., Hx Blood Transfusions, Hx Diabetes, Hx Thyroid Disease - nodule, Hx Anemia - hx of - reports had tranfusion in 2013 after mi Cardiovascular History: Reports: Hx Angina, Hx Cardiac Arrest, Hx Cardiomegaly, Hx Coronary Artery Disease, Hx Deep Vein Thrombosis, Hx Hypercholesterolemia, Hx Hypertension, Hx Myocardial Infarction, Hx Peripheral Vascular Disease, Other Cardiovascular Problems/Disorders Denies: Hx Congestive Heart Failure, Hx Pacemaker/ICD, Hx Valvular Heart Disease Respiratory History: Reports: Hx Asthma, Hx Chronic Obstructive Pulmonary Disease (COPD) - smoker, Hx Pneumonia, Hx Sleep Apnea, Other Respiratory Problems/Disorders - acute respipatory failure with hypoxia - jan 2016 Denies: Hx Lung Cancer, Hx Pulmonary Embolism - pt says no, although documented in [facility] GI History: Reports: Hx Gall Bladder Disease, Hx Gastroesophageal Reflux Disease , Other GI Disorders - GASTROPARESIS - TAKING OMEPRAZOLE, reglan and zofran Denies: Hx Gastrointestinal Bleed, Hx Ulcer, Hx Urosepsis History: Reports: Hx Acute Renal Failure, Hx Chronic Renal Failure - ESRD on PD, Hx Dialysis - PERITONEAL, Hx Kidney Stones, Hx Renal Disease - ESRD on home peritoneal dialysis , Other Problems/Disorders Musculoskeletal History: Reports: Hx Arthritis - back, hips, Hx Back Problems - Sciatica and Herniated L3 disk, Other Musculoskeletal History - partial amputation of toes/foot Sensory History: Reports: Hx Contacts or Glasses, Hx Eye Prosthesis - left, 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, very limited, Hx Vision Problem Neurological History: Reports: Other Neuro Impairments/Disorders - neuropathy Denies: Hx Transient Ischemic Attacks (TIA) Psychiatric History: Reports: Hx Anxiety, Hx Depression, Hx Bipolar Disorder Denies: Hx Eating Disorder, Hx Panic Disorder, Hx Schizophrenia, Hx of Violent Episodes Against Others - Cancer History Cancer Type, 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 MELANOMA REMOVED FROM [facility] 2012 (PROCEDURE DONE 4X);. CARDIAC CATH 2013 - NO STENTS;. LEFT WRIST FISTULA PLACEMENT ([facility]) 2013;. HEMODIALYSIS CATH RIGHT CHEST WALL 2013;. PERITONEAL DIALYSIS CATH 03/2014;. [place] C[place] [facility] [place]AT [place] [facility] [place]. PLACEMENT RIGHT JUGULAR TESIO HEMODIALYSIS CATHETER [facility] [place];. REMOVAL OF JUGULAR CATH - SEPT 2016. CARDIAC CATH - stentsx2 right leg. PARTIAL AMPUTATION RIGHT TOES 06/2016. RIGHT TOES ALL REMOVED Hx Anesthesia Reactions: No - Immunization History Date of Tetanus Vaccine: utd Date of Influenza Vaccine: 11/2016 Infectious Disease History: No Infectious Disease History: Reports: Hx of Known/Suspected MRSA - MRSA R 1st toe , History Other Infectious Disease - GANGRENE Denies: Hx Clostridium Difficile, Hx Hepatitis, Hx Human Immunodeficiency Virus (HIV), Hx Shingles, Hx Tuberculosis, Traveled Outside the [place] in Last 30 Days - Family History Known Family History: Positive: Cardiac Disease - father NH at 42 y/o, Hypertension, Other - Positive for bipolar and depression. Completed suicide to sister. - Social History Alcohol Use: None Hx Substance Use: No Substance Use Type: Reports: None Substance Use Comment - Amount & Last Used: methadone Hx Tobacco Use: Yes Smoking Status (MU): Heavy Every Day Tobacco Smoker Type: Cigarettes Amount Used/How Often: 1 PPD Length of Time of Smoking/Using Tobacco: 20 YEARS Have You Smoked in the Last Year: Yes Review of Systems Positive: Fever, Chills, Skin Diaphoresis Positive: Abdominal Pain, Nausea All Other Systems Reviewed And Are Negative: Yes Physical Exam - Summary Physical Exam Summary: Appearance: Well appearing, no pain distress. Skin: warm, lightly diaphoretic, reflects adequate perfusion Head/face: normal Eyes: EOMI, HILLARY ENT: mucous membranes moist, no nasal discharge Neck: supple, non-tender Respiratory: wheezes in bilateral bases, breath sounds present, no crackles Cardiovascular: tachycardic, pulses symmetrical Abdomen: non-tender, soft, peritoneal dialysis catheter Bowel Sounds: present Musculoskeletal: amputation toes of R foot, strength/ROM intact Neuro: normal, sensory motor intact, A&Ox3 Triage Information Reviewed: Yes Vital Signs On Initial Exam: Initial Vitals Temp Pulse Resp BP Pulse Ox 96.3 F 111 20 194/95 96 03/20/18 01:48 03/20/18 01:48 03/20/18 01:48 03/20/18 01:48 03/20/18 01:48 Vital Signs Reviewed: Yes Diagnostics - Vital Signs Vital Signs Temp Pulse Resp BP Pulse Ox 03/20/18 02:06 114 176/83 97 03/20/18 02:05 116 95 03/20/18 01:48 96.3 F 111 20 194/95 96 - Laboratory Result Diagrams: 03/20/18 03:00 03/20/18 02:54 Lab Statement: Any lab studies that have been ordered have been reviewed, and results considered in the medical decision making process. - Radiology Chest x-ray Radiology Interpretation Completed By: ED Physician Summary of Radiographic Findings: No acute findings. Pending official radiology report. Flu Symptom Course/Dx - Course Course Of Treatment: Nurse's notes reviewed. Patient has been in and out of the ER in the hospital a lot as of late. She is well-known to me in the ER. She has a sepsis syndrome with criteria for severe sepsis resulting from pneumonia confirmed with CT scan 2 days ago. She was admitted briefly and decided to leave and go home. She presents with Sirs criteria and had been on outpatient Levaquin. She likely was underdosed given her renal dialysis. She was given Rocephin, Zithromax and a small dose of IV fluids given her end-stage renal disease. She is known to have poorly controlled diabetes and today is hyperglycemic with mild DKA. She was given insulin bolus in addition to the fluids but we will not put her on a drip as of this point in time. She is also well-known to the hospitalist who will readmit her. I had a conversation about her leaving and suggested that she stay until she is fully well. At this point she does pledged to do that. She is improved here with breathing treatments, treatment of her pain, nausea and IV antibiotics with fluids. - Diagnoses Provider Diagnoses: Community acquired pneumonia, Severe sepsis, DKA (diabetic ketoacidoses), COPD exacerbation Critical Care Time: 30-74 min - CCT is EXCLUSIVE of separately billable procedures Discharge - Sign-Out/Discharge Documenting (check all that apply): Patient Departure - admit - Discharge Plan Condition: Fair Disposition: ADMITTED TO [facility] - Billing Disposition and Condition Condition: FAIR Disposition: Admitted to [facility] - Attestation Statements Document Initiated by Scribe: Yes Documenting Scribe: Elena Hernandez Provider For Whom Scribe is Documenting (Include Credential): Yamil Garcia MD. Scribe Attestation: Elena Palacio, scribed for Yamil Garcia MD. on 03/20/18 at 0519. Scribe Documentation Reviewed: Yes Provider Attestation: The documentation as recorded by the scribe, Elena Hernandez accurately reflects the service I personally performed and the decisions made by me, Yamil Garcia MD. Status of Scribe Document: Viewed Consult Consult: [id number] - Spoke with Dr. Trujillo about the pt's condition. She will be admitted for further evaluation and testing.
[2018-03-20 02:45] LABS: Influenza A Molecular NEGATIVE (Negative); Influenza B Molecular NEGATIVE (Negative)
[2018-03-20] MEDS ORDERED: methylPREDNISolone 125 MG* 2 ML VIAL IV ONE (03:12)
[2018-03-20] MEDS ORDERED: Ondansetron INJ* 2 MG/ML VIAL IV ONE (03:12)
[2018-03-20] MEDS ORDERED: Morphine VIAL* 4 MG/ML VIAL (1 ml vial) IV ONE (03:12)
[2018-03-20 03:14] LABS: Albumin 3.1 g/dL (3.2-5.2); Calcium 8.9 mg/dL (8.6-10.3); Potassium 4.6 mmol/L (3.5-5.0); Total Bilirubin 0.2 mg/dL (0.2-1.0)
[2018-03-20 03:20] LABS: Albumin/Globulin Ratio 0.9 (1-3); BUN/Creatinine Ratio 7.1 (8-20); EGFR African American 10.2 (>60); EGFR Non-African American 8.4 (>60); Globulin 3.6 g/dL (2-4); Total Protein 6.7 g/dL (6.4-8.9)
[2018-03-20] MEDS ORDERED: Insulin REGULAR(*) 1 UNITS UNIT IV PUSH ONE (03:32)
[2018-03-20 03:37] LABS: Hematocrit 28 % (35-47); Hemoglobin 9.1 g/dl (12.0-16.0); Mean Corpuscular HGB Conc 33 g/dl (31-36); Mean Corpuscular Hemoglobin 30 pg (27-31); Mean Corpuscular Volume 92 fL (80-97); Mean Platelet Volume 8.4 fL (7.4-10.4); Platelet Count 421 10^3/ul (150-450); Red Blood Count 3.01 10^6/ul (4.00-5.40); Red Cell Distribution Width 18 % (10.5-15); White Blood Count 22.2 10^3/ul (3.5-10.8)
[2018-03-20 03:48] LABS: ABS Basophils 0.1 10^3/ul (0-0.2); ABS Eosinophils 0 10^3/ul (0-0.6); ABS Lymphocytes 0.5 10^3/ul (1.0-4.8); ABS Monocytes 0.3 10^3/ul (0-0.8); ABS Neutrophils 21.3 10^3/ul (1.5-7.7); ABS Nucleated RBC 0 10^3/ul; Eosinophil % 0 %; Lymphocyte % 2.4 %; Nucleated Red Blood Cells % 0
[2018-03-20] MEDS ORDERED: Albuterol HFA INHALER* 8 gm MDI INH PRN (04:39)
[2018-03-20] MEDS ORDERED: Morphine INJ* 2 MG/ML 1 ML SYRINGE (TWO MG - NEW SYRINGE VERSION) IV PRN (04:43)
[2018-03-20] MEDS ORDERED: NS 0.9% 1000 ML** 1,000 ML IV SCH (04:45)
[2018-03-20] MEDS ORDERED: Ondansetron INJ* 2 MG/ML VIAL ONE (04:47)
[2018-03-20] MEDS ORDERED: Morphine VIAL* 4 MG/ML VIAL (1 ml vial) ONE (04:47)
[2018-03-20] MEDS: Ondansetron INJ* 2 MG/ML VIAL IV PRN ×2 (04:52→14:15)
--- NOTE | 2018-03-20 04:55 | HP ---
History of Present Illness - History of Present Illness Reason for Visit: Fever, chills History of Present Illness: 37 year old Female with history of COPD, chronic hypoxic respiratory failure on O2 at home, Diabetes on insulin, ESRD on Peritnoeal dialysis who presents to the emergency room because of fever, chills, and sweats. She was recently discharge home with diagnosis of pneumonia with renal dose levaquin. She has been having cough with yellow colored sputum production. Chest pain with cough. She has chronic abdominal pain with nausea and vomiting- she has them right now but unchanged from baseline. Fever at home 100.5F. - Past Medical History Cardiac: CAD, Other - Peripheral vascular disease Pulmonary: COPD [employer]: Peripheral neuropathy Gastrointestinal: GERD, Other - gastroparesis Psych: Anxiety, Depression Renal/: Other - ESRD on Peritoneal dialysis - Past Family History Family History: Cancer - Lung cancer, CAD - Past Social History Smoke: <1 pack per day Alcohol: None Lives: With Family Review of Systems - Review of Systems Constitutional: Positive: Fever, Chills, Sweats, Malaise Eyes: Negative: Vision Change, Redness ENT: Negative: Ear Discharge, Nose Congestion, Throat Pain, Throat Swelling Respiratory: Positive: Shortness of Breath, Pleuritic Pain, Sputum, Wheezing Cardiovascular: Positive: Chest Pain, Edema. Negative: Palpitations Gastrointestinal: Positive: Nausea, Vomiting, Abdominal Pain. Negative: Diarrhea, Constipation Genitourinary: Positive: Other - does not make urine, dialysis patient. Neurological: Positive: Other - No headaches. Negative: Weakness, Numbness - Medications/Allergies Allergies/Adverse Reactions: Allergies Allergy/AdvReac Type Severity Reaction Status Date / Time Adhesive Tape [Plastic Tape] Allergy Mild Blisters Verified 03/20/18 01:51 doxycycline Allergy Unknown Verified 03/20/18 04:22 Reaction Details erythromycin base Allergy See Comment Verified 03/20/18 01:51 heparin Allergy See Comment Verified 03/20/18 01:51 metoclopramide [From Reglan] Allergy Hives Verified 03/20/18 01:51 metronidazole [From Flagyl] Allergy Nausea And Verified 03/20/18 01:51 Vomiting niacin Allergy Rash Verified 03/20/18 01:51 ropinirole [From Requip] Allergy Hives Verified 03/20/18 01:51 Sulfa (Sulfonamide Allergy Vomiting Verified 03/20/18 01:51 Antibiotics) Medications: Current Medications Albuterol (Ventolin 2.5 Mg/3 Ml Neb.Gretel*) 2.5 mg INH Q4HR PRN PRN Reason: SOB/WHEEZING Albuterol (Ventolin Hfa Inhaler*) 2 puff INH Q6H PRN PRN Reason: COUGH Aspirin (Aspirin Ec Tab*) 81 mg PO DAILY [facility] Bethanechol Chloride (Urecholine Tab*) 25 mg PO QID [facility] Budesonide/Formoterol Fumarate (Symbicort 160/4.5 (Nf)) 2 puff INH BID [facility]; Protocol Calcitriol (Rocaltrol Cap*) 0.25 mcg PO TID [facility] Dextrose (D50w Syringe 50 Ml*) 12.5 gm IV PUSH .FOR FS < 60 - SS PRN PRN Reason: FS < 60 Gabapentin (Neurontin Cap(*)) 200 mg PO TID [facility] Sodium Chloride (Ns 0.9% 1000 Ml*) 1,000 mls @ 75 mls/hr IV PER RATE [facility] Piperacillin Sod/Tazobactam (Sod 2.25 gm/ Sodium Chloride) 100 mls @ 25 mls/hr IVPB Q12H [facility] Insulin Glargine (Lantus(*)) 80 units SUBCUT BEDTIME [facility] Insulin Human Lispro (Humalog*) 0 units SUBCUT AC [facility]; Protocol Losartan Potassium (Cozaar Tab*) 100 mg PO DAILY [facility] Methadone HCl (Dolophine Tab*) 5 mg PO Q8HR PRN PRN Reason: PAIN Morphine Sulfate (Morphine Inj ((Syringe))*) 2 mg IV Q6H PRN PRN Reason: PAIN - MILD Omeprazole (Prilosec Cap*) 40 mg PO QPM [facility] Ondansetron HCl (Zofran Inj*) 4 mg IV Q6H PRN PRN Reason: NAUSEA Prednisone (Deltasone Tab*) 40 mg PO DAILY [facility] Promethazine HCl (Phenergan Tab*) 25 mg PO Q8H PRN PRN Reason: NAUSEA Sertraline HCl (Zoloft*) 25 mg PO DAILY [facility] Warfarin Sodium (Coumadin Tab(*)) 7.5 mg PO BEDTIME [facility]; Protocol Exam - Exam Vital Signs: Vital Signs (72 hours) 03/20/18 03/20/18 03/20/18 01:48 02:05 02:06 Temperature 96.3 F Pulse Rate 111 116 114 Respiratory 20 Rate Blood Pressure 194/95 176/83 (mmHg) O2 Sat by Pulse 96 95 97 Oximetry 03/20/18 03/20/18 03/20/18 02:23 03:00 03:25 Temperature 98.1 F Pulse Rate 103 Respiratory 20 Rate Blood Pressure (mmHg) O2 Sat by Pulse 99 Oximetry 03/20/18 03:35 Temperature Pulse Rate 97 Respiratory Rate Blood Pressure 139/86 (mmHg) O2 Sat by Pulse 98 Oximetry General: Alert, Oriented x3, Cooperative, No acute distress, Other - obese female lying in ED stretcher HEENT: Atraumatic, PERRLA, EOMI, Mucous membr. moist/pink Lungs: Other - Mild tachypnea, no use of accessory muscles, moderate wheezing. Cardiovascular: Regular rate, Normal S1, Normal S2, No murmurs, Other - No chest wall tenderness. Abdomen: Normal bowel sounds, Soft, No masses, Other - non-distended, surgical scars noted, minimal tenderness Extremities: No clubbing, No edema, Normal pulses, No tenderness/swelling, Other Neurological: Normal speech, Strength at 5/5 X4 ext, Sensation intact, Cranial nerves 3-12 NL, Reflexes 2+ Psych/Mental Status: Mood NL Assessment/Plan - Assessment/Plan Assessment: 1. Pneumonia: She is frequently in the hospital, will treat with zosyn. Blood Cultures from few days ago are negative. negative for influenza, will get sputum culture. 2. Lactic acidosis: due to infection, IV hydration 3. ESRD: on Peritoneal dialysis: will need to consult nephrology for resuming of PD. 4. Chronic hypoxic respiratory failure with COPD with mild exacerbation: prednisone 40mg daily started, continue supplemental O2, duonebs, and home medications. 5. Type II DM: resume home insulin regimen. 6. Peripheral arterial disease: continue coumadin, recheck INR 7. Chronic pain syndrome: on methadone, PRN morphine, 8. DVT PPX: on coumadin. Medications/Allergies Medications: Home Medications Medication Instructions Recorded Confirmed Type Omeprazole CAP (NF) [Prilosec CAP* 40 mg PO QPM 10/20/15 03/20/18 History 20 MG] Albuterol HFA INHALER* [Ventolin 2 puff INH Q6H PRN 05/17/16 03/20/18 History HFA Inhaler*] Gabapentin CAP(*) [Neurontin 100 200 mg PO TID 01/11/17 03/20/18 History mg CAP(*)] Albuterol 2.5MG/3ML (0.083%)* 2.5 mg INH Q4HR PRN 06/24/17 03/20/18 History [Ventolin 2.5 MG/3 ML NEB.GRETEL*] Insulin ASPART (NF) [Novolog (NF)] 0 - 10 units SUBCUT AC PRN 06/24/17 03/20/18 History Insulin GLARGINE(*) [Lantus(*)] 80 units SUBCUT BEDTIME 06/24/17 03/20/18 History Promethazine TAB* [Phenergan Tab*] 25 mg PO Q8H PRN 06/24/17 03/20/18 History Losartan TAB* [Cozaar TAB*] 100 mg PO DAILY 01/08/18 03/20/18 History Bethanechol TAB* [Urecholine TAB*] 25 mg PO QID 02/20/18 03/20/18 History Calcitriol CAP* [Rocaltrol CAP*] 0.25 mcg PO TID 03/01/18 03/20/18 History Warfarin TAB(*) [Coumadin TAB(*)] 7.5 mg PO BEDTIME tab 03/05/18 03/20/18 Rx Aspirin EC TAB* [Ecotrin EC Low 81 mg PO DAILY 03/17/18 03/20/18 History Dose 81 MG*] Budesonide/Formote 160/4.5(NF) 2 puff INH BID 03/17/18 03/20/18 History [Symbicort 160/4.5 (NF)] Methadone TAB* [Dolophine TAB*] 5 mg PO Q8HR PRN 03/17/18 03/20/18 History Sertraline* [Zoloft*] 25 mg PO DAILY 03/17/18 03/20/18 History Levofloxacin TAB* [Levaquin TAB*] 500 mg PO DAILY #3 tab 03/18/18 03/20/18 Rx predniSONE [Prednisone 20 MG TAB] 20 mg PO DAILY #22 tablet 03/18/18 03/20/18 Rx Allergies/Adverse Reactions: Allergies Allergy/AdvReac Type Severity Reaction Status Date / Time Adhesive Tape [Plastic Tape] Allergy Mild Blisters Verified 03/20/18 01:51 doxycycline Allergy Unknown Verified 03/20/18 04:22 Reaction Details erythromycin base Allergy See Comment Verified 03/20/18 01:51 heparin Allergy See Comment Verified 03/20/18 01:51 metoclopramide [From Reglan] Allergy Hives Verified 03/20/18 01:51 metronidazole [From Flagyl] Allergy Nausea And Verified 03/20/18 01:51 Vomiting niacin Allergy Rash Verified 03/20/18 01:51 ropinirole [From Requip] Allergy Hives Verified 03/20/18 01:51 Sulfa (Sulfonamide Allergy Vomiting Verified 03/20/18 01:51 Antibiotics) Objective Allergies Allergy/AdvReac Type Severity Reaction Status Date / Time Adhesive Tape [Plastic Tape] Allergy Mild Blisters Verified 03/20/18 01:51 doxycycline Allergy Unknown Verified 03/20/18 04:22 Reaction Details erythromycin base Allergy See Comment Verified 03/20/18 01:51 heparin Allergy See Comment Verified 03/20/18 01:51 metoclopramide [From Reglan] Allergy Hives Verified 03/20/18 01:51 metronidazole [From Flagyl] Allergy Nausea And Verified 03/20/18 01:51 Vomiting niacin Allergy Rash Verified 03/20/18 01:51 ropinirole [From Requip] Allergy Hives Verified 03/20/18 01:51 Sulfa (Sulfonamide Allergy Vomiting Verified 03/20/18 01:51 Antibiotics) Home Medications Medication Instructions Recorded Confirmed Type Omeprazole CAP (NF) [Prilosec CAP* 40 mg PO QPM 10/20/15 03/20/18 History 20 MG] Albuterol HFA INHALER* [Ventolin 2 puff INH Q6H PRN 05/17/16 03/20/18 History HFA Inhaler*] Gabapentin CAP(*) [Neurontin 100 200 mg PO TID 01/11/17 03/20/18 History mg CAP(*)] Albuterol 2.5MG/3ML (0.083%)* 2.5 mg INH Q4HR PRN 06/24/17 03/20/18 History [Ventolin 2.5 MG/3 ML NEB.GRETEL*] Insulin ASPART (NF) [Novolog (NF)] 0 - 10 units SUBCUT AC PRN 06/24/17 03/20/18 History Insulin GLARGINE(*) [Lantus(*)] 80 units SUBCUT BEDTIME 06/24/17 03/20/18 History Promethazine TAB* [Phenergan Tab*] 25 mg PO Q8H PRN 06/24/17 03/20/18 History Losartan TAB* [Cozaar TAB*] 100 mg PO DAILY 01/08/18 03/20/18 History Bethanechol TAB* [Urecholine TAB*] 25 mg PO QID 02/20/18 03/20/18 History Calcitriol CAP* [Rocaltrol CAP*] 0.25 mcg PO TID 03/01/18 03/20/18 History Warfarin TAB(*) [Coumadin TAB(*)] 7.5 mg PO BEDTIME tab 03/05/18 03/20/18 Rx Aspirin EC TAB* [Ecotrin EC Low 81 mg PO DAILY 03/17/18 03/20/18 History Dose 81 MG*] Budesonide/Formote 160/4.5(NF) 2 puff INH BID 03/17/18 03/20/18 History [Symbicort 160/4.5 (NF)] Methadone TAB* [Dolophine TAB*] 5 mg PO Q8HR PRN 03/17/18 03/20/18 History Sertraline* [Zoloft*] 25 mg PO DAILY 03/17/18 03/20/18 History Levofloxacin TAB* [Levaquin TAB*] 500 mg PO DAILY #3 tab 03/18/18 03/20/18 Rx predniSONE [Prednisone 20 MG TAB] 20 mg PO DAILY #22 tablet 03/18/18 03/20/18 Rx Hospital Medications: Current Medications Albuterol (Ventolin 2.5 Mg/3 Ml Neb.Gretel*) 2.5 mg INH Q4HR PRN PRN Reason: SOB/WHEEZING Albuterol (Ventolin Hfa Inhaler*) 2 puff INH Q6H PRN PRN Reason: COUGH Aspirin (Aspirin Ec Tab*) 81 mg PO DAILY [facility] Bethanechol Chloride (Urecholine Tab*) 25 mg PO QID [facility] Budesonide/Formoterol Fumarate (Symbicort 160/4.5 (Nf)) 2 puff INH BID [facility]; Protocol Calcitriol (Rocaltrol Cap*) 0.25 mcg PO TID [facility] Dextrose (D50w Syringe 50 Ml*) 12.5 gm IV PUSH .FOR FS < 60 - SS PRN PRN Reason: FS < 60 Gabapentin (Neurontin Cap(*)) 200 mg PO TID [facility] Sodium Chloride (Ns 0.9% 1000 Ml*) 1,000 mls @ 75 mls/hr IV PER RATE [facility] Piperacillin Sod/Tazobactam (Sod 2.25 gm/ Sodium Chloride) 100 mls @ 25 mls/hr IVPB Q12H [facility] Insulin Glargine (Lantus(*)) 80 units SUBCUT BEDTIME [facility] Insulin Human Lispro (Humalog*) 0 units SUBCUT AC [facility]; Protocol Losartan Potassium (Cozaar Tab*) 100 mg PO DAILY [facility] Methadone HCl (Dolophine Tab*) 5 mg PO Q8HR PRN PRN Reason: PAIN Morphine Sulfate (Morphine Inj ((Syringe))*) 2 mg IV Q6H PRN PRN Reason: PAIN - MILD Last Admin: 03/20/18 04:52 Dose: 2 mg Omeprazole (Prilosec Cap*) 40 mg PO QPM [facility] Ondansetron HCl (Zofran Inj*) 4 mg IV Q6H PRN PRN Reason: NAUSEA Last Admin: 03/20/18 04:52 Dose: 4 mg Prednisone (Deltasone Tab*) 40 mg PO DAILY [facility] Promethazine HCl (Phenergan Tab*) 25 mg PO Q8H PRN PRN Reason: NAUSEA Sertraline HCl (Zoloft*) 25 mg PO DAILY [facility] Warfarin Sodium (Coumadin Tab(*)) 7.5 mg PO BEDTIME [facility]; Protocol Lab Data: VBG pH 7.29 (7.32-7.43) L 03/20/18 03:47 Sodium 132 mmol/L (135-145) L 03/20/18 02:54 Potassium 4.6 mmol/L (3.5-5.0) 03/20/18 02:54 BUN 40 mg/dL (6-24) H 03/20/18 02:54 Creatinine 5.64 mg/dL (0.51-0.95) H 03/20/18 02:54 Calcium 8.9 mg/dL (8.6-10.3) 03/20/18 02:54 AST 8 U/L (13-39) L 03/20/18 02:54 ALT 4 U/L (7-52) L 03/20/18 02:54 Laboratory Last Values WBC 22.2 10^3/ul (3.5-10.8) H 03/20/18 03:00 RBC 3.01 10^6/ul (4.00-5.40) L 03/20/18 03:00 Hgb 9.1 g/dl (12.0-16.0) L 03/20/18 03:00 Hct 28 % (35-47) L 03/20/18 03:00 MCV 92 fL (80-97) 03/20/18 03:00 MCH 30 pg (27-31) 03/20/18 03:00 MCHC 33 g/dl (31-36) 03/20/18 03:00 RDW 18 % (10.5-15) H 03/20/18 03:00 Plt Count 421 10^3/ul (150-450) 03/20/18 03:00 MPV 8.4 fL (7.4-10.4) 03/20/18 03:00 Neut % (Auto) 96.0 % 03/20/18 03:00 Lymph % (Auto) 2.4 % 03/20/18 03:00 [place] % (Auto) 1.3 % 03/20/18 03:00 Eos % (Auto) 0 % 03/20/18 03:00 Baso % (Auto) 0.3 % 03/20/18 03:00 Absolute Neuts (auto) 21.3 10^3/ul (1.5-7.7) H 03/20/18 03:00 Absolute Lymphs (auto) 0.5 10^3/ul (1.0-4.8) L 03/20/18 03:00 Absolute Monos (auto) 0.3 10^3/ul (0-0.8) 03/20/18 03:00 Absolute Eos (auto) 0 10^3/ul (0-0.6) 03/20/18 03:00 Absolute Basos (auto) 0.1 10^3/ul (0-0.2) 03/20/18 03:00 Absolute Nucleated RBC 0 10^3/ul 03/20/18 03:00 Nucleated RBC % 0 03/20/18 03:00 VBG pH 7.29 (7.32-7.43) L 03/20/18 03:47 VBG pCO2 56 mmHg (41-51) H 03/20/18 03:47 VBG pO2 44.0 mmHg (35-45) 03/20/18 03:47 VBG HCO3 23.7 mmol/L (24-28) L 03/20/18 03:47 VBG O2 Saturation 80.7 % (70-80) H 03/20/18 03:47 VBG Base Excess -0.7 mmol/L (0.0-4.0) L 03/20/18 03:47 Sodium 132 mmol/L (135-145) L 03/20/18 02:54 Potassium 4.6 mmol/L (3.5-5.0) 03/20/18 02:54 Chloride 96 mmol/L (101-111) L 03/20/18 02:54 Carbon Dioxide 21 mmol/L (22-32) L 03/20/18 02:54 Anion Gap 15 mmol/L (2-11) H 03/20/18 02:54 BUN 40 mg/dL (6-24) H 03/20/18 02:54 Creatinine 5.64 mg/dL (0.51-0.95) H 03/20/18 02:54 Est GFR ( Amer) 10.2 (>60) 03/20/18 02:54 Est GFR (Non-Af Amer) 8.4 (>60) 03/20/18 02:54 BUN/Creatinine Ratio 7.1 (8-20) L 03/20/18 02:54 Glucose 423 mg/dL (70-100) H 03/20/18 02:54 Lactic Acid 3.6 mmol/L (0.5-2.0) H* 03/20/18 03:00 Calcium 8.9 mg/dL (8.6-10.3) 03/20/18 02:54 Total Bilirubin 0.20 mg/dL (0.2-1.0) 03/20/18 02:54 AST 8 U/L (13-39) L 03/20/18 02:54 ALT 4 U/L (7-52) L 03/20/18 02:54 Alkaline Phosphatase 92 U/L (34-104) 03/20/18 02:54 Total Protein 6.7 g/dL (6.4-8.9) 03/20/18 02:54 Albumin 3.1 g/dL (3.2-5.2) L 03/20/18 02:54 Globulin 3.6 g/dL (2-4) 03/20/18 02:54 Albumin/Globulin Ratio 0.9 (1-3) L 03/20/18 02:54 Influenza A (Rapid) Negative (Negative) 03/20/18 02:34 Influenza B (Rapid) Negative (Negative) 03/20/18 02:34 Vital Signs: Vital Signs 03/20/18 03/20/18 03/20/18 01:48 02:05 02:06 Temperature 96.3 F Pulse Rate 111 116 114 Respiratory 20 Rate Blood Pressure 194/95 176/83 (mmHg) O2 Sat by Pulse 96 95 97 Oximetry 03/20/18 03/20/18 03/20/18 02:23 03:00 03:25 Temperature 98.1 F Pulse Rate 103 Respiratory 20 Rate Blood Pressure (mmHg) O2 Sat by Pulse 99 Oximetry 03/20/18 03/20/18 03:35 04:52 Temperature Pulse Rate 97 Respiratory 20 Rate Blood Pressure 139/86 (mmHg) O2 Sat by Pulse 98 Oximetry
[2018-03-20 05:57] LABS: Urine Appearance Cloudy; Urine Bacteria Absent (Absent); Urine Bilirubin Negative (Negative); Urine Blood Negative (Negative); Urine Color Yellow; Urine Glucose 3+(>=500 mg/dL) (Negative); Urine Ketones Negative (Negative); Urine Nitrite Negative (Negative); Urine Protein 3+(>=500 mg/dL) (Negative); Urine Red Blood Cell Trace(0-2/hpf) (Absent); Urine Specific Gravity 1.028 (1.010-1.030); Urine Squamous Epithelial Cell Present (Absent); Urine Urobilinogen Negative (Negative); Urine White Blood Cell Trace(0-5/hpf) (Absent)
[2018-03-20] MEDS ORDERED: Piperacillin/Tazobac ADVAN(*) 2.25 GM in NS 0.9% 100 ML* 100 ML IVPB SCH ×2 (06:30→06:45)
[2018-03-20] MEDS: Promethazine TAB* 25 MG PO PRN ×2 (08:06→20:26)
[2018-03-20] MEDS: Methadone TAB* 5 MG PO PRN (08:06)
[2018-03-20] MEDS: Mometasone/Formoter 200/5 MDI INH SCH ×2 (08:22→19:33)
[2018-03-20 09:20] LABS: INR 2.78 (0.77-1.02)
[2018-03-20] MEDS: Insulin LISPRO* 1 UNITS UNIT SUBCUT SCH ×3 (10:06→17:42)
[2018-03-20] MEDS ORDERED: PIPERACILLIN IVPB SCH (10:37)
[2018-03-20] MEDS ORDERED: NS 0.9% IVPB SCH (10:37)
[2018-03-20] MEDS ORDERED: TAZOBAC ADVAN IVPB SCH (10:37)
[2018-03-20] MEDS: Calcitriol CAP* 0.25 MCG PO SCH ×3 (11:17→20:16)
[2018-03-20] MEDS: Bethanechol TAB* 25 MG PO SCH ×4 (11:17→20:26)
[2018-03-20] MEDS: Gabapentin CAP(*) 100 MG PO SCH ×3 (12:35→20:15)
[2018-03-20] MEDS: PIPERACILLIN IVPB SCH ×2 (13:58→22:36)
[2018-03-20] MEDS: NS 0.9% IVPB SCH ×2 (13:58→22:36)
[2018-03-20] MEDS: TAZOBAC ADVAN IVPB SCH ×2 (13:58→22:36)
[2018-03-20] MEDS: Aspirin EC TAB* 81 MG TAB.EC PO SCH (14:06)
[2018-03-20] MEDS: Sertraline* 25 MG TAB PO SCH (14:06)
[2018-03-20] MEDS: predniSONE TAB* 20 MG PO SCH (14:06)
[2018-03-20] MEDS: Losartan TAB* 25 MG PO SCH (14:06)
[2018-03-20] MEDS: Morphine VIAL* 4 MG/ML VIAL (1 ml vial) IV PRN ×2 (14:15→20:16)
[2018-03-20] MEDS ORDERED: EPOETIN ALFA-EPBX * 10,000 UNIT/ML VIAL SUBCUT ONE (15:00)
[2018-03-20] MEDS: Mupirocin 2% OINT* TUBE TOPICAL SCH ×2 (15:22→17:44)
--- NOTE | 2018-03-20 16:47 | PN ---
Hospitalist Progress Note Date of Service: 03/20/18 Pt seen and examined. Margaux Wright is a 37 yo female PMH ESRD on PD, IDDM, COPD on home O2, current smoker, PAD on coumadin, chronic pain syndrom on methadone with recent leaving AMA on 03/18 on day of admission for CT chest with perihilar ground glass opacities in setting of reported home fevers 100.5. She was discharged on renally dosed levaquin. She returned to the ED with continued productive cough, fevers, chills and admitted for sepsis secondary to pneumonia. Likely also component of COPD exacerbation. Got Augmetin at PCP 03/14. Recent buttock abscess & perianal fistula s/p I&D 03/04-03/05 (left AMA). Continue Zosyn, inhalers , prednisone 40mg daily. Lantus 80U qhs + SSI. Continue PD. No rhonchi or rales but exp wheezing and relatively poor air exchange. abdomen not tender to palpation. She denies any abdominal pain currently.
[2018-03-20] MEDS ORDERED: Warfarin TAB(*) 7.5 MG PO SCH (17:00)
[2018-03-20] MEDS: Albuterol 2.5 MG/3 ML NEB.SOL* (0.083%) INH PRN (19:41)
[2018-03-20] MEDS: Pantoprazole TAB * 40 MG TAB PO SCH (20:16)
[2018-03-20] MEDS: Insulin GLARGINE(*) 1 UNITS UNIT SUBCUT SCH (21:23)
[2018-03-21] MEDS: Albuterol 2.5 MG/3 ML NEB.SOL* (0.083%) INH PRN (02:05)
[2018-03-21] MEDS: NS 0.9% IVPB SCH ×3 (05:53→22:12)
[2018-03-21] MEDS: PIPERACILLIN IVPB SCH ×3 (05:53→22:12)
[2018-03-21] MEDS: TAZOBAC ADVAN IVPB SCH ×3 (05:53→22:12)
[2018-03-21 07:44] LABS: ABS Basophils 0.1 10^3/ul (0-0.2); ABS Eosinophils 0 10^3/ul (0-0.6); ABS Lymphocytes 1.2 10^3/ul (1.0-4.8); ABS Monocytes 0.7 10^3/ul (0-0.8); ABS Neutrophils 17.5 10^3/ul (1.5-7.7); ABS Nucleated RBC 0 10^3/ul; Eosinophil % 0 %; Hematocrit 26 % (35-47); Hemoglobin 8.1 g/dl (12.0-16.0); Mean Corpuscular HGB Conc 31 g/dl (31-36); Mean Corpuscular Hemoglobin 29 pg (27-31); Mean Corpuscular Volume 94 fL (80-97); Mean Platelet Volume 8.4 fL (7.4-10.4); Nucleated Red Blood Cells % 0; Platelet Count 373 10^3/ul (150-450); Red Blood Count 2.76 10^6/ul (4.00-5.40); Red Cell Distribution Width 18 % (10.5-15); White Blood Count 19.5 10^3/ul (3.5-10.8)
[2018-03-21 07:49] LABS: INR 3.32 (0.77-1.02)
[2018-03-21] MEDS: Bethanechol TAB* 25 MG PO SCH ×4 (08:21→22:12)
[2018-03-21] MEDS: Gabapentin CAP(*) 100 MG PO SCH ×3 (08:21→22:12)
[2018-03-21] MEDS: Calcitriol CAP* 0.25 MCG PO SCH ×3 (08:21→22:13)
[2018-03-21 08:22] LABS: Calcium 8.5 mg/dL (8.6-10.3); EGFR African American 9.1 (>60); EGFR Non-African American 7.5 (>60); Potassium 4.4 mmol/L (3.5-5.0)
[2018-03-21] MEDS: Insulin LISPRO* 1 UNITS UNIT SUBCUT SCH ×3 (08:22→18:24)
[2018-03-21] MEDS: predniSONE TAB* 20 MG PO SCH (08:22)
[2018-03-21] MEDS: Aspirin EC TAB* 81 MG TAB.EC PO SCH (08:22)
[2018-03-21] MEDS: Mupirocin 2% OINT* TUBE TOPICAL SCH (08:22)
[2018-03-21] MEDS: Losartan TAB* 25 MG PO SCH (08:22)
[2018-03-21] MEDS: Sertraline* 25 MG TAB PO SCH (08:23)
[2018-03-21] MEDS: Mometasone/Formoter 200/5 MDI INH SCH ×3 (09:14→19:00)
[2018-03-21] MEDS: Methadone TAB* 5 MG PO PRN ×2 (12:25→22:14)
[2018-03-21] MEDS ORDERED: Lidocaine 2.5%/Prilocain 2.5%* 5 GM TUBE TOPICAL ONE (13:25)
--- NOTE | 2018-03-21 14:16 | PN ---
Subjective Date of Service: 03/21/18 Interval History: Patient seen and examined. No acute overnight events. Has had issues with IV access. Denies acute SOB, states her breathing is better but remains fatigued. Denies chest pain, no n/v, no headache, no fever or chills. Objective Active Medications: Albuterol (Ventolin 2.5 Mg/3 Ml Neb.Kaylynn*) 2.5 mg INH Q4HR PRN PRN Reason: SOB/WHEEZING Last Admin: 03/21/18 02:05 Dose: 2.5 mg Albuterol (Ventolin Hfa Inhaler*) 2 puff INH Q6H PRN PRN Reason: COUGH Aspirin (Aspirin Ec Tab*) 81 mg PO DAILY [facility] Last Admin: 03/21/18 08:22 Dose: 81 mg Bethanechol Chloride (Urecholine Tab*) 25 mg PO QID [facility] Last Admin: 03/21/18 12:18 Dose: 25 mg Calcitriol (Rocaltrol Cap*) 0.25 mcg PO TID [facility] Last Admin: 03/21/18 12:18 Dose: 0.25 mcg Dextrose (D50w Syringe 50 Ml*) 12.5 gm IV PUSH .FOR FS < 60 - SS PRN PRN Reason: FS < 60 Gabapentin (Neurontin Cap(*)) 200 mg PO TID [facility] Last Admin: 03/21/18 12:18 Dose: 200 mg Piperacillin Sod/Tazobactam (Sod 2.25 gm/ Sodium Chloride) 50 mls @ 100 mls/hr IVPB 0630,1430,2230 [facility] Last Admin: 03/21/18 05:53 Dose: 100 mls/hr Insulin Glargine (Lantus(*)) 80 units SUBCUT BEDTIME [facility] Last Admin: 03/20/18 21:23 Dose: 80 units Insulin Human Lispro (Humalog*) 0 units SUBCUT AC [facility]; Protocol Last Admin: 03/21/18 12:18 Dose: 6 units Losartan Potassium (Cozaar Tab*) 100 mg PO DAILY [facility] Last Admin: 03/21/18 08:22 Dose: 100 mg Methadone HCl (Dolophine Tab*) 5 mg PO Q8HR PRN PRN Reason: PAIN Last Admin: 03/21/18 12:25 Dose: 5 mg Mometasone Furoate/Formoterol Fumar (Dulera 200/5 Mdi*) 2 puff INH BID [facility]; Protocol Last Admin: 03/21/18 09:14 Dose: 2 puff Morphine Sulfate (Morphine Vial*) 2 mg IV Q6H PRN PRN Reason: PAIN - MILD Last Admin: 03/20/18 20:16 Dose: 2 mg Mupirocin (Bactroban 2 % Oint*) 1 applic TOPICAL DAILY [facility] Last Admin: 03/21/18 08:22 Dose: 1 applic Ondansetron HCl (Zofran Inj*) 4 mg IV Q6H PRN PRN Reason: NAUSEA Last Admin: 03/20/18 14:15 Dose: 4 mg Pantoprazole Sodium (Protonix Tab*) 40 mg PO QPM [facility] Last Admin: 03/20/18 20:16 Dose: 40 mg Pharmacy Profile Note (Coumadin Daily Reminder*) 1 note FOLLOW UP 1700 [facility] Prednisone (Deltasone Tab*) 40 mg PO DAILY [facility] Last Admin: 03/21/18 08:22 Dose: 40 mg Promethazine HCl (Phenergan Tab*) 25 mg PO Q8H PRN PRN Reason: NAUSEA Last Admin: 03/20/18 20:26 Dose: 25 mg Sertraline HCl (Zoloft*) 25 mg PO DAILY [facility] Last Admin: 03/21/18 08:23 Dose: 25 mg Warfarin Sodium (Coumadin Tab(*)) 3 mg PO 1700 [facility] Vital Signs - 8 hr 03/21/18 03/21/18 03/21/18 08:21 09:15 09:16 Pulse Rate 98 Respiratory 16 16 Rate O2 Sat by Pulse 99 99 Oximetry 03/21/18 03/21/18 12:18 12:25 Pulse Rate Respiratory 16 15 Rate O2 Sat by Pulse Oximetry Oxygen Devices in Use Now: Nasal Cannula Appearance: alert, tired, NAD Eyes: No Scleral Icterus, PERRLA Ears/Nose/Mouth/Throat: Mucous Membranes Moist, - - poor dentition Neck: NL Appearance and Movements; NL JVP, Trachea Midline Respiratory: Symmetrical Chest Expansion and Respiratory Effort, - - clear apices, diminished throughout with bilateral exp wheeze Cardiovascular: NL Sounds; No Murmurs; No JVD, RRR, No Edema Abdominal: NL Sounds; No Tenderness; No Distention, - - PD access cath Extremities: No Edema, No Clubbing, Cyanosis Skin: No Rash or Ulcers, No Nodules or Sclerosis Neurological: Alert and Oriented x 3 Nutrition: Taking PO's Result Diagrams: 03/21/18 07:31 03/21/18 07:31 Microbiology and Other Data: Microbiology 03/20/18 05:05 Urine Culture - Final Urine No Growth (<1,000 CFU/mL) 03/20/18 02:16 Influenza Types A,B Antigen - Final Nasal Specimen received for Influenza A/B Molecular testing Diagnostic Imaging: Patient Name: JULI PERRY Medical Record#: [id number] Ordering Physician: Yamil Garcia MD Acct.#: [id number] : 1980 Age: 37 Sex: F Location: [address] [place] [address] - MEDICAL Exam Date: 03/20/18221 ADM Status: ADM IN Order Information: CHEST PA & LAT 2 VWS Accession Number: [id number] CPT: 44485 HISTORY: f/u pneumonia COMPARISONS: March 17, 2018 VIEWS: 4: Frontal dual-energy and lateral views of the chest. FINDINGS: CARDIOMEDIASTINAL SILHOUETTE: The cardiac silhouette is mildly enlarged. The cardiomediastinal silhouette is otherwise normal. TIFFANI: The tiffani are normal. PLEURA: The costophrenic angles are sharp. No pleural abnormalities are noted. LUNG PARENCHYMA: The lungs are clear. ABDOMEN: The upper abdomen is clear. There is no subphrenic gas. BONES AND SOFT TISSUES: No bone or soft tissue abnormalities are noted. OTHER: None. IMPRESSION: STABLE MILD CARDIOMEGALY. NO ACTIVE CARDIOPULMONARY DISEASE. R0 Preliminary Imaging Read R0 <Electronically signed by Samuel Baker MD in [place]> 03/20/18758 Dictated By: Samuel Baker MD Dictated Date/Time: 03/20/18758 Transcribed Date/Time: 03/20/18757 Copy to: Assess/Plan/Problems-Billing Assessment: This is a 37 year old female with complex past medical history including ESRD on PD, PAD on coumadin, IDDM, chronic pain, COPD and obesity that presents with SOB fevers and chills after haivng left AMA on 03/18/18. - Patient Problems (1) Pneumonia Code(s): J18.9 - PNEUMONIA, UNSPECIFIED ORGANISM SNOMED Code(s): 751185171 Comment: - Noted perihilar ground glass opacities on CT scan in setting of subjective fevers meeting sepsis criteria with lactic acidosis and tachycardia on admission , post fluid resuscitation in the ED - Repeated hospitalizations, will continue zosyn empirically, cannot exclude COPD exac as well - Continue O2 and pulmonary toilet (2) COPD (chronic obstructive pulmonary disease) Code(s): J44.9 - CHRONIC OBSTRUCTIVE PULMONARY DISEASE, UNSPECIFIED SNOMED Code(s): 45357407 Comment: - With chronic hypoxic respiratory failure, on home O2 - Continue home inhalers and regimen - Continue prednisone 40mg daily in setting of PNA (3) Chronic pain Code(s): G89.29 - OTHER CHRONIC PAIN SNOMED Code(s): 05955078 Comment: - Likely combination of diabetic neuropathy and chronic disease - Continue methadone 5mg Q8h and lyrica (4) PAD (peripheral artery disease) Code(s): I73.9 - PERIPHERAL VASCULAR DISEASE, UNSPECIFIED SNOMED Code(s): 388049304 Comment: - On coumadin, INR supratherapeutic today, will dose adjust tonight and follow INR in AM. (5) ESRD on peritoneal dialysis Code(s): N18.6 - END STAGE RENAL DISEASE; Z99.2 - DEPENDENCE ON RENAL DIALYSIS SNOMED Code(s): 58853523 Comment: - On PD at night - Stable (6) HTN (hypertension) Code(s): I10 - ESSENTIAL (PRIMARY) HYPERTENSION SNOMED Code(s): 23650439 Comment: - continue losartan (7) Hx of insulin dependent diabetes mellitus Code(s): Z86.39 - PERSONAL HISTORY OF ENDO, NUTRITIONAL AND METABOLIC DISEASE SNOMED Code(s): 926469529 Comment: - Continue insulin regimen and lispro SS (8) Abscess of buttock, right Current Visit: No Code(s): L02.31 - CUTANEOUS ABSCESS OF BUTTOCK SNOMED Code (s): 89044981 Comment: - Recent buttock abscess & perianal fistula s/p I&D 03/04-03/05, left AMA per record (9) DVT prophylaxis Code(s): ZKP3176 - SNOMED Code(s): 593936271 Comment: - On coumadin (10) Full code status Code(s): Z78.9 - OTHER SPECIFIED HEALTH STATUS SNOMED Code(s): 765158068 Status and Disposition: Inpatient, anticipate DC home when medically stable.
[2018-03-21] MEDS: Ondansetron INJ* 2 MG/ML VIAL IV PRN ×2 (15:12→22:13)
[2018-03-21] MEDS: Morphine VIAL* 4 MG/ML VIAL (1 ml vial) IV PRN ×2 (15:12→22:13)
[2018-03-21] MEDS ORDERED: Warfarin TAB(*) 3 MG PO SCH (17:00)
[2018-03-21] MEDS: Pantoprazole TAB * 40 MG TAB PO SCH (18:24)
[2018-03-21] MEDS: Insulin GLARGINE(*) 1 UNITS UNIT SUBCUT SCH (22:14)
[2018-03-21] MEDS: Vancomycin CAP* 250 MG CAP PO SCH (22:24)
[2018-03-22] MEDS: Albuterol 2.5 MG/3 ML NEB.SOL* (0.083%) INH PRN (03:27)
[2018-03-22] MEDS: TAZOBAC ADVAN IVPB SCH ×3 (06:15→21:48)
[2018-03-22] MEDS: PIPERACILLIN IVPB SCH ×3 (06:15→21:48)
[2018-03-22] MEDS: NS 0.9% IVPB SCH ×3 (06:15→21:48)
[2018-03-22] MEDS: Mometasone/Formoter 200/5 MDI INH SCH ×2 (08:04→19:34)
[2018-03-22] MEDS: Insulin LISPRO* 1 UNITS UNIT SUBCUT SCH ×3 (08:21→17:24)
[2018-03-22] MEDS: Morphine VIAL* 4 MG/ML VIAL (1 ml vial) IV PRN (09:08)
[2018-03-22] MEDS: Ondansetron INJ* 2 MG/ML VIAL IV PRN (09:08)
[2018-03-22 09:48] LABS: INR 3.42 (0.77-1.02)
[2018-03-22] MEDS: predniSONE TAB* 20 MG PO SCH (09:52)
[2018-03-22] MEDS: Vancomycin CAP* 250 MG CAP PO SCH ×4 (09:52→21:48)
[2018-03-22] MEDS: Losartan TAB* 25 MG PO SCH (09:52)
[2018-03-22] MEDS: Sertraline* 25 MG TAB PO SCH (09:53)
[2018-03-22] MEDS: Bethanechol TAB* 25 MG PO SCH ×4 (09:53→21:48)
[2018-03-22] MEDS: Calcitriol CAP* 0.25 MCG PO SCH ×3 (09:53→21:47)
[2018-03-22] MEDS: Aspirin EC TAB* 81 MG TAB.EC PO SCH (09:53)
[2018-03-22] MEDS: Gabapentin CAP(*) 100 MG PO SCH ×3 (09:53→21:47)
[2018-03-22] MEDS: Mupirocin 2% OINT* TUBE TOPICAL SCH (09:54)
[2018-03-22] MEDS ORDERED: Morphine INJ* 2 MG/ML 1 ML SYRINGE (TWO MG - NEW SYRINGE VERSION) IV PRN (13:05)
[2018-03-22] MEDS ORDERED: Warfarin TAB(*) 2 MG PO ONE (17:00)
[2018-03-22] MEDS: Pantoprazole TAB * 40 MG TAB PO SCH (17:46)
[2018-03-22] MEDS ORDERED: Vancomycin(*) 1,000 MG in NS 0.9% 250 ML* 250 ML IVPB ONE (18:14)
[2018-03-22] MEDS: Insulin GLARGINE(*) 1 UNITS UNIT SUBCUT SCH (22:02)
[2018-03-23] MEDS: Dextrose 50% Syringe 50 ML* 25 GM/50 ML SYRINGE IV PUSH PRN ×2 (00:35→07:42)
[2018-03-23] MEDS ORDERED: D5W 500 ML BAG* 500 ML IV SCH (02:00)
[2018-03-23] MEDS: D5W 1/2 NS 1000 ML BAG* 1,000 ML IV SCH ×2 (02:30→15:56)
[2018-03-23 06:02] LABS: INR 3.23 (0.77-1.02)
[2018-03-23] MEDS: NS 0.9% IVPB SCH ×3 (06:58→15:57)
[2018-03-23] MEDS: TAZOBAC ADVAN IVPB SCH ×3 (06:58→15:57)
[2018-03-23] MEDS: PIPERACILLIN IVPB SCH ×3 (06:58→15:57)
[2018-03-23] MEDS: Mometasone/Formoter 200/5 MDI INH SCH ×2 (07:56→20:02)
[2018-03-23] MEDS: Insulin LISPRO* 1 UNITS UNIT SUBCUT SCH ×3 (08:14→17:14)
[2018-03-23 08:41] LABS: ABS Basophils 0.2 10^3/ul (0-0.2); ABS Eosinophils 0 10^3/ul (0-0.6); ABS Lymphocytes 1.4 10^3/ul (1.0-4.8); ABS Neutrophils 18.7 10^3/ul (1.5-7.7); ABS Nucleated RBC 0 10^3/ul; Eosinophil % 0.2 %; Hematocrit 30 % (35-47); Hemoglobin 9.1 g/dl (12.0-16.0); Lymphocyte % 6.7 %; Mean Corpuscular HGB Conc 30 g/dl (31-36); Mean Corpuscular Hemoglobin 29 pg (27-31); Mean Corpuscular Volume 95 fL (80-97); Mean Platelet Volume 8.7 fL (7.4-10.4); Nucleated Red Blood Cells % 0; Platelet Count 432 10^3/ul (150-450); Red Blood Count 3.17 10^6/ul (4.00-5.40); Red Cell Distribution Width 18 % (10.5-15); White Blood Count 21.4 10^3/ul (3.5-10.8)
[2018-03-23 08:53] LABS: Albumin 3.1 g/dL (3.2-5.2); BUN/Creatinine Ratio 6.1 (8-20); Calcium 8.4 mg/dL (8.6-10.3); EGFR Non-African American 5.8 (>60); Globulin 3.2 g/dL (2-4); Potassium 3.8 mmol/L (3.5-5.0); Total Bilirubin 0.2 mg/dL (0.2-1.0); Total Protein 6.3 g/dL (6.4-8.9)
[2018-03-23] MEDS: Aspirin EC TAB* 81 MG TAB.EC PO SCH (09:42)
[2018-03-23] MEDS: Sertraline* 25 MG TAB PO SCH (09:42)
[2018-03-23] MEDS: predniSONE TAB* 20 MG PO SCH (09:42)
[2018-03-23] MEDS: Gabapentin CAP(*) 100 MG PO SCH ×3 (09:43→21:29)
[2018-03-23] MEDS: Losartan TAB* 25 MG PO SCH (09:43)
[2018-03-23] MEDS: Bethanechol TAB* 25 MG PO SCH ×4 (09:43→21:29)
[2018-03-23] MEDS: Calcitriol CAP* 0.25 MCG PO SCH ×3 (09:43→21:29)
[2018-03-23] MEDS: Vancomycin CAP* 250 MG CAP PO SCH ×4 (09:43→21:29)
[2018-03-23] MEDS: Mupirocin 2% OINT* TUBE TOPICAL SCH (11:00)
--- NOTE | 2018-03-23 13:47 | PN ---
Subjective Date of Service: 03/22/18 Interval History: Patient seen and examined. Appears a little more lethargic, but states she feels OK, had dialysis. Discussed Cdiff findings, patient is agreeable to continuing vanco PO. Denies SOB, no chest pain, no further complaints. Objective Active Medications: Albuterol (Ventolin 2.5 Mg/3 Ml Neb.Kaylynn*) 2.5 mg INH Q4HR PRN PRN Reason: SOB/WHEEZING Last Admin: 03/22/18 03:27 Dose: 2.5 mg Albuterol (Ventolin Hfa Inhaler*) 2 puff INH Q6H PRN PRN Reason: COUGH Aspirin (Aspirin Ec Tab*) 81 mg PO DAILY [facility] Last Admin: 03/23/18 09:42 Dose: 81 mg Bethanechol Chloride (Urecholine Tab*) 25 mg PO QID [facility] Last Admin: 03/23/18 13:22 Dose: 25 mg Calcitriol (Rocaltrol Cap*) 0.25 mcg PO TID [facility] Last Admin: 03/23/18 13:22 Dose: 0.25 mcg Dextrose (D50w Syringe 50 Ml*) 12.5 gm IV PUSH .FOR FS < 60 - SS PRN PRN Reason: FS < 60 Last Admin: 03/23/18 07:42 Dose: 12.5 gm Gabapentin (Neurontin Cap(*)) 200 mg PO TID [facility] Last Admin: 03/23/18 13:22 Dose: 200 mg Piperacillin Sod/Tazobactam (Sod 2.25 gm/ Sodium Chloride) 50 mls @ 100 mls/hr IVPB 0000,0800,1600 [facility] Last Admin: 03/23/18 09:55 Dose: 100 mls/hr Dextrose/Sodium Chloride (D5w 1/2 Ns 1000 Ml Bag*) 1,000 mls @ 75 mls/hr IV PER RATE [facility] Last Admin: 03/23/18 02:30 Dose: 75 mls/hr Insulin Glargine (Lantus(*)) 50 units SUBCUT BEDTIME [facility] Insulin Human Lispro (Humalog*) 0 units SUBCUT AC [facility]; Protocol Last Admin: 03/23/18 11:45 Dose: Not Given Losartan Potassium (Cozaar Tab*) 100 mg PO DAILY [facility] Last Admin: 03/23/18 09:43 Dose: 100 mg Methadone HCl (Dolophine Tab*) 5 mg PO Q8HR PRN PRN Reason: PAIN Last Admin: 03/21/18 22:14 Dose: 5 mg Mometasone Furoate/Formoterol Fumar (Dulera 200/5 Mdi*) 2 puff INH BID [facility]; Protocol Last Admin: 03/23/18 07:56 Dose: Not Given Morphine Sulfate (Morphine Inj ((Syringe))*) 2 mg IV Q6H PRN PRN Reason: PAIN - MILD Mupirocin (Bactroban 2 % Oint*) 1 applic TOPICAL DAILY [facility] Last Admin: 03/23/18 11:00 Dose: Not Given Ondansetron HCl (Zofran Inj*) 4 mg IV Q6H PRN PRN Reason: NAUSEA Last Admin: 03/22/18 09:08 Dose: 4 mg Pantoprazole Sodium (Protonix Tab*) 40 mg PO QPM [facility] Last Admin: 03/22/18 17:46 Dose: 40 mg Pharmacy Profile Note (Coumadin Daily Reminder*) 1 note FOLLOW UP 1700 [facility] Last Admin: 03/22/18 17:46 Dose: 1 note Prednisone (Deltasone Tab*) 40 mg PO DAILY [facility] Last Admin: 03/23/18 09:42 Dose: 40 mg Promethazine HCl (Phenergan Tab*) 25 mg PO Q8H PRN PRN Reason: NAUSEA Last Admin: 03/20/18 20:26 Dose: 25 mg Sertraline HCl (Zoloft*) 25 mg PO DAILY [facility] Last Admin: 03/23/18 09:42 Dose: 25 mg Vancomycin HCl (Vancomycin Cap*) 250 mg PO QID [facility] Last Admin: 03/23/18 13:22 Dose: 250 mg Warfarin Sodium (Coumadin Tab(*)) 1 mg PO 1700 [facility] Stop: 03/23/18 17:01 Vital Signs - 8 hr 03/23/18 03/23/18 03/23/18 06:00 06:01 07:00 Temperature Pulse Rate 90 88 86 Respiratory 23 17 14 Rate Blood Pressure 109/81 107/80 (mmHg) O2 Sat by Pulse 100 100 95 Oximetry 03/23/18 03/23/18 03/23/18 07:01 07:42 08:00 Temperature 96.2 F Pulse Rate 87 91 Respiratory 14 13 Rate Blood Pressure (mmHg) O2 Sat by Pulse 95 100 Oximetry 01/27/19 01/27/19 01/27/19 08:01 08:31 09:00 Temperature Pulse Rate 91 99 116 Respiratory 12 14 21 Rate Blood Pressure 101/82 (mmHg) O2 Sat by Pulse 100 100 78 Oximetry 03/23/18 03/23/18 03/23/18 10:00 10:01 11:00 Temperature Pulse Rate 102 103 99 Respiratory 15 11 13 Rate Blood Pressure 169/83 (mmHg) O2 Sat by Pulse 98 95 100 Oximetry 03/23/18 03/23/18 03/23/18 11:01 11:49 11:54 Temperature 96.9 F Pulse Rate 98 Respiratory 11 13 Rate Blood Pressure (mmHg) O2 Sat by Pulse 100 Oximetry Oxygen Devices in Use Now: Nasal Cannula Appearance: alert, fatigued Eyes: No Scleral Icterus, PERRLA Neck: NL Appearance and Movements; NL JVP, Trachea Midline Respiratory: Symmetrical Chest Expansion and Respiratory Effort, - - diminished BS, mild wheeze Cardiovascular: NL Sounds; No Murmurs; No JVD, RRR, No Edema Abdominal: NL Sounds; No Tenderness; No Distention Extremities: No Edema, No Clubbing, Cyanosis, - - left midfoot amp Neurological: Alert and Oriented x 3 Nutrition: Taking PO's Result Diagrams: 03/23/18 08:20 03/23/18 08:20 Microbiology and Other Data: Microbiology 03/20/18 05:05 Urine Culture - Final Urine No Growth (<1,000 CFU/mL) 03/20/18 02:16 Influenza Types A,B Antigen - Final Nasal Specimen received for Influenza A/B Molecular testing Diagnostic Imaging: Patient Name: JULI PERRY Medical Record#: [id number] Ordering Physician: Yamil Garcia MD Acct.#: [id number] : 1980 Age: 37 Sex: F Location: [address] [place] [address] - MEDICAL Exam Date: 03/20/18221 ADM Status: ADM IN Order Information: CHEST PA & LAT 2 VWS Accession Number: [id number] CPT: 87220 HISTORY: f/u pneumonia COMPARISONS: March 17, 2018 VIEWS: 4: Frontal dual-energy and lateral views of the chest. FINDINGS: CARDIOMEDIASTINAL SILHOUETTE: The cardiac silhouette is mildly enlarged. The cardiomediastinal silhouette is otherwise normal. TIFFANI: The tiffani are normal. PLEURA: The costophrenic angles are sharp. No pleural abnormalities are noted. LUNG PARENCHYMA: The lungs are clear. ABDOMEN: The upper abdomen is clear. There is no subphrenic gas. BONES AND SOFT TISSUES: No bone or soft tissue abnormalities are noted. OTHER: None. IMPRESSION: STABLE MILD CARDIOMEGALY. NO ACTIVE CARDIOPULMONARY DISEASE. R0 Preliminary Imaging Read R0 <Electronically signed by Samuel Baker MD in [place]> 03/20/18758 Dictated By: Samuel Baker MD Dictated Date/Time: 03/20/18758 Transcribed Date/Time: 03/20/18757 Copy to: Assess/Plan/Problems-Billing Assessment: This is a 37 year old female with complex past medical history including ESRD on PD, PAD on coumadin, IDDM, chronic pain, COPD and obesity that presents with SOB fevers and chills after haivng left AMA on 03/18/18. - Patient Problems (1) Pneumonia Code(s): J18.9 - PNEUMONIA, UNSPECIFIED ORGANISM SNOMED Code(s): 869822773 Comment: - Noted perihilar ground glass opacities on CT scan in setting of subjective fevers meeting sepsis criteria with lactic acidosis and tachycardia on admission , post fluid resuscitation in the ED - Repeated hospitalizations, will continue zosyn empirically, cannot exclude COPD exac as well - Continue O2 and pulmonary toilet (2) COPD (chronic obstructive pulmonary disease) Code(s): J44.9 - CHRONIC OBSTRUCTIVE PULMONARY DISEASE, UNSPECIFIED SNOMED Code(s): 93663532 Comment: - With chronic hypoxic respiratory failure, on home O2 - Continue home inhalers and regimen - Continue prednisone 40mg daily in setting of PNA - Titrate O2 (3) Chronic pain Code(s): G89.29 - OTHER CHRONIC PAIN SNOMED Code(s): 85928127 Comment: - Likely combination of diabetic neuropathy and chronic disease - Continue methadone 5mg Q8h and lyrica (4) PAD (peripheral artery disease) Code(s): I73.9 - PERIPHERAL VASCULAR DISEASE, UNSPECIFIED SNOMED Code(s): 775035380 Comment: - On coumadin, INR remains supratherapeutic, continue adjusting coumadin (5) ESRD on peritoneal dialysis Code(s): N18.6 - END STAGE RENAL DISEASE; Z99.2 - DEPENDENCE ON RENAL DIALYSIS SNOMED Code(s): 95322081 Comment: - On PD at night - Stable (6) HTN (hypertension) Code(s): I10 - ESSENTIAL (PRIMARY) HYPERTENSION SNOMED Code(s): 26916182 Comment: - continue losartan (7) Hx of insulin dependent diabetes mellitus Code(s): Z86.39 - PERSONAL HISTORY OF ENDO, NUTRITIONAL AND METABOLIC DISEASE SNOMED Code(s): 462827542 Comment: - Continue insulin regimen and lispro SS, sugars remain high today (8) Abscess of buttock, right Current Visit: No Code(s): L02.31 - CUTANEOUS ABSCESS OF BUTTOCK SNOMED Code (s): 21629259 Comment: - Recent buttock abscess & perianal fistula s/p I&D 03/04-03/05, left AMA per record (9) DVT prophylaxis Code(s): PXM2211 - SNOMED Code(s): 355546871 Comment: - On coumadin (10) Full code status Code(s): Z78.9 - OTHER SPECIFIED HEALTH STATUS SNOMED Code(s): 087438239 Status and Disposition: Inpatient, anticipate DC home when medically stable.
--- NOTE | 2018-03-23 13:54 | PN ---
Subjective Date of Service: 03/23/18 Interval History: Patient seen and examined. Awake, tolerating NC, off bipap, diarrhea continues. Patient appears tired and somewhat lethargic but is otherwise appropriate. Denies chest pain, no fevers or chills, states breathing is "ok". Objective Active Medications: Albuterol (Ventolin 2.5 Mg/3 Ml Neb.Kaylynn*) 2.5 mg INH Q4HR PRN PRN Reason: SOB/WHEEZING Last Admin: 03/22/18 03:27 Dose: 2.5 mg Albuterol (Ventolin Hfa Inhaler*) 2 puff INH Q6H PRN PRN Reason: COUGH Aspirin (Aspirin Ec Tab*) 81 mg PO DAILY [facility] Last Admin: 03/23/18 09:42 Dose: 81 mg Bethanechol Chloride (Urecholine Tab*) 25 mg PO QID [facility] Last Admin: 03/23/18 13:22 Dose: 25 mg Calcitriol (Rocaltrol Cap*) 0.25 mcg PO TID [facility] Last Admin: 03/23/18 13:22 Dose: 0.25 mcg Dextrose (D50w Syringe 50 Ml*) 12.5 gm IV PUSH .FOR FS < 60 - SS PRN PRN Reason: FS < 60 Last Admin: 03/23/18 07:42 Dose: 12.5 gm Gabapentin (Neurontin Cap(*)) 200 mg PO TID [facility] Last Admin: 03/23/18 13:22 Dose: 200 mg Piperacillin Sod/Tazobactam (Sod 2.25 gm/ Sodium Chloride) 50 mls @ 100 mls/hr IVPB 0000,0800,1600 [facility] Last Admin: 03/23/18 09:55 Dose: 100 mls/hr Dextrose/Sodium Chloride (D5w 1/2 Ns 1000 Ml Bag*) 1,000 mls @ 75 mls/hr IV PER RATE [facility] Last Admin: 03/23/18 02:30 Dose: 75 mls/hr Insulin Glargine (Lantus(*)) 50 units SUBCUT BEDTIME [facility] Insulin Human Lispro (Humalog*) 0 units SUBCUT AC [facility]; Protocol Last Admin: 03/23/18 11:45 Dose: Not Given Losartan Potassium (Cozaar Tab*) 100 mg PO DAILY [facility] Last Admin: 03/23/18 09:43 Dose: 100 mg Methadone HCl (Dolophine Tab*) 5 mg PO Q8HR PRN PRN Reason: PAIN Last Admin: 03/21/18 22:14 Dose: 5 mg Mometasone Furoate/Formoterol Fumar (Dulera 200/5 Mdi*) 2 puff INH BID [facility]; Protocol Last Admin: 03/23/18 07:56 Dose: Not Given Morphine Sulfate (Morphine Inj ((Syringe))*) 2 mg IV Q6H PRN PRN Reason: PAIN - MILD Mupirocin (Bactroban 2 % Oint*) 1 applic TOPICAL DAILY [facility] Last Admin: 03/23/18 11:00 Dose: Not Given Ondansetron HCl (Zofran Inj*) 4 mg IV Q6H PRN PRN Reason: NAUSEA Last Admin: 03/22/18 09:08 Dose: 4 mg Pantoprazole Sodium (Protonix Tab*) 40 mg PO QPM [facility] Last Admin: 03/22/18 17:46 Dose: 40 mg Pharmacy Profile Note (Coumadin Daily Reminder*) 1 note FOLLOW UP 1700 [facility] Last Admin: 03/22/18 17:46 Dose: 1 note Prednisone (Deltasone Tab*) 40 mg PO DAILY [facility] Last Admin: 03/23/18 09:42 Dose: 40 mg Promethazine HCl (Phenergan Tab*) 25 mg PO Q8H PRN PRN Reason: NAUSEA Last Admin: 03/20/18 20:26 Dose: 25 mg Sertraline HCl (Zoloft*) 25 mg PO DAILY [facility] Last Admin: 03/23/18 09:42 Dose: 25 mg Vancomycin HCl (Vancomycin Cap*) 250 mg PO QID [facility] Last Admin: 03/23/18 13:22 Dose: 250 mg Warfarin Sodium (Coumadin Tab(*)) 1 mg PO 1700 ONE Stop: 03/23/18 17:01 Vital Signs - 8 hr 03/23/18 03/23/18 03/23/18 06:00 06:01 07:00 Temperature Pulse Rate 90 88 86 Respiratory 23 17 14 Rate Blood Pressure 109/81 107/80 (mmHg) O2 Sat by Pulse 100 100 95 Oximetry 03/23/18 03/23/18 03/23/18 07:01 07:42 08:00 Temperature 96.2 F Pulse Rate 87 91 Respiratory 14 13 Rate Blood Pressure (mmHg) O2 Sat by Pulse 95 100 Oximetry 03/23/18 03/23/18 03/23/18 08:01 08:31 09:00 Temperature Pulse Rate 91 99 116 Respiratory 12 14 21 Rate Blood Pressure 101/82 (mmHg) O2 Sat by Pulse 100 100 78 Oximetry 03/23/18 03/23/18 03/23/18 10:00 10:01 11:00 Temperature Pulse Rate 102 103 99 Respiratory 15 11 13 Rate Blood Pressure 169/83 (mmHg) O2 Sat by Pulse 98 95 100 Oximetry 03/23/18 03/23/18 03/23/18 11:01 11:49 11:54 Temperature 96.9 F Pulse Rate 98 Respiratory 11 13 Rate Blood Pressure (mmHg) O2 Sat by Pulse 100 Oximetry Oxygen Devices in Use Now: Nasal Cannula Appearance: sleepy, NAD Eyes: No Scleral Icterus, PERRLA Ears/Nose/Mouth/Throat: Clear Oropharnyx Neck: Trachea Midline Respiratory: Symmetrical Chest Expansion and Respiratory Effort, - - bilat exp wheeze with low lung volumes Cardiovascular: NL Sounds; No Murmurs; No JVD, No Edema Abdominal: NL Sounds; No Tenderness; No Distention Extremities: - - left mid foot amputation Neurological: Alert and Oriented x 3 Nutrition: Taking PO's Result Diagrams: 03/23/18 08:20 03/23/18 08:20 Microbiology and Other Data: Microbiology 03/20/18 05:05 Urine Culture - Final Urine No Growth (<1,000 CFU/mL) 03/20/18 02:16 Influenza Types A,B Antigen - Final Nasal Specimen received for Influenza A/B Molecular testing Diagnostic Imaging: REPEAT CXR 03/22/18: Patient Name: JULI PERRY Medical Record#: [id number] Ordering Physician: Nolvia Virk NP Acct.#: [id number] : 1980 Age: 37 Sex: F Location: [facility] Exam Date: 03/22/181814 ADM Status: ADM IN Order Information: CHEST AP PORTABLE Accession Number: [id number] CPT: 95995 Indication: Abnormal breast sounds, pneumonia. Single frontal view of the chest performed at 1835 hours was reviewed. Comparison is made with previous exam dated March 20, 2018. No mediastinal shift is noted. Heart is mildly enlarged but is normal in configuration. Lung hernandez appear clear. IMPRESSION: NO ACTIVE CARDIOPULMONARY DISEASE IS NOTED. MILD CARDIOMEGALY R1NF . Preliminary Imaging Read R1NF <Electronically signed by Arianna Griffin MD in [place]> 03/23/18815 Dictated By: Arianna Griffin MD Dictated Date/Time: 03/23/18815 Transcribed Date/Time: 03/23/18814 Copy to: CT CHEST ABDOMEN AND PELVIS 03/18/18: Patient Name: JULI PERRY Medical Record#: [id number] Ordering Physician: Daria Tan MD Acct.#: [id number] : 1980 Age: 37 Sex: F Location: EMERGENCY DEPARTMENT Exam Date: 03/18/18111 ADM Status: REG ER Order Information: CT CHEST/ABD/ PEL W/O Accession Number: [id number] CPT: 53425 EXAM: CT Chest Without Contrast EXAM DATE/TIME: 03/18/2018 1:38 AM CLINICAL HISTORY: 37 years old, female; Signs and symptoms; Fever TECHNIQUE: Axial computed tomography images of the chest without intravenous contrast. All CT scans at this facility use at least one of these dose optimization techniques: automated exposure control; mA and/or kV adjustment per patient size (includes targeted exams where dose is matched to clinical indication); or iterative reconstruction. Coronal and sagittal reformatted images were created and reviewed. COMPARISON: PELV WO CT PELVIS W/O 03/05/2018 10:39 AM FINDINGS: Lungs: Minimal patchy ground glass infiltrates bilaterally. Minimal scattered fibro-atelectatic change, greatest in the right middle lobe and lingula. Pleural space: Normal. No pneumothorax. No pleural effusion. Heart: Coronary artery calcifications are present. Aorta: Normal. No aortic aneurysm. Lymph nodes: Small scattered mediastinal lymph nodes which are upper normal. Bones/joints: Unremarkable. No acute fracture. Soft tissues: Unremarkable. IMPRESSION: 1. Minimal scattered fibro-atelectatic change, greatest in the lingula and right middle lobe and minimal patchy ground glass infiltrates, greatest in the lower lobes. 2. Otherwise negative CT chest. Patient Name: JULI PERRY Medical Record#: [id number] Ordering Physician: Yamil Garcia MD Acct.#: [id number] : 1980 Age: 37 Sex: F Location: [address] [place] [address] MEDICAL Exam Date: 03/20/18221 ADM Status: ADM IN Order Information: CHEST PA & LAT 2 VWS Accession Number: [id number] CPT: 69596 HISTORY: f/u pneumonia COMPARISONS: March 17, 2018 VIEWS: 4: Frontal dual-energy and lateral views of the chest. FINDINGS: CARDIOMEDIASTINAL SILHOUETTE: The cardiac silhouette is mildly enlarged. The cardiomediastinal silhouette is otherwise normal. TIFFANI: The tiffani are normal. PLEURA: The costophrenic angles are sharp. No pleural abnormalities are noted. LUNG PARENCHYMA: The lungs are clear. ABDOMEN: The upper abdomen is clear. There is no subphrenic gas. BONES AND SOFT TISSUES: No bone or soft tissue abnormalities are noted. OTHER: None. IMPRESSION: STABLE MILD CARDIOMEGALY. NO ACTIVE CARDIOPULMONARY DISEASE. R0 Preliminary Imaging Read R0 <Electronically signed by Samuel Baker MD in [place]> 03/20/18 075 Dictated By: Samuel Baker MD Dictated Date/Time: 03/20/18 075 Transcribed Date/Time: 03/20/18 075 Copy to: Assess/Plan/Problems-Billing Assessment: This is a 37 year old female with complex past medical history including ESRD on PD, PAD on coumadin, IDDM, chronic pain, COPD and obesity that presents with SOB fevers and chills after haivng left AMA on 03/18/18, upgraded to ICU last evening for worsening hypoxic respiratory failure with acidosis. - Patient Problems (1) Pneumonia Code(s): J18.9 - PNEUMONIA, UNSPECIFIED ORGANISM SNOMED Code(s): 908238375 Comment: - Off bipap, not much improvement on ABG, oxygenation is improving - Continue zosyn empirically, as patient has had multiple recent admissions, cannot exclude COPD exac in addition to ground glass opacities on CT scan - Continue O2 and and add pulmonary toilet, flutter valve/chest PT (2) COPD (chronic obstructive pulmonary disease) Code(s): J44.9 - CHRONIC OBSTRUCTIVE PULMONARY DISEASE, UNSPECIFIED SNOMED Code(s): 57674104 Comment: - Now with acute on chronic hypoxic respiratory failure requiring bipap this admission - Seems to be tolerating NC at the present - Continue home inhalers and regimen - Continue prednisone 40mg daily - Repeat CXR does not show any new interval findings, this may be a component of obesity hypoventilation syndrome with COPD exac, rather than sepsis or new pathology (3) Chronic pain Code(s): G89.29 - OTHER CHRONIC PAIN SNOMED Code(s): 78392934 Comment: - Likely combination of diabetic neuropathy and chronic disease - Continue methadone 5mg Q8h and lyrica (4) PAD (peripheral artery disease) Code(s): I73.9 - PERIPHERAL VASCULAR DISEASE, UNSPECIFIED SNOMED Code(s): 149864760 Comment: - On coumadin, INR remains supratherapeutic, continue adjusting coumadin (5) ESRD on peritoneal dialysis Code(s): N18.6 - END STAGE RENAL DISEASE; Z99.2 - DEPENDENCE ON RENAL DIALYSIS SNOMED Code(s): 53720253 Comment: - On PD at night - Stable (6) Clostridium difficile diarrhea Code(s): A04.72 - ENTEROCOLITIS D/T CLOSTRIDIUM DIFFICILE, NOT SPCF RECUR SNOMED Code(s): 3991492331576 Comment: - Continue vancomycin oral QID, monitor stools (7) HTN (hypertension) Code(s): I10 - ESSENTIAL (PRIMARY) HYPERTENSION SNOMED Code(s): 94264349 Comment: - continue losartan (8) Hx of insulin dependent diabetes mellitus Code(s): Z86.39 - PERSONAL HISTORY OF ENDO, NUTRITIONAL AND METABOLIC DISEASE SNOMED Code(s): 287294888 Comment: - Had persistent hypoglycemia overnight and into this morning, seems to be improving throughout the day today - Evening lantus was held last night - D50 administered, initiated D5,1/2NS infusion - Adjusted lantus dose for tonight, however, if sugars remain low and patient does not have enough oral intake, will discontinue during acute illness (9) Abscess of buttock, right Current Visit: No Code(s): L02.31 - CUTANEOUS ABSCESS OF BUTTOCK SNOMED Code (s): 22748885 Comment: - Recent buttock abscess & perianal fistula s/p I&D 03/04-03/05, left AMA per record (10) DVT prophylaxis Code(s): WXQ0960 - SNOMED Code(s): 847161464 Comment: - On coumadin, which has been supratherapeutic, continue to adjust dosing for goal INR 2-3 (11) Full code status Code(s): Z78.9 - OTHER SPECIFIED HEALTH STATUS SNOMED Code(s): 249226454 Status and Disposition: Inpatient, anticipate downgrade to floor tomorrow if she remains stable through the night.
[2018-03-23] MEDS ORDERED: Warfarin TAB(*) 1 MG PO ONE (17:00)
[2018-03-23] MEDS: Albuterol/Ipratropium NEB.SOL* Albuterol 2.5 MG/Ipratropium 0.5 MG 3 ML INH SCH ×2 (17:09→22:08)
[2018-03-23] MEDS: Pantoprazole TAB * 40 MG TAB PO SCH (17:14)
[2018-03-23] MEDS ORDERED: Insulin GLARGINE(*) 1 UNITS UNIT SUBCUT SCH (21:00)
[2018-03-24] MEDS: TAZOBAC ADVAN IVPB SCH ×2 (02:36→08:46)
[2018-03-24] MEDS: PIPERACILLIN IVPB SCH ×2 (02:36→08:46)
[2018-03-24] MEDS: NS 0.9% IVPB SCH ×2 (02:36→08:46)
[2018-03-24] MEDS: Albuterol/Ipratropium NEB.SOL* Albuterol 2.5 MG/Ipratropium 0.5 MG 3 ML INH SCH ×4 (04:00→23:29)
[2018-03-24] MEDS: D5W 1/2 NS 1000 ML BAG* 1,000 ML IV SCH (04:56)
[2018-03-24 06:04] LABS: ABS Basophils 0.1 10^3/ul (0-0.2); ABS Eosinophils 0.1 10^3/ul (0-0.6); ABS Lymphocytes 1.9 10^3/ul (1.0-4.8); ABS Monocytes 0.8 10^3/ul (0-0.8); ABS Neutrophils 12.8 10^3/ul (1.5-7.7); ABS Nucleated RBC 0 10^3/ul; Eosinophil % 0.5 %; Hematocrit 27 % (35-47); Hemoglobin 8.6 g/dl (12.0-16.0); Mean Corpuscular HGB Conc 32 g/dl (31-36); Mean Corpuscular Hemoglobin 29 pg (27-31); Mean Corpuscular Volume 93 fL (80-97); Mean Platelet Volume 8.1 fL (7.4-10.4); Nucleated Red Blood Cells % 0.1; Platelet Count 382 10^3/ul (150-450); Red Blood Count 2.92 10^6/ul (4.00-5.40); Red Cell Distribution Width 17 % (10.5-15); White Blood Count 15.7 10^3/ul (3.5-10.8)
[2018-03-24 06:09] LABS: INR 3.36 (0.77-1.02)
[2018-03-24 06:27] LABS: Albumin 2.9 g/dL (3.2-5.2); BUN/Creatinine Ratio 5.3 (8-20); Calcium 8.3 mg/dL (8.6-10.3); EGFR African American 7.7 (>60); EGFR Non-African American 6.4 (>60); Globulin 2.8 g/dL (2-4); Potassium 3.1 mmol/L (3.5-5.0); Total Bilirubin 0.2 mg/dL (0.2-1.0); Total Protein 5.7 g/dL (6.4-8.9)
[2018-03-24] MEDS: Mometasone/Formoter 200/5 MDI INH SCH ×2 (08:00→20:08)
[2018-03-24] MEDS: Losartan TAB* 25 MG PO SCH (08:49)
[2018-03-24] MEDS: Gabapentin CAP(*) 100 MG PO SCH ×3 (08:50→20:54)
[2018-03-24] MEDS: predniSONE TAB* 20 MG PO SCH (08:50)
[2018-03-24] MEDS: Vancomycin CAP* 250 MG CAP PO SCH ×4 (08:50→20:55)
[2018-03-24] MEDS: Mupirocin 2% OINT* TUBE TOPICAL SCH (08:50)
[2018-03-24] MEDS: Bethanechol TAB* 25 MG PO SCH ×4 (08:50→20:55)
[2018-03-24] MEDS: Sertraline* 25 MG TAB PO SCH (08:50)
[2018-03-24] MEDS: Calcitriol CAP* 0.25 MCG PO SCH ×3 (08:50→20:55)
[2018-03-24] MEDS: Aspirin EC TAB* 81 MG TAB.EC PO SCH (08:50)
[2018-03-24] MEDS: Insulin LISPRO* 1 UNITS UNIT SUBCUT SCH ×3 (08:51→17:10)
[2018-03-24] MEDS ORDERED: Potassium Chlor TAB* 20 MEQ TAB.ER PO ONE (15:03)
--- NOTE | 2018-03-24 15:09 | PN ---
Subjective Date of Service: 03/24/18 Interval History: Patient seen and examined, increased wheezing noted, unproductive cough, no fever or chills. Still with copious incontinence of stool and urine. Objective Active Medications: Albuterol (Ventolin 2.5 Mg/3 Ml Neb.Kaylynn*) 2.5 mg INH Q4HR PRN PRN Reason: SOB/WHEEZING Last Admin: 03/22/18 03:27 Dose: 2.5 mg Albuterol (Ventolin Hfa Inhaler*) 2 puff INH Q6H PRN PRN Reason: COUGH Aspirin (Aspirin Ec Tab*) 81 mg PO DAILY [facility] Last Admin: 03/24/18 08:50 Dose: 81 mg Bethanechol Chloride (Urecholine Tab*) 25 mg PO QID [facility] Last Admin: 03/24/18 12:06 Dose: Not Given Calcitriol (Rocaltrol Cap*) 0.25 mcg PO TID [facility] Last Admin: 03/24/18 12:05 Dose: 0.25 mcg Dextrose (D50w Syringe 50 Ml*) 12.5 gm IV PUSH .FOR FS < 60 - SS PRN PRN Reason: FS < 60 Last Admin: 03/23/18 07:42 Dose: 12.5 gm Gabapentin (Neurontin Cap(*)) 200 mg PO TID [facility] Last Admin: 03/24/18 12:05 Dose: 200 mg Dextrose/Sodium Chloride (D5w 1/2 Ns 1000 Ml Bag*) 1,000 mls @ 75 mls/hr IV PER RATE [facility] Last Admin: 03/24/18 04:56 Dose: 75 mls/hr Piperacillin Sod/Tazobactam (Sod 3.375 gm/ Sodium Chloride) 100 mls @ 25 mls/ hr IVPB Q12H [facility] Insulin Glargine (Lantus(*)) 50 units SUBCUT BEDTIME [facility] Last Admin: 03/23/18 21:20 Dose: Not Given Insulin Human Lispro (Humalog*) 0 units SUBCUT AC [facility]; Protocol Last Admin: 03/24/18 11:36 Dose: Not Given Losartan Potassium (Cozaar Tab*) 100 mg PO DAILY [facility] Last Admin: 03/24/18 08:49 Dose: 100 mg Methadone HCl (Dolophine Tab*) 5 mg PO Q8HR PRN PRN Reason: PAIN Last Admin: 03/21/18 22:14 Dose: 5 mg Mometasone Furoate/Formoterol Fumar (Dulera 200/5 Mdi*) 2 puff INH BID [facility]; Protocol Last Admin: 03/24/18 08:00 Dose: 2 puff Morphine Sulfate (Morphine Inj ((Syringe))*) 2 mg IV Q6H PRN PRN Reason: PAIN - MILD Mupirocin (Bactroban 2 % Oint*) 1 applic TOPICAL DAILY [facility] Last Admin: 03/24/18 08:50 Dose: 1 applic Ondansetron HCl (Zofran Inj*) 4 mg IV Q6H PRN PRN Reason: NAUSEA Last Admin: 03/22/18 09:08 Dose: 4 mg Pantoprazole Sodium (Protonix Tab*) 40 mg PO QPM [facility] Last Admin: 03/23/18 17:14 Dose: 40 mg Potassium Chloride (Klor Con Er Tab*) 40 meq PO ONCE ONE Stop: 03/24/18 15:04 Prednisone (Deltasone Tab*) 40 mg PO DAILY [facility] Last Admin: 03/24/18 08:50 Dose: 40 mg Sertraline HCl (Zoloft*) 25 mg PO DAILY [facility] Last Admin: 03/24/18 08:50 Dose: 25 mg Vancomycin HCl (Vancomycin Cap*) 250 mg PO QID [facility] Last Admin: 03/24/18 12:05 Dose: 250 mg Vital Signs - 8 hr 03/24/18 03/24/18 03/24/18 07:28 08:11 08:44 Temperature 98.2 F Pulse Rate 95 84 Respiratory 18 Rate Blood Pressure 163/75 148/76 (mmHg) O2 Sat by Pulse 98 Oximetry 03/24/18 03/24/18 03/24/18 08:50 08:57 09:11 Temperature Pulse Rate Respiratory 18 18 18 Rate Blood Pressure (mmHg) O2 Sat by Pulse Oximetry 03/24/18 03/24/18 03/24/18 10:09 11:56 12:05 Temperature 98.4 F Pulse Rate 94 Respiratory 18 18 18 Rate Blood Pressure 126/51 (mmHg) O2 Sat by Pulse 94 Oximetry 03/24/18 13:40 Temperature Pulse Rate Respiratory 18 Rate Blood Pressure (mmHg) O2 Sat by Pulse Oximetry Oxygen Devices in Use Now: Nasal Cannula Appearance: alert, mild distress Eyes: PERRLA Ears/Nose/Mouth/Throat: Mucous Membranes Moist Neck: NL Appearance and Movements; NL JVP, Trachea Midline Respiratory: - - poor air entry, course, wheezing Abdominal: NL Sounds; No Tenderness; No Distention Extremities: No Clubbing, Cyanosis, - - left midfoot ampuation Neurological: Alert and Oriented x 3 Nutrition: Taking PO's, - Result Diagrams: 03/24/18 05:56 03/24/18 05:56 Microbiology and Other Data: Microbiology 03/20/18 05:05 Urine Culture - Final Urine No Growth (<1,000 CFU/mL) 03/20/18 02:16 Influenza Types A,B Antigen - Final Nasal Specimen received for Influenza A/B Molecular testing Diagnostic Imaging: REPEAT CXR 03/22/18: Patient Name: JULI PERRY Medical Record#: [id number] Ordering Physician: Nolvia Virk NP Acct.#: [id number] : 1980 Age: 37 Sex: F Location: [facility] Exam Date: 03/22/181814 ADM Status: ADM IN Order Information: CHEST AP PORTABLE Accession Number: [id number] CPT: 09250 Indication: Abnormal breast sounds, pneumonia. Single frontal view of the chest performed at 1835 hours was reviewed. Comparison is made with previous exam dated March 20, 2018. No mediastinal shift is noted. Heart is mildly enlarged but is normal in configuration. Lung hernandez appear clear. IMPRESSION: NO ACTIVE CARDIOPULMONARY DISEASE IS NOTED. MILD CARDIOMEGALY R1NF . Preliminary Imaging Read R1NF <Electronically signed by Arianna Griffin MD in [place]> 03/23/18815 Dictated By: Arianna Griffin MD Dictated Date/Time: 03/23/18815 Transcribed Date/Time: 03/23/18814 Copy to: CT CHEST ABDOMEN AND PELVIS 03/18/18: Patient Name: JULI PERRY Medical Record#: [id number] Ordering Physician: Daria Tan MD Acct.#: [id number] : 1980 Age: 37 Sex: F Location: EMERGENCY DEPARTMENT Exam Date: 03/18/18 0112 ADM Status: REG ER Order Information: CT CHEST/ABD/ PEL W/O Accession Number: [id number] CPT: 10115 EXAM: CT Chest Without Contrast EXAM DATE/TIME: 03/18/2018 1:38 AM CLINICAL HISTORY: 37 years old, female; Signs and symptoms; Fever TECHNIQUE: Axial computed tomography images of the chest without intravenous contrast. All CT scans at this facility use at least one of these dose optimization techniques: automated exposure control; mA and/or kV adjustment per patient size (includes targeted exams where dose is matched to clinical indication); or iterative reconstruction. Coronal and sagittal reformatted images were created and reviewed. COMPARISON: PELV WO CT PELVIS W/O 03/05/2018 10:39 AM FINDINGS: Lungs: Minimal patchy ground glass infiltrates bilaterally. Minimal scattered fibro-atelectatic change, greatest in the right middle lobe and lingula. Pleural space: Normal. No pneumothorax. No pleural effusion. Heart: Coronary artery calcifications are present. Aorta: Normal. No aortic aneurysm. Lymph nodes: Small scattered mediastinal lymph nodes which are upper normal. Bones/joints: Unremarkable. No acute fracture. Soft tissues: Unremarkable. IMPRESSION: 1. Minimal scattered fibro-atelectatic change, greatest in the lingula and right middle lobe and minimal patchy ground glass infiltrates, greatest in the lower lobes. 2. Otherwise negative CT chest. Patient Name: JULI PERRY Medical Record#: [id number] Ordering Physician: Yamil Garcia MD Acct.#: [id number] : 1980 Age: 37 Sex: F Location: [address] [place] [address] Exam Date: 03/20/18221 ADM Status: ADM IN Order Information: CHEST PA & LAT 2 VWS Accession Number: [id number] CPT: 44905 HISTORY: f/u pneumonia COMPARISONS: March 17, 2018 VIEWS: 4: Frontal dual-energy and lateral views of the chest. FINDINGS: CARDIOMEDIASTINAL SILHOUETTE: The cardiac silhouette is mildly enlarged. The cardiomediastinal silhouette is otherwise normal. TIFFANI: The tiffani are normal. PLEURA: The costophrenic angles are sharp. No pleural abnormalities are noted. LUNG PARENCHYMA: The lungs are clear. ABDOMEN: The upper abdomen is clear. There is no subphrenic gas. BONES AND SOFT TISSUES: No bone or soft tissue abnormalities are noted. OTHER: None. IMPRESSION: STABLE MILD CARDIOMEGALY. NO ACTIVE CARDIOPULMONARY DISEASE. R0 Preliminary Imaging Read R0 <Electronically signed by Samuel Baker MD in [place]> 03/20/18 075 Dictated By: Samuel Baker MD Dictated Date/Time: 03/20/18758 Transcribed Date/Time: 03/20/18757 Copy to: Assess/Plan/Problems-Billing Assessment: This is a 37 year old female with complex past medical history including ESRD on PD, PAD on coumadin, IDDM, chronic pain, COPD and obesity that presents with SOB fevers and chills after haivng left AMA on 03/18/18, upgraded to ICU for worsening hypoxic respiratory failure with acidosis, back on medical floor today. - Patient Problems (1) Pneumonia Code(s): J18.9 - PNEUMONIA, UNSPECIFIED ORGANISM SNOMED Code(s): 942043573 Comment: - Maintaining on O2 via NC today but lung sounds are worse - Continue zosyn empirically, likely COPD exac in addition to ground glass opacities/consolidations on CT scan - Change to duonebs Q4h with flutter valve, robitussin Q6h - Change to IV solumedrol Q8h - Afebrile (2) COPD (chronic obstructive pulmonary disease) Code(s): J44.9 - CHRONIC OBSTRUCTIVE PULMONARY DISEASE, UNSPECIFIED SNOMED Code(s): 15754475 Comment: - Now with acute on chronic hypoxic respiratory failure requiring bipap this admission - Continue inhalers, added duonebs - Change to IV solumendrol and DC prednisone - Repeat CXR does not show any new interval findings (3) Chronic pain Code(s): G89.29 - OTHER CHRONIC PAIN SNOMED Code(s): 02381153 Comment: - Likely combination of diabetic neuropathy and chronic disease - Continue methadone 5mg Q8h and lyrica (4) PAD (peripheral artery disease) Code(s): I73.9 - PERIPHERAL VASCULAR DISEASE, UNSPECIFIED SNOMED Code(s): 468992893 Comment: - On coumadin - INR continuing to rise in spite of decreased dosing - Hold coumadin tonight and follow INR in AM (5) ESRD on peritoneal dialysis Code(s): N18.6 - END STAGE RENAL DISEASE; Z99.2 - DEPENDENCE ON RENAL DIALYSIS SNOMED Code(s): 17119522 Comment: - On PD at night - Stable (6) Clostridium difficile diarrhea Code(s): A04.72 - ENTEROCOLITIS D/T CLOSTRIDIUM DIFFICILE, NOT SPCF RECUR SNOMED Code(s): 0813497862924 Comment: - Continue vancomycin oral QID, very frequent stools - Will consult ID in the AM (7) HTN (hypertension) Code(s): I10 - ESSENTIAL (PRIMARY) HYPERTENSION SNOMED Code(s): 83785786 Comment: - continue losartan (8) Hx of insulin dependent diabetes mellitus Code(s): Z86.39 - PERSONAL HISTORY OF ENDO, NUTRITIONAL AND METABOLIC DISEASE SNOMED Code(s): 911791838 Comment: - Remains mildly hypoglycemic on D5 and 1/2 NS - Per RN, patient not eating much, will cancel long-atcing insulin for now and do not cover unless BG>200 (9) Abscess of buttock, right Current Visit: No Code(s): L02.31 - CUTANEOUS ABSCESS OF BUTTOCK SNOMED Code (s): 96259537 Comment: - Recent buttock abscess & perianal fistula s/p I&D 03/04-03/05, left AMA per record (10) DVT prophylaxis Code(s): FWL5724 - SNOMED Code(s): 474351154 Comment: - On coumadin, which has been supratherapeutic, continue to adjust dosing for goal INR 2-3 (11) Full code status Code(s): Z78.9 - OTHER SPECIFIED HEALTH STATUS SNOMED Code(s): 441358558 Status and Disposition: Inpatient, DC home when medically stable.
[2018-03-24] MEDS: ZOSYN 3.375 GM Q12H per EXTENDED INFUSION IVPB SCH ×2 (16:05)
[2018-03-24] MEDS ORDERED: GuaiFENesin DM* 5 ML UDC PO PRN (16:28)
[2018-03-24] MEDS ORDERED: methylPREDNISolone SOD 40 MG* 1 ML VIAL IM SCH (17:00)
[2018-03-24] MEDS: methylPREDNISolone SOD 40 MG* 1 ML VIAL IV SCH (17:06)
[2018-03-24] MEDS: Pantoprazole TAB * 40 MG TAB PO SCH (17:06)
--- NOTE | 2018-03-24 22:56 | PN ---
Progress Note - Progress Note Date of Service: 03/24/18 Note: Glucose > 300, D/C D5 1/2 NS
[2018-03-25] MEDS: methylPREDNISolone SOD 40 MG* 1 ML VIAL IV SCH (00:53)
[2018-03-25 01:30] VITALS: BP 167/54
[2018-03-25] MEDS: Albuterol/Ipratropium NEB.SOL* Albuterol 2.5 MG/Ipratropium 0.5 MG 3 ML INH SCH (04:13)
[2018-03-25] MEDS: ZOSYN 3.375 GM Q12H per EXTENDED INFUSION IVPB SCH ×2 (04:44)
--- NOTE | 2018-03-25 11:20 | DS ---
CC: Aishwarya Solis MD * DISCHARGE SUMMARY: DATE OF ADMISSION: 03/20/18 DATE OF DISCHARGE: 03/25/18 The patient is leaving against medical advice. PRIMARY CARE PHYSICIAN: Aihswarya Solis MD. PRINCIPAL DIAGNOSIS: Clostridium difficile colitis. SECONDARY DIAGNOSES: 1. Community-acquired pneumonia. 2. Chronic obstructive pulmonary disease exacerbation. 3. End-stage renal disease, on peritoneal dialysis. 4. Chronic hypoxic respiratory failure and chronic obstructive pulmonary disease, on oxygen. 5. Diabetes. MEDICATIONS: New medications prescribed at discharge: Flagyl 125 mg p.o. 4 times a day x7 days for a total of 10 days. Her remaining home medications are unchanged as follows: 1. Bethanechol 25 mg p.o. 4 times a day. 2. Aspirin 81 mg p.o. daily. 3. Albuterol inhaler 2 puffs every 6 hours as needed. 4. Albuterol nebulizer every 4 hours as needed. 5. Gabapentin 200 mg p.o. t.i.d. 6. Calcitriol 0.25 mcg p.o. t.i.d. 7. Symbicort 2 puffs inhaled b.i.d. 8. Phenergan 25 mg every 6 hours as needed. 9. Omeprazole 40 mg daily. 10. [place]-3 fatty acid 1000 mg daily. 11. Methadone 5 mg every 8 hours as needed. 12. Losartan 100 mg p.o. daily. 13. Lantus 80 units at bedtime. 14. NovoLog sliding scale. 15. Warfarin 7.5 mg p.o. daily. 16. Zoloft 25 mg p.o. daily. HOSPITAL COURSE: Please refer to the medical records for more thorough detailed history of the patient's hospitalization. The patient was admitted initially on the 03/18/18 and diagnosed with pneumonia. The following later that day, the patient states her respiratory status was back to her baseline. She was sent home to complete a 7-day course of Levaquin and started on prednisone taper. She returned the following morning with fever, chills, and sweats, chest pain with coughing, found to have a low-grade temperature. The patient was started on Zosyn and continued on the prednisone and her inhaler regimen. The patient was then during her hospitalization had an episode where she was hypotensive, diaphoretic, and the concern was for early worsening sepsis. She was transferred to the ICU. She was noted to have diarrhea as well. She was also hypoglycemic at that time. No significant findings on repeat chest x-ray. Her chest x-ray on the 03/23/18 showed no active cardiopulmonary disease. On the 03/20/18, it showed stable cardiomegaly, again no active cardiopulmonary disease. Her C. diff came back positive on the and she was started on vancomycin and she remained on Zosyn. Her white count peaked on the 03/20/18 at 22 and has been trending down. Her INR has been slightly elevated; on the 03/24/18, it was 3.36. Her Coumadin was held. The patient was briefly on D5 half normal for hypoglycemia which came back up on day of discharge. The patient was upset after being transferred back out of the ICU to the floor that her boyfriend could not stay. We discussed that he would be allowed to stay but then he left without a phone. She was not able to contact him. She was very frustrated that he could not be there. She is going to leave against medical advice. She has since called her father, who is coming to pick her up. She has capacity. She understands the risk of leaving with her C. diff colitis, worsening infection, risk for bowel perforation, and . I did discuss continuing vancomycin for her C. diff colitis. She has completed 7 days of antibiotics for her pneumonia and she needs to follow up with her primary care physician today to evaluate her respiratory status. She is going to be provided with oxygen at discharge. No further steroids at this point. Again, the patient is leaving against medical advice. PATIENT TIME: Greater than 60 minutes spent with the patient, more than half the time was spent in direct patient contact. [id number]/[facility] #: [id number] [facility]
== END 2018-03-25 05:20 | disposition left against medical advice (07) | DRG 248 ==
LOC: ED 01:45 → MED 04:44 → ICU 03-22 19:55 → MED 03-24 00:34
PROVIDERS: ADMIT Internal Medicine; ATTEND Pediatrics
PROC: 3E1M39Z Irrigation of Peritoneal Cavity using Dialysate, Percutaneous Approach (ICD-10-PCS; principal; 2018-03-20)
DX: A04.72 Enterocolitis due to Clostridium difficile, not specified as recurrent (principal); J18.9 Pneumonia, unspecified organism; E11.10 Type 2 diabetes mellitus with ketoacidosis without coma; N18.6 End stage renal disease; J96.11 Chronic respiratory failure with hypoxia; I12.0 Hypertensive chronic kidney disease with stage 5 chronic kidney disease or end stage renal disease; J44.1 Chronic obstructive pulmonary disease with (acute) exacerbation; J98.11 Atelectasis; L02.31 Cutaneous abscess of buttock; Z99.81 Dependence on supplemental oxygen; E11.22 Type 2 diabetes mellitus with diabetic chronic kidney disease; E11.649 Type 2 diabetes mellitus with hypoglycemia without coma; E11.43 Type 2 diabetes mellitus with diabetic autonomic (poly)neuropathy; E11.51 Type 2 diabetes mellitus with diabetic peripheral angiopathy without gangrene; K31.84 Gastroparesis; K21.9 Gastro-esophageal reflux disease without esophagitis; F41.9 Anxiety disorder, unspecified; F32.9 Major depressive disorder, single episode, unspecified; G89.4 Chronic pain syndrome; F17.210 Nicotine dependence, cigarettes, uncomplicated; Z99.2 Dependence on renal dialysis; Z80.1 Family history of malignant neoplasm of trachea, bronchus and lung; Z82.49 Family history of ischemic heart disease and other diseases of the circulatory system; Z88.2 Allergy status to sulfonamides; Z88.8 Allergy status to other drugs, medicaments and biological substances; Z91.048 Other nonmedicinal substance allergy status; Z79.01 Long term (current) use of anticoagulants; Z79.82 Long term (current) use of aspirin; Z79.4 Long term (current) use of insulin; Z79.891 Long term (current) use of opiate analgesic; Z79.52 Long term (current) use of systemic steroids; Z79.899 Other long term (current) drug therapy
CPT/HCPCS: 36415; 36600; 71045; 71046; 80048; 80053; 81003; 81015; 82803; 83605; 85025; 85610; 87086; 87493; 94640; 94660; 99284; A9270-GY; J2270; J2405; J2543; J2920; J2930; J3370; J7512; Q5106

== ENCOUNTER 2018-03-30 08:36 | Observation (INO) | payer OTHER ==
[2018-03-30] MEDS ORDERED: NS 0.9% 1000 ML** 1,000 ML IV ONE (08:54)
[2018-03-30] MEDS ORDERED: NS 0.9% 1000 ML** 1,000 ML IV.FLUID IV ONE (09:04)
[2018-03-30] MEDS ORDERED: Levofloxacin 750 MG IVPREMIX(* 750 MG/150 ML BAG IVPB ONE (09:04)
[2018-03-30] MEDS ORDERED: Piperacillin/Tazobac ADVAN(*) 3.375 GM in NS 0.9% 100 ML* 100 ML IVPB ONE (09:04)
[2018-03-30] MEDS ORDERED: Ondansetron INJ* 2 MG/ML VIAL IV ONE (09:23)
[2018-03-30] MEDS ORDERED: Morphine VIAL* 10 MG/ML 1 ML VIAL IV ONE (09:23)
[2018-03-30 09:32] LABS: ABS Basophils 0.1 10^3/ul (0-0.2); ABS Eosinophils 0.3 10^3/ul (0-0.6); ABS Lymphocytes 0.9 10^3/ul (1.0-4.8); ABS Monocytes 1.3 10^3/ul (0-0.8); ABS Neutrophils 17.4 10^3/ul (1.5-7.7); ABS Nucleated RBC 0 10^3/ul; Eosinophil % 1.5 %; Hematocrit 28 % (35-47); Lymphocyte % 4.3 %; Mean Corpuscular HGB Conc 32 g/dl (31-36); Mean Corpuscular Hemoglobin 30 pg (27-31); Mean Corpuscular Volume 93 fL (80-97); Mean Platelet Volume 9.2 fL (7.4-10.4); Nucleated Red Blood Cells % 0; Platelet Count 279 10^3/ul (150-450); Red Blood Count 3.04 10^6/ul (4.00-5.40); Red Cell Distribution Width 17 % (10.5-15); White Blood Count 19.9 10^3/ul (3.5-10.8)
[2018-03-30] MEDS ORDERED: Ondansetron INJ* 2 MG/ML VIAL ONE (09:37)
[2018-03-30 09:48] LABS: Albumin/Globulin Ratio 0.9 (1-3); BUN/Creatinine Ratio 6.7 (8-20); C Reactive Protein 250.84 mg/L (<8.01); Calcium 8.8 mg/dL (8.6-10.3); EGFR African American 9.3 (>60); EGFR Non-African American 7.7 (>60); Globulin 3.2 g/dL (2-4); Magnesium 1.5 mg/dL (1.9-2.7); Potassium 3.4 mmol/L (3.5-5.0); Total Bilirubin 0.2 mg/dL (0.2-1.0); Total Protein 6.2 g/dL (6.4-8.9)
[2018-03-30 09:50] LABS: Influenza A Molecular NEGATIVE (Negative); Influenza B Molecular NEGATIVE (Negative)
[2018-03-30 09:53] LABS: Troponin I 0.07 ng/mL (<0.04)
--- NOTE | 2018-03-30 10:07 | ED ---
Shortness of Breath - HPI Summary HPI Summary: Patient is a 37-year-old female who has been seen multiple times in the ED and has a history of COPD, ESRD on PD, hypoxic respiratory failure, diabetes, community-acquired pneumonia and most recently C. difficile. She was recently discharged on 03/25/18 from a stay for 1 week on both the hospital floor and the ICU. She states after discharge, she felt improved 2 days. However over the last 3 days she has felt worsening cough, shortness of breath, requiring 5 L at home (normally only requires 2 L at baseline). She is also endorsing chest pains radiating to the left side of the neck as well as down the arm. Endorses nausea, but denies any vomiting. She states her bowel movements have been becoming less frequent, however continues to have diarrhea. During her last stay, last week in the ICU, she was found to be hypotensive, diaphoretic with sepsis. She was diagnosed with community-acquired pneumonia and started on Zosyn at the time. She was found to have C. difficile and was finally discharged 5 days ago with a prescription for metronidazole. She remains on her Coumadin. She ended up leaving AMA 5 days ago d/t her boyfriend not being able to stay with her in the room. She remains on flaygl, but denies any current abx. - History of Current Complaint Chief Complaint: EDFluSymptoms Time Seen by Provider: 03/30/18 08:52 Hx Obtained From: Patient Onset/Duration: Gradual Onset Timing: Constant Dyspnea At: Rest Aggrevating Factors: Deep Breaths, Recumbent Position Alleviating Factors: Upright Position Associated Signs & Symptoms: Cough (Productive), Wheezing, Chest Pain Unrelated to Cough, Nasal Congestion - Risk Factors Pulmonary Embolism: Bedrest, DVT, Previous PE, Smoking Cardiac: Prior [place], CAD, Elevated lipids, Diabetes Pseudomonas: Chronic Lung Disease Tuberculosis: Immune Deficiency, Malnutrition, Diabetes, Chronic Respiratory Failure, Smoking - Allergy/Home Medications Allergies/Adverse Reactions: Allergies Allergy/AdvReac Type Severity Reaction Status Date / Time Adhesive Tape [Plastic Tape] Allergy Mild Blisters Verified 03/30/18 08:40 doxycycline Allergy Unknown Verified 03/30/18 08:40 Reaction Details erythromycin base Allergy See Comment Verified 03/30/18 08:40 heparin Allergy See Comment Verified 03/30/18 08:40 metoclopramide [From Reglan] Allergy Hives Verified 03/30/18 08:40 metronidazole [From Flagyl] Allergy Nausea And Verified 03/30/18 08:40 Vomiting niacin Allergy Rash Verified 03/30/18 08:40 ropinirole [From Requip] Allergy Hives Verified 03/30/18 08:40 Sulfa (Sulfonamide Allergy Vomiting Verified 03/30/18 08:40 Antibiotics) PMH/Surg Hx/FS Hx/Imm Hx Previously Healthy: No Endocrine/Hematology History: Reports: Hx Anticoagulant Therapy - Aspirin., Hx Blood Transfusions, Hx Diabetes, Hx Thyroid Disease - nodule, Hx Anemia - hx of - reports had tranfusion in 2014 after mi Cardiovascular History: Reports: Hx Angina, Hx Cardiac Arrest, Hx Cardiomegaly, Hx Coronary Artery Disease, Hx Deep Vein Thrombosis, Hx Hypercholesterolemia, Hx Hypertension, Hx Myocardial Infarction, Hx Peripheral Vascular Disease, Other Cardiovascular Problems/Disorders Denies: Hx Congestive Heart Failure, Hx Pacemaker/ICD, Hx Valvular Heart Disease Respiratory History: Reports: Hx Asthma, Hx Chronic Obstructive Pulmonary Disease (COPD) - smoker, Hx Pneumonia, Hx Sleep Apnea, Other Respiratory Problems/Disorders - acute respipatory failure with hypoxia - jan 2016 Denies: Hx Lung Cancer, Hx Pulmonary Embolism - pt says no, although documented in [facility] GI History: Reports: Hx Gall Bladder Disease, Hx Gastroesophageal Reflux Disease , Other GI Disorders - GASTROPARESIS - TAKING OMEPRAZOLE, reglan and zofran Denies: Hx Gastrointestinal Bleed, Hx Ulcer, Hx Urosepsis History: Reports: Hx Acute Renal Failure, Hx Chronic Renal Failure - ESRD on PD, Hx Dialysis - PERITONEAL, Hx Kidney Stones, Hx Renal Disease - ESRD on home peritoneal dialysis , Other Problems/Disorders Musculoskeletal History: Reports: Hx Arthritis - back, hips, Hx Back Problems - Sciatica and Herniated L3 disk, Other Musculoskeletal History - partial amputation of toes/foot Sensory History: Reports: Hx Contacts or Glasses, Hx Eye Prosthesis - left, 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, very limited, Hx Vision Problem Neurological History: Reports: Other Neuro Impairments/Disorders - neuropathy Denies: Hx Transient Ischemic Attacks (TIA) Psychiatric History: Reports: Hx Anxiety, Hx Depression, Hx Bipolar Disorder Denies: Hx Eating Disorder, Hx Panic Disorder, Hx Schizophrenia, Hx of Violent Episodes Against Others - Cancer History Cancer Type, 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 MELANOMA REMOVED FROM [facility] 2012 (PROCEDURE DONE 4X);. CARDIAC CATH 2013 - NO STENTS;. LEFT WRIST FISTULA PLACEMENT ([facility]) 2013;. HEMODIALYSIS CATH RIGHT CHEST WALL 2013;. PERITONEAL DIALYSIS CATH 03/2014;. CHEST WALL CATH REMOVAL 08/2015 [facility] [place];. RIGHT GREAT TOE AMPUTATION, [facility] 05/2015;. PLACEMENT RIGHT JUGULAR TESIO HEMODIALYSIS CATHETER [facility] [place] 10/22/2015;. REMOVAL OF JUGULAR CATH - OCT 2015. CARDIAC CATH - stentsx2 right leg. PARTIAL AMPUTATION RIGHT TOES 06/2016. RIGHT TOES ALL REMOVED Hx Anesthesia Reactions: No - Immunization History Date of Tetanus Vaccine: utd Date of Influenza Vaccine: 11/2016 Hx Pertussis Vaccination: Yes Immunizations Up to Date: Yes Infectious Disease History: No Infectious Disease History: Reports: Hx of Known/Suspected MRSA - MRSA R 1st toe , History Other Infectious Disease - GANGRENE Denies: Hx Clostridium Difficile, Hx Hepatitis, Hx Human Immunodeficiency Virus (HIV), Hx Shingles, Hx Tuberculosis, Traveled Outside the in Last 30 Days - Family History Known Family History: Positive: Cardiac Disease - father [place] at 42 y/o, Hypertension, Other - Positive for bipolar and depression. Completed suicide to sister. - Social History Occupation: Unemployed, Disabled Lives: With Family Alcohol Use: None Hx Substance Use: No Substance Use Type: Reports: None Substance Use Comment - Amount & Last Used: methadone Hx Tobacco Use: Yes Smoking Status (MU): Heavy Every Day Tobacco Smoker Type: Cigarettes Amount Used/How Often: 1 PPD Length of Time of Smoking/Using Tobacco: 20 YEARS Have You Smoked in the Last Year: Yes Review of Systems Positive: Fever, Chills, Fatigue, Skin Diaphoresis Negative: Blurred Vision, Diplopia Negative: Sore Throat, Ear Ache, Nasal Discharge Positive: Palpitations, Chest Pain Positive: Shortness Of Breath, Cough Positive: Diarrhea, Nausea. Negative: Abdominal Pain, Vomiting Positive: see HPI Negative: Arthralgia, Myalgia, Decreased ROM, Edema Negative: Rash, Bruising Positive: Weakness Psychological: Normal All Other Systems Reviewed And Are Negative: Yes Physical Exam Triage Information Reviewed: Yes Vital Signs On Initial Exam: Initial Vitals Temp Pulse Resp BP Pulse Ox 99 F 121 18 170/79 99 03/30/18 08:40 03/30/18 08:40 03/30/18 08:40 03/30/18 08:40 03/30/18 08:40 Vital Signs Reviewed: Yes Appearance: Positive: Ill-Appearing, Obese Skin: Positive: Diaphoretic, Other Head/Face: Positive: Normal Head/Face Inspection Eyes: Positive: EOMI, HILLARY, Conjunctiva Clear Neck: Positive: No Lymphadenopathy Respiratory/Lung Sounds: Positive: Decreased Breath Sounds Cardiovascular: Positive: RRR Musculoskeletal: Positive: Strength/ROM Intact Neurological: Positive: Speech Normal Psychiatric: Positive: Affect/Mood Appropriate AVPU Assessment: Alert Diagnostics - Vital Signs Vital Signs Temp Pulse Resp BP Pulse Ox 03/30/18 09:34 20 03/30/18 08:55 99.3 F 03/30/18 08:40 99 F 121 18 170/79 99 - Laboratory Lab Results: Lab Results 03/30/18 03/30/18 03/30/18 Range/Units 09:13 09:13 09:13 WBC 19.9 H (3.5-10.8) 10^3/ul RBC 3.04 L (4.00-5.40) 10^6/ul Hgb 9.0 L (12.0-16.0) g/dl Hct 28 L (35-47) % MCV 93 (80-97) fL MCH 30 (27-31) pg MCHC 32 (31-36) g/dl RDW 17 H (10.5-15) % Plt Count 279 (150-450) 10^3/ul MPV 9.2 (7.4-10.4) fL Neut % (Auto) 87.6 % Lymph % (Auto) 4.3 % Bradley % (Auto) 6.3 % Eos % (Auto) 1.5 % Baso % (Auto) 0.3 % Absolute Neuts (auto) 17.4 H (1.5-7.7) 10^3/ul Absolute Lymphs (auto) 0.9 L (1.0-4.8) 10^3/ul Absolute Monos (auto) 1.3 H (0-0.8) 10^3/ul Absolute Eos (auto) 0.3 (0-0.6) 10^3/ul Absolute Basos (auto) 0.1 (0-0.2) 10^3/ul Absolute Nucleated RBC 0 10^3/ul Nucleated RBC % 0 D-Dimer, Quantitative (Less Than 230) ng/mL Sodium 134 L (135-145) mmol/L Potassium 3.4 L (3.5-5.0) mmol/L Chloride 95 L (101-111) mmol/L Carbon Dioxide 24 (22-32) mmol/L Anion Gap 15 H (2-11) mmol/L BUN 41 H (6-24) mg/dL Creatinine 6.12 H (0.51-0.95) mg/dL Est GFR ( Amer) 9.3 (>60) Est GFR (Non-Af Amer) 7.7 (>60) BUN/Creatinine Ratio 6.7 L (8-20) Glucose 302 H (70-100) mg/dL Lactic Acid 2.0 (0.5-2.0) mmol/L Calcium 8.8 (8.6-10.3) mg/dL Magnesium 1.5 L (1.9-2.7) mg/dL Total Bilirubin 0.20 (0.2-1.0) mg/dL AST 5 L (13-39) U/L ALT 15 (7-52) U/L Alkaline Phosphatase 109 H (34-104) U/L Troponin I 0.07 H* (<0.04) ng/mL C-Reactive Protein 250.84 H (<8.01) mg/L B-Natriuretic Peptide (<=100) pg/mL Total Protein 6.2 L (6.4-8.9) g/dL Albumin 3.0 L (3.2-5.2) g/dL Globulin 3.2 (2-4) g/dL Albumin/Globulin Ratio 0.9 L (1-3) Lipase 30 (11.0-82.0) U/L Influenza A (Rapid) (Negative) Influenza B (Rapid) (Negative) 03/30/18 03/30/18 03/30/18 Range/Units 09:13 09:13 09:38 WBC (3.5-10.8) 10^3/ul RBC (4.00-5.40) 10^6/ul Hgb (12.0-16.0) g/dl Hct (35-47) % MCV (80-97) fL MCH (27-31) pg MCHC (31-36) g/dl RDW (10.5-15) % Plt Count (150-450) 10^3/ul MPV (7.4-10.4) fL Neut % (Auto) % Lymph % (Auto) % Bradley % (Auto) % Eos % (Auto) % Baso % (Auto) % Absolute Neuts (auto) (1.5-7.7) 10^3/ul Absolute Lymphs (auto) (1.0-4.8) 10^3/ul Absolute Monos (auto) (0-0.8) 10^3/ul Absolute Eos (auto) (0-0.6) 10^3/ul Absolute Basos (auto) (0-0.2) 10^3/ul Absolute Nucleated RBC 10^3/ul Nucleated RBC % D-Dimer, Quantitative 236 H (Less Than 230) ng/mL Sodium (135-145) mmol/L Potassium (3.5-5.0) mmol/L Chloride (101-111) mmol/L Carbon Dioxide (22-32) mmol/L Anion Gap (2-11) mmol/L BUN (6-24) mg/dL Creatinine (0.51-0.95) mg/dL Est GFR ( Amer) (>60) Est GFR (Non-Af Amer) (>60) BUN/Creatinine Ratio (8-20) Glucose (70-100) mg/dL Lactic Acid (0.5-2.0) mmol/L Calcium (8.6-10.3) mg/dL Magnesium (1.9-2.7) mg/dL Total Bilirubin (0.2-1.0) mg/dL AST (13-39) U/L ALT (7-52) U/L Alkaline Phosphatase (34-104) U/L Troponin I (<0.04) ng/mL C-Reactive Protein (<8.01) mg/L B-Natriuretic Peptide 1203 H (<=100) pg/mL Total Protein (6.4-8.9) g/dL Albumin (3.2-5.2) g/dL Globulin (2-4) g/dL Albumin/Globulin Ratio (1-3) Lipase (11.0-82.0) U/L Influenza A (Rapid) Negative (Negative) Influenza B (Rapid) Negative (Negative) Result Diagrams: 03/30/18 09:13 03/30/18 09:13 Lab Statement: Any lab studies that have been ordered have been reviewed, and results considered in the medical decision making process. Course/Dx - Course Course Of Treatment: During the course treatment, the patient was found to be hypoxic on arrival. She was immediately put on 5 L and had a sat of 97%. Tachycardia at 121, temperature 99.3 and BP 170/79. Labs obtained with a CRP of 250, d-dimer of 236. Patient remains on Coumadin. She is currently requiring 4 L in the ED to maintain a sat of above 95%. She tends to be on 2L at home. She was recently dx with PNA and C-diff and left AMA 5 days ago. She now has developed chest pains radiating to the L side of the neck and the L arm. Hx of [place] and stents. Hx of blood clots. ESRD currently on PD. Septic protocol intitiated with 2300ml fluids, zosyn and levaquin for pneumonia with possible ICU admission. Also, morphine and zofran given for pain and nausea. - Diagnoses Differential Diagnosis/HQI/PQRI: Positive: Pneumonia, Other - C. difficile, bronchitis, influenza, septicemia, COPD Provider Diagnoses: Chest pain, Bronchitis, Leukocytosis - Physician Notifications Discussed Care of Patient With: Fuentes Hardy Instructed by Provider To: Admit As Inpatient - Critical Care Time Critical Care Time: 30-74 min Discharge - Sign-Out/Discharge Documenting (check all that apply): Patient Departure Patient Received Moderate/Deep Sedation with Procedure: No - Discharge Plan Condition: Fair Disposition: ADMITTED TO [facility] Referrals: Aishwarya Solis MD [Primary Care Provider] - - Billing Disposition and Condition Condition: FAIR Disposition: Admitted to [facility]
[2018-03-30] MEDS ORDERED: NS 0.9% 1000 ML** 1,000 ML IV SCH (11:45)
[2018-03-30] MEDS ORDERED: GuaiFENesin DM* 5 ML UDC PO PRN (11:56)
[2018-03-30] MEDS ORDERED: Acetaminophen TAB* 325 MG PO PRN (11:57)
[2018-03-30] MEDS ORDERED: Albuterol 2.5 MG/3 ML NEB.SOL* (0.083%) INH PRN (11:59)
[2018-03-30] MEDS ORDERED: Albuterol HFA INHALER* 8 gm MDI INH PRN (11:59)
[2018-03-30] MEDS ORDERED: Promethazine TAB* 25 MG PO PRN (11:59)
[2018-03-30] MEDS ORDERED: Methadone TAB* 5 MG PO PRN (11:59)
[2018-03-30] MEDS ORDERED: Benzonatate CAP* 100 MG PO SCH (12:00)
[2018-03-30 12:34] LABS: Urine Appearance Turbid; Urine Bacteria Absent (Absent); Urine Bilirubin Negative (Negative); Urine Blood 1+ (Negative); Urine Color Yellow; Urine Glucose 3+(>=500 mg/dL) (Negative); Urine Ketones Negative (Negative); Urine Nitrite Negative (Negative); Urine Protein 3+(>=500 mg/dL) (Negative); Urine Red Blood Cell 2+(6-10/hpf) (Absent); Urine Specific Gravity 1.026 (1.010-1.030); Urine Squamous Epithelial Cell Present (Absent); Urine Urobilinogen Negative (Negative); Urine White Blood Cell 1+(6-10/hpf) (Absent)
[2018-03-30] MEDS ORDERED: Saline NASAL SPRAY 0.65%* BTL BOTH NARES PRN (12:40)
[2018-03-30] MEDS ORDERED: Dextrose 50% Syringe 50 ML* 25 GM/50 ML SYRINGE IV PUSH PRN (12:41)
[2018-03-30] MEDS ORDERED: Morphine VIAL* 10 MG/ML 1 ML VIAL ONE (12:48)
[2018-03-30] MEDS: Morphine INJ* 2 MG/ML 1 ML SYRINGE (TWO MG - NEW SYRINGE VERSION) IV PRN ×2 (12:51→18:17)
[2018-03-30] MEDS ORDERED: Azithromycin TAB* 250 MG PO ONE (13:00)
[2018-03-30 13:29] LABS: INR 1.16 (0.77-1.02)
[2018-03-30] MEDS ORDERED: Gabapentin CAP(*) 100 MG PO SCH (14:00)
[2018-03-30] MEDS ORDERED: metroNIDAZOLE TAB* 250 MG PO SCH (14:00)
[2018-03-30] MEDS ORDERED: Calcitriol CAP* 0.25 MCG PO SCH (14:00)
[2018-03-30] MEDS: Bethanechol TAB* 25 MG PO SCH ×2 (15:52)
[2018-03-30] MEDS ORDERED: Insulin LISPRO* 1 UNITS UNIT SUBCUT SCH (16:30)
[2018-03-30 16:34] VITALS: BP 159/70
[2018-03-30] MEDS ORDERED: Warfarin TAB(*) 7.5 MG PO SCH (17:00)
[2018-03-30] MEDS ORDERED: Pantoprazole TAB * 40 MG TAB PO SCH (18:00)
--- NOTE | 2018-03-30 19:45 | HP ---
CC: Dr. Solis * [facility] MEDICINE HISTORY AND PHYSICAL: DATE OF ADMISSION: 03/30/18 PRIMARY CARE PHYSICIAN: Dr. Solis. ATTENDING PROVIDER: Fuentes Hardy MD * (DICTATED BY ORLANDO GUALLPA NP) CHIEF COMPLAINT: Cough, chest pain with deep breathing, and shaking chills. HISTORY OF PRESENT ILLNESS: Ms. Wright is a 37-year-old female with a past medical history of end-stage renal disease, on peritoneal dialysis; insulin- dependent type 2 diabetes; chronic hypoxic respiratory failure, on 5 L nasal cannula secondary to COPD; peripheral arterial disease, on chronic warfarin therapy; and multiple recent admissions to our hospital since January for abdominal pain and then community-acquired pneumonia, and most recently for C. difficile colitis, who presents today to the hospital with concern for cough, chest pain on deep breathing, and shaking chills. Ms. Wright states that she was feeling reasonably well at the time of her discharge against medical advice on 03/25/17 after being treated here in the hospital for C. difficile colitis. However, on Saturday or of this past week, which would be 3 to 4 days ago, she developed a cough with discomfort in the center of her chest on deep breathing. She states the cough is nonproductive. She also felt some generalized malaise. She further describes upper respiratory congestion. She has had nausea, which is chronic, but no vomiting. She reports having some shaking chills, which started on Saturday. She notes a temperature up to 100. In terms of her recent C. difficile colitis, she reports her diarrhea is greatly improved, and she is tolerating oral intake well. She continues on her Flagyl therapy. In the emergency room, Ms. Wright was found to have labs, which showed a leukocytosis with a white blood cell count of 19.9, shows a CRP of 250.84. She is afebrile, but tachycardic with a heart rate running about 110. Her blood pressure is stable, running about 140 to 160 systolically. She continues on her home O2. Her chest x-ray shows no acute process, but does describes some peribronchial cuffing consistent with bronchitis. Her EKG shows no ischemia and is actually improved in terms of some T-wave inversions since last EKG during previous hospitalization. Her troponin is elevated at 0.07 consistent with previous draws and her history of end-stage renal disease. PAST MEDICAL HISTORY: 1. End-stage renal disease, on peritoneal dialysis. 2. COPD with chronic hypoxic respiratory failure, on 5 L nasal cannula at home. 3. Insulin-dependent type 2 diabetes, uncontrolled with hyperglycemia. 4. Recent admission for community-acquired pneumonia. 5. Recent admission for C. difficile colitis, continuing on Flagyl treatment. 6. Peripheral arterial disease, on chronic warfarin therapy. 7. GERD. 8. Coronary artery disease. 9. Melanoma. 10. Gastroparesis. 11. Anxiety. 12. Depression. MEDICATIONS: Today are: 1. Tylenol p.r.n. 2. Albuterol nebulizer and meter-dosed inhaler p.r.n. 3. Aspirin 81 mg p.o. daily. 4. Metronidazole 500 mg p.o. t.i.d. 5. Symbicort 160/4.5 two puffs inhaled b.i.d. 6. Bethanechol 25 mg p.o. q.i.d. 7. Losartan 100 mg p.o. daily. 8. Lantus insulin 80 units subcutaneously at bedtime. 9. NovoLog insulin via sliding scale with meals. 10. Gabapentin 200 mg p.o. t.i.d. 11. Calcitriol 0.25 mcg p.o. t.i.d. 12. Sertraline 25 mg p.o. daily. 13. Promethazine 25 mg p.o. q.8 hours p.r.n. 14. Omeprazole 40 mg p.o. q.p.m. 15. Methadone 5 mg p.o. q.8 hours p.r.n. 16. Warfarin 7.5 mg p.o. at bedtime. ALLERGIES: ADHESIVE TAPE, DOXYCYCLINE, ERYTHROMYCIN, HEPARIN, METOCLOPRAMIDE, NIACIN, ROPINIROLE, and SULFA. FAMILY HISTORY: Father had an MN at 49. She has multiple family members with diabetes. Her grandfather had lung cancer and her mother had ovarian cancer. SOCIAL HISTORY: The patient is a continued half-a-pack a day smoker. She denies any alcohol or drug use. She is disabled. She lives with her boyfriend , who is her healthcare proxy, his name is Moreno and his phone number is . REVIEW OF SYSTEMS: A 14-point review of systems was completed with Ms. Wright and all those not mentioned above were negative. PHYSICAL EXAMINATION GENERAL: Ms. Wright is lying on her side in the bed. She is in no acute distress. Her boyfriend Moreno is at the bedside. VITAL SIGNS: Temperature 99.3, pulse rate 112, respiratory rate 18, O2 saturation 98% on 4 L nasal cannula, blood pressure 167/90. LUNGS: Clear to auscultation bilaterally with no accessory muscle use and good aeration. HEART: S1, S2. No murmur, rub or gallop and regular. ABDOMEN: Soft, nontender with bowel sounds positive x4. She has a PD catheter in the right lower quadrant with dressing, which is clean, dry, and intact. EXTREMITIES: No cyanosis or edema. NEURO: She is alert. She is oriented x3. She moves all extremities equally. There is no facial asymmetry or focal weakness. Extraocular movements are intact. SKIN: Intact. DIAGNOSTIC STUDIES/LAB DATA: Sodium 134, potassium 3.4, chloride 95, serum bicarbonate 24, BUN 41, creatinine 6.12, glucose 302, lactic acid 2.0, magnesium 1.5. Troponin is 0.07. CRP 250.84, BNP is 1203. WBC 19.9, hemoglobin 9.0, hematocrit 28, platelet count 279. D-dimer 236, INR pending. Urine shows 2+ leuk esterase, but present squamous cells, and no bacteria. Flu swab is negative. Chest x-ray shows "[id number] degree of peribronchial cuffing could be seen in the setting of bronchitis or other inflammatory lung disease." The EKG shows a sinus tachycardia with a heart rate about 110, and no evidence of ischemia. ASSESSMENT AND PLAN: Ms. Wright is a 37-year-old female with a past medical history of end-stage renal disease, on peritoneal dialysis; chronic hypoxic respiratory failure, on 5 L nasal cannula; insulin-dependent type 2 diabetes, which is uncontrolled; and recent admission to our hospital for community- acquired pneumonia and then with Clostridium difficile colitis, who presents today to the hospital with concern for pain on deep breathing, cough, nasal congestion, and signs of sepsis likely secondary to bronchitis. Our plans are for observation in the hospital given her multiple comorbidities for the followin. Chest pain on deep breathing and cough: The patient's overall symptoms are consistent with bronchitis likely from a viral source. She does meet criteria for sepsis with elevated white blood cell count and tachycardia. Plan to treat primarily with supportive care with cough suppressants and pain medications available p.r.n. Also plan to treat for atypical pneumonia given the severity of her illness with azithromycin. She does have an allergy to DOXYCYCLINE. She has been given an appropriate amount of IV fluids in the ED for sepsis and plan to continue with very low dose at 50 mL per hour while she remains tachycardic given her history of underlying end-stage renal disease, and now continue for 1 L with adjustments based on her clinical course. In terms of chest pain and possible other etiologies, her troponin is elevated. Her EKG shows no evidence of ischemia. I think the troponin elevation is chronic and consistent with a history of end- stage renal disease, but will check x2. 2. End-stage renal disease, on peritoneal dialysis: I have alerted Dr. Brizuela from Nephrology that the patient is being admitted to the hospital and she will arrange for peritoneal dialysis while here. She shows no signs of fluid overload and her electrolytes are essentially normal. 3. Chronic hypoxic respiratory failure secondary to chronic obstructive pulmonary disease: The patient has no evidence of an acute exacerbation. No wheezing on examination and she is not needing additional oxygen support. Plan to continue to monitor closely and she will have albuterol available p.r.n. 4. Type 2 diabetes, insulin dependent: Plan to continue with her home Lantus and she will have lispro sliding scale with meals. 5. Peripheral arterial disease: Continue warfarin and INR is pending. 6. History of Clostridium difficile: Continue Flagyl. She reports that her diarrhea is improving. 7. Chronic pain: Continue methadone. 8. Gastroesophageal reflux disease: Continue pantoprazole. 9. Depression: Continue sertraline. 10. DVT prophylaxis with warfarin and SCDs. 11. Code status is full code. 12. Vaginitis: The patient complains of burning and increased vaginal discharge with concern for a yeast infection. Plan to check a firm swab for vaginitis and to treat accordingly based on those results, which should be available shortly. TIME SPENT: Approximately 60 minutes was spent on the admission of this patient , more than half the time was spent with the patient at the bedside reviewing the events leading up to this hospitalization, performing the physical examination, and reviewing my plan of care. ORLANDO GUALLPA, [employer] SALES MANAGER [id number]/[facility] #: [id number] VIRI
[2018-03-30] MEDS ORDERED: Insulin GLARGINE(*) 1 UNITS UNIT SUBCUT SCH (21:00)
[2018-03-31] MEDS ORDERED: Azithromycin TAB* 250 MG PO SCH (09:00)
[2018-03-31] MEDS ORDERED: Aspirin EC TAB* 81 MG TAB.EC PO SCH (09:00)
[2018-03-31] MEDS ORDERED: Losartan TAB* 25 MG PO SCH (09:00)
[2018-03-31] MEDS ORDERED: Sertraline* 25 MG TAB PO SCH (09:00)
--- NOTE | 2018-04-10 14:29 | DS ---
CC: Dr. Solis * [facility] MEDICINE DISCHARGE SUMMARY: DATE OF ADMISSION: 03/30/18 DATE OF DISCHARGE: 03/30/18 (against medical advice). PRIMARY CARE PHYSICIAN: Dr. Solis. ATTENDING PHYSICIAN: Dr. Fuentes Hardy * (dictation provided by Hortencia Jimenez NP). PRIMARY DIAGNOSIS: Sepsis secondary to suspected viral bronchitis. SECONDARY DIAGNOSES: 1. End-stage renal disease, on peritoneal dialysis. 2. Chronic obstructive pulmonary disease with chronic hypoxic respiratory failure, on 5 L nasal cannula at home. 3. Insulin-dependent type 2 diabetes, uncontrolled with hyperglycemia. 4. Recent admission for community-acquired pneumonia. 5. Recent admission for Clostridium difficile colitis, continuing Flagyl treatment. 6. Peripheral arterial disease, on chronic warfarin therapy. 7. Gastroesophageal reflux disease. 8. Coronary artery disease. 9. Melanoma. 10. Gastroparesis. 11. Anxiety. 12. Depression. MEDICATIONS: At the time of discharge are: 1. Tylenol p.r.n. 2. Albuterol nebulizer and metered-dose inhaler p.r.n. 3. Aspirin 81 mg p.o. daily. 4. Metronidazole 500 mg p.o. t.i.d. (treatment for C. diff). 5. Symbicort 160/4.5 two puffs inhaled b.i.d. 6. Bethanechol 25 mg p.o. q.i.d. 7. Losartan 100 mg p.o. daily. 8. Lantus insulin 80 units subcutaneously at bedtime. 9. NovoLog insulin via sliding scale with meals. 10. Gabapentin 200 mg p.o. t.i.d. 11. Calcitriol 0.25 mcg p.o. t.i.d. 12. Sertraline 25 mg p.o. daily. 13. Promethazine 25 mg p.o. q.8 hours p.r.n. 14. Omeprazole 40 mg p.o. q.p.m. 15. Methadone 5 mg p.o. q.8 hours p.r.n. 16. Warfarin 7.5 mg p.o. at bedtime. 17. Azithromycin 250 mg p.o. daily (treatment of bronchitis). HOSPITAL COURSE: Ms. Wright is a 37-year-old female who had originally presented to the emergency room on 03/30/18 with concerns for cough, chest pain with deep breathing, and shaking chills. Please see the dictated H and P from myself for complete details. In brief, the patient had recently been admitted to the hospital for a community-acquired pneumonia and then developed C. difficile colitis. She was discharged against medical advice on 03/25/17. She stated that she was initially feeling well, but then about 3 to 4 days prior to this admission, which would have been on or about 03/28/18, the patient suddenly developed cough with discomfort in the center of her chest on deep breathing. She had generalized malaise. She had shaking chills. In the emergency room, her labs showed leukocytosis with a white blood cell count of 19.9. BUN and creatinine were elevated, but consistent with history of end- stage renal disease. Her CRP was 250.84. She was afebrile. Her pulse was elevated with tachycardia running around 110, but she was satting well on her home oxygen actually at 3 L with a stable blood pressure. Her chest x-ray showed no acute intrathoracic process, but did show some peribronchial cuffing that could be seen in the setting of bronchitis or other inflammatory process. Her urinalysis showed 2+ leukocyte esterase, no nitrites, no bacteria. Ms. Ghotra was admitted to the hospital based on her multiple comorbid fragile medical conditions and concerns for sepsis which was thought to be secondary to bronchitis. She was started on treatment with azithromycin. Later that evening , Ms. Wright indicated that she desired to leave against medical advice. I discussed this with her at length, with her partner at the bedside. I explained to her that I was concerned that she was showing symptoms of sepsis and highly suspected this was secondary perhaps to a viral bronchitis but at this point, she deserved close observation in the hospital for continued monitoring and treatment. I have discussed with her the possibility that her condition could worsen with worsening sepsis and instability, especially in the setting of her type 2 diabetes and end-stage renal disease. She indicated understanding of this. She stated that she "just needed to get out of the hospital." She reported an intention to return to the hospital should she feel worse. She does have capacity this evening and will be allowed to leave against medical advice. I have provided her with a prescription for azithromycin and strongly encouraged her to return to the hospital at any point if she is not feeling well and assured her that certainly we would admit her again at that point. DISPOSITION: To home against medical advice. DIET: Low-carb, renal. ACTIVITY: As tolerated. FOLLOWUP PLANS: Please follow up with Dr. Solis and I have encouraged the patient to call for an appointment for reevaluation in the 3 days or less. TIME SPENT: Approximately 60 minutes was spent in the discharge against medical advice for this patient. HORTENCIA JIMENEZ NP [id number]/[facility] #: [id number] VIRI
== END 2018-03-30 19:40 | disposition home or self-care (01) | DRG 720 ==
LOC: ED 08:36 → MED 11:35 → UNDOADMIN 11:35 → MED 11:35 → UNDODISIN 19:40
PROVIDERS: ADMIT Internal Medicine; ATTEND Internal Medicine
DX: A41.9 Sepsis, unspecified organism (principal); J18.9 Pneumonia, unspecified organism; N18.6 End stage renal disease; J96.11 Chronic respiratory failure with hypoxia; A04.72 Enterocolitis due to Clostridium difficile, not specified as recurrent; E46 Unspecified protein-calorie malnutrition; E11.22 Type 2 diabetes mellitus with diabetic chronic kidney disease; E11.51 Type 2 diabetes mellitus with diabetic peripheral angiopathy without gangrene; E11.43 Type 2 diabetes mellitus with diabetic autonomic (poly)neuropathy; Z99.81 Dependence on supplemental oxygen; K31.84 Gastroparesis; E11.65 Type 2 diabetes mellitus with hyperglycemia; I25.10 Atherosclerotic heart disease of native coronary artery without angina pectoris; J40 Bronchitis, not specified as acute or chronic; J44.9 Chronic obstructive pulmonary disease, unspecified; G89.29 Other chronic pain; K21.9 Gastro-esophageal reflux disease without esophagitis; F32.9 Major depressive disorder, single episode, unspecified; B37.3 Candidiasis of vulva and vagina; F41.9 Anxiety disorder, unspecified; F17.210 Nicotine dependence, cigarettes, uncomplicated; Z99.2 Dependence on renal dialysis; Z68.35 Body mass index [BMI] 35.0-35.9, adult; Z79.01 Long term (current) use of anticoagulants; Z79.1 Long term (current) use of non-steroidal anti-inflammatories (NSAID); Z79.82 Long term (current) use of aspirin; Z79.4 Long term (current) use of insulin; Z79.891 Long term (current) use of opiate analgesic; Z79.899 Other long term (current) drug therapy; Z88.1 Allergy status to other antibiotic agents; Z88.2 Allergy status to sulfonamides; Z88.8 Allergy status to other drugs, medicaments and biological substances; Z91.048 Other nonmedicinal substance allergy status; Z82.49 Family history of ischemic heart disease and other diseases of the circulatory system; Z83.3 Family history of diabetes mellitus; Z80.41 Family history of malignant neoplasm of ovary; Z80.1 Family history of malignant neoplasm of trachea, bronchus and lung
CPT/HCPCS: 36415; 71046; 80053; 81003; 81015; 83605; 83690; 83735; 83880; 84484; 85025; 85379; 85610; 86140; 87040; 87086; 87480; 87493; 87510; 87660; 93005; 96365; 96366; 96372; 96375; 99284; A9270-GY; G0378; J2270; J2405; J2543

== ENCOUNTER 2018-04-14 11:49 | Observation (INO) | payer OTHER ==
[2018-04-14] MEDS ORDERED: Metoclopramide IV* 5 MG/ML 2 ML VIAL IV ONE (12:08)
[2018-04-14 12:34] LABS: ABS Basophils 0.1 10^3/ul (0-0.2); ABS Eosinophils 0.4 10^3/ul (0-0.6); ABS Lymphocytes 0.7 10^3/ul (1.0-4.8); ABS Monocytes 1.1 10^3/ul (0-0.8); ABS Neutrophils 13.7 10^3/ul (1.5-7.7); ABS Nucleated RBC 0 10^3/ul; Eosinophil % 2.4 %; Hematocrit 29 % (35-47); Hemoglobin 9.3 g/dl (12.0-16.0); Lymphocyte % 4.6 %; Mean Corpuscular HGB Conc 32 g/dl (31-36); Mean Corpuscular Hemoglobin 30 pg (27-31); Mean Corpuscular Volume 92 fL (80-97); Mean Platelet Volume 8.4 fL (7.4-10.4); Nucleated Red Blood Cells % 0.1; Platelet Count 424 10^3/ul (150-450); Red Blood Count 3.12 10^6/ul (4.00-5.40); Red Cell Distribution Width 17 % (10.5-15)
[2018-04-14 13:04] LABS: Albumin 2.7 g/dL (3.2-5.2); Albumin/Globulin Ratio 0.9 (1-3); BUN/Creatinine Ratio 5.3 (8-20); C Reactive Protein 199.86 mg/L (<8.01); Calcium 8.2 mg/dL (8.6-10.3); EGFR African American 8.5 (>60); Globulin 3.1 g/dL (2-4); Potassium 3.5 mmol/L (3.5-5.0); Total Bilirubin 0.3 mg/dL (0.2-1.0); Total Protein 5.8 g/dL (6.4-8.9)
[2018-04-14] MEDS ORDERED: Ondansetron INJ* 2 MG/ML VIAL IV ONE (13:32)
[2018-04-14] MEDS ORDERED: Morphine VIAL* 4 MG/ML VIAL (1 ml vial) IV ONE (13:32)
[2018-04-14 14:19] LABS: Influenza A Molecular NEGATIVE (Negative); Influenza B Molecular NEGATIVE (Negative)
[2018-04-14] MEDS ORDERED: Promethazine TAB* 25 MG PO PRN (15:42)
[2018-04-14] MEDS ORDERED: Methadone TAB* 5 MG PO PRN (15:42)
[2018-04-14] MEDS ORDERED: Albuterol 2.5 MG/3 ML NEB.SOL* (0.083%) INH PRN (15:42)
[2018-04-14] MEDS ORDERED: Albuterol HFA INHALER* 8 gm MDI INH PRN (15:42)
[2018-04-14] MEDS ORDERED: Morphine VIAL* 4 MG/ML VIAL (1 ml vial) IV PRN (15:47)
[2018-04-14] MEDS ORDERED: Dextrose 50% Syringe 50 ML* 25 GM/50 ML SYRINGE IV PUSH PRN (15:49)
[2018-04-14] MEDS: Ondansetron INJ* 2 MG/ML VIAL IV PRN (16:06)
--- NOTE | 2018-04-14 17:22 | ED ---
Nausea/Vomiting/Diarrhea HPI - HPI Summary HPI Summary: Patient is a severely immunocompromised 37-year-old female presenting to the ED with bilateral hip pain, bilateral wrist pain, nausea, vomiting, chills, sweats , fevers and diarrhea. Symptoms began several days ago with the diarrhea beginning this morning. History of chronic kidney failure and has peritoneal dialysis. History of osteomyelitis with medications. She states her at home tramadol and opioids are not improving her symptoms and like something stronger. She states she has had the flu shot. Denies any cough, congestion. Nothing makes the symptoms better or worse. Endorses insomnia. - History of Current Complaint Chief Complaint: EDGeneral Stated Complaint: GENERAL ILLNESS Time Seen by Provider: 04/14/18 12:06 Hx Obtained From: Patient Hx Last Menstrual Period: just finished ?: No Onset/Duration: Sudden Onset Timing: Constant Severity Initially: Severe Severity Currently: Moderate Pain Intensity: 8 Pain Scale Used: 0-10 Numeric Character: Cramping Aggravating Factor(s): Nothing Alleviating Factor(s): Nothing Nausea/Vomiting Duration: 12-24 hours Vomiting Characteristics: Retching Diarrhea Presence: Yes Diarrhea Frequency: Every 1-2 hours Diarrhea Duration: 0-12 hours - Risk Factors Influenza Risk Factors: Chronic Medical or Immunosuppresive Condition - Allergies/Home Medications Allergies/Adverse Reactions: Allergies Allergy/AdvReac Type Severity Reaction Status Date / Time Adhesive Tape [Plastic Tape] Allergy Mild Blisters Verified 04/14/18 12:05 doxycycline Allergy Unknown Verified 04/14/18 12:05 Reaction Details erythromycin base Allergy See Comment Verified 04/14/18 12:05 heparin Allergy See Comment Verified 04/14/18 12:05 metoclopramide [From Reglan] Allergy Hives Verified 04/14/18 12:05 metronidazole [From Flagyl] Allergy Nausea And Verified 04/14/18 12:05 Vomiting niacin Allergy Rash Verified 04/14/18 12:05 ropinirole [From Requip] Allergy Hives Verified 04/14/18 12:05 Sulfa (Sulfonamide Allergy Vomiting Verified 04/14/18 12:05 Antibiotics) PMH/Surg Hx/FS Hx/Imm Hx Previously Healthy: No Endocrine/Hematology History: Reports: Hx Anticoagulant Therapy - Aspirin., Hx Blood Transfusions, Hx Diabetes, Hx Thyroid Disease - nodule, Hx Anemia - hx of - reports had tranfusion in 2013 after mi Cardiovascular History: Reports: Hx Angina, Hx Cardiac Arrest, Hx Cardiomegaly, Hx Coronary Artery Disease, Hx Deep Vein Thrombosis, Hx Hypercholesterolemia, Hx Hypertension, Hx Myocardial Infarction, Hx Peripheral Vascular Disease, Other Cardiovascular Problems/Disorders Denies: Hx Congestive Heart Failure, Hx Pacemaker/ICD, Hx Valvular Heart Disease Respiratory History: Reports: Hx Asthma, Hx Chronic Obstructive Pulmonary Disease (COPD) - smoker, Hx Pneumonia, Hx Sleep Apnea, Other Respiratory Problems/Disorders - acute respipatory failure with hypoxia - jan 2016 Denies: Hx Lung Cancer, Hx Pulmonary Embolism - pt says no, although documented in char GI History: Reports: Hx Gall Bladder Disease, Hx Gastroesophageal Reflux Disease , Other GI Disorders - GASTROPARESIS - TAKING OMEPRAZOLE, reglan and zofran Denies: Hx Gastrointestinal Bleed, Hx Ulcer, Hx Urosepsis History: Reports: Hx Acute Renal Failure, Hx Chronic Renal Failure - ESRD on PD, Hx Dialysis - PERITONEAL, Hx Kidney Stones, Hx Renal Disease - ESRD on home peritoneal dialysis , Other Problems/Disorders Musculoskeletal History: Reports: Hx Arthritis - back, hips, Hx Back Problems - Sciatica and Herniated L3 disk, Other Musculoskeletal History - partial amputation of toes/foot Sensory History: Reports: Hx Contacts or Glasses, Hx Eye Prosthesis - left, 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, very limited, Hx Vision Problem Neurological History: Reports: Other Neuro Impairments/Disorders - neuropathy Denies: Hx Transient Ischemic Attacks (TIA) Psychiatric History: Reports: Hx Anxiety, Hx Depression, Hx Bipolar Disorder Denies: Hx Eating Disorder, Hx Panic Disorder, Hx Schizophrenia, Hx of Violent Episodes Against Others - Cancer History Cancer Type, 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 MELANOMA REMOVED FROM [facility] 2012 (PROCEDURE DONE 4X);. CARDIAC CATH 2013 - NO STENTS;. LEFT WRIST FISTULA PLACEMENT ([facility]) 2013;. HEMODIALYSIS CATH RIGHT CHEST WALL 2013;. PERITONEAL DIALYSIS CATH 03/2014;. CHEST WALL CATH REMOVAL 08/2015 [facility] [place];. RIGHT GREAT TOE AMPUTATION, [facility] [place] 05/2015;. PLACEMENT RIGHT JUGULAR TESIO HEMODIALYSIS CATHETER [facility] [place] 10/22/2015;. REMOVAL OF JUGULAR CATH - OCT 2015. CARDIAC CATH - stentsx2 right leg. PARTIAL AMPUTATION RIGHT TOES 06/2016. RIGHT TOES ALL REMOVED Hx Anesthesia Reactions: No - Immunization History Date of Tetanus Vaccine: utd Date of Influenza Vaccine: 11/2016 Hx Pertussis Vaccination: No Immunizations Up to Date: Yes Infectious Disease History: No Infectious Disease History: Reports: Hx of Known/Suspected MRSA - MRSA R 1st toe , History Other Infectious Disease - GANGRENE Denies: Hx Clostridium Difficile, Hx Hepatitis, Hx Human Immunodeficiency Virus (HIV), Hx Shingles, Hx Tuberculosis, Traveled Outside the [place] in Last 30 Days - Family History Known Family History: Positive: Cardiac Disease - father IA at 42 y/o, Hypertension, Other - Positive for bipolar and depression. Completed suicide to sister. - Social History Occupation: Unemployed, Disabled Lives: With Family Alcohol Use: None Hx Substance Use: No Substance Use Type: Reports: None Substance Use Comment - Amount & Last Used: methadone Hx Tobacco Use: Yes Smoking Status (MU): Heavy Every Day Tobacco Smoker Type: Cigarettes Amount Used/How Often: 1 PPD Length of Time of Smoking/Using Tobacco: 20 YEARS Have You Smoked in the Last Year: Yes Review of Systems Positive: Fever, Chills, Fatigue, Skin Diaphoresis Negative: Blurred Vision, Diplopia, Drainage Negative: Sore Throat, Ear Ache Negative: Chest Pain Positive: Cough. Negative: Shortness Of Breath Positive: Abdominal Pain, Vomiting, Diarrhea, Nausea Positive: see HPI Positive: Arthralgia, Myalgia, Decreased ROM Positive: Other - PVD Positive: Headache All Other Systems Reviewed And Are Negative: Yes Physical Exam Triage Information Reviewed: Yes Vital Signs On Initial Exam: Initial Vitals Pulse BP Pulse Ox 110 114/57 95 04/14/18 11:56 04/14/18 11:56 04/14/18 11:56 Vital Signs Reviewed: Yes Appearance: Positive: Ill-Appearing Skin: Negative: Warm, Skin Color Reflects Adequate Perfusion, Dry, Cold Head/Face: Positive: Normal Head/Face Inspection Neck: Positive: No Lymphadenopathy Respiratory/Lung Sounds: Positive: Clear to Auscultation Cardiovascular: Positive: RRR, Pulses are Symmetrical in both Upper and Lower Extremities. Negative: Leg Edema Left, Leg Edema Right Abdomen Description: Positive: Other: - tednerness Neurological: Positive: Sensory/Motor Intact Psychiatric: Positive: Affect/Mood Appropriate Diagnostics - Vital Signs Vital Signs Temp Pulse Resp BP Pulse Ox 04/14/18 16:09 18 04/14/18 16:00 99 18 97/56 95 04/14/18 15:00 20 04/14/18 14:00 100 14 100 04/14/18 13:53 103 17 130/84 98 04/14/18 13:49 13 04/14/18 13:00 104 17 96 04/14/18 12:18 103 14 95/65 97 04/14/18 12:00 106 97 04/14/18 11:58 110 97 04/14/18 11:57 98.6 F 108 24 114/57 96 04/14/18 11:56 110 114/57 95 - Laboratory Lab Results: Lab Results 04/14/18 04/14/18 04/14/18 Range/Units 12:22 12:22 12:22 WBC 16.0 H (3.5-10.8) 10^3/ul RBC 3.12 L (4.00-5.40) 10^6/ul Hgb 9.3 L (12.0-16.0) g/dl Hct 29 L (35-47) % MCV 92 (80-97) fL MCH 30 (27-31) pg MCHC 32 (31-36) g/dl RDW 17 H (10.5-15) % Plt Count 424 (150-450) 10^3/ul MPV 8.4 (7.4-10.4) fL Neut % (Auto) 85.8 % Lymph % (Auto) 4.6 % Luna % (Auto) 6.7 % Eos % (Auto) 2.4 % Baso % (Auto) 0.5 % Absolute Neuts (auto) 13.7 H (1.5-7.7) 10^3/ul Absolute Lymphs (auto) 0.7 L (1.0-4.8) 10^3/ul Absolute Monos (auto) 1.1 H (0-0.8) 10^3/ul Absolute Eos (auto) 0.4 (0-0.6) 10^3/ul Absolute Basos (auto) 0.1 (0-0.2) 10^3/ul Absolute Nucleated RBC 0 10^3/ul Nucleated RBC % 0.1 Sodium 131 L (135-145) mmol/L Potassium 3.5 (3.5-5.0) mmol/L Chloride 92 L (101-111) mmol/L Carbon Dioxide 25 (22-32) mmol/L Anion Gap 14 H (2-11) mmol/L BUN 35 H (6-24) mg/dL Creatinine 6.62 H (0.51-0.95) mg/dL Est GFR ( Amer) 8.5 (>60) Est GFR (Non-Af Amer) 7.0 (>60) BUN/Creatinine Ratio 5.3 L (8-20) Glucose 190 H (70-100) mg/dL Lactic Acid 2.2 H* (0.5-2.0) mmol/L Calcium 8.2 L (8.6-10.3) mg/dL Total Bilirubin 0.30 (0.2-1.0) mg/dL AST 5 L (13-39) U/L ALT 6 L (7-52) U/L Alkaline Phosphatase 80 (34-104) U/L C-Reactive Protein 199.86 H (<8.01) mg/L Total Protein 5.8 L (6.4-8.9) g/dL Albumin 2.7 L (3.2-5.2) g/dL Globulin 3.1 (2-4) g/dL Albumin/Globulin Ratio 0.9 L (1-3) Influenza A (Rapid) (Negative) Influenza B (Rapid) (Negative) 04/14/18 04/14/18 Range/Units 14:07 16:16 WBC (3.5-10.8) 10^3/ul RBC (4.00-5.40) 10^6/ul Hgb (12.0-16.0) g/dl Hct (35-47) % MCV (80-97) fL MCH (27-31) pg MCHC (31-36) g/dl RDW (10.5-15) % Plt Count (150-450) 10^3/ul MPV (7.4-10.4) fL Neut % (Auto) % Lymph % (Auto) % Luna % (Auto) % Eos % (Auto) % Baso % (Auto) % Absolute Neuts (auto) (1.5-7.7) 10^3/ul Absolute Lymphs (auto) (1.0-4.8) 10^3/ul Absolute Monos (auto) (0-0.8) 10^3/ul Absolute Eos (auto) (0-0.6) 10^3/ul Absolute Basos (auto) (0-0.2) 10^3/ul Absolute Nucleated RBC 10^3/ul Nucleated RBC % Sodium (135-145) mmol/L Potassium (3.5-5.0) mmol/L Chloride (101-111) mmol/L Carbon Dioxide (22-32) mmol/L Anion Gap (2-11) mmol/L BUN (6-24) mg/dL Creatinine (0.51-0.95) mg/dL Est GFR ( Amer) (>60) Est GFR (Non-Af Amer) (>60) BUN/Creatinine Ratio (8-20) Glucose (70-100) mg/dL Lactic Acid 1.7 (0.5-2.0) mmol/L Calcium (8.6-10.3) mg/dL Total Bilirubin (0.2-1.0) mg/dL AST (13-39) U/L ALT (7-52) U/L Alkaline Phosphatase (34-104) U/L C-Reactive Protein (<8.01) mg/L Total Protein (6.4-8.9) g/dL Albumin (3.2-5.2) g/dL Globulin (2-4) g/dL Albumin/Globulin Ratio (1-3) Influenza A (Rapid) Negative (Negative) Influenza B (Rapid) Negative (Negative) Result Diagrams: 04/14/18 12:22 04/14/18 12:22 Lab Statement: Any lab studies that have been ordered have been reviewed, and results considered in the medical decision making process. Naus/Vom/Diarrhea Course/Dx - Course Course Of Treatment: Patient is a immunocompromise 37-year-old individual who presents with multiple complaints to the ED. She has been seen several times for uncontrollable pain, persistent sepsis and other infections, kidney failure , as well as generalized illnesses. Today she reports nausea, vomiting, diarrhea, abdominal pain, bilateral wrist pain which she states is "feels like they are bruised" as well as bilateral hip pain. She's never had the hip pain or wrist pain in the past. She endorses pain is severe and is requesting Dilaudid. She is given Zofran and morphine, however I have declined her Dilaudid request. She is often seen in the ED for request for pain medications with demands of IV pain control.Labs obtained which show a leukocytosis with a left shift. Sodium of 131 however this is chronic. CRP at 199.86. Elevated CRP is also chronic. Influenza negative. Chest x-ray shows no acute cardiopulmonary findings. Discussed case with Dr. negrete, hospitalist who agrees to admit for further evaluation of her multiple symptoms. Glucose elevated at 190. Patient is stable at this time. - Differential Dx/Diagnosis Provider Diagnosis: Nausea, Vomiting, Diarrhea, Nausea & vomiting Discharge - Sign-Out/Discharge Documenting (check all that apply): Patient Departure - review running - Discharge Plan Condition: Fair Disposition: ADMITTED TO [facility] Referrals: Aishwarya Solis MD [Primary Care Provider] - - Billing Disposition and Condition Condition: FAIR Disposition: Admitted to [facility]
[2018-04-14] MEDS ORDERED: Pantoprazole TAB * 40 MG TAB PO SCH (18:00)
[2018-04-14] MEDS ORDERED: HYDROmorphone INJ1* 1 MG/ML SYRINGE IV SLOW PU PRN (19:15)
[2018-04-14] MEDS: Insulin LISPRO* 1 UNITS UNIT SUBCUT SCH (19:27)
--- NOTE | 2018-04-14 20:02 | HP ---
CC: Dr. Aishwarya Solis * HISTORY AND PHYSICAL: DATE OF ADMISSION: 04/14/18 PRIMARY CARE PROVIDER: Dr. Aishwarya Solis. ATTENDING PHYSICIAN: Dr. Jeaneth Yan * (dictated by Elena Navas NP) . CHIEF COMPLAINT: Low back pain with pain radiating down her both legs and pain in her hands. HISTORY OF PRESENT ILLNESS: Ms. Wright is a 37-year-old female with a past medical history significant for end-stage renal disease, on peritoneal dialysis ; COPD with chronic hypoxic respiratory failure, on 5 L nasal cannula at home; insulin-dependent diabetes mellitus type 2 with uncontrolled hyperglycemia; recent pneumonia; recent C. diff colitis; peripheral arterial disease, on chronic warfarin; GERD; coronary artery disease; melanoma; gastroparesis; anxiety; and depression, who presented to the emergency room with complaints of bilateral arm, leg and low back pain in addition to difficulty ambulating, nausea, vomiting, and diarrhea. Ms. Wright was recently admitted on 03/30/18 for a cough, chest pain with deep breathing and shaking. At that time, it was felt that she likely had a viral bronchitis. She was meeting sepsis criteria. She was admitted from the emergency room and continued on doxycycline. She had an elevated troponin. It was felt that this was likely consistent with her history of end-stage renal disease. Not long after the patient was admitted, she insists on leaving against medical advice and left on the same day of admission. Ms. Wright again represented to the hospital today with complaints of bilateral hand discomfort, pain in her lower back radiating down her legs, difficulty ambulating, decreased appetite, nausea, vomiting, diarrhea. She reports having fevers and chills 4 days ago. She denies shortness of breath, chest pain. She denies urinary symptoms such as urgency, dysuria, changes in frequency. In terms of her arm, leg and back pain, she states the pain is worse with moving or touching the extremities or back. She states that she has tried Tylenol and methadone without relief of her symptoms. She finds nothing that helps with the pain and nothing that makes the pain worse. She reports being unable to hold anything in bilateral hands. She also reports pain in bilateral temples, complaining of a burning sensation. She states that her hands feel as though they are bruised. She is unable to further describe this. She states today she developed nausea, vomiting, and diarrhea with some abdominal cramping. She has chronic hypoxic respiratory failure at baseline and is on 5 L of oxygen via nasal cannula. She feels that the upper respiratory symptoms she had previously this month have resolved. Due to her symptoms, she presented to the emergency room for further evaluation of her symptoms. While in the emergency room, she had a chest x-ray showing stigmata of obstructive lung disease, no acute pulmonary or cardiac process evident. She had an EKG showing an ST depression in lead III, V6, T-wave inversion in aVL. She had labs showing influenza A and B negative, CRP of 199.86, lactic acid of 2.2, white blood cell count of 16. She was anemic with a hemoglobin of 9.3, hematocrit of 29. Elevated BUN and creatinine 35 and 6.62 respectively. These are consistent with her previous labs. While in the emergency room, she received Zofran, Reglan, and morphine. She was referred to the hospitalist service for possible admission. PAST MEDICAL HISTORY: 1. End-stage renal disease, on peritoneal dialysis. 2. COPD with chronic hypoxic respiratory failure, on 5 L of oxygen via nasal cannula at home. 3. Insulin-dependent type 2 diabetes mellitus. 4. Peripheral arterial disease, on chronic warfarin therapy. 5. GERD. 6. Coronary artery disease. 7. Melanoma. 8. Gastroparesis. 9. Anxiety. 10. Depression. 11. Hypertension. 12. Hyperlipidemia. 13. History of tobacco abuse. PAST SURGICAL HISTORY: Status post right metatarsal amputation. HOME MEDICATIONS: Include: 1. Acetaminophen as needed. 2. Albuterol nebulizer 2.5 mg/3 mL, 2.5 mg inhalation every 4 hours as needed for shortness of breath or wheeze. 3. Albuterol HFA inhaler 2 puffs inhalation every 4 hours as needed for shortness of breath or wheeze. 4. Aspirin 81 mg oral daily. 5. Symbicort 160/4.5 mg 2 puffs inhalation twice daily. 6. Bethanechol 25 mg oral 4 times daily. 7. Losartan 100 mg oral daily. 8. Lantus 80 units subcutaneous at bedtime. 9. NovoLog insulin sliding scale, 0 to 1 units as directed. 10. Gabapentin 200 mg oral 3 times daily. 11. Calcitriol 0.25 mcg oral 3 times daily. 12. Sertraline 25 mg oral daily. 13. Promethazine 25 mg oral every 8 hours as needed for nausea. 14. Omeprazole 40 mg oral every evening. 15. Methadone 5 mg oral every 8 hours as needed for pain. 16. Warfarin 7.5 mg oral daily. ALLERGIES: ADHESIVE TAPE, DOXYCYCLINE, ERYTHROMYCIN, HEPARIN, REGLAN, NIACIN, REQUIP, SULFA, and FLAGYL. FAMILY HISTORY: The patient's father had an OH at age 49. Diabetes in mother, father and siblings. Cancer; grandfather with lung cancer, grandmother with ovarian cancer. SOCIAL HISTORY: She is a half a pack a day smoker. Denies alcohol or recreational drug use. She is disabled and lives with her boyfriend. Her boyfriend, Moreno Alexis will be her surrogate decision maker in the event she is unable to make decisions for herself. REVIEW OF SYSTEMS: I performed an 11-point review of systems. All the pertinent positives and negatives are mentioned in the history of present illness. The remaining review of systems are negative. PHYSICAL EXAMINATION GENERAL APPEARANCE: The patient is alert, appears to be in no acute distress. VITAL SIGNS: Temperature 98.6, heart rate 103, respiratory rate 17, O2 sat 98% on 6 L via nasal cannula, blood pressure 130/84. HEENT: Normocephalic, atraumatic. Pupils are equal and reactive to light. Extraocular movements are intact. RESPIRATORY: Lungs are clear to auscultation bilateral. There is no accessory muscle use. CARDIOVASCULAR: Regular rate and rhythm. S1, S2 present. Tachycardic. ABDOMEN: Soft, nontender, nondistended. Bowel sounds present x4. EXTREMITIES: No lower extremity edema. DP and PT pulses are 1+ and symmetric. MUSCULOSKELETAL: There is no clubbing or cyanosis noted. The patient exhibits good strength in all extremities. NEUROLOGICAL: Alert and oriented x4. Cranial nerves II through XII are grossly intact. She has equal handgrips bilateral, although they are weak bilateral. She is able to dorsi and plantarflex bilateral, but it is weak bilateral. PSYCHOLOGICAL: She is calm and cooperative. SKIN: No rashes or abnormalities seen on the visualized skin. DIAGNOSTIC STUDIES/LAB DATA: Sodium 131, potassium 3.5, chloride 92, CO2 of 25 , BUN 35, creatinine 6.62, glucose 169. White blood cell count 16.0, hemoglobin 9.3, hematocrit 24, platelet count 424. Lactic acid 2.2. CRP 199.86. Influenza A and B negative. EKG shows a sinus tachycardia, rate of 119. There is ST depression in lead III and V6 and T-wave inversion in aVL. This is similar to previous from 03/30/18. Chest x-ray from today. Radiologist's impression: Stigmata of obstructive lung disease. No acute pulmonary or cardiac process evident. IMPRESSION: Ms. Wright is a 37-year-old female with significant past medical history including end-stage renal disease, on peritoneal dialysis; chronic hypoxic respiratory failure, on 5 L of oxygen via nasal cannula; insulin- dependent diabetes mellitus type 2 with recent hospitalization for viral bronchitis, who presented to the hospital with complaints of low back pain and pain in her arms and legs in addition to nausea, vomiting, and diarrhea. Our plan is to observe the patient in the hospital given her multiple comorbidities. ASSESSMENT/PLAN: 1. Generalized weakness: Ms. Wright has generalized weakness. Her recent viral illness could be contributing to this. I will have Physical Therapy evaluate her. We will see how see progresses. She has no focal neurological deficits noted at this time. In the differential for her upper extremity weakness and pain could be carpal tunnel syndrome, her other nerve impingement problems, additionally her lower extremity discomfort could be secondary to sciatica or diabetic neuropathy. We will provide supportive care. 2. Intractable pain: The patient is reporting intractable pain in her low back , hands and legs. The differential includes diabetic neuropathy, sciatica, carpal tunnel syndrome. She is on methadone at home. Plan will be to continue her home methadone. I will increase her gabapentin to 300 mg t.i.d. from 200 mg t.i.d. We will also check lumbar spine plain film x-ray. 3. End-stage renal disease, on peritoneal dialysis: The patient has already alerted Dialysis that she has been admitted and is arranging for peritoneal dialysis. She has no signs of fluid overload at this time. She is slightly hyponatremic, but otherwise has normal electrolytes. 4. Elevated lactic acid 2.2: Currently, she has no signs of an infection. She is denying any urinary symptoms, has a negative chest x-ray. We will check urinalysis if she is able to urinate. I will recheck the lactic acid, give her some IV fluids. 5. Chronic hypoxic respiratory failure secondary to chronic obstructive pulmonary disease. The patient has no evidence of an exacerbation. She has no wheezing on examination and is not needing additional oxygen at this time. We will monitor her closely. Continue her on her home inhaled medications. 6. Type 2 diabetes mellitus: Plan will be to check fingersticks a.c. and h.s. Place her on a lispro sliding scale and continue her home Lantus. 7. Peripheral arterial disease: I am going to continue her warfarin. I will check an INR in the morning. She was previously subtherapeutic. We will continue aspirin. 8. Gastroesophageal reflux disease: We will continue her home pantoprazole. 9. Depression: Continue home sertraline. 10. Fluids, electrolytes, and nutrition: She will be on a renal consistent carbohydrate diet. 11. Code status: Full code. 12. DVT prophylaxis: She is at moderate risk. She will be continued on her warfarin. 13. Disposition: Observation. TIME SPENT: Time for this admission was approximately 60 minutes, greater than half of that was spent with the patient and her boyfriend discussing medications , past medical history, the events leading up to her arrival today, performing a physical examination. The case has been reviewed with the attending, Dr. Yan, who agrees with the plan of care. ELENA NAVAS, VIOLET [id number]/CPS #: [id number] VIRI
[2018-04-14] MEDS: Gabapentin CAP(*) 300 MG PO SCH (20:26)
[2018-04-14] MEDS: Bethanechol TAB* 25 MG PO SCH (20:33)
[2018-04-14] MEDS: Calcitriol CAP* 0.25 MCG PO SCH (20:33)
[2018-04-14] MEDS ORDERED: Warfarin TAB(*) 7.5 MG PO SCH (21:00)
[2018-04-14] MEDS ORDERED: Insulin GLARGINE(*) 1 UNITS UNIT SUBCUT SCH (21:00)
[2018-04-14] MEDS: Mometasone/Formoter 200/5 MDI INH SCH (21:23)
[2018-04-15] MEDS: Mometasone/Formoter 200/5 MDI INH SCH (07:31)
[2018-04-15 07:43] LABS: ABS Basophils 0 10^3/ul (0-0.2); ABS Eosinophils 0.1 10^3/ul (0-0.6); ABS Lymphocytes 0.5 10^3/ul (1.0-4.8); ABS Monocytes 1.2 10^3/ul (0-0.8); ABS Neutrophils 17.1 10^3/ul (1.5-7.7); ABS Nucleated RBC 0 10^3/ul; Eosinophil % 0.6 %; Hematocrit 27 % (35-47); Hemoglobin 8.6 g/dl (12.0-16.0); Lymphocyte % 2.8 %; Mean Corpuscular HGB Conc 31 g/dl (31-36); Mean Corpuscular Hemoglobin 29 pg (27-31); Mean Corpuscular Volume 93 fL (80-97); Mean Platelet Volume 8.6 fL (7.4-10.4); Nucleated Red Blood Cells % 0.1; Platelet Count 399 10^3/ul (150-450); Red Blood Count 2.93 10^6/ul (4.00-5.40); Red Cell Distribution Width 17 % (10.5-15); White Blood Count 18.9 10^3/ul (3.5-10.8)
[2018-04-15 07:47] LABS: INR 1.98 (0.77-1.02)
[2018-04-15 07:53] LABS: BUN/Creatinine Ratio 5.3 (8-20); Calcium 8.2 mg/dL (8.6-10.3); EGFR Non-African American 5.8 (>60); Potassium 3.9 mmol/L (3.5-5.0)
[2018-04-15] MEDS: Insulin LISPRO* 1 UNITS UNIT SUBCUT SCH ×2 (08:17→13:24)
[2018-04-15] MEDS: Gabapentin CAP(*) 300 MG PO SCH ×2 (08:18→13:25)
[2018-04-15] MEDS: Calcitriol CAP* 0.25 MCG PO SCH ×2 (08:18→13:26)
[2018-04-15] MEDS: Bethanechol TAB* 25 MG PO SCH ×2 (08:18→13:25)
[2018-04-15] MEDS: Losartan TAB* 25 MG PO SCH ×2 (08:19→08:58)
[2018-04-15] MEDS ORDERED: Sertraline* 25 MG TAB PO SCH (09:00)
[2018-04-15] MEDS ORDERED: Mupirocin 2% OINT* TUBE TOPICAL SCH (09:00)
[2018-04-15] MEDS ORDERED: Aspirin EC TAB* 81 MG TAB.EC PO SCH (09:00)
[2018-04-15] MEDS: Ondansetron INJ* 2 MG/ML VIAL IV PRN (09:20)
[2018-04-15 11:44] VITALS: BP 116/37
--- NOTE | 2018-04-15 18:46 | DS ---
CC: Dr. Aishwarya Solis; Dr. Luis Marrufo * DISCHARGE SUMMARY: DATE OF ADMISSION: 04/14/18 DATE OF DISCHARGE: Against medical advice, 04/15/18. PRIMARY CARE PROVIDER: Aishwarya Solis MD CONTROLS DESIGN ENGINEER: Luis Marrufo MD ATTENDING PHYSICIAN: Jeaneth Yan MD * (dictated by Jaylene Calvillo NP) PRIMARY DIAGNOSES: 1. Generalized weakness secondary to pain. 2. Elevated lactic acid. SECONDARY DIAGNOSES: 1. End-stage renal disease, on peritoneal dialysis. 2. Chronic hypoxic respiratory failure. 3. Chronic obstructive pulmonary disease. 4. Diabetes mellitus, type 2. 5. Peripheral arterial disease. 6. Gastroesophageal reflux disease. 7. Depression. STUDIES WHILE IN THE HOSPITAL: 1. Chest x-ray on 04/14/18 reads as stigmata of obstructive lung disease. No acute pulmonary or cardiac process evident. 2. EKG on 04/14/18 shows sinus tachycardia with a rate of 100, QTc 471, ST depression in 2 and V6, inverted T waves in aVL. This is consistent with prior EKG. 3. Lumbar spine on 04/14/18 reads as mild degenerative spondylosis. Negative for fracture or spondylolisthesis. HISTORY OF PRESENT ILLNESS AND HOSPITAL COURSE: Ms. Wright is a 37-year-old female well known to our service with a past medical history of end-stage renal disease, on peritoneal dialysis, chronic hypoxic respiratory failure secondary to COPD, on 5 L nasal cannula at baseline, diabetes mellitus type 2, peripheral arterial disease, anxiety and depression who presented to the emergency room on 04/14/18 with complaints of lower back pain and bilateral hand pain. Please see the history and physical by Inés Man NP for complete summary, the events leading up to this hospitalization. In short, the patient was recently admitted to this facility on 04/09/18 for a suspected viral bronchitis. She subsequently left against medical advice on the day of admission. Yesterday, she presented with bilateral hand pain and lower back pain. She additionally reported some nausea, vomiting, and diarrhea. She was noted to be quite weak and unable to ambulate at her baseline and she was admitted by the hospitalist service. The patient was requesting hydromorphone on admission, which she was not given initially, but was given overnight. This morning, she was noted to have some soft blood pressures, which does seem to be consistent with her baseline and the hydromorphone was discontinued. Physical Therapy consult was ordered, though they ultimately did not see the patient before she left against medical advice. I spoke with the patient this afternoon and she reported that her pain in her back was a burning pain. She did not report any hand pain or any pain radiating to either leg. She does have chronic pain and takes methadone regularly, though she reports that this pain is increased from her baseline. I spoke with the patient at length about options for pain management and my recommendation for her to possibly see the Pain Clinic in the future if this pain continues. Her gabapentin was increased on admission due to the concern that this was neuropathic pain, though the patient is adamant that this pain is not neuropathic pain. The patient was still quite weak when I saw her this afternoon; however, she was able to stand at the side of the bed and take a few steps with a walker. She noted that she was feeling shaky and she typically feels that way when she does not take her methadone, which was held this morning due to her blood pressure. Ultimately, the patient became frustrated as she did not feel that her pain was being managed and she requested to leave against medical advice. I did discuss at length with the patient the risks of leaving against medical advice especially before a proper evaluation with physical therapy. Risks include increased incidents of falls, subsequent injury , and possible . The patient's significant other was at the bedside during this conversation. Ms. Wright is leaving against medical advice today. Vital signs are as follows , temp 99.7, heart rate 113, respiratory rate 16, oxygen saturation 91% on 3 L nasal cannula, blood pressure 116/37. DISCHARGE MEDICATIONS: Continued medications: 1. Albuterol 2.5 mg 1 neb q.4 hours p.r.n. shortness of breath, wheezing. 2. Albuterol MDI 2 puffs q.6 hours p.r.n. 3. Aspirin 81 mg p.o. daily. 4. Bethanechol 25 mg p.o. 4 times a day. 5. Symbicort 160/4.5 two puffs b.i.d. 6. Calcitriol 0.25 mcg p.o. t.i.d. 7. Gabapentin 200 mg p.o. t.i.d. 8. NovoLog sliding scale (the patient may continue her usual sliding scale). 9. Glargine 80 units subcu bedtime. 10. Losartan 100 mg p.o. daily. 11. Methadone 5 mg q.8 hours p.r.n. pain. 12. Omeprazole 40 mg p.o. daily. 13. Promethazine 25 mg p.o. q.8 hours p.r.n. nausea. 14. Sertraline 25 mg p.o. daily. 15. Warfarin 7.5 mg p.o. at bedtime. DISCHARGE PLAN: Ms. Wright is leaving against medical advice today. Diet should be renal and consistent carb. Activity should be as tolerated. Medications are noted above. I am not making any medication changes at this point. I will note that the patient's INR this morning was slightly subtherapeutic at 1.98, though she can continue her usual warfarin dosing and follow up with her PCP for any further dose adjustments. She will need to follow up with her primary care provider in 4 to 7 days and I have advised that she may also speak with her primary at that time about potentially following up with the pain clinic if this pain persists. The patient has been advised to return to the emergency room or nearest hospital for any worsening of symptoms, shortness of breath, lightheadedness, dizziness, chest discomfort, high fevers, chills, night sweats, loss of consciousness, or any other worrisome signs or symptoms. This is summarized report of a complex medical history and hospital stay. For further details, please see the entire medical record. TIME SPENT: Approximately 45 minutes were spent on this stage. JAYLENE CALVILLO NP [id number]/[facility] #: [id number] VIRI
== END 2018-04-15 14:10 | disposition left against medical advice (07) ==
LOC: ED 11:49 → MED 18:03
PROVIDERS: ADMIT Internal Medicine; ATTEND Internal Medicine
DX: R53.1 Weakness (principal); R74.0 Nonspecific elevation of levels of transaminase and lactic acid dehydrogenase [LDH]; N18.6 End stage renal disease; Z99.2 Dependence on renal dialysis; J96.11 Chronic respiratory failure with hypoxia; J44.9 Chronic obstructive pulmonary disease, unspecified; E11.9 Type 2 diabetes mellitus without complications; I73.9 Peripheral vascular disease, unspecified; K21.9 Gastro-esophageal reflux disease without esophagitis; F32.9 Major depressive disorder, single episode, unspecified; Z79.82 Long term (current) use of aspirin; Z79.01 Long term (current) use of anticoagulants; M54.9 Dorsalgia, unspecified
CPT/HCPCS: 36415; 71046; 72100; 80048; 80053; 83605; 85025; 85610; 86140; 93005; 94640; 96372; 96374; 96375; 96376; 99284; A9270-GY; G0378; J1170; J2270; J2405; J2765

== ENCOUNTER 2018-04-16 14:50 | Inpatient (IN) | payer OTHER ==
[2018-04-16] MEDS ORDERED: methylPREDNISolone 125 MG* 2 ML VIAL IV ONE (15:15)
--- NOTE | 2018-04-16 15:16 | ED ---
HPI Chest Pain - HPI Summary HPI Summary: Pt is a 37 y/o female brought in by EMS who presents to the ED c/o CP. She was admitted to [facility] two days ago for N/V/D, fever, and low BP. Pt kept requesting pain medications then left AMA. Today she was found minimally responsive with a low BP and was taken to [facility]. There she had a full work-up that was unremarkable except for a WBC of 20, hemoglobin of 8.1, and INR of 2.6. A chest and abdomen XR were both negative. It was noted that pt appeared sedated and over-mediated. Pt was then transferred to [facility] for peritoneal dialysis, which she has scheduled today at 18:00. She currently c/o burning CP, CRAFT, back pain, and low BP, but denies any diarrhea. The pain is rated a 10/10 in severity. Pt denies taking excess Methadone for pain. She does not want to be admitted today. PMHx HTN, HLD, DM, COPD, ESRD on dialysis. Pt is a smoker. - History of Current Complaint Chief Complaint: EDGeneral Time Seen by Provider: 04/16/18 14:56 Hx Obtained From: Patient Hx Last Menstrual Period: just finished Onset/Duration: Started Hours Ago - Today, Still Present Timing: Constant Current Severity: Severe Pain Intensity: 10 Pain Scale Used: 0-10 Numeric Chest Pain Location: Left Lateral Chest Pain Radiates: No Character: Burning Aggravating Factor(s): Nothing Alleviating Factor(s): Nothing Associated Signs and Symptoms: Positive: Chest Pain, Headaches, Back Pain Related History: Similar Episode/Dx as: - frequently visits ED - Additional Pertinent History Primary Care Physician: FELIX - Allergy/Home Medications Allergies/Adverse Reactions: Allergies Allergy/AdvReac Type Severity Reaction Status Date / Time Adhesive Tape [Plastic Tape] Allergy Mild Blisters Verified 04/14/18 12:05 doxycycline Allergy Unknown Verified 04/14/18 12:05 Reaction Details erythromycin base Allergy See Comment Verified 04/14/18 12:05 heparin Allergy See Comment Verified 04/14/18 12:05 metoclopramide [From Reglan] Allergy Hives Verified 04/14/18 12:05 metronidazole [From Flagyl] Allergy Nausea And Verified 04/14/18 12:05 Vomiting niacin Allergy Rash Verified 04/14/18 12:05 ropinirole [From Requip] Allergy Hives Verified 04/14/18 12:05 Sulfa (Sulfonamide Allergy Vomiting Verified 04/14/18 12:05 Antibiotics) Home Medications: Home Medications Acetaminophen TAB* [Tylenol TAB*] 650 mg PO Q6H PRN 04/16/18 [History Confirmed 04/16/18] PMH/Surg Hx/FS Hx/Imm Hx Endocrine/Hematology History: Reports: Hx Anticoagulant Therapy - Aspirin., Hx Blood Transfusions, Hx Diabetes, Hx Thyroid Disease - nodule, Hx Anemia - hx of - reports had tranfusion in 2013 after mi Cardiovascular History: Reports: Hx Angina, Hx Cardiac Arrest, Hx Cardiomegaly, Hx Coronary Artery Disease, Hx Deep Vein Thrombosis, Hx Hypercholesterolemia, Hx Hypertension, Hx Myocardial Infarction, Hx Peripheral Vascular Disease, Other Cardiovascular Problems/Disorders Denies: Hx Congestive Heart Failure, Hx Pacemaker/ICD, Hx Valvular Heart Disease Respiratory History: Reports: Hx Asthma, Hx Chronic Obstructive Pulmonary Disease (COPD) - smoker, Hx Pneumonia, Hx Sleep Apnea, Other Respiratory Problems/Disorders - acute respipatory failure with hypoxia - jan 2016 Denies: Hx Lung Cancer, Hx Pulmonary Embolism - pt says no, although documented in char GI History: Reports: Hx Gall Bladder Disease, Hx Gastroesophageal Reflux Disease , Other GI Disorders - GASTROPARESIS - TAKING OMEPRAZOLE, reglan and zofran Denies: Hx Gastrointestinal Bleed, Hx Ulcer, Hx Urosepsis History: Reports: Hx Acute Renal Failure, Hx Chronic Renal Failure - ESRD on PD, Hx Dialysis - PERITONEAL, Hx Kidney Stones, Hx Renal Disease - ESRD on home peritoneal dialysis , Other Problems/Disorders Musculoskeletal History: Reports: Hx Arthritis - back, hips, Hx Back Problems - Sciatica and Herniated L3 disk, Other Musculoskeletal History - partial amputation of toes/foot Sensory History: Reports: Hx Contacts or Glasses, Hx Eye Prosthesis - L eye, 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, very limited, Hx Vision Problem Neurological History: Reports: Other Neuro Impairments/Disorders - neuropathy Denies: Hx Transient Ischemic Attacks (TIA) Psychiatric History: Reports: Hx Anxiety, Hx Depression, Hx Bipolar Disorder Denies: Hx Eating Disorder, Hx Panic Disorder, Hx Schizophrenia, Hx of Violent Episodes Against Others - Cancer History Cancer Type, 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 MELANOMA REMOVED FROM [facility] 2012 (PROCEDURE DONE 4X);. CARDIAC CATH 2013 - NO STENTS;. LEFT WRIST FISTULA PLACEMENT ([facility]) 2013;. HEMODIALYSIS CATH RIGHT CHEST WALL 2013;. PERITONEAL DIALYSIS CATH 03/2014;. CHEST WALL CATH REMOVAL 08/2015 [facility];. RIGHT GREAT TOE AMPUTATION, [facility] 05/2015;. PLACEMENT RIGHT JUGULAR TESIO HEMODIALYSIS CATHETER [facility] 10/22/2015;. REMOVAL OF JUGULAR CATH - OCT 2015. CARDIAC CATH - stentsx2 right leg. PARTIAL AMPUTATION RIGHT TOES 06/2016. RIGHT TOES ALL REMOVED Hx Anesthesia Reactions: No - Immunization History Date of Tetanus Vaccine: utd Date of Influenza Vaccine: 11/2016 Infectious Disease History: No Infectious Disease History: Reports: Hx of Known/Suspected MRSA - MRSA R 1st toe , History Other Infectious Disease - GANGRENE Denies: Hx Clostridium Difficile, Hx Hepatitis, Hx Human Immunodeficiency Virus (HIV), Hx Shingles, Hx Tuberculosis, Traveled Outside the [place] in Last 30 Days - Family History Known Family History: Positive: Cardiac Disease - father [place] at 42 y/o, Hypertension, Other - Positive for bipolar and depression. Completed suicide to sister. - Social History Alcohol Use: None Hx Substance Use: No Substance Use Type: Reports: None Substance Use Comment - Amount & Last Used: methadone Hx Tobacco Use: Yes Smoking Status (MU): Heavy Every Day Tobacco Smoker Type: Cigarettes Amount Used/How Often: 1 PPD Length of Time of Smoking/Using Tobacco: 20 YEARS Have You Smoked in the Last Year: Yes Review of Systems Positive: Chest Pain - burning, Other - hypotension Negative: Diarrhea Positive: Myalgia - back Positive: Headache All Other Systems Reviewed And Are Negative: Yes Physical Exam - Summary Physical Exam Summary: Appearance: chronically-ill appearing, no pain distress, drowsy Skin: warm, dry, poor color Head/face: normal Eyes: EOMI, HILLARY ENT: mucous membranes moist Neck: supple, non-tender Respiratory: expiratory wheezes, breath sounds present Cardiovascular: tachycardic but regular rhythm, pulses symmetrical Abdomen: non-tender, soft Bowel Sounds: present Musculoskeletal: normal, strength/ROM intact Neuro: normal, sensory motor intact, A&Ox3 Triage Information Reviewed: Yes Vital Signs On Initial Exam: Initial Vitals Temp Pulse Resp BP Pulse Ox 97.4 F 99 18 109/76 100 04/16/18 14:52 04/16/18 14:52 04/16/18 14:52 04/16/18 14:52 04/16/18 14:52 Vital Signs Reviewed: Yes Diagnostics - Vital Signs Vital Signs Temp Pulse Resp BP Pulse Ox 04/16/18 14:52 97.4 F 99 18 109/76 100 - Laboratory Result Diagrams: 04/16/18 17:27 04/16/18 17:27 Lab Statement: Any lab studies that have been ordered have been reviewed, and results considered in the medical decision making process. Chest Pain Course/Dx - Course Course Of Treatment: Nurse's notes reviewed. Outside records reviewed including full laboratories, x-ray of the chest and pelvis. She has a white blood cell count of 20,000 and a hemoglobin of 8.1. Her potassium is nonelevated. Patient is still drowsy and has soft blood pressures. She self medicates with opiates including methadone. This is likely causative. They did obtain peritoneal fluid for testing and culture at [facility]. She' ll be admitted through the hospitalist service. Patient is well known to both the ER and hospitalist service and just left AGAINST MEDICAL ADVICE yesterday. - Chest Pain Differential Diagnosis/HQI/PQRI: GI Disease, Lower Respiratory Infection, Other : - Medication induced hypotension, sepsis - Diagnoses Provider Diagnoses: COPD exacerbation, Opiate overdose, Leukocytosis, ESRD on peritoneal dialysis - Provider Notifications Discussed Care Of Patient With: Sebastien Garza Time Discussed With Above Provider: 15:50 Instructed by Provider To: Admit As Inpatient Discharge - Sign-Out/Discharge Documenting (check all that apply): Patient Departure - Admit Patient Received Moderate/Deep Sedation with Procedure: No - Discharge Plan Condition: Fair Disposition: ADMITTED TO [facility] - Billing Disposition and Condition Condition: FAIR Disposition: Admitted to [facility] - Attestation Statements Document Initiated by Scribe: Yes Documenting Scribe: Rupal Serna Provider For Whom Scribe is Documenting (Include Credential): Yamil Garcia MD Scribe Attestation: I, Rupal Serna, scribed for Yamil Garcia MD on 04/16/18 at 1822. Scribe Documentation Reviewed: Yes Provider Attestation: The documentation as recorded by the nitaibRupal campbell accurately reflects the service I personally performed and the decisions made by me, Yamil Garcia MD Status of Scribe Document: Viewed
[2018-04-16] MEDS ORDERED: Ondansetron INJ* 2 MG/ML VIAL IV PRN (16:31)
[2018-04-16] MEDS ORDERED: Promethazine TAB* 25 MG PO PRN (16:37)
[2018-04-16] MEDS ORDERED: Dextrose 50% Syringe 50 ML* 25 GM/50 ML SYRINGE IV PUSH PRN (16:40)
[2018-04-16] MEDS ORDERED: Morphine INJ* 2 MG/ML 1 ML SYRINGE (TWO MG - NEW SYRINGE VERSION) IV PRN (16:41)
[2018-04-16] MEDS ORDERED: NS 0.9% 1000 ML** 1,000 ML IV ONE (16:56)
[2018-04-16] MEDS ORDERED: Zosyn per Pharmacy* NOTE FOLLOW UP SCH (17:00)
[2018-04-16 17:40] LABS: ABS Basophils 0 10^3/ul (0-0.2); ABS Eosinophils 0.1 10^3/ul (0-0.6); ABS Lymphocytes 0.7 10^3/ul (1.0-4.8); ABS Monocytes 0.7 10^3/ul (0-0.8); ABS Neutrophils 14.2 10^3/ul (1.5-7.7); ABS Nucleated RBC 0 10^3/ul; Eosinophil % 0.8 %; Hematocrit 25 % (35-47); Hemoglobin 7.9 g/dl (12.0-16.0); Lymphocyte % 4.4 %; Mean Corpuscular HGB Conc 32 g/dl (31-36); Mean Corpuscular Hemoglobin 30 pg (27-31); Mean Corpuscular Volume 93 fL (80-97); Mean Platelet Volume 8.3 fL (7.4-10.4); Nucleated Red Blood Cells % 0.2; Platelet Count 417 10^3/ul (150-450); Red Blood Count 2.67 10^6/ul (4.00-5.40); Red Cell Distribution Width 17 % (10.5-15); White Blood Count 15.7 10^3/ul (3.5-10.8)
[2018-04-16 17:56] LABS: Albumin 2.7 g/dL (3.2-5.2); Albumin/Globulin Ratio 0.9 (1-3); EGFR African American 6.5 (>60); EGFR Non-African American 5.4 (>60); Globulin 3.1 g/dL (2-4); Potassium 3.8 mmol/L (3.5-5.0); Total Bilirubin 0.2 mg/dL (0.2-1.0); Total Protein 5.8 g/dL (6.4-8.9)
[2018-04-16] MEDS ORDERED: ZOSYN 3.375 GM x ONE DOSE over 30 miuntes IVPB ×2 (18:00)
[2018-04-16] MEDS: Pantoprazole TAB * 40 MG TAB PO SCH (19:11)
[2018-04-16] MEDS: NS 0.9% 1000 ML** 1,000 ML IV SCH (19:17)
--- NOTE | 2018-04-16 19:20 | HP ---
CC: Dr. Aishwarya Solis * ADMISSION HISTORY AND PHYSICAL: DATE OF ADMISSION: 04/16/18 PRIMARY CARE PROVIDER: Dr. Aishwarya Solis. MY ATTENDING WHILE IN THE HOSPITAL: Dr. Sebastien Garza.* (DICTATED BY GIOVANNI SHEPPARD) CHIEF COMPLAINT: Hypotension, low back pain. HISTORY OF PRESENT ILLNESS: Ms. Wright is a 37-year-old female with numerous admissions to this hospital with a past medical history significant for end- stage renal disease, on peritoneal dialysis; COPD, on 5 L chronic oxygen; diabetes mellitus; coronary artery disease; and chronic pain who has been admitted to this hospital 7 times since January of last year. The patient was most recently admitted on 04/14/18 with pain in her back radiating into her feet as well as generalized weakness. The patient at that time improved moderately with physical therapy, pain medication, left against medical advice on 04/15/18 due to concern for not having her pain addressed which is a frequent occurrence for her. The patient was recently diagnosed on 03/30/18 with viral bronchitis. The patient states that since she was discharged, she has been feeling very poorly. The patient states that she did not take anymore of her pain medication as prescribed. She states on the morning of 04/16/18, she was feeling poorly, sat up on edge of the bed and felt as if she is going to pass out but did not. The patient had been having subjective fevers and chills. The patient has been having cough. The patient has been having persistent burning pain in her lower back, worse with movement or with touching her lower back, which radiates down both her legs and into the soles of her feet. The patient denies bowel or bladder dysfunction or focal weakness. The patient has not had any worsened cough. The patient activated EMS and was taken to the [facility], where she was found to have an elevated white blood cell count and tachycardia and hypotension. The patient was given several liters of fluid which eventually helped her blood pressure become normotensive. The patient had labs which were consistent with her baseline. The patient had culture of her peritoneal fluid drawn. The patient had blood cultures as well as a urine culture and a chest x-ray which showed no consolidation. All of the others were pending. The patient was transferred to [facility] as [facility] wanted to keep her for observation for possible infection with meeting SIRS criteria inpatient, but were unable to accommodate her peritoneal dialysis. The patient at [facility] was found to be persistently hypotensive. At the time of evaluation, her blood pressure was 94/72. The patient was also found to have significant wheezes on exam and we were asked to evaluate the patient for admission. The patient also complains this morning of having at one point lost her hearing and had it slowly come back over the course of several hours. The patient also complains of hearing noises of water flowing and wind blowing in her ears. PAST MEDICAL HISTORY: 1. End-stage renal disease, on peritoneal dialysis. 2. COPD with chronic hypoxic respiratory failure, on 5 L of oxygen. 3. Insulin-dependent diabetes mellitus type 2. 4. Peripheral arterial disease. 5. GERD. 6. Coronary artery disease. 7. Melanoma of the vulva. 8. Gastroparesis. 9. Anxiety. 10. Depression. 11. Hypertension. 12. Hyperlipidemia. 13. History of tobacco abuse. 14. Arthritis. 15. Degenerative disk disease. PAST SURGICAL HISTORY: Status post right metatarsal amputation. MEDICATIONS: At home, which the patient states she has been taking all of: 1. Tylenol 650 mg p.o. q.4 hours as needed. 2. Albuterol nebulizer 2.5 mg inhalation every 4 hours as needed for shortness of breath. 3. Albuterol inhaler 2 puffs inhalation q.4 hours as needed for shortness of breath. 4. Aspirin 81 mg p.o. daily. 5. Symbicort 160/4.5 two puffs inhalation twice daily. 6. Bethanechol 25 mg oral 4 times daily. 7. Losartan 100 mg p.o. daily. 8. Lantus 8 units subcutaneous at bedtime. 9. NovoLog insulin 0 to 10 units as directed. 10. Gabapentin 200 mg orally 3 times daily. 11. Calcitriol 0.25 mcg orally 3 times daily. 12. Sertraline 25 mg p.o. daily. 13. Promethazine 25 mg orally every 8 hours as needed for nausea. 14. Omeprazole 40 mg p.o. nightly. 15. Methadone 5 mg orally q.8 hours as needed for pain. 16. Warfarin 7.5 mg p.o. daily. ALLERGIES: ADHESIVE TAPE, DOXYCYCLINE, ERYTHROMYCIN, HEPARIN, REGLAN, FLAGYL, NIACIN, REQUIP, SULFA. FAMILY HISTORY: The patient's father had an AR at age 49. The patient's mother had diabetes. The patient's father also had diabetes. The patient has several several siblings who have diabetes. The patient had a grandfather with lung cancer and grandmother with ovarian cancer. SOCIAL HISTORY: The patient smokes half pack a day. The patient denies alcohol or recreational drug use. The patient is disabled, lives with her boyfriend. The patient's boyfriend, Moreno Alexis, will be her surrogate decision maker. REVIEW OF SYSTEMS: A 14-point review of systems was reviewed and is negative except as above in the HPI. PHYSICAL EXAMINATION GENERAL: The patient is a 37-year-old female who appears older than stated age , sitting comfortably in bed, in no acute distress. VITAL SIGNS: At the time of evaluation, temperature 99.7, pulse rate 113, respiratory rate 16, oxygen saturation 91% on 3 L, blood pressure 116/37. HEENT: Head: Normocephalic, atraumatic. Sclerae anicteric. No conjunctival injection. Nasal mucosa moist. Oral mucosa moist. No pharyngeal erythema, discharge, or exudate. Mild erythema of the bilateral tympanic membrane, no bulging or exudate. NECK: Supple, nontender. No lymphadenopathy. No carotid bruits auscultated. No JVD. RESPIRATORY: Expiratory wheezes throughout, diminished breath sounds throughout , rhonchi throughout. CARDIAC: Tachycardic. No clicks, murmurs, gallops, or rubs. Pulses are 2+ in the bilateral dorsalis pedis, posterior tibialis, and radial areas. ABDOMEN: Soft, nontender, nondistended. Bowel sounds present and normoactive in all 4 quadrants. No hepatosplenomegaly. No abdominal bruits auscultated. No hepatojugular reflux. GENITOURINARY: No suprapubic or CVA tenderness. NEURO: Straight leg raise positive bilaterally with minor movement in the lower extremities. Severe tenderness to palpation over the bilateral lower back. Reflexes normal. No other focal neurologic deficits. Cranial nerves II through XII intact. Diffuse weakness. PSYCHIATRIC: Irritable but cooperative. SKIN: Clean, dry, and intact. No rash. DIAGNOSTIC STUDIES/LABORATORY DATA: Studies performed at [facility] include a x-ray of the abdomen and pelvis which shows no acute fracture, and PA and lateral chest x-ray showing no acute abnormality. Laboratory data from [facility], white blood cell count 20.3; hemoglobin 8.1; platelet count 408; neutrophils high, neutrophil percent 94.3. PT 27.1, INR 2.6. Glucose 281, BUN 41, creatinine 8.7, sodium 131, potassium 3.9, chloride 93, carbon dioxide 26, anion gap 12, calcium 8.0, magnesium 2.3, protein 6.4, albumin 1.7, globulin 4.7, AST 8, ALT 10, alkaline phosphatase 93, lipase 93. Troponin I 0.165. Urinalysis pending. Peritoneal dialysis fluid pending. Blood cultures pending. ASSESSMENT AND PLAN: Impression: Ms. Wright is a 37-year-old female with complex medical history significant for end-stage renal disease, on peritoneal dialysis; chronic obstructive pulmonary disease with chronically needing 5 L of oxygen; diabetes mellitus type 2; coronary artery disease who presents to the emergency department with hypotension, elevated white blood cell count, tachycardia as well as severe low back pain unresponsive to medication. The patient will be admitted to the hospital for observation while her cultures drawn at [facility] are pending as well as further investigation into her hypotension and low back pain. 1. Hypotension. The patient's hypotension is of unclear cause. The patient has been taking her losartan and took it this morning. The patient appears euvolemic on exam. The patient denies taking any excessive opiates and was not given any at [facility]. The patient will be given fluids. The patient is currently asymptomatic at rest. The patient will be treated with steroids. The patient will be continued on fluids. The patient will be continues on inpatient dialysis. We will repeat the patient's labs here and the patient's antihypertensives will be held. The patient will be monitored closely. The patient will be dialyzed as needed for electrolyte abnormalities or hypertension. 2. Sepsis. The patient meets sepsis criteria, however, the patient has already received broad-spectrum antibiotics and a fluid bolus at [facility]. We will bolus again 1 L and then continue on fluids at a low rate for hypotension. The patient will be monitored closely and her Zosyn will be continued. 3. Low back pain. The patient has radicular low back pain with some atypical features. The patient had a previous lumbar spine MRI in 2013 which showed degenerative disk disease. We will repeat this at this time and pending result of that neurosurgical consultation may be indicated. The patient will have her home methadone for pain control. 4. Chronic obstructive pulmonary disease. The patient appears to be in mild chronic obstructive pulmonary disease exacerbation possibly from a viral infection. The patient will have albuterol inhalers as needed, steroids orally at 60 mg daily and antitussives. The patient is currently on her home dose of oxygen. The patient has chronic respiratory failure associated with this. 5. Coronary artery disease. The patient not currently having chest pain. Continue the patient's aspirin. 6. FEN: The patient will have renal diet. The patient will have fluids as above. 7. DVT prophylaxis: The patient is on warfarin. The patient will have INRs monitored daily. The patient was therapeutic earlier today at [facility]. 8. Disposition: The patient is admitted under observation. TIME SPENT: Approximately 60 minutes was spent on the admission of this patient , 30 of which was spent [id number] with the patient obtaining history and physical and discussing treatment plan. Plan was discussed with my attending, Dr. Sebastien Garza, and he is in agreement. GIOVANNI SHEPPARD [id number]/BRYAN #: [id number] VIRI
[2018-04-16] MEDS: Bethanechol TAB* 25 MG PO SCH ×2 (19:57→21:37)
[2018-04-16] MEDS: Mometasone/Formoter 200/5 MDI INH SCH (20:34)
[2018-04-16] MEDS: Albuterol/Ipratropium NEB.SOL* Albuterol 2.5 MG/Ipratropium 0.5 MG 3 ML INH SCH (20:35)
[2018-04-16] MEDS: Warfarin TAB(*) 7.5 MG PO SCH (21:27)
[2018-04-16] MEDS: Gabapentin CAP(*) 100 MG PO SCH (21:28)
[2018-04-16] MEDS: Calcitriol CAP* 0.25 MCG PO SCH (21:29)
[2018-04-16] MEDS: guaiFENesin ER TAB 600 MG PO SCH (21:29)
[2018-04-16] MEDS: Insulin GLARGINE(*) 1 UNITS UNIT SUBCUT SCH (21:31)
[2018-04-16] MEDS: Insulin LISPRO* 1 UNITS UNIT SUBCUT SCH (21:36)
[2018-04-17] MEDS: Albuterol/Ipratropium NEB.SOL* Albuterol 2.5 MG/Ipratropium 0.5 MG 3 ML INH SCH ×5 (00:31→19:16)
[2018-04-17] MEDS: ZOSYN 3.375 GM Q12H per EXTENDED INFUSION IVPB SCH ×6 (05:46→23:35)
[2018-04-17] MEDS: Mometasone/Formoter 200/5 MDI INH SCH ×2 (07:05→19:17)
[2018-04-17] MEDS ORDERED: Furosemide IV* 10 MG/ML 10 ML VIAL (100 MG) IV ONE (07:51)
--- NOTE | 2018-04-17 08:07 | PN ---
Progress Note - Progress Note Date of Service: 04/17/18 Note: Cross coverage: Called to see pt with new onset hypoxia. 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
[2018-04-17] MEDS: Insulin LISPRO* 1 UNITS UNIT SUBCUT SCH ×4 (08:26→21:27)
[2018-04-17] MEDS: NS 0.9% 1000 ML** 1,000 ML IV SCH (08:42)
[2018-04-17] MEDS ORDERED: Losartan TAB* 25 MG PO SCH (09:00)
[2018-04-17] MEDS: Sertraline* 25 MG TAB PO SCH (10:30)
[2018-04-17] MEDS: predniSONE TAB* 20 MG PO SCH (10:30)
[2018-04-17] MEDS: Aspirin EC TAB* 81 MG TAB.EC PO SCH (10:30)
[2018-04-17] MEDS: guaiFENesin ER TAB 600 MG PO SCH ×2 (10:30→20:57)
[2018-04-17] MEDS: Gabapentin CAP(*) 100 MG PO SCH ×3 (10:30→20:57)
[2018-04-17] MEDS: Bethanechol TAB* 25 MG PO SCH ×4 (10:31→20:57)
[2018-04-17] MEDS: Calcitriol CAP* 0.25 MCG PO SCH ×3 (10:31→20:57)
[2018-04-17 12:44] LABS: ABS Basophils 0.1 10^3/ul (0-0.2); ABS Eosinophils 0 10^3/ul (0-0.6); ABS Lymphocytes 0.3 10^3/ul (1.0-4.8); ABS Monocytes 0.5 10^3/ul (0-0.8); ABS Neutrophils 19.6 10^3/ul (1.5-7.7); ABS Nucleated RBC 0 10^3/ul; Eosinophil % 0 %; Hematocrit 26 % (35-47); Hemoglobin 7.9 g/dl (12.0-16.0); Lymphocyte % 1.6 %; Mean Corpuscular HGB Conc 31 g/dl (31-36); Mean Corpuscular Hemoglobin 28 pg (27-31); Mean Corpuscular Volume 92 fL (80-97); Mean Platelet Volume 8.8 fL (7.4-10.4); Nucleated Red Blood Cells % 0.1; Platelet Count 448 10^3/ul (150-450); Red Cell Distribution Width 17 % (10.5-15); White Blood Count 20.6 10^3/ul (3.5-10.8)
[2018-04-17 12:49] LABS: INR 3.77 (0.77-1.02)
[2018-04-17 13:06] LABS: BUN/Creatinine Ratio 5.3 (8-20); Calcium 8.4 mg/dL (8.6-10.3); Magnesium 2.1 mg/dL (1.9-2.7); Potassium 3.7 mmol/L (3.5-5.0)
[2018-04-17] MEDS: Albuterol 2.5 MG/3 ML NEB.SOL* (0.083%) INH PRN (14:27)
--- NOTE | 2018-04-17 16:59 | PN ---
Date of Service: 04/15/18 Critical Care Services: 37 y/o female with multiple medical and behavioral problems and multiple admissions here - med problems include renal failure (Rx peritoneal dialysis), COPD, diabetes, CAD, chronic pain - this admission for low back pain, but this AM was found confused and hypoxic and brought to ICU - on arrival to ICU patient was alert, oriented, and oxygenating adequately on high-flow nasal O2. She is not aware of what hapened this AM Vital Signs: Temp Pulse Resp BP SpO2 FiO2 99.7 F 108 13 113/35 100 100 Physical Exam: Gen:Awake, oriented, breathing comfortably Lungs: BS distant. No adventitious sounds Abdomen: Distended. Peritoneal dialysis catheter in place. Extremities: No cyanosis or edema Fluid Balance (Past 24 Hours): 04/17/18 04/18/18 06:59 06:59 Intake Total 187 520 Balance 187 520 Weight 203 lb Intake: IV Fluids 82 IV fluids & IVPB 82 IVPB 105 IV fluids & IVPB 105 Oral 0 520 Other: Estimated Void Medium Date of Last Bowel 04/17/18 Movement # Bowel Movements 1 2 Estimated Stool Amount Small Medium # Voids 1 Labs: Laboratory Results - last 24 hr 04/17/18 04/17/18 04/17/18 07:18 08:30 12:25 WBC 20.6 RBC 2.80 L Hgb 7.9 L Hct 26 L MCV 92 MCH 28 MCHC 31 RDW 17 H Plt Count 448 MPV 8.8 Neut % (Auto) 95.2 Lymph % (Auto) 1.6 Todd % (Auto) 2.6 Eos % (Auto) 0 Baso % (Auto) 0.6 Absolute Neuts (auto) 19.6 H Absolute Lymphs (auto) 0.3 L Absolute Monos (auto) 0.5 Absolute Eos (auto) 0 Absolute Basos (auto) 0.1 Absolute Nucleated RBC 0 Nucleated RBC % 0.1 INR (Anticoag Therapy) ABG pH 7.28 L ABG pCO2 44 ABG pO2 120 H ABG HCO3 20.2 ABG O2 Saturation 99.0 H ABG Base Excess -6.0 L FiO2 100 Sodium Potassium Chloride Carbon Dioxide Anion Gap BUN Creatinine Est GFR ( Amer) Est GFR (Non-Af Amer) BUN/Creatinine Ratio Glucose POC Glucose (mg/dL) 303 H Calcium Magnesium Total Bilirubin AST ALT Alkaline Phosphatase Total Protein Albumin Globulin Albumin/Globulin Ratio 02/21/19 02/21/19 02/21/19 12:25 12:25 16:25 WBC RBC Hgb Hct MCV MCH MCHC RDW Plt Count MPV Neut % (Auto) Lymph % (Auto) Todd % (Auto) Eos % (Auto) Baso % (Auto) Absolute Neuts (auto) Absolute Lymphs (auto) Absolute Monos (auto) Absolute Eos (auto) Absolute Basos (auto) Absolute Nucleated RBC Nucleated RBC % INR (Anticoag Therapy) 3.77 H Patient Temperature ABG pH ABG pH (Temp Correct) ABG pCO2 ABG pCO2 (Temp Corrct ABG pO2 ABG pO2 (Temp Correct ABG HCO3 ABG O2 Saturation ABG Base Excess Respiration Rate Ventilator Type Vent Mode FiO2 Inspiratory Time PEEP Pressure Support Pressure Control EPAP IPAP BiPAP Sodium 136 Potassium 3.7 Chloride 97 L Carbon Dioxide 24 Anion Gap 15 H BUN 47 H Creatinine 8.90 H Est GFR ( Amer) 6.0 Est GFR (Non-Af Amer) 5.0 BUN/Creatinine Ratio 5.3 L Glucose 266 H POC Glucose (mg/dL) 246 H Calcium 8.4 L Magnesium 2.1 Total Bilirubin AST ALT Alkaline Phosphatase Total Protein Albumin Globulin Albumin/Globulin Ratio Studies: CXR: ? infiltrate left base Nutrition: Renal diet Impression: ? pneumonia left lung as source of hypoxemia. Plan: 1. Continue high-flow nasal O2 as needed 2. Continue IV PIP/TAZO pending culture results. 3. Repeat Chest x-ray tomorrow. Critical Care Time: 30 minutes
[2018-04-17] MEDS: Pantoprazole TAB * 40 MG TAB PO SCH (18:18)
[2018-04-17] MEDS: Warfarin TAB(*) 7.5 MG PO SCH (20:57)
[2018-04-17] MEDS: Lidocaine 4% GEL* 10 GM TUBE TOPICAL SCH (20:57)
[2018-04-17] MEDS: Insulin GLARGINE(*) 1 UNITS UNIT SUBCUT SCH (21:27)
[2018-04-18] MEDS ORDERED: Morphine VIAL* 4 MG/ML VIAL (1 ml vial) IV ONE ×2 (00:24→06:00)
[2018-04-18] MEDS ORDERED: Morphine VIAL* 4 MG/ML VIAL (1 ml vial) ONE ×2 (00:27→06:22)
[2018-04-18] MEDS: Albuterol/Ipratropium NEB.SOL* Albuterol 2.5 MG/Ipratropium 0.5 MG 3 ML INH SCH ×4 (00:28→21:07)
[2018-04-18 05:26] LABS: Hematocrit 22 % (35-47); Hemoglobin 6.8 g/dl (12.0-16.0); Mean Corpuscular HGB Conc 32 g/dl (31-36); Mean Corpuscular Hemoglobin 29 pg (27-31); Mean Corpuscular Volume 91 fL (80-97); Mean Platelet Volume 8.2 fL (7.4-10.4); Platelet Count 406 10^3/ul (150-450); Red Blood Count 2.38 10^6/ul (4.00-5.40); Red Cell Distribution Width 17 % (10.5-15); White Blood Count 19.9 10^3/ul (3.5-10.8)
[2018-04-18 05:42] LABS: BUN/Creatinine Ratio 5.5 (8-20); Calcium 7.8 mg/dL (8.6-10.3); EGFR African American 6.3 (>60); EGFR Non-African American 5.2 (>60); Potassium 3.1 mmol/L (3.5-5.0)
[2018-04-18] MEDS: Mometasone/Formoter 200/5 MDI INH SCH ×3 (06:09→21:07)
--- NOTE | 2018-04-18 06:22 | PN ---
Progress Note - Progress Note Date of Service: 04/18/18 Note: I was notified of abnormal labs from this AM. Her Hb dropped from 9.3 on to 7.9 on 04/17/18 to 6.8 today. Shortly after being notified the nurse asked for me to come to bedside. The patient had a BM and with it came a large blood clot. The patient has her period but that bleeding has been quite light and the clot clearly was mixed in with the stool. GI consult will need to be requested. 1 unit PRBC ordered. Follow up H/H to be obtained at 0900. Her INR was elevated at 3.77 on 03/17/18. Will repeat the INR at 0900. Will only hold coumadin for now but may need FFP vs vitamin K if INR higher or H/H drops further.
[2018-04-18] MEDS: Methadone TAB* 5 MG PO PRN ×2 (07:09→17:55)
[2018-04-18] MEDS ORDERED: Phytonadione Oral Solution* 5 MG/25 ML UDC PO ONE (08:43)
[2018-04-18] MEDS: Albuterol 2.5 MG/3 ML NEB.SOL* (0.083%) INH PRN (09:27)
--- NOTE | 2018-04-18 09:31 | PN ---
Subjective Date of Service: 04/18/18 Interval History: No subj change in SOB. Pt states she is having her menses and often passes blood clots. No change chronic pain. She requests NRT. Objective Active Medications: Acetaminophen (Tylenol Tab*) 650 mg PO Q6H PRN PRN Reason: FEVER/PAIN Albuterol (Ventolin 2.5 Mg/3 Ml Neb.Kaylynn*) 2.5 mg INH Q2H PRN PRN Reason: SOB/WHEEZING Last Admin: 04/17/18 14:27 Dose: 2.5 mg Albuterol/Ipratropium (Duoneb (Albuterol 2.5 Mg/Ipratropium 0.5 Mg)) 1 neb INH [id number] AWAKE [facility] Last Admin: 04/18/18 06:09 Dose: 1 neb Aspirin (Aspirin Ec Tab*) 81 mg PO DAILY [facility] Last Admin: 04/17/18 10:30 Dose: 81 mg Bethanechol Chloride (Urecholine Tab*) 25 mg PO QID [facility] Last Admin: 04/17/18 20:57 Dose: 25 mg Calcitriol (Rocaltrol Cap*) 0.25 mcg PO TID [facility] Last Admin: 04/17/18 20:57 Dose: 0.25 mcg Dextrose (D50w Syringe 50 Ml*) 12.5 gm IV PUSH .FOR FS < 60 - SS PRN PRN Reason: FS < 60 Gabapentin (Neurontin Cap(*)) 200 mg PO TID [facility] Last Admin: 04/17/18 20:57 Dose: 200 mg Guaifenesin (Mucinex*) 1,200 mg PO BID [facility] Last Admin: 04/17/18 20:57 Dose: 1,200 mg Piperacillin Sod/Tazobactam (Sod 3.375 gm/ Sodium Chloride) 100 mls @ 25 mls/ hr IVPB Q12H [facility] Last Admin: 04/17/18 23:35 Dose: 25 mls/hr Insulin Glargine (Lantus(*)) 80 units SUBCUT BEDTIME [facility] Last Admin: 04/17/18 21:27 Dose: 80 unit Insulin Human Lispro (Humalog*) 0 units SUBCUT ACHS [facility]; Protocol Last Admin: 04/17/18 21:27 Dose: 9 units Lidocaine (Topicaine 4% Gel*) 1 applic TOPICAL DAILY [facility] Last Admin: 04/17/18 20:57 Dose: Not Given Methadone HCl (Dolophine Tab*) 5 mg PO Q8HR PRN PRN Reason: PAIN Last Admin: 04/18/18 07:09 Dose: 5 mg Mometasone Furoate/Formoterol Fumar (Dulera 200/5 Mdi*) 2 puff INH BID [facility]; Protocol Last Admin: 04/18/18 07:20 Dose: 2 puff Morphine Sulfate (Morphine Vial*) 4 mg IV Q4H PRN PRN Reason: PAIN Ondansetron HCl (Zofran Inj*) 4 mg IV Q6H PRN PRN Reason: NAUSEA Pantoprazole Sodium (Protonix Tab*) 40 mg PO QPM [facility] Last Admin: 04/17/18 18:18 Dose: 40 mg Pharmacy Consult (Zosyn Per Pharmacy*) 1 note FOLLOW UP .ZOSYN PER PHARMACY [facility] Prednisone (Deltasone Tab*) 60 mg PO DAILY [facility] Last Admin: 04/17/18 10:30 Dose: 60 mg Promethazine HCl (Phenergan Tab*) 25 mg PO Q8H PRN PRN Reason: NAUSEA Sertraline HCl (Zoloft*) 25 mg PO DAILY [facility] Last Admin: 04/17/18 10:30 Dose: 25 mg Vital Signs - 8 hr 04/18/18 04/18/18 04/18/18 02:00 03:00 03:01 Temperature Pulse Rate 92 103 102 Respiratory 15 19 16 Rate Blood Pressure 110/56 114/80 (mmHg) O2 Sat by Pulse 90 89 89 Oximetry 04/18/18 04/18/18 04/18/18 03:38 03:55 04:00 Temperature 96.6 F Pulse Rate 94 Respiratory 19 18 Rate Blood Pressure 137/64 (mmHg) O2 Sat by Pulse 91 Oximetry 04/18/18 04/18/18 04/18/18 05:00 05:01 06:00 Temperature Pulse Rate 87 88 110 Respiratory 15 17 18 Rate Blood Pressure 123/67 (mmHg) O2 Sat by Pulse 98 96 96 Oximetry 04/18/18 04/18/18 04/18/18 06:02 06:09 06:25 Temperature Pulse Rate 113 111 Respiratory 19 21 22 Rate Blood Pressure (mmHg) O2 Sat by Pulse 94 98 Oximetry 04/18/18 04/18/18 04/18/18 07:00 07:01 07:05 Temperature Pulse Rate 100 106 Respiratory 18 18 21 Rate Blood Pressure 122/61 (mmHg) O2 Sat by Pulse 98 99 Oximetry 04/18/18 04/18/18 04/18/18 07:09 07:49 08:00 Temperature Pulse Rate 100 Respiratory 23 14 18 Rate Blood Pressure 145/68 (mmHg) O2 Sat by Pulse 98 Oximetry 04/18/18 04/18/18 04/18/18 08:01 08:11 08:12 Temperature Pulse Rate 98 93 93 Respiratory 18 16 16 Rate Blood Pressure 118/69 107/62 (mmHg) O2 Sat by Pulse 97 94 95 Oximetry 04/18/18 04/18/18 09:00 09:01 Temperature Pulse Rate 102 105 Respiratory 25 18 Rate Blood Pressure 141/43 (mmHg) O2 Sat by Pulse 96 95 Oximetry Oxygen Devices in Use Now: High Flow Heated Nasal Cannula Appearance: Alert, on her R side in ICU bed. In fair spirits. Somewhat tachypneic but otherwise looks comfortable. Eyes: No Scleral Icterus Neck: NL Appearance and Movements; NL JVP, No Thyroid Enlargement, Masses Respiratory: Symmetrical Chest Expansion and Respiratory Effort, Clear to Percussion, - - mod rhonchi BL Cardiovascular: NL Sounds; No Murmurs; No JVD, RRR, No Edema, - Abdominal: NL Sounds; No Tenderness; No Distention, No Hepatosplenomegaly, - Extremities: No Edema, No Clubbing, Cyanosis, - Skin: No Rash or Ulcers, No Nodules or Sclerosis, - Neurological: Alert and Oriented x 3, NL Sensation Result Diagrams: 04/18/18 05:15 04/18/18 05:15 Microbiology and Other Data: Microbiology 04/17/18 20:30 Stool Gross Appearance - Final Stool C. difficile DNA Amplification - Final 027 Presumptive NEGATIVE Toxigenic C.diff NEGATIVE 04/17/18 10:54 Nasal Screen MRSA (PCR) - Final Nasal Mrsa Not Detected Assess/Plan/Problems-Billing Assessment: - Patient Problems (1) Pneumonia Current Visit: No Status: Acute Code(s): J18.9 - PNEUMONIA, UNSPECIFIED ORGANISM SNOMED Code(s): 318150823 Comment: Abnl CXR, leukocytosis, worsened A-A gradient. Although afebrile, PNA is a strong possibility. Continue pip/jed. (2) COPD (chronic obstructive pulmonary disease) Current Visit: No Status: Chronic Code(s): J44.9 - CHRONIC OBSTRUCTIVE PULMONARY DISEASE, UNSPECIFIED SNOMED Code(s): 69210388 Comment: Slow prednisone taper start 04/19. Continue neb tx, mometasone/ formoterol in place of her Symbicort. In process of weaning off Vapotherm 04/18. (3) Chronic pain Current Visit: No Status: Acute Code(s): G89.29 - OTHER CHRONIC PAIN SNOMED Code(s): 61133728 Comment: - Likely combination of diabetic neuropathy and chronic disease. - Continue methadone 5mg Q8h and gabapentin. (4) Tobacco abuse Current Visit: No Status: Acute Code(s): Z72.0 - TOBACCO USE SNOMED Code(s ): 016191633 Comment: Pt advised to quit smoking and avoid second hand smoke. NRT ordered. (5) ESRD on peritoneal dialysis Current Visit: No Status: Chronic Code(s): N18.6 - END STAGE RENAL DISEASE; Z99.2 - DEPENDENCE ON RENAL DIALYSIS SNOMED Code(s): 67403024 Comment: - On PD at night - Stable (6) Type II diabetes mellitus with complication, uncontrolled Current Visit: No Status: Acute Code(s): E11.8 - TYPE 2 DIABETES MELLITUS WITH UNSPECIFIED COMPLICATIONS; E11.65 - TYPE 2 DIABETES MELLITUS WITH HYPERGLYCEMIA SNOMED Code(s): 14703347 Comment: The patient has uncontrolled type II DM. She is insulin dependent. Continue Glargine 40u and SSI insulin.
[2018-04-18] MEDS: Insulin LISPRO* 1 UNITS UNIT SUBCUT SCH ×4 (09:39→21:56)
[2018-04-18] MEDS: Morphine VIAL* 4 MG/ML VIAL (1 ml vial) IV PRN ×3 (09:40→20:25)
[2018-04-18] MEDS: Sertraline* 25 MG TAB PO SCH (09:42)
[2018-04-18] MEDS: Bethanechol TAB* 25 MG PO SCH ×4 (09:43→22:12)
[2018-04-18] MEDS: Gabapentin CAP(*) 100 MG PO SCH ×3 (09:43→20:26)
[2018-04-18] MEDS: guaiFENesin ER TAB 600 MG PO SCH ×2 (09:43→20:26)
[2018-04-18] MEDS: Calcitriol CAP* 0.25 MCG PO SCH ×3 (09:43→22:12)
[2018-04-18] MEDS: Aspirin EC TAB* 81 MG TAB.EC PO SCH (09:43)
[2018-04-18] MEDS: Lidocaine 4% GEL* 10 GM TUBE TOPICAL SCH (09:44)
[2018-04-18] MEDS: Nicotine PATCH 21 MG/24 HR* PATCH TRANSDERM SCH (09:44)
[2018-04-18] MEDS: Acetaminophen TAB* 325 MG PO PRN ×2 (12:00→17:55)
[2018-04-18] MEDS: ZOSYN 3.375 GM Q12H per EXTENDED INFUSION IVPB SCH ×2 (12:01)
[2018-04-18 12:55] LABS: Hematocrit 26 % (35-47); Hemoglobin 8.4 g/dl (12.0-16.0)
[2018-04-18 16:52] LABS: INR 6.68 (0.77-1.02)
[2018-04-18] MEDS: Potassium Chlor TAB* 10 MEQ TAB.ER PO SCH ×2 (17:14→17:55)
[2018-04-18] MEDS: Pantoprazole TAB * 40 MG TAB PO SCH (17:14)
[2018-04-18] MEDS: Cefepime 1 GM in Dextrose(*) 1 GM/50 ML BAG IV SCH (17:54)
[2018-04-18] MEDS: Insulin GLARGINE(*) 1 UNITS UNIT SUBCUT SCH (21:57)
[2018-04-18] MEDS: Nicotine Patch Removal NOTE PATCH OFF SCH (22:16)
[2018-04-19] MEDS: Morphine VIAL* 4 MG/ML VIAL (1 ml vial) IV PRN ×5 (01:03→19:50)
[2018-04-19] MEDS: Albuterol/Ipratropium NEB.SOL* Albuterol 2.5 MG/Ipratropium 0.5 MG 3 ML INH SCH ×4 (01:54→19:56)
[2018-04-19 07:12] LABS: ABS Basophils 0 10^3/ul (0-0.2); ABS Eosinophils 0.2 10^3/ul (0-0.6); ABS Lymphocytes 1.5 10^3/ul (1.0-4.8); ABS Monocytes 0.5 10^3/ul (0-0.8); ABS Neutrophils 12.3 10^3/ul (1.5-7.7); ABS Nucleated RBC 0 10^3/ul; Eosinophil % 1.5 %; Hematocrit 25 % (35-47); Hemoglobin 7.8 g/dl (12.0-16.0); Lymphocyte % 10.6 %; Mean Corpuscular HGB Conc 32 g/dl (31-36); Mean Corpuscular Hemoglobin 29 pg (27-31); Mean Corpuscular Volume 91 fL (80-97); Mean Platelet Volume 8.2 fL (7.4-10.4); Nucleated Red Blood Cells % 0.2; Platelet Count 409 10^3/ul (150-450); Red Blood Count 2.73 10^6/ul (4.00-5.40); Red Cell Distribution Width 17 % (10.5-15); White Blood Count 14.5 10^3/ul (3.5-10.8)
[2018-04-19 07:19] LABS: INR 3.34 (0.77-1.02)
[2018-04-19 07:30] LABS: Calcium 7.5 mg/dL (8.6-10.3); EGFR African American 7.8 (>60); EGFR Non-African American 6.4 (>60); Potassium 2.9 mmol/L (3.5-5.0)
[2018-04-19] MEDS: Insulin LISPRO* 1 UNITS UNIT SUBCUT SCH ×4 (07:51→20:38)
[2018-04-19] MEDS: Mometasone/Formoter 200/5 MDI INH SCH ×2 (07:55→19:56)
[2018-04-19] MEDS: Aspirin EC TAB* 81 MG TAB.EC PO SCH (10:13)
[2018-04-19] MEDS: guaiFENesin ER TAB 600 MG PO SCH ×2 (10:13→20:40)
[2018-04-19] MEDS: Gabapentin CAP(*) 100 MG PO SCH ×3 (10:13→20:39)
[2018-04-19] MEDS: Potassium Chlor TAB* 20 MEQ TAB.ER PO SCH ×2 (10:13→13:07)
[2018-04-19] MEDS: Nicotine PATCH 21 MG/24 HR* PATCH TRANSDERM SCH (10:13)
[2018-04-19] MEDS: Calcitriol CAP* 0.25 MCG PO SCH ×3 (10:14→20:42)
[2018-04-19] MEDS: Sertraline* 25 MG TAB PO SCH (10:14)
[2018-04-19] MEDS: Bethanechol TAB* 25 MG PO SCH ×4 (10:14→20:42)
[2018-04-19] MEDS: predniSONE TAB* 50 MG PO SCH (10:14)
[2018-04-19] MEDS: Lidocaine 4% GEL* 10 GM TUBE TOPICAL SCH (10:22)
[2018-04-19] MEDS: predniSONE TAB* 20 MG PO SCH (10:23)
--- NOTE | 2018-04-19 10:45 | PN ---
Subjective Date of Service: 04/19/18 Interval History: Margaux's blood sugar was 34 this morning. She says she did not eat dinner last night, and then she wanted fruit and juice and her nurse did not allow it. SHe normally takes 80U of Lantus at night, which is what she received last night. Her only complaint this morning is of pain, thinks her meds are overdue. She denies hematochezia, melena. She is sure the clot that was thought to be in her stool the other morning was actually from her period--says she has always bled very heavily with clots. She has been weaned down to 5L O2 and says her breathing feels comfortable. She is still coughing with a little phlegm. Afebrile. Objective Active Medications: Acetaminophen (Tylenol Tab*) 650 mg PO Q6H PRN PRN Reason: FEVER/PAIN Last Admin: 04/18/18 17:55 Dose: 650 mg Albuterol (Ventolin 2.5 Mg/3 Ml Neb.Kaylynn*) 2.5 mg INH Q2H PRN PRN Reason: SOB/WHEEZING Last Admin: 04/18/18 09:27 Dose: 2.5 mg Albuterol/Ipratropium (Duoneb (Albuterol 2.5 Mg/Ipratropium 0.5 Mg)) 1 neb INH [id number] AWAKE [facility] Last Admin: 04/19/18 07:54 Dose: 1 neb Aspirin (Aspirin Ec Tab*) 81 mg PO DAILY [facility] Last Admin: 04/19/18 10:13 Dose: 81 mg Bethanechol Chloride (Urecholine Tab*) 25 mg PO QID [facility] Last Admin: 04/19/18 10:14 Dose: 25 mg Calcitriol (Rocaltrol Cap*) 0.25 mcg PO TID [facility] Last Admin: 04/19/18 10:14 Dose: 0.25 mcg Dextrose (D50w Syringe 50 Ml*) 12.5 gm IV PUSH .FOR FS < 60 - SS PRN PRN Reason: FS < 60 Last Admin: 04/19/18 07:58 Dose: 12.5 gm Gabapentin (Neurontin Cap(*)) 200 mg PO TID [facility] Last Admin: 04/19/18 10:13 Dose: 200 mg Guaifenesin (Mucinex*) 1,200 mg PO BID [facility] Last Admin: 04/19/18 10:13 Dose: 1,200 mg Cefepime HCl (Maxipime 1 Gm In Dextrose Duplex (*)) 1 gm in 50 mls @ 100 mls/ hr IV Q48H [facility] Last Admin: 04/18/18 17:54 Dose: 100 mls/hr Insulin Glargine (Lantus(*)) 80 units SUBCUT BEDTIME [facility] Last Admin: 04/18/18 21:57 Dose: 80 unit Insulin Human Lispro (Humalog*) 0 units SUBCUT ACHS [facility]; Protocol Last Admin: 04/19/18 07:51 Dose: Not Given Lidocaine (Topicaine 4% Gel*) 1 applic TOPICAL DAILY [facility] Last Admin: 04/19/18 10:22 Dose: Not Given Methadone HCl (Dolophine Tab*) 5 mg PO Q8HR PRN PRN Reason: PAIN Last Admin: 04/18/18 17:55 Dose: 5 mg Mometasone Furoate/Formoterol Fumar (Dulera 200/5 Mdi*) 2 puff INH BID [facility]; Protocol Last Admin: 04/19/18 07:55 Dose: 2 puff Morphine Sulfate (Morphine Vial*) 4 mg IV Q4H PRN PRN Reason: PAIN Last Admin: 04/19/18 05:41 Dose: 4 mg Nicotine (Nicotine Patch 21 Mg/24 Hr*) 1 patch TRANSDERM DAILY@0800 [facility] Last Admin: 04/19/18 10:13 Dose: 1 patch Ondansetron HCl (Zofran Inj*) 4 mg IV Q6H PRN PRN Reason: NAUSEA Pantoprazole Sodium (Protonix Tab*) 40 mg PO QPM [facility] Last Admin: 04/18/18 17:14 Dose: 40 mg Pharmacy Profile Note (Nicotine Patch Removal Note*) 1 note PATCH OFF 2100 [facility] Last Admin: 04/18/18 22:16 Dose: 1 note Potassium Chloride (Klor Con Er Tab*) 40 meq PO Q4H [facility] Stop: 04/19/18 14:01 Last Admin: 04/19/18 10:13 Dose: 40 meq Prednisone (Deltasone Tab*) 50 mg PO DAILY [facility] Last Admin: 04/19/18 10:14 Dose: 50 mg Promethazine HCl (Phenergan Tab*) 25 mg PO Q8H PRN PRN Reason: NAUSEA Sertraline HCl (Zoloft*) 25 mg PO DAILY [facility] Last Admin: 04/19/18 10:14 Dose: 25 mg Vital Signs - 8 hr 04/19/18 04/19/18 04/19/18 05:41 07:56 07:57 Pulse Rate 95 95 Respiratory 18 18 Rate O2 Sat by Pulse 92 95 Oximetry 04/19/18 10:13 Pulse Rate Respiratory 20 Rate O2 Sat by Pulse Oximetry Oxygen Devices in Use Now: Nasal Cannula, High Flow Nasal Cannula Appearance: alert, no distress, lying in bed Eyes: No Scleral Icterus, - - left pupil >> right pupil, L is not reactive Ears/Nose/Mouth/Throat: NL Teeth, Lips, Gums Neck: NL Appearance and Movements; NL JVP Respiratory: - - rhonchi throughout, worse on the right Cardiovascular: RRR, No Edema Abdominal: - - PD catheter site clean. abdomen obese, not distended, nontender Lymphatic: No Cervical Adenopathy Extremities: - - R midfoot amputation Skin: No Rash or Ulcers Neurological: Alert and Oriented x 3 Result Diagrams: 04/19/18 06:45 04/19/18 06:45 Microbiology and Other Data: Microbiology 04/17/18 20:30 Stool Gross Appearance - Final Stool C. difficile DNA Amplification - Final 027 Presumptive NEGATIVE Toxigenic C.diff NEGATIVE 04/17/18 10:54 Nasal Screen MRSA (PCR) - Final Nasal Mrsa Not Detected Assess/Plan/Problems-Billing Assessment: - Patient Problems (1) Pneumonia Current Visit: No Status: Acute Code(s): J18.9 - PNEUMONIA, UNSPECIFIED ORGANISM SNOMED Code(s): 622644377 Comment: Check sputum cultures, blood cultures, strep/legionella antigens Continue cefepime (2) Anemia Current Visit: No Status: Acute Code(s): D64.9 - ANEMIA, UNSPECIFIED SNOMED Code(s): 485871513 Comment: multifactorial--anemia of CKD and menorrhagia, chronic inflammation received 1U PRBCs 04/17 with appropriate response stable (3) Acute respiratory failure with hypoxia Current Visit: No Status: Acute Code(s): J96.01 - ACUTE RESPIRATORY FAILURE WITH HYPOXIA SNOMED Code(s): 64568201 Comment: She is back to her baseline O2 requirement of 5L continuously. Suspect this was related to worsening pneumonia. Required vapotherm in ICU for one day. (4) Supratherapeutic INR Current Visit: Yes Status: Acute Code(s): R79.1 - ABNORMAL COAGULATION PROFILE SNOMED Code(s): 802619782 Comment: Likely related to sepsis in the setting of warfarin She describes HIT as the reason she is on warfarin--continue Received vitamin K also on 04/17 with good response Continue to hold warfarin until INR <3 (5) Chronic pain Current Visit: No Status: Acute Code(s): G89.29 - OTHER CHRONIC PAIN SNOMED Code(s): 99175303 Comment: Continue methadone and morphine and gabapentin. (6) Type II diabetes mellitus with complication, uncontrolled Current Visit: No Status: Acute Code(s): E11.8 - TYPE 2 DIABETES MELLITUS WITH UNSPECIFIED COMPLICATIONS; E11.65 - TYPE 2 DIABETES MELLITUS WITH HYPERGLYCEMIA SNOMED Code(s): 84443133 Comment: with now HYPOGLYCEMIA liberalize diet and decrease lantus for tonight--she admits she is eating less here than she does at home (7) ESRD (end stage renal disease) Current Visit: No Status: Chronic Code(s): N18.6 - END STAGE RENAL DISEASE SNOMED Code(s): 68968024 Comment: On peritoneal dialysis Lytes and volume okay (needed some K this morning) (8) History of heparin-induced thrombocytopenia Current Visit: Yes Status: Acute Code(s): Z86.2 - PRSNL HISTORY OF [facility] Code(s): 941522106 Comment: noted
[2018-04-19 13:18] LABS: Urine Appearance Cloudy; Urine Bacteria Absent (Absent); Urine Bilirubin Negative (Negative); Urine Blood 3+ (Negative); Urine Glucose Negative (Negative); Urine Ketones Negative (Negative); Urine Nitrite Negative (Negative); Urine Protein 2+(100 mg/dL) (Negative); Urine Red Blood Cell 3+(>10/hpf) (Absent); Urine Specific Gravity 1.018 (1.010-1.030); Urine Squamous Epithelial Cell Present (Absent); Urine Urobilinogen Negative (Negative); Urine White Blood Cell Absent (Absent)
[2018-04-19 13:19] LABS: Urine Color Red
--- NOTE | 2018-04-19 14:55 | PN ---
Hospitalist Progress Note Date of Service: 04/19/18 Called for ongoing leg pain. I came to evaluate Margaux. She complains of b/l thigh and hip pain, but worse in the right, and right thigh swelling. This has been going on for three weeks. On exam, her right thigh is mildly increased in diameter than her left thigh and is tender to palpation. She has good range of motion actively and passively in both hips, no skin changes, and both legs are warm and well perfused. Given her elevated INR the past few days, I am checking a CT of her thigh to rule out a hematoma.
[2018-04-19 16:53] LABS: Hematocrit 28 % (35-47); Hemoglobin 8.9 g/dl (12.0-16.0); Mean Corpuscular HGB Conc 32 g/dl (31-36); Mean Corpuscular Hemoglobin 29 pg (27-31); Mean Corpuscular Volume 91 fL (80-97); Mean Platelet Volume 8.2 fL (7.4-10.4); Platelet Count 443 10^3/ul (150-450); Red Blood Count 3.11 10^6/ul (4.00-5.40); Red Cell Distribution Width 17 % (10.5-15); White Blood Count 22.3 10^3/ul (3.5-10.8)
[2018-04-19] MEDS: Mupirocin 2% OINT* TUBE TOPICAL SCH (17:08)
[2018-04-19 17:47] LABS: ABS Basophils 0 10^3/ul (0-0.2); ABS Eosinophils 0 10^3/ul (0-0.6); ABS Lymphocytes 0.2 10^3/ul (1.0-4.8); ABS Monocytes 0.1 10^3/ul (0-0.8); ABS Nucleated RBC 0 10^3/ul; Eosinophil % 0.1 %; Lymphocyte % 0.7 %; Nucleated Red Blood Cells % 0.1
[2018-04-19] MEDS: Pantoprazole TAB * 40 MG TAB PO SCH (17:52)
[2018-04-19] MEDS: Insulin GLARGINE(*) 1 UNITS UNIT SUBCUT SCH (20:39)
[2018-04-19] MEDS: Methadone TAB* 5 MG PO PRN (20:40)
[2018-04-19] MEDS: Nicotine Patch Removal NOTE PATCH OFF SCH (20:41)
[2018-04-20] MEDS: Morphine VIAL* 4 MG/ML VIAL (1 ml vial) IV PRN ×6 (00:06→23:07)
[2018-04-20] MEDS: Albuterol/Ipratropium NEB.SOL* Albuterol 2.5 MG/Ipratropium 0.5 MG 3 ML INH SCH ×4 (01:20→19:32)
[2018-04-20] MEDS: Mometasone/Formoter 200/5 MDI INH SCH ×2 (07:52→19:32)
[2018-04-20] MEDS: Gabapentin CAP(*) 100 MG PO SCH ×3 (10:33→21:47)
[2018-04-20] MEDS: Sertraline* 25 MG TAB PO SCH (10:33)
[2018-04-20] MEDS: guaiFENesin ER TAB 600 MG PO SCH ×2 (10:33→21:47)
[2018-04-20] MEDS: Aspirin EC TAB* 81 MG TAB.EC PO SCH (10:33)
[2018-04-20] MEDS: predniSONE TAB* 50 MG PO SCH (10:33)
[2018-04-20] MEDS: Nicotine PATCH 21 MG/24 HR* PATCH TRANSDERM SCH (10:33)
[2018-04-20] MEDS: Insulin LISPRO* 1 UNITS UNIT SUBCUT SCH ×4 (10:34→21:49)
[2018-04-20] MEDS: Calcitriol CAP* 0.25 MCG PO SCH ×3 (11:49→21:48)
[2018-04-20] MEDS: Bethanechol TAB* 25 MG PO SCH ×4 (11:49→21:48)
[2018-04-20] MEDS: Lidocaine 4% GEL* 10 GM TUBE TOPICAL SCH (11:49)
[2018-04-20] MEDS: Mupirocin 2% OINT* TUBE TOPICAL SCH (11:50)
[2018-04-20] MEDS ORDERED: Acetaminophen TAB* 325 MG PO PRN (14:48)
--- NOTE | 2018-04-20 15:09 | PN ---
Subjective Date of Service: 04/20/18 Interval History: Pt seen and examined. Meds and labs reviewed. CC: Anterior thigh numbness of BLLE; mentions later that she has diagnosis of peripheral neuropathy; Mild swelling of right thigh. Changed CT ordered yesterday to RLE upon reviewing w/pt and Dr. Kothari note. ROS: Denied CRAFT/dizziness, F/C, N/V, CP, SOB, increased cough, sputum production , abd pain, diarrhea, constipation, dysuria, throat pain, and new skin lesions. The rest of the 14 point ROS are unremarkable. PHYSICAL EXAM: GEN APPEARANCE: Awake, not in acute distress HEENT: NC/AT, PERRLA, moist oral mucosa, (-) throat erythema NECK: Soft, supple, (-) cervical LAD, (-)JVD HEART: S1S2 WNL, RRR, No MRG CHEST: CTA, BL, GAE, No W/R/R ABD: Soft, ND/NT, NABS 4x Q EXT: No C/C/Right thigh>Left, amputated toes, Right SKIN: Warm to touch PSYCH: No active psychosis, hallucinations, depression, SI/HI Objective Active Medications: Acetaminophen (Tylenol Tab*) 500 mg PO BID [facility] Acetaminophen (Tylenol Tab*) 650 mg PO Q6H PRN PRN Reason: FEVER/PAIN Albuterol (Ventolin 2.5 Mg/3 Ml Neb.Kaylynn*) 2.5 mg INH Q2H PRN PRN Reason: SOB/WHEEZING Last Admin: 04/18/18 09:27 Dose: 2.5 mg Albuterol/Ipratropium (Duoneb (Albuterol 2.5 Mg/Ipratropium 0.5 Mg)) 1 neb INH [id number] AWAKE [facility] Last Admin: 04/20/18 13:53 Dose: 1 neb Aspirin (Aspirin Ec Tab*) 81 mg PO DAILY [facility] Last Admin: 04/20/18 10:33 Dose: 81 mg Bethanechol Chloride (Urecholine Tab*) 25 mg PO QID [facility] Last Admin: 04/20/18 14:35 Dose: 25 mg Calcitriol (Rocaltrol Cap*) 0.25 mcg PO TID [facility] Last Admin: 04/20/18 14:33 Dose: Not Given Dextrose (D50w Syringe 50 Ml*) 12.5 gm IV PUSH .FOR FS < 60 - SS PRN PRN Reason: FS < 60 Last Admin: 04/19/18 07:58 Dose: 12.5 gm Gabapentin (Neurontin Cap(*)) 300 mg PO TID [facility] Guaifenesin (Mucinex*) 1,200 mg PO BID [facility] Last Admin: 04/20/18 10:33 Dose: 1,200 mg Cefepime HCl (Maxipime 1 Gm In Dextrose Duplex (*)) 1 gm in 50 mls @ 100 mls/ hr IV Q48H [facility] Last Admin: 04/18/18 17:54 Dose: 100 mls/hr Insulin Glargine (Lantus(*)) 70 units SUBCUT BEDTIME [facility] Last Admin: 04/19/18 20:39 Dose: 70 unit Insulin Human Lispro (Humalog*) 0 units SUBCUT ACHS [facility]; Protocol Last Admin: 04/20/18 12:05 Dose: Not Given Lidocaine (Topicaine 4% Gel*) 1 applic TOPICAL DAILY [facility] Last Admin: 04/20/18 11:49 Dose: Not Given Methadone HCl (Dolophine Tab*) 5 mg PO Q8HR PRN PRN Reason: PAIN Last Admin: 04/19/18 20:40 Dose: 5 mg Mometasone Furoate/Formoterol Fumar (Dulera 200/5 Mdi*) 2 puff INH BID [facility]; Protocol Last Admin: 04/20/18 07:52 Dose: 2 puff Morphine Sulfate (Morphine Vial*) 4 mg IV Q4H PRN PRN Reason: PAIN Last Admin: 04/20/18 10:30 Dose: 4 mg Mupirocin (Bactroban 2 % Oint*) 1 applic TOPICAL DAILY [facility] Last Admin: 04/20/18 11:50 Dose: Not Given Nicotine (Nicotine Patch 21 Mg/24 Hr*) 1 patch TRANSDERM DAILY@0800 [facility] Last Admin: 04/20/18 10:33 Dose: 1 patch Ondansetron HCl (Zofran Inj*) 4 mg IV Q6H PRN PRN Reason: NAUSEA Pantoprazole Sodium (Protonix Tab*) 40 mg PO QPM [facility] Last Admin: 04/19/18 17:52 Dose: 40 mg Pharmacy Profile Note (Nicotine Patch Removal Note*) 1 note PATCH OFF 2100 [facility] Last Admin: 04/19/18 20:41 Dose: 1 note Prednisone (Deltasone Tab*) 50 mg PO DAILY [facility] Last Admin: 04/20/18 10:33 Dose: 50 mg Promethazine HCl (Phenergan Tab*) 25 mg PO Q8H PRN PRN Reason: NAUSEA Sertraline HCl (Zoloft*) 25 mg PO DAILY [facility] Last Admin: 04/20/18 10:33 Dose: 25 mg Vital Signs - 8 hr 04/20/18 04/20/18 04/20/18 07:55 08:41 10:30 Temperature 98.4 F Pulse Rate 103 110 Respiratory 16 18 20 Rate Blood Pressure 150/50 (mmHg) O2 Sat by Pulse 96 95 Oximetry 04/20/18 04/20/18 04/20/18 10:33 11:16 13:56 Temperature 98.6 F Pulse Rate 105 110 Respiratory 18 20 18 Rate Blood Pressure 156/65 (mmHg) O2 Sat by Pulse 97 96 Oximetry 04/20/18 04/20/18 14:01 14:36 Temperature Pulse Rate Respiratory 18 18 Rate Blood Pressure (mmHg) O2 Sat by Pulse Oximetry Oxygen Devices in Use Now: Nasal Cannula Result Diagrams: 04/19/18 16:46 04/19/18 06:45 Microbiology and Other Data: Microbiology 04/17/18 20:30 Stool Gross Appearance - Final Stool C. difficile DNA Amplification - Final 027 Presumptive NEGATIVE Toxigenic C.diff NEGATIVE 04/17/18 10:54 Nasal Screen MRSA (PCR) - Final Nasal Mrsa Not Detected Assess/Plan/Problems-Billing Assessment: - Patient Problems (1) Pneumonia Current Visit: No Status: Acute Code(s): J18.9 - PNEUMONIA, UNSPECIFIED ORGANISM SNOMED Code(s): 891590135 Comment: -Blood Cx: (-)x 1 day -(-)Legionella and S. pneumo urine Ags -Continue cefepime, Abx day #04/06 (2) Peripheral neuropathy Current Visit: Yes Status: Acute Code(s): G62.9 - POLYNEUROPATHY, UNSPECIFIED SNOMED Code(s): 469090154 Comment: -Likely cause of BLLE numbness and possible peritoneal fluid leaking into thigh given mild swelling of RLE thigh? -Increased Gabapentin to 300 PO TID -Placed pt on Scheduled Tylenol BID -No hematoma seen on RLE CT; only edema (3) Anemia Current Visit: No Status: Acute Code(s): D64.9 - ANEMIA, UNSPECIFIED SNOMED Code(s): 717606750 Comment: -Multifactorial--anemia of CKD and menorrhagia, chronic inflammation -received 1U PRBCs 04/17 with appropriate response -stable from labs available; for some reason AM labs still not available at 3PM ; will wait for AM labs -Will obtain Iron studies, B12, Folate, MMA to confirm above suspicion (4) Acute respiratory failure with hypoxia Current Visit: No Status: Acute Code(s): J96.01 - ACUTE RESPIRATORY FAILURE WITH HYPOXIA SNOMED Code(s): 38555923 Comment: -She is back to her baseline O2 requirement of 5L continuously. -Likely due to COPD exacerbation due to PNA -Required vapotherm in ICU for one day. (5) Supratherapeutic INR Current Visit: Yes Status: Acute Code(s): R79.1 - ABNORMAL COAGULATION PROFILE SNOMED Code(s): 119226079 Comment: -Likely related to sepsis in the setting of warfarin -She describes HIT as the reason she is on warfarin--continue -Received vitamin K also on 04/17 with good response -Continue to hold warfarin until INR <3---morning labs still pending (6) Chronic pain Current Visit: No Status: Acute Code(s): G89.29 - OTHER CHRONIC PAIN SNOMED Code(s): 00156715 Comment: Continue methadone and morphine and gabapentin. (7) Diabetes 1.5, managed as type 2 Current Visit: Yes Status: Acute Code(s): E13.9 - OTHER SPECIFIED DIABETES MELLITUS WITHOUT COMPLICATIONS SNOMED Code(s): 687045882 Comment: -Improved and will continue to observe o/n to see if she will require further adjustments and its magnitude (8) ESRD on peritoneal dialysis Current Visit: No Status: Chronic Code(s): N18.6 - END STAGE RENAL DISEASE; Z99.2 - DEPENDENCE ON RENAL DIALYSIS SNOMED Code(s): 17853399 Comment: -On peritoneal dialysis -PD nurse sees him everyday per RN; will defer (9) HIT (heparin-induced thrombocytopenia) Current Visit: Yes Status: Acute Code(s): D75.82 - HEPARIN INDUCED THROMBOCYTOPENIA (HIT) SNOMED Code(s): 00777999 Comment: -Hx of -Off Coumadin due to mildly elevated INR (10) DVT prophylaxis Current Visit: Yes Status: Acute Code(s): ZQB8997 - SNOMED Code(s): 825661651 Comment: -As above -Coumadin being held Status and Disposition: -Will await official PT eval for D/C planning -Possible D/C in 1-2 days
[2018-04-20 15:22] LABS: Hematocrit 28 % (35-47); Hemoglobin 8.7 g/dl (12.0-16.0); Mean Corpuscular HGB Conc 31 g/dl (31-36); Mean Corpuscular Hemoglobin 28 pg (27-31); Mean Corpuscular Volume 91 fL (80-97); Mean Platelet Volume 8.2 fL (7.4-10.4); Platelet Count 433 10^3/ul (150-450); Red Blood Count 3.07 10^6/ul (4.00-5.40); Red Cell Distribution Width 17 % (10.5-15)
[2018-04-20 15:23] LABS: ABS Basophils 0.1 10^3/ul (0-0.2); ABS Eosinophils 0 10^3/ul (0-0.6); ABS Lymphocytes 0.3 10^3/ul (1.0-4.8); ABS Monocytes 0.3 10^3/ul (0-0.8); ABS Neutrophils 21.3 10^3/ul (1.5-7.7); ABS Nucleated RBC 0 10^3/ul; Eosinophil % 0.1 %; Lymphocyte % 1.4 %; Nucleated Red Blood Cells % 0
[2018-04-20 15:27] LABS: INR 2.13 (0.77-1.02)
[2018-04-20 15:38] LABS: Albumin 2.9 g/dL (3.2-5.2); Albumin/Globulin Ratio 0.9 (1-3); BUN/Creatinine Ratio 7.8 (8-20); Calcium 8.2 mg/dL (8.6-10.3); EGFR African American 8.9 (>60); EGFR Non-African American 7.3 (>60); Globulin 3.2 g/dL (2-4); Magnesium 1.7 mg/dL (1.9-2.7); Phosphorus 5.4 mg/dL (2.5-5.0); Total Bilirubin 0.2 mg/dL (0.2-1.0); Total Protein 6.1 g/dL (6.4-8.9)
[2018-04-20] MEDS: Pantoprazole TAB * 40 MG TAB PO SCH (17:52)
[2018-04-20] MEDS: Cefepime 1 GM in Dextrose(*) 1 GM/50 ML BAG IV SCH (17:52)
[2018-04-20] MEDS: Acetaminophen TAB* 325 MG PO SCH (21:46)
[2018-04-20] MEDS: Insulin GLARGINE(*) 1 UNITS UNIT SUBCUT SCH (21:49)
[2018-04-20] MEDS: Nicotine Patch Removal NOTE PATCH OFF SCH (21:51)
[2018-04-21] MEDS: Albuterol/Ipratropium NEB.SOL* Albuterol 2.5 MG/Ipratropium 0.5 MG 3 ML INH SCH ×3 (01:24→14:04)
[2018-04-21] MEDS: Morphine VIAL* 4 MG/ML VIAL (1 ml vial) IV PRN ×2 (04:59→09:24)
[2018-04-21 06:21] LABS: ABS Basophils 0.1 10^3/ul (0-0.2); ABS Eosinophils 0 10^3/ul (0-0.6); ABS Lymphocytes 0.9 10^3/ul (1.0-4.8); ABS Monocytes 0.7 10^3/ul (0-0.8); ABS Neutrophils 17.6 10^3/ul (1.5-7.7); ABS Nucleated RBC 0 10^3/ul; Eosinophil % 0.2 %; Hematocrit 26 % (35-47); Lymphocyte % 4.6 %; Mean Corpuscular HGB Conc 31 g/dl (31-36); Mean Corpuscular Hemoglobin 28 pg (27-31); Mean Corpuscular Volume 90 fL (80-97); Mean Platelet Volume 7.9 fL (7.4-10.4); Nucleated Red Blood Cells % 0; Platelet Count 387 10^3/ul (150-450); Red Blood Count 2.86 10^6/ul (4.00-5.40); Red Cell Distribution Width 17 % (10.5-15); White Blood Count 19.3 10^3/ul (3.5-10.8)
[2018-04-21 06:38] LABS: ALT 10 U/L (7-52); AST 9 U/L (13-39); Albumin 2.7 g/dL (3.2-5.2); Albumin/Globulin Ratio 0.9 (1-3); Alkaline Phosphatase 86 U/L (34-104); Anion Gap 13 mmol/L (2-11); BUN/Creatinine Ratio 8.4 (8-20); Blood Urea Nitrogen 53 mg/dL (6-24); CO2 Carbon Dioxide 27 mmol/L (22-32); Calcium 8.3 mg/dL (8.6-10.3); Chloride 99 mmol/L (101-111); EGFR Non-African American 7.4 (>60); Glucose 144 mg/dL (70-100); Magnesium 1.7 mg/dL (1.9-2.7); Phosphorus 6.4 mg/dL (2.5-5.0); Sodium 139 mmol/L (135-145); Total Protein 5.7 g/dL (6.4-8.9)
[2018-04-21 06:49] LABS: % Iron Saturation 30 % (15-55); Iron 49 ug/dL (50-212); Total Iron Binding Capacity 161 mcg/dL (250-450); Transferrin 115 mg/dL (203-362)
[2018-04-21] MEDS: Mometasone/Formoter 200/5 MDI INH SCH (07:08)
[2018-04-21 07:10] LABS: Ferritin 265.5 ng/mL (11-307)
[2018-04-21 07:14] LABS: Folate 5.32 ng/mL (>3.99)
[2018-04-21] MEDS: Nicotine PATCH 21 MG/24 HR* PATCH TRANSDERM SCH (09:24)
[2018-04-21] MEDS: guaiFENesin ER TAB 600 MG PO SCH (09:25)
[2018-04-21] MEDS: predniSONE TAB* 50 MG PO SCH (09:25)
[2018-04-21] MEDS: Sertraline* 25 MG TAB PO SCH (09:26)
[2018-04-21] MEDS: Gabapentin CAP(*) 100 MG PO SCH ×2 (09:26→15:33)
[2018-04-21] MEDS: Aspirin EC TAB* 81 MG TAB.EC PO SCH (09:26)
[2018-04-21] MEDS: Bethanechol TAB* 25 MG PO SCH ×2 (09:26→15:34)
[2018-04-21] MEDS: Calcitriol CAP* 0.25 MCG PO SCH ×2 (09:26→15:34)
[2018-04-21] MEDS: Acetaminophen TAB* 325 MG PO SCH (09:27)
[2018-04-21] MEDS: Insulin LISPRO* 1 UNITS UNIT SUBCUT SCH ×2 (09:27→13:12)
[2018-04-21] MEDS: Lidocaine 4% GEL* 10 GM TUBE TOPICAL SCH (09:35)
[2018-04-21] MEDS: Mupirocin 2% OINT* TUBE TOPICAL SCH (09:35)
[2018-04-21] MEDS ORDERED: Magnesium Sulfate IV* 3 GM in NS 0.9% 100 ML* 100 ML IVPB ONE (11:00)
[2018-04-21] MEDS: Methadone TAB* 5 MG PO PRN (15:41)
[2018-04-21 16:52] VITALS: BP 158/60
[2018-04-21] MEDS ORDERED: Warfarin TAB(*) 6 MG PO SCH (17:00)
--- NOTE | 2018-04-21 21:32 | DS ---
CC: Dr. Sebastien Garza; Dr. Yamil Garcia; Dr. Aishwarya Solis * DISCHARGE SUMMARY: DATE OF ADMISSION: DATE OF DISCHARGE: 04/21/18 DISCHARGE DIAGNOSES: Are as follows: 1. Pneumonia with sepsis, sepsis resolved. 2. Peripheral neuropathy, improved. 3. Anemia of chronic disease as well as due to anemia of blood loss due to her heavy menorrhagia, status post 3 units of PRBCs total transfused. 4. Acute respiratory failure with hypoxia likely secondary to pneumonia with sepsis. 5. History of chronic pain. 6. Diabetes mellitus type 2. 7. End-stage renal disease, on peritoneal dialysis. 8. History of heparin-induced thrombocytopenia, on Coumadin. DISCHARGE MEDICATIONS: Are as follows: 1. Tylenol 487.5 mg p.o. b.i.d. as well as p.r.n. Tylenol of 650 mg p.o. q.6 p.r.n. 2. Aspirin 81 mg p.o. daily. 3. Bethanechol 25 mg p.o. 4 times a day. 4. Symbicort 160/4.5 mcg 2 puffs inhalation b.i.d. 5. Calcitriol 0.25 mcg p.o. t.i.d. 6. Gabapentin 200 mg p.o. t.i.d. 7. Insulin glargine 70 units subcu q.h.s. 8. Lidocaine 4% gel 1 application topically daily for 14 more days. 9. Methadone 5 mg q.8 hours p.r.n. 10. Mupirocin 2% ointment 1 application topically daily. 11. Nicotine patch 21 mg per 24 hour patch daily. 12. Omeprazole 40 mg p.o. q.p.m. 13. Promethazine 25 mg p.o. q.8 p.r.n. 14. Sertraline 25 mg p.o. daily. 15. Warfarin 6 mg p.o. daily, for repeat INR in a.m. 16. Cefpodoxime 200 mg p.o. q.12 hours for 7 more days. 17. Albuterol HFA 2 puffs inhalation q.6 p.r.n. 18. Albuterol nebulization 2.5 mg inhalation q.4 hours p.r.n. 19. Insulin aspart sliding scale subcu q.a.c. 20. Floranex 2 tablets p.o. daily. 21. Losartan 100 mg p.o. daily. 22. Prednisone rapid taper as ordered. HISTORY OF PRESENT ILLNESS/HOSPITAL COURSE: The patient is a 37-year-old lady with numerous admissions to the hospital with history of ESRD, on PD as well as COPD, who presented on 04/18/18 with hypotension and low back pain and was found to have pneumonia with sepsis. She was treated with broad- spectrum antibiotics, which was narrowed to cefepime where she had been stable with. Her blood cultures were negative for 2 days. She had been ruled out for a C. diff, although she did have Enterococcus faecium growing in her urine on review of urinalysis, it seems to have not been a clean catch. Her cefepime was continued and her sepsis has resolved. Gradually, she started complaining of bilateral lower extremity pain on her upper thighs and which was likely due to her peripheral neuropathy that is known. She was placed on gabapentin and scheduled Tylenol b.i.d. in addition to p.r.n. and she has done well and mentioned that since these were started, her pain level from 8 or 9/10 to what is now 1/10 prior to her discharge. She was also found to have anemia of chronic disease as well as due to acute blood loss, due to her heavy menorrhagia and has received total of 3 units of PRBC prior to her discharge. Her Coumadin was momentarily held for a few days given she was supratherapeutic when she was admitted, currently now at therapeutic levels with the last one being 2.13. Her Coumadin dose has been lowered to 6 mg and she had been asked to repeat INR in the a.m. and to discuss the results with her PCP. She also was noted to have right thigh edema, which was evaluated with a CT scan, which showed some edema without any hematoma, which was a previous concern and has been ruled out for a DVT in that area as well and so cause is likely due to the leak of her hypotonic peritoneal dialysis fluid that has been used. She mentions that she uses a different fluid at home. Since using a different fluid this morning, her right thigh has since decreased in size and hence we will defer with dog beautician on further evaluation. She had been advised to follow up and/or call her PCP within 3 days post discharge and to check her INR tomorrow and discuss the results with her PCP. She was advised that if her symptoms resume or develop new ones or feel unwell for any reason, to call her PCP first and if her PCP cannot entertain her due to scheduling issues alone, she was advised to call [facility] if the issue is not emergent. She was advised to call my office regarding any questions, concerns or further clarifications regarding her discharge plan and/ or prescriptions and to take her medications as prescribed. REVIEW OF SYSTEMS: The patient currently denies any headaches, dizziness, fevers, chills, nausea, vomiting, chest pain, shortness of breath, increased cough and sputum production, abdominal pain, diarrhea, constipation, pain and/ or increased frequency in urination, myalgias, arthralgias, throat pain, or new skin lesions. The rest of the 14-point review of systems are, otherwise, unremarkable. PHYSICAL EXAMINATION: Reveals the most recent vital signs of records with blood pressure of 153/59, from 157/64, 20 per minute respiratory rate, heart rate of 98 beats per minute saturating 95%. General Appearance: The patient is awake, alert, and oriented x3, not in acute distress. HEENT: Normocephalic , atraumatic, PERRLA. Extraocular muscles are intact. Negative for icterus. Moist oral mucosa. Negative throat erythema. Neck is soft, supple with no cervical lymphadenopathy, no JVD. Heart: S1, S2 within normal limits. Regular rate and rhythm. No murmurs, rubs or gallops. Chest: Clear to auscultation bilaterally. Good air entry. No wheezes, rales, or rhonchi. Abdomen is soft, nondistended, nontender. Normoactive bowel sounds x4 quadrants. Extremities: No cyanosis or clubbing. Psychiatric: No active psychosis, depression, suicidal or homicidal ideation. Skin is warm to touch. TIME SPENT: The total time spent evaluating the patient, reviewing pertinent data and appropriate documentation is 1 hour and 5 minutes. [id number]/CPS #: [id number] MTDD
== END 2018-04-21 16:45 | disposition home health service (06) | DRG 720 ==
LOC: ED 14:50 → MED 16:31 → ICU 04-17 07:53 → OBSVTOIN 04-18 11:10 → MED 04-18 19:40
PROVIDERS: ADMIT Internal Medicine; ATTEND Student in an Organized Health Care Education/Training Program
PROC: 3E1M39Z Irrigation of Peritoneal Cavity using Dialysate, Percutaneous Approach (ICD-10-PCS; 2018-04-17)
PROC: 30233N1 Transfusion of Nonautologous Red Blood Cells into Peripheral Vein, Percutaneous Approach (ICD-10-PCS; principal; 2018-04-18)
DX: A41.9 Sepsis, unspecified organism (principal); J96.21 Acute and chronic respiratory failure with hypoxia; J18.9 Pneumonia, unspecified organism; N18.6 End stage renal disease; I13.11 Hypertensive heart and chronic kidney disease without heart failure, with stage 5 chronic kidney disease, or end stage renal disease; J44.0 Chronic obstructive pulmonary disease with (acute) lower respiratory infection; J44.1 Chronic obstructive pulmonary disease with (acute) exacerbation; D62 Acute posthemorrhagic anemia; Z99.81 Dependence on supplemental oxygen; E11.22 Type 2 diabetes mellitus with diabetic chronic kidney disease; E11.42 Type 2 diabetes mellitus with diabetic polyneuropathy; I95.9 Hypotension, unspecified; I25.10 Atherosclerotic heart disease of native coronary artery without angina pectoris; D75.82 Heparin induced thrombocytopenia (HIT); D63.1 Anemia in chronic kidney disease; G89.29 Other chronic pain; J44.9 Chronic obstructive pulmonary disease, unspecified; N92.0 Excessive and frequent menstruation with regular cycle; R79.1 Abnormal coagulation profile; K21.9 Gastro-esophageal reflux disease without esophagitis; E11.43 Type 2 diabetes mellitus with diabetic autonomic (poly)neuropathy; K31.84 Gastroparesis; F41.9 Anxiety disorder, unspecified; F32.9 Major depressive disorder, single episode, unspecified; E78.5 Hyperlipidemia, unspecified; M54.5 Low back pain; M19.90 Unspecified osteoarthritis, unspecified site; F17.210 Nicotine dependence, cigarettes, uncomplicated; M51.36 Other intervertebral disc degeneration, lumbar region; C51.9 Malignant neoplasm of vulva, unspecified; Z99.2 Dependence on renal dialysis; Z79.01 Long term (current) use of anticoagulants; Z79.1 Long term (current) use of non-steroidal anti-inflammatories (NSAID); Z79.82 Long term (current) use of aspirin; Z79.4 Long term (current) use of insulin; Z79.51 Long term (current) use of inhaled steroids; Z79.899 Other long term (current) drug therapy; Z88.1 Allergy status to other antibiotic agents; Z88.2 Allergy status to sulfonamides; Z88.8 Allergy status to other drugs, medicaments and biological substances; Z91.048 Other nonmedicinal substance allergy status; Z82.49 Family history of ischemic heart disease and other diseases of the circulatory system; Z83.3 Family history of diabetes mellitus; Z80.1 Family history of malignant neoplasm of trachea, bronchus and lung; Z80.41 Family history of malignant neoplasm of ovary
CPT/HCPCS: 36415; 36600; 71045; 74018; 80048; 80053; 81003; 81015; 82607; 82728; 82746; 82803; 82947; 83540; 83550; 83735; 83921; 84100; 85014; 85018; 85025; 85027; 85610; 86850; 86900; 86901; 86922; 87040; 87077; 87086; 87106; 87186; 87493; 87641; 87899; 94640; 99285; A9270-GY; G0378; J0692; J1940; J2270; J2543; J2930; J3475; J7512; P9040

== ENCOUNTER 2018-04-29 18:07 | Inpatient (IN) | payer OTHER ==
--- NOTE | 2018-04-29 18:36 | ED ---
Complex/Multi-Sys Presentation - HPI Summary HPI Summary: A 37 y/o female brought in by [facility] presents to [facility] with a chief complaint of vomiting since 04/28/18. She also c/o nausea, fevers, and chills starting 04/28/18. She reports that her temperature was 99.5. At triage her temperature was 97.8. She also c/o abdominal pain when coughing, her thighs being swollen, and since 04/25/18 having leg pain which she describes is worse than her neuropathy. She claims that she can hardly walk since her legs give out. Palpations and movement aggravate her pain. At triage she rated her pain as a 9/10 in severity. She reports that she was recently admitted and was discharged on 04/21/18 after having two blood transfusions over the course of a week. She reports that her INR improved to a 1.3, but that she didnt make it to her follow up appointment on 04/28/18 because she could not get out of her house. She reports taking abx, but reports that she has not been able to eat or drink since 04/26/18. Vital signs while in room HR: 109bpm, BP: 175/70. - History Of Current Complaint Chief Complaint: EDGeneral Time Seen by Provider: 04/29/18 18:20 Hx Obtained From: Patient, EMS Onset/Duration: Sudden Onset, Lasting Days, Still Present Timing: Constant, Days Severity Currently: Severe Severity Initially: Severe Location: Pain At: - legs, abdomen Character: Unable To Describe Aggravating Factor(s): palpation, movement. Alleviating Factor(s): nothing Associated Signs And Symptoms: Positive: Cough, Nausea, Abdominal Pain, Fever - 99.5 CERTIFIED HAND THERAPIST, 97.8 at triage - Allergies/Home Medications Allergies/Adverse Reactions: Allergies Allergy/AdvReac Type Severity Reaction Status Date / Time Adhesive Tape [Plastic Tape] Allergy Mild Blisters Verified 04/14/18 12:05 doxycycline Allergy Unknown Verified 04/14/18 12:05 Reaction Details erythromycin base Allergy See Comment Verified 04/14/18 12:05 heparin Allergy See Comment Verified 04/14/18 12:05 metoclopramide [From Reglan] Allergy Hives Verified 04/14/18 12:05 niacin Allergy Rash Verified 04/14/18 12:05 ropinirole [From Requip] Allergy Hives Verified 04/14/18 12:05 metronidazole [From Flagyl] AdvReac Nausea And Verified 04/21/18 13:15 Vomiting Sulfa (Sulfonamide AdvReac Vomiting Verified 04/21/18 13:15 Antibiotics) PMH/Surg Hx/FS Hx/Imm Hx Previously Healthy: No Endocrine/Hematology History: Reports: Hx Anticoagulant Therapy - Aspirin., Hx Blood Transfusions, Hx Diabetes, Hx Thyroid Disease - nodule, Hx Anemia - hx of - reports had tranfusion in 2013 after mi Cardiovascular History: Reports: Hx Angina, Hx Cardiac Arrest, Hx Cardiomegaly, Hx Coronary Artery Disease, Hx Deep Vein Thrombosis, Hx Hypercholesterolemia, Hx Hypertension, Hx Myocardial Infarction, Hx Peripheral Vascular Disease, Other Cardiovascular Problems/Disorders Denies: Hx Congestive Heart Failure, Hx Pacemaker/ICD, Hx Valvular Heart Disease Respiratory History: Reports: Hx Asthma, Hx Chronic Obstructive Pulmonary Disease (COPD) - smoker, Hx Pneumonia, Hx Sleep Apnea, Other Respiratory Problems/Disorders - acute respipatory failure with hypoxia - jan 2016 Denies: Hx Lung Cancer, Hx Pulmonary Embolism - pt says no, although documented in char GI History: Reports: Hx Gall Bladder Disease, Hx Gastroesophageal Reflux Disease , Other GI Disorders - GASTROPARESIS - TAKING OMEPRAZOLE, reglan and zofran Denies: Hx Gastrointestinal Bleed, Hx Ulcer, Hx Urosepsis History: Reports: Hx Acute Renal Failure, Hx Chronic Renal Failure - ESRD on PD, Hx Dialysis - PERITONEAL, Hx Kidney Stones, Hx Renal Disease - ESRD on home peritoneal dialysis , Other Problems/Disorders Musculoskeletal History: Reports: Hx Arthritis - back, hips, Hx Back Problems - Sciatica and Herniated L3 disk, Other Musculoskeletal History - partial amputation of toes/foot Sensory History: Reports: Hx Contacts or Glasses, Hx Eye Prosthesis - L eye, 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 left eye removed, toes removed right, heart cath, abdominal catheters for dialysis, 6 times melanoma removed. Hx Anesthesia Reactions: No - Immunization History Date of Tetanus Vaccine: utd Date of Influenza Vaccine: 11/2016 Infectious Disease History: No Infectious Disease History: Reports: Hx of Known/Suspected MRSA - MRSA R 1st toe , History Other Infectious Disease - GANGRENE Denies: Hx Clostridium Difficile, Hx Hepatitis, Hx Human Immunodeficiency Virus (HIV), Hx Shingles, Hx Tuberculosis, Traveled Outside the [place] in Last 30 Days - Family History Known Family History: Positive: Cardiac Disease - father [place] at 42 y/o, Hypertension, Other - Positive for bipolar and depression. Completed suicide to sister. - Social History Alcohol Use: None Hx Substance Use: No Substance Use Type: Reports: None Substance Use Comment - Amount & Last Used: methadone Hx Tobacco Use: Yes Smoking Status (MU): Heavy Every Day Tobacco Smoker Type: Cigarettes Amount Used/How Often: 1 PPD Length of Time of Smoking/Using Tobacco: 20 YEARS Have You Smoked in the Last Year: Yes Review of Systems Positive: Fever - 99.5 CERTIFIED HAND THERAPIST, 97.8 at triage, Chills Positive: Cough Positive: Abdominal Pain, Vomiting, Nausea Positive: Edema All Other Systems Reviewed And Are Negative: Yes Physical Exam - Summary Physical Exam Summary: Appearance: The patient is well-nourished in no acute distress and in no acute pain. Skin: The skin is warm and dry and skin color reflects adequate perfusion. HEENT: The head is normocephalic and atraumatic. The pupils are equal and reactive. The conjunctivae are clear and without drainage. Nares are patent and without drainage. Mouth reveals moist mucous membranes and the throat is without erythema and exudate. The external ears are intact. The ear canals are patent and without drainage. The tympanic membranes are intact. Neck: The neck is supple with full range of motion and non-tender. There are no carotid bruits. There is no neck vein distension. Respiratory: Chest is non-tender. Lungs are clear to auscultation and breath sounds are symmetrical and equal. Cardiovascular: Heart is regular rate and rhythm. There is no murmur or rub auscultated. There is no peripheral edema and pulses are symmetrical and equal. Abdomen: The abdomen is soft and non-tender. There are normal bowel sounds heard in all four quadrants and there is no organomegaly palpated. Musculoskeletal: There is no back tenderness noted. Extremities are non-tender with full range of motion. There is good capillary refill. There is no peripheral edema or calf tenderness elicited. Neurological: Patient is alert and oriented to person, place and time. The patient has symmetrical motor strength in all four extremities. Cranial nerves are grossly intact. Deep tendon reflexes are symmetrical and equal in all four extremities. Psychiatric: The patient has an appropriate affect and does not exhibit any anxiety or depression. Triage Information Reviewed: Yes Vital Signs On Initial Exam: Initial Vitals Temp Pulse Resp BP Pulse Ox 97.8 F 111 20 175/70 100 04/29/18 18:16 04/29/18 18:16 04/29/18 18:16 04/29/18 18:16 04/29/18 18:16 Vital Signs Reviewed: Yes Diagnostics - Vital Signs Vital Signs Temp Pulse Resp BP Pulse Ox 04/29/18 18:16 97.8 F 111 20 175/70 100 - Laboratory Result Diagrams: 04/30/18 05:18 04/30/18 05:18 Lab Statement: Any lab studies that have been ordered have been reviewed, and results considered in the medical decision making process. Complex Multi-Symp Course/Dx Course Of Treatment: Ms. Wright presented with an exacerbation of her chronic neuropathic pain in her bilateral thighs as well as vomiting the last couple of days with an inability to keep anything down. She oftens has these symptoms when she has an infection or other stressor therefore a work-up was initiated with IV fluids held because of her ERSD status. She was found to have a high indeterminant troponin which normally runs in the low indeterminant range. She also had a leukocytosis and CRP elevation. The hospitalist service was contacted for evaluation and admission. - Diagnoses Provider Diagnoses: Diabetic neuropathy, Leukocytosis, unspecified - Critical Care Time Critical Care Time: 30-74 min Discharge - Sign-Out/Discharge Documenting (check all that apply): Patient Departure - Discharge Plan Condition: Stable Disposition: ADMITTED TO [facility] - Billing Disposition and Condition Condition: STABLE Disposition: Admitted to [facility] - Attestation Statements Document Initiated by Debbiee: Yes Documenting Scribe: Jori Alonzo Provider For Whom Leslie is Documenting (Include Credential): Km Harper MD Scribe Attestation: I, Jori Alonzo, scribed for Km Harper MD on 04/30/18 at 0933. Scribe Documentation Reviewed: Yes Provider Attestation: The documentation as recorded by the Jori sexton accurately reflects the service I personally performed and the decisions made by me, Km Harper MD Status of Scribe Document: Viewed Consult Consult: 1945 - Spoke with Dr. Estrada about the pt's present condition who will be the accepting physician to [facility] [place].
[2018-04-29 19:50] LABS: Albumin 2.7 g/dL (3.2-5.2)
[2018-04-29 19:54] LABS: Anion Gap 13 mmol/L (2-11); CO2 Carbon Dioxide 26 mmol/L (22-32); Calcium 8.2 mg/dL (8.6-10.3); Chloride 93 mmol/L (101-111); Potassium 3.8 mmol/L (3.5-5.0); Sodium 132 mmol/L (135-145)
[2018-04-29 19:56] LABS: Albumin/Globulin Ratio 0.8 (1-3); C Reactive Protein 287.06 mg/L (<8.01); Globulin 3.3 g/dL (2-4)
[2018-04-29 19:59] LABS: Activated Partial Thrombo Time 55.6 seconds (26.0-36.3)
[2018-04-29 20:05] LABS: INR 5.36 (0.77-1.02)
[2018-04-29 20:23] LABS: ABS Basophils 0.2 10^3/ul (0-0.2); ABS Eosinophils 0.3 10^3/ul (0-0.6); ABS Lymphocytes 0.9 10^3/ul (1.0-4.8); ABS Monocytes 0.9 10^3/ul (0-0.8); ABS Neutrophils 21.2 10^3/ul (1.5-7.7); ABS Nucleated RBC 0 10^3/ul; Eosinophil % 1.1 %; Lymphocyte % 3.8 %; Nucleated Red Blood Cells % 0
[2018-04-29 20:25] LABS: ALT 8 U/L (7-52); AST 5 U/L (13-39); Alkaline Phosphatase 91 U/L (34-104); BUN/Creatinine Ratio 7.7 (8-20); Blood Urea Nitrogen 53 mg/dL (6-24); EGFR African American 8.1 (>60); EGFR Non-African American 6.7 (>60); Glucose 161 mg/dL (70-100)
[2018-04-29 20:40] LABS: Troponin I 0.37 ng/mL (<0.04)
[2018-04-29 20:41] LABS: Hematocrit 29 % (35-47); Hemoglobin 9.1 g/dl (12.0-16.0); Mean Corpuscular HGB Conc 32 g/dl (31-36); Mean Corpuscular Hemoglobin 29 pg (27-31); Mean Corpuscular Volume 90 fL (80-97); Mean Platelet Volume 8.9 fL (7.4-10.4); Platelet Count 411 10^3/ul (150-450); Red Blood Count 3.18 10^6/ul (4.00-5.40); Red Cell Distribution Width 17 % (10.5-15); White Blood Count 24.4 10^3/ul (3.5-10.8)
[2018-04-29] MEDS ORDERED: Ondansetron INJ* 2 MG/ML VIAL IV ONE (20:52)
[2018-04-29] MEDS ORDERED: Morphine INJ* 2 MG/ML 1 ML SYRINGE (TWO MG - NEW SYRINGE VERSION) IV ONE (20:54)
[2018-04-29] MEDS ORDERED: Morphine 4 MG/ML VIAL (1 ml) 4 MG/ML VIAL ONE (21:21)
[2018-04-29] MEDS ORDERED: Albuterol HFA INHALER* 8 gm MDI INH PRN (21:57)
[2018-04-29] MEDS ORDERED: Acetaminophen TAB* 325 MG PO PRN (21:57)
[2018-04-29] MEDS ORDERED: Promethazine TAB* 25 MG PO PRN (21:57)
[2018-04-29] MEDS ORDERED: Dextrose 50% Syringe 50 ML* 25 GM/50 ML SYRINGE IV PUSH PRN (22:00)
[2018-04-29 23:03] LABS: Troponin I 0.31 ng/mL (<0.04)
[2018-04-29] MEDS: Morphine 4 MG/ML VIAL (1 ml) 4 MG/ML VIAL IV PRN (23:07)
[2018-04-29] MEDS: Ondansetron INJ* 2 MG/ML VIAL IV PRN (23:09)
--- NOTE | 2018-04-29 23:47 | HP ---
CC: Dr. Aishwarya Solis * HISTORY AND PHYSICAL: DATE OF ADMISSION: 04/29/18 PRIMARY CARE PROVIDER: Dr. Aishwarya Soils. ATTENDING PHYSICIAN: Dr. Elena Estrada * (dictated by Jaylene Calvillo NP). CHIEF COMPLAINT: Leg pain. HISTORY OF PRESENT ILLNESS: Ms. Wright is a 37-year-old female well known to our service with multiple recent admission to this facility and past medical history of end-stage renal disease, on peritoneal dialysis; COPD, on 5 L oxygen ; diabetes; CAD; and chronic pain, who presents to the emergency room today with complaints of leg pain, abdominal pain, nausea, and vomiting. The patient' s main complaint is bilateral leg pain. She reports that this pain is new for her. She states that the pain starts at her hips and ends at her knees. It is circumferential around her thighs. The pain is constant, stabbing. She reports it also hurts to move her legs and they are painful to the touch. She has had difficulty ambulating due to this pain. She reports trying heat for pain management, which was not effective and she reports that her methadone and gabapentin are not effective at relieving the pain. I will note that she states that this pain is new, though she was noted to complain of this pain during a hospitalization last month. She reports that the only thing that relieves her pain is morphine. She does have baseline neuropathy up to her mid- calves, but sensation is intact to the knee and she has no pain at this level. She also reports nausea, vomiting, and abdominal pain. She states she vomited one time yesterday when she was taking her medications and one time again today when she was taking her medications. She has nausea on my exam. She denies any actual abdominal pain at this point, though reports significant abdominal pain with coughing. She does have chronic back pain, though this has not increased from baseline. She does also have diabetic neuropathy, though she states that the pain is much different than her neuropathic pain. She denies any fever, chills, chest pain, shortness of breath, edema, and rashes. In the emergency room, the patient was noted to have an elevated white count, elevated from her baseline. She was also noted to have a supratherapeutic INR as well as CRP increased from her baseline. She was noted to have an elevated troponin at 0.37 and her baseline is around 0.08. She had an EKG which did not show any acute changes. Because of the patient's intractable pain, the hospitalist service is asked to evaluate for admission. PAST MEDICAL HISTORY: 1. End-stage renal disease, on peritoneal dialysis. 2. COPD with chronic hypoxic respiratory failure, on 5 L of oxygen. 3. Diabetes mellitus type 2, insulin dependent. 4. Peripheral arterial disease. 5. GERD. 6. Coronary artery disease. 7. Gastroparesis. 8. Anxiety. 9. Depression. 10. Hypertension. 11. Hyperlipidemia. PAST SURGICAL HISTORY: 1. Right metatarsal amputation. HOME MEDICATIONS: The patient's med rec has not been completed and she does not know what medications she is taking, although according to the discharge summary from 04/21/18, the patient is takin. Tylenol 650 mg p.o. q.6 hours p.r.n. pain. 2. Aspirin 81 mg p.o. daily. 3. Bethanechol 25 mg p.o. 4 times a day. 4. Symbicort 160/4.5 mcg 2 puffs b.i.d. 5. Calcitriol 0.25 mcg p.o. t.i.d. 6. Gabapentin 200 mg p.o. t.i.d. 7. Glargine 70 units subcu at bedtime. 8. Methadone 5 mg p.o. q.8 hours p.r.n. pain. 9. Omeprazole 40 mg p.o. daily. 10. Promethazine 25 mg p.o. q.8 hours p.r.n. 11. Sertraline 25 mg p.o. daily. 12. Warfarin 6 mg p.o. daily. 13. Albuterol MDI 2 puffs q.6 hours p.r.n. 14. Losartan 100 mg p.o. daily. 15. NovoLog sliding scale. ALLERGIES: DOXYCYCLINE, ERYTHROMYCIN, HEPARIN, REGLAN, NIACIN, REQUIP, METRONIDAZOLE, and SULFA. FAMILY HISTORY: The patient's father had an PA at 49. The patient's mother had diabetes. There is a strong family history of diabetes. SOCIAL HISTORY: The patient smokes half a pack of cigarettes per day. Denies any alcohol or recreational drug use. She is disabled and lives at home with her boyfriend. Her boyfriend, Moreno, will be her surrogate decision maker in the event she is unable to make her own decisions. REVIEW OF SYSTEMS: An 11-point review of systems was performed and all the pertinent positive and negative findings are in the HPI. All other systems are negative. PHYSICAL EXAMINATION GENERAL: Ms. Wright is a well-developed, well-nourished, overweight white female lying in bed, in no acute distress, though tearful. She appears older than her stated age. VITAL SIGNS: Temp 98.8, heart rate 108, respiratory rate 16, oxygen saturations 95% on 5 L, blood pressure 137/93 HEENT: Head is atraumatic, normocephalic. Visual hernandez are grossly intact. Extraocular movements are intact. Oral mucous membranes moist and without lesions. NECK: Full range of motion. Trachea midline. RESPIRATORY: Symmetrical chest expansion. No chest wall deformities. Lungs clear to auscultation throughout. No rhonchi, wheezes, or rubs. CARDIOVASCULAR: Regular rate and rhythm. S1, S2 present. No murmurs, rubs, or gallops. ABDOMEN: Soft, mildly tender to deep palpation of the right upper quadrant. Bowel sounds normoactive. EXTREMITIES: Skin warm and smooth bilaterally. No edema. No clubbing or cyanosis. Pedal pulses 1+ bilaterally. Bilateral upper legs are markedly tender to palpation, though are normal in appearance without any evidence of wounds, rashes, or deformity. NEUROLOGIC: Awake, alert, and oriented x4. Moves all extremities. SKIN: Grossly intact. DIAGNOSTIC STUDIES AND LABORATORY DATA: WBC 24.4, RBC 3.18, hemoglobin 9.1, hematocrit 29, platelets 411. INR 5.36. Sodium 132, potassium 3.8, chloride 93 , carbon dioxide 26, BUN 53, creatinine 6.87, glucose 161, lactic acid 0.9. Troponin 0.37. CRP 287. EKG shows sinus tachycardia with a rate of 110, QTc 488, inverted T-waves in aVL which is consistent with previous EKGs on file and borderline ST elevation and depression, which are is consistent with previous EKGs. ASSESSMENT AND PLAN: Ms. Wright is a 37-year-old female with a complex past medical history including end-stage renal disease, on peritoneal dialysis; chronic obstructive pulmonary disease; chronic hypoxic respiratory failure; diabetes; peripheral arterial disease; coronary artery disease; and gastroparesis who presents to the emergency room today with complaints of leg pain and was found to have some lab abnormalities different from her baseline. The patient will be admitted for observation for: 1. Intractable leg pain. The etiology of this leg pain is unclear. It does seem somewhat odd that the leg pain is only in her upper legs and circumferential. It does sound like neuropathic pain, though the patient is very adamant that this is not neuropathic pain. She has been complaining of this pain during recent admissions, so at this point, we will check an MRI of her lumbar spine to rule out any spinal abnormalities which may be contributing to this. If the MRI does not show any abnormalities, it may be worthwhile to get a Doppler of bilateral legs. I have ordered the patient morphine, she can have q.6 hours as well as Percocet and I will continue her on her usual medications including gabapentin and methadone. 2. Nausea, vomiting, and abdominal pain. The patient has vomited twice in the last 48 hours, so I am not particularly concerned about any sort of infectious process at this point. I have ordered Zofran for nausea. She does complain of abdominal pain when coughing which sounds more musculoskeletal rather than intra -abdominal. We will continue to monitor this and if her vomiting or abdominal pain become worse, reassess at that time. 3. Elevated troponin. The patient's baseline troponin is around 0.08 and today is 0.37. I am still not completely convinced that this is accurate and I do think that this could be a laboratory error as the patient has no cardiac symptoms. Her last echocardiogram was in May 2017, so I think it is reasonable to repeat an echo at this point. I will check 2 additional troponins and EKGs, though I am not particularly concerned about an acute coronary syndrome at this point. 4. Leukocytosis and elevated CRP. The patient's white blood count and CRP are elevated from her baseline. She typically does have a high white count and CRP , though these are higher than they have been in quite some time. There is no evidence of sepsis or infection at this point. The patient was recently treated for pneumonia during her last hospitalization and sent home with a course of cefpodoxime which she reports she has taken as directed. Again, we will continue to monitor her. I will recheck her labs tomorrow and a further plan can be determined at that time if necessary. 5. Supratherapeutic INR. The patient is unsure of her current Coumadin dosing as she reports that her boyfriend manages her medications, although it appears that she has likely been taking 6 mg of warfarin daily. Her INR at this point is 5.36, so I will hold any warfarin at this point and recheck the INR tomorrow. 6. End-stage renal disease, on peritoneal dialysis. The patient can continue her usual peritoneal dialysis schedule. 7. Chronic obstructive pulmonary disease and chronic hypoxic respiratory failure. The patient is on her baseline oxygen requirements. There is no evidence to suggest any recurrent pneumonia at this point. I will continue her on her usual medications. 8. Coronary artery disease. I will continue her aspirin. 9. Diabetes. I will continue her usual dose of glargine and place her on a sliding scale of lispro while here in the hospital. 10. Chronic pain. Continue methadone. 11. Hypertension. Continue losartan. 12. Depression. Continue sertraline. 13. FEN. The patient does not any require fluid resuscitation or electrolyte repletion at this time. I have ordered a renal diet. 14. Code status. The patient will be a full code. 15. DVT prophylaxis. According to the DVT risk assessment, the patient scores a 5, putting her at highest risk. Again, her INR is supratherapeutic at this point, so I will hold any warfarin at this time. TIME SPENT: Approximately 75 minutes were spent on this admission, greater than half of that time spent [id number] with the patient obtaining my history , performing my physical exam, and reviewing my plan of care. This case has been reviewed with my attending, Dr. Estrada, who is in agreement with the plan of care. JAYLENE CALVILLO, BUTANE COMPRESSOR OPERATOR [id number]/[facility] #: [id number] VIRI
[2018-04-30] MEDS: oxyCODONE/Acetamin 5/325 MG* TAB PO PRN ×3 (01:42→19:33)
[2018-04-30 02:07] LABS: Troponin I 0.29 ng/mL (<0.04)
[2018-04-30] MEDS: Morphine 4 MG/ML VIAL (1 ml) 4 MG/ML VIAL IV PRN (05:26)
[2018-04-30 05:36] LABS: Hematocrit 31 % (35-47); Hemoglobin 9.5 g/dl (12.0-16.0); Mean Corpuscular HGB Conc 31 g/dl (31-36); Mean Corpuscular Hemoglobin 29 pg (27-31); Mean Corpuscular Volume 91 fL (80-97); Mean Platelet Volume 8.7 fL (7.4-10.4); Platelet Count 406 10^3/ul (150-450); Red Blood Count 3.34 10^6/ul (4.00-5.40); Red Cell Distribution Width 17 % (10.5-15); White Blood Count 26.3 10^3/ul (3.5-10.8)
[2018-04-30 05:37] LABS: ABS Basophils 0.2 10^3/ul (0-0.2); ABS Eosinophils 0.6 10^3/ul (0-0.6); ABS Lymphocytes 2.1 10^3/ul (1.0-4.8); ABS Monocytes 1.3 10^3/ul (0-0.8); ABS Neutrophils 22.3 10^3/ul (1.5-7.7); ABS Nucleated RBC 0 10^3/ul; Eosinophil % 2.2 %; Lymphocyte % 7.8 %; Nucleated Red Blood Cells % 0.1
[2018-04-30 05:48] LABS: Calcium 8.2 mg/dL (8.6-10.3); Potassium 4.1 mmol/L (3.5-5.0)
[2018-04-30] MEDS ORDERED: Naloxone* 0.4 MG/ML 1 ML VIAL IV PUSH ONE (05:51)
[2018-04-30 05:53] LABS: INR 5.65 (0.77-1.02)
[2018-04-30 05:54] LABS: BUN/Creatinine Ratio 7.6 (8-20); C Reactive Protein 297.81 mg/L (<8.01); EGFR African American 8.1 (>60); EGFR Non-African American 6.7 (>60)
--- NOTE | 2018-04-30 06:03 | PN ---
Progress Note - Progress Note Date of Service: 04/30/18 Note: Patient desaturated and became more somnolent shortly after morphine was administered. Perked up prior to Narcan being given. Glucose ordered. States she was told she can't have an MRI due to metal. Will order lumbar spine CT.
[2018-04-30] MEDS: Mometasone/Formoter 200/5 MDI INH SCH ×2 (07:55→20:10)
[2018-04-30] MEDS: Insulin LISPRO* 1 UNITS UNIT SUBCUT SCH ×3 (09:35→17:06)
[2018-04-30] MEDS: Sertraline* 25 MG TAB PO SCH (09:36)
[2018-04-30] MEDS: Calcitriol CAP* 0.25 MCG PO SCH ×3 (09:36→21:56)
[2018-04-30] MEDS: Gabapentin CAP(*) 100 MG PO SCH ×3 (09:36→21:55)
[2018-04-30] MEDS: Losartan TAB* 25 MG PO SCH (09:36)
[2018-04-30] MEDS: Aspirin EC TAB* 81 MG TAB.EC PO SCH (09:36)
[2018-04-30] MEDS: Bethanechol TAB* 25 MG PO SCH ×4 (09:36→21:55)
[2018-04-30] MEDS ORDERED: Piperacillin/Tazobac ADVAN(*) 3.375 GM in NS 0.9% 100 ML* 100 ML IVPB ONE ×2 (11:04→15:15)
--- NOTE | 2018-04-30 11:12 | PN ---
Subjective Date of Service: 04/30/18 Interval History: Seen with BF at bedside Main complaint is b/l pain in thighs that is described as burning - reports swelling in b/l thighs x weeks to a month Feels fatigued Minimal cough No SOB Denies chest pain/discomfort No abdominal pain No N/V, LH Objective Active Medications: Acetaminophen (Tylenol Tab*) 650 mg PO Q6H PRN PRN Reason: PAIN Albuterol (Ventolin 2.5 Mg/3 Ml Neb.Kaylynn*) 2.5 mg INH Q4HR PRN PRN Reason: SOB/WHEEZING Albuterol (Ventolin Hfa Inhaler*) 2 puff INH Q6H PRN PRN Reason: COUGH Aspirin (Aspirin Ec Tab*) 81 mg PO DAILY COUNTS INCLUDE 234 BEDS AT THE [facility] Last Admin: 04/30/18 09:36 Dose: 81 mg Bethanechol Chloride (Urecholine Tab*) 25 mg PO QID COUNTS INCLUDE 234 BEDS AT THE [facility] Last Admin: 04/30/18 09:36 Dose: 25 mg Calcitriol (Rocaltrol Cap*) 0.25 mcg PO TID COUNTS INCLUDE 234 BEDS AT THE [facility] Last Admin: 04/30/18 09:36 Dose: 0.25 mcg Dextrose (D50w Syringe 50 Ml*) 12.5 gm IV PUSH .FOR FS < 60 - SS PRN PRN Reason: FS < 60 Gabapentin (Neurontin Cap(*)) 200 mg PO TID COUNTS INCLUDE 234 BEDS AT THE [facility] Last Admin: 04/30/18 09:36 Dose: 200 mg Vancomycin HCl 1,250 mg/ (Sodium Chloride) 250 mls @ 166.667 mls/hr IVPB ONCE COUNTS INCLUDE 234 BEDS AT THE [facility]; Protocol Stop: 04/30/18 23:59 Piperacillin Sod/Tazobactam (Sod 3.375 gm/ Sodium Chloride) 100 mls @ 200 mls/ hr IVPB ONCE ONE Stop: 04/30/18 11:33 Insulin Glargine (Lantus(*)) 70 units SUBCUT BEDTIME COUNTS INCLUDE 234 BEDS AT THE [facility] Insulin Human Lispro (Humalog*) 0 units SUBCUT AC COUNTS INCLUDE 234 BEDS AT THE [facility]; Protocol Last Admin: 04/30/18 09:35 Dose: 3 unit Losartan Potassium (Cozaar Tab*) 100 mg PO DAILY COUNTS INCLUDE 234 BEDS AT THE [facility] Last Admin: 04/30/18 09:36 Dose: 100 mg Methadone HCl (Dolophine Tab*) 5 mg PO Q8HR PRN PRN Reason: PAIN Mometasone Furoate/Formoterol Fumar (Dulera 200/5 Mdi*) 2 puff INH BID COUNTS INCLUDE 234 BEDS AT THE [facility]; Protocol Last Admin: 04/30/18 07:55 Dose: Not Given Ondansetron HCl (Zofran Inj*) 4 mg IV Q4H PRN PRN Reason: NAUSEA/VOMITING Last Admin: 04/29/18 23:09 Dose: 4 mg Oxycodone/Acetaminophen (Percocet 5/325 Tab*) 1 tab PO Q4H PRN PRN Reason: Pain Last Admin: 04/30/18 01:42 Dose: 1 tab Pantoprazole Sodium (Protonix Tab*) 40 mg PO QPM COUNTS INCLUDE 234 BEDS AT THE [facility] Pharmacy Consult (Vancomycin Per Pharmacy*) 1 note FOLLOW UP .VANC PER PHARMACY COUNTS INCLUDE 234 BEDS AT THE [facility] Pharmacy Consult (Zosyn Per Pharmacy*) 1 note FOLLOW UP .ZOSYN PER PHARMACY COUNTS INCLUDE 234 BEDS AT THE [facility] Promethazine HCl (Phenergan Tab*) 25 mg PO Q8H PRN PRN Reason: NAUSEA Sertraline HCl (Zoloft*) 25 mg PO DAILY COUNTS INCLUDE 234 BEDS AT THE [facility] Last Admin: 04/30/18 09:36 Dose: 25 mg Vital Signs - 8 hr 04/30/18 04/30/18 04/30/18 03:40 04:24 05:25 Temperature 97.2 F Pulse Rate 106 Respiratory 16 16 18 Rate Blood Pressure 132/63 (mmHg) O2 Sat by Pulse 91 Oximetry 04/30/18 04/30/18 04/30/18 05:26 07:18 08:00 Temperature Pulse Rate Respiratory 20 12 Rate Blood Pressure (mmHg) O2 Sat by Pulse 94 Oximetry 04/30/18 04/30/18 09:23 09:36 Temperature 98.1 F Pulse Rate 102 Respiratory 16 14 Rate Blood Pressure 124/51 (mmHg) O2 Sat by Pulse 94 Oximetry Oxygen Devices in Use Now: Simple Face Mask - 7L Appearance: obese, sleeping, easy to wake to voice, NAD Eyes: No Scleral Icterus, PERRLA Ears/Nose/Mouth/Throat: NL Teeth, Lips, Gums, Clear Oropharnyx Neck: NL Appearance and Movements; NL JVP, Trachea Midline Respiratory: Symmetrical Chest Expansion and Respiratory Effort, - - diffuse wheeze and scattered rhonchi throughout Cardiovascular: - - tachy, RRR Abdominal: NL Sounds; No Tenderness; No Distention, No Hepatosplenomegaly Extremities: - - lower LE are small and wasting, uper thighs TTP and slightly tense, FROM distally, pulses present Neurological: Alert and Oriented x 3 Result Diagrams: 04/30/18 05:18 04/30/18 05:18 Microbiology and Other Data: Microbiology 04/29/18 23:00 Nasal Screen MRSA (PCR) - Final Nasal Mrsa Not Detected Assess/Plan/Problems-Billing Assessment: 37 yo F complicated medical history including ESRD on PD, COPD with chronic resp failure on 5L o2, IDDM, chronic pain on methadone, unconfirmed CAD and recent admission at the end of March for PNA/Sepsis returning with b/l thigh pain found with elevated CRP/WBC and increased troponin - Patient Problems (1) Pneumonia Comment: Did not present with cough/SOB but CRP >200, WBC >20 (baseline elevated) CXR concerning for PNA although notably absent volume loss. Patient cannot stand 2/ 2 pain to obtain CXR PA/Lat views. I am starting broad spectrum abx (vanco/zosyn) and follow WBC and CXR (2) Thigh pain Comment: Add on CPK Check LE b/l ultrasound Can consider CTA with runoff given /o PAD and stenting (3) CAD (coronary artery disease) Comment: Denies history of stents but reports "cardiac arrest" during dialysis Last myoview 2016 here was low risk Suspect elevated trop in setting of demand although not clear source of increased demand EKG non ischemic, presented without any cardiac symptomatolgy consider stress in future (4) ESRD on peritoneal dialysis Comment: -On peritoneal dialysis - continue inpatient (5) IDDM (insulin dependent diabetes mellitus) Comment: Last HbA1c 2017 - added on to labs now continuue basal/bolus insulin (6) PAD (peripheral artery disease) Comment: - complicated by DVTs now on coumadin - reports b/l LE stenting 1 and 2 years ago at [facility] by Dr. Watson ( sp?) - INR supratherapeutic - Hold coumadin tonight and follow INR in AM (7) Supratherapeutic INR Comment: supratherapeutic INR (8) DVT prophylaxis Comment: supratherapeutic INR
[2018-04-30 11:29] LABS: Creatine Kinase 37 U/L (10-223)
[2018-04-30] MEDS: Albuterol 2.5 MG/3 ML NEB.SOL* (0.083%) INH PRN ×2 (11:53→20:08)
[2018-04-30] MEDS ORDERED: Vancomycin(*) 1,250 MG in NS 0.9% 250 ML* 250 ML IVPB ONE ×2 (12:00→16:00)
[2018-04-30] MEDS ORDERED: Zosyn per Pharmacy* NOTE FOLLOW UP SCH (12:00)
[2018-04-30] MEDS ORDERED: Vancomycin per Pharmacy* NOTE FOLLOW UP SCH (12:00)
[2018-04-30] MEDS: Ondansetron INJ* 2 MG/ML VIAL IV PRN (13:07)
[2018-04-30] MEDS ORDERED: oxyCODONE TAB* 5 MG TAB PO ONE (13:16)
--- NOTE | 2018-04-30 14:51 | ECHO ---
Patient: JULI PERRY [facility] Rec#: [id number] : 1980 Date: 04/30/2018 Age: 37y Height: 165 cm / 65.0 in Weight: 93.4 kg / 205.9 lbs Sex: F BSA: 2 Room#: 436 Admit Date#: 04/29/2018 Type: Inpatient Referring: Jaylene Calvillo Reading: Aimee Vilchis MD Safety Director: Katerin Robison RN RDCS CC: Aishwarya Solis MD Transthoracic Echocardiogram Indication: Elevated troponin levels BP: 132/63 HR: 96 Rhythm: NSR Findings History: CAD, HTN, HLD, DM, PE, ESRD, COPD, smoker, PAD Technical Comments: The study quality is fair. The study is technically limited due to patient body habitus. The study is technically limited due to the patient's history of COPD. Left Ventricle: The left ventricular chamber size is normal. Moderate concentric left ventricular hypertrophy is observed. Global left ventricular wall motion and contractility are within normal limits. Left ventricular systolic function is at the lower limits of normal. Base of the lateral wall relatively hypokinetic on short axis and 4 chamber view, small focal area. The estimated ejection fraction is 50-55%. Abnormal left ventricular diastolic function is observed. The patient was unable to perform a Valsalva maneuver. Left Atrium: The left atrium is mildly dilated. Right Ventricle: The right ventricle is mildly dilated. The right ventricular global systolic function is low normal. Right Atrium: The right atrium is mildly dilated. Aortic Valve: The aortic valve structure is not well visualized. The aortic valve leaflets are mildly thickened. Systolic excursion of the aortic valve is normal. There is a trace of aortic regurgitation. Highest aortic valve velocity was acquired with Pedoff in apical position. Mitral Valve: There is mitral annular calcification. The mitral valve leaflets are mildly thickened. There is a trace of mitral regurgitation. There is no evidence of mitral stenosis. Tricuspid Valve: The tricuspid valve leaflets are normal. There is moderate tricuspid regurgitation. The tricuspid regurgitant jet is directed toward the septum. The right ventricular systolic pressure is estimated at 42 mmHg. There is evidence of mild to moderate pulmonary hypertension. There is no tricuspid stenosis. Pulmonic Valve: The pulmonic valve appears normal. There is a trace pulmonic regurgitation. There is no pulmonic stenosis. Pericardium: There is no significant pericardial effusion. A pericardial fat pad is visualized. Aorta: There is no dilatation of the ascending aorta. There is no dilatation of the aortic arch. There is no dilation of the aortic root. Pulmonary Artery: The main pulmonary artery appears normal. Venous: The venous system is not well visualized. The inferior vena cava is not visualized. Conclusions Moderate concentric left ventricular hypertrophy is observed. Global left ventricular wall motion and contractility are within normal limits. Base of the lateral wall relatively hypokinetic on short axis and 4 chamber view, small focal area. The estimated ejection fraction is 50-55%. Abnormal left ventricular diastolic function is observed. The right ventricular global systolic function is low normal. There is aortic valve sclerosis with trace aortic regurgitation. There is a trace of mitral regurgitation. There is moderate tricuspid regurgitation, eccentric jet directed toward the septum. There is evidence of mild to moderate pulmonary hypertension estimated at 42 mmHg. Compared with prior echo of 06/14/17, EF is stable, focal area of hypokinesis newly described, AI is new, MR is stable, TR has increased from trace, elevated PA pressure newly documented. Measurements Name Value Normal Range RVIDd (AP) 2D 3.3 cm (0.9 - 2.6) RVDdMajor (2D) 4.6 cm (2.2 - 4.4) RAd ISD 4CH 5.3 cm (3.4 - 4.9) RA (A4C)W 4 cm (2.9 - 4.6) IVSd (2D) 1.4 cm (0.6 - 1) LVPWd (2D) 1.4 cm (0.6 - 1) LVIDd (2D) 5.3 cm (3.6 - 5.4) LVIDs (2D) 4 cm - LVIDd (2D) index 2.65 cm/m2 - LVIDs (2D) index 2 cm/m2 - LV FS (2D) 25 % (25 - 45) Aortic Annulus 1.9 cm (1.4 - 2.6) Ao root diameter (2D) 3 cm (2.1 - 3.5) Ascending Ao 2.6 cm (2.1 - 3.4) Aortic arch 2.2 cm (1.8 - 3.4) LA dimension (AP) 2D 4.5 cm (2.3 - 3.8) LAd ISD 4CH 5.2 cm (2.9 - 5.3) LA ISD 4CH W 4.6 cm (2.5 - 4.5) Name Value Normal Range LA ESV BP (A/L) index 39.8 ml/m2 - Name Value Normal Range MV E-wave Vmax 0.95 m/sec - MV deceleration time 208 msec - MV A-wave Vmax 0.94 m/sec - MV E:A ratio 1 ratio - LV septal e' Vmax 0.07 m/sec - LV lateral e' Vmax 0.08 m/sec - LV E:e' septal ratio 13.6 ratio - LV E:e' lateral ratio 11.9 ratio - Name Value Normal Range AV Vmax 2 m/sec - AV VTI 33.1 cm - AV peak gradient 16 mmHg - AV mean gradient 8 mmHg - LVOT diameter 2 cm - LVOT Vmax 1.2 m/sec - LVOT VTI 20.3 cm - LVOT peak gradient 6 mmHg - LVOT mean gradient 3 mmHg - DOI (VTI) 0.61 ratio - DOI (Vmax) 0.6 ratio - DEE (continuity Vmax) 1.9 cm2 - DEE (continuity VTI) 1.9 cm2 - RACHEL Vmax 1.2 m/sec - Name Value Normal Range MV Vmax 1.3 m/sec - MV VTI 25.5 cm - MV peak gradient 6 mmHg - MV mean gradient 3 mmHg - MV PHT 70 msec - MVA (PHT) 3.1 cm2 - MVA (continuity VTI) 2.5 cm2 - Name Value Normal Range TR Vmax 2.9 m/sec - TR peak gradient 34 mmHg - RAP 8 mmHg - RVSP 42 mmHg - Name Value Normal Range PV Vmax 1 m/sec -
[2018-04-30] MEDS: Methadone TAB* 5 MG PO PRN (16:02)
[2018-04-30] MEDS: Pantoprazole TAB * 40 MG TAB PO SCH (17:06)
[2018-04-30] MEDS: ZOSYN 3.375 GM Q12H per EXTENDED INFUSION IVPB SCH ×2 (19:34)
[2018-04-30 21:35] LABS: Urine Appearance Turbid; Urine Bacteria Absent (Absent); Urine Bilirubin Negative (Negative); Urine Blood Negative (Negative); Urine Color Yellow; Urine Glucose 2+(150 mg/dL) (Negative); Urine Ketones Trace (Negative); Urine Nitrite Negative (Negative); Urine Protein 2+(100 mg/dL) (Negative); Urine Red Blood Cell 3+(>10/hpf) (Absent); Urine Specific Gravity 1.027 (1.010-1.030); Urine Squamous Epithelial Cell Present (Absent); Urine Urobilinogen Negative (Negative); Urine White Blood Cell 3+(>20/hpf) (Absent)
[2018-04-30] MEDS: Insulin GLARGINE(*) 1 UNITS UNIT SUBCUT SCH (21:54)
[2018-05-01 05:51] LABS: Hematocrit 30 % (35-47); Mean Corpuscular HGB Conc 30 g/dl (31-36); Mean Corpuscular Hemoglobin 28 pg (27-31); Mean Corpuscular Volume 93 fL (80-97); Mean Platelet Volume 8.8 fL (7.4-10.4); Platelet Count 395 10^3/ul (150-450); Red Blood Count 3.18 10^6/ul (4.00-5.40); Red Cell Distribution Width 17 % (10.5-15); White Blood Count 25.9 10^3/ul (3.5-10.8)
[2018-05-01 05:52] LABS: ABS Basophils 0.2 10^3/ul (0-0.2); ABS Eosinophils 0.1 10^3/ul (0-0.6); ABS Lymphocytes 0.4 10^3/ul (1.0-4.8); ABS Monocytes 0.7 10^3/ul (0-0.8); ABS Neutrophils 24.5 10^3/ul (1.5-7.7); ABS Nucleated RBC 0 10^3/ul; Eosinophil % 0.3 %; Lymphocyte % 1.7 %; Nucleated Red Blood Cells % 0
[2018-05-01 05:55] LABS: INR 4.52 (0.77-1.02)
[2018-05-01 06:07] LABS: BUN/Creatinine Ratio 6.7 (8-20); Calcium 8.1 mg/dL (8.6-10.3); EGFR African American 6.9 (>60); EGFR Non-African American 5.7 (>60); Potassium 4.2 mmol/L (3.5-5.0)
[2018-05-01 06:18] LABS: Vancomycin Random 15.5 mcg/mL
[2018-05-01] MEDS: Albuterol 2.5 MG/3 ML NEB.SOL* (0.083%) INH PRN ×3 (07:49→19:17)
[2018-05-01] MEDS: Mometasone/Formoter 200/5 MDI INH SCH ×3 (07:51→19:17)
[2018-05-01] MEDS: Calcitriol CAP* 0.25 MCG PO SCH ×3 (08:21→22:28)
[2018-05-01] MEDS: Losartan TAB* 25 MG PO SCH (08:21)
[2018-05-01] MEDS: ZOSYN 3.375 GM Q12H per EXTENDED INFUSION IVPB SCH ×4 (08:21→19:57)
[2018-05-01] MEDS: Bethanechol TAB* 25 MG PO SCH ×4 (08:21→22:27)
[2018-05-01] MEDS: Gabapentin CAP(*) 100 MG PO SCH ×3 (08:21→22:28)
[2018-05-01] MEDS: Aspirin EC TAB* 81 MG TAB.EC PO SCH (08:21)
[2018-05-01] MEDS: Sertraline* 25 MG TAB PO SCH (08:21)
[2018-05-01] MEDS: Methadone TAB* 5 MG PO PRN (08:22)
[2018-05-01] MEDS: Insulin LISPRO* 1 UNITS UNIT SUBCUT SCH ×3 (08:22→16:44)
[2018-05-01] MEDS ORDERED: Loperamide CAP* 2 MG PO ONE (10:14)
[2018-05-01] MEDS: Lactobacillus Acidophilus* 1 TAB PO SCH ×2 (10:28→22:27)
--- NOTE | 2018-05-01 15:56 | PN ---
Subjective Date of Service: 05/01/18 Interval History: Pt c/o diarrhea and poor appetite. diarrhea improved after one tab imodium and probiotic. denies abd pain. No problems with peritoneal dialysis overnight B/l thighs had been hurting x 1 week. Denies falling Objective Active Medications: Acetaminophen (Tylenol Tab*) 650 mg PO Q6H PRN PRN Reason: PAIN Albuterol (Ventolin 2.5 Mg/3 Ml Neb.Kaylynn*) 2.5 mg INH Q4HR PRN PRN Reason: SOB/WHEEZING Last Admin: 05/01/18 14:55 Dose: 2.5 mg Albuterol (Ventolin Hfa Inhaler*) 2 puff INH Q6H PRN PRN Reason: COUGH Aspirin (Aspirin Ec Tab*) 81 mg PO DAILY [facility] Last Admin: 05/01/18 08:21 Dose: 81 mg Bethanechol Chloride (Urecholine Tab*) 25 mg PO QID [facility] Last Admin: 05/01/18 12:39 Dose: 25 mg Calcitriol (Rocaltrol Cap*) 0.25 mcg PO TID [facility] Last Admin: 05/01/18 12:39 Dose: 0.25 mcg Dextrose (D50w Syringe 50 Ml*) 12.5 gm IV PUSH .FOR FS < 60 - SS PRN PRN Reason: FS < 60 Gabapentin (Neurontin Cap(*)) 200 mg PO TID [facility] Last Admin: 05/01/18 12:39 Dose: 200 mg Piperacillin Sod/Tazobactam (Sod 3.375 gm/ Sodium Chloride) 100 mls @ 25 mls/ hr IVPB Q12H [facility] Last Admin: 05/01/18 08:21 Dose: 25 mls/hr Insulin Glargine (Lantus(*)) 70 units SUBCUT BEDTIME [facility] Last Admin: 04/30/18 21:54 Dose: 70 units Insulin Human Lispro (Humalog*) 0 units SUBCUT AC [facility]; Protocol Last Admin: 05/01/18 12:39 Dose: 3 unit Lactobacillus Rhamnosus (Lactobacillus Acidophilus*) 1 tab PO BID [facility] Last Admin: 05/01/18 10:28 Dose: 1 tab Losartan Potassium (Cozaar Tab*) 100 mg PO DAILY [facility] Last Admin: 05/01/18 08:21 Dose: 100 mg Methadone HCl (Dolophine Tab*) 5 mg PO Q8HR PRN PRN Reason: PAIN Last Admin: 05/01/18 08:22 Dose: 5 mg Mometasone Furoate/Formoterol Fumar (Dulera 200/5 Mdi*) 2 puff INH BID [facility]; Protocol Last Admin: 05/01/18 08:00 Dose: Not Given Ondansetron HCl (Zofran Inj*) 4 mg IV Q4H PRN PRN Reason: NAUSEA/VOMITING Last Admin: 04/30/18 13:07 Dose: 4 mg Oxycodone/Acetaminophen (Percocet 5/325 Tab*) 1 tab PO Q4H PRN PRN Reason: Pain Last Admin: 04/30/18 19:33 Dose: 1 tab Pantoprazole Sodium (Protonix Tab*) 40 mg PO QPM [facility] Last Admin: 04/30/18 17:06 Dose: 40 mg Pharmacy Consult (Zosyn Per Pharmacy*) 1 note FOLLOW UP .ZOSYN PER PHARMACY [facility] Promethazine HCl (Phenergan Tab*) 25 mg PO Q8H PRN PRN Reason: NAUSEA Sertraline HCl (Zoloft*) 25 mg PO DAILY [facility] Last Admin: 05/01/18 08:21 Dose: 25 mg Vital Signs - 8 hr 05/01/18 05/01/18 05/01/18 07:51 08:21 08:22 Temperature 98.3 F Pulse Rate 105 110 Respiratory 16 20 22 Rate Blood Pressure 152/88 (mmHg) O2 Sat by Pulse 92 93 Oximetry 05/01/18 05/01/18 05/01/18 09:58 10:28 11:28 Temperature 98.0 F Pulse Rate 141 Respiratory 20 22 20 Rate Blood Pressure 116/94 (mmHg) O2 Sat by Pulse 98 Oximetry 05/01/18 05/01/18 05/01/18 12:20 12:39 14:56 Temperature Pulse Rate 110 Respiratory 20 20 18 Rate Blood Pressure (mmHg) O2 Sat by Pulse 95 Oximetry 05/01/18 15:33 Temperature Pulse Rate 79 Respiratory 20 Rate Blood Pressure (mmHg) O2 Sat by Pulse Oximetry Oxygen Devices in Use Now: Nasal Cannula Appearance: 37 yo F in nAD, AAOx3 Eyes: No Scleral Icterus, PERRLA Ears/Nose/Mouth/Throat: NL Teeth, Lips, Gums, Mucous Membranes Moist Neck: NL Appearance and Movements; NL JVP, Trachea Midline Respiratory: Symmetrical Chest Expansion and Respiratory Effort, - - rhonchi at b/l bases Cardiovascular: NL Sounds; No Murmurs; No JVD, RRR Abdominal: - - large , protruberant, soft, NT, BS+, PD cath in place Lymphatic: No Cervical Adenopathy Extremities: - - thighs tended with palapation with bluish skin discoloration on lateral aspects b/l-blanchable, but delayed refill. r foot s/p TMA. b/l pedal pulses not palpable, no cyanosis,delayed refill b/l Skin: No Nodules or Sclerosis Neurological: Alert and Oriented x 3, NL Muscle Strength and Tone Result Diagrams: 05/01/18 05:24 05/01/18 05:24 Microbiology and Other Data: Microbiology 04/29/18 23:00 Nasal Screen MRSA (PCR) - Final Nasal Mrsa Not Detected Assess/Plan/Problems-Billing Assessment: 37 yo F complicated medical history including ESRD on PD, COPD with chronic resp failure on 5L , IDDM, chronic pain on methadone, unconfirmed CAD and recent admission at the end of March for PNA/Sepsis returning with b/l thigh pain found with elevated CRP/WBC and increased troponin - Patient Problems (1) Thigh pain Comment: CPK 32, concerning markedly elevated CRP. spoke with pt , MRI not possible due to bare metal stents in b/l LE's. Pt refuses CT myelogram and neurologically is not signidificantly impaires from baseline, as per pt. Suspect vascular problem. will get CTA abd aorta with runoff. Will ask ID to see tomorrow (2) Pneumonia SNOMED Code(s): 819463585 Comment: Did not present with cough/SOB but CRP >200, WBC >20 (baseline elevated) CXR concerning for PNA although notably absent volume loss. Patient cannot stand 2/2 pain to obtain CXR PA/Lat views. Starting broad spectrum abx (vanco/zosyn) on 04/30/18 today pt developed diarrhea will check C.diff (3) Supratherapeutic INR Comment: coumadin held, INR to be checked daily (4) CAD (coronary artery disease) Comment: Denies history of stents but reports "cardiac arrest" during dialysis Last myoview 2015 here was low risk Suspect elevated trop in setting of demand although not clear source of increased demand EKG non ischemic, presented without any cardiac symptomatolgy Echo shows new are of wall motion abn, but pt denies CP, consider stress in future (5) IDDM (insulin dependent diabetes mellitus) Comment: Last HbA1c 2016 - added on to labs now cont basal/bolus insulin HbA1C 8.8 (6) PAD (peripheral artery disease) Current Visit: Yes Comment: - complicated by DVTs now on coumadin - reports b/l LE stenting 1 and 2 years ago at [facility] by Dr. Watson ( sp?) - INR supratherapeutic - Hold coumadin tonight and follow INR in AM (7) ESRD on peritoneal dialysis Comment: -On peritoneal dialysis - continue inpatient (8) DVT prophylaxis Comment: supratherapeutic INR
[2018-05-01] MEDS ORDERED: NS 0.9% 500 ML* 500 ML IV ONE (16:10)
[2018-05-01] MEDS ORDERED: Iodixanol* (CONTRAST) 320 MG/ML 100 ML SDV IV ONE ×2 (16:10→22:10)
[2018-05-01] MEDS: Pantoprazole TAB * 40 MG TAB PO SCH (16:47)
[2018-05-01] MEDS ORDERED: NS 0.9% 1000 ML** 1,000 ML IV SCH (17:30)
--- NOTE | 2018-05-01 20:38 | PN ---
Progress Note - Progress Note Date of Service: 05/01/18 Note: Paged - patient calmy, SOB - Glucose normal. Vitals ok. On exam: she is clammy , no CP, some SOB. No increase in work of breathing. LUng exam: crackles - Will d/c IVFs and monitor vitals closely.
[2018-05-01] MEDS: Insulin GLARGINE(*) 1 UNITS UNIT SUBCUT SCH (22:28)
[2018-05-02] MEDS ORDERED: Naloxone* 0.4 MG/ML 1 ML VIAL ONE (03:49)
--- NOTE | 2018-05-02 04:10 | PN ---
Progress Note - Progress Note Date of Service: 05/02/18 Note: Paged to evaluate patient again clammy and more altered. On arrival patient on 4L NC, awakes to tactile stimuli but diaphoretic and minimally arousable. Sats began dropping despite increasing O2, CAT call, patient bagged and continued to dip into the 70's. Dr. Tan came up to intubate patient for acute hypoxic respiratory failure. Patient transferred to ICU. Vamp Creaser updated ABG respiratory acidosis - minor vent changes down.
[2018-05-02] MEDS ORDERED: Propofol* 100 ML ONE ×5 (04:18→21:36)
[2018-05-02] MEDS ORDERED: Midazolam* 1 MG/ML 10 ML VIAL (10 MG) IV ONE (04:30)
[2018-05-02] MEDS ORDERED: Midazolam* 1 MG/ML 5 ML VIAL (5 MG) IV ONE (04:30)
[2018-05-02] MEDS ORDERED: Midazolam* 1 MG/ML 10 ML VIAL (10 MG) ONE (04:32)
--- NOTE | 2018-05-02 05:23 | ED ---
Progress - Progress Note Progress Note: I was called by hospitalist, Dr. Estrada to intubate patient for respiratory distress, Procedure note: Endotracheal intubation, Patient given etomidate and succinylcholine for RSI. Using glide scope, vocal cord was visualized, ET tube, 7.5m passed through the vocal cords under indirect vision using the Glidescope. Lip line is 22 cm, Tube position confirmed with using capnography, auscultation. Chest x-ray postintubation did show tube in good position about 3 cm above the rony. No complications. Course/Dx - Course Course Of Treatment: Ms. Wright presented with an exacerbation of her chronic neuropathic pain in her bilateral thighs as well as vomiting the last couple of days with an inability to keep anything down. She oftens has these symptoms when she has an infection or other stressor therefore a work-up was initiated with IV fluids held because of her ERSD status. She was found to have a high indeterminant troponin which normally runs in the low indeterminant range. She also had a leukocytosis and CRP elevation. The hospitalist service was contacted for evaluation and admission. - Diagnoses Provider Diagnoses: Diabetic neuropathy, Leukocytosis, unspecified - Critical Care Time Critical Care Time: 30-74 min Discharge - Sign-Out/Discharge Documenting (check all that apply): Patient Departure - Discharge Plan Condition: Stable Disposition: ADMITTED TO [facility] - Billing Disposition and Condition Condition: STABLE Disposition: Admitted to [facility] [place]
[2018-05-02] MEDS ORDERED: Etomidate* 2 MG/ML 20 ML VIAL (40 MG) ONE (05:55)
[2018-05-02] MEDS ORDERED: Succinylcholine* 20 MG/ML 10 ML VIAL ONE (05:55)
[2018-05-02 06:01] LABS: Hematocrit 29 % (35-47); Hemoglobin 9.1 g/dl (12.0-16.0); Mean Corpuscular HGB Conc 31 g/dl (31-36); Mean Corpuscular Hemoglobin 29 pg (27-31); Mean Corpuscular Volume 92 fL (80-97); Mean Platelet Volume 8.7 fL (7.4-10.4); Platelet Count 423 10^3/ul (150-450); Red Blood Count 3.17 10^6/ul (4.00-5.40); Red Cell Distribution Width 17 % (10.5-15); White Blood Count 26.3 10^3/ul (3.5-10.8)
[2018-05-02 06:04] LABS: ABS Basophils 0.3 10^3/ul (0-0.2); ABS Eosinophils 0 10^3/ul (0-0.6); ABS Lymphocytes 0.4 10^3/ul (1.0-4.8); ABS Monocytes 0.6 10^3/ul (0-0.8); ABS Nucleated RBC 0 10^3/ul; Eosinophil % 0.1 %; Lymphocyte % 1.5 %; Nucleated Red Blood Cells % 0.1
[2018-05-02 06:09] LABS: INR 4.42 (0.77-1.02)
[2018-05-02 06:18] LABS: ALT 12 U/L (7-52); AST 12 U/L (13-39); Albumin 2.8 g/dL (3.2-5.2); Albumin/Globulin Ratio 0.8 (1-3); Alkaline Phosphatase 117 U/L (34-104); Anion Gap 17 mmol/L (2-11); Blood Urea Nitrogen 52 mg/dL (6-24); C Reactive Protein 284.08 mg/L (<8.01); CO2 Carbon Dioxide 23 mmol/L (22-32); Calcium 8.7 mg/dL (8.6-10.3); Chloride 99 mmol/L (101-111); EGFR African American 6.2 (>60); EGFR Non-African American 5.1 (>60); Globulin 3.5 g/dL (2-4); Glucose 168 mg/dL (70-100); Potassium 4.1 mmol/L (3.5-5.0); Sodium 139 mmol/L (135-145); Total Protein 6.3 g/dL (6.4-8.9)
[2018-05-02 06:22] LABS: Troponin I 0.18 ng/mL (<0.04)
[2018-05-02] MEDS: Propofol* 100 ML IV ONE ×5 (06:32→21:55)
[2018-05-02] MEDS: Lactobacillus Acidophilus* 1 TAB PO SCH (07:38)
[2018-05-02] MEDS: Aspirin EC TAB* 81 MG TAB.EC PO SCH (07:38)
[2018-05-02] MEDS: Gabapentin CAP(*) 100 MG PO SCH ×2 (07:38→13:16)
[2018-05-02] MEDS: Losartan TAB* 25 MG PO SCH (07:38)
[2018-05-02] MEDS: Sertraline* 25 MG TAB PO SCH (07:38)
[2018-05-02] MEDS: Insulin LISPRO* 1 UNITS UNIT SUBCUT SCH ×3 (07:59→17:26)
[2018-05-02] MEDS: Mometasone/Formoter 200/5 MDI INH SCH ×2 (08:02→22:48)
[2018-05-02] MEDS: ZOSYN 3.375 GM Q12H per EXTENDED INFUSION IVPB SCH ×4 (08:18→20:10)
[2018-05-02] MEDS: Calcitriol CAP* 0.25 MCG PO SCH ×4 (09:45→22:48)
[2018-05-02] MEDS: Bethanechol TAB* 25 MG PO SCH ×3 (09:45→17:26)
[2018-05-02] MEDS ORDERED: Senna TAB G TUBE PRN (11:19)
[2018-05-02] MEDS ORDERED: Docusate LIQ* 100 MG/10 ML UDC G TUBE PRN (11:19)
[2018-05-02] MEDS: fentaNYL INFUSION 50 MCG/ML* 2,500 MCG/50 ML BAG IV SCH (11:35)
[2018-05-02] MEDS: Chlorhexidine MOUTHWASH 0.12%* 15 ML UDC TOPICAL SCH ×3 (13:16→20:10)
[2018-05-02 14:08] LABS: Body Fluid Source Peritonial Fluid
[2018-05-02 15:49] LABS: Body Fluid Mono 65 %; Body Fluid Other Cells 1
[2018-05-02] MEDS: Pantoprazole TAB * 40 MG TAB PO SCH (17:26)
[2018-05-02] MEDS ORDERED: Vancomycin(*) 1,000 MG in NS 0.9% 250 ML* 250 ML IVPB ONE (17:39)
--- NOTE | 2018-05-02 17:43 | HP ---
History of Present Illness - History of Present Illness Reason for Visit: INTUBATION/MECHANICAL VENTILATIION History of Present Illness: 05/02: RSI with etomidate and succinylcholine performed at the bedside for acute respiratory failure with hypoxia Review of Systems - Review of Systems Neurological: Positive: Other - UNABLE TO OBTAIN DUE TO PATIENT MENTAL STATUS - Medications/Allergies Allergies/Adverse Reactions: Allergies Allergy/AdvReac Type Severity Reaction Status Date / Time Adhesive Tape [Plastic Tape] Allergy Mild Blisters Verified 04/14/18 12:05 doxycycline Allergy Unknown Verified 04/14/18 12:05 Reaction Details erythromycin base Allergy See Comment Verified 04/14/18 12:05 heparin Allergy See Comment Verified 04/14/18 12:05 metoclopramide [From Reglan] Allergy Hives Verified 04/14/18 12:05 niacin Allergy Rash Verified 04/14/18 12:05 ropinirole [From Requip] Allergy Hives Verified 04/14/18 12:05 metronidazole [From Flagyl] AdvReac Nausea And Verified 04/21/18 13:15 Vomiting Sulfa (Sulfonamide AdvReac Vomiting Verified 04/21/18 13:15 Antibiotics) Medications: Current Medications Acetaminophen (Tylenol Tab*) 650 mg PO Q6H PRN PRN Reason: PAIN Albuterol (Ventolin 2.5 Mg/3 Ml Neb.Kaylynn*) 2.5 mg INH Q4HR PRN PRN Reason: SOB/WHEEZING Last Admin: 05/01/18 19:17 Dose: 2.5 mg Albuterol (Ventolin Hfa Inhaler*) 2 puff INH Q6H PRN PRN Reason: COUGH Aspirin (Aspirin Ec Tab*) 81 mg PO DAILY [facility] Last Admin: 05/02/18 07:38 Dose: 81 mg Bethanechol Chloride (Urecholine Tab*) 25 mg PO QID [facility] Last Admin: 05/02/18 17:26 Dose: 25 mg Calcitriol (Rocaltrol Cap*) 0.25 mcg PO TID [facility] Last Admin: 05/02/18 12:49 Dose: Not Given Chlorhexidine Gluconate (Peridex Mouth Wash 0.12%*) 15 ml TOPICAL Q4H [facility] Last Admin: 05/02/18 17:26 Dose: 15 ml Dextrose (D50w Syringe 50 Ml*) 12.5 gm IV PUSH .FOR FS < 60 - SS PRN PRN Reason: FS < 60 Docusate Sodium (Colace Liq*) 100 mg G TUBE TID PRN PRN Reason: CONSTIPATION Fondaparinux (Arixtra*) 2.5 mg SUBCUT Q24H [facility] Gabapentin (Neurontin Cap(*)) 200 mg PO TID [facility] Last Admin: 05/02/18 13:16 Dose: 200 mg Piperacillin Sod/Tazobactam (Sod 3.375 gm/ Sodium Chloride) 100 mls @ 25 mls/ hr IVPB Q12H [facility] Last Admin: 05/02/18 08:18 Dose: 25 mls/hr Propofol (Diprivan*) 100 mls @ 5.74 mls/hr IV .(Initial Rate) ONE; Protocol Stop: 05/02/18 21:36 Last Admin: 05/02/18 13:16 Dose: 22.2 mls/hr Fentanyl Citrate (Fentanyl Infusion Bag 50 Mcg/Ml 50 Ml) 2,500 mcg in 50 mls @ 0.5 mls/hr IV Q24H [facility]; Protocol Last Admin: 05/02/18 11:35 Dose: 0.5 mls/hr Insulin Glargine (Lantus(*)) 70 units SUBCUT BEDTIME [facility] Last Admin: 05/01/18 22:28 Dose: 70 units Insulin Human Lispro (Humalog*) 0 units SUBCUT AC [facility]; Protocol Last Admin: 05/02/18 17:26 Dose: 2 unit Lactobacillus Rhamnosus (Lactobacillus Acidophilus*) 1 tab PO BID [facility] Last Admin: 05/02/18 07:38 Dose: 1 tab Losartan Potassium (Cozaar Tab*) 100 mg PO DAILY [facility] Last Admin: 05/02/18 07:38 Dose: 100 mg Methadone HCl (Dolophine Tab*) 5 mg PO Q8HR PRN PRN Reason: PAIN Last Admin: 05/01/18 08:22 Dose: 5 mg Mometasone Furoate/Formoterol Fumar (Dulera 200/5 Mdi*) 2 puff INH BID [facility]; Protocol Last Admin: 05/02/18 08:02 Dose: Not Given Ondansetron HCl (Zofran Inj*) 4 mg IV Q4H PRN PRN Reason: NAUSEA/VOMITING Last Admin: 04/30/18 13:07 Dose: 4 mg Oxycodone/Acetaminophen (Percocet 5/325 Tab*) 1 tab PO Q4H PRN PRN Reason: Pain Last Admin: 04/30/18 19:33 Dose: 1 tab Pantoprazole Sodium (Protonix Tab*) 40 mg PO QPM [facility] Last Admin: 05/02/18 17:26 Dose: 40 mg Pharmacy Consult (Zosyn Per Pharmacy*) 1 note FOLLOW UP .ZOSYN PER PHARMACY [facility] Promethazine HCl (Phenergan Tab*) 25 mg PO Q8H PRN PRN Reason: NAUSEA Senna (Senokot Tab*) 1 tab G TUBE BID PRN PRN Reason: CONSTIPATION Sertraline HCl (Zoloft*) 25 mg PO DAILY [facility] Last Admin: 05/02/18 07:38 Dose: 25 mg Exam - Exam Vital Signs: Vital Signs (72 hours) 04/29/18 04/29/18 04/29/18 18:16 18:17 18:19 Temperature 97.8 F Pulse Rate 111 113 110 Respiratory 20 15 Rate Blood Pressure 175/70 175/70 (mmHg) O2 Sat by Pulse 100 100 99 Oximetry 04/29/18 04/29/18 04/29/18 18:40 19:00 19:56 Temperature 98.8 F Pulse Rate 106 108 Respiratory 9 16 Rate Blood Pressure 137/93 (mmHg) O2 Sat by Pulse 96 93 95 Oximetry 04/29/18 04/29/18 04/29/18 20:00 21:01 21:19 Temperature 98.3 F Pulse Rate 106 Respiratory 16 12 20 Rate Blood Pressure 117/33 (mmHg) O2 Sat by Pulse 93 Oximetry 04/29/18 04/29/18 04/29/18 21:24 22:40 23:06 Temperature 99.1 F Pulse Rate 108 Respiratory 16 22 18 Rate Blood Pressure 128/96 (mmHg) O2 Sat by Pulse 95 Oximetry 04/29/18 04/30/18 04/30/18 23:07 01:42 03:40 Temperature 97.2 F Pulse Rate 106 Respiratory 20 20 16 Rate Blood Pressure 132/63 (mmHg) O2 Sat by Pulse 91 Oximetry 04/30/18 04/30/18 04/30/18 04:24 05:25 05:26 Temperature Pulse Rate Respiratory 16 18 20 Rate Blood Pressure (mmHg) O2 Sat by Pulse Oximetry 04/30/18 04/30/18 04/30/18 07:18 08:00 09:23 Temperature 98.1 F Pulse Rate 102 Respiratory 12 16 Rate Blood Pressure 124/51 (mmHg) O2 Sat by Pulse 94 94 Oximetry 04/30/18 04/30/18 04/30/18 09:36 11:42 11:55 Temperature Pulse Rate 104 Respiratory 14 16 20 Rate Blood Pressure (mmHg) O2 Sat by Pulse 95 Oximetry 04/30/18 04/30/18 04/30/18 12:05 12:38 13:41 Temperature 98.4 F Pulse Rate 102 Respiratory 18 18 22 Rate Blood Pressure 125/49 (mmHg) O2 Sat by Pulse 98 Oximetry 04/30/18 04/30/18 04/30/18 15:10 15:16 15:17 Temperature Pulse Rate Respiratory 20 20 20 Rate Blood Pressure (mmHg) O2 Sat by Pulse Oximetry 04/30/18 04/30/18 04/30/18 16:02 17:29 17:59 Temperature 97.6 F Pulse Rate 104 Respiratory 20 20 16 Rate Blood Pressure 107/42 (mmHg) O2 Sat by Pulse 94 Oximetry 04/30/18 04/30/18 04/30/18 18:33 19:33 20:11 Temperature 97.3 F Pulse Rate 94 98 Respiratory 20 18 20 Rate Blood Pressure 109/82 (mmHg) O2 Sat by Pulse 99 92 Oximetry 04/30/18 04/30/18 04/30/18 21:55 22:21 23:41 Temperature 98.2 F Pulse Rate 111 Respiratory 16 16 16 Rate Blood Pressure 147/54 (mmHg) O2 Sat by Pulse 90 Oximetry 05/01/18 05/01/18 05/01/18 03:29 07:51 08:21 Temperature 97.6 F 98.3 F Pulse Rate 113 105 110 Respiratory 12 16 20 Rate Blood Pressure 103/33 152/88 (mmHg) O2 Sat by Pulse 90 92 93 Oximetry 05/01/18 05/01/18 05/01/18 08:22 09:58 10:28 Temperature Pulse Rate Respiratory 22 20 22 Rate Blood Pressure (mmHg) O2 Sat by Pulse Oximetry 05/01/18 05/01/18 05/01/18 11:28 12:20 12:39 Temperature 98.0 F Pulse Rate 141 Respiratory 20 20 20 Rate Blood Pressure 116/94 (mmHg) O2 Sat by Pulse 98 Oximetry 0305/01/18 05/01/18 14:56 15:33 15:46 Temperature 97.5 F Pulse Rate 110 79 143 Respiratory 18 20 Rate Blood Pressure 77/30 (mmHg) O2 Sat by Pulse 95 Oximetry 05/01/18 05/01/18 05/01/18 17:32 19:20 20:00 Temperature Pulse Rate 99 110 Respiratory 18 20 Rate Blood Pressure 101/37 (mmHg) O2 Sat by Pulse 98 70 Oximetry 05/01/18 05/01/18 05/01/18 20:19 20:27 22:28 Temperature 97.2 F Pulse Rate Respiratory 24 20 Rate Blood Pressure 103/56 (mmHg) O2 Sat by Pulse Oximetry 05/01/18 05/01/18 05/02/18 23:39 23:40 00:31 Temperature 97.2 F Pulse Rate 101 48 Respiratory 20 88 18 Rate Blood Pressure 101/51 (mmHg) O2 Sat by Pulse 70 Oximetry 05/02/18 05/02/18 05/02/18 03:24 04:14 04:16 Temperature 97.1 F Pulse Rate 93 112 114 Respiratory Rate Blood Pressure 105/40 191/176 (mmHg) O2 Sat by Pulse 89 91 100 Oximetry 05/02/18 05/02/18 05/02/18 04:17 04:30 04:40 Temperature Pulse Rate 113 100 95 Respiratory Rate Blood Pressure 152/73 108/49 (mmHg) O2 Sat by Pulse 100 100 100 Oximetry 05/02/18 05/02/18 05/02/18 04:45 04:52 05:01 Temperature Pulse Rate 94 91 91 Respiratory Rate Blood Pressure 92/50 136/44 (mmHg) O2 Sat by Pulse 100 100 100 Oximetry 05/02/18 05/02/18 05/02/18 05:16 05:27 05:30 Temperature 96 F Pulse Rate 88 90 90 Respiratory 18 Rate Blood Pressure 85/42 99/63 105/68 (mmHg) O2 Sat by Pulse 100 100 100 Oximetry 05/02/18 05/02/18 05/02/18 06:01 06:16 06:25 Temperature Pulse Rate 88 80 80 Respiratory Rate Blood Pressure 111/81 87/48 90/44 (mmHg) O2 Sat by Pulse 99 90 89 Oximetry 05/02/18 05/02/18 05/02/18 06:31 06:33 06:45 Temperature Pulse Rate 80 80 80 Respiratory Rate Blood Pressure 85/57 97/57 98/71 (mmHg) O2 Sat by Pulse 100 99 100 Oximetry 05/02/18 05/02/18 05/02/18 07:00 07:01 07:15 Temperature Pulse Rate 81 82 81 Respiratory Rate Blood Pressure 116/63 123/56 (mmHg) O2 Sat by Pulse 100 100 100 Oximetry 05/02/18 05/02/18 05/02/18 07:30 08:00 08:15 Temperature Pulse Rate 83 80 81 Respiratory 17 Rate Blood Pressure 90/65 127/64 113/75 (mmHg) O2 Sat by Pulse 98 97 97 Oximetry 05/02/18 05/02/18 05/02/18 08:31 08:44 08:45 Temperature 95.1 F Pulse Rate 82 82 Respiratory Rate Blood Pressure 120/67 144/73 (mmHg) O2 Sat by Pulse 98 98 Oximetry 05/02/18 05/02/18 05/02/18 09:00 09:46 10:00 Temperature Pulse Rate 82 84 86 Respiratory 17 18 Rate Blood Pressure 117/82 107/62 (mmHg) O2 Sat by Pulse 100 100 100 Oximetry 05/02/18 05/02/18 05/02/18 10:01 10:26 10:31 Temperature Pulse Rate 86 83 84 Respiratory Rate Blood Pressure 113/55 126/63 123/74 (mmHg) O2 Sat by Pulse 100 98 98 Oximetry 05/02/18 05/02/18 05/02/18 10:46 11:00 11:01 Temperature Pulse Rate 85 84 84 Respiratory 17 Rate Blood Pressure 116/75 90/78 (mmHg) O2 Sat by Pulse 98 99 99 Oximetry 05/02/18 05/02/18 05/02/18 11:16 11:31 11:35 Temperature Pulse Rate 84 85 Respiratory 17 Rate Blood Pressure 98/88 91/72 (mmHg) O2 Sat by Pulse 100 97 Oximetry 05/02/18 05/02/18 05/02/18 11:45 11:47 12:00 Temperature 96 F Pulse Rate 84 83 Respiratory 18 Rate Blood Pressure 78/65 92/58 (mmHg) O2 Sat by Pulse 100 100 Oximetry 05/02/18 05/02/18 05/02/18 12:01 12:16 12:31 Temperature Pulse Rate 84 85 90 Respiratory Rate Blood Pressure 105/54 97/58 (mmHg) O2 Sat by Pulse 100 100 97 Oximetry 05/02/18 05/02/18 05/02/18 12:46 13:00 13:01 Temperature Pulse Rate 90 88 Respiratory 17 Rate Blood Pressure 128/79 133/49 (mmHg) O2 Sat by Pulse 98 97 Oximetry 05/02/18 05/02/18 05/02/18 13:11 13:16 13:31 Temperature Pulse Rate 87 80 Respiratory Rate Blood Pressure 126/70 69/39 (mmHg) O2 Sat by Pulse 100 96 99 Oximetry 05/02/18 05/02/18 05/02/18 13:33 13:45 14:00 Temperature Pulse Rate 79 81 Respiratory 20 Rate Blood Pressure 99/59 101/60 (mmHg) O2 Sat by Pulse 99 96 Oximetry 05/02/18 05/02/18 05/02/18 14:01 14:16 14:30 Temperature Pulse Rate 80 81 78 Respiratory Rate Blood Pressure 125/48 115/67 109/45 (mmHg) O2 Sat by Pulse 100 98 97 Oximetry 05/02/18 05/02/18 05/02/18 14:45 14:50 15:00 Temperature Pulse Rate 77 77 75 Respiratory 14 Rate Blood Pressure 101/59 109/70 97/60 (mmHg) O2 Sat by Pulse 97 97 97 Oximetry 05/02/18 05/02/18 05/02/18 15:01 16:00 17:00 Temperature Pulse Rate 75 73 Respiratory 15 16 Rate Blood Pressure 111/65 (mmHg) O2 Sat by Pulse 98 98 Oximetry 05/02/18 17:01 Temperature Pulse Rate 74 Respiratory Rate Blood Pressure (mmHg) O2 Sat by Pulse 98 Oximetry General: Other - on sedation/analgesia HEENT: Atraumatic, PERRLA, Mucous membr. moist/pink Lungs: Clear to auscultation Cardiovascular: Normal S1, Normal S2 Abdomen: Soft, No tenderness, No masses Extremities: Other - R toe amputation Neurological: Other - unable to access optimally due to sedation/analgesia Assessment/Plan - Assessment/Plan Assessment: TTE 04/29/18 Conclusions Moderate concentric left ventricular hypertrophy is observed. Global left ventricular wall motion and contractility are within normal limits. Base of the lateral wall relatively hypokinetic on short axis and 4 chamber view, small focal area. The estimated ejection fraction is 50-55%. Abnormal left ventricular diastolic function is observed. The right ventricular global systolic function is low normal. There is aortic valve sclerosis with trace aortic regurgitation. There is a trace of mitral regurgitation. There is moderate tricuspid regurgitation, eccentric jet directed toward the septum. There is evidence of mild to moderate pulmonary hypertension estimated at 42 mmHg. Compared with prior echo of 06/14/17, EF is stable, focal area of hypokinesis newly described, AI is new, MR is stable, TR has increased from trace, elevated PA pressure newly documented. CTA [facility] Patient Name:JULI PERRY MR:[id number] : 1980 throughout its entire course with near-complete occlusion distally in the adductor hiatus. Severely atherosclerotic left popliteal artery in the mid aspect. Additional left popliteal artery severe stenosis distally prior to the trifurcation. Left infrapopliteal arteries: Severely atherosclerotic left anterior tibial, peroneal, and posterior tibia arteries with dissipated posterior tibial artery in the mid navarro. Continued anterior tibial and peroneal flow in the foot. Lower thorax: There is mild atherosclerotic calcification of the coronary arteries. Liver: No mass. Gallbladder and bile ducts: Normal. No calcified stones. No ductal dilation. Pancreas: Normal. No mass. No ductal dilation. Spleen: Normal. No splenomegaly. Adrenals: Normal. No mass. Kidneys and ureters: Normal. No mass. Stomach and bowel: Normal. No obstruction. No mucosal thickening. Appendix: No evidence of appendicitis. Bladder: The bladder is decompressed but otherwise normal. Reproductive: Uterus and ovaries are normal. Intraperitoneal space: Small volume ascites. Lymph nodes: No lymphadenopathy. Bones/joints: No acute fracture. No dislocation. Soft tissues: Normal. No hernias. IMPRESSION: 1. Moderate severe right common femoral artery stenosis. 2. Severe bilateral popliteal artery stenosis, with a single left and 2 right areas of stenosis. 3. Near-complete occlusion distal left superficial femoral artery stent. 4. Findings secondary to peritoneal dialysis. 5. Severely stenotic right renal artery. To contact [facility] with a general question: [facility] - [phone] For direct physician to physician contact: Physician Hotline - [phone] [facility] [place] ([facility] Facility ID #[id number]) <Electronically signed by Donna Villalobos MD in OV> 05/02/187 Dictated By: Donna Villalobos MD Dictated Date/Time: 05/02/187 Transcribed Date/Time: Copy to: CC:Yordy Benavidez MD; Elena Estrada DO; Tash Daigle MD; Aishwarya Solis MD Imaging - [facility] - [place] [facility] Imaging - [facility] [address] [place] [id number] [address] [address] ph ([phone]) ph ([phone]) ph ([phone]) This report is only to be considered final once signed by the Provider(s) as displayed in the "<Electronically Signed by >" field (s). Absence of a signature indicates the report is in a draft status and still needs to be finalized. In the event this document was created by someone other than the signing Provider, the individual initiating the document will be listed in the "Entered by:" or "Dictated by:" hernandez. 2 of 2 37 yo F with multiple complicated comorbidities including ESRD on PD, CAD s/p stents, PVD s/p stents transferred to the ICU after requiring emergent intubation 05/01 Plan: # Acute encephalopathy # Acute hypoxemic respiratory failure # acute ventilator dependance # Sepsis # leukocytosis 26 with neutrophilic predominance # Stable anemia # Hypercoagulable state INR 5.36-->4.42 # ESRD on PD # Troponin leak- improving levels # Sacral ulcer # chronic pain on methadone # HTN # New hypokinesis of LV (lateral) with EF 50-55%. # diastolic dysfunction # RV dysfunction # AV sclerosis # moderate tricuspid regurgitation # PH (42 mmHg on TTE) # S1 impigment # PVD s/p stents - CTA: Moderate severe right common femoral artery stenosis. Severe bilateral popliteal artery stenosis, with a single left and 2 right areas of stenosis. Near-complete occlusion distal left superficial femoral artery stent. 2 of 2 - Bcx 04/29 NTD - if leukocytosis progress or worsening clinical status, will whittaker Cx - S/p peritoneal fluid analysis. Grossly noninfectious. Will await final cultures - current vent setting Vt 400, PEEP 10 - ABG to eval vent/oxygenation with new vent changes - Hemodynamically stable - hold methadone for now. Fentanyl gtt - sedation with propofol to maintain RASS 0- -1 - Elevated INR likely due to warfarin. Hold warfarin for now. Will need to start systemic A/C once INR <3 - discontinue bethanochol while burns is in place - will give 1 x dose of vancomycin. Continue with zosyn. Will have pharmacy adjust according to PD - plan to image for OM tomorrow- MRI vs CT w/o contrast given kidney disease. Although suspect MRI is better modality without contrast but patient has multiple stents. Will discuss with radiology in AM to discuss compatibility of stents - continue with antihypertensives - doppler BL LE for DP now - May need intervention for the occlusion in the LSFA - daily SBT/SWT CRITICAL CARE NEEDS: acute ventilator dependence, AMS Critical care time 80 minutes Full code Prognosis guarded
[2018-05-02] MEDS: Fondaparinux* 2.5 MG/0.5 ML SYRINGE SUBCUT SCH (17:52)
[2018-05-02] MEDS ORDERED: Vancomycin(*) 0 MG in NS 0.9% 250 ML* 250 ML IVPB SCH (18:00)
--- NOTE | 2018-05-02 18:23 | OP ---
Operative Report - Blank - Operative Report Date of Operation: 05/02/18 Note: ARTERIAL LINE (A-Line) PLACEMENT WITH ULTRASOUND GUIDANCE Indication: Hemodynamic monitoring I performed the entire procedure A time-out was completed verifying correct patient, procedure, site, positioning , and special equipment if applicable. The patients left axillary artery was located via ultrasound. The area prepped and draped in sterile fashion. Patient was running on fentanyl and propofol gtt, therefore, no local anesthetic was used. An Arrow arterial line was introduced into the axillary artery. The catheter was threaded over the guide wire and the needle was removed with appropriate pulsatile blood return. The catheter was then sutured in place to the skin and a sterile dressing applied. Perfusion to the extremity distal to the point of catheter insertion was checked and found to be adequate. Estimated Blood Loss: <1 cc The patient tolerated the procedure well and there were no complications.
[2018-05-02] MEDS ORDERED: Vancomycin per Pharmacy* NOTE FOLLOW UP PRN (18:32)
[2018-05-02] MEDS ORDERED: Midazolam IV for DRIP 100 MG in NS 0.9% IV SCH (19:15)
[2018-05-02] MEDS: Insulin GLARGINE(*) 1 UNITS UNIT SUBCUT SCH (21:54)
--- NOTE | 2018-05-02 22:33 | CONS ---
CONSULTATION REPORT: DATE OF CONSULT: 05/02/18 PHYSICIAN REQUESTING CONSULTATION: Dr. Tash Daigle. CONSULTING SERVICE: Infectious Disease. ATTENDING PHYSICIAN: Dr. Yordy Benavidez * (dictated by Elena Rivas NP). REASON FOR CONSULT: Elevated CRP and leg pain in a patient on peritoneal dialysis. Please note that this entire history is obtained from the medical records as the patient is currently sedated and intubated. IMPRESSION: 1. Leucocytosis. Unclear cause at this time. The differential includes an undrained abscess, C. diff and peritonitis. After reviewing the lumbar spine CT , there are no overt signs of abscess. C. diff testing is pending at this time. Her peritoneal fluid shows 3 white blood cell counts, so I have low suspicion for peritonitis at this time. Could consider a CT myelogram, but the patient had refused this yesterday. Continue to follow her leukocytosis and CRP and continue Zosyn for now. 2. Acute on chronic hypoxic respiratory failure. The patient is currently intubated and uses 5 L via nasal cannula at baseline. 3. Diabetes mellitus. 4. Endstage renal disease secondary to diabetes mellitus on peritoneal dialysis. 5. Coronary artery disease. 6. Peripheral artery disease. RECOMMENDATIONS: Continue Zosyn, continue to follow CBC and CRP. HISTORY OF PRESENT ILLNESS: Ms. Wright is a 37-year-old female with past medical history significant for endstage renal disease on peritoneal dialysis, COPD with chronic hypoxic respiratory failure on 5 L of oxygen via nasal cannula , diabetes mellitus, coronary artery disease, peripheral artery disease, gastroparesis, hypertension, hyperlipidemia, anxiety, and depression who presented to the emergency room with complaints of leg pain, abdominal pain, nausea, and vomiting on 04/29/18. The patient's main complaint was bilateral leg pain and she was reporting that this pain was new to her. She was reporting pain in her thighs that was circumferential around her upper legs that was constant, stabbing. She also reported pain when moving her legs and they were painful to the touch. She was having difficulty ambulating due to the pain. She had tried heat and her home methadone and gabapentin, which were also not effective in relieving the pain. She was reporting nausea and vomiting. Due to her symptoms, she presented to the emergency room for further evaluation. While in the emergency room, she was noted to have leukocytosis that was elevated above her baseline, supratherapeutic INR, elevated CRP, elevated troponin above her baseline elevation. She states that the only thing that takes away her pain is morphine. Due to her intractable pain, she was referred to the hospitalist service for admission. While in the hospital, she continued to have leukocytosis with a white blood cell count in the 20s, noted to be anemic, but appears to be at her baseline anemia. She continues to have a supratherapeutic INR. Her INR today is 4.42. She has an elevated BUN and creatinine, but she does have known endstage renal failure and is on peritoneal dialysis. Her troponin has trended down during her stay. Her CRP has continued to be elevated with last being 284.08 on . Her lactic acid was 0.9 initially on admission and 2.6 on the morning of 10/13. Chest x-ray showing bilateral airspace consolidation without volume loss , concerning for pneumonia. She is being treated for pneumonia on broad- spectrum antibiotics. During her hospitalization, she was denying abdominal pain and had improvement in diarrhea after one tablet of Imodium and probiotics. She reported no problems with her peritoneal dialysis. She is continuing to complain of leg pain. During her stay, she has had a transthoracic echocardiogram showing moderate concentric left ventricular hypertrophy, lateral wall hypokinetic on the short axis. She had a lumbar spine CT showing no fracture, no evidence of endplate irregularities to suggest a dissection. No paraspinal soft tissue swelling. Dependent changes noted in subcutaneous fat. She had a venous Doppler study, bilateral lower extremities showing no DVT. She had an aorta with runoff CTA on 05/01/18 showing moderate- to-severe right common femoral artery stenosis, severe bilateral popliteal artery stenosis with a single left and two right areas of stenosis, near complete occlusion, distal left superficial femoral artery stent and a severely stenotic right renal artery. She was refusing a CT myelogram and it was felt that neurologically, she was not significantly impaired from her baseline. Her pain was suspected to be secondary to vascular problems. Overnight, she developed increased workup breathing and was noted to have crackles. She was clammy. Her condition continued to deteriorate and she was noted to be hypoxic with oxygen saturations in the 70s, and she was intubated for acute on chronic hypoxic respiratory failure and transferred to the intensive care unit where she remains intubated. She had a chest x-ray on 05/02/18 showing mild linear atelectasis at the right upper lung zone. The lungs were otherwise grossly clear. This was completed after she was intubated. PAST MEDICAL HISTORY: 1. Endstage renal disease, on peritoneal dialysis. 2. COPD with chronic hypoxic respiratory failure on supplemental oxygen of 5 L via nasal cannula. 3. Diabetes mellitus, type 2. 4. Peripheral artery disease. 5. GERD. 6. Coronary artery disease, status post cardiac stenting. 7. Gastroparesis. 8. Anxiety and depression. 9. Hypertension. 10. Hyperlipidemia. PAST SURGICAL HISTORY: Status post a right metatarsal amputation. MEDICATIONS: Home medications: 1. Bethanechol 25 mg by mouth 4 times daily. 2. Aspirin 81 mg by mouth daily. 3. Albuterol HFA inhaler 2 puff inhalation every 6 hours as needed for shortness of breath or wheeze. 4. Albuterol 2.5 mg/3 mL nebulizer, 2.5 mg inhalation every 4 hours as needed for shortness of breath or wheeze. 5. Acetaminophen 650 mg by mouth every 6 hours as needed for fever or pain. 6. Omeprazole 40 mg by mouth every evening. 7. Methadone 5 mg by mouth every 8 hours as needed for pain. 8. Losartan 100 mg by mouth daily. 9. Floranex 2 chewables by mouth daily. 10. Lantus insulin 70 units subcutaneously at bedtime. 11. NovoLog insulin 0 to10 units subcutaneously before meals as needed. 12. Neurontin 20 mg by mouth 3 times daily. 13. Calcitriol 0.25 mcg by mouth 3 times daily. 14. Symbicort 160/4.5 2 puffs inhalation twice daily. 15. Warfarin 6 mg by mouth daily. 16. Sertraline 25 mg by mouth daily. 17. Promethazine 25 mg by mouth every 8 hours as needed for nausea. Hospital medications include: 1. Acetaminophen 650 mg by mouth every 6 hours as needed for pain. 2. Albuterol nebulizer 2.5 mg/3 mL 2 mg inhalation every 4 hours as needed for shortness of breath or wheeze. 3. Albuterol HFA inhaler 2 puffs inhalation every 6 hours as needed for shortness of breath or wheeze. 4. Aspirin 81 mg by mouth daily. 5. Bethanechol 25 mg by mouth 4 times daily. 6. Calcitriol 0.25 mcg by mouth 3 times daily. 7. Chlorhexidine mouthwash 15 mL topical every 4 hours. 8. Dextrose 12.5 g IV push for glucose less than 60. 9. Colace 100 mg via G-tube 3 times daily as needed for constipation. 10. Arixtra 2.5 mg subcutaneously every 24 hours. 11. Gabapentin 200 mg by mouth 3 times daily. 12. Lantus insulin 70 units subcutaneous at bedtime. 13. Humalog insulin subcutaneously before meals, sliding scale. 14. Lactobacillus 1 tablet by mouth twice daily. 15. Losartan 100 mg by mouth daily. 16. Methadone 5 mg by mouth every 8 hours as needed for pain. 17. Dulera 200/5 MDI 2 puffs inhalation twice daily. 18. Zofran 4 mg IV every 4 hours as needed for nausea. 19. Percocet 5/325 one tablet by mouth every 4 hours as needed for pain. 20. Protonix 40 mg by mouth every evening. 21. Zosyn 3.375 g IV every 12 hours. 22. Promethazine 25 mg by mouth every 8 hours as needed for nausea. 23. Propofol drip 4.75 mL an hour IV. 24. Senna 1 tablet via G-tube twice daily as needed for constipation. 25. Sertraline 25 mg by mouth daily. ALLERGIES: 1. ADHESIVE TAPE; DOXYCYCLINE - unknown reaction. 2. ERYTHROMYCIN. 3. HEPARIN. 4. REGLAN. 5. NIACIN. 6. REQUIP. 7. FLAGYL; nausea or vomiting. 8. SULFA, vomiting. FAMILY HISTORY: Father with a history of [place] at age 49. Mother, father and siblings with diabetes. Grandfather with lung cancer. Grandmother with ovarian cancer. SOCIAL HISTORY: She is a half a pack a day smoker. She denies alcohol or recreational drug use previously. Disabled, lives with her boyfriend. REVIEW OF SYSTEMS: Unable to perform as the patient is sedated and intubated. PHYSICAL EXAM: Vital Signs: Temperature 96, blood pressure 133/49, heart rate 88, respiratory rate 19, O2 sat 97% on the ventilator and tidal CO2 of 36. General Appearance: The patient is unresponsive and sedated. She is chronically ill appearing. HEENT: Normocephalic, atraumatic. Respiratory: The lungs are clear to auscultation bilateral anteriorly. Cardiovascular: Regular rate and rhythm. Abdomen: Soft, does not appear to be tender with palpation, large. There are bowel sounds present x4. Extremities: No lower extremity edema. Musculoskeletal: There is no clubbing or cyanosis noted. The patient is unable to determine strength as the patient is sedated. Skin: She is noted to have some purplish discoloration to bilateral lower extremities. Per nursing staff, she is noted to have an open area to her buttocks, but this was not visualized. DIAGNOSTIC STUDIES/LABORATORY DATA: White blood cell count 26.3, hemoglobin 9.1 , hematocrit 29, platelet count 423. Creatinine 8.69. Lactic acid 2.6. CRP 284.08. CK on 05/01/18 is 27. She had blood cultures with no growth on day 2. Peritoneal fluid with 3 white blood cell count, 15 neutrophils, 20 lymphocytes, 65 monocytes. It was colorless and clear. She had a urinalysis showing leukocyte esterase 2+, wbc's 3+, rbc's 3+, squamous epithelial cells present and bacteria absent. Please see impression and recommendations outlined above. Thank you for asking us to see Ms. Wright in consultation. TIME SPENT: Time spent for this consultation was approximately 45 minutes. This includes physical examination and reviewing the patient's medical record. Reviewed by ELENA RIVAS, GOMEZ-Brayden 05/04/18 1245 Seen, examined and discussed with Héctor Rivas, I agree with her full note above. Impression: 1. Leukoctosis with neutrophilic predominance; differential diagnosis in the setting of negative blood and peritoneal fluid cultures includes undrained abscess or Cdificile infection. She has diarrhea, the Cdif test is pending. She had a CT of the abdomen and pelvis on the aorta study that did not show abscess. There was initial concern for spine infection, a CT was unrevealing and she refused a CT myleogram but has not had weakness in the lower extremities either. 2. ESRD on peritoneal dialysis. 3. Type 2 DM Recommendations: 1. assuming Cdif test is negative we will follow her cell counts and condition here while in the ICU. [id number]/CPS #: [id number] VIRI
[2018-05-03] MEDS: Chlorhexidine MOUTHWASH 0.12%* 15 ML UDC TOPICAL SCH ×7 (00:42→23:36)
[2018-05-03] MEDS: Gabapentin CAP(*) 100 MG PO SCH ×4 (00:42→20:17)
[2018-05-03 07:22] LABS: INR 4.85 (0.77-1.02)
[2018-05-03] MEDS: fentaNYL INFUSION 50 MCG/ML* 2,500 MCG/50 ML BAG IV SCH ×2 (07:30→14:00)
[2018-05-03] MEDS: ZOSYN 3.375 GM Q12H per EXTENDED INFUSION IVPB SCH ×4 (08:30→20:03)
[2018-05-03] MEDS: Mometasone/Formoter 200/5 MDI INH SCH ×2 (09:09→20:25)
[2018-05-03] MEDS: Insulin LISPRO* 1 UNITS UNIT SUBCUT SCH ×3 (09:12→17:45)
[2018-05-03] MEDS: Aspirin EC TAB* 81 MG TAB.EC PO SCH (10:11)
[2018-05-03] MEDS: Calcitriol CAP* 0.25 MCG PO SCH ×2 (10:11→14:00)
[2018-05-03] MEDS: oxyCODONE ORAL.SOLN* 5 MG/5 ML UDC PO SCH ×3 (10:11→21:13)
[2018-05-03] MEDS: Sertraline* 25 MG TAB PO SCH (10:11)
[2018-05-03] MEDS: Losartan TAB* 25 MG PO SCH (10:11)
[2018-05-03] MEDS ORDERED: Vancomycin Random Level* NOTE FOLLOW UP PRN (12:00)
[2018-05-03 12:04] LABS: BUN/Creatinine Ratio 5.1 (8-20); Calcium 7.8 mg/dL (8.6-10.3); EGFR African American 6.8 (>60); EGFR Non-African American 5.6 (>60); Magnesium 1.7 mg/dL (1.9-2.7); Phosphorus 7.6 mg/dL (2.5-5.0)
[2018-05-03] MEDS: Fondaparinux* 2.5 MG/0.5 ML SYRINGE SUBCUT SCH (14:00)
[2018-05-03] MEDS ORDERED: fentaNYL* 50 MCG/ML 2 ML VIAL (100 MCG VIAL) ONE (15:31)
[2018-05-03] MEDS ORDERED: Dexmedetomidine* 400 MCG in NS 0.9% 100 ML* 96 ML IVPB SCH (17:00)
--- NOTE | 2018-05-03 17:01 | PN ---
Date of Service: 05/03/18 Critical Care Services: 37 F with multiple comorbidities including ESRD on HD, HF, PH, PVD, ICM 05/02: RSI with etomidate and succinylcholine performed at the bedside for acute respiratory failure with hypoxia 05/03: did not tolerate well with swt. No fevers overnight. Doppler + pulses peripherally Vital Signs: Temp Pulse Resp BP SpO2 FiO2 99.7 F 104 19 95/60 90 60 05/03/18 15:00 05/03/18 15:00 05/03/18 16:26 05/03/18 00:00 05/03/18 15:00 05/03 08:00 Physical Exam: General: on sedation/analgesia. NAD HEENT: Atraumatic, PERRLA, Mucous membr. moist/pink Lungs: Clear to auscultation Cardiovascular: Normal S1, Normal S2 Abdomen: Soft, No tenderness, No masses Extremities: R toe amputation, chronic skin changes Neurological: unable to access optimally due to sedation/analgesia; nonfocal Fluid Balance (Past 24 Hours): I= O= Net Intake & Output 05/01/18 05/02/18 05/03/18 05/04/18 06:59 06:59 06:59 07:59 Intake Total 1183 872 9009 37 Output Total 0 5 Balance 7288 815 3822 32 Weight 206 lb 2.369 oz Intake: IV Fluids 10 1111 NS (0.9%) 741 Vancomycin 250 Zosyn 120 IVPB 255 100 Medicated IV 515 CC - Propofol/Diprivan 515 IV Narcotic Infusion 84 37 Fentanyl 84 37 Oral 948 0 0 Tube Feeding 179 Tube Feeding Flush Amount 40 NG Tube Irrigate Amount 50 Output: Urine 0 Burns 5 Other: Date of Last Bowel 05/02/18 Movement # Bowel Movements 1 7 2 Estimated Stool Amount Medium Small Medium ADLs: Meal Record Start: 04/29/18 21: 19 Freq: DAILY@0900,1400,1800 Status: Complete Protocol: Created 04/29/18 21:19 System (Rec: 04/29/18 21:19 System [id number]) Document 04/30/18 09:00 [id number] (Rec: 04/30/18 13:52 [id number] TELE-C10) Document 04/30/18 14:00 [id number] (Rec: 04/30/18 15:02 [id number] TELE-C10) Document 04/30/18 18:00 [id number] (Rec: 04/30/18 19:27 [id number] TELE-C10) Document 05/01/18 09:00 [id number] (Rec: 05/01/18 14:44 [id number] TELE-C10) Document 05/01/18 14:00 [id number] (Rec: 05/01/18 14:44 [id number] TELE-C10) Document 05/01/18 18:00 [id number] (Rec: 05/01/18 19:43 [id number] TELE-C10) ADLs: Meal Record Start: 05/02/18 07: 16 Freq: 09,13,18 Status: Active Protocol: Created 05/02/18 07:16 [id number] (Rec: 05/02/18 07:16 [id number] ICU-C12) Document 05/02/18 09:00 [id number] (Rec: 05/02/18 09:36 [id number] ICU-C07) Document 05/02/18 13:00 [id number] (Rec: 05/02/18 13:05 [id number] ICU-C07) Document 05/02/18 18:00 [id number] (Rec: 05/02/18 18:11 [id number] ICU-C10) Intake and Output Start: 04/29/18 18: 19 Freq: Status: Complete Protocol: Created 04/29/18 18:19 System (Rec: 04/29/18 18:19 System [id number]) Intake and Output Start: 04/29/18 21: 19 Freq: DAILY@0600,1400,2200 Status: Complete Protocol: Created 04/29/18 21:19 System (Rec: 04/29/18 21:19 System TELE-M15) Document 04/30/18 06:00 [id number] (Rec: 04/30/18 06:47 [id number] TELE-C03) Document 04/30/18 14:00 [id number] (Rec: 04/30/18 15:02 [id number] TELE-C10) Document 04/30/18 22:00 [id number] (Rec: 04/30/18 22:07 [id number] TELE-C10) Document 05/01/18 05:58 [id number] (Rec: 05/01/18 05:59 [id number] HOSP-C11) Document 05/01/18 14:00 [id number] (Rec: 05/01/18 14:46 [id number] TELE-C10) Document 05/01/18 22:00 [id number] (Rec: 05/01/18 22:28 [id number] TELE-C09) Intake and Output Start: 05/02/18 07: 16 Freq: Q4HR Status: Active Protocol: Created 05/02/18 07:16 [id number] (Rec: 05/02/18 07:16 [id number] ICU-C12) Document 05/02/18 08:00 [id number] (Rec: 05/02/18 08:21 [id number] ICU-M35) Document 05/02/18 11:44 [id number] (Rec: 05/02/18 11:44 [id number] ICU-C07) Document 05/02/18 16:00 [id number] (Rec: 05/02/18 18:06 [id number] ICU-C10) Document 05/03/18 00:00 [id number] (Rec: 05/03/18 00:48 [id number] [facility] Document 05/03/18 06:07 [id number] (Rec: 05/03/18 06:07 [id number] [facility] ) Document 05/03/18 08:00 [id number] (Rec: 05/03/18 12:31 [id number] ICU-C16) Labs: Laboratory Results - last 24 hr 05/02/18 05/02/18 05/02/18 17:11 17:12 21:45 INR (Anticoag Therapy) Patient Temperature ABG pH ABG pH (Temp Correct) ABG pCO2 ABG pCO2 (Temp Corrct ABG pO2 ABG pO2 (Temp Correct ABG HCO3 ABG O2 Saturation ABG Base Excess Respiration Rate O2 Delivery Device Ventilator Type Vent Mode FiO2 Inspiratory Time PEEP Pressure Support Pressure Control EPAP IPAP BiPAP Sodium Potassium Chloride Carbon Dioxide Anion Gap BUN Creatinine Est GFR ( Amer) Est GFR (Non-Af Amer) BUN/Creatinine Ratio Glucose POC Glucose (mg/dL) 139 H 140 H 58 L Calcium Phosphorus Magnesium Random Vancomycin 05/02/18 05/02/18 05/03/18 22:30 23:03 03:19 INR (Anticoag Therapy) Patient Temperature ABG pH 7.29 L ABG pH (Temp Correct) ABG pCO2 53 H ABG pCO2 (Temp Corrct ABG pO2 72 L ABG pO2 (Temp Correct ABG HCO3 23.3 ABG O2 Saturation 94.4 ABG Base Excess -1.9 Respiration Rate O2 Delivery Device Ventilator Type Vent Mode FiO2 Inspiratory Time PEEP Pressure Support Pressure Control EPAP IPAP BiPAP Sodium Potassium Chloride Carbon Dioxide Anion Gap BUN Creatinine Est GFR ( Amer) Est GFR (Non-Af Amer) BUN/Creatinine Ratio Glucose POC Glucose (mg/dL) 85 132 H Calcium Phosphorus Magnesium Random Vancomycin 05/03/18 05/03/18 05/03/18 06:56 06:56 08:27 INR (Anticoag Therapy) 4.85 H Patient Temperature 36.2 ABG pH 7.31 L ABG pH (Temp Correct) Not Reportable ABG pCO2 51 H ABG pCO2 (Temp Corrct Not Reportable ABG pO2 67 L ABG pO2 (Temp Correct Not Reportable ABG HCO3 23.9 ABG O2 Saturation 94.5 ABG Base Excess -1.2 Respiration Rate 16 O2 Delivery Device ventillator Ventilator Type 400 Vent Mode Simv FiO2 60 Inspiratory Time Not Reportable PEEP 8 Pressure Support Not Reportable Pressure Control Not Reportable EPAP Not Reportable IPAP Not Reportable BiPAP Not Reportable Sodium Potassium Chloride Carbon Dioxide Anion Gap BUN Creatinine Est GFR ( Amer) Est GFR (Non-Af Amer) BUN/Creatinine Ratio Glucose POC Glucose (mg/dL) 153 H Calcium Phosphorus Magnesium Random Vancomycin 05/03/18 05/03/18 05/03/18 10:53 14:09 14:38 INR (Anticoag Therapy) Patient Temperature ABG pH 7.33 L ABG pH (Temp Correct) ABG pCO2 46 H ABG pCO2 (Temp Corrct ABG pO2 74 L ABG pO2 (Temp Correct ABG HCO3 23.4 ABG O2 Saturation 96.5 ABG Base Excess -1.9 Respiration Rate O2 Delivery Device Ventilator Type Vent Mode FiO2 Inspiratory Time PEEP Pressure Support Pressure Control EPAP IPAP BiPAP Sodium 144 Potassium 3.0 L Chloride 102 Carbon Dioxide 26 Anion Gap 16 H BUN 41 H Creatinine 8.05 H Est GFR ( Amer) 6.8 Est GFR (Non-Af Amer) 5.6 BUN/Creatinine Ratio 5.1 L Glucose 153 H POC Glucose (mg/dL) Calcium 7.8 L Phosphorus 7.6 H Magnesium 1.7 L Random Vancomycin 22.1 Studies: TTE 04/29/18 Conclusions Moderate concentric left ventricular hypertrophy is observed. Global left ventricular wall motion and contractility are within normal limits. Base of the lateral wall relatively hypokinetic on short axis and 4 chamber view, small focal area. The estimated ejection fraction is 50-55%. Abnormal left ventricular diastolic function is observed. The right ventricular global systolic function is low normal. There is aortic valve sclerosis with trace aortic regurgitation. There is a trace of mitral regurgitation. There is moderate tricuspid regurgitation, eccentric jet directed toward the septum. There is evidence of mild to moderate pulmonary hypertension estimated at 42 mmHg. Compared with prior echo of 06/14/17, EF is stable, focal area of hypokinesis newly described, AI is new, MR is stable, TR has increased from trace, elevated PA pressure newly documented. CTA [facility] Patient Name:JULI PERRY MR:[id number] : 1980 throughout its entire course with near-complete occlusion distally in the adductor hiatus. Severely atherosclerotic left popliteal artery in the mid aspect. Additional left popliteal artery severe stenosis distally prior to the trifurcation. Left infrapopliteal arteries: Severely atherosclerotic left anterior tibial, peroneal, and posterior tibia arteries with dissipated posterior tibial artery in the mid navarro. Continued anterior tibial and peroneal flow in the foot. Lower thorax: There is mild atherosclerotic calcification of the coronary arteries. Liver: No mass. Gallbladder and bile ducts: Normal. No calcified stones. No ductal dilation. Pancreas: Normal. No mass. No ductal dilation. Spleen: Normal. No splenomegaly. Adrenals: Normal. No mass. Kidneys and ureters: Normal. No mass. Stomach and bowel: Normal. No obstruction. No mucosal thickening. Appendix: No evidence of appendicitis. Bladder: The bladder is decompressed but otherwise normal. Reproductive: Uterus and ovaries are normal. Intraperitoneal space: Small volume ascites. Lymph nodes: No lymphadenopathy. Bones/joints: No acute fracture. No dislocation. Soft tissues: Normal. No hernias. IMPRESSION: 1. Moderate severe right common femoral artery stenosis. 2. Severe bilateral popliteal artery stenosis, with a single left and 2 right areas of stenosis. 3. Near-complete occlusion distal left superficial femoral artery stent. 4. Findings secondary to peritoneal dialysis. 5. Severely stenotic right renal artery. To contact [facility] with a general question: Operations Center - [phone] For direct physician to physician contact: Physician Hotline - [phone] [facility] ([facility] Facility ID #[id number]) <Electronically signed by Donna Villalobos MD in OV> 05/02/187 Dictated By: Donna Villalobos MD Dictated Date/Time: 05/02/187 Transcribed Date/Time: Copy to: CC:Yordy Benavidez MD; Elena Estrada DO; Tash Daigle MD; Aishwarya Solis MD Imaging - [facility] - [place] [facility] [address] [address] ph ([phone]) ph ([phone]) ph ([phone]) This report is only to be considered final once signed by the Provider(s) as displayed in the "<Electronically Signed by >" field (s). Absence of a signature indicates the report is in a draft status and still needs to be finalized. In the event this document was created by someone other than the signing Provider, the individual initiating the document will be listed in the "Entered by:" or "Dictated by:" hernandez. 2 of 2 Nutrition: TF- promote Impression: 37 yo F with multiple complicated comorbidities including ESRD on PD, CAD s/p stents, PVD s/p stents transferred to the ICU after requiring emergent intubation 05/01 # Acute encephalopathy # Acute hypoxemic respiratory failure # acute ventilator dependance # Sepsis # leukocytosis 26 with neutrophilic predominance # Stable anemia # Hypercoagulable state INR 5.36-->4.42 # ESRD on PD # Troponin leak- improving levels # Sacral ulcer # chronic pain on methadone # HTN # New hypokinesis of LV (lateral) with EF 50-55%. # diastolic dysfunction # RV dysfunction # AV sclerosis # moderate tricuspid regurgitation # PH (42 mmHg on TTE) # S1 impigment # PVD s/p stents # CTA: Moderate severe right common femoral artery stenosis. Severe bilateral popliteal artery stenosis, with a single left and 2 right areas of stenosis. Near-complete occlusion distal left superficial femoral artery stent. Plan: # Acute encephalopathy # Acute hypoxemic respiratory failure # acute ventilator dependance # Sepsis # leukocytosis 26 with neutrophilic predominance # Stable anemia # Hypercoagulable state INR 5.36-->4.42 # ESRD on PD # Troponin leak- improving levels # Sacral ulcer # chronic pain on methadone # HTN # New hypokinesis of LV (lateral) with EF 50-55%. # diastolic dysfunction # RV dysfunction # AV sclerosis # moderate tricuspid regurgitation # PH (42 mmHg on TTE) # S1 impigment # PVD s/p stents - CTA: Moderate severe right common femoral artery stenosis. Severe bilateral popliteal artery stenosis, with a single left and 2 right areas of stenosis. Near-complete occlusion distal left superficial femoral artery stent. 2 of 2 - Bcx 04/29 NTD - if leukocytosis progress or worsening clinical status, will whittaker Cx - S/p peritoneal fluid analysis. Grossly noninfectious. Will await final cultures - current vent setting Vt 400, PEEP 10 - vent/oxygenation optimized on current vent settings. Note that SPO2 is much lower than normal values of SaO2(ABG) - Hemodynamically stable - hold methadone for now. Fentanyl gtt. Started enteral oxycodone - sedation with propofol to maintain RASS 0- -1. Will transition to precedex - Elevated INR likely due to warfarin. Hold warfarin for now. Will need to start systemic A/C once INR <3 - discontinue bethanochol while burns is in place - will give 1 x dose of vancomycin. Continue with zosyn. Will have pharmacy adjust according to PD. Follow up random vanc levels in the AM - plan to image for OM tomorrow- MRI vs CT w/o contrast given kidney disease. Although suspect MRI is better modality without contrast but patient has multiple stents. Will discuss with radiology in AM to discuss compatibility of stents - hold antihypertensives - May need intervention for the occlusion in the LSFA - daily SBT/SWT DVT ppx: Arixtra GI ppx: protonix CRITICAL CARE NEEDS: acute ventilator dependence, AMS Critical care time 65 minutes Full code Prognosis guarded
[2018-05-03] MEDS: Pantoprazole TAB * 40 MG TAB PO SCH (20:03)
[2018-05-03] MEDS: Insulin GLARGINE(*) 1 UNITS UNIT SUBCUT SCH (20:53)
[2018-05-03] MEDS: CALCITRIOL FEED TUBE SCH (21:12)
[2018-05-03] MEDS: ORALSYR FEED TUBE SCH (21:12)
[2018-05-04] MEDS: Chlorhexidine MOUTHWASH 0.12%* 15 ML UDC TOPICAL SCH ×6 (03:29→23:43)
[2018-05-04] MEDS: oxyCODONE ORAL.SOLN* 5 MG/5 ML UDC PO SCH ×3 (03:29→17:22)
[2018-05-04 05:41] LABS: Hematocrit 29 % (35-47); Mean Corpuscular HGB Conc 31 g/dl (31-36); Mean Corpuscular Hemoglobin 28 pg (27-31); Mean Corpuscular Volume 90 fL (80-97); Mean Platelet Volume 8.8 fL (7.4-10.4); Platelet Count 454 10^3/ul (150-450); Red Blood Count 3.21 10^6/ul (4.00-5.40); Red Cell Distribution Width 17 % (10.5-15); White Blood Count 25.5 10^3/ul (3.5-10.8)
[2018-05-04 05:44] LABS: ABS Basophils 0.1 10^3/ul (0-0.2); ABS Eosinophils 0.1 10^3/ul (0-0.6); ABS Lymphocytes 0.9 10^3/ul (1.0-4.8); ABS Monocytes 0.7 10^3/ul (0-0.8); ABS Neutrophils 23.7 10^3/ul (1.5-7.7); ABS Nucleated RBC 0 10^3/ul; Eosinophil % 0.2 %; Lymphocyte % 3.6 %; Nucleated Red Blood Cells % 0.1
[2018-05-04 05:47] LABS: INR 3.36 (0.77-1.02)
[2018-05-04] MEDS ORDERED: Vancomycin Random Level* NOTE FOLLOW UP ONE (06:00)
[2018-05-04 06:18] LABS: Magnesium 1.8 mg/dL (1.9-2.7); Phosphorus 7.2 mg/dL (2.5-5.0)
[2018-05-04] MEDS: fentaNYL INFUSION 50 MCG/ML* 2,500 MCG/50 ML BAG IV SCH ×2 (07:26→12:34)
[2018-05-04 08:05] LABS: BUN/Creatinine Ratio 5.1 (8-20); EGFR African American 6.5 (>60); EGFR Non-African American 5.4 (>60); Potassium 2.9 mmol/L (3.5-5.0)
[2018-05-04] MEDS: ZOSYN 3.375 GM Q12H per EXTENDED INFUSION IVPB SCH ×4 (08:40→20:57)
[2018-05-04] MEDS: Insulin LISPRO* 1 UNITS UNIT SUBCUT SCH ×4 (08:40→20:55)
[2018-05-04] MEDS: CALCITRIOL FEED TUBE SCH ×2 (09:11→15:15)
[2018-05-04] MEDS: ORALSYR FEED TUBE SCH ×2 (09:11→15:15)
[2018-05-04] MEDS: Sertraline* 25 MG TAB PO SCH (09:12)
[2018-05-04] MEDS: Aspirin EC TAB* 81 MG TAB.EC PO SCH (09:12)
[2018-05-04] MEDS: Gabapentin CAP(*) 100 MG PO SCH ×2 (09:12→15:15)
[2018-05-04] MEDS ORDERED: Magnesium Sulfate 1 GM IV* 1 GM/100 ML BAG IV ONE (11:00)
[2018-05-04] MEDS: Mometasone/Formoter 200/5 MDI INH SCH ×2 (11:40→20:27)
[2018-05-04] MEDS: KCL 10 MEQ/50 ML IVPREMIX* 10 MEQ/50 ML BAG IV SCH ×7 (12:01→23:41)
[2018-05-04] MEDS: Potassium Chlor TAB* 20 MEQ TAB.ER PO ONE ×2 (12:01→14:13)
[2018-05-04] MEDS: Fondaparinux* 2.5 MG/0.5 ML SYRINGE SUBCUT SCH (13:16)
[2018-05-04] MEDS ORDERED: Propofol* 100 ML ONE (15:11)
[2018-05-04] MEDS ORDERED: KCL 10 MEQ/50 ML IVPREMIX* 10 MEQ/50 ML BAG ONE (17:27)
[2018-05-04] MEDS ORDERED: Lansoprazole SUSP* ORALSYR 3 MG/ML FEED TUBE SCH (18:00)
--- NOTE | 2018-05-04 18:17 | PN ---
Date of Service: 05/04/18 Critical Care Services: 37 F with multiple comorbidities including ESRD on HD, HF, PH, PVD, ICM 05/02: RSI with etomidate and succinylcholine performed at the bedside for acute respiratory failure with hypoxia 05/03: did not tolerate well with swt. No fevers overnight. Doppler + pulses peripherally 05/04: Off propofol and fentanyl drip but not following commands appropriately. No fever, 1 x vomiting Vital Signs: Temp Pulse Resp BP SpO2 FiO2 97.6 F 96 16 95/60 97 60 05/04/18 16:36 05/04/18 17:01 05/04/18 17:00 05/03/18 00:00 05/04/18 17:01 05/04 16:00 Physical Exam: General: on sedation/analgesia. NAD HEENT: Atraumatic, PERRLA, Mucous membr. moist/pink Lungs: Clear to auscultation Cardiovascular: Normal S1, Normal S2 Abdomen: Soft, No tenderness, No masses Extremities: R toe amputation, chronic skin changes. Ecchymosis in the medial and lateral aspect of upper thigh with notable hyperpigmentation noted today Neurological: unable to access optimally due to sedation/analgesia; nonfocal Fluid Balance (Past 24 Hours): I= O= Net Intake & Output 05/02/18 05/03/18 05/04/18 05/05/18 05:59 05:59 06:59 06:59 Intake Total Output Total Balance Weight Intake: IV Fluids NS (0.9%) Vancomycin Zosyn IVPB Zosyn Medicated IV CC - Propofol/Diprivan IV Narcotic Infusion Fentanyl Oral Tube Feeding Tube Feeding Flush Amount NG Tube Irrigate Amount Output: Urine Burns Other: Date of Last Bowel 05/04/18 Movement # Bowel Movements 1 Estimated Stool Amount Medium ADLs: Meal Record Start: 04/29/18 21: 19 Freq: DAILY@0900,1400,1800 Status: Complete Protocol: Created 04/29/18 21:19 System (Rec: 04/29/18 21:19 System TELE-M15) Document 04/30/18 09:00 [id number] (Rec: 04/30/18 13:52 [id number] TELE-C10) Document 04/30/18 14:00 FRO7916 (Rec: 04/30/18 15:02 [id number] TELE-C10) Document 04/30/18 18:00 RFB6614 (Rec: 04/30/18 19:27 KFG5745 TELE-C10) Document 05/01/18 09:00 KMV4729 (Rec: 05/01/18 14:44 AMF1530 TELE-C10) Document 05/01/18 14:00 SGY5678 (Rec: 05/01/18 14:44 KVJ6273 TELE-C10) Document 05/01/18 18:00 HWK4493 (Rec: 05/01/18 19:43 UJQ0539 TELE-C10) ADLs: Meal Record Start: 05/02/18 07: 16 Freq: 09,13,18 Status: Active Protocol: Created 05/02/18 07:16 [id number] (Rec: 05/02/18 07:16 CAC2665 ICU-C12) Document 05/02/18 09:00 BCG4363 (Rec: 05/02/18 09:36 ICP1447 ICU-C07) Document 05/02/18 13:00 BTS2210 (Rec: 05/02/18 13:05 HYZ5221 ICU-C07) Document 05/02/18 18:00 EZN7064 (Rec: 05/02/18 18:11 AQR2096 ICU-C10) Intake and Output Start: 04/29/18 18: 19 Freq: Status: Complete Protocol: Created 04/29/18 18:19 System (Rec: 04/29/18 18:19 System EDRM-C04) Intake and Output Start: 04/29/18 21: 19 Freq: DAILY@0600,1400,2200 Status: Complete Protocol: Created 04/29/18 21:19 System (Rec: 04/29/18 21:19 System TELE-M15) Document 04/30/18 06:00 SMI6562 (Rec: 04/30/18 06:47 TWK6768 TELE-C03) Document 04/30/18 14:00 HDY2612 (Rec: 04/30/18 15:02 QAJ3829 TELE-C10) Document 04/30/18 22:00 KFD0870 (Rec: 04/30/18 22:07 WZB6627 TELE-C10) Document 05/01/18 05:58 UET4584 (Rec: 05/01/18 05:59 RJS3246 HOSP-C11) Document 05/01/18 14:00 WBH3215 (Rec: 05/01/18 14:46 STG7421 TELE-C10) Document 05/01/18 22:00 DSC2872 (Rec: 05/01/18 22:28 SDQ8590 TELE-C09) Intake and Output Start: 05/02/18 07: 16 Freq: QSHIFT Status: Active Protocol: Created 05/02/18 07:16 TWF6741 (Rec: 05/02/18 07:16 HKP8792 ICU-C12) Document 05/02/18 08:00 OJB9287 (Rec: 05/02/18 08:21 KLX1529 ICU-M35) Document 05/02/18 11:44 LPP2261 (Rec: 05/02/18 11:44 WLS3594 ICU-C07) Document 05/02/18 16:00 CDX2338 (Rec: 05/02/18 18:06 ASB0062 ICU-C10) Document 05/03/18 00:00 OBL8353 (Rec: 05/03/18 00:48 WRU7169 ISDEMO-M03 ) Document 05/03/18 06:07 JCX8740 (Rec: 05/03/18 06:07 MGM4342 ISDEMO-M03 ) Document 05/03/18 08:00 MJF9842 (Rec: 05/03/18 12:31 YKF3020 ICU-C16) Document 05/03/18 12:00 CRH6575 (Rec: 05/03/18 17:36 WOE9512 ICU-C16) Co-Sign 05/03/18 12:00 AFG7328 Document 05/03/18 16:00 YFR0164 (Rec: 05/03/18 18:03 TLX5209 ICU-C16) Document 05/03/18 21:15 THQ2202 (Rec: 05/04/18 03:56 LNI1551 ICU-L03) Document 05/04/18 03:30 OQF9772 (Rec: 05/04/18 03:56 UXR1385 ICU-L03) Document 05/04/18 08:00 HIR8321 (Rec: 05/04/18 11:39 QHI2211 ICU-C16) Labs: Laboratory Results - last 24 hr 05/03/18 05/03/18 05/03/18 14:09 17:23 20:13 WBC RBC Hgb Hct MCV MCH MCHC RDW Plt Count MPV Neut % (Auto) Lymph % (Auto) Norton % (Auto) Eos % (Auto) Baso % (Auto) Absolute Neuts (auto) Absolute Lymphs (auto) Absolute Monos (auto) Absolute Eos (auto) Absolute Basos (auto) Absolute Nucleated RBC Nucleated RBC % ESR INR (Anticoag Therapy) Sodium Potassium Chloride Carbon Dioxide Anion Gap BUN Creatinine Est GFR ( Amer) Est GFR (Non-Af Amer) BUN/Creatinine Ratio Glucose POC Glucose (mg/dL) 218 H 129 H 153 H Calcium Phosphorus Magnesium C-React Prot High Sens Random Vancomycin 05/04/18 05/04/18 05/04/18 05:05 05:05 05:05 WBC 25.5 H RBC 3.21 L Hgb 9.0 L Hct 29 L MCV 90 MCH 28 MCHC 31 RDW 17 H Plt Count 454 H MPV 8.8 Neut % (Auto) 93.1 Lymph % (Auto) 3.6 Norton % (Auto) 2.7 Eos % (Auto) 0.2 Baso % (Auto) 0.4 Absolute Neuts (auto) 23.7 H Absolute Lymphs (auto) 0.9 L Absolute Monos (auto) 0.7 Absolute Eos (auto) 0.1 Absolute Basos (auto) 0.1 Absolute Nucleated RBC 0 Nucleated RBC % 0.1 ESR INR (Anticoag Therapy) 3.36 H Sodium 145 Potassium 2.9 L Chloride 101 Carbon Dioxide 26 Anion Gap 18 H BUN 42 H Creatinine 8.29 H Est GFR ( Amer) 6.5 Est GFR (Non-Af Amer) 5.4 BUN/Creatinine Ratio 5.1 L Glucose 237 H POC Glucose (mg/dL) Calcium 8.0 L Phosphorus 7.2 H Magnesium 1.8 L C-React Prot High Sens Random Vancomycin Cancelled 05/04/18 05/04/18 05/04/18 08:31 08:32 10:11 WBC RBC Hgb Hct MCV MCH MCHC RDW Plt Count MPV Neut % (Auto) Lymph % (Auto) Norton % (Auto) Eos % (Auto) Baso % (Auto) Absolute Neuts (auto) Absolute Lymphs (auto) Absolute Monos (auto) Absolute Eos (auto) Absolute Basos (auto) Absolute Nucleated RBC Nucleated RBC % ESR INR (Anticoag Therapy) Sodium Potassium Chloride Carbon Dioxide Anion Gap BUN Creatinine Est GFR ( Amer) Est GFR (Non-Af Amer) BUN/Creatinine Ratio Glucose POC Glucose (mg/dL) 176 H 179 H Calcium Phosphorus Magnesium C-React Prot High Sens Random Vancomycin 21.1 05/04/18 05/04/18 05/04/18 12:09 12:09 12:12 WBC RBC Hgb Hct MCV MCH MCHC RDW Plt Count MPV Neut % (Auto) Lymph % (Auto) Norton % (Auto) Eos % (Auto) Baso % (Auto) Absolute Neuts (auto) Absolute Lymphs (auto) Absolute Monos (auto) Absolute Eos (auto) Absolute Basos (auto) Absolute Nucleated RBC Nucleated RBC % ESR 126 H INR (Anticoag Therapy) Sodium Potassium Chloride Carbon Dioxide Anion Gap BUN Creatinine Est GFR ( Amer) Est GFR (Non-Af Amer) BUN/Creatinine Ratio Glucose POC Glucose (mg/dL) 169 H Calcium Phosphorus Magnesium C-React Prot High Sens 201.62 H Random Vancomycin Studies: Patient Name: JULI PERRY Medical Record#: [id number] Ordering Physician: Victoria Hernández MD Acct.#: [id number] : 1980 Age: 37 Sex: F Location: [facility] Exam Date: 05/04/18 0700 ADM Status: ADM IN Order Information: CHEST AP OR PORT Accession Number: [id number] CPT: 76033 Indication: Acute. COPD. Comparison: May 02, 2018 Technique: Upright AP 0555 hours Report: Tip of the endotracheal tube 3.6 cm above the Leta. Nasogastric tube passes to the stomach and outside the aelth-uq-eavw caudally. Mild prominence of interstitial markings and patchy pulmonary alveolar opacity most prominent at the LEFT mid to lower lung zone and less prominent at the RIGHT lung base. Grossly clear pleural spaces. Negative for pneumothorax. Mild cardiomegaly. Unremarkable central pulmonary vasculature. IMPRESSION: #. Bilateral pulmonary opacities which which are most suspicious for atelectasis given relative volume loss compared with the 2018 exam. Inflammatory infiltrates also possible. R1F Preliminary Imaging Read R1F <Electronically signed by Jeffery Quan MD in OV> 05/04/18842 Dictated By: Jeffery Quan MD Dictated Date/Time: 05/04/1843 Transcribed Date/Time: 05/04/1840 Copy to: CC:Yordy Benavidez MD; Victoria Hernández MD; Elena Estrada DO; Jori Niño MD; Aishwarya Solis MD Imaging - [facility] Imaging - [facility] [address] [place] [address] [address] [address] ph ([phone]) ph ([phone]) ph ([phone]) This report is only to be considered final once signed by the Provider(s) as displayed in the "<Electronically Signed by >" field (s). Absence of a signature indicates the report is in a draft status and still needs to be finalized. In the event this document was created by someone other than the signing Provider, the individual initiating the document will be listed in the "Entered by:" or "Dictated by:" hernandez. [address] [place] [address] IMAGING Patient Name:JULI PERRY MR:[id number] : 1980 Patient Name: JULI PERRY Medical Record#: [id number] Ordering Physician: Tash Daigle MD Acct.#: [id number] : 1980 Age: 37 Sex: F Location: [address] [place] [address]/TELEMETRY Exam Date: 05/01/18 154 ADM Status: ADM IN Order Information: CTA ABD AORTA & RUNOFF Accession Number: [id number] CPT: 94077 EXAM: CT Bilateral Angiogram of the Abdominal Aorta and Bilateral Lower Extremities (Run-off) With IV Contrast EXAM DATE/TIME: 05/01/2018 9:49 PM CLINICAL HISTORY: 37 years old, female; Screening exam; Purpose: R/O stenosis TECHNIQUE: Bilateral CT angiogram of the abdominal aorta, pelvis and bilateral lower extremities with IV iodinated contrast. All CT scans at this facility use at least one of these dose optimization techniques: automated exposure control; mA and/or kV adjustment per patient size (includes targeted exams where dose is matched to clinical indication); or iterative reconstruction. Coronal and sagittal reformatted images were created and reviewed. MIP reconstructed images were created and reviewed. CONTRAST: Contrast Material: 125 ml of visipaque 320; Contrast Route: i.v COMPARISON: A/P WO CT ABD/PEL W/O 02/19/2018 12:19 PM FINDINGS: Tubes, catheters and devices: Peritoneal dialysis catheter coils in the mid pelvis. Aorta: Moderate spare aortic atherosclerotic calcifications. No aortic dissection, aneurysm, or rupture. Celiac trunk and mesenteric arteries: Moderately atherosclerotic celiac, SMA, and TODD remain patent. Renal arteries: Severely stenotic right renal artery at the origin with continued distal flow. Moderately stenotic left renal artery proximally with continued distal flow. Right iliac arteries: Moderately atherosclerotic right common iliac artery causing mild stenosis. Mild atherosclerotic right external iliac artery without stenosis. Right femoral/popliteal arteries: Moderately atherosclerotic right common femoral artery causing moderate to severe stenosis. Right superficial femoral artery stent of the entire course which is patent. Moderately atherosclerotic right popliteal artery causing severe stenosis distally. Right infrapopliteal arteries: Severely atherosclerotic right anterior tibial, peroneal, and posterior tibial arteries with continued vascular flow into the foot. Left iliac arteries: Mildly atherosclerotic left common iliac artery causing no stenosis. Minimally atherosclerotic left external iliac artery without stenosis. Left femoral/popliteal arteries: Moderately atherosclerotic left common femoral artery causing mild stenosis. Left superficial femoral artery stent This report is only to be considered final once signed by the Provider(s) as displayed in the "<Electronically Signed by >" field (s). Absence of a signature indicates the report is in a draft status and still needs to be finalized. In the event this document was created by someone other than the signing Provider, the individual initiating the document will be listed in the "Entered by:" or "Dictated by:" hernandez. 1 of 2 throughout its entire course with near-complete occlusion distally in the adductor hiatus. Severely atherosclerotic left popliteal artery in the mid aspect. Additional left popliteal artery severe stenosis distally prior to the trifurcation. Left infrapopliteal arteries: Severely atherosclerotic left anterior tibial, peroneal, and posterior tibia arteries with dissipated posterior tibial artery in the mid navarro. Continued anterior tibial and peroneal flow in the foot. Lower thorax: There is mild atherosclerotic calcification of the coronary arteries. Liver: No mass. Gallbladder and bile ducts: Normal. No calcified stones. No ductal dilation. Pancreas: Normal. No mass. No ductal dilation. Spleen: Normal. No splenomegaly. Adrenals: Normal. No mass. Kidneys and ureters: Normal. No mass. Stomach and bowel: Normal. No obstruction. No mucosal thickening. Appendix: No evidence of appendicitis. Bladder: The bladder is decompressed but otherwise normal. Reproductive: Uterus and ovaries are normal. Intraperitoneal space: Small volume ascites. Lymph nodes: No lymphadenopathy. Bones/joints: No acute fracture. No dislocation. Soft tissues: Normal. No hernias. IMPRESSION: 1. Moderate severe right common femoral artery stenosis. 2. Severe bilateral popliteal artery stenosis, with a single left and 2 right areas of stenosis. 3. Near-complete occlusion distal left superficial femoral artery stent. 4. Findings secondary to peritoneal dialysis. 5. Severely stenotic right renal artery. To contact [facility] with a general question: [facility] - [phone] For direct physician to physician contact: Physician Hotline - [phone] [facility] ([facility] Facility ID #[id number]) <Electronically signed by Donna Villalobos MD in [place]> 05/02/187 Dictated By: Donna Villalobos MD Dictated Date/Time: 05/02/187 Transcribed Date/Time: Copy to: CC:Yordy Benavidez MD; Elena Estrada DO; Tash Daigle MD; Aishwarya Solis MD Imaging - [facility] - [facility] Imaging [facility] [address] [address] ph ([phone]) ph ([phone]) ph ([phone]) This report is only to be considered final once signed by the Provider(s) as displayed in the "<Electronically Signed by >" field (s). Absence of a signature indicates the report is in a draft status and still needs to be finalized. In the event this document was created by someone other than the signing Provider, the individual initiating the document will be listed in the "Entered by:" or "Dictated by:" hernandez. 2 of 2 Nutrition: TF- promote Impression: 37 yo F with multiple complicated comorbidities including ESRD on PD, CAD s/p stents, PVD s/p stents transferred to the ICU after requiring emergent intubation 05/01 # Acute encephalopathy # Acute hypoxemic respiratory failure # acute ventilator dependance # Sepsis # leukocytosis 26 with neutrophilic predominance # Stable anemia # Hypercoagulable state INR 5.36-->4.42 # ESRD on PD # Hypokalemia, hypomagnesemia # Troponin leak- improving levels # Sacral ulcer # chronic pain on methadone # HTN # New hypokinesis of LV (lateral) with EF 50-55%. # diastolic dysfunction # RV dysfunction # AV sclerosis # moderate tricuspid regurgitation # PH (42 mmHg on TTE) # S1 impigment # PVD s/p stents # CTA: Moderate severe right common femoral artery stenosis. Severe bilateral popliteal artery stenosis, with a single left and 2 right areas of stenosis. Near-complete occlusion distal left superficial femoral artery stent. Plan: - Bcx 04/29 NTD - Since leukocytosis is persistent >20, will repeat BCx today. Suspect this WBC elevation could be non-infectious and could be related to her LE PVD acute on chronic phenomenon. No concern for OM in L/S-spine based on CT spine - Discontinue vancomycin for now - Continue zosyn for 5 total days of tx if cultures remain negative. Otherwise , tailor according to cultures from today - S/p peritoneal fluid analysis. Grossly noninfectious. Will await final cultures - current vent setting Vt 400, PEEP 10 - vent/oxygenation optimized on current vent settings. Note that SPO2 is much lower than normal values of SaO2(ABG) - Hemodynamically stable - hold methadone for now. Fentanyl gtt. Started enteral oxycodone - sedation with propofol to maintain RASS 0- -1, now on hold. Consider transition to precedex - Elevated INR likely due to warfarin. Hold warfarin for now. Restart Warfarin once INR <3 - discontinue bethanochol while burns is in place - hold antihypertensives - KCL and MgSO2 replacement IV - re-check K+ pending for tonight - May need intervention for the occlusion in the LSFA - daily SBT/SWT DVT ppx: INR >3 GI ppx: protonix CRITICAL CARE NEEDS: acute ventilator dependence, AMS Critical care time 45 minutes Full code Prognosis guarded
[2018-05-04] MEDS: Insulin GLARGINE(*) 1 UNITS UNIT SUBCUT SCH (20:55)
[2018-05-05] MEDS: ORALSYR FEED TUBE SCH ×4 (00:41→22:03)
[2018-05-05] MEDS: oxyCODONE ORAL.SOLN* 5 MG/5 ML UDC PO SCH ×4 (00:41→17:11)
[2018-05-05] MEDS: CALCITRIOL FEED TUBE SCH ×4 (00:41→22:03)
[2018-05-05] MEDS: Gabapentin CAP(*) 100 MG PO SCH ×4 (00:41→22:04)
[2018-05-05] MEDS: KCL 10 MEQ/50 ML IVPREMIX* 10 MEQ/50 ML BAG IV SCH (00:56)
[2018-05-05] MEDS: fentaNYL INFUSION 50 MCG/ML* 2,500 MCG/50 ML BAG IV SCH ×2 (02:46→12:24)
[2018-05-05] MEDS: Chlorhexidine MOUTHWASH 0.12%* 15 ML UDC TOPICAL SCH ×4 (02:46→15:41)
[2018-05-05 04:51] LABS: INR 2.77 (0.77-1.02)
[2018-05-05 04:55] LABS: Magnesium 2.2 mg/dL (1.9-2.7)
[2018-05-05 05:00] LABS: Phosphorus 6.7 mg/dL (2.5-5.0)
[2018-05-05 05:02] LABS: BUN/Creatinine Ratio 5.5 (8-20); EGFR African American 6.7 (>60); EGFR Non-African American 5.5 (>60); Potassium 3.6 mmol/L (3.5-5.0)
[2018-05-05 05:17] LABS: Vancomycin Random 19.6 mcg/mL
[2018-05-05] MEDS: Mometasone/Formoter 200/5 MDI INH SCH ×2 (07:09→19:38)
[2018-05-05] MEDS: Insulin LISPRO* 1 UNITS UNIT SUBCUT SCH ×4 (07:53→22:05)
[2018-05-05] MEDS: ZOSYN 3.375 GM Q12H per EXTENDED INFUSION IVPB SCH ×4 (07:55→19:43)
[2018-05-05 10:41] LABS: Hematocrit 28 % (35-47); Hemoglobin 8.6 g/dl (12.0-16.0); Mean Corpuscular HGB Conc 31 g/dl (31-36); Mean Corpuscular Hemoglobin 28 pg (27-31); Mean Corpuscular Volume 91 fL (80-97); Mean Platelet Volume 8.9 fL (7.4-10.4); Platelet Count 423 10^3/ul (150-450); Red Blood Count 3.05 10^6/ul (4.00-5.40); Red Cell Distribution Width 17 % (10.5-15); White Blood Count 22.5 10^3/ul (3.5-10.8)
[2018-05-05] MEDS: Aspirin EC TAB* 81 MG TAB.EC PO SCH (11:18)
[2018-05-05] MEDS: Sertraline* 25 MG TAB PO SCH (11:18)
--- NOTE | 2018-05-05 11:40 | PN ---
Progress Note - Progress Note Date of Service: 05/05/18 Note: Progress Note -- Critical Care 24 hour events/significant events: -no events overnight -remains intubated; on fentanyl infusion -awake, alert, follows commands, no distress noted -not on pressors, hemodyn stable, NSR -complaints of pain by patient, pointing to LE -boyfriend at bedside -minimal secretions noted from ETT Tele: NSR Vitals: Vital Signs Temp 96.9 F 05/05/18 04:00 Pulse 96 05/05/18 08:01 Resp 13 05/05/18 08:00 BP 95/60 05/03/18 00:00 Pulse Ox 100 05/05/18 08:01 Intake & Output 05/04/18 05/05/18 05/05/18 18:59 06:59 18:59 Intake Total 15 1538 Balance 15 1538 Weight 84.7 kg Intake: IV Fluids 15 252 NS (0.9%) 15 197 Zosyn 55 IVPB 542 NS (0.9%) 444 Zosyn 98 IV Narcotic Infusion 48 Fentanyl 48 Tube Feeding 636 Tube Feeding Flush Amount 60 Other: Date of Last Bowel 05/04/18 Movement # Bowel Movements 1 Estimated Stool Amount Medium O2/Vent: SIMV 55% fio2 Infusions: fentanyl 125mcg/hr Medications: Acetaminophen (Tylenol Tab*) 650 mg PO Q6H PRN PRN Reason: PAIN Albuterol (Ventolin 2.5 Mg/3 Ml Neb.Kaylynn*) 2.5 mg INH Q4HR PRN PRN Reason: SOB/WHEEZING Last Admin: 05/01/18 19:17 Dose: 2.5 mg Albuterol (Ventolin Hfa Inhaler*) 2 puff INH Q6H PRN PRN Reason: COUGH Aspirin (Aspirin Ec Tab*) 81 mg PO DAILY [facility] Last Admin: 05/04/18 09:12 Dose: 81 mg Calcitriol (Calcitriol Soln 1 Mcg/Ml Oralsyr) 0.25 mcg FEED TUBE TID [facility] Last Admin: 05/05/18 00:41 Dose: 0.25 mcg Chlorhexidine Gluconate (Peridex Mouth Wash 0.12%*) 15 ml TOPICAL Q4H [facility] Last Admin: 05/05/18 07:53 Dose: 15 ml Dextrose (D50w Syringe 50 Ml*) 12.5 gm IV PUSH .FOR FS < 60 - SS PRN PRN Reason: FS < 60 Docusate Sodium (Colace Liq*) 100 mg G TUBE TID PRN PRN Reason: CONSTIPATION Gabapentin (Neurontin Cap(*)) 200 mg PO TID [facility] Last Admin: 05/05/18 00:41 Dose: 200 mg Piperacillin Sod/Tazobactam (Sod 3.375 gm/ Sodium Chloride) 100 mls @ 25 mls/ hr IVPB Q12H [facility] Last Admin: 05/05/18 07:55 Dose: 25 mls/hr Fentanyl Citrate (Fentanyl Infusion Bag 50 Mcg/Ml 50 Ml) 2,500 mcg in 50 mls @ 0.5 mls/hr IV Q24H [facility]; Protocol Last Admin: 05/05/18 02:46 Dose: 0.5 mls/hr Insulin Glargine (Lantus(*)) 70 units SUBCUT BEDTIME [facility] Last Admin: 05/04/18 20:55 Dose: 70 units Insulin Human Lispro (Humalog*) 0 units SUBCUT ACHS [facility]; Protocol Last Admin: 05/05/18 07:53 Dose: 6 units Lansoprazole (Lansoprazole Susp* Oralsyr) 30 mg FEED TUBE QPM [facility] Last Admin: 05/04/18 18:40 Dose: Not Given Mometasone Furoate/Formoterol Fumar (Dulera 200/5 Mdi*) 2 puff INH BID [facility]; Protocol Last Admin: 05/05/18 07:09 Dose: Not Given Ondansetron HCl (Zofran Inj*) 4 mg IV Q4H PRN PRN Reason: NAUSEA/VOMITING Last Admin: 04/30/18 13:07 Dose: 4 mg Ondansetron HCl (Zofran Inj*) 4 mg IV Q6H PRN PRN Reason: NAUSEA Oxycodone HCl (Oxycodone Oral.Soln*) 10 mg PO Q6HR [facility] Last Admin: 05/05/18 06:20 Dose: 10 mg Pharmacy Consult (Zosyn Per Pharmacy*) 1 note FOLLOW UP .ZOSYN PER PHARMACY [facility] Pharmacy Profile Note (Coumadin Per Pharmacy*) 1 note FOLLOW UP 1700 [facility] Last Admin: 05/04/18 18:40 Dose: 1 note Promethazine HCl (Phenergan Tab*) 25 mg PO Q8H PRN PRN Reason: NAUSEA Senna (Senokot Tab*) 1 tab G TUBE BID PRN PRN Reason: CONSTIPATION Sertraline HCl (Zoloft*) 25 mg PO DAILY [facility] Last Admin: 05/04/18 09:12 Dose: 25 mg Physical Exam: General: intubated, awake/alert, no diaphoresis Head: normocephalic, atraumatic HEENT: no pallor, no icterus, moist mucous membranes Neck: soft, supple, no jvd CVS: normal rate, regular, no murmur Resp: bilateral air entry, no Rhales, mild scattered rhonchi+, no acc muscle use Abdomen: soft, nontender, nondistended, BS+; PD cathetor+ Ext: pulses mby doppler+, warm; thigh induration and redness noted bialterally Skin: intact Neuro: awake, alert, moving all extremities, no gross focal deficit Labs: Laboratory Results - last 24 hr 05/02/18 05/04/18 05/04/18 13:00 12:09 12:09 WBC RBC Hgb Hct MCV MCH MCHC RDW Plt Count MPV ESR 126 H INR (Anticoag Therapy) ABG pH ABG pCO2 ABG pO2 ABG HCO3 ABG O2 Saturation ABG Base Excess Sodium Potassium Chloride Carbon Dioxide Anion Gap BUN Creatinine Est GFR ( Amer) Est GFR (Non-Af Amer) BUN/Creatinine Ratio Glucose POC Glucose (mg/dL) Calcium Phosphorus Magnesium C-React Prot High Sens 201.62 H Fluid Cell Count Rvw By Random Vancomycin 05/04/18 05/04/18 05/04/18 12:12 18:15 20:20 WBC RBC Hgb Hct MCV MCH MCHC RDW Plt Count MPV ESR INR (Anticoag Therapy) ABG pH ABG pCO2 ABG pO2 ABG HCO3 ABG O2 Saturation ABG Base Excess Sodium Potassium Chloride Carbon Dioxide Anion Gap BUN Creatinine Est GFR ( Amer) Est GFR (Non-Af Amer) BUN/Creatinine Ratio Glucose POC Glucose (mg/dL) 169 H 92 189 H Calcium Phosphorus Magnesium C-React Prot High Sens Fluid Cell Count Rvw By Random Vancomycin 05/04/18 05/05/18 05/05/18 20:21 04:35 04:35 WBC RBC Hgb Hct MCV MCH MCHC RDW Plt Count MPV ESR INR (Anticoag Therapy) ABG pH ABG pCO2 ABG pO2 ABG HCO3 ABG O2 Saturation ABG Base Excess Sodium 145 Potassium 3.2 L 3.6 Chloride 103 Carbon Dioxide 27 Anion Gap 15 H BUN 45 H Creatinine 8.12 H Est GFR ( Amer) 6.7 Est GFR (Non-Af Amer) 5.5 BUN/Creatinine Ratio 5.5 L Glucose 219 H POC Glucose (mg/dL) Calcium 9.0 Phosphorus 6.7 H Magnesium 2.2 C-React Prot High Sens Fluid Cell Count Rvw By Random Vancomycin 19.6 05/05/18 05/05/18 05/05/18 04:35 09:54 09:54 WBC 22.5 H RBC 3.05 L Hgb 8.6 L Hct 28 L MCV 91 MCH 28 MCHC 31 RDW 17 H Plt Count 423 MPV 8.9 ESR INR (Anticoag Therapy) 2.77 H ABG pH 7.34 L ABG pCO2 52 H ABG pO2 86 ABG HCO3 25.9 ABG O2 Saturation 96.6 ABG Base Excess 1.4 Sodium Potassium Chloride Carbon Dioxide Anion Gap BUN Creatinine Est GFR ( Amer) Est GFR (Non-Af Amer) BUN/Creatinine Ratio Glucose POC Glucose (mg/dL) Calcium Phosphorus Magnesium C-React Prot High Sens Fluid Cell Count Rvw By Random Vancomycin Imaging: cxr 05/05 - ett above rony, no sig infiltrate/congestion noted Assessment: 37y F w/pmhx of DM, Hypothyroid?, HTN, CAD?, DVT, PVD s/p stents to b/l LE, COPD on 5L home o2, GERD/Gastroparesis, ESRD on PD, active smoker, h/o HIT on warfarin, peripheral neuropathy/chronic pain on methadone; admitted 04/29 after complaints of nausea/vomiting, abd pain, left leg pain+. Intubated for hypoxic respiratory failure 05/02, suspected to be from pneumonia and pulmonary congestion/CHF exacerbation. -Acute on chronic hypercapneic and hypoxic resp failure, intubated 05/02 -Possible pulmonary congestion -ESRD on PD -CAD -Severe PVD -Metabolic acidosis -Hyperkalemia -H/o HIT on warfarin -DM COPD, on home o2 Hypothyroidism Plan: Neuro- awake, alert. -cont fentanyl, dec to 100mcg/hr before extubation; cont oxycodone 10mg q6h for pain -chronic pain, will need methadone restarted again CVS- BP stable, HR stable -CXR improved congestion -PD dialy ongoing -Hg stable -IV abx for pna? Resp- intubated, on 55%. on SIMV, tolerating well. CPAP trial started now, doing well, no distress. -ABG reviewed, previous ABGs with hypercapnea also -CXR 05/05 no sig congestion/infltrates -secretions minimal -CPAP now, if tolerating, check NIF/VC for feasability of extubation -no growth on cultures -cont VAP bundle, asp prec -Bronchodilators as needed ID- afebrile. wbc 22, dec today. urien culture with VRE , similar to previous urine culture in march. No tx given. currently nontoxic. unclear if she is a colonizer at this time. holding abx. no other source of infection noted. -zosyn day 6 now, will cont 1 more day. d/c vanco. GI- TF via OGT tolerating; change to GLucerna @ goal 65cc/hr. Hold feeds for weaning at this time. GI proph with ppi. Renal- ESRD on PD. K okay, no acidosis. Cont as per renal, nephrology following. Seems volume status better. Heme- hg stable. plt stable. INR 2-3, therapuetic. Cont warfarin for HIT. no bleeding noted. Endo-Maintain BG<200, insulin protocol. Has not been on synthroid, not in home meds either. Musculsk- pressure ulcer prophylaxis. Bedrest. -noted severe PVD by studies. dopplerable pulses+, warm ext, no signs of ischemia distally. Previous email operations manager ahs reached out to [facility], no acute need for transfer given known severe PVD. will need workup and management once stabilized from current medical situation. Wounds- none Nutrition- OGT feeds, changed to glucerna now DVT prophylaxis: warfarin GI prophylaxis: ppi Central Line: yes Arterial Line: yes Rodriguez Cathetor: no Disposition: Patient requires Critical Care/ICU for respiratory failure Patient clinical status: stable, critical Code Status: full code Total Critical Care time is 40 minutes, excluding procedures/teaching Jose R Horvath MD Culturist (Electronically Signed)
[2018-05-05] MEDS: Albuterol 2.5 MG/3 ML NEB.SOL* (0.083%) INH PRN ×2 (12:41→19:55)
[2018-05-05 15:19] LABS: WB Total Porphyrins 47 mcg/dL (<80)
[2018-05-05] MEDS ORDERED: Labetalol IV* 5 MG/ML 20 ML VIAL IV PUSH ONE (15:38)
[2018-05-05] MEDS ORDERED: Metoprolol Tartrate IV* 1 MG/ML 5 ML VIAL IV ONE (16:41)
[2018-05-05] MEDS ORDERED: Warfarin TAB(*) 4 MG PO ONE (17:00)
[2018-05-05] MEDS: Ondansetron INJ* 2 MG/ML VIAL IV PRN (17:21)
[2018-05-05] MEDS: Insulin GLARGINE(*) 1 UNITS UNIT SUBCUT SCH ×2 (22:03→22:43)
[2018-05-05] MEDS: Morphine 4 MG/ML VIAL (1 ml) 4 MG/ML VIAL IV PRN (22:05)
[2018-05-05] MEDS ORDERED: HYDROmorphone INJ1* 1 MG/ML SYRINGE ONE (22:39)
[2018-05-05] MEDS ORDERED: Insulin GLARGINE(*) 1 UNITS UNIT SUBCUT ONE (23:00)
[2018-05-05] MEDS: Losartan TAB* 25 MG PO SCH (23:16)
[2018-05-06] MEDS: oxyCODONE ORAL.SOLN* 5 MG/5 ML UDC PO SCH ×5 (00:20→23:54)
[2018-05-06] MEDS: HYDROmorphone INJ1* 1 MG/ML SYRINGE IV PRN ×5 (01:48→20:33)
[2018-05-06] MEDS: Methadone TAB* 5 MG PO PRN ×2 (03:06→17:43)
[2018-05-06] MEDS: Morphine 4 MG/ML VIAL (1 ml) 4 MG/ML VIAL IV PRN (04:47)
[2018-05-06 05:24] LABS: Hematocrit 27 % (35-47); Hemoglobin 8.1 g/dl (12.0-16.0); Mean Corpuscular HGB Conc 30 g/dl (31-36); Mean Corpuscular Hemoglobin 27 pg (27-31); Mean Corpuscular Volume 92 fL (80-97); Mean Platelet Volume 8.7 fL (7.4-10.4); Platelet Count 383 10^3/ul (150-450); Red Blood Count 2.95 10^6/ul (4.00-5.40); Red Cell Distribution Width 17 % (10.5-15); White Blood Count 20.9 10^3/ul (3.5-10.8)
[2018-05-06 05:29] LABS: INR 3.46 (0.77-1.02)
[2018-05-06 05:30] LABS: BUN/Creatinine Ratio 5.5 (8-20); Calcium 8.4 mg/dL (8.6-10.3); EGFR African American 7.2 (>60); EGFR Non-African American 5.9 (>60); Potassium 3.4 mmol/L (3.5-5.0)
[2018-05-06] MEDS ORDERED: Fluconazole 150 MG TAB PO ONE (06:00)
[2018-05-06] MEDS: Al Hydrox/Mg Hydrox/Simet LIQ* 30 ML UDC PO PRN (06:07)
[2018-05-06] MEDS: ZOSYN 3.375 GM Q12H per EXTENDED INFUSION IVPB SCH ×4 (07:52→20:48)
[2018-05-06] MEDS: Pantoprazole TAB * 40 MG TAB PO SCH (07:57)
[2018-05-06] MEDS: Losartan TAB* 25 MG PO SCH (07:57)
[2018-05-06] MEDS: Gabapentin CAP(*) 100 MG PO SCH ×3 (07:57→21:01)
[2018-05-06] MEDS: Aspirin EC TAB* 81 MG TAB.EC PO SCH (07:57)
[2018-05-06] MEDS: Sertraline* 25 MG TAB PO SCH (07:58)
[2018-05-06] MEDS: ORALSYR FEED TUBE SCH ×3 (07:58→21:54)
[2018-05-06] MEDS: CALCITRIOL FEED TUBE SCH ×3 (07:58→21:54)
[2018-05-06] MEDS: Insulin LISPRO* 1 UNITS UNIT SUBCUT SCH ×4 (08:24→21:05)
[2018-05-06] MEDS ORDERED: Nystatin TOP POWDER* 15 GM BTL TOPICAL SCH (09:00)
[2018-05-06] MEDS: Mometasone/Formoter 200/5 MDI INH SCH ×2 (09:01→20:07)
--- NOTE | 2018-05-06 11:30 | PN ---
Progress Note - Progress Note Date of Service: 05/06/18 Note: Progress Note -- Critical Care 24 hour events/significant events: -extubated to NC yesterday -no events overnight -complaints of pain+ -off fentanyl this morning -not on pressors, hemodyn stable, NSR -cough minimal, no sig sputum; no sob/cp/n/v/abd pain -complaints of pain by patient, pointing to LE and back/legs -boyfriend at bedside Tele: NSR Vitals: Vital Signs Temp 98.3 F 05/06/18 04:40 Pulse 114 05/06/18 09:01 Resp 13 05/06/18 10:00 BP 71/39 05/06/18 09:01 Pulse Ox 114 05/06/18 09:02 Intake & Output 05/05/18 05/06/18 05/06/18 18:59 06:59 18:59 Intake Total 555.3 99 Output Total 0 0 Balance 555.3 99 Weight 87.135 kg Intake: IV Fluids 335.3 NS (0.9%) 335.3 IVPB 220 Zosyn 220 IV Narcotic Infusion 99 Fentanyl 99 Oral 0 Output: Urine 0 0 Other: Date of Last Bowel 05/05/18 05/06/18 Movement # Bowel Movements 3 5 Estimated Stool Amount Medium Large O2/Vent: NC 7 Infusions: heplock Medications: Acetaminophen (Tylenol Tab*) 650 mg PO Q6H PRN PRN Reason: PAIN Al Hydrox/Mg Hydrox/Simethicone (Maalox Plus*) 30 ml PO Q6H PRN PRN Reason: DYSPEPSIA Last Admin: 05/06/18 06:07 Dose: 30 ml Albuterol (Ventolin 2.5 Mg/3 Ml Neb.Kaylynn*) 2.5 mg INH Q4HR PRN PRN Reason: SOB/WHEEZING Last Admin: 05/05/18 19:55 Dose: 2.5 mg Aspirin (Aspirin Ec Tab*) 81 mg PO DAILY [facility] Last Admin: 05/06/18 07:57 Dose: 81 mg Calcitriol (Calcitriol Soln 1 Mcg/Ml Oralsyr) 0.25 mcg FEED TUBE TID [facility] Last Admin: 05/06/18 07:58 Dose: Not Given Dextrose (D50w Syringe 50 Ml*) 12.5 gm IV PUSH .FOR FS < 60 - SS PRN PRN Reason: FS < 60 Gabapentin (Neurontin Cap(*)) 200 mg PO TID [facility] Last Admin: 05/06/18 07:57 Dose: 200 mg Hydromorphone HCl (Dilaudid Inj1s*) 1 mg IV Q3H PRN PRN Reason: PAIN - MODERATE TO SEVERE Last Admin: 05/06/18 07:58 Dose: 1 mg Piperacillin Sod/Tazobactam (Sod 3.375 gm/ Sodium Chloride) 100 mls @ 25 mls/ hr IVPB Q12H [facility] Last Admin: 05/06/18 07:52 Dose: 25 mls/hr Insulin Glargine (Lantus(*)) 70 units SUBCUT 2100 [facility] Insulin Human Lispro (Humalog*) 0 units SUBCUT ACHS [facility]; Protocol Last Admin: 05/06/18 08:24 Dose: 2 units Losartan Potassium (Cozaar Tab*) 50 mg PO DAILY [facility] Last Admin: 05/06/18 07:57 Dose: 50 mg Methadone HCl (Dolophine Tab*) 5 mg PO Q8H PRN PRN Reason: PAIN - MODERATE Last Admin: 05/06/18 03:06 Dose: 5 mg Mometasone Furoate/Formoterol Fumar (Dulera 200/5 Mdi*) 2 puff INH BID [facility]; Protocol Last Admin: 05/06/18 09:01 Dose: 2 puff Morphine Sulfate (Morphine Vial*) 0.5 mg IV Q6H PRN PRN Reason: PAIN Last Admin: 05/06/18 04:47 Dose: 0.5 mg Ondansetron HCl (Zofran Inj*) 4 mg IV Q4H PRN PRN Reason: NAUSEA/VOMITING Last Admin: 05/05/18 17:21 Dose: 4 mg Ondansetron HCl (Zofran Inj*) 4 mg IV Q6H PRN PRN Reason: NAUSEA Oxycodone HCl (Oxycodone Oral.Soln*) 10 mg PO Q6HR [facility] Last Admin: 05/06/18 06:07 Dose: 10 mg Pantoprazole Sodium (Protonix Tab*) 40 mg PO DAILY [facility] Last Admin: 05/06/18 07:57 Dose: 40 mg Pharmacy Consult (Zosyn Per Pharmacy*) 1 note FOLLOW UP .ZOSYN PER PHARMACY [facility] Pharmacy Profile Note (Coumadin Per Pharmacy*) 1 note FOLLOW UP 1700 [facility] Last Admin: 05/05/18 18:00 Dose: 1 note Promethazine HCl (Phenergan Tab*) 25 mg PO Q8H PRN PRN Reason: NAUSEA Sertraline HCl (Zoloft*) 25 mg PO DAILY [facility] Last Admin: 05/06/18 07:58 Dose: 25 mg Physical Exam: General: awake/alert, no diaphoresis Head: normocephalic, atraumatic HEENT: no pallor, no icterus, moist mucous membranes Neck: soft, supple, no jvd CVS: normal rate, regular, no murmur Resp: bilateral air entry, no Rhales, no rhonchi/wheeze, no acc muscle use Abdomen: soft, nontender, nondistended, BS+; PD cathetor+ Ext: pulses by doppler+, warm; thigh swelling noted bialterally, stable Skin: intact Neuro: awake, alert, moving all extremities, no gross focal deficit Labs: Laboratory Results - last 24 hr 05/01/18 05/02/18 05/05/18 22:40 13:00 07:38 WBC RBC Hgb Hct MCV MCH MCHC RDW Plt Count MPV INR (Anticoag Therapy) Sodium Potassium Chloride Carbon Dioxide Anion Gap BUN Creatinine Est GFR ( Amer) Est GFR (Non-Af Amer) BUN/Creatinine Ratio Glucose POC Glucose (mg/dL) 214 H Calcium RBC Total Porphyrins 47 RBC Porphyrins Interp See comment Plasma Total Porphyrins <1.0 Plasma Porphyrin Intrp See comment Fluid Cell Count Rvw By Result Reviewed By See comment 05/05/18 05/05/18 05/05/18 11:45 17:44 21:41 WBC RBC Hgb Hct MCV MCH MCHC RDW Plt Count MPV INR (Anticoag Therapy) Sodium Potassium Chloride Carbon Dioxide Anion Gap BUN Creatinine Est GFR ( Amer) Est GFR (Non-Af Amer) BUN/Creatinine Ratio Glucose POC Glucose (mg/dL) 165 H 167 H 105 H Calcium RBC Total Porphyrins RBC Porphyrins Interp Plasma Total Porphyrins Plasma Porphyrin Intrp Fluid Cell Count Rvw By Result Reviewed By 05/06/18 05/06/18 05/06/18 05:00 05:00 05:00 WBC 20.9 H RBC 2.95 L Hgb 8.1 L Hct 27 L MCV 92 MCH 27 MCHC 30 L RDW 17 H Plt Count 383 MPV 8.7 INR (Anticoag Therapy) 3.46 H Sodium 139 Potassium 3.4 L Chloride 100 L Carbon Dioxide 25 Anion Gap 14 H BUN 42 H Creatinine 7.66 H Est GFR ( Amer) 7.2 Est GFR (Non-Af Amer) 5.9 BUN/Creatinine Ratio 5.5 L Glucose 143 H POC Glucose (mg/dL) Calcium 8.4 L RBC Total Porphyrins RBC Porphyrins Interp Plasma Total Porphyrins Plasma Porphyrin Intrp Fluid Cell Count Rvw By Result Reviewed By 05/06/18 07:52 WBC RBC Hgb Hct MCV MCH MCHC RDW Plt Count MPV INR (Anticoag Therapy) Sodium Potassium Chloride Carbon Dioxide Anion Gap BUN Creatinine Est GFR ( Amer) Est GFR (Non-Af Amer) BUN/Creatinine Ratio Glucose POC Glucose (mg/dL) 143 H Calcium RBC Total Porphyrins RBC Porphyrins Interp Plasma Total Porphyrins Plasma Porphyrin Intrp Fluid Cell Count Rvw By Result Reviewed By Microbiology 05/02/18 13:00 Sterile Body Fluid Culture - Preliminary Peritoneal Fluid No Growth Day 3 Sterile Body Fluid Culture - Preliminary No Growth Day 3 04/30/18 20:20 Urine Culture - Final Urine Vre Enterococcus Faecium Juliet Albicans Imaging: cxr 05/05 - ett above rony, no sig infiltrate/congestion noted cxr 05/06 - improving atelectasis Assessment: 37y F w/pmhx of DM, Hypothyroid?, HTN, CAD?, DVT, PVD s/p stents to b/l LE, COPD on 5L home o2, GERD/Gastroparesis, ESRD on PD, active smoker, h/o HIT on warfarin, peripheral neuropathy/chronic pain on methadone; admitted 04/29 after complaints of nausea/vomiting, abd pain, left leg pain+. Intubated for hypoxic respiratory failure 05/02, suspected to be from pneumonia and pulmonary congestion/CHF exacerbation. -Acute on chronic hypercapneic and hypoxic resp failure, intubated 05/02, extubated 05/05 - pulmonary congestion, improved -ESRD on PD -CAD -Severe PVD -Metabolic acidosis -Hyperkalemia -H/o HIT on warfarin -DM COPD, on home o2 Hypothyroidism Plan: Neuro- awake, alert. -off fentanyl; cont oxycodone 10mg q6h for pain, cont methadone 5mg q8h -chronic pain, pain med consult CVS- -BP stable, HR stable -CXR improved congestion -PD daily ongoing -Hg stable -IV abx for pna Resp- -on NC 7L, baseline at home 5L; not much cough/secretions -CXR 05/06 improving atelectasis -no growth on cultures -asp prec -Bronchodilators as needed ID- afebrile. wbc feb 13. urine culture with VRE , similar to previous urine culture in march. No tx given. currently nontoxic. unclear if she is a colonizer at this time. no other source of infection noted. -zosyn day 7 nowd/c today. No growth on cultures noted. -diarrhea+, c.diff neg GI- start renal diet. GI proph with ppi. Asp prec -diarrhea+, flexiseal pulled out. c.diff neg. d/c abx today. Po diet. no bleeding. Renal- ESRD on PD. K okay, no acidosis. Cont as per renal, nephrology following. Heme- hg stable. plt stable. INR 3, therapuetic. Cont warfarin for HIT. no bleeding. Endo-Maintain BG<200, insulin protocol. Has not been on synthroid, not in home meds either. -cont lantus 70, lispro coverage -cont gabapentin for peripheral neuropathy; still has ongoing burning Musculsk- pressure ulcer prophylaxis. Bedrest. -noted severe PVD by studies. dopplerable pulses+, warm ext, no signs of ischemia distally. Previous consulting systems engineer ahs reached out to [facility], no acute need for transfer given known severe PVD. will need workup and management once stabilized from current medical situation. if not outpatient , may even need inpatient transfer if vascular would like eval/intervention. Wounds- none Nutrition- renal po diet, asp prec DVT prophylaxis: warfarin GI prophylaxis: ppi Central Line: no Arterial Line: no Rodriguez Cathetor: no Disposition: stable, can be transferred to medical floor Patient clinical status: stable Code Status: full code Jose R Horvath MD [place] Captain (Electronically Signed)
[2018-05-06] MEDS ORDERED: Warfarin TAB(*) 1 MG PO ONE (17:00)
[2018-05-06] MEDS: Albuterol 2.5 MG/3 ML NEB.SOL* (0.083%) INH PRN (17:20)
[2018-05-06] MEDS: Insulin GLARGINE(*) 1 UNITS UNIT SUBCUT SCH (23:51)
[2018-05-07] MEDS: Methadone TAB* 5 MG PO PRN ×2 (01:48→10:29)
[2018-05-07] MEDS: HYDROmorphone INJ1* 1 MG/ML SYRINGE IV PRN ×6 (01:55→18:09)
[2018-05-07] MEDS: Al Hydrox/Mg Hydrox/Simet LIQ* 30 ML UDC PO PRN (05:22)
[2018-05-07] MEDS: oxyCODONE ORAL.SOLN* 5 MG/5 ML UDC PO SCH ×4 (06:18→23:56)
[2018-05-07] MEDS: Aspirin EC TAB* 81 MG TAB.EC PO SCH (09:04)
[2018-05-07] MEDS: Sertraline* 25 MG TAB PO SCH (09:04)
[2018-05-07] MEDS: Gabapentin CAP(*) 100 MG PO SCH ×3 (09:05→21:45)
[2018-05-07] MEDS: Losartan TAB* 25 MG PO SCH (09:06)
[2018-05-07] MEDS: Mometasone/Formoter 200/5 MDI INH SCH ×2 (09:06→20:03)
[2018-05-07] MEDS: Albuterol 2.5 MG/3 ML NEB.SOL* (0.083%) INH PRN (09:06)
[2018-05-07] MEDS: Pantoprazole TAB * 40 MG TAB PO SCH (09:07)
[2018-05-07] MEDS: CALCITRIOL FEED TUBE SCH ×3 (10:30→21:46)
[2018-05-07] MEDS: ORALSYR FEED TUBE SCH ×3 (10:30→21:46)
[2018-05-07] MEDS: Insulin LISPRO* 1 UNITS UNIT SUBCUT SCH ×4 (11:27→21:50)
--- NOTE | 2018-05-07 14:17 | CONSULT ---
Subjective Date of Service: 05/07/18 Interval History: Ms. Wright is a 37 yo female with PMH significant for ESRD on PD, COPD with chronic hypoxic respiratory failure on 5L 02, IDDM, chronic pain on methadone, unconfirmed CAD and recent admission at the end of March for PNA/Sepsis who presented to the emergency room with complaints of bilateral thigh pain found with elevated CRP/WBC and elevated troponin. Ms. Wright states that she had "firm" area to bilateral thighs on admission and that during her stay in the ICU she developed discoloration to bilateral thighs. She reports pain with palpation of these areas. Family History: Unchanged from Admission Social History: Unchanged from Admission Past Medical History: Unchanged from Admission Review of Systems - Measurements Intake and Output: Intake and Output Last 24 Hours 05/05/18 05/06/18 05/07/18 05/08/18 06:59 06:59 06:59 06:59 Intake Total 1553 555.3 209 150 Output Total 0 0 Balance 1553 555.3 209 150 Weight 186 lb 11.704 oz 192 lb 1.6 oz Intake: IV Fluids 267 335.3 110 NS (0.9%) 212 335.3 Zosyn 55 110 IVPB 542 220 NS (0.9%) 444 Zosyn 98 220 IV Narcotic Infusion 48 99 Fentanyl 48 99 Oral 0 150 Tube Feeding 636 Tube Feeding Flush Amount 60 Output: Urine 0 0 Other: Date of Last Bowel 05/04/18 05/05/18 05/06/18 Movement # Bowel Movements 1 3 1 Estimated Stool Amount Medium Medium Small - Review of Systems Constitutional Symptoms: Negative: Fever, Other - Chills Dermatology: Positive: Other - Discoloations and "firm" areas to bilateral thighs Endocrinology: Positive: Diabetes Mellitus Objective Active Medications: Acetaminophen (Tylenol Tab*) 650 mg PO Q6H PRN Reason: PAIN Al Hydrox/Mg Hydrox/Simethicone (Maalox Plus*) 30 ml PO Q6H PRN Reason: DYSPEPSIA Albuterol (Ventolin 2.5 Mg/3 Ml Neb.Kaylynn*) 2.5 mg INH Q4HR PRN Reason: SOB/ WHEEZING Aspirin (Aspirin Ec Tab*) 81 mg PO DAILY [facility] Calcitriol (Calcitriol Soln 1 Mcg/Ml Oralsyr) 0.25 mcg FEED TUBE TID [facility] Dextrose (D50w Syringe 50 Ml*) 12.5 gm IV PUSH .FOR FS < 60 - SS PRN Reason: FS < 60 Gabapentin (Neurontin Cap(*)) 200 mg PO TID [facility] Hydromorphone HCl (Dilaudid Inj1s*) 1 mg IV Q3H PRN Reason: PAIN - MODERATE TO SEVERE Insulin Glargine (Lantus(*)) 70 units SUBCUT 2100 [facility] Insulin Human Lispro (Humalog*) 0 units SUBCUT ACHS [facility]; Protocol Losartan Potassium (Cozaar Tab*) 50 mg PO DAILY [facility] Methadone HCl (Dolophine Tab*) 5 mg PO Q8H PRN Reason: PAIN - MODERATE Mometasone Furoate/Formoterol Fumar (Dulera 200/5 Mdi*) 2 puff INH BID [facility]; Protocol Ondansetron HCl (Zofran Inj*) 4 mg IV Q4H PRN Reason: NAUSEA/VOMITING Ondansetron HCl (Zofran Inj*) 4 mg IV Q6H PRN Reason: NAUSEA Oxycodone HCl (Oxycodone Oral.Soln*) 10 mg PO Q6HR [facility] Pantoprazole Sodium (Protonix Tab*) 40 mg PO DAILY [facility] Pharmacy Profile Note (Coumadin Per Pharmacy*) 1 note FOLLOW UP 1700 [facility] Promethazine HCl (Phenergan Tab*) 25 mg PO Q8H PRN Reason: NAUSEA Sertraline HCl (Zoloft*) 25 mg PO DAILY [facility] Vital Signs - 8 hr 05/07/18 05/07/18 05/07/18 06:18 06:27 08:00 Temperature Pulse Rate Respiratory 20 20 16 Rate Blood Pressure (mmHg) O2 Sat by Pulse 99 Oximetry 05/07/18 05/07/18 05/07/18 08:51 09:05 09:07 Temperature 96.5 F Pulse Rate 90 Respiratory 16 16 16 Rate Blood Pressure 101/73 (mmHg) O2 Sat by Pulse 87 Oximetry 05/07/18 05/07/18 05/07/18 09:11 09:13 10:29 Temperature Pulse Rate 79 79 Respiratory 18 18 16 Rate Blood Pressure (mmHg) O2 Sat by Pulse 99 99 Oximetry 05/07/18 05/07/18 05/07/18 10:30 10:31 11:28 Temperature 97.4 F Pulse Rate 43 Respiratory 16 16 16 Rate Blood Pressure 117/24 (mmHg) O2 Sat by Pulse 74 Oximetry 05/07/18 05/07/18 05/07/18 11:51 11:57 12:18 Temperature Pulse Rate Respiratory 16 18 16 Rate Blood Pressure (mmHg) O2 Sat by Pulse Oximetry 05/07/18 05/07/18 13:15 14:00 Temperature Pulse Rate Respiratory 18 16 Rate Blood Pressure (mmHg) O2 Sat by Pulse Oximetry Oxygen Devices in Use Now: Nasal Cannula - 5L Appearance: NAD, laying in bed Ears/Nose/Mouth/Throat: Mucous Membranes Moist Skin: - - See skin note below Neurological: Alert and Oriented x 3 Result Diagrams: 05/11/18 08:00 05/11/18 08:00 Microbiology and Other Data: Microbiology 04/29/18 23:00 Nasal Screen MRSA (PCR) - Final Nasal Mrsa Not Detected Skin Deviation Note - Skin Deviation Findings Buttocks - Excoriated skin with superficial open areas. Right thigh - Area of purplish discoloration 5.5 cm x 2 cm. There is a larger area of induration, not measured. Left medial thigh - Areas of purplish discoloration 4.5 cm x 2 cm and 11.5 cm x 2 cm. There is a larger area of induration, not measured. Assessment/Plan: Ms. Wright is a 37 yo female with PMH significant for ESRD on PD, COPD with chronic hypoxic respiratory failure on 5L 02, IDDM, chronic pain on methadone, unconfirmed CAD and recent admission at the end of March for PNA/Sepsis who presented to the emergency room with complaints of bilateral thigh pain and was found with elevated CRP/WBC and increased troponin. 1. Buttocks with moisture associated skin injury. Suspect this is secondary to frequent loose stools. Apply barrier cream to allow for a layer of protection to the skin. Frequent turning and repositioning. Frequent checks for incontinence and provide incontinence care as needed. 2. Bilateral thighs with areas of induration and purplish discoloration. There is pain with palpation of these areas. There are no open areas. Differential diagnosis includes deep tissue injury, but in the setting of a patient with ESRD there is also concern for calciphylaxis. Discussed findings with admitting hospitalist and the induration to the thighs were not present on admission. Concern for calciphylaxis discussed with primary hospitalist covering today. 3. Diabetes Mellitus. HgA1C is 8.8. Continue to maintain good glycemic control. 4. Diet. Renal diet. 5. Code Status. Full Code. 6. Disposition. Disposition per primary medicine team. TIME SPENT: Time for this wound consultation was 30 minutes, and 20 minutes was spend with the patient and her discussing past medical history, assessing, measuring, and photographing wounds. Wound Problem/Plan Is Patient a Wound Clinic Patient: No Attending: Freda Prasad
[2018-05-07] MEDS ORDERED: EPOETIN ALFA-EPBX * 10,000 UNIT/ML VIAL SUBCUT ONE (14:30)
[2018-05-07 16:14] LABS: BUN/Creatinine Ratio 5.6 (8-20); EGFR African American 7.2 (>60); EGFR Non-African American 5.9 (>60); Potassium 3.6 mmol/L (3.5-5.0)
[2018-05-07 16:15] LABS: INR 4.08 (0.77-1.02)
[2018-05-07 16:18] LABS: Hematocrit 28 % (35-47); Hemoglobin 8.7 g/dl (12.0-16.0); Mean Corpuscular HGB Conc 31 g/dl (31-36); Mean Corpuscular Hemoglobin 28 pg (27-31); Mean Corpuscular Volume 90 fL (80-97); Mean Platelet Volume 8.8 fL (7.4-10.4); Platelet Count 427 10^3/ul (150-450); Red Blood Count 3.12 10^6/ul (4.00-5.40); Red Cell Distribution Width 17 % (10.5-15); White Blood Count 20.4 10^3/ul (3.5-10.8)
[2018-05-07] MEDS: Mupirocin 2% OINT* TUBE TOPICAL SCH (16:29)
[2018-05-07] MEDS ORDERED: SODIUM THIOSULFATE 12.5 GM IV SCH (18:00)
--- NOTE | 2018-05-07 18:58 | PN ---
Subjective Interval History: Pt with persistent pain over legs. Denies dyspnea or chest pain. Reports she would never want placement in a [facility]/S[facility] unless her boyfriend could live with her there. Lost access - pending midline. Given concern for calciphylaxis, consulted Derm who recommended surgery consult for wedge biopsy. Dr. Pedraza recommending sodium thiosulfate 25g IV, with close monitoring of BP and calcium levels. Will DC losartan. Family History: Unchanged from Admission Social History: Unchanged from Admission Past Medical History: Unchanged from Admission Objective Active Medications: Acetaminophen (Tylenol Tab*) 650 mg PO Q6H PRN PRN Reason: PAIN Al Hydrox/Mg Hydrox/Simethicone (Maalox Plus*) 30 ml PO Q6H PRN PRN Reason: DYSPEPSIA Last Admin: 05/07/18 05:22 Dose: 30 ml Albuterol (Ventolin 2.5 Mg/3 Ml Neb.Kaylynn*) 2.5 mg INH Q4HR PRN PRN Reason: SOB/WHEEZING Last Admin: 05/07/18 09:06 Dose: 2.5 mg Aspirin (Aspirin Ec Tab*) 81 mg PO DAILY [facility] Last Admin: 05/07/18 09:04 Dose: 81 mg Calcitriol (Calcitriol Soln 1 Mcg/Ml Oralsyr) 0.25 mcg FEED TUBE TID [facility] Last Admin: 05/07/18 14:01 Dose: 0.25 mcg Dextrose (D50w Syringe 50 Ml*) 12.5 gm IV PUSH .FOR FS < 60 - SS PRN PRN Reason: FS < 60 Gabapentin (Neurontin Cap(*)) 200 mg PO TID [facility] Last Admin: 05/07/18 14:00 Dose: 200 mg Hydromorphone HCl (Dilaudid Inj1s*) 1 mg IV Q4H PRN PRN Reason: PAIN - SEVERE Sodium Thiosulfate 25 gm/ (Sodium Chloride) 200 mls @ 200 mls/hr IV DAILY@1900 [facility] Insulin Glargine (Lantus(*)) 70 units SUBCUT 2100 [facility] Last Admin: 05/06/18 23:51 Dose: Not Given Insulin Human Lispro (Humalog*) 0 units SUBCUT ACHS [facility]; Protocol Last Admin: 05/07/18 16:37 Dose: Not Given Methadone HCl (Dolophine Tab*) 5 mg PO Q8H PRN PRN Reason: PAIN - MODERATE Last Admin: 05/07/18 10:29 Dose: 5 mg Mometasone Furoate/Formoterol Fumar (Dulera 200/5 Mdi*) 2 puff INH BID [facility]; Protocol Last Admin: 05/07/18 09:06 Dose: 2 puff Mupirocin (Bactroban 2 % Oint*) 1 applic TOPICAL DAILY [facility] Last Admin: 05/07/18 16:29 Dose: 1 applic Ondansetron HCl (Zofran Inj*) 4 mg IV Q6H PRN PRN Reason: NAUSEA Pantoprazole Sodium (Protonix Tab*) 40 mg PO DAILY [facility] Last Admin: 05/07/18 09:07 Dose: 40 mg Pharmacy Profile Note (Coumadin Per Pharmacy*) 1 note FOLLOW UP 1700 [facility] Last Admin: 05/07/18 17:26 Dose: Not Given Sertraline HCl (Zoloft*) 25 mg PO DAILY [facility] Last Admin: 05/07/18 09:04 Dose: 25 mg Vital Signs - 8 hr 05/07/18 05/07/18 05/07/18 11:28 11:51 11:57 Temperature 97.4 F Pulse Rate 43 Respiratory 16 16 18 Rate Blood Pressure 117/24 (mmHg) O2 Sat by Pulse 74 Oximetry 05/07/18 05/07/18 05/07/18 12:18 13:15 14:00 Temperature Pulse Rate Respiratory 16 18 16 Rate Blood Pressure (mmHg) O2 Sat by Pulse Oximetry 05/07/18 05/07/18 05/07/18 15:00 15:53 16:05 Temperature 98.2 F Pulse Rate 108 Respiratory 16 18 18 Rate Blood Pressure 89/39 (mmHg) O2 Sat by Pulse 87 Oximetry 05/07/18 05/07/18 16:37 18:09 Temperature Pulse Rate Respiratory 18 18 Rate Blood Pressure (mmHg) O2 Sat by Pulse Oximetry Oxygen Devices in Use Now: Nasal Cannula Appearance: not in acute distress, breathing comfortably while lying flat Ears/Nose/Mouth/Throat: Clear Oropharnyx Respiratory: - - clear anteriorly Skin: - - focal areas of induration with petichea over thighs, painful to touch Result Diagrams: 05/07/18 15:40 05/07/18 15:40 Assess/Plan/Problems-Billing Assessment: 37W with complicated medical history including ESRD on PD, PAD s/p femoral stents on warfarin, COPD with chronic resp failure and active smoking on 5L O2, IDDM, chronic pain on methadone, unconfirmed CAD, and recent admission at the end of March for PNA, returning with b/l thigh pain found with indurated raised lesions over thighs concerning for calciphylaxis now on sodium thiosulfate IV. With persistent leukocytosis (chronic), supratherapeutic INR. Hospital course complicated by respiratory failure likely from PNA requiring intubation, extubated on 05/05. - Patient Problems (1) Thigh pain Comment: Concern for calciphylaxis given physical exam findings. Derm and Renal following. Previously thought pain could be from severe PAD. - consult placed to surgery for biopsy - starting on sodium tiosulfate 25g IV daily - follow BP and calcium levels closely (2) ESRD on peritoneal dialysis Comment: On peritoneal dialysis. - cont PD, appreciate Dr. Pedraza following - cont calcitriol - monitor BMP (3) PAD (peripheral artery disease) Comment: s/p stent and complicated by DVTs. CT Aorta with run off this admission with moderate-severe R common femoral artery stenosis, severe b/l popliteal artery stenosis, near complete occlusion of distal L superficial fem artery stent. - cont to dose warfarin by INR (4) Acute respiratory failure with hypoxia Comment: She is back to her baseline O2 requirement of 5L continuously. Extubated 05/05. Thought to be from PNA and volume overload causing pulm congestion. - s/p 7 days of Zosyn - cont Dulera with albuterol prn (5) Chronic pain Comment: - continue methadone prn (home med) and gabapentin - can have low-dose hydromorphone prn for severe pain - STOP oxycodone - pending pain consult (6) IDDM (insulin dependent diabetes mellitus) Comment: HgbA1c 8.8% - cont basal/bolus insulin (7) Essential hypertension Comment: Low BPs this admission. - stop home losartan
[2018-05-07] MEDS: Sodium Thiosulfate 25 GM in 200 ML IV SCH (19:41)
[2018-05-07] MEDS: Insulin GLARGINE(*) 1 UNITS UNIT SUBCUT SCH (21:49)
[2018-05-08] MEDS: HYDROmorphone INJ1* 1 MG/ML SYRINGE IV PRN ×5 (00:37→21:08)
[2018-05-08] MEDS: Dextrose 50% Syringe 50 ML* 25 GM/50 ML SYRINGE IV PUSH PRN (01:29)
[2018-05-08] MEDS: Albuterol 2.5 MG/3 ML NEB.SOL* (0.083%) INH PRN ×3 (01:50→22:28)
[2018-05-08] MEDS: Methadone TAB* 5 MG PO PRN (03:02)
[2018-05-08 06:06] LABS: INR 3.69 (0.77-1.02)
[2018-05-08 06:10] LABS: Hematocrit 28 % (35-47); Hemoglobin 8.9 g/dl (12.0-16.0); Mean Corpuscular HGB Conc 31 g/dl (31-36); Mean Corpuscular Hemoglobin 28 pg (27-31); Mean Corpuscular Volume 89 fL (80-97); Mean Platelet Volume 8.8 fL (7.4-10.4); Platelet Count 457 10^3/ul (150-450); Red Blood Count 3.18 10^6/ul (4.00-5.40); Red Cell Distribution Width 17 % (10.5-15); White Blood Count 24.5 10^3/ul (3.5-10.8)
[2018-05-08] MEDS: oxyCODONE ORAL.SOLN* 5 MG/5 ML UDC PO SCH ×2 (06:12→12:05)
[2018-05-08 06:13] LABS: BUN/Creatinine Ratio 5.4 (8-20); EGFR African American 7.4 (>60); EGFR Non-African American 6.1 (>60); Magnesium 2.4 mg/dL (1.9-2.7); Phosphorus 5.6 mg/dL (2.5-5.0); Potassium 3.6 mmol/L (3.5-5.0)
[2018-05-08] MEDS: ORALSYR FEED TUBE SCH ×3 (08:59→20:58)
[2018-05-08] MEDS: CALCITRIOL FEED TUBE SCH ×3 (08:59→20:58)
[2018-05-08] MEDS: Insulin LISPRO* 1 UNITS UNIT SUBCUT SCH ×4 (09:00→20:56)
[2018-05-08] MEDS: Mupirocin 2% OINT* TUBE TOPICAL SCH (09:00)
[2018-05-08] MEDS: Pantoprazole TAB * 40 MG TAB PO SCH (09:01)
[2018-05-08] MEDS: Gabapentin CAP(*) 100 MG PO SCH ×3 (09:01→20:57)
[2018-05-08] MEDS: Sertraline* 25 MG TAB PO SCH (09:01)
[2018-05-08] MEDS: Aspirin EC TAB* 81 MG TAB.EC PO SCH (09:01)
[2018-05-08] MEDS: Mometasone/Formoter 200/5 MDI INH SCH ×2 (09:24→21:13)
[2018-05-08] MEDS ORDERED: HYDROmorphone INJ1* 1 MG/ML SYRINGE IV PRN (13:21)
[2018-05-08] MEDS: Lidocaine 2% JELLY* 6 ML JELLY TOPICAL SCH ×2 (15:07→19:39)
--- NOTE | 2018-05-08 17:15 | CONSULT ---
Consult Consult: INPATIENT PAIN CONSULTATION Margaux Wright is a 37 year old female with DM. She has ESRD as a result of her diabetes and hypertension and is on peritoneal dialysis. She has longstanding diabetic peripheral neuropathy and takes Methadone for that. She also has COPD and is on O2. She was admitted to the hospital on April 29 with extreme leg pain. She had an elevated WBC and an elevated CRP. She was started on IV antibiotics for putative pneumonia. She developed respiratory failure and was intubated. She was moved to the ICU. She had a CTA of her aorta with runoff and it showed significant arterial disease in her lower extremities. She had lesions over her thighs. It was felt she had calciphylaxis and she has been started on IV sodium thiosulfate. She has continued to report extreme pain in her thighs with hypersensitivity. She is on IV dilaudid 2 mg Q 4 PRN and Methadone 5 mg Q 8 PRN. I am asked to see her in consult. PAST MEDICAL HISTORY: DM, ESRD, Peripheral Neuropathy, COPD, HTN, CAD Allergies Allergy/AdvReac Type Severity Reaction Status Date / Time Adhesive Tape [Plastic Tape] Allergy Mild Blisters Verified 04/14/18 12:05 chlorhexidine Allergy Rash Verified 05/05/18 19:17 doxycycline Allergy Unknown Verified 04/14/18 12:05 Reaction Details erythromycin base Allergy See Comment Verified 04/14/18 12:05 heparin Allergy See Comment Verified 04/14/18 12:05 metoclopramide [From Reglan] Allergy Hives Verified 04/14/18 12:05 niacin Allergy Rash Verified 04/14/18 12:05 ropinirole [From Requip] Allergy Hives Verified 04/14/18 12:05 metronidazole [From Flagyl] AdvReac Nausea And Verified 04/21/18 13:15 Vomiting Sulfa (Sulfonamide AdvReac Vomiting Verified 04/21/18 13:15 Antibiotics) Current Medications Acetaminophen (Tylenol Tab*) 650 mg PO Q6H PRN PRN Reason: PAIN Al Hydrox/Mg Hydrox/Simethicone (Maalox Plus*) 30 ml PO Q6H PRN PRN Reason: DYSPEPSIA Last Admin: 05/07/18 05:22 Dose: 30 ml Albuterol (Ventolin 2.5 Mg/3 Ml Neb.Kaylynn*) 2.5 mg INH Q4HR PRN PRN Reason: SOB/WHEEZING Last Admin: 05/08/18 10:37 Dose: 2.5 mg Aspirin (Aspirin Ec Tab*) 81 mg PO DAILY [facility] Last Admin: 05/08/18 09:01 Dose: 81 mg Calcitriol (Calcitriol Soln 1 Mcg/Ml Oralsyr) 0.25 mcg FEED TUBE TID [facility] Last Admin: 05/08/18 13:37 Dose: 0.25 mcg Dextrose (D50w Syringe 50 Ml*) 12.5 gm IV PUSH .FOR FS < 60 - SS PRN PRN Reason: FS < 60 Last Admin: 05/08/18 01:29 Dose: 12.5 gm Gabapentin (Neurontin Cap(*)) 200 mg PO TID [facility] Last Admin: 05/08/18 13:37 Dose: 200 mg Hydromorphone HCl (Dilaudid Inj1s*) 2 mg IV Q4H PRN PRN Reason: SEVERE PAIN Last Admin: 05/08/18 13:37 Dose: 2 mg Sodium Thiosulfate 25 gm/ (Sodium Chloride) 200 mls @ 200 mls/hr IV DAILY@1900 [facility] Last Admin: 05/07/18 19:41 Dose: 200 mls/hr Insulin Human Lispro (Humalog*) 0 units SUBCUT ACHS [facility]; Protocol Last Admin: 05/08/18 16:57 Dose: Not Given Lidocaine HCl (Lidocaine 2% Jelly*) 1 applic TOPICAL TID [facility] Last Admin: 05/08/18 15:07 Dose: 1 applic Methadone HCl (Dolophine Tab*) 5 mg PO Q8H PRN PRN Reason: PAIN - MODERATE Last Admin: 05/08/18 03:02 Dose: 5 mg Mometasone Furoate/Formoterol Fumar (Dulera 200/5 Mdi*) 2 puff INH BID [facility]; Protocol Last Admin: 05/08/18 09:24 Dose: Not Given Mupirocin (Bactroban 2 % Oint*) 1 applic TOPICAL DAILY [facility] Last Admin: 05/08/18 09:00 Dose: 1 applic Ondansetron HCl (Zofran Inj*) 4 mg IV Q6H PRN PRN Reason: NAUSEA Pantoprazole Sodium (Protonix Tab*) 40 mg PO DAILY [facility] Last Admin: 05/08/18 09:01 Dose: 40 mg Pharmacy Profile Note (Coumadin Per Pharmacy*) 1 note FOLLOW UP 1700 [facility] Last Admin: 05/08/18 17:06 Dose: Not Given Sertraline HCl (Zoloft*) 25 mg PO DAILY [facility] Last Admin: 05/08/18 09:01 Dose: 25 mg SOCIAL HISTORY: Lives with her boyfriend and mother in a trailer in [place]. [address]. Denies alcohol or smoking. Vital Signs Temp Pulse Resp BP Pulse Ox 97.7 F 117 16 103/33 100 05/08/18 15:56 05/08/18 15:56 05/08/18 16:29 05/08/18 12:10 05/08/18 12:10 EXAM: LUNGS: Mostly clear HEART: reg rhythm ABDOMEN: Soft EXTREMITIES: Firm lesions over both thighs. NEUROLOGIC: Decreased sensation. Hard to test strength due to pain. ASSESSMENT: 1. Calciphylaxis 2. ESRD on PD PLAN: I think she might do well with routine Methadone. I will order 10 mg Q 8. Will adjust her IV dilaudid to 1.5 mg IV q3 PRN. I will follow. Thanks.
[2018-05-08] MEDS: Methadone TAB* 10 MG PO SCH (18:42)
--- NOTE | 2018-05-08 19:23 | PN ---
Subjective Interval History: Started on IV sodium thiosulfate yesterday. Tolerated treatment well. Still with severe pain in legs - seen by pain management. Holding warfarin tonight given high INR and likely skin biopsy tomorrow. Intact PTH resulted 51. Family History: Unchanged from Admission Social History: Unchanged from Admission Past Medical History: Unchanged from Admission Objective Active Medications: Acetaminophen (Tylenol Tab*) 650 mg PO Q6H PRN PRN Reason: PAIN Al Hydrox/Mg Hydrox/Simethicone (Maalox Plus*) 30 ml PO Q6H PRN PRN Reason: DYSPEPSIA Last Admin: 05/07/18 05:22 Dose: 30 ml Albuterol (Ventolin 2.5 Mg/3 Ml Neb.Kaylynn*) 2.5 mg INH Q4HR PRN PRN Reason: SOB/WHEEZING Last Admin: 05/08/18 10:37 Dose: 2.5 mg Aspirin (Aspirin Ec Tab*) 81 mg PO DAILY [facility] Last Admin: 05/08/18 09:01 Dose: 81 mg Calcitriol (Calcitriol Soln 1 Mcg/Ml Oralsyr) 0.25 mcg FEED TUBE TID [facility] Last Admin: 05/08/18 13:37 Dose: 0.25 mcg Dextrose (D50w Syringe 50 Ml*) 12.5 gm IV PUSH .FOR FS < 60 - SS PRN PRN Reason: FS < 60 Last Admin: 05/08/18 01:29 Dose: 12.5 gm Gabapentin (Neurontin Cap(*)) 200 mg PO TID [facility] Last Admin: 05/08/18 13:37 Dose: 200 mg Hydromorphone HCl (Dilaudid Inj1s*) 1.5 mg IV Q3H PRN PRN Reason: SEVERE PAIN Last Admin: 05/08/18 18:07 Dose: 1.5 mg Sodium Thiosulfate 25 gm/ (Sodium Chloride) 200 mls @ 200 mls/hr IV DAILY@1900 [facility] Last Admin: 05/07/18 19:41 Dose: 200 mls/hr Insulin Human Lispro (Humalog*) 0 units SUBCUT ACHS [facility]; Protocol Last Admin: 05/08/18 16:57 Dose: Not Given Lidocaine HCl (Lidocaine 2% Jelly*) 1 applic TOPICAL TID [facility] Last Admin: 05/08/18 15:07 Dose: 1 applic Methadone HCl (Dolophine Tab*) 10 mg PO Q8H [facility] Last Admin: 05/08/18 18:42 Dose: 10 mg Mometasone Furoate/Formoterol Fumar (Dulera 200/5 Mdi*) 2 puff INH BID [facility]; Protocol Last Admin: 05/08/18 09:24 Dose: Not Given Mupirocin (Bactroban 2 % Oint*) 1 applic TOPICAL DAILY [facility] Last Admin: 05/08/18 09:00 Dose: 1 applic Ondansetron HCl (Zofran Inj*) 4 mg IV Q6H PRN PRN Reason: NAUSEA Pantoprazole Sodium (Protonix Tab*) 40 mg PO DAILY [facility] Last Admin: 05/08/18 09:01 Dose: 40 mg Pharmacy Profile Note (Coumadin Per Pharmacy*) 1 note FOLLOW UP 1700 [facility] Last Admin: 05/08/18 17:06 Dose: Not Given Sertraline HCl (Zoloft*) 25 mg PO DAILY [facility] Last Admin: 05/08/18 09:01 Dose: 25 mg Vital Signs - 8 hr 05/08/18 05/08/18 05/08/18 11:39 12:05 12:10 Temperature Pulse Rate 118 Respiratory 16 18 16 Rate Blood Pressure 103/33 (mmHg) O2 Sat by Pulse 100 Oximetry 05/08/18 05/08/18 05/08/18 12:36 13:37 14:06 Temperature Pulse Rate Respiratory 18 18 18 Rate Blood Pressure (mmHg) O2 Sat by Pulse Oximetry 05/08/18 05/08/18 05/08/18 15:56 16:29 18:07 Temperature 97.7 F Pulse Rate 117 Respiratory 20 16 16 Rate Blood Pressure (mmHg) O2 Sat by Pulse Oximetry 05/08/18 18:42 Temperature Pulse Rate Respiratory 18 Rate Blood Pressure (mmHg) O2 Sat by Pulse Oximetry Oxygen Devices in Use Now: Nasal Cannula Appearance: not in acute distress, nontoxic, conversant; partner Moreno at bedside helping to clean patient Ears/Nose/Mouth/Throat: Mucous Membranes Moist Respiratory: - - clear anteriorly Cardiovascular: RRR Abdominal: NL Sounds; No Tenderness; No Distention Skin: - - LE indurated violaceous rash unchanged Neurological: Alert and Oriented x 3 Result Diagrams: 05/08/18 05:10 05/08/18 05:10 Microbiology and Other Data: Microbiology 03/05/19 23:00 Nasal Screen MRSA (PCR) - Final Nasal Mrsa Not Detected Assess/Plan/Problems-Billing Assessment: 37W with complicated medical history including ESRD on PD, PAD s/p femoral stents on warfarin, COPD with chronic resp failure and active smoking on 5L O2, IDDM, chronic pain on methadone, unconfirmed CAD, and recent admission at the end of March for PNA, returning with b/l thigh pain found with indurated raised lesions over thighs concerning for calciphylaxis now on sodium thiosulfate IV. With persistent leukocytosis (chronic), supratherapeutic INR. Hospital course complicated by respiratory failure likely from PNA requiring intubation, extubated on 05/05. - Patient Problems (1) Thigh pain Comment: Concern for calciphylaxis given physical exam findings. Derm and Renal following. Previously thought pain could be from severe PAD. - consult placed to surgery for biopsy - cont sodium tiosulfate 25g IV daily (05/07 - ) - follow BP and calcium levels closely (2) Chronic pain Comment: - appreciate consult from Dr. Lion - home methadone increased to 10mg q8h prn - rescue with hydromorphone 1.5mg IV q3h prn - cont home gabapentin (3) ESRD on peritoneal dialysis Comment: On peritoneal dialysis. - cont PD, appreciate Dr. Pedraza following - cont calcitriol - monitor BMP (4) PAD (peripheral artery disease) Comment: s/p stent and complicated by DVTs. CT Aorta with run off this admission with moderate-severe R common femoral artery stenosis, severe b/l popliteal artery stenosis, near complete occlusion of distal L superficial fem artery stent. - cont to dose warfarin by INR (5) Acute respiratory failure with hypoxia Comment: She is back to her baseline O2 requirement of 5L continuously. Extubated 05/05. Thought to be from PNA and volume overload causing pulm congestion. - s/p 7 days of Zosyn - cont Dulera with albuterol prn (6) IDDM (insulin dependent diabetes mellitus) Comment: HgbA1c 8.8% - cont basal/bolus insulin (7) Essential hypertension Comment: Low BPs this admission. - stop home losartan
[2018-05-08] MEDS: Sodium Thiosulfate 25 GM in 200 ML IV SCH (20:16)
[2018-05-09] MEDS: HYDROmorphone INJ1* 1 MG/ML SYRINGE IV PRN ×6 (00:18→21:31)
[2018-05-09] MEDS: Methadone TAB* 10 MG PO SCH ×3 (02:13→19:25)
[2018-05-09] MEDS: Ondansetron INJ* 2 MG/ML VIAL IV PRN ×2 (03:57→22:26)
[2018-05-09 05:43] LABS: INR 2.87 (0.77-1.02)
[2018-05-09 05:44] LABS: Hematocrit 25 % (33-41); Hemoglobin 7.9 g/dL (12.0-16.0); Mean Corpuscular HGB Conc 31 g/dL (31-36); Mean Corpuscular Hemoglobin 28 pg (27-31); Mean Corpuscular Volume 89 fL (80-97); Mean Platelet Volume 8.6 fL (7.4-10.4); Platelet Count 413 10^3/uL (150-450); Red Blood Count 2.86 10^6 /uL (3.70-4.87); Red Cell Distribution Width 17 % (10.5-15)
[2018-05-09 06:04] LABS: BUN/Creatinine Ratio 5.7 (8-20); Calcium 9.2 mg/dL (8.6-10.3); EGFR African American 7.7 (>60); EGFR Non-African American 6.3 (>60); Magnesium 2.2 mg/dL (1.9-2.7); Phosphorus 5.9 mg/dL (2.5-5.0); Potassium 3.7 mmol/L (3.5-5.0)
[2018-05-09] MEDS: Aspirin EC TAB* 81 MG TAB.EC PO SCH (09:09)
[2018-05-09] MEDS: Sertraline* 25 MG TAB PO SCH (09:09)
[2018-05-09] MEDS: Lidocaine 2% JELLY* 6 ML JELLY TOPICAL SCH ×3 (09:10→20:20)
[2018-05-09] MEDS: Gabapentin CAP(*) 100 MG PO SCH ×3 (09:11→20:20)
[2018-05-09] MEDS: Pantoprazole TAB * 40 MG TAB PO SCH (09:11)
[2018-05-09] MEDS: CALCITRIOL FEED TUBE SCH ×2 (09:12→17:46)
[2018-05-09] MEDS: ORALSYR FEED TUBE SCH ×2 (09:12→17:46)
[2018-05-09] MEDS: Insulin LISPRO* 1 UNITS UNIT SUBCUT SCH ×4 (09:29→22:58)
[2018-05-09] MEDS: Albuterol 2.5 MG/3 ML NEB.SOL* (0.083%) INH PRN ×2 (10:35→21:49)
[2018-05-09] MEDS: Mometasone/Formoter 200/5 MDI INH SCH ×2 (10:36→20:06)
[2018-05-09] MEDS: Mupirocin 2% OINT* TUBE TOPICAL SCH (11:17)
[2018-05-09] MEDS ORDERED: ORALSYR PO SCH (14:00)
[2018-05-09] MEDS ORDERED: CALCITRIOL PO SCH (14:00)
--- NOTE | 2018-05-09 15:05 | CONS ---
CC: primary care doctor; Dr. Luis Marrufo * SURGICAL CONSULTATION REPORT: DATE OF CONSULT: 05/09/18 HISTORY OF PRESENT ILLNESS: I was contacted by the hospitalist service to evaluate Ms. Margaux Wright for possible biopsy to rule out calciphylaxis or rule in calciphylaxis. The patient has been admitted with significant leg pain , led to some respiratory compromise requiring intubation and ICU care. The patient ultimately came out to the floor where she has been followed. She continues to have significant pain at the legs bilaterally, anterior thighs, and treated for the possibility of calciphylaxis with sodium thiosulfate. Leg lesions were discussed with the dermatology group locally, who recommended biopsy. PAST MEDICAL HISTORY: Reviewed. PHYSICAL EXAM: The patient is afebrile. Heart rate is variable between 80s and 120. Mean arterial blood pressure has been in the 50s. The patient is sleepy, but does ask questions and answers appropriately. Bilateral lower extremities reveal hyperpigmented, indurated areas on the anterior thighs that are significantly tender to the touch without crepitance and without cellulitis. No open wounds. DIAGNOSTIC STUDIES/LAB DATA: Labs reviewed show persistently elevated white blood cell count, INR of 2.9 today which shows improvement. No imaging available. IMPRESSION: End-stage renal disease. The patient with painful nonulcerating leg lesions that possibly could be consistent with calciphylaxis with the recommendation by the current providers to have the patient undergo biopsy to establish diagnosis. I believe this is a strong likelihood of diagnosis and agree with the current treatment options. This would require a trip to the operating room for a biopsy under anesthesia as these are very painful and deep tissue biopsy is required. I discussed with the patient the risks of bleeding as well as infection and I believe we should not perform this procedure until the patient' s INR is normalized. We will hold off the procedure until Saturday or Saturday next week when we see INR normalizes. [id number]/[facility] #: [id number] VIRI
--- NOTE | 2018-05-09 18:27 | PN ---
Subjective Interval History: Pt with improvement in pain control. She is motivated to get out of bed to chair today. She states that she would be amenable to SNF or [facility] if her cat could visit - seems more amenable to exploring this option. Unsure if these facilities could administer IV sodium thiosulfate. Family History: Unchanged from Admission Social History: Unchanged from Admission Past Medical History: Unchanged from Admission Objective Active Medications: Acetaminophen (Tylenol Tab*) 650 mg PO Q6H PRN PRN Reason: PAIN Al Hydrox/Mg Hydrox/Simethicone (Maalox Plus*) 30 ml PO Q6H PRN PRN Reason: DYSPEPSIA Last Admin: 05/07/18 05:22 Dose: 30 ml Albuterol (Ventolin 2.5 Mg/3 Ml Neb.Kaylynn*) 2.5 mg INH Q4HR PRN PRN Reason: SOB/WHEEZING Last Admin: 05/09/18 10:35 Dose: 2.5 mg Aspirin (Aspirin Ec Tab*) 81 mg PO DAILY [facility] Last Admin: 05/09/18 09:09 Dose: 81 mg Calcitriol (Calcitriol Soln 1 Mcg/Ml Oralsyr) 0.25 mcg PO TID [facility] Dextrose (D50w Syringe 50 Ml*) 12.5 gm IV PUSH .FOR FS < 60 - SS PRN PRN Reason: FS < 60 Last Admin: 05/08/18 01:29 Dose: 12.5 gm Gabapentin (Neurontin Cap(*)) 200 mg PO TID [facility] Last Admin: 05/09/18 14:35 Dose: 200 mg Hydromorphone HCl (Dilaudid Inj1s*) 1.5 mg IV Q3H PRN PRN Reason: SEVERE PAIN Last Admin: 05/09/18 14:35 Dose: 1.5 mg Sodium Thiosulfate 25 gm/ (Sodium Chloride) 200 mls @ 200 mls/hr IV DAILY@1900 [facility] Last Admin: 05/08/18 20:16 Dose: 200 mls/hr Insulin Human Lispro (Humalog*) 0 units SUBCUT ACHS [facility]; Protocol Last Admin: 05/09/18 17:59 Dose: Not Given Lidocaine HCl (Lidocaine 2% Jelly*) 1 applic TOPICAL TID [facility] Last Admin: 05/09/18 15:01 Dose: 1 applic Methadone HCl (Dolophine Tab*) 10 mg PO Q8H [facility] Last Admin: 05/09/18 09:08 Dose: 10 mg Mometasone Furoate/Formoterol Fumar (Dulera 200/5 Mdi*) 2 puff INH BID [facility]; Protocol Last Admin: 05/09/18 10:36 Dose: Not Given Mupirocin (Bactroban 2 % Oint*) 1 applic TOPICAL DAILY [facility] Last Admin: 05/09/18 11:17 Dose: Not Given Ondansetron HCl (Zofran Inj*) 4 mg IV Q6H PRN PRN Reason: NAUSEA Last Admin: 05/09/18 03:57 Dose: 4 mg Pantoprazole Sodium (Protonix Tab*) 40 mg PO DAILY [facility] Last Admin: 05/09/18 09:11 Dose: 40 mg Pharmacy Profile Note (Coumadin Per Pharmacy*) 1 note FOLLOW UP 1700 [facility] Last Admin: 05/09/18 17:34 Dose: Not Given Sertraline HCl (Zoloft*) 25 mg PO DAILY [facility] Last Admin: 05/09/18 09:09 Dose: 25 mg Vital Signs - 8 hr 05/09/18 05/09/18 05/09/18 10:37 11:15 11:18 Temperature 97.3 F Pulse Rate 79 120 Respiratory 18 22 16 Rate Blood Pressure (mmHg) O2 Sat by Pulse 99 94 Oximetry 05/09/18 05/09/18 05/09/18 14:35 15:27 17:58 Temperature 97.8 F Pulse Rate 99 Respiratory 16 20 16 Rate Blood Pressure 135/40 (mmHg) O2 Sat by Pulse 89 Oximetry Oxygen Devices in Use Now: Nasal Cannula Appearance: appears comfortable, Moreno at bedside comforting patient; she is friendly and conversant Respiratory: - - clear anteriorly Cardiovascular: RRR Abdominal: NL Sounds; No Tenderness; No Distention Skin: - - unchanged violaceous indurated plaque over thighs Result Diagrams: 05/09/18 05:10 05/09/18 05:10 Assess/Plan/Problems-Billing Assessment: 37W with complicated medical history including ESRD on PD, PAD s/p femoral stents on warfarin, COPD with chronic resp failure and active smoking on 5L O2, IDDM, chronic pain on methadone, unconfirmed CAD, and recent admission at the end of March for PNA, returning with b/l thigh pain found with indurated raised lesions over thighs concerning for calciphylaxis now on sodium thiosulfate IV. With persistent leukocytosis (chronic), supratherapeutic INR. Hospital course complicated by respiratory failure likely from PNA requiring intubation, extubated on 05/05. - Patient Problems (1) Thigh pain Comment: Concern for calciphylaxis given physical exam findings. Derm and Renal following. Previously thought pain could be from severe PAD. - consult placed to surgery for biopsy - will do when INR improves - cont sodium tiosulfate 25g IV daily (05/07 - ) - follow BP and calcium levels closely - appreciate dermatology recs (paper chart) (2) Chronic pain Comment: - appreciate consult from Dr. Lion - home methadone increased to 10mg q8h prn - rescue with hydromorphone 1.5mg IV q3h prn - cont home gabapentin (3) ESRD on peritoneal dialysis Comment: On peritoneal dialysis. - cont PD, appreciate Dr. Pedraza following - cont calcitriol - monitor BMP (4) PAD (peripheral artery disease) Comment: s/p stent and complicated by DVTs. CT Aorta with run off this admission with moderate-severe R common femoral artery stenosis, severe b/l popliteal artery stenosis, near complete occlusion of distal L superficial fem artery stent. - cont to dose warfarin by INR (5) Acute respiratory failure with hypoxia Comment: She is back to her baseline O2 requirement of 5L continuously. Extubated 05/05. Thought to be from PNA and volume overload causing pulm congestion. - s/p 7 days of Zosyn - cont Dulera with albuterol prn (6) IDDM (insulin dependent diabetes mellitus) Comment: HgbA1c 8.8% - cont basal/bolus insulin (7) Essential hypertension Comment: Low BPs this admission. - stop home losartan Status and Disposition: Remains admitted. Pt will need evaluation by PT for discharge planning. Will need to find plan for administering IV sodium thiosulfate after discharge.
[2018-05-09] MEDS: Sodium Thiosulfate 25 GM in 200 ML IV SCH (20:38)
[2018-05-09] MEDS ORDERED: Warfarin TAB(*) 2 MG PO ONE (22:00)
[2018-05-09] MEDS: CALCITRIOL PO SCH ×2 (22:28)
[2018-05-09] MEDS: ORALSYR PO SCH ×2 (22:28)
[2018-05-10] MEDS: HYDROmorphone INJ1* 1 MG/ML SYRINGE IV PRN ×6 (00:46→20:30)
[2018-05-10] MEDS: Methadone TAB* 10 MG PO SCH ×4 (03:20→22:01)
[2018-05-10] MEDS: Ondansetron INJ* 2 MG/ML VIAL IV PRN ×3 (05:16→20:55)
[2018-05-10 05:35] LABS: Hematocrit 26 % (33-41); Mean Corpuscular HGB Conc 31 g/dL (31-36); Mean Corpuscular Hemoglobin 27 pg (27-31); Mean Corpuscular Volume 88 fL (80-97); Mean Platelet Volume 7.9 fL (7.4-10.4); Platelet Count 523 10^3/uL (150-450); Red Blood Count 2.92 10^6 /uL (3.70-4.87); Red Cell Distribution Width 18 % (10.5-15)
[2018-05-10 05:52] LABS: Magnesium 2.1 mg/dL (1.9-2.7); Phosphorus 6.4 mg/dL (2.5-5.0)
[2018-05-10] MEDS: Mometasone/Formoter 200/5 MDI INH SCH ×2 (08:05→20:27)
[2018-05-10] MEDS: Gabapentin CAP(*) 100 MG PO SCH ×3 (08:30→20:27)
[2018-05-10] MEDS: Aspirin EC TAB* 81 MG TAB.EC PO SCH (08:30)
[2018-05-10] MEDS: Insulin LISPRO* 1 UNITS UNIT SUBCUT SCH ×4 (08:30→20:55)
[2018-05-10] MEDS: Sertraline* 25 MG TAB PO SCH (08:30)
[2018-05-10] MEDS: Pantoprazole TAB * 40 MG TAB PO SCH (08:30)
[2018-05-10] MEDS: ORALSYR PO SCH ×2 (08:31→14:06)
[2018-05-10] MEDS: CALCITRIOL PO SCH ×2 (08:31→14:06)
[2018-05-10] MEDS: Mupirocin 2% OINT* TUBE TOPICAL SCH (08:46)
[2018-05-10] MEDS: Lidocaine 2% JELLY* 6 ML JELLY TOPICAL SCH ×3 (08:46→22:00)
[2018-05-10 08:58] LABS: INR 1.82 (0.77-1.02)
[2018-05-10 09:07] LABS: BUN/Creatinine Ratio 5.8 (8-20); Calcium 9.3 mg/dL (8.6-10.3); EGFR African American 8.3 (>60); EGFR Non-African American 6.9 (>60); Potassium 3.8 mmol/L (3.5-5.0)
[2018-05-10] MEDS: Albuterol 2.5 MG/3 ML NEB.SOL* (0.083%) INH PRN ×2 (14:50→21:48)
--- NOTE | 2018-05-10 15:29 | PN ---
Progress Note - Progress Note Date of Service: 05/10/18 Note: INPATIENT PAIN-PROGRESS NOTE I met with Margaux. She seems more comfortable on routine Methadone but she still notes pain is severe, though she does allow she is in slightly less pain than she was on . She hopes to have biopsy on Saturday. She was able to transfer with a walker and CG/min assist. Current Medications Acetaminophen (Tylenol Tab*) 650 mg PO Q6H PRN PRN Reason: PAIN Last Admin: 05/10/18 14:04 Dose: 650 mg Al Hydrox/Mg Hydrox/Simethicone (Maalox Plus*) 30 ml PO Q6H PRN PRN Reason: DYSPEPSIA Last Admin: 05/07/18 05:22 Dose: 30 ml Albuterol (Ventolin 2.5 Mg/3 Ml Neb.Kaylynn*) 2.5 mg INH Q4HR PRN PRN Reason: SOB/WHEEZING Last Admin: 05/10/18 14:50 Dose: 2.5 mg Aspirin (Aspirin Ec Tab*) 81 mg PO DAILY [facility] Last Admin: 05/10/18 08:30 Dose: 81 mg Calcitriol (Calcitriol Soln 1 Mcg/Ml [place]) 0.25 mcg PO TID [facility] Last Admin: 05/10/18 14:06 Dose: 0.25 mcg Dextrose (D50w Syringe 50 Ml*) 12.5 gm IV PUSH .FOR FS < 60 - SS PRN PRN Reason: FS < 60 Last Admin: 05/08/18 01:29 Dose: 12.5 gm Gabapentin (Neurontin Cap(*)) 200 mg PO TID [facility] Last Admin: 05/10/18 14:05 Dose: 200 mg Hydromorphone HCl (Dilaudid Inj1s*) 1.5 mg IV Q3H PRN PRN Reason: SEVERE PAIN Last Admin: 05/10/18 15:06 Dose: 1.5 mg Sodium Thiosulfate 25 gm/ (Sodium Chloride) 200 mls @ 200 mls/hr IV DAILY@1900 [facility] Last Admin: 05/09/18 20:38 Dose: 200 mls/hr Insulin Human Lispro (Humalog*) 0 units SUBCUT ACHS [facility]; Protocol Last Admin: 05/10/18 12:00 Dose: Not Given Lidocaine HCl (Lidocaine 2% Jelly*) 1 applic TOPICAL TID [facility] Last Admin: 05/10/18 14:05 Dose: 1 applic Methadone HCl (Dolophine Tab*) 10 mg PO Q8H [facility] Last Admin: 05/10/18 09:48 Dose: 10 mg Mometasone Furoate/Formoterol Fumar (Dulera 200/5 Mdi*) 2 puff INH BID [facility]; Protocol Last Admin: 05/10/18 08:05 Dose: 2 puff Mupirocin (Bactroban 2 % Oint*) 1 applic TOPICAL DAILY [facility] Last Admin: 05/10/18 08:46 Dose: 1 applic Ondansetron HCl (Zofran Inj*) 4 mg IV Q6H PRN PRN Reason: NAUSEA Last Admin: 05/10/18 12:09 Dose: 4 mg Pantoprazole Sodium (Protonix Tab*) 40 mg PO DAILY [facility] Last Admin: 05/10/18 08:30 Dose: 40 mg Pharmacy Profile Note (Coumadin Per Pharmacy*) 1 note FOLLOW UP 1700 [facility] Last Admin: 05/09/18 17:34 Dose: Not Given Sertraline HCl (Zoloft*) 25 mg PO DAILY [facility] Last Admin: 05/10/18 08:30 Dose: 25 mg Warfarin Sodium (Coumadin Tab(*)) 2 mg PO 1700 ONE Stop: 05/10/18 17:01 Vital Signs Temp Pulse Resp BP Pulse Ox 97.3 F 126 16 133/59 98 05/10/18 12:01 05/10/18 14:50 05/10/18 15:06 05/10/18 12:01 05/10/18 14:50 EXAM: LUNGS: Clear HEART: regular ABDOMEN: Soft EXTREMITIES: Lesions on legs about the same ASSESSMENT: 1. Calciphylaxis 2. ESRD on PD PLAN: Increase Methadone to 10 mg PO Q6H and leave IV Dilaudid where it is. I' ll check to see how she is doing Saturday
--- NOTE | 2018-05-10 16:07 | PN ---
Subjective Date of Service: 05/10/18 Interval History: Pt reports feeling very tired.c/o severe pain in the thighs Family History: Unchanged from Admission Social History: Unchanged from Admission Past Medical History: Unchanged from Admission Objective Active Medications: Acetaminophen (Tylenol Tab*) 650 mg PO Q6H PRN PRN Reason: PAIN Last Admin: 05/10/18 14:04 Dose: 650 mg Al Hydrox/Mg Hydrox/Simethicone (Maalox Plus*) 30 ml PO Q6H PRN PRN Reason: DYSPEPSIA Last Admin: 05/07/18 05:22 Dose: 30 ml Albuterol (Ventolin 2.5 Mg/3 Ml Neb.Kaylynn*) 2.5 mg INH Q4HR PRN PRN Reason: SOB/WHEEZING Last Admin: 05/10/18 14:50 Dose: 2.5 mg Aspirin (Aspirin Ec Tab*) 81 mg PO DAILY [facility] Last Admin: 05/10/18 08:30 Dose: 81 mg Dextrose (D50w Syringe 50 Ml*) 12.5 gm IV PUSH .FOR FS < 60 - SS PRN PRN Reason: FS < 60 Last Admin: 05/08/18 01:29 Dose: 12.5 gm Gabapentin (Neurontin Cap(*)) 200 mg PO TID [facility] Last Admin: 05/10/18 14:05 Dose: 200 mg Hydromorphone HCl (Dilaudid Inj1s*) 1.5 mg IV Q3H PRN PRN Reason: SEVERE PAIN Last Admin: 05/10/18 15:06 Dose: 1.5 mg Sodium Thiosulfate 25 gm/ (Sodium Chloride) 200 mls @ 200 mls/hr IV DAILY@1900 [facility] Last Admin: 05/09/18 20:38 Dose: 200 mls/hr Insulin Human Lispro (Humalog*) 0 units SUBCUT ACHS [facility]; Protocol Last Admin: 05/10/18 12:00 Dose: Not Given Lidocaine HCl (Lidocaine 2% Jelly*) 1 applic TOPICAL TID [facility] Last Admin: 05/10/18 14:05 Dose: 1 applic Methadone HCl (Dolophine Tab*) 10 mg PO Q6H [facility] Mometasone Furoate/Formoterol Fumar (Dulera 200/5 Mdi*) 2 puff INH BID [facility]; Protocol Last Admin: 03/16/19 08:05 Dose: 2 puff Mupirocin (Bactroban 2 % Oint*) 1 applic TOPICAL DAILY [facility] Last Admin: 05/10/18 08:46 Dose: 1 applic Ondansetron HCl (Zofran Inj*) 4 mg IV Q6H PRN PRN Reason: NAUSEA Last Admin: 05/10/18 12:09 Dose: 4 mg Pantoprazole Sodium (Protonix Tab*) 40 mg PO DAILY [facility] Last Admin: 05/10/18 08:30 Dose: 40 mg Sertraline HCl (Zoloft*) 25 mg PO DAILY [facility] Last Admin: 05/10/18 08:30 Dose: 25 mg Sevelamer Carbonate (Renvela Tab*) 800 mg PO TID [facility] Vital Signs - 8 hr 05/10/18 05/10/18 05/10/18 08:05 08:30 08:31 Temperature Pulse Rate 121 Respiratory 22 20 20 Rate Blood Pressure (mmHg) O2 Sat by Pulse 100 Oximetry 05/10/18 05/10/18 05/10/18 08:36 09:37 09:48 Temperature 97.6 F Pulse Rate 71 Respiratory 16 20 20 Rate Blood Pressure 139/51 (mmHg) O2 Sat by Pulse 77 Oximetry 05/10/18 05/10/18 05/10/18 10:27 12:00 12:01 Temperature 97.3 F Pulse Rate 111 Respiratory 16 20 16 Rate Blood Pressure 133/59 (mmHg) O2 Sat by Pulse 87 Oximetry 05/10/18 05/10/18 05/10/18 14:05 14:50 15:06 Temperature Pulse Rate 126 Respiratory 16 22 16 Rate Blood Pressure (mmHg) O2 Sat by Pulse 98 Oximetry Oxygen Devices in Use Now: High Flow Nasal Cannula, Large Volume Nebulizer Eyes: No Scleral Icterus Neck: NL Appearance and Movements; NL JVP Respiratory: Symmetrical Chest Expansion and Respiratory Effort Cardiovascular: NL Sounds; No Murmurs; No JVD Abdominal: NL Sounds; No Tenderness; No Distention Extremities: - - non ulcerating rash purple noted on bilateral thighs Skin: - - described above Neurological: Alert and Oriented x 3 Result Diagrams: 05/10/18 05:17 05/10/18 05:17 Microbiology and Other Data: Microbiology 04/29/18 23:00 Nasal Screen MRSA (PCR) - Final Nasal Mrsa Not Detected Assess/Plan/Problems-Billing Assessment: 37W with complicated medical history including ESRD on PD, PAD s/p femoral stents on warfarin, COPD with chronic resp failure and active smoking on 5L O2, IDDM, chronic pain on methadone, unconfirmed CAD, and recent admission at the end of March for PNA, returning with b/l thigh pain found with indurated raised lesions over thighs concerning for calciphylaxis now on sodium thiosulfate IV. With persistent leukocytosis (chronic), supratherapeutic INR. Hospital course complicated by respiratory failure likely from PNA requiring intubation, extubated on 05/05. - Patient Problems (1) Thigh pain Current Visit: Yes Status: Acute Comment: Concern for calciphylaxis given physical exam findings. -Previously thought pain could be from severe PAD. -Seen by Dr Salinas.Plan for biopsy on Sat/Sat when inr normalizes - cont sodium tiosulfate 25g IV daily (05/07 - ) - appreciate dermatology recs (paper chart) -will hold coumadin and follow inr (2) Calciphylaxis Current Visit: Yes Status: Acute Code(s): E83.59 - OTHER DISORDERS OF CALCIUM METABOLISM SNOMED Code(s): 126789413 Comment: plan per above biopsy pending sodium thiosulfate started Will stop vit d analogs, calcitriol Coumadin predisposes and risk fac for calciphylaxis coumadin necrosis also in differential will wait on biopsy poor candidate for coumadin if biopsy pos would benefit from transitioning to noac/ eliquis will check pth,ca phos will add sevelemer ( non ca phos binder) will stop calcitriol if pth >300, can start cinacalcet need to discuss with vascular about biopsy about switching to eliquis. (3) Chronic pain Current Visit: Yes Status: Acute Code(s): G89.29 - OTHER CHRONIC PAIN SNOMED Code(s): 28609421 Comment: - appreciate consult from Dr. Lion - home methadone increased to 10mg q8h prn - rescue with hydromorphone 1.5mg IV q3h prn - cont home gabapentin (4) ESRD on peritoneal dialysis Current Visit: Yes Status: Chronic Priority: High Code(s): N18.6 - END STAGE RENAL DISEASE; Z99.2 - DEPENDENCE ON RENAL DIALYSIS SNOMED Code(s): 64698176 Comment: On peritoneal dialysis. - cont PD, -plan per above - monitor BMP (5) IDDM (insulin dependent diabetes mellitus) Current Visit: Yes Status: Chronic Priority: High Code(s): E11.9 - TYPE 2 DIABETES MELLITUS WITHOUT COMPLICATIONS; Z79.4 - [employer] (CURRENT) USE OF INSULIN SNOMED Code(s): 93585191 Comment: HgbA1c 8.8% - cont basal/bolus insulin (6) PAD (peripheral artery disease) Current Visit: Yes Status: Chronic Code(s): I73.9 - PERIPHERAL VASCULAR DISEASE, UNSPECIFIED SNOMED Code(s): 461663447 Comment: s/p stent and complicated by DVTs. CT Aorta with run off this admission with moderate-severe R common femoral artery stenosis, severe b/l popliteal artery stenosis, near complete occlusion of distal L superficial fem artery stent. -coumadin held for biopsy -consider transition to noac if calciphylaxis pos Status and Disposition: Remains admitted. Pt will need evaluation by PT for discharge planning. Will need to find plan for administering IV sodium thiosulfate after discharge.
[2018-05-10] MEDS ORDERED: Warfarin TAB(*) 2 MG PO ONE (17:00)
[2018-05-10] MEDS: Sodium Thiosulfate 25 GM in 200 ML IV SCH ×2 (19:31→20:55)
[2018-05-10] MEDS: Sevelamer TAB* 800 MG PO SCH (20:28)
--- NOTE | 2018-05-10 23:36 | PN ---
Hospitalist Progress Note Date of Service: 05/10/18 I was called for an episode of BRBPR. Blood is mixed in with stool and noted by RN to be bright red, unable to quantify. BP is 118/52, HR is 125 and has been in the 120s all day. No abdominal pain reported. A/P: Likely lower GI bleed in the setting of anticoagulation Hemodynamically stable with good IV access (has a midline and a 20g); hold off on fluids since bp is stable and esrd Check stat CBC, will transfuse for goal >8 (h/o CAD) Can consider ffp and vitamin K if hgb dropping Already on protonix Coumadin already on hold (for biopsy), am INR was 1.8.
[2018-05-11 00:13] LABS: Hematocrit 23 % (33-41); Hemoglobin 7.5 g/dL (12.0-16.0); Mean Corpuscular HGB Conc 32 g/dL (31-36); Mean Corpuscular Hemoglobin 28 pg (27-31); Mean Corpuscular Volume 89 fL (80-97); Platelet Count 491 10^3/uL (150-450); Red Blood Count 2.63 10^6 /uL (3.70-4.87); Red Cell Distribution Width 18 % (10.5-15); White Blood Count 18.9 10^3/uL (3.5-10.8)
--- NOTE | 2018-05-11 01:14 | PN ---
Hospitalist Progress Note Date of Service: 05/11/18 Called for hemoptysis. I came to see Margaux, she is indeed coughing up bright red blood and blood streaked sputum with clots. She otherwise had no complaints. Denies shortness of breath, chest pain. She had had a nosebleed earlier in the evening. BP is 142/80s, HR 120s. Alert, no distress, breathing comfortably. Lungs have a few scattered wheezes, good air movement. Tachycardic. A: I suspect the hemoptysis is related to the nosebleed a few hours ago, but given her history and comorbidities, certainly concern for a pulmonary or cardiac origin. will get a stat cxr to further evaluate. P: stat CXR, protonix, afrin, 1U PRBCs, 1U FFP. Will transfer to ICU for more frequent vitals and ability for bronch/endoscopy if she decompensates
[2018-05-11] MEDS: Oxymetazoline 0.05% NASAL SPR* 15 ML BTL BOTH NARES SCH ×3 (01:41→20:58)
[2018-05-11] MEDS: Pantoprazole IV* 40 MG IV SCH ×2 (01:42→07:51)
[2018-05-11] MEDS: HYDROmorphone INJ1* 1 MG/ML SYRINGE IV PRN ×6 (01:42→21:08)
[2018-05-11] MEDS: Methadone TAB* 10 MG PO SCH ×4 (03:24→21:17)
[2018-05-11] MEDS: Ondansetron INJ* 2 MG/ML VIAL IV PRN ×3 (03:57→21:15)
[2018-05-11] MEDS: Albuterol 2.5 MG/3 ML NEB.SOL* (0.083%) INH PRN ×2 (04:02→13:17)
[2018-05-11] MEDS: Gabapentin CAP(*) 100 MG PO SCH ×3 (07:54→21:17)
[2018-05-11] MEDS: Aspirin EC TAB* 81 MG TAB.EC PO SCH (07:54)
[2018-05-11] MEDS: Sertraline* 25 MG TAB PO SCH (07:54)
[2018-05-11] MEDS: Mometasone/Formoter 200/5 MDI INH SCH ×2 (08:08→19:25)
[2018-05-11] MEDS: Insulin LISPRO* 1 UNITS UNIT SUBCUT SCH ×4 (08:12→21:51)
[2018-05-11 08:16] LABS: ABS Basophils 0.1 10^3/ul (0-0.2); ABS Eosinophils 0.1 10^3/ul (0-0.6); ABS Monocytes 0.8 10^3/ul (0-0.8); ABS Nucleated RBC 0 10^3/ul; Eosinophil % 0.5 %; Hematocrit 25 % (33-41); Hemoglobin 7.8 g/dL (12.0-16.0); Lymphocyte % 4.9 %; Mean Corpuscular HGB Conc 32 g/dL (31-36); Mean Corpuscular Hemoglobin 28 pg (27-31); Mean Corpuscular Volume 88 fL (80-97); Mean Platelet Volume 8.2 fL (7.4-10.4); Nucleated Red Blood Cells % 0; Platelet Count 508 10^3/uL (150-450); Red Blood Count 2.78 10^6 /uL (3.70-4.87); Red Cell Distribution Width 17 % (10.5-15); White Blood Count 19.9 10^3/uL (3.5-10.8)
[2018-05-11 08:23] LABS: INR 1.55 (0.77-1.02)
[2018-05-11 08:30] LABS: BUN/Creatinine Ratio 6.5 (8-20); Calcium 9.3 mg/dL (8.6-10.3); EGFR Non-African American 7.4 (>60); Magnesium 2.1 mg/dL (1.9-2.7); Phosphorus 7.4 mg/dL (2.5-5.0); Potassium 3.8 mmol/L (3.5-5.0)
[2018-05-11] MEDS: Sevelamer TAB* 800 MG PO SCH ×2 (09:59→14:26)
[2018-05-11] MEDS: Lidocaine 2% JELLY* 6 ML JELLY TOPICAL SCH ×3 (10:00→21:42)
[2018-05-11] MEDS: Mupirocin 2% OINT* TUBE TOPICAL SCH (11:05)
[2018-05-11] MEDS ORDERED: PROCHLORPERAZINE INJ 5 MG/ML 2 ML VIAL IV ONE (11:08)
[2018-05-11] MEDS: Pantoprazole* 80 mg IN NS 80 MG/250 ML BAG IVPB SCH (12:46)
--- NOTE | 2018-05-11 15:17 | PN ---
Subjective Date of Service: 05/11/18 Interval History: Transferred to ICU overnight. Rectal bleeding and then noted to have hemoptysis.On talking to the pt reports that she vomitted blood mixed with food and was not coughing up blood.Reports that she has been nauseous.Had blood in stool but pt thinks it was sec to severe constipation.Denies any abd pain this am except feeling nauseous Family History: Unchanged from Admission Social History: Unchanged from Admission Past Medical History: Unchanged from Admission Objective Active Medications: Acetaminophen (Tylenol Tab*) 650 mg PO Q6H PRN PRN Reason: PAIN Last Admin: 05/10/18 14:04 Dose: 650 mg Al Hydrox/Mg Hydrox/Simethicone (Maalox Plus*) 30 ml PO Q6H PRN PRN Reason: DYSPEPSIA Last Admin: 05/07/18 05:22 Dose: 30 ml Albuterol (Ventolin 2.5 Mg/3 Ml Neb.Kaylynn*) 2.5 mg INH Q4HR PRN PRN Reason: SOB/WHEEZING Last Admin: 05/11/18 13:17 Dose: 2.5 mg Aspirin (Aspirin Ec Tab*) 81 mg PO DAILY [facility] Last Admin: 05/11/18 07:54 Dose: 81 mg Dextrose (D50w Syringe 50 Ml*) 12.5 gm IV PUSH .FOR FS < 60 - SS PRN PRN Reason: FS < 60 Last Admin: 05/08/18 01:29 Dose: 12.5 gm Gabapentin (Neurontin Cap(*)) 200 mg PO TID [facility] Last Admin: 05/11/18 14:08 Dose: 200 mg Hydromorphone HCl (Dilaudid Inj1s*) 1.5 mg IV Q3H PRN PRN Reason: SEVERE PAIN Last Admin: 05/11/18 14:33 Dose: 1.5 mg Sodium Thiosulfate 25 gm/ (Sodium Chloride) 200 mls @ 200 mls/hr IV DAILY@2000 [facility] Last Admin: 05/10/18 20:55 Dose: 200 mls/hr Pantoprazole Sodium (Protonix Iv Bag*) 80 mg in 250 mls @ 25 mls/hr IVPB Q10H [facility] Last Admin: 05/11/18 12:46 Dose: 25 mls/hr Insulin Human Lispro (Humalog*) 0 units SUBCUT ACHS [facility]; Protocol Last Admin: 05/11/18 11:53 Dose: Not Given Lidocaine HCl (Lidocaine 2% Jelly*) 1 applic TOPICAL TID [facility] Last Admin: 05/11/18 14:08 Dose: 1 applic Methadone HCl (Dolophine Tab*) 10 mg PO Q6H [facility] Last Admin: 05/11/18 09:59 Dose: 10 mg Mometasone Furoate/Formoterol Fumar (Dulera 200/5 Mdi*) 2 puff INH BID [facility]; Protocol Last Admin: 05/11/18 08:08 Dose: 2 puff Mupirocin (Bactroban 2 % Oint*) 1 applic TOPICAL DAILY [facility] Last Admin: 05/11/18 11:05 Dose: 1 applic Ondansetron HCl (Zofran Inj*) 4 mg IV Q6H PRN PRN Reason: NAUSEA Last Admin: 05/11/18 08:18 Dose: 4 mg Oxymetazoline HCl (Afrin 0.05% Nasal [place]*) 2 spray BOTH NARES BID [facility] Last Admin: 05/11/18 10:00 Dose: Not Given Sertraline HCl (Zoloft*) 25 mg PO DAILY [facility] Last Admin: 05/11/18 07:54 Dose: 25 mg Sevelamer Carbonate (Renvela Tab*) 800 mg PO TID [facility] Last Admin: 05/11/18 14:26 Dose: 800 mg Vital Signs - 8 hr 05/11/18 05/11/18 05/11/18 08:00 08:04 08:11 Temperature Pulse Rate 112 Respiratory 20 14 Rate Blood Pressure (mmHg) O2 Sat by Pulse 100 99 Oximetry 05/11/18 05/11/18 05/11/18 09:00 09:01 09:59 Temperature Pulse Rate 112 115 Respiratory 20 18 21 Rate Blood Pressure 113/47 (mmHg) O2 Sat by Pulse 98 100 Oximetry 05/11/18 05/11/18 05/11/18 10:00 10:01 10:10 Temperature 98.8 F Pulse Rate 112 115 Respiratory 23 15 Rate Blood Pressure 137/94 (mmHg) O2 Sat by Pulse 75 87 Oximetry 05/11/18 05/11/18 05/11/18 10:58 11:00 11:01 Temperature Pulse Rate 116 113 Respiratory 17 15 20 Rate Blood Pressure 124/78 (mmHg) O2 Sat by Pulse 98 96 Oximetry 05/11/18 05/11/18 05/11/18 12:00 12:01 13:00 Temperature Pulse Rate 116 Respiratory 20 16 24 Rate Blood Pressure 120/41 (mmHg) O2 Sat by Pulse 86 Oximetry 05/11/18 05/11/18 05/11/18 13:01 13:12 13:15 Temperature 98.3 F Pulse Rate 118 115 Respiratory 15 20 Rate Blood Pressure 110/69 117/67 (mmHg) O2 Sat by Pulse 90 85 Oximetry 05/11/18 05/11/18 05/11/18 13:19 14:00 14:01 Temperature Pulse Rate 115 119 118 Respiratory 18 17 20 Rate Blood Pressure 89/62 (mmHg) O2 Sat by Pulse 97 88 92 Oximetry 05/11/18 05/11/18 05/11/18 14:16 14:19 14:33 Temperature Pulse Rate 122 123 Respiratory 29 17 18 Rate Blood Pressure 108/83 90/66 (mmHg) O2 Sat by Pulse 85 88 Oximetry 05/11/18 05/11/18 05/11/18 14:40 15:00 15:02 Temperature Pulse Rate 123 117 119 Respiratory 20 15 13 Rate Blood Pressure 91/63 (mmHg) O2 Sat by Pulse 89 87 87 Oximetry Oxygen Devices in Use Now: Nasal Cannula - 5L Eyes: No Scleral Icterus Respiratory: Symmetrical Chest Expansion and Respiratory Effort, - - bilateral scattered wheezes Cardiovascular: NL Sounds; No Murmurs; No JVD Extremities: - - purple non ulcerated skin lesions on bilateral thighs Neurological: Alert and Oriented x 3 Result Diagrams: 05/11/18 08:00 05/11/18 08:00 Microbiology and Other Data: Microbiology 04/29/18 23:00 Nasal Screen MRSA (PCR) - Final Nasal Mrsa Not Detected Assess/Plan/Problems-Billing Assessment: 37W with complicated medical history including ESRD on PD, PAD s/p femoral stents on warfarin, COPD with chronic resp failure and active smoking on 5L O2, IDDM, chronic pain on methadone, unconfirmed CAD, and recent admission at the end of March for PNA, returning with b/l thigh pain found with indurated raised lesions over thighs concerning for calciphylaxis now on sodium thiosulfate IV. With persistent leukocytosis (chronic), supratherapeutic INR. Hospital course complicated by respiratory failure likely from PNA requiring intubation, extubated on 05/05. - Patient Problems (1) Thigh pain Current Visit: Yes Status: Acute Comment: Concern for calciphylaxis given physical exam findings. -Previously thought pain could be from severe PAD. -Seen by Dr Salinas.Plan for biopsy on Sat/Sat when inr normalizes - cont sodium tiosulfate 25g IV daily (05/07 - ) - appreciate dermatology recs (paper chart) -coumadin held and follow inr (2) Calciphylaxis Current Visit: Yes Status: Acute Code(s): E83.59 - OTHER DISORDERS OF CALCIUM METABOLISM SNOMED Code(s): 055990680 Comment: plan per above biopsy pending sodium thiosulfate started Will stop vit d analogs, calcitriol Coumadin predisposes and risk fac for calciphylaxis coumadin necrosis also in differential will wait on biopsy poor candidate for coumadin if biopsy pos would benefit from transitioning to noac/ eliquis will check pth,ca phos will add sevelemer ( non ca phos binder) will stop calcitriol if pth >300, can start cinacalcet need to discuss with vascular about biopsy about switching to eliquis. (3) Chronic pain Current Visit: Yes Status: Acute Code(s): G89.29 - OTHER CHRONIC PAIN SNOMED Code(s): 90812314 Comment: - appreciate consult from Dr. Lion - home methadone increased to 10mg q8h prn - rescue with hydromorphone 1.5mg IV q3h prn - cont home gabapentin (4) ESRD on peritoneal dialysis Current Visit: Yes Status: Chronic Priority: High Code(s): N18.6 - END STAGE RENAL DISEASE; Z99.2 - DEPENDENCE ON RENAL DIALYSIS SNOMED Code(s): 72818109 Comment: On peritoneal dialysis. - cont PD, -plan per above - monitor BMP (5) IDDM (insulin dependent diabetes mellitus) Current Visit: Yes Status: Chronic Priority: High Code(s): E11.9 - TYPE 2 DIABETES MELLITUS WITHOUT COMPLICATIONS; Z79.4 - [facility] (CURRENT) USE OF INSULIN SNOMED Code(s): 96531107 Comment: HgbA1c 8.8% - cont basal/bolus insulin (6) PAD (peripheral artery disease) Current Visit: Yes Status: Chronic Code(s): I73.9 - PERIPHERAL VASCULAR DISEASE, UNSPECIFIED SNOMED Code(s): 802201662 Comment: s/p stent and complicated by DVTs. CT Aorta with run off this admission with moderate-severe R common femoral artery stenosis, severe b/l popliteal artery stenosis, near complete occlusion of distal L superficial fem artery stent. -coumadin held for biopsy -consider transition to noac if calciphylaxis pos (7) GI bleed Current Visit: Yes Status: Acute Code(s): K92.2 - GASTROINTESTINAL HEMORRHAGE, UNSPECIFIED SNOMED Code(s): 00449853 Comment: Transferred to ICU Mid drop in hb s/p 1 unit PRBC,FFP,protonix hb currently stable will start on ppi drip and can transition to po ppi in 24h based on symptoms.If hb falls, will consult GI Coumadin on hold will repeat cbc and pt inr later in the day Status and Disposition: Remains admitted. Pt will need evaluation by PT for discharge planning. Will need to find plan for administering IV sodium thiosulfate after discharge.
[2018-05-11 15:55] LABS: ABS Basophils 0.1 10^3/ul (0-0.2); ABS Eosinophils 0.2 10^3/ul (0-0.6); ABS Lymphocytes 1.6 10^3/ul (1.0-4.8); ABS Monocytes 0.9 10^3/ul (0-0.8); ABS Neutrophils 14.5 10^3/ul (1.5-7.7); ABS Nucleated RBC 0 10^3/ul; Eosinophil % 1.3 %; Hematocrit 24 % (33-41); Hemoglobin 7.8 g/dL (12.0-16.0); Mean Corpuscular HGB Conc 33 g/dL (31-36); Mean Corpuscular Hemoglobin 29 pg (27-31); Mean Corpuscular Volume 87 fL (80-97); Mean Platelet Volume 7.8 fL (7.4-10.4); Nucleated Red Blood Cells % 0.1; Platelet Count 476 10^3/uL (150-450); Red Blood Count 2.72 10^6 /uL (3.70-4.87); Red Cell Distribution Width 17 % (10.5-15); White Blood Count 17.2 10^3/uL (3.5-10.8)
[2018-05-11] MEDS: Sodium Thiosulfate 25 GM in 200 ML IV SCH (20:21)
[2018-05-11] MEDS: Albuterol/Ipratropium NEB.SOL* Albuterol 2.5 MG/Ipratropium 0.5 MG 3 ML INH PRN (22:25)
[2018-05-12] MEDS: Pantoprazole* 80 mg IN NS 80 MG/250 ML BAG IVPB SCH ×2 (00:28→08:33)
[2018-05-12] MEDS: Sevelamer TAB* 800 MG PO SCH ×3 (00:32→14:05)
[2018-05-12] MEDS: Methadone TAB* 10 MG PO SCH ×4 (00:32→16:56)
[2018-05-12] MEDS: HYDROmorphone INJ1* 1 MG/ML SYRINGE IV PRN ×5 (02:16→18:05)
[2018-05-12 04:54] LABS: Hematocrit 25 % (33-41); Hemoglobin 7.5 g/dL (12.0-16.0); Mean Corpuscular HGB Conc 31 g/dL (31-36); Mean Corpuscular Hemoglobin 27 pg (27-31); Mean Corpuscular Volume 89 fL (80-97); Mean Platelet Volume 7.9 fL (7.4-10.4); Platelet Count 492 10^3/uL (150-450); Red Blood Count 2.77 10^6 /uL (3.70-4.87); Red Cell Distribution Width 17 % (10.5-15); White Blood Count 24.2 10^3/uL (3.5-10.8)
[2018-05-12 05:10] LABS: BUN/Creatinine Ratio 6.5 (8-20); Calcium 9.2 mg/dL (8.6-10.3); EGFR African American 8.8 (>60); EGFR Non-African American 7.2 (>60); Potassium 4.3 mmol/L (3.5-5.0)
[2018-05-12 05:28] LABS: ABS Basophils 0.1 10^3/ul (0-0.2); ABS Eosinophils 0 10^3/ul (0-0.6); ABS Lymphocytes 0.9 10^3/ul (1.0-4.8); ABS Monocytes 0.7 10^3/ul (0-0.8); ABS Neutrophils 22.5 10^3/ul (1.5-7.7); ABS Nucleated RBC 0 10^3/ul; Eosinophil % 0.2 %; Lymphocyte % 3.5 %; Nucleated Red Blood Cells % 0.1
[2018-05-12] MEDS: Aspirin EC TAB* 81 MG TAB.EC PO SCH (08:07)
[2018-05-12] MEDS: Gabapentin CAP(*) 100 MG PO SCH ×2 (08:07→14:05)
[2018-05-12] MEDS: Ondansetron INJ* 2 MG/ML VIAL IV PRN (08:07)
[2018-05-12] MEDS: Sertraline* 25 MG TAB PO SCH (08:07)
[2018-05-12] MEDS: Insulin LISPRO* 1 UNITS UNIT SUBCUT SCH ×4 (08:08→21:40)
[2018-05-12] MEDS: Oxymetazoline 0.05% NASAL SPR* 15 ML BTL BOTH NARES SCH (08:09)
[2018-05-12] MEDS: Mometasone/Formoter 200/5 MDI INH SCH ×2 (08:20→20:36)
[2018-05-12] MEDS: Albuterol/Ipratropium NEB.SOL* Albuterol 2.5 MG/Ipratropium 0.5 MG 3 ML INH PRN ×2 (08:20→20:36)
[2018-05-12] MEDS: Lidocaine 2% JELLY* 6 ML JELLY TOPICAL SCH ×2 (08:33→14:06)
[2018-05-12] MEDS: Mupirocin 2% OINT* TUBE TOPICAL SCH (08:39)
[2018-05-12] MEDS ORDERED: Bupivacaine 0.5% W/EPI SDV* 30 ML VIAL ONE (11:03)
[2018-05-12] MEDS ORDERED: Lidocaine 1% INJ* 10 MG/ML 30 ML SDV ONE (11:03)
[2018-05-12] MEDS ORDERED: Midazolam* 1 MG/ML 2 ML VIAL (2 MG) ONE (11:40)
[2018-05-12] MEDS ORDERED: Propofol* 10 MG/ML 20 ML BTL ONE (12:13)
[2018-05-12] MEDS ORDERED: Lidocaine 2% PF * 5 ML VIAL ONE (12:13)
--- NOTE | 2018-05-12 12:30 | BRIEFOPN ---
Brief Operative Note - Surgery Procedures: Procedure Note pre op dx: painful skin lesion Post op dx: same Procedure: incisional biopsy L thigh Surgeon : Brad asst: none gabby: local mac specimen: deep skin biopsy
--- NOTE | 2018-05-12 13:51 | OP ---
CC: Dr. Luis Marrufo; Primary Care Doctor * DATE OF OPERATION: 05/12/18 - ROOM #[id number] DATE OF BRITH: 78 SURGEON: Tommie Salinas MD TAX AUDIT MANAGER: None. ANESTHESIOLOGIST: Dr. Martinez. ANESTHESIA: Local MAC. PRE-OP DIAGNOSIS: Painful skin lesion, rule out calciphylaxis. POST-OP DIAGNOSIS: Painful skin lesion, rule out calciphylaxis. OPERATIVE PROCEDURE: Incisional biopsy of left thigh lesion. SPECIMEN: Deep skin biopsy. DESCRIPTION OF PROCEDURE: Ms. Wright is a 37-year-old female with end-stage renal disease, with painful bilateral lower extremity skin changes with ulceration that is being treated and worked up for possibility of calciphylaxis. She had been on Coumadin. This was held and it was recommended by the Dermatology and hospitalist service to perform biopsies. The case was discussed with Nephrology. The patient was marked, brought to the operating room and on the patient's bed, her left thigh was prepped and draped in a standard surgical fashion. Time-out was performed. A lidocaine was injected for a local block overlying the indurated area adjacent to a necrotic appearing ulcer. A 2 cm incision was made in an elliptical fashion taking skin down to deep subcutaneous tissue, but not to the muscle fascia. This was passed off and not oriented. The wound was irrigated and reapproximated with 3- 0 chromic sutures followed by sterile dressing. The patient tolerated the procedure well. [id number]/CPS #: [id number] MTDD
[2018-05-12 16:59] LABS: Magnesium 2.1 mg/dL (1.9-2.7); Phosphorus 8.1 mg/dL (2.5-5.0)
[2018-05-12 17:59] LABS: INR 1.68 (0.77-1.02)
[2018-05-12] MEDS: Dextrose 50% Syringe 50 ML* 25 GM/50 ML SYRINGE IV PUSH PRN (19:55)
[2018-05-12] MEDS: Sodium Thiosulfate 25 GM in 200 ML IV SCH (20:04)
--- NOTE | 2018-05-12 21:52 | PN ---
Subjective Interval History: Pt had LE lesion biopsy by surgery today. Tolerated procedure well. Moreno (pt's partner) reports her LE pain is improved. No further episodes of bloody cough/emesis or BM. Suspicious that pt's nose bleed was actual cause of symptoms and not new GI bleed. Will tx out of ICU given stable Hgb. Family History: Unchanged from Admission Social History: Unchanged from Admission Past Medical History: Unchanged from Admission Objective Active Medications: Acetaminophen (Tylenol Tab*) 650 mg PO Q6H PRN PRN Reason: PAIN Last Admin: 05/10/18 14:04 Dose: 650 mg Al Hydrox/Mg Hydrox/Simethicone (Maalox Plus*) 30 ml PO Q6H PRN PRN Reason: DYSPEPSIA Last Admin: 05/07/18 05:22 Dose: 30 ml Albuterol (Ventolin 2.5 Mg/3 Ml Neb.Kaylynn*) 2.5 mg INH Q4HR PRN PRN Reason: SOB/WHEEZING Last Admin: 05/11/18 13:17 Dose: 2.5 mg Albuterol/Ipratropium (Duoneb (Albuterol 2.5 Mg/Ipratropium 0.5 Mg)) 1 neb INH Q4H PRN PRN Reason: SOB/WHEEZING Last Admin: 05/12/18 20:36 Dose: 1 neb Aspirin (Aspirin Ec Tab*) 81 mg PO DAILY [facility] Last Admin: 05/12/18 08:07 Dose: 81 mg Dextrose (D50w Syringe 50 Ml*) 12.5 gm IV PUSH .FOR FS < 60 - SS PRN PRN Reason: FS < 60 Last Admin: 05/12/18 19:55 Dose: 12.5 gm Gabapentin (Neurontin Cap(*)) 200 mg PO TID [facility] Last Admin: 05/12/18 14:05 Dose: 200 mg Hydromorphone HCl (Dilaudid Inj1s*) 1.5 mg IV Q3H PRN PRN Reason: SEVERE PAIN Last Admin: 05/12/18 18:05 Dose: 1.5 mg Sodium Thiosulfate 25 gm/ (Sodium Chloride) 200 mls @ 200 mls/hr IV DAILY@2000 [facility] Last Admin: 05/12/18 20:04 Dose: 200 mls/hr Insulin Human Lispro (Humalog*) 0 units SUBCUT ACHS [facility]; Protocol Last Admin: 05/12/18 21:40 Dose: Not Given Lidocaine HCl (Lidocaine 2% Jelly*) 1 applic TOPICAL TID [facility] Last Admin: 05/12/18 14:06 Dose: 1 applic Methadone HCl (Dolophine Tab*) 10 mg PO Q6H [facility] Last Admin: 05/12/18 16:56 Dose: 10 mg Mometasone Furoate/Formoterol Fumar (Dulera 200/5 Mdi*) 2 puff INH BID [facility]; Protocol Last Admin: 05/12/18 20:36 Dose: 2 puff Mupirocin (Bactroban 2 % Oint*) 1 applic TOPICAL DAILY [facility] Last Admin: 05/12/18 08:39 Dose: Not Given Ondansetron HCl (Zofran Inj*) 4 mg IV Q6H PRN PRN Reason: NAUSEA Last Admin: 05/12/18 08:07 Dose: 4 mg Oxymetazoline HCl (Afrin 0.05% Nasal [place]*) 2 spray BOTH NARES BID [facility] Last Admin: 05/12/18 08:09 Dose: 2 spr Sertraline HCl (Zoloft*) 25 mg PO DAILY [facility] Last Admin: 05/12/18 08:07 Dose: 25 mg Sevelamer Carbonate (Renvela Tab*) 800 mg PO TID [facility] Last Admin: 05/12/18 14:05 Dose: 800 mg Vital Signs - 8 hr 05/12/18 05/12/18 05/12/18 14:00 14:40 14:41 Pulse Rate 168 Respiratory 16 23 23 Rate O2 Sat by Pulse Oximetry 05/12/18 05/12/18 05/12/18 15:52 16:56 18:05 Pulse Rate Respiratory 18 20 16 Rate O2 Sat by Pulse 91 Oximetry 05/12/18 05/12/18 05/12/18 18:56 19:05 20:39 Pulse Rate 122 Respiratory 16 18 20 Rate O2 Sat by Pulse 92 Oximetry 05/12/18 20:44 Pulse Rate Respiratory Rate O2 Sat by Pulse 92 Oximetry Oxygen Devices in Use Now: Nasal Cannula Appearance: comfortable, calm, conversant Respiratory: Clear to Auscultation Cardiovascular: RRR Extremities: - - LE lesions unchanged Result Diagrams: 05/12/18 04:43 05/12/18 04:43 Microbiology and Other Data: Microbiology 04/29/18 23:00 Nasal Screen MRSA (PCR) - Final Nasal Mrsa Not Detected Assess/Plan/Problems-Billing Assessment: 37W with complicated medical history including ESRD on PD, PAD s/p femoral stents on warfarin, COPD with chronic resp failure and active smoking on 5L O2, IDDM, chronic pain on methadone, unconfirmed CAD, and recent admission at the end of March for PNA, returning with b/l thigh pain found with indurated raised lesions over thighs concerning for calciphylaxis now on sodium thiosulfate IV. Hospital course complicated by respiratory failure likely from PNA requiring intubation, extubated on 05/05. - Patient Problems (1) Calciphylaxis Comment: s/p skin biopsy by surgery (Dr. Jose) on 05/12. Warfarin necrosis also in ddx - would be poor candidate for warfarin. - cont IV sodium thiosulfate (05/07 - ) - would benefit from transitioning to noac/ eliquis - if pth >300, can start cinacalcet - need to discuss with vascular about biopsy about switching to eliquis. (2) Chronic pain Comment: - appreciate consult from Dr. Lion - home methadone increased to 10mg q8h prn - rescue with hydromorphone 1.5mg IV q3h prn - cont home gabapentin (3) ESRD on peritoneal dialysis Comment: On peritoneal dialysis. - cont PD - given calciphlyaxis concern, stopped vit D analogues/calcitriol, started sevelemer - monitor BMP (4) PAD (peripheral artery disease) Comment: s/p stent and complicated by DVTs. CT Aorta with run off this admission with moderate-severe R common femoral artery stenosis, severe b/l popliteal artery stenosis, near complete occlusion of distal L superficial fem artery stent. -coumadin held for biopsy -consider transition to noac if calciphylaxis pos (5) Acute respiratory failure with hypoxia Comment: She is back to her baseline O2 requirement of 5L continuously. Extubated 05/05. Thought to be from PNA and volume overload causing pulm congestion. - s/p 7 days of Zosyn - cont Dulera with albuterol prn (6) IDDM (insulin dependent diabetes mellitus) Comment: HgbA1c 8.8% - cont basal/bolus insulin (7) Essential hypertension Comment: Low BPs this admission. - stop home losartan (8) GI bleed Comment: Likely this is clots from recent nose bleed. Hgb stable. - tx out of ICU - switch IV PPI to PO BID and monitor - off AC Status and Disposition: Remains admitted. Pt will need evaluation by PT for discharge planning. Will need to find plan for administering IV sodium thiosulfate after discharge.
[2018-05-12] MEDS ORDERED: HYDROmorphone INJ1* 1 MG/ML SYRINGE IV PRN (22:28)
[2018-05-12] MEDS ORDERED: Naloxone* 0.4 MG/ML 1 ML VIAL IV PUSH ONE (23:29)
[2018-05-13] MEDS: Lidocaine 2% JELLY* 6 ML JELLY TOPICAL SCH ×4 (00:18→22:19)
[2018-05-13] MEDS: Methadone TAB* 10 MG PO SCH ×5 (00:20→17:32)
[2018-05-13] MEDS: Gabapentin CAP(*) 100 MG PO SCH (00:20)
[2018-05-13] MEDS: Oxymetazoline 0.05% NASAL SPR* 15 ML BTL BOTH NARES SCH ×3 (00:20→21:59)
[2018-05-13] MEDS: Sevelamer TAB* 800 MG PO SCH ×4 (00:42→21:46)
--- NOTE | 2018-05-13 04:25 | PN ---
Hospitalist Progress Note S:Called to assess pt by RN, first around 2250 as pt was poorly responsive to verbal stimuli with RN and noted with constricted pupil. O: Pt was somewhat lethargic but able to respond verbally and able to follow commands. She has been on methadone 10mg q6 (last 1699) and dilaudid 1.5mg IV q3 hr prn (last 1800). She attested to some pain in her foot but otherwise was asleep on arrival. A: She is lethargic with contribution from her opioid medications. P: dilauldid IV prns stopped. Will hold off on narcan for now given patient arousable to verbal stimuli and has notably been hard to control her pain especially with this new concern for potential calciphylaxis (she also notably leaves frequently leaves AMA) S:Called to assess pt by RN, second time around 0 as pt had increased oxygen requirements from her baseline 6L. O: Requiring 10L oxymask and initially Sat'ing in mid 80s. mentation is similar to above. Upon sitting up she is able to expectorate some yellow sputum and her saturations improve. Stat CXR obtained and no acute change. Lungs are diffusely rhonchorous. A/P: I discussed with [id number] at bedside possibility that Margaux would be more alert and able to clear sputum better if some narcan was administered but the DIL strenously objected. Given improvement in Saturations will continue to monitor for now with the reduced opioid administration schedule (of note her methadone had also been subsequently changed to q8 by VIOLET Lester). She has leukocytosis and continued tachycardia but no fevers. She is s/p 7 days zosyn course. May benefit from steroids for acute COPD exacerbation.
[2018-05-13 05:08] LABS: BUN/Creatinine Ratio 6.1 (8-20); Calcium 9.6 mg/dL (8.6-10.3); EGFR Non-African American 7.4 (>60); Magnesium 2.2 mg/dL (1.9-2.7); Phosphorus 8.7 mg/dL (2.5-5.0); Potassium 4.5 mmol/L (3.5-5.0)
[2018-05-13 05:10] LABS: Hematocrit 25 % (33-41); Hemoglobin 7.8 g/dL (12.0-16.0); Mean Corpuscular HGB Conc 32 g/dL (31-36); Mean Corpuscular Hemoglobin 28 pg (27-31); Mean Corpuscular Volume 88 fL (80-97); Mean Platelet Volume 8.3 fL (7.4-10.4); Platelet Count 538 10^3/uL (150-450); Red Blood Count 2.81 10^6 /uL (3.70-4.87); Red Cell Distribution Width 17 % (10.5-15); White Blood Count 28.7 10^3/uL (3.5-10.8)
[2018-05-13 05:18] LABS: ABS Basophils 0.1 10^3/ul (0-0.2); ABS Eosinophils 0 10^3/ul (0-0.6); ABS Lymphocytes 0.5 10^3/ul (1.0-4.8); ABS Monocytes 0.6 10^3/ul (0-0.8); ABS Neutrophils 27.6 10^3/ul (1.5-7.7); ABS Nucleated RBC 0.1 10^3/ul; Eosinophil % 0 %; Lymphocyte % 1.6 %; Nucleated Red Blood Cells % 0.2
--- NOTE | 2018-05-13 07:17 | PN ---
Hospitalist Progress Note ABG obtained: pH 7.07 pCO2 54, PO2 76 HCO3 13.3; Serum Bicarb 16, Anion Gap 40. delta-delta 2. respiratory acidosis with 2ndary metabolic acidosis and additional metabolic alkalosis. Pt is being transferred to ICU for initiation of Bipap.
[2018-05-13] MEDS: Insulin LISPRO* 1 UNITS UNIT SUBCUT SCH ×4 (08:18→21:45)
[2018-05-13] MEDS: Pantoprazole TAB * 40 MG TAB PO SCH ×2 (08:19→21:45)
[2018-05-13] MEDS: Aspirin EC TAB* 81 MG TAB.EC PO SCH (08:19)
[2018-05-13] MEDS: Sertraline* 25 MG TAB PO SCH (08:20)
[2018-05-13] MEDS: Albuterol/Ipratropium NEB.SOL* Albuterol 2.5 MG/Ipratropium 0.5 MG 3 ML INH SCH ×4 (08:23→19:52)
[2018-05-13] MEDS: Mometasone/Formoter 200/5 MDI INH SCH (08:25)
[2018-05-13] MEDS: Acetylcysteine INHALATION SOL* 200 MG/ML NEB.SOLN 10 ML INH SCH ×2 (08:25→12:40)
[2018-05-13] MEDS: Mupirocin 2% OINT* TUBE TOPICAL SCH (10:46)
--- NOTE | 2018-05-13 11:32 | PN ---
Date of Service: 05/13/18 - RECONSULTATION NOTE Critical Care Services: 37W with complicated medical history including ESRD on PD, PAD s/p femoral stents on warfarin, COPD with chronic resp failure and active smoking on 5L O2, IDDM, chronic pain on methadone, unconfirmed CAD, and recent admission at the end of March for PNA, returning with b/l thigh pain found with indurated raised lesions over thighs concerning for calciphylaxis now on sodium thiosulfate IV. With persistent leukocytosis (chronic), supratherapeutic INR. Hospital course complicated by respiratory failure likely from PNA requiring intubation, extubated on 05/05. overnight events/current complains: Patient underwent incisional biopsy of left thigh lesion on 05/12/[address] Tommie Salinas pathology consistent with caciphylaxis. Overnight hospitalist was asked to evaluate patient around 2250 due to mental status changes- poorly responsive to verbal stimuli with constricted pupil. Symptoms were attributed to overzealous opiate usage due to acute post surgical pain with concomitant acute acidosis- with acute metabolic and respiratory derangements. She was sent to the ICU for BIPAP need. Vital Signs: Temp Pulse Resp BP SpO2 FiO2 97.9 F 109 14 103/91 99 60 05/13/18 07:59 05/13/18 10:01 05/13/18 10:01 05/13/18 09:00 05/13/18 10:01 05/13 10:01 Physical Exam: Gen: NAD, on BIPAP HEENT:NCAT, EOMI, no scleral icterus, neck supple Lungs:air entry bilaterally, no wheezes Cardiac: +S1, S2, RRR Abdomen:SNTND, +bowel sounds Extremities:no edema, + ecchymosis Neuro:AAOX3, non-focal Fluid Balance (Past 24 Hours): I= O= Net Intake & Output 05/11/18 05/12/18 05/13/18 05/14/18 06:59 06:59 06:59 06:59 Intake Total 1178 670 344 Output Total 80 Balance 1098 670 344 Weight 190 lb 14.4 oz 191 lb 12.835 oz Intake: IV Fluids 200 200 244 Sodium Thiosulfate 200 protonix 244 thiosulfate 200 IVPB 350 protonix 350 Oral 720 120 100 Packed Cells 258 Output: Urine 20 Estimated Blood Loss 60 Other: # Bowel Movements 1 Estimated Stool Amount Small ADLs: Meal Record Start: 04/29/18 21: 19 Freq: DAILY@0900,1400,1800 Status: Complete Protocol: Created 04/29/18 21:19 System (Rec: 04/29/18 21:19 System TELE-M15) Document 04/30/18 09:00 [id number] (Rec: 04/30/18 13:52 [id number] TELE-C10) Document 04/30/18 14:00 [id number] (Rec: 04/30/18 15:02 RHT7485 TELE-C10) Document 04/30/18 18:00 ZVH3089 (Rec: 04/30/18 19:27 SFC1615 TELE-C10) Document 05/01/18 09:00 CSJ6548 (Rec: 05/01/18 14:44 LOY1901 TELE-C10) Document 05/01/18 14:00 PVF5345 (Rec: 05/01/18 14:44 XUX5773 TELE-C10) Document 05/01/18 18:00 HJO1324 (Rec: 05/01/18 19:43 IGY6477 TELE-C10) ADLs: Meal Record Start: 05/02/18 07: 16 Freq: 09,13,18 Status: Active Protocol: Created 05/02/18 07:16 [id number] (Rec: 05/02/18 07:16 CII3252 ICU-C12) Document 05/02/18 09:00 VAG4159 (Rec: 05/02/18 09:36 AUX6175 ICU-C07) Document 05/02/18 13:00 AHX4456 (Rec: 05/02/18 13:05 IOQ1078 ICU-C07) Document 05/02/18 18:00 PCL4669 (Rec: 05/02/18 18:11 KTZ8721 ICU-C10) Document 05/06/18 09:00 AAI1267 (Rec: 05/06/18 09:43 FTO8058 ICU-C15) Document 05/06/18 18:00 GZR7571 (Rec: 05/06/18 18:42 FCH5855 TELE-C01) Document 05/07/18 09:00 RWI2831 (Rec: 05/07/18 15:25 CJB4573 TELE-C03) Document 05/07/18 13:00 GHX4393 (Rec: 05/07/18 15:26 PBC1838 TELE-C03) Document 05/07/18 18:00 AUG6475 (Rec: 05/07/18 22:15 VFQ4309 TELE-C01) Document 05/08/18 09:00 GWA7671 (Rec: 05/08/18 15:03 FQW0813 TELE-C05) Document 05/08/18 13:00 ZBW2902 (Rec: 05/08/18 15:04 ATF6681 TELE-C05) Document 05/08/18 18:00 UQV6003 (Rec: 05/08/18 21:56 IEX3591 TELE-C08) Document 05/09/18 09:00 RQO5038 (Rec: 05/09/18 16:41 TCN1837 TELE-C11) Document 05/09/18 13:00 KMT4152 (Rec: 05/09/18 21:33 IDR1159 TELE-C06) Document 05/09/18 18:00 QTE1471 (Rec: 05/09/18 21:34 KKM3774 TELE-C01) Document 05/10/18 09:00 OTU6283 (Rec: 05/10/18 10:37 UCV9687 TELE-C13) Document 05/10/18 13:00 RSK7965 (Rec: 05/10/18 14:35 NXH3145 TELE-C13) Document 05/10/18 18:00 ICD7921 (Rec: 05/10/18 22:27 DSY3913 TELE-C09) Document 05/11/18 09:00 QLU1947 (Rec: 05/11/18 09:26 XKK6795 ICU-C16) Document 05/11/18 14:52 EVS9368 (Rec: 05/11/18 14:52 FYD3385 ICU-C16) Document 05/11/18 18:00 YRU7874 (Rec: 05/11/18 22:29 FQA3969 ICU-C25) Document 05/12/18 09:00 HFB9040 (Rec: 05/12/18 10:34 EIS8632 ICU-M33) Document 05/12/18 14:42 UTG4420 (Rec: 05/12/18 14:42 RCT7339 ICU-M33) ADLs: Meal Record Start: 05/12/18 15: 52 Freq: Status: Complete Protocol: Created 05/12/18 15:52 GYD1986 (Rec: 05/12/18 15:52 XVM1656 TELE-C08) Intake and Output Start: 04/29/18 18: 19 Freq: Status: Complete Protocol: Created 04/29/18 18:19 System (Rec: 04/29/18 18:19 System EDRM-C04) Intake and Output Start: 04/29/18 21: 19 Freq: DAILY@0600,1400,2200 Status: Complete Protocol: Created 04/29/18 21:19 System (Rec: 04/29/18 21:19 System TELE-M15) Document 04/30/18 06:00 VNN7987 (Rec: 04/30/18 06:47 YED7209 TELE-C03) Document 04/30/18 14:00 ACB2347 (Rec: 04/30/18 15:02 EOR1581 TELE-C10) Document 04/30/18 22:00 JZK5482 (Rec: 04/30/18 22:07 HVX1886 TELE-C10) Document 05/01/18 05:58 TGA0953 (Rec: 05/01/18 05:59 ORG0712 HOSP-C11) Document 05/01/18 14:00 OBY9534 (Rec: 05/01/18 14:46 YLX3545 TELE-C10) Document 05/01/18 22:00 LIM3748 (Rec: 05/01/18 22:28 STE8269 TELE-C09) Intake and Output Start: 05/02/18 07: 16 Freq: QSHIFT Status: Active Protocol: Created 05/02/18 07:16 LOB9946 (Rec: 05/02/18 07:16 YVP8098 ICU-C12) Document 05/02/18 08:00 RPP9597 (Rec: 05/02/18 08:21 WTH5212 ICU-M35) Document 05/02/18 11:44 JNZ8886 (Rec: 05/02/18 11:44 MMP9763 ICU-C07) Document 05/02/18 16:00 IFJ3419 (Rec: 05/02/18 18:06 CJQ5640 ICU-C10) Document 05/03/18 00:00 QJP7161 (Rec: 05/03/18 00:48 MIW5129 ISDEMO-M03 ) Document 05/03/18 06:07 HHT3584 (Rec: 05/03/18 06:07 NGB0655 ISDEMO-M03 ) Document 05/03/18 08:00 UJJ3632 (Rec: 05/03/18 12:31 GHF7960 ICU-C16) Document 05/03/18 12:00 AZF7943 (Rec: 05/03/18 17:36 CWI9593 ICU-C16) Co-Sign 05/03/18 12:00 HYK5743 Document 05/03/18 16:00 YHE4250 (Rec: 05/03/18 18:03 GDZ0146 ICU-C16) Document 05/03/18 21:15 WCF6467 (Rec: 05/04/18 03:56 EKI5017 ICU-L03) Document 05/04/18 03:30 YLU5888 (Rec: 05/04/18 03:56 HLF1119 ICU-L03) Document 05/04/18 08:00 BAX9977 (Rec: 05/04/18 11:39 YDG4285 ICU-C16) Document 05/05/18 00:58 QRZ9230 (Rec: 05/05/18 00:58 MSK7495 ISDEMO-M03 ) Document 05/05/18 08:00 FIJ3986 (Rec: 05/05/18 12:22 GPZ7722 ICU-C16) Document 05/05/18 20:00 MEI8573 (Rec: 05/05/18 20:12 GOG7699 ICU-C15) Document 05/06/18 08:00 JKJ9698 (Rec: 05/06/18 09:42 NXG6795 ICU-C15) Document 05/06/18 10:58 TAO5413 (Rec: 05/06/18 10:58 AIS0084 ICU-C15) Document 05/06/18 20:00 HBQ4975 (Rec: 05/06/18 22:42 ACZ0133 TELE-C01) Document 05/07/18 08:00 STA9684 (Rec: 05/07/18 10:57 OHD0748 TELE-C03) Document 05/07/18 20:00 HWA8258 (Rec: 05/07/18 22:16 VRS2092 TELE-C01) Document 05/08/18 08:00 SXS0418 (Rec: 05/08/18 15:02 TFO2545 TELE-C05) Document 05/08/18 22:00 GBP4105 (Rec: 05/08/18 22:40 XTD6514 TELE-C08) Document 05/09/18 08:00 DCP6208 (Rec: 05/09/18 09:55 RSJ8382 TELE-M02) Document 05/09/18 20:00 IHF4629 (Rec: 05/09/18 22:54 KVB5309 TELE-C01) Document 05/10/18 08:00 VSH2231 (Rec: 05/10/18 10:31 ZYP2320 TELE-C13) Document 05/10/18 20:00 JOA8487 (Rec: 05/10/18 22:27 YMU5080 TELE-C09) Document 05/11/18 05:36 NWX5127 (Rec: 05/11/18 05:37 KIW1167 ICU-C25) Document 05/11/18 20:00 SSE0787 (Rec: 05/12/18 02:00 HXA7007 ICU-C25) Document 05/12/18 08:00 OJY1429 (Rec: 05/12/18 11:01 LLZ0171 ICU-L03) Labs: Laboratory Results - last 24 hr 05/12/18 05/12/18 05/12/18 04:43 06:00 12:54 WBC RBC Hgb Hct MCV MCH MCHC RDW Plt Count MPV Neut % (Auto) Lymph % (Auto) Davie % (Auto) Eos % (Auto) Baso % (Auto) Absolute Neuts (auto) Absolute Lymphs (auto) Absolute Monos (auto) Absolute Eos (auto) Absolute Basos (auto) Absolute Nucleated RBC Nucleated RBC % INR (Anticoag Therapy) 1.68 H Patient Temperature ABG pH ABG pH (Temp Correct) ABG pCO2 ABG pCO2 (Temp Corrct ABG pO2 ABG pO2 (Temp Correct ABG HCO3 ABG O2 Saturation ABG Base Excess Respiration Rate O2 Delivery Device Ventilator Type Vent Mode FiO2 Inspiratory Time PEEP Pressure Support Pressure Control EPAP IPAP BiPAP Sodium 144 Potassium 4.3 Chloride 88 L Carbon Dioxide 17 L Anion Gap 39 H BUN 42 H Creatinine 6.43 H Est GFR ( Amer) 8.8 Est GFR (Non-Af Amer) 7.2 BUN/Creatinine Ratio 6.5 L Glucose 189 H POC Glucose (mg/dL) 159 H Lactic Acid Calcium 9.2 Phosphorus 8.1 H Magnesium 2.1 C-Reactive Protein 05/12/18 05/12/18 05/12/18 16:28 19:34 21:18 WBC RBC Hgb Hct MCV MCH MCHC RDW Plt Count MPV Neut % (Auto) Lymph % (Auto) Davie % (Auto) Eos % (Auto) Baso % (Auto) Absolute Neuts (auto) Absolute Lymphs (auto) Absolute Monos (auto) Absolute Eos (auto) Absolute Basos (auto) Absolute Nucleated RBC Nucleated RBC % INR (Anticoag Therapy) Patient Temperature ABG pH ABG pH (Temp Correct) ABG pCO2 ABG pCO2 (Temp Corrct ABG pO2 ABG pO2 (Temp Correct ABG HCO3 ABG O2 Saturation ABG Base Excess Respiration Rate O2 Delivery Device Ventilator Type Vent Mode FiO2 Inspiratory Time PEEP Pressure Support Pressure Control EPAP IPAP BiPAP Sodium Potassium Chloride Carbon Dioxide Anion Gap BUN Creatinine Est GFR ( Amer) Est GFR (Non-Af Amer) BUN/Creatinine Ratio Glucose POC Glucose (mg/dL) 62 L 53 L 242 H Lactic Acid Calcium Phosphorus Magnesium C-Reactive Protein 05/12/18 05/12/18 05/13/18 22:29 23:29 04:25 WBC RBC Hgb Hct MCV MCH MCHC RDW Plt Count MPV Neut % (Auto) Lymph % (Auto) Davie % (Auto) Eos % (Auto) Baso % (Auto) Absolute Neuts (auto) Absolute Lymphs (auto) Absolute Monos (auto) Absolute Eos (auto) Absolute Basos (auto) Absolute Nucleated RBC Nucleated RBC % INR (Anticoag Therapy) Patient Temperature ABG pH ABG pH (Temp Correct) ABG pCO2 ABG pCO2 (Temp Corrct ABG pO2 ABG pO2 (Temp Correct ABG HCO3 ABG O2 Saturation ABG Base Excess Respiration Rate O2 Delivery Device Ventilator Type Vent Mode FiO2 Inspiratory Time PEEP Pressure Support Pressure Control EPAP IPAP BiPAP Sodium Potassium Chloride Carbon Dioxide Anion Gap BUN Creatinine Est GFR ( Amer) Est GFR (Non-Af Amer) BUN/Creatinine Ratio Glucose POC Glucose (mg/dL) 259 H 265 H 224 H Lactic Acid Calcium Phosphorus Magnesium C-Reactive Protein 05/13/18 05/13/18 05/13/18 04:43 04:43 06:30 WBC 28.7 H RBC 2.81 L Hgb 7.8 L Hct 25 L MCV 88 MCH 28 MCHC 32 RDW 17 H Plt Count 538 H MPV 8.3 Neut % (Auto) 96.1 Lymph % (Auto) 1.6 Davie % (Auto) 2.1 Eos % (Auto) 0 Baso % (Auto) 0.2 Absolute Neuts (auto) 27.6 H Absolute Lymphs (auto) 0.5 L Absolute Monos (auto) 0.6 Absolute Eos (auto) 0 Absolute Basos (auto) 0.1 Absolute Nucleated RBC 0.1 Nucleated RBC % 0.2 INR (Anticoag Therapy) Patient Temperature Not Reportable ABG pH 7.07 L* ABG pH (Temp Correct) Not Reportable ABG pCO2 54 H ABG pCO2 (Temp Corrct Not Reportable ABG pO2 76 L ABG pO2 (Temp Correct Not Reportable ABG HCO3 13.3 L ABG O2 Saturation 94.0 ABG Base Excess -14.7 L Respiration Rate Not Reportable O2 Delivery Device oxymask Ventilator Type Not Reportable Vent Mode Not Reportable FiO2 Not Reportable Inspiratory Time Not Reportable PEEP Not Reportable Pressure Support Not Reportable Pressure Control Not Reportable EPAP Not Reportable IPAP Not Reportable BiPAP Not Reportable Sodium 144 Potassium 4.5 Chloride 88 L Carbon Dioxide 16 L Anion Gap 40 H BUN 38 H Creatinine 6.28 H Est GFR ( Amer) 9.0 Est GFR (Non-Af Amer) 7.4 BUN/Creatinine Ratio 6.1 L Glucose 250 H POC Glucose (mg/dL) Lactic Acid Calcium 9.6 Phosphorus 8.7 H Magnesium 2.2 C-Reactive Protein 05/13/18 05/13/18 05/13/18 07:29 07:55 07:55 WBC RBC Hgb Hct MCV MCH MCHC RDW Plt Count MPV Neut % (Auto) Lymph % (Auto) Davie % (Auto) Eos % (Auto) Baso % (Auto) Absolute Neuts (auto) Absolute Lymphs (auto) Absolute Monos (auto) Absolute Eos (auto) Absolute Basos (auto) Absolute Nucleated RBC Nucleated RBC % INR (Anticoag Therapy) Patient Temperature ABG pH ABG pH (Temp Correct) ABG pCO2 ABG pCO2 (Temp Corrct ABG pO2 ABG pO2 (Temp Correct ABG HCO3 ABG O2 Saturation ABG Base Excess Respiration Rate O2 Delivery Device Ventilator Type Vent Mode FiO2 Inspiratory Time PEEP Pressure Support Pressure Control EPAP IPAP BiPAP Sodium Potassium Chloride Carbon Dioxide Anion Gap BUN Creatinine Est GFR ( Amer) Est GFR (Non-Af Amer) BUN/Creatinine Ratio Glucose POC Glucose (mg/dL) 123 H Lactic Acid 0.5 Calcium Phosphorus Magnesium C-Reactive Protein 187.85 H Studies: Patient Name: JULI PERRY Medical Record#: [id number] Ordering Physician: Fuentes Hardy MD Acct.#: [id number] : 1980 Age: 37 Sex: F Location: [address] [place] [address]/TELEMETRY Exam Date: 05/12/182327 ADM Status: ADM IN Order Information: CHEST AP OR PORT Accession Number: [id number] CPT: 80659 HISTORY: hypoxia COMPARISONS: May 11, 2018 VIEWS: 1: frontal AP view of the chest at 11:39 PM FINDINGS: LINES AND TUBES: None. CARDIOMEDIASTINAL SILHOUETTE: The cardiomediastinal silhouette is normal for portable technique. PLEURA: The costophrenic angles are sharp. No pleural abnormalities are noted. LUNG PARENCHYMA: There is a diffuse reticular pattern with indistinct pulmonary vessels. ABDOMEN: The upper abdomen is clear. There is no subphrenic gas. BONES AND SOFT TISSUES: No bone or soft tissue abnormalities are noted. IMPRESSION: PULMONARY INTERSTITIAL EDEMA. R1F Preliminary Imaging Read R1F <Electronically signed by Samuel Baker MD in OV> 05/13/18739 Dictated By: Samuel Baker MD Dictated Date/Time: 05/13/18739 Transcribed Date/Time: 05/13/18738 Copy to: CC:Jamil Lion MD; Chance Best MD; Tommie Salinas MD; Ramirez Johnston MD ; Yordy Benavidez MD; Jose R Horvath MD; Fuentes Hardy MD; Viola Gaspar MD; Elena Estrada DO ; Aishwarya Solis MD Imaging - [facility] Imaging - [facility] Imaging - [facility] [id number] [place] [id number] ph ([phone]) ph ([phone]) ph ([phone]) This report is only to be considered final once signed by the Provider(s) as displayed in the "<Electronically Signed by >" field (s). Absence of a signature indicates the report is in a draft status and still needs to be finalized. In the event this document was created by someone other than the signing Provider, the individual initiating the document will be listed in the "Entered by:" or "Dictated by:" hernandez. 1 of 2 Nutrition: renal diet Impression: 37W with complicated medical history including ESRD on PD, PAD s/p femoral stents on warfarin, COPD with chronic resp failure and active smoking on 5L O2, IDDM, chronic pain on methadone, unconfirmed CAD, and recent admission at the end of March for PNA, returning with b/l thigh pain found with indurated raised lesions over thighs concerning for calciphylaxis now on sodium thiosulfate IV. With persistent leukocytosis (chronic), supratherapeutic INR. Hospital course complicated by respiratory failure likely from PNA requiring intubation, extubated on 05/05. # Acute mixed acidosis- acute uncompensated primary respiratory acidosis with metabolic acidosis with high anion gap Plan: # Acute respiratory failure due to mixed acid base derangements # Acute mixed acidosis- acute uncompensated primary respiratory acidosis with metabolic acidosis with high anion gap - agree with BIPAP - repeat ABG at 1300 - started 150 meq bicarb x 1 L at 75cc/h. Will assess for fluid overload - minimized opiates # Hypotension will start midodrine # Hypoglycemia s/p D50 amps start oral intake # CAD # PVD with multiple LE stents with in-stent stensosis # DVT -discontinue ASA after today -start plavix tomorrow -start eliquis -caution with bleeding due to recent hx/o GI bleed # Caciphylaxis - on NaThiosulfate 25 gm daily--> will decrease daily as per PD needs - PTH mgmt as below - no warfarin and avoid subcutaneous injections - no vit D, calcium, iron supplementation - wound care # Hyperparathyroidism PTH (intact) 85.8pmol/L/ 809.09pg/mL -goal to bring PTH <300 -check PTH weekly -Started cinacalcet 90 mg BID # ESRD on PD - nephro recs # Leukocytosis persistent with acute increase 17-->24-->28 suspect reactive afebrile hemodynamically stable no overt suggestion of acute PNA on CXR recent completion of course of zosyn -will hold off on abx -culture if febrile # Anemia stable H/H -Pending Iron panel and retic count to determine if pt will benefit with EPO # Thrombocytosis likely reactive patient on ASA # chronic pain -consult from Dr Lion pending - decrease methadone to previous dose - prn dilaudid and continue with gabapenin # GIB thought to be due to recent bleed from nasal orgin Critical Care Time: 75 minutes
[2018-05-13] MEDS ORDERED: Sodium Bicarbonate 8.4% IV* 150 MEQ in D5W 1000 ML BAG* 1,000 ML IVPB ONE (12:00)
[2018-05-13] MEDS: Dextrose 50% Syringe 50 ML* 25 GM/50 ML SYRINGE IV PUSH PRN (13:44)
[2018-05-13] MEDS ORDERED: Dextrose 50% Syringe 50 ML* 25 GM/50 ML SYRINGE IV PUSH PRN (14:07)
[2018-05-13] MEDS ORDERED: Dextrose 50% Syringe 50 ML* 25 GM/50 ML SYRINGE ONE (14:10)
[2018-05-13] MEDS ORDERED: oxyCODONE TAB* 5 MG TAB PO PRN (16:45)
[2018-05-13] MEDS ORDERED: HYDROmorphone INJ* 0.5 MG/0.5 ML SYRINGE IV SLOW PU PRN (16:45)
[2018-05-13] MEDS ORDERED: HYDROmorphone INJ1* 1 MG/ML SYRINGE ONE (16:47)
[2018-05-13] MEDS: Apixaban* 2.5 MG TAB PO SCH (21:45)
[2018-05-13] MEDS: CMCS:Midodrine (NF) 5 MG TAB PO SCH (21:46)
[2018-05-13] MEDS: Cinacalcet TAB* 30 MG PO SCH (21:49)
[2018-05-14] MEDS: Albuterol/Ipratropium NEB.SOL* Albuterol 2.5 MG/Ipratropium 0.5 MG 3 ML INH SCH ×2 (01:57→07:47)
[2018-05-14] MEDS: Mometasone/Formoter 200/5 MDI INH SCH ×3 (02:23→20:20)
[2018-05-14] MEDS: Methadone TAB* 10 MG PO SCH ×2 (05:50→17:09)
[2018-05-14] MEDS: Ondansetron INJ* 2 MG/ML VIAL IV PRN ×3 (06:03→23:04)
[2018-05-14 06:13] LABS: Corrected Retic Count 0.7 % (0.5-1.5); Hematocrit for Retic CNT 19 % (33-41); Immature Retic Fraction 0.48; RBC Retic Count 2.16 10^6/uL (3.70-4.87)
[2018-05-14 06:20] LABS: BUN/Creatinine Ratio 6.1 (8-20); Calcium 8.5 mg/dL (8.6-10.3); EGFR African American 8.6 (>60); EGFR Non-African American 7.1 (>60); Potassium 3.8 mmol/L (3.5-5.0)
[2018-05-14 06:33] LABS: Total Iron Binding Capacity 126 mcg/dL (250-450); Transferrin 90 mg/dL (203-362)
[2018-05-14 06:34] LABS: % Iron Saturation 13 % (15-55); Iron < 17 ug/dL (50-212)
[2018-05-14 06:53] LABS: Ferritin 430.8 ng/mL (11-307)
[2018-05-14] MEDS: Insulin LISPRO* 1 UNITS UNIT SUBCUT SCH ×3 (08:28→17:44)
[2018-05-14] MEDS: Cinacalcet TAB* 30 MG PO SCH ×2 (08:29→21:32)
[2018-05-14] MEDS: Clopidogrel TAB* 75 MG PO SCH (08:29)
[2018-05-14] MEDS: Pantoprazole TAB * 40 MG TAB PO SCH ×2 (08:30→21:32)
[2018-05-14] MEDS: Sertraline* 25 MG TAB PO SCH (08:30)
[2018-05-14] MEDS: Apixaban* 2.5 MG TAB PO SCH ×2 (08:30→21:32)
[2018-05-14] MEDS: Sevelamer TAB* 800 MG PO SCH ×3 (08:30→21:31)
[2018-05-14] MEDS: Mupirocin 2% OINT* TUBE TOPICAL SCH (08:31)
[2018-05-14] MEDS: Lidocaine 2% JELLY* 6 ML JELLY TOPICAL SCH ×3 (08:31→21:41)
[2018-05-14] MEDS: Oxymetazoline 0.05% NASAL SPR* 15 ML BTL BOTH NARES SCH ×2 (08:31→21:37)
[2018-05-14] MEDS: CMCS:Midodrine (NF) 5 MG TAB PO SCH ×2 (08:31→21:31)
[2018-05-14 09:33] LABS: Hematocrit 22 % (33-41)
--- NOTE | 2018-05-14 11:47 | PN ---
Subjective Date of Service: 05/14/18 Interval History: Ms. Wright is a 37 yo male with PMH significant for ESRD on PD, PAD s/p femoral stents on warfarin, COPD with chronic respiratory failure and active smoking on 5L O2, IDDM, chronic pain on methadone, unconfirmed CAD, and recent admission at the end of March for PNA, returning with b/l thigh pain found with indurated raised lesions over thighs concerning for calciphylaxis now on sodium thiosulfate IV. Hospital course complicated by respiratory failure likely from PNA requiring intubation, extubated on 05/05. Family History: Unchanged from Admission Social History: Unchanged from Admission Past Medical History: Unchanged from Admission Objective Active Medications: Acetaminophen (Tylenol Tab*) 650 mg PO Q6H PRN Reason: PAIN Al Hydrox/Mg Hydrox/Simethicone (Maalox Plus*) 30 ml PO Q6H PRN Reason: DYSPEPSIA Albuterol (Ventolin 2.5 Mg/3 Ml Neb.Kaylynn*) 2.5 mg INH Q4HR PRN Reason: SOB/ WHEEZING Albuterol/Ipratropium (Duoneb (Albuterol 2.5 Mg/Ipratropium 0.5 Mg)) 1 neb INH RT.[id number] AWAKE PRN Reason: SOB/WHEEZING Apixaban (Eliquis*) 2.5 mg PO BID NICOLASA Cinacalcet (Sensipar Tab*) 90 mg PO BID NICOLASA Clopidogrel Bisulfate (Plavix Tab*) 75 mg PO DAILY [facility] Dextrose (D50w Syringe 50 Ml*) 25 gm IV PUSH .FOR FS < 60 - SS PRN Reason: FS < 60 Hydromorphone HCl (Dilaudid Inj1s*) 2 mg IV SLOW PU Q4H PRN Reason: PAIN Sodium Thiosulfate 25 gm/ (Sodium Chloride) 200 mls @ 200 mls/hr IV SuMoWeFr@ 2000 [facility] Insulin Human Lispro (Humalog*) 0 units SUBCUT ACHS NICOLASA; Protocol Lidocaine HCl (Lidocaine 2% Jelly*) 1 applic TOPICAL TID NICOLASA Methadone HCl (Dolophine Tab*) 10 mg PO Q12H NICOLASA Midodrine (Midodrine (Nf)) 10 mg PO BID NICOLASA; Protocol Mometasone Furoate/Formoterol Fumar (Dulera 200/5 Mdi*) 2 puff INH BID NICOLASA; Protocol Mupirocin (Bactroban 2 % Oint*) 1 applic TOPICAL DAILY NICOLASA Ondansetron HCl (Zofran Inj*) 4 mg IV Q6H PRN Reason: NAUSEA Oxymetazoline HCl (Afrin 0.05% Nasal [place]*) 2 spray BOTH NARES BID NICOLASA Pantoprazole Sodium (Protonix Tab*) 40 mg PO BID NICOLASA Sertraline HCl (Zoloft*) 25 mg PO DAILY NICOLASA Sevelamer Carbonate (Renvela Tab*) 800 mg PO TID NICOLASA Vital Signs - 8 hr 05/14/18 05/14/18 05/14/18 04:00 04:53 05:00 Temperature 97.4 F Pulse Rate 102 110 Respiratory 14 14 13 Rate Blood Pressure (mmHg) O2 Sat by Pulse 97 94 Oximetry 05/14/18 05/14/18 05/14/18 05:01 05:50 06:00 Temperature Pulse Rate 110 Respiratory 12 15 18 Rate Blood Pressure 151/48 (mmHg) O2 Sat by Pulse 94 Oximetry 05/14/18 05/14/18 05/14/18 06:01 06:02 07:00 Temperature Pulse Rate 125 121 Respiratory 16 32 19 Rate Blood Pressure 185/167 142/97 (mmHg) O2 Sat by Pulse 97 100 Oximetry 05/14/18 05/14/18 05/14/18 07:01 07:38 07:49 Temperature Pulse Rate 105 109 Respiratory 14 16 18 Rate Blood Pressure 116/47 (mmHg) O2 Sat by Pulse 94 94 93 Oximetry 05/14/18 05/14/18 05/14/18 08:00 08:01 09:00 Temperature Pulse Rate 113 111 110 Respiratory 17 18 25 Rate Blood Pressure 112/82 (mmHg) O2 Sat by Pulse 95 95 100 Oximetry 05/14/18 05/14/18 05/14/18 09:02 09:43 09:59 Temperature Pulse Rate 111 110 Respiratory 17 15 13 Rate Blood Pressure 85/64 123/68 (mmHg) O2 Sat by Pulse 97 96 Oximetry 05/14/18 05/14/18 05/14/18 10:00 10:01 10:10 Temperature Pulse Rate 109 109 112 Respiratory 20 14 15 Rate Blood Pressure 77/57 130/87 (mmHg) O2 Sat by Pulse 95 94 97 Oximetry 05/14/18 05/14/18 05/14/18 10:29 11:00 11:20 Temperature Pulse Rate 108 102 Respiratory 12 12 12 Rate Blood Pressure 128/70 (mmHg) O2 Sat by Pulse 94 Oximetry Oxygen Devices in Use Now: Nasal Cannula Appearance: NAD, laying in bed Ears/Nose/Mouth/Throat: Mucous Membranes Moist Skin: - - See skin note below Result Diagrams: 05/18/18 13:56 05/19/18 05:50 Microbiology and Other Data: Microbiology 04/29/18 23:00 Nasal Screen MRSA (PCR) - Final Nasal Mrsa Not Detected Skin Deviation Note - Skin Deviation Findings Left lateral thigh - There are areas of induration and deep purple discoloration. Small scabbed area to the upper lateral thigh. Left medial thigh - Areas of induration and purplish discolorations. There is also an incision with sutures intact from a skin biopsy. Right medial thigh - Areas of induration and purplish discoloration. Left lateral thigh and side - Areas of induration and purplish discoloration. There are 3superfical open areas. The upper most thigh lesion measures 1.3 cm x 0..7 cm x 0.1 cm and the lower thigh open areas measure 1.5 cm x 2 cm x 0.1 cm. The lateral hip lesion measures 2 cm x 2 cm x 0.1 cm. Buttocks - Area around the anus is mostly closed and areas of excoriation gone. There are now lesions at the sacrum and left buttock. These areas measure 9 cm x 6 cm x 0.1 cm and 2.5 cm x 1 cm c 0.1 cm. Right lateral thigh - There are areas of induration and purple discoloration. Assessment/Plan: Ms. Wright is a 37 yo female ESRD on PD, PAD s/p femoral stents, COPD with chronic resp failure and active smoking on 5L O2, IDDM, chronic pain on methadone, unconfirmed CAD, and recent admission at the end of March for PNA , returning with b/l thigh pain found with indurated raised lesions over thighs concerning for calciphylaxis now on sodium thiosulfate IV. Hospital course complicated by respiratory failure likely from PNA requiring intubation, extubated on 05/05. . Bilateral LE lesions. Skin biopsy shows Calciphylaxis. Currently on sodium thiosulfate. The area involved has increased this week and there are a few areas that are starting to open up/scab in a few spots. Leave areas open to air for now. Recommend frequent turning and repositioning. 2. Excoriated buttocks. Diarrhea has resolved and skin around the anus is healing. Continue to use Calmoseptine cream as a barrier cream. 3. Diabetes Mellitus, type 2. HgA1C 8.8. Continue to maintain good glycemic control to allow for wound healing. 4. ESRD on PD. 5. Peripheral arterial disease. S/P femoral stents. 6. Diet. Renal, consistent carbohydrate diet. 7. Code Status. Full Code. 8. Disposition. Disposition per primary medicine team. TIME SPENT: Time for this wound consultation was 30 minutes, 20 minutes was spent at the bedside assessing, measuring, and photographing the wounds. Wound Problem/Plan Is Patient a Wound Clinic Patient: No Attending: Freda Prasad
--- NOTE | 2018-05-14 13:50 | CONSULT ---
Palliative / Hospice Consult Ordering Provider: Victoria Hernández - PCP-Will - Subjective Code Status: Full Code Advance Directives Location: No Advance Directives - History or Present Illness History or Present Illness: 37 yo female with ESRD on dialysis and COPD on 5 liter O2 presents to ER with leg pain and abd pain. Pt was admitted due to level of pain and some abnormal lab values. While on the floor pt experienced SOB was intubated and transferred to the ICU(05/02) extubated transferred back to the floor and has had 2 more trips back to the ICU where she is currently. PMH is significant for CHF diastolic, DM, CAD, chronic pain, diabetic neuropathy on methadone and gabapentin, severe PAD, GERD, gastroparesis, hyperlipidemia, anxiety, depression and HTN. 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 Spoke with pt and her significant other about quality of life wh pt expressed isn't great right now. Depression screen is positive pt reports not much improvement with Zoloft. We discussed MOLST but pt wants to be full code even when she expressed how much discomfort/pain she is in. All information is from pt and medical record. At home she gets up to use the bathroom, goes from bed to chair. Pt is tobacco user/ no etoh/ no drug use. Reviewed case with pt's nurse. Lab Values: Abnormal Lab Results 05/13/18 05/13/18 05/13/18 13:39 14:05 17:25 RBC (Retic) Hgb Hct HCT (Retic) Retic Count, Calc Corrected Retic Count Retic Shift Factor Retic Production Index Immature Retic Fraction Mean Retic Volume VBG pH VBG pCO2 VBG pO2 VBG HCO3 VBG O2 Saturation VBG Base Excess Sodium Potassium Chloride Carbon Dioxide Anion Gap BUN Creatinine Est GFR ( Amer) Est GFR (Non-Af Amer) BUN/Creatinine Ratio Glucose POC Glucose (mg/dL) 52 L 73 238 H Calcium Iron TIBC % Saturation Unsat Iron Binding Transferrin Ferritin 05/13/18 05/14/18 05/14/18 21:38 00:14 05:45 RBC (Retic) Hgb Hct HCT (Retic) Retic Count, Calc Corrected Retic Count Retic Shift Factor Retic Production Index Immature Retic Fraction Mean Retic Volume VBG pH VBG pCO2 VBG pO2 VBG HCO3 VBG O2 Saturation VBG Base Excess Sodium 140 Potassium 3.8 Chloride 85 L Carbon Dioxide 18 L Anion Gap 37 H BUN 40 H Creatinine 6.54 H Est GFR ( Amer) 8.6 Est GFR (Non-Af Amer) 7.1 BUN/Creatinine Ratio 6.1 L Glucose 243 H POC Glucose (mg/dL) 139 H 195 H Calcium 8.5 L Iron TIBC % Saturation Unsat Iron Binding Transferrin Ferritin 05/14/18 05/14/18 05/14/18 05:45 05:45 07:35 RBC (Retic) 2.16 L Hgb Hct HCT (Retic) 19 L Retic Count, Calc 1.7 H Corrected Retic Count 0.7 Retic Shift Factor 2.5 Retic Production Index 0.30 Immature Retic Fraction 0.48 Mean Retic Volume 106.8 VBG pH VBG pCO2 VBG pO2 VBG HCO3 VBG O2 Saturation VBG Base Excess Sodium Potassium Chloride Carbon Dioxide Anion Gap BUN Creatinine Est GFR ( Amer) Est GFR (Non-Af Amer) BUN/Creatinine Ratio Glucose POC Glucose (mg/dL) 213 H Calcium Iron < 17 L TIBC 126 L % Saturation 13 L Unsat Iron Binding < 111 Transferrin 90 L Ferritin 430.8 H 05/14/18 05/14/18 05/14/18 09:10 09:10 11:57 RBC (Retic) Hgb 7.0 L Hct 22 L HCT (Retic) Retic Count, Calc Corrected Retic Count Retic Shift Factor Retic Production Index Immature Retic Fraction Mean Retic Volume VBG pH 7.23 L VBG pCO2 48 VBG pO2 54.0 H VBG HCO3 18.6 L VBG O2 Saturation 80.7 H VBG Base Excess -7.5 L Sodium Potassium Chloride Carbon Dioxide Anion Gap BUN Creatinine Est GFR ( Amer) Est GFR (Non-Af Amer) BUN/Creatinine Ratio Glucose POC Glucose (mg/dL) 88 Calcium Iron TIBC % Saturation Unsat Iron Binding Transferrin Ferritin Laboratory Last Values WBC 28.7 10^3/uL (3.5-10.8) H 05/13/18 04:43 RBC 2.81 10^6 /uL (3.70-4.87) L 05/13/18 04:43 RBC (Retic) 2.16 10^6/uL (3.70-4.87) L 05/14/18 05:45 Hgb 7.0 g/dL (12.0-16.0) L 05/14/18 09:10 Hct 22 % (33-41) L 05/14/18 09:10 HCT (Retic) 19 % (33-41) L 05/14/18 05:45 MCV 88 fL (80-97) 05/13/18 04:43 MCH 28 pg (27-31) 05/13/18 04:43 MCHC 32 g/dL (31-36) 05/13/18 04:43 RDW 17 % (10.5-15) H 05/13/18 04:43 Plt Count 538 10^3/uL (150-450) H 05/13/18 04:43 MPV 8.3 fL (7.4-10.4) 05/13/18 04:43 Neut % (Auto) 96.1 % 05/13/18 04:43 Lymph % (Auto) 1.6 % 05/13/18 04:43 [place] % (Auto) 2.1 % 05/13/18 04:43 Eos % (Auto) 0 % 05/13/18 04:43 Baso % (Auto) 0.2 % 05/13/18 04:43 Absolute Neuts (auto) 27.6 10^3/ul (1.5-7.7) H 05/13/18 04:43 Absolute Lymphs (auto) 0.5 10^3/ul (1.0-4.8) L 05/13/18 04:43 Absolute Monos (auto) 0.6 10^3/ul (0-0.8) 05/13/18 04:43 Absolute Eos (auto) 0 10^3/ul (0-0.6) 05/13/18 04:43 Absolute Basos (auto) 0.1 10^3/ul (0-0.2) 05/13/18 04:43 Absolute Nucleated RBC 0.1 10^3/ul 05/13/18 04:43 Nucleated RBC % 0.2 05/13/18 04:43 ESR 126 mm/Hr (0-20) H 05/04/18 12:09 Retic Count, Calc 1.7 % (0.5-1.5) H 05/14/18 05:45 Corrected Retic Count 0.7 % (0.5-1.5) 05/14/18 05:45 Retic Shift Factor 2.5 05/14/18 05:45 Retic Production Index 0.30 05/14/18 05:45 Immature Retic Fraction 0.48 05/14/18 05:45 Mean Retic Volume 106.8 05/14/18 05:45 INR (Anticoag Therapy) 1.68 (0.77-1.02) H 05/12/18 06:00 APTT 55.6 seconds (26.0-36.3) H 04/29/18 19:13 Patient Temperature Not Reportable 05/13/18 06:30 ABG pH 7.07 (7.35-7.45) L* 05/13/18 06:30 ABG pH (Temp Correct) Not Reportable 05/13/18 06:30 ABG pCO2 54 mmHg (35-45) H 05/13/18 06:30 ABG pCO2 (Temp Corrct Not Reportable 05/13/18 06:30 ABG pO2 76 mmHg (80-100) L 05/13/18 06:30 ABG pO2 (Temp Correct Not Reportable 05/13/18 06:30 ABG HCO3 13.3 mmol/L (19-31) L 05/13/18 06:30 ABG O2 Saturation 94.0 % (94.0-98.0) 05/13/18 06:30 ABG Base Excess -14.7 mmol/L (-2.0-2.0) L 05/13/18 06:30 VBG pH 7.23 (7.32-7.43) L 05/14/18 09:10 VBG pCO2 48 mmHg (41-51) 05/14/18 09:10 VBG pO2 54.0 mmHg (35-45) H 05/14/18 09:10 VBG HCO3 18.6 mmol/L (24-28) L 05/14/18 09:10 VBG O2 Saturation 80.7 % (70-80) H 05/14/18 09:10 VBG Base Excess -7.5 mmol/L (0.0-4.0) L 05/14/18 09:10 Respiration Rate Not Reportable 05/13/18 06:30 O2 Delivery Device oxymask 05/13/18 06:30 Ventilator Type Not Reportable 05/13/18 06:30 Vent Mode Not Reportable 05/13/18 06:30 FiO2 Not Reportable 05/13/18 06:30 Inspiratory Time Not Reportable 05/13/18 06:30 PEEP Not Reportable 05/13/18 06:30 Pressure Support Not Reportable 05/13/18 06:30 Pressure Control Not Reportable 05/13/18 06:30 EPAP Not Reportable 05/13/18 06:30 IPAP Not Reportable 05/13/18 06:30 BiPAP Not Reportable 05/13/18 06:30 Sodium 140 mmol/L (135-145) 05/14/18 05:45 Potassium 3.8 mmol/L (3.5-5.0) 05/14/18 05:45 Chloride 85 mmol/L (101-111) L 05/14/18 05:45 Carbon Dioxide 18 mmol/L (22-32) L 05/14/18 05:45 Anion Gap 37 mmol/L (2-11) H 05/14/18 05:45 BUN 40 mg/dL (6-24) H 05/14/18 05:45 Creatinine 6.54 mg/dL (0.51-0.95) H 05/14/18 05:45 Est GFR ( Amer) 8.6 (>60) 05/14/18 05:45 Est GFR (Non-Af Amer) 7.1 (>60) 05/14/18 05:45 BUN/Creatinine Ratio 6.1 (8-20) L 05/14/18 05:45 Glucose 243 mg/dL (70-100) H 05/14/18 05:45 POC Glucose (mg/dL) 88 mg/dL (70-100) 05/14/18 11:57 Hemoglobin A1c 8.8 % (4.0-5.6) H 05/01/18 05:24 Lactic Acid 0.5 mmol/L (0.5-2.0) 05/13/18 07:55 Calcium 8.5 mg/dL (8.6-10.3) L 05/14/18 05:45 Phosphorus 8.7 mg/dL (2.5-5.0) H 05/13/18 04:43 Magnesium 2.2 mg/dL (1.9-2.7) 05/13/18 04:43 Iron < 17 ug/dL (50-212) L 05/14/18 05:45 TIBC 126 mcg/dL (250-450) L 05/14/18 05:45 % Saturation 13 % (15-55) L 05/14/18 05:45 Unsat Iron Binding < 111 ug/dL 05/14/18 05:45 Transferrin 90 mg/dL (203-362) L 05/14/18 05:45 Ferritin 430.8 ng/mL (11-307) H 05/14/18 05:45 Total Bilirubin 0.30 mg/dL (0.2-1.0) 05/02/18 05:49 AST 12 U/L (13-39) L 05/02/18 05:49 ALT 12 U/L (7-52) 05/02/18 05:49 Alkaline Phosphatase 117 U/L (34-104) H 05/02/18 05:49 Total Creatine Kinase 27 U/L (10-223) 05/01/18 05:24 Troponin I 0.18 ng/mL (<0.04) H* 05/02/18 05:49 C-Reactive Protein 187.85 mg/L (<8.01) H 05/13/18 07:55 C-React Prot High Sens 201.62 mg/L (<2.00) H 05/04/18 12:09 B-Natriuretic Peptide > 1300 pg/mL (<=100) H 05/13/18 07:55 Total Protein 6.3 g/dL (6.4-8.9) L 05/02/18 05:49 Albumin 2.8 g/dL (3.2-5.2) L 05/02/18 05:49 Globulin 3.5 g/dL (2-4) 05/02/18 05:49 Albumin/Globulin Ratio 0.8 (1-3) L 05/02/18 05:49 25-OH Vitamin D Total < 7.0 ng/mL (20-50) L 05/11/18 08:00 PTH Intact 85.8 pmol/L (1.3-9.3) H 05/11/18 08:00 Calcium (PTH Intact) 8.9 mg/dL (8.6-10.3) 05/11/18 08:00 RBC Total Porphyrins 47 mcg/dL (<80) 05/01/18 22:40 RBC Porphyrins Interp See comment 05/01/18 22:40 Plasma Total Porphyrins <1.0 mcg/dL (<=1.0) 05/01/18 22:40 Plasma Porphyrin Intrp See comment 05/01/18 22:40 Urine Color Yellow 04/30/18 20:20 Urine Appearance Turbid 04/30/18 20:20 Urine pH 5.0 (5-9) 04/30/18 20:20 Ur Specific [place] 1.027 (1.010-1.030) 04/30/18 20:20 Urine Protein 2+(100 mg/dl) (Negative) A 04/30/18 20:20 Urine Ketones Trace (Negative) A 04/30/18 20:20 Urine Blood Negative (Negative) 04/30/18 20:20 Urine Nitrate Negative (Negative) 04/30/18 20:20 Urine Bilirubin Negative (Negative) 04/30/18 20:20 Urine Urobilinogen Negative (Negative) 04/30/18 20:20 Ur Leukocyte Esterase 2+ (Negative) A 04/30/18 20:20 Urine WBC (Auto) 3+(>20/hpf) (Absent) A 04/30/18 20:20 Urine RBC (Auto) 3+(>10/hpf) (Absent) A 04/30/18 20:20 Ur Squamous Epith Cells Present (Absent) A 04/30/18 20:20 Urine Bacteria Absent (Absent) 04/30/18 20:20 Urine Glucose 2+(150 mg/dl) (Negative) A 04/30/18 20:20 Fluid Source Peritonial fluid 05/02/18 13:00 Fluid Volume 3 mL 05/02/18 13:00 Fluid Color Colorless 05/02/18 13:00 Fluid Appearance Clear 05/02/18 13:00 Fluid WBC 3 /mcL (0-831114) 05/02/18 13:00 Fluid RBC 0 /mcL 05/02/18 13:00 Fluid Tot Cell Count 20 05/02/18 13:00 Fluid Neutrophils 15 % 05/02/18 13:00 Fluid Lymphocytes 20 % 05/02/18 13:00 Fluid Monocytes 65 % 05/02/18 13:00 Fluid Other Cells 1 05/02/18 13:00 Fluid Cell Count Rvw By 05/02/18 13:00 Random Vancomycin 19.6 mcg/mL 05/05/18 04:35 Result Reviewed By See comment 05/01/18 22:40 Blood Type O Positive 05/11/18 00:00 Antibody Screen Negative 05/11/18 00:00 Crossmatch See Detail 05/11/18 00:00 - Objective Active Medications: Acetaminophen (Tylenol Tab*) 650 mg PO Q6H PRN PRN Reason: PAIN Last Admin: 05/10/18 14:04 Dose: 650 mg Al Hydrox/Mg Hydrox/Simethicone (Maalox Plus*) 30 ml PO Q6H PRN PRN Reason: DYSPEPSIA Last Admin: 05/07/18 05:22 Dose: 30 ml Albuterol (Ventolin 2.5 Mg/3 Ml Neb.Kaylynn*) 2.5 mg INH Q4HR PRN PRN Reason: SOB/WHEEZING Last Admin: 05/11/18 13:17 Dose: 2.5 mg Albuterol/Ipratropium (Duoneb (Albuterol 2.5 Mg/Ipratropium 0.5 Mg)) 1 neb INH RT.[id number] AWAKE PRN PRN Reason: SOB/WHEEZING Apixaban (Eliquis*) 2.5 mg PO BID [facility] Last Admin: 05/14/18 08:30 Dose: 2.5 mg Cinacalcet (Sensipar Tab*) 90 mg PO BID [facility] Last Admin: 05/14/18 08:29 Dose: 90 mg Clopidogrel Bisulfate (Plavix Tab*) 75 mg PO DAILY [facility] Last Admin: 05/14/18 08:29 Dose: 75 mg Dextrose (D50w Syringe 50 Ml*) 25 gm IV PUSH .FOR FS < 60 - SS PRN PRN Reason: FS < 60 Hydromorphone HCl (Dilaudid Inj1s*) 2 mg IV SLOW PU Q4H PRN PRN Reason: PAIN Sodium Thiosulfate 25 gm/ (Sodium Chloride) 200 mls @ 200 mls/hr IV SuMoWeFr@ 2000 [facility] Insulin Human Lispro (Humalog*) 0 units SUBCUT ACHS [facility]; Protocol Last Admin: 05/14/18 11:59 Dose: Not Given Lidocaine HCl (Lidocaine 2% Jelly*) 1 applic TOPICAL TID [facility] Last Admin: 05/14/18 08:31 Dose: Not Given Methadone HCl (Dolophine Tab*) 10 mg PO Q12H [facility] Last Admin: 05/14/18 05:50 Dose: 10 mg Midodrine (Midodrine (Nf)) 10 mg PO BID [facility]; Protocol Last Admin: 05/14/18 08:31 Dose: 10 mg Mometasone Furoate/Formoterol Fumar (Dulera 200/5 Mdi*) 2 puff INH BID [facility]; Protocol Last Admin: 05/14/18 10:27 Dose: Not Given Mupirocin (Bactroban 2 % Oint*) 1 applic TOPICAL DAILY [facility] Last Admin: 05/14/18 08:31 Dose: Not Given Ondansetron HCl (Zofran Inj*) 4 mg IV Q6H PRN PRN Reason: NAUSEA Last Admin: 05/14/18 09:26 Dose: 4 mg Oxymetazoline HCl (Afrin 0.05% Nasal [place]*) 2 spray BOTH NARES BID [facility] Last Admin: 05/14/18 08:31 Dose: Not Given Pantoprazole Sodium (Protonix Tab*) 40 mg PO BID [facility] Last Admin: 05/14/18 08:30 Dose: 40 mg Sertraline HCl (Zoloft*) 25 mg PO DAILY [facility] Last Admin: 05/14/18 08:30 Dose: 25 mg Sevelamer Carbonate (Renvela Tab*) 800 mg PO TID [facility] Last Admin: 05/14/18 08:30 Dose: 800 mg Sodium Bicarbonate (Sodium Bicarbonate (Antacid)*) 1,300 mg PO QID [facility] Vital Signs: Vital Signs: Temp Pulse Resp BP Pulse Ox 97.4 F 105 13 124/79 99 05/14/18 04:00 05/14/18 13:01 05/14/18 13:01 05/14/18 13:01 05/14/18 13:01 Patient Weight: Weight 89.5 kg Intake and Output: Intake & Output 05/12/18 05/13/18 05/14/18 05/15/18 06:59 06:59 06:59 06:59 Intake Total 670 344 791 240 Balance 670 344 791 240 Weight 87 kg 89.5 kg Intake: IV Fluids 200 244 791 Sodium bicarb 791 protonix 244 thiosulfate 200 IVPB 350 protonix 350 Oral 120 100 0 240 Other: Date of Last Bowel 05/14/2018 Movement # Bowel Movements 2 Estimated Stool Amount Small ADLs: Meal Record Start: 04/29/18 21: 19 Freq: DAILY@0900,1400,1800 Status: Complete Protocol: Created 04/29/18 21:19 System (Rec: 04/29/18 21:19 System TELE-M15) Document 04/30/18 09:00 [id number] (Rec: 04/30/18 13:52 PFU2450 TELE-C10) Document 04/30/18 14:00 VHT5842 (Rec: 04/30/18 15:02 THQ2898 TELE-C10) Document 04/30/18 18:00 DSR0711 (Rec: 04/30/18 19:27 YDR6592 TELE-C10) Document 05/01/18 09:00 RKU7441 (Rec: 05/01/18 14:44 PEI9522 TELE-C10) Document 05/01/18 14:00 XQV4491 (Rec: 05/01/18 14:44 OGQ1854 TELE-C10) Document 05/01/18 18:00 NLH5439 (Rec: 05/01/18 19:43 YYH6068 TELE-C10) ADLs: Meal Record Start: 05/02/18 07: 16 Freq: 09,13,18 Status: Active Protocol: Created 05/02/18 07:16 [id number] (Rec: 05/02/18 07:16 DXP1636 ICU-C12) Document 05/02/18 09:00 BEH8236 (Rec: 05/02/18 09:36 TAR0876 ICU-C07) Document 05/02/18 13:00 EKM1414 (Rec: 05/02/18 13:05 CCO7528 ICU-C07) Document 05/02/18 18:00 QZG2811 (Rec: 05/02/18 18:11 ENO5362 ICU-C10) Document 05/06/18 09:00 MHW4321 (Rec: 05/06/18 09:43 MME5707 ICU-C15) Document 05/06/18 18:00 AYZ9462 (Rec: 05/06/18 18:42 NNP6381 TELE-C01) Document 05/07/18 09:00 VPY3731 (Rec: 05/07/18 15:25 NCN3017 TELE-C03) Document 05/07/18 13:00 IYM9394 (Rec: 05/07/18 15:26 YPM4036 TELE-C03) Document 05/07/18 18:00 NTC2938 (Rec: 05/07/18 22:15 FLT8065 TELE-C01) Document 05/08/18 09:00 GHF5709 (Rec: 05/08/18 15:03 CWH8057 TELE-C05) Document 05/08/18 13:00 WNJ2148 (Rec: 05/08/18 15:04 QSD6576 TELE-C05) Document 05/08/18 18:00 DAW8272 (Rec: 05/08/18 21:56 FUB9207 TELE-C08) Document 05/09/18 09:00 SCC1281 (Rec: 05/09/18 16:41 BQX5384 TELE-C11) Document 05/09/18 13:00 EVT0581 (Rec: 05/09/18 21:33 HIE7464 TELE-C06) Document 05/09/18 18:00 HAW4724 (Rec: 05/09/18 21:34 MLZ3889 TELE-C01) Document 05/10/18 09:00 HQB2840 (Rec: 05/10/18 10:37 LGD4046 TELE-C13) Document 05/10/18 13:00 YZU0779 (Rec: 05/10/18 14:35 USZ9097 TELE-C13) Document 05/10/18 18:00 UBL5639 (Rec: 05/10/18 22:27 VQF1365 TELE-C09) Document 05/11/18 09:00 GNO2690 (Rec: 05/11/18 09:26 GZT7290 ICU-C16) Document 05/11/18 14:52 SKD7678 (Rec: 05/11/18 14:52 FKQ0044 ICU-C16) Document 05/11/18 18:00 DTF7867 (Rec: 05/11/18 22:29 ZBP2267 ICU-C25) Document 05/12/18 09:00 ORL1296 (Rec: 05/12/18 10:34 IPJ0805 ICU-M33) Document 05/12/18 14:42 ZTZ0394 (Rec: 05/12/18 14:42 BEB7516 ICU-M33) Document 05/13/18 21:39 AQP5595 (Rec: 05/13/18 21:39 NZX3299 ICU-M34) Document 05/14/18 09:00 RDJ2773 (Rec: 05/14/18 10:28 BHG4482 ICU-C07) ADLs: Meal Record Start: 05/12/18 15: 52 Freq: Status: Complete Protocol: Created 05/12/18 15:52 SPO2579 (Rec: 05/12/18 15:52 COS6216 TELE-C08) Intake and Output Start: 04/29/18 18: 19 Freq: Status: Complete Protocol: Created 04/29/18 18:19 System (Rec: 04/29/18 18:19 System EDRM-C04) Intake and Output Start: 04/29/18 21: 19 Freq: DAILY@0600,1400,2200 Status: Complete Protocol: Created 04/29/18 21:19 System (Rec: 04/29/18 21:19 System TELE-M15) Document 04/30/18 06:00 GVO7800 (Rec: 04/30/18 06:47 UWJ4649 TELE-C03) Document 04/30/18 14:00 BYV9207 (Rec: 04/30/18 15:02 JRB6052 TELE-C10) Document 04/30/18 22:00 XGF5397 (Rec: 04/30/18 22:07 KLC9659 TELE-C10) Document 05/01/18 05:58 HEM7223 (Rec: 05/01/18 05:59 AHK9595 HOSP-C11) Document 05/01/18 14:00 GPR8930 (Rec: 05/01/18 14:46 MGJ7620 TELE-C10) Document 05/01/18 22:00 UEH6194 (Rec: 05/01/18 22:28 YDW7472 TELE-C09) Intake and Output Start: 05/02/18 07: 16 Freq: QSHIFT Status: Active Protocol: Created 05/02/18 07:16 AFO3967 (Rec: 05/02/18 07:16 BMI9610 ICU-C12) Document 05/02/18 08:00 OTV8472 (Rec: 05/02/18 08:21 CED4628 ICU-M35) Document 05/02/18 11:44 LEV8263 (Rec: 05/02/18 11:44 KMR1074 ICU-C07) Document 05/02/18 16:00 CXV3025 (Rec: 05/02/18 18:06 FOD9363 ICU-C10) Document 05/03/18 00:00 RIT6999 (Rec: 05/03/18 00:48 AEQ2947 ISDEMO-M03 ) Document 05/03/18 06:07 WPY9649 (Rec: 05/03/18 06:07 HCL6643 ISDEMO-M03 ) Document 05/03/18 08:00 VNO6646 (Rec: 05/03/18 12:31 HRF6081 ICU-C16) Document 05/03/18 12:00 AYN2266 (Rec: 05/03/18 17:36 OIT3763 ICU-C16) Co-Sign 05/03/18 12:00 JVV8392 Document 05/03/18 16:00 QON0233 (Rec: 05/03/18 18:03 KNW3207 ICU-C16) Document 05/03/18 21:15 WZC4069 (Rec: 05/04/18 03:56 IYN9765 ICU-L03) Document 05/04/18 03:30 XMA9850 (Rec: 05/04/18 03:56 LJJ9205 ICU-L03) Document 05/04/18 08:00 AZW2366 (Rec: 05/04/18 11:39 JYJ4134 ICU-C16) Document 05/05/18 00:58 MPM0152 (Rec: 05/05/18 00:58 IZF4240 ISDEWI-M03 ) Document 05/05/18 08:00 CBM6841 (Rec: 05/05/18 12:22 FIM2800 ICU-C16) Document 05/05/18 20:00 PZO0492 (Rec: 05/05/18 20:12 IIH1093 ICU-C15) Document 05/06/18 08:00 AAR6294 (Rec: 05/06/18 09:42 UMQ4522 ICU-C15) Document 05/06/18 10:58 CCC6583 (Rec: 05/06/18 10:58 CZO1573 ICU-C15) Document 05/06/18 20:00 MTY1249 (Rec: 05/06/18 22:42 GIE5352 TELE-C01) Document 05/07/18 08:00 HAA8604 (Rec: 05/07/18 10:57 RNX0437 TELE-C03) Document 05/07/18 20:00 PFR6103 (Rec: 05/07/18 22:16 DKV1399 TELE-C01) Document 05/08/18 08:00 EKV9270 (Rec: 05/08/18 15:02 PKZ9183 TELE-C05) Document 05/08/18 22:00 SRX1575 (Rec: 05/08/18 22:40 NFX0673 TELE-C08) Document 05/09/18 08:00 SLP3312 (Rec: 05/09/18 09:55 AVM9670 TELE-M02) Document 05/09/18 20:00 RNQ8807 (Rec: 05/09/18 22:54 FZO8218 TELE-C01) Document 05/10/18 08:00 KTJ1019 (Rec: 05/10/18 10:31 VLS7228 TELE-C13) Document 05/10/18 20:00 QPG4255 (Rec: 05/10/18 22:27 CJC5494 TELE-C09) Document 05/11/18 05:36 DMI0743 (Rec: 05/11/18 05:37 CRV5020 ICU-C25) Document 05/11/18 20:00 KXL1693 (Rec: 05/12/18 02:00 KKJ6983 ICU-C25) Document 05/12/18 08:00 JMJ0470 (Rec: 05/12/18 11:01 ZUB9639 ICU-L03) Document 05/13/18 20:00 IBP3439 (Rec: 05/13/18 21:32 BXZ3562 ICU-C06) Document 05/14/18 08:00 SRT6824 (Rec: 05/14/18 10:28 QMC8287 ICU-C07) Eyes: No Scleral Icterus Ears/Nose/Mouth/Throat: Mucous Membranes Moist Neck: NL Appearance and Movements; NL JVP Cardiovascular: RRR Respiratory: Symmetrical Chest Expansion and Respiratory Effort - slight wheeze on left side Abdominal: NL Sounds; No Tenderness; No Distention Extremities: - - LE lesions unchanged - Assessment Assessment: 37 yo female with multiple complex medical problems who is eligible for hospice but not interested - Plan Consult Plan (MU): Other - Hospice eligible but not interested Plan: Long discussion with pt and her boyfriend, She realizes she will have to go to SNF for rehab but wants eventually to go back home. Did explain that it would depend on PT evaluation and whether or not she can show improvement. Her boyfriend says she does have 24hr small animal caretaker coverage. Also talked about adding [facility] or [facility] if in an eligible area once discharged from [facility]. Wonder if changing her anti-depression med might help. Still experiencing pain from the calciphylaxus affected areas. I mentioned hospice but pt was not interested at this time. Pt is not always completely coherent. KPS 30% PPS 40%. Discussed my impression with bsa/aml compliance officer and charge nurse. - Time On Unit Date of Evaluation: 05/14/18 Hospice Consult Time in: 12:00 Hospice Consult Time Out: 01:30 Hospice Consult Time Total: -630 > 50% of Time Spend In Counseling or Coordinating Care: Yes
[2018-05-14] MEDS: Albuterol/Ipratropium NEB.SOL* Albuterol 2.5 MG/Ipratropium 0.5 MG 3 ML INH PRN ×2 (13:55→20:20)
[2018-05-14] MEDS: HYDROmorphone INJ1* 1 MG/ML SYRINGE IV SLOW PU PRN ×2 (14:35→21:08)
[2018-05-14] MEDS: Sodium Bicarbonate (ANTACID)* 650 MG TAB PO SCH ×3 (14:36→21:31)
--- NOTE | 2018-05-14 17:05 | PN ---
Date of Service: 05/14/18 Critical Care Services: 37W with complicated medical history including ESRD on PD, PAD s/p femoral stents on warfarin, COPD with chronic resp failure and active smoking on 5L O2, IDDM, chronic pain on methadone, unconfirmed CAD, and recent admission at the end of March for PNA, returning with b/l thigh pain found with indurated raised lesions over thighs concerning for calciphylaxis now on sodium thiosulfate IV. With persistent leukocytosis (chronic), supratherapeutic INR. Hospital course complicated by respiratory failure likely from PNA requiring intubation, extubated on 05/05. 05/13: Patient underwent incisional biopsy of left thigh lesion on 05/12/[address] Tommie Salinas pathology consistent with caciphylaxis. Overnight hospitalist was asked to evaluate patient around 2250 due to mental status changes- poorly responsive to verbal stimuli with constricted pupil. Symptoms were attributed to overzealous opiate usage due to acute post surgical pain with concomitant acute acidosis- with acute metabolic and respiratory derangements. She was sent to the ICU for BIPAP need. 05/14: Patient off BIPAP. Complains of ongoing pain and nausea. Episodes of somnolence but easily aroused. Vital Signs: Temp Pulse Resp BP SpO2 FiO2 97.4 F 105 14 124/79 92 50 05/14/18 04:00 05/14/18 13:59 05/14/18 14:35 05/14/18 13:01 05/14/18 13:59 05/14 07:38 Physical Exam: Gen: NAD, laying bed HEENT:NCAT, EOMI, no scleral icterus, neck supple Lungs:air entry bilaterally, no wheezes Cardiac: +S1, S2, RRR Abdomen:SNTND, +bowel sounds Extremities:no edema, + generalized ecchymosis/livedo reticularis Neuro:somnolent but easily aroused, non-focal Fluid Balance (Past 24 Hours): I= O= Net Intake & Output 05/12/18 05/13/18 05/14/18 05/15/18 06:59 06:59 06:59 06:59 Intake Total 670 344 791 240 Balance 670 344 791 240 Weight 191 lb 12.835 oz 197 lb 5.019 oz Intake: IV Fluids 200 244 791 Sodium bicarb 791 protonix 244 thiosulfate 200 IVPB 350 protonix 350 Oral 120 100 0 240 Other: Date of Last Bowel 05/14/2018 Movement # Bowel Movements 2 Estimated Stool Amount Small ADLs: Meal Record Start: 04/29/18 21: 19 Freq: DAILY@0900,1400,1800 Status: Complete Protocol: Created 04/29/18 21:19 System (Rec: 04/29/18 21:19 System TELE-M15) Document 04/30/18 09:00 [id number] (Rec: 04/30/18 13:52 TFK2079 TELE-C10) Document 04/30/18 14:00 MXG3045 (Rec: 04/30/18 15:02 PGI9760 TELE-C10) Document 04/30/18 18:00 JAW6687 (Rec: 04/30/18 19:27 ZFS8039 TELE-C10) Document 05/01/18 09:00 GPP0925 (Rec: 05/01/18 14:44 LSD1682 TELE-C10) Document 05/01/18 14:00 GFZ8226 (Rec: 05/01/18 14:44 PRO3709 TELE-C10) Document 05/01/18 18:00 OWM0581 (Rec: 05/01/18 19:43 USM7425 TELE-C10) ADLs: Meal Record Start: 05/02/18 07: 16 Freq: 09,13,18 Status: Active Protocol: Created 05/02/18 07:16 LOJ1223 (Rec: 05/02/18 07:16 VNP1841 ICU-C12) Document 05/02/18 09:00 QJU7083 (Rec: 05/02/18 09:36 BAL8554 ICU-C07) Document 05/02/18 13:00 PXJ9721 (Rec: 05/02/18 13:05 OLK9404 ICU-C07) Document 05/02/18 18:00 VJU3987 (Rec: 05/02/18 18:11 TXG2430 ICU-C10) Document 05/06/18 09:00 ZLX4244 (Rec: 05/06/18 09:43 KIO1782 ICU-C15) Document 05/06/18 18:00 PCX5640 (Rec: 05/06/18 18:42 KNA9553 TELE-C01) Document 05/07/18 09:00 WZX9863 (Rec: 05/07/18 15:25 MQO0715 TELE-C03) Document 05/07/18 13:00 DTC8442 (Rec: 05/07/18 15:26 FTX0591 TELE-C03) Document 05/07/18 18:00 GMV1896 (Rec: 05/07/18 22:15 YTV0689 TELE-C01) Document 05/08/18 09:00 UIY9996 (Rec: 05/08/18 15:03 OYO1920 TELE-C05) Document 05/08/18 13:00 MGD1950 (Rec: 05/08/18 15:04 NSW1179 TELE-C05) Document 05/08/18 18:00 ZCR8835 (Rec: 05/08/18 21:56 IKQ8988 TELE-C08) Document 05/09/18 09:00 UYU9061 (Rec: 05/09/18 16:41 FKU5955 TELE-C11) Document 05/09/18 13:00 UTT6503 (Rec: 05/09/18 21:33 KPM1856 TELE-C06) Document 05/09/18 18:00 QVL2466 (Rec: 05/09/18 21:34 UAK1009 TELE-C01) Document 05/10/18 09:00 XLR0834 (Rec: 05/10/18 10:37 DQA8632 TELE-C13) Document 05/10/18 13:00 WQX5092 (Rec: 05/10/18 14:35 UVH5624 TELE-C13) Document 05/10/18 18:00 RLL0025 (Rec: 05/10/18 22:27 VBE6328 TELE-C09) Document 05/11/18 09:00 IGV9880 (Rec: 05/11/18 09:26 INB3517 ICU-C16) Document 05/11/18 14:52 XVL0697 (Rec: 05/11/18 14:52 YOQ9748 ICU-C16) Document 05/11/18 18:00 NWM5625 (Rec: 05/11/18 22:29 HZA7759 ICU-C25) Document 05/12/18 09:00 AUG7158 (Rec: 05/12/18 10:34 KWB6462 ICU-M33) Document 05/12/18 14:42 KJY8736 (Rec: 05/12/18 14:42 ITC2878 ICU-M33) Document 05/13/18 21:39 LTB1348 (Rec: 05/13/18 21:39 YVD9598 ICU-M34) Document 05/14/18 09:00 VJX2362 (Rec: 05/14/18 10:28 VYS7068 ICU-C07) ADLs: Meal Record Start: 05/12/18 15: 52 Freq: Status: Complete Protocol: Created 05/12/18 15:52 GAA8941 (Rec: 05/12/18 15:52 CQJ1983 TELE-C08) Intake and Output Start: 04/29/18 18: 19 Freq: Status: Complete Protocol: Created 04/29/18 18:19 System (Rec: 04/29/18 18: System EDRM-C04) Intake and Output Start: 04/29/18 21: 19 Freq: DAILY@0600,1400,2200 Status: Complete Protocol: Created 04/29/18 21:19 System (Rec: 04/29/18 21:19 System TELE-M15) Document 04/30/18 06:00 OTF0615 (Rec: 04/30/18 06:47 BHV6454 TELE-C03) Document 04/30/18 14:00 MCJ4924 (Rec: 04/30/18 15:02 GYY8384 TELE-C10) Document 04/30/18 22:00 DVK3518 (Rec: 04/30/18 22:07 AFH4183 TELE-C10) Document 05/01/18 05:58 SQS7617 (Rec: 05/01/18 05:59 OOI5743 HOSP-C11) Document 05/01/18 14:00 QLO7824 (Rec: 05/01/18 14:46 UXF0731 TELE-C10) Document 05/01/18 22:00 SJQ3077 (Rec: 05/01/18 22:28 FPL8024 TELE-C09) Intake and Output Start: 05/02/18 07: 16 Freq: QSHIFT Status: Active Protocol: Created 05/02/18 07:16 BMP6117 (Rec: 05/02/18 07:16 DEP1907 ICU-C12) Document 05/02/18 08:00 IFD8023 (Rec: 05/02/18 08:21 LDS6231 ICU-M35) Document 05/02/18 11:44 NJA9348 (Rec: 05/02/18 11:44 QPY7782 ICU-C07) Document 05/02/18 16:00 HSU9944 (Rec: 05/02/18 18:06 CQB6275 ICU-C10) Document 05/03/18 00:00 XFC1317 (Rec: 05/03/18 00:48 HIN5658 ISDEMO-M03 ) Document 05/03/18 06:07 RPY8732 (Rec: 05/03/18 06:07 AMK8720 ISDEMO-M03 ) Document 05/03/18 08:00 NBO1429 (Rec: 05/03/18 12:31 GJO1044 ICU-C16) Document 05/03/18 12:00 GQW1810 (Rec: 05/03/18 17:36 WQN3585 ICU-C16) Co-Sign 05/03/18 12:00 SXB2673 Document 05/03/18 16:00 WYE6315 (Rec: 05/03/18 18:03 BJB8975 ICU-C16) Document 05/03/18 21:15 KBI7132 (Rec: 05/04/18 03:56 PWK5935 ICU-L03) Document 05/04/18 03:30 BEX0371 (Rec: 05/04/18 03:56 YVX4428 ICU-L03) Document 05/04/18 08:00 HNT3202 (Rec: 05/04/18 11:39 LGK4068 ICU-C16) Document 05/05/18 00:58 XVA3819 (Rec: 05/05/18 00:58 IOL9001 [facility]-M03 ) Document 05/05/18 08:00 VCK8571 (Rec: 05/05/18 12:22 GEK8557 ICU-C16) Document 05/05/18 20:00 ZGV1310 (Rec: 05/05/18 20:12 OKB0738 ICU-C15) Document 05/06/18 08:00 DSX4389 (Rec: 05/06/18 09:42 DLP0095 ICU-C15) Document 05/06/18 10:58 COS2046 (Rec: 05/06/18 10:58 GLB5953 ICU-C15) Document 05/06/18 20:00 IMF2755 (Rec: 05/06/18 22:42 ERF4648 TELE-C01) Document 05/07/18 08:00 XHM6810 (Rec: 05/07/18 10:57 AOL2936 TELE-C03) Document 05/07/18 20:00 XDP3684 (Rec: 05/07/18 22:16 MER2339 TELE-C01) Document 05/08/18 08:00 TOH7275 (Rec: 05/08/18 15:02 WSO5874 TELE-C05) Document 05/08/18 22:00 CYM5335 (Rec: 05/08/18 22:40 HSS1420 TELE-C08) Document 05/09/18 08:00 UQR1877 (Rec: 05/09/18 09:55 MSL0793 TELE-M02) Document 05/09/18 20:00 XVJ1003 (Rec: 05/09/18 22:54 CSU3666 TELE-C01) Document 05/10/18 08:00 TIW7701 (Rec: 05/10/18 10:31 BST7314 TELE-C13) Document 05/10/18 20:00 EFU7237 (Rec: 05/10/18 22:27 MZG3787 TELE-C09) Document 05/11/18 05:36 VVU4873 (Rec: 05/11/18 05:37 NCS5435 ICU-C25) Document 05/11/18 20:00 NFM7479 (Rec: 05/12/18 02:00 KST4356 ICU-C25) Document 05/12/18 08:00 KIV3675 (Rec: 05/12/18 11:01 WIZ6041 ICU-L03) Document 05/13/18 20:00 SML4189 (Rec: 05/13/18 21:32 DNJ3060 ICU-C06) Document 05/14/18 08:00 ELY0969 (Rec: 05/14/18 10:28 PGU7920 ICU-C07) Labs: Laboratory Results - last 24 hr 05/13/18 05/13/18 05/14/18 17:25 21:38 00:14 RBC (Retic) Hgb Hct HCT (Retic) Retic Count, Calc Corrected Retic Count Retic Shift Factor Retic Production Index Immature Retic Fraction Mean Retic Volume VBG pH VBG pCO2 VBG pO2 VBG HCO3 VBG O2 Saturation VBG Base Excess Sodium Potassium Chloride Carbon Dioxide Anion Gap BUN Creatinine Est GFR ( Amer) Est GFR (Non-Af Amer) BUN/Creatinine Ratio Glucose POC Glucose (mg/dL) 238 H 139 H 195 H Calcium Iron TIBC % Saturation Unsat Iron Binding Transferrin Ferritin 05/14/18 05/14/18 05/14/18 05:45 05:45 05:45 RBC (Retic) 2.16 L Hgb Hct HCT (Retic) 19 L Retic Count, Calc 1.7 H Corrected Retic Count 0.7 Retic Shift Factor 2.5 Retic Production Index 0.30 Immature Retic Fraction 0.48 Mean Retic Volume 106.8 VBG pH VBG pCO2 VBG pO2 VBG HCO3 VBG O2 Saturation VBG Base Excess Sodium 140 Potassium 3.8 Chloride 85 L Carbon Dioxide 18 L Anion Gap 37 H BUN 40 H Creatinine 6.54 H Est GFR ( Amer) 8.6 Est GFR (Non-Af Amer) 7.1 BUN/Creatinine Ratio 6.1 L Glucose 243 H POC Glucose (mg/dL) Calcium 8.5 L Iron < 17 L TIBC 126 L % Saturation 13 L Unsat Iron Binding < 111 Transferrin 90 L Ferritin 430.8 H 05/14/18 05/14/18 05/14/18 07:35 09:10 09:10 RBC (Retic) Hgb 7.0 L Hct 22 L HCT (Retic) Retic Count, Calc Corrected Retic Count Retic Shift Factor Retic Production Index Immature Retic Fraction Mean Retic Volume VBG pH 7.23 L VBG pCO2 48 VBG pO2 54.0 H VBG HCO3 18.6 L VBG O2 Saturation 80.7 H VBG Base Excess -7.5 L Sodium Potassium Chloride Carbon Dioxide Anion Gap BUN Creatinine Est GFR ( Amer) Est GFR (Non-Af Amer) BUN/Creatinine Ratio Glucose POC Glucose (mg/dL) 213 H Calcium Iron TIBC % Saturation Unsat Iron Binding Transferrin Ferritin 05/14/18 11:57 RBC (Retic) Hgb Hct HCT (Retic) Retic Count, Calc Corrected Retic Count Retic Shift Factor Retic Production Index Immature Retic Fraction Mean Retic Volume VBG pH VBG pCO2 VBG pO2 VBG HCO3 VBG O2 Saturation VBG Base Excess Sodium Potassium Chloride Carbon Dioxide Anion Gap BUN Creatinine Est GFR ( Amer) Est GFR (Non-Af Amer) BUN/Creatinine Ratio Glucose POC Glucose (mg/dL) 88 Calcium Iron TIBC % Saturation Unsat Iron Binding Transferrin Ferritin Nutrition: renal diet Impression: 37W with complicated medical history including ESRD on PD, PAD s/p femoral stents on warfarin, COPD with chronic resp failure and active smoking on 5L O2, IDDM, chronic pain on methadone, unconfirmed CAD, and recent admission at the end of March for PNA, returning with b/l thigh pain found with indurated raised lesions over thighs concerning for calciphylaxis now on sodium thiosulfate IV. With persistent leukocytosis (chronic), supratherapeutic INR. Hospital course complicated by respiratory failure likely from PNA requiring intubation, extubated on 05/05 now being managed in the ICU for mixed acid base derrangements acutely Plan: # Acute respiratory failure due to mixed acid base derangements # Acute mixed acidosis- acute uncompensated primary respiratory acidosis with metabolic acidosis with high anion gap - improved clinically but VBG consistent with acidosis - agree with BIPAP prn and nocturnally - repeat VBG via midline draw in AM - S/P 150 meq bicarb x 1L at 75cc/h 05/13 - started on bicarb orally - minimize opiates # Hypotension improved on midodrine # Hypoglycemia improved s/p D50 amps yesterday Continuous to have poor oral intake # CAD # PVD with multiple LE stents with in-stent stensosis # DVT -started plavix 05/14 -start eliquis 05/14 -caution with bleeding due to recent hx/o GI bleed # Caciphylaxis - on NaThiosulfate 25 gm daily--> will decrease daily as per PD needs - PTH mgmt as below - no warfarin and avoid subcutaneous injections - no vit D, calcium, iron supplementation - wound care # Hyperparathyroidism PTH (intact) 85.8pmol/L/ 809.09pg/mL -goal to bring PTH <300 -check PTH weekly -Started cinacalcet 90 mg BID # ESRD on PD - nephro recs # Leukocytosis persistent with acute increase 17-->24-->28 suspect reactive afebrile hemodynamically stable no overt suggestion of acute PNA on CXR recent completion of course of zosyn -will hold off on abx -culture if febrile # Anemia of chronic disease stable H/H - will discuss with nephro about EPO # Thrombocytosis likely reactive patient on ASA # chronic pain # mood d/o -consult from Dr Lion pending - On methadone 10 mg q12h - will start fentanyl patch 50 mcg/hour - prn dilaudid and continue with gabapenin - on sertraline, will increase to 50 mg daily # GIB thought to be due to recent bleed from nasal orgin Critical Care Time: 45 minutes
[2018-05-14] MEDS: fentaNYL PATCH 50 MCG/HR TRANSDERM SCH (17:42)
[2018-05-14] MEDS: EPOETIN ALFA-EPBX * 4,000 UNIT/ML VIAL SUBCUT SCH (18:13)
[2018-05-14] MEDS: fentaNYL Patch Check Q Shift 1 NOTE SCH (19:01)
[2018-05-14] MEDS: NS 0.9% IV SCH (22:02)
[2018-05-14] MEDS: SODIUM THIOSULFATE IV SCH (22:02)
[2018-05-15] MEDS: Insulin LISPRO* 1 UNITS UNIT SUBCUT SCH ×5 (00:34→22:16)
[2018-05-15] MEDS: PROCHLORPERAZINE INJ 5 MG/ML 2 ML VIAL IV PRN (00:43)
--- NOTE | 2018-05-15 01:37 | PN ---
Progress Note - Progress Note Date of Service: 05/15/18 Note: Patient vomiting frequently throughout the night. Will hold off on BiPAP due to this. Will do neuro checks q2 hours to make sure mentation remains intake.
[2018-05-15] MEDS: HYDROmorphone INJ1* 1 MG/ML SYRINGE IV SLOW PU PRN ×5 (03:03→22:27)
[2018-05-15] MEDS: Methadone TAB* 10 MG PO SCH ×2 (04:46→17:37)
[2018-05-15 05:27] LABS: Calcium 7.7 mg/dL (8.6-10.3); EGFR African American 8.3 (>60); EGFR Non-African American 6.9 (>60); Potassium 3.9 mmol/L (3.5-5.0)
[2018-05-15] MEDS: fentaNYL Patch Check Q Shift 1 NOTE SCH ×2 (06:57→18:58)
[2018-05-15] MEDS: Mometasone/Formoter 200/5 MDI INH SCH ×2 (08:15→19:41)
[2018-05-15] MEDS ORDERED: Sertraline* 50 MG TAB PO SCH (09:00)
[2018-05-15] MEDS: Cinacalcet TAB* 30 MG PO SCH ×2 (09:28→21:38)
[2018-05-15] MEDS: Sevelamer TAB* 800 MG PO SCH ×3 (09:28→21:38)
[2018-05-15] MEDS: CMCS:Midodrine (NF) 5 MG TAB PO SCH ×3 (09:28→21:38)
[2018-05-15] MEDS: Sodium Bicarbonate (ANTACID)* 650 MG TAB PO SCH ×4 (09:28→21:38)
[2018-05-15] MEDS: Lidocaine 2% JELLY* 6 ML JELLY TOPICAL SCH ×3 (09:29→22:16)
[2018-05-15] MEDS: Apixaban* 2.5 MG TAB PO SCH ×2 (09:29→21:38)
[2018-05-15] MEDS: Pantoprazole TAB * 40 MG TAB PO SCH ×2 (09:29→22:19)
[2018-05-15] MEDS: Oxymetazoline 0.05% NASAL SPR* 15 ML BTL BOTH NARES SCH ×3 (09:29→22:15)
[2018-05-15] MEDS: Clopidogrel TAB* 75 MG PO SCH (09:29)
[2018-05-15] MEDS: Mupirocin 2% OINT* TUBE TOPICAL SCH (09:31)
[2018-05-15] MEDS: Ondansetron INJ* 2 MG/ML VIAL IV PRN ×2 (11:50→18:02)
[2018-05-15] MEDS ORDERED: LORazepam INJ* 2 MG/ML 1 ML VIAL IV PUSH PRN (16:12)
--- NOTE | 2018-05-15 16:13 | PN ---
Date of Service: 05/15/18 Critical Care Services: 37W with complicated medical history including ESRD on PD, PAD s/p femoral stents on warfarin, COPD with chronic resp failure and active smoking on 5L O2, IDDM, chronic pain on methadone, unconfirmed CAD, and recent admission at the end of March for PNA, returning with b/l thigh pain found with indurated raised lesions over thighs concerning for calciphylaxis now on sodium thiosulfate IV. With persistent leukocytosis (chronic), supratherapeutic INR. Hospital course complicated by respiratory failure likely from PNA requiring intubation, extubated on 05/05. 05/13: Patient underwent incisional biopsy of left thigh lesion on 05/12/[address] Tommie Salinas pathology consistent with caciphylaxis. Overnight hospitalist was asked to evaluate patient around 2250 due to mental status changes- poorly responsive to verbal stimuli with constricted pupil. Symptoms were attributed to overzealous opiate usage due to acute post surgical pain with concomitant acute acidosis- with acute metabolic and respiratory derangements. She was sent to the ICU for BIPAP need. 05/14: Patient off BIPAP. Complains of ongoing pain and nausea. Episodes of somnolence but easily aroused. 05/15: patient awake and answering questions appropriately. Reports pain but improved controlled compared to previously. Did not use BIPAP last night due to vomiting. Denies fever, chills, further vomiting Vital Signs: Temp Pulse Resp BP SpO2 FiO2 98 F 96 16 99/59 100 40 05/15/18 12:00 05/15/18 14:01 05/15/18 15:49 05/15/18 14:01 05/15/18 14:01 05/15 12:00 Physical Exam: Gen: NAD, laying bed HEENT:NCAT, EOMI, no scleral icterus, neck supple Lungs:air entry bilaterally, no wheezes Cardiac: +S1, S2, RRR Abdomen:SNTND, +bowel sounds Extremities:no edema, + generalized ecchymosis/livedo reticularis Neuro:AAOX 3, non-focal Fluid Balance (Past 24 Hours): I= O= Net Intake & Output 05/13/18 05/14/18 05/15/18 05/16/18 06:59 06:59 06:59 06:59 Intake Total 344 791 690 0 Output Total 60 Balance 344 791 690 -60 Weight 197 lb 5.019 oz 191 lb 3.2 oz Intake: IV Fluids 244 791 200 Sodium bicarb 791 protonix 244 thiosulfate 200 Oral 100 0 490 0 Tube Feeding 0 Tube Feeding Flush Amount 0 Packed Cells 0 NG Tube Irrigate Amount 0 Output: Urine 0 Estimated Blood Loss 60 Other: Date of Last Bowel 05/14/2018 Movement # Bowel Movements 3 0 Estimated Stool Amount Medium ADLs: Meal Record Start: 04/29/18 21: 19 Freq: DAILY@0900,1400,1800 Status: Complete Protocol: Created 04/29/18 21:19 System (Rec: 04/29/18 21:19 System TELE-M15) Document 04/30/18 09:00 FSV1587 (Rec: 04/30/18 13:52 NAR7260 TELE-C10) Document 04/30/18 14:00 XFJ8967 (Rec: 04/30/18 15:02 HRH8551 TELE-C10) Document 04/30/18 18:00 BKD8607 (Rec: 04/30/18 19:27 GNY8218 TELE-C10) Document 05/01/18 09:00 FFO3731 (Rec: 05/01/18 14:44 DGW1530 TELE-C10) Document 05/01/18 14:00 AKS0208 (Rec: 05/01/18 14:44 PGS6631 TELE-C10) Document 05/01/18 18:00 NTW7153 (Rec: 05/01/18 19:43 CFO6523 TELE-C10) ADLs: Meal Record Start: 05/02/18 07: 16 Freq: 09,13,18 Status: Active Protocol: Created 05/02/18 07:16 VKV5915 (Rec: 05/02/18 07:16 WCG9475 ICU-C12) Document 05/02/18 09:00 LLE4882 (Rec: 05/02/18 09:36 TTP2036 ICU-C07) Document 05/02/18 13:00 XSC6012 (Rec: 05/02/18 13:05 HDC0288 ICU-C07) Document 05/02/18 18:00 QWR1181 (Rec: 05/02/18 18:11 WRB7464 ICU-C10) Document 05/06/18 09:00 CCM2369 (Rec: 05/06/18 09:43 DDO0813 ICU-C15) Document 05/06/18 18:00 QCY3194 (Rec: 05/06/18 18:42 CGO3807 TELE-C01) Document 05/07/18 09:00 ELF7170 (Rec: 05/07/18 15:25 IYV9922 TELE-C03) Document 05/07/18 13:00 MAT7865 (Rec: 05/07/18 15:26 LAA4414 TELE-C03) Document 05/07/18 18:00 ONK6827 (Rec: 05/07/18 22:15 QHT6574 TELE-C01) Document 05/08/18 09:00 DXW5341 (Rec: 05/08/18 15:03 FDC0504 TELE-C05) Document 05/08/18 13:00 LLR5149 (Rec: 05/08/18 15:04 PPU4053 TELE-C05) Document 05/08/18 18:00 LXD7583 (Rec: 05/08/18 21:56 SUW4036 TELE-C08) Document 05/09/18 09:00 VZR1439 (Rec: 05/09/18 16:41 FWV7509 TELE-C11) Document 05/09/18 13:00 GKA9003 (Rec: 05/09/18 21:33 IYU5828 TELE-C06) Document 05/09/18 18:00 BUL1152 (Rec: 05/09/18 21:34 ILR0059 TELE-C01) Document 05/10/18 09:00 RGF4885 (Rec: 05/10/18 10:37 PDI8505 TELE-C13) Document 05/10/18 13:00 BLF7051 (Rec: 05/10/18 14:35 XQE5626 TELE-C13) Document 05/10/18 18:00 XQB0018 (Rec: 05/10/18 22:27 TUG4027 TELE-C09) Document 05/11/18 09:00 MTM5652 (Rec: 05/11/18 09:26 EDG7979 ICU-C16) Document 05/11/18 14:52 KCG1247 (Rec: 05/11/18 14:52 LSY1762 ICU-C16) Document 05/11/18 18:00 LWF3237 (Rec: 05/11/18 22:29 GAB8216 ICU-C25) Document 05/12/18 09:00 ZOE5480 (Rec: 05/12/18 10:34 TJP8682 ICU-M33) Document 05/12/18 14:42 VHX6062 (Rec: 05/12/18 14:42 EMA4601 ICU-M33) Document 05/13/18 21:39 MTN0490 (Rec: 05/13/18 21:39 RNR0682 ICU-M34) Document 05/14/18 09:00 HZZ4366 (Rec: 05/14/18 10:28 MBQ3843 ICU-C07) Document 05/14/18 18:00 IAD9315 (Rec: 05/14/18 18:30 PKW3751 ICU-C07) Document 05/15/18 09:00 WQG4062 (Rec: 05/15/18 14:30 MLF6224 ICU-C07) ADLs: Meal Record Start: 05/12/18 15: 52 Freq: Status: Complete Protocol: Created 05/12/18 15:52 OCM2515 (Rec: 05/12/18 15:52 XJG0019 TELE-C08) Intake and Output Start: 04/29/18 18: 19 Freq: Status: Complete Protocol: Created 04/29/18 18:19 System (Rec: 04/29/18 18:19 System EDRM-C04) Intake and Output Start: 04/29/18 21: 19 Freq: DAILY@0600,1400,2200 Status: Complete Protocol: Created 04/29/18 21:19 System (Rec: 04/29/18 21:19 System TELE-M15) Document 04/30/18 06:00 GGN6081 (Rec: 04/30/18 06:47 ZAO4896 TELE-C03) Document 04/30/18 14:00 KEL2569 (Rec: 04/30/18 15:02 UMV1577 TELE-C10) Document 04/30/18 22:00 XRL0074 (Rec: 04/30/18 22:07 BWI1234 TELE-C10) Document 05/01/18 05:58 DLW2496 (Rec: 05/01/18 05:59 FGX4133 HOSP-C11) Document 05/01/18 14:00 WGY6978 (Rec: 05/01/18 14:46 CSN4037 TELE-C10) Document 05/01/18 22:00 OHI9251 (Rec: 05/01/18 22:28 VJY9244 TELE-C09) Intake and Output Start: 05/02/18 07: 16 Freq: QSHIFT Status: Active Protocol: Created 05/02/18 07:16 SWH8293 (Rec: 05/02/18 07:16 NKK2890 ICU-C12) Document 05/02/18 08:00 MBT8654 (Rec: 05/02/18 08:21 WMK2022 ICU-M35) Document 05/02/18 11:44 PBN5270 (Rec: 05/02/18 11:44 LHJ8542 ICU-C07) Document 05/02/18 16:00 DYW6608 (Rec: 05/02/18 18:06 TLT9505 ICU-C10) Document 05/03/18 00:00 TPR4419 (Rec: 05/03/18 00:48 LYC8321 ISDEMO-M03 ) Document 05/03/18 06:07 VZA1356 (Rec: 05/03/18 06:07 RGT0526 ISDEMO-M03 ) Document 05/03/18 08:00 EJJ9834 (Rec: 05/03/18 12:31 GVT4028 ICU-C16) Document 05/03/18 12:00 BYO6212 (Rec: 05/03/18 17:36 MMR9510 ICU-C16) Co-Sign 05/03/18 12:00 IID0514 Document 05/03/18 16:00 JVE1632 (Rec: 05/03/18 18:03 XXQ0750 ICU-C16) Document 05/03/18 21:15 SQC9748 (Rec: 05/04/18 03:56 LUX9240 ICU-L03) Document 05/04/18 03:30 MBO6183 (Rec: 05/04/18 03:56 TQS3511 ICU-L03) Document 05/04/18 08:00 TWH6556 (Rec: 05/04/18 11:39 CCN5759 ICU-C16) Document 05/05/18 00:58 MGO0755 (Rec: 05/05/18 00:58 UEI2793 ISDEMO-M03 ) Document 05/05/18 08:00 SEQ3000 (Rec: 05/05/18 12:22 ZMK9144 ICU-C16) Document 05/05/18 20:00 VZM8199 (Rec: 05/05/18 20:12 PFB3255 ICU-C15) Document 05/06/18 08:00 WVB7842 (Rec: 05/06/18 09:42 NRI0138 ICU-C15) Document 05/06/18 10:58 ONI4917 (Rec: 05/06/18 10:58 VIO1022 ICU-C15) Document 05/06/18 20:00 TFN1058 (Rec: 05/06/18 22:42 NQU3691 TELE-C01) Document 05/07/18 08:00 XSB8856 (Rec: 05/07/18 10:57 HYY9172 TELE-C03) Document 05/07/18 20:00 JDQ7822 (Rec: 05/07/18 22:16 BVE5908 TELE-C01) Document 05/08/18 08:00 BIQ2310 (Rec: 05/08/18 15:02 IQL2987 TELE-C05) Document 05/08/18 22:00 BPL8639 (Rec: 05/08/18 22:40 EUI2409 TELE-C08) Document 05/09/18 08:00 LOP0259 (Rec: 05/09/18 09:55 AST7259 TELE-M02) Document 05/09/18 20:00 QEF1465 (Rec: 05/09/18 22:54 GIJ1511 TELE-C01) Document 05/10/18 08:00 BJF7355 (Rec: 05/10/18 10:31 PZS0739 TELE-C13) Document 05/10/18 20:00 QQC3798 (Rec: 05/10/18 22:27 MYG3226 TELE-C09) Document 05/11/18 05:36 ISC9603 (Rec: 05/11/18 05:37 JNC8859 ICU-C25) Document 05/11/18 20:00 VMJ5162 (Rec: 05/12/18 02:00 NPW2356 ICU-C25) Document 05/12/18 08:00 TKI9605 (Rec: 05/12/18 11:01 LMD5257 ICU-L03) Document 05/13/18 20:00 OSO4197 (Rec: 05/13/18 21:32 WNG5566 ICU-C06) Document 05/14/18 08:00 ROM8772 (Rec: 05/14/18 10:28 QBG6050 ICU-C07) Document 05/14/18 21:00 QDZ9425 (Rec: 05/14/18 23:38 BIO0541 ICU-C06) Document 05/15/18 07:55 XVB3713 (Rec: 05/15/18 08:01 YKG3619 ICU-C07) Labs: Laboratory Results - last 24 hr 05/14/18 05/15/18 05/15/18 17:13 00:40 04:55 VBG pH VBG pCO2 VBG pO2 VBG HCO3 VBG O2 Saturation VBG Base Excess Sodium 143 Potassium 3.9 Chloride 87 L Carbon Dioxide 20 L Anion Gap 36 H BUN 40 H Creatinine 6.72 H Est GFR ( Amer) 8.3 Est GFR (Non-Af Amer) 6.9 BUN/Creatinine Ratio 6.0 L Glucose 313 H POC Glucose (mg/dL) 203 H 221 H Calcium 7.7 L 05/15/18 05/15/18 04:55 12:54 VBG pH 7.18 L VBG pCO2 56 H VBG pO2 41.0 VBG HCO3 17.6 L VBG O2 Saturation 57.2 L VBG Base Excess -8.0 L Sodium Potassium Chloride Carbon Dioxide Anion Gap BUN Creatinine Est GFR ( Amer) Est GFR (Non-Af Amer) BUN/Creatinine Ratio Glucose POC Glucose (mg/dL) 137 H Calcium Nutrition: renal diet Impression: 37W with complicated medical history including ESRD on PD, PAD s/p femoral stents on warfarin, COPD with chronic resp failure and active smoking on 5L O2, IDDM, chronic pain on methadone, unconfirmed CAD, and recent admission at the end of March for PNA, returning with b/l thigh pain found with indurated raised lesions over thighs concerning for calciphylaxis now on sodium thiosulfate IV. With persistent leukocytosis (chronic), supratherapeutic INR. Hospital course complicated by respiratory failure likely from PNA requiring intubation, extubated on 05/05 now being managed in the ICU for mixed acid base derrangements acutely Plan: # Acute respiratory failure due to mixed acid base derangements # Acute mixed acidosis- acute uncompensated primary respiratory acidosis with metabolic acidosis with high anion gap - improved clinically but VBG consistent with acidosis - agree with BIPAP prn and nocturnally - repeat VBG via midline draw in AM - S/P 150 meq bicarb x 1L at 75cc/h 05/13 - will continue with oral bicarb 2600 mg QID + NaHCO3 150MEQ 75 cc x 2 L 05/15 # Hypotension improved on midodrine -->increase to 10 mg QID # Hypoglycemia improved # CAD # PVD with multiple LE stents with in-stent stensosis # DVT -started plavix 05/14 -startED eliquis 05/14 -caution with bleeding due to recent hx/o GI bleed # Caciphylaxis - on NaThiosulfate 25 gm MWFSu as per PD needs - PTH mgmt as below - no warfarin and avoid subcutaneous injections - no vit D, calcium, iron supplementation - wound care # Hyperparathyroidism PTH (intact) 85.8pmol/L/ 809.09pg/mL -goal to bring PTH <300 -check PTH weekly - due on saturday -Cinacalcet 90 mg BID # ESRD on PD - nephro recs # Leukocytosis persistent with acute increase 17-->24-->28 suspect reactive afebrile hemodynamically stable no overt suggestion of acute PNA on CXR recent completion of course of zosyn -will hold off on abx -culture if febrile # Anemia of chronic disease stable H/H - will discuss with nephro about EPO # Thrombocytosis likely reactive patient on ASA # chronic pain # mood d/o -consult from Dr Lion pending - On methadone 10 mg q12h - will start fentanyl patch 50 mcg/hour - prn dilaudid and continue with gabapenin - on sertraline, will increase to 50 mg daily # Nausea likely associated with thiosulfate infusion - Marinol on days of Thiosulfate infusion - Garcia, M, W, F - prn zofran and ativan # GIB thought to be due to recent bleed from nasal orgin Critical Care Time: 45 minutes
[2018-05-15] MEDS: Sodium Bicarbonate 8.4% IV* 150 MEQ in D5W 1000 ML BAG* 1,000 ML IVPB SCH (17:37)
[2018-05-16] MEDS: Ondansetron INJ* 2 MG/ML VIAL IV PRN ×3 (01:11→22:34)
[2018-05-16] MEDS: HYDROmorphone INJ1* 1 MG/ML SYRINGE IV SLOW PU PRN ×5 (01:47→21:16)
[2018-05-16] MEDS: Methadone TAB* 10 MG PO SCH ×2 (04:51→17:52)
[2018-05-16] MEDS: PROCHLORPERAZINE INJ 5 MG/ML 2 ML VIAL IV PRN (05:07)
[2018-05-16 05:17] LABS: ABS Basophils 0.1 10^3/ul (0-0.2); ABS Eosinophils 0 10^3/ul (0-0.6); ABS Lymphocytes 1.1 10^3/ul (1.0-4.8); ABS Nucleated RBC 0 10^3/ul; Eosinophil % 0.2 %; Hematocrit 21 % (33-41); Hemoglobin 6.7 g/dL (12.0-16.0); Lymphocyte % 5.6 %; Mean Corpuscular HGB Conc 32 g/dL (31-36); Mean Corpuscular Hemoglobin 28 pg (27-31); Mean Corpuscular Volume 85 fL (80-97); Nucleated Red Blood Cells % 0.2; Platelet Count 544 10^3/uL (150-450); Red Blood Count 2.43 10^6 /uL (3.70-4.87); Red Cell Distribution Width 17 % (10.5-15); White Blood Count 20.2 10^3/uL (3.5-10.8)
[2018-05-16 05:35] LABS: BUN/Creatinine Ratio 5.9 (8-20); Calcium 6.9 mg/dL (8.6-10.3); EGFR Non-African American 7.5 (>60); Magnesium 1.8 mg/dL (1.9-2.7); Phosphorus 5.8 mg/dL (2.5-5.0); Potassium 3.6 mmol/L (3.5-5.0)
[2018-05-16] MEDS: Sodium Bicarbonate 8.4% IV* 150 MEQ in D5W 1000 ML BAG* 1,000 ML IVPB SCH (07:55)
[2018-05-16] MEDS: Insulin LISPRO* 1 UNITS UNIT SUBCUT SCH ×4 (08:27→22:04)
[2018-05-16] MEDS: Lidocaine 2% JELLY* 6 ML JELLY TOPICAL SCH ×3 (08:27→22:12)
[2018-05-16] MEDS: Mometasone/Formoter 200/5 MDI INH SCH ×2 (08:36→20:00)
[2018-05-16] MEDS ORDERED: Dronabinol CAP* 2.5 MG PO SCH ×2 (09:00→21:00)
[2018-05-16] MEDS: CMCS:Midodrine (NF) 5 MG TAB PO SCH ×4 (09:15→22:13)
[2018-05-16] MEDS: Apixaban* 2.5 MG TAB PO SCH (09:15)
[2018-05-16] MEDS: Pantoprazole TAB * 40 MG TAB PO SCH (09:15)
[2018-05-16] MEDS: Clopidogrel TAB* 75 MG PO SCH (09:15)
[2018-05-16] MEDS: Cinacalcet TAB* 30 MG PO SCH ×2 (09:15→22:06)
[2018-05-16] MEDS: DULoxetine DR CAP* 30 MG CAP.DR PO SCH (09:15)
[2018-05-16] MEDS: Sevelamer TAB* 800 MG PO SCH ×3 (09:15→22:06)
[2018-05-16] MEDS: Mupirocin 2% OINT* TUBE TOPICAL SCH (09:16)
[2018-05-16] MEDS: Sodium Bicarbonate (ANTACID)* 650 MG TAB PO SCH ×4 (09:16→22:13)
[2018-05-16] MEDS: Oxymetazoline 0.05% NASAL SPR* 15 ML BTL BOTH NARES SCH ×2 (09:16→22:11)
--- NOTE | 2018-05-16 11:02 | PN ---
Date of Service: 05/16/18 - TRANSFER SUMMARY Critical Care Services: 37W with complicated medical history including ESRD on PD, PAD s/p femoral stents on warfarin, COPD with chronic resp failure and active smoking on 5L O2, IDDM, chronic pain on methadone, unconfirmed CAD, and recent admission at the end of March for PNA, returning with b/l thigh pain found with indurated raised lesions over thighs concerning for calciphylaxis now on sodium thiosulfate IV. With persistent leukocytosis (chronic), supratherapeutic INR. Hospital course complicated by respiratory failure likely from PNA requiring intubation, extubated on 05/05. 05/13: Patient underwent incisional biopsy of left thigh lesion on 05/12/[address] Tommie Salinas pathology consistent with caciphylaxis. Overnight hospitalist was asked to evaluate patient around 2250 due to mental status changes- poorly responsive to verbal stimuli with constricted pupil. Symptoms were attributed to overzealous opiate usage due to acute post surgical pain with concomitant acute acidosis- with acute metabolic and respiratory derangements. She was sent to the ICU for BIPAP need. 05/14: Patient off BIPAP. Complains of ongoing pain and nausea. Episodes of somnolence but easily aroused. 05/15: patient awake and answering questions appropriately. Reports pain but improved controlled compared to previously. Did not use BIPAP due to vomiting. 05/16: Patient had another run of nausea/vomiting in the night. She refused to use the BIPAP as a result. Her pain appears to be fairly controlled on the current regimen. + BM, no fever. On PD. Vital Signs: Temp Pulse Resp BP SpO2 FiO2 97 F 90 16 110/85 99 40 05/16/18 08:00 05/16/18 10:01 05/16/18 10:01 05/16/18 10:00 05/16/18 10:01 05/16 08:00 Physical Exam: Gen: NAD, laying bed HEENT:NCAT, EOMI, no scleral icterus, neck supple Lungs:air entry bilaterally, no wheezes Cardiac: +S1, S2, RRR Abdomen:SNTND, +bowel sounds Extremities:no edema, + generalized ecchymosis/livedo reticularis Neuro:AAOX 3, non-focal Fluid Balance (Past 24 Hours): I= O= Net Intake & Output 05/14/18 05/15/18 05/16/18 05/17/18 06:59 06:59 06:59 06:59 Intake Total 415 918 1010 120 Output Total 60 Balance 601 795 5192 120 Weight 197 lb 5.019 oz 191 lb 3.2 oz 187 lb 2.759 oz Intake: IV Fluids 791 200 934 Sodium bicarb 791 934 thiosulfate 200 Oral 0 490 220 120 Tube Feeding 0 Tube Feeding Flush Amount 0 Packed Cells 0 NG Tube Irrigate Amount 0 Output: Urine 0 Estimated Blood Loss 60 Other: Date of Last Bowel 05/14/2018 t Movement # Bowel Movements 3 0 Estimated Stool Amount Medium Medium ADLs: Meal Record Start: 04/29/18 21: 19 Freq: DAILY@0900,1400,1800 Status: Complete Protocol: Created 04/29/18 21:19 System (Rec: 04/29/18 21:19 System TELE-M15) Document 04/30/18 09:00 LLV1987 (Rec: 04/30/18 13:52 [id number] TELE-C10) Document 04/30/18 14:00 JTJ9162 (Rec: 04/30/18 15:02 HPB2728 TELE-C10) Document 04/30/18 18:00 TIT6464 (Rec: 04/30/18 19:27 HGD3213 TELE-C10) Document 05/01/18 09:00 ENE1697 (Rec: 05/01/18 14:44 LAH7648 TELE-C10) Document 05/01/18 14:00 IWG4247 (Rec: 05/01/18 14:44 BMV7769 TELE-C10) Document 05/01/18 18:00 YYE1227 (Rec: 05/01/18 19:43 HUD2119 TELE-C10) ADLs: Meal Record Start: 05/02/18 07: 16 Freq: 09,13,18 Status: Active Protocol: Created 05/02/18 07:16 VMJ1423 (Rec: 05/02/18 07:16 ARU8349 ICU-C12) Document 05/02/18 09:00 GLY5259 (Rec: 05/02/18 09:36 ZFD0402 ICU-C07) Document 05/02/18 13:00 IDF8882 (Rec: 05/02/18 13:05 LXT4616 ICU-C07) Document 05/02/18 18:00 JWV5732 (Rec: 05/02/18 18:11 EEX9879 ICU-C10) Document 05/06/18 09:00 FVP5019 (Rec: 05/06/18 09:43 NIN7430 ICU-C15) Document 05/06/18 18:00 OAK5501 (Rec: 05/06/18 18:42 XYP6917 TELE-C01) Document 05/07/18 09:00 EMU4587 (Rec: 05/07/18 15:25 DOX9508 TELE-C03) Document 05/07/18 13:00 ABL2884 (Rec: 05/07/18 15:26 AAW1795 TELE-C03) Document 05/07/18 18:00 OWO5344 (Rec: 05/07/18 22:15 UMP9912 TELE-C01) Document 05/08/18 09:00 OYE3522 (Rec: 05/08/18 15:03 CFG6077 TELE-C05) Document 05/08/18 13:00 CMI7000 (Rec: 05/08/18 15:04 ELR0823 TELE-C05) Document 05/08/18 18:00 GKX2343 (Rec: 05/08/18 21:56 EUB2766 TELE-C08) Document 05/09/18 09:00 JDK0412 (Rec: 05/09/18 16:41 ATG8851 TELE-C11) Document 05/09/18 13:00 ORF9269 (Rec: 05/09/18 21:33 JGH3686 TELE-C06) Document 05/09/18 18:00 OIS2883 (Rec: 05/09/18 21:34 HST2124 TELE-C01) Document 05/10/18 09:00 XFZ7483 (Rec: 05/10/18 10:37 YRR3122 TELE-C13) Document 05/10/18 13:00 RJD6330 (Rec: 05/10/18 14:35 OXF0769 TELE-C13) Document 05/10/18 18:00 IEU5604 (Rec: 05/10/18 22:27 BYC4649 TELE-C09) Document 05/11/18 09:00 TVE0787 (Rec: 05/11/18 09:26 KMC6100 ICU-C16) Document 05/11/18 14:52 BPO3202 (Rec: 05/11/18 14:52 CZX0935 ICU-C16) Document 05/11/18 18:00 DMA5968 (Rec: 05/11/18 22:29 ZJA5460 ICU-C25) Document 05/12/18 09:00 XOK0435 (Rec: 05/12/18 10:34 OBW0307 ICU-M33) Document 05/12/18 14:42 DNX5984 (Rec: 05/12/18 14:42 LVK7806 ICU-M33) Document 05/13/18 21:39 VLP5324 (Rec: 05/13/18 21:39 XVD4836 ICU-M34) Document 05/14/18 09:00 DNG9871 (Rec: 05/14/18 10:28 BDN2557 ICU-C07) Document 05/14/18 18:00 ORR1567 (Rec: 05/14/18 18:30 KLM1724 ICU-C07) Document 05/15/18 09:00 MEF2462 (Rec: 05/15/18 14:30 YGB7152 ICU-C07) Document 05/15/18 18:00 CZP0680 (Rec: 05/15/18 18:22 SIP4727 ICU-C07) Document 05/16/18 09:00 WJS5615 (Rec: 05/16/18 10:57 JHR3307 ICU-C07) ADLs: Meal Record Start: 05/12/18 15: 52 Freq: Status: Complete Protocol: Created 05/12/18 15:52 BKV3101 (Rec: 05/12/18 15:52 TVH3891 TELE-C08) Intake and Output Start: 04/29/18 18: 19 Freq: Status: Complete Protocol: Created 04/29/18 18:19 System (Rec: 04/29/18 18:19 System EDRM-C04) Intake and Output Start: 04/29/18 21: 19 Freq: DAILY@0600,1400,2200 Status: Complete Protocol: Created 04/29/18 21:19 System (Rec: 04/29/18 21:19 System TELE-M15) Document 04/30/18 06:00 DAQ7740 (Rec: 04/30/18 06:47 RLH1757 TELE-C03) Document 04/30/18 14:00 STG5320 (Rec: 04/30/18 15:02 HAG6797 TELE-C10) Document 04/30/18 22:00 QXX0240 (Rec: 04/30/18 22:07 WDA1351 TELE-C10) Document 05/01/18 05:58 ULS5871 (Rec: 05/01/18 05:59 KYP3206 HOSP-C11) Document 05/01/18 14:00 XXV7919 (Rec: 05/01/18 14:46 LJE8703 TELE-C10) Document 05/01/18 22:00 ECG0511 (Rec: 05/01/18 22:28 RYT5126 TELE-C09) Intake and Output Start: 05/02/18 07: 16 Freq: QSHIFT Status: Active Protocol: Created 05/02/18 07:16 VTD6536 (Rec: 05/02/18 07:16 RBB5527 ICU-C12) Document 05/02/18 08:00 ZXK4740 (Rec: 05/02/18 08:21 FAO3047 ICU-M35) Document 05/02/18 11:44 BBN4837 (Rec: 05/02/18 11:44 DGM7945 ICU-C07) Document 05/02/18 16:00 EDZ3250 (Rec: 05/02/18 18:06 VUS1598 ICU-C10) Document 05/03/18 00:00 PBX0622 (Rec: 05/03/18 00:48 CNN5794 ISDEMO-M03 ) Document 05/03/18 06:07 JOU3584 (Rec: 05/03/18 06:07 TPU3213 ISDEMO-M03 ) Document 05/03/18 08:00 ISC9719 (Rec: 05/03/18 12:31 ZOX6127 ICU-C16) Document 05/03/18 12:00 ZSL6060 (Rec: 05/03/18 17:36 HWK4174 ICU-C16) Co-Sign 05/03/18 12:00 OOQ7954 Document 05/03/18 16:00 SDL4953 (Rec: 05/03/18 18:03 AYJ3600 ICU-C16) Document 05/03/18 21:15 ICM6075 (Rec: 05/04/18 03:56 KAH9685 ICU-L03) Document 05/04/18 03:30 EXE5099 (Rec: 05/04/18 03:56 YGR6439 ICU-L03) Document 05/04/18 08:00 HWM8644 (Rec: 05/04/18 11:39 FUO1049 ICU-C16) Document 05/05/18 00:58 QQC5832 (Rec: 05/05/18 00:58 ELW1358 ISDEMO-M03 ) Document 05/05/18 08:00 LXG4810 (Rec: 05/05/18 12:22 HYV9971 ICU-C16) Document 05/05/18 20:00 UCH7566 (Rec: 05/05/18 20:12 VZY5716 ICU-C15) Document 05/06/18 08:00 DMV4748 (Rec: 05/06/18 09:42 BJS8763 ICU-C15) Document 05/06/18 10:58 JJY3145 (Rec: 05/06/18 10:58 LDH2486 ICU-C15) Document 05/06/18 20:00 NCY9835 (Rec: 05/06/18 22:42 PID3913 TELE-C01) Document 05/07/18 08:00 FHA3857 (Rec: 05/07/18 10:57 GJK7995 TELE-C03) Document 05/07/18 20:00 LIA9401 (Rec: 05/07/18 22:16 YZJ8692 TELE-C01) Document 05/08/18 08:00 VBI4161 (Rec: 05/08/18 15:02 EDM6857 TELE-C05) Document 05/08/18 22:00 FZQ5918 (Rec: 05/08/18 22:40 MQQ6054 TELE-C08) Document 05/09/18 08:00 RHZ7363 (Rec: 05/09/18 09:55 JUP3502 TELE-M02) Document 05/09/18 20:00 YPJ9033 (Rec: 05/09/18 22:54 JRQ9915 TELE-C01) Document 05/10/18 08:00 CFX0697 (Rec: 05/10/18 10:31 MGJ3843 TELE-C13) Document 05/10/18 20:00 UMA1264 (Rec: 05/10/18 22:27 GGT7195 TELE-C09) Document 05/11/18 05:36 WCW6183 (Rec: 05/11/18 05:37 ADT3616 ICU-C25) Document 05/11/18 20:00 THN5688 (Rec: 05/12/18 02:00 USO1621 ICU-C25) Document 05/12/18 08:00 JZX1460 (Rec: 05/12/18 11:01 QTL2274 ICU-L03) Document 05/13/18 20:00 VMV0272 (Rec: 05/13/18 21:32 MWH2659 ICU-C06) Document 05/14/18 08:00 VEN4521 (Rec: 05/14/18 10:28 CNK1807 ICU-C07) Document 05/14/18 21:00 JZS6062 (Rec: 05/14/18 23:38 NDE1075 ICU-C06) Document 05/15/18 07:55 MMH8816 (Rec: 05/15/18 08:01 JVK3499 ICU-C07) Document 05/15/18 21:30 SFJ0139 (Rec: 05/15/18 23:01 WXI5145 ICU-C07) Document 05/16/18 05:45 SNB3696 (Rec: 05/16/18 05:45 AIK7125 ICU-C07) Document 05/16/18 08:00 EZL7973 (Rec: 05/16/18 08:01 YKB4465 ICU-C20) Labs: Laboratory Results - last 24 hr 05/15/18 05/16/18 05/16/18 12:54 05:03 05:03 WBC 20.2 H RBC 2.43 L Hgb 6.7 L Hct 21 L MCV 85 MCH 28 MCHC 32 RDW 17 H Plt Count 544 H MPV 8.0 Neut % (Auto) 89.0 Lymph % (Auto) 5.6 [place] % (Auto) 4.9 Eos % (Auto) 0.2 Baso % (Auto) 0.3 Absolute Neuts (auto) 18.0 H Absolute Lymphs (auto) 1.1 Absolute Monos (auto) 1.0 H Absolute Eos (auto) 0 Absolute Basos (auto) 0.1 Absolute Nucleated RBC 0 Nucleated RBC % 0.2 VBG pH VBG pCO2 VBG pO2 VBG HCO3 VBG O2 Saturation VBG Base Excess Sodium 143 Potassium 3.6 Chloride 86 L Carbon Dioxide 24 Anion Gap 33 H BUN 37 H Creatinine 6.26 H Est GFR ( Amer) 9.0 Est GFR (Non-Af Amer) 7.5 BUN/Creatinine Ratio 5.9 L Glucose 272 H POC Glucose (mg/dL) 137 H Calcium 6.9 L Phosphorus 5.8 H Magnesium 1.8 L 05/16/18 05:03 WBC RBC Hgb Hct MCV MCH MCHC RDW Plt Count MPV Neut % (Auto) Lymph % (Auto) [place] % (Auto) Eos % (Auto) Baso % (Auto) Absolute Neuts (auto) Absolute Lymphs (auto) Absolute Monos (auto) Absolute Eos (auto) Absolute Basos (auto) Absolute Nucleated RBC Nucleated RBC % VBG pH 7.22 L VBG pCO2 68 H VBG pO2 39.0 VBG HCO3 22.6 L VBG O2 Saturation 54.6 L VBG Base Excess -1.5 L Sodium Potassium Chloride Carbon Dioxide Anion Gap BUN Creatinine Est GFR ( Amer) Est GFR (Non-Af Amer) BUN/Creatinine Ratio Glucose POC Glucose (mg/dL) Calcium Phosphorus Magnesium Nutrition: renal diet Impression: 37W with complicated medical history including ESRD on PD, PAD s/p femoral stents on warfarin, COPD with chronic resp failure and active smoking on 5L O2, IDDM, chronic pain on methadone, unconfirmed CAD, and recent admission at the end of March for PNA, returning with b/l thigh pain found with indurated raised lesions over thighs concerning for calciphylaxis now on sodium thiosulfate IV. With persistent leukocytosis (chronic), supratherapeutic INR. Hospital course complicated by respiratory failure likely from PNA requiring intubation, extubated on 05/05 now being managed in the ICU for mixed acid base derrangements acutely Plan: # Acute respiratory failure due to mixed acid base derangements # Acute mixed acidosis- acute uncompensated primary respiratory acidosis with metabolic acidosis with high anion gap - improved clinically but VBG consistent with acidosis - agree with BIPAP prn and nocturnally - repeat VBG via midline draw in AM - S/P 150 meq bicarb x 1L at 75cc/h 05/13 - improving HCO3 and base deficit with supplemental NaHCO3 - will continue with oral bicarb 2600 mg QID - Discontinue IV bicarb today # Hypotension improved with increase in midodrine 10 mg QID # Hypoglycemia improved # CAD # PVD with multiple LE stents with in-stent stensosis # DVT -started plavix 05/14 -started eliquis 05/14 -caution with bleeding due to recent hx/o GI bleed # Caciphylaxis - on NaThiosulfate 25 gm MWFSu as per PD needs - PTH mgmt as below - no warfarin and avoid subcutaneous injections - no vit D, calcium, iron supplementation - wound care # Hyperparathyroidism PTH (intact) 85.8pmol/L/ 809.09pg/mL -goal to bring PTH <300 -check PTH weekly - due on saturday -Cinacalcet 90 mg BID # ESRD on PD - nephro recs # Leukocytosis improved -->24-->28-->20 suspect reactive afebrile hemodynamically stable no overt suggestion of acute PNA on CXR recent completion of course of zosyn -will hold off on abx -culture if febrile # Anemia of chronic disease # Anemia with acute drop in hemoglobin stable H/H - started EPO three times weekly - 1 unit PRBc 05/16 # Thrombocytosis likely reactive patient on ASA # chronic pain # mood d/o -consult from Dr Lion pending - On methadone 10 mg q12h - Started on fentanyl patch 50 mcg/hour - prn dilaudid and continue with gabapenin - Sertraline discontinued and started on Cymbalta # Nausea likely associated with thiosulfate infusion vs gastroparesis - Marinol 5 mg TID - prn zofran and ativan # GIB thought to be due to recent bleed from nasal orgin Critical Care Time: 45 minutes
[2018-05-16] MEDS: fentaNYL Patch Check Q Shift 1 NOTE SCH ×2 (12:20→19:00)
[2018-05-16] MEDS: Dronabinol CAP* 2.5 MG PO SCH ×2 (14:03→22:07)
[2018-05-16] MEDS: EPOETIN ALFA-EPBX * 4,000 UNIT/ML VIAL SUBCUT SCH (18:50)
--- NOTE | 2018-05-16 19:33 | PN ---
Hospitalist Progress Note Date of Service: 05/16/18 Patient examined due to large volume maroon stool in patient's depends and commode. Patient denies abdominal pain, N/V. Patient is menstruating. Patient was recently started on Eliquis and Plavix. Patient had no hemorrhoids, witnessed a large volume of loose maroon stool. Patient's eliquis and plavix was stopped. Patient was transferred to ICU, 2 IVs were ordered, 2u were put on hold, Protonix drip was started. Q6H H/H ordered, this case was discussed with subway conductor. This case was discussed with Dr. Elvis Hartman of GI who will see the patient in consult and recommended conservative treatment if possible due to patient being a very poor endoscopy candidate.
[2018-05-16 19:35] LABS: ABS Basophils 0.1 10^3/ul (0-0.2); ABS Eosinophils 0.1 10^3/ul (0-0.6); ABS Lymphocytes 1.2 10^3/ul (1.0-4.8); ABS Monocytes 0.9 10^3/ul (0-0.8); ABS Neutrophils 16.1 10^3/ul (1.5-7.7); ABS Nucleated RBC 0.1 10^3/ul; Eosinophil % 0.5 %; Hematocrit 20 % (33-41); Hemoglobin 6.3 g/dL (12.0-16.0); Lymphocyte % 6.7 %; Mean Corpuscular HGB Conc 32 g/dL (31-36); Mean Corpuscular Hemoglobin 27 pg (27-31); Mean Corpuscular Volume 83 fL (80-97); Mean Platelet Volume 8.1 fL (7.4-10.4); Nucleated Red Blood Cells % 0.4; Platelet Count 454 10^3/uL (150-450); Red Blood Count 2.39 10^6 /uL (3.70-4.87); Red Cell Distribution Width 18 % (10.5-15); White Blood Count 18.4 10^3/uL (3.5-10.8)
--- NOTE | 2018-05-16 20:48 | PN ---
Progress Note - Progress Note Date of Service: 05/16/18 Note: Patient was on Eliquis, H/H: 6.3, Two units of blood ordered and will also order KCentra. Continue PPI drip.
[2018-05-16] MEDS: SODIUM THIOSULFATE IV SCH (22:04)
[2018-05-16] MEDS: NS 0.9% IV SCH (22:04)
--- NOTE | 2018-05-16 22:50 | PN ---
AMENDED REPORT NOW INCLUDES DATE OF SERVICE - ESIGNED BEFORE ADJUSTMENT PROGRESS NOTE: DATE OF SERVICE: 05/16/18 HISTORY: I was asked to go over yesterday to speak with Ms. Wright about her diagnosis of calciphylaxis. She had been having some significant pain to her legs. There had been noticed somewhat skin discoloration, a biopsy was produced , which demonstrated calciphylaxis. She had had sodium thiosulfate initiated to help with this condition. She noticed an increase in her discomfort, which is not atypical with use of sodium thiosulfate in the early course therapy. In addition, she has developed some hypotension, which is also not uncommon. I discussed with her the etiology of this, which was related to a long-term problem with phosphate management. I also discussed with her the fact that this was a separate vascular disease from the atherosclerotic disease that she has also been demonstrated to have. We reviewed her alternatives, which included cessation of dialysis and converting to hemodialysis while continuing on sodium thiosulfate. She rejected this as she had previously had an episode of cardiac arrest while on hemodialysis and had been intolerant of hemodialysis a couple of times when we tried it in the past. Lastly, transferal to a dialysis unit associated with a senior living that would allow peritoneal dialysis. I understand that one is available in [place]. She could then continue on sodium thiosulfate treatment as well as receiving wound care for her skin wounds, which are likely to breakdown. She elected that course if she understands the potential for significant complications including pain and skin wound infection. Dr. Calvillo was in attendance during most of this discussion, which took approximately 40 minutes. [id number]/[facility] #: [id number] VIRI
[2018-05-16 23:23] LABS: INR 1.4 (0.77-1.02)
[2018-05-16] MEDS: Pantoprazole* 80 mg IN NS 80 MG/250 ML BAG IVPB SCH (23:27)
[2018-05-17 02:26] LABS: Hematocrit 22 % (33-41); Hemoglobin 7.1 g/dL (12.0-16.0)
[2018-05-17] MEDS: HYDROmorphone INJ1* 1 MG/ML SYRINGE IV SLOW PU PRN ×5 (03:56→21:38)
[2018-05-17] MEDS: Albuterol/Ipratropium NEB.SOL* Albuterol 2.5 MG/Ipratropium 0.5 MG 3 ML INH PRN ×2 (04:13→16:24)
[2018-05-17] MEDS: Ondansetron INJ* 2 MG/ML VIAL IV PRN ×3 (04:30→17:09)
[2018-05-17] MEDS: Methadone TAB* 10 MG PO SCH ×2 (05:55→17:09)
[2018-05-17] MEDS: PROCHLORPERAZINE INJ 5 MG/ML 2 ML VIAL IV PRN ×3 (05:55→18:04)
[2018-05-17 06:09] LABS: Hematocrit 24 % (33-41)
[2018-05-17 06:21] LABS: ABS Basophils 0.1 10^3/ul (0-0.2); ABS Eosinophils 0.1 10^3/ul (0-0.6); ABS Lymphocytes 0.9 10^3/ul (1.0-4.8); ABS Monocytes 0.8 10^3/ul (0-0.8); ABS Neutrophils 16.1 10^3/ul (1.5-7.7); ABS Nucleated RBC 0.1 10^3/ul; Eosinophil % 0.3 %; Lymphocyte % 5.2 %; Mean Corpuscular HGB Conc 33 g/dL (31-36); Mean Corpuscular Hemoglobin 28 pg (27-31); Mean Corpuscular Volume 84 fL (80-97); Mean Platelet Volume 8.1 fL (7.4-10.4); Nucleated Red Blood Cells % 0.3; Platelet Count 362 10^3/uL (150-450); Red Blood Count 2.85 10^6 /uL (3.70-4.87); Red Cell Distribution Width 17 % (10.5-15)
[2018-05-17 06:27] LABS: BUN/Creatinine Ratio 6.6 (8-20); EGFR African American 9.9 (>60); EGFR Non-African American 8.2 (>60); Magnesium 1.7 mg/dL (1.9-2.7); Phosphorus 4.7 mg/dL (2.5-5.0); Potassium 3.3 mmol/L (3.5-5.0)
[2018-05-17 06:30] LABS: Calcium 6.2 mg/dL (8.6-10.3)
[2018-05-17] MEDS: Pantoprazole* 80 mg IN NS 80 MG/250 ML BAG IVPB SCH ×3 (07:04→20:31)
[2018-05-17] MEDS: fentaNYL Patch Check Q Shift 1 NOTE SCH ×2 (07:10→19:17)
[2018-05-17] MEDS: Dronabinol CAP* 2.5 MG PO SCH ×3 (08:02→21:25)
[2018-05-17] MEDS: DULoxetine DR CAP* 30 MG CAP.DR PO SCH (08:02)
[2018-05-17] MEDS: Lidocaine 2% JELLY* 6 ML JELLY TOPICAL SCH ×3 (08:17→21:26)
[2018-05-17] MEDS: Insulin LISPRO* 1 UNITS UNIT SUBCUT SCH ×4 (09:12→21:57)
[2018-05-17] MEDS: Cinacalcet TAB* 30 MG PO SCH (09:28)
[2018-05-17] MEDS: Sevelamer TAB* 800 MG PO SCH (09:29)
[2018-05-17] MEDS: Mometasone/Formoter 200/5 MDI INH SCH ×2 (09:32→19:30)
[2018-05-17] MEDS ORDERED: Magnesium Sulfate 2 GM IV* 2 GM/50 ML BAG IVPB ONE (09:35)
[2018-05-17] MEDS ORDERED: KCL 20 MEQ/100 ML IVPREMIX* 20 MEQ/100 ML BAG IV SCH (10:00)
[2018-05-17] MEDS: Oxymetazoline 0.05% NASAL SPR* 15 ML BTL BOTH NARES SCH (10:01)
[2018-05-17] MEDS: CMCS:Midodrine (NF) 5 MG TAB PO SCH ×4 (10:09→21:25)
[2018-05-17] MEDS: Sodium Bicarbonate (ANTACID)* 650 MG TAB PO SCH ×4 (10:09→21:25)
[2018-05-17] MEDS ORDERED: CALCITRIOL 1 MCG/ML PO SCH ×2 (10:30)
[2018-05-17] MEDS: CALCITRIOL 1 MCG/ML PO SCH ×2 (10:35→21:24)
[2018-05-17 13:01] LABS: Hematocrit 24 % (33-41); Hemoglobin 7.8 g/dL (12.0-16.0)
--- NOTE | 2018-05-17 13:17 | PN ---
Subjective Date of Service: 05/17/18 Interval History: Patient is complaining of severe pain in B/L Legs in thighs and sacrum at areas of ulcers. Patient feels moderately SOB, worse with exertion without cough or wheezing. Patient has intermittent cramping abdominal pain in the RLQ which is intermittent and not worsened with movement or palpation. Patient has not had any more rectal bleeding and denies dysuria or hematuria. Patient denies CP, F/C , N/V, Nosebleeding. Family History: Unchanged from Admission Social History: Unchanged from Admission Past Medical History: Unchanged from Admission Objective Active Medications: Acetaminophen (Tylenol Tab*) 650 mg PO Q6H PRN PRN Reason: PAIN Last Admin: 05/10/18 14:04 Dose: 650 mg Al Hydrox/Mg Hydrox/Simethicone (Maalox Plus*) 30 ml PO Q6H PRN PRN Reason: DYSPEPSIA Last Admin: 05/07/18 05:22 Dose: 30 ml Albuterol (Ventolin 2.5 Mg/3 Ml Neb.Kaylynn*) 2.5 mg INH Q4HR PRN PRN Reason: SOB/WHEEZING Last Admin: 05/11/18 13:17 Dose: 2.5 mg Albuterol/Ipratropium (Duoneb (Albuterol 2.5 Mg/Ipratropium 0.5 Mg)) 1 neb INH [id number] AWAKE PRN PRN Reason: SOB/WHEEZING Last Admin: 05/17/18 04:13 Dose: 1 neb Calcitriol (Calcitriol Oral.Kaylynn*) 0.25 mcg PO Q12HR [facility] Last Admin: 05/17/18 10:35 Dose: 0.25 ml Calcium Carbonate (Calcium Carbonate Tab*) 1,250 mg PO TID [facility] Dextrose (D50w Syringe 50 Ml*) 25 gm IV PUSH .FOR FS < 60 - SS PRN PRN Reason: FS < 60 Dronabinol (Marinol Cap*) 5 mg PO TID [facility] Last Admin: 05/17/18 08:02 Dose: 5 mg Duloxetine HCl (Cymbalta Cap*) 30 mg PO DAILY [facility] Last Admin: 05/17/18 08:02 Dose: 30 mg Epoetin Darci (Retacrit) 4,000 unit SUBCUT MoWeFr [facility] Last Admin: 05/16/18 18:50 Dose: 4,000 unit Fentanyl (Duragesic Patch 50 Mcg/Hr*) 50 mcg TRANSDERM Q72H [facility] Last Admin: 05/14/18 17:42 Dose: 50 mcg Hydromorphone HCl (Dilaudid Inj1s*) 2 mg IV SLOW PU Q4H PRN PRN Reason: PAIN Last Admin: 05/17/18 12:44 Dose: 2 mg Sodium Thiosulfate 25 gm/ (Sodium Chloride) 200 mls @ 200 mls/hr IV SuMoWeFr@ 2000 [facility] Last Admin: 05/16/18 22:04 Dose: 200 mls/hr Pantoprazole Sodium (Protonix Iv Bag*) 80 mg in 250 mls @ 25 mls/hr IVPB Q10H [facility] Last Admin: 05/17/18 10:14 Dose: 25 mls/hr Potassium Chloride (Potassium Chloride 20 Meq/100 Ml Ivpremix*) 20 meq in 100 mls @ 50 mls/hr IV ONCE ONE Stop: 05/17/18 16:59 Insulin Human Lispro (Humalog*) 0 units SUBCUT ACHS [facility]; Protocol Last Admin: 05/17/18 09:12 Dose: 6 units Lidocaine HCl (Lidocaine 2% Jelly*) 1 applic TOPICAL TID [facility] Last Admin: 05/17/18 08:17 Dose: 1 applic Lorazepam (Ativan Inj*) 1 mg IV PUSH Q6H PRN PRN Reason: ANXIETY OR NAUSEA Last Admin: 05/17/18 11:12 Dose: 1 mg Methadone HCl (Dolophine Tab*) 10 mg PO Q12H [facility] Last Admin: 05/17/18 05:55 Dose: 10 mg Midodrine (Midodrine (Nf)) 10 mg PO 1000,1400,1800,2200 [facility]; Protocol Last Admin: 05/17/18 10:09 Dose: 10 mg Mometasone Furoate/Formoterol Fumar (Dulera 200/5 Mdi*) 2 puff INH BID [facility]; Protocol Last Admin: 05/17/18 09:32 Dose: 2 puff Mupirocin (Bactroban 2 % Oint*) 1 applic TOPICAL DAILY [facility] Last Admin: 05/16/18 09:16 Dose: Not Given Ondansetron HCl (Zofran Inj*) 8 mg IV Q6H PRN PRN Reason: NAUSEA Last Admin: 05/17/18 10:20 Dose: 8 mg Pharmacy Profile Note (Fentanyl Patch Check Q Shift) 1 note N/A 0700,1900 [facility] Last Admin: 05/17/18 07:10 Dose: 1 note Prochlorperazine Edisylate (Compazine Inj*) 5 mg IV Q6H PRN PRN Reason: NAUSEA/VOMITING Last Admin: 05/17/18 12:44 Dose: 5 mg Sodium Bicarbonate (Sodium Bicarbonate (Antacid)*) 2,600 mg PO 1000,1400,1800, 2200 [facility] Last Admin: 05/17/18 10:09 Dose: 2,600 mg Vital Signs - 8 hr 05/17/18 05/17/18 05/17/18 05:16 05:31 05:46 Temperature Pulse Rate 97 93 87 Respiratory 7 16 19 Rate Blood Pressure 156/82 150/60 (mmHg) O2 Sat by Pulse 95 98 100 Oximetry 05/17/18 05/17/18 05/17/18 05:55 06:00 06:01 Temperature Pulse Rate 96 95 Respiratory 26 11 23 Rate Blood Pressure 120/57 (mmHg) O2 Sat by Pulse 92 96 Oximetry 05/17/18 05/17/18 05/17/18 06:16 06:31 06:46 Temperature Pulse Rate 95 89 83 Respiratory 12 18 14 Rate Blood Pressure 124/81 106/68 136/46 (mmHg) O2 Sat by Pulse 97 94 96 Oximetry 05/17/18 05/17/18 05/17/18 06:48 07:00 07:01 Temperature Pulse Rate 84 83 83 Respiratory 14 15 11 Rate Blood Pressure 136/46 140/36 (mmHg) O2 Sat by Pulse 96 99 99 Oximetry 05/17/18 05/17/18 05/17/18 07:15 07:31 07:46 Temperature Pulse Rate 94 93 94 Respiratory 16 20 20 Rate Blood Pressure 133/114 147/53 (mmHg) O2 Sat by Pulse 96 93 92 Oximetry 05/17/18 05/17/18 05/17/18 08:00 08:01 08:11 Temperature 98.8 F Pulse Rate 88 88 Respiratory 14 13 16 Rate Blood Pressure 152/51 (mmHg) O2 Sat by Pulse 96 95 Oximetry 05/17/18 05/17/18 05/17/18 08:31 09:00 09:01 Temperature Pulse Rate 93 87 Respiratory 10 13 10 Rate Blood Pressure 175/50 130/41 (mmHg) O2 Sat by Pulse 96 94 Oximetry 05/17/18 05/17/18 05/17/18 09:30 09:33 10:00 Temperature Pulse Rate 92 94 Respiratory 17 16 15 Rate Blood Pressure (mmHg) O2 Sat by Pulse 99 Oximetry 05/17/18 05/17/18 05/17/18 10:01 10:31 11:00 Temperature Pulse Rate 93 97 Respiratory 17 9 9 Rate Blood Pressure 143/57 119/50 (mmHg) O2 Sat by Pulse 94 98 Oximetry 05/17/18 05/17/18 05/17/18 11:01 11:12 11:30 Temperature Pulse Rate 108 96 Respiratory 19 95 10 Rate Blood Pressure 155/134 113/66 (mmHg) O2 Sat by Pulse 94 91 Oximetry 05/17/18 05/17/18 05/17/18 12:00 12:01 12:30 Temperature Pulse Rate 93 93 88 Respiratory 12 6 4 Rate Blood Pressure 101/73 (mmHg) O2 Sat by Pulse 95 92 89 Oximetry 05/17/18 05/17/18 05/17/18 12:44 13:00 13:03 Temperature Pulse Rate 93 91 Respiratory 10 8 3 Rate Blood Pressure 103/63 (mmHg) O2 Sat by Pulse 90 87 Oximetry Oxygen Devices in Use Now: Nasal Cannula Appearance: Patient is a 37yo female who appears older than stated age and is sitting in the bed in [facility]. Eyes: No Scleral Icterus, PERRLA Ears/Nose/Mouth/Throat: NL Teeth, Lips, Gums, Clear Oropharnyx, Mucous Membranes Moist Neck: NL Appearance and Movements; NL JVP, Trachea Midline Respiratory: Symmetrical Chest Expansion and Respiratory Effort, Clear to Auscultation Cardiovascular: NL Sounds; No Murmurs; No JVD, RRR, - - Trace edema. Pulses trace in B/L LE. Abdominal: NL Sounds; No Tenderness; No Distention, No Hepatosplenomegaly Lymphatic: No Cervical Adenopathy Extremities: No Edema, No Clubbing, Cyanosis Skin: - - Dusky areas on Legs and sacrum with flaking of the skin superficially. Possible pressure wounds on B/L gluteal areas. Neurological: Alert and Oriented x 3, NL Sensation, NL Muscle Strength and Tone , - - Strabismus, CN II-XII otherwise intact. Result Diagrams: 05/17/18 12:51 05/17/18 06:05 Microbiology and Other Data: Microbiology 04/29/18 23:00 Nasal Screen MRSA (PCR) - Final Nasal Mrsa Not Detected Assess/Plan/Problems-Billing Assessment: 37W with complicated medical history including ESRD on PD, PAD s/p femoral stents on warfarin, COPD with chronic resp failure and active smoking on 5L O2, IDDM, chronic pain on methadone, unconfirmed CAD, and recent admission at the end of March for PNA, returning with b/l thigh pain found with indurated raised lesions over thighs concerning for calciphylaxis now on sodium thiosulfate IV. Hospital course complicated by respiratory failure likely from PNA requiring intubation, extubated on 05/05. Patient then developed GI bleeding on 05/16 which is improving. - Patient Problems (1) Acute respiratory failure with hypoxia Current Visit: Yes Status: Acute Code(s): J96.01 - ACUTE RESPIRATORY FAILURE WITH HYPOXIA SNOMED Code(s): 08585565 Comment: - She is back to her baseline O2 requirement of 5L continuously. Extubated . Thought to be from PNA and volume overload causing pulm congestion. - S/P 7 days of Zosyn - cont Dulera with albuterol prn - Fluid overloaded today causing wheezing and rales on exam, will remove with dialysis (2) Calciphylaxis Current Visit: Yes Status: Acute Code(s): E83.59 - OTHER DISORDERS OF CALCIUM METABOLISM SNOMED Code(s): 400917685 Comment: - S/P skin biopsy by surgery (Dr. Salinas) on 05/12. - Warfarin can exacerbate calciphylaxis, - cont IV sodium thiosulfate (05/07 - ) - Calcium low today at 6.4, discussed with Dr. Marrufo of Nephrology who recommended short term courses of calcitriol and calcium carbonate, watch closely, check albumin. Corrects to 7.4 based on most recent albumin. - Phosphorus WNL, Hold Sensipar and Sevelamer (3) PAD (peripheral artery disease) Current Visit: Yes Status: Chronic Code(s): I73.9 - PERIPHERAL VASCULAR DISEASE, UNSPECIFIED SNOMED Code(s): 615552957 Comment: - S/P bare metal stenting and complicated by DVTs. CT Aorta with run off this admission with moderate-severe R common femoral artery stenosis, severe b/l popliteal artery stenosis, near complete occlusion of distal L superficial fem artery stent. - Anticoagulation held at this time for GI bleeding. - Resume with caution, consider lower dosing on NOAC due to ESRD and bleeding with possible monitoring of Anti factor Xa monitoring (4) GI bleed Current Visit: Yes Status: Acute Code(s): K92.2 - GASTROINTESTINAL HEMORRHAGE, UNSPECIFIED SNOMED Code(s): 68231885 Comment: - Acute Lower GI Bleeding, Appreciate Gi consult - PPI drip, hold anticoagulation - Hemoglobin 7.8 S/P 2u, up from 6.3 - Differential includes ischemic colitis that occured from hypotension in setting of thiosulfate infusion, Calciphylaxis affecting Gi tract with sloughing , diverticular bleed, or upper GI bleed with fast transit. - Q6H H/H, hemodynamically stable - Advance diet - Poor endoscopy candidate, conservative managment. (5) ESRD on peritoneal dialysis Current Visit: Yes Status: Chronic Priority: High Code(s): N18.6 - END STAGE RENAL DISEASE; Z99.2 - DEPENDENCE ON RENAL DIALYSIS SNOMED Code(s): 01683353 Comment: - On peritoneal dialysis. - Continue PD, Replace K+ Gently - Discussed with Dr. Marrufo, Start short term calcium/vitamin D in setting of hypocalcamia. - Monitor BMP, Phos, Mag (6) IDDM (insulin dependent diabetes mellitus) Current Visit: Yes Status: Chronic Priority: High Code(s): E11.9 - TYPE 2 DIABETES MELLITUS WITHOUT COMPLICATIONS; Z79.4 - OLIVE KNOCKER (CURRENT) USE OF INSULIN SNOMED Code(s): 25996465 Comment: - HgbA1c 8.8% - Cont basal/bolus insulin (7) DVT prophylaxis Current Visit: Yes Status: Acute Code(s): DRR6854 - SNOMED Code(s): 607284180 Comment: - None in setting of PVD with thrombosis, Calciphylaxis, and GI bleeding. Status and Disposition: Remains admitted. Will need to find plan for administering IV sodium thiosulfate after discharge. Patient's condition is guarded.
[2018-05-17] MEDS: Mupirocin 2% OINT* TUBE TOPICAL SCH (13:44)
--- NOTE | 2018-05-17 13:45 | CONS ---
CONSULTATION REPORT: DATE OF CONSULT: 05/17/18 REQUESTING PROVIDER: GIOVANNI Lr REASON FOR CONSULTATION: Hematochezia, anemia. HISTORY OF PRESENT ILLNESS: This is a 37-year-old female with complicated medical history including end-stage renal disease, on peritoneal dialysis; COPD, on 5 liters of oxygen at baseline; severe diab etes mellitus; coronary artery disease, and chronic pain, who initially presented to the [facility] with bilateral leg pain. Her course was complicated with sepsis secondary to pneumonia, and u ltimately a diagnosis of calciphylaxis was made with skin wedge biopsy during the hospitalization. S he has been started on sodium thiosulfate. She states about 5 to 6 days ago, she had 1 episode where she had some nasal bleeding, vaginal bleeding, in addition some dark clots during a bowel movement. She states at baseline she is constipated and has difficulties moving her bowel secondary to her chr onic pain and opioid regimen. The patient is a relatively poor historian who does wax and wane durin g the conversation secondary to analgesics, but is able to answer direct questions thoughtfully and w ith clear answers. Her significant other is at the bedside. She admits to generalized abdominal aircraft riveter mping but no distinct pain. She denies any current hematemesis, however, does admit to nausea and vo miting that is mostly at her baseline. She admits to bilateral lower extremity pain and shortness of breath. She states that she has not had a bowel movement this morning, but did have a movement or 2 over the evening. The HPI was limited by patient's status. Additional history was obtained from [facility] medical record, the hospitalist and also nursing staff. The nursing staff states that she had 1 t o 2 movement overnight with some scant bleeding less than the previous shift, and this morning no bow el movement yet. Review of vitals indicate that she had multiple days of hypotension prior to this. In addition, she has this new diagnosis of calciphylaxis. She had a previous upper endoscopy at [facility], which she states showed gastritis but no distinct ulceration; this was about 1 year ago. She has never had a colonoscopy. She is currently on high-flow oxygen at 10 L with a saturation of 91%. PAST MEDICAL HISTORY: 1. End-stage renal disease, on peritoneal dialysis. 2. COPD, on supplemental oxygen of 5 L at baseline. 3. Diabetes mellitus. 4. Severe peripheral arterial disease. 5. Coronary artery disease. 6. Gastroparesis. 7. Anxiety and depression. 8. Hypertension. 9. Hyperlipidemia. PAST SURGICAL HISTORY: Right metatarsal amputation. HOME MEDICATIONS: Include: 1. Tylenol. 2. Aspirin. 3. Bethanechol. 4. Symbicort. 5. Calcitriol. 6. Gabapentin. 7. Insulin glargine. 8. Methadone. 9. Omeprazole. 10. Promethazine. 11. Sertraline. 12. Warfarin. 13. Albuterol. 14. Losartan. 15. NovoLog. ALLERGIES: Include DOXYCYCLINE, ERYTHROMYCIN, HEPARIN, REGLAN, NIACIN, REQUIP, METRONIDAZOLE, and MARIN LFA. FAMILY HISTORY: Denies any family history of GI or liver disease. Has a strong cardiac disease and diabetes in the family. Her father had an MN at age 49. SOCIAL HISTORY: Prior to hospitalization, patient was an active smoker, half a pack a day. Denies a ny alcohol or recreational use. REVIEW OF SYSTEMS: Remainder of the 14-point review of systems is grossly negative, but limited by t he patient's mental status. PHYSICAL EXAMINATION: Vital Signs: Blood pressure 130/41, 91% on 10 L, heart rate 86, respiratory r ate 10 to 16, T-max 98.6 in 24 hours. General: Chronically ill- appearing female who will wax and w ane through the conservation secondary to opioid administration. HEENT: Conjunctivae are pink. Scl erae anicteric. Pupils slightly constricted. Cardiovascular: Regular rate and rhythm, S1, S2. Pulm onary: Diminished bilaterally. Fair effort with trace rales. Abdomen: Soft, nontender, nondistend ed. Bowel sounds positive. Extremities: Bilateral thighs with purple to black lesions with scatter ed ecchymoses throughout. DIAGNOSTIC STUDIES/LABORATORY DATA: Baseline hemoglobin appears to be in the 8 to 9 range. She had slight downtrending over the last 4 to 5 days with a marques that was reached on 05/16/18 at 6.3. She was given 2 units of PRBCs and has improved to 8.0. Before this she was 6.7, received 1 unit and had continued downtrending. Platelet count is 362, INR is 1.40. BUN 38, creatinine 5.79. Chest x-ray today with pulmonary congestion. ASSESSMENT AND PLAN: This is a 37-year-old female with end-stage renal disease, on peritoneal dialys is; severe chronic obstructive pulmonary disease; recent sepsis secondary to pneumonia with respirato ry failure, who now has calciphylaxis and an episode of hematochezia. 1. Acute blood loss anemia, appears to be multifactorial. She had episodes of documented hypotensio n for significant portion of multiple days recently. Ischemic colitis would be fairly high in differ ential. Disseminated intravascular coagulation is also possible given that she had associated bleedi ng from other membranous sources including vaginal and nasal sources. Currently the bleeding appears to have slowed or even stopped. She was given Kcentra appropriately. Her anticoagulation was start ed 5 to 6 days ago. She is high risk from a GI point of view for anticoagulation. I discussed brief ly that the best approach would be to perform a colonoscopy to evaluate her lower GI tract. However, I think the suspicion for ischemic colitis is probably fairly high in the differential and the treat ment for that would be conservative with avoidance of hypotension and the difficulty would be with he r pulmonary status, sedation would be difficult to close to impossible without intubation and I am no t sure if she will be able to come off the ventilator if she was intubated. I also offered a nonseda xochitl to low sedated flexible sigmoidoscopy or colonoscopy as she tolerated, but she states she does no t believe that she would tolerate this and would prefer not to do so. She would prefer observation a t this point. If full anticoagulation is desired for her lower extremity condition, I think colonosc opy would be more indicated in that standpoint, at this point, I think conservative management and ob servation is prudent. If colonoscopy is eventually desired, would contact our service to arrange for the best possible plan in terms of potential sedation versus non- sedation and Anesthesia assistance if needed. I would continue the Protonix drip at this time given her critical illness in the ICU. Certainly peptic ulcer disease would be in differential as well. If no bleeding over the next few da ys, can transition to b.i.d. appropriately. We will continue to monitor H and H at every 6 hours, ke ep 2 units of PRBCs on hold. 2. Calciphylaxis, being managed by the primary service and Nephrology, severe, on sodium thiosulfate . There have been reports of mucosal injury from calciphylaxis and this may be another potential pos sibility for her bleeding source. 3. Severe chronic obstructive pulmonary disease, on 10 L of oxygen per primary service. 4. Severe peripheral arterial disease, per primary service. [id number]/[facility] #: [id number]
[2018-05-17] MEDS: Calcium Carbonate TAB* 1250 MG (CALCIUM 500 MG) PO SCH ×2 (14:37→21:24)
[2018-05-17 14:52] LABS: Albumin 2.2 g/dL (3.2-5.2)
[2018-05-17] MEDS ORDERED: KCL 20 MEQ/100 ML IVPREMIX* 20 MEQ/100 ML BAG IV ONE (15:00)
[2018-05-17] MEDS: fentaNYL PATCH 50 MCG/HR TRANSDERM SCH (17:07)
[2018-05-18 00:34] LABS: Hematocrit 23 % (33-41); Hemoglobin 7.5 g/dL (12.0-16.0)
[2018-05-18] MEDS: Pantoprazole* 80 mg IN NS 80 MG/250 ML BAG IVPB SCH ×5 (02:23→23:16)
[2018-05-18] MEDS: Methadone TAB* 10 MG PO SCH ×2 (05:44→16:47)
[2018-05-18 05:48] LABS: ABS Basophils 0.1 10^3/ul (0-0.2); ABS Eosinophils 0.1 10^3/ul (0-0.6); ABS Monocytes 0.8 10^3/ul (0-0.8); ABS Neutrophils 16.4 10^3/ul (1.5-7.7); ABS Nucleated RBC 0 10^3/ul; Eosinophil % 0.5 %; Hematocrit 23 % (33-41); Hemoglobin 7.6 g/dL (12.0-16.0); Lymphocyte % 5.5 %; Mean Corpuscular HGB Conc 33 g/dL (31-36); Mean Corpuscular Hemoglobin 28 pg (27-31); Mean Corpuscular Volume 85 fL (80-97); Mean Platelet Volume 7.4 fL (7.4-10.4); Nucleated Red Blood Cells % 0.1; Platelet Count 373 10^3/uL (150-450); Red Blood Count 2.71 10^6 /uL (3.70-4.87); Red Cell Distribution Width 17 % (10.5-15); White Blood Count 18.5 10^3/uL (3.5-10.8)
[2018-05-18] MEDS: Albuterol 2.5 MG/3 ML NEB.SOL* (0.083%) INH PRN ×2 (06:01→16:47)
[2018-05-18 06:08] LABS: BUN/Creatinine Ratio 5.7 (8-20); Calcium 6.9 mg/dL (8.6-10.3); EGFR African American 9.3 (>60); EGFR Non-African American 7.7 (>60); Magnesium 1.7 mg/dL (1.9-2.7); Potassium 3.7 mmol/L (3.5-5.0)
[2018-05-18] MEDS: fentaNYL Patch Check Q Shift 1 NOTE SCH ×2 (07:05→19:21)
[2018-05-18] MEDS: DULoxetine DR CAP* 30 MG CAP.DR PO SCH (08:25)
[2018-05-18] MEDS: Ondansetron INJ* 2 MG/ML VIAL IV PRN ×2 (08:25→21:48)
[2018-05-18] MEDS: CALCITRIOL 1 MCG/ML PO SCH ×2 (08:28→21:32)
[2018-05-18] MEDS: Insulin LISPRO* 1 UNITS UNIT SUBCUT SCH ×4 (08:28→20:50)
[2018-05-18] MEDS: Sodium Bicarbonate (ANTACID)* 650 MG TAB PO SCH ×4 (08:29→23:13)
[2018-05-18] MEDS: Dronabinol CAP* 2.5 MG PO SCH ×3 (08:30→21:32)
[2018-05-18] MEDS: Calcium Carbonate TAB* 1250 MG (CALCIUM 500 MG) PO SCH (08:30)
[2018-05-18] MEDS: Lidocaine 2% JELLY* 6 ML JELLY TOPICAL SCH ×3 (08:31→21:32)
[2018-05-18] MEDS: CMCS:Midodrine (NF) 5 MG TAB PO SCH ×4 (08:34→23:08)
--- NOTE | 2018-05-18 08:42 | PN ---
Subjective Date of Service: 05/18/18 Interval History: HOSPITALIST PROGRESS NOTE Patient seen and examined at bedside. Care reviewed and d/w Emily Garcia RN. She denies abdominal pain, N/V; appetite is poor. As per RN, had only a "smear of blood" last night, no further overt GI bleed. As per her CHRISTINA, she has had right 2nd and 3rd finger pain for days and she also noted discoloration. She thinks leg lesions are unchanged. Family History: Unchanged from Admission Social History: Unchanged from Admission Past Medical History: Unchanged from Admission Objective Active Medications: Acetaminophen (Tylenol Tab*) 650 mg PO Q6H PRN PRN Reason: PAIN Last Admin: 05/10/18 14:04 Dose: 650 mg Al Hydrox/Mg Hydrox/Simethicone (Maalox Plus*) 30 ml PO Q6H PRN PRN Reason: DYSPEPSIA Last Admin: 05/07/18 05:22 Dose: 30 ml Albuterol (Ventolin 2.5 Mg/3 Ml Neb.Kaylynn*) 2.5 mg INH Q4HR PRN PRN Reason: SOB/WHEEZING Last Admin: 05/18/18 06:01 Dose: 2.5 mg Albuterol/Ipratropium (Duoneb (Albuterol 2.5 Mg/Ipratropium 0.5 Mg)) 1 neb INH [id number] AWAKE PRN PRN Reason: SOB/WHEEZING Last Admin: 05/17/18 16:24 Dose: 1 neb Calcitriol (Calcitriol Oral.Kaylynn*) 0.25 mcg PO Q12HR [facility] Stop: 05/18/18 21:01 Last Admin: 05/18/18 08:28 Dose: 0.25 ml Calcium Carbonate (Calcium Carbonate Tab*) 1,250 mg PO TID [facility] Stop: 05/18/18 09:01 Last Admin: 05/18/18 08:30 Dose: 1,250 mg Dextrose (D50w Syringe 50 Ml*) 25 gm IV PUSH .FOR FS < 60 - SS PRN PRN Reason: FS < 60 Last Admin: 05/17/18 21:07 Dose: 25 gm Dronabinol (Marinol Cap*) 5 mg PO TID [facility] Last Admin: 05/18/18 08:30 Dose: 5 mg Duloxetine HCl (Cymbalta Cap*) 30 mg PO DAILY [facility] Last Admin: 05/17/18 08:02 Dose: 30 mg Epoetin Darci (Retacrit) 4,000 unit SUBCUT MoWeFr [facility] Last Admin: 05/16/18 18:50 Dose: 4,000 unit Fentanyl (Duragesic Patch 50 Mcg/Hr*) 50 mcg TRANSDERM Q72H [facility] Last Admin: 05/17/18 17:07 Dose: 50 mcg Hydromorphone HCl (Dilaudid Inj1s*) 2 mg IV SLOW PU Q4H PRN PRN Reason: PAIN Last Admin: 05/17/18 21:38 Dose: 2 mg Sodium Thiosulfate 25 gm/ (Sodium Chloride) 200 mls @ 200 mls/hr IV SuMoWeFr@ 2000 [facility] Last Admin: 05/16/18 22:04 Dose: 200 mls/hr Pantoprazole Sodium (Protonix Iv Bag*) 80 mg in 250 mls @ 25 mls/hr IVPB Q10H [facility] Last Admin: 05/18/18 07:05 Dose: 25 mls/hr Insulin Human Lispro (Humalog*) 0 units SUBCUT ACHS [facility]; Protocol Last Admin: 05/18/18 08:28 Dose: 3 units Lidocaine HCl (Lidocaine 2% Jelly*) 1 applic TOPICAL TID [facility] Last Admin: 05/18/18 08:31 Dose: Not Given Lorazepam (Ativan Inj*) 1 mg IV PUSH Q6H PRN PRN Reason: ANXIETY OR NAUSEA Last Admin: 05/17/18 11:12 Dose: 1 mg Methadone HCl (Dolophine Tab*) 10 mg PO Q12H [facility] Last Admin: 05/18/18 05:44 Dose: 10 mg Midodrine (Midodrine (Nf)) 10 mg PO 1000,1400,1800,2200 [facility]; Protocol Last Admin: 05/18/18 08:34 Dose: 10 mg Mometasone Furoate/Formoterol Fumar (Dulera 200/5 Mdi*) 2 puff INH BID [facility]; Protocol Last Admin: 05/17/18 19:30 Dose: Not Given Mupirocin (Bactroban 2 % Oint*) 1 applic TOPICAL DAILY [facility] Last Admin: 05/17/18 13:44 Dose: 1 applic Ondansetron HCl (Zofran Inj*) 8 mg IV Q6H PRN PRN Reason: NAUSEA Last Admin: 05/18/18 08:25 Dose: 8 mg Pharmacy Profile Note (Fentanyl Patch Check Q Shift) 1 note N/A 0700,1900 [facility] Last Admin: 05/18/18 07:05 Dose: 1 note Prochlorperazine Edisylate (Compazine Inj*) 5 mg IV Q6H PRN PRN Reason: NAUSEA/VOMITING Last Admin: 05/17/18 18:04 Dose: 5 mg Sodium Bicarbonate (Sodium Bicarbonate (Antacid)*) 2,600 mg PO 1000,1400,1800, 2200 [facility] Last Admin: 05/18/18 08:29 Dose: 2,600 mg Vital Signs - 8 hr 05/18/18 05/18/18 05/18/18 01:00 01:01 01:31 Temperature Pulse Rate 98 99 Respiratory 10 10 9 Rate Blood Pressure 159/55 145/57 (mmHg) O2 Sat by Pulse 94 93 Oximetry 05/18/18 05/18/18 05/18/18 02:00 02:01 02:31 Temperature Pulse Rate 101 97 Respiratory 12 7 11 Rate Blood Pressure (mmHg) O2 Sat by Pulse 94 94 Oximetry 05/18/18 05/18/18 05/18/18 03:00 03:01 03:31 Temperature Pulse Rate 98 100 95 Respiratory 10 24 13 Rate Blood Pressure 109/64 132/43 (mmHg) O2 Sat by Pulse 89 91 93 Oximetry 05/18/18 05/18/18 05/18/18 03:51 04:00 04:01 Temperature 98.2 F Pulse Rate 97 97 Respiratory 14 15 Rate Blood Pressure (mmHg) O2 Sat by Pulse 88 95 Oximetry 05/18/18 05/18/18 05/18/18 04:31 05:00 05:02 Temperature Pulse Rate 99 99 100 Respiratory 20 12 16 Rate Blood Pressure 155/54 (mmHg) O2 Sat by Pulse 85 88 96 Oximetry 05/18/18 05/18/18 05/18/18 05:31 05:44 06:00 Temperature Pulse Rate 97 96 Respiratory 13 17 20 Rate Blood Pressure 146/46 (mmHg) O2 Sat by Pulse 95 91 Oximetry 05/18/18 05/18/18 05/18/18 06:01 06:02 06:31 Temperature Pulse Rate 95 97 100 Respiratory 19 16 10 Rate Blood Pressure 123/47 (mmHg) O2 Sat by Pulse 89 98 97 Oximetry 05/18/18 05/18/18 05/18/18 07:00 07:01 07:31 Temperature Pulse Rate 100 100 107 Respiratory 22 17 14 Rate Blood Pressure 135/40 142/58 (mmHg) O2 Sat by Pulse 87 86 93 Oximetry 05/18/18 08:01 Temperature Pulse Rate 102 Respiratory 18 Rate Blood Pressure 106/61 (mmHg) O2 Sat by Pulse 84 Oximetry Oxygen Devices in Use Now: Nasal Cannula - 12 liters Appearance: Chronically ill appearing lady, appears older than stated age, lying in bed in NAD. Eyes: No Scleral Icterus Ears/Nose/Mouth/Throat: Mucous Membranes Moist Neck: Trachea Midline Respiratory: Symmetrical Chest Expansion and Respiratory Effort, Clear to Auscultation Cardiovascular: RRR - Normal S1 and S2 Abdominal: - - Obese, soft, NT, NG, NR, BS+ hypoactive Extremities: - - Trace bilateral LE edema with diminshed DP pulses. Right 3rd thing with tip cyanosis and palpable nodule. Skin: - - Dusky lesions to her thighs and sacral area with skin disquamation Neurological: Alert and Oriented x 3, - - BAILEY Result Diagrams: 05/18/18 05:40 05/18/18 05:40 Assess/Plan/Problems-Billing Assessment: 37 yo F with complicated medical history including ESRD on PD, PAD s/p femoral stents on warfarin, COPD with chronic resp failure and active smoking on 5L O2 at baseline, insulin dependent DM, chronic pain on methadone, probable CAD, and recent admission at the end of March for PNA, returning with bilateral thigh pain found to have indurated raised lesions over thighs compatible with calciphylaxis now on sodium thiosulfate IV. Hospital course complicated by respiratory failure likely from PNA requiring intubation, extubated on 05/05. Patient then developed GI bleeding on 05/16 which is improving. - Patient Problems (1) GI bleed Comment: - Source is unclear, but suspect ischemic colitis in the setting of hypotension and known vascular disease. - GI input appreciated - high risk for bleeding with anticoagulation from a GI POV. - Continue PPI drip for possible upper GI source. - H/H 7.6/23. - Clear liquid diet as tolerated. (2) Anemia Comment: - Multifactorial - anemia of CKD, iron deficiency, AOCD. - Has received 4 PRBCs so far during this admission. - Continue Epoetin. (3) Bleeding disorder Comment: - Concern for DIC with her h/o epistaxis, vaginal bleeding (in the setting of Warfarin use), now GI bleed (off Warfarin). - PT/PTT are prolonged, d-dimer elevated, but fibrinogen is also high. - No signs of active bleeding now, platelets are normal. - Check cryofibrinogen. (4) Vasculitis Comment: - Her right 3rd finger discoloration and palpable nodule suggests vasculitis, especially cryoglobulinemia. - Will check hepatitis serology, MARY, ANCA, ESR, PCR, cryoglobulins, cryofibrinogen. - It does not have the papulopustular appearance of Osler nodes, but will check blood cultures and if positive, transesophageal echocardiogram. (5) Acute respiratory failure with hypoxia Comment: - Acute on chronic hypoxemic respiratory failure. - She was back to her baseline O2 requirement of 5L continuously, extubated . Thought to be from PNA and volume overload causing pulm congestion. - Completed 7 days of Zosyn. - Continue Dulera and bronchodilators. (6) Calciphylaxis Comment: - S/p skin biopsy on 05/12 with pathology confirmation. - Continue IV sodium thiosulfate (daily on 05/07/ , 15, 16, 17, 18; then changed to SuMoWeFr - 05/14, ) - 8 infusions so far. - Continue to monitor for hypotension. (7) Secondary hyperparathyroidism of renal origin Comment: - Phos 4.7, calcium 6.2 (corrected 7.6), 25-vitamin D <7.0, PTH 85. - Phosphorus is normal. - Corrected Calcium is >7.5. - Continue Calcitriol. - Repeat Ca, phos, PTH tomorrow - depending on levels may add Cinacalcet. (8) PAD (peripheral artery disease) Comment: - S/p bare metal stenting and complicated by DVTs. CT Aorta with run off this admission with moderate-severe R common femoral artery stenosis, severe b/l popliteal artery stenosis, near complete occlusion of distal L superficial fem artery stent. - Anticoagulation held at this time for GI bleeding. - Unclear when will be able to resume it, but as Warfarin can worse calciphylaxis, consider lower dose Apixaban due to ESRD and bleeding with possible monitoring of factor Xa level. (9) ESRD on peritoneal dialysis Comment: - Continue peritoneal dialysis. (10) IDDM (insulin dependent diabetes mellitus) Comment: - HgbA1c 8.8% - Hypoglycemia last night asymptomatic (19 on one finger, 60 on another, but 102 on blood draw). - Continue Lispro SS. (11) DVT prophylaxis Comment: - Pharmacological prophylaxis contraindicated in the setting of GI bleed. - Mechanical prophylaxis contraindicated in the setting of tender LE lesions due to calciphylaxis. (12) Full code status Status and Disposition: Inpatient. 70 minutes critical care time.
[2018-05-18 08:48] LABS: Activated Partial Thrombo Time 37.9 seconds (26.0-36.3); INR 1.57 (0.77-1.02)
[2018-05-18] MEDS: Albuterol/Ipratropium NEB.SOL* Albuterol 2.5 MG/Ipratropium 0.5 MG 3 ML INH PRN ×2 (08:56→20:52)
[2018-05-18] MEDS: Mupirocin 2% OINT* TUBE TOPICAL SCH (08:56)
[2018-05-18] MEDS: Mometasone/Formoter 200/5 MDI INH SCH ×2 (08:56→20:53)
[2018-05-18] MEDS: HYDROmorphone INJ1* 1 MG/ML SYRINGE IV SLOW PU PRN ×2 (09:27→13:33)
[2018-05-18 14:26] LABS: Hematocrit 33 % (33-41); Hemoglobin 10.6 g/dL (12.0-16.0)
[2018-05-18] MEDS: SODIUM THIOSULFATE IV SCH (20:47)
[2018-05-18] MEDS: NS 0.9% IV SCH (20:47)
[2018-05-18] MEDS: PROCHLORPERAZINE INJ 5 MG/ML 2 ML VIAL IV PRN (22:43)
[2018-05-19] MEDS: HYDROmorphone INJ1* 1 MG/ML SYRINGE IV SLOW PU PRN ×3 (03:33→14:20)
[2018-05-19] MEDS: Methadone TAB* 10 MG PO SCH (05:38)
[2018-05-19 06:46] LABS: Albumin/Globulin Ratio 0.8 (1-3); BUN/Creatinine Ratio 5.6 (8-20); Calcium 7.1 mg/dL (8.6-10.3); EGFR African American 9.1 (>60); EGFR Non-African American 7.5 (>60); Globulin 2.6 g/dL (2-4); Magnesium 1.6 mg/dL (1.9-2.7); Phosphorus 5.2 mg/dL (2.5-5.0); Potassium 3.6 mmol/L (3.5-5.0); Total Bilirubin 0.3 mg/dL (0.2-1.0); Total Protein 4.6 g/dL (6.4-8.9)
[2018-05-19] MEDS: fentaNYL Patch Check Q Shift 1 NOTE SCH (07:12)
[2018-05-19] MEDS: Insulin LISPRO* 1 UNITS UNIT SUBCUT SCH ×2 (08:27→11:45)
[2018-05-19] MEDS: CMCS:Midodrine (NF) 5 MG TAB PO SCH ×2 (08:35→14:20)
[2018-05-19] MEDS: DULoxetine DR CAP* 30 MG CAP.DR PO SCH (08:35)
[2018-05-19] MEDS: Dronabinol CAP* 2.5 MG PO SCH ×2 (08:35→14:20)
[2018-05-19] MEDS: Sodium Bicarbonate (ANTACID)* 650 MG TAB PO SCH ×2 (08:35→16:12)
[2018-05-19] MEDS: PROCHLORPERAZINE INJ 5 MG/ML 2 ML VIAL IV PRN (08:43)
[2018-05-19] MEDS: Pantoprazole* 80 mg IN NS 80 MG/250 ML BAG IVPB SCH (08:43)
--- NOTE | 2018-05-19 08:43 | PN ---
Subjective Date of Service: 05/19/18 Family History: Unchanged from Admission Social History: Unchanged from Admission Past Medical History: Unchanged from Admission Objective Active Medications: Acetaminophen (Tylenol Tab*) 650 mg PO Q6H PRN PRN Reason: PAIN Last Admin: 05/10/18 14:04 Dose: 650 mg Al Hydrox/Mg Hydrox/Simethicone (Maalox Plus*) 30 ml PO Q6H PRN PRN Reason: DYSPEPSIA Last Admin: 05/07/18 05:22 Dose: 30 ml Albuterol (Ventolin 2.5 Mg/3 Ml Neb.Kaylynn*) 2.5 mg INH Q4HR PRN PRN Reason: SOB/WHEEZING Last Admin: 05/18/18 16:47 Dose: 2.5 mg Albuterol/Ipratropium (Duoneb (Albuterol 2.5 Mg/Ipratropium 0.5 Mg)) 1 neb INH [id number] AWAKE PRN PRN Reason: SOB/WHEEZING Last Admin: 05/18/18 20:52 Dose: 1 neb Dextrose (D50w Syringe 50 Ml*) 25 gm IV PUSH .FOR FS < 60 - SS PRN PRN Reason: FS < 60 Last Admin: 05/17/18 21:07 Dose: 25 gm Dronabinol (Marinol Cap*) 5 mg PO TID [facility] Last Admin: 05/19/18 08:35 Dose: 5 mg Duloxetine HCl (Cymbalta Cap*) 30 mg PO DAILY [facility] Last Admin: 05/19/18 08:35 Dose: 30 mg Epoetin Darci (Retacrit) 4,000 unit SUBCUT MoWeFr [facility] Last Admin: 05/16/18 18:50 Dose: 4,000 unit Fentanyl (Duragesic Patch 50 Mcg/Hr*) 50 mcg TRANSDERM Q72H [facility] Last Admin: 05/17/18 17:07 Dose: 50 mcg Hydromorphone HCl (Dilaudid Inj1s*) 2 mg IV SLOW PU Q4H PRN PRN Reason: PAIN Last Admin: 05/19/18 08:35 Dose: 2 mg Sodium Thiosulfate 25 gm/ (Sodium Chloride) 200 mls @ 200 mls/hr IV SuMoWeFr@ 2000 [facility] Last Admin: 05/18/18 20:47 Dose: 200 mls/hr Pantoprazole Sodium (Protonix Iv Bag*) 80 mg in 250 mls @ 25 mls/hr IVPB Q10H [facility] Last Admin: 05/18/18 23:16 Dose: 25 mls/hr Insulin Human Lispro (Humalog*) 0 units SUBCUT ACHS [facility]; Protocol Last Admin: 05/19/18 08:27 Dose: 2 units Lidocaine HCl (Lidocaine 2% Jelly*) 1 applic TOPICAL TID [facility] Last Admin: 05/18/18 21:32 Dose: 1 applic Lorazepam (Ativan Inj*) 1 mg IV PUSH Q6H PRN PRN Reason: ANXIETY OR NAUSEA Last Admin: 05/17/18 11:12 Dose: 1 mg Methadone HCl (Dolophine Tab*) 10 mg PO Q12H [facility] Last Admin: 05/19/18 05:38 Dose: 10 mg Midodrine (Midodrine (Nf)) 10 mg PO 1000,1400,1800,2200 [facility]; Protocol Last Admin: 05/19/18 08:35 Dose: 10 mg Mometasone Furoate/Formoterol Fumar (Dulera 200/5 Mdi*) 2 puff INH BID [facility]; Protocol Last Admin: 05/18/18 20:53 Dose: Not Given Mupirocin (Bactroban 2 % Oint*) 1 applic TOPICAL DAILY [facility] Last Admin: 05/18/18 08:56 Dose: Not Given Ondansetron HCl (Zofran Inj*) 8 mg IV Q6H PRN PRN Reason: NAUSEA Last Admin: 05/18/18 21:48 Dose: 8 mg Pharmacy Profile Note (Fentanyl Patch Check Q Shift) 1 note N/A 0700,1900 [facility] Last Admin: 05/19/18 07:12 Dose: 1 note Prochlorperazine Edisylate (Compazine Inj*) 5 mg IV Q6H PRN PRN Reason: NAUSEA/VOMITING Last Admin: 05/18/18 22:43 Dose: 5 mg Sodium Bicarbonate (Sodium Bicarbonate (Antacid)*) 2,600 mg PO 1000,1400,1800, 2200 [facility] Last Admin: 05/19/18 08:35 Dose: 2,600 mg Vital Signs - 8 hr 05/19/18 05/19/18 05/19/18 01:00 01:01 01:31 Temperature Pulse Rate 99 104 Respiratory 12 12 13 Rate Blood Pressure 163/66 181/60 (mmHg) O2 Sat by Pulse 75 Oximetry 05/19/18 05/19/18 05/19/18 02:00 02:01 02:30 Temperature Pulse Rate 110 106 Respiratory 8 8 10 Rate Blood Pressure 136/58 114/76 (mmHg) O2 Sat by Pulse 99 96 Oximetry 05/19/18 05/19/18 05/19/18 03:00 03:05 03:18 Temperature Pulse Rate 110 112 Respiratory 17 11 17 Rate Blood Pressure 141/70 (mmHg) O2 Sat by Pulse 94 98 Oximetry 05/19/18 05/19/18 05/19/18 03:24 03:30 03:33 Temperature 97.1 F Pulse Rate 110 Respiratory 18 22 Rate Blood Pressure 138/62 (mmHg) O2 Sat by Pulse 98 Oximetry 05/19/18 05/19/18 05/19/18 04:00 04:30 05:00 Temperature Pulse Rate 113 107 107 Respiratory 14 14 10 Rate Blood Pressure 132/62 139/80 151/65 (mmHg) O2 Sat by Pulse 100 93 94 Oximetry 05/19/18 05/19/18 05/19/18 05:30 05:38 05:51 Temperature Pulse Rate 102 Respiratory 7 14 14 Rate Blood Pressure 137/65 (mmHg) O2 Sat by Pulse 92 Oximetry 05/19/18 05/19/18 05/19/18 06:00 06:02 06:30 Temperature Pulse Rate 107 106 103 Respiratory 7 5 9 Rate Blood Pressure 165/66 159/60 (mmHg) O2 Sat by Pulse 99 97 96 Oximetry 05/19/18 05/19/18 05/19/18 07:00 07:01 07:30 Temperature Pulse Rate 98 97 101 Respiratory 9 9 9 Rate Blood Pressure 144/66 151/67 (mmHg) O2 Sat by Pulse 93 93 88 Oximetry 05/19/18 05/19/18 05/19/18 08:00 08:01 08:35 Temperature Pulse Rate 101 100 Respiratory 9 8 14 Rate Blood Pressure 127/74 (mmHg) O2 Sat by Pulse 95 95 Oximetry Oxygen Devices in Use Now: Nasal Cannula Extremities: - - Able to find right radial and ulnar pulses with doppler Result Diagrams: 05/18/18 13:56 05/19/18 05:50 Microbiology and Other Data: Microbiology 04/29/18 23:00 Nasal Screen MRSA (PCR) - Final Nasal Mrsa Not Detected Assess/Plan/Problems-Billing Assessment: 37 yo F with complicated medical history including ESRD on PD, PAD s/p femoral stents on warfarin, COPD with chronic resp failure and active smoking on 5L O2 at baseline, insulin dependent DM, chronic pain on methadone, probable CAD, and recent admission at the end of March for PNA, returning with bilateral thigh pain found to have indurated raised lesions over thighs compatible with calciphylaxis now on sodium thiosulfate IV. Hospital course complicated by respiratory failure likely from PNA requiring intubation, extubated on 05/05. Patient then developed GI bleeding on 05/16 which is improving. - Patient Problems (1) GI bleed Comment: - Source is unclear, but suspect ischemic colitis in the setting of hypotension and known vascular disease. - GI input appreciated - high risk for bleeding with anticoagulation from a GI POV. - Continue PPI drip for possible upper GI source. - H/H 7.08/17. - Clear liquid diet as tolerated. (2) Anemia Comment: - Multifactorial - anemia of CKD, iron deficiency, AOCD. - Has received 4 PRBCs so far during this admission. - Continue Epoetin. (3) Bleeding disorder Comment: - Concern for DIC with her h/o epistaxis, vaginal bleeding (in the setting of Warfarin use), now GI bleed (off Warfarin). - PT/PTT are prolonged, d-dimer elevated, but fibrinogen is also high. - No signs of active bleeding now, platelets are normal. - Check cryofibrinogen. (4) Vasculitis Comment: - Her right 3rd finger discoloration and palpable nodule suggests vasculitis, especially cryoglobulinemia. - Will check hepatitis serology, MARY, ANCA, ESR, PCR, cryoglobulins, cryofibrinogen. - It does not have the papulopustular appearance of Osler nodes, but will check blood cultures and if positive, transesophageal echocardiogram. (5) Acute respiratory failure with hypoxia Comment: - Acute on chronic hypoxemic respiratory failure. - She was back to her baseline O2 requirement of 5L continuously, extubated . Thought to be from PNA and volume overload causing pulm congestion. - Completed 7 days of Zosyn. - Continue Dulera and bronchodilators. (6) Calciphylaxis Comment: - S/p skin biopsy on 05/12 with pathology confirmation. - Continue IV sodium thiosulfate (daily on 05/07/ 14, 15, 16, 17, 18; then changed to SuMoWeFr - 05/14, ) - 8 infusions so far. - Continue to monitor for hypotension. (7) Secondary hyperparathyroidism of renal origin Comment: - Phos 4.7, calcium 6.2 (corrected 7.6), 25-vitamin D <7.0, PTH 85. - Phosphorus is normal. - Corrected Calcium is >7.5. - Continue Calcitriol. - Repeat Ca, phos, PTH tomorrow - depending on levels may add Cinacalcet. (8) PAD (peripheral artery disease) Comment: - S/p bare metal stenting and complicated by DVTs. CT Aorta with run off this admission with moderate-severe R common femoral artery stenosis, severe b/l popliteal artery stenosis, near complete occlusion of distal L superficial fem artery stent. - Anticoagulation held at this time for GI bleeding. - Unclear when will be able to resume it, but as Warfarin can worse calciphylaxis, consider lower dose Apixaban due to ESRD and bleeding with possible monitoring of factor Xa level. (9) ESRD on peritoneal dialysis Comment: - Continue peritoneal dialysis. (10) IDDM (insulin dependent diabetes mellitus) Comment: - HgbA1c 8.8% - Hypoglycemia last night asymptomatic (19 on one finger, 60 on another, but 102 on blood draw). - Continue Lispro SS. (11) DVT prophylaxis Comment: - Pharmacological prophylaxis contraindicated in the setting of GI bleed. - Mechanical prophylaxis contraindicated in the setting of tender LE lesions due to calciphylaxis. (12) Full code status Status and Disposition: Inpatient. 70 minutes critical care time.
[2018-05-19] MEDS: Albuterol/Ipratropium NEB.SOL* Albuterol 2.5 MG/Ipratropium 0.5 MG 3 ML INH PRN ×2 (08:46→14:40)
[2018-05-19] MEDS: Mometasone/Formoter 200/5 MDI INH SCH (08:46)
[2018-05-19] MEDS: Mupirocin 2% OINT* TUBE TOPICAL SCH (08:54)
[2018-05-19] MEDS ORDERED: Iodixanol* (CONTRAST) 320 MG/ML 100 ML SDV IV SCH (08:57)
[2018-05-19 10:13] LABS: Hepatitis C Antibody Nonreactive (Nonreactive)
[2018-05-19 10:15] LABS: Hepatitis B Surface Antigen Nonreactive (Nonreactive)
[2018-05-19] MEDS: Lidocaine 2% JELLY* 6 ML JELLY TOPICAL SCH ×2 (10:34→14:20)
--- NOTE | 2018-05-19 15:59 | DS ---
ADDENDUM NOW INCLUDED ON THIS REPORT CC: Dr. Aishwarya Solis; Dr. Marrufo; Dr. Tay, [facility]; Dr. Shea, manager pet, [facility] * TRANSFER/DISCHARGE SUMMARY: DATE OF ADMISSION: 04/29/18 DATE OF TRANSFER: 05/19/18 PRIMARY CARE PROVIDER: Dr. Aishwarya Solis. NEEDLE GRINDER: Dr. Marrufo. VASCULAR SURGEON: Dr. Tay at [facility]. ACCEPTING PHYSICIAN: Dr. Shea, manager pet at [facility]. HOSPITAL COURSE: Ms. Wright is a 37-year-old lady with a complex medical history that includes end-stage renal disease, on peritoneal dialysis; COPD, on 5 L of oxygen at baseline; type 2 diabetes, insulin-dependent; peripheral arterial disease; GERD; coronary artery disease; diabetic gastroparesis; hypertension; hyperlipidemia, who presented to our emergency room on 04/29/18 secondary to leg pain. She had a recent admission to [facility] from 04/18/18 to 04/21 secondary to COPD exacerbation with pneumonia. She returned to the emergency room on 04/29/18 with multiple complaints, but the most prominent one was bilateral leg pain that she described as new to her. The patient was admitted for further evaluation and workup. She had a venous Doppler study that showed no evidence of DVT and an aorta with runoff CTA that showed moderate severe right common femoral artery stenosis, severe bilateral popliteal artery stenosis with a single left and 2 right areas of stenosis, near complete occlusion of the distal left superficial femoral artery stent, and severely stenotic right renal artery. The patient continued to complain of pain and she developed bluish skin discoloration on both thighs. She had skin biopsy performed, which showed calciphylaxis. She was seen in consultation by Nephrology and the recommendation was for sodium thiosulfate infusions. The patient has received 9 infusions so far, the last one on 05/18/18. In the meantime, during the hospital stay, the patient had worsening of her respiratory status with acute on chronic respiratory failure with hypoxia requiring intubation on 05/01/18. The patient was in the intensive care unit and there was concern for healthcare-associated pneumonia. She had progressive improvement of her respiratory status and she was extubated on 05/05/18. At that point in time, the manager pet had reached out to [facility], but at that point it was felt there was no acute need for intervention since she has no severe peripheral vascular disease. The plan at that time was for management , also stabilize from this current medical crisis. The patient has been in and out of the intensive care unit multiple times for different reasons. On 05/14/18, the patient was seen by Palliative Care due to her complex condition, but at this point, she is not on palliative care mindset and declines any conversations about hospice. The patient developed epistaxis and at that point the impression was that secondary to supratherapeutic INR. The patient had been transitioned to apixaban while in the hospital and her epistaxis appeared to have improved. After having her skin biopsy on 05/12/18, the patient had acute mental status changes, she was poorly responsive and that was felt to be secondary to opiate use. This time, she was transferred to ICU and required BiPAP, but was not intubated. The patient was once again transferred to the medical floor and then developed maroon stools prompting transfer to ICU once again. She was seen in consultation by Gastroenterology and the impression was that her GI bleed could be secondary to ischemic colitis as the patient has had documented hypotension on her prior ICU stays. There was concern for a DIC as she was also having nasal and vaginal bleed before. She received Kcentra and the bleeding stopped. GI discussed with the patient the possibility of performing a colonoscopy, but he felt that with her pulmonary status, sedation would be difficult to attain without intubation. He offered a nonsedated to low sedated flex sig, but the patient declined and at that point, the plan was for conservative management and observation. She has been on a Protonix drip given her critical illness in the ICU and there was possibility of an upper GI bleed too, but the plan is to transition her to a PPI b.i.d. in the next few days. Her lowest hemoglobin was 6.3 from a baseline of 9. She received a total of 4 PRBCs during the hospital stay plus the Kcentra as described above. Due to her diabetes, the patient is almost blind and on 05/18/18, her family member noted that she had right third finger with a purple tip. The patient states that she has had several days of right second and third finger pain, but was not aware of the discoloration. Her pulses are not palpable, but they are identifiable with Doppler, but her capillary refill is poor. A right upper extremity arterial duplex revealed occlusion of the ulnar artery, recommended a CT angiogram of the right upper extremity for further evaluation. This study showed segmental stenosis of the right brachial artery with suggestion of distal occlusion. No definitive luminal opacification evident at the radial or ulnar arteries of the forearm with severe Sanders calcification limiting assessment. The case was discussed with Radiology, who recommended an angiogram that we cannot perform in our facility followed by Vascular Surgery evaluation, that service is also not available in our hospital, reason why we reached out to [facility] once again. The case was discussed with vascular surgeon, Dr. Tay and with the manager pet on-call, Dr. Shea and he accepted the patient in transfer. PHYSICAL EXAMINATION: Vital Signs: Temperature 97.4, heart rate is 107, respiratory rate is 10, oxygen saturation is 92% on 6 L, blood pressure is 100/ 57. General: The patient is a pleasant lady, lying in bed, appears much older than stated age. HEENT: Pupils are equal. Moist mucous membranes. CVS: Normal S1, S2. Regular rate and rhythm. Chest: Breath sounds present bilaterally, diminished in bases, but no added sounds. Abdomen is obese, soft, nontender. Bowel sounds are present. There is a peritoneal dialysis catheter on the right. Extremities: The patient has a purple discoloration rash extending from her thighs up to inguinal area and around to her buttock area with skin desquamation. The patient is status post right TMA. No palpable pulses, but pulses are present with Doppler, tibial posterior and popliteal. Her right hand, the pulses are not palpable, but they are identifiable with Doppler. She has purple discoloration on the right third finger distal phalanx with pain on palpation. Neuro: She is alert and oriented x3. Able to move all 4 extremities. DISCHARGE DIAGNOSES: 1. Calciphylaxis with significant cutaneous lesions, especially on the lower extremities. 2. Acute on chronic hypoxemic respiratory failure. 3. Probable hospital-acquired pneumonia requiring intubation. 4. Acute encephalopathy. 5. Sepsis secondary to healthcare-associated pneumonia. 6. Anemia secondary to iron deficiency, renal disease, chronic disease and blood loss. 7. Supratherapeutic INR. 8. Troponin elevation secondary to demand ischemia. 9. Gastrointestinal bleed, likely secondary to ischemic colitis. 10. Severe peripheral vascular disease with right ulnar and radial occlusions. 11. End-stage renal disease, on peritoneal dialysis. 12. Coronary artery disease. 13. Severe peripheral vascular disease, status post stent to the femoral artery. 14. History of heparin-induced thrombocytopenia, on prior therapy with warfarin and then transitioned to apixaban and now off anticoagulation due to her gastrointestinal bleed. 15. Insulin-dependent diabetes. 16. Chronic obstructive pulmonary disease, on home O2. 17. Hypothyroidism. 18. Secondary hyperparathyroidism secondary to renal disease. 19. Leukocytosis. 20. Hypokalemia. 21. Hypomagnesemia. 22. Hyperphosphatemia. CURRENT MEDICATION LIST: 1. Acetaminophen 650 mg p.o. q.6 hours p.r.n. pain or fever. 2. Maalox Plus 30 mL p.o. q.6 hours p.r.n. dyspepsia. 3. Albuterol 2.5 mg inhaled q.4 hours p.r.n. shortness of breath. 4. Dextrose 25 g IV push for fingersticks less than 60. 5. Dronabinol 5 mg p.o. t.i.d. 6. Duloxetine 30 mg p.o. daily. 7. Epoetin 4000 units subcutaneously on Mondays, Wednesdays and Fridays. 8. Fentanyl patch 50 mcg topical q.72 hours. 9. Hydromorphone 2 mg IV q.4 hours p.r.n. pain. 10. Lispro sliding scale. 11. Lidocaine 2% jelly topical to lower extremity lesions. 12. Lorazepam 1 mg IV push q.6 hours p.r.n. anxiety. 13. Methadone 10 mg p.o. q.12 hours. 14. Midodrine 10 mg p.o. at 1000, 1400, 1800 and 2200. 15. Dulera 200/5 two puffs inhaled b.i.d. 16. Mupirocin 2% ointment topical daily to PD catheter exit site. 17. Ondansetron 8 mg IV q.6 hours p.r.n. nausea, vomiting. 18. Protonix drip. 19. Compazine 5 mg IV q.6 hours p.r.n. nausea. 20. Sodium bicarb 2600 mg p.o. at 1000, 1400, 1800 and 2200. 21. Sodium thiosulfate 25 g IV on Sundays, Mondays, Wednesdays and Fridays at 2000. DIET: Clear liquid diet. ACTIVITIES: As tolerated. DISPOSITION: To [facility] for higher level of care including angiogram and Vascular Surgery evaluation. CONDITION AT THE TIME OF TRANSFER: Guarded. STATUS WHILE IN THE HOSPITAL: Inpatient. Please keep in mind that this is a summarized version of this patient's very complex and prolonged hospital stay. If you need more information, please feel free to call me at [phone] or please obtain full medical records. TIME SPENT: Approximately 65 minutes was spent to complete this discharge. ADDENDUM: The vascular surgeon at [facility] had recommended heparin drip for the patient, but as per documentation in our record, the patient has a history of HEPARIN allergy that according to our manager pet's documentation was HIT. I discussed the case with Nephrology, and fondaparinux is not dialyzable; so Dr. Marrufo felt that it would not be safe on this patient. After discussion with Nephrology and pharmacy, the patient could be started on argatroban drip, but at this time she already has a bed at [facility] and she will be transferred momentarily. Since she had a recent GI bleed and I will not be able to monitor her closely here, the plan at this time is to transfer her to [facility] and let the vascular surgeon decide what will be the best management regarding his therapeutic approach. The patient has had symptoms for a couple of days already and she has pulses identified on Doppler, so I will let the vascular surgeon decide how he wants to proceed with anticoagulation. [id number]/CPS #: [id number] [place]- [id number]/CPS #: [id number] VIRI
[2018-05-19] MEDS ORDERED: Pantoprazole IV* 40 MG IV SCH (16:00)
--- NOTE | 2018-05-19 16:15 | PN ---
PROGRESS NOTE: DATE OF VISIT: 05/19/18 SERVICE: [facility] Nephrology. SUBJECTIVE: The patient was seen and examined at bedside. The patient reports feeling very tired. Reports that she does not feel significantly better than last week; however, reports that the pain in her extremities is little bit better. Vitals and labs have been reviewed. PHYSICAL EXAMINATION: HEENT: NC/AT. Heart: S1, S2 present. Tachycardic at the time of exam. Lungs: Decreased breath sounds bilaterally. Clear to auscultation. Abdomen: Soft. Extremities noted to have edema with calciphylaxis lesions on bilateral thighs. ASSESSMENT AND PLAN: A 37-year-old female with complicated medical history including end-stage renal disease, on PD; peripheral arterial disease, status post femoral stents, on warfarin; chronic obstructive pulmonary disease; chronic respiratory failure; active smoking; insulin-dependent diabetes; recent admission in March for pneumonia, came into the hospital with bilateral thigh pain with diagnosis of calciphylaxis confirmed on biopsy. Hospital course complicated by respiratory failure secondary to pneumonia requiring intubation, extubated on 05/05/18, and gastrointestinal bleed on 05/16/18 which is currently improving. 1. Gastrointestinal bleed. Plan per primary team. The patient is on a PPI drip, clear liquids as tolerated. Has been seen by GI. 2. Calciphylaxis. The patient is on sodium thiosulfate. The patient noted to be hypotensive, which is multifactorial; however, as sodium thiosulfate can cause hypotension as well, the patient is on sodium thiosulfate 3 times a week currently. The patient being on Coumadin would be a risk factor for calciphylaxis, was transitioned to Eliquis, currently on hold in the setting of gastrointestinal bleed. 3. End-stage renal disease, on peritoneal dialysis. Discussed with PD nurse on current PD orders. The patient is using the cycler at night. PD treatment adjusted every day based on the patient's labs and clinical condition and blood pressure parameters. 4. Recommend holding calcitriol. We will follow with primary team. [id number]/[facility] #: [id number] VIRI
[2018-05-19 16:16] VITALS: BP 132/75
--- NOTE | 2018-05-19 21:34 | DS ---
DISCHARGE SUMMARY: ADDENDUM: The vascular surgeon at [facility] had recommended heparin drip for the patient, but as per documentation in our record, the patient has a history of HEPARIN allergy that according to our service order taker's documentation was HIT. I discussed the case with Nephrology, and fondaparinux is not dialyzable; so Dr. Marrufo felt that it would not be safe on this patient. After discussion with Nephrology and pharmacy, the patient could be started on argatroban drip, but at this time she already has a bed at [facility] and she will be transferred momentarily. Since she had a recent GI bleed and I will not be able to monitor her closely here, the plan at this time is to transfer her to [facility] and let the vascular surgeon decide what will be the best management regarding his therapeutic approach. The patient has had symptoms for a couple of days already and she has pulses identified on Doppler, so I will let the vascular surgeon decide how he wants to proceed with anticoagulation. [id number]/CPS #: [id number] VIRI
== END 2018-05-19 16:57 | disposition short-term general hospital (02) | DRG 951 ==
LOC: ED 18:07 → MEDTELE 21:01 → OBSVTOIN 04-30 11:00 → INTOOBSV 05-01 11:00 → ICU 05-02 04:32 → MEDTELE 05-06 09:49 → ICU 05-11 03:56 → MEDTELE 05-12 15:13 → ICU 05-13 07:01 → MEDTELE 05-16 17:27 → ICU 05-16 20:20
PROVIDERS: ADMIT Pediatrics; ATTEND Internal Medicine
PROC: 3E1M39Z Irrigation of Peritoneal Cavity using Dialysate, Percutaneous Approach (ICD-10-PCS; principal; 2018-05-01)
PROC: 0BH17EZ Insertion of Endotracheal Airway into Trachea, Via Natural or Artificial Opening (ICD-10-PCS; 2018-05-02)
PROC: 5A1945Z Respiratory Ventilation, 24-96 Consecutive Hours (ICD-10-PCS; 2018-05-02)
PROC: 03HY32Z Insertion of Monitoring Device into Upper Artery, Percutaneous Approach (ICD-10-PCS; 2018-05-02)
PROC: 05HY33Z Insertion of Infusion Device into Upper Vein, Percutaneous Approach (ICD-10-PCS; 2018-05-07)
PROC: 30233N1 Transfusion of Nonautologous Red Blood Cells into Peripheral Vein, Percutaneous Approach (ICD-10-PCS; 2018-05-11)
PROC: 30233L1 Transfusion of Nonautologous Fresh Plasma into Peripheral Vein, Percutaneous Approach (ICD-10-PCS; 2018-05-11)
PROC: 0JBM0ZX Excision of Left Upper Leg Subcutaneous Tissue and Fascia, Open Approach, Diagnostic (ICD-10-PCS; 2018-05-12)
PROC: 5A09457 Assistance with Respiratory Ventilation, 24-96 Consecutive Hours, Continuous Positive Airway Pressure (ICD-10-PCS; 2018-05-13)
DX: J18.9 Pneumonia, unspecified organism (principal); J96.21 Acute and chronic respiratory failure with hypoxia; J96.22 Acute and chronic respiratory failure with hypercapnia; I50.31 Acute diastolic (congestive) heart failure; A41.9 Sepsis, unspecified organism; N18.6 End stage renal disease; Z99.11 Dependence on respirator [ventilator] status; I13.2 Hypertensive heart and chronic kidney disease with heart failure and with stage 5 chronic kidney disease, or end stage renal disease; G93.40 Encephalopathy, unspecified; N25.81 Secondary hyperparathyroidism of renal origin; J44.0 Chronic obstructive pulmonary disease with (acute) lower respiratory infection; J44.1 Chronic obstructive pulmonary disease with (acute) exacerbation; K55.9 Vascular disorder of intestine, unspecified; E87.2 Acidosis; K92.2 Gastrointestinal hemorrhage, unspecified; R04.2 Hemoptysis; D62 Acute posthemorrhagic anemia; I24.8 Other forms of acute ischemic heart disease; D68.9 Coagulation defect, unspecified; J98.11 Atelectasis; K92.1 Melena; L89.159 Pressure ulcer of sacral region, unspecified stage; E11.649 Type 2 diabetes mellitus with hypoglycemia without coma; E11.40 Type 2 diabetes mellitus with diabetic neuropathy, unspecified; E11.51 Type 2 diabetes mellitus with diabetic peripheral angiopathy without gangrene; K21.9 Gastro-esophageal reflux disease without esophagitis; I25.10 Atherosclerotic heart disease of native coronary artery without angina pectoris; F41.9 Anxiety disorder, unspecified; F32.9 Major depressive disorder, single episode, unspecified; E78.5 Hyperlipidemia, unspecified; K31.84 Gastroparesis; E11.22 Type 2 diabetes mellitus with diabetic chronic kidney disease; E66.9 Obesity, unspecified; I08.2 Rheumatic disorders of both aortic and tricuspid valves; I27.20 Pulmonary hypertension, unspecified; I70.202 Unspecified atherosclerosis of native arteries of extremities, left leg; I70.291 Other atherosclerosis of native arteries of extremities, right leg; E87.6 Hypokalemia; E83.42 Hypomagnesemia; E11.42 Type 2 diabetes mellitus with diabetic polyneuropathy; Z99.2 Dependence on renal dialysis; E87.5 Hyperkalemia; E03.9 Hypothyroidism, unspecified; Y95 Nosocomial condition; E83.59 Other disorders of calcium metabolism; Z99.81 Dependence on supplemental oxygen; I95.9 Hypotension, unspecified; I70.8 Atherosclerosis of other arteries; D50.9 Iron deficiency anemia, unspecified; D63.1 Anemia in chronic kidney disease; R74.8 Abnormal levels of other serum enzymes; F17.210 Nicotine dependence, cigarettes, uncomplicated; E66.3 Overweight; D75.82 Heparin induced thrombocytopenia (HIT); L98.9 Disorder of the skin and subcutaneous tissue, unspecified; G89.29 Other chronic pain; E83.39 Other disorders of phosphorus metabolism; Z88.1 Allergy status to other antibiotic agents; Z88.2 Allergy status to sulfonamides; Z88.8 Allergy status to other drugs, medicaments and biological substances; Z91.048 Other nonmedicinal substance allergy status; Z79.1 Long term (current) use of non-steroidal anti-inflammatories (NSAID); Z79.82 Long term (current) use of aspirin; Z79.4 Long term (current) use of insulin; Z79.891 Long term (current) use of opiate analgesic; Z79.51 Long term (current) use of inhaled steroids; Z79.899 Other long term (current) drug therapy; Z79.01 Long term (current) use of anticoagulants; Z68.32 Body mass index [BMI] 32.0-32.9, adult; Z83.3 Family history of diabetes mellitus; Z82.49 Family history of ischemic heart disease and other diseases of the circulatory system; Z80.1 Family history of malignant neoplasm of trachea, bronchus and lung; Z80.41 Family history of malignant neoplasm of ovary
CPT/HCPCS: 36415; 36600; 71045; 72131; 75635; 80048; 80053; 80074; 80202; 81003; 81015; 82040; 82306; 82550; 82585; 82595; 82728; 82803; 82947; 83036; 83516; 83540; 83550; 83605; 83615; 83735; 83880; 83970; 84100; 84132; 84311; 84484; 85014; 85018; 85025; 85027; 85045; 85379; 85384; 85610; 85652; 85730; 86038; 86078; 86140; 86141; 86850; 86900; 86901; 86922; 86927; 87040; 87077; 87086; 87106; 87186; 87493; 87641; 88305; 89051; 90945; 93005; 93306; 93970; 94002; 94003; 94640; 94660; 94667; 99283; A9270-GY; C9132; G0257; J0330; J0780; J1170; J2060; J2250; J2270; J2310; J2405; J2543; J2704; J3010; J3370; J3475; J3480; J3490; J7060; P9016; P9017; P9040; Q5106; Q9967

== ENCOUNTER 2018-05-20 19:45 | Inpatient (IN) | payer OTHER ==
--- OUTSIDE RECORDS SUMMARY | 2018-05-20 20:06 | XMS REPORT | Continuity of Care Document ---
:1980 External Reference #:[id number] Author Name Estelle Wall Care Team Providers Name Role Phone Aishwarya Solis MD Primary Care Physician Unavailable Payers Date Identification Numbers Payment Provider Subscriber Effective: 2013 Policy Number: [id number] [place] [employer] Group Number: [id number] [address] PayID: [id number] [place] [address] Expires: 2017 Policy Number: [id number] Medicaid Misa Perry Group Name: 1 1 [address] PayID: [id number] [place] [address] Advance Directives Description No Information Available Problems [...] MD Active Family History Date Family Member(s) Observation Comments General Crohn's Disease General Diabetes General Heart Disease Father Coronary Artery Disease (CAD) Mother Diabetes Mother Crohn's Disease Social History Type Date Description Comments Sex Unknown Marital Status Single Lives With Male Partner Occupation Disabled ETOH Use Denies alcohol use Recreational Drug Use Denies Drug Use Tobacco Use Start: Unknown Patient is a current smoker, smokes every day Tobacco Use Start: Unknown Heavy tobacco smoker (more than 10 cigarettes/day) Smoking Status Reviewed: 03/07/18 Heavy tobacco smoker (more than 10 cigarettes/day) Exercise Type/Frequency Does not exercise Allergies, Adverse Reactions, Alerts Date Description Reaction Status Severity Comments 08/04/2014 Morphine does not work Active 08/04/2014 Codeine Nausea and Vomiting Active 08/04/2014 Augmentin Urticaria Active 03/29/2015 Tape Active 04/12/2015 Bactrim Active 06/28/2016 Heparin Active excessive clotting 08/08/2016 Flagyl Active stomach upset,vomiting, and abd pain. Medications Medication Date Status Form Strength Qnty SIG Indications Ordering Provider Ciprofloxacin 03/07/19 Active Tablets 500mg 14tab 1 Tab PO Petty HCL 19 s Q 12H B. EcVIOLET teresa Gabapentin 03/04/19 Active Capsules 300mg 1 by Unknown 17 mouth three times a day Albuterol 03/04/19 Active Nebulizer (2.5mg/3M 1 vial Unknown Sulfate 17 L) 0.083% via nebulize r 4 times daily as needed Novolog Mix 08/05/19 Active Supn (70-30)10 1unit sliding Derek Izquierdo 70/30 Prefilled 15 0Unit/ML s scale Cristopher Simental M.D. Omeprazole Active Capsules 20mg [address] mouth every day Lantus Solostar Active Solution 100Unit/M 80 u hs Unknown 00 Pen-Inject L Calcitriol Active Capsules 0.25mcg 1 by Unknown 00 mouth every day Losartan Active Tablets 100mg 1 by Unknown Potassium 00 mouth every day Aspir-Low Active Tablets DR 81mg 1 by Unknown 00 mouth every day Coumadin Active Tablets 2.5 4 po Unknown 00 daily 2 days a week and 3 tabs po on thee other days Methadone HCL Active Tablets 5mg Take One Unknown 00 To Two Tablets By Mouth Every 6 Hours as Needed For Pain Max Promethazine HCL Active Tablets 25mg 1 by Unknown 00 mouth every 8 hours as needed nausea with headache Sertraline HCL Active Tablets 25mg 1 by Unknown 00 mouth every day Bethanechol Active Tablets 25mg take 3 Unknown Chloride 00 tablets by mouth 4 times a day Probiotic Active Capsules 1 by Unknown 00 mouth every day Levofloxacin 11/10/19 Hx Tablets 500mg 14tab 1 by I73.9 Sebastien 17 - s mouth Jose, 12/19/19 every M.D. 17 day Hydromorphone 09/22/19 Hx Tablets 2mg 60tab take Sebastien HCL 17 - s one-two Jose, 09/26/19 every M.D. 17 four hours as needed for breaktho ugh pain Dilaudid 08/09/19 Hx Tablets 2mg 30tab 1 tabs M86.171 Sebastien 17 - s by mouth Jose, 08/29/19 every 6 M.D. 17 hours as needed pain Levofloxacin 07/19/19 Hx Tablets 500mg 11tab 1 tab by Sebastien 17 - s mouth q Jose, 08/29/19 48 hrs M.D. 17 Metronidazole 07/19/19 Hx Tablets 500mg 63tab 1 tab po Sebastien 17 - s tid x21 Jose, 08/08/19 days M.D. 17 Hydromorphone 07/19/19 Hx Tablets 2mg 60tab 1 tab po Sebastien HCL 17 - s q6h prn Jose, 08/08/19 pain M.D. 17 Cyclobenzaprine 03/04/19 Hx Tablets 10mg one by Unknown HCL 17 - mouth Unknown three times a day as needed spasm Zofran 03/04/19 Hx Tablets 4mg 1 tab by Unknown 17 - mouth Unknown every 6 hours as needed nausea Fish Oil 03/04/19 Hx Capsules 1000mg 1 by Unknown Concentrate 17 - mouth 12/19/19 twice a 17 day Percocet 12/12/19 Hx Tablets 5-325mg 15tab 1-2 tabs Freda Kerr 16 - s by mouth MD Osmar 08/08/19 every 4 17 hours as needed for pain Cephalexin 11/28/19 Hx Tablets 250mg 20tab 1 Tablet L03.313 Tommie Lomas 16 - s Every 6 MD Brad, Unknown HRS For FACS 5 Days Oxycodone HCL 06/13/19 Hx Tablets 5mg 30tab 1 tab by Gaye 16 - s mouth Gregory, 06/30/19 every BAILING MACHINE OPERATOR 16 4-6hrs as needed pain Bactrim DS 06/13/19 Hx Tablets 800-160mg 30tab 1 by Sebastien 16 - s mouth Jose, 07/21/19 twice a M.D. 16 day Bactrim DS 03/29/19 Hx Tablets 800-160mg 40tab 1 by E10.621 Sebastien 16 - s mouth Jose, 04/12/19 twice a M.D. 16 day Sertraline HCL 08/05/19 Hx Tablets 50mg 90tab 1 /2 Derek Izquierdo 15 - s by mouth Feliciaack, Unknown every M.D. day Valacyclovir HCL 05/14/19 Hx Tablets 500mg 90tab Take 1 Leonard 15 - s Tablet VIOLET Valdez 08/05/19 Daily 15 Gabapentin Hx Capsules 300mg take 1 Unknown 00 - capsule 08/05/19 by mouth 15 twice a day Mupirocin Hx Ointment 2% Unknown - 08/05/19 15 Promethazine HCL Hx Syrup 6.25mg/5M prn Unknown 00 - L Unknown Amlodipine Hx Tablets 10mg 1 by Unknown Besylate 00 - mouth Unknown every day Bisoprolol Hx Tablets 10mg 1 by Unknown Fumarate 00 - mouth Unknown every day Torsemide Hx Tablets 20mg 1 by Unknown 00 - mouth 12/19/19 bid 17 Atorvastatin Hx Tablets 80mg 1 by Unknown Calcium 00 - mouth Unknown every day Ciprofloxacin Hx Tablets 500mg 1 by Unknown HCL 00 - mouth Unknown twice a day Magnesium Hx Capsules 400mg 1 by Unknown 00 - mouth Unknown bid Clindamycin HCL Hx Capsules Unknown 00 - Unknown Eliquis Hx Tablets 5mg 1 by Unknown 00 - mouth 08/29/19 twice a 17 day Bactrim DS Hx Tablets 800-160mg 1 by Unknown 00 - mouth 08/29/19 twice a 17 day Chantix Hx Tablets 0.5mg as Unknown 00 - directed 12/19/19 17 Doxycycline Hx Tablets 100mg Take One Unknown Hyclate 00 - Tablet Unknown By Mouth Twice A Day Immunizations Description No Information Available Vital Signs Date Vital Result Comment 03/07/2018 2:14pm Height 65 inches 5'5" Weight 210.00 lb Heart Rate 76 /min BP Systolic 140 mmHg BP Systolic Sitting 82 mmHg Respiratory Rate 18 /min Body Temperature 99.0 F BMI (Body Mass Index) 34.9 kg/m2 12/19/2016 2:58pm Heart Rate 96 /min BP [...] Rate 116 /min has appt to see gyn physician soon BP Systolic 102 mmHg BP Diastolic [...] Date Facility Test Result H/L Range Note Laboratory test 04/14/2018 [facility] Lactic Acid 1.7 mmol/L N 0.5-2.0 [address] [place] [address] [phone] CBC Auto Diff 09/18/2016 [facility] White Blood 12.0 10^3/uL High 3.5-10.[address] [place] [address] [phone] Red Blood Count 4.44 10^6/uL N 4.0-5.4 [...] Blood Cells % 0 N Inr/Protime 09/18/2016 [facility] Inr 0.90 N 0.89-1.[address] [place] [address] [phone] Laboratory test 09/18/2016 [facility] Partial 30.6 N 26.0- 36.[address] [place] [address] PTT [phone] Comp Metabolic 09/18/2016 [facility] Sodium 128 mmol/L Low 133 -[address] [place] [address] [phone] Potassium 5.1 mmol/L High 3.5-5.0 Chloride 97 [...] 10.5 N >60 Egfr 13.5 N >60 2 Laboratory test 09/18/2016 [facility] C Reactive 6.19 mg/L High < 5.00 [address] [place] [address] [phone] Lactic Acid 1.5 mmol/L N 0.5-2.0 4 Basic Metabolic Panel 12/07/2015 [facility] Sodium 136 mmol/L N 133-[address] [place], [place] [id number] [phone] Potassium 4.7 mmol/L N 3.5-5.0 Chloride 105 mmol/L N 101-111 Co2 Carbon Dioxide 25 mmol/L N 22-32 Anion Gap 6 mmol/L N 2-11 Glucose 231 mg/dL High 70-100 Blood Urea Nitrogen 36 mg/dL High 6-24 Creatinine 3.87 mg/dL High 0.51-0.95 BUN/Creatinine Ratio 9.3 N 8-20 Calcium 9.0 mg/dL N 8.6-10.3 Egfr Non- 13.2 N >60 Egfr 16.9 N >60 5 Laboratory test 12/07/2015 [facility] Point of Care 245 mg/dL High 74-106 [address] [place] [address] [phone] Laboratory test 12/07/2015 [facility] Point of Care 178 mg/dL High 74-106 [address] [place] [address] [phone] Laboratory test 12/07/2015 [facility] Point of Care 190 mg/dL High 74-106 [address] Glucose [place], [place] [address] [phone] Laboratory test 11/30/2015 [facility] Point of Care 220 mg/dL High 74-106 [address] [place] [address] [phone] Laboratory test 11/30/2015 [facility] Potassium 5.9 High 3.5- 5.0 10, [address] mmol/L [place], [place] [address] [phone] HCG 0.88 mIU/mL N 12 Wound 06/13/2015 [facility] Wound/Misc SEE RESULT 13 Culture/Sensi [address] [place] [address] Stain [phone] Laboratory test 06/13/2015 [facility] Anaerobic SEE RESULT [address] [place] [address] [phone] Laboratory test 06/13/2015 [facility] Surgical SEE RESULT [address] [place] [address] [phone] Laboratory test 06/13/2015 [facility] Point of Care 280 mg/dL High 74-1 [address] Glucose 06 [place] [address] [phone] Laboratory test 06/13/2015 [facility] HCG 0.66 N [address] mIU/[place] [address] [phone] Laboratory test 06/13/2015 [facility] Point of Care 242 mg/dL High 74-1 [address] Glucose 06 [place] [address] [phone] 1 [facility] Severe Sepsis and Septic Shock Management Bundle Measure requires all lactic acids initially measuring >2.0 mmol/L be repeated. 2 Because ethnic data is not always readily [...] 15-29 5 Kidney failure <15 (or dialysis) 3 Acute inflammation: >10.00 4 [facility] Severe Sepsis and Septic Shock Management Bundle Measure requires all lactic acids initially measuring >2.0 mmol/L be repeated. 5 Because ethnic data is not always readily [...] 15-29 5 Kidney failure <15 (or dialysis) 6 Campus Executive Director: [id number] AMY MCGUIRE 7 Campus Executive Director: [id number] SKYLA LYNN 8 Campus Executive Director: [id number] JAROD ANTONIO 9 Campus Executive Director: [id number] Danyel Huizar 10 Comment: on arrival preop 11 Comment: on arrival preop 12 <5.0 Negative 5.0 - 25.0 Indeterminate (Repeat testing recommended after 72 hours) >25.0 Positive Perimenopausal women can display HCG levels of up to 20 mIU/mL 13 SEE RESULT BELOW Name: MARGAUX PERRY Theodora : [address]: Sebastien Garcia MD Acct: [id number] Unit: [id number] AGE: 34 Location: OR Re06/13/15 SEX: F Status: REG [facility] SPEC: [id number] KARL: 06/13/15-[address] [facility] DR: Sebastien Garcia MD REQ: [id number] RECD: 06/13/15-0 STATUS: RES CONSTANTINO DR: Indira Staff,Doctor Luis Marrufo MD _ SOURCE: WOUND SPDESC: ORDERED: Anaerobic Cult, Culture Stain Procedure Result Reported Site Anaerobic Culture PENDING Wound/Misc Gram Stain Final 06/13/15- 1350 ML No Neutrophils Observed No Organisms Seen Wound/Misc Culture PENDING * ML - MAIN LAB ([facility]) . END OF REPORT * ML=Testing performed at Main Lab DEPARTMENT OF PATHOLOGY, [address] [place] [address] Byron Morel M.D. Director [facility] # [id number] 14 SEE RESULT BELOW Name: MARGAUX PERRY : [address]: Sebastien Garcia MD Acct: [id number] Unit: [id number] AGE: 34 Location: OR Re06/13/15 SEX: F Status: REG SDC SPEC: [id number] KARL: 06/13/15-[address]: Sebastien Garcia MD REQ: [id number] RECD: 06/13/15 STATUS: CARRILLO MEEKS DR: Indira Staff,Doctor Luis Marrufo MD _ SOURCE: WOUND SPDESC: ORDERED: Anaerobic Cult, Culture Stain Procedure Result Reported Site Anaerobic Culture Final 06/17/15- 923 ML No Growth Day 4 Wound/Misc Gram Stain Final 06/13/15- 1350 ML No Neutrophils Observed No Organisms Seen Wound/Misc Culture Final 06/17/15- 24 ML No Growth Day 4 * ML - MAIN LAB ([facility]) . END OF REPORT * ML=Testing performed at Main Lab DEPARTMENT OF PATHOLOGY, [address] [place] [address] Byron Morel M.D. Director [facility] # [id number] 15 SEE RESULT BELOW Name: MARGAUX PERRY : [address]: Sebastien Garcia MD Acct: [id number] Unit: [id number] AGE: 34 Location: OR Re06/13/15 SEX: F Status: REG [facility] SPEC: [id number] KARL: 06/13/15-[address] [facility] [address]: Sebastien Garcia MD REQ: [id number] RECD: 06/13/15-1155 STATUS: SOUT _ ORDERED: Decal, LEVEL IV [...] displays glistening smooth irving-white articular surface and irving-pink soft tissue. The skin margin appears viable. [...] partially surfaced by glistening smooth articular surface. Examiner Of Currency sections are submitted in cassettes A and B to include lesion and inked skin margin in cassette A and bone following decalcification in cassette B. MICROSCOPIC DESCRIPTION Signed (signature on file) Byron Morel MD 1152 END OF REPORT * ML=Testing performed at Main Lab DEPARTMENT OF PATHOLOGY, [address] [place] [address] Byron Morel M.D. Director [facility] # [id number] 16 Campus Executive Director: [id number] Huizar 17 <5.0 Negative 5.0 - 25.0 Indeterminate (Repeat testing recommended after 72 hours) >25.0 Positive Perimenopausal women can display HCG levels of up to 20 mIU/mL 18 Campus Executive Director: [id number] MARIO ALBERTO LOAN Procedures Date Code Description Status 04/30/2018 94112 ECHO Transthorasic Realtime 2D W Doppler & Color Flow Hosp Completed 03/05/2018 43425 EKG, Interpretation Only Completed 03/05/2018 71281 I&D Of Abscess Complicated Completed 06/24/2017 58211 ECHO Transthorasic Realtime 2D W Doppler & Color Flow Hosp Completed 02/01/2017 95572 EKG, Interpretation Only Completed 07/25/2016 51382 Walking Cast Completed 07/16/2016 75566 Amputation Foot Transmetatarsal Completed 07/16/2016 67753 Amputation Foot Transmetatarsal Completed 07/15/2016 05974 EKG, Interpretation Only Completed 05/18/2016 24946 EKG, Interpretation Only Completed 04/24/2016 61180 Nerve Conduction 05-06 Studies Completed 02/08/2016 14252 ECHO Transthorasic Realtime 2D W Doppler & Color Flow Hosp Completed 01/05/2016 59441 Removal Of Tunneled Central Venous Cath W/O Subcutaneous Completed Port/WELDER FITTER ARC 12/07/2015 82172 Lap W/Insert Intraperitoneal Cannula Or Catheter Permanent Completed 11/13/2015 61013 EKG, Interpretation Only Completed 09/12/2015 58845 Treadmill Interp/Report Only Completed 09/12/2015 93430 Stress Test Supervsn W/Out I/R Completed 09/02/2015 04411 EKG, Interpretation Only Completed 06/13/2015 81682 Amputation Toe MP JT Completed 06/13/2015 28759 Amputation Toe MP JT Completed 05/16/2015 01734 EKG, Interpretation Only Completed 03/23/2014 56278 EKG, Interpretation Only Completed Encounters Type Date Location Provider Dx Diagnosis Office Visit 04/21/2018 [facility] Jeremi Smith J96.01 Acute respiratory 9:06a gianna Gutierrez MD failure with Hospitalists hypoxia J18.9 Pneumonia, unspecified organism 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 N18.6 End stage renal disease Z99.2 Dependence on renal dialysis D63.1 Anemia in chronic kidney disease Office Visit 04/20/2018 [facility] Smith J44.0 Chronic 9:05a gianna Gutierrez MD obstructive Hospitalists pulmon disease w acute lower resp infct J18.9 Pneumonia, unspecified organism J44.1 Chronic obstructive pulmonary disease w (acute) exacerbation 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 N18.6 End stage renal disease Z99.2 Dependence on renal dialysis D63.1 Anemia in chronic kidney disease Office Visit 04/19/2018 9:05a [facility] Amna J96.01 Acute respiratory Assoc,pc Anders, DO failure with Hospitalists hypoxia J18.9 Pneumonia, unspecified organism E11.42 Type 2 diabetes mellitus with diabetic polyneuropathy D63.1 Anemia in chronic kidney disease G89.29 Other chronic pain R79.1 Abnormal coagulation profile N18.6 End stage renal disease Z99.2 Dependence on renal dialysis Office Visit 04/18/2018 9:04a [facility] Quinton J44.0 Chronic Assoc,gianna Mcdowell M.D. obstructive Hospitalists pulmon disease w acute lower resp infct G89.29 Other chronic pain E11.65 Type 2 diabetes mellitus with hyperglycemia N18.6 End stage renal disease Z99.2 Dependence on renal dialysis F17.200 Nicotine dependence, unspecified, uncomplicated Office Visit 04/17/2018 9:04a [facility] Jori Niño J96.01 Acute respiratory M.D. failure with hypoxia R41.82 Altered mental status, unspecified Z99.2 Dependence on renal dialysis N18.6 End stage renal disease Office Visit 04/16/2018 9:03a [facility] Wilfrid J44.1 Chronic Assoc,pc GIOVANNI Muhammad obstructive Hospitalists pulmonary disease w (acute) exacerbation I95.9 Hypotension, unspecified M54.5 Low back pain Office Visit 04/15/2018 8:44a [facility] Jaylene Calvillo NP R53.1 Weakness Assoc,pc Hospitalists G89.29 Other chronic pain N18.6 End stage renal disease Z99.2 Dependence on renal dialysis Office Visit 04/14/2018 8:43a [facility] Inés Harris R53.1 Weakness Assoc,gianna Rivas NP Hospitalists J96.11 Chronic respiratory failure with hypoxia J44.9 Chronic obstructive pulmonary disease, unspecified N18.6 End stage renal disease Z99.2 Dependence on renal dialysis G89.29 Other chronic pain Office Visit 03/30/2018 9:22a [facility] Hortencia Jimenez, R07.9 Chest pain , Assoc,pc N.P. 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 Z99.2 Dependence on renal dialysis Office Visit 03/25/2018 [facility] Elena A04.72 Enterocolitis d/t 9:35a Assoc,pc Root, DO Clostridium Hospitalists difficile, not spcf as recur J18.9 Pneumonia, unspecified organism J44.1 Chronic obstructive pulmonary disease w (acute) exacerbation N18.6 End stage renal disease Z99.2 Dependence on renal dialysis J96.11 Chronic respiratory failure with hypoxia E11.22 Type 2 diabetes mellitus w diabetic chronic kidney disease Z79.4 senior care (current) use of insulin Office Visit 03/24/2018 9:35a [facility] J18.9 Pneumonia, Assoc,[facility] Marycruz, unspecified Hospitalists 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 MACHINE 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 J96.21 Acute and chronic respiratory failure with hypoxia E11.649 Type 2 diabetes mellitus with hypoglycemia without coma E11.22 Type 2 diabetes mellitus w diabetic chronic kidney disease N18.6 End stage renal disease A04.72 Enterocolitis d/t Clostridium difficile, not spcf as recur I73.9 Peripheral vascular disease, unspecified I12.0 Hyp chr kidney disease w stage 5 chr kidney disease or Esrd Office Visit 03/23/2018 9:35a [facility] J18.9 Pneumonia, Assoc,pc [facility] Marycruz, unspecified Hospitalists BAILING MACHINE OPERATOR organism J96.21 Acute and chronic respiratory failure with hypoxia E11.649 Type 2 diabetes mellitus with hypoglycemia without coma N18.6 End stage renal disease E11.22 Type 2 diabetes mellitus w diabetic chronic kidney disease I73.9 Peripheral vascular disease, unspecified I12.0 Hyp chr kidney disease w stage 5 chr kidney disease or Esrd A04.72 Enterocolitis d/t Clostridium difficile, not spcf as recur Office Visit 03/22/2018 9:34a [facility] J18.9 Pneumonia, Assoc,pc [facility] Doto, unspecified Hospitalists BAILING MACHINE OPERATOR organism J96.11 Chronic respiratory failure with hypoxia E11.649 Type 2 diabetes mellitus with hypoglycemia without coma J44.9 Chronic obstructive pulmonary disease, unspecified I73.9 Peripheral vascular disease, unspecified E11.22 Type 2 diabetes mellitus w diabetic chronic kidney disease N18.6 End stage renal disease Z99.2 Dependence on renal dialysis I12.0 Hyp chr kidney disease w stage 5 chr kidney disease or Esrd A04.72 Enterocolitis d/t Clostridium difficile, not spcf as recur L02.31 Cutaneous abscess of buttock Office Visit 03/21/2018 9:34a [facility] Nolvia J18.9 Pneumonia, Assoc,[facility] [place], unspecified Hospitalists BAILING MACHINE OPERATOR 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 A41.9 Sepsis, unspecified organism E11.649 Type 2 diabetes mellitus with hypoglycemia without coma J96.11 Chronic respiratory failure with hypoxia J44.9 Chronic obstructive pulmonary disease, unspecified E11.22 Type 2 diabetes mellitus w diabetic chronic kidney disease I73.9 Peripheral vascular disease, unspecified I12.0 Hyp chr kidney disease w stage 5 chr kidney disease or Esrd N18.6 End stage renal disease A04.72 Enterocolitis d/t Clostridium difficile, not spcf as recur [facility]2018 [facility]neum[facility], Assoc,gianna Trujillo MD unspecified Hospitalists organism E87.2 Acidosis N18.6 End stage renal disease E11.22 Type 2 diabetes mellitus w diabetic chronic kidney disease J96.11 Chronic respiratory failure with hypoxia J44.1 Chronic obstructive pulmonary disease w (acute) exacerbation I73.9 Peripheral vascular disease, unspecified E11.51 Type 2 diabetes w diabetic peripheral angiopath w/o gangrene Office Visit 03/18/2018 2[facility] Pneumonia, Assoc,gianna Trujillo MD unspecified Hospitalists organism J44.9 Chronic obstructive pulmonary disease, unspecified E11.22 Type 2 diabetes mellitus w diabetic chronic kidney disease N18.6 End stage renal disease I73.9 Peripheral vascular disease, unspecified 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2 Dependence on renal dialysis F17.210 Nicotine dependence, cigarettes, uncomplicated 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 abdominal pain Hospitalists R50.9 Fever, unspecified D72.829 Elevated white blood cell count, unspecified E87.79 Other fluid overload E11.9 Type 2 diabetes mellitus without complications Z99.2 Dependence on renal dialysis Z79.4 senior care (current) use of insulin N18.6 End stage renal disease Office Visit 06/24/2017 [facility] Cheryl J96.21 Acute and chronic 9:16a Assoc,gianan Marquez BAILING MACHINE OPERATOR respiratory Hospitalists failure with hypoxia R07.9 Chest pain, unspecified N18.6 End stage renal disease Z99.2 Dependence on renal dialysis Office Visit 03/11/2017 6:52a [facility] Lore R11.2 Nausea with Assoc,gianna Rothman D.O. 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 failure with Hospitalists hypoxia J18.1 Lobar pneumonia, unspecified organism E11.21 Type 2 diabetes mellitus with diabetic nephropathy Z99.2 Dependence on renal dialysis Office Visit 02/03/2017 [facility] Alfonso oMore J96.01 Acute respiratory 8:01a Assoc,gianna Vail D.O. failure with Hospitalists hypoxia J18.1 Lobar pneumonia, unspecified organism E11.21 Type 2 diabetes mellitus with diabetic nephropathy Z99.2 Dependence on renal dialysis Office Visit 02/02/2017 8:01a [facility] Lore J96.01 Acute respiratory Assoc,gianna Rothman D.O. failure with Hospitalists hypoxia J18.1 Lobar pneumonia, unspecified organism E11.21 Type 2 diabetes mellitus with diabetic nephropathy Z99.2 Dependence on renal dialysis Office Visit 02/01/2017 8:00a [facility] Lore J18.1 Lobar pneumonia, Assoc,gianna Rothman D.O. unspecified Hospitalists organism J96.01 Acute respiratory failure with hypoxia E11.21 Type 2 diabetes mellitus with diabetic nephropathy Z99.2 Dependence on renal dialysis Office Visit 01/31/2017 [facility] Torito Gonsalves J18.1 Lobar pneumonia, 7:59a Assocgianna II, M.D. unspecified Hospitalists organism E11.21 Type 2 diabetes mellitus with diabetic nephropathy N18.6 End stage renal disease A41.9 Sepsis, unspecified organism Office Visit 12/19/2016 2:45p [facility] Sebastien M79.671 Pain in right Services Of Mitchell Garcia M.D. foot AT [place] Office Visit 11/09/2016 9:00a [facility] Sebastien I73.9 Peripheral Services Of Keenan Garcia vascular disease, C.M.A. 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 w diabetic Hospitalists peripheral angiopathy w gangrene E11.69 Type 2 diabetes mellitus with other specified complication K31.84 Gastroparesis L08.9 Local infection of the skin and subcutaneous tissue, unsp Office Visit 11/02/2016 3:03p [facility] Lore R10.84 Generalized Assocgianna D.O. abdominal pain Hospitalists R11.2 Nausea with vomiting, unspecified E11.9 Type 2 diabetes mellitus without complications Z79.4 senior care (current) use of insulin Office Visit 09/20/2016 1:59p [facility] Tash Daigle, L97.512 Non- prs Assgianna carrillo M.D. chronic ulcer Hospitalists ot prt right foot w fat layer exposed E11.9 Type 2 diabetes mellitus without complications N18.6 End stage renal disease Z79.4 senior care (current) use of insulin Office Visit 09/20/2016 3:14p Thor Chandni Wray M79.671 Pain in Infectious Macqueen, M.D. 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 chronic ulcer Hospitalists oth prt right foot w fat layer exposed E11.9 Type 2 diabetes mellitus without complications N18.6 End stage renal disease Z79.4 senior care (current) use of insulin Office Visit 09/19/2016 3:30p Tom Moon I73.9 Peripheral [facility] Of [facility] Keenan Serrano vascular disease, unspecified E11.9 Type 2 diabetes mellitus without complications Office Visit 09/18/2016 [facility] L97.512 Non-prs 1:58p Assoc,GIOVANNI Pate chronic Hospitalists ulcer oth prt right foot w fat layer exposed E11.9 Type 2 diabetes mellitus without complications N18.6 End stage renal disease Z79.4 senior care (current) use of insulin Office Visit 09/09/2016 4:17p Sonia Dunn I70.201 Unsp athscl [place] [facility] Jen, arteries of [employer] [facility] [place], right leg I25.10 Athscl heart disease of [place] coronary artery w/o ang pctrs [facility]9 Local infection Visit 9:44a Assocgianna PA of the skin and Hospitalists subcutaneous tissue, unsp I73.9 Peripheral vascular disease, unspecified E11.8 Type 2 diabetes mellitus with unspecified complications I10 Essential (primary) hypertension Office [facility]9 Local infection Visit 9:44a Assgianna carrillo PA of the skin and Hospitalists subcutaneous tissue, unsp I73.9 Peripheral vascular disease, unspecified E11.8 Type 2 diabetes mellitus with unspecified complications I10 Essential (primary) hypertension Office Visit 09/07/2016 [facility] Yordy Wray T81.31xA Disruption of 10:16a For Hang Tan M.D. external Diseases operation (surgical) wound, NEC, init T81.4xxA Infection following a procedure, initial encounter Z89.421 Acquired absence of other right toe(s) E11.40 Type 2 diabetes mellitus with diabetic neuropathy, unsp E11.51 Type 2 diabetes w diabetic peripheral angiopath w/o gangrene Office 09/07/2016 [facility] Morris L08.9 Local infection Visit 9:43a gianna Gutierrez PA of the skin and Hospitalists subcutaneous tissue, uns I73.9 Peripheral vascular disease, unspecified E11.8 Type 2 diabetes mellitus with unspecified complications I10 Essential (primary) hypertension Office Visit 09/06/2016 [facility] Suleman L08.9 Local infection of 9:42a gianna Gutierrez, N.P. the skin and Hospitalists subcutaneous tissue, unsp I73.9 Peripheral vascular disease, unspecified E11.8 Type 2 diabetes mellitus with unspecified complications I10 Essential (primary) hypertension Office Visit 08/02/2016 3:38p [facility] Garrick Petersko, R11.2 Nausea with gianna Gutierrez M.D. vomiting, Hospitalists unspecified E11.9 Type 2 diabetes mellitus without complications Z79.4 senior care (current) use of insulin N18.6 End stage renal disease Office Visit 07/18/2016 [facility] Yordy Wray M86.671 Other chronic 9:40a For Hang Tan M.D. osteomyelitis, Diseases right ankle and foot Z89.421 Acquired absence of other right toe(s) E11.69 Type 2 diabetes mellitus with other specified complication E11.40 Type 2 diabetes mellitus with diabetic neuropathy, unsp Office Visit 07/18/2016 [facility] M86.171 Other acute 10:38a Assocgianna NP osteomyelitis, Hospitalists right ankle and foot N18.6 End stage renal disease I73.9 Peripheral vascular disease, unspecified Z99.2 Dependence on renal dialysis Office Visit 07/17/2016 [facility] M86.171 Other acute 10:37a Assocgianna NP osteomyelitis, Hospitalists right ankle and foot N18.6 End stage renal disease I73.9 Peripheral vascular disease, unspecified Z99.2 Dependence on renal dialysis Office Visit 07/17/2016 [facility] Yordy Kamala M86.671 Other chronic 9:35a For Infectious Keenan Tan osteomyelitis, Diseases right ankle and foot I96 Gangrene, not elsewhere classified Z89.421 Acquired absence of other right toe(s) R19.7 Diarrhea, unspecified N18.5 Chronic kidney disease, stage 5 Office Visit 07/16/2016 [facility] M86.171 Other acute 10:37a Asslorena,gianna Graham NP osteomyelitis, Hospitalists right ankle and foot N18.6 End stage renal disease I73.9 Peripheral vascular disease, unspecified Z99.2 Dependence on renal dialysis Office Visit 07/15/2016 [facility] M86.171 Other acute 10:36a Assgianna carrillo NP osteomyelitis, Hospitalists right ankle and foot N18.6 End stage renal disease I73.9 Peripheral vascular disease, unspecified Z99.2 Dependence on renal dialysis Office Visit 07/14/2016 [facility] M86.171 Other acute 10:35a Assoc,gianna Cm MD osteomyelitis, Hospitalists right ankle and foot N18.6 End stage renal disease I73.9 Peripheral vascular disease, unspecified Z99.2 Dependence on renal dialysis Office Visit 07/13/2016 [facility] M86.671 Other chronic 2:15p Services Of Keenan Garcia osteomyelitis, right C.M.A. ankle and foot Office Visit 07/11/2016 [facility] M86.671 Other chronic 2:30p Services Of Mitchell Garcia M.D. osteomyelitis, right AT [place] ankle and foot Office Visit 06/28/2016 Surgical Tommie Yip03.031 Cellulitis of right 1:30p Associates Of MD Brad, toe [employer] FACS E11.8 Type 2 diabetes mellitus with unspecified complications E11.52 Type 2 diabetes w diabetic peripheral angiopathy w gangrene E11.40 Type 2 diabetes mellitus with diabetic neuropathy, unsp Office Visit 06/11/2016 2:15p Wound Care Raven Bravo, E11.52 Type 2 diabetes w Center AT [facility] DNP, RN, COURT OFFICER-BC diabetic peripheral angiopathy w gangrene L97.514 Non-prs chronic ulcer oth prt right foot w necrosis of bone L97.419 Non-prs chr ulcer of right heel and midfoot w unsp severt M86.371 Chronic multifocal osteomyelitis, right ankle and foot E11.22 Type 2 diabetes mellitus w diabetic chronic kidney disease N18.6 End stage renal disease E11.42 Type 2 diabetes mellitus with diabetic polyneuropathy Office Visit 05/19/2016 [facility] Sebastien M86.9 Osteomyelitis, 12:39p Assocgianna M.D. unspecified Hospitalists E11.8 Type 2 diabetes mellitus with unspecified complications E78.5 Hyperlipidemia, unspecified Office Visit 05/18/2016 9:55a [facility] Ana Wray E11.52 Type 2 diabetes Infectious Keenan Tan w diabetic Diseases peripheral angiopathy w gangrene L03.031 Cellulitis of right toe E11.22 Type 2 diabetes mellitus w diabetic chronic kidney disease N18.6 End stage renal disease Office Visit 05/18/2016 7:54a Orthopedic Leticia Ambrose, E11.22 Type 2 diabetes Services Of PA mellitus w C.M.A. diabetic chronic kidney disease N18.6 End stage renal disease S91.104A Unsp opn wnd right lesser toe(s) w/o damage to nail, init Office Visit 05/18/2016 [facility] Sebastien M86.9 Osteomyelitis, 12:39p Assgianna carrillo M.D. unspecified Hospitalists E11.8 Type 2 diabetes mellitus with unspecified complications E78.5 Hyperlipidemia, unspecified I10 Essential (primary) hypertension Office Visit 05/17/2016 [facility] Suleman M86.9 Osteomyelitis, 12:37p Assocgianna, N.P. unspecified Hospitalists E11.8 Type 2 diabetes mellitus with unspecified complications E78.5 Hyperlipidemia, unspecified I10 Essential (primary) hypertension Office Visit 03/05/2016 2:45p Pulmonology And Clarice R59.0 Localized Sleep Services Of MD Oumar enlarged lymph [employer]ader nodes G47.9 Sleep disorder, unspecified F17.210 Nicotine dependence, cigarettes, uncomplicated E66.01 Morbid (severe) obesity due to excess calories J98.11 Atelectasis Office Visit 02/11/2016 [facility] Virgilio M21.372 Foot drop, left 2:16p Clinic Keenan Toth foot Office Visit 02/11/2016 [facility] Sebastien J96.01 Acute 2:55p Assoc,gianna Garza M.D. respiratory failure with hypoxia N18.6 End stage renal disease 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 Z79.4 senior care (current) use of insulin Office Visit 02/10/2016 3:14p [facility] Clarice R59.0 Localized Sleep Services Of MD Oumar enlarged lymph [place] nodes G47.9 Sleep disorder, unspecified F17.210 Nicotine dependence, cigarettes, uncomplicated J98.11 Atelectasis Office Visit 02/10/2016 [facility] Alfonso YogeshChris J96.01 Acute respiratory 2:55p Assoc,gianna [place] D.O. failure with Hospitalists hypoxia 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 N18.6 End stage renal disease Z79.4 intermediate project manager (current) use of insulin Office Visit 02/10/2016 [facility] Samuel J96.01 Acute respiratory 2:54p Assoc,gianna Cm MD failure with Hospitalists hypoxia N18.6 End stage renal disease 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 Z79.4 intermediate project manager (current) use of insulin Office Visit 02/09/2016 [facility] Alfonso Moore J96.01 Acute respiratory 2:53p Assoc,gianna [place] D.O. 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 N18.6 End stage renal disease [facility] 2:53p Assoc,gianna Cm MD failure with Hospitalists hypoxia 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 N18.6 End stage renal disease Z79.4 intermediate project manager (current) use of insulin Office Visit 02/08/2016 [facility] Virgilio M21.372 Foot drop, 2:15p Gene Toth M.D. left foot Office Visit 02/08/2016 [facility] Elena Estrada, R53.1 Weakness 2:52p Assoc,pc Hospitalists DO 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 N18.6 End stage renal disease Z79.4 senior care (current) use of insulin Office 02/07/2016 [facility] Virgilio M21.372 Foot drop, left Visit 2:14p Clinic Keenan Toth foot Office 01/27[facility]2016 [facility] R73.9 Hyperglycemia, Visit 9:45a Assoc,pc Hospitalists Brina WATSON, adriana Hussein R07.89 Other chest pain N18.6 End stage renal disease I10 Essential (primary) hypertension Office Visit 11/28/2015 11:45a [facility] Tommie Lomas N18.6 End stage renal Of Mitchell Salinas MD, disease FACS L03.311 Cellulitis of abdominal wall L03.313 Cellulitis of chest wall Office Visit 11/13/2015 1:00p [facility] J20.9 Acute bronchitis, Assgianna carrillo M.D. unspecified Hospitalists E11.22 Type 2 diabetes mellitus w diabetic chronic kidney disease N18.6 End stage renal disease I10 Essential (primary) hypertension Office Visit 10/21/2015 [facility] Samuel L03.311 Cellulitis of 3:29p Assocgianna MD abdominal wall Hospitalists T85.71xA Infect/inflm reaction due to periton dialysis catheter, init E11.22 Type 2 diabetes mellitus w diabetic chronic kidney disease Z79.4 intermediate project manager (current) use of insulin Office Visit 10/20/2015 [facility] G[facility]al[facility] L03.311 Cellulitis of 3:28p gianna Gutierrez II, M.D. abdominal wall Hospitalists T85.71xA Infect/inflm reaction due to periton dialysis catheter, init E11.22 Type 2 diabetes mellitus w diabetic chronic kidney disease Z79.4 intermediate project manager (current) use of insulin Office Visit 09/12/2015 [facility] Tara R07.9 Chest pain, 9:34a Assoc,gianna Ramesh NP unspecified Hospitalists N18.6 End stage renal disease E11.8 Type 2 diabetes mellitus with unspecified complications Z79.4 senior care (current) use of insulin Office Visit 09/11/2015 [facility] Inés Harris R07.9 Chest pain, 9:28a Assoc,gianna Rivas NP unspecified Hospitalists N18.6 End stage renal disease E11.8 Type 2 diabetes mellitus with unspecified complications Office Visit 09/02/2015 1:57p [facility] Torito Gonsalves R07.89 Other chest Assoc,gianna WATSON M.D. pain Hospitalists E11.22 Type 2 diabetes mellitus w diabetic chronic kidney disease N18.6 End stage renal disease Z79.4 senior care (current) use of insulin Office Visit 05/27/2015 [facility] Sebastien E11.621 Type 2 diabetes 3:30p Services Of Iraida Garcia M.D. mellitus with foot ulcer Office Visit 05/17/2015 [facility] Suleman E11.8 Type 2 diabetes 2:49p Assoc,gianna Bell, mellitus with Hospitalists N.P. unspecified complications T14.8 Other injury of unspecified body region N18.6 End stage renal disease I10 Essential (primary) hypertension Office Visit 05/16/2015 10:37a [facility] Alexandrea T14.8 Other injury of Assoc,GIOVANNI Clinton unspecified body Hospitalists region N18.6 End stage renal disease E11.8 Type 2 diabetes mellitus with unspecified complications I10 Essential (primary) hypertension Office Visit 05/16/2015 [facility] Tara T14.8 Other injury of 2:48p Assoc,gianna Ramesh NP unspecified body Hospitalists region N18.6 End stage renal disease E11.8 Type 2 diabetes mellitus with unspecified complications I10 Essential (primary) hypertension Office Visit 05/16/2015 2:12p [facility] Yordy Wray L97.519 Non- prs Infectious Keenan Tan chronic ulcer Diseases oth prt right foot w unsp severity G62.9 Polyneuropathy, unspecified N18.6 End stage renal disease Z99.2 Dependence on renal dialysis I25.10 Athscl heart disease of [place] coronary artery w/o ang pctrs Office Visit 05/15/2015 2:48p [facility] Liliana Flores T14.8 Other injury of Assoc,pc Osmar, N.P. unspecified body Hospitalists region N18.6 End stage renal disease E11.8 Type 2 diabetes mellitus with unspecified complications I10 Essential (primary) hypertension Office Visit 05/14/2015 [facility] T14.8 Other injury of 2:47p Assocgianna NChrisPChris unspecified body Hospitalists region N18.6 End stage renal disease E11.8 Type 2 diabetes mellitus with unspecified complications I10 Essential (primary) hypertension Office Visit 04/12/2015 11:00a Orthopedic Sebastien E10.621 Type 1 diabetes Services Of Mitchell Garcia M.D. mellitus with AT [place] foot ulcer L97.513 Non-prs chronic ulcer oth prt right foot w necros muscle Office Visit 03/29/2015 Orthopedic Sebastien Garcia, E10.621 Type 1 9:10a Services Of [facility] SHIKHA Zuñiga.Kamala diabetes [place] mellitus with foot ulcer Office Visit 12/10/2014 [facility] Torito Brina R53.81 Other malaise 3:34p Assocgianna II, M.D. 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, 585.6 End Stage Assoc,gianna N.P. Renal Disease Hospitalists 414.00 Coronary Atherosclerosis Unspec Type Vessel [place] 362.10 Retinopathy Background Unspec 250.00 Diabetes Mellitus W/O Compl Type II Or Unspec Controlled Office Visit 06/27/2014 7:45a [facility] Ann 789.00 Pain Abdominal Assocgianna M.D. Unspec Site Hospitalists 585.6 End Stage Renal Disease 250.00 Diabetes Mellitus W/O Compl Type II Or Unspec Controlled Office Visit 04/06/2014 8:26a [facility] Amari Singh, 786.50 Pain Chest Assoc,pc M.D. Unspec Hospitalists 585.6 End Stage Renal Disease 250.00 Diabetes Mellitus W/O Compl Type II Or Unspec Controlled 401.9 Hypertension Unspec Office Visit 04/05/2014 8:25a [facility] Liliana Flores 786.50 Pain Chest Assoc,gianna Prasad, N.P. Unspec Hospitalists 585.6 End Stage Renal Disease 250.00 Diabetes Mellitus W/O Compl Type II Or Unspec Controlled 401.9 Hypertension Unspec Plan of Treatment Future Appointment(s):05/22/2018 1:30 pm - Clarice Oseguera MD at [facility]03/07/2018 - Petty rAriaza, NPL02.31 Cutaneous abscess of buttockFollow up:NEXT WEEK WITH JESSIKA OTERO48.01 Encounter for change or removal of surgical wound dressing
--- NOTE | 2018-05-20 22:10 | ED ---
GI/ HPI - HPI Summary HPI Summary: Patient is a 37 y/o female who presents to the ED c/o rectal bleeding. She was at [facility] for necrosis of her right hand, Pt c/o her hand being cold and having a black tip. Patient felt she was not getting the care she needed and left AMA at 18:30 today. She was diagnosed with calciphylaxis and is here today for pain management. Patient also c/o rectal bleeding, melena, rectal pain, mild nausea, and pain to her buttocks, thighs, and low back. She denies any SOB. She states that she was told she might have another GI bleed. Her pain is rated a 10/10 in severity and is described as aching. As per medical records, she visits the ED frequently and often leaves AMA. PMHx DM, anemia, ESRD on peritoneal dialysis. She is tachycardic in the room with a HR of 113 bpm. - History of Current Complaint Chief Complaint: EDGeneral Time Seen by Provider: 05/20/18 22:05 Stated Complaint: RECTAL BLEEDING PER PT Hx Obtained From: Patient, Medical Records Hx Last Menstrual Period: just finished Onset/Duration: Still Present Timing: Constant Current Severity: Severe Pain Intensity: 10 Location of Pain: Rectal, Other - buttocks, thighs, low back Pain Characteristics: Aching Associated Signs and Symptoms: Positive: Back Pain, Rectal Pain, Other: - rectal bleeding - Additional Pertinent History Primary Care Physician: FELIX - Allergy/Home Medications Allergies/Adverse Reactions: Allergies Allergy/AdvReac Type Severity Reaction Status Date / Time Adhesive Tape [Plastic Tape] Allergy Mild Blisters Verified 04/14/18 12:05 chlorhexidine Allergy Rash Verified 05/05/18 19:17 doxycycline Allergy Unknown Verified 04/14/18 12:05 Reaction Details erythromycin base Allergy See Comment Verified 04/14/18 12:05 heparin Allergy See Comment Verified 04/14/18 12:05 metoclopramide [From Reglan] Allergy Hives Verified 04/14/18 12:05 niacin Allergy Rash Verified 04/14/18 12:05 ropinirole [From Requip] Allergy Hives Verified 04/14/18 12:05 metronidazole [From Flagyl] AdvReac Nausea And Verified 04/21/18 13:15 Vomiting PMH/Surg Hx/FS Hx/Imm Hx Endocrine/Hematology History: Reports: Hx Anticoagulant Therapy - Aspirin., Hx Blood Transfusions, Hx Diabetes, Hx Thyroid Disease - nodule, Hx Anemia - hx of - reports had tranfusion in 2014 after mi Cardiovascular History: Reports: Hx Angina, Hx Cardiac Arrest, Hx Cardiomegaly, Hx Coronary Artery Disease, Hx Deep Vein Thrombosis, Hx Hypercholesterolemia, Hx Hypertension, Hx Myocardial Infarction, Hx Peripheral Vascular Disease, Other Cardiovascular Problems/Disorders Denies: Hx Congestive Heart Failure, Hx Pacemaker/ICD, Hx Valvular Heart Disease Respiratory History: Reports: Hx Asthma, Hx Chronic Obstructive Pulmonary Disease (COPD) - smoker, Hx Pneumonia, Hx Sleep Apnea, Other Respiratory Problems/Disorders - acute respipatory failure with hypoxia - jan 2016 Denies: Hx Lung Cancer, Hx Pulmonary Embolism - pt says no, although documented in char GI History: Reports: Hx Gall Bladder Disease, Hx Gastroesophageal Reflux Disease , Other GI Disorders - GASTROPARESIS - TAKING OMEPRAZOLE, reglan and zofran Denies: Hx Gastrointestinal Bleed, Hx Ulcer, Hx Urosepsis History: Reports: Hx Acute Renal Failure, Hx Chronic Renal Failure - ESRD on PD, Hx Dialysis - PERITONEAL, Hx Kidney Stones, Hx Renal Disease - ESRD on home peritoneal dialysis , Other Problems/Disorders Musculoskeletal History: Reports: Hx Arthritis - back, hips, Hx Back Problems - Sciatica and Herniated L3 disk, Other Musculoskeletal History - partial amputation of toes/foot Sensory History: Reports: Hx Contacts or Glasses, Hx Eye Prosthesis - L eye, 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 left eye removed, toes removed right, heart cath, abdominal catheters for dialysis, 6 times melanoma removed. Hx Anesthesia Reactions: No - Immunization History Date of Tetanus Vaccine: utd Date of Influenza Vaccine: 11/2016 Infectious Disease History: No Infectious Disease History: Reports: Hx of Known/Suspected MRSA - MRSA R 1st toe , History Other Infectious Disease - GANGRENE Denies: Hx Clostridium Difficile, Hx Hepatitis, Hx Human Immunodeficiency Virus (HIV), Hx Shingles, Hx Tuberculosis, Traveled Outside the [place] in Last 30 Days - Family History Known Family History: Positive: Cardiac Disease - father [place] at 42 y/o, Hypertension, Other - Positive for bipolar and depression. Completed suicide to sister. - Social History Alcohol Use: None Hx Substance Use: No Substance Use Type: Reports: None Substance Use Comment - Amount & Last Used: methadone Hx Tobacco Use: Yes Smoking Status (MU): Heavy Every Day Tobacco Smoker Type: Cigarettes Amount Used/How Often: 1 PPD Length of Time of Smoking/Using Tobacco: 20 YEARS Have You Smoked in the Last Year: Yes Review of Systems Negative: Shortness Of Breath Positive: Nausea - mild, Other - rectal bleeding and pain, melena Positive: Myalgia - buttocks, thighs, low back, Other - right hand cold and black All Other Systems Reviewed And Are Negative: Yes Physical Exam - Summary Physical Exam Summary: Appearance: well appearing, no pain distress Skin: warm, dry, mild pallor, right hand pallorous, blackout scars all over bilateral legs consistent with her diagnosis of calciphylaxis, large area of calciphylaxis on sacrum Head/face: normal Eyes: EOMI, HILLARY ENT: mucous membranes moist Neck: supple, non-tender Respiratory: breath sounds present, diffuse wheezes Cardiovascular: tachycardic but regular rhythm, pulses symmetrical Abdomen: non-tender, soft, PT catheter Bowel Sounds: present Musculoskeletal: normal, strength/ROM intact Neuro: normal, sensory motor intact, A&Ox3 Rectal: black melanous stool Triage Information Reviewed: Yes Vital Signs On Initial Exam: Initial Vitals Temp Pulse Resp BP Pulse Ox 98.3 F 110 16 164/86 100 05/20/18 19:50 05/20/18 19:50 05/20/18 19:50 05/20/18 19:50 05/20/18 19:50 Vital Signs Reviewed: Yes Diagnostics - Vital Signs Vital Signs Temp Pulse Resp BP Pulse Ox 05/20/18 19:50 98.3 F 110 16 164/86 100 - Laboratory Result Diagrams: 05/20/18 23:14 05/20/18 23:14 Lab Statement: Any lab studies that have been ordered have been reviewed, and results considered in the medical decision making process. GIGU Course/Dx - Course Course Of Treatment: Nurse's notes reviewed. This patient was transferred to [facility] yesterday and left AMA from there today, immediately returning here. She states that she has had a rule out of vascular occlusion in her right upper extremity. She may be suffering from calciphylaxis of her digit. She has extensive calciphylaxis of her backside and legs. She is end- stage and both COPD and ESRD. She also has GI bleed has been on blood thinners. She will require readmission. I've talked to her at length about considering hospice care given her extremely poor prognosis. She still has not considered this and is difficult to have a conversation with regarding it. - Diagnoses Differential Diagnoses - Female: Other - Vascular occlusion, calciphylaxis, chronic pain, infection, ischemic colitis Provider Diagnoses: GI bleed, ESRD on dialysis, COPD (chronic obstructive pulmonary disease) - Physician Notifications Discussed Care Of Patient With: Jameson Reed Time Discussed With Above Provider: 23:15 Instructed by Provider To: Admit As Inpatient - Critical Care Time Critical Care Time: 30-74 min - CCT is EXCLUSIVE of separately billable procedures. Discharge - Sign-Out/Discharge Documenting (check all that apply): Patient Departure - Admit Patient Received Moderate/Deep Sedation with Procedure: No - Discharge Plan Condition: Stable Disposition: ADMITTED TO [facility] - Billing Disposition and Condition Condition: STABLE Disposition: Admitted to [facility] - Attestation Statements Document Initiated by Scribe: Yes Documenting Scribe: Rupal Serna Provider For Whom Scribe is Documenting (Include Credential): Yamil Garcia MD Scribe Attestation: Rupal Palacio scribed for Yamil Garcia MD on 05/21/18 at 0300. Scribe Documentation Reviewed: Yes Provider Attestation: The documentation as recorded by the Rupal sexton accurately reflects the service I personally performed and the decisions made by me, Yamil Garcia MD Status of Scribe Document: Viewed
[2018-05-20] MEDS ORDERED: PROCHLORPERAZINE INJ 5 MG/ML 2 ML VIAL IV ONE (23:12)
[2018-05-20] MEDS: HYDROmorphone INJ1* 1 MG/ML SYRINGE IV SLOW PU ONE (23:22)
[2018-05-20 23:29] LABS: Hematocrit 23 % (33-41); Hemoglobin 7.6 g/dL (12.0-16.0); Mean Corpuscular HGB Conc 33 g/dL (31-36); Mean Corpuscular Hemoglobin 28 pg (27-31); Mean Corpuscular Volume 85 fL (80-97); Mean Platelet Volume 8.2 fL (7.4-10.4); Platelet Count 392 10^3/uL (150-450); Red Blood Count 2.73 10^6 /uL (3.70-4.87); Red Cell Distribution Width 17 % (10.5-15)
[2018-05-20 23:36] LABS: INR 1.85 (0.77-1.02)
[2018-05-20 23:49] LABS: Albumin 2.4 g/dL (3.2-5.2); Albumin/Globulin Ratio 0.7 (1-3); BUN/Creatinine Ratio 6.7 (8-20); EGFR African American 7.9 (>60); EGFR Non-African American 6.5 (>60); Globulin 3.5 g/dL (2-4); Potassium 4.9 mmol/L (3.5-5.0); Total Bilirubin 0.3 mg/dL (0.2-1.0); Total Protein 5.9 g/dL (6.4-8.9)
[2018-05-20 23:53] LABS: ABS Basophils 0.1 10^3/ul (0-0.2); ABS Eosinophils 0.1 10^3/ul (0-0.6); ABS Lymphocytes 1.2 10^3/ul (1.0-4.8); ABS Monocytes 0.8 10^3/ul (0-0.8); ABS Neutrophils 18.8 10^3/ul (1.5-7.7); ABS Nucleated RBC 0 10^3/ul; Eosinophil % 0.3 %; Lymphocyte % 5.8 %; Nucleated Red Blood Cells % 0
[2018-05-20 23:54] LABS: Polychromasia 1+
[2018-05-21] MEDS ORDERED: SODIUM THIOSULFATE IV ONE (00:24)
[2018-05-21] MEDS ORDERED: Acetaminophen TAB* 325 MG PO PRN ×2 (00:41→01:26)
[2018-05-21] MEDS ORDERED: Promethazine TAB* 25 MG PO PRN (00:41)
[2018-05-21] MEDS ORDERED: Methadone TAB* 5 MG PO PRN (00:41)
[2018-05-21] MEDS ORDERED: Dextrose 50% Syringe 50 ML* 25 GM/50 ML SYRINGE IV PUSH PRN (00:43)
[2018-05-21] MEDS ORDERED: Al Hydrox/Mg Hydrox/Simet LIQ* 30 ML UDC PO PRN (01:28)
[2018-05-21] MEDS ORDERED: LORazepam INJ* 2 MG/ML 1 ML VIAL IV PUSH PRN (01:28)
[2018-05-21] MEDS ORDERED: SODIUM THIOSULFATE 25 GM IV SCH (01:30)
[2018-05-21] MEDS ORDERED: HYDROmorphone INJ1* 1 MG/ML SYRINGE ONE (01:51)
[2018-05-21] MEDS: HYDROmorphone INJ1* 1 MG/ML SYRINGE IV SLOW PU ONE (01:55)
[2018-05-21] MEDS: Insulin LISPRO* 1 UNITS UNIT SUBCUT SCH ×5 (02:42→20:49)
[2018-05-21] MEDS: HYDROmorphone INJ1* 1 MG/ML SYRINGE IV SLOW PU PRN ×4 (03:51→15:02)
[2018-05-21] MEDS: fentaNYL PATCH 50 MCG/HR TRANSDERM SCH ×2 (04:18→15:00)
[2018-05-21] MEDS: fentaNYL Patch Check Q Shift 1 NOTE FOLLOW UP SCH ×2 (05:54→19:26)
[2018-05-21] MEDS: Mometasone/Formoter 200/5 MDI INH SCH ×2 (08:22→19:36)
[2018-05-21] MEDS: Albuterol 2.5 MG/3 ML NEB.SOL* (0.083%) INH PRN (08:25)
[2018-05-21] MEDS ORDERED: Budesonide/Formote 160/4.5(NF) MDI INH SCH (09:00)
[2018-05-21] MEDS ORDERED: Sertraline* 25 MG TAB PO SCH (09:00)
[2018-05-21] MEDS ORDERED: Methadone TAB* 10 MG PO SCH (09:00)
[2018-05-21] MEDS: Mupirocin 2% OINT* TUBE TOPICAL SCH ×2 (10:01→21:47)
[2018-05-21] MEDS: Sodium Bicarbonate (ANTACID)* 650 MG TAB PO SCH ×5 (10:01→22:54)
[2018-05-21] MEDS: Gabapentin CAP(*) 100 MG PO SCH ×3 (10:02→20:50)
[2018-05-21] MEDS: Calcitriol CAP* 0.25 MCG PO SCH ×3 (10:02→21:48)
[2018-05-21] MEDS: Aspirin EC TAB* 81 MG TAB.EC PO SCH (10:02)
[2018-05-21] MEDS: Bethanechol TAB* 25 MG PO SCH ×4 (10:02→21:49)
[2018-05-21] MEDS: Dronabinol CAP* 2.5 MG PO SCH ×3 (10:03→20:52)
[2018-05-21] MEDS: Lidocaine 2% JELLY* 6 ML JELLY TOPICAL SCH ×4 (10:04→21:49)
[2018-05-21] MEDS: DULoxetine DR CAP* 30 MG CAP.DR PO SCH (10:04)
[2018-05-21] MEDS: Losartan TAB* 25 MG PO SCH (10:04)
[2018-05-21] MEDS: EPOETIN ALFA-EPBX * 4,000 UNIT/ML VIAL SUBCUT SCH (10:04)
[2018-05-21] MEDS: CMCS:Midodrine (NF) 5 MG TAB PO SCH ×4 (10:04→21:48)
--- NOTE | 2018-05-21 10:25 | ADMNOTE ---
Subjective Date of Service: 05/21/18 Interval History: HISTORY AND PHYSICAL PCP: Will CC: leg pain HPI: Patient is 37 year old woman with multiple medical problems, just discharged from this hospital on 05/19. On 05/19 she was transferred directly to [facility] for evaluation of right hand, 3rd digit ischemia, which presented with a painful blue distal phalanx. During her hospital stay from 04/29- 05/19 she was treated for PVD, diagnosed with calciphylaxis, began infusions of sodium thiosulfate, was intubated for acute on chronic respiratory failure. The calciphylaxis causes ulceration and pain in low back, buttocks, thighs, left calf, feet. The patient also has a chronic GI bleed, was seen by Dr Hartman regarding this. There was discussion of chronic ischemic colitis, but colonoscopy deferred due to concern of risk vs benefit. She has been anticoagulated with warfarin, which led to epistaxis when INR >3, so she was switched to an DOAC. She continues to have anemia and heme positive stool on the DOAC. Indication for anticoagulation relates to previous PVD surgery, not a- fib, DVT, or PE. 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 Patient states that at [facility], she had a CTA of the RT upper extremity, a plain film of RT 3rd finger, and a doppler U/S. She was told no intervention was needed. She felt the nurses were causing pain, being rough with her, so she left against medical advice around 1830 this evening, and came directly back to [facility]. Family History: Findings - Father age 49 of [place], mother has diabetes Social History: Findings - Disabled, lives with male partner Moreno, who is HCP, smokes 1/2 PPD, no alcohol or drug use Past Medical History: Findings - ESRD on peritoneal dialysis, anemia of renal disease and blood loss, severe COPD, Type 2 diabetes, GERD, CAD, hypertension, hyperlipidemia, diabetic gastroparesis, HIT; PSH: excision melanoma from vulva, stent to RT SFA, stent to R brachial artery, LT eye enucleation, RT foor transmetatarsal amp Review of Systems - Measurements Intake and Output: Intake and Output Last 24 Hours 05/19/18 05/20/18 05/21/18 05/22/18 06:59 06:59 06:59 06:59 Intake Total 0 120 Balance 0 120 Weight 91.172 kg Intake: Oral 0 120 - Review of Systems Constitutional Symptoms: Positive: Fatigue Negative: Weight Gain Dermatology: Positive: Rash, Skin Lesions HEENT: Positive: Normal Eyes: Positive: Other - nearly blind Negative: Change in Vision Thyroid: Positive: Normal Pulmonary: Positive: Shortness of Breath, COPD Cardiology: Negative: Chest Pain Gastroenterology: Positive: Abdominal Pain, Nausea, Vomiting Genital - Urinary: Positive: Other - anuric nearly Musculoskeletal: Positive: Low Back Pain, Sciatica Endocrinology: Positive: Family Hx Endocrine Disorders, Diabetes Mellitus Hematologic/Lymphatic: Positive: Anemia, Use of Anticoagulant Neurology: Positive: Normal Negative: Change in Vision Psychiatry: Positive: Depressed Mood Objective Active Medications: Current Meds: Acetaminophen (Tylenol Tab*) 650 mg PO Q6H PRN PRN Reason: Fever/Pain Al Hydrox/Mg Hydrox/Simethicone (Maalox Plus*) 30 ml PO Q6H PRN PRN Reason: DYSPEPSIA Albuterol (Ventolin 2.5 Mg/3 Ml Neb.Kaylynn*) 2.5 mg INH Q4HR PRN PRN Reason: SOB/WHEEZING Last Admin: 05/21/18 08:25 Dose: 2.5 mg Aspirin (Aspirin Ec Tab*) 81 mg PO DAILY [facility] Last Admin: 05/21/18 10:02 Dose: 81 mg Bethanechol Chloride (Urecholine Tab*) 25 mg PO QID [facility] Last Admin: 05/21/18 10:02 Dose: 25 mg Calcitriol (Rocaltrol Cap*) 0.25 mcg PO TID [facility] Last Admin: 05/21/18 10:02 Dose: 0.25 mcg Dextrose (D50w Syringe 50 Ml*) 12.5 gm IV PUSH .FOR FS < 60 - SS PRN PRN Reason: FS < 60 Dronabinol (Marinol Cap*) 5 mg PO TID [facility] Last Admin: 05/21/18 10:03 Dose: 5 mg Duloxetine HCl (Cymbalta Cap*) 30 mg PO DAILY [facility] Last Admin: 05/21/18 10:04 Dose: 30 mg Epoetin Darci (Retacrit) 4,000 unit SUBCUT MOWEFR [facility] Last Admin: 05/21/18 10:04 Dose: 4,000 unit Fentanyl (Duragesic Patch 50 Mcg/Hr*) 50 mcg TRANSDERM Q72H [facility] Last Admin: 05/21/18 04:18 Dose: Not Given Gabapentin (Neurontin Cap(*)) 200 mg PO TID [facility] Last Admin: 05/21/18 10:02 Dose: 200 mg Hydromorphone HCl (Dilaudid Inj1s*) 1 mg IV SLOW PU Q3H PRN PRN Reason: PAIN Last Admin: 05/21/18 07:43 Dose: 1 mg Sodium Thiosulfate 25 gm/ (Sodium Chloride) 200 mls @ 200 mls/hr IV SuMoWeFr [facility] Insulin Human Lispro (Humalog*) 0 units SUBCUT ACHS [facility]; Protocol Last Admin: 05/21/18 08:35 Dose: Not Given Lidocaine HCl (Lidocaine 2% Jelly*) 1 applic TOPICAL TID [facility] Last Admin: 05/21/18 10:04 Dose: 1 applic Lorazepam (Ativan Inj*) 1 mg IV PUSH Q6H PRN PRN Reason: ANXIETY Losartan Potassium (Cozaar Tab*) 25 mg PO DAILY [facility] Last Admin: 05/21/18 10:04 Dose: 25 mg Methadone HCl (Dolophine Tab*) 10 mg PO Q12HR [facility] Last Admin: 05/21/18 10:10 Dose: 10 mg Midodrine (Midodrine (Nf)) 10 mg PO QID [facility]; Protocol Last Admin: 05/21/18 10:04 Dose: 10 mg Mometasone Furoate/Formoterol Fumar (Dulera 200/5 Mdi*) 2 puff INH BID [facility] Last Admin: 05/21/18 08:22 Dose: 2 puff Mupirocin (Bactroban 2 % Oint*) 1 applic TOPICAL BID [facility] Last Admin: 05/21/18 10:01 Dose: 1 applic Ondansetron HCl (Zofran Inj*) 8 mg IV Q6H PRN PRN Reason: NAUSEA Pantoprazole Sodium (Protonix Tab*) 40 mg PO QPM [facility] Prochlorperazine Edisylate (Compazine Inj*) 5 mg IV Q6H PRN PRN Reason: NAUSEA Sodium Bicarbonate (Sodium Bicarbonate (Antacid)*) 2,600 mg PO QID [facility] Last Admin: 05/21/18 10:01 Dose: 2,600 mg Vital Signs - 8 hr 05/21/18 05/21/18 05/21/18 02:59 03:28 03:51 Temperature 37.0 C 36.8 C Pulse Rate 115 112 Respiratory 14 20 20 Rate Blood Pressure 155/88 145/52 (mmHg) O2 Sat by Pulse 98 99 Oximetry 05/21/18 05/21/18 05/21/18 05:53 07:23 07:43 Temperature 36.3 C Pulse Rate 116 Respiratory 17 16 19 Rate Blood Pressure 147/54 (mmHg) O2 Sat by Pulse 90 Oximetry 05/21/18 05/21/18 05/21/18 08:27 10:02 10:03 Temperature Pulse Rate 110 Respiratory 20 16 16 Rate Blood Pressure (mmHg) O2 Sat by Pulse 96 Oximetry 05/21/18 10:10 Temperature Pulse Rate Respiratory 16 Rate Blood Pressure (mmHg) O2 Sat by Pulse Oximetry Oxygen Devices in Use Now: Nasal Cannula Appearance: alert, no distress Eyes: No Scleral Icterus, - - strabismus Ears/Nose/Mouth/Throat: - - dry mouth, poor dentition Neck: NL Appearance and Movements; NL JVP Respiratory: Clear to Auscultation, - - diminished BS Cardiovascular: NL Sounds; No Murmurs; No JVD Abdominal: No Hepatosplenomegaly, - - PD catheter in place umbilicus, distended , +BS, no masses Lymphatic: No Cervical Adenopathy Extremities: No Edema Skin: - - large areas of superficial ulcer on buttocks, upper thighs, LT calf, RT forefoot amputated Neurological: Alert and Oriented x 3 Lines/Tubes/Other Access: Clean, Dry and Intact Peripheral IV Nutrition: Taking PO's Result Diagrams: 05/20/18 23:14 05/20/18 23:14 Assess/Plan/Problems-Billing Assessment: 37 year old with multiple medical problems including ESRD, on PD, calciphylaxis , chronic GI bleed, diffuse PVD - Patient Problems (1) Calciphylaxis Current Visit: Yes Status: Acute Priority: High Code(s): E83.59 - OTHER DISORDERS OF CALCIUM METABOLISM SNOMED Code(s): 584191458 Comment: - S/p skin biopsy on 05/12 with pathology confirmation. - Will restart IV sodium thiosulfate infusions - Continue to monitor for hypotension. - Will discuss case with Dr. Marrufo again (2) GI bleed Current Visit: No Status: Acute Priority: High Code(s): K92.2 - GASTROINTESTINAL HEMORRHAGE, UNSPECIFIED SNOMED Code(s): 46342449 Comment: - Source is unclear, but we suspect ischemic colitis with known vascular disease. - hemoglobin stable and partially related to ESRD - Will stop anticoagulation, no clear indiation at this point. (3) ESRD on peritoneal dialysis Current Visit: No Status: Chronic Priority: Medium Code(s): N18.6 - END STAGE RENAL DISEASE; Z99.2 - DEPENDENCE ON RENAL DIALYSIS SNOMED Code(s): 58160269 Comment: - Continue peritoneal dialysis. - Will need nephrology consultation. - iron levels low 10 days ago, may benefit from IV iron infusions (4) PAD (peripheral artery disease) Current Visit: No Status: Chronic Priority: Medium Code(s): I73.9 - PERIPHERAL VASCULAR DISEASE, UNSPECIFIED SNOMED Code(s): 146828384 Comment: - Recent CT Aorta with run off this admission with moderate-severe R common femoral artery stenosis, severe b/l popliteal artery stenosis, near complete occlusion of distal L superficial fem artery stent. - No DVT seen on review of last 2 years of LE doppler tests, but there is reported history of DVT per recent records, patient unaware - If PE occurs, could restart renal-dose Eliquis, or have SC fondaparinux if needed, but at this point risk of anticoagulation outweighs benefits - RT 3rd finger ischemia concerning, will obtain [facility] records. Status and Disposition: inpatient
--- NOTE | 2018-05-21 11:44 | CONSULT ---
Subjective Date of Service: 05/21/18 Interval History: Ms. 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 She was transferred to [facility] on 05/19/18 for right 3rd finger ischemia. She signed out AMA from [facility] and represented to [facility] [place] and was readmitted. She presented to the hospital with multiple skin lesions in the setting of calciphylaxis. Patient seen and examined at bedside. Family History: Findings - Father age 49 of [place], mother has diabetes Social History: Findings - Disabled, lives with male partner Moreno, who is HCP, smokes 1/2 PPD, no alcohol or drug use Past Medical History: Findings - ESRD on peritoneal dialysis, anemia of renal disease and blood loss, severe COPD, Type 2 diabetes, GERD, CAD, hypertension, hyperlipidemia, diabetic gastroparesis, HIT; PSH: excision melanoma from vulva, stent to RT SFA, stent to R brachial artery, LT eye enucleation, RT foor transmetatarsal amp Review of Systems - Measurements Intake and Output: Intake and Output Last 24 Hours 05/19/18 05/20/18 05/21/18 05/22/18 06:59 06:59 06:59 06:59 Intake Total 0 120 Balance 0 120 Weight 201 lb Intake: Oral 0 120 - Review of Systems Constitutional Symptoms: Negative: Fever, Other - Chills Dermatology: Positive: Other - Open areas to bilateral thighs and back Endocrinology: Positive: Diabetes Mellitus Objective Active Medications: Acetaminophen (Tylenol Tab*) 650 mg PO Q6H PRN Reason: Fever/Pain Al Hydrox/Mg Hydrox/Simethicone (Maalox Plus*) 30 ml PO Q6H PRN Reason: DYSPEPSIA Albuterol (Ventolin 2.5 Mg/3 Ml Neb.Kaylynn*) 2.5 mg INH Q4HR PRN Reason: SOB/ WHEEZING Aspirin (Aspirin Ec Tab*) 81 mg PO DAILY [facility] Bethanechol Chloride (Urecholine Tab*) 25 mg PO QID [facility] Calcitriol (Rocaltrol Cap*) 0.25 mcg PO TID [facility] Dextrose (D50w Syringe 50 Ml*) 12.5 gm IV PUSH .FOR FS < 60 - SS PRN Reason: FS < 60 Dronabinol (Marinol Cap*) 5 mg PO TID [facility] Duloxetine HCl (Cymbalta Cap*) 30 mg PO DAILY [facility] Epoetin Darci (Retacrit) 4,000 unit SUBCUT MOWEFR [facility] Fentanyl (Duragesic Patch 50 Mcg/Hr*) 50 mcg TRANSDERM Q72H [facility] Gabapentin (Neurontin Cap(*)) 200 mg PO TID [facility] Hydromorphone HCl (Dilaudid Inj1s*) 1 mg IV SLOW PU Q3H PRN Reason: PAIN Sodium Thiosulfate 25 gm/ (Sodium Chloride) 200 mls @ 200 mls/hr IV SuMoWeFr [facility] Insulin Human Lispro (Humalog*) 0 units SUBCUT ACHS [facility]; Protocol Lidocaine HCl (Lidocaine 2% Jelly*) 1 applic TOPICAL TID [facility] Lorazepam (Ativan Inj*) 1 mg IV PUSH Q6H PRN Reason: ANXIETY Losartan Potassium (Cozaar Tab*) 25 mg PO DAILY [facility] Methadone HCl (Dolophine Tab*) 10 mg PO Q12HR [facility] Midodrine (Midodrine (Nf)) 10 mg PO QID [facility]; Protocol Mometasone Furoate/Formoterol Fumar (Dulera 200/5 Mdi*) 2 puff INH BID [facility] Mupirocin (Bactroban 2 % Oint*) 1 applic TOPICAL BID [facility] Ondansetron HCl (Zofran Inj*) 8 mg IV Q6H PRN Reason: NAUSEA Pantoprazole Sodium (Protonix Tab*) 40 mg PO QPM [facility] Pharmacy Profile Note (Fentanyl Patch Check Q Shift) 1 note FOLLOW UP 0700, 1900 [facility] Prochlorperazine Edisylate (Compazine Inj*) 5 mg IV Q6H PRN Reason: NAUSEA Sodium Bicarbonate (Sodium Bicarbonate (Antacid)*) 2,600 mg PO QID [facility] Vital Signs - 8 hr 05/21/18 05/21/18 05/21/18 03:51 05:53 07:23 Temperature 97.3 F Pulse Rate 116 Respiratory 20 17 16 Rate Blood Pressure 147/54 (mmHg) O2 Sat by Pulse 90 Oximetry 05/21/18 05/21/18 05/21/18 07:43 08:27 10:02 Temperature Pulse Rate 110 Respiratory 19 20 16 Rate Blood Pressure (mmHg) O2 Sat by Pulse 96 Oximetry 05/21/18 05/21/18 05/21/18 10:03 10:10 11:02 Temperature Pulse Rate Respiratory 16 16 20 Rate Blood Pressure (mmHg) O2 Sat by Pulse Oximetry Oxygen Devices in Use Now: Nasal Cannula Appearance: NAD, laying in bed Ears/Nose/Mouth/Throat: Mucous Membranes Moist Skin: - - See skin note below Neurological: Alert and Oriented x 3 Result Diagrams: 05/27/18 00:20 05/27/18 08:53 Skin Deviation Note - Skin Deviation Findings Right medial thigh - The skin is dry with purplish discoloration. There are areas of induration. Left lateral thigh - The distal and more anterior lesion, measures 3 cm x 2 cm x 0.1 cm. The wound base is red and pink. The surrounding skin is intact, no drainage noted. The distal and more lateral lesion, measures 7.8 cm x 3 cm. The wound base is a black eschar. The surrounding skin is a purplish discoloration. No drainage noted. The proximal and lateral lesion, measures 8.5 cm x 1.8 cm x 0.1 cm. The wound base is pink/red and black eschar. There is no drainage noted. The surrounding skin is a purplish discoloration. (The most proximal wound partially seen in the picture is seen and described below). Left lateral upper thigh/hip - Lesion measures 20 cm x 9.5 cm. The wound base is a black eschar. The surrounding skin is intact with a purplish discoloration and areas of induration. No drainage noted. Left medial thigh - The proximal and more anterior lesion, measures 2 cm x 3.3 cm. This lesion is boggy and appears to be fluid filled. The surrounding skin is intact. No drainage noted. The lower more distal and medial lesion has a healing incision near the top from a biopsy. There are 2 sutures intact. This lesion measures 6.5 cm x 6.3 cm. The surrounding skin is intact with purplish discoloration. The area has induration. Left medial lower leg - There is purplish discoloration and area of induration distal to the knee. Right lateral thigh - Most proximal lesion, measures 2.5 cm x 1.5 cm x 0.1 cm. The proximal and more lateral lesion, measures 4 cm x 1.2 cm x 0.1 cm. Center lateral lesion, measures 2.5 cm x 2.5 cm x 0.1 cm. The wound bed is pink. The surrounding skin is intact with purplish discoloration. Distal cluster of lesions, measuring 5 cm x 6.5 cm. The wound beds are a dark eschar. The surrounding skin is intact with a purplish discoloration and areas of induration. Right lateral hip -The proximal and more anterior lesion, measures 2.5 cm x 4.5 cm x 0.1 cm. The wound base is dry and red with a small amount of black eschar. The larger and more lateral lesion, measures 13.3 cm x 2.7 cm x 0.1 cm. The wound base is dry and red with a small amount of black and yellow dry eschar. There is no drainage. The surrounding skin is intact with purplish discoloration. Sacrum/lower back - Lesion measures 13.5 cm x 12.5 cm. The wound base is mostly dry black eschar. There is some superficial open areas surrounding the majority of the eschar, this tissue is pink. There is no drainage notes. The surrounding skin is intact. Buttocks - Right buttock open area, measures 2 cm x 2 cm x 0.1 cm. The wound base is pink. The surrounding skin is intact. No drainage noted. Left buttock open area, measures 2.7 cm x 1 cm x 0.1 cm. The wound base is pink. The surrounding skin is intact. No drainage noted. Assessment/Plan: Ms. Wright is a 37 year old female with multiple medical problems including ESRD on PD, calciphylaxis, chronic GI bleed, diffuse PVD, and DM2 who presented to the hospital with multiple lesions from calciphylaxis. 1. Multiple lesions to LEs and buttocks. These are secondary to calciphylaxis. Recommend leaving the areas open to air. 2. Excoriated buttocks. Secondary to frequent loose stools. This area is improving from last week. Apply barrier cream to the buttocks. She can use her own Calazime if she wants. 3. Calciphylaxis. Management per primary medicine team and nephrology. 4. Diabetes Mellitus, type 2. Maintain good glycemic control to allow for wound healing. 5. Diet. Consistent carbohydrate, renal diet. 6. Code Status. Full code. 7. Disposition. Disposition per primary medicine team. TIME SPENT: Time for this wound consultation was 30 minutes and 20 minutes was spent with the patient discussing past medical history, assessing, measuring and photographing the wounds. Wound Problem/Plan Is Patient a Wound Clinic Patient: No Attending: Freda Prasad
--- NOTE | 2018-05-21 14:06 | PN ---
Subjective Date of Service: 05/21/18 Family History: Findings - Father age 49 of [place], mother has diabetes Social History: Findings - Disabled, lives with male partner Moreno, who is HCP, smokes 1/2 PPD, no alcohol or drug use Past Medical History: Findings - ESRD on peritoneal dialysis, anemia of renal disease and blood loss, severe COPD, Type 2 diabetes, GERD, CAD, hypertension, hyperlipidemia, diabetic gastroparesis, HIT; PSH: excision melanoma from vulva, stent to RT SFA, stent to R brachial artery, LT eye enucleation, RT foor transmetatarsal amp Objective Active Medications: Acetaminophen (Tylenol Tab*) 650 mg PO Q6H PRN PRN Reason: Fever/Pain Al Hydrox/Mg Hydrox/Simethicone (Maalox Plus*) 30 ml PO Q6H PRN PRN Reason: DYSPEPSIA Albuterol (Ventolin 2.5 Mg/3 Ml Neb.Kaylynn*) 2.5 mg INH Q4HR PRN PRN Reason: SOB/WHEEZING Last Admin: 05/21/18 08:25 Dose: 2.5 mg Aspirin (Aspirin Ec Tab*) 81 mg PO DAILY [facility] Last Admin: 05/21/18 10:02 Dose: 81 mg Bethanechol Chloride (Urecholine Tab*) 25 mg PO QID [facility] Last Admin: 05/21/18 13:09 Dose: 25 mg Calcitriol (Rocaltrol Cap*) 0.25 mcg PO TID [facility] Last Admin: 05/21/18 13:10 Dose: 0.25 mcg Dextrose (D50w Syringe 50 Ml*) 12.5 gm IV PUSH .FOR FS < 60 - SS PRN PRN Reason: FS < 60 Dronabinol (Marinol Cap*) 5 mg PO TID [facility] Last Admin: 05/21/18 13:10 Dose: 5 mg Duloxetine HCl (Cymbalta Cap*) 30 mg PO DAILY [facility] Last Admin: 05/21/18 10:04 Dose: 30 mg Epoetin Darci (Retacrit) 4,000 unit SUBCUT MOWEFR [facility] Last Admin: 05/21/18 10:04 Dose: 4,000 unit Fentanyl (Duragesic Patch 50 Mcg/Hr*) 50 mcg TRANSDERM Q72H [facility] Last Admin: 05/21/18 04:18 Dose: Not Given Gabapentin (Neurontin Cap(*)) 200 mg PO TID [facility] Last Admin: 05/21/18 13:11 Dose: 200 mg Hydromorphone HCl (Dilaudid Inj1s*) 1 mg IV SLOW PU Q3H PRN PRN Reason: PAIN Last Admin: 05/21/18 11:02 Dose: 1 mg Sodium Thiosulfate 25 gm/ (Sodium Chloride) 200 mls @ 200 mls/hr IV SuMoWeFr [facility] Insulin Human Lispro (Humalog*) 0 units SUBCUT ACHS [facility]; Protocol Last Admin: 05/21/18 13:13 Dose: 1 unit Lidocaine HCl (Lidocaine 2% Jelly*) 1 applic TOPICAL TID [facility] Last Admin: 05/21/18 10:04 Dose: 1 applic Lorazepam (Ativan Inj*) 1 mg IV PUSH Q6H PRN PRN Reason: ANXIETY Losartan Potassium (Cozaar Tab*) 25 mg PO DAILY [facility] Last Admin: 05/21/18 10:04 Dose: 25 mg Methadone HCl (Dolophine Tab*) 10 mg PO Q12HR [facility] Last Admin: 05/21/18 10:10 Dose: 10 mg Midodrine (Midodrine (Nf)) 10 mg PO QID [facility]; Protocol Last Admin: 05/21/18 13:10 Dose: 10 mg Mometasone Furoate/Formoterol Fumar (Dulera 200/5 Mdi*) 2 puff INH BID [facility] Last Admin: 05/21/18 08:22 Dose: 2 puff Mupirocin (Bactroban 2 % Oint*) 1 applic TOPICAL BID [facility] Last Admin: 05/21/18 10:01 Dose: 1 applic Ondansetron HCl (Zofran Inj*) 8 mg IV Q6H PRN PRN Reason: NAUSEA Pantoprazole Sodium (Protonix Tab*) 40 mg PO QPM [facility] Pharmacy Profile Note (Fentanyl Patch Check Q Shift) 1 note FOLLOW UP 0700, 1900 [facility] Last Admin: 05/21/18 05:54 Dose: Not Given Prochlorperazine Edisylate (Compazine Inj*) 5 mg IV Q6H PRN PRN Reason: NAUSEA Sodium Bicarbonate (Sodium Bicarbonate (Antacid)*) 2,600 mg PO QID [facility] Last Admin: 05/21/18 13:09 Dose: 2,600 mg Vital Signs - 8 hr 05/21/18 05/21/18 05/21/18 07:23 07:43 08:27 Temperature 97.3 F Pulse Rate 116 110 Respiratory 16 19 20 Rate Blood Pressure 147/54 (mmHg) O2 Sat by Pulse 90 96 Oximetry 05/21/18 05/21/18 05/21/18 09:39 10:02 10:03 Temperature Pulse Rate Respiratory 18 16 16 Rate Blood Pressure (mmHg) O2 Sat by Pulse Oximetry 05/21/18 05/21/18 05/21/18 10:10 11:02 13:05 Temperature Pulse Rate 114 Respiratory 16 20 Rate Blood Pressure 110/81 (mmHg) O2 Sat by Pulse Oximetry 05/21/18 05/21/18 13:10 13:11 Temperature Pulse Rate Respiratory 16 16 Rate Blood Pressure (mmHg) O2 Sat by Pulse Oximetry Oxygen Devices in Use Now: Nasal Cannula Appearance: 37 yo F in NAD, AAOx3 Eyes: No Scleral Icterus, PERRLA Ears/Nose/Mouth/Throat: NL Teeth, Lips, Gums, Mucous Membranes Moist Neck: NL Appearance and Movements; NL JVP, Trachea Midline Respiratory: Symmetrical Chest Expansion and Respiratory Effort, - - crackles at b/l bases Cardiovascular: NL Sounds; No Murmurs; No JVD, RRR Abdominal: NL Sounds; No Tenderness; No Distention, - - peritoneal dialysis ongoing during exam Lymphatic: No Cervical Adenopathy Extremities: No Clubbing, Cyanosis, - - s/p R TMA-stump healed Skin: - - large necrotic ban like lesio at approx 10 cm in width that begins on one thigh and cirumferentialy crosses via bcak to another thigh. R calf superficial lesions due to calcifilaxis. R 3+4 fingers with mild bluish hue to them, no cyanosis Neurological: Alert and Oriented x 3, NL Muscle Strength and Tone Result Diagrams: 05/20/18 23:14 05/20/18 23:14 Assess/Plan/Problems-Billing Assessment: 37 year old with multiple medical problems including ESRD, on PD, calciphylaxis , chronic GI bleed, diffuse PVD - Patient Problems (1) GI bleed Comment: - Source is unclear, ischemic colitis was suspected on 05/16/18 in this pt with known vascular disease. - hemoglobin stable and partially related to ESRD -poor endoscopy candidate -no signs or symptoms of acuet bleed today. (2) PAD (peripheral artery disease) Comment: - Recent CT Aorta with run off this admission with moderate-severe R common femoral artery stenosis, severe b/l popliteal artery stenosis, near complete occlusion of distal L superficial fem artery stent. - as per dopplers of b/l UE's obtained at [facility] on 05/20/18 pt had good biphasic waves of b/l radial and ulnar arteries, but significant stenosis of all 5 fingers on R likely due to calcifilaxis. No other tx option apart for sodium thiosulfate is avaliable at this point. D/w DR. Marrufo (3) Calciphylaxis Comment: - S/p skin biopsy on 05/12 with pathology confirmation. - cont IV sodium thiosulfate infusions - Continue to monitor for hypotension. (4) Acidosis Comment: due to renal disease, cont sodium bicarb supplementation PO (5) Acute respiratory failure with hypoxia Comment: - Acute on chronic hypoxemic respiratory failure. - She was back to her baseline O2 requirement of 5L continuously, extubated . Thought to be from PNA and volume overload causing pulm congestion. - Completed 7 days of Zosyn. - Continue Dulera and bronchodilators. (6) Bleeding disorder Comment: - Concern for DIC with her h/o epistaxis, vaginal bleeding (in the setting of Warfarin use), and GI bleed . today no active GI bleeding noted. Pt had maroon stool yesterday. - PT/PTT are prolonged, d-dimer elevated, but fibrinogen is also high. - No signs of active bleeding now (but stool at H heme+), platelets are normal. (7) Secondary hyperparathyroidism of renal origin Comment: - Phos 4.7, calcium 6.2 (corrected 7.6), 25-vitamin D <7.0, PTH 85. - Phosphorus is normal. - Corrected Calcium is >7.5. - Continue Calcitriol. (8) ESRD on peritoneal dialysis Comment: - Continue peritoneal dialysis. (9) IDDM (insulin dependent diabetes mellitus) Comment: - HgbA1c 8.8% - Continue Lispro SS. -holding Lantus (10) DVT prophylaxis Comment: - On coumadin INR 2-3 goal Status and Disposition: inpatient
--- NOTE | 2018-05-21 16:44 | CONSULT ---
Palliative / Hospice Consult Ordering Provider: Tash Daigle - PCP-Will - Subjective Code Status: Full Code Advance Directives Location: No Advance Directives - History or Present Illness History or Present Illness: 37yo female with DM, ESRD on PD, COPD on 5liters, calciphylax presented back to hospital since being transferred to [facility] for evaluation of R hand 3rd digit ischemia. Pt came back to [facility] for pain control. PMH is significant for GI bleed secondary to suspected chronic ischemic colitis, anemia, CAD, HTN, hyperlipidemia, HIT, diastolic CHF, chronic pain, diabetic neuropathy on metadone and gabapentin, severe PAD, GERD, anxiety and depression. H/H 7.6/23, BUN/Cr 47/7.04 egfr 6.5, alb 2.4, tprot 5.9. Pt is a smoker, non drug user & no etoh. All history is from medical records and family pt was sleepy after her dilaudid. Lab Values: Abnormal Lab Results 05/20/18 05/20/18 05/20/18 23:13 23:14 23:14 WBC 21.0 H RBC 2.73 L Hgb 7.6 L Hct 23 L MCV 85 MCH 28 MCHC 33 RDW 17 H Plt Count 392 MPV 8.2 Neut % (Auto) 89.7 Lymph % (Auto) 5.8 [place] % (Auto) 3.9 Eos % (Auto) 0.3 Baso % (Auto) 0.3 Absolute Neuts (auto) 18.8 H Absolute Lymphs (auto) 1.2 Absolute Monos (auto) 0.8 Absolute Eos (auto) 0.1 Absolute Basos (auto) 0.1 Absolute Nucleated RBC 0 Nucleated RBC % 0 Polychromasia 1+ Anisocytosis 2+ Target Cells 1+ INR (Anticoag Therapy) 1.85 H Sodium 143 Potassium 4.9 Chloride 92 L Carbon Dioxide 24 Anion Gap 27 H BUN 47 H Creatinine 7.04 H Est GFR ( Amer) 7.9 Est GFR (Non-Af Amer) 6.5 BUN/Creatinine Ratio 6.7 L Glucose 173 H POC Glucose (mg/dL) Calcium 8.0 L Total Bilirubin 0.30 AST 8 L ALT 11 Alkaline Phosphatase 181 H Total Protein 5.9 L Albumin 2.4 L Globulin 3.5 Albumin/Globulin Ratio 0.7 L 05/21/18 05/21/18 05/21/18 02:36 07:54 11:08 WBC RBC Hgb Hct MCV MCH MCHC RDW Plt Count MPV Neut % (Auto) Lymph % (Auto) [place] % (Auto) Eos % (Auto) Baso % (Auto) Absolute Neuts (auto) Absolute Lymphs (auto) Absolute Monos (auto) Absolute Eos (auto) Absolute Basos (auto) Absolute Nucleated RBC Nucleated RBC % Polychromasia Anisocytosis Target Cells INR (Anticoag Therapy) Sodium Potassium Chloride Carbon Dioxide Anion Gap BUN Creatinine Est GFR ( Amer) Est GFR (Non-Af Amer) BUN/Creatinine Ratio Glucose POC Glucose (mg/dL) 174 H 101 H 151 H Calcium Total Bilirubin AST ALT Alkaline Phosphatase Total Protein Albumin Globulin Albumin/Globulin Ratio Laboratory Last Values WBC 21.0 10^3/uL (3.5-10.8) H 05/20/18 23:14 RBC 2.73 10^6 /uL (3.70-4.87) L 05/20/18 23:14 Hgb 7.6 g/dL (12.0-16.0) L 05/20/18 23:14 Hct 23 % (33-41) L 05/20/18 23:14 MCV 85 fL (80-97) 05/20/18 23:14 MCH 28 pg (27-31) 05/20/18 23:14 MCHC 33 g/dL (31-36) 05/20/18 23:14 RDW 17 % (10.5-15) H 05/20/18 23:14 Plt Count 392 10^3/uL (150-450) 05/20/18 23:14 MPV 8.2 fL (7.4-10.4) 05/20/18 23:14 Neut % (Auto) 89.7 % 05/20/18 23:14 Lymph % (Auto) 5.8 % 05/20/18 23:14 [place] % (Auto) 3.9 % 05/20/18 23:14 Eos % (Auto) 0.3 % 05/20/18 23:14 Baso % (Auto) 0.3 % 05/20/18 23:14 Absolute Neuts (auto) 18.8 10^3/ul (1.5-7.7) H 05/20/18 23:14 Absolute Lymphs (auto) 1.2 10^3/ul (1.0-4.8) 05/20/18 23:14 Absolute Monos (auto) 0.8 10^3/ul (0-0.8) 05/20/18 23:14 Absolute Eos (auto) 0.1 10^3/ul (0-0.6) 05/20/18 23:14 Absolute Basos (auto) 0.1 10^3/ul (0-0.2) 05/20/18 23:14 Absolute Nucleated RBC 0 10^3/ul 05/20/18 23:14 Nucleated RBC % 0 05/20/18 23:14 Polychromasia 1+ 05/20/18 23:14 Anisocytosis 2+ 05/20/18 23:14 Target Cells 1+ 05/20/18 23:14 INR (Anticoag Therapy) 1.85 (0.77-1.02) H 05/20/18 23:13 Sodium 143 mmol/L (135-145) 05/20/18 23:14 Potassium 4.9 mmol/L (3.5-5.0) 05/20/18 23:14 Chloride 92 mmol/L (101-111) L 05/20/18 23:14 Carbon Dioxide 24 mmol/L (22-32) 05/20/18 23:14 Anion Gap 27 mmol/L (2-11) H 05/20/18 23:14 BUN 47 mg/dL (6-24) H 05/20/18 23:14 Creatinine 7.04 mg/dL (0.51-0.95) H 05/20/18 23:14 Est GFR ( Amer) 7.9 (>60) 05/20/18 23:14 Est GFR (Non-Af Amer) 6.5 (>60) 05/20/18 23:14 BUN/Creatinine Ratio 6.7 (8-20) L 05/20/18 23:14 Glucose 173 mg/dL (70-100) H 05/20/18 23:14 POC Glucose (mg/dL) 151 mg/dL (70-100) H 05/21/18 11:08 Calcium 8.0 mg/dL (8.6-10.3) L 05/20/18 23:14 Total Bilirubin 0.30 mg/dL (0.2-1.0) 05/20/18 23:14 AST 8 U/L (13-39) L 05/20/18 23:14 ALT 11 U/L (7-52) 05/20/18 23:14 Alkaline Phosphatase 181 U/L (34-104) H 05/20/18 23:14 Total Protein 5.9 g/dL (6.4-8.9) L 05/20/18 23:14 Albumin 2.4 g/dL (3.2-5.2) L 05/20/18 23:14 Globulin 3.5 g/dL (2-4) 05/20/18 23:14 Albumin/Globulin Ratio 0.7 (1-3) L 05/20/18 23:14 - Objective Active Medications: Acetaminophen (Tylenol Tab*) 650 mg PO Q6H PRN PRN Reason: Fever/Pain Al Hydrox/Mg Hydrox/Simethicone (Maalox Plus*) 30 ml PO Q6H PRN PRN Reason: DYSPEPSIA Albuterol (Ventolin 2.5 Mg/3 Ml Neb.Kaylynn*) 2.5 mg INH Q4HR PRN PRN Reason: SOB/WHEEZING Last Admin: 05/21/18 08:25 Dose: 2.5 mg Aspirin (Aspirin Ec Tab*) 81 mg PO DAILY [facility] Last Admin: 05/21/18 10:02 Dose: 81 mg Bethanechol Chloride (Urecholine Tab*) 25 mg PO QID [facility] Last Admin: 05/21/18 13:09 Dose: 25 mg Calcitriol (Rocaltrol Cap*) 0.25 mcg PO TID [facility] Last Admin: 05/21/18 13:10 Dose: 0.25 mcg Dextrose (D50w Syringe 50 Ml*) 12.5 gm IV PUSH .FOR FS < 60 - SS PRN PRN Reason: FS < 60 Dronabinol (Marinol Cap*) 5 mg PO TID [facility] Last Admin: 05/21/18 13:10 Dose: 5 mg Duloxetine HCl (Cymbalta Cap*) 30 mg PO DAILY [facility] Last Admin: 05/21/18 10:04 Dose: 30 mg Epoetin Darci (Retacrit) 4,000 unit SUBCUT MOWEFR [facility] Last Admin: 05/21/18 10:04 Dose: 4,000 unit Fentanyl (Duragesic Patch 50 Mcg/Hr*) 50 mcg TRANSDERM Q72H [facility] Last Admin: 05/21/18 15:00 Dose: 50 mcg Gabapentin (Neurontin Cap(*)) 200 mg PO TID [facility] Last Admin: 05/21/18 13:11 Dose: 200 mg Hydromorphone HCl (Dilaudid Inj1s*) 1 mg IV SLOW PU Q3H PRN PRN Reason: PAIN Last Admin: 05/21/18 15:02 Dose: 1 mg Sodium Thiosulfate 25 gm/ (Sodium Chloride) 200 mls @ 200 mls/hr IV SuMoWeFr [facility] Insulin Human Lispro (Humalog*) 0 units SUBCUT ACHS [facility]; Protocol Last Admin: 05/21/18 13:13 Dose: 1 unit Lidocaine HCl (Lidocaine 2% Jelly*) 1 applic TOPICAL TID [facility] Last Admin: 05/21/18 15:02 Dose: Not Given Lorazepam (Ativan Inj*) 1 mg IV PUSH Q6H PRN PRN Reason: ANXIETY Losartan Potassium (Cozaar Tab*) 25 mg PO DAILY [facility] Last Admin: 05/21/18 10:04 Dose: 25 mg Methadone HCl (Dolophine Tab*) 10 mg PO Q12HR [facility] Last Admin: 05/21/18 10:10 Dose: 10 mg Midodrine (Midodrine (Nf)) 10 mg PO QID [facility]; Protocol Last Admin: 05/21/18 13:10 Dose: 10 mg Mometasone Furoate/Formoterol Fumar (Dulera 200/5 Mdi*) 2 puff INH BID [facility] Last Admin: 05/21/18 08:22 Dose: 2 puff Mupirocin (Bactroban 2 % Oint*) 1 applic TOPICAL BID [facility] Last Admin: 05/21/18 10:01 Dose: 1 applic Ondansetron HCl (Zofran Inj*) 8 mg IV Q6H PRN PRN Reason: NAUSEA Pantoprazole Sodium (Protonix Tab*) 40 mg PO QPM [facility] Pharmacy Profile Note (Fentanyl Patch Check Q Shift) 1 note FOLLOW UP 0700, 1900 [facility] Last Admin: 05/21/18 05:54 Dose: Not Given Prochlorperazine Edisylate (Compazine Inj*) 5 mg IV Q6H PRN PRN Reason: NAUSEA Sodium Bicarbonate (Sodium Bicarbonate (Antacid)*) 2,600 mg PO QID [facility] Last Admin: 05/21/18 13:09 Dose: 2,600 mg Vital Signs: Vital Signs: Temp Pulse Resp BP Pulse Ox 97.3 F 114 16 110/81 96 05/21/18 07:23 05/21/18 13:05 05/21/18 15:02 05/21/18 13:05 05/21/18 08:27 Patient Weight: Weight 91.172 kg Intake and Output: Intake & Output 05/19/18 05/20/18 05/21/18 05/22/18 06:59 06:59 06:59 06:59 Intake Total 0 820 Balance 0 820 Weight 91.172 kg Intake: Oral 0 820 ADLs: Meal Record Start: 05/21/18 02: 57 Freq: DAILY@0900,1400,1800 Status: Active Protocol: Created 05/21/18 02:57 System (Rec: 05/21/18 02:57 System MED-C15) Document 05/21/18 09:00 [id number] (Rec: 05/21/18 09:34 [id number] MED-C09) Document 05/21/18 13:48 [id number] (Rec: 05/21/18 13:49 [id number] MED-C11) Intake and Output Start: 05/20/18 19: 56 Freq: Status: Active Protocol: Created 05/20/18 19:56 System (Rec: 05/20/18 19:56 System ED-C24) Intake and Output Start: 05/21/18 02: 57 Freq: DAILY@0600,1400,2200 Status: Active Protocol: Created 05/21/18 02:57 System (Rec: 05/21/18 02:57 System MED-C15) Document 05/21/18 04:48 [id number] (Rec: 05/21/18 04:48 [id number] MED-C09) Head: Normal Eyes: No Scleral Icterus, - - strabismus Ears/Nose/Mouth/Throat: - - dry mouth, poor dentition Neck: NL Appearance and Movements; NL JVP Abdominal: - - PD catheter in place umbilicus, distended, +BS, no masses - Assessment Assessment: 37 yo female with multiple medical problems who is eligible for hospice but she is not interested - Plan Consult Plan (MU): Palliative Plan: Spoke with pt, boyfriend Moreno (HCP) and Moreno's sister. Pt didn't contribute much due to just getting her dilaudid dose. Sister of HCP was asking about a clinical trial on [employer] [id number] instead of using Thiosulfate. I discussed pt's poor prognosis and quality of life but both Moreno and her sister reiterated that pt is a fighter and doesn't want to consider hospice. They said she was even considering changing to hemodialysis from the peritoneal. Stressed that hospice is excellent for symptom control but they declined. KPS 30% PPS 30% - Time On Unit Date of Evaluation: 05/21/18 Hospice Consult Time in: 03:30 Hospice Consult Time Out: 04:30 Hospice Consult Time Total: 60 > 50% of Time Spend In Counseling or Coordinating Care: Yes
[2018-05-21] MEDS ORDERED: HYDROmorphone INJ1* 1 MG/ML SYRINGE IV SLOW PU ONE (17:08)
[2018-05-21] MEDS: Pantoprazole TAB * 40 MG TAB PO SCH (17:38)
--- NOTE | 2018-05-21 20:00 | CONSULT ---
Consult Consult: INPATIENT PAIN CONSULTATION Margaux Wright is known to me from her last admission. She has ESRD and diabetes and is on peritoneal dialysis. She has longstanding diabetic peripheral neuropathy and was on Methadone for that prior to this year. She was admitted to [facility] on April 29 of this year with extreme pain in her legs. She was diagnosed with calciphylaxis. I saw her on May 08. At that time I put her on routine Methadone 10 mg PO Q8H and IV dilaudid. SHe went to the ICU for a GI bleed, and her methadone was cut back after she developed confusion. She was transferred to [facility] on May 19 for a vascular surgery opinion regarding blood flow to her LEs. She left AMA and returned to [facility] yesterday. She had been advised by Dr. Marrufo to switch to HD from PD but refused. She is in significant pain. She has been seen by palliative care but told them she is not ready to consider hospice. I am asked to see her for pain control. She is on Methadone, 10 mg BID, Fentanyl transdermal, 50 mcg/hr and Dilaudid 1 mg IV Q3 PRN, Marinol, Gabapentin. Her prognosis is thought to be poor. PAST MEDICAL HISTORY: ESRD, DM, PVD, multiple vascular procedures including stents and angioplaties; calciphylaxis, GERD, GI Bleed Allergies Allergy/AdvReac Type Severity Reaction Status Date / Time Adhesive Tape [Plastic Tape] Allergy Mild Blisters Verified 04/14/18 12:05 chlorhexidine Allergy Rash Verified 05/05/18 19:17 doxycycline Allergy Unknown Verified 04/14/18 12:05 Reaction Details erythromycin base Allergy See Comment Verified 04/14/18 12:05 heparin Allergy See Comment Verified 04/14/18 12:05 metoclopramide [From Reglan] Allergy Hives Verified 04/14/18 12:05 niacin Allergy Rash Verified 04/14/18 12:05 ropinirole [From Requip] Allergy Hives Verified 04/14/18 12:05 metronidazole [From Flagyl] AdvReac Nausea And Verified 04/21/18 13:15 Vomiting Current Medications Acetaminophen (Tylenol Tab*) 650 mg PO Q6H PRN PRN Reason: Fever/Pain Al Hydrox/Mg Hydrox/Simethicone (Maalox Plus*) 30 ml PO Q6H PRN PRN Reason: DYSPEPSIA Albuterol (Ventolin 2.5 Mg/3 Ml Neb.Kaylynn*) 2.5 mg INH Q4HR PRN PRN Reason: SOB/WHEEZING Last Admin: 05/21/18 08:25 Dose: 2.5 mg Aspirin (Aspirin Ec Tab*) 81 mg PO DAILY [facility] Last Admin: 05/21/18 10:02 Dose: 81 mg Bethanechol Chloride (Urecholine Tab*) 25 mg PO QID [facility] Last Admin: 05/21/18 17:38 Dose: 25 mg Calcitriol (Rocaltrol Cap*) 0.25 mcg PO TID [facility] Last Admin: 05/21/18 13:10 Dose: 0.25 mcg Dextrose (D50w Syringe 50 Ml*) 12.5 gm IV PUSH .FOR FS < 60 - SS PRN PRN Reason: FS < 60 Dronabinol (Marinol Cap*) 5 mg PO TID [facility] Last Admin: 05/21/18 13:10 Dose: 5 mg Duloxetine HCl (Cymbalta Cap*) 30 mg PO DAILY [facility] Last Admin: 05/21/18 10:04 Dose: 30 mg Epoetin Darci (Retacrit) 4,000 unit SUBCUT MOWEFR [facility] Last Admin: 05/21/18 10:04 Dose: 4,000 unit Fentanyl (Duragesic Patch 50 Mcg/Hr*) 50 mcg TRANSDERM Q72H [facility] Last Admin: 05/21/18 15:00 Dose: 50 mcg Gabapentin (Neurontin Cap(*)) 200 mg PO TID [facility] Last Admin: 05/21/18 13:11 Dose: 200 mg Hydromorphone HCl (Dilaudid Inj1s*) 1 mg IV SLOW PU Q3H PRN PRN Reason: PAIN Last Admin: 05/21/18 15:02 Dose: 1 mg Sodium Thiosulfate 25 gm/ (Sodium Chloride) 200 mls @ 200 mls/hr IV SuMoWeFr [facility] Insulin Human Lispro (Humalog*) 0 units SUBCUT ACHS [facility]; Protocol Last Admin: 05/21/18 18:08 Dose: Not Given Lidocaine HCl (Lidocaine 2% Jelly*) 1 applic TOPICAL TID [facility] Last Admin: 05/21/18 15:02 Dose: Not Given Lorazepam (Ativan Inj*) 1 mg IV PUSH Q6H PRN PRN Reason: ANXIETY Losartan Potassium (Cozaar Tab*) 25 mg PO DAILY [facility] Last Admin: 05/21/18 10:04 Dose: 25 mg Methadone HCl (Dolophine Tab*) 10 mg PO Q12HR [facility] Last Admin: 05/21/18 10:10 Dose: 10 mg Midodrine (Midodrine (Nf)) 10 mg PO QID [facility]; Protocol Last Admin: 05/21/18 17:38 Dose: 10 mg Mometasone Furoate/Formoterol Fumar (Dulera 200/5 Mdi*) 2 puff INH BID [facility] Last Admin: 05/21/18 19:36 Dose: Not Given Mupirocin (Bactroban 2 % Oint*) 1 applic TOPICAL BID [facility] Last Admin: 05/21/18 10:01 Dose: 1 applic Ondansetron HCl (Zofran Inj*) 8 mg IV Q6H PRN PRN Reason: NAUSEA Pantoprazole Sodium (Protonix Tab*) 40 mg PO QPM [facility] Last Admin: 05/21/18 17:38 Dose: 40 mg Pharmacy Profile Note (Fentanyl Patch Check Q Shift) 1 note FOLLOW UP 0700, 1900 [facility] Last Admin: 05/21/18 19:26 Dose: 1 note Prochlorperazine Edisylate (Compazine Inj*) 5 mg IV Q6H PRN PRN Reason: NAUSEA Sodium Bicarbonate (Sodium Bicarbonate (Antacid)*) 2,600 mg PO QID [facility] Last Admin: 05/21/18 17:38 Dose: 2,600 mg SOCIAL HISTORY: Non smoker, no alcohol. Lives with her boyfriend Vital Signs Temp Pulse Resp BP Pulse Ox 97.3 F 114 20 110/81 96 05/21/18 07:23 05/21/18 13:05 05/21/18 17:38 05/21/18 13:05 05/21/18 08:27 EXAM: LUNGS: Coarse BS HEART: reg rhythm ABDOMEN: Soft EXTREMITIES: Wounds over her legs ASSESSMENT: 1. Calciphylaxis 2. ESRD on PD 3. Chronic diabetic neuropathy PLAN: Given her poor prognosis, will liberalize her dilaudid. Not sure if Methadone helping, but does not need both methadone and fentanyl (2 different EMIRATI). Will add oxycodone, and decrease methadone. I will follow
[2018-05-21] MEDS ORDERED: oxyCODONE TAB* 5 MG TAB PO PRN (20:12)
[2018-05-21] MEDS: Methadone TAB* 10 MG PO SCH (20:51)
[2018-05-21] MEDS ORDERED: Insulin GLARGINE(*) 1 UNITS UNIT SUBCUT SCH (21:00)
[2018-05-22] MEDS: Albuterol 2.5 MG/3 ML NEB.SOL* (0.083%) INH PRN ×2 (00:59→23:02)
[2018-05-22] MEDS: HYDROmorphone INJ1* 1 MG/ML SYRINGE IV SLOW PU PRN ×7 (01:15→22:33)
[2018-05-22] MEDS ORDERED: Albuterol 2.5 MG/3 ML NEB.SOL* (0.083%) INH ONE (02:58)
[2018-05-22] MEDS: Albuterol 2.5 MG/3 ML NEB.SOL* (0.083%) INH SCH ×4 (03:03→10:46)
--- NOTE | 2018-05-22 03:17 | PN ---
Hospitalist Progress Note Date of Service: 05/22/18 HOSPITALIST ADDENDUM Called by RN because patient was c/o dyspnea. Seen at bedside, lying in bed in NAD, getting nebulizer treatment. On her usual 5 liters of O2. CVS: normal S1 and S2, RRR Chest: BS+ bilaterally with diffuse wheezing. CxR: to my read, no acute pulmonary disease. A/P: - continue bronchodilators.
[2018-05-22] MEDS: Ondansetron INJ* 2 MG/ML VIAL IV PRN (04:55)
[2018-05-22] MEDS: Mometasone/Formoter 200/5 MDI INH SCH ×2 (08:12→19:50)
[2018-05-22] MEDS: fentaNYL Patch Check Q Shift 1 NOTE FOLLOW UP SCH ×3 (08:23→19:00)
[2018-05-22] MEDS: Calcitriol CAP* 0.25 MCG PO SCH (09:18)
[2018-05-22] MEDS: Lidocaine 2% JELLY* 6 ML JELLY TOPICAL SCH ×3 (09:18→22:03)
[2018-05-22] MEDS: Sodium Bicarbonate (ANTACID)* 650 MG TAB PO SCH ×4 (09:19→21:20)
[2018-05-22] MEDS: Methadone TAB* 10 MG PO SCH ×2 (09:19→21:20)
[2018-05-22] MEDS: Bethanechol TAB* 25 MG PO SCH ×4 (09:19→21:20)
[2018-05-22] MEDS: Dronabinol CAP* 2.5 MG PO SCH ×3 (09:19→21:21)
[2018-05-22] MEDS: CMCS:Midodrine (NF) 5 MG TAB PO SCH ×4 (09:21→21:20)
[2018-05-22] MEDS: Gabapentin CAP(*) 100 MG PO SCH ×3 (09:21→21:21)
[2018-05-22] MEDS: Losartan TAB* 25 MG PO SCH (09:21)
[2018-05-22] MEDS: DULoxetine DR CAP* 30 MG CAP.DR PO SCH (09:21)
[2018-05-22] MEDS: Aspirin EC TAB* 81 MG TAB.EC PO SCH (09:22)
[2018-05-22] MEDS: PROCHLORPERAZINE INJ 5 MG/ML 2 ML VIAL IV PRN (10:46)
[2018-05-22] MEDS: Insulin LISPRO* 1 UNITS UNIT SUBCUT SCH ×4 (11:19→21:19)
--- NOTE | 2018-05-22 12:01 | PN ---
Subjective Date of Service: 05/22/18 Interval History: Pt was noted to have 02 sat at 80%, sounded congested, lethargic. CXR at night showed pulm edema. D/w nephrology: pt does not make urine, but dilaysate will be changed to take more fluid off. will transfer pt to ICU. she refuses BIPAP. will start Vapotherm. Family History: Findings - Father age 49 of [place], mother has diabetes Social History: Findings - Disabled, lives with male partner Moreno, who is HCP, smokes 1/2 PPD, no alcohol or drug use Past Medical History: Findings - ESRD on peritoneal dialysis, anemia of renal disease and blood loss, severe COPD, Type 2 diabetes, GERD, CAD, hypertension, hyperlipidemia, diabetic gastroparesis, HIT; PSH: excision melanoma from vulva, stent to RT SFA, stent to R brachial artery, LT eye enucleation, RT foor transmetatarsal amp Objective Active Medications: Acetaminophen (Tylenol Tab*) 650 mg PO Q6H PRN PRN Reason: Fever/Pain Al Hydrox/Mg Hydrox/Simethicone (Maalox Plus*) 30 ml PO Q6H PRN PRN Reason: DYSPEPSIA Albuterol (Ventolin 2.5 Mg/3 Ml Neb.Kaylynn*) 2.5 mg INH Q2HR PRN PRN Reason: SOB/WHEEZING Aspirin (Aspirin Ec Tab*) 81 mg PO DAILY [facility] Last Admin: 05/22/18 09:22 Dose: 81 mg Bethanechol Chloride (Urecholine Tab*) 25 mg PO QID [facility] Last Admin: 05/22/18 09:19 Dose: 25 mg Dextrose (D50w Syringe 50 Ml*) 12.5 gm IV PUSH .FOR FS < 60 - SS PRN PRN Reason: FS < 60 Dronabinol (Marinol Cap*) 5 mg PO TID [facility] Last Admin: 05/22/18 09:19 Dose: 5 mg Duloxetine HCl (Cymbalta Cap*) 30 mg PO DAILY [facility] Last Admin: 05/22/18 09:21 Dose: 30 mg Epoetin Darci (Retacrit) 4,000 unit SUBCUT MOWEFR [facility] Last Admin: 05/21/18 10:04 Dose: 4,000 unit Fentanyl (Duragesic Patch 50 Mcg/Hr*) 50 mcg TRANSDERM Q72H [facility] Last Admin: 05/21/18 15:00 Dose: 50 mcg Gabapentin (Neurontin Cap(*)) 200 mg PO TID [facility] Last Admin: 05/22/18 09:21 Dose: 200 mg Hydromorphone HCl (Dilaudid Inj1s*) 2 mg IV SLOW PU Q2H PRN PRN Reason: PAIN - SEVERE Last Admin: 05/22/18 08:35 Dose: 2 mg Sodium Thiosulfate 25 gm/ (Sodium Chloride) 200 mls @ 200 mls/hr IV SuMoWeFr [facility] Insulin Human Lispro (Humalog*) 0 units SUBCUT ACHS [facility]; Protocol Last Admin: 05/22/18 11:19 Dose: Not Given Lidocaine HCl (Lidocaine 2% Jelly*) 1 applic TOPICAL TID [facility] Last Admin: 05/22/18 09:18 Dose: 1 applic Lorazepam (Ativan Inj*) 1 mg IV PUSH Q6H PRN PRN Reason: ANXIETY Losartan Potassium (Cozaar Tab*) 25 mg PO DAILY [facility] Last Admin: 05/22/18 09:21 Dose: 25 mg Methadone HCl (Dolophine Tab*) 5 mg PO Q12HR [facility] Last Admin: 05/22/18 09:19 Dose: 5 mg Midodrine (Midodrine (Nf)) 10 mg PO QID [facility]; Protocol Last Admin: 05/22/18 09:21 Dose: 10 mg Mometasone Furoate/Formoterol Fumar (Dulera 200/5 Mdi*) 2 puff INH BID [facility] Last Admin: 05/22/18 08:12 Dose: 2 puff Mupirocin (Bactroban 2 % Oint*) 1 applic TOPICAL BID [facility] Last Admin: 05/21/18 21:47 Dose: 1 applic Ondansetron HCl (Zofran Inj*) 8 mg IV Q6H PRN PRN Reason: NAUSEA Last Admin: 05/22/18 04:55 Dose: 8 mg Oxycodone HCl (Roxycodone Tab*) 10 mg PO Q4H PRN PRN Reason: PAIN - MODERATE TO SEVERE Pantoprazole Sodium (Protonix Tab*) 40 mg PO QPM [facility] Last Admin: 05/21/18 17:38 Dose: 40 mg Pharmacy Profile Note (Fentanyl Patch Check Q Shift) 1 note FOLLOW UP 0700, 1900 [facility] Last Admin: 05/22/18 08:23 Dose: 1 note Prochlorperazine Edisylate (Compazine Inj*) 5 mg IV Q6H PRN PRN Reason: NAUSEA Last Admin: 05/22/18 10:46 Dose: 5 mg Sodium Bicarbonate (Sodium Bicarbonate (Antacid)*) 2,600 mg PO QID [facility] Last Admin: 05/22/18 09:19 Dose: 2,600 mg Vital Signs - 8 hr 05/22/18 05/22/18 05/22/18 04:32 04:55 05:55 Temperature Pulse Rate 74 Respiratory 18 21 18 Rate Blood Pressure (mmHg) O2 Sat by Pulse 97 Oximetry 05/22/18 05/22/18 05/22/18 07:37 08:15 08:30 Temperature 98.1 F Pulse Rate 123 111 Respiratory 20 20 Rate Blood Pressure 112/21 112/40 (mmHg) O2 Sat by Pulse 96 97 Oximetry 05/22/18 05/22/18 05/22/18 08:35 09:19 09:21 Temperature Pulse Rate Respiratory 20 18 18 Rate Blood Pressure (mmHg) O2 Sat by Pulse Oximetry 05/22/18 11:15 Temperature Pulse Rate Respiratory 18 Rate Blood Pressure (mmHg) O2 Sat by Pulse Oximetry Oxygen Devices in Use Now: High Flow Nasal Cannula Appearance: 37 yo F , tachypneic, uses accessory muscles, AAOx3 Eyes: No Scleral Icterus, PERRLA Ears/Nose/Mouth/Throat: NL Teeth, Lips, Gums, Mucous Membranes Moist Neck: NL Appearance and Movements; NL JVP Respiratory: Symmetrical Chest Expansion and Respiratory Effort, - - rales b/l Cardiovascular: NL Sounds; No Murmurs; No JVD, RRR Abdominal: NL Sounds; No Tenderness; No Distention, - - PD cath in place Lymphatic: No Cervical Adenopathy Extremities: No Clubbing, Cyanosis, - - s/p L TMA Skin: - - necrotic calcifilaxis lesions on b/l thighs, flank, fingers R hand cyanotic Neurological: Alert and Oriented x 3, NL Muscle Strength and Tone Result Diagrams: 05/20/18 23:14 05/20/18 23:14 Microbiology and Other Data: Microbiology 05/21/18 21:58 Stool Occult Blood ([facility]) - Final Stool Assess/Plan/Problems-Billing Assessment: 37 year old with multiple medical problems including ESRD, on PD, calciphylaxis , chronic GI bleed, diffuse PVD - Patient Problems (1) Acute respiratory failure with hypoxia Comment: - Acute on chronic hypoxemic respiratory failure. - She was back to her baseline O2 requirement of 5L continuously, extubated . Now back with pulm edema, will transfer to ICU on Vapotherm. Pt refuses BIPAP. at the beginning of the month she was thought to have PNA and volume overload causing pulm congestion. - Completed 7 days of Zosyn. - Continue Dulera and bronchodilators. (2) GI bleed Comment: - Source is unclear, ischemic colitis was suspected on 05/16/18 in this pt with known vascular disease. - hemoglobin stable and partially related to ESRD -poor endoscopy candidate -no signs or symptoms of acuet bleed today. (3) PAD (peripheral artery disease) Comment: - Recent CT Aorta with run off this admission with moderate-severe R common femoral artery stenosis, severe b/l popliteal artery stenosis, near complete occlusion of distal L superficial fem artery stent. - as per dopplers of b/l UE's obtained at [facility] on 05/20/18 pt had good biphasic waves of b/l radial and ulnar arteries, but significant stenosis of all 5 fingers on R likely due to calcifilaxis. No other tx option apart for sodium thiosulfate is avaliable at this point. D/w DR. Marrufo. WAs on Coumadin for PAD , stopped due to GI bleed (4) Calciphylaxis Comment: - S/p skin biopsy on 05/12 with pathology confirmation. - cont IV sodium thiosulfate infusions - Continue to monitor for hypotension. (5) Acidosis Comment: due to renal disease, cont sodium bicarb supplementation PO (6) Bleeding disorder Comment: - Concern for DIC with her h/o epistaxis, vaginal bleeding (in the setting of Warfarin use), and GI bleed . today no active GI bleeding noted. Pt had maroon stool 05/20. - PT/PTT are prolonged, d-dimer elevated, but fibrinogen is also high. - No signs of active bleeding now (but stool at [facility] heme+), platelets are normal. -coumadin stopped (7) Secondary hyperparathyroidism of renal origin Comment: - Phos 4.7, calcium 6.2 (corrected 7.6), 25-vitamin D <7.0, PTH 85. - Phosphorus is normal. - Corrected Calcium is >7.5. - Calcitriol stopped after d/w nephrology. (8) ESRD on peritoneal dialysis Comment: - Continue peritoneal dialysis. Nephrology will try to take off more fluid today (9) IDDM (insulin dependent diabetes mellitus) Comment: - HgbA1c 8.8% - Continue Lispro SS. -holding Lantus (10) DVT prophylaxis Comment: no anticoagulants due to bleeding Pt has h/o HIT SCD's Status and Disposition: inpatient
[2018-05-22] MEDS: Mupirocin 2% OINT* TUBE TOPICAL SCH ×2 (12:17→22:00)
[2018-05-22] MEDS: Pantoprazole TAB * 40 MG TAB PO SCH (17:15)
--- NOTE | 2018-05-22 22:33 | PN ---
PROGRESS NOTE: DATE OF VISIT: 05/22/18 SUBJECTIVE: The patient was seen and examined at bedside. The patient appears more exhausted today having some difficulty breathing. Reports that she did not sleep last night. Pain in her lower extremity is improved for the patient. Vitals and labs have been reviewed. PHYSICAL EXAMINATION: HEENT: NC/AT. Heart: S1, S2 present. Tachycardic at the time of exam. Lungs: Noted to have bilateral crackles. Abdomen: Soft, nontender. No rebound, no guarding. Extremities: Noted to have some edema, lesions consistent with calciphylaxis on bilateral thighs. The patient's digits appear less gangrenous compared to last week. ASSESSMENT AND PLAN: 1. End-stage renal disease, on peritoneal dialysis. The patient is noted to be volume overloaded, will switch her to 4.25% PD solution followed by 2.5% solution on the cycle for extra UF, can also increase this further to 4.25% based on her response for a short period of time if needed. I discussed PD orders with the dialysis nurse. 2. Calciphylaxis, confirmed on skin biopsy. Continue sodium thiosulfate. The patient does become hypotensive with 6 times a week use, at this time is getting it every 3 times a week. 3. Will also use PD prescription above, as the patient has been very sensitive and has become hypotensive. We will see how she does with the above PD prescription and can adjust further. 4. Other plan per the primary medical team. [id number]/[facility] #: [id number] MTDD
[2018-05-23] MEDS: Ondansetron INJ* 2 MG/ML VIAL IV PRN ×2 (03:01→12:29)
[2018-05-23] MEDS: HYDROmorphone INJ1* 1 MG/ML SYRINGE IV SLOW PU PRN ×4 (03:40→11:43)
[2018-05-23] MEDS: Albuterol 2.5 MG/3 ML NEB.SOL* (0.083%) INH PRN ×3 (03:59→11:50)
[2018-05-23] MEDS: fentaNYL Patch Check Q Shift 1 NOTE FOLLOW UP SCH ×2 (07:32→19:23)
[2018-05-23] MEDS ORDERED: Sodium Thiosulfate 25 GM in 200 ML IV SCH (08:00)
[2018-05-23] MEDS: Methadone TAB* 10 MG PO SCH (08:06)
[2018-05-23] MEDS: Dronabinol CAP* 2.5 MG PO SCH ×2 (08:07→15:06)
[2018-05-23] MEDS: CMCS:Midodrine (NF) 5 MG TAB PO SCH ×3 (08:07→18:05)
[2018-05-23] MEDS: Aspirin EC TAB* 81 MG TAB.EC PO SCH (08:08)
[2018-05-23] MEDS: Gabapentin CAP(*) 100 MG PO SCH ×2 (08:08→15:06)
[2018-05-23] MEDS: DULoxetine DR CAP* 30 MG CAP.DR PO SCH (08:08)
[2018-05-23] MEDS: Sodium Bicarbonate (ANTACID)* 650 MG TAB PO SCH ×3 (08:09→18:05)
[2018-05-23] MEDS: Bethanechol TAB* 25 MG PO SCH ×2 (08:09→15:06)
[2018-05-23] MEDS: EPOETIN ALFA-EPBX * 4,000 UNIT/ML VIAL SUBCUT SCH (08:09)
[2018-05-23] MEDS: Mupirocin 2% OINT* TUBE TOPICAL SCH ×2 (08:10→10:57)
[2018-05-23] MEDS: Lidocaine 2% JELLY* 6 ML JELLY TOPICAL SCH ×3 (08:10→15:06)
[2018-05-23] MEDS: Mometasone/Formoter 200/5 MDI INH SCH (08:13)
[2018-05-23] MEDS: Losartan TAB* 25 MG PO SCH (08:21)
[2018-05-23] MEDS: PROCHLORPERAZINE INJ 5 MG/ML 2 ML VIAL IV PRN (09:20)
[2018-05-23] MEDS: Insulin LISPRO* 1 UNITS UNIT SUBCUT SCH ×3 (09:20→17:56)
[2018-05-23] MEDS ORDERED: Insulin GLARGINE(*) 1 UNITS UNIT SUBCUT SCH (10:00)
--- NOTE | 2018-05-23 11:04 | PN ---
Subjective Date of Service: 05/23/18 Interval History: Pt 's pain is fairly controlled . Still on Vapotherm to control SOB. Family History: Findings - Father age 49 of [place], mother has diabetes Social History: Findings - Disabled, lives with male partner Moreno, who is HCP, smokes 1/2 PPD, no alcohol or drug use Past Medical History: Findings - ESRD on peritoneal dialysis, anemia of renal disease and blood loss, severe COPD, Type 2 diabetes, GERD, CAD, hypertension, hyperlipidemia, diabetic gastroparesis, HIT; PSH: excision melanoma from vulva, stent to RT SFA, stent to R brachial artery, LT eye enucleation, RT foor transmetatarsal amp Objective Active Medications: Acetaminophen (Tylenol Tab*) 650 mg PO Q6H PRN PRN Reason: Fever/Pain Al Hydrox/Mg Hydrox/Simethicone (Maalox Plus*) 30 ml PO Q6H PRN PRN Reason: DYSPEPSIA Albuterol (Ventolin 2.5 Mg/3 Ml Neb.Kaylynn*) 2.5 mg INH Q2HR PRN PRN Reason: SOB/WHEEZING Last Admin: 05/23/18 09:05 Dose: 2.5 mg Aspirin (Aspirin Ec Tab*) 81 mg PO DAILY [facility] Last Admin: 05/23/18 08:08 Dose: 81 mg Bethanechol Chloride (Urecholine Tab*) 25 mg PO QID [facility] Last Admin: 05/23/18 08:09 Dose: 25 mg Dextrose (D50w Syringe 50 Ml*) 12.5 gm IV PUSH .FOR FS < 60 - SS PRN PRN Reason: FS < 60 Dronabinol (Marinol Cap*) 5 mg PO TID [facility] Last Admin: 05/23/18 08:07 Dose: 5 mg Duloxetine HCl (Cymbalta Cap*) 30 mg PO DAILY [facility] Last Admin: 05/23/18 08:08 Dose: 30 mg Epoetin Darci (Retacrit) 4,000 unit SUBCUT MOWEFR [facility] Last Admin: 05/23/18 08:09 Dose: 4,000 unit Fentanyl (Duragesic Patch 50 Mcg/Hr*) 50 mcg TRANSDERM Q72H [facility] Last Admin: 05/21/18 15:00 Dose: 50 mcg Gabapentin (Neurontin Cap(*)) 200 mg PO TID [facility] Last Admin: 05/23/18 08:08 Dose: 200 mg Hydromorphone HCl (Dilaudid Inj1s*) 2 mg IV SLOW PU Q2H PRN PRN Reason: PAIN - SEVERE Last Admin: 05/23/18 08:07 Dose: 2 mg Sodium Thiosulfate 25 gm/ (Sodium Chloride) 200 mls @ 200 mls/hr IV SuMoWeFr [facility] Last Admin: 05/23/18 09:21 Dose: 200 mls/hr Insulin Glargine (Lantus(*)) 10 units SUBCUT Q24H [facility] Last Admin: 05/23/18 09:21 Dose: 10 unit Insulin Human Lispro (Humalog*) 0 units SUBCUT ACHS [facility]; Protocol Last Admin: 05/23/18 09:20 Dose: 2 unit Lidocaine HCl (Lidocaine 2% Jelly*) 1 applic TOPICAL TID [facility] Last Admin: 05/23/18 10:57 Dose: 1 applic Lorazepam (Ativan Inj*) 1 mg IV PUSH Q6H PRN PRN Reason: ANXIETY Losartan Potassium (Cozaar Tab*) 25 mg PO DAILY [facility] Last Admin: 05/23/18 08:21 Dose: 25 mg Methadone HCl (Dolophine Tab*) 5 mg PO Q12HR [facility] Stop: 05/28/18 23:59 Last Admin: 05/23/18 08:06 Dose: 5 mg Midodrine (Midodrine (Nf)) 10 mg PO QID [facility]; Protocol Last Admin: 05/23/18 08:07 Dose: 10 mg Mometasone Furoate/Formoterol Fumar (Dulera 200/5 Mdi*) 2 puff INH BID [facility] Last Admin: 05/23/18 08:13 Dose: 2 puff Mupirocin (Bactroban 2 % Oint*) 1 applic TOPICAL BID [facility] Last Admin: 05/23/18 10:57 Dose: 1 applic Ondansetron HCl (Zofran Inj*) 8 mg IV Q6H PRN PRN Reason: NAUSEA Last Admin: 05/23/18 03:01 Dose: 8 mg Oxycodone HCl (Roxycodone Tab*) 10 mg PO Q4H PRN PRN Reason: PAIN - MODERATE TO SEVERE Last Admin: 05/22/18 17:51 Dose: 10 mg Pantoprazole Sodium (Protonix Tab*) 40 mg PO QPM [facility] Last Admin: 05/22/18 17:15 Dose: 40 mg Pharmacy Profile Note (Fentanyl Patch Check Q Shift) 1 note FOLLOW UP 0700, 1900 [facility] Last Admin: 05/23/18 07:32 Dose: 1 note Prochlorperazine Edisylate (Compazine Inj*) 5 mg IV Q6H PRN PRN Reason: NAUSEA Last Admin: 05/23/18 09:20 Dose: 5 mg Sodium Bicarbonate (Sodium Bicarbonate (Antacid)*) 2,600 mg PO QID [facility] Last Admin: 05/23/18 08:09 Dose: 2,600 mg Vital Signs - 8 hr 05/23/18 05/23/18 05/23/18 03:40 03:59 04:00 Temperature 98.6 F Pulse Rate 134 Respiratory 19 18 19 Rate Blood Pressure (mmHg) O2 Sat by Pulse 89 Oximetry 05/23/18 05/23/18 05/23/18 04:01 05:00 05:01 Temperature Pulse Rate 130 137 Respiratory 19 20 20 Rate Blood Pressure 127/79 112/86 (mmHg) O2 Sat by Pulse 89 96 Oximetry 05/23/18 05/23/18 05/23/18 05:55 06:00 06:01 Temperature Pulse Rate 132 Respiratory 26 24 24 Rate Blood Pressure 98/56 (mmHg) O2 Sat by Pulse Oximetry 05/23/18 05/23/18 05/23/18 07:00 07:01 08:06 Temperature Pulse Rate 127 126 Respiratory 19 19 16 Rate Blood Pressure 118/55 (mmHg) O2 Sat by Pulse 92 92 Oximetry 05/23/18 05/23/18 05/23/18 08:07 08:15 09:05 Temperature Pulse Rate 124 126 Respiratory 16 18 20 Rate Blood Pressure (mmHg) O2 Sat by Pulse 97 90 Oximetry Oxygen Devices in Use Now: High Flow Heated Nasal Cannula Appearance: 37 yo F in nAD, aAOx3 Eyes: No Scleral Icterus, PERRLA Ears/Nose/Mouth/Throat: NL Teeth, Lips, Gums, Mucous Membranes Moist Neck: NL Appearance and Movements; NL JVP, Trachea Midline Respiratory: Symmetrical Chest Expansion and Respiratory Effort, - - diffuse crackles throughout b/l lungs Cardiovascular: NL Sounds; No Murmurs; No JVD, RRR, - - tachy Abdominal: NL Sounds; No Tenderness; No Distention, No Hepatosplenomegaly, - - PD cath in place Extremities: No Edema Skin: - - nectoric rash from one thigh though b/l flanks to the other thigh. Also superficial ulceration on left calf. R fingers cyanotic Neurological: Alert and Oriented x 3, NL Muscle Strength and Tone Result Diagrams: 05/20/18 23:14 05/20/18 23:14 Microbiology and Other Data: Microbiology 05/21/18 21:58 Stool Occult Blood ([facility]) - Final Stool Assess/Plan/Problems-Billing Assessment: 37 year old with multiple medical problems including ESRD, on PD, calciphylaxis , chronic GI bleed, diffuse PVD - Patient Problems (1) Acute respiratory failure with hypoxia Comment: - Acute on chronic hypoxemic respiratory failure recurred on 05/22/18 due to pulm edema. - She was back to her baseline O2 requirement of 5L continuously, extubated . In ICU on Vapotherm. Pt refuses BIPAP. at the beginning of the month she was thought to have PNA and volume overload causing pulm congestion. - Completed 7 days of Zosyn at beginning of hospital stay. - Continue Dulera and bronchodilators. (2) GI bleed Comment: - Source is unclear, ischemic colitis was suspected on 05/16/18 in this pt with known vascular disease. - hemoglobin stable , low, and partially related to ESRD -poor endoscopy candidate -no signs or symptoms of acute bleed today. (3) PAD (peripheral artery disease) Comment: - Recent CT Aorta with run off this admission with moderate-severe R common femoral artery stenosis, severe b/l popliteal artery stenosis, near complete occlusion of distal L superficial fem artery stent. - as per dopplers of b/l UE's obtained at [facility] on 05/20/18 pt had good biphasic waves of b/l radial and ulnar arteries, but significant stenosis of all 5 fingers on R likely due to calcifilaxis. No other tx option apart for sodium thiosulfate is avaliable at this point. D/w DR. Marrufo. WAs on Coumadin for PAD , stopped due to GI bleed (4) Calciphylaxis Comment: - S/p skin biopsy on 05/12 with pathology confirmation. - cont IV sodium thiosulfate infusions - Continue to monitor for hypotension. -very poor prognosis, pt is aware, wants to cont all treatment avaliable. Palliative care following. (5) Acidosis Comment: due to renal disease, cont sodium bicarb supplementation PO (6) Bleeding disorder Comment: - Concern for DIC with her h/o epistaxis, vaginal bleeding (in the setting of Warfarin use), and GI bleed . today no active GI bleeding noted. Pt had maroon stool 05/20. - PT/PTT are prolonged, d-dimer elevated, but fibrinogen is also high. - No signs of active bleeding now (but stool at [facility] heme+), platelets are normal. -coumadin stopped (7) Secondary hyperparathyroidism of renal origin Comment: - Phos 4.7, calcium 6.2 (corrected 7.6), 25-vitamin D <7.0, PTH 85. - Phosphorus is normal. - Corrected Calcium is >7.5. - Calcitriol stopped after d/w nephrology. (8) ESRD on peritoneal dialysis Comment: - Continue peritoneal dialysis. Nephrology will try to take off more fluid today (9) IDDM (insulin dependent diabetes mellitus) Comment: - HgbA1c 8.8% - Continue Lispro SS. -holding Lantus -dialysis fluid can cause false elevation pt's fingerstick. Asked RN to get peripheral blood sample from PICC to check sugars (10) Pain management Comment: as per DR. Lion (11) DVT prophylaxis Comment: no anticoagulants due to bleeding Pt has h/o HIT SCD's Status and Disposition: inpatient
[2018-05-23] MEDS ORDERED: Sodium Bicarbonate 8.4%* 50 ML SYRINGE ONE ×2 (13:55→14:07)
[2018-05-23] MEDS ORDERED: EPINEPHrine SYR 0.1MG/ML* SYRINGE ONE ×2 (13:55→14:07)
--- NOTE | 2018-05-23 14:23 | PN ---
Progress Note - Progress Note Date of Service: 05/23/18 Note: Early afternoon pt's 02 sats dropped to 70% and pt agreed to BIPAP.At approx 14: [address] Niño by the bedside intubating. pt got back to sinus tachy after epi and amp. of bicarb. give. Placed on epi gt and arrested again. CPR was administered, amp of epi, got rhythm back, but 5 min later she arrested again and had rhythm back again within a couple of min after CPR started. boyfriend Moreno present by pt's room. He wishes no more CPR if pt arrests again . Molst completed with DR. Niño. Pt remains intubated under the care of Dr. Niño
[2018-05-23] MEDS ORDERED: Epinephrine DRIP 4 mcg/ml 250 mls (dosed in mcg/min) IV SCH (15:00)
--- NOTE | 2018-05-23 15:09 | PN ---
Progress Note - Progress Note Date of Service: 05/23/17 Note: CARDIAC ARREST WITH ASYSTOLE Patient experienced episode of O2 desaturation earlier and was placed on BIPAP with immediate increase in SpO2 to 97%About 20 minutes later, patient unexpectedly developed asystolic cardiac arrest was intubated and resuscitated with epinephrine and bicarbonate with ROSC - subsequently has two more episodes of asystolic cardiac arrest, resuscitated with epi and bicarb with ROSC - currently on an epinephrine drip at 20 mcg/min - has peripheral pulses but we are unable to get a measurable blood pressure. Patient has extensive arterial calcification and stents in both sides of the groin. The patient's boyfriend (healthcare proxy) is present at the bedside and he has decided to make patient a DNR, which was done.
[2018-05-23] MEDS ORDERED: Norepinephrine 16MCG/ML IVPRE* 4,000 MCG/250 ML BAG IV ONE (15:17)
[2018-05-23] MEDS: EPINEPHRINE IV SCH ×3 (16:15→23:00)
[2018-05-23] MEDS: D5W IV SCH ×3 (16:15→23:00)
[2018-05-23] MEDS: Propofol* 100 ML IV SCH ×2 (17:48→23:44)
[2018-05-23] MEDS: Pantoprazole TAB * 40 MG TAB PO SCH (18:05)
[2018-05-23] MEDS ORDERED: fentaNYL INFUSION 50 MCG/ML* 2,500 MCG/50 ML BAG IV SCH (20:00)
[2018-05-23] MEDS: Insulin IVPB 100 units/100 ml 100 UNITS/100 ML UNIT IVPB SCH (20:54)
--- NOTE | 2018-05-23 21:34 | PRO ---
PROCEDURE NOTE: DATE OF PROCEDURE: 05/23/18 PROCEDURE: Endotracheal intubation. INDICATIONS: This is a 37-year-old white female with renal failure and calcific arterial disease, wh o suffered an asystolic cardiac arrest in the afternoon of 05/23/18 and required intubation. DESCRIPTION OF PROCEDURE: Size 8 cuffed endotracheal tube was inserted under videoscopic guidance. Placement in airways was verified by exhaled CO2 detection. The patient did experience return of spon taneous circulation and a chest x-ray showed placement of the tube in the trachea and the tip of the tube was retracted 2 cm. The patient tolerated the procedure and there were no obvious complications from the intubation. However, prognosis is poor as the patient is on an epinephrine drip at 20 mcg per minute. [id number]/[facility] #: [id number]
[2018-05-23 22:53] LABS: BUN/Creatinine Ratio 6.2 (8-20); Calcium 8.7 mg/dL (8.6-10.3); EGFR African American 8.5 (>60); EGFR Non-African American 7.1 (>60); Potassium 4.2 mmol/L (3.5-5.0)
--- NOTE | 2018-05-24 01:27 | PN ---
PROGRESS NOTE: DATE OF VISIT: 05/23/18 SERVICE: [facility] Nephrology. SUBJECTIVE: The patient seen and examined at bedside. The patient noted to be in extremely poor con dition, noted to be lethargic. Detailed family discussion with the patient, family and caregivers as outlined below. Vitals and labs have been reviewed. PHYSICAL EXAM: HEENT: NCAT. Heart: S1, S2 present. Tachycardic at the time of exam. Lungs: Michael ateral crackles. Abdomen: Distended. No rebound, no guarding. Extremities: Bilateral thigh lesion s consistent with calciphylaxis. The patient noted to have severe peripheral arterial disease. No e shreya. Neuro: The patient noted to be more lethargic and in respiratory distress at the time of exam . ASSESSMENT AND PLAN: 1. End-stage renal disease, on peritoneal dialysis. The patient noted to be volume overloaded and y esterday the patient was switched to a 4.25% solution followed by a 2.5% solution as the patient had previously become hypotensive with aggressive UF and sodium thiosulfate. The patient was noted to be more volume overloaded, sats in the 70s and at this time discussed with Ani, the PD nurse to incre ase her PD solution to 4.25% to help with her pulmonary status. 2. Calciphylaxis confirmed on skin biopsy. The patient did not tolerate sodium thiosulfate 6 times a week and is currently getting it 3 times a week. 3. Significant peripheral arterial disease and multiple complications with organ failure and recent GI bleed. The patient is currently off her Eliquis and the patient was placed on Eliquis for severe peripheral arterial disease, noted to have significant calcification and occlusion in multiple arteri es and unfortunately, the patient has not been tolerating her blood thinner and has had recurrent epi sodes of GI bleed. 4. In addition, the patient had multiple respiratory complications and infections recently. 5. Also, significant calcifications secondary to calciphylaxis and significant peripheral arterial d isease. Case has been discussed in detail with the patient's boyfriend and [id number]. The grave ness of the situation was explained to them. All questions about the calciphylaxis treatment has been answered. Family made aware that it may take months for calciphylaxis to heal and respond; however, the patient may not have that long to survive secondary to multiple organ failure and decompensated condition with multiple recent hospitalizations. Hospice comfort care was discussed with the patient , the patient's caregivers versus continuing to resuscitate her. The patient's boyfriend and sister- in-law understand the gravity of the situation and are willing to think about this further. 6. Overall, the patient's prognosis is extremely poor and we will be available for any further quest ions. [id number]/[facility] #: [id number]
[2018-05-24] MEDS ORDERED: EPINEPHRINE IV SCH (02:12)
[2018-05-24] MEDS ORDERED: NS 0.9% IV SCH (02:12)
[2018-05-24 02:24] LABS: Calcium 7.8 mg/dL (8.6-10.3); Potassium 3.6 mmol/L (3.5-5.0)
[2018-05-24 02:29] LABS: BUN/Creatinine Ratio 6.6 (8-20); EGFR African American 9.9 (>60); EGFR Non-African American 8.2 (>60)
[2018-05-24 05:55] LABS: Hematocrit 23 % (33-41); Hemoglobin 7.2 g/dL (12.0-16.0); Mean Corpuscular HGB Conc 31 g/dL (31-36); Mean Corpuscular Hemoglobin 28 pg (27-31); Mean Corpuscular Volume 88 fL (80-97); Platelet Count 531 10^3/uL (150-450); Red Blood Count 2.62 10^6 /uL (3.70-4.87); Red Cell Distribution Width 17 % (10.5-15); White Blood Count 39.6 10^3/uL (3.5-10.8)
[2018-05-24 06:14] LABS: BUN/Creatinine Ratio 6.8 (8-20); Calcium 8.7 mg/dL (8.6-10.3); EGFR African American 9.2 (>60); EGFR Non-African American 7.6 (>60); Potassium 3.7 mmol/L (3.5-5.0)
[2018-05-24 06:19] LABS: ABS Basophils 0.1 10^3/ul (0-0.2); ABS Eosinophils 0 10^3/ul (0-0.6); ABS Lymphocytes 0.9 10^3/ul (1.0-4.8); ABS Monocytes 0.7 10^3/ul (0-0.8); ABS Nucleated RBC 0 10^3/ul; Eosinophil % 0 %; Lymphocyte % 2.3 %; Nucleated Red Blood Cells % 0
[2018-05-24] MEDS ORDERED: Pantoprazole IV* 40 MG IV ONE (06:20)
--- NOTE | 2018-05-24 06:21 | PN ---
Hospitalist Progress Note Date of Service: 05/24/18 HOSPITALIST ADDENDUM Called by RN because patient had coffee ground emesis. Will start Protonix drip for GI bleed. Overall prognosis extremly poor. Continue to monitor in ICU.
[2018-05-24] MEDS: EPINEPHRINE IV SCH ×4 (06:25→23:54)
[2018-05-24] MEDS: NS 0.9% IV SCH ×3 (06:25→23:54)
[2018-05-24] MEDS: Norepinephrine 16MCG/ML IVPRE* 4,000 MCG/250 ML BAG IV SCH ×4 (11:00→22:35)
[2018-05-24] MEDS: Pantoprazole* 80 mg IN NS 80 MG/250 ML BAG IVPB SCH ×2 (11:28→23:54)
[2018-05-24] MEDS: Propofol* 100 ML IV SCH ×3 (12:46→20:32)
[2018-05-24] MEDS: Insulin LISPRO* 1 UNITS UNIT SUBCUT SCH ×3 (13:10→19:55)
[2018-05-24] MEDS: fentaNYL* 50 MCG/ML 2 ML VIAL (100 MCG VIAL) IV SLOW PU PRN ×4 (16:40→23:21)
--- NOTE | 2018-05-24 16:44 | PN ---
Date of Service: 05/24/18 Critical Care Services: 37 y/o female with systemic calcinosis had 3 asystolic cardiac arrests yesterday and today, was able to follow commands. She remains on high-dose levophed for BP control, and is receiving mechanical ventilation. Vital Signs: Temp Pulse Resp BP SpO2 FiO2 99 F 121 22 112/50 100 100 Physical Exam: Gen:Occasionally opens eyes on command HEENT: +corneal and pupillary light reflexes Lungs:Clear Cardiac: Reg rhythm Extremities: Cool. Cyanotic changes in fingers of right hand. Fluid Balance (Past 24 Hours): 05/23/18 05/24/18 06:59 06:59 Intake Total 1310 5665.6 Output Total 0 0 Balance 1310 5665.6 Weight 191 lb 198 lb Intake: IV Fluids 20 Sodium Thiosulfate 20 IVPB 216 Sodium Thiosulfate 216 Medicated IV 4945.6 CC - Epinephrine 4532 CC - Propofol/Diprivan 303.6 Insulin 110 IV Narcotic Infusion 4 Fentanyl 4 Oral 1310 480 Output: Urine 0 0 Other: Date of Last Bowel Movement # Bowel Movements Estimated Stool Amount Small # Voids Labs: Laboratory Results - last 24 hr 05/23/18 05/23/18 05/23/18 17:21 22:00 22:13 WBC RBC Hgb Hct MCV MCH MCHC RDW Plt Count MPV Neut % (Auto) Lymph % (Auto) [place] % (Auto) Eos % (Auto) Baso % (Auto) Absolute Neuts (auto) Absolute Lymphs (auto) Absolute Monos (auto) Absolute Eos (auto) Absolute Basos (auto) Absolute Nucleated RBC Nucleated RBC % Sodium 137 Potassium 4.2 Chloride 83 L Carbon Dioxide 21 L Anion Gap 33 H BUN 41 H Creatinine 6.58 H Est GFR ( Amer) 8.5 Est GFR (Non-Af Amer) 7.1 BUN/Creatinine Ratio 6.2 L Glucose 859 H* POC Glucose (mg/dL) > 444 H* > 444 H* Glucose Meter Confirm Calcium 8.7 05/24/18 05/24/18 05/24/18 00:51 01:00 03:30 WBC RBC Hgb Hct MCV MCH MCHC RDW Plt Count MPV Neut % (Auto) Lymph % (Auto) [place] % (Auto) Eos % (Auto) Baso % (Auto) Absolute Neuts (auto) Absolute Lymphs (auto) Absolute Monos (auto) Absolute Eos (auto) Absolute Basos (auto) Absolute Nucleated RBC Nucleated RBC % Sodium 120 L D Potassium 3.6 Chloride 74 L Carbon Dioxide 19 L Anion Gap 27 H BUN 38 H Creatinine 5.79 H Est GFR ( Amer) 9.9 Est GFR (Non-Af Amer) 8.2 BUN/Creatinine Ratio 6.6 L Glucose 1216 H* POC Glucose (mg/dL) > 444 H* Glucose Meter Confirm 1216 H* 750 H* Calcium 7.8 L 05/24/18 05/24/18 05/24/18 05:30 05:30 05:30 WBC 39.6 H Hgb 7.2 L Hct 23 L Plt Count 531 H D Sodium 135 D Potassium 3.7 Chloride 85 L Carbon Dioxide 22 Anion Gap 28 H BUN 42 H Creatinine 6.16 H BUN/Creatinine Ratio 6.8 L Glucose 632 H* Calcium 8.7 05/24/18 05/24/18 05/24/18 10:16 11:28 12:56 WBC RBC Hgb Hct MCV MCH MCHC RDW Plt Count MPV Neut % (Auto) Lymph % (Auto) [place] % (Auto) Eos % (Auto) Baso % (Auto) Absolute Neuts (auto) Absolute Lymphs (auto) Absolute Monos (auto) Absolute Eos (auto) Absolute Basos (auto) Absolute Nucleated RBC Nucleated RBC % Sodium Potassium Chloride Carbon Dioxide Anion Gap BUN Creatinine Est GFR ( Amer) Est GFR (Non-Af Amer) BUN/Creatinine Ratio Glucose POC Glucose (mg/dL) 160 H 137 H 142 H Glucose Meter Confirm Calcium Studies: CXR: No evidence of CHF or pneumonia Nutrition: NPO Impression: Patient is apparently regaining consciousness after multiple cardiac arrests, but still requires high-dose vasopressor support. Prognosis remains very guarded in this case. Plan: Wean off ventilator and vasopressor support when able. Continue peritoneal dialysis. Critical Care Time: 75 minutes (including time to evaluate mental status after d /cing propofol).
--- NOTE | 2018-05-24 21:48 | PN ---
PROGRESS NOTE: DATE OF VISIT: SERVICE: [facility] Nephrology. SUBJECTIVE: The patient seen and examined at bedside. Yesterday, detailed discussion was held with the patient's boyfriend and [id number] about the gravity of the situation and how sick the patient was. Hospice care was also discussed with the patient. In the interim, the patient coded 3 times; developed asystole, cardiac arrest, was intubated and resuscitated, and currently on epinephrine drip. Later the patient was made DNR, but currently intubated in critical condition on epinephrine drip in the ICU. PHYSICAL EXAM: HEENT: Intubated, sedated. Lungs noted to have bronchial breath sounds, bilateral rhonchi and crackles. Abdomen: Distended, no rebound , no guarding. Heart: S1, S2 present. Tachycardic at time of exam. Extremities noted to have bilateral thigh lesions consistent with calciphylaxis , no edema. Neuro: Sedated and intubated. ASSESSMENT AND PLAN: Please refer to note above, detailed discussion with the family. The patient's overall prognosis currently appears to be extremely poor. At this time, the family wants to continue current measures. In light of this, we will continue the peritoneal dialysis that the patient has been receiving. The patient was placed on 4.25% solution for all cycles yesterday to help with her volume and had a net UF of 3l. At this time, with her hemodynamic compromise, we will continue dialysis more for detoxification and keep her on 2.5% exchanges with some UF. PD orders were discussed with Ani, the PD nurse and plan per above. We will be available for any questions. [id number]/[facility] #: [id number] [facility]
[2018-05-24] MEDS: Insulin IVPB 100 units/100 ml 100 UNITS/100 ML UNIT IVPB SCH (23:54)
[2018-05-24] MEDS: D5W IV SCH (23:54)
[2018-05-25] MEDS: Propofol* 100 ML IV SCH ×7 (00:40→20:38)
[2018-05-25] MEDS: Insulin LISPRO* 1 UNITS UNIT SUBCUT SCH ×6 (00:43→20:37)
[2018-05-25] MEDS: Norepinephrine 16MCG/ML IVPRE* 4,000 MCG/250 ML BAG IV SCH ×4 (03:04→22:36)
[2018-05-25 04:52] LABS: Hematocrit 23 % (33-41); Hemoglobin 7.3 g/dL (12.0-16.0); Mean Corpuscular HGB Conc 32 g/dL (31-36); Mean Corpuscular Hemoglobin 27 pg (27-31); Mean Corpuscular Volume 86 fL (80-97); Mean Platelet Volume 8.7 fL (7.4-10.4); Platelet Count 522 10^3/uL (150-450); Red Blood Count 2.67 10^6 /uL (3.70-4.87); Red Cell Distribution Width 17 % (10.5-15); White Blood Count 32.7 10^3/uL (3.5-10.8)
[2018-05-25 05:10] LABS: BUN/Creatinine Ratio 6.5 (8-20); EGFR African American 9.3 (>60); EGFR Non-African American 7.7 (>60); Potassium 3.3 mmol/L (3.5-5.0)
[2018-05-25] MEDS: fentaNYL* 50 MCG/ML 2 ML VIAL (100 MCG VIAL) IV SLOW PU PRN ×4 (08:41→22:31)
[2018-05-25] MEDS: Pantoprazole IV* 40 MG IV SCH (09:02)
--- NOTE | 2018-05-25 19:39 | PN ---
Date of Service: 05/25/18 Critical Care Services: On propofol overnight, and stopped this AM - was able to follow some commands, but only intermittently. Attempt to wean from ventilator was unsuccessful ( patient immediately developed tachypnea, tachycardia, and diaphoresis). Also remains on vasopressor (norepi at 10 mcg/min). Her peritoneal dialysis continues. Vital Signs: Temp Pulse Resp BP SpO2 FiO2 99 F 110 24 151/54 94 90 Physical Exam: Gen:Unresponsive on the ventilator and on propofol. HEENT: Pupils and corneals intact Lungs:Scaterred rhonchi. Crackles both bases. Abdomen:Not distended. Extremities: Exam unchanged - multiple lesions related to the calcinosis. Fluid Balance (Past 24 Hours): 05/25/18 06:59 Intake Total 2609.2 Output Total Balance 2609.2 Weight 189 lb Intake: IV Fluids Sodium Thiosulfate IVPB Sodium Thiosulfate Medicated IV 2604.2 CC - Epinephrine 400 CC - Propofol/Diprivan 655 Insulin 38.1 norepi 1254 pantoprazole 257.1 IV Narcotic Infusion 5 Fentanyl 5 Oral Output: Urine Other: Estimated Stool Amount Labs: 05/24/18 05/24/18 05/25/18 19:45 19:48 00:37 WBC RBC Hgb Hct MCV MCH MCHC RDW Plt Count MPV Sodium Potassium Chloride Carbon Dioxide Anion Gap BUN Creatinine Est GFR ( Amer) Est GFR (Non-Af Amer) BUN/Creatinine Ratio Glucose POC Glucose (mg/dL) 271 H 255 H Lactic Acid 1.0 Calcium 05/25/18 05/25/18 05/25/18 04:42 04:42 04:42 WBC 32.7 H RBC 2.67 L Hgb 7.3 L Hct 23 L MCV 86 MCH 27 MCHC 32 RDW 17 H Plt Count 522 H MPV 8.7 Sodium 140 Potassium 3.3 L Chloride 93 L Carbon Dioxide 24 Anion Gap 23 H BUN 40 H Creatinine 6.13 H Est GFR ( Amer) 9.3 Est GFR (Non-Af Amer) 7.7 BUN/Creatinine Ratio 6.5 L Glucose 150 H POC Glucose (mg/dL) Lactic Acid 0.9 Calcium 9.0 05/25/18 05/25/18 05/25/18 04:44 08:50 12:55 WBC RBC Hgb Hct MCV MCH MCHC RDW Plt Count MPV Sodium Potassium Chloride Carbon Dioxide Anion Gap BUN Creatinine Est GFR ( Amer) Est GFR (Non-Af Amer) BUN/Creatinine Ratio Glucose POC Glucose (mg/dL) 151 H 90 150 H Lactic Acid Calcium 05/25/18 15:48 WBC RBC Hgb Hct MCV MCH MCHC RDW Plt Count MPV Sodium Potassium Chloride Carbon Dioxide Anion Gap BUN Creatinine Est GFR ( Amer) Est GFR (Non-Af Amer) BUN/Creatinine Ratio Glucose POC Glucose (mg/dL) 246 H Lactic Acid Calcium Studies: CXR: Bilateral patchy infiltrates in both lungs Nutrition: None Impression: Major problems include disseminated calcinosis with renal failure, s/p asystolic cardiac arrest x 3 about 48 hours ago and post-arrest has shown some signs of awakening but this is not consistent. Patient is also ventilator- dependent and vasopressor-dependent, and has probable pulmonary edema but cannot be diuresed. The prognosis here is very poor. Plan: General supportive care for now, with daily wean attempts and daily evaluation of mental status. peritoneal dialysis will continue for now. Critical Care Time: 40 minutes
[2018-05-26] MEDS: fentaNYL* 50 MCG/ML 2 ML VIAL (100 MCG VIAL) IV SLOW PU PRN ×5 (00:01→17:20)
[2018-05-26] MEDS: Insulin LISPRO* 1 UNITS UNIT SUBCUT SCH ×7 (01:00→23:48)
[2018-05-26] MEDS: Propofol* 100 ML IV SCH ×9 (03:04→22:56)
[2018-05-26] MEDS: Pantoprazole IV* 40 MG IV SCH (09:31)
[2018-05-26] MEDS: Norepinephrine 16MCG/ML IVPRE* 4,000 MCG/250 ML BAG IV SCH ×3 (11:26→19:48)
[2018-05-26 12:32] LABS: Hematocrit 21 % (33-41); Hemoglobin 6.3 g/dL (12.0-16.0); Mean Corpuscular HGB Conc 31 g/dL (31-36); Mean Corpuscular Hemoglobin 27 pg (27-31); Mean Corpuscular Volume 86 fL (80-97); Mean Platelet Volume 9.4 fL (7.4-10.4); Platelet Count 433 10^3/uL (150-450); Red Blood Count 2.39 10^6 /uL (3.70-4.87); Red Cell Distribution Width 16 % (10.5-15); White Blood Count 21.5 10^3/uL (3.5-10.8)
[2018-05-26 12:40] LABS: BUN/Creatinine Ratio 6.4 (8-20); Calcium 8.4 mg/dL (8.6-10.3); EGFR Non-African American 7.4 (>60); Magnesium 1.4 mg/dL (1.9-2.7); Potassium 3.4 mmol/L (3.5-5.0)
--- NOTE | 2018-05-26 14:29 | PN ---
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 She was recently admitted from 04/29-05/19 during which time she was treated for PVD, diagnosed with calciphylaxis of the irght third finger, began on infusions of sodium thiosulfate, was intubated for acute on chronic respiratory failure. She was also treated for a chronic GI bleed, was seen by Dr Hartman regarding this. There was discussion of chronic ischemic colitis, but colonoscopy deferred due to concern of risk vs benefit. She has been anticoagulated with warfarin, which led to epistaxis when INR >3, so she was switched to an DOAC. She continued to have anemia and heme positive stool on the DOAC. She had been recently discharged to [facility] for necrosis of hand secondary to calciphylaxis on 05/19. She left there AMA in the evening of 05/20 as she didn't like the nursing care and returned directly back to [facility]. She reports bilateral hip pain and rectal bleeding. 05/21: Wound team assessment documented extensive lesions to lower extremities and buttocks secondaryt o calciphylaxis. Anticoagulation on hold for history of GI bleed. Nephrology consulted. continued on sodium thiosulfate for calciphylaxis. Continued on sodium bicarbonate for acidosis. Seen by hospice but family declined palliative options as regards both symptom control and comfort care. Pain service consulted; given poor prognosis dilaudid liberalized. 05/22: Developed hypoxia with sats 80%. CXR with pulmonary edema. HD volume removal increased. Transferred to ICU. Refusing BiPAP. Started on vapotherm. 05/23: remains on vapotherm. In afternoon sats dropped again to 70% and pt agreed to BiPAP with subsequent improvement to 97%. Shortly thereafter she went into asystole and was intubated. She had 3 asystolic codes, regaining pulses between. After pulses regained for the third time, family made patient DNR. On epinephrine @ 20 mcg/min. Peripheral pulses but unable to get good BP readings. [place] not an option given extensive arterial calcifications and stents. 05/24: developed coffee ground emesis, started on Protonix gtt. Following commands. Remains on highdose levophed. 05/25: Following commands intermittently. Failed SBT secondary to tachypnea and tachycardia. Vital Signs: Temp Pulse Resp BP SpO2 FiO2 97.3 F 110 25 85/62 92 90 05/26/18 08:00 05/26/18 12:30 05/26/18 12:00 05/26/18 12:30 05/26/18 12:30 05/26 12:00 Physical Exam: Gen: intubated, sedated HEENT: ETT in place Lungs: Coarse bilaterally. Scattered expiratory wheezes over right lung field , scattered inspiratory rhonci over left lung field Cardiac: RRR Abdomen: soft, NTND Extremities: warm Neuro: sedated Fluid Balance (Past 24 Hours): I= O= Net Intake & Output 05/24/18 05/25/18 05/26/18 05/27/18 06:59 06:59 06:59 06:59 Intake Total 5665.6 2609.2 1315 0 Output Total 0 500 0 Balance 5665.6 2609.2 815 0 Weight 198 lb 10.184 oz 189 lb 2.506 oz 187 lb 6.287 oz Intake: IV Fluids 20 Sodium Thiosulfate 20 IVPB 216 Sodium Thiosulfate 216 Medicated IV 4945.6 2604.2 1315 CC - Epinephrine 4532 400 CC - Propofol/Diprivan 303.6 655 590 Insulin 110 38.1 norepi 1254 725 pantoprazole 257.1 IV Narcotic Infusion 4 5 Fentanyl 4 5 Oral 480 0 Output: NG Tube Drainage Amount 500 Urine 0 0 Other: Date of Last Bowel 05/26/18 Movement # Bowel Movements 1 Estimated Stool Amount Medium Labs: Laboratory Results - last 24 hr 05/25/18 05/25/18 05/26/18 15:48 20:31 00:55 WBC RBC Hgb Hct MCV MCH MCHC RDW Plt Count MPV Sodium Potassium Chloride Carbon Dioxide Anion Gap BUN Creatinine Est GFR ( Amer) Est GFR (Non-Af Amer) BUN/Creatinine Ratio Glucose POC Glucose (mg/dL) 246 H 223 H 174 H Calcium Magnesium Blood Type Antibody Screen Crossmatch 05/26/18 05/26/18 05/26/18 04:46 08:34 11:30 WBC RBC Hgb Hct MCV MCH MCHC RDW Plt Count MPV Sodium 142 Potassium 3.4 L Chloride 95 L Carbon Dioxide 23 Anion Gap 24 H BUN 40 H Creatinine 6.29 H Est GFR ( Amer) 9.0 Est GFR (Non-Af Amer) 7.4 BUN/Creatinine Ratio 6.4 L Glucose 141 H POC Glucose (mg/dL) 164 H 100 Calcium 8.4 L Magnesium 1.4 L Blood Type Antibody Screen Crossmatch 05/26/18 05/26/18 11:30 11:30 WBC 21.5 H RBC 2.39 L Hgb 6.3 L* Hct 21 L MCV 86 MCH 27 MCHC 31 RDW 16 H Plt Count 433 MPV 9.4 Sodium Potassium Chloride Carbon Dioxide Anion Gap BUN Creatinine Est GFR ( Amer) Est GFR (Non-Af Amer) BUN/Creatinine Ratio Glucose POC Glucose (mg/dL) Calcium Magnesium Blood Type O Positive Antibody Screen Negative Crossmatch See Detail Studies: 05/26 AXR - no ileus 05/25 CXR - unchanged bilateral pulmonary infiltrates 05/24 CXR - patchy airspace opacities concerning for aspiration. small pleural effusions 05/23 CXR - bibasilar atelectasis vs consolidation 05/22 CXR - suspicious for cardiogenic pulmonary edema, improved as compared to Recent CT Aorta with run off this admission with moderate-severe R common femoral artery stenosis, severe b/l popliteal artery stenosis, near complete occlusion of distal L superficial fem artery stent. Dopplers of b/l UE's obtained at [facility] on 05/20/18 pt had good biphasic waves of b /l radial and ulnar arteries, but significant stenosis of all 5 fingers on R likely due to calcifilaxis. Nutrition: starting TF Impression: 37 yo F readmitted after recent admission for acute respiratory failure, calciphylaxis after leaving [facility]. Complaining of GI bleed and bilateral hip pain. Developed increasing hypoxia on 05/22 progressing to biPAP. Also with asystolic code x 3 on 05/23 with persistent shock but following commands after. Remains on vasopressors and ventilator. Poor prognosis secondary to calciphylaixs and complications of diabetes. 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 -- CXR: none today. Ordered for AM Home meds: Dulera, Albuterol, 5L home O2 Gastrointestinal: (1) Acute GI bleed, likely secondary to subacute ischemic colitis; (2) Chronic gastroparesis; (3) Chronic GERD -- diet: start TF -- bowel regimen: None -- ulcer prophylaxis: Protonix Home meds: Prochlorperazine, Zofran, Dronabinol, Maalox Endocrine: (1) Secondary hyperparathyroidism; (2) Type 2 diabetes mellitus -- monitor BGs -- SSI Home meds: Lispro Renal: (1) ESRD on PD; (2) Calcinosis -- UOP: anuric at baseline -- I/O:1315 ml in / 500 ml out -- Cr 6.29 from 6.13 -- Lytes Na 142 from 140 K 3.4 Ca 8.4 Mag 1.4 -- HD today -- Nephrology following Home meds: Sodium thiosulfate Infectious disease: (1) Leukocytosis -- Tmax 99 -- WBC 21.5 from 32.7 -- Procalcitonin ordered -- Micro 4/1 UA ordered blood ordered -- ABX None Home meds: None Neurologic: (1) Chronic depression; (2) Chronic pain syndrome -- Fentanyl gtt for pain control -- Propofol gtt for sedation Home meds: Methadone, Ativan, Dilaudid, Fentanyl patch, Cymbalta, Tylenol Hematological: (1) Acute on chronic anemia secondary to blood loss and chronic renal disease; (2) hx of malignant melanoma; (3) Hx of HIT -- Hgb 6.3 from 7.3, receiving 1 U PRBC -- Plt 433 from 522 -- DVT prophylaxis: Unable to use Arixtra or Argatroban per Nephrology, unable to use heparin given prior HIT. Difficult to control INR on Coumadin. Multiple GI bleeds on Eliquis. SCDs at this time and re-evaluate for direct Xa inhibitor when less unstable. Home meds: Epogen Metabolic: No acute issues Home meds: Sodium bicarbonate Deep vein thrombosis prophylaxis: Unable to use Arixtra or Argatroban per Nephrology, unable to use heparin given prior HIT. Difficult to control INR on Coumadin. Multiple GI bleeds on Eliquis. SCDs at this time and re-evaluate for direct Xa inhibitor when less unstable. Dietary: Protonix Condition: critical Prognosis: poor Code status: DNR, continue intubation Disposition: continue ICU Care Family updated at bedside regarding interval events and plan of care Cumulative time spent in the care of this patient (excluding any procedure time) : at least 55 minutes. Patient care included clinical interview (with patient and/or family), bedside exam of the patient, review of labs, x-rays, and other ancillary data, coordination of (respiratory, nursing care, review of patient's records, discussion regarding patients management with involved consultants, primary physician, pharmacists, and other healthcare personnel (dietary, case management , physical/occupational therapy etc.) Critical Care Time: 55 min
[2018-05-26] MEDS: Chlorhexidine MOUTHWASH 0.12%* 15 ML UDC TOPICAL SCH ×2 (17:07→21:27)
[2018-05-26 18:39] LABS: Urine Appearance Turbid; Urine Bacteria Absent (Absent); Urine Bilirubin Negative (Negative); Urine Blood 2+ (Negative); Urine Color Yellow; Urine Glucose 1+(50 mg/dL) (Negative); Urine Ketones Negative (Negative); Urine Nitrite Negative (Negative); Urine Protein 2+(100 mg/dL) (Negative); Urine Red Blood Cell 1+(3-5/hpf) (Absent); Urine Specific Gravity 1.016 (1.010-1.030); Urine Transitional Epithelial Present (Absent); Urine Urobilinogen Negative (Negative); Urine White Blood Cell 3+(>20/hpf) (Absent)
[2018-05-26] MEDS: CMCS: Midodrine (NF) 5 MG TAB PO SCH (21:27)
[2018-05-27] MEDS: Chlorhexidine MOUTHWASH 0.12%* 15 ML UDC TOPICAL SCH ×6 (00:28→20:51)
[2018-05-27] MEDS: Acetaminophen ADULT LIQ* 650 MG/20.3 ML UDC FEED TUBE PRN (00:28)
[2018-05-27 00:43] LABS: ABS Basophils 0.1 10^3/ul (0-0.2); ABS Eosinophils 0.2 10^3/ul (0-0.6); ABS Lymphocytes 0.8 10^3/ul (1.0-4.8); ABS Neutrophils 18.8 10^3/ul (1.5-7.7); ABS Nucleated RBC 0 10^3/ul; Eosinophil % 0.9 %; Hematocrit 24 % (33-41); Lymphocyte % 3.8 %; Mean Corpuscular HGB Conc 34 g/dL (31-36); Mean Corpuscular Hemoglobin 29 pg (27-31); Mean Corpuscular Volume 85 fL (80-97); Mean Platelet Volume 9.2 fL (7.4-10.4); Nucleated Red Blood Cells % 0.1; Platelet Count 450 10^3/uL (150-450); Red Blood Count 2.82 10^6 /uL (3.70-4.87); Red Cell Distribution Width 17 % (10.5-15); White Blood Count 20.9 10^3/uL (3.5-10.8)
--- NOTE | 2018-05-27 00:49 | PN ---
Progress Note - Progress Note Date of Service: 05/27/18 Note: Patient now febrile - Intubated > 48 hours. Will obtain Blood cultures, sputum cultures, CXR, CBC and start Zosyn for now.
[2018-05-27] MEDS ORDERED: Zosyn per Pharmacy* NOTE FOLLOW UP SCH (01:00)
[2018-05-27] MEDS ORDERED: Piperacillin/Tazobac ADVAN(*) 3.375 GM in NS 0.9% 100 ML* 100 ML IVPB ONE (01:00)
[2018-05-27] MEDS: fentaNYL* 50 MCG/ML 2 ML VIAL (100 MCG VIAL) IV SLOW PU PRN ×5 (01:05→20:52)
[2018-05-27] MEDS: Propofol* 100 ML IV SCH ×7 (01:17→20:32)
[2018-05-27] MEDS: Norepinephrine 16MCG/ML IVPRE* 4,000 MCG/250 ML BAG IV SCH (04:22)
[2018-05-27] MEDS: Insulin LISPRO* 1 UNITS UNIT SUBCUT SCH ×5 (04:30→20:30)
[2018-05-27] MEDS: ZOSYN 3.375 GM Q12H per EXTENDED INFUSION IVPB SCH ×4 (05:21→17:57)
--- NOTE | 2018-05-27 06:38 | ECHO ---
Patient: JULI PERRY [facility] Rec#: [id number] : 1980 Date: 05/26/2018 Age: 37y Height: 165 cm / 65.0 in Weight: 85 kg / 187.3 lbs Sex: F BSA: 1.92 Room#: ICU 5 Admit Date#: 05/21/2018 Type: Inpatient Referring: Petty Candelario Reading: Michelet Montano MD Compensation Agent: Kati Rosenbaum,SANDHYACS,RDMS CC: Aishwarya oSlis MD Transthoracic Echocardiogram Indication: Shock, Respiratory abnormality BP: 110/37 HR: 107 Rhythm: Tachycardia Findings History: ESRD, DM, respiratory failure, PVD, calciphylaxis, CAD, HTN, HLD, severe COPD, PE, smoker Technical Comments: The study is technically limited due to the patient's history of COPD. The study is technically limited due to patient being intubated and on a ventilator. Left Ventricle: The left ventricular chamber size is normal. Moderate concentric left ventricular hypertrophy is observed. Mild global hypokinesis of the left ventricle is observed. There is mildly decreased left ventricular systolic function. The estimated ejection fraction is 45-50%. There is septal flattening of the interventricular septum consistent with right ventricular volume or pressure overload. The assessment of diastolic function is non-diagnostic. The patient was unable to perform a Valsalva maneuver. Left Atrium: The left atrial chamber size is normal. Right Ventricle: The right ventricle is mild to moderately dilated. The right ventricular global systolic function is mildly reduced. Right Atrium: The right atrium is moderately dilated. Aortic Valve: The aortic valve leaflets are mildly thickened. Systolic excursion of the aortic valve is normal. There is a trace of aortic regurgitation. There is no evidence of aortic stenosis. Mitral Valve: There is mitral annular calcification. The mitral valve leaflets are mildly thickened. There is no evidence of mitral regurgitation. There is no evidence of mitral stenosis. Tricuspid Valve: The tricuspid valve leaflets are normal. There is mild to moderate tricuspid regurgitation. There is evidence of mild to moderate pulmonary hypertension. Pulmonic Valve: The pulmonic valve appears normal. There is a trace pulmonic regurgitation. Pericardium: There is no significant pericardial effusion. Aorta: The aortic root appears normal. There is no dilatation of the aortic arch. Pulmonary Artery: The main pulmonary artery appears normal. Venous: Unable to accurately comment on the size collapsibility of the IVC as the patient in known to be on mechanical ventilation. Conclusions Moderate concentric left ventricular hypertrophy is observed. There is mildly decreased left ventricular systolic function. The estimated ejection fraction is 45-50%. There is septal flattening of the interventricular septum consistent with right ventricular volume or pressure overload. The assessment of diastolic function is non-diagnostic. The right ventricular global systolic function is mildly reduced. There is no evidence of aortic stenosis. There is no evidence of mitral regurgitation. There is mild to moderate tricuspid regurgitation. There is evidence of mild to moderate pulmonary hypertension. There is no significant pericardial effusion. Compared to study of 04/30/18, the LV function is slighly lower Measurements Name Value Normal Range RVIDd (AP) 2D 3.4 cm (0.9 - 2.6) RVDdMajor (2D) 4.3 cm (2.2 - 4.4) RAd ISD 4CH 6.1 cm (3.4 - 4.9) RA (A4C)W 4.8 cm (2.9 - 4.6) IVSd (2D) 1.3 cm (0.6 - 1) LVPWd (2D) 1.6 cm (0.6 - 1) LVIDd (2D) 4.2 cm (3.6 - 5.4) LVIDs (2D) 3.6 cm - LV FS (2D) 15 % (25 - 45) Aortic Annulus 1.8 cm (1.4 - 2.6) Ao root diameter (2D) 2.5 cm (2.1 - 3.5) Ascending Ao 2.8 cm (2.1 - 3.4) Aortic arch 2.4 cm (1.8 - 3.4) LA dimension (AP) 2D 3.2 cm (2.3 - 3.8) LAd ISD 4CH 5.3 cm (2.9 - 5.3) LA ISD 4CH W 4.1 cm (2.5 - 4.5) Name Value Normal Range LA ESV BP (A/L) index 21 ml/m2 - Name Value Normal Range MV E-wave Vmax 0.6 m/sec - MV deceleration time 111 msec - MV A-wave Vmax 0.7 m/sec - MV E:A ratio 0.8 ratio - LV septal e' Vmax 0.05 m/sec - LV lateral e' Vmax 0.07 m/sec - LV E:e' septal ratio 13 ratio - LV E:e' lateral ratio 9 ratio - Name Value Normal Range AV Vmax 1.8 m/sec - AV VTI 18 cm - AV peak gradient 13 mmHg - AV mean gradient 7 mmHg - LVOT Vmax 1.1 m/sec - LVOT VTI 13 cm - LVOT peak gradient 5 mmHg - LVOT mean gradient 3 mmHg - RACHEL Vmax 1.1 m/sec - Name Value Normal Range TR Vmax 2.9 m/sec - TR peak gradient 34 mmHg - RAP 8 mmHg - RVSP 42 mmHg - IVC diameter 2.5 cm - Name Value Normal Range PV Vmax 0.7 m/sec - PV peak gradient 2 mmHg -
[2018-05-27] MEDS: Pantoprazole IV* 40 MG IV SCH (08:21)
[2018-05-27] MEDS: CMCS: Midodrine (NF) 5 MG TAB PO SCH (08:21)
[2018-05-27] MEDS ORDERED: Vancomycin(*) 750 MG in NS 0.9% 250 ML* 250 ML IVPB ONE (08:30)
--- NOTE | 2018-05-27 08:42 | PN ---
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 She was recently admitted from 04/29-05/19 during which time she was treated for PVD, diagnosed with calciphylaxis of the irght third finger, began on infusions of sodium thiosulfate, was intubated for acute on chronic respiratory failure. She was also treated for a chronic GI bleed, was seen by Dr Hartman regarding this. There was discussion of chronic ischemic colitis, but colonoscopy deferred due to concern of risk vs benefit. She has been anticoagulated with warfarin, which led to epistaxis when INR >3, so she was switched to an DOAC. She continued to have anemia and heme positive stool on the DOAC. She had been recently discharged to [facility] for necrosis of hand secondary to calciphylaxis on 05/19. She left there AMA in the evening of 05/20 as she didn't like the nursing care and returned directly back to [facility]. She reports bilateral hip pain and rectal bleeding. 05/21: Wound team assessment documented extensive lesions to lower extremities and buttocks secondaryt o calciphylaxis. Anticoagulation on hold for history of GI bleed. Nephrology consulted. continued on sodium thiosulfate for calciphylaxis. Continued on sodium bicarbonate for acidosis. Seen by hospice but family declined palliative options as regards both symptom control and comfort care. Pain service consulted; given poor prognosis dilaudid liberalized. 05/22: Developed hypoxia with sats 80%. CXR with pulmonary edema. HD volume removal increased. Transferred to ICU. Refusing BiPAP. Started on vapotherm. 05/23: remains on vapotherm. In afternoon sats dropped again to 70% and pt agreed to BiPAP with subsequent improvement to 97%. Shortly thereafter she went into asystole and was intubated. She had 3 asystolic codes, regaining pulses between. After pulses regained for the third time, family made patient DNR. On epinephrine @ 20 mcg/min. Peripheral pulses but unable to get good BP readings. [place] not an option given extensive arterial calcifications and stents. 05/24: developed coffee ground emesis, started on Protonix gtt. Following commands. Remains on highdose levophed. 05/25: Following commands intermittently. Failed SBT secondary to tachypnea and tachycardia. 05/26: no interval events. continues to require FiO2 80-100% Vital Signs: Temp Pulse Resp BP SpO2 FiO2 98.6 F 101 25 121/36 98 80 05/27/18 04:00 05/27/18 07:45 05/27/18 06:00 05/27/18 07:45 05/27/18 07:45 05/27 04:00 Physical Exam: Gen: resting comfortably HEENT: ETT in place Lungs: clear on left, coarse on right Cardiac: RRR Abdomen: soft, NTND Extremities: warm, dry Neuro: sedated Fluid Balance (Past 24 Hours): I= O= Net Intake & Output 05/25/18 05/26/18 05/27/18 05/28/18 06:59 06:59 06:59 06:59 Intake Total 2609.2 1315 1800 Output Total 500 350 Balance 2609.2 815 1450 Weight 189 lb 2.506 oz 187 lb 6.287 oz 183 lb 9.6 oz Intake: IV Fluids 8 NS 8 IVPB 119 Zosyn 119 Medicated IV 2604.2 1315 1353 CC - Epinephrine 400 CC - Propofol/Diprivan 655 590 729 Insulin 38.1 norepi 1254 725 624 pantoprazole 257.1 IV Narcotic Infusion 5 Fentanyl 5 Oral 0 Packed Cells 320 Output: NG Tube Drainage Amount 500 350 Urine 0 Other: Date of Last Bowel 05/26/18 05/27/18 Movement # Bowel Movements 1 1 Estimated Stool Amount Medium Medium # Voids 0 Labs: Laboratory Results - last 24 hr 05/26/18 05/26/18 05/26/18 08:34 11:30 11:30 WBC 21.5 H RBC 2.39 L Hgb 6.3 L* Hct 21 L MCV 86 MCH 27 MCHC 31 RDW 16 H Plt Count 433 MPV 9.4 Neut % (Auto) Lymph % (Auto) Frontier % (Auto) Eos % (Auto) Baso % (Auto) Absolute Neuts (auto) Absolute Lymphs (auto) Absolute Monos (auto) Absolute Eos (auto) Absolute Basos (auto) Absolute Nucleated RBC Nucleated RBC % Sodium 142 Potassium 3.4 L Chloride 95 L Carbon Dioxide 23 Anion Gap 24 H BUN 40 H Creatinine 6.29 H Est GFR ( Amer) 9.0 Est GFR (Non-Af Amer) 7.4 BUN/Creatinine Ratio 6.4 L Glucose 141 H POC Glucose (mg/dL) 100 Calcium 8.4 L Magnesium 1.4 L Urine Color Urine Appearance Urine pH Ur Specific [place] Urine Protein Urine Ketones Urine Blood Urine Nitrate Urine Bilirubin Urine Urobilinogen Ur Leukocyte Esterase Urine WBC (Auto) Urine RBC (Auto) Ur Transition Epith Cell Urine Bacteria Urine Glucose Blood Type Antibody Screen Crossmatch 05/26/18 05/26/18 05/26/18 11:30 16:18 16:58 WBC RBC Hgb Hct MCV MCH MCHC RDW Plt Count MPV Neut % (Auto) Lymph % (Auto) Frontier % (Auto) Eos % (Auto) Baso % (Auto) Absolute Neuts (auto) Absolute Lymphs (auto) Absolute Monos (auto) Absolute Eos (auto) Absolute Basos (auto) Absolute Nucleated RBC Nucleated RBC % Sodium Potassium Chloride Carbon Dioxide Anion Gap BUN Creatinine Est GFR ( Amer) Est GFR (Non-Af Amer) BUN/Creatinine Ratio Glucose POC Glucose (mg/dL) 238 H 224 H Calcium Magnesium Urine Color Urine Appearance Urine pH Ur Specific [place] Urine Protein Urine Ketones Urine Blood Urine Nitrate Urine Bilirubin Urine Urobilinogen Ur Leukocyte Esterase Urine WBC (Auto) Urine RBC (Auto) Ur Transition Epith Cell Urine Bacteria Urine Glucose Blood Type O Positive Antibody Screen Negative Crossmatch See Detail 05/26/18 05/26/18 05/26/18 17:45 19:58 23:44 WBC RBC Hgb Hct MCV MCH MCHC RDW Plt Count MPV Neut % (Auto) Lymph % (Auto) Frontier % (Auto) Eos % (Auto) Baso % (Auto) Absolute Neuts (auto) Absolute Lymphs (auto) Absolute Monos (auto) Absolute Eos (auto) Absolute Basos (auto) Absolute Nucleated RBC Nucleated RBC % Sodium Potassium Chloride Carbon Dioxide Anion Gap BUN Creatinine Est GFR ( Amer) Est GFR (Non-Af Amer) BUN/Creatinine Ratio Glucose POC Glucose (mg/dL) 269 H 276 H Calcium Magnesium Urine Color Yellow Urine Appearance Turbid Urine pH 7.0 Ur Specific [place] 1.016 Urine Protein 2+(100 mg/dl) A Urine Ketones Negative Urine Blood 2+ A Urine Nitrate Negative Urine Bilirubin Negative Urine Urobilinogen Negative Ur Leukocyte Esterase 2+ A Urine WBC (Auto) 3+(>20/hpf) A Urine RBC (Auto) 1+(3-5/hpf) A Ur Transition Epith Cell Present A Urine Bacteria Absent Urine Glucose 1+(50 mg/dl) A Blood Type Antibody Screen Crossmatch 05/27/18 05/27/18 00:20 04:24 WBC 20.9 H RBC 2.82 L Hgb 8.0 L Hct 24 L MCV 85 MCH 29 MCHC 34 RDW 17 H Plt Count 450 MPV 9.2 Neut % (Auto) 90.1 Lymph % (Auto) 3.8 Frontier % (Auto) 4.8 Eos % (Auto) 0.9 Baso % (Auto) 0.4 Absolute Neuts (auto) 18.8 H Absolute Lymphs (auto) 0.8 L Absolute Monos (auto) 1.0 H Absolute Eos (auto) 0.2 Absolute Basos (auto) 0.1 Absolute Nucleated RBC 0 Nucleated RBC % 0.1 Sodium Potassium Chloride Carbon Dioxide Anion Gap BUN Creatinine Est GFR ( Amer) Est GFR (Non-Af Amer) BUN/Creatinine Ratio Glucose POC Glucose (mg/dL) 335 H Calcium Magnesium Urine Color Urine Appearance Urine pH Ur Specific [place] Urine Protein Urine Ketones Urine Blood Urine Nitrate Urine Bilirubin Urine Urobilinogen Ur Leukocyte Esterase Urine WBC (Auto) Urine RBC (Auto) Ur Transition Epith Cell Urine Bacteria Urine Glucose Blood Type Antibody Screen Crossmatch Studies: 05/26 AXR - no ileus 05/25 CXR - unchanged bilateral pulmonary infiltrates 05/24 CXR - patchy airspace opacities concerning for aspiration. small pleural effusions 05/23 CXR - bibasilar atelectasis vs consolidation 05/22 CXR - suspicious for cardiogenic pulmonary edema, improved as compared to Recent CT Aorta with run off this admission with moderate-severe R common femoral artery stenosis, severe b/l popliteal artery stenosis, near complete occlusion of distal L superficial fem artery stent. Dopplers of b/l UE's obtained at [facility] on 05/20/18 pt had good biphasic waves of b /l radial and ulnar arteries, but significant stenosis of all 5 fingers on R likely due to calcifilaxis. Nutrition: TF Impression: 37 yo F readmitted after recent admission for acute respiratory failure, calciphylaxis after leaving [facility]. Complaining of GI bleed and bilateral hip pain. Developed increasing hypoxia on 05/22 progressing to biPAP. Also with asystolic code x 3 on 05/23 with persistent shock but following commands after. Remains on vasopressors and ventilator. Poor prognosis secondary to calciphylaixs and complications of diabetes. Now with aspiration pneumonia. 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; (2) Persistent shock ; (3) Chronic hyperlipidemia; (4) CAD; (5) PAD; (6) Chronic essential hypertension; (7) stent to RT SFA; (8) stent to R brachial artery, (9) Acute systolic CHF; (10) Mild to moderate pulmonary HTN -- HR 101-114 -- SBP 66-172 -- Telemetry -- Vasopressors Levophed @ 2 mcg/min, titrate to MAP > 65 Midodrine, frequency increased -- TTE moderate concentric left ventricular hypertrophy mild global hypokinesis, LVEF decreased at 45-50% septal flattening of interventricular septum consistent with right ventricular or volume overload assessment of diastolic function nondiagnostic right ventricle mild to moderately dilated right ventricular global systolic function mildly reduced trace aortic regurgitation mild to moderate tricuspid regurgitation mild to moderate pulmonary hypertension trace pulmonic regurgitation Home meds: Midodrine Pulmonary: (1) Acute hypoxic respiratory failure requiring intubation, with hypoxia and hypercapnea; (2) Aspiration pneumonia; (3) hx of asthma; (4) hx of tobacco abuse; (5) COPD -- RR 17-34 -- sats 89-100 on StK600% -- vent, wean as tolerated. -- CXR: Linear streaky densities in RUL and RLL, improved as compared to 05/25 Home meds: Dulera, Albuterol, 5L home O2 Gastrointestinal: (1) Acute GI bleed, likely secondary to subacute ischemic colitis, resolved; (2) Chronic gastroparesis; (3) Chronic GERD -- diet: start TF -- bowel regimen: None -- ulcer prophylaxis: Protonix Home meds: Prochlorperazine, Zofran, Dronabinol, Maalox Endocrine: (1) Secondary hyperparathyroidism; (2) Type 2 diabetes mellitus -- monitor BGs -- SSI, add Lantus for better glycemic control Home meds: Lispro Renal: (1) ESRD on PD; (2) Calcinosis -- UOP: anuric at baseline -- I/O:1800 ml in / 350 ml out -- Cr pending -- Lytes pending -- Nephrology following Home meds: Sodium thiosulfate Infectious disease: (1) Aspiration pneumonia; (2) Sepsis -- Tmax 102.1 -- WBC 20.9 from 21.5 -- Procalcitonin pending -- Micro 4/2 Sputum in process 05/26 UA (+) LE, negative nitrates. 3+ WBC blood ordered -- ABX Zosyn Vancomycin Home meds: None Neurologic: (1) Chronic depression; (2) Chronic pain syndrome -- Fentanyl gtt for pain control -- Propofol gtt for sedation Home meds: Methadone, Ativan, Dilaudid, Fentanyl patch, Cymbalta, Tylenol Hematological: (1) Acute on chronic anemia secondary to blood loss and chronic renal disease; (2) hx of malignant melanoma; (3) Hx of HIT -- Hgb 8.0 from 6.3 -- Plt 450 from 433 -- DVT prophylaxis: Unable to use Arixtra or Argatroban per Nephrology, unable to use heparin given prior HIT. Difficult to control INR on Coumadin. Multiple GI bleeds on Eliquis. SCDs at this time and re-evaluate for direct Xa inhibitor when less unstable. Home meds: Epogen Metabolic: No acute issues Home meds: Sodium bicarbonate Deep vein thrombosis prophylaxis: Unable to use Arixtra or Argatroban per Nephrology, unable to use heparin given prior HIT. Difficult to control INR on Coumadin. Multiple GI bleeds on Eliquis. SCDs at this time and re-evaluate for direct Xa inhibitor when less unstable. Dietary: Protonix Condition: critical Prognosis: poor Code status: DNR, continue intubation Disposition: continue ICU Care Family updated at bedside regarding interval events and plan of care Cumulative time spent in the care of this patient (excluding any procedure time) : at least 55 minutes. Patient care included clinical interview (with patient and/or family), bedside exam of the patient, review of labs, x-rays, and other ancillary data, coordination of (respiratory, nursing care, review of patient's records, discussion regarding patients management with involved consultants, primary physician, pharmacists, and other healthcare personnel (dietary, case management , physical/occupational therapy etc.) Critical Care Time: 40 min
[2018-05-27] MEDS ORDERED: Insulin GLARGINE(*) 1 UNITS UNIT SUBCUT SCH (09:00)
[2018-05-27] MEDS ORDERED: Vancomycin per Pharmacy* NOTE FOLLOW UP SCH (09:00)
[2018-05-27 09:41] LABS: BUN/Creatinine Ratio 6.6 (8-20); Calcium 8.3 mg/dL (8.6-10.3); EGFR African American 9.5 (>60); EGFR Non-African American 7.8 (>60); Magnesium 1.4 mg/dL (1.9-2.7); Phosphorus 5.4 mg/dL (2.5-5.0); Potassium 2.9 mmol/L (3.5-5.0)
[2018-05-27] MEDS: CMC:Midodrine (NF) 5 MG TAB PO SCH ×2 (14:57→21:57)
[2018-05-28] MEDS: fentaNYL* 50 MCG/ML 2 ML VIAL (100 MCG VIAL) IV SLOW PU PRN ×4 (00:21→21:43)
[2018-05-28] MEDS: Chlorhexidine MOUTHWASH 0.12%* 15 ML UDC TOPICAL SCH ×6 (00:53→21:09)
[2018-05-28] MEDS: Insulin LISPRO* 1 UNITS UNIT SUBCUT SCH ×6 (01:20→20:25)
[2018-05-28] MEDS: Propofol* 100 ML IV SCH ×7 (02:35→21:09)
[2018-05-28 04:03] LABS: Hematocrit 23 % (33-41); Hemoglobin 8.2 g/dL (12.0-16.0); Mean Corpuscular HGB Conc 36 g/dL (31-36); Mean Corpuscular Hemoglobin 31 pg (27-31); Mean Corpuscular Volume 87 fL (80-97); Mean Platelet Volume 9.5 fL (7.4-10.4); Platelet Count 414 10^3/uL (150-450); Red Blood Count 2.65 10^6 /uL (3.70-4.87); Red Cell Distribution Width 16 % (10.5-15)
[2018-05-28 04:13] LABS: BUN/Creatinine Ratio 6.7 (8-20); Blood Urea Nitrogen 36 mg/dL (6-24); CO2 Carbon Dioxide 20 mmol/L (22-32); Calcium 7.6 mg/dL (8.6-10.3); Chloride 89 mmol/L (101-111); EGFR African American 10.8 (>60); EGFR Non-African American 8.9 (>60); Glucose 259 mg/dL (70-100); Phosphorus 4.7 mg/dL (2.5-5.0); Sodium 130 mmol/L (135-145)
[2018-05-28 04:26] LABS: Anion Gap 21 mmol/L (2-11)
[2018-05-28] MEDS: CMC:Midodrine (NF) 5 MG TAB PO SCH ×2 (05:38→14:14)
[2018-05-28] MEDS: ZOSYN 3.375 GM Q12H per EXTENDED INFUSION IVPB SCH ×4 (05:38→17:00)
[2018-05-28 06:13] LABS: Magnesium 1.4 mg/dL (1.9-2.7)
[2018-05-28] MEDS: Pantoprazole IV* 40 MG IV SCH (07:58)
--- NOTE | 2018-05-28 08:40 | PN ---
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 She was recently admitted from 04/29-05/19 during which time she was treated for PVD, diagnosed with calciphylaxis of the irght third finger, began on infusions of sodium thiosulfate, was intubated for acute on chronic respiratory failure. She was also treated for a chronic GI bleed, was seen by Dr Hartman regarding this. There was discussion of chronic ischemic colitis, but colonoscopy deferred due to concern of risk vs benefit. She has been anticoagulated with warfarin, which led to epistaxis when INR >3, so she was switched to an DOAC. She continued to have anemia and heme positive stool on the DOAC. She had been recently discharged to [facility] for necrosis of hand secondary to calciphylaxis on 05/19. She left there AMA in the evening of 05/20 as she didn't like the nursing care and returned directly back to [facility] [place]. She reports bilateral hip pain and rectal bleeding. 05/21: Wound team assessment documented extensive lesions to lower extremities and buttocks secondaryt o calciphylaxis. Anticoagulation on hold for history of GI bleed. Nephrology consulted. continued on sodium thiosulfate for calciphylaxis. Continued on sodium bicarbonate for acidosis. Seen by hospice but family declined palliative options as regards both symptom control and comfort care. Pain service consulted; given poor prognosis dilaudid liberalized. 05/22: Developed hypoxia with sats 80%. CXR with pulmonary edema. HD volume removal increased. Transferred to ICU. Refusing BiPAP. Started on vapotherm. 05/23: remains on vapotherm. In afternoon sats dropped again to 70% and pt agreed to BiPAP with subsequent improvement to 97%. Shortly thereafter she went into asystole and was intubated. She had 3 asystolic codes, regaining pulses between. After pulses regained for the third time, family made patient DNR. On epinephrine @ 20 mcg/min. Peripheral pulses but unable to get good BP readings. [place] not an option given extensive arterial calcifications and stents. 05/24: developed coffee ground emesis, started on Protonix gtt. Following commands. Remains on highdose levophed. 05/25: Following commands intermittently. Failed SBT secondary to tachypnea and tachycardia. 05/26: no interval events. continues to require FiO2 80-100% Vital Signs: Temp Pulse Resp BP SpO2 FiO2 99.2 F 104 28 133/39 98 90 05/28/18 07:37 05/28/18 06:00 05/28/18 06:14 05/28/18 05:30 05/28/18 06:00 05/28 07:35 Physical Exam: Gen: resting comfortably in bed HEENT: ETT in place Lungs: coarse bilaterally, faint expiratory wheeze scattered bilaterally Cardiac: RRR Abdomen: soft, NTND Extremities: warm, dry Neuro: sedated Fluid Balance (Past 24 Hours): I= O= Net Intake & Output 05/26/18 05/27/18 05/28/18 05/29/18 06:59 06:59 06:59 06:59 Intake Total 1315 1800 2048 Output Total 500 350 Balance 815 1450 2048 Weight 187 lb 6.287 oz 183 lb 9.6 oz 177 lb 8 oz Intake: IV Fluids 8 134 NS 8 134 IVPB 119 238 Zosyn 119 238 Medicated IV 1315 1353 785 CC - Propofol/Diprivan 590 729 744 norepi 725 624 41 Oral 0 Tube Feeding 691 Tube Feeding Flush Amount 200 Packed Cells 320 Output: NG Tube Drainage Amount 500 350 Urine 0 Other: Date of Last Bowel 05/26/18 05/27/18 05/28/18 Movement # Bowel Movements 1 1 1 Estimated Stool Amount Medium Medium Large # Voids 0 Labs: Laboratory Results - last 24 hr 05/27/18 05/27/18 05/27/18 08:02 08:53 12:45 WBC RBC Hgb Hct MCV MCH MCHC RDW Plt Count MPV Sodium 141 Potassium 2.9 L Chloride 96 L Carbon Dioxide 24 Anion Gap 21 H BUN 40 H Creatinine 6.02 H Est GFR ( Amer) 9.5 Est GFR (Non-Af Amer) 7.8 BUN/Creatinine Ratio 6.6 L Glucose 148 H POC Glucose (mg/dL) 253 H 91 Calcium 8.3 L Phosphorus 5.4 H Magnesium 1.4 L 05/27/18 05/27/18 05/28/18 17:57 20:11 00:08 WBC RBC Hgb Hct MCV MCH MCHC RDW Plt Count MPV Sodium Potassium Chloride Carbon Dioxide Anion Gap BUN Creatinine Est GFR ( Amer) Est GFR (Non-Af Amer) BUN/Creatinine Ratio Glucose 234 H POC Glucose (mg/dL) 205 H 188 H Calcium Phosphorus Magnesium 05/28/18 05/28/18 05/28/18 03:45 03:45 05:50 WBC 26.0 H RBC 2.65 L Hgb 8.2 L Hct 23 L MCV 87 MCH 31 MCHC 36 RDW 16 H Plt Count 414 MPV 9.5 Sodium 130 L D Potassium TNP TNP Chloride 89 L Carbon Dioxide 20 L Anion Gap 21 H BUN 36 H Creatinine 5.36 H Est GFR ( Amer) 10.8 Est GFR (Non-Af Amer) 8.9 BUN/Creatinine Ratio 6.7 L Glucose 259 H POC Glucose (mg/dL) Calcium 7.6 L Phosphorus 4.7 Magnesium TNP 1.4 L 05/28/18 07:45 WBC RBC Hgb Hct MCV MCH MCHC RDW Plt Count MPV Sodium Potassium Chloride Carbon Dioxide Anion Gap BUN Creatinine Est GFR ( Amer) Est GFR (Non-Af Amer) BUN/Creatinine Ratio Glucose POC Glucose (mg/dL) 234 H Calcium Phosphorus Magnesium Studies: 05/26 AXR - no ileus 05/25 CXR - unchanged bilateral pulmonary infiltrates 05/24 CXR - patchy airspace opacities concerning for aspiration. small pleural effusions 05/23 CXR - bibasilar atelectasis vs consolidation 05/22 CXR - suspicious for cardiogenic pulmonary edema, improved as compared to Recent CT Aorta with run off this admission with moderate-severe R common femoral artery stenosis, severe b/l popliteal artery stenosis, near complete occlusion of distal L superficial fem artery stent. Dopplers of b/l UE's obtained at [facility] on 05/20/18 pt had good biphasic waves of b /l radial and ulnar arteries, but significant stenosis of all 5 fingers on R likely due to calcifilaxis. Nutrition: TF Impression: 37 yo F readmitted after recent admission for acute respiratory failure, calciphylaxis after leaving [facility]. Complaining of GI bleed and bilateral hip pain. Developed increasing hypoxia on 05/22 progressing to biPAP. Also with asystolic code x 3 on 05/23 with persistent shock but following commands after. Remains on vasopressors and ventilator. Poor prognosis secondary to calciphylaixs and complications of diabetes. Now with aspiration pneumonia. 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; (2) Persistent shock ; (3) Chronic hyperlipidemia; (4) CAD; (5) PAD; (6) Chronic essential hypertension; (7) stent to RT SFA; (8) stent to R brachial artery, (9) Acute systolic CHF; (10) Mild to moderate pulmonary HTN -- HR 94-106 -- SBP 88-156 -- Telemetry -- Vasopressors Levophed off Midodrine -- TTE moderate concentric left ventricular hypertrophy mild global hypokinesis, LVEF decreased at 45-50% septal flattening of interventricular septum consistent with right ventricular or volume overload assessment of diastolic function nondiagnostic right ventricle mild to moderately dilated right ventricular global systolic function mildly reduced trace aortic regurgitation mild to moderate tricuspid regurgitation mild to moderate pulmonary hypertension trace pulmonic regurgitation Home meds: Midodrine Pulmonary: (1) Acute hypoxic respiratory failure requiring intubation, with hypoxia and hypercapnea; (2) Aspiration pneumonia; (3) hx of asthma; (4) hx of tobacco abuse; (5) COPD -- RR 14-39 -- sats 95-100 on ZeR114% -- vent, wean as tolerated. -- CXR: Linear streaky densities in RUL and RLL, improved as compared to 05/25 Home meds: Dulera, Albuterol, 5L home O2 Gastrointestinal: (1) Acute GI bleed, likely secondary to subacute ischemic colitis, resolved; (2) Chronic gastroparesis; (3) Chronic GERD -- diet: start TF -- bowel regimen: None -- ulcer prophylaxis: Protonix Home meds: Prochlorperazine, Zofran, Dronabinol, Maalox Endocrine: (1) Secondary hyperparathyroidism; (2) Type 2 diabetes mellitus -- monitor BGs -- SSI Home meds: Lispro Renal: (1) ESRD on PD; (2) Calcinosis -- UOP: anuric at baseline -- I/O:1800 ml in / 350 ml out -- Cr 5.36 -- Lytes Na 130 K hemolyzed Ca 7.6 Phos 4.7 Mag 1.4 -- Nephrology following -- restart sodium thiosulfate Home meds: Sodium thiosulfate Infectious disease: (1) Aspiration pneumonia; (2) Klebsiella UTI; (3) Sepsis -- Tmax 99.2 -- WBC 26.0 form 20.9 -- Procalcitonin pending -- Micro / Sputum in process 05/26 UA (+) LE, negative nitrates. 3+ WBC Urine Klebsiella blood ordered -- ABX Zosyn Vancomycin -- Vanco level pending Home meds: None Neurologic: (1) Chronic depression; (2) Chronic pain syndrome -- Fentanyl PRN for pain control -- Propofol gtt for sedation -- Tyelnol as needed Home meds: Methadone, Ativan, Dilaudid, Fentanyl patch, Cymbalta, Tylenol Hematological: (1) Acute on chronic anemia secondary to blood loss and chronic renal disease; (2) hx of malignant melanoma; (3) Hx of HIT -- Hgb 8.2 from 8.0 -- Plt 414 form 450 -- DVT prophylaxis: Unable to use Arixtra or Argatroban per Nephrology, unable to use heparin given prior HIT. Difficult to control INR on Coumadin. Multiple GI bleeds on Eliquis. SCDs at this time and re-evaluate for direct Xa inhibitor when less unstable. Home meds: Epogen Metabolic: No acute issues Home meds: Sodium bicarbonate Deep vein thrombosis prophylaxis: Unable to use Arixtra or Argatroban per Nephrology, unable to use heparin given prior HIT. Difficult to control INR on Coumadin. Multiple GI bleeds on Eliquis. SCDs at this time and re-evaluate for direct Xa inhibitor when less unstable. Dietary: Protonix Condition: critical Prognosis: poor Code status: DNR, continue intubation Disposition: continue ICU Care Family updated at bedside regarding interval events and plan of care Cumulative time spent in the care of this patient (excluding any procedure time) : at least 55 minutes. Patient care included clinical interview (with patient and/or family), bedside exam of the patient, review of labs, x-rays, and other ancillary data, coordination of (respiratory, nursing care, review of patient's records, discussion regarding patients management with involved consultants, primary physician, pharmacists, and other healthcare personnel (dietary, case management , physical/occupational therapy etc.) Critical Care Time: 40 min
[2018-05-28] MEDS ORDERED: ALBUMIN HUMAN 25% IV ONE (11:10)
[2018-05-28 11:13] LABS: BUN/Creatinine Ratio 6.8 (8-20); Calcium 8.5 mg/dL (8.6-10.3); EGFR African American 9.4 (>60); EGFR Non-African American 7.8 (>60); HDL Cholesterol 12.4 mg/dL; Potassium 2.8 mmol/L (3.5-5.0)
[2018-05-28] MEDS: Sodium Thiosulfate 25 GM in 200 ML IV ONE ×2 (11:34→12:09)
[2018-05-28] MEDS ORDERED: Albumin Human 25%* 25 GM/100 ML BTL IV ONE (11:40)
[2018-05-28 11:46] LABS: Vancomycin Trough 11.7 mcg/mL
[2018-05-28] MEDS ORDERED: SODIUM THIOSULFATE 12.5 GM IV ONE (12:00)
[2018-05-28] MEDS ORDERED: Vancomycin(*) 750 MG in NS 0.9% 250 ML* 250 ML IVPB ONE (17:42)
--- NOTE | 2018-05-28 19:34 | PN ---
Subjective Date of Service: 05/28/18 Interval History: Ms. 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 She was transferred to [facility] on 05/19/18 for a right 3rd finger ischemia. On 05/20/18 she signed out AMA from [facility] and represented to [facility] and was readmitted. She presented to the hospital with multiple skin lesions in the setting of calciphylaxis. On 05/22/18 she developed hypoxia, refused BiPAP and was placed on vapotherm. On 05/23/18 she had 3 asystolic cardiac arrests and has been intubated and mechanically ventilated since. On 05/24/18 she developed coffee ground emesis and was started on a Protonix gtt. Patient seen and examined at bedside. Unable to perform ROS due to sedation and being mechanically intubated. Family History: Findings - Father age 49 of [place], mother has diabetes Social History: Findings - Disabled, lives with male partner Moreno, who is HCP, smokes 1/2 PPD, no alcohol or drug use Past Medical History: Findings - ESRD on peritoneal dialysis, anemia of renal disease and blood loss, severe COPD, Type 2 diabetes, GERD, CAD, hypertension, hyperlipidemia, diabetic gastroparesis, HIT; PSH: excision melanoma from vulva, stent to RT SFA, stent to R brachial artery, LT eye enucleation, RT foor transmetatarsal amp Objective Active Medications: Acetaminophen (Tylenol Adult Liq*) 650 mg FEED TUBE Q4H PRN Reason: FEVER Chlorhexidine Gluconate (Peridex Mouth Wash 0.12%*) 15 ml TOPICAL Q4H NICOLASA Fentanyl Citrate (Fentanyl*) 50 mcg IV SLOW PU Q1H PRN Reason: PAIN Propofol (Diprivan*) 100 mls @ 15.606 mls/hr IV .(Initial Rate) NICOLASA; Protocol Norepinephrine Bitartrate (Levophed 16 Mcg/Ml Premix Bag*) 4,000 mcg in 250 mls @ 37.5 mls/hr IV .PER PROTOCOL NICOLASA; Protocol Piperacillin Sod/Tazobactam (Sod 3.375 gm/ Sodium Chloride) 100 mls @ 25 mls/ hr IVPB Q12H NICOLASA Insulin Human Lispro (Humalog*) 0 units SUBCUT Q4H NICOLASA; Protocol Midodrine (Midodrine (Nf)) 5 mg PO Q8HR NICOLASA; Protocol Pantoprazole Sodium (Protonix Iv*) 40 mg IV DAILY [facility] Pharmacy Consult (Zosyn Per Pharmacy*) 1 note FOLLOW UP .ZOSYN PER PHARMACY [facility] Vital Signs 05/28/18 05/28/18 05/28/18 17:18 17:30 17:45 Temperature 99.0 F Pulse Rate 108 109 Respiratory Rate Blood Pressure 81/46 114/50 (mmHg) O2 Sat by Pulse 93 94 Oximetry Oxygen Devices in Use Now: Mechanical Ventilator Appearance: NAD, laying in bed Ears/Nose/Mouth/Throat: Mucous Membranes Moist Skin: - - See skin note below Neurological: - - Sedated Result Diagrams: 05/31/18 04:30 05/31/18 04:30 Microbiology and Other Data: Microbiology 05/21/18 21:58 Stool Occult Blood (PARIS) - Final Stool Skin Deviation Note - Skin Deviation Findings Left medial lower leg - Areas of purplish discoloration due to calciphylaxis. Skin is intact. No drainage noted. Left medial thigh - There are areas of dry black eschar and 2 areas with keller colored eschar that is moist. There are also areas of purplish discoloration. Dark colored area seen below the "BB" is a biopsy site. Total area measuring 13 cm x 9.5 cm x 0.1 cm. The surrounding skin is intact. No drainage noted. Sacrum/buttocks - Sacrum with a large area of dry black eschar, measuring 14 cm x 14.5 cm x 0.1 cm. The surrounding skin around the eschar is open with a pink wound base, there are some areas with yellow slough in the wound base. The skin surrounding the wound is intact without erythema. There is excoriated skin to the buttocks. The left buttock has an open area, measuring 2.8 cm x 2.5 cm x 0.1 cm. The right buttock has an open area, measuring 1.8 cm x 1 cm x 0.1 cm. No drainage noted. Right lateral hip/thigh - There is a large wound, measuring 31.5 cm x 6 cm x 0.1 cm. The wound base is black eschar. The surrounding skin is intact. There is a lesion lower on the right thigh, measuring 8.5 cm x 7 cm x 0.1 cm. The wound base is dry eschar. The surrounding skin is intact. No drainage noted. Right anterior thigh - Area of purplish discoloration, there are also areas with keller colored eschar, measuring 7.5 cm x 9.5 cm. The skin is intact, with some dry flaky skin. The surrounding skin is intact. No drainage noted. Right hand - Finger tips with necrotic tissue. The skin is intact, no drainage. The surrounding skin is intact. Left lateral upper thigh and hip, extending to the left flank - Large area of black eschar, measuring 43.5 cm x 16 cm x 0.1 cm. There is purplish discoloration to the surrounding skin towards the top of the wound. The surrounding skin is intact. No drainage noted. Assessment/Plan: Ms. Wright is a 37 year old female with multiple medical problems including ESRD on PD, calciphylaxis, chronic GI bleed, diffuse PVD, and DM2 who presented to the hospital with multiple lesions from calciphylaxis. She is s/p cardiac arrest and is currently sedated and mechanically ventilated. 1. Multiple lesions to LEs and buttocks. These are secondary to calciphylaxis. Recommend leaving the areas open to air. Once she is more stable could consider discussing with general surgery about possible debridement, but in her current state would not unroof the areas. 2. Excoriated buttocks. Secondary to frequent loose stools. This area continues to slowly improve. Apply barrier cream to the buttocks. Can use her own Calazime if she wants. 3. Calciphylaxis. Management per primary medicine team and nephrology. 4. Diabetes Mellitus, type 2. HgA1C 8.8 on 05/01/18. Maintain good glycemic control to allow for wound healing. 5. End stage renal failure, on peritoneal dialysis. 6. Diet. NPO, tube feeding. 7. Code Status. Full code. 8. Disposition. Disposition per primary medicine team. TIME SPENT: Time for this wound consultation was 45 minutes and 30 minutes was spent with the patient assessing, measuring and photographing the wounds. Wound Problem/Plan Is Patient a Wound Clinic Patient: No Attending: Freda Prasad
[2018-05-29] MEDS: Insulin LISPRO* 1 UNITS UNIT SUBCUT SCH ×6 (00:32→21:00)
[2018-05-29] MEDS: Propofol* 100 ML IV SCH ×7 (00:44→21:16)
[2018-05-29] MEDS: Chlorhexidine MOUTHWASH 0.12%* 15 ML UDC TOPICAL SCH ×6 (01:30→21:17)
[2018-05-29] MEDS: CMC:Midodrine (NF) 5 MG TAB PO SCH ×4 (03:51→22:21)
[2018-05-29] MEDS: ZOSYN 3.375 GM Q12H per EXTENDED INFUSION IVPB SCH ×4 (05:35→16:19)
[2018-05-29 05:52] LABS: Hematocrit 24 % (33-41); Hemoglobin 7.7 g/dL (12.0-16.0); Mean Corpuscular HGB Conc 32 g/dL (31-36); Mean Corpuscular Hemoglobin 28 pg (27-31); Mean Corpuscular Volume 85 fL (80-97); Platelet Count 461 10^3/uL (150-450); Red Blood Count 2.81 10^6 /uL (3.70-4.87); Red Cell Distribution Width 17 % (10.5-15); White Blood Count 30.9 10^3/uL (3.5-10.8)
[2018-05-29] MEDS: fentaNYL* 50 MCG/ML 2 ML VIAL (100 MCG VIAL) IV SLOW PU PRN ×3 (06:04→20:43)
[2018-05-29 06:08] LABS: BUN/Creatinine Ratio 7.3 (8-20); EGFR African American 10.9 (>60); Magnesium 1.5 mg/dL (1.9-2.7); Phosphorus 5.5 mg/dL (2.5-5.0)
[2018-05-29 06:11] LABS: Potassium 2.7 mmol/L (3.5-5.0)
--- NOTE | 2018-05-29 06:14 | PN ---
Progress Note - Progress Note Date of Service: 05/29/18 Note: Ordered KCl 20 mEq and Mg 2 gm for low K and Mg.
[2018-05-29] MEDS ORDERED: Magnesium Sulfate 2 GM IV* 2 GM/50 ML BAG IVPB ONE (06:30)
[2018-05-29] MEDS ORDERED: KCL 20 MEQ/100 ML IVPREMIX* 20 MEQ/100 ML BAG IV ONE (06:30)
[2018-05-29] MEDS: Pantoprazole IV* 40 MG IV SCH (08:32)
[2018-05-29] MEDS ORDERED: Iron Sucrose* 20 MG/ML 5 ML VIAL IV PUSH ONE (09:02)
--- NOTE | 2018-05-29 09:17 | PN ---
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 She was recently admitted from 04/29-05/19 during which time she was treated for PVD, diagnosed with calciphylaxis of the irght third finger, began on infusions of sodium thiosulfate, was intubated for acute on chronic respiratory failure. She was also treated for a chronic GI bleed, was seen by Dr Hartman regarding this. There was discussion of chronic ischemic colitis, but colonoscopy deferred due to concern of risk vs benefit. She has been anticoagulated with warfarin, which led to epistaxis when INR >3, so she was switched to an DOAC. She continued to have anemia and heme positive stool on the DOAC. She had been recently discharged to [facility] for necrosis of hand secondary to calciphylaxis on 05/19. She left there AMA in the evening of 05/20 as she didn't like the nursing care and returned directly back to [facility]. She reports bilateral hip pain and rectal bleeding. 05/21: Wound team assessment documented extensive lesions to lower extremities and buttocks secondaryt o calciphylaxis. Anticoagulation on hold for history of GI bleed. Nephrology consulted. continued on sodium thiosulfate for calciphylaxis. Continued on sodium bicarbonate for acidosis. Seen by hospice but family declined palliative options as regards both symptom control and comfort care. Pain service consulted; given poor prognosis dilaudid liberalized. 05/22: Developed hypoxia with sats 80%. CXR with pulmonary edema. HD volume removal increased. Transferred to ICU. Refusing BiPAP. Started on vapotherm. 05/23: remains on vapotherm. In afternoon sats dropped again to 70% and pt agreed to BiPAP with subsequent improvement to 97%. Shortly thereafter she went into asystole and was intubated. She had 3 asystolic codes, regaining pulses between. After pulses regained for the third time, family made patient DNR. On epinephrine @ 20 mcg/min. Peripheral pulses but unable to get good BP readings. Rangely not an option given extensive arterial calcifications and stents. 05/24: developed coffee ground emesis, started on Protonix gtt. Following commands. Remains on highdose levophed. 05/25: Following commands intermittently. Failed SBT secondary to tachypnea and tachycardia. 05/26: no interval events. continues to require FiO2 80-100% 05/28: Dose of sodium thiosulfate given Vital Signs: Temp Pulse Resp BP SpO2 FiO2 98.6 F 120 34 95/57 98 80 05/29/18 03:25 05/29/18 07:00 05/29/18 07:00 05/29/18 06:31 05/29/18 07:00 05/29 04:00 Physical Exam: Gen: resting comfortably HEENT: ETT in place Lungs: tachypneic. coarse inspiratory noises Cardiac: RRR Abdomen: soft, NTND Extremities: warm, dry. Necrosis stable, no erythema Neuro: sedated Fluid Balance (Past 24 Hours): I= O= Net Intake & Output 05/27/18 05/28/18 05/29/18 05/30/18 06:59 06:59 06:59 06:59 Intake Total 1800 20479 Output Total 350 0 Balance 1450 2047 2078 Weight 183 lb 9.6 oz 177 lb 8 oz 183 lb 3.2 oz Intake: IV Fluids 8 134 42 NS 8 134 13 Zosyn 29 IVPB 119 238 396 NS 42 Sodium Thiosulfate 236 Zosyn 119 238 118 Medicated IV 1353 785 995 CC - Propofol/Diprivan 729 744 725 norepi 624 41 vanco 270 Oral 0 0 Tube Feeding 691 556 Tube Feeding Flush Amount 200 90 Packed Cells 320 Output: NG Tube Drainage Amount 350 Urine 0 0 Tube Feeding Residual 0 Amount Wasted Other: Date of Last Bowel 05/27/18 05/28/18 Movement # Bowel Movements 1 1 1 Estimated Stool Amount Medium Large Large # Voids 0 Labs: Laboratory Results - last 24 hr 05/27/18 05/28/18 05/28/18 04:20 10:45 16:04 WBC RBC Hgb Hct MCV MCH MCHC RDW Plt Count MPV Sodium 139 D Potassium 2.8 L Chloride 94 L Carbon Dioxide 23 Anion Gap 22 H BUN 41 H Creatinine 6.04 H Est GFR ( Amer) 9.4 Est GFR (Non-Af Amer) 7.8 BUN/Creatinine Ratio 6.8 L Glucose 171 H POC Glucose (mg/dL) 299 H Calcium 8.5 L Phosphorus Magnesium Triglycerides 297 Cholesterol 152 LDL Cholesterol 80 HDL Cholesterol 12.4 Procalcitonin 66 H Vancomycin Trough 11.7 05/28/18 05/29/18 05/29/18 20:13 00:24 03:46 WBC RBC Hgb Hct MCV MCH MCHC RDW Plt Count MPV Sodium Potassium Chloride Carbon Dioxide Anion Gap BUN Creatinine Est GFR ( Amer) Est GFR (Non-Af Amer) BUN/Creatinine Ratio Glucose POC Glucose (mg/dL) 274 H 285 H 249 H Calcium Phosphorus Magnesium Triglycerides Cholesterol LDL Cholesterol HDL Cholesterol Procalcitonin Vancomycin Trough 05/29/18 05/29/18 05/29/18 05:40 05:40 05:46 WBC 30.9 H RBC 2.81 L Hgb 7.7 L Hct 24 L MCV 85 MCH 28 MCHC 32 RDW 17 H Plt Count 461 H MPV 9.0 Sodium 143 Potassium 2.7 L* Chloride 93 L Carbon Dioxide 18 L Anion Gap 32 H BUN 39 H Creatinine 5.32 H Est GFR ( Amer) 10.9 Est GFR (Non-Af Amer) 9.0 BUN/Creatinine Ratio 7.3 L Glucose 305 H POC Glucose (mg/dL) 294 H Calcium 9.0 Phosphorus 5.5 H Magnesium 1.5 L Triglycerides Cholesterol LDL Cholesterol HDL Cholesterol Procalcitonin Vancomycin Trough 05/29/18 08:31 WBC RBC Hgb Hct MCV MCH MCHC RDW Plt Count MPV Sodium Potassium Chloride Carbon Dioxide Anion Gap BUN Creatinine Est GFR ( Amer) Est GFR (Non-Af Amer) BUN/Creatinine Ratio Glucose POC Glucose (mg/dL) 271 H Calcium Phosphorus Magnesium Triglycerides Cholesterol LDL Cholesterol HDL Cholesterol Procalcitonin Vancomycin Trough Studies: 05/27 CXR - Linear streaky densitiies in RUL and RLL. improved since 05/25 05/26 AXR - no ileus 05/25 CXR - unchanged bilateral pulmonary infiltrates 05/24 CXR - patchy airspace opacities concerning for aspiration. small pleural effusions 05/23 CXR - bibasilar atelectasis vs consolidation 05/22 CXR - suspicious for cardiogenic pulmonary edema, improved as compared to Recent CT Aorta with run off this admission with moderate-severe R common femoral artery stenosis, severe b/l popliteal artery stenosis, near complete occlusion of distal L superficial fem artery stent. Dopplers of b/l UE's obtained at [facility] on 05/20/18 pt had good biphasic waves of b /l radial and ulnar arteries, but significant stenosis of all 5 fingers on R likely due to calcifilaxis. Nutrition: TF Impression: 37 yo F readmitted after recent admission for acute respiratory failure, calciphylaxis after leaving [facility]. Complaining of GI bleed and bilateral hip pain. Developed increasing hypoxia on 05/22 progressing to biPAP. Also with asystolic code x 3 on 05/23 with persistent shock but following commands after. Remains on vasopressors and ventilator. Poor prognosis secondary to calciphylaixs and complications of diabetes. Now with aspiration pneumonia. Plan: 37 yo F readmitted after recent admission for acute respiratory failure, calciphylaxis after leaving [facility]. Complaining of GI bleed and bilateral hip pain. Developed increasing hypoxia on 05/22 progressing to biPAP. Also with asystolic code x 3 on 05/23 with persistent shock but following commands after. Remains on vasopressors and ventilator. Poor prognosis secondary to calciphylaixs and complications of diabetes. Now with aspiration pneumonia. 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; (2) Persistent shock ; (3) Chronic hyperlipidemia; (4) CAD; (5) PAD; (6) Chronic essential hypertension; (7) stent to RT SFA; (8) stent to R brachial artery, (9) Acute systolic CHF; (10) Mild to moderate pulmonary HTN -- HR 95-129 -- SBP 48-146 -- Telemetry -- Vasopressors Levophed off Midodrine -- TTE moderate concentric left ventricular hypertrophy mild global hypokinesis, LVEF decreased at 45-50% septal flattening of interventricular septum consistent with right ventricular or volume overload assessment of diastolic function nondiagnostic right ventricle mild to moderately dilated right ventricular global systolic function mildly reduced trace aortic regurgitation mild to moderate tricuspid regurgitation mild to moderate pulmonary hypertension trace pulmonic regurgitation Home meds: Midodrine Pulmonary: (1) Acute hypoxic respiratory failure requiring intubation, with hypoxia and hypercapnea; (2) Aspiration pneumonia; (3) hx of asthma; (4) hx of tobacco abuse; (5) COPD -- RR 24-45 -- sats 89-100 on GgH492%, target SpO2 90 as pt lives at home high 80s to low 90s on 5L NC -- vent, wean as tolerated. -- CXR: Linear streaky densities in RUL and RLL, improved as compared to 05/25 -- Pt failing to make any progress on weaning of vent. Today is vent day six and still on FiO2 80-90%. Anticipate that by day 10 she will likely still require mechanical ventilation. I reached out to the ethics committee to get their input on whether subjecting Ms. Wright to a surgical procedure such as a tracheotomy would be considered reasonable as her life expectancy is most likely in the 6 month range based on her chronic conditions, not taking into account her extremely poor prognosis from her current illness. It was their opinion that we are obligated to offer tracheostomy to the family when it becomes appropriate. At this time it is still a bit early, and she will need to have an FiO2 more in the 50-60% range before such a procedure would be safe to perform. Anticipate starting discussions with family/healthcare proxy regarding her wishes for trach once able to make more progress on weaning of FiO2. Home meds: Dulera, Albuterol, 5L home O2 Gastrointestinal: (1) Acute GI bleed, likely secondary to subacute ischemic colitis, resolved; (2) Chronic gastroparesis; (3) Chronic GERD -- diet: TF -- bowel regimen: None -- ulcer prophylaxis: Protonix Home meds: Prochlorperazine, Zofran, Dronabinol, Maalox Endocrine: (1) Secondary hyperparathyroidism; (2) Type 2 diabetes mellitus -- monitor BGs -- SSI adjusted and Lantus added for better glycemic control Home meds: Lispro Renal: (1) ESRD on PD; (2) Calcinosis -- UOP: anuric at baseline -- I/O:2079 ml in / 0 ml out -- Cr 5.36 -- Lytes Na 143 from 130 K 2.7 Ca 9.0 Phos 5.5, follow trend Mag 1.5, follow trend -- Nephrology following, on PD -- restarted sodium thiosulfate. Plan for every other day dosing as blood pressure permits. Next dose would be 4/5 Home meds: Sodium thiosulfate Infectious disease: (1) Aspiration pneumonia; (2) Klebsiella UTI; (3) Sepsis -- Tmax 99.2 -- WBC 30.9 from 26.0 -- Procalcitonin pending -- Micro 4/ Sputum yeast 1+, normal perry 2+ blood NGTD 05/26 UA (+) LE, negative nitrates. 3+ WBC Urine Klebsiella blood ordered -- ABX Zosyn Vancomycin, dosing by level Home meds: None Neurologic: (1) Chronic depression; (2) Chronic pain syndrome -- Fentanyl PRN for pain control -- Propofol gtt for sedation -- Tyelnol as needed -- daily sedation vacations Home meds: Methadone, Ativan, Dilaudid, Fentanyl patch, Cymbalta, Tylenol Hematological: (1) Acute on chronic anemia secondary to blood loss and chronic renal disease; (2) hx of malignant melanoma; (3) Hx of HIT -- Hgb 7.7 from 8.2 -- Plt 461 from 414 -- DVT prophylaxis: Unable to use Arixtra or Argatroban per Nephrology, unable to use heparin given prior HIT. Difficult to control INR on Coumadin. Multiple GI bleeds on Eliquis. SCDs at this time and re-evaluate for direct Xa inhibitor when less unstable. -- Iron sucrose x 1 Home meds: Epogen Metabolic: No acute issues Home meds: Sodium bicarbonate Deep vein thrombosis prophylaxis: Unable to use Arixtra or Argatroban per Nephrology, unable to use heparin given prior HIT. Difficult to control INR on Coumadin. Multiple GI bleeds on Eliquis. SCDs at this time and re-evaluate for direct Xa inhibitor when less unstable. Dietary: Protonix Condition: critical Prognosis: poor Code status: DNR, continue intubation Disposition: continue ICU Care Cumulative time spent in the care of this patient (excluding any procedure time) : at least 40 minutes. Patient care included clinical interview (with patient and/or family), bedside exam of the patient, review of labs, x-rays, and other ancillary data, coordination of (respiratory, nursing care, review of patient's records, discussion regarding patients management with involved consultants, primary physician, pharmacists, and other healthcare personnel (dietary, case management , physical/occupational therapy etc.)
[2018-05-29] MEDS ORDERED: Iron Sucrose* 200 MG in NS 0.9% 100 ML* 100 ML IVPB ONE (09:30)
[2018-05-29] MEDS ORDERED: Insulin LISPRO* 1 UNITS UNIT SUBCUT SCH (09:51)
[2018-05-29] MEDS: Insulin GLARGINE(*) 1 UNITS UNIT SUBCUT SCH ×2 (09:55→22:20)
[2018-05-29] MEDS ORDERED: Morphine 4 MG/ML VIAL (1 ml) 4 MG/ML VIAL IV ONE (11:55)
[2018-05-29] MEDS ORDERED: Morphine 4 MG/ML VIAL (1 ml) 4 MG/ML VIAL ONE (12:07)
[2018-05-29] MEDS ORDERED: fentaNYL* 50 MCG/ML 2 ML VIAL (100 MCG VIAL) IV SLOW PU ONE (15:49)
[2018-05-29] MEDS: Acetaminophen ADULT LIQ* 650 MG/20.3 ML UDC FEED TUBE PRN ×2 (16:18→22:21)
[2018-05-29] MEDS ORDERED: Albuterol/Ipratropium NEB.SOL* Albuterol 2.5 MG/Ipratropium 0.5 MG 3 ML ONE (16:45)
[2018-05-29] MEDS: Albuterol/Ipratropium NEB.SOL* Albuterol 2.5 MG/Ipratropium 0.5 MG 3 ML INH PRN (16:53)
[2018-05-30] MEDS: Propofol* 100 ML IV SCH ×3 (00:50→13:25)
[2018-05-30] MEDS: Insulin LISPRO* 1 UNITS UNIT SUBCUT SCH ×6 (01:43→21:03)
[2018-05-30] MEDS: Chlorhexidine MOUTHWASH 0.12%* 15 ML UDC TOPICAL SCH ×6 (04:32→21:10)
[2018-05-30] MEDS: ZOSYN 3.375 GM Q12H per EXTENDED INFUSION IVPB SCH ×4 (06:33→17:57)
[2018-05-30 07:22] LABS: Hematocrit 24 % (33-41); Hemoglobin 7.4 g/dL (12.0-16.0); Mean Corpuscular HGB Conc 31 g/dL (31-36); Mean Corpuscular Hemoglobin 27 pg (27-31); Mean Corpuscular Volume 86 fL (80-97); Mean Platelet Volume 9.5 fL (7.4-10.4); Platelet Count 451 10^3/uL (150-450); Red Blood Count 2.75 10^6 /uL (3.70-4.87); Red Cell Distribution Width 17 % (10.5-15); White Blood Count 27.4 10^3/uL (3.5-10.8)
[2018-05-30 07:43] LABS: BUN/Creatinine Ratio 8.2 (8-20); Calcium 9.3 mg/dL (8.6-10.3); EGFR African American 10.8 (>60); EGFR Non-African American 8.9 (>60); Phosphorus 6.7 mg/dL (2.5-5.0)
[2018-05-30 07:44] LABS: Potassium 2.7 mmol/L (3.5-5.0)
[2018-05-30] MEDS ORDERED: Potassium Chloride LIQUID* 20 MEQ PACKET ONE (08:01)
[2018-05-30] MEDS: Pantoprazole IV* 40 MG IV SCH (08:07)
[2018-05-30] MEDS ORDERED: Midazolam concentrated* 5 MG/ML 1 ml VIAL IV ONE (09:26)
[2018-05-30] MEDS: CMC:Midodrine (NF) 5 MG TAB PO SCH ×3 (09:52→21:10)
[2018-05-30] MEDS: Midazolam IV for DRIP* 100 MG in NS 0.9% 100 ML* 80 ML IV SCH ×2 (11:07→20:19)
[2018-05-30 11:20] LABS: Body Fluid Source Peritonial Fluid
[2018-05-30 12:47] LABS: Body Fluid Mono 2 %
[2018-05-30] MEDS: Insulin GLARGINE(*) 1 UNITS UNIT SUBCUT SCH ×2 (13:05→21:02)
[2018-05-30] MEDS ORDERED: Insulin GLARGINE(*) 1 UNITS UNIT SUBCUT SCH (15:24)
[2018-05-30] MEDS ORDERED: SODIUM THIOSULFATE 12.5 GM IV ONE (15:31)
--- NOTE | 2018-05-30 15:32 | PN ---
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 She was recently admitted from 04/29-05/19 during which time she was treated for PVD, diagnosed with calciphylaxis of the irght third finger, began on infusions of sodium thiosulfate, was intubated for acute on chronic respiratory failure. She was also treated for a chronic GI bleed, was seen by Dr Hartman regarding this. There was discussion of chronic ischemic colitis, but colonoscopy deferred due to concern of risk vs benefit. She has been anticoagulated with warfarin, which led to epistaxis when INR >3, so she was switched to an DOAC. She continued to have anemia and heme positive stool on the DOAC. She had been recently discharged to [facility] for necrosis of hand secondary to calciphylaxis on 05/19. She left there AMA in the evening of 05/20 as she didn't like the nursing care and returned directly [place] [facility] She reports bilateral hip pain and rectal bleeding. 05/21: Wound team assessment documented extensive lesions to lower extremities and buttocks secondaryt o calciphylaxis. Anticoagulation on hold for history of GI bleed. Nephrology consulted. continued on sodium thiosulfate for calciphylaxis. Continued on sodium bicarbonate for acidosis. Seen by hospice but family declined palliative options as regards both symptom control and comfort care. Pain service consulted; given poor prognosis dilaudid liberalized. 05/22: Developed hypoxia with sats 80%. CXR with pulmonary edema. HD volume removal increased. Transferred to ICU. Refusing BiPAP. Started on vapotherm. 05/23: remains on vapotherm. In afternoon sats dropped again to 70% and pt agreed to BiPAP with subsequent improvement to 97%. Shortly thereafter she went into asystole and was intubated. She had 3 asystolic codes, regaining pulses between. After pulses regained for the third time, family made patient DNR. On epinephrine @ 20 mcg/min. Peripheral pulses but unable to get good BP readings. Burns not an option given extensive arterial calcifications and stents. 05/24: developed coffee ground emesis, started on Protonix gtt. Following commands. Remains on highdose levophed. 05/25: Following commands intermittently. Failed SBT secondary to tachypnea and tachycardia. 05/26: no interval events. continues to require FiO2 80-100% 05/28: Dose of sodium thiosulfate given 05/29: Tolerated decrease in FIO2 to 75% Vital Signs: Temp Pulse Resp BP SpO2 FiO2 97.7 F 103 44 128/28 96 75 05/30/18 12:00 05/30/18 11:01 05/30/18 11:07 05/30/18 11:01 05/30/18 11:01 05/30 08:16 Physical Exam: Gen: resting comfortably HEENT: ETT in place Lungs: CTAB Cardiac: RRR Abdomen: soft, nondistended. no involuntary guarding Extremities: cool, dry. Eschar and ischemic lesions stable Neuro: sedated. Fluid Balance (Past 24 Hours): I= O= Net Intake & Output 05/28/18 05/29/18 05/30/18 05/31/18 06:59 06:59 06:59 06:59 Intake Total 2047 2078 1969.9 Output Total 0 2000 50 Balance 2047 2078 -30.1 -50 Weight 177 lb 8 oz 183 lb 3.2 oz 182 lb 3.2 oz Intake: IV Fluids 134 42 519.9 NS 134 13 519.9 Zosyn 29 IVPB 238 396 100 NS 42 Sodium Thiosulfate 236 Zosyn 238 118 100 Medicated IV 785 995 428 CC - Propofol/Diprivan 744 725 428 norepi 41 vanco 270 Oral 0 0 Tube Feeding 691 556 842 Tube Feeding Flush Amount 200 90 80 Output: Urine 0 0 Liquid Stool 2000 50 Tube Feeding Residual 0 0 Amount Wasted Other: Date of Last Bowel 05/28/18 04/29/2018 Movement # Bowel Movements 1 1 Estimated Stool Amount Large Large Large Medium Labs: Laboratory Results - last 24 hr 05/29/18 05/29/18 05/29/18 13:04 16:28 20:37 WBC RBC Hgb Hct MCV MCH MCHC RDW Plt Count MPV Sodium Potassium Chloride Carbon Dioxide Anion Gap BUN Creatinine Est GFR ( Amer) Est GFR (Non-Af Amer) BUN/Creatinine Ratio Glucose POC Glucose (mg/dL) 297 H 285 H 361 H Calcium Phosphorus Magnesium Fluid Source Fluid Volume Fluid Color Fluid Appearance Fluid WBC Fluid RBC Fluid Tot Cell Count Fluid Neutrophils Fluid Monocytes 05/30/18 05/30/18 05/30/18 01:19 07:00 07:00 WBC 27.4 H RBC 2.75 L Hgb 7.4 L Hct 24 L MCV 86 MCH 27 MCHC 31 RDW 17 H Plt Count 451 H MPV 9.5 Sodium 139 Potassium 2.7 L* Chloride 93 L Carbon Dioxide 20 L Anion Gap 26 H BUN 44 H Creatinine 5.36 H Est GFR ( Amer) 10.8 Est GFR (Non-Af Amer) 8.9 BUN/Creatinine Ratio 8.2 Glucose 158 H POC Glucose (mg/dL) 251 H Calcium 9.3 Phosphorus 6.7 H Magnesium 2.0 Fluid Source Fluid Volume Fluid Color Fluid Appearance Fluid WBC Fluid RBC Fluid Tot Cell Count Fluid Neutrophils Fluid Monocytes 05/30/18 05/30/18 09:15 12:31 WBC RBC Hgb Hct MCV MCH MCHC RDW Plt Count MPV Sodium Potassium Chloride Carbon Dioxide Anion Gap BUN Creatinine Est GFR ( Amer) Est GFR (Non-Af Amer) BUN/Creatinine Ratio Glucose POC Glucose (mg/dL) 307 H Calcium Phosphorus Magnesium Fluid Source Peritonial fluid Fluid Volume 4 Fluid Color Colorless Fluid Appearance Clear Fluid WBC 1396 Fluid RBC 0 Fluid Tot Cell Count 100 Fluid Neutrophils 98 Fluid Monocytes 2 Studies: 05/30 CXR - cardiomegaly. lung hernandez clear. no pneumonia identified. 05/27 CXR - Linear streaky densitiies in RUL and RLL. improved since 05/25 05/26 AXR - no ileus 05/25 CXR - unchanged bilateral pulmonary infiltrates 05/24 CXR - patchy airspace opacities concerning for aspiration. small pleural effusions 05/23 CXR - bibasilar atelectasis vs consolidation 05/22 CXR - suspicious for cardiogenic pulmonary edema, improved as compared to Recent CT Aorta with run off this admission with moderate-severe R common femoral artery stenosis, severe b/l popliteal artery stenosis, near complete occlusion of distal L superficial fem artery stent. Dopplers of b/l UE's obtained at [facility] on 05/20/18 pt had good biphasic waves of b /l radial and ulnar arteries, but significant stenosis of all 5 fingers on R likely due to calcifilaxis. Nutrition: TF Impression: 37 yo F readmitted after recent admission for acute respiratory failure, calciphylaxis after leaving [facility]. Complaining of GI bleed and bilateral hip pain. Developed increasing hypoxia on 05/22 progressing to biPAP. Also with asystolic code x 3 on 05/23 with persistent shock but following commands after. Remains on vasopressors and ventilator. Poor prognosis secondary to calciphylaixs and complications of diabetes. Now with suspected aspiration pneumonia overlying extensive chronic lung disease. 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; (2) Septic shock; (3 ) Chronic hyperlipidemia; (4) CAD; (5) PAD; (6) Chronic essential hypertension; (7) stent to RT SFA; (8) stent to R brachial artery, (9) Acute systolic CHF; (10 ) Mild to moderate pulmonary HTN -- HR 80-146 -- SBP 48-146 -- Telemetry -- Vasopressors Midodrine, wean as able -- TTE moderate concentric left ventricular hypertrophy mild global hypokinesis, LVEF decreased at 45-50% septal flattening of interventricular septum consistent with right ventricular or volume overload assessment of diastolic function nondiagnostic right ventricle mild to moderately dilated right ventricular global systolic function mildly reduced trace aortic regurgitation mild to moderate tricuspid regurgitation mild to moderate pulmonary hypertension trace pulmonic regurgitation Home meds: Midodrine Pulmonary: (1) Acute hypoxic respiratory failure requiring intubation, with hypoxia and hypercapnea; (2) Aspiration pneumonia; (3) hx of asthma; (4) hx of tobacco abuse; (5) COPD -- RR 28-51 -- sats 89-98 on PtG034%, target SpO2 90 as pt lives at home high 80s to low 90s on 5L NC -- vent, wean as tolerated. -- CXR: cardiomegaly. no pneumonia -- Pt failing to make any significant progress on weaning of vent. Anticipate that by vent day 10 she will likely still require mechanical ventilation. I reached out to the ethics committee to get their input on whether subjecting Ms. Wright to a surgical procedure such as a tracheotomy would be considered reasonable as her life expectancy is most likely in the 6 month range based on her chronic conditions, not taking into account her extremely poor prognosis from her current illness. It was their opinion that we are obligated to offer tracheostomy to the family when it becomes appropriate. At this time it is still a bit early, and she will need to have an FiO2 more in the 50-60% range before such a procedure would be safe to perform. Anticipate starting discussions with family/healthcare proxy regarding her wishes for trach once able to make more progress on weaning of FiO2. -- Have not yet attempted CTA to assess for PE as cause of hypoxia due to concerns for stability to travel given high O2 needs and intermittent hypotension. Also anticoagulation is not currently possible as unable to use Arixtra or Argatroban per Nephrology, unable to use heparin given prior HIT. Difficult to control INR on Coumadin. Multiple GI bleeds on Eliquis. GI bleed this admission. Given inability to anticoagulate safely, the management would not change even if CTA were positive at this time. She may be a candidate when more stable. -- Duonebs Home meds: Dulera, Albuterol, 5L home O2 Gastrointestinal: (1) Acute GI bleed, likely secondary to subacute ischemic colitis, resolved; (2) Chronic gastroparesis; (3) Chronic GERD -- diet: TF -- bowel regimen: None -- ulcer prophylaxis: Protonix Home meds: Prochlorperazine, Zofran, Dronabinol, Maalox Endocrine: (1) Secondary hyperparathyroidism; (2) Type 2 diabetes mellitus -- monitor BGs -- SSI and Lantus, dose adjusted for better glycemic control Home meds: Lispro Renal: (1) ESRD on PD; (2) Calcinosis -- UOP: anuric at baseline -- I/O:1969 ml in / 0 ml out -- Cr 5.36 -- Lytes Na 139 from 143 K 2.7, replaced Ca 9.3 Phos 6.7 from 5.5, follow trend Mag 2.0 -- Nephrology following, on PD -- Sodium thiosulfate. Every other day dosing as blood pressure permits. Next dose would be 4/7 Home meds: Sodium thiosulfate Infectious disease: (1) Aspiration pneumonia; (2) Klebsiella UTI; (3) Possible Micrococcus bacteremia vs contaminant; (4) Possible Spontaneous Bacterial Peritonitis; (5) Sepsis -- Tmax 103.6 -- WBC 27.4 from 30.9 -- Procalcitonin pending -- Micro 4/5 Blood ordered Peritoneal fl 1396 WBC to 0 RBC. Culture pending 05/27 Sputum yeast 1+, normal perry 2+ blood Micrococcus luteus/Lylae -probable contaminant, repeat cultures 05/26 UA (+) LE, negative nitrates. 3+ WBC Urine Klebsiella blood ordered -- ABX Zosyn Vancomycin, dosing by level Home meds: None Neurologic: (1) Chronic depression; (2) Chronic pain syndrome -- Fentanyl PRN for pain control -- Propofol and versed gtt for sedation -- Tyelnol as needed -- daily sedation vacations Home meds: Methadone, Ativan, Dilaudid, Fentanyl patch, Cymbalta, Tylenol Hematological: (1) Acute on chronic anemia secondary to blood loss and chronic renal disease; (2) hx of malignant melanoma; (3) Hx of HIT -- Hgb 7.4 from 7.7 -- Plt 451 from 461 -- DVT prophylaxis: Unable to use Arixtra or Argatroban per Nephrology, unable to use heparin given prior HIT. Difficult to control INR on Coumadin. Multiple GI bleeds on Eliquis. SCDs at this time and re-evaluate for direct Xa inhibitor when less unstable. -- Iron sucrose x 1 Home meds: Epogen Metabolic: No acute issues Home meds: Sodium bicarbonate Deep vein thrombosis prophylaxis: Unable to use Arixtra or Argatroban per Nephrology, unable to use heparin given prior HIT. Difficult to control INR on Coumadin. Multiple GI bleeds on Eliquis. SCDs at this time and re-evaluate for direct Xa inhibitor when less unstable. Dietary: Protonix Condition: critical Prognosis: poor Code status: DNR, continue intubation Disposition: continue ICU Care Family updated at bedside on progress and septic workup Cumulative time spent in the care of this patient (excluding any procedure time) : at least 40 minutes. Patient care included clinical interview (with patient and/or family), bedside exam of the patient, review of labs, x-rays, and other ancillary data, coordination of (respiratory, nursing care, review of patient's records, discussion regarding patients management with involved consultants, primary physician, pharmacists, and other healthcare personnel (dietary, case management , physical/occupational therapy etc.)
[2018-05-30] MEDS ORDERED: Sodium Thiosulfate 25 GM in 200 ML IV ONE (16:00)
[2018-05-30] MEDS: Albuterol/Ipratropium NEB.SOL* Albuterol 2.5 MG/Ipratropium 0.5 MG 3 ML INH PRN (16:48)
[2018-05-30] MEDS ORDERED: Vancomycin(*) 1,000 MG in NS 0.9% 250 ML* 250 ML IVPB ONE (20:00)
[2018-05-31] MEDS ORDERED: Insulin LISPRO* 1 UNITS UNIT SUBCUT SCH
[2018-05-31] MEDS: Insulin LISPRO* 1 UNITS UNIT SUBCUT SCH ×5 (00:32→17:39)
[2018-05-31] MEDS: Midazolam IV for DRIP* 100 MG in NS 0.9% 100 ML* 80 ML IV SCH ×3 (01:59→21:39)
[2018-05-31] MEDS: Chlorhexidine MOUTHWASH 0.12%* 15 ML UDC TOPICAL SCH ×6 (01:59→21:38)
[2018-05-31 04:58] LABS: BUN/Creatinine Ratio 9.3 (8-20); EGFR African American 11.8 (>60); EGFR Non-African American 9.8 (>60); Magnesium 1.9 mg/dL (1.9-2.7); Phosphorus 6.6 mg/dL (2.5-5.0); Potassium 2.8 mmol/L (3.5-5.0)
[2018-05-31] MEDS: Propofol* 100 ML IV SCH ×3 (05:17→17:22)
[2018-05-31 05:21] LABS: Hematocrit 26 % (33-41); Hemoglobin 8.2 g/dL (12.0-16.0); Mean Corpuscular HGB Conc 32 g/dL (31-36); Mean Corpuscular Hemoglobin 27 pg (27-31); Mean Corpuscular Volume 85 fL (80-97); Mean Platelet Volume 9.7 fL (7.4-10.4); Platelet Count 516 10^3/uL (150-450); Red Blood Count 3.03 10^6 /uL (3.70-4.87); Red Cell Distribution Width 17 % (10.5-15); White Blood Count 25.3 10^3/uL (3.5-10.8)
[2018-05-31] MEDS: CMC:Midodrine (NF) 5 MG TAB PO SCH ×3 (06:07→21:38)
[2018-05-31] MEDS: ZOSYN 3.375 GM Q12H per EXTENDED INFUSION IVPB SCH ×4 (06:07→17:44)
[2018-05-31] MEDS: Insulin GLARGINE(*) 1 UNITS UNIT SUBCUT SCH (09:19)
[2018-05-31] MEDS: Pantoprazole IV* 40 MG IV SCH (09:20)
[2018-05-31] MEDS ORDERED: Insulin GLARGINE(*) 1 UNITS UNIT SUBCUT ONE (11:27)
--- NOTE | 2018-05-31 11:47 | PN ---
Progress Note - Progress Note Date of Service: 05/31/18 Note: Progress Note -- Critical Care 24 hour events/significant events: -tmax 100.4 -on versed/propofol Tele: NSR Vitals: Vital Signs Temp 100.4 F 05/31/18 10:23 Pulse 114 05/31/18 10:23 Resp 25 05/31/18 06:00 BP 82/51 05/31/18 10:23 Pulse Ox 97 05/31/18 10:23 Intake & Output 05/30/18 05/31/18 05/31/18 18:59 06:59 18:59 Intake Total 672 1302 Output Total 170 1580 Balance 502 -278 Weight 84.277 kg Intake: IV Fluids 286 455 NS 150 166 Vanco 250 Zosyn 136 39 Medicated IV 386 187 CC - Propofol/Diprivan 386 187 Tube Feeding 465 Tube Feeding Flush Amount 120 NG Tube Irrigate Amount 75 Output: Urine 1250 Liquid Stool 170 330 Other: Estimated Stool Amount Medium O2/Vent: 14/450/+8/60% Infusions: propofol 30, versed 4 Medications: Acetaminophen (Tylenol Adult Liq*) 650 mg FEED TUBE Q4H PRN PRN Reason: FEVER Last Admin: 05/29/18 22:21 Dose: 650 mg Albuterol/Ipratropium (Duoneb (Albuterol 2.5 Mg/Ipratropium 0.5 Mg)) 1 neb INH Q4H PRN PRN Reason: SOB/WHEEZING Last Admin: 05/30/18 16:48 Dose: 1 neb Chlorhexidine Gluconate (Peridex Mouth Wash 0.12%*) 15 ml TOPICAL Q4H [facility] Last Admin: 05/31/18 09:20 Dose: 15 ml Fentanyl Citrate (Fentanyl*) 50 mcg IV SLOW PU Q1H PRN PRN Reason: PAIN Last Admin: 05/29/18 20:43 Dose: 50 mcg Propofol (Diprivan*) 100 mls @ 15.606 mls/hr IV .(Initial Rate) NICOLASA; Protocol Last Admin: 05/31/18 05:17 Dose: 18.2 mls/hr Norepinephrine Bitartrate (Levophed 16 Mcg/Ml Premix Bag*) 4,000 mcg in 250 mls @ 37.5 mls/hr IV .PER PROTOCOL NICOLASA; Protocol Last Admin: 05/27/18 04:22 Dose: 22.5 mls/hr Piperacillin Sod/Tazobactam (Sod 3.375 gm/ Sodium Chloride) 100 mls @ 25 mls/ hr IVPB Q12H [facility] Last Admin: 05/31/18 06:07 Dose: 25 mls/hr Midazolam HCl 100 mg/ Sodium (Chloride) 100 mls @ 0 mls/hr IV Q24H [facility]; Protocol Last Admin: 05/31/18 01:59 Dose: Not Given Insulin Glargine (Lantus(*)) 10 units SUBCUT 0800,2000 [facility] Last Admin: 05/31/18 09:19 Dose: 10 units Insulin Human Lispro (Humalog*) 0 units SUBCUT FS Q4 ICU [facility]; Protocol Last Admin: 05/31/18 09:38 Dose: 4 unit Midodrine (Midodrine (Nf)) 5 mg PO Q8HR [facility]; Protocol Last Admin: 05/31/18 06:07 Dose: 5 mg Pantoprazole Sodium (Protonix Iv*) 40 mg IV DAILY [facility] Last Admin: 05/31/18 09:20 Dose: 40 mg Pharmacy Consult (Zosyn Per Pharmacy*) 1 note FOLLOW UP .ZOSYN PER PHARMACY [facility] Pharmacy Consult (Vancomycin Random Level*) 1 note FOLLOW UP 1900 PRN PRN Reason: PER PROTOCOL Physical Exam: Constitutional: intubated, sedated, no distress, no diaphoresis Head: normocephalic, atraumatic Eyes: no pallor, no icterus ENT: moist mucous membranes Neck: soft, supple, no jvd CVS: normal rate, regular, no murmur Resp: bilateral air entry, no RRW, no acc muscle use Abdomen/GI: soft, nondistended, BS+; Right midline lower PD cathetor+ Ext/Msk: warm, no edema; Right 2-4th digits ischemic Skin: warm; bilateral LE areas of skin necrosis+ Neuro: sedated, intubated, pupils reactive Labs: Laboratory Results - last 24 hr 05/30/18 05/30/18 05/30/18 09:15 12:31 16:45 WBC RBC Hgb Hct MCV MCH MCHC RDW Plt Count MPV Sodium Potassium Chloride Carbon Dioxide Anion Gap BUN Creatinine Est GFR ( Amer) Est GFR (Non-Af Amer) BUN/Creatinine Ratio Glucose POC Glucose (mg/dL) 307 H Calcium Phosphorus Magnesium Fluid Volume 4 Fluid Color Colorless Fluid Appearance Clear Fluid WBC 1396 Fluid RBC 0 Fluid Tot Cell Count 100 Fluid Neutrophils 98 Fluid Monocytes 2 Fluid Cell Count Rvw By Random Vancomycin 13.5 05/30/18 05/30/18 05/31/18 17:19 20:51 00:20 WBC RBC Hgb Hct MCV MCH MCHC RDW Plt Count MPV Sodium Potassium Chloride Carbon Dioxide Anion Gap BUN Creatinine Est GFR ( Amer) Est GFR (Non-Af Amer) BUN/Creatinine Ratio Glucose POC Glucose (mg/dL) 224 H 292 H 238 H Calcium Phosphorus Magnesium Fluid Volume Fluid Color Fluid Appearance Fluid WBC Fluid RBC Fluid Tot Cell Count Fluid Neutrophils Fluid Monocytes Fluid Cell Count Rvw By Random Vancomycin 05/31/18 05/31/18 05/31/18 04:30 04:30 04:34 WBC 25.3 H RBC 3.03 L Hgb 8.2 L Hct 26 L MCV 85 MCH 27 MCHC 32 RDW 17 H Plt Count 516 H D MPV 9.7 Sodium 136 Potassium 2.8 L Chloride 93 L Carbon Dioxide 20 L Anion Gap 23 H BUN 46 H Creatinine 4.96 H Est GFR ( Amer) 11.8 Est GFR (Non-Af Amer) 9.8 BUN/Creatinine Ratio 9.3 Glucose 261 H POC Glucose (mg/dL) 243 H Calcium 9.0 Phosphorus 6.6 H Magnesium 1.9 Fluid Volume Fluid Color Fluid Appearance Fluid WBC Fluid RBC Fluid Tot Cell Count Fluid Neutrophils Fluid Monocytes Fluid Cell Count Rvw By Random Vancomycin 05/31/18 08:15 WBC RBC Hgb Hct MCV MCH MCHC RDW Plt Count MPV Sodium Potassium Chloride Carbon Dioxide Anion Gap BUN Creatinine Est GFR ( Amer) Est GFR (Non-Af Amer) BUN/Creatinine Ratio Glucose 175 H POC Glucose (mg/dL) Calcium Phosphorus Magnesium Fluid Volume Fluid Color Fluid Appearance Fluid WBC Fluid RBC Fluid Tot Cell Count Fluid Neutrophils Fluid Monocytes Fluid Cell Count Rvw By Random Vancomycin Imaging: Assessment: 67y F w/pmhx of ESRD on PD, Calciphylaxis of 3rd right finger 04/2018 , DM with retinal/renal involvement, PVD (on AC since)(R SFA stent, R brachial stent), h/o ANA in past, Mild LV systolic dysfunction, COPD on 5L home O2 ; Recent admission for acute on chronic hypoxic respiratory failure, GI bleed but colonoscopy deferred due to risk/benefit. On and off bleeding since then while on NOAC. [place] [facility] referred to [facility] but left AMA and readmitted to [facility] for increasing pain and rectal bleeding. She was admitted and started on sodium thiosulfate for more extensive calciphylaxis lesions in lower extremities. Palliatiave care/comfort measures were refused by family, though she is being managed for increasing pain. 05/22 with hypoxia/pulmonary edema. worsened hypoxia, started on NIV, then developed Asystolic cardiac arrest x3 episodes, made DNR by family. 05/24 developed coffee ground emesis, but able to follow commands, remains on high dose pressors. -Calciphylaxis -Acute on chronic hypoxic respiratory failure, intubated 05/23 -Asystolic Cardiac arrest 05/22 -Septic Shock -Sepsis 03/29 to Enterococcus Bacterial Peritonitis 05/22 -Upper GI bleed 05/24 -Klebsiella UTI 05/26 -Anemia DM ESRD on PD PVD Plan: Neuro- -remains sedated, on versed/propofol -plan to decrease for neuro checks, reassess -asp prec CVS- BP have been stable; some fluctuation -no arterial line due to severe calcification of vessels -shock improved from prior; off levophed -cont midodrine 5mg po q8h -ongoing PD -IV abx for Enterococcus peritonitis -off AC due to ongoing bleeding, limited options for AC Resp- -intubated 60% -CXR 05/30 with ett above rony, no clear large focal infiltrate noted -no arterial line; will obtain ABG though to assess resp status -maintain fio2>92% -asp prec, VAP bundle ID- tmax 100.4. wbc 25. -peritoneal cx with enterococcus+ prelim -blood culture with micrococcus 05/27, ?contaminant? second set negative -cont IV zosyn and IV vanco, pharmacy dosing GI- -NGt; nepro 30cc/hr -GI proph - PPI Renal- -ESRD; on PD continuous -K 2.8; mild metabolic acidosis -check ABG now -cont PD -give 40meq KCL -has not been on further NaThiosulfate infusions Heme- hg stable 7-8s -plt 500s -DVT proph SCD as able but last LE necrotis lesions; no AC due to bleeding Endo-Maintain BG<200, insulin protocol; incr lantus 15u bid; sliding scale; fs q4h Musculsk- pressure ulcer prophylaxis. Bedrest. Wounds- none Nutrition- Nepro TF DVT prophylaxis: - GI prophylaxis: - Central Line: PICC Arterial Line: no Rodriguez Cathetor: no Disposition: Patient requires Critical Care/ICU for septic shock, respiratory failure, cardiac arrest Patient clinical status: guarded, critical Code Status: DNR Total Critical Care time is 45 minutes, excluding procedures/teaching Jose R Horvath MD [employer] Programmer (Electronically Signed)
--- NOTE | 2018-05-31 11:49 | PN ---
PROGRESS NOTE: DATE OF SERVICE: HISTORY: Ms. Wright remains intubated and ventilated and on sedation. She was noted yesterday to h ave cloudy peritoneal fluid, cell counts and cultures were sent off. She is growing Enterococcus tawanna cium out of her belly. Her peritoneal fluid revealed 1396 cells, 98% of which were neutrophils. She was treated with intravenous vancomycin. There has really been no change in her areas of necrosis f rom her calciphylaxis. Her blood pressure remains quite low, currently 82/51. She is being supported with pressors. IMPRESSION: 1. Peritonitis. 2. Chronic renal failure. 3. Respiratory failure. 4. Peritonitis. She will be continuing on vancomycin. There will be question of moving her across to daptomycin. I have discussed the case link with Dr. Horvath. [id number]/[facility] #: [id number]
[2018-05-31] MEDS: KCL 20 MEQ/100 ML IVPREMIX* 20 MEQ/100 ML BAG IV SCH ×2 (13:19→15:23)
[2018-05-31] MEDS ORDERED: Vancomycin Random Level* NOTE FOLLOW UP PRN (19:00)
[2018-05-31] MEDS ORDERED: Insulin GLARGINE(*) 1 UNITS UNIT SUBCUT SCH (20:00)
[2018-05-31] MEDS ORDERED: Acetaminophen ADULT LIQ* 650 MG/20.3 ML UDC PO PRN (20:39)
--- NOTE | 2018-05-31 20:39 | PN ---
Progress Note - Progress Note Date of Service: 05/31/18 Note: Arterial Line Procedure Note Indication: invasive hemodynamic monitoring Diagnosis: shock, severe sepsis, acute hypoxic respiratory failure Performed by: Jose R Horvath MD Consent: (unable to reach HCP) Emergent [place] Protocol: Time-out was performed and the correct patient and site were verified - Prior labs/history was reviewed prior to procedure - Full sterile precautions with chlorhexidine/full drapes/gowns/gloves utilized - Right femoral artery visualized with US; good site above previous stent was found - Vessel accessed with return of pulsatile blood. One attempt was made to access vessel. A cathetor was threaded over wire into vessel. Good arterial waveform was observed on monitor. - Arterial Catheter was sutured to site; dressing applied to site. EBL <3 cc No immediate complications noted, patient tolerated procedure well. Jose R Horvath MD Adult Basic Education Teacher (Electronically Signed)
[2018-05-31] MEDS ORDERED: Norepinephrine 16MCG/ML IVPRE* 4,000 MCG/250 ML BAG IV SCH (21:00)
[2018-05-31] MEDS ORDERED: Vasopressin* 100 UNITS in D5W 250 ML BAG* 245 ML IVPB SCH (22:45)
--- NOTE | 2018-05-31 23:02 | PN ---
Progress Note - Progress Note Date of Service: 05/31/18 Note: Called to pt's bedside for hypotension. When arrived pt was in PEA. Ordered vasopressin was not yet given. shortly thereafter pt was in asystole. Pt's boyfriend (HCP) is on his way. Pt was DNR and resuscitation was not started. Time of 22:51. On exam pt had no spontaneous breathing, was unresponsive to all stimuli. there was no heart beat or breath sounds on asculation. Time of pronouncement 22 :51 PM on 05/31/18. Awaiting for HCP to decide about autopsy
--- NOTE | 2018-06-01 01:55 | DS ---
CC: Dr. Solis; Dr. Marrufo SUMMARY: DATE OF ADMISSION: 05/21/18 DATE OF : 05/31/18 TIME OF : 10:51 p.m. PRIMARY CARE PROVIDER: Dr. Solis. CAUSE OF : 1. Acute respiratory failure due to end-stage renal disease. 2. Calciphylaxis. HOSPITALIZATION COURSE: Margaux Wright was originally admitted on 04/30/18 for intractable leg pain that later on was diagnosed by a skin biopsy of calciphylaxis. During this admission, she was treated with sodium thiosulfate. On 05/19/18, she was transferred to [facility] from our facility due to noted right upper extremity arterial stenosis. 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 At that point, it was noted that the patient is not a candidate for vascular intervention. While at [facility], patient signed out against medical advice and she came into our hospital's ER for admission on 05/21/18. At this point, she complained of shortness of breath, intractable pain, and bleeding from her rectum. In fact, she was noted to have a GI bleed prior to her stay at [facility]. The source was suspected to be ischemic colitis due to the patient's known vascular disease, but her hemoglobin had been stable and the patient was not a good candidate for endoscopy. During her second hospital stay on 05/21/18, she had developed acute respiratory failure on 05/23/18 requiring intubation. Shortly thereafter, she had developed PEA and was resuscitated 3 times that day. At that point, the family was aware that the patient's prognosis is very poor and her healthcare proxy, who is her boyfriend , Moreno, made patient at that point do not resuscitate. For the next several days, she continued to be on pressors under the care of the collection development librarian. She was noted to have beginning of necrosis of the right finger and dusky fingers on the left hand. She continued to have diarrhea and on 05/31/18, she was also noted to have possible tarry stool again. We were unable to obtain blood pressures with a blood pressure cuff due to her calciphylaxis and gradual spread of the calciphylaxis to her blood vessels. Due to that, an A-line was placed on 05/31/[address] Horvath. Despite all those interventions, on 05/31/18, while on Levophed drip, the patient developed pulseless electrical activity. At that point resuscitation was not started as per the patient's boyfriend's wishes and patient's DNR order. The patient was pronounced at 10:51 p.m. on 05/31/18. The patient's boyfriend and her sister who had been present throughout most of the patient's hospital stay were present by the bedside, and the patient's boyfriend specifically, who is the healthcare proxy, requested no autopsy to be performed. Please note that this is a short summary of patient's very long and complicated hospitalization. Please refer to further medical records for details. TIME SPENT: Approximately 35 minutes was spent on the patient's discharge. [id number]/CPS #: [id number] MTDD
[2018-06-01 04:32] VITALS: BP 42/18
== END 2018-05-31 22:51 | disposition expired | DRG 246 ==
LOC: ED 19:45 → MED 05-21 00:22 → ICU 05-22 12:45
PROVIDERS: ADMIT Internal Medicine; ATTEND Internal Medicine
PROC: 0BH17EZ Insertion of Endotracheal Airway into Trachea, Via Natural or Artificial Opening (ICD-10-PCS; principal; 2018-05-23)
PROC: 5A1955Z Respiratory Ventilation, Greater than 96 Consecutive Hours (ICD-10-PCS; 2018-05-23)
DX: K55.9 Vascular disorder of intestine, unspecified (principal); N18.6 End stage renal disease; J96.21 Acute and chronic respiratory failure with hypoxia; E11.52 Type 2 diabetes mellitus with diabetic peripheral angiopathy with gangrene; I12.0 Hypertensive chronic kidney disease with stage 5 chronic kidney disease or end stage renal disease; E87.2 Acidosis; N25.81 Secondary hyperparathyroidism of renal origin; I96 Gangrene, not elsewhere classified; E11.22 Type 2 diabetes mellitus with diabetic chronic kidney disease; E83.59 Other disorders of calcium metabolism; I25.10 Atherosclerotic heart disease of native coronary artery without angina pectoris; E78.00 Pure hypercholesterolemia, unspecified; E11.51 Type 2 diabetes mellitus with diabetic peripheral angiopathy without gangrene; G47.30 Sleep apnea, unspecified; F17.210 Nicotine dependence, cigarettes, uncomplicated; D63.1 Anemia in chronic kidney disease; E78.5 Hyperlipidemia, unspecified; J44.9 Chronic obstructive pulmonary disease, unspecified; K21.9 Gastro-esophageal reflux disease without esophagitis; E11.43 Type 2 diabetes mellitus with diabetic autonomic (poly)neuropathy; K31.84 Gastroparesis; M16.0 Bilateral primary osteoarthritis of hip; M54.30 Sciatica, unspecified side; M51.26 Other intervertebral disc displacement, lumbar region; H54.62 Unqualified visual loss, left eye, normal vision right eye; E11.40 Type 2 diabetes mellitus with diabetic neuropathy, unspecified; F31.9 Bipolar disorder, unspecified; F41.9 Anxiety disorder, unspecified; Z85.820 Personal history of malignant melanoma of skin; Z90.01 Acquired absence of eye; Z86.74 Personal history of sudden cardiac arrest; Z88.8 Allergy status to other drugs, medicaments and biological substances; Z88.1 Allergy status to other antibiotic agents; Z86.718 Personal history of other venous thrombosis and embolism; Z87.442 Personal history of urinary calculi; I25.2 Old myocardial infarction; Z99.2 Dependence on renal dialysis; Z89.421 Acquired absence of other right toe(s); Z95.828 Presence of other vascular implants and grafts; Z86.14 Personal history of Methicillin resistant Staphylococcus aureus infection; I46.9 Cardiac arrest, cause unspecified
CPT/HCPCS: 36415; 36600; 71045; 74018; 80048; 80053; 80061; 80202; 81003; 81015; 82272; 82803; 82947; 83605; 83735; 84100; 84145; 85025; 85027; 85610; 86850; 86900; 86901; 86922; 87040; 87070; 87077; 87086; 87150; 87186; 87205; 87493; 89051; 90945; 93005; 93306; 94002; 94003; 94640; 94660; 99284; A9270-GY; C1751; G0257; J0171; J0780; J1170; J1756; J1815; J2060; J2250; J2270; J2405; J2543; J2704; J3010; J3370; J3475; J3480; J7060; P9040; P9047; Q5106